=== PATIENT | male | born 1940 | race Caucasian/White ===

== ENCOUNTER → 2017-05-16 | Outpatient (CLI) | payer MEDICARE ==
--- NOTE | 2017-05-16 14:39 | CT ---
EXAMINATION TYPE: CT chest wo con DATE OF EXAM: 05/16/2017 COMPARISON: Radiograph 05/09/2017 HISTORY: 76-year-old male complains of difficulty breathing. Pulmonary fibrosis. TECHNIQUE: Contiguous axial scanning of the chest without IV contrast. Coronal and sagittal reconstru ctions performed. CT DLP: 835 mGycm Automated exposure control for dose reduction was used. FINDINGS: Heterogeneous enlargement of the left lobe of the thyroid gland can be further assessed with thyroid ultrasound. Heart is normal size without pericardial effusion. Trace coronary vessel calcifications are present. Ectatic ascending aorta 3.9 cm. Mild atherosclerotic calcifications throughout the aorta with convent ional arch vessel branching anatomy. Ectatic upper descending thoracic aorta 3.4 cm. Large caliber to the main right and left pulmonary arteries 3.3 and 3.2 cm, respectively, suggests un derlying pulmonary arterial hypertension. Scattered nonenlarged mediastinal lymph nodes. No thoracic lymphadenopathy by CT size criteria. There is mild interstitial density especially in the subpleural regions of the lung bases and mild ba silar bronchiectasis. Strandy atelectasis or scarring is also present. Mild to moderate upper lung is seen. No consolidation or pleural effusion. No stacked honeycombing or dominant groundglass densities. Subcentimeter hypodensity central right hepatic dome. Some layering tiny calculi in the gallbladder. Tiny nonobstructive left renal calculi measuring up to 2 mm. Splenomegaly at 17.9 cm. Bones: Bridging anterior endplate spondylosis throughout the thoracic spine compatible with DISH. No osseous destructive process. IMPRESSION: 1. COPD WITH MILD TO MODERATE EMPHYSEMA. 2. MILD INTERSTITIAL FIBROTIC CHANGES AT THE LUNG BASES AND MINIMAL SCATTERED BASILAR BRONCHIECTASIS. FINDINGS MAY REPRESENT SEQUELA OF PRIOR EPISODES OF INFLAMMATION/INFECTION. 3. NO SPECIFIC CT FINDINGS OF UIP/IPF. 4. 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 5. TINY GALLSTONES, PUNCTATE NONOBSTRUCTIVE LEFT RENAL CALCULI, AND SPLENOMEGALY (17.9 CM).
== END | disposition home or self-care (01) ==
LOC: RADCTMAIN 11:50
PROVIDERS: ATTEND Internal Medicine
DX: J84.10 Pulmonary fibrosis, unspecified (principal); J43.9 Emphysema, unspecified; I27.20 Pulmonary hypertension, unspecified; I77.810 Thoracic aortic ectasia
CPT/HCPCS: 71250

== ENCOUNTER → 2017-11-11 | Outpatient (CLI) | payer MEDICARE ==
[2017-11-11 18:19] LABS: T4, Free (Free Thyroxine) 1.26 ng/dL (0.78-2.19)
--- NOTE | 2017-11-11 20:04 | CT ---
EXAMINATION TYPE: CT brain w con, CT iac w con DATE OF EXAM: 11/11/2017 COMPARISON: MRI brain April 26, 2011. MRI brain January 28, 2013. HISTORY: Hearing loss. Otalgia, right ear. CT DLP: 1242.07 (accession [id number]), 212.34 (accession [id number]) mGycm Automated exposure control for dose reduction was used. CONTRAST: CT scan of the brain and internal auditory canals are performed with IV Contrast, patient injected wi th 100 mL of Isovue M300. FINDINGS: There is no abnormal enhancing mass or midline shift identified. There is ventricular and sulcal prom inence.. There is low attenuation in the periventricular white matter. The globes are intact and the visualized sinuses are clear. The external auditory canals are patent bilaterally. Mastoid air cells show no persistent near compl ete opacification on the left and complete opacification on the right. The middle ear ossicles are u nremarkable on the left. There is evidence of suspicious surrounding soft tissue density to suggest cholesteatoma on the right. The stapes head is unusual increased dense appearance seen best on coron al image 44, has there been prior surgery at this level? The scutum is preserved bilaterally. The co chlea and the semicircular canals are symmetric and unremarkable. Vestibular aqueduct and internal c arotid canal appear unremarkable. Temporomandibular joints are maintained bilaterally. There is expansion and flattening of the left si ded mandibular condyle relative to the right side with slight anterior positioning. Visualized parana fabricio sinuses are grossly clear. Old fracture deformity medial wall left orbit is noted. Nasal septum r emains deviated to right of midline. No suspicious enhancement is seen. IMPRESSION: 1. Redemonstration of mild to moderate diffuse age-related cerebral atrophy and chronic small vessel ischemic change. No enhancing intraparenchymal mass is noted. 2. 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 Middle ear infection on the right is present, cannot exclude cholesteatoma. Suspect prior surgery at level of right-sided sta pes, correlate clinically.
--- NOTE | 2017-11-11 20:53 | CT ---
EXAMINATION TYPE: CT soft tissue neck w con DATE OF EXAM: 11/11/2017 HISTORY: Hearing loss. Otalgia, right ear. Neck pain. COMPARISON: NONE CT DLP: 713.83 mGycm. Automated Exposure Control for Dose Reduction was Utilized. TECHNIQUE: CT scan of the neck is performed with IV Contrast, patient injected with 100 mL of Isovue M300, axial images are obtained, coronal and sagittal reformatted images are reviewed. 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 Left thyroid is heterogeneous and enlarged. Visualized lung shows alveolar edema mild to moderate emphysematous diaz ge with diffuse groundglass opacity suggesting mild. Parotid/submandibular glands: No gross abnormality seen. Carotid/Vascular Structures: There is mild calcified plaque in right internal carotid artery shortly after bulb. No significant stenosis is evident. Mild calcified plaque supraclinoid segments is presen t bilaterally. There is codominant vertebrobasilar system. Osseous Structures: There is moderate to severe multilevel anterior spurring in the lower cervical sp ine. Multilevel uncovertebral and facet degenerative changes are present bilaterally. Posterior spur disc complex is effacing the anterior thecal sac at C6-C7 level. Other: No suspicious greater than 1 cm adenopathy is seen. Scattered subcentimeter lymph nodes are no bladimir bilaterally. IMPRESSION: No suspicious mass or adenopathy is noted in the neck.
== END | disposition home or self-care (01) ==
LOC: RADCTMAIN 17:22
PROVIDERS: ATTEND Otolaryngology
DX: G31.1 Senile degeneration of brain, not elsewhere classified (principal); I67.82 Cerebral ischemia; H66.91 Otitis media, unspecified, right ear; R22.1 Localized swelling, mass and lump, neck; E04.1 Nontoxic single thyroid nodule; R94.6 Abnormal results of thyroid function studies; R53.83 Other fatigue
CPT/HCPCS: 84439; 82565; 84443; 84520; 70481; 70491; 70460; 36415; Q9967

== ENCOUNTER → 2017-12-23 | Day surgery (SDC) | payer MEDICARE ==
[2017-12-19 11:12] VITALS: BMI 39.4
[~2017-12-23] MED LIST: LACTATED RINGERS 1,000 ML IV SCH; LIDOCAINE 1% 20 ML VIAL (10MG/ML) FOR IV START INTRADERMA PRN; PROPOFOL 10 MG/ML 20 ML VIAL IV ONE
[2017-12-23 09:27] VITALS: TEMP 96.6
--- NOTE | 2017-12-23 10:50 | P.GSHP ---
History of Present Illness H&P Date: 12/23/17 Chief Complaint: GERD, screening colonoscopy This a 77-year-old male referred from Dr. coon. Patient resents today for EGD and screening colonoscopy. He's had issues with GERD. Past Medical History Past Medical History: GERD/Reflux, Hyperlipidemia, Hypertension, Osteoarthritis (OA), Prostate Disorder Additional Past Medical History / Comment(s): tinnitus, hx kidney stones, History of Any Multi-Drug Resistant Organisms: None Reported Past Surgical History: Adenoidectomy, Ear Surgery, Heart Catheterization, Joint Replacement, Tonsillectomy Additional Past Surgical History / Comment(s): oral surgery, diana knee replacements, thyroid surgery, diana cataracts Past Anesthesia/Blood Transfusion Reactions: No Reported Reaction Smoking Status: Former smoker - Past Family History Father Family Medical History: Cancer, Congestive Heart Failure (CHF), Hypertension, Myocardial Infarction ([place]) Additional Family Medical History / Comment(s): AT AGE 84-[place] Mother Family Medical History: No Reported History Additional Family Medical History / Comment(s): MOM AT GE 60 MUSCULAR DYSTOPY Medications and Allergies Home Medications Medication Instructions Recorded Confirmed Type Aspirin 325 mg PO DAILY 10/30/13 12/23/17 History Cholecalciferol [Vitamin D3] 2,000 mg PO DAILY 10/30/13 12/23/17 History Losartan [Cozaar] 50 mg PO 1600 10/30/13 12/19/17 History Sertraline HCl [Zoloft] 200 mg PO 1600 10/30/13 12/23/17 History Simvastatin [Zocor] 10 mg PO 1600 10/30/13 12/23/17 History Temazepam [Restoril] 30 mg PO HS 10/30/13 12/23/17 History Esomeprazole Magnesium [NexIUM] 20 mg PO BID 11/25/13 12/19/17 History Multivitamins, Thera [Multivitamin] 1 tab PO DAILY 05/18/15 12/23/17 History Ibuprofen [Motrin] 600 mg PO Q6HR PRN #60 tab 05/19/15 12/23/17 Rx ? Prostate Med 1 tab PO DAILY 12/19/17 12/23/17 History Allergies Allergy/AdvReac Type Severity Reaction Status Date / Time acetaminophen Allergy Unknown Verified 12/19/17 11:03 [From Darvocet-N 100] hydrocodone bitartrate Allergy Anaphylaxis Verified 12/19/17 11:03 [From Vicodin] Penicillins Allergy Anaphylaxis Verified 12/19/17 11:03 propoxyphene napsylate Allergy Anaphylaxis Verified 12/19/17 11:03 [From Darvocet-N 100] tamsulosin HCl [From Flomax] Allergy Anaphylaxis Verified 12/19/17 11:03 Surgical - Exam Vital Signs Temp Pulse Resp BP Pulse Ox 96.6 F L 72 18 192/87 92 L 12/23/17 09:21 12/23/17 09:21 12/23/17 09:21 12/23/17 09:21 12/23/17 09:21 - General well developed, no distress - Eyes PERRL - ENT normal pinna - Neck no masses - Respiratory normal expansion - Cardiovascular Rhythm: regular - Abdomen Abdomen: soft, non tender Assessment and Plan Assessment: GERD. We'll perform EGD and screening colonoscopy.
[2017-12-23 11:12] VITALS: RESP 16
--- NOTE | 2017-12-23 11:21 | P.OP ---
Date of Procedure: 12/23/17 Preoperative Diagnosis: GERD Screening colonoscopy Postoperative Diagnosis: Antral gastritis No evidence of hiatal hernia No evidence of esophagitis Diverticulosis Procedure(s) Performed: EGD Colonoscopy Anesthesia: MAC Surgeon: Hardeep Montalvo Pathology: other (antrum) Description of Procedure: The patient was placed on the endoscopy table in the lateral position. He received IV sedation. The gastroscope was then placed oropharynx and passed in the esophagus and into the stomach. Scope was then placed through the pylorus. The first and second portion of the duodenum appeared normal. The scope was then brought back the antrum and this appeared mildly inflamed. A biopsy was performed. The scope was then retroflexed and the remainder of the stomach appeared normal. There is no evidence of a hiatal hernia. The GE junction was at 40 cm. The distal esophagus appeared normal. There is no evidence of esophagitis. The scope was then withdrawn and the proximal esophagus appeared normal. The scope was withdrawn for patient. Next digital rectal exam was performed the prostate was symmetric without nodules. There was no significant abnormalities. Flexible colonoscope was then placed patient anus and passed throughout the entire colon. The ileocecal valve was visualized.. The cecum, ascending and transverse colon appeared normal. In the descending and sigmoid colon there is moderate diverticulosis. The scope was then brought back the rectum and this appeared normal. Scope was withdrawn for patient.
[2017-12-23 11:31] VITALS: BP 155/87; PULSE 59
--- NOTE | 2017-12-23 14:49 | NM ---
Nuclear medicine hepatobiliary scan. HISTORY: Pain. DOSAGE: The patient received 2.9 micrograms of CCK and 3.3 mCi of Technetium 99m Choletec. FINDINGS: There is normal hepatic extraction. The gallbladder is seen by 20 minutes. There is bilia ry to bowel clearancenot seen at 60 minutes . Ejection fraction is 23%. IMPRESSION: 1. Delayed biliary to bowel clearance is nonspecific. 2. Ejection fraction of only 23% correlate for biliary dyskinesia.
== END | disposition home or self-care (01) ==
LOC: ORWHC2ENDO 09:07
PROVIDERS: ATTEND Surgery
DX: Z12.11 Encounter for screening for malignant neoplasm of colon (principal); K57.30 Diverticulosis of large intestine without perforation or abscess without bleeding; K29.50 Unspecified chronic gastritis without bleeding; K21.9 Gastro-esophageal reflux disease without esophagitis; E78.5 Hyperlipidemia, unspecified; I10 Essential (primary) hypertension; M19.90 Unspecified osteoarthritis, unspecified site; N42.9 Disorder of prostate, unspecified; Z87.442 Personal history of urinary calculi; H93.19 Tinnitus, unspecified ear; Z87.891 Personal history of nicotine dependence; Z79.82 Long term (current) use of aspirin; Z79.899 Other long term (current) drug therapy; Z88.5 Allergy status to narcotic agent; Z88.0 Allergy status to penicillin; Z88.8 Allergy status to other drugs, medicaments and biological substances
CPT/HCPCS: 88305; 78227; 43239; A9537; J2805; J2704; G0121; 45378

== ENCOUNTER 2018-01-17 07:51 | Day surgery (SDC) | payer MEDICARE ==
[2018-01-14 13:11] VITALS: BMI 40.4
[~2018-01-17 07:51] MED LIST changes: +CLINDAMYCIN 900 MG in DEXTROSE 5% IN WATER 50 ML IVPB ONE; +GENTAMICIN 520 MG in SODIUM CHLORIDE 0.9% 100 ML IVPB ONE; +HEPARIN SODIUM,PORCINE 5,000 UNIT/ML 1 ML VIAL SQ ONE; -LIDOCAINE 1% 20 ML VIAL (10MG/ML) FOR IV START INTRADERMA PRN; +ONDANSETRON 4 MG/2 ML VIAL IVP PRN; -PROPOFOL 10 MG/ML 20 ML VIAL IV ONE
[2018-01-17] MEDS ORDERED: LIDOCAINE 1% 20 ML VIAL (10MG/ML) FOR IV START INTRADERMA ONE (08:35)
--- NOTE | 2018-01-17 09:05 | P.GSHP ---
History of Present Illness H&P Date: 01/17/18 Chief Complaint: Right upper quadrant pain Cyst 77-year-old male referred from Dr. coon. Patient's has complaints of right upper quadrant pain. His recent HIDA scan shows a diminished ejection fraction consistent with chronic cholecystitis and biliary dysfunction. Past Medical History Past Medical History: GERD/Reflux, Hearing Disorder / Deafness, Hyperlipidemia, Hypertension, Osteoarthritis (OA), Prostate Disorder Additional Past Medical History / Comment(s): Tinnitus, Hx kidney stones, BPH, LUNG SCARRING. C/O STOMACH UPSET History of Any Multi-Drug Resistant Organisms: None Reported Past Surgical History: Adenoidectomy, Ear Surgery, Heart Catheterization, Joint Replacement, Tonsillectomy Additional Past Surgical History / Comment(s): oral surgery, diana knee replacements, thyroid surgery, diana cataracts. EGD, COLONOSCOPY 12/23/17 Past Anesthesia/Blood Transfusion Reactions: No Reported Reaction Smoking Status: Former smoker - Past Family History Father Family Medical History: Cancer, Congestive Heart Failure (CHF), Hypertension, Myocardial Infarction ([place]) Additional Family Medical History / Comment(s): AT AGE 84-[place] Mother Family Medical History: No Reported History Additional Family Medical History / Comment(s): MOM AT GE 60 MUSCULAR DYSTOPY Medications and Allergies Home Medications Medication Instructions Recorded Confirmed Type Aspirin 325 mg PO DAILY 10/30/13 01/17/18 History Losartan [Cozaar] 50 mg PO 1600 10/30/13 01/17/18 History Sertraline HCl [Zoloft] 200 mg PO 1600 10/30/13 01/17/18 History Simvastatin [Zocor] 10 mg PO 1600 10/30/13 01/17/18 History Temazepam [Restoril] 30 mg PO HS 10/30/13 01/17/18 History Esomeprazole Magnesium [NexIUM] 20 mg PO BID 11/25/13 01/17/18 History Multivitamins, Thera [Multivitamin] 1 tab PO DAILY 05/18/15 01/17/18 History Ibuprofen [Motrin] 600 mg PO Q6HR PRN #60 tab 05/19/15 01/17/18 Rx Acetaminophen Tab [Tylenol Tab] 650 mg PO Q4H PRN 01/14/18 01/17/18 History Alfuzosin HCl [Uroxatral ER] 10 mg PO DAILY 01/14/18 01/17/18 History Allergies Allergy/AdvReac Type Severity Reaction Status Date / Time hydrocodone bitartrate Allergy Anaphylaxis Verified 01/17/18 08:39 [From Vicodin] Penicillins Allergy Anaphylaxis Verified 01/17/18 08:39 propoxyphene napsylate Allergy Anaphylaxis Verified 01/17/18 08:39 [From Darvocet-N 100] tamsulosin HCl [From Flomax] Allergy Anaphylaxis Verified 01/17/18 08:39 Surgical - Exam Vital Signs Temp Pulse Resp BP Pulse Ox 98.0 F 63 16 159/72 96 01/17/18 08:13 01/17/18 08:13 01/17/18 08:13 01/17/18 08:13 01/17/18 08:13 - General well developed, no distress - Eyes PERRL - ENT normal pinna - Neck no masses - Respiratory normal expansion - Cardiovascular Rhythm: regular - Abdomen Abdomen: soft, non tender Assessment and Plan Assessment: Right upper quadrant pain Biliary dysfunction We'll perform laparoscopic cholecystectomy.
[2018-01-17] MEDS ORDERED: SUCCINYLCHOLINE CHLORIDE VIAL 200 MG/10 ML VIAL IV ONE (09:18)
[2018-01-17] MEDS ORDERED: GLYCOPYRROLATE 0.2 MG/ML 2 ML VIAL ONE (09:18)
[2018-01-17] MEDS ORDERED: MIDAZOLAM 2 MG/2 ML VIAL ONE (09:18)
[2018-01-17] MEDS ORDERED: LIDOCAINE 1% INJ 10MG/ML (20 ML MDV) ONE (09:18)
[2018-01-17] MEDS ORDERED: fentaNYL (PF) 50 MCG/ML 2 ML AMP ONE (09:18)
[2018-01-17] MEDS ORDERED: ROCURONIUM BROMIDE 10 MG/ML 10 ML VIAL IV ONE (09:18)
[2018-01-17] MEDS ORDERED: NEOSTIGMINE 1 MG/ML 10 ML VIAL ONE (09:18)
[2018-01-17] MEDS ORDERED: PROPOFOL 10 MG/ML 20 ML VIAL IV ONE (09:18)
[2018-01-17] MEDS ORDERED: BUPIVACAIN-EPI 0.25%-1:200,000 30 ML VIAL SQ ONE (09:42)
--- NOTE | 2018-01-17 10:01 | P.OP ---
Date of Procedure: 01/17/18 Preoperative Diagnosis: Cholecystitis Postoperative Diagnosis: Cholecystitis Procedure(s) Performed: Laparoscopic cholecystectomy Anesthesia: JED Surgeon: Hardeep Montalvo Estimated Blood Loss (ml): 5 Pathology: other (Gallbladder) Condition: stable Disposition: PACU Description of Procedure: The patient was placed on the operating table. The patient received a general endotracheal tube anesthesia. The patients abdomen was prepped and draped in the usual sterile fashion. Through an infraumbilical stab incision, the fascia of the anterior abdominal wall was grasped with a pair of Kochers and then the Veress needle was placed in the peritoneal cavity. Position of the Veress needle was confirmed with positive drop test. The abdomen was then insufflated. After adequate insufflation, the 10 mm trocar was placed in the peritoneal cavity. Following this the laparoscope was placed in the peritoneal cavity. The patient was placed in the head-up, right side up position and then a 5 mm trocar was placed in the right lateral and right subcostal position under direct visualization. A 8 mm trocar was placed in the epigastric position. The gallbladder was grasped in the fundus and infundibulum. Traction on the gallbladder was placed in the lateral and the cephalad positions. The triangle of Calot was visualized.. The cystic duct was bluntly dissected until the union of the cystic duct and common bile duct was seen. The cystic duct was then divided and sealed with the Harmonic scissors. A PDS Endoloop was then placed throughout the cystic duct stump. The cystic artery divided and sealed with the Harmonic scissors. The gallbladder was then removed from the liver bed using Harmonic scissors. The gallbladder was then extracted through the epigastric port site. Operative field was checked for any bleeding spots and Harmonic scissors was used to coagulate the liver bed. The abdomen was irrigated. The trocars were removed. The skin was closed using interrupted 3-0 Vicryl suture. Dermabond dressing were applied. The patient tolerated the procedure well.
[2018-01-17 10:17] VITALS: TEMP 97.9
[2018-01-17] MEDS: MORPHINE SULFATE 2 MG/ML SYRINGE IV PRN ×4 (10:23→11:12)
[2018-01-17 10:48] VITALS: RESP 16
[2018-01-17] MEDS ORDERED: LACTATED RINGERS 1,000 ML IV ONE ×2 (10:52)
[2018-01-17 12:03] VITALS: BP 120/53; PULSE 60
== END 2018-01-17 13:05 | disposition home or self-care (01) ==
LOC: OR 07:51
PROVIDERS: ATTEND Surgery
DX: K80.10 Calculus of gallbladder with chronic cholecystitis without obstruction (principal); E78.5 Hyperlipidemia, unspecified; H91.90 Unspecified hearing loss, unspecified ear; I10 Essential (primary) hypertension; K21.9 Gastro-esophageal reflux disease without esophagitis; K82.8 Other specified diseases of gallbladder; M19.90 Unspecified osteoarthritis, unspecified site; N40.0 Benign prostatic hyperplasia without lower urinary tract symptoms; Z79.82 Long term (current) use of aspirin; Z87.442 Personal history of urinary calculi; Z87.891 Personal history of nicotine dependence; Z88.0 Allergy status to penicillin; Z88.5 Allergy status to narcotic agent; Z96.653 Presence of artificial knee joint, bilateral; Z80.9 Family history of malignant neoplasm, unspecified; Z82.49 Family history of ischemic heart disease and other diseases of the circulatory system; Z79.1 Long term (current) use of non-steroidal anti-inflammatories (NSAID); Z79.899 Other long term (current) drug therapy
CPT/HCPCS: 88304; 47562; J2250; J0330; J1644; J2710; J2405; J2001; J3010; J1580; J2270; J2704

== ENCOUNTER 2018-06-10 18:46 | Inpatient (IN) | payer MEDICARE ==
[2018-06-10] MEDS ORDERED: SODIUM CHLORIDE 0.9% 1,000 ML IV STA (18:58)
[2018-06-10] MEDS ORDERED: IPRATROPIUM-ALBUTEROL 3 ML NEB INHALATION STA (18:58)
[2018-06-10] MEDS ORDERED: DILTIAZEM DRIP BOLUS FROM BAG 1 MG SOLN IV ONE ×2 (19:22→20:15)
--- NOTE | 2018-06-10 19:26 | ED ---
SOB HPI - General Chief Complaint: Shortness of Breath Stated Complaint: Sob Time Seen by Provider: 06/10/18 18:57 Source: patient, RN notes reviewed, old records reviewed Mode of arrival: ambulatory Limitations: no limitations - History of Present Illness Initial Comments: This is a 77-year-old male the ER for evaluation presents today for evaluation o f shortness of breath. Patient is had increasing shortness of breath for a few days now. Now found to have elevated heart rate. Patient has no pain. No fevers. No recent change in medications. Patient states his shortness breath is increased., No recent change in medications MD Complaint: shortness of breath, cough, anxiety -: minutes(s) Radiation: other (No pain) Severity: mild Consistency: constant Improves With: oxygen Worsens With: lying flat Known History Of: COPD, congestive heart failure Associated Symptoms: palpitations - Related Data Home Medications Medication Instructions Recorded Confirmed Losartan [Cozaar] 50 mg PO DAILY 10/30/13 06/10/18 Sertraline HCl [Zoloft] 200 mg PO DAILY 10/30/13 06/10/18 Simvastatin [Zocor] 10 mg PO DAILY 10/30/13 06/10/18 Temazepam [Restoril] 30 mg PO HS 10/30/13 06/10/18 Alfuzosin HCl [Uroxatral ER] 10 mg PO DAILY 01/14/18 06/10/18 ALPRAZolam [Xanax] 0.5 mg PO DAILY 06/10/18 06/10/18 Aspirin [[place] Aspirin EC] 81 mg PO DAILY 06/10/18 06/10/18 Cholecalciferol [Vitamin D3] 1,000 unit PO DAILY 06/10/18 06/10/18 Mirabegron [Myrbetriq] 25 mg PO DAILY 06/10/18 06/10/18 Previous Rx's Medication Instructions Recorded Ibuprofen [Motrin] 600 mg PO Q6HR PRN #60 tab 05/19/15 Allergies Allergy/AdvReac Type Severity Reaction Status Date / Time hydrocodone bitartrate Allergy Anaphylaxis Verified 06/10/18 19:19 [From Vicodin] Penicillins Allergy Anaphylaxis Verified 06/10/18 19:19 propoxyphene napsylate Allergy Anaphylaxis Verified 06/10/18 19:19 [From Darvocet-N 100] tamsulosin HCl [From Flomax] Allergy Anaphylaxis Verified 06/10/18 19:19 Review of Systems ROS Statement: Those systems with pertinent positive or pertinent negative responses have been documented in the HPI. ROS Other: All systems not noted in ROS Statement are negative. Past Medical History Past Medical History: GERD/Reflux, Hearing Disorder / Deafness, Hyperlipidemia, Hypertension, Osteoarthritis (OA), Prostate Disorder Additional Past Medical History / Comment(s): Tinnitus, Hx kidney stones, BPH, LUNG SCARRING. C/O STOMACH UPSET History of Any Multi-Drug Resistant Organisms: None Reported Past Surgical History: Adenoidectomy, Ear Surgery, Heart Catheterization, Joint Replacement, Tonsillectomy Additional Past Surgical History / Comment(s): oral surgery, diana knee replacements, thyroid surgery, diana cataracts. EGD, COLONOSCOPY 12/23/17 Past Anesthesia/Blood Transfusion Reactions: No Reported Reaction Past Psychological History: Depression Smoking Status: Former smoker Past Alcohol Use History: None Reported Past Drug Use History: None Reported - Past Family History Father Family Medical History: Cancer, Congestive Heart Failure (CHF), Hypertension, Myocardial Infarction ([place]) Additional Family Medical History / Comment(s): AT AGE 84-[place] Mother Family Medical History: No Reported History Additional Family Medical History / Comment(s): MOM AT GE 60 MUSCULAR DYSTOPY General Exam Limitations: no limitations General appearance: alert, in no apparent distress, anxious Head exam: Present: atraumatic, normocephalic, normal inspection Eye exam: Present: normal appearance, PERRL, EOMI. Absent: scleral icterus, conjunctival injection, periorbital swelling ENT exam: Present: normal exam, mucous membranes moist Neck exam: Present: normal inspection. Absent: tenderness, meningismus, lymphadenopathy Respiratory exam: Present: normal lung sounds bilaterally. Absent: respiratory distress, wheezes, rales, rhonchi, stridor Cardiovascular Exam: Present: tachycardia, irregular rhythm, normal heart sounds. Absent: systolic murmur, diastolic murmur, rubs, gallop, clicks GI/Abdominal exam: Present: soft, normal bowel sounds. Absent: distended, tenderness, guarding, rebound, rigid Extremities exam: Present: normal inspection, full ROM, normal capillary refill. Absent: tenderness, pedal edema, joint swelling, calf tenderness Back exam: Present: normal inspection Neurological exam: Present: alert, oriented X3, CN II-XII intact Psychiatric exam: Present: normal affect, normal mood Skin exam: Present: warm, dry, intact, normal color. Absent: rash Course Vital Signs 06/10/18 06/10/18 06/10/18 18:48 18:58 19:19 Temperature 97.9 F Pulse Rate 68 121 H Respiratory 18 18 Rate Blood Pressure 138/63 O2 Sat by Pulse 96 Oximetry 06/10/18 06/10/18 19:28 20:17 Temperature Pulse Rate 128 H 107 H Respiratory 22 Rate Blood Pressure 125/71 O2 Sat by Pulse 95 Oximetry - Reevaluation(s) Reevaluation #1: 06/10/18 20:00 Medical record is reviewed Reevaluation #2: 06/10/18 20:00 Patient is improving with heart rate control and breathing treatment Medical Decision Making - Medical Decision Making 77 male the ER for evaluation. Patient does say for evaluation shortness of breath, patient does have atrial fibrillation xwith RVR CHF, will admit for cardiology evaluation as well as Lasix - Lab Data Result diagrams: 06/10/18 19:14 06/10/18 19:14 Lab Results 06/10/18 06/10/18 06/10/18 Range/Units 19:14 19:14 19:14 WBC 4.8 (3.8-10.6) k/uL RBC 4.18 L (4.30-5.90) m/uL Hgb 13.4 (13.0-17.5) gm/dL Hct 42.2 (39.0-53.0) % MCV 101.0 H (80.0-100.0) fL MCH 31.9 (25.0-35.0) pg MCHC 31.6 (31.0-37.0) g/dL RDW 14.7 (11.5-15.5) % Plt Count 114 L (150-450) k/uL Neutrophils % (Manual) 70 % Lymphocytes % (Manual) 22 % Monocytes % (Manual) 7 % Eosinophils % (Manual) 1 % Neutrophils # (Manual) 3.36 (1.3-7.7) k/uL Lymphocytes # (Manual) 1.06 (1.0-4.8) k/uL Monocytes # (Manual) 0.34 (0-1.0) k/uL Eosinophils # (Manual) 0.05 (0-0.7) k/uL Nucleated RBCs 0 (0-0) /100 WBC Manual Slide Review Performed Large Platelets Present Hypochromasia Slight Macrocytosis Slight PT (9.0-12.0) sec INR (<1.2) APTT (22.0-30.0) sec Sodium 140 (137-145) mmol/L Potassium 4.7 (3.5-5.1) mmol/L Chloride 110 H (98-107) mmol/L Carbon Dioxide 21 L (22-30) mmol/L Anion Gap 9 mmol/L BUN 22 H (9-20) mg/dL Creatinine 0.99 (0.66-1.25) mg/dL Est GFR (CKD-EPI)AfAm 85 (>60 ml/min/1.73 sqM) Est GFR (CKD-EPI)NonAf 74 (>60 ml/min/1.73 sqM) Glucose 95 (74-99) mg/dL Calcium 9.4 (8.4-10.2) mg/dL Magnesium 1.6 (1.6-2.3) mg/dL Total Bilirubin 1.4 H (0.2-1.3) mg/dL AST 28 (17-59) U/L ALT 30 (21-72) U/L Alkaline Phosphatase 54 (38-126) U/L Troponin I (0.000-0.034) ng/mL NT-Pro-B Natriuret Pep 2820 pg/mL Total Protein 6.5 (6.3-8.2) g/dL Albumin 4.4 (3.5-5.0) g/dL 06/10/18 06/10/18 Range/Units 19:14 19:14 WBC (3.8-10.6) k/uL RBC (4.30-5.90) m/uL Hgb (13.0-17.5) gm/dL Hct (39.0-53.0) % MCV (80.0-100.0) fL MCH (25.0-35.0) pg MCHC (31.0-37.0) g/dL RDW (11.5-15.5) % Plt Count (150-450) k/uL Neutrophils % (Manual) % Lymphocytes % (Manual) % Monocytes % (Manual) % Eosinophils % (Manual) % Neutrophils # (Manual) (1.3-7.7) k/uL Lymphocytes # (Manual) (1.0-4.8) k/uL Monocytes # (Manual) (0-1.0) k/uL Eosinophils # (Manual) (0-0.7) k/uL Nucleated RBCs (0-0) /100 WBC Manual Slide Review Large Platelets Hypochromasia Macrocytosis PT 10.7 (9.0-12.0) sec INR 1.0 (<1.2) APTT 23.3 (22.0-30.0) sec Sodium (137-145) mmol/L Potassium (3.5-5.1) mmol/L Chloride (98-107) mmol/L Carbon Dioxide (22-30) mmol/L Anion Gap mmol/L BUN (9-20) mg/dL Creatinine (0.66-1.25) mg/dL Est GFR (CKD-EPI)AfAm (>60 ml/min/1.73 sqM) Est GFR (CKD-EPI)NonAf (>60 ml/min/1.73 sqM) Glucose (74-99) mg/dL Calcium (8.4-10.2) mg/dL Magnesium (1.6-2.3) mg/dL Total Bilirubin (0.2-1.3) mg/dL AST (17-59) U/L ALT (21-72) U/L Alkaline Phosphatase (38-126) U/L Troponin I 0.012 (0.000-0.034) ng/mL NT-Pro-B Natriuret Pep pg/mL Total Protein (6.3-8.2) g/dL Albumin (3.5-5.0) g/dL - EKG Data -: EKG Interpreted by Me (EKG shows A. fib with RVR rate 121, QRS 100, QTC is 423) - Radiology Data Radiology results: report reviewed (CXR positive for CHF), image reviewed Critical Care Time Critical Care Time: Yes Total Critical Care Time: 31 Disposition Clinical Impression: Atrial fibrillation with RVR, Acute pulmonary edema, Congestive heart failure Disposition: ADMITTED IP TO THIS HOSP Condition: Fair Is patient prescribed a controlled substance at d/c from ED?: No Referrals: Juan C Beltran MD [Primary Care Provider] - 1-2 days
[2018-06-10] MEDS ORDERED: DILTIAZEM 125 MG in SODIUM CHLORIDE 0.9% 100 ML IV SCH (19:30)
[2018-06-10 19:37] LABS: Albumin 4.4 g/dL (3.5-5.0); Calcium 9.4 mg/dL (8.4-10.2); Magnesium 1.6 mg/dL (1.6-2.3); Potassium 4.7 mmol/L (3.5-5.1); Total Bilirubin 1.4 mg/dL (0.2-1.3); Total Protein 6.5 g/dL (6.3-8.2)
[2018-06-10 19:48] LABS: HCT 42.2 % (39.0-53.0); HGB 13.4 gm/dL (13.0-17.5); Hypochromasia Slight; MCH 31.9 pg (25.0-35.0); MCHC 31.6 g/dL (31.0-37.0); Macrocytosis Slight; Mean Platelet Volume 9.3; Platelet Count 114 k/uL (150-450); RBC 4.18 m/uL (4.30-5.90); RDW 14.7 % (11.5-15.5); WBC 4.8 k/uL (3.8-10.6)
[2018-06-10 19:52] LABS: Partial Thromboplastin Time 23.3 sec (22.0-30.0); Prothrombin Time 10.7 sec (9.0-12.0)
--- NOTE | 2018-06-10 20:10 | XR ---
EXAMINATION: XR chest 2V DATE AND TIME: 06/10/2018 7:52 PM CLINICAL INDICATION: PHH; difficulty breathing TECHNIQUE: Departmental protocol COMPARISON: 10/30/2013 FINDINGS: The overlying soft tissues are prominent. Lungs are clear as seen. The pleural spaces are negative. The cardiac silhouette is moderately enlarged, similar to the prior study. The skeletal structures and soft tissues are negative for acute findings. IMPRESSION: NO DEFINITE ACUTE PROCESS.
[2018-06-10 20:11] LABS: Eosinophils # (M) 0.05 k/uL (0-0.7); Lymphocytes # (M) 1.06 k/uL (1.0-4.8); Monocytes # (M) 0.34 k/uL (0-1.0); Neutrophils # (M) 3.36 k/uL (1.3-7.7); Neutrophils % (M) 70 %; Nucleated Red Blood Cells 0 /100 WBC (0-0); Total Cells Counted 100
[2018-06-10 20:12] LABS: Large Platelets Present
[2018-06-10] MEDS ORDERED: NITROGLYCERIN SL TABS 0.4 MG TAB SUBLINGUAL PRN (20:33)
[2018-06-10] MEDS ORDERED: HEPARIN SODIUM,PORCINE 5,000 UNIT/ML 1 ML VIAL IV ONE (20:33)
[2018-06-10] MEDS ORDERED: HEPARIN SODIUM,PORCINE 5,000 UNIT/ML 1 ML VIAL IV PRN (20:33)
[2018-06-10] MEDS ORDERED: IPRATROPIUM-ALBUTEROL 3 ML NEB INHALATION PRN (20:34)
[2018-06-10] MEDS ORDERED: HEPARIN SOD,PORK IN 0.45% NACL 25,000 UNIT in 0.45% NACL 1 250ML.BAG IV SCH (20:45)
[2018-06-10 22:49] VITALS: BMI 39.8
[2018-06-10] MEDS: FUROSEMIDE 10 MG/ML 4 ML VIAL IV SCH (23:11)
[2018-06-11 06:06] LABS: Platelet Count 111 k/uL (150-450)
[2018-06-11 06:28] LABS: Cholesterol 109 mg/dL (<200); HDL Cholesterol 61 mg/dL (40-60); LDL Cholesterol,Calculated 39 mg/dL (0-99); Triglycerides 46 mg/dL (<150)
[2018-06-11] MEDS: SERTRALINE 100 MG TAB PO SCH (08:55)
[2018-06-11] MEDS: ASPIRIN 325 MG TAB PO SCH (08:55)
[2018-06-11] MEDS: CHOLECALCIFEROL 1,000 UNIT TAB PO SCH (08:55)
[2018-06-11] MEDS: ATORVASTATIN 10 MG TAB PO SCH (08:55)
[2018-06-11] MEDS: ALFUZOSIN HCL 10 MG PO SCH (08:56)
[2018-06-11] MEDS: ALPRAZolam 0.5 MG TAB PO SCH (08:56)
[2018-06-11] MEDS: FUROSEMIDE 10 MG/ML 4 ML VIAL IV SCH ×2 (08:56→19:56)
[2018-06-11] MEDS: Mirabegron [Myrbetriq] 25 MG PO SCH (08:57)
[2018-06-11] MEDS ORDERED: LOSARTAN 50 MG TAB PO SCH (09:00)
--- NOTE | 2018-06-11 10:37 | ECHOF ---
Referral Reason:chf MEASUREMENTS -------- HEIGHT: 182.9 cm WEIGHT: 144.2 kg BP: 144/90 RVIDd: 3.2 cm (< 3.3) IVSd: 1.3 cm (0.6 - 1.1) LVIDd: 5.9 cm (3.9 - 5.3) LVPWd: 1.7 cm (0.6 - 1.1) IVSs: 1.3 cm LVIDs: 6.1 cm LVPWs: 2.4 cm LA Diam: 5.4 cm (2.7 - 3.8) LAESV Index (A-L): 50.81 ml/m Ao Diam: 4.0 cm (2.0 - 3.7) AV Cusp: 1.6 cm (1.5 - 2.6) LA Diam: 5.2 cm (2.7 - 3.8) MV EXCURSION: 25.141 mm (> 18.000) MV EF SLOPE: 108 mm/s (70 - 150) EPSS: 2.2 cm MV E Vishnu: 0.72 m/s MV DecT: 220 ms MV A Vishnu: 0.02 m/s MV E/A Ratio: 29.91 AR PHT: 429 ms RAP: 5.00 mmHg RVSP: 40.35 mmHg FINDINGS -------- Atrial fibrillation. Morbid Obesity The left ventricular size is normal. Left ventricular wall thickness is normal. Overall left vent ricular systolic function is mildly impaired with, an EF between 45 - 50 %. The right ventricle is normal in size. The left atrium is markedly dilated. LA is severely dilated >40 ml/m2 The right atrial size is normal. Interatrial and interventricular septum intact. There is mild aortic regurgitation. Mild mitral annular calcification present. Mild mitral regurgitation is present. Mild tricuspid regurgitation present. There is mild pulmonary hypertension. The right ventricular systolic pressure, as measured by Doppler, is 40.35mmHg. Trace/mild (physiologic) pulmonic regurgitation. The aortic root size is normal. Normal inferior vena cava with normal inspiratory collapse consistent with estimated right atrial pre ssure of 5 mmHg. There is no pericardial effusion. CONCLUSIONS -------- 1. Atrial fibrillation. 2. Morbid Obesity 3. The left ventricular size is normal. 4. Left ventricular wall thickness is normal. 5. The right ventricle is normal in size. 6. The left atrium is markedly dilated. 7. LA is severely dilated >40 ml/m2 8. The right atrial size is normal. 9. Interatrial and interventricular septum intact. 10. There is mild aortic regurgitation. 11. Mild mitral annular calcification present. 12. Mild mitral regurgitation is present. 13. Mild tricuspid regurgitation present. 14. There is mild pulmonary hypertension. 15. The right ventricular systolic pressure, as measured by Doppler, is 40.35mmHg. 16. Trace/mild (physiologic) pulmonic regurgitation. 17. The aortic root size is normal. 18. Normal inferior vena cava with normal inspiratory collapse consistent with estimated right atrial pressure of 5 mmHg. 19. There is no pericardial effusion. POWER OPERATOR: Rabia Cifuentes RDCS
[2018-06-11] MEDS: METOPROLOL TARTRATE 50 MG TAB PO SCH ×2 (10:48→19:59)
[2018-06-11] MEDS: APIXABAN 5 MG TAB PO SCH ×2 (10:49→20:00)
--- NOTE | 2018-06-11 11:11 | CONS ---
CONSULTATION This is a 77-year-old gentleman with history of hypertension and dyslipidemia who presented to hospital complaining of sustained palpitations. The palpitations have been going on for the last 3 days. He came to the ER and was found to be in atrial fibrillation with rapid ventricular rate, rate for which he is admitted to hospital and Cardiology had been consulted. He denies chest pain, difficulty in breathing, dizziness, syncope, or focal neurological deficits. EKG shows atrial fibrillation with rapid ventricular rate. Three sets of cardiac enzymes are negative. TSH is normal. At the time of my evaluation this morning he remains in atrial fibrillation with controlled ventricular rate on intravenous Cardizem. PAST MEDICAL HISTORY: Past medical history is significant for hypertension and dyslipidemia. MEDICATIONS: Medications include Restoril, Zoloft, Cozaar, Zocor, aspirin, Xanax, and Uroxatral. ALLERGIES: Patient is allergic to VICODIN, PENICILLIN, DARVOCET, and FLOMAX. FAMILY HISTORY: Family history is negative for premature coronary artery disease. SOCIAL HISTORY: Social history is negative for smoking, EtOH abuse, or drug abuse. REVIEW OF SYSTEMS: HEENT is unremarkable. CARDIAC: As described above. RESPIRATORY: Negative. GI: Negative. GENITOURINARY: Negative. ALLERGY/IMMUNOLOGY: Negative. SKIN: Negative. MUSCULOSKELETAL: Significant for arthritis. PSYCHOSOCIAL: Negative. ENDOCRINE: Negative. HEMATOLOGICAL: Negative. DERM: Negative. CONSTITUTIONAL: Negative. ONCOLOGICAL: Negative. Rest of the system review is not relevant. PHYSICAL EXAMINATION: On exam, patient is afebrile. Heart rate is 83 beats per minute. Blood pressure is 140/77. Respiratory rate is 18. O2 sat is 92% on room air. There is no jugular venous distention. Carotid upstroke is normal. There is no bruit. Chest exam reveals good air entry bilaterally. There are no crackles or rhonchi. Heart exam reveals first and second heart sounds. Irregular rhythm. No murmur. Abdomen is soft. Examination of the extremities did not reveal any edema. Peripheral pulses are felt. LABS: Labs show that 3 sets of troponins are negative. LDL cholesterol is 39. Potassium is 4.7. Hemoglobin is 13.4. BNP is elevated at 2820. ASSESSMENT: 1. Persistent atrial fibrillation with rapid ventricular rate. 2. Elevated BNP. Patient is not in congestive heart failure. 3. Hypertension. 4. Dyslipidemia. PLAN: I am going to continue the IV heparin. If the patient is covered for Eliquis, he will be switched to Eliquis 5 b.i.d. Stop the Cardizem and start the patient on metoprolol 50 b.i.d. Once heart rate is well controlled, patient will be discharged home and he will need an outpatient GENARO and cardioversion after 3 weeks of anticoagulation. JASPAL / JAMI: [id number] /
--- NOTE | 2018-06-11 11:27 | P.HPIM ---
History of Present Illness H&P Date: 06/11/18 This is a 77-year-old male patient who presented to the hospital with complaints of shortness of breath for 3 days. Patient reports that he was very easily winded at home and progressively increased over this 3 days. Seated on admission showing atrial fibrillation with rapid ventricular response with premature ventricular rate or aberrantly conducted complexes. Patient's BNP elevated at 2820. Chest x-ray completed showing no definitive acute process. Patient does have a past medical history of GERD, hearing disorder, hyperlipidemia, hypertension, osteoarthritis, prostate disorder and ex-smoker. Patient was started on Cardizem and heparin drip. Troponins negative 3. Patient started on Lasix 40 mg every 12 hours. Cardiology and pulmonary services have been consulted. At this time patient's heart rate improved. Patient reports he feels much improved with decreased heart rate. Patient denies chest pain or shortness of breath at this time. Patient denies nausea vomiting or diarrhea. Patient denies any urinary burning or frequency. Review of Systems please refer to HPI otherwise unremarkable Past Medical History Past Medical History: GERD/Reflux, Hearing Disorder / Deafness, Hyperlipidemia, Hypertension, Osteoarthritis (OA), Prostate Disorder Additional Past Medical History / Comment(s): Tinnitus, Hx kidney stones, BPH, LUNG SCARRING. C/O STOMACH UPSET History of Any Multi-Drug Resistant Organisms: None Reported Past Surgical History: Adenoidectomy, Ear Surgery, Heart Catheterization, Joint Replacement, Tonsillectomy Additional Past Surgical History / Comment(s): oral surgery, diana knee replacem ents, thyroid surgery, diana cataracts. EGD, COLONOSCOPY 12/23/17 Past Anesthesia/Blood Transfusion Reactions: No Reported Reaction Past Psychological History: Depression Smoking Status: Former smoker Past Alcohol Use History: Daily Additional Past Alcohol Use History / Comment(s): quit smoking 1986, started smoking age 17. COUPLE BEERS DAILY Past Drug Use History: None Reported - Past Family History Father Family Medical History: Cancer, Congestive Heart Failure (CHF), Hypertension, Myocardial Infarction ([place]) Additional Family Medical History / Comment(s): AT AGE 84-[place] Mother Family Medical History: No Reported History Additional Family Medical History / Comment(s): MOM AT GE 60 MUSCULAR DYSTO PY Medications and Allergies Home Medications Medication Instructions Recorded Confirmed Type Losartan [Cozaar] 50 mg PO DAILY 10/30/13 06/10/18 History Sertraline HCl [Zoloft] 200 mg PO DAILY 10/30/13 06/10/18 History Simvastatin [Zocor] 10 mg PO DAILY 10/30/13 06/10/18 History Temazepam [Restoril] 30 mg PO HS 10/30/13 06/10/18 History Ibuprofen [Motrin] 600 mg PO Q6HR PRN #60 tab 05/19/15 06/10/18 Rx Alfuzosin HCl [Uroxatral ER] 10 mg PO DAILY 01/14/18 06/10/18 History ALPRAZolam [Xanax] 0.5 mg PO DAILY 06/10/18 06/10/18 History Aspirin [[place] Aspirin EC] 81 mg PO DAILY 06/10/18 06/10/18 History Cholecalciferol [Vitamin D3] 1,000 unit PO DAILY 06/10/18 06/10/18 History Mirabegron [Myrbetriq] 25 mg PO DAILY 06/10/18 06/10/18 History Allergies Allergy/AdvReac Type Severity Reaction Status Date / Time hydrocodone bitartrate Allergy Anaphylaxis Verified 06/10/18 19:19 [From Vicodin] Penicillins Allergy Anaphylaxis Verified 06/10/18 19:19 propoxyphene napsylate Allergy Anaphylaxis Verified 06/10/18 19:19 [From Darvocet-N 100] tamsulosin HCl [From Flomax] Allergy Anaphylaxis Verified 06/10/18 19:19 Physical Exam Vitals: Vital Signs Temp Pulse Pulse Resp BP BP Pulse Ox 06/11/18 07:40 98.5 F 83 20 142/77 92 L 06/11/18 04:27 97.5 F L 90 20 144/90 94 L 06/11/18 03:54 18 06/11/18 00:00 97.6 F 92 20 142/79 94 L 06/10/18 21:40 87 16 113/65 95 06/10/18 21:23 97.6 F 92 20 142/71 94 L 06/10/18 20:59 98 16 131/76 94 L 06/10/18 20:17 107 H 22 125/71 95 06/10/18 19:28 128 H 06/10/18 19:19 121 H 06/10/18 18:58 18 06/10/18 18:48 97.9 F 68 18 138/63 96 Intake and Output 06/10/18 06/11/18 06/11/18 22:59 06:59 14:59 Intake Total 69.507 120 Output Total 2375 1100 Balance -2303.344 -144 Intake: Intake, IV Titration 69.507 Amount Heparin Sod,Pork in 0.45% 69.507 NaCl 25,000 unit In 0.45 % NaCl 1 250ml.bag @ 6.89 UNITS/KG/HR 10.001 mls/ hr IV .Q24H [facility] Rx#: [id number] Oral 120 Output: Urine 2375 1100 Other: Voiding Method Toilet Weight 145.15 kg 144.5 kg Head normocephalic Neck supple Lungs clear to auscultation bilaterally no wheezing or crackles Heart irregular rate Abdomen is soft nontender nondistended positive bowel sounds no hepatosplenomeg michelet Extremities no edema Neuro alert and orientated to 3 Results CBC & Chem 7: 06/11/18 05:40 06/10/18 19:14 Labs: Abnormal Lab Results - Last 24 Hours (Table) 06/10/18 06/10/18 06/11/18 Range/Units 19:14 19:14 05:40 RBC 4.18 L (4.30-5.90) m/uL MCV 101.0 H (80.0-100.0) fL Plt Count 114 L 111 L (150-450) k/uL Chloride 110 H (98-107) mmol/L Carbon Dioxide 21 L (22-30) mmol/L BUN 22 H (9-20) mg/dL Total Bilirubin 1.4 H (0.2-1.3) mg/dL HDL Cholesterol (40-60) mg/dL 06/11/18 Range/Units 05:40 RBC (4.30-5.90) m/uL MCV (80.0-100.0) fL Plt Count (150-450) k/uL Chloride (98-107) mmol/L Carbon Dioxide (22-30) mmol/L BUN (9-20) mg/dL Total Bilirubin (0.2-1.3) mg/dL HDL Cholesterol 61 H (40-60) mg/dL Thrombosis Risk Factor Assmnt - Choose All That Apply Each Factor Represents 1 point: Obesity (BMI >25) Each Risk Factor Represents 3 Points: Age 75 years or older Thrombosis Risk Factor Assessment Total Risk Factor Score: 4 Thrombosis Risk Factor Assessment Level: Moderate Risk Assessment and Plan Assessment: 1. Shortness of breath likely related to A. fib with RVR. Chest x-ray completed showing no definitive acute process. Per my services have been consulted 2. Persistent atrial fibrillation with rapid ventricular response. Troponins negative 3 Patient started on Cardizem and heparin drip. Cardiology services consulted 2-D echo ordered. Eliquis has been initiated for anticoagulation. Metroprolol 50 mg twice a day added for rate control. Per cardiology patient will be discharged home and he will need an outpatient GENARO and cardioversion after 3 weeks of anticoagulation 3. Elevated BNP. Per cardiology patient is not in congestive heart failure. Patient is on IV Lasix 40 mg twice a day. 2D echo ordered 4. History of essential hypertension 5. Hyperlipidemia 6. Hearing disorder 7. History of GERD 8. History of osteoarthritis 9. History of prostate disorder DVT prophylaxis eliquis. GI prophylaxis Protonix Time with Patient: Greater than 30 (Greater than 60% of the total time spent in counseling and coordination of care. I performed an examination of the patient and discussed their management with the Nurse Practitioner. I have reviewed the Nurse Practitioner's notes and agree with the documented findings and plan of care)
[2018-06-11 11:55] LABS: Basophils % (A) 0 %; Eosinophils # (A) 0.1 k/uL (0-0.7); Eosinophils % (A) 2 %; HCT 40.4 % (39.0-53.0); HGB 12.8 gm/dL (13.0-17.5); Hypochromasia Moderate; Lymphocytes % (A) 20 %; MCH 32.3 pg (25.0-35.0); MCHC 31.6 g/dL (31.0-37.0); MCV 102.3 fL (80.0-100.0); Macrocytosis Slight; Mean Platelet Volume 9.5; Monocytes # (A) 0.3 k/uL (0-1.0); Monocytes % (A) 6 %; Neutrophils # (A) 3.4 k/uL (1.3-7.7); Neutrophils % (A) 70 %; Platelet Count 113 k/uL (150-450); RBC 3.95 m/uL (4.30-5.90); RDW 14.8 % (11.5-15.5); WBC 4.9 k/uL (3.8-10.6)
[2018-06-11 11:59] LABS: ALT 32 U/L (21-72); AST 19 U/L (17-59); Albumin 3.8 g/dL (3.5-5.0); Alkaline Phosphatase 56 U/L (38-126); Anion Gap 12 mmol/L; Blood Urea Nitrogen 21 mg/dL (9-20); Calcium 9.4 mg/dL (8.4-10.2); Carbon Dioxide 21 mmol/L (22-30); Chloride 109 mmol/L (98-107); Glucose 89 mg/dL (74-99); Sodium 142 mmol/L (137-145); Total Bilirubin 1.4 mg/dL (0.2-1.3); Total Protein 5.9 g/dL (6.3-8.2)
[2018-06-11] MEDS: IBUPROFEN 600 MG TAB PO PRN ×2 (12:36→20:00)
--- NOTE | 2018-06-11 16:59 | CONS ---
CONSULTATION This is a pulmonary/critical care consultation DATE OF SERVICE: 06/11/2018 REASON FOR CONSULTATION: Shortness of breath. HISTORY OF PRESENT ILLNESS: This is a very pleasant 77-year-old male who comes to the emergency room for evaluation of shortness of breath. He apparently has been having progressively worsening shortness of breath for a few days prior to admission. In addition, he was found to have elevated heart rate, he was actually found to have atrial fibrillation with RVR. He denies any chest pain or chest discomfort. There has been no recent changes in medications. Denies any fever, chills. Denies any nausea, vomiting or diarrhea. Denies any urinary complaints. He also denies any additional lung complaints such as cough, phlegm production, hemoptysis, etc. The patient does have a known history of COPD and congestive heart failure. MEDICATIONS: Reviewed. He is on Cozaar, Zoloft, Zocor, Restoril, Uroxatral, Xanax, aspirin, vitamin D3, Myrbetriq and Motrin. ALLERGIES: INCLUDE VICODIN, PENICILLIN, DARVOCET AND FLOMAX. MEDICAL HISTORY: Reviewed. It is positive for gastroesophageal reflux disease, deafness, hyperlipidemia, hypertension, DJD, CHF, possible COPD and BPH. He also suffers from tinnitus, kidney stones, and lung scarring. He has had previous asbestos exposure from working [place] the [place] and the patient was a previous tobacco user. SURGICAL HISTORY: Includes among other things adenoidectomy, ear surgery, heart catheterization, joint replacement, and tonsillectomy. Other surgery includes bilateral knee replacement, thyroid surgery, bilateral cataracts, EGD and colonoscopy. SOCIAL HISTORY: Positive for previous tobacco use. Denies any alcohol use or illicit drug use. FAMILY HISTORY: Positive for carcinoma, congestive heart failure, hypertension, myocardial infarction. There is also history of muscular dystrophy. REVIEW OF SYSTEMS: CONSTITUTIONAL: Negative. NEUROLOGIC: Negative. HEENT negative. CARDIOVASCULAR. Rapid heart rate, irregular heartbeat, palpitations. PULMONARY: Shortness of breath. GI: Negative. : negative. RHEUMATOLOGIC: Negative. IMMUNOLOGIC: Negative. ENDOCRINOLOGIC: Negative. PHYSICAL EXAMINATION: Current vital signs are reviewed. Temperature 98.5, heart rate 83, respiratory rate 20, blood pressure 142/77, mean 98, room air saturation between 92-94 percent. Appears in no acute distress. Not requiring any supplemental oxygen. HEENT examination is grossly unremarkable. Mucous membranes are moist. NECK: Supple. Full range of motion. No adenopathy or thyromegaly. Neck veins are flat. CARDIOVASCULAR EXAMINATION: Reveals irregular rhythm and rate. Heart rate about 83 beats per minute. It appears that he is in atrial fibrillation. Normal S1 and S2. No S3 or S4. No murmur noted. LUNGS: Bibasilar crackles. Breath sounds are diminished. No rhonchi. No wheezes. Breath sounds are equal bilaterally. ABDOMEN: Soft. Bowel sounds are heard. EXTREMITIES are intact. No cyanosis, clubbing, or edema. SKIN: Without rash. NEUROLOGIC: Examination is brief but nonfocal. X-RAY: In my opinion is consistent with some mild fluid overload. There is some interstitial edema, fluid in the minor fissure and small effusions. There is cardiomegaly. LABS: Reviewed. White count 4.9, hemoglobin 12.8, hematocrit 40.4, platelet count 113,000. PT, INR is normal. PTT is normal. Sodium and potassium normal. Chloride 109. CO2 21. BUN and creatinine were 21 and 0.95. Total bilirubin is 1.4. Total protein 5.9. Troponins were negative x3. N terminal proBNP 2820. TSH was 2.480. Medications are reviewed. The patient is currently on Lasix 40 mg IV push q.12 hours. DVT prophylaxis, updrafts and other usual medications. ASSESSMENT: 1. Shortness of breath, secondary to atrial fibrillation with RVR complicated by mild congestive heart failure. 2. History of chronic obstructive pulmonary disease from previous tobacco use, not currently active. 3. History of gastroesophageal reflux disease. 4. History of deafness. 5. History of hyperlipidemia. 6. History of hypertension. 7. Degenerative joint disease. 8. Benign prostatic hypertrophy. 9. History of kidney stones. 10.History of tinnitus. 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 PLAN: Patient looks relatively well. Medications reviewed. Primarily being managed by Cardiology for his atrial fibrillation, RVR. I believe he is in some mild heart failure. He is on Lasix 40 q12. We will continue to follow. Prognosis is guarded. COPD must be relatively mild and inactive at this time. MMODL / IJN: [id number] /
[2018-06-11] MEDS: TEMAZEPAM 30 MG CAP PO SCH (20:00)
[2018-06-12] MEDS: PANTOPRAZOLE 40 MG TABLET PO SCH (06:19)
[2018-06-12 07:18] LABS: Basophils % (A) 0 %; Eosinophils # (A) 0.2 k/uL (0-0.7); Eosinophils % (A) 2 %; HGB 13.9 gm/dL (13.0-17.5); Hypochromasia Slight; Lymphocytes # (A) 1.3 k/uL (1.0-4.8); Lymphocytes % (A) 20 %; MCH 32.9 pg (25.0-35.0); MCHC 32.3 g/dL (31.0-37.0); MCV 101.7 fL (80.0-100.0); Macrocytosis Slight; Mean Platelet Volume 8.7; Monocytes # (A) 0.4 k/uL (0-1.0); Monocytes % (A) 7 %; Neutrophils # (A) 4.3 k/uL (1.3-7.7); Neutrophils % (A) 69 %; Platelet Count 129 k/uL (150-450); RBC 4.23 m/uL (4.30-5.90); RDW 14.7 % (11.5-15.5); WBC 6.3 k/uL (3.8-10.6)
[2018-06-12 07:31] LABS: Albumin 4.3 g/dL (3.5-5.0); Calcium 9.3 mg/dL (8.4-10.2); Potassium 3.9 mmol/L (3.5-5.1); Total Bilirubin 1.6 mg/dL (0.2-1.3); Total Protein 6.4 g/dL (6.3-8.2)
[2018-06-12] MEDS: ALFUZOSIN HCL 10 MG PO SCH (08:04)
[2018-06-12] MEDS: CHOLECALCIFEROL 1,000 UNIT TAB PO SCH (08:15)
[2018-06-12] MEDS: DOCUSATE 100 MG CAP PO SCH (08:15)
[2018-06-12] MEDS: SERTRALINE 100 MG TAB PO SCH (08:15)
[2018-06-12] MEDS: ASPIRIN 325 MG TAB PO SCH (08:15)
[2018-06-12] MEDS: FUROSEMIDE 10 MG/ML 4 ML VIAL IV SCH (08:15)
[2018-06-12] MEDS: ALPRAZolam 0.5 MG TAB PO SCH (08:15)
[2018-06-12] MEDS: APIXABAN 5 MG TAB PO SCH ×2 (08:15→20:50)
[2018-06-12] MEDS: LOSARTAN 25 MG TAB PO SCH (08:16)
[2018-06-12] MEDS: Mirabegron [Myrbetriq] 25 MG PO SCH (08:16)
[2018-06-12] MEDS: METOPROLOL TARTRATE 50 MG TAB PO SCH ×2 (08:16→20:50)
[2018-06-12] MEDS: ATORVASTATIN 10 MG TAB PO SCH (08:16)
--- NOTE | 2018-06-12 10:25 | P.PN ---
Subjective Progress Note Date: 06/12/18 This is a 77-year-old male patient who presented to the hospital with complaints of shortness of breath for 3 days. Patient reports that he was very easily winded at home and progressively increased over this 3 days. Seated on admission showing atrial fibrillation with rapid ventricular response with pr emature ventricular rate or aberrantly conducted complexes. Patient's BNP elevated at 2820. Chest x-ray completed showing no definitive acute process. Patient does have a past medical history of GERD, hearing disorder, hyperlipidemia, hypertension, osteoarthritis, prostate disorder and ex-smoker. Patient was started on Cardizem and heparin drip. Troponins negative 3. Patient started on Lasix 40 mg every 12 hours. Cardiology and pulmonary services have been consulted. At this time patient's heart rate improved. Patient reports he feels much improved with decreased heart rate. Patient denies chest pain or shortness of breath at this time. Patient denies nausea vomiting or diarrhea. Patient denies any urinary burning or frequency. On 06/12/2018 patient is alert and oriented 3. Patient states he feels significantly improved. Patient's heart rate remains in A. fib but controlled at this time. Patient is on eliquis for anticoagulation. Patient remains on IV Lasix 40 mg every 12 hours. Patient denies chest pain or shortness of breath. Patient denies nausea vomiting or diarrhea. Patient denies any urinary burning or frequency. Objective - Vital Signs Vital signs: Vital Signs Temp 97.7 F 06/11/18 20:53 Pulse 95 06/12/18 04:51 Resp 18 06/12/18 04:51 BP 137/75 06/12/18 04:51 Pulse Ox 92 L 06/12/18 04:51 Intake & Output 06/11/18 06/12/18 06/12/18 18:59 06:59 18:59 Intake Total 360 360 240 Output Total 1100 850 Balance -740 -490 240 Weight 137.8 kg Intake: Oral 360 360 240 Output: Urine 1100 850 Other: # Voids 1 - Exam Head normocephalic Neck supple Lungs clear to auscultation bilaterally no wheezing or crackles Heart irregular rate Abdomen is soft nontender nondistended positive bowel sounds no hepatosplenomegaly Extremities no edema Neuro alert and orientated to 3 - Labs CBC & Chem 7: 06/12/18 06:12 06/12/18 06:12 Labs: Abnormal Lab Results - Last 24 Hours (Table) 06/11/18 06/11/18 06/12/18 Range/Units 06:33 06:33 06:12 RBC 3.95 L 4.23 L (4.30-5.90) m/uL Hgb 12.8 L (13.0-17.5) gm/dL MCV 102.3 H 101.7 H (80.0-100.0) fL Plt Count 113 L 129 L (150-450) k/uL Chloride 109 H (98-107) mmol/L Carbon Dioxide 21 L (22-30) mmol/L BUN 21 H (9-20) mg/dL Total Bilirubin 1.4 H (0.2-1.3) mg/dL Total Protein 5.9 L (6.3-8.2) g/dL 06/12/18 Range/Units 06:12 RBC (4.30-5.90) m/uL Hgb (13.0-17.5) gm/dL MCV (80.0-100.0) fL Plt Count (150-450) k/uL Chloride (98-107) mmol/L Carbon Dioxide (22-30) mmol/L BUN 27 H (9-20) mg/dL Total Bilirubin 1.6 H (0.2-1.3) mg/dL Total Protein (6.3-8.2) g/dL Assessment and Plan Assessment: 1. Shortness of breath likely related to A. fib with RVR. Chest x-ray completed showing no definitive acute process. 2. Persistent atrial fibrillation with rapid ventricular response. Troponins negative 3 Patient started on Cardizem and heparin drip. Cardiology services consulted 2-D echo ordered. Eliquis has been initiated for anticoagulation. Metroprolol 50 mg twice a day added for rate control. Per cardiology patient will be discharged home and he will need an outpatient GENARO and cardioversion after 3 weeks of anticoagulation 3. Mild systolic CHF exacerbation. elevated BNP 2820. Patient remains on IV Lasix 40 mg every 12 hours. 2-D echo completed showing an EF of 45-50% 4. History of essential hypertension 5. Hyperlipidemia 6. Hearing disorder 7. History of GERD 8. History of osteoarthritis 9. History of prostate disorder DVT prophylaxis eliquis. GI prophylaxis Protonix I performed an examination of the patient and discussed their management with the Nurse Practitioner. I have reviewed the Nurse Practitioner's notes and agree with the documented findings and plan of care
--- NOTE | 2018-06-12 11:19 | P.PN ---
Subjective Progress Note Date: 06/12/18 This is a pleasant 77-year-old gentleman with history of hypertension and hyperlipidemia who presented to the hospital with symptoms of palpitations. He was found to be in atrial fibrillation with a rapid ventricular response. Patient was initiated on Eliquis for anticoagulation, his heart rate this morn ing is in the 80 range. Echocardiogram with Doppler study was performed which revealed an ejection fraction of 45-50%. TSH level was normal. Objective - Vital Signs Vital signs: Vital Signs Temp 97.8 F 06/12/18 08:00 Pulse 77 06/12/18 08:00 Resp 18 06/12/18 08:00 BP 110/72 06/12/18 08:00 Pulse Ox 93 L 06/12/18 08:00 Intake & Output 06/11/18 06/12/18 06/12/18 18:59 06:59 18:59 Intake Total 360 360 240 Output Total 1100 850 Balance -740 -490 240 Weight 137.8 kg Intake: Oral 360 360 240 Output: Urine 1100 850 Other: # Voids 1 - Exam PHYSICAL EXAMINATION: GENERAL: 77-year-old gentleman in no acute distress at the time of my examination HEENT: Head is atraumatic, normocephalic. Pupils equal, round. Sclera anicteric. Conjunctiva are clear. Mucous membranes of the mouth are moist. Neck is supple. There is no elevated jugular venous pressure. No carotid bruit is heard. HEART EXAMINATION: Heart S1 and S2 irregularly irregular CHEST EXAMINATION: Lungs are clear to auscultation and precussion. No chest wall tenderness is noted on palpation or with deep breathing. ABDOMEN: Soft, nontender. Bowel sounds are heard. No organomegaly noted. EXTREMITIES: 2+ peripheral pulses with no evidence of peripheral edema and no calf tenderness noted. NEUROLOGIC patient is awake, alert and oriented 3 . . - Labs CBC & Chem 7: 06/12/18 06:12 06/12/18 06:12 Labs: Abnormal Lab Results - Last 24 Hours (Table) 06/11/18 06/11/18 06/12/18 Range/Units 06:33 06:33 06:12 RBC 3.95 L 4.23 L (4.30-5.90) m/uL Hgb 12.8 L (13.0-17.5) gm/dL MCV 102.3 H 101.7 H (80.0-100.0) fL Plt Count 113 L 129 L (150-450) k/uL Chloride 109 H (98-107) mmol/L Carbon Dioxide 21 L (22-30) mmol/L BUN 21 H (9-20) mg/dL Total Bilirubin 1.4 H (0.2-1.3) mg/dL Total Protein 5.9 L (6.3-8.2) g/dL 06/12/18 Range/Units 06:12 RBC (4.30-5.90) m/uL Hgb (13.0-17.5) gm/dL MCV (80.0-100.0) fL Plt Count (150-450) k/uL Chloride (98-107) mmol/L Carbon Dioxide (22-30) mmol/L BUN 27 H (9-20) mg/dL Total Bilirubin 1.6 H (0.2-1.3) mg/dL Total Protein (6.3-8.2) g/dL Assessment and Plan Plan: Assessment and plan #1 atrial fibrillation with rapid ventricular response, persistent, TSH is normal, on Eliquis for anticoagulation #2 history of COPD from prior nicotine use #3 hypertension #4 hyperlipidemia Plan From cardiology's perspective, patient may be able to be discharged home today, we will continue Eliquis 5 mg one tablet by mouth twice a day, discontinue aspirin, continue metoprolol 50 twice a day. Follow-up appointment will be made in the office post discharge. DNP note has been reviewed, I agree with a documented findings and plan of care. Patient was seen and examined.
--- NOTE | 2018-06-12 13:13 | P.PN ---
Subjective Progress Note Date: 06/12/18 Principal diagnosis: Shortness of breath, A. fib RVR, mild congestive heart failure, improving On 06/12/2016 patient seen in follow-up on selective care unit, he is resting comfortably in bed, is in no acute distress, he states his breathing is improving, complaints of chest pain. Echocardiogram was completed and revealed mildly impaired left ventricle systolic function with an EF between 45 and 50%. He was evidence of mild pulmonary hypertension with a right-sided pressures of 40 mmHg. He is on oral anticoagulation form of Eliquis, TSH was within normal limits. This morning patient's heart rate is controlled, is in the 80s. Lung sounds reveal minimal fine crackles at the bases, no rhonchi or wheezes. From pulmonary perspective patient is stable, his been on room air, vital signs have been stable. Objective - Vital Signs Vital signs: Vital Signs Temp 97.8 F 06/12/18 08:00 Pulse 77 06/12/18 08:00 Resp 18 06/12/18 08:00 BP 110/72 06/12/18 08:00 Pulse Ox 93 L 06/12/18 08:00 Intake & Output 06/11/18 06/12/18 06/12/18 18:59 06:59 18:59 Intake Total 360 360 240 Output Total 1100 850 300 Balance -740 -490 -60 Weight 137.8 kg Intake: Oral 360 360 240 Output: Urine 1100 850 300 Other: # Voids 1 # Bowel Movements 0 - Exam GENERAL EXAM: Alert, pleasant, 77-year-old white male on room air comfortable in no apparent distress. HEAD: Normocephalic/atraumatic. EYES: Normal reaction of pupils, equal size. Conjunctiva pink, sclera white. NOSE: Clear with pink turbinates. THROAT: No erythema or exudates. NECK: No masses, no JVD, no thyroid enlargement, no adenopathy. CHEST: No chest wall deformity. Symmetrical expansion. LUNGS: Equal air entry with minimal crackles, no wheeze, rhonchi or dullness. CVS: Regular rate and rhythm, normal S1 and S2, no gallops, no murmurs, no rubs ABDOMEN: Soft, nontender. No hepatosplenomegaly, normal bowel sounds, no guarding or rigidity. EXTREMITIES: No clubbing, no edema, no cyanosis, 2+ pulses and upper and lower extremities. MUSCULOSKELETAL: Muscle strength and tone normal. SPINE: No scoliosis or deformity SKIN: No rashes CENTRAL NERVOUS SYSTEM: Alert and oriented -3. No focal deficits, tone is normal in all 4 extremities. PSYCHIATRIC: Alert and oriented -3. Appropriate affect. Intact judgment and insight. - Labs CBC & Chem 7: 06/12/18 06:12 06/12/18 06:12 Labs: Abnormal Lab Results - Last 24 Hours (Table) 06/12/18 06/12/18 Range/Units 06:12 06:12 RBC 4.23 L (4.30-5.90) m/uL MCV 101.7 H (80.0-100.0) fL Plt Count 129 L (150-450) k/uL BUN 27 H (9-20) mg/dL Total Bilirubin 1.6 H (0.2-1.3) mg/dL Assessment and Plan Plan: Assessment: #1. Dyspnea related to A. fib RVR, and mild congestive heart failure with systolic dysfunction #2. History of COPD #3. History of nicotine abuse currently in remission #4. Hypertension, hyperlipidemia Plan: He is doing well, room pulse ox is 93%, no fever or chills, no complaints of chest pain. His been on started on oral anticoagulation for his A. fib, his heart rate is controlled. No acute events overnight, from pulmonary perspective patient is cleared for discharge I performed a history & physical examination of the patient and discussed their management with my nurse practitioner, Alona Torres. I reviewed the nurse practitioner's note and agree with the documented findings and plan of care. Lung sounds are positive for minimal fine rales at the bases. The findings and the impression was discussed with the patient. I attest to the documentation by the nurse practitioner. Time with Patient: Less than 30
[2018-06-12] MEDS: TEMAZEPAM 30 MG CAP PO SCH (20:50)
[2018-06-12] MEDS: ACETAMINOPHEN TAB 325 MG TAB PO PRN (23:11)
[2018-06-13 07:26] LABS: Basophils % (A) 1 %; Eosinophils # (A) 0.2 k/uL (0-0.7); Eosinophils % (A) 2 %; HCT 48.3 % (39.0-53.0); HGB 15.2 gm/dL (13.0-17.5); Hypochromasia Slight; Lymphocytes # (A) 1.5 k/uL (1.0-4.8); Lymphocytes % (A) 21 %; MCH 32.2 pg (25.0-35.0); MCHC 31.5 g/dL (31.0-37.0); MCV 102.3 fL (80.0-100.0); Macrocytosis Slight; Monocytes # (A) 0.6 k/uL (0-1.0); Monocytes % (A) 8 %; Neutrophils # (A) 4.9 k/uL (1.3-7.7); Neutrophils % (A) 66 %; Platelet Count 122 k/uL (150-450); RBC 4.72 m/uL (4.30-5.90); RDW 14.7 % (11.5-15.5); WBC 7.4 k/uL (3.8-10.6)
[2018-06-13 07:52] LABS: Albumin 4.3 g/dL (3.5-5.0); Calcium 9.6 mg/dL (8.4-10.2); Potassium 4.4 mmol/L (3.5-5.1); Total Bilirubin 1.5 mg/dL (0.2-1.3); Total Protein 6.4 g/dL (6.3-8.2)
[2018-06-13] MEDS: SERTRALINE 100 MG TAB PO SCH (08:41)
[2018-06-13] MEDS: DOCUSATE 100 MG CAP PO SCH (08:41)
[2018-06-13] MEDS: CHOLECALCIFEROL 1,000 UNIT TAB PO SCH (08:41)
[2018-06-13] MEDS: METOPROLOL TARTRATE 50 MG TAB PO SCH (08:41)
[2018-06-13] MEDS: PANTOPRAZOLE 40 MG TABLET PO SCH (08:42)
[2018-06-13] MEDS: ALFUZOSIN HCL 10 MG PO SCH (08:42)
[2018-06-13] MEDS: ALPRAZolam 0.5 MG TAB PO SCH (08:42)
[2018-06-13] MEDS: LOSARTAN 25 MG TAB PO SCH (08:42)
[2018-06-13] MEDS: APIXABAN 5 MG TAB PO SCH (08:42)
[2018-06-13] MEDS: Mirabegron [Myrbetriq] 25 MG PO SCH (08:43)
[2018-06-13] MEDS: ATORVASTATIN 10 MG TAB PO SCH (08:44)
[2018-06-13 11:07] VITALS: BP 121/84; PULSE 81; RESP 16; TEMP 97.2
--- NOTE | 2018-06-13 11:28 | P.DS ---
Providers Date of admission: 06/10/18 20:33 Expected date of discharge: 06/13/18 Attending physician: Juan C Beltrna Consults: 06/10/18 20:33 Consult Physician Urgent Consulting Provider: Brigitte Alvares Consult Reason/Comments: [email or web address] Do you want consulting provider notified?: Yes 06/10/18 20:44 Consult Physician Urgent Consulting Provider: Joana August Consult Reason/Comments: known Do you want consulting provider notified?: Yes Primary care physician: Juan C Ruby [facility] Course: Discharge diagnosis 1. Shortness of breath likely related to A. fib with RVR. Chest x-ray completed showing no definitive acute process. 2. Persistent atrial fibrillation with rapid ventricular response. Troponins negative 3 Patient started on Cardizem and heparin drip. Cardiology services consulted 2-D echo ordered. Eliquis has been initiated for anticoagulation. Metroprolol 50 mg twice a day added for rate control. Per cardiology patient will be discharged home and he will need an outpatient GENARO and cardioversion after 3 weeks of anticoagulation. Eliquis Metroprolol scrips per cardiology. Her rate controlled A. fib 3. Mild systolic CHF exacerbation. elevated BNP 2820. Patient remains on IV Lasix 40 mg every 12 hours. 2-D echo completed showing an EF of 45-50%. Patient will be DC'd on Lasix 20 mg daily. 4. History of essential hypertension 5. Hyperlipidemia 6. Hearing disorder 7. History of GERD 8. History of osteoarthritis Hospital course This is a 77-year-old male patient who presented to the hospital with complaints of shortness of breath for 3 days. Patient reports that he was very easily winded at home and progressively increased over this 3 days. Seated on admission showing atrial fibrillation with rapid ventricular response with premature ventricular rate or aberrantly conducted complexes. Patient's BNP elevated at 2820. Chest x-ray completed showing no definitive acute process. Patient does have a past medical history of GERD, hearing disorder, hyperlipidemia, hypertension, osteoarthritis, prostate disorder and ex-smoker. Patient was started on Cardizem and heparin drip. Troponins negative 3. Patient started on Lasix 40 mg every 12 hours. Cardiology and pulmonary services have been consulted. At this time patient's heart rate improved. Patient reports he feels much improved with decreased heart rate. Patient denies chest pain or shortness of breath at this time. Patient denies nausea vomiting or diarrhea. Patient denies any urinary burning or frequency. On 06/12/2018 patient is alert and oriented 3. Patient states he feels significantly improved. Patient's heart rate remains in A. fib but controlled at this time. Patient is on eliquis for anticoagulation. Patient remains on IV Lasix 40 mg every 12 hours. Patient denies chest pain or shortness of breath. Patient denies nausea vomiting or diarrhea. Patient denies any urinary burning or frequency. On 06/13/2018 patient is alert and oriented 3. Patient feels ready to go home. Patient has been cleared by cardiology and pulmonary services. Patient will be DC'd on eliquis ametropic blood per cardiology. Patient followed cardiology services for GENARO cardioversion. Patient also be discharged on Lasix 20 mg daily. CMP ordered for 3 days for monitoring of creatinine in bed. At this time patient denies chest pain or shortness breath. Patient denies nausea vomiting or diarrhea. Patient denies any urinary burning or frequency. I performed an examination of the patient and discussed their management with the Nurse Practitioner. I have reviewed the Nurse Practitioner's notes and agree with the documented findings and plan of care Patient Condition at Discharge: Stable Plan - Discharge Summary Discharge Rx Participant: No New Discharge Prescriptions: New Apixaban [Eliquis] 5 mg PO BID #60 tab Metoprolol Tartrate [Lopressor] 50 mg PO BID #60 tab Furosemide [Lasix] 20 mg PO DAILY 30 Days #30 tab Continue Temazepam [Restoril] 30 mg PO HS Simvastatin [Zocor] 10 mg PO DAILY Sertraline HCl [Zoloft] 200 mg PO DAILY Losartan [Cozaar] 50 mg PO DAILY Alfuzosin HCl [Uroxatral ER] 10 mg PO DAILY Mirabegron [Myrbetriq] 25 mg PO DAILY Cholecalciferol [Vitamin D3] 1,000 unit PO DAILY ALPRAZolam [Xanax] 0.5 mg PO DAILY Discontinued Ibuprofen [Motrin] 600 mg PO Q6HR PRN #60 tab PRN Reason: Pain Aspirin [[place] Aspirin EC] 81 mg PO DAILY Discharge Medication List Losartan [Cozaar] 50 mg PO DAILY 10/30/13 [History] Sertraline HCl [Zoloft] 200 mg PO DAILY 10/30/13 [History] Simvastatin [Zocor] 10 mg PO DAILY 10/30/13 [History] Temazepam [Restoril] 30 mg PO HS 10/30/13 [History] Alfuzosin HCl [Uroxatral ER] 10 mg PO DAILY 01/14/18 [History] ALPRAZolam [Xanax] 0.5 mg PO DAILY 06/10/18 [History] Cholecalciferol [Vitamin D3] 1,000 unit PO DAILY 06/10/18 [History] Mirabegron [Myrbetriq] 25 mg PO DAILY 06/10/18 [History] Apixaban [Eliquis] 5 mg PO BID #60 tab 06/12/18 [Rx] Metoprolol Tartrate [Lopressor] 50 mg PO BID #60 tab 06/12/18 [Rx] Furosemide [Lasix] 20 mg PO DAILY 30 Days #30 tab 06/13/18 [Rx] Follow up Appointment(s)/Referral(s): [facility], [NON-STAFF] - Juan C Beltran MD [Primary Care Provider] - 06/20/18 10:15 am (Saturday) iJmmy Gore MD [STAFF PHYSICIAN] - 1 Week Ambulatory/Diagnostic Orders: Comprehensive Metabolic Panel [LAB.AMB] Time Frame: 3 Days, Location: None Selected Activity/Diet/Wound Care/Special Instructions: pts monthly copay for Eliquis is $40 Activity as tolerated Diet heart healthy Patient to follow-up with cardiology services for further management of new onset A. fib DC'd on eliquis per cardiology Discharge Disposition: HOME SELF-CARE
[2018-06-13] MEDS: ACETAMINOPHEN TAB 325 MG TAB PO PRN (11:43)
--- NOTE | 2018-06-13 13:11 | PN ---
PROGRESS NOTE Nick is a 77-year-old gentleman who is admitted to hospital with palpitations, was found to be in atrial fibrillation with rapid ventricular rate. He is doing well this morning. PHYSICAL EXAMINATION: On exam, vital signs are stable. Heart rate is well controlled. Blood pressure is normal. Chest exam reveals good air entry bilaterally. Heart exam reveals first and second heart sounds. No gallop. Examination of extremities did not reveal edema. LABS: Labs show a hemoglobin of 15, platelet count is 172. Potassium is 4.4. Creatinine is 1.3. The patient is currently on Lipitor, Cozaar, Lopressor, Zoloft, Protonix, and Restoril. Allergic to VICODIN, PENICILLIN, DARVOCET, and FLOMAX. ASSESSMENT: Chronic atrial fibrillation with controlled ventricular rate. PLAN: Discharge patient home on Eliquis. Follow up with Cardiology in the office. MMODL / YARYN: [id number] /
== END 2018-06-13 13:02 | disposition home or self-care (01) | DRG 308 ==
LOC: EC 18:46 → 3SCARD 20:33
PROVIDERS: ADMIT Internal Medicine; ATTEND Internal Medicine
DX: I48.1 Persistent atrial fibrillation (principal); I50.23 Acute on chronic systolic (congestive) heart failure; E78.5 Hyperlipidemia, unspecified; F32.9 Major depressive disorder, single episode, unspecified; F41.9 Anxiety disorder, unspecified; H91.90 Unspecified hearing loss, unspecified ear; I11.0 Hypertensive heart disease with heart failure; I27.20 Pulmonary hypertension, unspecified; J44.9 Chronic obstructive pulmonary disease, unspecified; K21.9 Gastro-esophageal reflux disease without esophagitis; M19.90 Unspecified osteoarthritis, unspecified site; N40.0 Benign prostatic hyperplasia without lower urinary tract symptoms; Z77.090 Contact with and (suspected) exposure to asbestos; Z79.01 Long term (current) use of anticoagulants; Z79.82 Long term (current) use of aspirin; Z79.899 Other long term (current) drug therapy; Z82.49 Family history of ischemic heart disease and other diseases of the circulatory system; Z87.442 Personal history of urinary calculi; Z87.891 Personal history of nicotine dependence; Z96.653 Presence of artificial knee joint, bilateral
CPT/HCPCS: 36415; 71046; 80053; 80061; 83735; 83880; 84443; 84484; 85025; 85049; 85610; 85730; 93306; 94640; 96365; 96366; 96376; 99291

== ENCOUNTER 2018-06-14 18:46 | Emergency (ER) | payer MEDICARE ==
[2018-06-14 18:54] VITALS: TEMP 97.7
[2018-06-14] MEDS ORDERED: SODIUM CHLORIDE 0.9% 500 ML 500 ML IV ONE (19:21)
--- NOTE | 2018-06-14 19:25 | ED ---
General Adult HPI - General Chief complaint: Arrhythmia/Palpitations Stated complaint: LALI, chest pain Time Seen by Provider: 06/14/18 19:06 Source: patient Mode of arrival: ambulatory Limitations: no limitations - History of Present Illness Initial comments: Patient is a 77-year-old male presents with a chief complaint of lightheadedness and palpitations. Patient was recently discharged from the hospital where he was admitted for atrial fibrillation and congestive heart failure. He was started on new medications, in particular metoprolol, and Lasix on top of his previously prescribed losartan. Patient describes orthostatic symptoms. He states that he gets very lightheaded when he changes positions from lying or sitting to standing. Rest he denies symptoms. The patient denies any chest pain or shortness of breath currently. - Related Data Home Medications Medication Instructions Recorded Confirmed Losartan [Cozaar] 50 mg PO DAILY 10/30/13 06/14/18 Sertraline HCl [Zoloft] 200 mg PO DAILY 10/30/13 06/14/18 Simvastatin [Zocor] 10 mg PO DAILY 10/30/13 06/14/18 Temazepam [Restoril] 30 mg PO HS 10/30/13 06/14/18 Alfuzosin HCl [Uroxatral ER] 10 mg PO DAILY 01/14/18 06/14/18 ALPRAZolam [Xanax] 0.5 mg PO DAILY 06/10/18 06/14/18 Cholecalciferol [Vitamin D3] 1,000 unit PO DAILY 06/10/18 06/14/18 Mirabegron [Myrbetriq] 25 mg PO DAILY 06/10/18 06/14/18 Previous Rx's Medication Instructions Recorded Apixaban [Eliquis] 5 mg PO BID #60 tab 06/12/18 Metoprolol Tartrate [Lopressor] 50 mg PO BID #60 tab 06/12/18 Furosemide [Lasix] 20 mg PO DAILY 30 Days #30 tab 06/13/18 Allergies Allergy/AdvReac Type Severity Reaction Status Date / Time hydrocodone bitartrate Allergy Anaphylaxis Verified 06/14/18 19:01 [From Vicodin] Penicillins Allergy Anaphylaxis Verified 06/14/18 19:01 propoxyphene napsylate Allergy Anaphylaxis Verified 06/14/18 19:01 [From Darvocet-N 100] tamsulosin HCl [From Flomax] Allergy Anaphylaxis Verified 06/14/18 19:01 Review of Systems ROS Statement: Those systems with pertinent positive or pertinent negative responses have been documented in the HPI. ROS Other: All systems not noted in ROS Statement are negative. Cardiovascular: Reports: palpitations Past Medical History Past Medical History: GERD/Reflux, Hearing Disorder / Deafness, Hyperlipidemia, Hypertension, Osteoarthritis (OA), Prostate Disorder Additional Past Medical History / Comment(s): Tinnitus, Hx kidney stones, BPH, LUNG SCARRING. C/O STOMACH UPSET History of Any Multi-Drug Resistant Organisms: None Reported Past Surgical History: Adenoidectomy, Ear Surgery, Heart Catheterization, Joint Replacement, Tonsillectomy Additional Past Surgical History / Comment(s): oral surgery, diana knee replacements, thyroid surgery, diana cataracts. EGD, COLONOSCOPY 12/23/17 Past Anesthesia/Blood Transfusion Reactions: No Reported Reaction Past Psychological History: Depression Smoking Status: Former smoker Past Alcohol Use History: Daily Past Drug Use History: None Reported - Past Family History Father Family Medical History: Cancer, Congestive Heart Failure (CHF), Hypertension, Myocardial Infarction ([place]) Additional Family Medical History / Comment(s): AT AGE 84-[place] Mother Family Medical History: No Reported History Additional Family Medical History / Comment(s): MOM AT GE 60 MUSCULAR DYSTOPY General Exam Limitations: no limitations General appearance: alert, in no apparent distress Head exam: Present: atraumatic, normocephalic Eye exam: Present: normal appearance ENT exam: Present: normal exam Neck exam: Present: normal inspection Respiratory exam: Present: decreased breath sounds Cardiovascular Exam: Present: regular rate, normal rhythm GI/Abdominal exam: Present: soft. Absent: distended, tenderness Rectal exam: Present: deferred Extremities exam: Present: normal inspection Back exam: Present: normal inspection Neurological exam: Present: alert, oriented X3 Psychiatric exam: Present: normal affect, normal mood Skin exam: Present: warm, dry, intact Course Vital Signs 06/14/18 06/14/18 06/14/18 18:50 19:26 20:00 Temperature 97.7 F Pulse Rate 51 L 77 90 Respiratory 16 20 18 Rate Blood Pressure 95/70 110/66 101/62 O2 Sat by Pulse 94 L 96 96 Oximetry Medical Decision Making - Medical Decision Making Patient presents with chief complaint of orthostasis and palpitations. On initial evaluation, vital signs show hypotension and bradycardia with a rate in the 50s. EKG performed at 1903 shows atrial fibrillation with a rate of 94 bpm. Heart rate is irregular, segments are otherwise within normal limits, no acute ischemic signs. At this time, suspect hypotension secondary to new blood pressure medications. Patient will be evaluated patient and labs including cardiac enzymes, and a chest x-ray. Patient is likely intravascularly depleted, he will be given 500 mL of normal saline cautiously. current vasoactive medications include cozzar, alfuzosin, metoprolol, and lasix. 9:01 p.m. Case discussed with Dr. Parra who recommends discontinuation of the cozzar until follow up with Dr. Drew. continue other medications as prescribed. at this time, patient feeling improved, his BP has improved and he is stable for discharge. patient instructed to follow up with PCP and cardiology in 1-2 days, return to the ED if sx worsen or change. - Lab Data Result diagrams: 06/14/18 19:05 06/14/18 19:05 Lab Results 06/14/18 06/14/18 06/14/18 Range/Units 19:05 19:05 19:05 WBC 8.6 (3.8-10.6) k/uL RBC 4.75 (4.30-5.90) m/uL Hgb 15.3 (13.0-17.5) gm/dL Hct 47.6 (39.0-53.0) % MCV 100.2 H (80.0-100.0) fL MCH 32.2 (25.0-35.0) pg MCHC 32.2 (31.0-37.0) g/dL RDW 14.6 (11.5-15.5) % Plt Count 149 L (150-450) k/uL Neutrophils % 68 % Lymphocytes % 20 % Monocytes % 7 % Eosinophils % 3 % Basophils % 1 % Neutrophils # 5.8 (1.3-7.7) k/uL Lymphocytes # 1.7 (1.0-4.8) k/uL Monocytes # 0.6 (0-1.0) k/uL Eosinophils # 0.2 (0-0.7) k/uL Basophils # 0.1 (0-0.2) k/uL Macrocytosis Slight Sodium 141 (137-145) mmol/L Potassium 4.7 (3.5-5.1) mmol/L Chloride 107 (98-107) mmol/L Carbon Dioxide 22 (22-30) mmol/L Anion Gap 12 mmol/L BUN 46 H (9-20) mg/dL Creatinine 1.20 (0.66-1.25) mg/dL Est GFR (CKD-EPI)AfAm 68 (>60 ml/min/1.73 sqM) Est GFR (CKD-EPI)NonAf 59 (>60 ml/min/1.73 sqM) Glucose 86 (74-99) mg/dL Calcium 9.4 (8.4-10.2) mg/dL Troponin I (0.000-0.034) ng/mL NT-Pro-B Natriuret Pep 2330 pg/mL 06/14/18 Range/Units 19:05 WBC (3.8-10.6) k/uL RBC (4.30-5.90) m/uL Hgb (13.0-17.5) gm/dL Hct (39.0-53.0) % MCV (80.0-100.0) fL MCH (25.0-35.0) pg MCHC (31.0-37.0) g/dL RDW (11.5-15.5) % Plt Count (150-450) k/uL Neutrophils % % Lymphocytes % % Monocytes % % Eosinophils % % Basophils % % Neutrophils # (1.3-7.7) k/uL Lymphocytes # (1.0-4.8) k/uL Monocytes # (0-1.0) k/uL Eosinophils # (0-0.7) k/uL Basophils # (0-0.2) k/uL Macrocytosis Sodium (137-145) mmol/L Potassium (3.5-5.1) mmol/L Chloride (98-107) mmol/L Carbon Dioxide (22-30) mmol/L Anion Gap mmol/L BUN (9-20) mg/dL Creatinine (0.66-1.25) mg/dL Est GFR (CKD-EPI)AfAm (>60 ml/min/1.73 sqM) Est GFR (CKD-EPI)NonAf (>60 ml/min/1.73 sqM) Glucose (74-99) mg/dL Calcium (8.4-10.2) mg/dL Troponin I <0.012 (0.000-0.034) ng/mL NT-Pro-B Natriuret Pep pg/mL Disposition Clinical Impression: Atrial fibrillation, Hypotension, Orthostasis Disposition: HOME SELF-CARE Condition: Good Instructions (If sedation given, give patient instructions): Furosemide (By mouth), Hypotension (ED) Additional Instructions: DISCONTINUE COZAAR (LOSARTAN) AND CONTINUE OTHER MEDICATIONS PRESCRIBED. FOLLOW UP WITH PRIMARY CARE AND CARDIOLOGY, RETURN TO THE ED IF SYMPTOMS WORSEN OR CHANGE. Is patient prescribed a controlled substance at d/c from ED?: No Referrals: Juan C Beltran MD [Primary Care Provider] - 1-2 days
[2018-06-14 19:29] LABS: Basophils # (A) 0.1 k/uL (0-0.2); Basophils % (A) 1 %; Eosinophils # (A) 0.2 k/uL (0-0.7); Eosinophils % (A) 3 %; HCT 47.6 % (39.0-53.0); HGB 15.3 gm/dL (13.0-17.5); Lymphocytes # (A) 1.7 k/uL (1.0-4.8); Lymphocytes % (A) 20 %; MCH 32.2 pg (25.0-35.0); MCHC 32.2 g/dL (31.0-37.0); MCV 100.2 fL (80.0-100.0); Macrocytosis Slight; Mean Platelet Volume 9.2; Monocytes # (A) 0.6 k/uL (0-1.0); Monocytes % (A) 7 %; Neutrophils # (A) 5.8 k/uL (1.3-7.7); Neutrophils % (A) 68 %; Platelet Count 149 k/uL (150-450); RBC 4.75 m/uL (4.30-5.90); RDW 14.6 % (11.5-15.5); WBC 8.6 k/uL (3.8-10.6)
--- NOTE | 2018-06-14 19:40 | XR ---
EXAMINATION TYPE: XR chest 2V DATE OF EXAM: 06/14/2018 COMPARISON: 06/10/2018 HISTORY: Arrhythmia TECHNIQUE: Frontal and lateral views of the chest are obtained. FINDINGS: Heart and mediastinum are normal. There is some coarse density in both lower lobes. There is no heart failure. There is spurring in the thoracic spine. IMPRESSION: Normal heart. Coarse interstitial density in the lower lung pardo consistent with mild fibrosis. No heart failure. Inspiration improved compared to old exam.
[2018-06-14 19:50] LABS: Calcium 9.4 mg/dL (8.4-10.2); Potassium 4.7 mmol/L (3.5-5.1)
[2018-06-14 20:23] VITALS: RESP 18
[2018-06-14 21:03] VITALS: BP 108/64; PULSE 87
== END 2018-06-14 21:14 | disposition home or self-care (01) ==
LOC: EC 18:46
DX: I48.91 Unspecified atrial fibrillation (principal); I95.1 Orthostatic hypotension; E78.5 Hyperlipidemia, unspecified; I11.0 Hypertensive heart disease with heart failure; I50.9 Heart failure, unspecified; M19.90 Unspecified osteoarthritis, unspecified site; N40.0 Benign prostatic hyperplasia without lower urinary tract symptoms; F32.9 Major depressive disorder, single episode, unspecified; H91.90 Unspecified hearing loss, unspecified ear; Z87.891 Personal history of nicotine dependence; Z88.0 Allergy status to penicillin; Z88.5 Allergy status to narcotic agent; Z88.8 Allergy status to other drugs, medicaments and biological substances; Z79.899 Other long term (current) drug therapy; Z95.818 Presence of other cardiac implants and grafts; Z96.653 Presence of artificial knee joint, bilateral; Z82.49 Family history of ischemic heart disease and other diseases of the circulatory system
CPT/HCPCS: 36415; 71046; 80048; 83880; 84484; 85025; 93005; 96360; 96361; 99285

== ENCOUNTER 2018-07-01 14:56 | Observation (INO) | payer MEDICARE ==
[2018-07-01] MEDS ORDERED: ASPIRIN 81 MG PO STA (15:23)
[2018-07-01] MEDS ORDERED: NITROGLYCERIN SL TABS 0.4 MG TAB SUBLINGUAL STA (15:23)
--- NOTE | 2018-07-01 15:28 | ED ---
General Adult HPI - General Chief complaint: Chest Pain Stated complaint: chest heaviness Time Seen by Provider: 07/01/18 15:14 Source: patient, RN notes reviewed, old records reviewed Mode of arrival: ambulatory Limitations: no limitations - History of Present Illness Initial comments: The patient 77-year-old male presented to the emergency room today with chief complaint of dizziness, chest tightness. Patient does admit that he's also felt some shortness of breath. States that some of the symptoms started 2 days ago but didn't start having chest tightness this morning. Patient states his symptoms are similar to symptoms that he had 2 weeks ago and was seen here in the emergency room diagnosed with atrial fibrillation. Patient denies any other complaints or symptoms. Patient denies any recent fever, chills, shortness of breath, chest pain, back pain, abdominal pain, nausea or vomiting, numbness or tingling, headaches or visual changes, or any other complaints. - Related Data Home Medications Medication Instructions Recorded Confirmed Sertraline HCl [Zoloft] 200 mg PO DAILY 10/30/13 07/01/18 Simvastatin [Zocor] 10 mg PO DAILY 10/30/13 07/01/18 Temazepam [Restoril] 30 mg PO HS 10/30/13 07/01/18 Alfuzosin HCl [Uroxatral ER] 10 mg PO DAILY 01/14/18 07/01/18 ALPRAZolam [Xanax] 0.5 mg PO DAILY PRN 06/10/18 07/01/18 Cholecalciferol [Vitamin D3 (25 1,000 unit PO DAILY 06/10/18 07/01/18 Mcg = 1000 Iu)] Mirabegron [Myrbetriq] 25 mg PO DAILY 06/10/18 07/01/18 Acetaminophen [Tylenol Extra 500 - 1,000 mg PO HS 07/01/18 07/01/18 Strength] Previous Rx's Medication Instructions Recorded Apixaban [Eliquis] 5 mg PO BID #60 tab 06/12/18 Metoprolol Tartrate [Lopressor] 50 mg PO BID #60 tab 06/12/18 Furosemide [Lasix] 20 mg PO DAILY 30 Days #30 tab 06/13/18 Allergies Allergy/AdvReac Type Severity Reaction Status Date / Time hydrocodone bitartrate Allergy Anaphylaxis Verified 07/01/18 16:01 [From Vicodin] Penicillins Allergy Anaphylaxis Verified 07/01/18 16:01 propoxyphene napsylate Allergy Anaphylaxis Verified 07/01/18 16:01 [From Darvocet-N 100] tamsulosin HCl [From Flomax] Allergy Anaphylaxis Verified 07/01/18 16:01 Review of Systems ROS Statement: Those systems with pertinent positive or pertinent negative responses have been documented in the HPI. ROS Other: All systems not noted in ROS Statement are negative. Past Medical History Past Medical History: GERD/Reflux, Hearing Disorder / Deafness, Hyperlipidemia, Hypertension, Osteoarthritis (OA), Prostate Disorder Additional Past Medical History / Comment(s): Tinnitus, Hx kidney stones, BPH, LUNG SCARRING. C/O STOMACH UPSET History of Any Multi-Drug Resistant Organisms: None Reported Past Surgical History: Adenoidectomy, Ear Surgery, Heart Catheterization, Joint Replacement, Tonsillectomy Additional Past Surgical History / Comment(s): oral surgery, diana knee replacements, thyroid surgery, diana cataracts. EGD, COLONOSCOPY 12/23/17 Past Anesthesia/Blood Transfusion Reactions: No Reported Reaction Past Psychological History: Depression Smoking Status: Former smoker Past Alcohol Use History: Daily Past Drug Use History: None Reported - Past Family History Father Family Medical History: Cancer, Congestive Heart Failure (CHF), Hypertension, Myocardial Infarction ([place]) Additional Family Medical History / Comment(s): AT AGE 84-[place] Mother Family Medical History: No Reported History Additional Family Medical History / Comment(s): MOM AT GE 60 MUSCULAR DYSTOPY General Exam - General Exam Comments Initial Comments: General: The patient is awake and alert, in no distress, and does not appear acutely ill. Eye: There is normal conjunctiva bilaterally. No signs of icterus. Ears, nose, mouth and throat: There are moist mucous membranes and no oral lesions. Neck: The neck is supple, there is no tenderness or JVD. Cardiovascular: There is a regular rate and rhythm. No murmur, rub or gallop is appreciated. Respiratory: Lungs are clear to auscultation, respirations are non-labored, breath sounds are equal. No wheezes, stridor, rales, or rhonchi. Gastrointestinal: Soft nontender Musculoskeletal: Normal ROM, no tenderness. Strength 5/5. Sensation intact. Pulses equal bilaterally 2+. Neurological: A&O x 3. CN II-XII intact, There are no obvious motor or sensory deficits. Coordination appears grossly intact. Speech is normal. Skin: Skin is warm and dry and no rashes or lesions are noted. Psychiatric: Cooperative, appropriate mood & affect, normal judgment. Limitations: no limitations Course Vital Signs 07/01/18 07/01/18 14:58 15:49 Temperature 97.6 F Pulse Rate 67 77 Respiratory 22 18 Rate Blood Pressure 132/63 102/62 O2 Sat by Pulse 94 L 96 Oximetry EKG Findings - EKG Comments: EKG Findings:: EKG performed at 1511: Shows atrial fibrillation at 97 bpm. QRS 106. QT/QTc is 374/474. No acute ST change. Medical Decision Making - Medical Decision Making Patient reexamined at this time shows no signs of distress. Is resting comfortably. States is chest pain-free at this time. Patient does admit that he had some tightness to his chest this morning. Patient does not feeling dizzy over the last few days and has had some episodes of shortness breath. Patient's EKG does show A. fib with controlled rate. Patient initial troponin is n egative. Patient BNP is mildly elevated at 2700 today. Does admit that he's had some weight gain. He has been taking his Lasix. He'll be given dose of IV Lasix here in emergency room. 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 - Lab Data Result diagrams: 07/01/18 15:45 07/01/18 15:45 Lab Results 07/01/18 07/01/18 07/01/18 Range/Units 15:45 15:45 15:45 WBC 4.7 (3.8-10.6) k/uL RBC 4.48 (4.30-5.90) m/uL Hgb 14.1 (13.0-17.5) gm/dL Hct 45.5 (39.0-53.0) % MCV 101.6 H (80.0-100.0) fL MCH 31.5 (25.0-35.0) pg MCHC 31.0 (31.0-37.0) g/dL RDW 14.2 (11.5-15.5) % Plt Count 106 L (150-450) k/uL Neutrophils % 67 % Lymphocytes % 22 % Monocytes % 6 % Eosinophils % 3 % Basophils % 0 % Neutrophils # 3.2 (1.3-7.7) k/uL Lymphocytes # 1.0 (1.0-4.8) k/uL Monocytes # 0.3 (0-1.0) k/uL Eosinophils # 0.1 (0-0.7) k/uL Basophils # 0.0 (0-0.2) k/uL Hypochromasia Slight Macrocytosis Slight PT 11.3 (9.0-12.0) sec INR 1.1 (<1.2) APTT 26.3 (22.0-30.0) sec Sodium 140 (137-145) mmol/L Potassium 4.5 (3.5-5.1) mmol/L Chloride 109 H (98-107) mmol/L Carbon Dioxide 25 (22-30) mmol/L Anion Gap 6 mmol/L BUN 32 H (9-20) mg/dL Creatinine 1.11 (0.66-1.25) mg/dL Est GFR (CKD-EPI)AfAm 74 (>60 ml/min/1.73 sqM) Est GFR (CKD-EPI)NonAf 64 (>60 ml/min/1.73 sqM) Glucose 96 (74-99) mg/dL Calcium 9.0 (8.4-10.2) mg/dL Magnesium 1.8 (1.6-2.3) mg/dL Total Bilirubin 1.3 (0.2-1.3) mg/dL AST 19 (17-59) U/L ALT 23 (21-72) U/L Alkaline Phosphatase 46 (38-126) U/L Troponin I (0.000-0.034) ng/mL NT-Pro-B Natriuret Pep pg/mL Total Protein 6.0 L (6.3-8.2) g/dL Albumin 4.1 (3.5-5.0) g/dL 07/01/18 07/01/18 Range/Units 15:45 15:45 WBC (3.8-10.6) k/uL RBC (4.30-5.90) m/uL Hgb (13.0-17.5) gm/dL Hct (39.0-53.0) % MCV (80.0-100.0) fL MCH (25.0-35.0) pg MCHC (31.0-37.0) g/dL RDW (11.5-15.5) % Plt Count (150-450) k/uL Neutrophils % % Lymphocytes % % Monocytes % % Eosinophils % % Basophils % % Neutrophils # (1.3-7.7) k/uL Lymphocytes # (1.0-4.8) k/uL Monocytes # (0-1.0) k/uL Eosinophils # (0-0.7) k/uL Basophils # (0-0.2) k/uL Hypochromasia Macrocytosis PT (9.0-12.0) sec INR (<1.2) APTT (22.0-30.0) sec Sodium (137-145) mmol/L Potassium (3.5-5.1) mmol/L Chloride (98-107) mmol/L Carbon Dioxide (22-30) mmol/L Anion Gap mmol/L BUN (9-20) mg/dL Creatinine (0.66-1.25) mg/dL Est GFR (CKD-EPI)AfAm (>60 ml/min/1.73 sqM) Est GFR (CKD-EPI)NonAf (>60 ml/min/1.73 sqM) Glucose (74-99) mg/dL Calcium (8.4-10.2) mg/dL Magnesium (1.6-2.3) mg/dL Total Bilirubin (0.2-1.3) mg/dL AST (17-59) U/L ALT (21-72) U/L Alkaline Phosphatase (38-126) U/L Troponin I <0.012 (0.000-0.034) ng/mL NT-Pro-B Natriuret Pep 2710 pg/mL Total Protein (6.3-8.2) g/dL Albumin (3.5-5.0) g/dL Disposition Clinical Impression: Chest pain, Dizziness, Shortness of breath, Elevated brain natriuretic peptide (BNP) level Disposition: ADMITTED IP TO THIS HOSP Condition: Good Is patient prescribed a controlled substance at d/c from ED?: No Referrals: Juan C Beltran MD [Primary Care Provider] - 1-2 days Time of Disposition: 16:57
[2018-07-01 15:59] LABS: Basophils % (A) 0 %; Eosinophils # (A) 0.1 k/uL (0-0.7); Eosinophils % (A) 3 %; HCT 45.5 % (39.0-53.0); HGB 14.1 gm/dL (13.0-17.5); Hypochromasia Slight; Lymphocytes % (A) 22 %; MCH 31.5 pg (25.0-35.0); MCV 101.6 fL (80.0-100.0); Macrocytosis Slight; Mean Platelet Volume 9.3; Monocytes # (A) 0.3 k/uL (0-1.0); Monocytes % (A) 6 %; Neutrophils # (A) 3.2 k/uL (1.3-7.7); Neutrophils % (A) 67 %; Platelet Count 106 k/uL (150-450); RBC 4.48 m/uL (4.30-5.90); RDW 14.2 % (11.5-15.5); WBC 4.7 k/uL (3.8-10.6)
[2018-07-01 16:01] LABS: Albumin 4.1 g/dL (3.5-5.0); Magnesium 1.8 mg/dL (1.6-2.3); Potassium 4.5 mmol/L (3.5-5.1); Total Bilirubin 1.3 mg/dL (0.2-1.3)
[2018-07-01 16:02] LABS: INR 1.1 (<1.2); Partial Thromboplastin Time 26.3 sec (22.0-30.0); Prothrombin Time 11.3 sec (9.0-12.0)
--- NOTE | 2018-07-01 16:02 | XR ---
EXAMINATION TYPE: XR chest 2V DATE OF EXAM: 07/01/2018 COMPARISON: Prior chest x-ray 06/14/[address] 11/11/2017, 05/16/2017 HISTORY: Chest pain TECHNIQUE: Frontal and lateral views of the chest are obtained. FINDINGS: No significant interval change. Exam is expiratory and rotated. There are overlying cardia c leads. Heart size is stable and appears enlarged. Aorta is dense. No evident airspace disease, pneu mothorax, or pleural effusion. There is increased AP diameter chest with flattening the hemidiaphragm s is indicative of underlying COPD. Flowing anterior osteophytes along the thoracic vertebral bodies could be indicative of diffuse idiopathic skeletal hyperostosis. IMPRESSION: No acute cardiopulmonary process. Expiratory rotated exam.
[2018-07-01] MEDS ORDERED: SODIUM CHLORIDE 0.9% 1,000 ML IV ONE (16:58)
[2018-07-01] MEDS ORDERED: NITROGLYCERIN SL TABS 0.4 MG TAB SUBLINGUAL PRN (16:58)
[2018-07-01] MEDS ORDERED: FUROSEMIDE 20 MG TAB PO STA (17:01)
[2018-07-01 21:14] VITALS: BMI 39.4
[2018-07-01] MEDS ORDERED: ALPRAZolam 0.5 MG TAB PO PRN (22:08)
[2018-07-01] MEDS ORDERED: ACETAMINOPHEN TAB 500 MG TAB PO PRN (22:08)
[2018-07-01] MEDS: METOPROLOL TARTRATE 50 MG TAB PO SCH (22:19)
[2018-07-01] MEDS: TEMAZEPAM 30 MG CAP PO SCH (22:19)
[2018-07-01] MEDS: APIXABAN 5 MG TAB PO SCH (22:19)
[2018-07-02 04:57] LABS: Cholesterol 101 mg/dL (<200); HDL Cholesterol 49 mg/dL (40-60); LDL Cholesterol,Calculated 36 mg/dL (0-99); Triglycerides 80 mg/dL (<150)
[2018-07-02] MEDS: CHOLECALCIFEROL 1,000 UNIT TAB PO SCH (08:31)
[2018-07-02] MEDS: ATORVASTATIN 10 MG TAB PO SCH (08:31)
[2018-07-02] MEDS: FUROSEMIDE 20 MG TAB PO SCH (08:31)
[2018-07-02] MEDS: APIXABAN 5 MG TAB PO SCH ×2 (08:31→20:08)
[2018-07-02] MEDS: SERTRALINE 100 MG TAB PO SCH (08:31)
[2018-07-02] MEDS: METOPROLOL TARTRATE 50 MG TAB PO SCH ×2 (08:31→20:08)
[2018-07-02] MEDS ORDERED: ASPIRIN 325 MG TAB PO SCH (09:00)
[2018-07-02 09:03] LABS: Basophils % (A) 1 %; Eosinophils # (A) 0.1 k/uL (0-0.7); Eosinophils % (A) 3 %; HCT 45.3 % (39.0-53.0); Hypochromasia Slight; Lymphocytes # (A) 1.3 k/uL (1.0-4.8); Lymphocytes % (A) 24 %; MCH 31.6 pg (25.0-35.0); MCV 101.7 fL (80.0-100.0); Macrocytosis Slight; Mean Platelet Volume 10.4; Monocytes # (A) 0.3 k/uL (0-1.0); Monocytes % (A) 6 %; Neutrophils # (A) 3.5 k/uL (1.3-7.7); Neutrophils % (A) 66 %; Platelet Count 110 k/uL (150-450); RBC 4.45 m/uL (4.30-5.90); RDW 14.2 % (11.5-15.5); WBC 5.3 k/uL (3.8-10.6)
[2018-07-02 09:05] LABS: Albumin 3.8 g/dL (3.5-5.0); Potassium 4.4 mmol/L (3.5-5.1); Total Protein 5.8 g/dL (6.3-8.2)
--- NOTE | 2018-07-02 09:37 | P.CRDCN ---
History of Present Illness Consult date: 07/02/18 Requesting physician: Juan C Beltran Reason for Consult (text): dizziness, chest tightness Chief complaint: Dizziness and episode of chest tightness History of present illness: This is a 73-year-old gentleman with history of hypertension, quit smoking 40 years ago, diabetes, family history of premature coronary artery disease, underwent a cardiac catheterization in 2013 which revealed minimal disease in the LAD, he also has history of chronic atrial fibrillation for which she takes Eliquis. Patient presents to the hospital on this occasion with symptoms of dizziness which he states she's been experiencing off and on for the past couple of months, he had a recent admission to the hospital in May of this year with similar symptoms. An echo was performed on that admission which revealed an ejection fraction of 45-50% LA was severely dilated. According to the patient, his episodes of dizziness occur mostly when he is in a standing position. As far as a chest tightness, he states he had 1 episode of tightness in the left upper chest region, overall he has not been experiencing any other symptoms of chest discomfort according to him. On arrival here his EKG showed atrial fibrillation with a heart rate in the 90s. Chest x-ray did not reveal any acute cardiopulmonary process. Blood pressure 120/70 with a heart rate in the 70s, 95% on room air. White blood cell count 4.7, hemoglobin 14, platelet count 110. Sodium 141, potassium 4.4, BUN 33 and creatinine 1.0. Troponins were negative 3. Cholesterol 101, triglycerides 80, LDL 36 and HDL 49. At the time of my examination this morning patient denies any dizziness, no chest discomfort. Past Medical History Past Medical History: Atrial Fibrillation, GERD/Reflux, Hearing Disorder / Deafness, Hyperlipidemia, Hypertension, Osteoarthritis (OA), Prostate Disorder Additional Past Medical History / Comment(s): Tinnitus, Hx kidney stones, BPH, LUNG SCARRING. C/O STOMACH UPSET, new dx afib History of Any Multi-Drug Resistant Organisms: None Reported Past Surgical History: Adenoidectomy, Ear Surgery, Heart Catheterization, Joint Replacement, Tonsillectomy Additional Past Surgical History / Comment(s): oral surgery, diana knee replacements, thyroid surgery, diana cataracts. EGD, COLONOSCOPY 12/23/17 Past Anesthesia/Blood Transfusion Reactions: No Reported Reaction Past Psychological History: Depression Smoking Status: Former smoker Past Alcohol Use History: Daily Additional Past Alcohol Use History / Comment(s): quit smoking 1986, started smoking age 17. COUPLE BEERS DAILY Past Drug Use History: None Reported - Past Family History Father Family Medical History: Cancer, Congestive Heart Failure (CHF), Hypertension, Myocardial Infarction (CT) Additional Family Medical History / Comment(s): AT AGE 84-CT Mother Family Medical History: No Reported History Additional Family Medical History / Comment(s): MOM AT GE 60 MUSCULAR DYSTOPY Medications and Allergies Home Medications Medication Instructions Recorded Confirmed Type Sertraline HCl [Zoloft] 200 mg PO DAILY 10/30/13 07/01/18 History Simvastatin [Zocor] 10 mg PO DAILY 10/30/13 07/01/18 History Temazepam [Restoril] 30 mg PO HS 10/30/13 07/01/18 History Alfuzosin HCl [Uroxatral ER] 10 mg PO DAILY 01/14/18 07/01/18 History ALPRAZolam [Xanax] 0.5 mg PO DAILY PRN 06/10/18 07/01/18 History Cholecalciferol [Vitamin D3 (25 1,000 unit PO DAILY 06/10/18 07/01/18 History Mcg = 1000 Iu)] Mirabegron [Myrbetriq] 25 mg PO DAILY 06/10/18 07/01/18 History Apixaban [Eliquis] 5 mg PO BID #60 tab 06/12/18 07/01/18 Rx Metoprolol Tartrate [Lopressor] 50 mg PO BID #60 tab 06/12/18 07/01/18 Rx Furosemide [Lasix] 20 mg PO DAILY 30 Days #30 tab 06/13/18 07/01/18 Rx Acetaminophen [Tylenol Extra 500 - 1,000 mg PO HS 07/01/18 07/01/18 History Strength] Allergies Allergy/AdvReac Type Severity Reaction Status Date / Time hydrocodone bitartrate Allergy Anaphylaxis Verified 07/01/18 16:01 [From Vicodin] Penicillins Allergy Anaphylaxis Verified 07/01/18 16:01 propoxyphene napsylate Allergy Anaphylaxis Verified 07/01/18 16:01 [From Darvocet-N 100] tamsulosin HCl [From Flomax] Allergy Anaphylaxis Verified 07/01/18 16:01 Physical Exam Vitals: Vital Signs Temp Pulse Pulse Resp BP BP Pulse Ox 07/02/18 04:00 97.7 F 70 20 121/75 95 07/01/18 22:38 97.8 F 78 18 125/72 95 07/01/18 21:05 97.4 F L 73 20 125/72 95 07/01/18 20:15 79 20 140/86 96 07/01/18 19:47 75 18 130/93 07/01/18 18:40 98.0 F 80 18 114/78 96 07/01/18 17:00 89 18 118/77 94 L 07/01/18 15:49 77 18 102/62 96 07/01/18 14:58 97.6 F 67 22 132/63 94 L Intake and Output 07/01/18 07/02/18 07/02/18 22:59 06:59 14:59 Intake Total 230 Balance 230 Intake: Oral 230 Other: Weight 141.8 kg PHYSICAL EXAMINATION: GENERAL: 77-year-old gentleman in no acute distress at the time of my examination HEENT: Head is atraumatic, normocephalic. Pupils equal, round. Sclera anicteric. Conjunctiva are clear. Mucous membranes of the mouth are moist. Neck is supple. There is no elevated jugular venous pressure. No carotid bruit is heard. HEART EXAMINATION: R S1 and S2 irregularly irregular a systolic ejection murmur is heard. CHEST EXAMINATION: Lungs are clear to auscultation and precussion. No chest wall tenderness is noted on palpation or with deep breathing. ABDOMEN: Soft, nontender. Bowel sounds are heard. No organomegaly noted. EXTREMITIES: 2+ peripheral pulses with trace evidence of peripheral edema and no calf tenderness noted. NEUROLOGIC patient is awake, alert and oriented 3 .] Results 07/02/18 03:43 07/02/18 03:43 Cardiac Enzymes 07/01/18 07/01/18 07/01/18 Range/Units 15:45 15:45 22:00 AST 19 (17-59) U/L Troponin I <0.012 <0.012 (0.000-0.034) ng/mL 07/02/18 07/02/18 Range/Units 03:42 03:43 AST 18 (17-59) U/L Troponin I <0.012 (0.000-0.034) ng/mL Coagulation 07/01/18 Range/Units 15:45 PT 11.3 (9.0-12.0) sec APTT 26.3 (22.0-30.0) sec Lipids 07/02/18 Range/Units 03:42 Triglycerides 80 (<150) mg/dL Cholesterol 101 (<200) mg/dL HDL Cholesterol 49 (40-60) mg/dL CBC 07/01/18 07/02/18 Range/Units 15:45 03:43 WBC 4.7 5.3 (3.8-10.6) k/uL RBC 4.48 4.45 (4.30-5.90) m/uL Hgb 14.1 14.0 (13.0-17.5) gm/dL Hct 45.5 45.3 (39.0-53.0) % Plt Count 106 L 110 L (150-450) k/uL Comprehensive Metabolic Panel 07/01/18 07/02/18 Range/Units 15:45 03:43 Sodium 140 141 (137-145) mmol/L Potassium 4.5 4.4 (3.5-5.1) mmol/L Chloride 109 H 109 H (98-107) mmol/L Carbon Dioxide 25 26 (22-30) mmol/L BUN 32 H 33 H (9-20) mg/dL Creatinine 1.11 1.06 (0.66-1.25) mg/dL Glucose 96 82 (74-99) mg/dL Calcium 9.0 9.0 (8.4-10.2) mg/dL AST 19 18 (17-59) U/L ALT 23 28 (21-72) U/L Alkaline Phosphatase 46 48 (38-126) U/L Total Protein 6.0 L 5.8 L (6.3-8.2) g/dL Albumin 4.1 3.8 (3.5-5.0) g/dL Current Medications Generic Name Dose Route Start Last Admin Trade Name Freq PRN Reason Stop Dose Admin Acetaminophen 1,000 mg 07/01/18 22:08 Tylenol Tab PO Q6HR PRN Analgesia Alprazolam 0.5 mg 07/01/18 22:08 Xanax PO DAILY PRN Anxiety Apixaban 5 mg 07/01/18 21:00 07/02/18 08:31 Eliquis PO 5 mg BID KALEY Administration Aspirin 325 mg 07/02/18 09:00 07/02/18 08:31 Aspirin PO 325 mg DAILY KALEY Administration Atorvastatin Calcium 10 mg 07/02/18 09:00 07/02/18 08:31 Lipitor PO 10 mg DAILY KALEY Administration Cholecalciferol 1,000 unit 07/02/18 09:00 07/02/18 08:31 Vitamin D3 (25 Mcg = 1000 Iu) PO 1,000 unit DAILY KALEY Administration Furosemide 20 mg 07/02/18 09:00 07/02/18 08:31 Lasix PO 20 mg DAILY KALEY Administration Sodium Chloride 1,000 mls @ 20 mls/hr 07/01/18 16:58 07/01/18 21:50 Saline 0.9% IV 07/02/18 16:57 Not Given .Q24H ONE Metoprolol Tartrate 50 mg 07/01/18 22:15 07/02/18 08:31 Lopressor PO 50 mg BID KALEY Administration Nitroglycerin 0.4 mg 07/01/18 16:58 Nitrostat SUBLINGUAL Q5M PRN Chest Pain Alfuzosin Hcl [ 10 mg 07/02/18 09:00 07/02/18 08:32 Uroxatral Er] 10 Mg PO Not Given DAILY KALEY Mirabegron [ 25 mg 07/02/18 09:00 07/02/18 08:32 Myrbetriq] 25 Mg PO Not Given DAILY KALEY Sertraline HCl 200 mg 07/02/18 09:00 07/02/18 08:31 Zoloft PO 200 mg DAILY KALEY Administration Temazepam 30 mg 07/01/18 22:15 07/01/18 22:19 Restoril PO 30 mg HS KALEY Administration Intake and Output 07/01/18 07/02/18 07/02/18 22:59 06:59 14:59 Intake Total 230 Balance 230 Intake: Oral 230 Other: Weight 141.8 kg 07/02/18 03:43 07/02/18 03:43 EKG Interpretations (text) EKG shows atrial fibrillation with a fairly controlled ventricular response. Assessment and Plan Plan: Assessment and plan #1 symptoms of dizziness, mostly while in standing position. We will check orthostatics and monitor for any tachycardia or bradycardia arrhythmias. #2 one episode of chest tightness in the left upper chest area, atypical for acute coronary syndrome. EKG shows A. fib with a heart rate of 90 no acute changes noted. Troponins negative 3. Patient has undergone a cardiac catheterization in 2003 and 2013 which revealed minimal disease in the LAD and medical therapy advised at that time. #3 diabetes #4 hypertension #5 hyperlipidemia Plan Patient just had an echocardiogram with Doppler study performed last month which revealed an ejection fraction of 45-50%, so we will not repeat an echo on this admission. We will check orthostatic blood pressure and heart rate every shift. Continue to monitor for any tachycardia or bradycardia arrhythmias. We may also recommend patient undergo stress testing. Discontinue aspirin, continue Eliquis, Lipitor, Lasix, metoprolol. Further recommendations to follow. DNP note has been reviewed, I agree with a documented findings and plan of care. Patient was seen and examined.
[2018-07-02] MEDS ORDERED: ONDANSETRON 4 MG/2 ML VIAL IVP PRN (11:07)
--- NOTE | 2018-07-02 11:08 | P.HPIM ---
History of Present Illness H&P Date: 07/02/18 This is a 77-year-old male patient who presented with complaints of chest pain shortness breath and dizziness. Approximately 2 weeks ago patient was admitted and diagnosed with atrial fibrillation. At that time patient was started on metoprolol and eliquis. Patient reports that he is been having shortness of breath intermittently started about 2 days ago along with chest tightness and dizziness on standing. Patient has past medical history of atrophic relation, GERD, hearing disorder, hyperlipidemia, hypertension, osteoarthritis, prostate disorder, ex-smoker and Depression. Troponins negative 3. Chest x-ray completed showing no acute cardiopulmonary process. Expiratory rotated exam. EKG completed showing atrial fibrillation with a heart rate of 97. BNP elevated at 2710. At that time cardiology services have been consulted. home Medications resumed. Patient denies any chest pain or shortness of breath. Patient denies nausea vomiting or diarrhea. Patient denies any urinary burning or frequency. Review of Systems Please refer to HPI otherwise unremarkable Past Medical History Past Medical History: Atrial Fibrillation, GERD/Reflux, Hearing Disorder / Deafness, Hyperlipidemia, Hypertension, Osteoarthritis (OA), Prostate Disorder Additional Past Medical History / Comment(s): Tinnitus, Hx kidney stones, BPH, LUNG SCARRING. C/O STOMACH UPSET, new dx afib History of Any Multi-Drug Resistant Organisms: None Reported Past Surgical History: Adenoidectomy, Ear Surgery, Heart Catheterization, Joint Replacement, Tonsillectomy Additional Past Surgical History / Comment(s): oral surgery, diana knee replacem ents, thyroid surgery, diana cataracts. EGD, COLONOSCOPY 12/23/17 Past Anesthesia/Blood Transfusion Reactions: No Reported Reaction Past Psychological History: Depression Smoking Status: Former smoker Past Alcohol Use History: Daily Additional Past Alcohol Use History / Comment(s): quit smoking 1986, started smoking age 17. COUPLE BEERS DAILY Past Drug Use History: None Reported - Past Family History Father Family Medical History: Cancer, Congestive Heart Failure (CHF), Hypertension, Myocardial Infarction (CT) Additional Family Medical History / Comment(s): AT AGE 84-CT Mother Family Medical History: No Reported History Additional Family Medical History / Comment(s): MOM AT GE 60 MUSCULAR DYSTO PY Medications and Allergies Home Medications Medication Instructions Recorded Confirmed Type Sertraline HCl [Zoloft] 200 mg PO DAILY 10/30/13 07/01/18 History Simvastatin [Zocor] 10 mg PO DAILY 10/30/13 07/01/18 History Temazepam [Restoril] 30 mg PO HS 10/30/13 07/01/18 History Alfuzosin HCl [Uroxatral ER] 10 mg PO DAILY 01/14/18 07/01/18 History ALPRAZolam [Xanax] 0.5 mg PO DAILY PRN 06/10/18 07/01/18 History Cholecalciferol [Vitamin D3 (25 1,000 unit PO DAILY 06/10/18 07/01/18 History Mcg = 1000 Iu)] Mirabegron [Myrbetriq] 25 mg PO DAILY 06/10/18 07/01/18 History Apixaban [Eliquis] 5 mg PO BID #60 tab 06/12/18 07/01/18 Rx Metoprolol Tartrate [Lopressor] 50 mg PO BID #60 tab 06/12/18 07/01/18 Rx Furosemide [Lasix] 20 mg PO DAILY 30 Days #30 tab 06/13/18 07/01/18 Rx Acetaminophen [Tylenol Extra 500 - 1,000 mg PO HS 07/01/18 07/01/18 History Strength] Allergies Allergy/AdvReac Type Severity Reaction Status Date / Time hydrocodone bitartrate Allergy Anaphylaxis Verified 07/01/18 16:01 [From Vicodin] Penicillins Allergy Anaphylaxis Verified 07/01/18 16:01 propoxyphene napsylate Allergy Anaphylaxis Verified 07/01/18 16:01 [From Darvocet-N 100] tamsulosin HCl [From Flomax] Allergy Anaphylaxis Verified 07/01/18 16:01 Physical Exam Vitals: Vital Signs Temp Pulse Pulse Resp BP BP Pulse Ox 07/02/18 04:00 97.7 F 70 20 121/75 95 07/01/18 22:38 97.8 F 78 18 125/72 95 07/01/18 21:05 97.4 F L 73 20 125/72 95 07/01/18 20:15 79 20 140/86 96 07/01/18 19:47 75 18 130/93 07/01/18 18:40 98.0 F 80 18 114/78 96 07/01/18 17:00 89 18 118/77 94 L 07/01/18 15:49 77 18 102/62 96 07/01/18 14:58 97.6 F 67 22 132/63 94 L Intake and Output 07/01/18 07/02/18 07/02/18 22:59 06:59 14:59 Intake Total 230 Balance 230 Intake: Oral 230 Other: Weight 141.8 kg Head normocephalic Neck supple Lungs clear to auscultation bilaterally no wheezing or crackles Heart irregular rate Abdomen is soft nontender nondistended positive bowel sounds no hepatosplenomegaly Extremities no edema Neuro alert and orientated to 3 Results CBC & Chem 7: 07/02/18 03:43 07/02/18 03:43 Labs: Abnormal Lab Results - Last 24 Hours (Table) 07/01/18 07/01/18 07/02/18 Range/Units 15:45 15:45 03:43 MCV 101.6 H (80.0-100.0) fL Plt Count 106 L (150-450) k/uL Chloride 109 H 109 H (98-107) mmol/L BUN 32 H 33 H (9-20) mg/dL Total Protein 6.0 L 5.8 L (6.3-8.2) g/dL 07/02/18 Range/Units 03:43 MCV 101.7 H (80.0-100.0) fL Plt Count 110 L (150-450) k/uL Chloride (98-107) mmol/L BUN (9-20) mg/dL Total Protein (6.3-8.2) g/dL Thrombosis Risk Factor Assmnt - Choose All That Apply Any of the Below Risk Factors Present?: Yes Each Factor Represents 1 point: Abnormal pulmonary function (COPD), Obesity (BMI >25) Other Risk Factors: Yes Each Risk Factor Represents 3 Points: Age 75 years or older Other congenital or acquired thrombophilia - If yes, enter type in comment: No Thrombosis Risk Factor Assessment Total Risk Factor Score: 5 Thrombosis Risk Factor Assessment Level: High Risk Assessment and Plan Assessment: 1. Chest pain with shortness of breath. Troponins negative 3. Chest x-ray completed showing no acute cardiopulmonary process. Expiratory rotated exam. Per cardiology services to start blood pressures ordered. Possible stress test. Continue eliquis Lipitor Lasix and metoprolol 2. Mild systolic CHF exacerbation. Elevated BNP at 2700. Home medications of Lasix resumed. Recent 2-D echo completed showing an EF of 45-50% 3. Dizziness upon standing. Orthostatic pressures have been ordered 4. Persistent atrial fibrillation. Patient is maintained on eliquis for anticoagulation. 5. History of essential hypertension 6. Hyperlipidemia 7. Hearing disorder 8. History of GERD DVT prophylaxis eliquis. GI prophylaxis Protonix Time with Patient: Greater than 30 (Greater than 60% of the total time spent in counseling and coordination of care. I performed an examination of the patient and discussed their management with the Nurse Practitioner. I have reviewed the Nurse Practitioner's notes and agree with the documented findings and plan of care)
--- NOTE | 2018-07-02 13:56 | US ---
EXAMINATION TYPE: US carotid duplex BILAT DATE OF EXAM: 07/02/2018 COMPARISON: CT neck November 11, 2017 CLINICAL HISTORY: dizziness. dizziness EXAM MEASUREMENTS: RIGHT: Peak Systolic Velocity (PSV) cm/sec ----- Right CCA: 40.9 ----- Right ICA: 67.1 ----- Right ECA: 47.9 ICA/CCA ratio: 1.6 RIGHT: End Diastole cm/sec ----- Right CCA: 14.7 ----- Right ICA: 24.3 ----- Right ECA: 10.4 LEFT: Peak Systolic Velocity (PSV) cm/sec ----- Left CCA: 48.1 ----- Left ICA: 71.7 ----- Left ECA: 49.9 ICA/CCA ratio: 1.5 LEFT: End Diastole cm/sec ----- Left CCA: 11.2 ----- Left ICA: 33.0 ----- Left ECA: 10.3 VERTEBRALS (direction of flow): Right Vertebral: Antegrade Left Vertebral: Antegrade Rhythm: Arrhythmia Grayscale images show minimal plaque at right bifurcation. Velocity measurements and ratios remain wi thin normal limits in visualized portion of both internal carotid arteries. Note is made of underlyin g arrhythmia during real-time scanning. IMPRESSION: No hemodynamically significant stenosis is seen in either internal carotid artery. Findi ngs correlate with neck CT November 11, 2017. Note is made of underlying arrhythmia during real-eloy e scanning. If this is not known finding further investigation with cardiac monitoring would be advis ed. Criteria for Assigning % of Stenosis / Diameter reduction (Estimation based on the indirect measurements of the internal carotid artery velocities (ICA PSV). 1. Normal (no stenosis)=ICA PSV < 125 cm/s: ratio < 2.0: ICA EDV<40 cm/s. 2. Less than 50% stenosis=ICA PSV < 125 cm/s: ratio < 2.0: ICA EDV<40 cm/s. 3. 50 to 69% stenosis=ICA PSV of 125 to 230 cm/s: ration 2.0 ? 4.0: ICA EDV 40-100 cm/s. 4. Greater than 70% stenosis to near occlusion= ICA PSV > 230 cm/s: ratio > 4.0: ICA EDV > 100 cm/s. 5. Near occlusion= ICA PSV velocities may be low or undetectable: variable ratio and ICA EDV. 6. Total occlusion=unable to detect flow.
[2018-07-02] MEDS: TEMAZEPAM 30 MG CAP PO SCH (20:08)
[2018-07-03 06:17] LABS: Basophils % (A) 0 %; Eosinophils # (A) 0.2 k/uL (0-0.7); Eosinophils % (A) 2 %; HCT 45.8 % (39.0-53.0); HGB 13.8 gm/dL (13.0-17.5); Lymphocytes # (A) 1.4 k/uL (1.0-4.8); Lymphocytes % (A) 21 %; MCH 30.1 pg (25.0-35.0); MCHC 30.2 g/dL (31.0-37.0); MCV 99.8 fL (80.0-100.0); Macrocytosis Slight; Mean Platelet Volume 10.1; Monocytes # (A) 0.5 k/uL (0-1.0); Monocytes % (A) 7 %; Neutrophils # (A) 4.4 k/uL (1.3-7.7); Neutrophils % (A) 67 %; Platelet Count 103 k/uL (150-450); RBC 4.58 m/uL (4.30-5.90); RDW 14.9 % (11.5-15.5); WBC 6.6 k/uL (3.8-10.6)
[2018-07-03 06:24] LABS: Albumin 3.8 g/dL (3.5-5.0); Calcium 9.2 mg/dL (8.4-10.2); Potassium 4.2 mmol/L (3.5-5.1); Total Bilirubin 1.3 mg/dL (0.2-1.3); Total Protein 5.6 g/dL (6.3-8.2)
[2018-07-03] MEDS ORDERED: PANTOPRAZOLE 40 MG TABLET PO SCH (07:30)
[2018-07-03] MEDS: ATORVASTATIN 10 MG TAB PO SCH (08:32)
[2018-07-03] MEDS: METOPROLOL TARTRATE 50 MG TAB PO SCH (08:32)
[2018-07-03] MEDS: FUROSEMIDE 20 MG TAB PO SCH (08:33)
[2018-07-03] MEDS: APIXABAN 5 MG TAB PO SCH (08:33)
[2018-07-03] MEDS: CHOLECALCIFEROL 1,000 UNIT TAB PO SCH (08:33)
[2018-07-03] MEDS: SERTRALINE 100 MG TAB PO SCH (08:33)
[2018-07-03 08:56] VITALS: RESP 20; TEMP 97.6
--- NOTE | 2018-07-03 12:23 | P.PN ---
Subjective Progress Note Date: 07/03/18 This is a 73-year-old gentleman with history of hypertension, quit smoking 40 years ago, diabetes, family history of premature coronary artery disease, underwent a cardiac catheterization in 2013 which revealed minimal disease in the LAD, he also has history of chronic atrial fibrillation for which she takes Eliquis. Patient presents to the hospital on this occasion with symptoms of dizziness which he states she's been experiencing off and on for the past couple of months, he had a recent admission to the hospital in May of this year with similar symptoms. An echo was performed on that admission which revealed an ejection fraction of 45-50% LA was severely dilated. According to the patient, his episodes of dizziness occur mostly when he is in a standing position. As far as a chest tightness, he states he had 1 episode of tightness in the left upper chest region, overall he has not been experiencing any other symptoms of chest discomfort according to him. On arrival here his EKG showed atrial fibrillation with a heart rate in the 90s. Chest x-ray did not reveal any acute cardiopulmonary process. Blood pressure 120/70 with a heart rate in the 70s, 95% on room air. White blood cell count 4.7, hemoglobin 14, platelet count 110. Sodium 141, potassium 4.4, BUN 33 and creatinine 1.0. Troponins were negative 3. Cholesterol 101, triglycerides 80, LDL 36 and HDL 49. At the time of my examination this morning patient denies any dizziness, no chest discomfort. 07/03/2018 Patient was seen and examined this morning, overall feels well, no complaints, no palpitations or difficulty in breathing, no dizziness or lightheadedness today. Carotid Doppler study was performed did not reveal any hemodynamically significant stenosis. Blood pressure this morning 112/70 with a heart rate in the 70s, 93% on room air. Blood cell count 6.6, hemoglobin 13.8, platelet count 103. Sodium 140, potassium 4.2, BUN 30 and creatinine 1.1. Objective - Vital Signs Vital signs: Vital Signs Temp 97.6 F 07/03/18 08:15 Pulse 73 07/03/18 08:15 Resp 20 07/03/18 08:15 BP 112/73 07/03/18 08:15 Pulse Ox 93 L 07/03/18 08:15 Intake & Output 07/02/18 07/03/18 07/03/18 18:59 06:59 18:59 Intake Total 800 10 240 Balance 800 10 240 Weight 140.6 kg Intake: IV 10 Invasive Line 1 10 Oral 800 240 Other: Voiding Method Toilet # Voids 1 1 - Exam PHYSICAL EXAMINATION: GENERAL: 77-year-old gentleman in no acute distress at the time of my examination HEENT: Head is atraumatic, normocephalic. Pupils equal, round. Sclera anicteric. Conjunctiva are clear. Mucous membranes of the mouth are moist. Nec k is supple. There is no elevated jugular venous pressure. No carotid bruit is heard. HEART EXAMINATION: R S1 and S2 irregularly irregular a systolic ejection murmur is heard. CHEST EXAMINATION: Lungs are clear to auscultation and precussion. No chest wall tenderness is noted on palpation or with deep breathing. ABDOMEN: Soft, nontender. Bowel sounds are heard. No organomegaly noted. EXTREMITIES: 2+ peripheral pulses with trace evidence of peripheral edema and no calf tenderness noted. NEUROLOGIC patient is awake, alert and oriented 3 .] - Labs CBC & Chem 7: 07/03/18 05:39 07/03/18 05:39 Labs: Abnormal Lab Results - Last 24 Hours (Table) 07/03/18 07/03/18 Range/Units 05:39 05:39 MCHC 30.2 L (31.0-37.0) g/dL Plt Count 103 L (150-450) k/uL BUN 30 H (9-20) mg/dL Glucose 109 H (74-99) mg/dL Total Protein 5.6 L (6.3-8.2) g/dL Assessment and Plan Plan: Assessment and plan #1 symptoms of dizziness, mostly while in standing position. We will check orthostatics and monitor for any tachycardia or bradycardia arrhythmias. #2 one episode of chest tightness in the left upper chest area, atypical for acute coronary syndrome. EKG shows A. fib with a heart rate of 90 no acute changes noted. Troponins negative 3. Patient has undergone a cardiac catheterization in 2003 and 2013 which revealed minimal disease in the LAD and medical therapy advised at that time. #3 diabetes #4 hypertension #5 hyperlipidemia Plan Patient may be able to be discharged home today from cardiology's perspective, we'll make follow-up appointment in the office post discharge. DNP note has been reviewed, I agree with a documented findings and plan of care. Patient was seen and examined.
[2018-07-03 12:33] VITALS: BP 114/65; PULSE 84
--- NOTE | 2018-07-03 12:56 | P.DS ---
Providers Date of admission: 07/01/18 16:43 Expected date of discharge: 07/03/18 Attending physician: Juan C Beltran Consults: 07/01/18 16:58 Consult Physician Stat Consulting Provider: [facility] Consult Reason/Comments: chest pain, dizziness Do you want consulting provider notified?: Yes Primary care physician: Juan C Ruby [facility] Course: Discharge diagnosis 1. Chest pain with shortness of breath. Troponins negative 3. Chest x-ray completed showing no acute cardiopulmonary process. Expiratory rotated exam. Continue eliquis Lipitor Lasix and metoprolol. Symptoms have resolved. Cardiology recommending follow-up outpatient for outpatient stress test 2. Mild systolic CHF exacerbation. Elevated BNP at 2700. Home medications of Lasix resumed. Recent 2-D echo completed showing an EF of 45-50% 3. Dizziness upon standing. Orthostatics negative. Carotid Doppler completed showing no hemodynamically significant stenosis is seen in either internal carotid artery. 4. Persistent atrial fibrillation. Patient is maintained on eliquis for anticoagulation. 5. History of essential hypertension 6. Hyperlipidemia 7. Hearing disorder 8. History of GERD Hospital course This is a 77-year-old male patient who presented with complaints of chest pain shortness breath and dizziness. Approximately 2 weeks ago patient was admitted and diagnosed with atrial fibrillation. At that time patient was started on metoprolol and eliquis. Patient reports that he is been having shortness of breath intermittently started about 2 days ago along with chest tightness and dizziness on standing. Patient has past medical history of atrophic relation, GERD, hearing disorder, hyperlipidemia, hypertension, osteoarthritis, prostate disorder, ex-smoker and Depression. Troponins negative 3. Chest x-ray completed showing no acute cardiopulmonary process. Expiratory rotated exam. EKG completed showing atrial fibrillation with a heart rate of 97. BNP elevated at 2710. At that time cardiology services have been consulted. home Medications resumed. Patient denies any chest pain or shortness of breath. Patient denies nausea vomiting or diarrhea. Patient denies any urinary burning or frequency. On 07/03/2018 patient's alert and oriented 3. At this time patient denies any chest pain or shortness breath. Cardiology services have cleared patient for discharge. Recommend follow-up outpatient for possible outpatient stress test. Patient resumed on home medications. At this time patient denies chest pain or shortness breath. Patient denies nausea vomiting or diarrhea. Patient denies any urinary burning or frequency I performed an examination of the patient and discussed their management with the Nurse Practitioner. I have reviewed the Nurse Practitioner's notes and agree with the documented findings and plan of care Patient Condition at Discharge: Stable Plan - Discharge Summary Discharge Rx Participant: Yes New Discharge Prescriptions: Continue Temazepam [Restoril] 30 mg PO HS Simvastatin [Zocor] 10 mg PO DAILY Sertraline HCl [Zoloft] 200 mg PO DAILY Alfuzosin HCl [Uroxatral ER] 10 mg PO DAILY Mirabegron [Myrbetriq] 25 mg PO DAILY Cholecalciferol [Vitamin D3 (25 Mcg = 1000 Iu)] 1,000 unit PO DAILY ALPRAZolam [Xanax] 0.5 mg PO DAILY PRN PRN Reason: Anxiety Apixaban [Eliquis] 5 mg PO BID #60 tab Metoprolol Tartrate [Lopressor] 50 mg PO BID #60 tab Furosemide [Lasix] 20 mg PO DAILY 30 Days #30 tab Acetaminophen [Tylenol Extra Strength] 500 - 1,000 mg PO HS Discharge Medication List Sertraline HCl [Zoloft] 200 mg PO DAILY 10/30/13 [History] Simvastatin [Zocor] 10 mg PO DAILY 10/30/13 [History] Temazepam [Restoril] 30 mg PO HS 10/30/13 [History] Alfuzosin HCl [Uroxatral ER] 10 mg PO DAILY 01/14/18 [History] ALPRAZolam [Xanax] 0.5 mg PO DAILY PRN 06/10/18 [History] Cholecalciferol [Vitamin D3 (25 Mcg = 1000 Iu)] 1,000 unit PO DAILY 06/10/18 [History] Mirabegron [Myrbetriq] 25 mg PO DAILY 06/10/18 [History] Apixaban [Eliquis] 5 mg PO BID #60 tab 06/12/18 [Rx] Metoprolol Tartrate [Lopressor] 50 mg PO BID #60 tab 06/12/18 [Rx] Furosemide [Lasix] 20 mg PO DAILY 30 Days #30 tab 06/13/18 [Rx] Acetaminophen [Tylenol Extra Strength] 500 - 1,000 mg PO HS 07/01/18 [History] Follow up Appointment(s)/Referral(s): Brigitte Alvares MD [STAFF PHYSICIAN] - 1 Week Juan C Beltran MD [Primary Care Provider] - 07/11/18 11:30 am (Saturday) Activity/Diet/Wound Care/Special Instructions: Activity as tolerated Diet heart healthy Discharge Disposition: HOME SELF-CARE
== END 2018-07-03 14:08 | disposition home or self-care (01) ==
LOC: EC 14:56 → 3SCARD 16:43
PROVIDERS: ADMIT Internal Medicine; ATTEND Internal Medicine
DX: R07.89 Other chest pain (principal); I48.1 Persistent atrial fibrillation; I11.0 Hypertensive heart disease with heart failure; I50.20 Unspecified systolic (congestive) heart failure; H91.90 Unspecified hearing loss, unspecified ear; K21.9 Gastro-esophageal reflux disease without esophagitis; I48.2 Chronic atrial fibrillation; E78.5 Hyperlipidemia, unspecified; E11.9 Type 2 diabetes mellitus without complications; N40.0 Benign prostatic hyperplasia without lower urinary tract symptoms; R94.2 Abnormal results of pulmonary function studies; R42 Dizziness and giddiness; M19.90 Unspecified osteoarthritis, unspecified site; H93.19 Tinnitus, unspecified ear; F32.9 Major depressive disorder, single episode, unspecified; E66.9 Obesity, unspecified; Z68.38 Body mass index [BMI] 38.0-38.9, adult; Z88.5 Allergy status to narcotic agent; Z79.01 Long term (current) use of anticoagulants; Z79.899 Other long term (current) drug therapy; Z88.0 Allergy status to penicillin; Z88.8 Allergy status to other drugs, medicaments and biological substances; Z87.442 Personal history of urinary calculi; Z96.653 Presence of artificial knee joint, bilateral; Z98.42 Cataract extraction status, left eye; Z98.41 Cataract extraction status, right eye; Z87.891 Personal history of nicotine dependence; Z82.49 Family history of ischemic heart disease and other diseases of the circulatory system; Z80.9 Family history of malignant neoplasm, unspecified; Z82.0 Family history of epilepsy and other diseases of the nervous system
CPT/HCPCS: 99285; 36415; 93005; 83880; 80061; 80053 ×3; 83735; 84484 ×2; 85025 ×3; 85610; 85730; 71046; 93880; G0378 ×3

== ENCOUNTER 2018-07-26 02:50 | Inpatient (IN) | payer MEDICARE ==
--- NOTE | 2018-07-26 03:37 | ED ---
SOB HPI - General Chief Complaint: Shortness of Breath Stated Complaint: ABD pain Time Seen by Provider: 07/26/18 03:10 Source: patient Mode of arrival: EMS - History of Present Illness Initial Comments: Nick is a 77-year-old gentleman with a history of atrial fibrillation pres ents to the emergency department today for evaluation of shortness of breath and headache. Patient reports that he was in his usual state of health throughout the week this week, he was able to participate in a half around a golf on however that was cut short by the development of diarrhea. Patient reports he had diarrhea throughout the day the rest . Saturday he felt very fatigued. He began feeling short of breath and was unable to sleep, patient reports he feels like he's been trying to take deep breaths in his developed a headache. Patient states that he feels like a pressure in his that anytime he takes deep breath. Patient reports he feels like he can't catch his breath. Patient denies any history of congestive heart failure reports that he has been told by his battery stacker that he has no heart trouble at all. Patient is on Lasix and a beta bernardino. - Related Data Home Medications Medication Instructions Recorded Confirmed Sertraline HCl [Zoloft] 200 mg PO DAILY 10/30/13 07/01/18 Simvastatin [Zocor] 10 mg PO DAILY 10/30/13 07/01/18 Temazepam [Restoril] 30 mg PO HS 10/30/13 07/01/18 Alfuzosin HCl [Uroxatral ER] 10 mg PO DAILY 01/14/18 07/01/18 ALPRAZolam [Xanax] 0.5 mg PO DAILY PRN 06/10/18 07/01/18 Cholecalciferol [Vitamin D3 (25 1,000 unit PO DAILY 06/10/18 07/01/18 Mcg = 1000 Iu)] Mirabegron [Myrbetriq] 25 mg PO DAILY 06/10/18 07/01/18 Acetaminophen [Tylenol Extra 500 - 1,000 mg PO HS 07/01/18 07/01/18 Strength] Previous Rx's Medication Instructions Recorded Apixaban [Eliquis] 5 mg PO BID #60 tab 06/12/18 Metoprolol Tartrate [Lopressor] 50 mg PO BID #60 tab 06/12/18 Furosemide [Lasix] 20 mg PO DAILY 30 Days #30 tab 06/13/18 Allergies Allergy/AdvReac Type Severity Reaction Status Date / Time hydrocodone bitartrate Allergy Anaphylaxis Verified 07/26/18 07:10 [From Vicodin] Penicillins Allergy Anaphylaxis Verified 07/26/18 07:10 propoxyphene napsylate Allergy Anaphylaxis Verified 07/26/18 07:10 [From Darvocet-N 100] tamsulosin HCl [From Flomax] Allergy Anaphylaxis Verified 07/26/18 07:10 Review of Systems ROS Statement: Those systems with pertinent positive or pertinent negative responses have been documented in the HPI. ROS Other: All systems not noted in ROS Statement are negative. Past Medical History Past Medical History: Atrial Fibrillation, GERD/Reflux, Hearing Disorder / Deafness, Hyperlipidemia, Hypertension, Osteoarthritis (OA), Prostate Disorder Additional Past Medical History / Comment(s): Tinnitus, Hx kidney stones, BPH, LUNG SCARRING. C/O STOMACH UPSET, new dx afib History of Any Multi-Drug Resistant Organisms: None Reported Past Surgical History: Adenoidectomy, Ear Surgery, Heart Catheterization, Joint Replacement, Tonsillectomy Additional Past Surgical History / Comment(s): oral surgery, diana knee replacements, thyroid surgery, diana cataracts. EGD, COLONOSCOPY 12/23/17 Past Anesthesia/Blood Transfusion Reactions: No Reported Reaction Past Psychological History: Depression Smoking Status: Former smoker Past Alcohol Use History: Daily Past Drug Use History: None Reported - Past Family History Father Family Medical History: Cancer, Congestive Heart Failure (CHF), Hypertension, Myocardial Infarction ([place]) Additional Family Medical History / Comment(s): AT AGE 84-[place] Mother Family Medical History: No Reported History Additional Family Medical History / Comment(s): MOM AT GE 60 MUSCULAR DYSTOPY General Exam - General Exam Comments Initial Comments: Physical Exam GENERAL: Patient is well-developed and well-nourished. Tachypneic, Appears uncomfortable HENT: Normocephalic, Atraumatic. EYES: PERRL, EOMI PULMONARY: Tachypnea, crackles at the bases CARDIOVASCULAR: Irregularly irregular Warm and well perfused extremities No lower extremity edema ABDOMEN: Obese, Soft and nontender with normal bowel sounds. SKIN: Skin is clear with no lesions or rashes and otherwise unremarkable. : Deferred NEUROLOGIC: Patient is alert and oriented x3. Moving all extremities spontaneously MUSCULOSKELETAL: Normal extremities with adequate strength and full range of motion. No lower extremity swelling or edema. No calf tenderness. PSYCHIATRIC: Normal psychiatric evaluation Course Vital Signs 07/26/18 07/26/18 07/26/18 02:52 02:56 03:00 Temperature Pulse Rate 101 H 92 Respiratory 18 27 H 28 H Rate Blood Pressure 96/62 96/62 O2 Sat by Pulse 97 96 Oximetry 07/26/18 07/26/18 07/26/18 03:30 04:00 05:30 Temperature Pulse Rate 83 90 92 Respiratory 28 H 29 H 27 H Rate Blood Pressure 109/76 107/73 121/91 O2 Sat by Pulse 95 89 L Oximetry 07/26/18 07/26/18 07/26/18 06:00 06:30 06:56 Temperature 98.7 F Pulse Rate 118 H 112 H 112 H Respiratory 28 H 27 H 28 H Rate Blood Pressure 121/91 113/72 O2 Sat by Pulse 84 L 95 98 Oximetry Medical Decision Making - Medical Decision Making Patient was seen and evaluated history was obtained from the patient and at bedside. This is 77-year-old male with a history of atrial fibrillation presenting with shortness of breath. He shows reports he is having headache he does not have a history of headaches. This was not sudden onset left the worse headache of his life. No associated neurologic deficits. No associated fever. Patient is on anticoagulation due to history of A. fib. Labs and imaging were ordered At CT head with no acute findings Chest x-ray concerning for possible heart failure with pulmonary vascular congestion and pleural effusion EKG obtained due to complaint of shortness breath in a patient with no nature fibrillation. EKG obtained at 256 exam, rate is 98 rhythm is narrow complex irregularly irregular consistent with atrial fibrillation that is normal axis normal intervals, QRS 102, QTc [address] elevation is no evidence of acute ischemia or infarction. Patient is noted became tachycardic when he moved to the bedpan. Repeat EKG was obtained due to the tachycardia, repeat EKG was obtained at 6:46 AM, rate on this is 107 rhythm remains there are complex irregularly irregular consistent with atrial fibrillation. Normal axis normal intervals QRS 104, QTC 437 no evidence of acute ischemia or infarction. - Lab Data Result diagrams: 07/26/18 03:52 07/26/18 03:52 Lab Results 07/26/18 07/26/18 07/26/18 Range/Units 03:11 03:52 03:52 WBC 6.3 (3.8-10.6) k/uL RBC 4.38 (4.30-5.90) m/uL Hgb 13.8 (13.0-17.5) gm/dL Hct 44.0 (39.0-53.0) % MCV 100.3 H (80.0-100.0) fL MCH 31.4 (25.0-35.0) pg MCHC 31.3 (31.0-37.0) g/dL RDW 14.4 (11.5-15.5) % Plt Count 76 L (150-450) k/uL Neutrophils % 83 % Lymphocytes % 9 % Monocytes % 5 % Eosinophils % 2 % Basophils % 0 % Neutrophils # 5.3 (1.3-7.7) k/uL Lymphocytes # 0.6 L (1.0-4.8) k/uL Monocytes # 0.3 (0-1.0) k/uL Eosinophils # 0.1 (0-0.7) k/uL Basophils # 0.0 (0-0.2) k/uL Manual Slide Review Performed Large Platelets Present Hypochromasia Slight Macrocytosis Slight PT (9.0-12.0) sec INR (<1.2) APTT (22.0-30.0) sec Sodium 141 (137-145) mmol/L Potassium 4.1 (3.5-5.1) mmol/L Chloride 108 H (98-107) mmol/L Carbon Dioxide 25 (22-30) mmol/L Anion Gap 8 mmol/L BUN 28 H (9-20) mg/dL Creatinine 1.12 (0.66-1.25) mg/dL Est GFR (CKD-EPI)AfAm 74 (>60 ml/min/1.73 sqM) Est GFR (CKD-EPI)NonAf 64 (>60 ml/min/1.73 sqM) Glucose 96 (74-99) mg/dL Calcium 8.8 (8.4-10.2) mg/dL Total Bilirubin 1.0 (0.2-1.3) mg/dL AST 23 (17-59) U/L ALT 29 (21-72) U/L Alkaline Phosphatase 62 (38-126) U/L Troponin I (0.000-0.034) ng/mL NT-Pro-B Natriuret Pep 3820 pg/mL Total Protein 6.1 L (6.3-8.2) g/dL Albumin 4.1 (3.5-5.0) g/dL Urine Color Urine Appearance (Clear) Urine pH (5.0-8.0) Ur Specific [place] (1.001-1.035) Urine Protein (Negative) Urine Glucose (UA) (Negative) Urine Ketones (Negative) Urine Blood (Negative) Urine Nitrite (Negative) Urine Bilirubin (Negative) Urine Urobilinogen (<2.0) mg/dL Ur Leukocyte Esterase (Negative) Urine RBC (0-5) /hpf Urine WBC (0-5) /hpf Urine Mucus (None) /hpf 07/26/18 07/26/18 07/26/18 Range/Units 03:52 03:52 05:10 WBC (3.8-10.6) k/uL RBC (4.30-5.90) m/uL Hgb (13.0-17.5) gm/dL Hct (39.0-53.0) % MCV (80.0-100.0) fL MCH (25.0-35.0) pg MCHC (31.0-37.0) g/dL RDW (11.5-15.5) % Plt Count (150-450) k/uL Neutrophils % % Lymphocytes % % Monocytes % % Eosinophils % % Basophils % % Neutrophils # (1.3-7.7) k/uL Lymphocytes # (1.0-4.8) k/uL Monocytes # (0-1.0) k/uL Eosinophils # (0-0.7) k/uL Basophils # (0-0.2) k/uL Manual Slide Review Large Platelets Hypochromasia Macrocytosis PT 11.2 (9.0-12.0) sec INR 1.1 (<1.2) APTT 25.8 (22.0-30.0) sec Sodium (137-145) mmol/L Potassium (3.5-5.1) mmol/L Chloride (98-107) mmol/L Carbon Dioxide (22-30) mmol/L Anion Gap mmol/L BUN (9-20) mg/dL Creatinine (0.66-1.25) mg/dL Est GFR (CKD-EPI)AfAm (>60 ml/min/1.73 sqM) Est GFR (CKD-EPI)NonAf (>60 ml/min/1.73 sqM) Glucose (74-99) mg/dL Calcium (8.4-10.2) mg/dL Total Bilirubin (0.2-1.3) mg/dL AST (17-59) U/L ALT (21-72) U/L Alkaline Phosphatase (38-126) U/L Troponin I <0.012 (0.000-0.034) ng/mL NT-Pro-B Natriuret Pep pg/mL Total Protein (6.3-8.2) g/dL Albumin (3.5-5.0) g/dL Urine Color Yellow Urine Appearance Clear (Clear) Urine pH 5.5 (5.0-8.0) Ur Specific [place] 1.028 (1.001-1.035) Urine Protein Trace H (Negative) Urine Glucose (UA) Negative (Negative) Urine Ketones Negative (Negative) Urine Blood Small H (Negative) Urine Nitrite Negative (Negative) Urine Bilirubin Negative (Negative) Urine Urobilinogen <2.0 (<2.0) mg/dL Ur Leukocyte Esterase Negative (Negative) Urine RBC 9 H (0-5) /hpf Urine WBC 1 (0-5) /hpf Urine Mucus Rare H (None) /hpf Disposition Clinical Impression: Congestive heart failure Disposition: ADMITTED IP TO THIS HOSP Condition: Stable Referrals: Juan C Beltran MD [Primary Care Provider] - 1-2 days
[2018-07-26] MEDS ORDERED: diphenhydrAMINE 50 MG/ML 1 ML VIAL IVP STA (03:47)
[2018-07-26] MEDS ORDERED: METOCLOPRAMIDE 5 MG/ML 2 ML VIAL IVP STA (03:48)
[2018-07-26 04:04] LABS: Basophils % (A) 0 %; Eosinophils # (A) 0.1 k/uL (0-0.7); Eosinophils % (A) 2 %; HGB 13.8 gm/dL (13.0-17.5); Hypochromasia Slight; Lymphocytes # (A) 0.6 k/uL (1.0-4.8); Lymphocytes % (A) 9 %; MCH 31.4 pg (25.0-35.0); MCHC 31.3 g/dL (31.0-37.0); MCV 100.3 fL (80.0-100.0); Macrocytosis Slight; Monocytes # (A) 0.3 k/uL (0-1.0); Monocytes % (A) 5 %; Neutrophils # (A) 5.3 k/uL (1.3-7.7); Neutrophils % (A) 83 %; RBC 4.38 m/uL (4.30-5.90); RDW 14.4 % (11.5-15.5); WBC 6.3 k/uL (3.8-10.6)
[2018-07-26] MEDS: SODIUM CHLORIDE 0.9% 500 ML 500 ML IV SCH ×3 (04:08→05:00)
[2018-07-26 04:13] LABS: Albumin 4.1 g/dL (3.5-5.0); Calcium 8.8 mg/dL (8.4-10.2); Potassium 4.1 mmol/L (3.5-5.1); Total Protein 6.1 g/dL (6.3-8.2)
[2018-07-26 04:15] LABS: INR 1.1 (<1.2); Partial Thromboplastin Time 25.8 sec (22.0-30.0); Prothrombin Time 11.2 sec (9.0-12.0)
[2018-07-26 04:43] LABS: Large Platelets Present; Platelet Count 76 k/uL (150-450)
--- NOTE | 2018-07-26 04:45 | XR ---
EXAM: XR Chest, 2 Views CLINICAL HISTORY: Fever TECHNIQUE: Frontal and lateral views of the chest. COMPARISON: 07/01/2018. FINDINGS: Lungs: See below. Pleural space: Small bilateral pleural effusions. No pneumothorax. Heart: Cardiomegaly with findings suggestive of mild pulmonary vascular congestion/pulmonary edema suggestive of CHF, interval worsening since prior study. Mediastinum: Widened secondary to pulmonary vascular congestion. Bones/joints: Unremarkable. IMPRESSION: 1. Cardiomegaly with findings suggestive of mild pulmonary vascular congestion/pulmonary edema suggestive of CHF, interval worsening since prior study. Correlate clinically for superimposed infection. 2. Small bilateral pleural effusions.
--- NOTE | 2018-07-26 05:03 | CT ---
EXAM: CT Head Without Intravenous Contrast CLINICAL HISTORY: Headache. TECHNIQUE: Axial computed tomography images of the head/brain without intravenous contrast. CTDI is 49.27 mGy and DLP is 1306.4 mGy-cm. This CT exam was performed using one or more of the following dose reduction techniques: automated exposure control, adjustment of the mA and/or kV according to patient size, and/or use of iterative reconstruction technique. COMPARISON: 11/11/2017. FINDINGS: Brain: Age appropriate senescent changes. There is no evidence of an acute transcortical infarct or acute intracranial hemorrhage. Patchy areas of decreased attenuation are again seen involving the bilateral periventricular and subcortical white matter consistent with mild/moderate microangiopathy. Ventricles: Unremarkable. No ventriculomegaly. Bones/joints: Unremarkable. No acute fracture. Soft tissues: Unremarkable. Sinuses: Mild mucosal thickening involving the bilateral anterior ethmoid air cells. Mastoid air cells: Complete opacification of the right mastoid air cells with partial opacification of the left mastoid air cells, similar to prior study. IMPRESSION: 1. No evidence of an acute transcortical infarct or acute intracranial hemorrhage. 2. Mild/moderate microangiopathy. 3. Complete opacification of the right mastoid air cells with partial opacification of the left mastoid air cells, similar to prior study. Correlate clinically for mastoiditis.
[2018-07-26 05:48] LABS: Appearance,Urine Clear (Clear); Bilirubin,Urine Negative (Negative); Blood,Urine Small (Negative); Color,Urine Yellow; Glucose,Urine (UA) Negative (Negative); Ketones,Urine Negative (Negative); Leukocyte Esterase,Urine Negative (Negative); Mucus,Urine Rare /hpf; Nitrite,Urine Negative (Negative); PH, Urine 5.5 (5.0-8.0); Protein,Urine Trace (Negative); RBC,Urine 9 /hpf (0-5); Specific Gravity,Urine 1.028 (1.001-1.035); Urobilinogen,Urine <2.0 mg/dL (<2.0); WBC,Urine 1 /hpf (0-5)
[2018-07-26] MEDS ORDERED: ACETAMINOPHEN TAB 325 MG TAB PO STA (06:21)
[2018-07-26] MEDS ORDERED: ALPRAZolam 0.5 MG TAB PO PRN (07:13)
[2018-07-26] MEDS ORDERED: FUROSEMIDE 20 MG TAB PO SCH (09:00)
[2018-07-26] MEDS: SERTRALINE 100 MG TAB PO SCH (09:01)
[2018-07-26] MEDS: FUROSEMIDE 10 MG/ML 4 ML VIAL IV SCH ×3 (09:01→23:07)
[2018-07-26] MEDS: METOPROLOL TARTRATE 50 MG TAB PO SCH ×2 (09:01→20:27)
[2018-07-26] MEDS: APIXABAN 5 MG TAB PO SCH ×2 (09:01→20:27)
--- NOTE | 2018-07-26 14:56 | P.HPIM ---
History of Present Illness H&P Date: 07/26/18 Nick Vora, is a 77-year-old male who presented to [facility] emergency room with multiple vague symptoms, history was difficult to obtain from patient due to multiple symptoms and complaints. Patient states that he was laying down after he ate when he felt that his throat was closing down he was having difficulty swallowing and breathing, subsequently he started having some epigastric pain, some chest pain, and significant shortness of breath, patient states that he also started having the worst headache of his life and he decided to come to emergency room. Patient was evaluated in the emergency room by Dr. Mcnair, he underwent a chest x-ray that revealed evidence of cardiomegaly and findings suggestive of pulmonary vascular congestion and pulmonary edema, he also underwent computed tomography scan of the brain without contrast that revealed no evidence of intracranial bleeding, EKG was done and revealed evidence of atrial fibrillation heart rate [address] or T-wave changes suggest acute ischemia, CBC and CMP were within normal limits except for slightly elevated BUN suggestive of mild dehydration BNP was elevated at 3820 urine analysis was not suggestive of any infectious process. Patient was admitted to telemetry floor he was started on IV Lasix, cardiology consultation was requested. Patient was recently admitted to [facility] and was discharged about 1 month ago at that time he had evidence of acute systolic congestive heart failure exacerbation, echocardiogram revealed evidence of ejection fraction of 45-50%. Patient also has known history of chronic atrial fibrillation maintained on Eliquis. Past Medical History Past Medical History: Atrial Fibrillation, GERD/Reflux, Hearing Disorder / Deafness, Hyperlipidemia, Hypertension, Osteoarthritis (OA), Prostate Disorder Additional Past Medical History / Comment(s): Tinnitus, Hx kidney stones, BPH, LUNG SCARRING. C/O STOMACH UPSET, new dx afib History of Any Multi-Drug Resistant Organisms: None Reported Past Surgical History: Adenoidectomy, Ear Surgery, Heart Catheterization, Joint Replacement, Tonsillectomy Additional Past Surgical History / Comment(s): oral surgery, diana knee replacements, thyroid surgery, diana cataracts. EGD, COLONOSCOPY 12/23/17 Past Anesthesia/Blood Transfusion Reactions: No Reported Reaction Past Psychological History: Depression Smoking Status: Former smoker Past Alcohol Use History: Daily Additional Past Alcohol Use History / Comment(s): quit smoking 1986, started smoking age 17. COUPLE BEERS DAILY Past Drug Use History: None Reported - Past Family History Father Family Medical History: Cancer, Congestive Heart Failure (CHF), Hypertension, Myocardial Infarction ([place]) Additional Family Medical History / Comment(s): AT AGE 84-[place] Mother Family Medical History: No Reported History Additional Family Medical History / Comment(s): MOM AT GE 60 MUSCULAR DYSTOPY Medications and Allergies Home Medications Medication Instructions Recorded Confirmed Type Sertraline HCl [Zoloft] 200 mg PO DAILY 10/30/13 07/26/18 History Simvastatin [Zocor] 10 mg PO DAILY 10/30/13 07/26/18 History Temazepam [Restoril] 30 mg PO HS 10/30/13 07/26/18 History Alfuzosin HCl [Uroxatral ER] 10 mg PO DAILY 01/14/18 07/26/18 History ALPRAZolam [Xanax] 0.5 mg PO DAILY PRN 06/10/18 07/26/18 History Cholecalciferol [Vitamin D3 (25 1,000 unit PO DAILY 06/10/18 07/26/18 History Mcg = 1000 Iu)] Mirabegron [Myrbetriq] 25 mg PO DAILY 06/10/18 07/26/18 History Apixaban [Eliquis] 5 mg PO BID #60 tab 06/12/18 07/26/18 Rx Metoprolol Tartrate [Lopressor] 50 mg PO BID #60 tab 06/12/18 07/26/18 Rx Furosemide [Lasix] 20 mg PO DAILY 30 Days #30 tab 06/13/18 07/26/18 Rx Acetaminophen [Tylenol Extra 500 - 1,000 mg PO HS 07/01/18 07/26/18 History Strength] Allergies Allergy/AdvReac Type Severity Reaction Status Date / Time hydrocodone bitartrate Allergy Anaphylaxis Verified 07/26/18 07:10 [From Vicodin] Penicillins Allergy Anaphylaxis Verified 07/26/18 07:10 propoxyphene napsylate Allergy Anaphylaxis Verified 07/26/18 07:10 [From Darvocet-N 100] tamsulosin HCl [From Flomax] Allergy Anaphylaxis Verified 07/26/18 07:10 Physical Exam Vitals: Vital Signs Temp Pulse Pulse Pulse Resp BP BP 07/26/18 11:25 98.2 F 99 99 16 137/61 07/26/18 08:10 98.7 F 114 H 16 113/72 07/26/18 08:00 98.1 F 116 H 109 H 18 102/63 07/26/18 07:37 114 H 16 113/72 07/26/18 06:56 98.7 F 112 H 28 H 113/72 07/26/18 06:30 112 H 27 H 07/26/18 06:00 118 H 28 H 121/91 07/26/18 05:30 92 27 H 121/91 07/26/18 04:00 90 29 H 107/73 07/26/18 03:30 83 28 H 109/76 07/26/18 03:00 92 28 H 96/62 07/26/18 02:56 27 H 07/26/18 02:52 101 H 18 96/62 Pulse Ox 07/26/18 11:25 95 07/26/18 08:10 98 07/26/18 08:00 93 L 07/26/18 07:37 07/26/18 06:56 98 07/26/18 06:30 95 07/26/18 06:00 84 L 07/26/18 05:30 89 L 07/26/18 04:00 07/26/18 03:30 95 07/26/18 03:00 96 07/26/18 02:56 07/26/18 02:52 97 Intake and Output 07/25/18 07/26/18 07/26/18 22:59 06:59 14:59 Output Total 2250 Balance -2250 Output: Urine 2250 Other: Weight 143.335 kg 143.335 kg In general patient is alert and oriented 3 in no apparent distress HEENT head normocephalic and atraumatic Neck is supple no JVD no goiter no lymphadenopathy no carotid bruit Chest exam reveals a crackles in both lung pardo no wheezing Cardiac exam reveals irregular irregular heart sounds S1 and S2 no gallops no murmurs Abdomen is soft nontender obese no organomegaly no palpable masses was normal bowel sounds Extremity exam reveals 1+ edema no cyanosis or clubbing Neurological examination reveals no gross focal deficit Results CBC & Chem 7: 07/26/18 03:52 07/26/18 03:52 Labs: Abnormal Lab Results - Last 24 Hours (Table) 07/26/18 07/26/18 07/26/18 Range/Units 03:52 03:52 05:10 MCV 100.3 H (80.0-100.0) fL Plt Count 76 L (150-450) k/uL Lymphocytes # 0.6 L (1.0-4.8) k/uL Chloride 108 H (98-107) mmol/L BUN 28 H (9-20) mg/dL Total Protein 6.1 L (6.3-8.2) g/dL Urine Protein Trace H (Negative) Urine Blood Small H (Negative) Urine RBC 9 H (0-5) /hpf Urine Mucus Rare H (None) /hpf Microbiology - Last 24 Hours (Table) 07/26/18 05:10 Urine Culture - Preliminary Urine,Voided Thrombosis Risk Factor Assmnt - Choose All That Apply Each Factor Represents 1 point: Obesity (BMI >25) Each Risk Factor Represents 3 Points: Age 75 years or older Thrombosis Risk Factor Assessment Total Risk Factor Score: 4 Thrombosis Risk Factor Assessment Level: Moderate Risk Assessment and Plan Plan: #1 acute systolic congestive heart failure exacerbation patient was started on IV Lasix and was admitted to telemetry floor cardiology consultation requested. #2 underlying history of chronic persistent atrial fibrillation maintained on Eliquis for stroke prevention heart rate is well-controlled Will monitor #3 initial symptoms started with episode of feeling of throat closing with inability to swallow or breathe Will consult gastroenterology for possible EGD after being cleared by cardiology. #4 episode of severe headache with normal computed tomography scan of the brain without contrast done in the emergency room, at this time patient has mild headache Will treat symptomatically, will assess if any further testing is warranted. #5 at this time will add proton pump inhibitors to medication regimen Recheck labs and follow-up in a.m.
[2018-07-26] MEDS ORDERED: ACETAMINOPHEN TAB 500 MG TAB PO PRN (14:58)
[2018-07-26] MEDS: ACETAMINOPHEN TAB 500 MG TAB PO PRN (15:29)
[2018-07-26] MEDS: BENZOCAINE/MENTHOL LOZENG 1 EACH LOZENGE MUCOUS MEM PRN (15:29)
[2018-07-26] MEDS: ATORVASTATIN 10 MG TAB PO SCH (20:29)
[2018-07-26] MEDS: ALFUZOSIN HCL 10 MG PO SCH (20:29)
[2018-07-26] MEDS: HYDROmorphone 0.5 MG/0.5 ML SYRINGE IVP PRN (21:50)
[2018-07-26] MEDS: TEMAZEPAM 30 MG CAP PO SCH (23:09)
[2018-07-27] MEDS: HYDROmorphone 0.5 MG/0.5 ML SYRINGE IVP PRN ×5 (00:44→15:51)
[2018-07-27 06:43] LABS: Basophils % (A) 0 %; Eosinophils # (A) 0.1 k/uL (0-0.7); Eosinophils % (A) 1 %; HCT 41.6 % (39.0-53.0); HGB 13.3 gm/dL (13.0-17.5); Hypochromasia Slight; Lymphocytes # (A) 0.5 k/uL (1.0-4.8); Lymphocytes % (A) 7 %; MCH 31.7 pg (25.0-35.0); MCHC 32.1 g/dL (31.0-37.0); MCV 98.9 fL (80.0-100.0); Macrocytosis Slight; Mean Platelet Volume 10.1; Monocytes # (A) 0.5 k/uL (0-1.0); Monocytes % (A) 6 %; Neutrophils # (A) 7.1 k/uL (1.3-7.7); Neutrophils % (A) 86 %; RDW 15.1 % (11.5-15.5); WBC 8.3 k/uL (3.8-10.6)
[2018-07-27 06:44] LABS: Platelet Count 81 k/uL (150-450)
[2018-07-27 06:51] LABS: ALT 37 U/L (21-72); AST 35 U/L (17-59); African American GFR (CKD) >90 (>60 ml/min/1.73 sqM); Albumin 3.9 g/dL (3.5-5.0); Alkaline Phosphatase 63 U/L (38-126); Anion Gap 8 mmol/L; Blood Urea Nitrogen 25 mg/dL (9-20); Calcium 8.5 mg/dL (8.4-10.2); Carbon Dioxide 28 mmol/L (22-30); Chloride 104 mmol/L (98-107); Glucose 113 mg/dL (74-99); Potassium 3.7 mmol/L (3.5-5.1); Sodium 140 mmol/L (137-145); Total Bilirubin 3.4 mg/dL (0.2-1.3); Total Protein 6.1 g/dL (6.3-8.2)
[2018-07-27] MEDS: FUROSEMIDE 10 MG/ML 4 ML VIAL IV SCH ×3 (08:12→23:01)
[2018-07-27] MEDS: ATORVASTATIN 10 MG TAB PO SCH (08:13)
[2018-07-27] MEDS: SERTRALINE 100 MG TAB PO SCH (08:13)
[2018-07-27] MEDS: APIXABAN 5 MG TAB PO SCH ×2 (08:13→19:37)
[2018-07-27] MEDS: CHOLECALCIFEROL 1,000 UNIT TAB PO SCH (08:13)
[2018-07-27] MEDS: METOPROLOL TARTRATE 50 MG TAB PO SCH ×2 (08:13→19:37)
--- NOTE | 2018-07-27 09:19 | P.CRDCN ---
History of Present Illness Consult date: 07/27/18 History of present illness: This is a 77-year-old gentleman with history of of hypertension, atrial fibrillation, mild cardiomyopathy and also GERD disorder who was admitted to the hospital with multiple complaints. On of the complaint seems to be severe headache. Second complaint seemed to be difficulty swallowing as if throat is closing at times. He is also complaining of increasing shortness of breath mostly when he is has headache. He chest x-ray in the emergency room showed evidence of congestive heart failure. His proBNP is elevated. He was diagnosed to have atrial fibrillation recently and he was advised to be anticoagulated and be constricted for cardioversion. Patient has been on a liquid is 5 mg by mouth twice a day along with metoprolol. Since admission patient was initiated on Lasix 40 mg IV every 8 hours. He doesn't have any significant edema. Lungs show few crackles at the right base and there appears to mild JVD. I'm going to start him on lisinopril 5 mg daily. Continue IV Lasix for 24 hours and switched to by mouth Lasix. Continue treatment for his headache. Patient may be considered for cardioversion. Further recommendations depend upon the clinical course. If he didn't have any workup for ischemic heart disease, patient may be candidate for stress test later on. Review of Systems As per the chart Past Medical History Past Medical History: Atrial Fibrillation, GERD/Reflux, Hearing Disorder / Deafness, Hyperlipidemia, Hypertension, Osteoarthritis (OA), Prostate Disorder Additional Past Medical History / Comment(s): Tinnitus, Hx kidney stones, BPH, LUNG SCARRING. C/O STOMACH UPSET, new dx afib History of Any Multi-Drug Resistant Organisms: None Reported Past Surgical History: Adenoidectomy, Ear Surgery, Heart Catheterization, Joint Replacement, Tonsillectomy Additional Past Surgical History / Comment(s): oral surgery, diana knee replacements, thyroid surgery, diana cataracts. EGD, COLONOSCOPY 12/23/17 Past Anesthesia/Blood Transfusion Reactions: No Reported Reaction Past Psychological History: Depression Smoking Status: Former smoker Past Alcohol Use History: Daily Additional Past Alcohol Use History / Comment(s): quit smoking 1986, started smoking age 17. COUPLE BEERS DAILY Past Drug Use History: None Reported - Past Family History Father Family Medical History: Cancer, Congestive Heart Failure (CHF), Hypertension, Myocardial Infarction ([place]) Additional Family Medical History / Comment(s): AT AGE 84-[place] Mother Family Medical History: No Reported History Additional Family Medical History / Comment(s): MOM AT GE 60 MUSCULAR DYSTOPY Medications and Allergies Home Medications Medication Instructions Recorded Confirmed Type Sertraline HCl [Zoloft] 200 mg PO DAILY 10/30/13 07/26/18 History Simvastatin [Zocor] 10 mg PO DAILY 10/30/13 07/26/18 History Temazepam [Restoril] 30 mg PO HS 10/30/13 07/26/18 History Alfuzosin HCl [Uroxatral ER] 10 mg PO DAILY 01/14/18 07/26/18 History ALPRAZolam [Xanax] 0.5 mg PO DAILY PRN 06/10/18 07/26/18 History Cholecalciferol [Vitamin D3 (25 1,000 unit PO DAILY 06/10/18 07/26/18 History Mcg = 1000 Iu)] Mirabegron [Myrbetriq] 25 mg PO DAILY 06/10/18 07/26/18 History Apixaban [Eliquis] 5 mg PO BID #60 tab 06/12/18 07/26/18 Rx Metoprolol Tartrate [Lopressor] 50 mg PO BID #60 tab 06/12/18 07/26/18 Rx Furosemide [Lasix] 20 mg PO DAILY 30 Days #30 tab 06/13/18 07/26/18 Rx Acetaminophen [Tylenol Extra 500 - 1,000 mg PO HS 07/01/18 07/26/18 History Strength] Allergies Allergy/AdvReac Type Severity Reaction Status Date / Time hydrocodone bitartrate Allergy Anaphylaxis Verified 07/26/18 07:10 [From Vicodin] Penicillins Allergy Anaphylaxis Verified 07/26/18 07:10 propoxyphene napsylate Allergy Anaphylaxis Verified 07/26/18 07:10 [From Darvocet-N 100] tamsulosin HCl [From Flomax] Allergy Anaphylaxis Verified 07/26/18 07:10 Physical Exam Vitals: Vital Signs Temp Pulse Pulse Resp BP Pulse Ox 07/27/18 04:00 85 18 07/27/18 03:58 98.3 F 85 18 134/69 92 L 07/26/18 23:17 80 18 07/26/18 23:16 98.2 F 80 18 108/60 93 L 07/26/18 20:00 98.3 F 90 18 132/70 94 L 07/26/18 15:59 98.2 F 110 H 99 20 125/65 95 07/26/18 11:25 98.2 F 99 99 16 137/61 95 Intake and Output 07/26/18 07/27/18 07/27/18 22:59 06:59 14:59 Intake Total 740 500 480 Output Total 300 1800 Balance 440 -1300 480 Intake: Oral 740 500 480 Output: Urine 300 1800 Other: # Bowel Movements 1 Weight 141.2 kg GENERAL EXAM: Patient is alert and oriented and doesn't appear to be in any acute distress HEENT: Normocephalic. Normal reaction of pupils, equal size, normal range of extraocular motion. No erythema or exudates in the throat. NECK: No masses, no nuchal rigidity. Mild JVD CHEST: No chest wall deformity. LUNGS: Equal air entry with no crackles or wheeze. HEART: S1 and S2 normal with no audible mumurs or gallops. Irregular rhythm ABDOMEN: No hepatosplenomegaly, normal bowel sounds, no guarding or rigidity. SKIN: No rashes CENTRAL NERVOUS SYSTEM: No focal deficits. EXTREMITIES: No cyanosis, clubbing or edema. Results 07/27/18 06:01 07/27/18 06:01 Cardiac Enzymes 07/27/18 Range/Units 06:01 AST 35 (17-59) U/L CBC 07/27/18 Range/Units 06:01 WBC 8.3 (3.8-10.6) k/uL RBC 4.20 L (4.30-5.90) m/uL Hgb 13.3 (13.0-17.5) gm/dL Hct 41.6 (39.0-53.0) % Plt Count 81 L (150-450) k/uL Comprehensive Metabolic Panel 07/27/18 Range/Units 06:01 Sodium 140 (137-145) mmol/L Potassium 3.7 (3.5-5.1) mmol/L Chloride 104 (98-107) mmol/L Carbon Dioxide 28 (22-30) mmol/L BUN 25 H (9-20) mg/dL Creatinine 0.91 (0.66-1.25) mg/dL Glucose 113 H (74-99) mg/dL Calcium 8.5 (8.4-10.2) mg/dL AST 35 (17-59) U/L ALT 37 (21-72) U/L Alkaline Phosphatase 63 (38-126) U/L Total Protein 6.1 L (6.3-8.2) g/dL Albumin 3.9 (3.5-5.0) g/dL Current Medications Generic Name Dose Route Start Last Admin Trade Name Freq PRN Reason Stop Dose Admin Acetaminophen 500 - 1,000 mg 07/26/18 14:58 Tylenol Tab PO HS PRN Analgesia Acetaminophen 500 mg 07/26/18 15:19 07/26/18 15:29 Tylenol Tab PO 500 mg Q6HR PRN Administration Fever and/ or Mild Pain Alprazolam 0.5 mg 07/26/18 07:13 Xanax PO DAILY PRN Anxiety Apixaban 5 mg 07/26/18 09:00 07/27/18 08:13 Eliquis PO 5 mg BID KALEY Administration Atorvastatin Calcium 10 mg 07/26/18 15:15 07/27/18 08:13 Lipitor PO 10 mg DAILY [facility] Administration Benzocaine/Menthol 1 each 07/26/18 15:20 07/26/18 15:29 Cepacol Lozenge MUCOUS MEM 1 each Q2HR PRN Administration Sore Throat Cholecalciferol 1,000 unit 07/27/18 09:00 07/27/18 08:13 Vitamin D3 (25 Mcg = 1000 Iu) PO 1,000 unit DAILY [facility] Administration Furosemide 40 mg 07/26/18 08:00 07/27/18 08:12 Lasix IV 40 mg Q8HR KALEY Administration Hydromorphone HCl 0.5 mg 07/26/18 21:13 07/27/18 08:12 Dilaudid IVP 0.5 mg Q3HR PRN Administration Pain Lisinopril 5 mg 07/27/18 09:15 Zestril PO DAILY [facility] Metoprolol Tartrate 50 mg 07/26/18 09:00 07/27/18 08:13 Lopressor PO 50 mg BID [facility] Administration Non-Formulary Medication 10 mg 07/26/18 15:15 07/26/18 20:29 Alfuzosin Hcl [Uroxatral Er] PO Not Given DAILY [facility] Sertraline HCl 200 mg 07/26/18 09:00 07/27/18 08:13 Zoloft PO 200 mg DAILY [facility] Administration Temazepam 30 mg 07/26/18 21:00 07/26/18 23:09 Restoril PO Not Given HS KALEY Intake and Output 07/26/18 07/27/18 07/27/18 22:59 06:59 14:59 Intake Total 740 500 480 Output Total 300 1800 Balance 440 -1300 480 Intake: Oral 740 500 480 Output: Urine 300 1800 Other: # Bowel Movements 1 Weight 141.2 kg 07/27/18 06:01 07/27/18 06:01 EKG Interpretations (text) Atrial fibrillation Assessment and Plan (1) Acute combined systolic (congestive) and diastolic (congestive) heart failure Current Visit: Yes Status: Acute Code(s): I50.41 - ACUTE COMBINED SYSTOLIC AND DIASTOLIC (CONGESTIVE) HRT FAIL SNOMED Code(s): 972442207083110 (2) Cardiomyopathy Current Visit: Yes Status: Acute Code(s): I42.9 - CARDIOMYOPATHY, UNSPECIFIED SNOMED Code(s): 94616150 (3) Chronic atrial fibrillation Current Visit: Yes Status: Acute Code(s): I48.2 - CHRONIC ATRIAL FIBRILLATION SNOMED Code(s): 869370896 (4) Headache Current Visit: Yes Status: Acute Code(s): R51 - HEADACHE SNOMED Code(s): 95198274 Plan: From Cardec standpoint I will add lisinopril 5 mg. I'll continue with IV Lasix for 24 hours. May also consider for possible cardioversion. Repeat echocardiogram to assess LV function. Rest of the management as for primary care physician.
[2018-07-27] MEDS: ACETAMINOPHEN TAB 500 MG TAB PO PRN (09:35)
[2018-07-27] MEDS: BENZOCAINE/MENTHOL LOZENG 1 EACH LOZENGE MUCOUS MEM PRN (09:35)
[2018-07-27] MEDS: ALFUZOSIN HCL 10 MG PO SCH (10:31)
[2018-07-27] MEDS: LISINOPRIL 5 MG TAB PO SCH (11:04)
--- NOTE | 2018-07-27 12:06 | P.PN ---
Subjective Progress Note Date: 07/27/18 Nick Vora, is a 77-year-old male who presented to [facility] emergency room with multiple vague symptoms, history was difficult to obtain from patient due to multiple symptoms and complaints. Patient states that he was laying down after he ate when he felt that his throat was closing down he was having difficulty swallowing and breathing, subsequently he started having some epigastric pain, some chest pain, and significant shortness of breath, patient states that he also started having the worst headache of his life and he decided to come to emergency room. Patient was evaluated in the emergency room by Dr. Mcnair, he underwent a chest x-ray that revealed evidence of cardiomegaly and findings suggestive of pulmonary vascular congestion and pulmonary edema, he also underwent computed tomography scan of the brain without contrast that revealed no evidence of intracranial bleeding, EKG was done and revealed evidence of atrial fibrillation heart rate [address] or T-wave changes suggest acute ischemia, CBC and CMP were within normal limits except for slightly elevated BUN suggestive of mild dehydration BNP was elevated at 3820 urine analysis was not suggestive of any infectious process. Patient was admitted to telemetry floor he was started on IV Lasix, cardiology consultation was requested. Patient was recently admitted to [facility] and was discharged about 1 month ago at that time he had evidence of acute systolic congestive heart failure exacerbation, echocardiogram revealed evidence of ejection fraction of 45-50%. Patient also has known history of chronic atrial fibrillation maintained on Eliquis. On 07/27/2018 patient was seen and examined on the medical floor he is alert and oriented 3 in no apparent distress there is no fever or chills no headache at this time he was complaining of severe headache earlier that improved with IV Dilantin loaded and oral Xanax cause of severe episodic headache is not entirely clear Will consult neurology for evaluation or dizziness no chest pain no shortness of breath no cough no nausea or vomiting no abdominal pain no diarrhea and no urinary symptoms Objective - Vital Signs Vital signs: Vital Signs Temp 98.7 F 07/27/18 08:00 Pulse 79 07/27/18 08:00 Resp 22 07/27/18 08:00 BP 116/73 07/27/18 08:00 Pulse Ox 95 07/27/18 08:00 Intake & Output 07/26/18 07/27/18 07/27/18 18:59 06:59 18:59 Intake Total 480 1000 480 Output Total 2250 2100 300 Balance -1770 -1100 180 Weight 143.335 kg 141.2 kg Intake: Oral 480 1000 480 Output: Urine 2250 2100 300 Other: # Bowel Movements 1 - Exam In general patient is alert and oriented 3 in no apparent distress HEENT head normocephalic and atraumatic Neck is supple no JVD no goiter no lymphadenopathy no carotid bruit Chest exam reveals a crackles in both lung pardo no wheezing Cardiac exam reveals irregular irregular heart sounds S1 and S2 no gallops no murmurs Abdomen is soft nontender obese no organomegaly no palpable masses was normal bowel sounds Extremity exam reveals 1+ edema no cyanosis or clubbing Neurological examination reveals no gross focal deficit - Labs CBC & Chem 7: 07/27/18 06:01 07/27/18 06:01 Labs: Abnormal Lab Results - Last 24 Hours (Table) 07/27/18 07/27/18 Range/Units 06:01 06:01 RBC 4.20 L (4.30-5.90) m/uL Plt Count 81 L (150-450) k/uL Lymphocytes # 0.5 L (1.0-4.8) k/uL BUN 25 H (9-20) mg/dL Glucose 113 H (74-99) mg/dL Total Bilirubin 3.4 H (0.2-1.3) mg/dL Total Protein 6.1 L (6.3-8.2) g/dL Microbiology - Last 24 Hours (Table) 07/26/18 05:10 Urine Culture - Final Urine,Voided 07/26/18 03:52 Blood Culture - Preliminary Blood No Growth after 24 hours Assessment and Plan Plan: #1 acute systolic congestive heart failure exacerbation patient was started on IV Lasix and was admitted to telemetry floor cardiology consultation requested. #2 underlying history of chronic persistent atrial fibrillation maintained on Eliquis for stroke prevention heart rate is well-controlled Will monitor #3 initial symptoms started with episode of feeling of throat closing with inability to swallow or breathe Will consult gastroenterology for possible EGD after being cleared by cardiology. #4 episode of severe headache with normal computed tomography scan of the brain without contrast done in the emergency room, at this time patient has mild headache Will treat symptomatically, will consult neurology for evaluation #5 at this time will add proton pump inhibitors to medication regimen Recheck labs and follow-up in a.m.
--- NOTE | 2018-07-27 16:07 | P.CNNES ---
History of Present Illness Consult date: 07/27/18 Reason for Consult: Severe headache History of Present Illness: Patient is a 77-year-old male who states that he gets little headache once in a while, about 2-3 times a week, resolves after he takes couple Motrin or Tylenol. It always involves the bilateral frontal side of the head. Patient states that 2 days ago, he was eating some pork rhymes. Patient states that he has tendency of throat to close up on him. While eating pork rhymes, his throat closed up on him. He felt sharp pain in the throat. Later on he started noticing symptoms of indigestion, and the pain ascended from his stomach up to the throat, the neck and went to the head. Subsequently he started noticing left hemicranial headache involving the left facial region and left side of the head, with little extension to the right frontal region. The headache has been very severe, 10/10, with no nausea vomiting light or noise sensitivity. He described it as sharp, lightning pain, to the point that he wanted to end his life, as it was so severe. Patient says the headache was persistent for last 2 days, would not go away. However now it is improved 4/10 but still there. Patient denies any triggers for the headache, that would suggest trigeminal neuralgia. Patient denies any jaw claudication, fever or chills. Denies any recent head or neck trauma. Patient underwent computed tomography scan of the head, which revealed no evidence of acute infarct or acute intracranial hemorrhage. Chest x-ray showed cardiomegaly with findings suggestive of mild pulmonary vascular congestion/pulmonary edema suggestive of CHF. Small bilateral pleural effusion. EKG showed atrial fibrillation. Patient had a carotid Doppler performed 07/02/2018, which revealed no hemodynamically significant stenosis seen in either ICA. Findings correlate with neck CT. Patient had a prior computed tomography scan of soft tissue of neck with IV contrast on 11/11/2017 performed for "hearing loss, otalgia, right ear pain, neck pain". It was normal with no suspicious mass or adenopathy. Previous computed tomography scan of brain with IV contrast, and CT of internal auditory canal with contrast 11/11/2017 showed redemonstration of mild to moderate diffuse age-related cerebral atrophy and chronic small vessel ischemic change. No enhancing intraparenchymal mass. 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 Middle ear infection on the right is present, cannot exclude cholesteatoma. Suspect prior surgery at level of right sided stapes, correlate clinically. Patient's hemoglobin A1c 3.5 on 04/22/2014. TSH normal. Review of Systems As per HPI. Denies any double vision, loss of vision, although sometimes when he looks straight ahead, things starts moving around. Denies any focal numbness tingling weakness or stroke symptoms. No speech difficulty. Denies chest pain at this time. She does have shortness of breath, frequently pants. Past Medical History Past Medical History: Atrial Fibrillation, GERD/Reflux, Hearing Disorder / Deafness, Hyperlipidemia, Hypertension, Osteoarthritis (OA), Prostate Disorder Additional Past Medical History / Comment(s): Tinnitus, Hx kidney stones, BPH, LUNG SCARRING. C/O STOMACH UPSET, new dx afib History of Any Multi-Drug Resistant Organisms: None Reported Past Surgical History: Adenoidectomy, Ear Surgery, Heart Catheterization, Joint Replacement, Tonsillectomy Additional Past Surgical History / Comment(s): oral surgery, diana knee replacements, thyroid surgery, diana cataracts. EGD, COLONOSCOPY 12/23/17 Past Anesthesia/Blood Transfusion Reactions: No Reported Reaction Past Psychological History: Depression Smoking Status: Former smoker Past Alcohol Use History: Daily Additional Past Alcohol Use History / Comment(s): quit smoking 1986, started smoking age 17. COUPLE BEERS DAILY Past Drug Use History: None Reported - Past Family History Father Family Medical History: Cancer, Congestive Heart Failure (CHF), Hypertension, Myocardial Infarction ([place]) Additional Family Medical History / Comment(s): AT AGE 84-[place] Mother Family Medical History: No Reported History Additional Family Medical History / Comment(s): MOM AT GE 60 MUSCULAR DYSTOPY Medications and Allergies Home Medications Medication Instructions Recorded Confirmed Type Sertraline HCl [Zoloft] 200 mg PO DAILY 10/30/13 07/26/18 History Simvastatin [Zocor] 10 mg PO DAILY 10/30/13 07/26/18 History Temazepam [Restoril] 30 mg PO HS 10/30/13 07/26/18 History Alfuzosin HCl [Uroxatral ER] 10 mg PO DAILY 01/14/18 07/26/18 History ALPRAZolam [Xanax] 0.5 mg PO DAILY PRN 06/10/18 07/26/18 History Cholecalciferol [Vitamin D3 (25 1,000 unit PO DAILY 06/10/18 07/26/18 History Mcg = 1000 Iu)] Mirabegron [Myrbetriq] 25 mg PO DAILY 06/10/18 07/26/18 History Apixaban [Eliquis] 5 mg PO BID #60 tab 06/12/18 07/26/18 Rx Metoprolol Tartrate [Lopressor] 50 mg PO BID #60 tab 06/12/18 07/26/18 Rx Furosemide [Lasix] 20 mg PO DAILY 30 Days #30 tab 06/13/18 07/26/18 Rx Acetaminophen [Tylenol Extra 500 - 1,000 mg PO HS 07/01/18 07/26/18 History Strength] Allergies Allergy/AdvReac Type Severity Reaction Status Date / Time hydrocodone bitartrate Allergy Anaphylaxis Verified 07/26/18 07:10 [From Vicodin] Penicillins Allergy Anaphylaxis Verified 07/26/18 07:10 propoxyphene napsylate Allergy Anaphylaxis Verified 07/26/18 07:10 [From Darvocet-N 100] tamsulosin HCl [From Flomax] Allergy Anaphylaxis Verified 07/26/18 07:10 Physical Examination - Vital Signs Vital Signs: Vital Signs Temp Pulse Pulse Resp BP Pulse Ox 07/27/18 12:00 98.7 F 79 82 18 126/68 93 L 07/27/18 08:00 98.7 F 79 79 22 116/73 95 07/27/18 04:00 85 18 07/27/18 03:58 98.3 F 85 18 134/69 92 L 07/26/18 23:17 80 18 07/26/18 23:16 98.2 F 80 18 108/60 93 L 07/26/18 20:00 98.3 F 90 18 132/70 94 L 07/26/18 15:59 98.2 F 110 H 99 20 125/65 95 Intake and Output 07/27/18 07/27/18 07/27/18 06:59 14:59 22:59 Intake Total 500 960 Output Total 1800 300 Balance -1300 660 Intake: Oral 500 960 Output: Urine 1800 300 Other: # Bowel Movements 1 Weight 141.2 kg On examination patient is an elderly male, in no distress. He is alert and awake fully oriented speech and language functions are normal. On cranial nerve examination pupils are round and reactive to light, visual pardo are full, face is symmetric and tongue protrudes the midline. Palatal elevation sensation normal. On muscle strength testing there is no pronator drift and the strength is normal in arms and legs. Reflexes are diminished and plantars are downgoing sensory touch is equal. No ataxia for [id number] testing, tone and bulk of muscles normal. Gait deferred Results - Laboratory Findings CBC and BMP: 07/27/18 06:01 07/27/18 06:01 Abnormal Lab Findings: Abnormal Labs 07/26/18 07/26/18 07/26/18 03:52 03:52 05:10 RBC MCV 100.3 H Plt Count 76 L Lymphocytes # 0.6 L Chloride 108 H BUN 28 H Glucose Total Bilirubin Total Protein 6.1 L Urine Protein Trace H Urine Blood Small H Urine RBC 9 H Urine Mucus Rare H 07/27/18 07/27/18 06:01 06:01 RBC 4.20 L MCV Plt Count 81 L Lymphocytes # 0.5 L Chloride BUN 25 H Glucose 113 H Total Bilirubin 3.4 H Total Protein 6.1 L Urine Protein Urine Blood Urine RBC Urine Mucus Assessment and Plan Assessment: * New onset atypical left facial pain, including pain involving the whole left hemicranial region, unclear etiology. Rule out hemicrania continua. Patient's recent carotid Doppler, CT of the neck did not show any obvious mass. No significant paranasal sinus disease noted on CT head. Current examination is nonfocal. Patient's previous CT of the neck showed no evidence of TMJ abnormality. * Atrial fibrillation, on anticoagulation. * Hypertension * Hyperlipidemia Plan: * We will check ESR, CRP to rule out temporal arteritis, though less likely, as symptoms are unilateral. Symptoms do not appear typical trigeminal neuralgia either. 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 However patient is on anticoagulation, therefore poses hemorrhagic risks. We will try Fioricet for now. * We will follow clinically.
[2018-07-27] MEDS: BUTALB/APAP/CAFF 50-325-40MG TAB PO PRN ×2 (18:57→23:00)
--- NOTE | 2018-07-27 19:07 | P.CONS ---
History of Present Illness - Reason for Consult Consult date: 07/27/18 Difficulty swallowing Requesting physician: Juan C Beltran - Chief Complaint Difficulty breathing, difficulty swallowing, headache - History of Present Illness 77-year-old male with multiple medical comorbidities including hypertension, hyperlipidemia, atrial fibrillation and reflux who presented to the hospital with a constellation of symptoms. The patient reports lying down after eating and feeling as if his throat was closing up on him. He reports associated difficulty breathing and swallowing at that time as well as the worst headache of his life. During his hospitalization he has been seen by both the cardiology and neurology services. The patient did have a chest x-ray which revealed cardiomegaly and findings suggestive of pulmonary vascular congestion and pulmonary edema. Computed tomography scan of the head was negative for any evidence of intracranial bleeding. In conversation with the patient he reports that he has had these episodes of difficulty swallowing over the past few years. Typically there are with solid food such as pork rinds and cookies. He reports that they'll frequently happen after he finishes eating and then lies down. He did undergo evaluation with EGD and colonoscopy in 12/2017 with findings significant only for antral gastritis and diverticulosis. Laboratory evaluation has been significant for WBC 0.3, hemoglobin 13.3, platelet count 81,000, total bilirubin 1, alkaline phosphatase 62, AST 23 and ALT 29. Review of Systems REVIEW OF SYSTEMS: CONSTITUTIONAL: Denies any fevers, chills, weight change or fatigue. CARDIOVASCULAR: Denies any chest pain, palpitations high or low blood pressures RESPIRATORY: Denies any shortness of breath, hemoptysis or cough. GENITOURINARY: No dysuria or hematuria. MUSCULOSKELETAL: No weakness reported. SKIN: Denies any new rashes or lesions, jaundice or pallor. PSYCHIATRIC: Denies any depression or anxiety. NEUROLOGY: Denies headache, denies any new focal deficits. EARS/NOSE/THROAT: No recent hearing change, congestion, nasal discharge or sore throat. EYES: No pain in eyes, discharge or change in vision. GASTROINTESTINAL: As per HPI. Past Medical History Past Medical History: Atrial Fibrillation, GERD/Reflux, Hearing Disorder / Deafness, Hyperlipidemia, Hypertension, Osteoarthritis (OA), Prostate Disorder Additional Past Medical History / Comment(s): Tinnitus, Hx kidney stones, BPH, LUNG SCARRING. C/O STOMACH UPSET, new dx afib History of Any Multi-Drug Resistant Organisms: None Reported Past Surgical History: Adenoidectomy, Ear Surgery, Heart Catheterization, Joint Replacement, Tonsillectomy Additional Past Surgical History / Comment(s): oral surgery, diana knee replacements, thyroid surgery, diana cataracts. EGD, COLONOSCOPY 12/23/17 Past Anesthesia/Blood Transfusion Reactions: No Reported Reaction Past Psychological History: Depression Smoking Status: Former smoker Past Alcohol Use History: Daily Additional Past Alcohol Use History / Comment(s): quit smoking 1986, started smoking age 17. COUPLE BEERS DAILY Past Drug Use History: None Reported - Past Family History Father Family Medical History: Cancer, Congestive Heart Failure (CHF), Hypertension, Myocardial Infarction (HI) Additional Family Medical History / Comment(s): AT AGE 84-HI Mother Family Medical History: No Reported History Additional Family Medical History / Comment(s): MOM AT GE 60 MUSCULAR DYSTOPY Medications and Allergies Home Medications Medication Instructions Recorded Confirmed Type Sertraline HCl [Zoloft] 200 mg PO DAILY 10/30/13 07/26/18 History Simvastatin [Zocor] 10 mg PO DAILY 10/30/13 07/26/18 History Temazepam [Restoril] 30 mg PO HS 10/30/13 07/26/18 History Alfuzosin HCl [Uroxatral ER] 10 mg PO DAILY 01/14/18 07/26/18 History ALPRAZolam [Xanax] 0.5 mg PO DAILY PRN 06/10/18 07/26/18 History Cholecalciferol [Vitamin D3 (25 1,000 unit PO DAILY 06/10/18 07/26/18 History Mcg = 1000 Iu)] Mirabegron [Myrbetriq] 25 mg PO DAILY 06/10/18 07/26/18 History Apixaban [Eliquis] 5 mg PO BID #60 tab 06/12/18 07/26/18 Rx Metoprolol Tartrate [Lopressor] 50 mg PO BID #60 tab 06/12/18 07/26/18 Rx Furosemide [Lasix] 20 mg PO DAILY 30 Days #30 tab 06/13/18 07/26/18 Rx Acetaminophen [Tylenol Extra 500 - 1,000 mg PO HS 07/01/18 07/26/18 History Strength] Allergies Allergy/AdvReac Type Severity Reaction Status Date / Time hydrocodone bitartrate Allergy Anaphylaxis Verified 07/26/18 07:10 [From Vicodin] Penicillins Allergy Anaphylaxis Verified 07/26/18 07:10 propoxyphene napsylate Allergy Anaphylaxis Verified 07/26/18 07:10 [From Darvocet-N 100] tamsulosin HCl [From Flomax] Allergy Anaphylaxis Verified 07/26/18 07:10 Physical Exam Vitals: Vital Signs Temp Pulse Pulse Resp BP Pulse Ox 07/27/18 16:00 82 82 18 118/68 93 L 07/27/18 12:00 98.7 F 79 82 18 126/68 93 L 07/27/18 08:00 98.7 F 79 79 22 116/73 95 07/27/18 04:00 85 18 07/27/18 03:58 98.3 F 85 18 134/69 92 L 07/26/18 23:17 80 18 07/26/18 23:16 98.2 F 80 18 108/60 93 L 07/26/18 20:00 98.3 F 90 18 132/70 94 L Intake and Output 07/27/18 07/27/18 07/27/18 06:59 14:59 22:59 Intake Total 500 960 880 Output Total 1800 300 400 Balance -1300 660 480 Intake: Oral 500 960 880 Output: Urine 1800 300 400 Other: # Bowel Movements 1 Weight 141.2 kg On physical examination, patient appears comfortable in no apparent distress. HEAD: Normocephalic, atraumatic. EYES: No scleral icterus. No conjunctival injection. MOUTH: No lesions, tongue midline. NECK: Trachea midline, no gross abnormalities. CHEST: Clear to auscultation with no wheezing or rhonchi appreciated. HEART: S1-S2 appreciated. ABDOMEN: Soft, obese. Bowel sounds are positive. No organomegaly. No guarding or rigidity. EXTREMITIES: No pedal edema. SKIN: No rashes, no jaundice. NEUROLOGIC: Alert and oriented x3. No focal deficits. Results CBC & Chem 7: 07/27/18 06:01 07/27/18 06:01 Labs: Abnormal Lab Results - Last 24 Hours (Table) 07/27/18 07/27/18 07/27/18 Range/Units 06:01 06:01 06:01 RBC 4.20 L (4.30-5.90) m/uL Plt Count 81 L (150-450) k/uL Lymphocytes # 0.5 L (1.0-4.8) k/uL BUN 25 H (9-20) mg/dL Glucose 113 H (74-99) mg/dL Total Bilirubin 3.4 H (0.2-1.3) mg/dL C-Reactive Protein 166.6 H (<10.0) mg/L Total Protein 6.1 L (6.3-8.2) g/dL Microbiology - Last 24 Hours (Table) 07/26/18 05:10 Urine Culture - Final Urine,Voided 07/26/18 03:52 Blood Culture - Preliminary Blood No Growth after 24 hours Chest x-ray: report reviewed (X-ray suggestive of cardiomegaly and mild pulmonary vascular congestion) Assessment and Plan (1) Difficulty swallowing Narrative/Plan: 77-year-old male reporting intermittent episodes of difficulty swallowing usually occurring after eating solid foods such as propofol signs or cookies. He has undergone evaluation with EGD in 12/2017 with findings only of antral gastritis. At this time would recommend a trial of twice-daily PPI to rule out symptomatic reflux/esophagitis as a cause of the patient's symptoms. Differential also includes esophageal dysmotility, with anatomic defects such as ring or mass extremely unlikely in the setting of recent EGD. Current Visit: Yes Status: Acute Code(s): R13.10 - DYSPHAGIA, UNSPECIFIED SNOMED Code(s): 01700010 (2) GERD (gastroesophageal reflux disease) Current Visit: No Status: Acute Code(s): K21.9 - GASTRO-ESOPHAGEAL REFLUX DISEASE WITHOUT ESOPHAGITIS SNOMED Code(s): 028177047 Plan: Supportive care Okay for diet Extensive discussion with the patient on the need for modifications to eating habits, avoiding eating 2-3 hours before lying down and taking sips between bites of food, as well as sitting up while eating Trial of Protonix twice a day ordered, can be discharged on daily PPI therapy ( either Protonix or omeprazole) If patient continues to remain symptomatic can consider esophageal manometry for further characterization of his difficulty swallowing Continue further workup by other medical services No plan for endoscopic evaluation at this time given recent EGD and colonoscopy in 12/2017 Thank you for allowing us to participate in the care of the patient we will continue to follow
[2018-07-27] MEDS: PANTOPRAZOLE 40 MG TABLET PO SCH (19:37)
[2018-07-27] MEDS: TEMAZEPAM 30 MG CAP PO SCH (21:35)
[2018-07-28] MEDS: PANTOPRAZOLE 40 MG TABLET PO SCH ×2 (07:00→16:03)
[2018-07-28 07:09] LABS: Basophils % (A) 0 %; Eosinophils # (A) 0.1 k/uL (0-0.7); Eosinophils % (A) 1 %; HCT 40.9 % (39.0-53.0); HGB 12.9 gm/dL (13.0-17.5); Hypochromasia Slight; Lymphocytes # (A) 0.8 k/uL (1.0-4.8); Lymphocytes % (A) 11 %; MCH 31.7 pg (25.0-35.0); MCHC 31.6 g/dL (31.0-37.0); MCV 100.4 fL (80.0-100.0); Macrocytosis Slight; Mean Platelet Volume 10.1; Monocytes # (A) 0.6 k/uL (0-1.0); Monocytes % (A) 8 %; Neutrophils # (A) 5.8 k/uL (1.3-7.7); Neutrophils % (A) 78 %; RBC 4.08 m/uL (4.30-5.90); WBC 7.4 k/uL (3.8-10.6)
[2018-07-28 07:24] LABS: Platelet Count 86 k/uL (150-450)
[2018-07-28 07:29] LABS: Albumin 3.6 g/dL (3.5-5.0); Calcium 8.4 mg/dL (8.4-10.2); Potassium 3.6 mmol/L (3.5-5.1); Total Bilirubin 2.7 mg/dL (0.2-1.3); Total Protein 5.7 g/dL (6.3-8.2)
[2018-07-28] MEDS: ALFUZOSIN HCL 10 MG PO SCH (09:00)
[2018-07-28] MEDS: FUROSEMIDE 10 MG/ML 4 ML VIAL IV SCH (09:06)
[2018-07-28] MEDS: SERTRALINE 100 MG TAB PO SCH (09:06)
[2018-07-28] MEDS: ATORVASTATIN 10 MG TAB PO SCH (09:06)
[2018-07-28] MEDS: METOPROLOL TARTRATE 50 MG TAB PO SCH ×2 (09:06→20:55)
[2018-07-28] MEDS: CHOLECALCIFEROL 1,000 UNIT TAB PO SCH (09:06)
[2018-07-28] MEDS: APIXABAN 5 MG TAB PO SCH ×2 (09:06→20:55)
[2018-07-28] MEDS: BUTALB/APAP/CAFF 50-325-40MG TAB PO PRN ×3 (11:04→20:56)
[2018-07-28] MEDS: LISINOPRIL 5 MG TAB PO SCH (11:07)
--- NOTE | 2018-07-28 13:46 | P.PN ---
Subjective Progress Note Date: 07/28/18 Nick Vora, is a 77-year-old male who presented to [facility] emergency room with multiple vague symptoms, history was difficult to obtain from patient due to multiple symptoms and complaints. Patient states that he was laying down after he ate when he felt that his throat was closing down he was having difficulty swallowing and breathing, subsequently he started having some epigastric pain, some chest pain, and significant shortness of breath, patient states that he also started having the worst headache of his life and he decided to come to emergency room. Patient was evaluated in the emergency room by Dr. Mcnair, he underwent a chest x-ray that revealed evidence of cardiomegaly and findings suggestive of pulmonary vascular congestion and pulmonary edema, he also underwent computed tomography scan of the brain without contrast that revealed no evidence of intracranial bleeding, EKG was done and revealed evidence of atrial fibrillation heart rate [address] or T-wave changes suggest acute ischemia, CBC and CMP were within normal limits except for slightly elevated BUN suggestive of mild dehydration BNP was elevated at 3820 urine analysis was not suggestive of any infectious process. Patient was admitted to telemetry floor he was started on IV Lasix, cardiology consultation was requested. Patient was recently admitted to [facility] and was discharged about 1 month ago at that time he had evidence of acute systolic congestive heart failure exacerbation, echocardiogram revealed evidence of ejection fraction of 45-50%. Patient also has known history of chronic atrial fibrillation maintained on Eliquis. On 07/27/2018 patient was seen and examined on the medical floor he is alert and oriented 3 in no apparent distress there is no fever or chills no headache at this time he was complaining of severe headache earlier that improved with IV Dilaudid loaded and oral Xanax cause of severe episodic headache is not entirely clear Will consult neurology for evaluation or dizziness no chest pain no shortness of breath no cough no nausea or vomiting no abdominal pain no diarrhea and no urinary symptoms 07/28/2018 patient reports improvement in his shortness of breath and headache. Creatinine has gone up to 1.43. Discussed with cardiology nurse practitioner. She is ordered a chest x-ray for today and will be discontinuing the IV Lasix and restarted oral Lasix. 2-D echo is pending. But showing a consult is pending. Patient reports improvement in his swallowing now. However it really does depend on what he eats. GI services recommending Protonix or a PPI daily. There is no plan for endoscopy. Patient denies any chest pain or shortness of breath, nausea or vomiting, Bonny changes or urinary symptoms. CRP was eleva baldimir at 166.6. Patient is complaining of anxiety. Xanax was increased to be more frequent during this admission and he is on Zoloft. Objective - Vital Signs Vital signs: Vital Signs Temp 98.1 F 07/28/18 11:43 Pulse 80 07/28/18 11:44 Resp 20 07/28/18 11:44 BP 111/80 07/28/18 11:43 Pulse Ox 92 L 07/28/18 11:43 Intake & Output 07/27/18 07/28/18 07/28/18 18:59 06:59 18:59 Intake Total 1840 900 500 Output Total 700 200 200 Balance 1140 700 300 Weight 141.8 kg Intake: IV 60 20 Invasive Line 1 30 20 Invasive Line 2 30 Oral 1840 840 480 Output: Urine 700 200 200 Other: Voiding Method Toilet Toilet Urinal Urinal # Voids 3 1 - Exam Head normocephalic Neck supple Lungs clear to auscultation bilaterally no wheezing or crackles Heart regular rate and rhythm S1-S2, no rub or gallop Abdomen is soft nontender nondistended positive bowel sounds no hepatosplenomegaly Extremities no edema Neuro alert and orientated to 3 - Labs CBC & Chem 7: 07/28/18 06:27 07/28/18 06:27 Labs: Abnormal Lab Results - Last 24 Hours (Table) 07/27/18 07/28/18 07/28/18 Range/Units 06:01 06:27 06:27 RBC 4.08 L (4.30-5.90) m/uL Hgb 12.9 L (13.0-17.5) gm/dL MCV 100.4 H (80.0-100.0) fL Plt Count 86 L (150-450) k/uL Lymphocytes # 0.8 L (1.0-4.8) k/uL BUN 38 H (9-20) mg/dL Creatinine 1.43 H (0.66-1.25) mg/dL Total Bilirubin 2.7 H (0.2-1.3) mg/dL C-Reactive Protein 166.6 H (<10.0) mg/L Total Protein 5.7 L (6.3-8.2) g/dL Microbiology - Last 24 Hours (Table) 07/26/18 03:52 Blood Culture - Preliminary Blood No Growth after 48 hours Assessment and Plan Assessment: #1 acute systolic congestive heart failure exacerbation patient treated with IV Lasix and was admitted to telemetry floor cardiology consultation requested. 2- D echo and chest x-ray pending. Increase in his creatinine to 1.43. Cardiology be switching patient over to oral Lasix today. Cardiology did add lisinopril 5 mg daily #2 underlying history of chronic persistent atrial fibrillation maintained on Eliquis for stroke prevention heart rate is well-controlled Will monitor #3 initial symptoms started with episode of feeling of throat closing with inability to swallow or breathe: Patient seen by GI service no plan for EGD during this admission. Last EGD was December 2017 and had showed gastritis. GI services recommending Protonix or omeprazole daily 4. Headache: Patient seen by neurology. 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 Computed tomography scan of the brain was negative. Neurology did add Fioricet. Headache has resolved. CRP is elevated at 166.6 5. Generalized anxiety disorder continue with the Xanax 6. Acute kidney injury secondary to diuretics. Creatinine 1.43. Punch Press Setter is switched patient from IV Lasix to oral Lasix Plan Awaiting Dr. Morrow's evaluation Chest x-ray and 2-D echo results pending Consult physical therapy Possible discharge tomorrow I performed an examination of the patient and discussed their management with the physician Advertising Specialist. I have reviewed the Physician Advertising Specialist's notes and agree with the documented findings and plan of care
--- NOTE | 2018-07-28 14:47 | P.PN ---
Subjective Progress Note Date: 07/28/18 This is a 77-year-old gentleman with history of of hypertension, atrial fibrillation, mild cardiomyopathy and also GERD disorder who was admitted to the hospital with multiple complaints. On of the complaint seems to be severe headache. Second complaint seemed to be difficulty swallowing as if throat is closing at times. He is also complaining of increasing shortness of breath mostly when he is has headache. He chest x-ray in the emergency room showed evidence of congestive heart failure. His proBNP is elevated. He was diagnosed to have atrial fibrillation recently and he was advised to be anticoagulated and be constricted for cardioversion. Patient has been on a liquid is 5 mg by mouth twice a day along with metoprolol. Since admission patient was initiated on Lasix 40 mg IV every 8 hours. He doesn't have any significant edema. Lungs show few crackles at the right base and there appears to mild JVD. I'm going to start him on lisinopril 5 mg daily. Continue IV Lasix for 24 hours and switched to by mouth Lasix. Continue treatment for his headache. Patient may be considered for cardioversion. Further recommendations depend upon the clinical course. If he didn't have any workup for ischemic heart disease, patient may be candidate for stress test later on. 07/28/2018 Patient was seen and examined this morning, overall feeling better. He did have an echocardiogram with Doppler study performed in May of this year which revealed an ejection fraction of 45-50%. Blood pressure today 110/80 with a heart rate in the 80s.continues to be on IV Lasix.White blood cell count 7.4, hemoglobin 12.9, platelet count 86. Sodium 138, potassium 3.6, BUN 38 and creatinine 1.4. We will discontinue the IV Lasix today and car changer to oral diuretics. From tomorrow we will resume the Lasix 20 mg daily PO. Objective - Vital Signs Vital signs: Vital Signs Temp 98.1 F 07/28/18 11:43 Pulse 80 07/28/18 11:44 Resp 20 07/28/18 11:44 BP 111/80 07/28/18 11:43 Pulse Ox 92 L 07/28/18 11:43 Intake & Output 07/27/18 07/28/18 07/28/18 18:59 06:59 18:59 Intake Total 1840 900 500 Output Total 700 200 200 Balance 1140 700 300 Weight 141.8 kg Intake: IV 60 20 Invasive Line 1 30 20 Invasive Line 2 30 Oral 1840 840 480 Output: Urine 700 200 200 Other: Voiding Method Toilet Toilet Urinal Urinal # Voids 3 1 - Exam ENERAL EXAM: Patient is alert and oriented and doesn't appear to be in any acute distress HEENT: Normocephalic. Normal reaction of pupils, equal size, normal range of extraocular motion. No erythema or exudates in the throat. NECK: No masses, no nuchal rigidity. Mild JVD CHEST: No chest wall deformity. LUNGS: Equal air entry with no crackles or wheeze. HEART: S1 and S2 normal with no audible mumurs or gallops. Irregular rhythm ABDOMEN: No hepatosplenomegaly, normal bowel sounds, no guarding or rigidity. SKIN: No rashes CENTRAL NERVOUS SYSTEM: No focal deficits. EXTREMITIES: No cyanosis, clubbing or edema. - Labs CBC & Chem 7: 07/28/18 06:27 07/28/18 06:27 Labs: Abnormal Lab Results - Last 24 Hours (Table) 07/27/18 07/28/18 07/28/18 Range/Units 06:01 06:27 06:27 RBC 4.08 L (4.30-5.90) m/uL Hgb 12.9 L (13.0-17.5) gm/dL MCV 100.4 H (80.0-100.0) fL Plt Count 86 L (150-450) k/uL Lymphocytes # 0.8 L (1.0-4.8) k/uL BUN 38 H (9-20) mg/dL Creatinine 1.43 H (0.66-1.25) mg/dL Total Bilirubin 2.7 H (0.2-1.3) mg/dL C-Reactive Protein 166.6 H (<10.0) mg/L Total Protein 5.7 L (6.3-8.2) g/dL Microbiology - Last 24 Hours (Table) 07/26/18 03:52 Blood Culture - Preliminary Blood No Growth after 48 hours Assessment and Plan Plan: assessment and plan #1 systolic congestive heart failure acute on chronic #2 nonischemic cardio myopathy #3 chronic persistent atrial fibrillation #4 hypertension #5 hyperlipidemia Plan We're awaiting the results of the echocardiogram with Doppler study to reevaluate the LV function. We will continue IV Lasix for 24 hours. DNP note has been reviewed, I agree with a documented findings and plan of care. Patient was seen and examined.
--- NOTE | 2018-07-28 17:42 | P.PN ---
Subjective Progress Note Date: 07/28/18 Principal diagnosis: Difficulty swallowing Patient is seen lying in bed. He is reporting that he is tolerating his diet. No further episodes of difficulty swallowing. No nausea or vomiting reported. No abdominal pain reported. Objective - Vital Signs Vital signs: Vital Signs Temp 98.1 F 07/28/18 11:43 Pulse 80 07/28/18 11:44 Resp 20 07/28/18 11:44 BP 111/80 07/28/18 11:43 Pulse Ox 92 L 07/28/18 11:43 Intake & Output 07/27/18 07/28/18 07/28/18 18:59 06:59 18:59 Intake Total 1840 900 260 Output Total 700 200 200 Balance 1140 700 60 Weight 141.8 kg Intake: IV 60 20 Invasive Line 1 30 20 Invasive Line 2 30 Oral 1840 840 240 Output: Urine 700 200 200 Other: Voiding Method Toilet Toilet Urinal Urinal # Voids 3 1 - Exam On physical examination, patient appears comfortable in no apparent distress. HEAD: Normocephalic, atraumatic. EYES: No scleral icterus. No conjunctival injection. MOUTH: No lesions, tongue midline. NECK: Trachea midline, no gross abnormalities. CHEST: Clear to auscultation with no wheezing or rhonchi appreciated. HEART: S1-S2 appreciated. ABDOMEN: Soft, obese. Bowel sounds are positive. No organomegaly. No guarding or rigidity. EXTREMITIES: No pedal edema. SKIN: No rashes, no jaundice. NEUROLOGIC: Alert and oriented x3. No focal deficits. - Labs CBC & Chem 7: 07/28/18 06:27 07/28/18 06:27 Labs: Abnormal Lab Results - Last 24 Hours (Table) 07/27/18 07/28/18 07/28/18 Range/Units 06:01 06:27 06:27 RBC 4.08 L (4.30-5.90) m/uL Hgb 12.9 L (13.0-17.5) gm/dL MCV 100.4 H (80.0-100.0) fL Plt Count 86 L (150-450) k/uL Lymphocytes # 0.8 L (1.0-4.8) k/uL BUN 38 H (9-20) mg/dL Creatinine 1.43 H (0.66-1.25) mg/dL Total Bilirubin 2.7 H (0.2-1.3) mg/dL C-Reactive Protein 166.6 H (<10.0) mg/L Total Protein 5.7 L (6.3-8.2) g/dL Microbiology - Last 24 Hours (Table) 07/26/18 03:52 Blood Culture - Preliminary Blood No Growth after 48 hours 07/26/18 05:10 Urine Culture - Final Urine,Voided Assessment and Plan (1) Difficulty swallowing Narrative/Plan: 77-year-old male reporting intermittent episodes of difficulty swallowing usually occurring after eating solid foods such as propofol signs or cookies. He has undergone evaluation with EGD in 12/2017 with findings only of antral gastritis. At this time would recommend a trial of twice-daily PPI to rule out symptomatic reflux/esophagitis as a cause of the patient's symptoms. Differential also includes esophageal dysmotility, with anatomic defects such as ring or mass extremely unlikely in the setting of recent EGD. Current Visit: Yes Status: Acute Code(s): R13.10 - DYSPHAGIA, UNSPECIFIED SNOMED Code(s): 39094323 (2) GERD (gastroesophageal reflux disease) Current Visit: No Status: Acute Code(s): K21.9 - GASTRO-ESOPHAGEAL REFLUX DI SEASE WITHOUT ESOPHAGITIS SNOMED Code(s): 351736288 Plan: Supportive care Okay for diet Extensive discussion with the patient on the need for modifications to eating habits, avoiding eating 2-3 hours before lying down and taking sips between bites of food, as well as sitting up while eating Trial of Protonix twice a day ordered, can be discharged on daily PPI therapy (either Protonix or omeprazole) If patient continues to remain symptomatic can consider esophageal manometry for further characterization of his difficulty swallowing Continue further workup by other medical services No plan for endoscopic evaluation at this time given recent EGD and colonoscopy in 12/2017 Thank you for allowing us to participate in the care of the patient the GI service will stand by, please call us back with any questions or concerns
--- NOTE | 2018-07-28 17:47 | P.PN ---
Subjective Progress Note Date: 07/28/18 Patient states his headaches have much improved. Fioricet is helping. Patient's was also present. She states that the headache started on Saturday, was very intense, worst headache of life. Although patient states it was on left facial side and left side of the head, but his states it was holocephalic. He never had such headache like it. Previously used to get some mild headache, which will go away with OTC medication. Objective - Vital Signs Vital signs: Vital Signs Temp 98.0 F 07/28/18 16:26 Pulse 96 07/28/18 16:26 Resp 22 07/28/18 16:26 BP 90/50 07/28/18 16:26 Pulse Ox 96 07/28/18 16:26 Intake & Output 07/27/18 07/28/18 07/28/18 18:59 06:59 18:59 Intake Total 5032 696 7254 Output Total 700 200 400 Balance 1140 700 610 Weight 141.8 kg Intake: IV 60 30 Invasive Line 1 30 30 Invasive Line 2 30 Oral 1840 840 980 Output: Urine 700 200 400 Other: Voiding Method Toilet Toilet Urinal Urinal # Voids 3 1 - Exam Nonfocal. Mental status speech and average functions are normal cranial nerves are normal strength normal. - Labs CBC & Chem 7: 07/28/18 06:27 07/28/18 06:27 Labs: Abnormal Lab Results - Last 24 Hours (Table) 07/28/18 07/28/18 Range/Units 06:27 06:27 RBC 4.08 L (4.30-5.90) m/uL Hgb 12.9 L (13.0-17.5) gm/dL MCV 100.4 H (80.0-100.0) fL Plt Count 86 L (150-450) k/uL Lymphocytes # 0.8 L (1.0-4.8) k/uL BUN 38 H (9-20) mg/dL Creatinine 1.43 H (0.66-1.25) mg/dL Total Bilirubin 2.7 H (0.2-1.3) mg/dL Total Protein 5.7 L (6.3-8.2) g/dL Microbiology - Last 24 Hours (Table) 07/26/18 03:52 Blood Culture - Preliminary Blood No Growth after 48 hours Assessment and Plan Assessment: * New onset headache, worst headache of life, unclear etiology. Patient yesterday stated was left hemicranial headache, but now it states was global, left side worse. Rule out hemicrania continua. Rule out thunderclap headache. Patient's recent carotid Doppler, CT of the neck did not show any obvious mass. No significant paranasal sinus disease noted on CT head. Current examination is nonfocal. Patient's previous CT of the neck showed no evidence of TMJ abnormality. * Atrial fibrillation, on anticoagulation. * Hypertension * Hyperlipidemia Plan: * ESR is normal 3, CRP elevated 166/<10. Do not believe it is temporal arteritis. Symptoms do not appear typical trigeminal neuralgia either. * We will check CTA of head and neck to rule out any cerebral aneurysm. 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 However patient is on anticoagulation, therefore poses hemorrhagic risks. * Patient's headache much improved with Fioricet. Discussed with patient's in detail. * We will follow clinically.
--- NOTE | 2018-07-28 18:05 | XR ---
EXAMINATION TYPE: XR chest 2V DATE OF EXAM: 07/28/2018 COMPARISON: 07/26/2018 HISTORY: 77-year-old male follow-up CHF TECHNIQUE: PA and lateral views FINDINGS: Heart mildly enlarged. Mild interstitial prominence. Trace blunting of the posterior costophrenic ang les. Overall appearance to the pulmonary vasculature is improved from prior exam. No joanna consolidat ion. IMPRESSION: Improving CHF with residual mild pulmonary vascular congestion and trace effusions on the lateral vie w.
--- NOTE | 2018-07-28 18:13 | P.CNPUL ---
History of Present Illness Consult date: 07/28/18 Reason for consult: dyspnea, chest pain Chief complaint: Dyspnea, dysphagia, headache History of present illness: 77-year-old white male patient of Dr. 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 Patient does have remote history of smoking, she was at least a [id number] smoker, quit smoking 30 years ago. Had multiple orthopedic surgeries on his right knee, and history of left knee replacement. She follows with Dr. Gerber in the pulmonary clinic and outpatient PFT showed FEV1 of 1.93 L, or 52% of predicted, with forced vital capacity of 2.78 L or 54% of predicted, and mild diffusion defect. She presents the emergency department on 08/07/2018 with complaints of shortness of breath, severe headache, dysphagia. Apparently patient was at home, and he was laying down after she ate, and he felt like his throat was closing up and he was having difficulty swallowing and breathing, subsequently developed epigastric pain, some chest pain, severe headache. A chest x-ray in emergency department revealed evidence of cardiomegaly and findings suggestive of pulmonary vascular congestion and pulmonary edema. Denied any fever or chills, labs on admission showed white blood cell, 6.3, hemoglobin of 13.8, INR was 1.1, sodium was 141, potassium is 4.1, chloride was 108, BUN was 20 and creatinine was 1.12, proBNP was elevated at 3820, troponin was negative 1, urinalysis showed trace protein, small amount of blood, but negative for leukocyte esterase, and WBCs. Room air pulse ox is 96%, fever or chills, brain CT was completed showing no evidence of an acute transcortical infarct or acute intracranial hemorrhage. EKG was done and revealed evidence of atrial fibrillation without any ST or T-wave abnorm alities to suggest acute ischemia. She was given some IV doses of Lasix, he has been evaluated by cardiology. Patient does have a history of chronic congestive heart failure with systolic dysfunction, most recent echocardiogram showing ejection fraction of 45-50%. He is on chronic anticoagulation in the form of Eliquis. Started on doxycycline for empiric antibiotic coverage. His headache has resolved after 48 hours, he was evaluated by neurology, he has evidence of possible acute on chronic bilateral mastoiditis right greater than the left. Patient is a middle ear infection on the right, and cholecystectomy it, was also suspected. Evaluation patient is awake and alert, resting comfortably in bed, denies any shortness of breath currently. Pulse ox is 96%, patient denies any chest pain, fever or chills, lung sounds reveal equal air entry bilaterally, with no crackles or wheezes, patient continues on IV Lasix, his labs showed increase the patient's renal profile, with B1 at 38, and creatinine of 1.43, and the plan is to transition the patient oral Lasix starting tomorrow. No cough or congestion, or chest wall tenderness. Review of Systems All systems: negative Constitutional: Denies chills, Denies fever Eyes: denies blurred vision, denies pain Ears, nose, mouth and throat: Reports dysphagia, Denies headache, Denies sore throat Cardiovascular: Reports chest pain, Denies shortness of breath Respiratory: Reports dyspnea, Denies cough Gastrointestinal: Denies abdominal pain, Denies diarrhea, Denies nausea, Denies vomiting Musculoskeletal: Denies myalgias Integumentary: Denies pruritus, Denies rash Neurological: Reports headaches, Denies numbness, Denies weakness Psychiatric: Denies anxiety, Denies depression Endocrine: Denies fatigue, Denies weight change Past Medical History Past Medical History: Atrial Fibrillation, GERD/Reflux, Hearing Disorder / Deafness, Hyperlipidemia, Hypertension, Osteoarthritis (OA), Prostate Disorder Additional Past Medical History / Comment(s): Tinnitus, Hx kidney stones, BPH, LUNG SCARRING. C/O STOMACH UPSET, new dx afib History of Any Multi-Drug Resistant Organisms: None Reported Past Surgical History: Adenoidectomy, Ear Surgery, Heart Catheterization, Joint Replacement, Tonsillectomy Additional Past Surgical History / Comment(s): oral surgery, diana knee replacements, thyroid surgery, diana cataracts. EGD, COLONOSCOPY 12/23/17 Past Anesthesia/Blood Transfusion Reactions: No Reported Reaction Past Psychological History: Depression Smoking Status: Former smoker Past Alcohol Use History: Daily Additional Past Alcohol Use History / Comment(s): quit smoking 1986, started smoking age 17. COUPLE BEERS DAILY Past Drug Use History: None Reported - Past Family History Father Family Medical History: Cancer, Congestive Heart Failure (CHF), Hypertension, Myocardial Infarction ([place]) Additional Family Medical History / Comment(s): AT AGE 84-[place] Mother Family Medical History: No Reported History Additional Family Medical History / Comment(s): MOM AT GE 60 MUSCULAR DYSTOPY Medications and Allergies Home Medications Medication Instructions Recorded Confirmed Type Sertraline HCl [Zoloft] 200 mg PO DAILY 10/30/13 07/26/18 History Simvastatin [Zocor] 10 mg PO DAILY 10/30/13 07/26/18 History Temazepam [Restoril] 30 mg PO HS 10/30/13 07/26/18 History Alfuzosin HCl [Uroxatral ER] 10 mg PO DAILY 01/14/18 07/26/18 History ALPRAZolam [Xanax] 0.5 mg PO DAILY PRN 06/10/18 07/26/18 History Cholecalciferol [Vitamin D3 (25 1,000 unit PO DAILY 06/10/18 07/26/18 History Mcg = 1000 Iu)] Mirabegron [Myrbetriq] 25 mg PO DAILY 06/10/18 07/26/18 History Apixaban [Eliquis] 5 mg PO BID #60 tab 06/12/18 07/26/18 Rx Metoprolol Tartrate [Lopressor] 50 mg PO BID #60 tab 06/12/18 07/26/18 Rx Furosemide [Lasix] 20 mg PO DAILY 30 Days #30 tab 06/13/18 07/26/18 Rx Acetaminophen [Tylenol Extra 500 - 1,000 mg PO HS 07/01/18 07/26/18 History Strength] Allergies Allergy/AdvReac Type Severity Reaction Status Date / Time hydrocodone bitartrate Allergy Anaphylaxis Verified 07/26/18 07:10 [From Vicodin] Penicillins Allergy Anaphylaxis Verified 07/26/18 07:10 propoxyphene napsylate Allergy Anaphylaxis Verified 07/26/18 07:10 [From Darvocet-N 100] tamsulosin HCl [From Flomax] Allergy Anaphylaxis Verified 07/26/18 07:10 Physical Exam Vitals: Vital Signs Temp Pulse Pulse Resp BP Pulse Ox 07/28/18 16:26 98.0 F 96 22 90/50 96 07/28/18 16:25 76 80 20 07/28/18 11:44 76 80 20 07/28/18 11:43 98.1 F 80 20 111/80 92 L 07/28/18 09:12 76 22 07/28/18 09:11 97.1 F L 85 22 101/56 95 07/28/18 04:00 98.3 F 76 19 117/64 92 L 07/27/18 23:24 77 19 07/27/18 23:22 77 19 100/62 91 L 07/27/18 19:46 84 18 07/27/18 19:42 98.6 F 84 18 106/64 93 L Intake and Output 07/28/18 07/28/18 07/28/18 06:59 14:59 22:59 Intake Total 640 500 510 Output Total 200 200 200 Balance 440 300 310 Intake: IV 40 20 10 Invasive Line 1 20 20 10 Invasive Line 2 20 Oral 600 480 500 Output: Urine 200 200 200 Other: Voiding Method Toilet Toilet Toilet Urinal Urinal Urinal # Voids 3 1 1 Weight 141.8 kg GENERAL EXAM: Alert, pleasant, 77-year-old white male, on room air, with pulse ox of 96% comfortable in no apparent distress. HEAD: Normocephalic/atraumatic. EYES: Normal reaction of pupils, equal size. Conjunctiva pink, sclera white. NOSE: Clear with pink turbinates. THROAT: No erythema or exudates. NECK: No masses, no JVD, no thyroid enlargement, no adenopathy. CHEST: No chest wall deformity. Symmetrical expansion. LUNGS: Equal air entry with no crackles, wheeze, rhonchi or dullness. CVS: Regular rate and rhythm, normal S1 and S2, no gallops, no murmurs, no rubs ABDOMEN: Soft, nontender. No hepatosplenomegaly, normal bowel sounds, no guarding or rigidity. EXTREMITIES: No clubbing, no edema, no cyanosis, 2+ pulses and upper and lower extremities. MUSCULOSKELETAL: Muscle strength and tone normal. SPINE: No scoliosis or deformity SKIN: No rashes CENTRAL NERVOUS SYSTEM: Alert and oriented -3. No focal deficits, tone is normal in all 4 extremities. PSYCHIATRIC: Alert and oriented -3. Appropriate affect. Intact judgment and insight. Results - Laboratory Findings CBC and BMP: 07/28/18 06:27 07/28/18 06:27 PT/INR, D-dimer PT 11.2 sec (9.0-12.0) 07/26/18 03:52 INR 1.1 (<1.2) 07/26/18 03:52 Abnormal lab findings: Abnormal Labs 07/26/18 07/26/18 07/26/18 03:52 03:52 05:10 RBC Hgb MCV 100.3 H Plt Count 76 L Lymphocytes # 0.6 L Chloride 108 H BUN 28 H Creatinine Glucose Total Bilirubin C-Reactive Protein Total Protein 6.1 L Urine Protein Trace H Urine Blood Small H Urine RBC 9 H Urine Mucus Rare H 07/27/18 07/27/18 07/27/18 06:01 06:01 06:01 RBC 4.20 L Hgb MCV Plt Count 81 L Lymphocytes # 0.5 L Chloride BUN 25 H Creatinine Glucose 113 H Total Bilirubin 3.4 H C-Reactive Protein 166.6 H Total Protein 6.1 L Urine Protein Urine Blood Urine RBC Urine Mucus 07/28/18 07/28/18 06:27 06:27 RBC 4.08 L Hgb 12.9 L MCV 100.4 H Plt Count 86 L Lymphocytes # 0.8 L Chloride BUN 38 H Creatinine 1.43 H Glucose Total Bilirubin 2.7 H C-Reactive Protein Total Protein 5.7 L Urine Protein Urine Blood Urine RBC Urine Mucus - Diagnostic Findings Chest x-ray: report reviewed, image reviewed Additional studies: Results of the brain CT, EKG reviewed Assessment and Plan Plan: Assessment: #1. Acute exacerbation of chronic congestive heart failure with systolic dysfunction most recent echocardiogram showing EF of 45-50%. Chest x-ray showing findings of mild pulmonary vascular congestion and pulmonary edema suggestive of CHF #2. Severe headache, on admission, CT without acute intracranial process, and evidence of chronic bilateral mastoiditis, right greater than the left, middle ear infection on the right, and neurology following. Headache has been resolved #3. dysphasia, seen by GI service, no plan for EGD during this admission. Today's EGD in December 2017 gastritis, and was started on PPI therapy #4. Chronic A. fib, on chronic anticoagulation #5. Acute kidney injury related to diuretics #6. 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 Hypertension, dyslipidemia #8. Obstructive sleep apnea #9. Depression #10. Morbid obesity Plan: Chest x-ray has been reviewed, all diagnostics and labs have been reviewed by Dr. Schmitt, patient has been evaluated by Dr. Schmitt. Patient is being treated for acute exacerbation of chronic congestive heart failure with systolic dysfunction, currently breathing easier, diuretics are on hold related to increase in the renal function. His headache has resolved, he started on PPI therapy for his dysphagia, no plans for EGD, vital signs are stable, no fever or chills, tinea with the current doxycycline, oral anticoagulation. We'll continue to follow I performed a history & physical examination of the patient and discussed their management with my nurse practitioner, Alona Torres. I reviewed the nurse practitioner's note and agree with the documented findings and plan of care. Lung sounds are positive for diminished breath sounds. The findings and the impression was discussed with the patient. I attest to the documentation by the nurse practitioner. Time with Patient: Greater than 30
--- NOTE | 2018-07-28 19:07 | CONS ---
CONSULTATION REASON FOR CONSULTATION: Dysphagia. HISTORY: This is a 77-year-old white male who was admitted a few days ago with some dysphagia and shortness of breath as well as chiefly a considerable headache. The neurologist has been evaluating the patient. He has improved as far as the headache, but a CTA of the head was ordered for tomorrow. He also has had pulmonary consultation and gastroenterology consultation. The r d internship did not feel that this necessitated the EGD as he had one last fall that was overall unremarkable. The patient states that he has had intermittent episodes of dysphagia over the past 2 years and is mainly dry foods. He has mentioned this to Dr. Morrow in the past and has recommended he avoid dry foods. He has been more recently mostly seen our office up until last fall for chronic mastoiditis and has been seen at the [facility] for this also who had not recommended any further ear surgery. REVIEW OF SYSTEMS: CONSTITUTIONAL: Denies fever, chills. CARDIOVASCULAR: Denies palpitations, although has had some atrial fibrillation. RESPIRATORY: Denies cough. GENITOURINARY: No dysuria or hematuria. MUSCULOSKELETAL: No weakness. SKIN: Denies rashes. PSYCHIATRIC: Denies depression. NEUROLOGIC: No focal deficits although does have headache as noted. HEENT: Ear, nose, throat, hearing has been stable. No nasal congestion or sore throat. EYES no visual changes. GI as above. PAST MEDICAL HISTORY: For atrial fibrillation, GERD, hearing disorder as noted above. Hyperlipidemia, hypertension, osteoarthritis, prostate disorder, chronic tinnitus, BPH. PAST SURGICAL HISTORY: Adenoidectomy and mastoidectomy, heart catheterization, joint replacement, tonsillectomy, bilateral knee surgery, colonoscopy, EGD. SOCIAL HISTORY: Did smoke. Does not now. Drinks alcohol. FAMILY HISTORY: Positive for cancer, CHF, hypertension, myocardial infarction, muscular dystrophy. ALLERGIES: TO HYDROCODONE, PENICILLIN, DARVOCET, FLOMAX. HOME MEDICATIONS: Zoloft, Zocor, Restoril, Xanax, Uroxatral, vitamin D, Eliquis, Lopressor, Lasix, Nexium, Acetaminophen. PHYSICAL EXAM: Vital signs are overall stable. GENERAL: A well-developed adult white male in no acute distress. He is alert, awake, and oriented x3. No stridor or shortness of breath. Voice is normal. HEENT. HEAD: Normocephalic, atraumatic. Ears shows some scarring and retraction of tympanic membranes but no erythema or purulence. No mastoid or tragal tenderness on either side. The nose shows no drainage or obstruction. The septum does tend to the towards the right. The oropharynx shows no abnormal masses or erythema. Hypopharynx and larynx examined with flexible laryngoscopy shows no abnormal masses or lesions with normal vocal cord mobility. NECK: Supple without adenopathy or tenderness. ASSESSMENT: 1. Dysphagia. 2. Chronic middle ear and mastoid disease. 3. Hearing loss. PLAN: The patient has had ongoing dysphagia, which has been exacerbated somewhat recently, but no abnormalities noted on flexible laryngoscopy. May have functional disorder and therefore ordered barium swallow. He will otherwise follow up in our office with Dr. Morrow as an outpatient. He does have chronic middle ear disease, but no apparent active infection presently. If there are questions or concerns, please feel free to contact me. Note that consultation was 40 minutes with 75% of this in consultation and discussion of management. Thank you for this consultation. MMODL / IJN: [id number] /
--- NOTE | 2018-07-28 19:07 | PCN ---
PROCEDURE NOTE PREOP DIAGNOSIS: Dysphagia. POSTOP DIAGNOSIS: Dysphagia. PROCEDURE: Flexible laryngoscopy. ANESTHESIA: None. COMPLICATIONS: None. BLOOD LOSS: None. FINDINGS: No abnormalities noted in the right nasal cavity, nasopharynx, oropharynx, hypopharynx, or larynx with normal vocal cord mobility. PROCEDURE DESCRIPTION: The patient was in the hospital bed in a sitting position. Informed consent was obtained. Flexible laryngoscopy was performed with the systematic evaluation of the left nasal cavity, nasopharynx, oropharynx, hypopharynx and larynx with the above findings noted. The laryngoscope was withdrawn. Patient tolerated the procedure well with no complications. MMODL / IJN: [id number] /
[2018-07-28] MEDS: TEMAZEPAM 30 MG CAP PO SCH (20:54)
[2018-07-28] MEDS: DOXYCYCLINE 100 MG CAP PO SCH (20:55)
[2018-07-29] MEDS: ACETAMINOPHEN TAB 500 MG TAB PO PRN (00:48)
[2018-07-29] MEDS: PANTOPRAZOLE 40 MG TABLET PO SCH ×2 (06:33→17:46)
[2018-07-29 08:01] LABS: Basophils % (A) 0 %; Eosinophils # (A) 0.2 k/uL (0-0.7); Eosinophils % (A) 3 %; HCT 40.7 % (39.0-53.0); HGB 13.1 gm/dL (13.0-17.5); Hypochromasia Slight; Lymphocytes % (A) 16 %; MCHC 32.1 g/dL (31.0-37.0); MCV 99.6 fL (80.0-100.0); Macrocytosis Slight; Mean Platelet Volume 10.3; Monocytes # (A) 0.4 k/uL (0-1.0); Monocytes % (A) 7 %; Neutrophils # (A) 4.3 k/uL (1.3-7.7); Neutrophils % (A) 72 %; RBC 4.09 m/uL (4.30-5.90)
[2018-07-29 08:13] LABS: Platelet Count 93 k/uL (150-450)
[2018-07-29 08:23] LABS: Albumin 3.6 g/dL (3.5-5.0); Calcium 8.7 mg/dL (8.4-10.2); Total Bilirubin 1.7 mg/dL (0.2-1.3); Total Protein 5.8 g/dL (6.3-8.2)
[2018-07-29] MEDS: BUTALB/APAP/CAFF 50-325-40MG TAB PO PRN ×2 (08:28→20:35)
[2018-07-29 08:39] LABS: Potassium 3.9 mmol/L (3.5-5.1)
[2018-07-29] MEDS: DOXYCYCLINE 100 MG CAP PO SCH ×2 (10:52→20:35)
[2018-07-29] MEDS: SERTRALINE 100 MG TAB PO SCH (10:52)
[2018-07-29] MEDS: METOPROLOL TARTRATE 50 MG TAB PO SCH ×2 (10:52→20:35)
[2018-07-29] MEDS: APIXABAN 5 MG TAB PO SCH ×2 (10:53→20:36)
[2018-07-29] MEDS: ATORVASTATIN 10 MG TAB PO SCH (10:53)
[2018-07-29] MEDS: CHOLECALCIFEROL 1,000 UNIT TAB PO SCH (10:53)
[2018-07-29] MEDS: LISINOPRIL 5 MG TAB PO SCH (10:53)
[2018-07-29] MEDS: ALFUZOSIN HCL 10 MG PO SCH (10:56)
--- NOTE | 2018-07-29 10:56 | FL ---
EXAMINATION TYPE: FL barium swallow DATE OF EXAM: 07/29/2018 CLINICAL HISTORY: Difficulty swallowing for 4 years. Feels like throat is closed and burning sensatio n when swallowing. TECHNIQUE: A double contrast esophagram is performed utilizing air and barium. A total of 12 second s of fluoroscopic time was utilized during procedure. 63 images are saved to PACS. COMPARISON: None FINDINGS: The esophagus shows satisfactory motility and emptying into the stomach. No evidence of lacey spicious mass or stricture noted with particular attention to the proximal esophagus at area of patie nt concern. No fixed hiatal hernia is present. No significant gastroesophageal reflux was seen during real time performance of this study. IMPRESSION: No significant abnormality is seen to account for patient's symptoms.
--- NOTE | 2018-07-29 11:11 | CT ---
EXAMINATION TYPE: CT angio head neck DATE OF EXAM: 07/29/2018 HISTORY: Worst headache of life. Weakness. COMPARISON: Carotid ultrasound July 02, 2018 CT DLP: 625 mGycm. Automated Exposure Control for Dose Reduction was Utilized. TECHNIQUE: CTA scan of the had and neck are performed with IV Contrast, patient injected with 50 mL of Isovue 370, axial images are obtained, coronal and sagittal reformatted images are reviewed. Three -D reconstructed images are created on an independent workstation and reviewed. FINDINGS: Carotid/Vascular Structures: Mild calcified plaque in aortic arch is seen extending into 3 great vess els. No significant stenosis is present. Right common carotid artery shows normal origin from right b rachiocephalic artery with slightly tortuous course. There is mild calcified plaque in the proximal r ight internal carotid artery. No significant stenosis is seen in right common or internal carotid art jarred, mild calcified plaque supraclinoid segment is present. Right internal carotid artery has tortuou s course. Right external carotid artery is patent without significant plaque or stenosis. There is some tortuous course to the left common carotid artery without significant plaque or stenos is. No significant plaque at left carotid bulb is present. There is patent external carotid artery wi thout significant plaque or stenosis. There is mild calcified plaque in supraclinoid segment left int ernal carotid artery without significant stenosis. There is codominant vertebral basilar system. Vertebral arteries are patent to basilar junction. Hypo plastic bilateral posterior communicating arteries are felt present. No significant focal stenosis or aneurysmal change in posterior circulation is seen. Images of the anterior circulation show poorly o pacified arteries making evaluation suboptimal. No obvious aneurysm or significant focal stenosis. Sm all caliber but patent anterior communicating artery is felt present. Other: There is heterogeneous enlarged left thyroid lobe with nonvisualized presumed surgically absen t right thyroid lobe. Suspect left-sided goiter. 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 There are scattered subcentimeter lymph nodes throughout the neck bilaterally. No definitive greater than 1 cm neck adenopathy is present. There is dextroconvex scoliotic curvature centered in the upper thoracic spine with multilevel spurri ng and facet arthropathy. IMPRESSION: 1. Suboptimal CTA [place] of [place] due to poor bolus without obvious aneurysm. 2. No significant stenosis in common or internal carotid arteries, findings correlate with recent car otid ultrasound.
--- NOTE | 2018-07-29 13:31 | P.PN ---
Subjective Progress Note Date: 07/29/18 Nick Vora, is a 77-year-old male who presented to [facility] emergency room with multiple vague symptoms, history was difficult to obtain from patient due to multiple symptoms and complaints. Patient states that he was laying down after he ate when he felt that his throat was closing down he was having difficulty swallowing and breathing, subsequently he started having some epigastric pain, some chest pain, and significant shortness of breath, patient states that he also started having the worst headache of his life and he decided to come to emergency room. Patient was evaluated in the emergency room by Dr. Mcnair, he underwent a chest x-ray that revealed evidence of cardiomegaly and findings suggestive of pulmonary vascular congestion and pulmonary edema, he also underwent computed tomography scan of the brain without contrast that revealed no evidence of intracranial bleeding, EKG was done and revealed evidence of atrial fibrillation heart rate [address] or T-wave changes suggest acute ischemia, CBC and CMP were within normal limits except for slightly elevated BUN suggestive of mild dehydration BNP was elevated at 3820 urine analysis was not suggestive of any infectious process. Patient was admitted to telemetry floor he was started on IV Lasix, cardiology consultation was requested. Patient was recently admitted to [facility] and was discharged about 1 month ago at that time he had evidence of acute systolic congestive heart failure exacerbation, echocardiogram revealed evidence of ejection fraction of 45-50%. Patient also has known history of chronic atrial fibrillation maintained on Eliquis. On 07/27/2018 patient was seen and examined on the medical floor he is alert and oriented 3 in no apparent distress there is no fever or chills no headache at this time he was complaining of severe headache earlier that improved with IV Dilaudid loaded and oral Xanax cause of severe episodic headache is not entirely clear Will consult neurology for evaluation or dizziness no chest pain no shortness of breath no cough no nausea or vomiting no abdominal pain no diarrhea and no urinary symptoms 07/28/2018 patient reports improvement in his shortness of breath and headache. Creatinine has gone up to 1.43. Discussed with cardiology nurse practitioner. She is ordered a chest x-ray for today and will be discontinuing the IV Lasix and restarted oral Lasix. 2-D echo is pending. But showing a consult is pending. Patient reports improvement in his swallowing now. However it really does depend on what he eats. GI services recommending Protonix or a PPI daily. There is no plan for endoscopy. Patient denies any chest pain or shortness of breath, nausea or vomiting, Bonny changes or urinary symptoms. CRP was eleva bladimir at 166.6. Patient is complaining of anxiety. Xanax was increased to be more frequent during this admission and he is on Zoloft. 07/29/2018 patient is lying in bed comfortably. Denies any shortness of breath or chest pain. Headache has improved with the Fioricet. He is still requiring the Fioricet. Creatinine has gone from 1.43-1.42. Patient will be placed on normal saline at 50 mL an hour due to the elevated creatinine. Lasix is currently on hold. Chest x-ray shows improving CHF. Patient underwent flexible laryngoscopy yesterday with Dr. Alcantara results are normal. CT had a of the head completed showing a suboptimal CTA [place] due to poor bolus without obvious aneurysm. No significant stenosis in the common internal carotid arteries. He also had a barium swallow which was normal. Patient reports improvement of his swallowing today. Patient reports regular bowel movements. Denies any nausea vomiting or any difficulty urinating. Objective - Vital Signs Vital signs: Vital Signs Temp 97.4 F L 07/29/18 12:00 Pulse 85 07/29/18 12:00 Resp 20 07/29/18 12:00 BP 120/78 07/29/18 12:00 Pulse Ox 95 07/29/18 12:00 Intake & Output 07/28/18 07/29/18 07/29/18 18:59 06:59 18:59 Intake Total 1010 280 180 Output Total 400 600 175 Balance 610 -320 5 Weight 142 kg Intake: IV 30 Invasive Line 1 30 Oral 980 280 180 Output: Urine 400 600 175 Other: Voiding Method Toilet Toilet Toilet Urinal Urinal Urinal # Voids 1 - Exam Head normocephalic Neck supple Lungs clear to auscultation bilaterally no wheezing or crackles Heart regular rate and rhythm S1-S2, no rub or gallop Abdomen is soft nontender nondistended positive bowel sounds no hepatosplenomegaly Extremities no edema Neuro alert and orientated to 3 - Labs CBC & Chem 7: 07/29/18 06:57 07/29/18 06:57 Labs: Abnormal Lab Results - Last 24 Hours (Table) 07/29/18 07/29/18 Range/Units 06:57 06:57 RBC 4.09 L (4.30-5.90) m/uL Plt Count 93 L (150-450) k/uL BUN 48 H (9-20) mg/dL Creatinine 1.42 H (0.66-1.25) mg/dL Glucose 102 H (74-99) mg/dL Total Bilirubin 1.7 H (0.2-1.3) mg/dL Total Protein 5.8 L (6.3-8.2) g/dL Microbiology - Last 24 Hours (Table) 07/26/18 03:52 Blood Culture - Preliminary Blood No Growth after 72 hours Assessment and Plan Assessment: #1 acute systolic congestive heart failure exacerbation patient treated with IV Lasix. Lasix is currently on hold due to the rising creatinine. Creatinine also added lisinopril during this admission. Patient had echo May 2018. With an EF of 45-50%. Chest x-ray showed improvement #2 underlying history of chronic persistent atrial fibrillation maintained on Eliquis for stroke prevention and continue metoprolol for rate control #3 difficulty swallowing and throat closing. Patient seen by GI service no plan for EGD during this admission. Last EGD was December 2017 and had showed gastritis. GI services recommending Protonix or omeprazole daily at time of discharge. Also evaluated by ENT the endoscopy results are normal. Barium swallow no abnormality noted. 4. Headache: Patient seen by neurology. 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 Computed tomography scan of the brain was negative. Neurology did add Fioricet which has helped with headaches. CRP elevated. CTA of the head was suboptimal no aneurysm noted. 5. Generalized anxiety disorder continue with the Xanax 6. Acute kidney injury secondary to diuretics. Creatinine 1.42. 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 We'll confirm with ENT service if antibiotics are needed DVT prophylaxis Eliquis in GI prophylaxis Protonix Possible discharge tomorrow if kidney functions are improving and is cleared by all consulting physicians. I performed an examination of the patient and discussed their management with the physician Cutter Hot Knife. I have reviewed the Physician Cutter Hot Knife's notes and agree with the documented findings and plan of care
--- NOTE | 2018-07-29 14:00 | P.PN ---
Subjective Progress Note Date: 07/29/18 Patient states his headaches have resolved with Fioricet. He is taking Fioricet almost twice a day. Objective - Vital Signs Vital signs: Vital Signs Temp 97.4 F L 07/29/18 12:00 Pulse 85 07/29/18 12:00 Resp 20 07/29/18 12:00 BP 120/78 07/29/18 12:00 Pulse Ox 95 07/29/18 12:00 Intake & Output 07/28/18 07/29/18 07/29/18 18:59 06:59 18:59 Intake Total 1010 280 180 Output Total 400 600 175 Balance 610 -320 5 Weight 142 kg Intake: IV 30 Invasive Line 1 30 Oral 980 280 180 Output: Urine 400 600 175 Other: Voiding Method Toilet Toilet Toilet Urinal Urinal Urinal # Voids 1 - Exam Nonfocal. Mental status speech and language functions are normal cranial nerves are normal strength normal. - Labs CBC & Chem 7: 07/29/18 06:57 07/29/18 06:57 Labs: Abnormal Lab Results - Last 24 Hours (Table) 07/29/18 07/29/18 Range/Units 06:57 06:57 RBC 4.09 L (4.30-5.90) m/uL Plt Count 93 L (150-450) k/uL BUN 48 H (9-20) mg/dL Creatinine 1.42 H (0.66-1.25) mg/dL Glucose 102 H (74-99) mg/dL Total Bilirubin 1.7 H (0.2-1.3) mg/dL Total Protein 5.8 L (6.3-8.2) g/dL Microbiology - Last 24 Hours (Table) 07/26/18 03:52 Blood Culture - Preliminary Blood No Growth after 72 hours Assessment and Plan Assessment: * Worst headache of life, unclear etiology. Rule out thunderclap headache. Patient's recent carotid Doppler, CT of the neck did not show any obvious mass. No significant paranasal sinus disease noted on CT head. Current examination is nonfocal. Patient's previous CT of the neck showed no evidence of TMJ abnormality. * Atrial fibrillation, on anticoagulation. * Hypertension * Hyperlipidemia Plan: * ESR is normal 3, CRP elevated 166/<10. Do not believe it is temporal arteritis. Symptoms do not appear typical trigeminal neuralgia either. * CTA of head and neck negative for cerebral aneurysm, or vascular stenosis or occlusion. 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 However patient is on anticoagulation, therefore poses hemorrhagic risks. * Patient's headache much improved with Fioricet. Discussed with patient's in detail. Consider Medrol Dosepak. If the headache persist, then may consider low-dose Elavil 10-25 mg nightly. * May follow up with a neurologist as outpatient. * Neurologically clear for discharge.
[2018-07-29] MEDS: SODIUM CHLORIDE 0.9% 1,000 ML IV SCH (15:31)
[2018-07-29] MEDS: TEMAZEPAM 30 MG CAP PO SCH (20:35)
[2018-07-29] MEDS ORDERED: METOPROLOL TARTRATE 25 MG TAB PO STA (22:25)
[2018-07-30] MEDS: PANTOPRAZOLE 40 MG TABLET PO SCH ×2 (06:45→16:48)
[2018-07-30 07:40] LABS: Albumin 3.9 g/dL (3.5-5.0); Basophils % (A) 0 %; Calcium 9.3 mg/dL (8.4-10.2); Eosinophils # (A) 0.2 k/uL (0-0.7); Eosinophils % (A) 3 %; HCT 45.4 % (39.0-53.0); HGB 14.1 gm/dL (13.0-17.5); Hypochromasia Slight; Lymphocytes # (A) 1.2 k/uL (1.0-4.8); Lymphocytes % (A) 18 %; MCH 31.3 pg (25.0-35.0); MCHC 31.1 g/dL (31.0-37.0); MCV 100.5 fL (80.0-100.0); Macrocytosis Slight; Mean Platelet Volume 9.1; Monocytes # (A) 0.6 k/uL (0-1.0); Monocytes % (A) 8 %; Neutrophils # (A) 4.7 k/uL (1.3-7.7); Neutrophils % (A) 69 %; RBC 4.52 m/uL (4.30-5.90); RDW 14.1 % (11.5-15.5); Total Bilirubin 1.3 mg/dL (0.2-1.3); Total Protein 6.3 g/dL (6.3-8.2); WBC 6.8 k/uL (3.8-10.6)
[2018-07-30 07:44] LABS: Platelet Count 155 k/uL (150-450)
[2018-07-30] MEDS: METOPROLOL TARTRATE 50 MG TAB PO SCH ×2 (08:07→20:24)
[2018-07-30] MEDS: BUTALB/APAP/CAFF 50-325-40MG TAB PO PRN ×2 (08:07→20:24)
[2018-07-30] MEDS: CHOLECALCIFEROL 1,000 UNIT TAB PO SCH (08:07)
[2018-07-30] MEDS: APIXABAN 5 MG TAB PO SCH ×2 (08:07→20:24)
[2018-07-30] MEDS: DOXYCYCLINE 100 MG CAP PO SCH ×2 (08:08→21:37)
[2018-07-30] MEDS: SERTRALINE 100 MG TAB PO SCH (08:08)
[2018-07-30] MEDS: LISINOPRIL 5 MG TAB PO SCH (08:08)
[2018-07-30] MEDS: ATORVASTATIN 10 MG TAB PO SCH (08:08)
[2018-07-30] MEDS: ALFUZOSIN HCL 10 MG PO SCH (08:13)
[2018-07-30] MEDS: SODIUM CHLORIDE 0.9% 1,000 ML IV SCH ×2 (09:56→16:47)
--- NOTE | 2018-07-30 14:16 | P.PN ---
Subjective Progress Note Date: 07/30/18 Nick Vora, is a 77-year-old male who presented to [facility] emergency room with multiple vague symptoms, history was difficult to obtain from patient due to multiple symptoms and complaints. Patient states that he was laying down after he ate when he felt that his throat was closing down he was having difficulty swallowing and breathing, subsequently he started having some epigastric pain, some chest pain, and significant shortness of breath, patient states that he also started having the worst headache of his life and he decided to come to emergency room. Patient was evaluated in the emergency room by Dr. Mcnair, he underwent a chest x-ray that revealed evidence of cardiomegaly and findings suggestive of pulmonary vascular congestion and pulmonary edema, he also underwent computed tomography scan of the brain without contrast that revealed no evidence of intracranial bleeding, EKG was done and revealed evidence of atrial fibrillation heart rate [address] or T-wave changes suggest acute ischemia, CBC and CMP were within normal limits except for slightly elevated BUN suggestive of mild dehydration BNP was elevated at 3820 urine analysis was not suggestive of any infectious process. Patient was admitted to telemetry floor he was started on IV Lasix, cardiology consultation was requested. Patient was recently admitted to [facility] and was discharged about 1 month ago at that time he had evidence of acute systolic congestive heart failure exacerbation, echocardiogram revealed evidence of ejection fraction of 45-50%. Patient also has known history of chronic atrial fibrillation maintained on Eliquis. On 07/27/2018 patient was seen and examined on the medical floor he is alert and oriented 3 in no apparent distress there is no fever or chills no headache at this time he was complaining of severe headache earlier that improved with IV Dilaudid loaded and oral Xanax cause of severe episodic headache is not entirely clear Will consult neurology for evaluation or dizziness no chest pain no shortness of breath no cough no nausea or vomiting no abdominal pain no diarrhea and no urinary symptoms 07/28/2018 patient reports improvement in his shortness of breath and headache. Creatinine has gone up to 1.43. Discussed with cardiology nurse practitioner. She is ordered a chest x-ray for today and will be discontinuing the IV Lasix and restarted oral Lasix. 2-D echo is pending. But showing a consult is pending. Patient reports improvement in his swallowing now. However it really does depend on what he eats. GI services recommending Protonix or a PPI daily. There is no plan for endoscopy. Patient denies any chest pain or shortness of breath, nausea or vomiting, Bonny changes or urinary symptoms. CRP was elev ated at 166.6. Patient is complaining of anxiety. Xanax was increased to be more frequent during this admission and he is on Zoloft. 07/29/2018 patient is lying in bed comfortably. Denies any shortness of breath or chest pain. Headache has improved with the Fioricet. He is still requiring the Fioricet. Creatinine has gone from 1.43-1.42. Patient will be placed on normal saline at 50 mL an hour due to the elevated creatinine. Lasix is currently on hold. Chest x-ray shows improving CHF. Patient underwent flexible laryngoscopy yesterday with Dr. Alcantara results are normal. CT had a of the head completed showing a suboptimal CTA [place] due to poor bolus without obvious aneurysm. No significant stenosis in the common internal carotid arteries. He also had a barium swallow which was normal. Patient reports improvement of his swallowing today. Patient reports regular bowel movements. Denies any nausea vomiting or any difficulty urinating. On 07/30/2018 patient is lying in bed comfortably. denies any shortness breath or chest pain. Headaches have improved. Creatinine is improving. Lasix remains on hold. Awaiting cardiology input. Patient has been cleared for discharge from neurology services. Patient denies chest pain or shortness breath. Patient denies nausea vomiting or diarrhea. Patient denies any urinary burning or frequency Objective - Vital Signs Vital signs: Vital Signs Temp 97.4 F L 07/30/18 12:00 Pulse 90 07/30/18 12:00 Resp 18 07/30/18 12:00 BP 115/83 07/30/18 12:00 Pulse Ox 95 07/30/18 12:00 Intake & Output 07/29/18 07/30/18 07/30/18 18:59 06:59 18:59 Intake Total 790 140 482 Output Total 425 325 Balance 365 -185 482 Weight 142.3 kg Intake: IV 20 Invasive Line 1 20 Intake, IV Titration 200 Amount Sodium Chloride 0.9% 1, 200 000 ml @ 50 mls/hr IV . Q20H [facility] Rx#:[id number] Oral 590 120 482 Output: Urine 425 325 Other: Voiding Method Toilet Toilet Urinal Urinal # Voids 1 1 2 - Exam Head normocephalic Neck supple Lungs clear to auscultation bilaterally no wheezing or crackles Heart regular rate and rhythm S1-S2, no rub or gallop Abdomen is soft nontender nondistended positive bowel sounds no hepatosplenomegaly Extremities no edema Neuro alert and orientated to 3 - Labs CBC & Chem 7: 07/30/18 06:46 07/30/18 06:46 Labs: Abnormal Lab Results - Last 24 Hours (Table) 07/30/18 07/30/18 Range/Units 06:46 06:46 MCV 100.5 H (80.0-100.0) fL BUN 41 H (9-20) mg/dL Creatinine 1.26 H (0.66-1.25) mg/dL Glucose 101 H (74-99) mg/dL Microbiology - Last 24 Hours (Table) 07/26/18 03:52 Blood Culture - Preliminary Blood No Growth after 96 hours Assessment and Plan Assessment: #1 acute systolic congestive heart failure exacerbation patient treated with IV Lasix. Lasix is currently on hold due to the rising creatinine. Creatinine also added lisinopril during this admission. Patient had echo May 2018. With an EF of 45-50%. Chest x-ray showed improvement. Awaiting cardiology input for restarting the Lasix #2 underlying history of chronic persistent atrial fibrillation maintained on Eliquis for stroke prevention and continue metoprolol for rate control #3 difficulty swallowing and throat closing. Patient seen by GI service no plan for EGD during this admission. Last EGD was December 2017 and had showed gastritis. GI services recommending Protonix or omeprazole daily at time of discharge. Also evaluated by ENT the endoscopy results are normal. Barium swallow no abnormality noted. 4. Headache: Patient seen by neurology. 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 Computed tomography scan of the brain was negative. Neurology did add Fioricet which has helped with headaches. CRP elevated. CTA of the head was suboptimal no aneurysm noted. Patient has been cleared for discharge 5. Generalized anxiety disorder continue with the Xanax 6. Acute kidney injury secondary to diuretics. Creatinine 1.42. Since patient received IV contrast will start him on normal saline at 50 mL an hour and monitor kidney functions closely. 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 We'll confirm with ENT service if antibiotics are needed DVT prophylaxis Eliquis in GI prophylaxis Protonix Possible discharge tomorrow if kidney functions are improving and is cleared by all consulting physicians. I performed an examination of the patient and discussed their management with the Nurse Practitioner. I have reviewed the Nurse Practitioner's notes and agree with the documented findings and plan of care
--- NOTE | 2018-07-30 15:25 | P.PN ---
Subjective Progress Note Date: 07/30/18 Patient states his headaches have resolved with Fioricet. He took Fioricet last night. Does not need one today this morning. Objective - Vital Signs Vital signs: Vital Signs Temp 97.4 F L 07/30/18 12:00 Pulse 90 07/30/18 12:00 Resp 18 07/30/18 12:00 BP 115/83 07/30/18 12:00 Pulse Ox 95 07/30/18 12:00 Intake & Output 07/29/18 07/30/18 07/30/18 18:59 06:59 18:59 Intake Total 790 140 482 Output Total 425 325 Balance 365 -185 482 Weight 142.3 kg Intake: IV 20 Invasive Line 1 20 Intake, IV Titration 200 Amount Sodium Chloride 0.9% 1, 200 000 ml @ 50 mls/hr IV . Q20H [facility] Rx#:[id number] Oral 590 120 482 Output: Urine 425 325 Other: Voiding Method Toilet Toilet Urinal Urinal # Voids 1 1 2 - Exam Nonfocal. Mental status speech and language functions are normal cranial nerves are normal strength normal. - Labs CBC & Chem 7: 07/30/18 06:46 07/30/18 06:46 Labs: Abnormal Lab Results - Last 24 Hours (Table) 07/30/18 07/30/18 Range/Units 06:46 06:46 MCV 100.5 H (80.0-100.0) fL BUN 41 H (9-20) mg/dL Creatinine 1.26 H (0.66-1.25) mg/dL Glucose 101 H (74-99) mg/dL Microbiology - Last 24 Hours (Table) 07/26/18 03:52 Blood Culture - Preliminary Blood No Growth after 96 hours Assessment and Plan Assessment: * Worst headache of life, unclear etiology. Rule out thunderclap headache. Patient's recent carotid Doppler, CT of the neck did not show any obvious mass. No significant paranasal sinus disease noted on CT head. Current examination is nonfocal. Patient's previous CT of the neck showed no evidence of TMJ abnormality. * Atrial fibrillation, on anticoagulation. * Acute kidney injury, improving. * Hypertension * Hyperlipidemia Plan: * ESR is normal 3, CRP elevated 166/<10. Do not believe it is temporal arteritis. Symptoms do not appear typical trigeminal neuralgia either. * CTA of head and neck negative for cerebral aneurysm, or vascular stenosis or occlusion. * Patient's renal functions had transiently got worse, but now seems to be improving. BUN and creatinine were 48/1.42 yesterday and 41/1.26 this morning. Continue hydration. * Patient's headache much improved with Fioricet. Consider Medrol Dosepak. If the headache persist, then may consider low-dose Elavil 10-25 mg nightly. * May follow up with a neurologist as outpatient. * Neurologically clear for discharge.
--- NOTE | 2018-07-30 15:47 | P.PN ---
Subjective Progress Note Date: 07/29/18 This is a 77-year-old gentleman with history of of hypertension, atrial fibrillation, mild cardiomyopathy and also GERD disorder who was admitted to the hospital with multiple complaints. On of the complaint seems to be severe headache. Second complaint seemed to be difficulty swallowing as if throat is closing at times. He is also complaining of increasing shortness of breath mostly when he is has headache. He chest x-ray in the emergency room showed evidence of congestive heart failure. His proBNP is elevated. He was diagnosed to have atrial fibrillation recently and he was advised to be anticoagulated and be constricted for cardioversion. Patient has been on a liquid is 5 mg by mouth twice a day along with metoprolol. Since admission patient was initiated on Lasix 40 mg IV every 8 hours. He doesn't have any significant edema. Lungs show few crackles at the right base and there appears to mild JVD. I'm going to start him on lisinopril 5 mg daily. Continue IV Lasix for 24 hours and switched to by mouth Lasix. Continue treatment for his headache. Patient may be considered for cardioversion. Further recommendations depend upon the clinical course. If he didn't have any workup for ischemic heart disease, patient may be candidate for stress test later on. 07/28/2018 Patient was seen and examined this morning, overall feeling better. He did have an echocardiogram with Doppler study performed in May of this year which revealed an ejection fraction of 45-50%. Blood pressure today 110/80 with a heart rate in the 80s.continues to be on IV Lasix.White blood cell count 7.4, hemoglobin 12.9, platelet count 86. Sodium 138, potassium 3.6, BUN 38 and creatinine 1.4. We will discontinue the IV Lasix today and change room attendant to oral diuretics. From tomorrow we will resume the Lasix 20 mg daily PO. 07/29/2018 Patient was seen and examined today, resting comfortably in bed. Breathing is overall stable he denies any chest pain. Still complaining of intermittent hea dache. Creatinine 1.43 today. He has been initiated on some IV saline and Lasix is currently on hold. The repeat chest x-ray did show improving congestive heart failure. Patient underwent a flexible laryngoscopy yesterday with Dr. Guan which results were normal. CT of the head completed showed suboptimal CTA [place] due to poor bolus without obvious aneurysm. No significant stenosis in the common internal carotid arteries. He also had a barium swallow which was normal. He does report today that his swallowing seems to be improved. Blood pressure 122/70 with a heart rate of 80, 93% on room air. Objective - Vital Signs Vital signs: Vital Signs Temp 97.4 F L 07/30/18 12:00 Pulse 90 07/30/18 12:00 Resp 18 07/30/18 12:00 BP 115/83 07/30/18 12:00 Pulse Ox 95 07/30/18 12:00 Intake & Output 07/29/18 07/30/18 07/30/18 18:59 06:59 18:59 Intake Total 790 140 482 Output Total 425 325 Balance 365 -185 482 Weight 142.3 kg Intake: IV 20 Invasive Line 1 20 Intake, IV Titration 200 Amount Sodium Chloride 0.9% 1, 200 000 ml @ 50 mls/hr IV . Q20H [facility] Rx#:[id number] Oral 590 120 482 Output: Urine 425 325 Other: Voiding Method Toilet Toilet Urinal Urinal # Voids 1 1 2 - Exam ENERAL EXAM: Patient is alert and oriented and doesn't appear to be in any acute distress HEENT: Normocephalic. Normal reaction of pupils, equal size, normal range of ext raocular motion. No erythema or exudates in the throat. NECK: No masses, no nuchal rigidity. Mild JVD CHEST: No chest wall deformity. LUNGS: Equal air entry with no crackles or wheeze. HEART: S1 and S2 normal with no audible mumurs or gallops. Irregular rhythm ABDOMEN: No hepatosplenomegaly, normal bowel sounds, no guarding or rigidity. SKIN: No rashes CENTRAL NERVOUS SYSTEM: No focal deficits. EXTREMITIES: No cyanosis, clubbing or edema. - Labs CBC & Chem 7: 07/30/18 06:46 07/30/18 06:46 Labs: Abnormal Lab Results - Last 24 Hours (Table) 07/30/18 07/30/18 Range/Units 06:46 06:46 MCV 100.5 H (80.0-100.0) fL BUN 41 H (9-20) mg/dL Creatinine 1.26 H (0.66-1.25) mg/dL Glucose 101 H (74-99) mg/dL Microbiology - Last 24 Hours (Table) 07/26/18 03:52 Blood Culture - Preliminary Blood No Growth after 96 hours Assessment and Plan Plan: assessment and plan #1 systolic congestive heart failure acute on chronic #2 nonischemic cardio myopathy #3 chronic persistent atrial fibrillation #4 hypertension #5 hyperlipidemia Plan From cardiology's perspective, we'll follow this patient along with you now on an as-needed basis only, please don't hesitate to call with any questions. We would recommend on discharge the patient go home with Lasix 40 mg daily by mouth. DNP note has been reviewed, I agree with a documented findings and plan of care. Patient was seen and examined.
[2018-07-30] MEDS: TEMAZEPAM 30 MG CAP PO SCH (20:24)
[2018-07-31] MEDS: ALPRAZolam 0.5 MG TAB PO PRN ×2 (03:25→09:28)
[2018-07-31] MEDS: BUTALB/APAP/CAFF 50-325-40MG TAB PO PRN ×2 (03:25→09:28)
[2018-07-31] MEDS: PANTOPRAZOLE 40 MG TABLET PO SCH (06:33)
[2018-07-31 06:56] LABS: Basophils % (A) 1 %; Eosinophils # (A) 0.2 k/uL (0-0.7); Eosinophils % (A) 3 %; HCT 41.3 % (39.0-53.0); HGB 12.5 gm/dL (13.0-17.5); Hypochromasia Slight; Lymphocytes # (A) 1.2 k/uL (1.0-4.8); Lymphocytes % (A) 18 %; MCH 30.8 pg (25.0-35.0); MCHC 30.3 g/dL (31.0-37.0); MCV 101.6 fL (80.0-100.0); Macrocytosis Slight; Monocytes # (A) 0.5 k/uL (0-1.0); Monocytes % (A) 8 %; Neutrophils # (A) 4.7 k/uL (1.3-7.7); Neutrophils % (A) 69 %; Platelet Count 144 k/uL (150-450); RBC 4.06 m/uL (4.30-5.90); WBC 6.7 k/uL (3.8-10.6)
[2018-07-31 07:14] LABS: Albumin 3.5 g/dL (3.5-5.0); Total Protein 5.6 g/dL (6.3-8.2)
[2018-07-31] MEDS: ALFUZOSIN HCL 10 MG PO SCH (08:24)
[2018-07-31] MEDS: SERTRALINE 100 MG TAB PO SCH (08:24)
[2018-07-31] MEDS: APIXABAN 5 MG TAB PO SCH (08:24)
[2018-07-31] MEDS: CHOLECALCIFEROL 1,000 UNIT TAB PO SCH (08:24)
[2018-07-31] MEDS: SODIUM CHLORIDE 0.9% 1,000 ML IV SCH (08:24)
[2018-07-31] MEDS: DOXYCYCLINE 100 MG CAP PO SCH (08:24)
[2018-07-31] MEDS: METOPROLOL TARTRATE 50 MG TAB PO SCH (08:25)
[2018-07-31] MEDS: LISINOPRIL 5 MG TAB PO SCH (08:25)
[2018-07-31] MEDS: ATORVASTATIN 10 MG TAB PO SCH (08:25)
[2018-07-31 10:18] VITALS: RESP 16
[2018-07-31 11:45] VITALS: BP 108/73; PULSE 87; TEMP 98.6
[2018-07-31 11:46] VITALS: BMI 39.6
--- NOTE | 2018-07-31 12:35 | P.PN ---
Subjective Progress Note Date: 07/31/18 Patient states his headaches have resolved with Fioricet. No new focal symptoms. Objective - Vital Signs Vital signs: Vital Signs Temp 98.6 F 07/31/18 11:42 Pulse 87 07/31/18 11:45 Resp 16 07/31/18 11:45 BP 108/73 07/31/18 11:42 Pulse Ox 87 L 07/31/18 11:42 Intake & Output 07/30/18 07/31/18 07/31/18 18:59 06:59 18:59 Intake Total 482 300 360 Balance 482 300 360 Weight 143.9 kg 143.9 kg Intake: Oral 482 300 360 Other: Voiding Method Toilet Toilet Urinal Urinal # Voids 2 1 - Exam Nonfocal. Mental status speech and language functions are normal cranial nerves are normal strength normal. - Labs CBC & Chem 7: 07/31/18 05:59 07/31/18 05:59 Labs: Abnormal Lab Results - Last 24 Hours (Table) 07/31/18 07/31/18 Range/Units 05:59 05:59 RBC 4.06 L (4.30-5.90) m/uL Hgb 12.5 L (13.0-17.5) gm/dL MCV 101.6 H (80.0-100.0) fL MCHC 30.3 L (31.0-37.0) g/dL Plt Count 144 L (150-450) k/uL BUN 39 H (9-20) mg/dL Creatinine 1.27 H (0.66-1.25) mg/dL Glucose 101 H (74-99) mg/dL Total Protein 5.6 L (6.3-8.2) g/dL Microbiology - Last 24 Hours (Table) 07/26/18 03:52 Blood Culture - Preliminary Blood No Growth after 120 hours Assessment and Plan Assessment: * Worst headache of life, unclear etiology. CTA of head and neck negative for any cerebral aneurysm. Cephalgia has resolved. Patient's recent carotid Doppler, CT of the neck did not show any obvious mass. No significant paranasal sinus disease noted on CT head. Current examination is nonfocal. * Atrial fibrillation, on anticoagulation. * Acute kidney injury, improving. * Hypertension * Hyperlipidemia Plan: * ESR is normal 3, CRP elevated 166/<10. Do not believe it is temporal arteritis. Symptoms do not appear typical trigeminal neuralgia either. Patient's headache has resolved. * CTA of head and neck negative for cerebral aneurysm, or vascular stenosis or occlusion. * Patient's renal functions had transiently got worse, but now seems to be improving. BUN and creatinine were 41/1.26 yesterday, today is 39/1.27. Continue hydration. * Patient suggested not to take any anti-inflammatory medications, Motrin, Advil, Aleve. Follow-up renal functions with his primary doctor in one to 2 weeks. * Patient's headache much improved with Fioricet. If the headache persist, then may consider low-dose Elavil 10-25 mg nightly. * May follow up with a neurologist as outpatient.
--- NOTE | 2018-07-31 14:10 | P.DS ---
Providers Date of admission: 07/26/18 07:16 Expected date of discharge: 07/31/18 Attending physician: Juan C Beltran Consults: 07/26/18 14:33 Consult Physician Routine Consulting Provider: Brigitte Alvares Consult Reason/Comments: CHF Do you want consulting provider notified?: Yes 07/27/18 12:06 Consult Physician Routine Consulting Provider: Roberto Decker Consult Reason/Comments: severe headache Do you want consulting provider notified?: Yes 07/27/18 16:30 Consult Physician Routine Consulting Provider: Tayo Morrow Consult Reason/Comments: sore throat, closing off throat, diff is swallowing intermittently Do you want consulting provider notified?: Yes 07/27/18 16:31 Consult Physician Routine Consulting Provider: Joana August Consult Reason/Comments: sob at rest, pt know to you Do you want consulting provider notified?: Yes Primary care physician: [facility] Course: 1. acute systolic congestive heart failure exacerbation patient treated with IV Lasix. Creatinine also added lisinopril during this admission. Patient had echo May 2018. With an EF of 45-50%. Chest x-ray showed improvement. Cardiology recommending Lasix 40 mg by mouth daily for discharge #2 underlying history of chronic persistent atrial fibrillation maintained on Eliquis for stroke prevention and continue metoprolol for rate control #3 difficulty swallowing and throat closing. Patient seen by GI service no plan for EGD during this admission. Last EGD was December 2017 and had showed gastritis. GI services recommending Protonix or omeprazole daily at time of discharge. Also evaluated by ENT the endoscopy results are normal. Barium swallow no abnormality noted. Continue acid reflux precautions avoid eating 2-3 hours before lying down. 4. Headache: Patient seen by neurology. Workup essentially negative. Computed tomography scan of the brain was negative. Neurology did add Fioricet which has helped with headaches. CRP elevated. CTA of the head was suboptimal no aneurysm noted. Patient has been cleared for discharge. Patient will be discharged with Fioricet and follow-up with neurology outpatient. 5. Generalized anxiety disorder continue with the Xanax 6. Acute kidney injury secondary to diuretics. Creatinine 1.42. Patient was given IV fluids. Creatinine has shown improvement down to 1.27. Recommend checking BMP in 3 days for close follow-up on kidney functions. 7. Chronic mastoiditis: Continue doxycycline for 5 more days Hospital course Nick Vora, is a 77-year-old male who presented to [facility] emergency room with multiple vague symptoms, history was difficult to obtain from patient due to multiple symptoms and complaints. Patient states that he was laying down after he ate when he felt that his throat was closing down he was having difficulty swallowing and breathing, subsequently he started having some epigastric pain, some chest pain, and significant shortness of breath, patient states that he also started having the worst headache of his life and he decided to come to emergency room. Patient was evaluated in the emergency room by Dr. Mcnair, he underwent a chest x-ray that revealed evidence of cardiomegaly and findings suggestive of pulmonary vascular congestion and pulmonary edema, he also underwent computed tomography scan of the brain without contrast that revealed no evidence of intracranial bleeding, EKG was done and revealed evidence of atrial fibrillation heart rate [address] or T-wave changes suggest acute ischemia, CBC and CMP were within normal limits except for slightly elevated BUN suggestive of mild dehydration BNP was elevated at 3820 urine analysis was not suggestive of any infectious process. Patient was admitted to telemetry floor he was started on IV Lasix, cardiology consultation was requested. Patient was recently admitted to [facility] and was discharged about 1 month ago at that time he had evidence of acute systolic congestive heart failure exacerbation, echocardiogram revealed evidence of ejection fraction of 45-50%. Patient also has known history of chronic atrial fibrillation maintained on Eliquis. On 07/27/2018 patient was seen and examined on the medical floor he is alert and oriented 3 in no apparent distress there is no fever or chills no headache at this time he was complaining of severe headache earlier that improved with IV Dilaudid loaded and oral Xanax cause of severe episodic headache is not entirely clear Will consult neurology for evaluation or dizziness no chest pain no short ness of breath no cough no nausea or vomiting no abdominal pain no diarrhea and no urinary symptoms 07/28/2018 patient reports improvement in his shortness of breath and headache. Creatinine has gone up to 1.43. Discussed with cardiology nurse practitioner. She is ordered a chest x-ray for today and will be discontinuing the IV Lasix and restarted oral Lasix. 2-D echo is pending. But showing a consult is pending. Patient reports improvement in his swallowing now. However it really does depend on what he eats. GI services recommending Protonix or a PPI daily. There is no plan for endoscopy. Patient denies any chest pain or shortness of breath, nausea or vomiting, Bonny changes or urinary symptoms. CRP was elevated at 166.6. Patient is complaining of anxiety. Xanax was increased to be more frequent during this admission and he is on Zoloft. 07/29/2018 patient is lying in bed comfortably. Denies any shortness of breath or chest pain. Headache has improved with the Fioricet. He is still requiring the Fioricet. Creatinine has gone from 1.43-1.42. Patient will be placed on normal saline at 50 mL an hour due to the elevated creatinine. Lasix is currently on hold. Chest x-ray shows improving CHF. Patient underwent flexible laryngoscopy yesterday with Dr. Alcantara results are normal. CT had a of the head completed showing a suboptimal CTA [place] due to poor bolus without obvious aneurysm. No significant stenosis in the common internal carotid arteries. He also had a barium swallow which was normal. Patient reports improvement of his swallowing today. Patient reports regular bowel movements. Denies any nausea vomiting or any difficulty urinating. On 07/30/2018 patient is lying in bed comfortably. denies any shortness breath or chest pain. Headaches have improved. Creatinine is improving. Lasix remains on hold. Awaiting cardiology input. Patient has been cleared for discharge from neurology services. Patient denies chest pain or shortness breath. Patient denies nausea vomiting or diarrhea. Patient denies any urinary burning or frequency 07/31/2018 patient's symptoms have improved. He has been cleared by consulting physician for discharge. Headaches have improved with the Fioricet. His neuro workup was essentially unremarkable. He'll follow-up with neurology in the outpatient setting. We'll continue with the Fioricet as needed for headache. Discussed with cardiology the recommending Lasix 40 mg daily at the time of discharge. Lasix will be started tomorrow. Creatinine has shown improvement with IV fluids. Creatinine is now at 1.27. Lasix can be resumed tomorrow. Recommend checking a BMP level in 3 days to follow-up on kidney function. Will have patient follow up with Dr. Beltran on Saturday I performed an examination of the patient and discussed their management with the physician Color Tester. I have reviewed the Physician Color Tester's notes and agree with the documented findings and plan of care Patient Condition at Discharge: Stable Plan - Discharge Summary Discharge Rx Participant: No New Discharge Prescriptions: New Butalb/APAP/Caff 50-325-40Mg [Fioricet 50-325-40] 1 each PO Q4HR PRN #30 tab PRN Reason: Headache Pantoprazole [Protonix] 40 mg PO DAILY #30 tablet.dr Doxycycline [Vibramycin] 100 mg PO BID #10 cap Lisinopril [Zestril] 5 mg PO DAILY #30 tab Continue Temazepam [Restoril] 30 mg PO HS Simvastatin [Zocor] 10 mg PO DAILY Sertraline HCl [Zoloft] 200 mg PO DAILY Alfuzosin HCl [Uroxatral ER] 10 mg PO DAILY Mirabegron [Myrbetriq] 25 mg PO DAILY Cholecalciferol [Vitamin D3 (25 Mcg = 1000 Iu)] 1,000 unit PO DAILY ALPRAZolam [Xanax] 0.5 mg PO DAILY PRN PRN Reason: Anxiety Apixaban [Eliquis] 5 mg PO BID #60 tab Metoprolol Tartrate [Lopressor] 50 mg PO BID #60 tab Acetaminophen [Tylenol Extra Strength] 500 - 1,000 mg PO HS Changed Furosemide [Lasix] 40 mg PO DAILY 30 Days #30 tab Discharge Medication List Sertraline HCl [Zoloft] 200 mg PO DAILY 10/30/13 [History] Simvastatin [Zocor] 10 mg PO DAILY 10/30/13 [History] Temazepam [Restoril] 30 mg PO HS 10/30/13 [History] Alfuzosin HCl [Uroxatral ER] 10 mg PO DAILY 01/14/18 [History] ALPRAZolam [Xanax] 0.5 mg PO DAILY PRN 06/10/18 [History] Cholecalciferol [Vitamin D3 (25 Mcg = 1000 Iu)] 1,000 unit PO DAILY 06/10/18 [History] Mirabegron [Myrbetriq] 25 mg PO DAILY 06/10/18 [History] Apixaban [Eliquis] 5 mg PO BID #60 tab 06/12/18 [Rx] Metoprolol Tartrate [Lopressor] 50 mg PO BID #60 tab 06/12/18 [Rx] Acetaminophen [Tylenol Extra Strength] 500 - 1,000 mg PO HS 07/01/18 [History] Furosemide [Lasix] 40 mg PO DAILY 30 Days #30 tab 07/30/18 [Rx] Butalb/APAP/Caff 50-325-40Mg [Fioricet 50-325-40] 1 each PO Q4HR PRN #30 tab 07/31/18 [Rx] Doxycycline [Vibramycin] 100 mg PO BID #10 cap 07/31/18 [Rx] Lisinopril [Zestril] 5 mg PO DAILY #30 tab 07/31/18 [Rx] Pantoprazole [Protonix] 40 mg PO DAILY #30 tablet. 07/31/18 [Rx] Follow up Appointment(s)/Referral(s): Joana August MD [STAFF PHYSICIAN] - 08/22/18 10:15 am (Saturday) Brigitte Alvares MD [STAFF PHYSICIAN] - 2 Weeks (Spoke to completion manager. Office will call with appointment time) Juan C Beltran MD [Primary Care Provider] - 08/04/18 Roberto Decker MD [STAFF PHYSICIAN] - 1 Week Tayo Morrow DO [Doctor of Osteopathic Medicine] - 1 Week Ambulatory/Diagnostic Orders: Basic Metabolic Panel [LAB.AMB] Time Frame: 3 Days, Location: None Selected Patient Instructions/Handouts: Heart Failure (DC), A-fib (Atrial Fibrillation) (DC), Mastoiditis (DC) Activity/Diet/Wound Care/Special Instructions: Diet: cardiac Activity: as tolerated Discharge Disposition: HOME SELF-CARE
== END 2018-07-31 15:54 | disposition home or self-care (01) | DRG 292 ==
LOC: EC 02:50 → 3SCARD 07:16
PROVIDERS: ADMIT Internal Medicine; ATTEND Internal Medicine
PROC: 0CJS8ZZ Inspection of Larynx, Via Natural or Artificial Opening Endoscopic (ICD-10-PCS; principal; 2018-07-28)
DX: I11.0 Hypertensive heart disease with heart failure (principal); I48.1 Persistent atrial fibrillation; N17.9 Acute kidney failure, unspecified; I50.43 Acute on chronic combined systolic (congestive) and diastolic (congestive) heart failure; E66.01 Morbid (severe) obesity due to excess calories; Z68.39 Body mass index [BMI] 39.0-39.9, adult; E78.5 Hyperlipidemia, unspecified; F32.9 Major depressive disorder, single episode, unspecified; F41.1 Generalized anxiety disorder; G47.33 Obstructive sleep apnea (adult) (pediatric); H66.90 Otitis media, unspecified, unspecified ear; H70.10 Chronic mastoiditis, unspecified ear; H91.90 Unspecified hearing loss, unspecified ear; I42.9 Cardiomyopathy, unspecified; I48.2 Chronic atrial fibrillation; K21.9 Gastro-esophageal reflux disease without esophagitis; K29.70 Gastritis, unspecified, without bleeding; N40.0 Benign prostatic hyperplasia without lower urinary tract symptoms; R13.10 Dysphagia, unspecified; T50.2X5A Adverse effect of carbonic-anhydrase inhibitors, benzothiadiazides and other diuretics, initial encounter; Z79.01 Long term (current) use of anticoagulants; Z79.899 Other long term (current) drug therapy; Z82.49 Family history of ischemic heart disease and other diseases of the circulatory system; Z87.442 Personal history of urinary calculi; Z87.891 Personal history of nicotine dependence; Z96.653 Presence of artificial knee joint, bilateral; Z98.42 Cataract extraction status, left eye; Z98.41 Cataract extraction status, right eye; Z88.5 Allergy status to narcotic agent; Z88.0 Allergy status to penicillin; Z88.8 Allergy status to other drugs, medicaments and biological substances; Z82.69 Family history of other diseases of the musculoskeletal system and connective tissue; Z80.9 Family history of malignant neoplasm, unspecified
CPT/HCPCS: 36415; 70450; 70496; 70498; 71046; 74220; 80053; 81001; 83605; 83880; 84484; 85025; 85610; 85652; 85730; 86140; 87040; 87086; 93005; 94760; 96374; 96375; 99285

== ENCOUNTER 2018-08-08 16:27 | Observation (INO) | payer MEDICARE ==
[2018-08-08 17:22] LABS: Basophils % (A) 0 %; Eosinophils # (A) 0.1 k/uL (0-0.7); Eosinophils % (A) 1 %; HCT 45.2 % (39.0-53.0); HGB 14.2 gm/dL (13.0-17.5); Hypochromasia Slight; Lymphocytes # (A) 0.7 k/uL (1.0-4.8); Lymphocytes % (A) 8 %; MCHC 31.5 g/dL (31.0-37.0); MCV 98.4 fL (80.0-100.0); Mean Platelet Volume 9.4; Monocytes # (A) 0.6 k/uL (0-1.0); Monocytes % (A) 6 %; Neutrophils # (A) 7.8 k/uL (1.3-7.7); Neutrophils % (A) 84 %; Platelet Count 196 k/uL (150-450); RBC 4.59 m/uL (4.30-5.90); RDW 13.7 % (11.5-15.5); WBC 9.3 k/uL (3.8-10.6)
--- NOTE | 2018-08-08 17:23 | ED ---
General Adult HPI - General Chief complaint: Weakness Stated complaint: SOB, weakness Time Seen by Provider: 08/08/18 16:30 Source: patient, family, RN notes reviewed Mode of arrival: wheelchair Limitations: no limitations - History of Present Illness Initial comments: This is a 77-year-old male who presents emergency Department with a past medical history significant for atrial fibrillation congestive heart failure and is now on eliquis. Patient states over the last couple of weeks she's feeling weaker and weaker to the point where he has no energy to do anything. Patient states he is somewhat short of breath particularly when he wants to do something. Patient denies any abdominal pain patient denies nausea vomiting diarrhea. Patient denies any chest pain or palpitations. Patient denies any near syncopal episode but does state he feels lightheaded on occasion. Patient denies headache patient denies numbness weakness. - Related Data Home Medications Medication Instructions Recorded Confirmed Sertraline HCl [Zoloft] 200 mg PO DAILY 10/30/13 08/08/18 Temazepam [Restoril] 30 mg PO HS 10/30/13 08/08/18 Alfuzosin HCl [Uroxatral ER] 10 mg PO DAILY 01/14/18 08/08/18 ALPRAZolam [Xanax] 0.5 mg PO DAILY PRN 06/10/18 08/08/18 Cholecalciferol [Vitamin D3 (25 1,000 unit PO DAILY 06/10/18 08/08/18 Mcg = 1000 Iu)] Mirabegron [Myrbetriq] 25 mg PO DAILY 06/10/18 08/08/18 Acetaminophen Tab [Tylenol] 1,000 mg PO HS 08/08/18 08/08/18 Clindamycin HCl [Cleocin] 150 mg PO TID 08/08/18 08/08/18 Simvastatin [Zocor] 20 mg PO DAILY 08/08/18 08/08/18 Vitamin E (Dl,Tocopheryl Acet) 400 unit PO DAILY 08/08/18 08/08/18 [Vitamin E] Previous Rx's Medication Instructions Recorded Apixaban [Eliquis] 5 mg PO BID #60 tab 06/12/18 Metoprolol Tartrate [Lopressor] 50 mg PO BID #60 tab 06/12/18 Furosemide [Lasix] 40 mg PO DAILY 30 Days #30 tab 07/30/18 Butalb/APAP/Caff 50-325-40Mg 1 each PO Q4HR PRN #30 tab 07/31/18 [Fioricet 50-325-40] Lisinopril [Zestril] 5 mg PO DAILY #30 tab 07/31/18 Pantoprazole [Protonix] 40 mg PO DAILY #30 tablet. 07/31/18 Allergies Allergy/AdvReac Type Severity Reaction Status Date / Time hydrocodone bitartrate Allergy Anaphylaxis Verified 08/08/18 17:15 [From Vicodin] Penicillins Allergy Anaphylaxis Verified 08/08/18 17:15 propoxyphene napsylate Allergy Anaphylaxis Verified 08/08/18 17:15 [From Darvocet-N 100] tamsulosin HCl [From Flomax] Allergy Anaphylaxis Verified 08/08/18 17:15 Review of Systems ROS Statement: Those systems with pertinent positive or pertinent negative responses have been documented in the HPI. ROS Other: All systems not noted in ROS Statement are negative. Past Medical History Past Medical History: Atrial Fibrillation, GERD/Reflux, Hearing Disorder / Deafness, Hyperlipidemia, Hypertension, Osteoarthritis (OA), Prostate Disorder Additional Past Medical History / Comment(s): Tinnitus, Hx kidney stones, BPH, LUNG SCARRING. C/O STOMACH UPSET, new dx afib History of Any Multi-Drug Resistant Organisms: None Reported Past Surgical History: Adenoidectomy, Ear Surgery, Heart Catheterization, Joint Replacement, Tonsillectomy Additional Past Surgical History / Comment(s): oral surgery, diana knee replacements, thyroid surgery, diana cataracts. EGD, COLONOSCOPY 12/23/17 Past Anesthesia/Blood Transfusion Reactions: No Reported Reaction Past Psychological History: Depression Smoking Status: Former smoker Past Alcohol Use History: Daily Past Drug Use History: None Reported - Past Family History Father Family Medical History: Cancer, Congestive Heart Failure (CHF), Hypertension, Myocardial Infarction ([place]) Additional Family Medical History / Comment(s): AT AGE 84-[place] Mother Family Medical History: No Reported History Additional Family Medical History / Comment(s): MOM AT GE 60 MUSCULAR DYSTOPY General Exam - General Exam Comments Initial Comments: GENERAL: Patient is well-developed and well-nourished. Patient is nontoxic and well- hydrated and is in mild distress. ENT: Neck is soft and supple. No significant lymphadenopathy is noted. Oropharynx is clear. Moist mucous membranes. Neck has full range of motion without eliciting any pain. EYES: The sclera were anicteric and conjunctiva were pink and moist. Extraocular movements were intact and pupils were equal round and reactive to light. Eyelids were unremarkable. PULMONARY: Unlabored respirations. Good breath sounds bilaterally. No audible rales rhonchi or wheezing was noted. CARDIOVASCULAR: There is a regular rate and rhythm without any murmurs gallops or rubs. ABDOMEN: Soft and nontender with normal bowel sounds. Rectal: Rectal exam was normal. SKIN: Skin is clear with no lesions or rashes and otherwise unremarkable. NEUROLOGIC: Patient is alert and oriented x3. Cranial nerves II through XII are grossly intact. Motor and sensory are also intact. Normal speech, volume and content. Symmetrical smile. MUSCULOSKELETAL: Normal extremities with adequate strength and full range of motion. No lower extremity swelling or edema. No calf tenderness. LYMPHATICS: No significant lymphadenopathy is noted PSYCHIATRIC: Normal psychiatric evaluation. Limitations: no limitations Course Vital Signs 08/08/18 16:29 Temperature 97.7 F Pulse Rate 81 Respiratory 24 Rate Blood Pressure 148/58 O2 Sat by Pulse 95 Oximetry Medical Decision Making - Medical Decision Making EKG shows atrial fibrillation with rapid ventricular response at 104 bpm QRS is under QT interval 302 QTC is 397 per patient's EKG shows no ST segment elevation or depression or T wave abnormalities are noted. Patient's chest x-ray showed pulmonary edema. Patient had a new pleural effusion on the left Patient was given Lasix and Nitropaste. I spoke with Dr. Huffman for Dr. Beltran he agreed to admit the patient I admitted the patient remaining orders - Lab Data Result diagrams: 08/08/18 17:00 08/08/18 17:00 Lab Results 08/08/18 08/08/18 08/08/18 Range/Units 17:00 17:00 17:00 WBC 9.3 (3.8-10.6) k/uL RBC 4.59 (4.30-5.90) m/uL Hgb 14.2 (13.0-17.5) gm/dL Hct 45.2 (39.0-53.0) % MCV 98.4 (80.0-100.0) fL MCH 31.0 (25.0-35.0) pg MCHC 31.5 (31.0-37.0) g/dL RDW 13.7 (11.5-15.5) % Plt Count 196 (150-450) k/uL Neutrophils % 84 % Lymphocytes % 8 % Monocytes % 6 % Eosinophils % 1 % Basophils % 0 % Neutrophils # 7.8 H (1.3-7.7) k/uL Lymphocytes # 0.7 L (1.0-4.8) k/uL Monocytes # 0.6 (0-1.0) k/uL Eosinophils # 0.1 (0-0.7) k/uL Basophils # 0.0 (0-0.2) k/uL Hypochromasia Slight PT (9.0-12.0) sec INR (<1.2) APTT (22.0-30.0) sec Sodium 140 (137-145) mmol/L Potassium 4.9 (3.5-5.1) mmol/L Chloride 106 (98-107) mmol/L Carbon Dioxide 23 (22-30) mmol/L Anion Gap 11 mmol/L BUN 26 H (9-20) mg/dL Creatinine 1.03 (0.66-1.25) mg/dL Est GFR (CKD-EPI)AfAm 82 (>60 ml/min/1.73 sqM) Est GFR (CKD-EPI)NonAf 71 (>60 ml/min/1.73 sqM) Glucose 91 (74-99) mg/dL Plasma Lactic Acid Jayden 1.3 (0.7-2.0) mmol/L Calcium 9.2 (8.4-10.2) mg/dL Magnesium 2.0 (1.6-2.3) mg/dL Total Bilirubin 1.2 (0.2-1.3) mg/dL AST 24 (17-59) U/L ALT 25 (21-72) U/L Alkaline Phosphatase 157 H (38-126) U/L Troponin I (0.000-0.034) ng/mL NT-Pro-B Natriuret Pep pg/mL Total Protein 6.5 (6.3-8.2) g/dL Albumin 4.0 (3.5-5.0) g/dL TSH 2.560 (0.465-4.680) mIU/L Free T4 1.49 (0.78-2.19) ng/dL Urine Color Urine Appearance (Clear) Urine pH (5.0-8.0) Ur Specific [place] (1.001-1.035) Urine Protein (Negative) Urine Glucose (UA) (Negative) Urine Ketones (Negative) Urine Blood (Negative) Urine Nitrite (Negative) Urine Bilirubin (Negative) Urine Urobilinogen (<2.0) mg/dL Ur Leukocyte Esterase (Negative) Stool Occult Blood (Negative) 08/08/18 08/08/18 08/08/18 Range/Units 17:00 17:00 17:00 WBC (3.8-10.6) k/uL RBC (4.30-5.90) m/uL Hgb (13.0-17.5) gm/dL Hct (39.0-53.0) % MCV (80.0-100.0) fL MCH (25.0-35.0) pg MCHC (31.0-37.0) g/dL RDW (11.5-15.5) % Plt Count (150-450) k/uL Neutrophils % % Lymphocytes % % Monocytes % % Eosinophils % % Basophils % % Neutrophils # (1.3-7.7) k/uL Lymphocytes # (1.0-4.8) k/uL Monocytes # (0-1.0) k/uL Eosinophils # (0-0.7) k/uL Basophils # (0-0.2) k/uL Hypochromasia PT 12.3 H (9.0-12.0) sec INR 1.2 H (<1.2) APTT 21.7 L (22.0-30.0) sec Sodium (137-145) mmol/L Potassium (3.5-5.1) mmol/L Chloride (98-107) mmol/L Carbon Dioxide (22-30) mmol/L Anion Gap mmol/L BUN (9-20) mg/dL Creatinine (0.66-1.25) mg/dL Est GFR (CKD-EPI)AfAm (>60 ml/min/1.73 sqM) Est GFR (CKD-EPI)NonAf (>60 ml/min/1.73 sqM) Glucose (74-99) mg/dL Plasma Lactic Acid Jayden (0.7-2.0) mmol/L Calcium (8.4-10.2) mg/dL Magnesium (1.6-2.3) mg/dL Total Bilirubin (0.2-1.3) mg/dL AST (17-59) U/L ALT (21-72) U/L Alkaline Phosphatase (38-126) U/L Troponin I 0.030 (0.000-0.034) ng/mL NT-Pro-B Natriuret Pep pg/mL Total Protein (6.3-8.2) g/dL Albumin (3.5-5.0) g/dL TSH (0.465-4.680) mIU/L Free T4 (0.78-2.19) ng/dL Urine Color Urine Appearance (Clear) Urine pH (5.0-8.0) Ur Specific [place] (1.001-1.035) Urine Protein (Negative) Urine Glucose (UA) (Negative) Urine Ketones (Negative) Urine Blood (Negative) Urine Nitrite (Negative) Urine Bilirubin (Negative) Urine Urobilinogen (<2.0) mg/dL Ur Leukocyte Esterase (Negative) Stool Occult Blood Negative (Negative) 08/08/18 08/08/18 Range/Units 17:40 17:50 WBC (3.8-10.6) k/uL RBC (4.30-5.90) m/uL Hgb (13.0-17.5) gm/dL Hct (39.0-53.0) % MCV (80.0-100.0) fL MCH (25.0-35.0) pg MCHC (31.0-37.0) g/dL RDW (11.5-15.5) % Plt Count (150-450) k/uL Neutrophils % % Lymphocytes % % Monocytes % % Eosinophils % % Basophils % % Neutrophils # (1.3-7.7) k/uL Lymphocytes # (1.0-4.8) k/uL Monocytes # (0-1.0) k/uL Eosinophils # (0-0.7) k/uL Basophils # (0-0.2) k/uL Hypochromasia PT (9.0-12.0) sec INR (<1.2) APTT (22.0-30.0) sec Sodium (137-145) mmol/L Potassium (3.5-5.1) mmol/L Chloride (98-107) mmol/L Carbon Dioxide (22-30) mmol/L Anion Gap mmol/L BUN (9-20) mg/dL Creatinine (0.66-1.25) mg/dL Est GFR (CKD-EPI)AfAm (>60 ml/min/1.73 sqM) Est GFR (CKD-EPI)NonAf (>60 ml/min/1.73 sqM) Glucose (74-99) mg/dL Plasma Lactic Acid Jayden (0.7-2.0) mmol/L Calcium (8.4-10.2) mg/dL Magnesium (1.6-2.3) mg/dL Total Bilirubin (0.2-1.3) mg/dL AST (17-59) U/L ALT (21-72) U/L Alkaline Phosphatase (38-126) U/L Troponin I (0.000-0.034) ng/mL NT-Pro-B Natriuret Pep 4150 pg/mL Total Protein (6.3-8.2) g/dL Albumin (3.5-5.0) g/dL TSH (0.465-4.680) mIU/L Free T4 (0.78-2.19) ng/dL Urine Color Yellow Urine Appearance Clear (Clear) Urine pH 5.0 (5.0-8.0) Ur Specific [place] 1.012 (1.001-1.035) Urine Protein Negative (Negative) Urine Glucose (UA) Negative (Negative) Urine Ketones Negative (Negative) Urine Blood Negative (Negative) Urine Nitrite Negative (Negative) Urine Bilirubin Negative (Negative) Urine Urobilinogen <2.0 (<2.0) mg/dL Ur Leukocyte Esterase Negative (Negative) Stool Occult Blood (Negative) Disposition Clinical Impression: Pulmonary edema Disposition: ADMITTED IP TO THIS HOSP Referrals: Juan C Beltran MD [Primary Care Provider] - 1-2 days Time of Disposition: 18:58
[2018-08-08 17:30] LABS: Calcium 9.2 mg/dL (8.4-10.2); Potassium 4.9 mmol/L (3.5-5.1); Total Bilirubin 1.2 mg/dL (0.2-1.3); Total Protein 6.5 g/dL (6.3-8.2)
[2018-08-08 17:37] LABS: INR 1.2 (<1.2); Prothrombin Time 12.3 sec (9.0-12.0)
--- NOTE | 2018-08-08 17:44 | XR ---
EXAMINATION TYPE: XR chest 2V DATE OF EXAM: 08/08/2018 COMPARISON: 07/28/2018 HISTORY: Weakness TECHNIQUE: Frontal and lateral views of the chest are obtained. FINDINGS: Heart is enlarged. There is some pulmonary vascular congestion. There is infiltrate in the left lower lobe and blunting left costophrenic angle. There are chest leads. Bony thorax appears int act. IMPRESSION: Cardiomegaly. There is pleural fluid and pneumonic consolidation left lower lobe that is new compared to last exam.
[2018-08-08 17:45] LABS: T4, Free (Free Thyroxine) 1.49 ng/dL (0.78-2.19)
[2018-08-08 17:57] LABS: Partial Thromboplastin Time 21.7 sec (22.0-30.0)
[2018-08-08 18:12] LABS: Appearance,Urine Clear (Clear); Bilirubin,Urine Negative (Negative); Blood,Urine Negative (Negative); Color,Urine Yellow; Glucose,Urine (UA) Negative (Negative); Ketones,Urine Negative (Negative); Leukocyte Esterase,Urine Negative (Negative); Nitrite,Urine Negative (Negative); Protein,Urine Negative (Negative); Specific Gravity,Urine 1.012 (1.001-1.035); Urobilinogen,Urine <2.0 mg/dL (<2.0)
[2018-08-08] MEDS ORDERED: NITROGLYCERIN OINT 1 INCH/GM PACKET TOPICAL STA (18:57)
[2018-08-08] MEDS ORDERED: FUROSEMIDE 10 MG/ML 4 ML VIAL IV STA (18:57)
[2018-08-08] MEDS: NITROGLYCERIN OINT 1 INCH/GM PACKET TOPICAL SCH (20:09)
[2018-08-08] MEDS: FUROSEMIDE 10 MG/ML 4 ML VIAL IV SCH (20:17)
[2018-08-08] MEDS ORDERED: ALPRAZolam 0.5 MG TAB PO PRN (21:09)
[2018-08-08] MEDS: METOPROLOL TARTRATE 50 MG TAB PO SCH (21:25)
[2018-08-08] MEDS: APIXABAN 5 MG TAB PO SCH (21:26)
[2018-08-08] MEDS: ACETAMINOPHEN TAB 500 MG TAB PO SCH (21:26)
[2018-08-08] MEDS: TEMAZEPAM 30 MG CAP PO PRN (21:26)
--- NOTE | 2018-08-08 23:21 | P.HPIM ---
History of Present Illness H&P Date: 08/08/18 Chief Complaint: Exertional dyspnea 77-year-old male with history of systolic CHF EF of 4550 percent, A. narayan on Eliquis. Patient comes in today to the hospital due to complaints of progressive exertional dyspnea. Patient gets shortness of breath with minimal exertion just walking around the house he would like to be more active and go out and play golf but he is not able to do that this has been going on for the past couple months for which he got hospitalized multiple times however symptoms has been getting worse over the past couple weeks since his discharged 1 week ago he did not feel better and his symptoms get getting worse. He is also reporting some chest discomfort when trying to ambulate to be active where he feels chest tightness over the left side 5-6 out of 10 in severity and nonradiating goes away with resting and relaxation usually lasting for few minutes not associated with any nausea vomiting palpitations diaphoresis. But is associated with some shortness of breath. Otherwise he denies any changes in his weight he denies any peripheral swelling. She is compliant with his home medications. His been taking clindamycin for mastoiditis since his last discharge, he has noticed some diarrhea that he developed over the past couple days where he describes frequent pasty bowel movement with some loose component over 5 times a day. No associated abdominal pain fevers or chills. Patient denies any orthopnea but does report paroxysmal nocturnal dyspnea that's chronic in nature patient does not use any home oxygen or devices for ambulation he has quit smoking over 40 years ago He denies any changes in his urinary habits denies any nausea vomiting. Denies any GI bleeding In the ED chest x-ray showed left pleural effusion, labs showed elevated proBNP patient admitted for IV diuresis and cardiology evaluation. Review of Systems Pertinent positives as noted in HPI. All other systems were reviewed and are negative Past Medical History Past Medical History: Atrial Fibrillation, GERD/Reflux, Hearing Disorder / Deafness, Hyperlipidemia, Hypertension, Osteoarthritis (OA), Prostate Disorder Additional Past Medical History / Comment(s): Tinnitus, Hx kidney stones, BPH, LUNG SCARRING. C/O STOMACH UPSET, new dx afib History of Any Multi-Drug Resistant Organisms: None Reported Past Surgical History: Adenoidectomy, Ear Surgery, Heart Catheterization, Joint Replacement, Tonsillectomy Additional Past Surgical History / Comment(s): oral surgery, diana knee replac ements, thyroid surgery, diana cataracts. EGD, COLONOSCOPY 12/23/17 Past Anesthesia/Blood Transfusion Reactions: No Reported Reaction Past Psychological History: Depression Smoking Status: Former smoker Past Alcohol Use History: Daily Additional Past Alcohol Use History / Comment(s): quit smoking 1986, started smoking age 17. COUPLE BEERS DAILY Past Drug Use History: None Reported - Past Family History Father Family Medical History: Cancer, Congestive Heart Failure (CHF), Hypertension, Myocardial Infarction ([place]) Additional Family Medical History / Comment(s): AT AGE 84-[place] Mother Family Medical History: No Reported History Additional Family Medical History / Comment(s): MOM AT GE 60 MUSCULAR DYS TOPY Medications and Allergies Home Medications Medication Instructions Recorded Confirmed Type Sertraline HCl [Zoloft] 200 mg PO DAILY 10/30/13 08/08/18 History Temazepam [Restoril] 30 mg PO HS 10/30/13 08/08/18 History Alfuzosin HCl [Uroxatral ER] 10 mg PO DAILY 01/14/18 08/08/18 History ALPRAZolam [Xanax] 0.5 mg PO DAILY PRN 06/10/18 08/08/18 History Cholecalciferol [Vitamin D3 (25 1,000 unit PO DAILY 06/10/18 08/08/18 History Mcg = 1000 Iu)] Mirabegron [Myrbetriq] 25 mg PO DAILY 06/10/18 08/08/18 History Apixaban [Eliquis] 5 mg PO BID #60 tab 06/12/18 08/08/18 Rx Metoprolol Tartrate [Lopressor] 50 mg PO BID #60 tab 06/12/18 08/08/18 Rx Furosemide [Lasix] 40 mg PO DAILY 30 Days #30 tab 07/30/18 08/08/18 Rx Butalb/APAP/Caff 50-325-40Mg 1 each PO Q4HR PRN #30 tab 07/31/18 08/08/18 Rx [Fioricet 50-325-40] Lisinopril [Zestril] 5 mg PO DAILY #30 tab 07/31/18 08/08/18 Rx Pantoprazole [Protonix] 40 mg PO DAILY #30 heidi. 07/31/18 08/08/18 Rx Acetaminophen Tab [Tylenol] 1,000 mg PO HS 08/08/18 08/08/18 History Clindamycin HCl [Cleocin] 150 mg PO TID 08/08/18 08/08/18 History Simvastatin [Zocor] 20 mg PO DAILY 08/08/18 08/08/18 History Vitamin E (Dl,Tocopheryl Acet) 400 unit PO DAILY 08/08/18 08/08/18 History [Vitamin E] Allergies Allergy/AdvReac Type Severity Reaction Status Date / Time hydrocodone bitartrate Allergy Anaphylaxis Verified 08/08/18 17:15 [From Vicodin] Penicillins Allergy Anaphylaxis Verified 08/08/18 17:15 propoxyphene napsylate Allergy Anaphylaxis Verified 08/08/18 17:15 [From Darvocet-N 100] tamsulosin HCl [From Flomax] Allergy Anaphylaxis Verified 08/08/18 17:15 Physical Exam Vitals: Vital Signs Temp Pulse Pulse Resp BP BP Pulse Ox 08/08/18 19:58 98.1 F 83 20 158/68 94 L 08/08/18 19:41 98.1 F 90 18 110/74 98 08/08/18 16:29 97.7 F 81 24 148/58 95 Intake and Output 08/08/18 08/08/18 08/08/18 06:59 14:59 22:59 Other: Weight 139.706 kg Constitutional: No acute distress, conversant, pleasant, obese Eyes: Anicteric sclerae, moist conjunctiva, no lid-lag Pupils equal round reactive to light ENMT: NC/AT Oropharynx clear, no erythema, exudates Neck: Supple, FROM, no masses, or JVD No carotid bruits No thyromegaly Lungs: Good breath sounds bilaterally, audible finance respiratory rales at both lung bases Clear to percussion Normal respiratory effort, no accessory muscle use Cardiovascular: Heart regular in rate and rhythm, No murmurs, gallops, or rubs No peripheral edema Abdominal: Soft Nontender, no guarding, rebound or rigidity Abdomen moving with respiration Normoactive bowel sounds No hepatomegaly, No splenomegaly No palpable mass No abdominal wall hernia noted Skin: Normal temperature, tone, texture, turgor No induration No subcutaneous nodules No rash, lesions No ulcers Extremities: No digital cyanosis No clubbing Pedal pulses intact and symmetrical Radial pulses intact and symmetrical No calf tenderness Psychiatric: Alert and oriented to person, place and time Appropriate affect fair judgment Neuro Muscles Strength 5/5 in all 4 extremities Sensation to light touch grossly present throughout Cranial nerves II-XII grossly intact except for cranial nerve VIII hard of hearing No focal sensory deficits Lymphatics: no palpable cervical or supraclavicular , or inguinal lymph nodes Results CBC & Chem 7: 08/08/18 17:00 08/08/18 17:00 Labs: Abnormal Lab Results - Last 24 Hours (Table) 08/08/18 08/08/18 08/08/18 Range/Units 17:00 17:00 17:00 Neutrophils # 7.8 H (1.3-7.7) k/uL Lymphocytes # 0.7 L (1.0-4.8) k/uL PT 12.3 H (9.0-12.0) sec INR 1.2 H (<1.2) APTT 21.7 L (22.0-30.0) sec BUN 26 H (9-20) mg/dL Alkaline Phosphatase 157 H (38-126) U/L Assessment and Plan Assessment: 77-year-old male with history of systolic CHF, A. fib on Eliquis. He is an inpatient with anticipated length of stay more than 48 hours due to exertional dyspnea progressive in nature with pulmonary edema and acute exacerbation of systolic CHF. Patient also need to rule out coronary artery disease as an underlying cause for his exertional dyspnea Frequent hospitalization over the past couple months most recent discharge was about a week ago where he had multiple complaints at that time extensive workup was done his most recent echocardiogram from May 2018 showed left ventricular ejection fraction of 4550 percent, during his last hospitalization is complaining of dysphagia EGD last time done was December 2017 showed gastritis. ENT evaluated the patient for difficulty swallowing and laryngoscope was unremarkable, barium swallow was unremarkable. GI recommended that patient continues on PPI. Patient also complains of headaches CT angiogram of the brain showed no acute process neurology cleared the patient and recommended he terence nues on Fioricet and to continue outpatient follow-up with them. Patient most recent left heart cath 2013 showed minimal disease involving LAD Plan: Progressive exertional dyspnea rule out underlying coronary artery disease Acute exacerbation of chronic systolic CHF most recent left ventricular ejection fraction 45/50% Pulmonary edema Plan for IV diuresis Continue home meds beta bernardino and ONIEL inhibitor Continue with aspirin and statin Cardiology consult New onset diarrhea patient is on clindamycin for mastoiditis discontinue Clinda Check C. diff Chronic conditions A. fib on Eliquis DVT prophylaxis patient is on Eliquis for A. fib PT/OT evaluation Evaluate for ambulatory oxygen requirement Preformed a thorough record review from recent hospitalization for multiple complaints as summarized above in the assessment section Surrogate decision-maker: Patient CODE STATUS: Full code Discussed with: Patient, ER, RN Anticipated discharge: 48-[address]: pending clinical course A total of 60 minutes was spent on the care of this complex patient more than 50% of the time was spent in counseling and care coordination.
[2018-08-09] MEDS ORDERED: FUROSEMIDE 10 MG/ML 4 ML VIAL IV SCH
[2018-08-09] MEDS: BUTALB/APAP/CAFF 50-325-40MG TAB PO PRN ×3 (03:52→20:04)
[2018-08-09 06:13] LABS: Basophils % (A) 0 %; Eosinophils # (A) 0.1 k/uL (0-0.7); Eosinophils % (A) 1 %; HCT 42.9 % (39.0-53.0); HGB 13.2 gm/dL (13.0-17.5); Hypochromasia Moderate; Lymphocytes % (A) 11 %; MCH 30.9 pg (25.0-35.0); MCHC 30.7 g/dL (31.0-37.0); MCV 100.4 fL (80.0-100.0); Macrocytosis Slight; Mean Platelet Volume 9.3; Monocytes # (A) 0.6 k/uL (0-1.0); Monocytes % (A) 6 %; Neutrophils # (A) 7.4 k/uL (1.3-7.7); Neutrophils % (A) 81 %; Platelet Count 184 k/uL (150-450); RBC 4.27 m/uL (4.30-5.90); RDW 14.5 % (11.5-15.5); WBC 9.2 k/uL (3.8-10.6)
[2018-08-09 06:20] LABS: Calcium 8.9 mg/dL (8.4-10.2); Potassium 4.5 mmol/L (3.5-5.1)
[2018-08-09] MEDS: PANTOPRAZOLE 40 MG TABLET PO SCH (06:34)
[2018-08-09] MEDS: ALFUZOSIN HCL PO SCH (08:01)
[2018-08-09] MEDS: SERTRALINE 100 MG TAB PO SCH (08:12)
[2018-08-09] MEDS: ASPIRIN 81 MG PO SCH (08:12)
[2018-08-09] MEDS: ATORVASTATIN 10 MG TAB PO SCH (08:12)
[2018-08-09] MEDS: FUROSEMIDE 10 MG/ML 4 ML VIAL IV SCH ×2 (08:12→20:05)
[2018-08-09] MEDS: LISINOPRIL 5 MG TAB PO SCH (08:12)
[2018-08-09] MEDS: APIXABAN 5 MG TAB PO SCH ×2 (08:12→20:05)
[2018-08-09] MEDS: Mirabegron [Myrbetriq] PO SCH (08:13)
[2018-08-09] MEDS: METOPROLOL TARTRATE 50 MG TAB PO SCH ×4 (08:13→20:05)
--- NOTE | 2018-08-09 08:13 | P.CRDCN ---
History of Present Illness Consult date: 08/09/18 Requesting physician: Diane Huffman Consult reason: congestive heart failure Chief complaint: Shortness of breath History of present illness: This is a 77-year-old gentleman who follows with Dr. Alvares in the office. He has a known history of hypertension, atrial fibrillation, mild cardiomyopathy, GERD, hyperlipidemia, he has had several recent admissions to the hospital with symptoms of shortness of breath and congestive heart failure. Most recent echocardiogram with Doppler study was performed in May of this year revealed an ejection fraction of 45-50%. He presents to the hospital again on this occasion with symptoms of progressively worsening shortness of breath, patient also states that he feels extremely weak at home and has no appetite. Chest x-ray on admission here shows cardiomegaly, there is pleural fluid and pneumonic consolidation of the left lower lobe that is new as compared with last exam. His EKG shows atrial fibrillation with a moderately rapid ventricular response. White blood cell count is normal, hemoglobin 13.2, platelet count 184. Sodium 139, potassium 4.5, BUN 26 and creatinine 1.1. Troponin 0.030. TSH 2.5. BNP level 4150. Blood pressure 130/60 with a heart rate of 100, 92% on room air. At the time of my examination this morning he is lying flat in bed, he still appears to be somewhat short of breath. Past Medical History Past Medical History: Atrial Fibrillation, GERD/Reflux, Hearing Disorder / Deafness, Hyperlipidemia, Hypertension, Osteoarthritis (OA), Prostate Disorder Additional Past Medical History / Comment(s): Tinnitus, Hx kidney stones, BPH, LUNG SCARRING. C/O STOMACH UPSET, new dx afib History of Any Multi-Drug Resistant Organisms: None Reported Past Surgical History: Adenoidectomy, Ear Surgery, Heart Catheterization, Joint Replacement, Tonsillectomy Additional Past Surgical History / Comment(s): oral surgery, diana knee replacements, thyroid surgery, diana cataracts. EGD, COLONOSCOPY 12/23/17 Past Anesthesia/Blood Transfusion Reactions: No Reported Reaction Past Psychological History: Depression Smoking Status: Former smoker Past Alcohol Use History: Daily Additional Past Alcohol Use History / Comment(s): quit smoking 1986, started smo grupo age 17. COUPLE BEERS DAILY Past Drug Use History: None Reported - Past Family History Father Family Medical History: Cancer, Congestive Heart Failure (CHF), Hypertension, Myocardial Infarction ([place]) Additional Family Medical History / Comment(s): AT AGE 84-[place] Mother Family Medical History: No Reported History Additional Family Medical History / Comment(s): MOM AT GE 60 MUSCULAR DYSTOPY Medications and Allergies Home Medications Medication Instructions Recorded Confirmed Type Sertraline HCl [Zoloft] 200 mg PO DAILY 10/30/13 08/08/18 History Temazepam [Restoril] 30 mg PO HS 10/30/13 08/08/18 History Alfuzosin HCl [Uroxatral ER] 10 mg PO DAILY 01/14/18 08/08/18 History ALPRAZolam [Xanax] 0.5 mg PO DAILY PRN 06/10/18 08/08/18 History Cholecalciferol [Vitamin D3 (25 1,000 unit PO DAILY 06/10/18 08/08/18 History Mcg = 1000 Iu)] Mirabegron [Myrbetriq] 25 mg PO DAILY 06/10/18 08/08/18 History Apixaban [Eliquis] 5 mg PO BID #60 tab 06/12/18 08/08/18 Rx Metoprolol Tartrate [Lopressor] 50 mg PO BID #60 tab 06/12/18 08/08/18 Rx Furosemide [Lasix] 40 mg PO DAILY 30 Days #30 tab 07/30/18 08/08/18 Rx Butalb/APAP/Caff 50-325-40Mg 1 each PO Q4HR PRN #30 tab 07/31/18 08/08/18 Rx [Fioricet 50-325-40] Lisinopril [Zestril] 5 mg PO DAILY #30 tab 07/31/18 08/08/18 Rx Pantoprazole [Protonix] 40 mg PO DAILY #30 tablet. 07/31/18 08/08/18 Rx Acetaminophen Tab [Tylenol] 1,000 mg PO HS 08/08/18 08/08/18 History Clindamycin HCl [Cleocin] 150 mg PO TID 08/08/18 08/08/18 History Simvastatin [Zocor] 20 mg PO DAILY 08/08/18 08/08/18 History Vitamin E (Dl,Tocopheryl Acet) 400 unit PO DAILY 08/08/18 08/08/18 History [Vitamin E] Allergies Allergy/AdvReac Type Severity Reaction Status Date / Time hydrocodone bitartrate Allergy Anaphylaxis Verified 08/08/18 17:15 [From Vicodin] Penicillins Allergy Anaphylaxis Verified 08/08/18 17:15 propoxyphene napsylate Allergy Anaphylaxis Verified 08/08/18 17:15 [From Darvocet-N 100] tamsulosin HCl [From Flomax] Allergy Anaphylaxis Verified 08/08/18 17:15 Physical Exam Vitals: Vital Signs Temp Pulse Pulse Resp BP BP Pulse Ox 08/09/18 04:00 104 H 20 131/67 92 L 08/08/18 23:29 56 L 18 101/58 92 L 08/08/18 19:58 98.1 F 83 20 158/68 94 L 08/08/18 19:41 98.1 F 90 18 110/74 98 08/08/18 16:29 97.7 F 81 24 148/58 95 Intake and Output 08/08/18 08/09/18 08/09/18 22:59 06:59 14:59 Intake Total 240 Output Total 1000 200 Balance -1000 -200 240 Intake: Oral 240 Output: Urine 1000 200 Other: # Voids 2 Weight 139.8 kg 138.5 kg PHYSICAL EXAMINATION: GENERAL: 77-year-old gentleman in no acute distress at the time of my examination HEENT: Head is atraumatic, normocephalic. Pupils equal, round. Sclera anicteric. Conjunctiva are clear. Mucous membranes of the mouth are moist. Neck is supple. There is elevated jugular venous pressure. No carotid bruit is heard. HEART EXAMINATION: Heart S1 and S2 irregularly irregular CHEST EXAMINATION: Lungs are clear with diminished air entry to the bases ABDOMEN: Soft, nontender. Bowel sounds are heard. No organomegaly noted. EXTREMITIES: 2+ peripheral pulses with trace evidence of peripheral edema and no calf tenderness noted. NEUROLOGIC patient is awake, alert and oriented 3 . . Results 08/09/18 05:49 08/09/18 05:49 Cardiac Enzymes 08/08/18 08/08/18 Range/Units 17:00 17:00 AST 24 (17-59) U/L Troponin I 0.030 (0.000-0.034) ng/mL Coagulation 08/08/18 Range/Units 17:00 PT 12.3 H (9.0-12.0) sec APTT 21.7 L (22.0-30.0) sec CBC 08/08/18 08/09/18 Range/Units 17:00 05:49 WBC 9.3 9.2 (3.8-10.6) k/uL RBC 4.59 4.27 L (4.30-5.90) m/uL Hgb 14.2 13.2 (13.0-17.5) gm/dL Hct 45.2 42.9 (39.0-53.0) % Plt Count 196 184 (150-450) k/uL Comprehensive Metabolic Panel 08/08/18 08/09/18 Range/Units 17:00 05:49 Sodium 140 139 (137-145) mmol/L Potassium 4.9 4.5 (3.5-5.1) mmol/L Chloride 106 103 (98-107) mmol/L Carbon Dioxide 23 25 (22-30) mmol/L BUN 26 H 26 H (9-20) mg/dL Creatinine 1.03 1.15 (0.66-1.25) mg/dL Glucose 91 99 (74-99) mg/dL Calcium 9.2 8.9 (8.4-10.2) mg/dL AST 24 (17-59) U/L ALT 25 (21-72) U/L Alkaline Phosphatase 157 H (38-126) U/L Total Protein 6.5 (6.3-8.2) g/dL Albumin 4.0 (3.5-5.0) g/dL Current Medications Generic Name Dose Route Start Last Admin Trade Name Freq PRN Reason Stop Dose Admin Acetaminophen 1,000 mg 08/08/18 21:15 08/08/18 21:26 Tylenol Tab PO 1,000 mg HS KALEY Administration Acetaminophen/Butalbital/Caffeine 1 each 08/08/18 21:09 08/09/18 03:52 Fioricet 50-325-40 PO 1 each Q4HR PRN Administration Headache Alprazolam 0.5 mg 08/08/18 21:09 Xanax PO DAILY PRN Anxiety Apixaban 5 mg 08/08/18 21:15 08/08/18 21:26 Eliquis PO 5 mg BID KALEY Administration Aspirin 81 mg 08/09/18 09:00 Aspirin PO DAILY KALEY Atorvastatin Calcium 10 mg 08/09/18 09:00 Lipitor PO DAILY KALEY Furosemide 40 mg 08/08/18 21:00 08/08/18 20:17 Lasix IV 40 mg Q12HR KALEY Administration Lisinopril 5 mg 08/09/18 09:00 Zestril PO DAILY KALEY Metoprolol Tartrate 50 mg 08/08/18 21:15 08/08/18 21:25 Lopressor PO 50 mg BID KALEY Administration Nitroglycerin 1 inch 08/08/18 22:00 08/08/18 20:09 Nitro-Bid Oint TOPICAL Not Given QID KALEY Alfuzosin Hcl [ 10 mg 08/09/18 09:00 Uroxatral Er] PO DAILY KALEY Mirabegron [ 25 mg 08/09/18 09:00 Myrbetriq] PO DAILY KALEY Pantoprazole Sodium 40 mg 08/09/18 07:30 08/09/18 06:34 Protonix PO 40 mg [id number] KALEY Administration Sertraline HCl 200 mg 08/09/18 09:00 Zoloft PO DAILY KALEY Temazepam 30 mg 08/08/18 21:15 08/08/18 21:26 Restoril PO 30 mg HS PRN Administration Insomnia Intake and Output 08/08/18 08/09/18 08/09/18 22:59 06:59 14:59 Intake Total 240 Output Total 1000 200 Balance -1000 -200 240 Intake: Oral 240 Output: Urine 1000 200 Other: # Voids 2 Weight 139.8 kg 138.5 kg 08/09/18 05:49 08/09/18 05:49 EKG Interpretations (text) EKG shows atrial fibrillation with moderately rapid ventricular response Assessment and Plan Plan: Assessment and plan #1 symptoms of shortness of breath, likely acute on chronic congestive heart failure, diastolic. Most recent echo performed in May of this year revealed an ejection fraction of 45-50%. #2 chronic persistent atrial fibrillation, on Eliquis for anticoagulation #3 hypertension #4 hyperlipidemia #5 GERD Plan As the patient just recently had an echo performed in May we will not repeat an echo this admission. We'll recommend to continue the patient on IV Lasix. We will discontinue the Nitropaste. Increase dose of beta bernardino for more optimal heart rate control. Further recommendations to follow. DNP note has been reviewed, I agree with a documented findings and plan of care. Patient was seen and examined.
[2018-08-09] MEDS: NITROGLYCERIN OINT 1 INCH/GM PACKET TOPICAL SCH (08:14)
[2018-08-09 11:01] VITALS: BMI 38.1
--- NOTE | 2018-08-09 13:58 | P.PN ---
Subjective Progress Note Date: 08/09/18 Principal diagnosis: CHF exacerbation Patient was seen and examined. No acute events overnight. Patient reports no changes in his breathing. He denies any chest pain or palpitations. No nausea or vomiting. No fever or chills. Complains of some indigestion. Objective - Vital Signs Vital signs: Vital Signs Temp 98.1 F 08/09/18 12:00 Pulse 56 L 08/09/18 12:00 Resp 20 08/09/18 12:00 BP 142/63 08/09/18 12:00 Pulse Ox 94 L 08/09/18 12:00 Intake & Output 08/08/18 08/09/18 08/09/18 18:59 06:59 18:59 Intake Total 480 Output Total 1200 600 Balance -1200 -120 Weight 139.706 kg 138.5 kg 138.5 kg Intake: Oral 480 Output: Urine 1200 600 Other: # Voids 2 # Bowel Movements 1 - Exam General: [non toxic], [no distress], [appears at stated age] Derm: [warm], [dry] Head: [atraumatic], [normocephalic], [symmetric] Eyes: [EOMI], [no lid lag], [anicteric sclera] Mouth: [no lip lesion], [mucus membranes moist] Cardiovascular: [S1S2 reg], [no murmur], [positive posterior tibial pulse bilateral], Lungs: [Decreased breath sounds bilateral], [Rales heard at the bases bilaterally] , [no accessory muscle use] Abdominal: [soft], [ nontender to palpation], [no guarding], [no appreciable organomegaly] Ext: [no gross muscle atrophy], [no edema], [no contractures] Neuro: [no focal neuro deficits] Psych: [Alert], [oriented], [appropriate affect] - Labs CBC & Chem 7: 08/09/18 05:49 08/09/18 05:49 Labs: Abnormal Lab Results - Last 24 Hours (Table) 08/08/18 08/08/18 08/08/18 Range/Units 17:00 17:00 17:00 RBC (4.30-5.90) m/uL MCV (80.0-100.0) fL MCHC (31.0-37.0) g/dL Neutrophils # 7.8 H (1.3-7.7) k/uL Lymphocytes # 0.7 L (1.0-4.8) k/uL PT 12.3 H (9.0-12.0) sec INR 1.2 H (<1.2) APTT 21.7 L (22.0-30.0) sec BUN 26 H (9-20) mg/dL Alkaline Phosphatase 157 H (38-126) U/L 08/09/18 08/09/18 Range/Units 05:49 05:49 RBC 4.27 L (4.30-5.90) m/uL MCV 100.4 H (80.0-100.0) fL MCHC 30.7 L (31.0-37.0) g/dL Neutrophils # (1.3-7.7) k/uL Lymphocytes # (1.0-4.8) k/uL PT (9.0-12.0) sec INR (<1.2) APTT (22.0-30.0) sec BUN 26 H (9-20) mg/dL Alkaline Phosphatase (38-126) U/L Assessment and Plan Assessment: Assessment and Plan Acute on chronic diastolic CHF exacerbation Atrial fibrillation, chronic persistent Hypertension Hyperlipidemia BNP 4150, chest x-ray showing cardiomegaly and pleural fluid. Echocardiogram May 2018 shows EF 45-50% with normal ventricular wall thickness. Plans: Continue diuresis with Lasix 40 mg IV twice a day. Restart ONIEL inhibitor. Restart beta bernardino. Strict intake and output take. Daily weights. Keep magnesium greater than 2 and potassium greater than 4. Follow-up cardiology consultation. TSH is within normal limits. Plans: Continue beta bernardino for rate control. Restart Eliquis. Telemetry monitoring. BP 142/63. Plans: Continue lisinopril and metoprolol. Monitor vitals, adjust medications as necessary. Plans: Continue aspirin and Lipitor. Patient admitted for acute on chronic diastolic CHF exacerbation. Cardiology was consulted. Patient is pending clinical improvement. Anticipated DC in 1-2 days.
[2018-08-09] MEDS: ACETAMINOPHEN TAB 500 MG TAB PO SCH (20:03)
[2018-08-10] MEDS: BUTALB/APAP/CAFF 50-325-40MG TAB PO PRN ×3 (00:46→13:48)
[2018-08-10] MEDS: TEMAZEPAM 30 MG CAP PO PRN (00:48)
[2018-08-10] MEDS: PANTOPRAZOLE 40 MG TABLET PO SCH (06:11)
[2018-08-10] MEDS: ALFUZOSIN HCL PO SCH (08:20)
[2018-08-10] MEDS: Mirabegron [Myrbetriq] PO SCH (08:21)
[2018-08-10] MEDS: SERTRALINE 100 MG TAB PO SCH (08:22)
[2018-08-10] MEDS: ASPIRIN 81 MG PO SCH (08:22)
[2018-08-10] MEDS: ATORVASTATIN 10 MG TAB PO SCH (08:22)
[2018-08-10] MEDS: METOPROLOL TARTRATE 50 MG TAB PO SCH (08:22)
[2018-08-10] MEDS: APIXABAN 5 MG TAB PO SCH (08:22)
[2018-08-10] MEDS: LISINOPRIL 5 MG TAB PO SCH (08:38)
[2018-08-10] MEDS ORDERED: FUROSEMIDE 40 MG TAB PO SCH (09:00)
[2018-08-10 10:25] VITALS: RESP 20
[2018-08-10] MEDS ORDERED: METOPROLOL TARTRATE 25 MG TAB PO STA (10:58)
[2018-08-10] MEDS ORDERED: METOPROLOL TARTRATE 50 MG TAB PO SCH ×2 (12:00→21:00)
--- NOTE | 2018-08-10 12:33 | P.PN ---
Subjective This is a 77-year-old gentleman who follows with Dr. Alvares in the office. He has a known history of hypertension, atrial fibrillation, mild cardiomyopathy, GERD, hyperlipidemia, he has had several recent admissions to the hospital with symptoms of shortness of breath and congestive heart failure. Most recent echocardiogram with Doppler study was performed in May of this year revealed an ejection fraction of 45-50%. He presents to the hospital again on this occasion with symptoms of progressively worsening shortness of breath, patient also states that he feels extremely weak at home and has no appetite. Chest x-ray on admission here shows cardiomegaly, there is pleural fluid and pneumonic consolidation of the left lower lobe that is new as compared with last exam. His EKG shows atrial fibrillation with a moderately rapid ventricular response. White blood cell count is normal, hemoglobin 13.2, platelet count 184. Sodium 139, potassium 4.5, BUN 26 and creatinine 1.1. Troponin 0.030. TSH 2.5. BNP level 4150. Blood pressure 130/60 with a heart rate of 100, 92% on room air. At the time of my examination this morning he is lying flat in bed, he still appears to be somewhat short of breath. 08/11/2015 Patient is seen and examined in the room with his family at the bedside. Overall he seems to have improved since admission. He denies any significant shortness of breath, chest pain, dizziness or palpitations. His heart rate continues to fluctuate and seems to increase with mild activity such as walking in the halls. Blood pressure 103/59 heart rate fluctuating between 80s and 120s. Laboratory data reviewed, WBC 9.2, hemoglobin 13.2, platelets 184, sodium 139, potassium 4.5, creatinine 1.15 and NT proBNP 4150. Currently maintained on IV Lasix. GENERAL: Well-appearing, well-nourished and in no acute distress. NECK: Supple without JVD or thyromegaly. LUNGS: Breath sounds clear to auscultation bilaterally. Respiration equal and unlabored. No wheezes, rales or rhonchi. HEART: Irregular rate and rhythm with systolic ejection murmur at the left sternal border, no rubs or gallops. S1 and S2 heard. EXTREMITIES: Normal range of motion, no edema. No clubbing or cyanosis. Peripheral pulses intact. ASSESSMENT Acute on chronic diastolic heart failure, improved since admission Chronic persistent atrial fibrillation on long-term anticoagulation with variable ventricular rates Hypertension Dyslipidemia Gastroesophageal reflux disease PLAN Transitioned to oral diuretics, Lasix 40 mg twice a day. Increase beta bernardino to 75 mg in the morning, 50 mg in the afternoon and 75 mg at bedtime. Lengthy discussion had with the patient and his regarding disease process and what to expect. We have advised him to take his beta blockers regularly around the clock as prescribed and maintained optimal heart rate control. He will follow-up in the office and see Dr. Alvares and further decision will be made regarding moving forward with probable cardioversion. He may be discharged from a cardiac perspective on current medical regimen. Nurse Practitioner note has been reviewed, I agree with a documented findings and plan of care. Patient was seen and examined. Objective - Vital Signs Vital signs: Vital Signs Temp 97.5 F L 08/10/18 07:40 Pulse 88 08/10/18 07:40 Resp 20 08/10/18 07:40 BP 103/59 08/10/18 09:00 Pulse Ox 94 L 08/10/18 07:40 Intake & Output 08/09/18 08/10/18 08/10/18 18:59 06:59 18:59 Intake Total 702 180 Output Total 600 900 Balance 102 -720 Weight 138.5 kg Intake: Oral 702 180 Output: Urine 600 900 Other: # Voids 1 # Bowel Movements 1 - Labs CBC & Chem 7: 08/09/18 05:49 08/09/18 05:49
[2018-08-10 12:44] VITALS: BP 115/59; PULSE 61; TEMP 97.6
--- NOTE | 2018-08-10 13:13 | P.DS ---
Providers Date of admission: 08/08/18 19:01 Expected date of discharge: 08/10/18 Attending physician: Diane Huffman DO Consults: 08/08/18 19:01 Consult Physician Routine Consulting Provider: [facility] Consult Reason/Comments: Acute pulmonary edema Do you want consulting provider notified?: Yes Primary care physician: [facility] Course: 77-year-old male with history of systolic CHF EF of 4550 percent, A. fib on Eliquis. Patient comes in today to the hospital due to complaints of progressive exertional dyspnea. Patient gets shortness of breath with minimal exertion just walking around the house he would like to be more active and go out and play golf but he is not able to do that this has been going on for the past couple months for which he got hospitalized multiple times however symptoms has been getting worse over the past couple weeks since his discharged 1 week ago he did not feel better and his symptoms get getting worse. He is also reporting some chest discomfort when trying to ambulate to be active where he feels chest tightness over the left side 5-6 out of 10 in severity and nonradiating goes away with resting and relaxation usually lasting for few minutes not associated with any nausea vomiting palpitations diaphoresis. But is associated with some shortness of breath. Otherwise he denies any changes in his weight he denies any peripheral swelling. She is compliant with his home medications. His been taking clindamycin for mastoiditis since his last discharge, he has noticed some diarrhea that he developed over the past couple days where he describes frequent pasty bowel movement with some loose component over 5 times a day. No associated abdominal pain fevers or chills. Patient denies any orthopnea but does report paroxysmal nocturnal dyspnea that's chronic in nature patient does not use any home oxygen or devices for ambulation he has quit smoking over 40 years ago He denies any changes in his urinary habits denies any nausea vomiting. Denies any GI bleeding In the ED chest x-ray showed left pleural effusion, labs showed elevated proBNP patient admitted for IV diuresis and cardiology evaluation. His shortness of breath was thought to be secondary to acute on chronic diastolic CHF exacerbation. BNP was 4150. Chest x-ray show cardiomegaly and pleural fluid. Echocardiogram in May 2018 showed EF 45-50% with normal ventricular wall thickness. Patient was initially diuresed with Lasix 40 mg IV twice a day. He was restarted on his ONIEL inhibitor and beta bernardino. Cardiology was consulted and recommended transitioning him back to oral Lasix. His metoprolol dosage was switched by cardiology as well. His ONIEL inhibitor was discontinued. Patient was seen and examined. No acute events overnight. Patient reports breathing is back to baseline. He denies any chest pain, shortness of breath or palpitations. No nausea or vomiting. No fever or chills. Looking forward to going home. General: [non toxic], [no distress], [appears at stated age] Derm: [warm], [dry] Head: [atraumatic], [normocephalic], [symmetric] Eyes: [EOMI], [no lid lag], [anicteric sclera] Mouth: [no lip lesion], [mucus membranes moist] Cardiovascular: [S1S2 reg], [no murmur], [positive posterior tibial pulse bilateral], Lungs: [Decreased breath sounds bilateral], [no murmur] , [no accessory muscle use] Abdominal: [soft], [ nontender to palpation], [no guarding], [no appreciable organomegaly] Ext: [no gross muscle atrophy], [no edema], [no contractures] Neuro: [no focal neuro deficits] Psych: [Alert], [oriented], [appropriate affect] Assessment and Plan Acute on chronic diastolic CHF exacerbation Atrial fibrillation, chronic persistent Hypertension Hyperlipidemia BNP 4150, chest x-ray showing cardiomegaly and pleural fluid. Echocardiogram May 2018 shows EF 45-50% with normal ventricular wall thickness. Plans: Lasix transitioned from IV to oral. Discontinue ONIEL inhibitor per cardiology recommendations. Increase beta bernardino. Strict intake and output take. Daily weights. Keep magnesium greater than 2 and potassium greater than 4. Follow-up cardiology consultation. TSH is within normal limits. Plans: Continue beta bernardino for rate control. Restart Eliquis. Telemetry monitoring. BP 115/59. Plans: Continue metoprolol. Monitor vitals, adjust medications as necessary. Plans: Continue aspirin and Lipitor. Patient admitted for acute on chronic diastolic CHF exacerbation. Cardiology was consulted. Cleared for discharge by cardiology. Pertinent Studies: Chest x-ray Patient Condition at Discharge: Stable Plan - Discharge Summary New Discharge Prescriptions: New Aspirin 81 mg PO DAILY #90 chew Furosemide [Lasix] 40 mg PO BID@0900,1600 #60 tab Metoprolol Tartrate [Lopressor] 50 mg PO 1200 #30 tab Metoprolol Tartrate [Lopressor] 75 mg PO BID #60 tab Continue Temazepam [Restoril] 30 mg PO HS Sertraline HCl [Zoloft] 200 mg PO DAILY Alfuzosin HCl [Uroxatral ER] 10 mg PO DAILY Mirabegron [Myrbetriq] 25 mg PO DAILY Cholecalciferol [Vitamin D3 (25 Mcg = 1000 Iu)] 1,000 unit PO DAILY ALPRAZolam [Xanax] 0.5 mg PO DAILY PRN PRN Reason: Anxiety Apixaban [Eliquis] 5 mg PO BID #60 tab Butalb/APAP/Caff 50-325-40Mg [Fioricet 50-325-40] 1 each PO Q4HR PRN #30 tab PRN Reason: Headache Pantoprazole [Protonix] 40 mg PO DAILY #30 tablet. Clindamycin HCl [Cleocin] 150 mg PO TID Vitamin E (Dl,Tocopheryl Acet) [Vitamin E] 400 unit PO DAILY Simvastatin [Zocor] 20 mg PO DAILY Acetaminophen Tab [Tylenol] 1,000 mg PO HS Discontinued Metoprolol Tartrate [Lopressor] 50 mg PO BID #60 tab Furosemide [Lasix] 40 mg PO DAILY 30 Days #30 tab Lisinopril [Zestril] 5 mg PO DAILY #30 tab Discharge Medication List Sertraline HCl [Zoloft] 200 mg PO DAILY 10/30/13 [History] Temazepam [Restoril] 30 mg PO HS 10/30/13 [History] Alfuzosin HCl [Uroxatral ER] 10 mg PO DAILY 01/14/18 [History] ALPRAZolam [Xanax] 0.5 mg PO DAILY PRN 06/10/18 [History] Cholecalciferol [Vitamin D3 (25 Mcg = 1000 Iu)] 1,000 unit PO DAILY 06/10/18 [History] Mirabegron [Myrbetriq] 25 mg PO DAILY 06/10/18 [History] Apixaban [Eliquis] 5 mg PO BID #60 tab 06/12/18 [Rx] Butalb/APAP/Caff 50-325-40Mg [Fioricet 50-325-40] 1 each PO Q4HR PRN #30 tab 07/31/18 [Rx] Pantoprazole [Protonix] 40 mg PO DAILY #30 tablet. 07/31/18 [Rx] Acetaminophen Tab [Tylenol] 1,000 mg PO HS 08/08/18 [History] Clindamycin HCl [Cleocin] 150 mg PO TID 08/08/18 [History] Simvastatin [Zocor] 20 mg PO DAILY 08/08/18 [History] Vitamin E (Dl,Tocopheryl Acet) [Vitamin E] 400 unit PO DAILY 08/08/18 [History] Aspirin 81 mg PO DAILY #90 chew 08/10/18 [Rx] Furosemide [Lasix] 40 mg PO BID@0900,1600 #60 tab 08/10/18 [Rx] Metoprolol Tartrate [Lopressor] 50 mg PO 1200 #30 tab 08/10/18 [Rx] Metoprolol Tartrate [Lopressor] 75 mg PO BID #60 tab 08/10/18 [Rx] Follow up Appointment(s)/Referral(s): [facility], [NON-STAFF] - Brigitte Alvares MD [STAFF PHYSICIAN] - 1 Week Juan C Beltran MD [Primary Care Provider] - 1-2 days Activity/Diet/Wound Care/Special Instructions: Diet: Heart healthy Follow-up with PCP within 1-2 days of discharge. Follow-up with cardiology with the appointment given to you. Take all medications as advised. Discharge Disposition: HOME SELF-CARE
--- NOTE | 2018-08-10 13:46 | PN ---
PROGRESS NOTE Nick Vora was admitted yesterday with atrial fib rapid ventricular rate and congestive heart failure. He has an ejection fraction in the 40-45 percent range. I spent a lot of time with the patient and his family including his . Apparently, the patient has been in and out of the hospital 4-5 times since May and he seems to be a bit frustrated. I have advised him that he has atrial fib with a rapid ventricular rate and this may be a contributing factor to his heart failure type picture and ejection fraction in the 40-45 percent range. He sees Dr. Alvares in the office. I suggested that we will optimize his heart rate, increase the diuretics and discharge him if with activity, his heart rate is less than 110. I will speak to Dr. Alvares to see if he can have electrical cardioversion and coronary angiography and then if he has breakthrough atrial fibrillation, he may be a candidate for Tikosyn or pulmonary vein isolation procedure. I discussed this in great detail with the patient and family. I had him walk in the hallways and heart rate was about 120. I am going to place him on 75 mg of Lopressor b.i.d. and another 50 mg in the noon time and Lasix will be 40 b.i.d. and we will discontinue lisinopril and let him go home later today. He has an appointment to see Dr. Alvares on Saturday the . I will do a CBC and BMP on the . MMKIKO / YARYN: [id number] /
[2018-08-11] MEDS ORDERED: LISINOPRIL 5 MG TAB PO SCH (21:00)
== END 2018-08-10 15:05 | disposition home or self-care (01) ==
LOC: EC 16:27 → 3SCARD 19:01
PROVIDERS: ADMIT Internal Medicine; ATTEND Internal Medicine
DX: J81.1 Chronic pulmonary edema (principal); E78.5 Hyperlipidemia, unspecified; F32.9 Major depressive disorder, single episode, unspecified; I48.2 Chronic atrial fibrillation; I50.43 Acute on chronic combined systolic (congestive) and diastolic (congestive) heart failure; H70.90 Unspecified mastoiditis, unspecified ear; R19.7 Diarrhea, unspecified; I11.0 Hypertensive heart disease with heart failure; I42.9 Cardiomyopathy, unspecified; K21.9 Gastro-esophageal reflux disease without esophagitis; N40.0 Benign prostatic hyperplasia without lower urinary tract symptoms; Z87.442 Personal history of urinary calculi; Z87.891 Personal history of nicotine dependence; Z96.653 Presence of artificial knee joint, bilateral; H91.90 Unspecified hearing loss, unspecified ear; Z79.01 Long term (current) use of anticoagulants; Z79.899 Other long term (current) drug therapy; Z82.49 Family history of ischemic heart disease and other diseases of the circulatory system
CPT/HCPCS: 96376; 96374; 99285; 36415; 93005; 97161; 84439; 83880; 80053; 80048; 83605; 83735; 84443; 84484; 85025 ×2; 85610; 85730; 82272; 81003; 71046; G0378 ×3; J1940 ×2

== ENCOUNTER → 2018-08-12 | Outpatient (CLI) | payer MEDICARE ==
[2018-08-12 13:46] LABS: HCT 42.9 % (39.0-53.0); HGB 13.4 gm/dL (13.0-17.5); Hypochromasia Moderate; MCH 31.2 pg (25.0-35.0); MCHC 31.2 g/dL (31.0-37.0); MCV 99.7 fL (80.0-100.0); Mean Platelet Volume 9.2; Platelet Count 248 k/uL (150-450); RDW 13.6 % (11.5-15.5); WBC 8.6 k/uL (3.8-10.6)
[2018-08-12 21:14] LABS: African American GFR (CKD) 56.2 (60.0-200.0); Anion Gap 13.8 mmol/L (4.00-12.00); Carbon Dioxide 24.2 mmol/L (21.6-31.8)
== END | disposition home or self-care (01) ==
LOC: LABWHC1 12:36
PROVIDERS: ATTEND Internal Medicine Interventional Cardiology
DX: I48.91 Unspecified atrial fibrillation (principal); I42.9 Cardiomyopathy, unspecified
CPT/HCPCS: 36415; 80048; 85027

== ENCOUNTER → 2018-08-28 | Day surgery (SDC) | payer MEDICARE ==
[2018-08-26 16:18] VITALS: BMI 37.2
[~2018-08-28] MED LIST changes: +ACETAMINOPHEN TAB 500 MG TAB PO SCH; +ALFUZOSIN HCL 10 MG PO SCH; +ALPRAZolam 0.5 MG TAB PO PRN; +AMIODARONE 200 MG TAB PO SCH; +APIXABAN 5 MG TAB PO SCH; +BUTALB/APAP/CAFF 50-325-40MG TAB PO PRN; +CHOLECALCIFEROL 1,000 UNIT TAB PO SCH; -CLINDAMYCIN 900 MG in DEXTROSE 5% IN WATER 50 ML IVPB ONE; +FUROSEMIDE 40 MG TAB PO SCH; -GENTAMICIN 520 MG in SODIUM CHLORIDE 0.9% 100 ML IVPB ONE; -HEPARIN SODIUM,PORCINE 5,000 UNIT/ML 1 ML VIAL SQ ONE; +LIDOCAINE 1% INJ 10MG/ML (20 ML MDV) ONE; +METOPROLOL TARTRATE 50 MG TAB PO SCH; +NON-FORMULARY DRUG (Mirabegron [Myrbetriq] 25 MG) PO SCH; -ONDANSETRON 4 MG/2 ML VIAL IVP PRN; +PANTOPRAZOLE 40 MG TABLET PO SCH; +PROPOFOL 10 MG/ML 20 ML VIAL IV ONE; +SERTRALINE 100 MG TAB PO SCH; +SODIUM CHLORIDE 0.9% 1,000 ML IV SCH; +TEMAZEPAM 30 MG CAP PO SCH; +VITAMIN E (DL,TOCOPHERYL ACET) 400 UNIT CAP PO SCH
[2018-08-28 07:35] VITALS: TEMP 98
--- NOTE | 2018-08-28 07:48 | ECHOT ---
TRANSESOPHAGEAL ECHOCARDIOGRAM INDICATION: Evaluation of left atrial appendage. PROCEDURE: After explaining the procedure to the patient, its risks and the complications, his blood pressure, heart rate, O2 saturation were monitored. After obtaining sedated state per anesthesia department and spraying the throat with Cetacaine, the probe was introduced into the esophagus without difficulties. Images were obtained. Following that, the probe was removed. There was no immediate complication. FINDINGS: Left atrial size is dilated. Left atrial appendage is normal. Left ventricular size is normal. There is global hypokinesis with moderate impairment. Ejection fraction is estimated at 40%. The aortic valve appears to be normal. Mild thickening of the mitral valve leaflets was noted. The tricuspid valve is normal. Descending thoracic aorta revealed mild atherosclerotic changes. No pericardial effusion was noted. Contrast bubble study revealed no evidence of shunting across the interatrial septum. Doppler pulse wave and color Doppler obtained and revealed moderate mitral and tricuspid regurgitation. There was no shunting by color Doppler study. CONCLUSION: 1. Dilated left atrium with normal appearance of left atrial appendage. 2. Normal left ventricular size with moderate global hypokinesis. 3. Moderate mitral and tricuspid regurgitation with mild pulmonary hypertension. 4. Mild atherosclerotic changes of the descending thoracic aorta. 5. No pericardial effusion. MMODL / IJN: [id number] /
--- NOTE | 2018-08-28 07:51 | CE ---
CARDIAC ELECTROPHYSIOLOGY REPORT CARDIOVERSION PROCEDURE NOTE: INDICATION: Atrial fibrillation. PROCEDURE: After explaining the procedure to the patient as well as risks and the complications, his blood pressure, heart rate, O2 saturation was monitored. After performing transesophageal echocardiogram, a synchronized biphasic cardioversion using 200 joules was performed with mandaeism of normal sinus rhythm. There was no immediate complication. JASPAL / YARYN: [id number] /
[2018-08-28 08:24] VITALS: BP 120/61; PULSE 55; RESP 18
== END | disposition home or self-care (01) ==
LOC: CATHCVL 06:25
PROVIDERS: ATTEND Internal Medicine Interventional Cardiology
DX: I48.1 Persistent atrial fibrillation (principal); I70.0 Atherosclerosis of aorta; I08.1 Rheumatic disorders of both mitral and tricuspid valves; I27.20 Pulmonary hypertension, unspecified; I25.10 Atherosclerotic heart disease of native coronary artery without angina pectoris; I10 Essential (primary) hypertension; E78.2 Mixed hyperlipidemia; Z82.49 Family history of ischemic heart disease and other diseases of the circulatory system; Z72.0 Tobacco use; Z79.01 Long term (current) use of anticoagulants; Z79.899 Other long term (current) drug therapy; Z88.6 Allergy status to analgesic agent; Z88.0 Allergy status to penicillin; Z88.8 Allergy status to other drugs, medicaments and biological substances
CPT/HCPCS: 93312; 93320; 93325; 92960; J2001; J2704

== ENCOUNTER 2018-09-02 19:29 | Inpatient (IN) | payer MEDICARE ==
[2018-09-02] MEDS ORDERED: NITROGLYCERIN OINT 1 INCH/GM PACKET TOPICAL STA (20:16)
[2018-09-02] MEDS ORDERED: ASPIRIN 81 MG PO STA (20:17)
--- NOTE | 2018-09-02 20:21 | ED ---
SOB HPI - General Source: patient Mode of arrival: wheelchair Limitations: physical limitation <Choco Pablo - Last Filed: 09/02/18 20:41> <Erick Rogers - Last Filed: 09/02/18 23:50> - General Chief Complaint: Recheck/Abnormal Lab/Rx Stated Complaint: Hypotensive, cardiac surgery Time Seen by Provider: 09/02/18 20:08 - History of Present Illness Initial Comments: This 77-year-old white male presents with a complaint of some shortness of breath, lightheadedness, and chest tightness. He states that this came on approximately 2-3 hours prior to arrival. It occurred while he was golfing. He feels as though his bilateral lower extremities are slightly more swollen than normal as well. The chest tightness is to his bilateral anterior chest. He does have a long cardiac history. He apparently just had a cardiac ablation for atrial fibrillation last week. He also has a history of congestive heart failure but denies any previous myocardial infarction or known significant coronary artery disease. 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 He denies any fevers or chills. He does feel generalized weakness. took his blood pressure at home and the systolic was 84. (Choco Pablo) - Related Data Home Medications Medication Instructions Recorded Confirmed Sertraline HCl [Zoloft] 200 mg PO DAILY@1500 10/30/13 09/02/18 Temazepam [Restoril] 30 mg PO HS 10/30/13 09/02/18 Alfuzosin HCl [Uroxatral ER] 10 mg PO DAILY 01/14/18 09/02/18 ALPRAZolam [Xanax] 0.5 mg PO DAILY PRN 06/10/18 09/02/18 Cholecalciferol [Vitamin D3 (25 1,000 unit PO DAILY@1500 06/10/18 09/02/18 Mcg = 1000 Iu)] Mirabegron [Myrbetriq] 25 mg PO DAILY@1500 06/10/18 09/02/18 Acetaminophen Tab [Tylenol] 1,000 mg PO HS 08/08/18 09/02/18 Simvastatin [Zocor] 20 mg PO DAILY@1500 08/08/18 09/02/18 Vitamin E (Dl,Tocopheryl Acet) 400 unit PO DAILY@1500 08/08/18 09/02/18 [Vitamin E] Amiodarone [Cordarone] 200 mg PO DAILY 08/26/18 09/02/18 Furosemide [Lasix] 40 mg PO DAILY 08/26/18 09/02/18 Metoprolol Tartrate [Lopressor] 50 mg PO TID 08/26/18 09/02/18 Butalb/APAP/Caff 50-325-40Mg 1 tab PO Q4HR PRN 09/02/18 09/02/18 [Fioricet 50-325-40] Esomeprazole Magnesium [NexIUM 40 mg PO DAILY 09/02/18 09/02/18 24Hr] Previous Rx's Medication Instructions Recorded Apixaban [Eliquis] 5 mg PO BID #60 tab 06/12/18 Allergies Allergy/AdvReac Type Severity Reaction Status Date / Time hydrocodone bitartrate Allergy Anaphylaxis Verified 09/02/18 20:40 [From Vicodin] Penicillins Allergy Anaphylaxis Verified 09/02/18 20:40 propoxyphene napsylate Allergy Anaphylaxis Verified 09/02/18 20:40 [From Darvocet-N 100] tamsulosin HCl [From Flomax] Allergy Anaphylaxis Verified 09/02/18 20:40 Review of Systems ROS Other: All systems not noted in ROS Statement are negative. <Choco Pablo - Last Filed: 09/02/18 20:41> ROS Other: All systems not noted in ROS Statement are negative. <Erick Rogers - Last Filed: 09/02/18 23:50> ROS Statement: Those systems with pertinent positive or pertinent negative responses have been documented in the HPI. Past Medical History Past Medical History: Atrial Fibrillation, Heart Failure, CVA/TIA, GERD/Reflux, Hearing Disorder / Deafness, Hyperlipidemia, Hypertension, Osteoarthritis (OA), Prostate Disorder Additional Past Medical History / Comment(s): Tinnitus, Hx kidney stones, BPH, LUNG SCARRING. TOLD ON CT SCAN HX "COUPLE MINI STROKES." New dx afib. History of Any Multi-Drug Resistant Organisms: None Reported Past Surgical History: Adenoidectomy, Ear Surgery, Heart Catheterization, Joint Replacement, Tonsillectomy Additional Past Surgical History / Comment(s): Oral surgery, diana knee replacements, thyroid surgery, diana cataracts. EGD, COLONOSCOPY cadriovrsion Past Anesthesia/Blood Transfusion Reactions: No Reported Reaction Past Psychological History: Depression Smoking Status: Former smoker - Past Family History Father Family Medical History: Congestive Heart Failure (CHF), Hypertension, Myocardial Infarction ([place]) Additional Family Medical History / Comment(s): AT AGE 84-[place] Mother Family Medical History: No Reported History Additional Family Medical History / Comment(s): MOM AT GE 60 MUSCULAR DYSTOPY <Choco Pablo - Last Filed: 09/02/18 20:41> General Exam Limitations: physical limitation <Choco Pablo - Last Filed: 09/02/18 20:41> - General Exam Comments Initial Comments: GENERAL: The patient is well nourished and well hydrated. VITAL SIGNS: Heart rate, blood pressure, respiratory rate reviewed as recorded in nurse's notes. EYES: Pupils are round and reactive. Extraocular movements are intact. No conjunctival / lid redness or swelling. ENT: No external evidence of injury, swelling, or ecchymosis. Airway is patent. Throat is clear. NECK: Nontender. No swelling or evidence of injury. No subcutaneous emphysema. Trachea is midline. No thyroid mass. HEART: Regular rate and rhythm. Good peripheral pulses. No pitting edema noted to lower extremities. LUNGS/CHEST: Breath sounds clear and equal bilaterally. No rales, rhonchi, or wheezes. No ecchymosis, subcutaneous emphysema, or tenderness. ABDOMEN: Abdomen soft without tenderness. No palpable masses or organomegaly. No peritoneal signs. No abdominal wall swelling or ecchymosis. EXTREMITIES: No extremity tenderness. Normal muscle tone and function. No thoracolumbar tenderness. NEUROLOGIC: Sensation is grossly intact. Cranial nerve exam reveals face is symmetrical, tongue is midline, speech is clear. SKIN: No abrasions or ecchymosis is noted. No induration or masses noted. PSYCHIATRIC: Alert and oriented. Appropriate behavior and judgment. (Choco Pablo) Course <DenzelivetteErick - Last Filed: 09/02/18 23:50> Vital Signs 09/02/18 09/02/18 09/02/18 19:58 20:56 21:35 Temperature 98.1 F Pulse Rate 59 L 107 H 83 Respiratory 18 18 18 Rate Blood Pressure 99/64 131/116 93/56 O2 Sat by Pulse 94 L 95 95 Oximetry 09/02/18 22:30 Temperature Pulse Rate 98 Respiratory 18 Rate Blood Pressure 107/76 O2 Sat by Pulse 96 Oximetry - Reevaluation(s) Reevaluation #1: 09/02/18 23:50 The patient's d-dimer is at the borderline, overusing age adjusted criteria within limits. No high clinical suspicion of DVT/PE at this time. (Nidia Rogers) Medical Decision Making <Choco Pablo - Last Filed: 09/02/18 20:41> - Lab Data Result diagrams: 09/02/18 20:47 09/02/18 20:47 <Erick Rogers - Last Filed: 09/02/18 23:50> - Medical Decision Making The patient was seen and examined. All diagnostics were reviewed. An IV is established and was placed on a phototypesetting equipment monitor. The EKG shows evidence of atrial fibrillation at a rate of 98. There is suspicion for previous inferior infarction. There is no acute ST elevation. There is some nonspecific ST-T wave changes primarily in the inferolateral leads. The QRS duration is 112 and the QTC intervals 420. (Choco Pablo) I receive this patient has a sign out, pending some of his remaining lab tests. Dr. Pablo had wanted the patient admitted for his A. fib with RVR. His rate currently is stable. Patient be admitted to have cardiology consultation. Case discussed with Dr. Beltran. (Erick Rogers) - Lab Data Lab Results 09/02/18 09/02/18 09/02/18 Range/Units 20:47 20:47 20:47 WBC 5.3 (3.8-10.6) k/uL RBC 4.74 (4.30-5.90) m/uL Hgb 14.2 (13.0-17.5) gm/dL Hct 45.2 (39.0-53.0) % MCV 95.3 (80.0-100.0) fL MCH 29.9 (25.0-35.0) pg MCHC 31.4 (31.0-37.0) g/dL RDW 15.2 (11.5-15.5) % Plt Count 90 L D (150-450) k/uL Neutrophils % 65 % Lymphocytes % 25 % Monocytes % 6 % Eosinophils % 2 % Basophils % 0 % Neutrophils # 3.5 (1.3-7.7) k/uL Lymphocytes # 1.3 (1.0-4.8) k/uL Monocytes # 0.3 (0-1.0) k/uL Eosinophils # 0.1 (0-0.7) k/uL Basophils # 0.0 (0-0.2) k/uL Manual Slide Review Performed Large Platelets Present PT 11.1 (9.0-12.0) sec INR 1.1 (<1.2) APTT 21.2 L (22.0-30.0) sec D-Dimer 0.60 H (<0.60) mg/L FEU Sodium 141 (137-145) mmol/L Potassium 4.0 (3.5-5.1) mmol/L Chloride 106 (98-107) mmol/L Carbon Dioxide 25 (22-30) mmol/L Anion Gap 10 mmol/L BUN 28 H (9-20) mg/dL Creatinine 1.09 (0.66-1.25) mg/dL Est GFR (CKD-EPI)AfAm 76 (>60 ml/min/1.73 sqM) Est GFR (CKD-EPI)NonAf 66 (>60 ml/min/1.73 sqM) Glucose 94 (74-99) mg/dL Calcium 9.3 (8.4-10.2) mg/dL Total Bilirubin 1.1 (0.2-1.3) mg/dL AST 30 (17-59) U/L ALT 28 (21-72) U/L Alkaline Phosphatase 81 (38-126) U/L Troponin I (0.000-0.034) ng/mL NT-Pro-B Natriuret Pep pg/mL Total Protein 6.6 (6.3-8.2) g/dL Albumin 4.3 (3.5-5.0) g/dL 09/02/18 09/02/18 Range/Units 20:47 20:47 WBC (3.8-10.6) k/uL RBC (4.30-5.90) m/uL Hgb (13.0-17.5) gm/dL Hct (39.0-53.0) % MCV (80.0-100.0) fL MCH (25.0-35.0) pg MCHC (31.0-37.0) g/dL RDW (11.5-15.5) % Plt Count (150-450) k/uL Neutrophils % % Lymphocytes % % Monocytes % % Eosinophils % % Basophils % % Neutrophils # (1.3-7.7) k/uL Lymphocytes # (1.0-4.8) k/uL Monocytes # (0-1.0) k/uL Eosinophils # (0-0.7) k/uL Basophils # (0-0.2) k/uL Manual Slide Review Large Platelets PT (9.0-12.0) sec INR (<1.2) APTT (22.0-30.0) sec D-Dimer (<0.60) mg/L FEU Sodium (137-145) mmol/L Potassium (3.5-5.1) mmol/L Chloride (98-107) mmol/L Carbon Dioxide (22-30) mmol/L Anion Gap mmol/L BUN (9-20) mg/dL Creatinine (0.66-1.25) mg/dL Est GFR (CKD-EPI)AfAm (>60 ml/min/1.73 sqM) Est GFR (CKD-EPI)NonAf (>60 ml/min/1.73 sqM) Glucose (74-99) mg/dL Calcium (8.4-10.2) mg/dL Total Bilirubin (0.2-1.3) mg/dL AST (17-59) U/L ALT (21-72) U/L Alkaline Phosphatase (38-126) U/L Troponin I <0.012 (0.000-0.034) ng/mL NT-Pro-B Natriuret Pep 2960 pg/mL Total Protein (6.3-8.2) g/dL Albumin (3.5-5.0) g/dL Disposition <Choco Pablo - Last Filed: 09/02/18 20:41> <Erick Rogers - Last Filed: 09/02/18 23:50> Clinical Impression: Dyspnea, Chest pain, Fatigue, History of cardiac radiofrequency ablation, Atrial fibrillation Disposition: ADMITTED IP TO THIS HOSP Condition: Fair Referrals: Juan C Beltran MD [Primary Care Provider] - 1-2 days
[2018-09-02 21:07] LABS: Basophils % (A) 0 %; Eosinophils # (A) 0.1 k/uL (0-0.7); Eosinophils % (A) 2 %; HCT 45.2 % (39.0-53.0); HGB 14.2 gm/dL (13.0-17.5); Lymphocytes # (A) 1.3 k/uL (1.0-4.8); Lymphocytes % (A) 25 %; MCH 29.9 pg (25.0-35.0); MCHC 31.4 g/dL (31.0-37.0); MCV 95.3 fL (80.0-100.0); Mean Platelet Volume 9.4; Monocytes # (A) 0.3 k/uL (0-1.0); Monocytes % (A) 6 %; Neutrophils # (A) 3.5 k/uL (1.3-7.7); Neutrophils % (A) 65 %; RBC 4.74 m/uL (4.30-5.90); RDW 15.2 % (11.5-15.5); WBC 5.3 k/uL (3.8-10.6)
[2018-09-02 21:11] LABS: Albumin 4.3 g/dL (3.5-5.0); Calcium 9.3 mg/dL (8.4-10.2); Total Bilirubin 1.1 mg/dL (0.2-1.3); Total Protein 6.6 g/dL (6.3-8.2)
[2018-09-02 21:24] LABS: INR 1.1 (<1.2)
[2018-09-02 21:25] LABS: Prothrombin Time 11.1 sec (9.0-12.0)
--- NOTE | 2018-09-02 21:32 | XR ---
EXAMINATION: XR chest 2V DATE AND TIME: 09/02/2018 9:12 PM CLINICAL INDICATION: PHH; difficulty breathing TECHNIQUE: Departmental protocol COMPARISON: 08/08/2018 FINDINGS: The lungs are clear. The pleural spaces are much improved with only a scant pleural effusion evident, unilaterally, and on ly seen posteriorly on the lateral view The cardiac silhouette is mildly enlarged. The skeletal structures and soft tissues are negative for acute findings. IMPRESSION: No acute pulmonary radiographic process.
[2018-09-02 21:41] LABS: Large Platelets Present; Platelet Count 90 k/uL (150-450)
[2018-09-02 21:48] LABS: D-Dimer 0.6 mg/L FEU (<0.60); Partial Thromboplastin Time 21.2 sec (22.0-30.0)
[2018-09-02] MEDS ORDERED: NITROGLYCERIN SL TABS 0.4 MG TAB SUBLINGUAL PRN (23:45)
[2018-09-03] MEDS: SODIUM CHLORIDE 0.9% 1,000 ML IV SCH ×2 (00:59→20:55)
[2018-09-03 03:06] LABS: Cholesterol 139 mg/dL (<200); HDL Cholesterol 46 mg/dL (40-60); LDL Cholesterol,Calculated 79 mg/dL (0-99); Triglycerides 72 mg/dL (<150)
[2018-09-03] MEDS ORDERED: BUTALB/APAP/CAFF 50-325-40MG TAB PO PRN (08:40)
[2018-09-03] MEDS ORDERED: METOPROLOL TARTRATE 50 MG TAB PO SCH (09:00)
[2018-09-03 09:17] LABS: Basophils % (A) 0 %; Eosinophils # (A) 0.1 k/uL (0-0.7); Eosinophils % (A) 3 %; HCT 42.5 % (39.0-53.0); HGB 13.7 gm/dL (13.0-17.5); Hypochromasia Slight; Lymphocytes # (A) 0.8 k/uL (1.0-4.8); Lymphocytes % (A) 22 %; MCH 31.1 pg (25.0-35.0); MCHC 32.2 g/dL (31.0-37.0); MCV 96.5 fL (80.0-100.0); Mean Platelet Volume 9.6; Monocytes # (A) 0.2 k/uL (0-1.0); Monocytes % (A) 6 %; Neutrophils # (A) 2.6 k/uL (1.3-7.7); Neutrophils % (A) 68 %; RBC 4.41 m/uL (4.30-5.90); RDW 15.1 % (11.5-15.5); WBC 3.8 k/uL (3.8-10.6)
[2018-09-03 09:29] LABS: Calcium 8.7 mg/dL (8.4-10.2); Potassium 3.7 mmol/L (3.5-5.1)
[2018-09-03 09:46] LABS: Platelet Count 67 k/uL (150-450)
--- NOTE | 2018-09-03 10:15 | P.CRDCN ---
History of Present Illness Consult date: 09/03/18 Requesting physician: Juan C Beltran Consult reason: atrial fibrillation Chief complaint: Dizziness, lightheadedness History of present illness: This is a pleasant 77-year-old gentleman who follows with Dr. Alvares in the office. He has a known history of hyperlipidemia, nicotine dependence, hypertension, mild coronary artery disease by cardiac catheterization performed in 2013, paroxysmal atrial fibrillation for which the patient recently underwent a GENARO with subsequent cardioversion. He presents to the hospital on this occasion with symptoms of lightheadedness and near syncope. According to the patient, he had been out on the golf course in the morning, he states that he played about 7 holes but became extremely tired. He went home and mentioned to his that he was mildly dizzy and just did not feel right, he stood up to go next to her to have his blood pressure checked, after he stood up he states that everything went white, he was lightheaded and felt as though he may pass out. He immediately sat down, his checked his blood pressure at that time which was noted to be significantly low. Patient does state that he drank a bottle of water and a bottle of 7 and upon return home. They made a call to the cardiology office and were directed to come to the emergency room for further evaluation. His EKG on arrival here showed atrial fibrillation. This morning he continues to be in atrial fibrillation with a heart rate of 110. Chest x-ray was performed which revealed no acute process. Blood pressure 116/60, 97% on room air. White blood cell count 3.8, hemoglobin 13.7, platelet count 90 on admission, 67 this morning, d-dimer 0.6. Sodium 142, potassium 3.7, BUN 24 and creatinine 0.9. Troponins negative 3, BNP level 2960. Past Medical History Past Medical History: Atrial Fibrillation, Heart Failure, CVA/TIA, GERD/Reflux, Hearing Disorder / Deafness, Hyperlipidemia, Hypertension, Osteoarthritis (OA), Prostate Disorder Additional Past Medical History / Comment(s): Tinnitus, Hx kidney stones, BPH, LUNG SCARRING. TOLD ON CT SCAN HX "COUPLE MINI STROKES." History of Any Multi-Drug Resistant Organisms: None Reported Past Surgical History: Adenoidectomy, Ear Surgery, Heart Catheterization, Joint Replacement, Tonsillectomy Additional Past Surgical History / Comment(s): Oral surgery, diana knee replaceme nts, thyroid surgery, diana cataracts. EGD, COLONOSCOPY cardioversion Past Anesthesia/Blood Transfusion Reactions: No Reported Reaction Smoking Status: Former smoker - Past Family History Father Family Medical History: Congestive Heart Failure (CHF), Hypertension, Myocardial Infarction ([place]) Additional Family Medical History / Comment(s): AT AGE 84-[place] Mother Family Medical History: No Reported History Additional Family Medical History / Comment(s): MOM AT AGE 60 MUSCULAR DYSTOPY Medications and Allergies Home Medications Medication Instructions Recorded Confirmed Type Sertraline HCl [Zoloft] 200 mg PO DAILY@1500 10/30/13 09/02/18 History Temazepam [Restoril] 30 mg PO HS 10/30/13 09/02/18 History Alfuzosin HCl [Uroxatral ER] 10 mg PO DAILY 01/14/18 09/02/18 History ALPRAZolam [Xanax] 0.5 mg PO DAILY PRN 06/10/18 09/02/18 History Cholecalciferol [Vitamin D3 (25 1,000 unit PO DAILY@1500 06/10/18 09/02/18 History Mcg = 1000 Iu)] Mirabegron [Myrbetriq] 25 mg PO DAILY@1500 06/10/18 09/02/18 History Apixaban [Eliquis] 5 mg PO BID #60 tab 06/12/18 09/02/18 Rx Acetaminophen Tab [Tylenol] 1,000 mg PO HS 08/08/18 09/02/18 History Simvastatin [Zocor] 20 mg PO DAILY@1500 08/08/18 09/02/18 History Vitamin E (Dl,Tocopheryl Acet) 400 unit PO DAILY@1500 08/08/18 09/02/18 History [Vitamin E] Amiodarone [Cordarone] 200 mg PO DAILY 08/26/18 09/02/18 History Furosemide [Lasix] 40 mg PO DAILY 08/26/18 09/02/18 History Metoprolol Tartrate [Lopressor] 50 mg PO TID 08/26/18 09/02/18 History Butalb/APAP/Caff 50-325-40Mg 1 tab PO Q4HR PRN 09/02/18 09/02/18 History [Fioricet 50-325-40] Esomeprazole Magnesium [NexIUM 40 mg PO DAILY 09/02/18 09/02/18 History 24Hr] Allergies Allergy/AdvReac Type Severity Reaction Status Date / Time hydrocodone bitartrate Allergy Anaphylaxis Verified 09/02/18 20:40 [From Vicodin] Penicillins Allergy Anaphylaxis Verified 09/02/18 20:40 propoxyphene napsylate Allergy Anaphylaxis Verified 09/02/18 20:40 [From Darvocet-N 100] tamsulosin HCl [From Flomax] Allergy Anaphylaxis Verified 09/02/18 20:40 Physical Exam Vitals: Vital Signs Temp Pulse Pulse Resp BP BP Pulse Ox 09/03/18 04:00 85 17 116/60 97 09/03/18 03:36 96 17 09/03/18 01:29 97 09/03/18 01:25 98.6 F 96 17 101/53 96 09/03/18 00:30 89 19 101/76 94 L 09/02/18 23:30 109 H 18 107/71 96 09/02/18 22:30 98 18 107/76 96 09/02/18 21:35 83 18 93/56 95 09/02/18 20:56 107 H 18 131/116 95 09/02/18 19:58 98.1 F 59 L 18 99/64 94 L Intake and Output 09/02/18 09/03/18 09/03/18 22:59 06:59 14:59 Intake Total 200 Output Total 300 200 Balance -100 -200 Intake: Oral 200 Output: Urine 300 200 Other: # Voids 1 Weight 133.81 kg 134 kg PHYSICAL EXAMINATION: GENERAL: 77-year-old gentleman in no acute distress at the time of my examination HEENT: Head is atraumatic, normocephalic. Pupils equal, round. Sclera anicteric. Conjunctiva are clear. Mucous membranes of the mouth are moist. Neck is supple. There is no elevated jugular venous pressure.] bruit is heard. HEART EXAMINATION: Heart S1 and S2 irregularly irregular CHEST EXAMINATION: Lungs are clear with diminished air entry to the bases . ABDOMEN: Soft, nontender. Bowel sounds are heard. No organomegaly noted. EXTREMITIES: 2+ peripheral pulses with no evidence of peripheral edema and no calf tenderness noted. NEUROLOGIC patient is awake, alert and oriented 3 . . Results 09/03/18 08:43 09/03/18 08:43 Cardiac Enzymes 09/02/18 09/02/18 09/03/18 Range/Units 20:47 20:47 02:36 AST 30 (17-59) U/L Troponin I <0.012 <0.012 (0.000-0.034) ng/mL 09/03/18 Range/Units 08:43 AST (17-59) U/L Troponin I <0.012 (0.000-0.034) ng/mL Coagulation 09/02/18 Range/Units 20:47 PT 11.1 (9.0-12.0) sec APTT 21.2 L (22.0-30.0) sec Lipids 09/03/18 Range/Units 02:36 Triglycerides 72 (<150) mg/dL Cholesterol 139 (<200) mg/dL HDL Cholesterol 46 (40-60) mg/dL CBC 09/02/18 09/03/18 Range/Units 20:47 08:43 WBC 5.3 3.8 (3.8-10.6) k/uL RBC 4.74 4.41 (4.30-5.90) m/uL Hgb 14.2 13.7 (13.0-17.5) gm/dL Hct 45.2 42.5 (39.0-53.0) % Plt Count 90 L D 67 L (150-450) k/uL Comprehensive Metabolic Panel 09/02/18 09/03/18 Range/Units 20:47 08:43 Sodium 141 142 (137-145) mmol/L Potassium 4.0 3.7 (3.5-5.1) mmol/L Chloride 106 107 (98-107) mmol/L Carbon Dioxide 25 26 (22-30) mmol/L BUN 28 H 24 H (9-20) mg/dL Creatinine 1.09 0.96 (0.66-1.25) mg/dL Glucose 94 87 (74-99) mg/dL Calcium 9.3 8.7 (8.4-10.2) mg/dL AST 30 (17-59) U/L ALT 28 (21-72) U/L Alkaline Phosphatase 81 (38-126) U/L Total Protein 6.6 (6.3-8.2) g/dL Albumin 4.3 (3.5-5.0) g/dL Current Medications Generic Name Dose Route Start Last Admin Trade Name Freq PRN Reason Stop Dose Admin Acetaminophen/Butalbital/Caffeine 1 each 09/03/18 08:40 Fioricet 50-325-40 PO Q4HR PRN Headache Amiodarone HCl 200 mg 09/03/18 09:00 Cordarone PO DAILY [facility] Apixaban 5 mg 09/03/18 09:00 Eliquis PO BID [facility] Atorvastatin Calcium 10 mg 09/03/18 15:00 Lipitor PO DAILY@1500 [facility] Cholecalciferol 1,000 unit 09/03/18 15:00 Vitamin D3 (25 Mcg = 1000 Iu) PO DAILY@1500 [facility] Furosemide 40 mg 09/03/18 09:00 Lasix PO DAILY [facility] Sodium Chloride 1,000 mls @ 20 mls/hr 09/02/18 23:45 09/03/18 00:59 Saline 0.9% IV 20 mls/hr .Q24H [facility] Administration Metoprolol Tartrate 50 mg 09/03/18 09:00 Lopressor PO TID [facility] Nitroglycerin 0.4 mg 09/02/18 23:45 Nitrostat SUBLINGUAL Q5M PRN Chest Pain Alfuzosin Hcl [ 10 mg 09/03/18 09:00 Uroxatral Er] PO DAILY [facility] Mirabegron [ 25 mg 09/03/18 15:00 Myrbetriq] PO DAILY@1500 [facility] Pantoprazole Sodium 40 mg 09/03/18 09:00 Protonix PO AC-BRKFST [facility] Sertraline HCl 200 mg 09/03/18 15:00 Zoloft PO DAILY@1500 [facility] Temazepam 30 mg 09/03/18 21:00 Restoril PO HS PRN Insomnia Intake and Output 09/02/18 09/03/18 09/03/18 22:59 06:59 14:59 Intake Total 200 Output Total 300 200 Balance -100 -200 Intake: Oral 200 Output: Urine 300 200 Other: # Voids 1 Weight 133.81 kg 134 kg 09/03/18 08:43 09/03/18 08:43 EKG Interpretations (text) EKG shows atrial fibrillation with moderately rapid ventricular response Assessment and Plan Plan: Assessment and plan #1 atrial fibrillation, paroxysmal, patient recently underwent GENARO with subsequent cardioversion #2 hypertension #3 GERD #4 nicotine dependence #5 hyperlipidemia #6 mild coronary artery disease by cardiac catheterization performed in 2013 Plan We will obtain an echocardiogram with Doppler study. Patient continues to be on amiodarone, Eliquis, Lipitor, by mouth Lasix, metoprolol 50 mg 3 times a day. We will check a TSH level. According to the patient, he has been on antiarrhythmics, so undergone cardioversion, he states that Dr. Alvares mentioned to him that if he goes back into atrial fibrillation that he may require an ablation. Further recommendations to follow. DNP note has been reviewed, I agree with a documented findings and plan of care. Patient was seen and examined.
--- NOTE | 2018-09-03 11:57 | P.HPIM ---
History of Present Illness H&P Date: 09/03/18 This is a 77-year-old male patient who presented with complaints of feeling lightheaded and short of breath patient reports his symptoms felt similar to previous episodes he had one his heart rate went into A. fib with RVR. Patient reports that he was out golfing symptoms started. Patient follows with Dr. Alvares in the office. Patient recently underwent GENARO and cardioversion. Patient has past medical history of atrial fibrillation, heart failure, CVA, GERD, hearing disorder, hyperlipidemia, hypertension, osteoporosis, prostate disorder and previous heart cath. Chest x-ray completed in ER showing no acute pulmonary or radiographic process. EKG completed showing atrial flutter with variable AV block premature ventricular aberrantly conducted complexes. Troponins negative 3. Patient maintained on eliquis for anticoagulation. Cardiology services have been consulted. At this time patient denies any chest pain or shortness of breath. Patient denies nausea vomiting or diarrhea. P atient denies any urinary frequency Review of Systems Please refer to HPI otherwise unremarkable Past Medical History Past Medical History: Atrial Fibrillation, Heart Failure, CVA/TIA, GERD/Reflux, Hearing Disorder / Deafness, Hyperlipidemia, Hypertension, Osteoarthritis (OA), Prostate Disorder Additional Past Medical History / Comment(s): Tinnitus, Hx kidney stones, BPH, LUNG SCARRING. TOLD ON CT SCAN HX "COUPLE MINI STROKES." History of Any Multi-Drug Resistant Organisms: None Reported Past Surgical History: Adenoidectomy, Ear Surgery, Heart Catheterization, Joint Replacement, Tonsillectomy Additional Past Surgical History / Comment(s): Oral surgery, diana knee replacements, thyroid surgery, diana cataracts. EGD, COLONOSCOPY cardioversion Past Anesthesia/Blood Transfusion Reactions: No Reported Reaction Smoking Status: Former smoker - Past Family History Father Family Medical History: Congestive Heart Failure (CHF), Hypertension, Myocardial Infarction ([place]) Additional Family Medical History / Comment(s): AT AGE 84-[place] Mother Family Medical History: No Reported History Additional Family Medical History / Comment(s): MOM AT AGE 60 MUSCULAR DYSTOPY Medications and Allergies Home Medications Medication Instructions Recorded Confirmed Type Sertraline HCl [Zoloft] 200 mg PO DAILY@1500 10/30/13 09/02/18 History Temazepam [Restoril] 30 mg PO HS 10/30/13 09/02/18 History Alfuzosin HCl [Uroxatral ER] 10 mg PO DAILY 01/14/18 09/02/18 History ALPRAZolam [Xanax] 0.5 mg PO DAILY PRN 06/10/18 09/02/18 History Cholecalciferol [Vitamin D3 (25 1,000 unit PO DAILY@1500 06/10/18 09/02/18 History Mcg = 1000 Iu)] Mirabegron [Myrbetriq] 25 mg PO DAILY@1500 06/10/18 09/02/18 History Apixaban [Eliquis] 5 mg PO BID #60 tab 06/12/18 09/02/18 Rx Acetaminophen Tab [Tylenol] 1,000 mg PO HS 08/08/18 09/02/18 History Simvastatin [Zocor] 20 mg PO DAILY@1500 08/08/18 09/02/18 History Vitamin E (Dl,Tocopheryl Acet) 400 unit PO DAILY@1500 08/08/18 09/02/18 History [Vitamin E] Amiodarone [Cordarone] 200 mg PO DAILY 08/26/18 09/02/18 History Furosemide [Lasix] 40 mg PO DAILY 08/26/18 09/02/18 History Metoprolol Tartrate [Lopressor] 50 mg PO TID 08/26/18 09/02/18 History Butalb/APAP/Caff 50-325-40Mg 1 tab PO Q4HR PRN 09/02/18 09/02/18 History [Fioricet 50-325-40] Esomeprazole Magnesium [NexIUM 40 mg PO DAILY 09/02/18 09/02/18 History 24Hr] Allergies Allergy/AdvReac Type Severity Reaction Status Date / Time hydrocodone bitartrate Allergy Anaphylaxis Verified 09/02/18 20:40 [From Vicodin] Penicillins Allergy Anaphylaxis Verified 09/02/18 20:40 propoxyphene napsylate Allergy Anaphylaxis Verified 09/02/18 20:40 [From Darvocet-N 100] tamsulosin HCl [From Flomax] Allergy Anaphylaxis Verified 09/02/18 20:40 Physical Exam Vitals: Vital Signs Temp Pulse Pulse Resp BP BP Pulse Ox 09/03/18 11:38 104 H 09/03/18 08:00 97.5 F L 115 H 17 114/61 91 L 09/03/18 04:00 85 17 116/60 97 09/03/18 03:36 96 17 09/03/18 01:29 97 09/03/18 01:25 98.6 F 96 17 101/53 96 09/03/18 00:30 89 19 101/76 94 L 09/02/18 23:30 109 H 18 107/71 96 09/02/18 22:30 98 18 107/76 96 09/02/18 21:35 83 18 93/56 95 09/02/18 20:56 107 H 18 131/116 95 09/02/18 19:58 98.1 F 59 L 18 99/64 94 L Intake and Output 09/02/18 09/03/18 09/03/18 22:59 06:59 14:59 Intake Total 200 Output Total 300 200 Balance -100 -200 Intake: Oral 200 Output: Urine 300 200 Other: # Voids 1 Weight 133.81 kg 134 kg Head normocephalic Neck supple Lungs clear to auscultation bilaterally no wheezing or crackles Heart irregular heart rate Abdomen is soft nontender nondistended positive bowel sounds no hepatosplenomegaly Extremities no edema Neuro alert and orientated to 3 Results CBC & Chem 7: 09/03/18 08:43 09/03/18 08:43 Labs: Abnormal Lab Results - Last 24 Hours (Table) 09/02/18 09/02/18 09/02/18 Range/Units 20:47 20:47 20:47 Plt Count 90 L D (150-450) k/uL Lymphocytes # (1.0-4.8) k/uL APTT 21.2 L (22.0-30.0) sec D-Dimer 0.60 H (<0.60) mg/L FEU BUN 28 H (9-20) mg/dL 09/03/18 09/03/18 Range/Units 08:43 08:43 Plt Count 67 L (150-450) k/uL Lymphocytes # 0.8 L (1.0-4.8) k/uL APTT (22.0-30.0) sec D-Dimer (<0.60) mg/L FEU BUN 24 H (9-20) mg/dL Thrombosis Risk Factor Assmnt - Choose All That Apply Any of the Below Risk Factors Present?: No Each Risk Factor Represents 3 Points: Age 75 years or older Thrombosis Risk Factor Assessment Total Risk Factor Score: 3 Thrombosis Risk Factor Assessment Level: Moderate Risk Assessment and Plan Assessment: 1. Chest pain. Troponins negative 3. Chest x-ray completed showing no acute pulmonary or radiographic process. Cardiology service have been consulted. 2. Paroxysmal atrial fibrillation. EKG completed showing atrial flutter with variable AV block and premature ventricular aberrantly conducted complexes. Patient recently underwent GENARO and cardioversion. Cardiology services have been consulted 3. Thrombocytopenia. Platelets are low at 67. Hematology services have been c onsulted 4. History of essential hypertension 5. History of GERD 6. History of hyperlipidemia 7. History of previous cardiac catheterization 8. Chronic systolic congestive heart failure. Patient obtain on Lasix. DVT prophylaxis eliquis. GI prophylaxis Protonix Time with Patient: Greater than 30 (Greater than 60% of the total time spent in counseling and coordination of care. I performed an examination of the patient and discussed their management with the Nurse Practitioner. I have reviewed the Nurse Practitioner's notes and agree with the documented findings and plan of care)
[2018-09-03 12:17] LABS: Mean Platelet Volume 10.8; Platelet Count 64 k/uL (150-450)
[2018-09-03] MEDS ORDERED: ONDANSETRON 4 MG/2 ML VIAL IVP PRN (13:03)
[2018-09-03] MEDS: FUROSEMIDE 40 MG TAB PO SCH (13:09)
[2018-09-03] MEDS: AMIODARONE 200 MG TAB PO SCH (13:09)
[2018-09-03] MEDS: APIXABAN 5 MG TAB PO SCH ×2 (13:09→20:55)
[2018-09-03] MEDS: METOPROLOL TARTRATE 25 MG TAB PO SCH ×3 (13:10→20:55)
--- NOTE | 2018-09-03 14:43 | P.CONS ---
History of Present Illness - Reason for Consult Consult date: 09/03/18 thrombocytopenia Requesting physician: Mary Self - Chief Complaint syncopy - History of Present Illness Mr. Vora is a very pleasant male who we have been asked to see for thrombocytopenia, plt count 67,000 today. Chart review shows very mild thrombocytopenia over the last year. He has a PMH significant for cardiac disease, a-fib requiring anticoagulation, he is s/p cardioversion last week. He became dizzy while golfing, chest pain, SOB, his symptoms persisted, he may have briefly lost consciousness, nothing reported by suggestive of seizure activity, pt has never been told he had low platelets, no epistaxis, hematuria, hematochezia or melena, unusual bruising, petechiae. He had colonoscopy, EGD and prostate exams, he has unintentionally lost 60lbs in the last year, 35# of that in the last 4 months, c/o early satiety, no bloating, nausea, vomiting, new or unusual pain, chills, mild fatigue, mild lower extremity swelling today. Review of Systems 14 point ROS is negative except as stated in HPI Past Medical History Past Medical History: Atrial Fibrillation, Heart Failure, CVA/TIA, GERD/Reflux, Hearing Disorder / Deafness, Hyperlipidemia, Hypertension, Osteoarthritis (OA), Prostate Disorder Additional Past Medical History / Comment(s): Tinnitus, Hx kidney stones, BPH, LUNG SCARRING. TOLD ON CT SCAN HX "COUPLE MINI STROKES." History of Any Multi-Drug Resistant Organisms: None Reported Past Surgical History: Adenoidectomy, Ear Surgery, Heart Catheterization, Joint Replacement, Tonsillectomy Additional Past Surgical History / Comment(s): Oral surgery, diana knee replacements, thyroid surgery, diana cataracts. EGD, COLONOSCOPY cardioversion Past Anesthesia/Blood Transfusion Reactions: No Reported Reaction Past Psychological History: No Psychological Hx Reported Smoking Status: Former smoker Past Alcohol Use History: None Reported Past Drug Use History: None Reported - Past Family History Father Family Medical History: Congestive Heart Failure (CHF), Hypertension, Myocardial Infarction ([place]) Additional Family Medical History / Comment(s): AT AGE 84-[place] Mother Family Medical History: No Reported History Additional Family Medical History / Comment(s): MOM AT AGE 60 MUSCULAR D YSTOPY Medications and Allergies Home Medications Medication Instructions Recorded Confirmed Type Sertraline HCl [Zoloft] 200 mg PO DAILY@1500 10/30/13 09/02/18 History Temazepam [Restoril] 30 mg PO HS 10/30/13 09/02/18 History Alfuzosin HCl [Uroxatral ER] 10 mg PO DAILY 01/14/18 09/02/18 History ALPRAZolam [Xanax] 0.5 mg PO DAILY PRN 06/10/18 09/02/18 History Cholecalciferol [Vitamin D3 (25 1,000 unit PO DAILY@1500 06/10/18 09/02/18 His tory Mcg = 1000 Iu)] Mirabegron [Myrbetriq] 25 mg PO DAILY@1500 06/10/18 09/02/18 History Apixaban [Eliquis] 5 mg PO BID #60 tab 06/12/18 09/02/18 Rx Acetaminophen Tab [Tylenol] 1,000 mg PO HS 08/08/18 09/02/18 History Simvastatin [Zocor] 20 mg PO DAILY@1500 08/08/18 09/02/18 History Vitamin E (Dl,Tocopheryl Acet) 400 unit PO DAILY@1500 08/08/18 09/02/18 History [Vitamin E] Amiodarone [Cordarone] 200 mg PO DAILY 08/26/18 09/02/18 History Furosemide [Lasix] 40 mg PO DAILY 08/26/18 09/02/18 History Metoprolol Tartrate [Lopressor] 50 mg PO TID 08/26/18 09/02/18 History Butalb/APAP/Caff 50-325-40Mg 1 tab PO Q4HR PRN 09/02/18 09/02/18 History [Fioricet 50-325-40] Esomeprazole Magnesium [NexIUM 40 mg PO DAILY 09/02/18 09/02/18 History 24Hr] Allergies Allergy/AdvReac Type Severity Reaction Status Date / Time hydrocodone bitartrate Allergy Anaphylaxis Verified 09/02/18 20:40 [From Vicodin] Penicillins Allergy Anaphylaxis Verified 09/02/18 20:40 propoxyphene napsylate Allergy Anaphylaxis Verified 09/02/18 20:40 [From Darvocet-N 100] tamsulosin HCl [From Flomax] Allergy Anaphylaxis Verified 09/02/18 20:40 Physical Exam Vitals: Vital Signs Temp Pulse Pulse Resp BP BP Pulse Ox 09/03/18 11:38 104 H 09/03/18 08:00 97.5 F L 115 H 17 114/61 91 L 09/03/18 04:00 85 17 116/60 97 09/03/18 03:36 96 17 09/03/18 01:29 97 09/03/18 01:25 98.6 F 96 17 101/53 96 09/03/18 00:30 89 19 101/76 94 L 09/02/18 23:30 109 H 18 107/71 96 09/02/18 22:30 98 18 107/76 96 09/02/18 21:35 83 18 93/56 95 09/02/18 20:56 107 H 18 131/116 95 09/02/18 19:58 98.1 F 59 L 18 99/64 94 L Intake and Output 09/02/18 09/03/18 09/03/18 22:59 06:59 14:59 Intake Total 200 240 Output Total 300 200 Balance -100 40 Intake: Oral 200 240 Output: Urine 300 200 Other: # Voids 1 Weight 133.81 kg 134 kg - Constitutional General appearance: cooperative, morbidly obese, no acute distress - EENT Eyes: anicteric sclerae, EOMI, normal appearance ENT: hearing grossly normal, normal oropharynx - Neck Neck: no lymphadenopathy - Respiratory Respiratory: bilateral: CTA - Cardiovascular Rhythm: irregularly irregular Heart sounds: normal: S1, S2 Abnormal Heart Sounds: no systolic murmur, no diastolic murmur, no rub, no S3 G allop, no S4 Gallop, no click, no other leg Peripheral Edema: bilateral: Trace, Pitting - Gastrointestinal General gastrointestinal: no absent bowel sounds, no decreased bowel sounds, no distended, no hepatomegaly, no hyperactive bowel sounds, normal bowel sounds, no organomegaly, no rigid, no scaphoid, soft, splenomegaly, no tenderness, no umbilical hernia, no ventral hernia - Integumentary Integumentary: normal - Neurologic Neurologic: CNII-XII intact - Musculoskeletal Musculoskeletal: strength equal bilaterally - Psychiatric Psychiatric: A&O x's 3, appropriate affect, intact judgment & insight Results CBC & Chem 7: 09/03/18 08:43 09/03/18 08:43 Labs: Abnormal Lab Results - Last 24 Hours (Table) 09/02/18 09/02/18 09/02/18 Range/Units 20:47 20:47 20:47 Plt Count 90 L D (150-450) k/uL Lymphocytes # (1.0-4.8) k/uL APTT 21.2 L (22.0-30.0) sec D-Dimer 0.60 H (<0.60) mg/L FEU BUN 28 H (9-20) mg/dL 09/03/18 09/03/18 09/03/18 Range/Units 08:43 08:43 08:43 Plt Count 67 L 64 L (150-450) k/uL Lymphocytes # 0.8 L (1.0-4.8) k/uL APTT (22.0-30.0) sec D-Dimer (<0.60) mg/L FEU BUN 24 H (9-20) mg/dL Assessment and Plan (1) Thrombocytopenia Narrative/Plan: Low platelets have been noted over the past year though, not ever as profound as currently (67,000). CBC daily >50,000 pt is ok to continue anticoagulation for a-fib. Pt is ok for ablation if Cardiology desiring to do so. Full work up ordered-labs. Current Visit: Yes Status: Acute Priority: High Code(s): D69.6 - THROMBOCYTOPENIA, UNSPECIFIED SNOMED Code(s): 279223632 (2) Unintentional weight loss Narrative/Plan: 60lbs unintentional wt. loss 1 year, 35lbs in the last 4months, early satiety too. CT CAP ordered, evaluate liver/spleen and possible occult malig. Current Visit: Yes Status: Acute Priority: High Code(s): R63.4 - ABNORMAL WEIGHT LOSS SNOMED Code(s): 543131190
[2018-09-03] MEDS ORDERED: CHOLECALCIFEROL 1,000 UNIT TAB PO SCH (15:00)
[2018-09-03] MEDS ORDERED: SERTRALINE 100 MG TAB PO SCH (15:00)
[2018-09-03] MEDS ORDERED: Mirabegron [Myrbetriq] PO SCH (15:00)
[2018-09-03] MEDS ORDERED: ATORVASTATIN 10 MG TAB PO SCH (15:00)
[2018-09-03] MEDS: IOPAMIDOL-300 CONTRAST 30 ML VIAL (ORAL USE) PO PRN ×2 (15:26→16:39)
[2018-09-03] MEDS: ALFUZOSIN HCL PO SCH (16:19)
[2018-09-03 16:24] VITALS: RESP 18
[2018-09-03] MEDS: PANTOPRAZOLE 40 MG TABLET PO SCH (17:14)
--- NOTE | 2018-09-03 17:34 | CT ---
EXAMINATION TYPE: CT ChestAbdPelvis w con DATE OF EXAM: 09/03/2018 COMPARISON: Chest CT scan 05/16/2017 HISTORY: Patient poor historian Weight loss. CT DLP: 2203.8 mGycm Automated exposure control for dose reduction was used. CONTRAST: CT scan of the chest, abdomen and pelvis is performed with Oral Contrast and with IV Contrast, patien t injected with 100 mL of Isovue 300. FINDINGS: There is left pleural effusion. Heart is borderline enlarged. There is pulmonary emphysema. There is minimal atelectasis left lung base. There is minimal subsegmental atelectasis right lung base. There are no hilar masses. There is no mediastinal adenopathy. Thoracic aorta is atheromatous. There is asy mmetric enlargement of the left thyroid lobe unchanged. Spleen is enlarged and measures 18 cm. Stomach appears normal. There is no evidence of pancreatic mas s. Gallbladder is contracted. There is no adrenal mass. Kidneys have normal size and contour. There is no hydronephrosis. There are multiple bilateral small renal calculi up to 4 mm. Ureters are not dilated. There is umbilical herni a contains fat. There is no retroperitoneal adenopathy. There is very little contrast in the renal co llecting systems on the delayed images. Bladder distends smoothly. There is no inguinal hernia. There is no free fluid in the pelvis. There is no sign of a bowel obstruction. There is no sign of thicken ed appendix. There are spondylotic changes in the thoracic and lumbar spine. There is no compression fracture. Bony pelvis appears intact. There is degenerative cyst in the left acetabulum. IMPRESSION: Left pleural effusion with some mild linear infiltrate and atelectasis at the posterior l ben bases. Splenomegaly. Nonobstructing multiple renal calculi. No significant contrast on delayed im ages suggestive of decreased renal function. Pulmonary emphysema. Pulmonary abnormality new compared to old exam. Splenomegaly unchanged.
[2018-09-03] MEDS ORDERED: TEMAZEPAM 30 MG CAP PO PRN (21:00)
[2018-09-04 03:38] LABS: Rheumatoid Factor 9 IU/mL (0-15)
[2018-09-04] MEDS: PANTOPRAZOLE 40 MG TABLET PO SCH (06:28)
[2018-09-04 06:42] LABS: Basophils % (A) 0 %; Eosinophils # (A) 0.2 k/uL (0-0.7); Eosinophils % (A) 3 %; HCT 43.5 % (39.0-53.0); HGB 13.9 gm/dL (13.0-17.5); Lymphocytes # (A) 1.2 k/uL (1.0-4.8); Lymphocytes % (A) 23 %; MCH 30.7 pg (25.0-35.0); MCHC 31.8 g/dL (31.0-37.0); MCV 96.5 fL (80.0-100.0); Mean Platelet Volume 9.5; Monocytes # (A) 0.3 k/uL (0-1.0); Monocytes % (A) 7 %; Neutrophils # (A) 3.4 k/uL (1.3-7.7); Neutrophils % (A) 66 %; RBC 4.51 m/uL (4.30-5.90); RDW 15.4 % (11.5-15.5); WBC 5.1 k/uL (3.8-10.6)
[2018-09-04 06:43] LABS: Platelet Count 88 k/uL (150-450)
[2018-09-04 06:55] LABS: Albumin 3.4 g/dL (3.5-5.0); Calcium 9.1 mg/dL (8.4-10.2); Potassium 3.7 mmol/L (3.5-5.1); Total Protein 5.5 g/dL (6.3-8.2)
[2018-09-04] MEDS: APIXABAN 5 MG TAB PO SCH (09:04)
[2018-09-04] MEDS: METOPROLOL TARTRATE 25 MG TAB PO SCH (09:05)
[2018-09-04] MEDS: AMIODARONE 200 MG TAB PO SCH (09:05)
[2018-09-04] MEDS: FUROSEMIDE 40 MG TAB PO SCH (09:05)
[2018-09-04] MEDS: ALFUZOSIN HCL PO SCH (09:06)
[2018-09-04 10:05] LABS: Albumin 3.37 g/dL (3.80-4.90); Gamma Globulin 0.44 g/dL (0.70-1.50)
[2018-09-04 13:10] VITALS: BP 170/111; PULSE 71; TEMP 97
--- NOTE | 2018-09-04 13:15 | P.DS ---
Providers Date of admission: 09/02/18 23:45 Expected date of discharge: 09/04/18 Attending physician: Juan C Beltran Consults: 09/02/18 23:45 Consult Physician Routine Consulting Provider: Brigitte Alvares Consult Reason/Comments: Atrial fibrillation with RVR Do you want consulting provider notified?: Yes 09/03/18 11:01 Consult Physician Routine Consulting Provider: Basilio Reece Consult Reason/Comments: Thrombocytopenia Do you want consulting provider notified?: Yes Primary care physician: Juan C Ruby [facility] Course: Discharge diagnosis 1. Chest pain. Troponins negative 3. Chest x-ray completed showing no acute pulmonary or radiographic process. Cardiology service have been consulted. Per cardiology services patient to follow up with Dr. Connell outpatient to schedule ablation. Discussed case with Dr. Grijalva per cardiology services. Patient has been cleared for discharge Lopressor has been increased per cardiology 2. Paroxysmal atrial fibrillation. EKG completed showing atrial flutter with variable AV block and premature ventricular aberrantly conducted complexes. Patient recently underwent GENARO and cardioversion. Per cardiology patient may be DC'd home and follow-up outpatient for ablation 3. Thrombocytopenia. Platelets are low at 67. Per hematology services patient is okay to continue anticoagulation for A. fib. Patient okay for cardio ablation. Computed tomography scan of abdomen chest and pelvis ordered per oncology services and reviewed. Discussed case with oncology [employer] Diamante kumar for patient to be DC'd and follow-up outpatient 4. History of essential hypertension 5. History of GERD 6. History of hyperlipidemia 7. History of previous cardiac catheterization 8. Chronic systolic congestive heart failure. Patient obtain on Lasix. Hospital course This is a 77-year-old male patient who presented with complaints of feeling lightheaded and short of breath patient reports his symptoms felt similar to previous episodes he had one his heart rate went into A. fib with RVR. Patient reports that he was out golfing symptoms started. Patient follows with Dr. Alvares in the office. Patient recently underwent GENARO and cardioversion. Patient has past medical history of atrial fibrillation, heart failure, CVA, GERD, hearing disorder, hyperlipidemia, hypertension, osteoporosis, prostate disorder and previous heart cath. Chest x-ray completed in ER showing no acute pulmonary or radiographic process. EKG completed showing atrial flutter with variable AV block premature ventricular aberrantly conducted complexes. Troponins negative 3. Patient maintained on eliquis for anticoagulation. Cardiology services have been consulted. At this time patient denies any chest pain or shortness of breath. Patient denies nausea vomiting or diarrhea. Patient denies any urinary frequency On 09/04/2018 patient is alert and oriented 3. Patient denies any chest pain or shortness of breath. Patient states symptoms have resolved. Heart rate has been controlled in the 60s and 70s. Discussed case with cardiology [employer] Dr. Grijalva. Patient has been cleared for discharge and will follow-up outpatient to schedule outpatient ablation with Dr. Connell for atrial fibrillation. Per cardiology Lopressor has been increased to 75 mg 3 times a day. Also discussed case with oncology [employer] Diamante. Platelets have improved 88. Okay to maintain on anticoagulation for atrial fibrillation. CT reviewed per oncology services. Okay for patient to be DC'd home and follow-up outpatient. Repeat CBC has been ordered for 2 days. At this time patient denies chest pain or shortness of breath. Patient denies nausea vomiting or diarrhea. Patient denies any urinary burning or frequency. I performed an examination of the patient and discussed their management with the Nurse Practitioner. I have reviewed the Nurse Practitioner's notes and agree with the documented findings and plan of care Patient Condition at Discharge: Stable Plan - Discharge Summary New Discharge Prescriptions: New Metoprolol Tartrate [Lopressor] 75 mg PO TID 30 Days #90 tab Continue Temazepam [Restoril] 30 mg PO HS Sertraline HCl [Zoloft] 200 mg PO DAILY@1500 Alfuzosin HCl [Uroxatral ER] 10 mg PO DAILY Mirabegron [Myrbetriq] 25 mg PO DAILY@1500 Cholecalciferol [Vitamin D3 (25 Mcg = 1000 Iu)] 1,000 unit PO DAILY@1500 ALPRAZolam [Xanax] 0.5 mg PO DAILY PRN PRN Reason: Anxiety Apixaban [Eliquis] 5 mg PO BID #60 tab Vitamin E (Dl,Tocopheryl Acet) [Vitamin E] 400 unit PO DAILY@1500 Simvastatin [Zocor] 20 mg PO DAILY@1500 Acetaminophen Tab [Tylenol] 1,000 mg PO HS Amiodarone [Cordarone] 200 mg PO DAILY Furosemide [Lasix] 40 mg PO DAILY Butalb/APAP/Caff 50-325-40Mg [Fioricet 50-325-40] 1 tab PO Q4HR PRN PRN Reason: Headache Esomeprazole Magnesium [NexIUM 24Hr] 40 mg PO DAILY Discontinued Metoprolol Tartrate [Lopressor] 50 mg PO TID Discharge Medication List Sertraline HCl [Zoloft] 200 mg PO DAILY@1500 10/30/13 [History] Temazepam [Restoril] 30 mg PO HS 10/30/13 [History] Alfuzosin HCl [Uroxatral ER] 10 mg PO DAILY 01/14/18 [History] ALPRAZolam [Xanax] 0.5 mg PO DAILY PRN 06/10/18 [History] Cholecalciferol [Vitamin D3 (25 Mcg = 1000 Iu)] 1,000 unit PO DAILY@1500 06/10/18 [History] Mirabegron [Myrbetriq] 25 mg PO DAILY@1500 06/10/18 [History] Apixaban [Eliquis] 5 mg PO BID #60 tab 06/12/18 [Rx] Acetaminophen Tab [Tylenol] 1,000 mg PO HS 08/08/18 [History] Simvastatin [Zocor] 20 mg PO DAILY@1500 08/08/18 [History] Vitamin E (Dl,Tocopheryl Acet) [Vitamin E] 400 unit PO DAILY@1500 08/08/18 [History] Amiodarone [Cordarone] 200 mg PO DAILY 08/26/18 [History] Furosemide [Lasix] 40 mg PO DAILY 08/26/18 [History] Butalb/APAP/Caff 50-325-40Mg [Fioricet 50-325-40] 1 tab PO Q4HR PRN 09/02/18 [History] Esomeprazole Magnesium [NexIUM 24Hr] 40 mg PO DAILY 09/02/18 [History] Metoprolol Tartrate [Lopressor] 75 mg PO TID 30 Days #90 tab 09/04/18 [Rx] Follow up Appointment(s)/Referral(s): Basilio Reece MD [STAFF PHYSICIAN] - 1 Week [facility], [NON-STAFF] - Juan C Beltran MD [Primary Care Provider] - 1-2 days Activity/Diet/Wound Care/Special Instructions: Activity as tolerated Diet heart healthy Patient to follow-up with cardiology services for outpatient ablation Discharge Disposition: HOME SELF-CARE
--- NOTE | 2018-09-04 13:40 | P.PN ---
Subjective Progress Note Date: 09/04/18 This is a pleasant 77-year-old gentleman who follows with Dr. Alvares in the office. He has a known history of hyperlipidemia, nicotine dependence, hypertension, mild coronary artery disease by cardiac catheterization performed in 2013, paroxysmal atrial fibrillation for which the patient recently underwent a GENARO with subsequent cardioversion. He presents to the hospital on this occasion with symptoms of lightheadedness and near syncope. According to the patient, he had been out on the golf course in the morning, he states that he played about 7 holes but became extremely tired. He went home and mentioned to his that he was mildly dizzy and just did not feel right, he stood up to go next to her to have his blood pressure checked, after he stood up he states that everything went white, he was lightheaded and felt as though he may pass out. He immediately sat down, his checked his blood pressure at that time which was noted to be significantly low. Patient does state that he drank a bottle of water and a bottle of 7 and upon return home. They made a call to the card iology office and were directed to come to the emergency room for further evaluation. His EKG on arrival here showed atrial fibrillation. This morning he continues to be in atrial fibrillation with a heart rate of 110. Chest x-ray was performed which revealed no acute process. Blood pressure 116/60, 97% on room air. White blood cell count 3.8, hemoglobin 13.7, platelet count 90 on admission, 67 this morning, d-dimer 0.6. Sodium 142, potassium 3.7, BUN 24 and creatinine 0.9. Troponins negative 3, BNP level 2960. 09/04/2018 Patient was seen and examined this morning, overall he feels well, significantly better according to him. He continues to be in atrial fibrillation his heart rate is in the 70s. Blood pressure 110/60 96% on room air. White blood cell count 5.1, hemoglobin 13.9, platelet count 88, sodium 139, potassium 3.7, BUN [address] Connell had a lengthy discussion with the patient and his this morning, patient may be able to be discharged home today, outpatient ablation in 3-4 weeks. Objective - Vital Signs Vital signs: Vital Signs Temp 97 F L 07/18/19 12:20 Pulse 71 09/04/18 12:20 Resp 18 09/04/18 12:20 BP 170/111 09/04/18 12:20 Pulse Ox 95 09/04/18 12:20 Intake & Output 09/03/18 09/04/18 09/04/18 18:59 06:59 18:59 Intake Total 1080 444 462 Output Total 200 150 Balance 880 294 462 Weight 133.3 kg Intake: Oral 1080 444 462 Output: Urine 200 150 Other: # Voids 1 # Bowel Movements 0 - Exam PHYSICAL EXAMINATION: GENERAL: 77-year-old gentleman in no acute distress at the time of my examination HEENT: Head is atraumatic, normocephalic. Pupils equal, round. Sclera anicteric. Conjunctiva are clear. Mucous membranes of the mouth are moist. N izabella is supple. There is no elevated jugular venous pressure.] bruit is heard. HEART EXAMINATION: Heart S1 and S2 irregularly irregular CHEST EXAMINATION: Lungs are clear with diminished air entry to the bases . ABDOMEN: Soft, nontender. Bowel sounds are heard. No organomegaly noted. EXTREMITIES: 2+ peripheral pulses with no evidence of peripheral edema and no calf tenderness noted. NEUROLOGIC patient is awake, alert and oriented 3 . - Labs CBC & Chem 7: 09/04/18 06:05 09/04/18 06:05 Labs: Abnormal Lab Results - Last 24 Hours (Table) 09/03/18 09/04/18 09/04/18 Range/Units 08:43 06:05 06:05 Plt Count 88 L (150-450) k/uL BUN 24 H (9-20) mg/dL Glucose 102 H (74-99) mg/dL Total Protein 5.5 L (6.3-8.2) g/dL Total Protein (PEP) 5.0 L (6.2-8.2) g/dL Albumin 3.4 L (3.5-5.0) g/dL Albumin (PEP) 3.37 L (3.80-4.90) g/dL Jsiay-5-Kqlecvnsq 0.58 L (0.60-1.00) g/dL Beta Globulins 0.46 L (0.60-1.30) g/dL Gamma Globulins 0.44 L (0.70-1.50) g/dL Free [place] LC, Quant 2.75 H (0.33-1.94) mg/dL Microbiology - Last 24 Hours (Table) 09/02/18 20:47 Blood Culture - Preliminary Blood No Growth after 24 hours Assessment and Plan Plan: Assessment and plan #1 atrial fibrillation, paroxysmal, patient recently underwent GENARO with subsequent cardioversion #2 hypertension #3 GERD #4 nicotine dependence #5 hyperlipidemia #6 mild coronary artery disease by cardiac catheterization performed in 2013 Plan From cardiology's perspective, patient may be able to be discharged home today, he will undergo an ablation as an outpatient in the next 3-4 weeks. We will continue the metoprolol at 75 mg by mouth 3 times a day, follow-up appointment with Dr. Alvares as an outpatient. DNP note has been reviewed, I agree with a documented findings and plan of care. Patient was seen and examined.
[2018-09-04] MEDS ORDERED: METOPROLOL TARTRATE 25 MG TAB PO SCH (16:00)
--- NOTE | 2018-09-04 17:50 | P.PN ---
Subjective Progress Note Date: 09/04/18 Principal diagnosis: Thrombocytopenia In follow-up today patient has no complaints on a 10 point review of systems, he is anxious to go home Objective - Vital Signs Vital signs: Vital Signs Temp 97 F L 09/04/18 12:20 Pulse 71 09/04/18 12:20 Resp 18 09/04/18 12:20 BP 170/111 09/04/18 12:20 Pulse Ox 95 09/04/18 12:20 Intake & Output 09/03/18 09/04/18 09/04/18 18:59 06:59 18:59 Intake Total 1080 444 462 Output Total 200 150 Balance 880 294 462 Weight 133.3 kg Intake: Oral 1080 444 462 Output: Urine 200 150 Other: # Voids 1 # Bowel Movements 0 - Constitutional General appearance: Present: cooperative, no acute distress, obese - EENT Eyes: Present: anicteric sclerae, EOMI ENT: Present: hearing grossly normal - Respiratory Respiratory: bilateral: CTA - Cardiovascular Heart sounds: normal: S1, S2 - Peripheral edema leg Peripheral Edema: bilateral: None - Gastrointestinal General gastrointestinal: Present: normal bowel sounds, soft, splenomegaly - Integumentary Integumentary: Present: normal, normal turgor - Neurologic Neurologic: Present: CNII-XII intact - Musculoskeletal Musculoskeletal: Present: strength equal bilaterally - Psychiatric Psychiatric: Present: A&O x's 3, appropriate affect, intact judgment & insight - Labs CBC & Chem 7: 09/04/18 06:05 09/04/18 06:05 Labs: Abnormal Lab Results - Last 24 Hours (Table) 09/03/18 09/04/18 09/04/18 Range/Units 08:43 06:05 06:05 Plt Count 88 L (150-450) k/uL BUN 24 H (9-20) mg/dL Glucose 102 H (74-99) mg/dL Total Protein 5.5 L (6.3-8.2) g/dL Total Protein (PEP) 5.0 L (6.2-8.2) g/dL Albumin 3.4 L (3.5-5.0) g/dL Albumin (PEP) 3.37 L (3.80-4.90) g/dL Ucoye-7-Nclcockbp 0.58 L (0.60-1.00) g/dL Beta Globulins 0.46 L (0.60-1.30) g/dL Gamma Globulins 0.44 L (0.70-1.50) g/dL Free [place] LC, Quant 2.75 H (0.33-1.94) mg/dL Microbiology - Last 24 Hours (Table) 09/02/18 20:47 Blood Culture - Preliminary Blood No Growth after 24 hours - Imaging and Cardiology CT scan - abdomen: report reviewed CT scan - chest: report reviewed CT scan - pelvis: report reviewed Assessment and Plan (1) Thrombocytopenia Narrative/Plan: Low platelets have been noted over the past year though. More profound at one point in this visit. Today plt count is 88,000. Recommend a CBC in the next week with Primary Care. >50,000 pt is ok to continue anticoagulation for a-fib. Pt is ok for ablation if Cardiology desiring to do so. CT of the chest abdomen and pelvis did reveal an enlarged spleen, no other abnormalities. We are going to request that Radiologist comment on the liver. Labs that were ordered are still pending. Explained to patient and his that once I have all of these results if it is felt that he needs to have further follow-up with a Panel Raiser Operator we will contact them. Recommendation is for CBC monitoring which can be done with Primary Care with referral back to Hematology if any acute changes or concerns. Contact information for our office was given to the patient just in case of concerns. They understood the recommendations, agree with the plan as dictated. Status: Acute Priority: High Code(s): D69.6 - THROMBOCYTOPENIA, UNSPECIFIED SNOMED Code(s): 263292256 (2) Unintentional weight loss Narrative/Plan: 60lbs unintentional wt. loss 1 year, 35lbs in the last 4months, early satiety. Enlarged spleen is documented. No occult malignancy identified on CT of chest abdomen and pelvis. Recommended patient that he continue with his age-related counts or screenings. He needs to report any unusual symptoms. He will keep monitoring his weight. Nothing further at this time from Oncology standpoint. Status: Acute Priority: High Code(s): R63.4 - ABNORMAL WEIGHT LOSS SNOMED Code(s): 861836224
[2018-09-04] MEDS ORDERED: METOPROLOL TARTRATE 50 MG TAB PO SCH (21:00)
== END 2018-09-04 14:38 | disposition home health service (06) | DRG 309 ==
LOC: EC 19:29 → OBSVTOIN 23:45 → 3SCARD 23:45
PROVIDERS: ADMIT Internal Medicine; ATTEND Internal Medicine
DX: I48.0 Paroxysmal atrial fibrillation (principal); I50.22 Chronic systolic (congestive) heart failure; I48.92 Unspecified atrial flutter; D69.6 Thrombocytopenia, unspecified; I11.0 Hypertensive heart disease with heart failure; R16.1 Splenomegaly, not elsewhere classified; E66.01 Morbid (severe) obesity due to excess calories; I95.9 Hypotension, unspecified; R07.9 Chest pain, unspecified; E78.5 Hyperlipidemia, unspecified; F17.200 Nicotine dependence, unspecified, uncomplicated; H91.90 Unspecified hearing loss, unspecified ear; I25.10 Atherosclerotic heart disease of native coronary artery without angina pectoris; I44.30 Unspecified atrioventricular block; K21.9 Gastro-esophageal reflux disease without esophagitis; M81.0 Age-related osteoporosis without current pathological fracture; N40.0 Benign prostatic hyperplasia without lower urinary tract symptoms; F32.9 Major depressive disorder, single episode, unspecified; H93.19 Tinnitus, unspecified ear; M19.90 Unspecified osteoarthritis, unspecified site; R68.81 Early satiety; R63.4 Abnormal weight loss; Z68.36 Body mass index [BMI] 36.0-36.9, adult; Z79.01 Long term (current) use of anticoagulants; Z79.899 Other long term (current) drug therapy; Z88.5 Allergy status to narcotic agent; Z88.0 Allergy status to penicillin; Z96.653 Presence of artificial knee joint, bilateral; Z87.442 Personal history of urinary calculi; Z86.73 Personal history of transient ischemic attack (TIA), and cerebral infarction without residual deficits; Z98.42 Cataract extraction status, left eye; Z98.41 Cataract extraction status, right eye; Z96.1 Presence of intraocular lens; Z82.49 Family history of ischemic heart disease and other diseases of the circulatory system
CPT/HCPCS: 36415; 71046; 71260; 74177; 80048; 80053; 80061; 83615; 83880; 83883; 84165; 84443; 84484; 85025; 85049; 85379; 85610; 85652; 85730; 86038; 86334; 86431; 87040; 93005; 99285

== ENCOUNTER 2018-09-06 14:37 | Emergency (ER) | payer MEDICARE ==
[2018-09-06 14:42] VITALS: TEMP 98.6
[2018-09-06] MEDS ORDERED: IPRATROPIUM-ALBUTEROL 3 ML NEB INHALATION STA (14:59)
--- NOTE | 2018-09-06 15:02 | ED ---
General Adult HPI - General Chief complaint: Shortness of Breath Stated complaint: CHF Time Seen by Provider: 09/06/18 14:47 Source: patient, family, RN notes reviewed Mode of arrival: wheelchair Limitations: physical limitation - History of Present Illness Initial comments: Patient is a pleasant 77-year-old male presenting to the emergency department a fter visiting nurse advised him to come. Patient has had a 3 pound waking in the past 3 days. Patient does complain of some difficulty in breathing. Visiting nurse also had concerns for pulse ox of 92 and some crackles in the bases and +1 pitting edema. Patient states he was just discharged from the hospital several days ago. Patient states he has had to be admitted multiple times over the past few months for CHF. No chest pain. Patient does admit to having some leg swelling - Related Data Home Medications Medication Instructions Recorded Confirmed Sertraline HCl [Zoloft] 200 mg PO DAILY@1500 10/30/13 09/06/18 Temazepam [Restoril] 30 mg PO 10/30/13 09/06/18 Alfuzosin HCl [Uroxatral ER] 10 mg PO DAILY 01/14/18 09/06/18 ALPRAZolam [Xanax] 0.5 mg PO DAILY PRN 06/10/18 09/06/18 Cholecalciferol [Vitamin D3 (25 1,000 unit PO DAILY@1500 06/10/18 09/06/18 Mcg = 1000 Iu)] Mirabegron [Myrbetriq] 25 mg PO DAILY@1500 06/10/18 09/06/18 Acetaminophen Tab [Tylenol] 1,000 mg PO 08/08/18 09/06/18 Simvastatin [Zocor] 20 mg PO DAILY@1500 08/08/18 09/06/18 Vitamin E (Dl,Tocopheryl Acet) 400 unit PO DAILY@1500 08/08/18 09/06/18 [Vitamin E] Amiodarone [Cordarone] 200 mg PO DAILY 08/26/18 09/06/18 Furosemide [Lasix] 40 mg PO DAILY 08/26/18 09/06/18 Butalb/APAP/Caff 50-325-40Mg 1 tab PO Q4HR PRN 09/02/18 09/06/18 [Fioricet 50-325-40] Esomeprazole Magnesium [NexIUM 40 mg PO DAILY 09/02/18 09/06/18 24Hr] Previous Rx's Medication Instructions Recorded Apixaban [Eliquis] 5 mg PO BID #60 tab 06/12/18 Metoprolol Tartrate [Lopressor] 75 mg PO TID 30 Days #90 tab 09/04/18 Allergies Allergy/AdvReac Type Severity Reaction Status Date / Time hydrocodone bitartrate Allergy Anaphylaxis Verified 09/06/18 15:15 [From Vicodin] Penicillins Allergy Anaphylaxis Verified 09/06/18 15:15 propoxyphene napsylate Allergy Anaphylaxis Verified 09/06/18 15:15 [From Darvocet-N 100] tamsulosin HCl [From Flomax] Allergy Anaphylaxis Verified 09/06/18 15:15 Review of Systems ROS Statement: Those systems with pertinent positive or pertinent negative responses have been documented in the HPI. ROS Other: All systems not noted in ROS Statement are negative. Constitutional: Denies: fever Eyes: Denies: eye pain ENT: Denies: ear pain Respiratory: Reports: dyspnea. Denies: cough Cardiovascular: Reports: edema. Denies: chest pain Endocrine: Reports: fatigue Gastrointestinal: Denies: abdominal pain Genitourinary: Denies: dysuria Musculoskeletal: Denies: back pain Skin: Denies: rash Neurological: Denies: weakness Past Medical History Past Medical History: Atrial Fibrillation, Heart Failure, CVA/TIA, GERD/Reflux, Hearing Disorder / Deafness, Hyperlipidemia, Hypertension, Osteoarthritis (OA), Prostate Disorder Additional Past Medical History / Comment(s): Tinnitus, Hx kidney stones, BPH, LUNG SCARRING. TOLD ON CT SCAN HX "COUPLE MINI STROKES." History of Any Multi-Drug Resistant Organisms: None Reported Past Surgical History: Adenoidectomy, Ear Surgery, Heart Catheterization, Joint Replacement, Tonsillectomy Additional Past Surgical History / Comment(s): Oral surgery, diana knee replacements, thyroid surgery, diana cataracts. EGD, COLONOSCOPY cardioversion Past Anesthesia/Blood Transfusion Reactions: No Reported Reaction Past Psychological History: No Psychological Hx Reported Smoking Status: Former smoker Past Alcohol Use History: None Reported Past Drug Use History: None Reported - Past Family History Father Family Medical History: Congestive Heart Failure (CHF), Hypertension, Myocardial Infarction ([place]) Additional Family Medical History / Comment(s): AT AGE 84-[place] Mother Family Medical History: No Reported History Additional Family Medical History / Comment(s): MOM AT AGE 60 MUSCULAR DYSTOPY General Exam Limitations: physical limitation General appearance: alert, in no apparent distress Head exam: Present: atraumatic Eye exam: Present: normal appearance, PERRL ENT exam: Present: normal oropharynx Neck exam: Present: normal inspection Respiratory exam: Present: rales (Mild bilateral bases) Cardiovascular Exam: Present: irregular rhythm GI/Abdominal exam: Present: soft. Absent: tenderness Extremities exam: Present: pedal edema (+1 bilateral). Absent: calf tenderness Neurological exam: Present: alert Psychiatric exam: Present: normal affect, normal mood Skin exam: Present: normal color Course Vital Signs 09/06/18 09/06/18 09/06/18 14:40 15:20 15:27 Temperature 98.6 F Pulse Rate 62 82 Respiratory 18 22 16 Rate Blood Pressure 89/61 O2 Sat by Pulse 94 L Oximetry 09/06/18 15:36 Temperature Pulse Rate 81 Respiratory 16 Rate Blood Pressure O2 Sat by Pulse Oximetry EKG Findings - EKG Comments: EKG Findings:: A. fib with rate of 88. QRS 110. QT 376. QTc 454. Normal axis. Incomplete left bundle-branch block. Nonspecific T waves. Medical Decision Making - Medical Decision Making Patient reevaluated and resting comfortably in bed. Patient and family updated on results and plan. Case was discussed in detail with Dr. Beltran who did recommend discharge and close follow-up. He states he will see the patient on Saturday. He does recommend daily dose of Lasix increased from 40 now to 60 mg. Family states they do have enough medication to do this and are agreeable with follow-up. - Lab Data Result diagrams: 09/06/18 15:16 09/06/18 15:16 Lab Results 09/06/18 09/06/18 09/06/18 Range/Units 15:16 15:16 15:16 WBC 5.0 (3.8-10.6) k/uL RBC 4.48 (4.30-5.90) m/uL Hgb 13.6 (13.0-17.5) gm/dL Hct 42.8 (39.0-53.0) % MCV 95.6 (80.0-100.0) fL MCH 30.4 (25.0-35.0) pg MCHC 31.8 (31.0-37.0) g/dL RDW 14.5 (11.5-15.5) % Plt Count 94 L (150-450) k/uL Neutrophils % 66 % Lymphocytes % 22 % Monocytes % 6 % Eosinophils % 3 % Basophils % 1 % Neutrophils # 3.3 (1.3-7.7) k/uL Lymphocytes # 1.1 (1.0-4.8) k/uL Monocytes # 0.3 (0-1.0) k/uL Eosinophils # 0.2 (0-0.7) k/uL Basophils # 0.0 (0-0.2) k/uL PT (9.0-12.0) sec INR (<1.2) APTT (22.0-30.0) sec Sodium 141 (137-145) mmol/L Potassium 4.3 (3.5-5.1) mmol/L Chloride 107 (98-107) mmol/L Carbon Dioxide 26 (22-30) mmol/L Anion Gap 8 mmol/L BUN 24 H (9-20) mg/dL Creatinine 1.40 H (0.66-1.25) mg/dL Est GFR (CKD-EPI)AfAm 56 (>60 ml/min/1.73 sqM) Est GFR (CKD-EPI)NonAf 49 (>60 ml/min/1.73 sqM) Glucose 104 H (74-99) mg/dL Calcium 8.9 (8.4-10.2) mg/dL Total Bilirubin 0.9 (0.2-1.3) mg/dL AST 27 (17-59) U/L ALT 27 (21-72) U/L Alkaline Phosphatase 56 (38-126) U/L Troponin I (0.000-0.034) ng/mL NT-Pro-B Natriuret Pep 3700 pg/mL Total Protein 5.8 L (6.3-8.2) g/dL Albumin 3.8 (3.5-5.0) g/dL 09/06/18 09/06/18 Range/Units 15:16 15:16 WBC (3.8-10.6) k/uL RBC (4.30-5.90) m/uL Hgb (13.0-17.5) gm/dL Hct (39.0-53.0) % MCV (80.0-100.0) fL MCH (25.0-35.0) pg MCHC (31.0-37.0) g/dL RDW (11.5-15.5) % Plt Count (150-450) k/uL Neutrophils % % Lymphocytes % % Monocytes % % Eosinophils % % Basophils % % Neutrophils # (1.3-7.7) k/uL Lymphocytes # (1.0-4.8) k/uL Monocytes # (0-1.0) k/uL Eosinophils # (0-0.7) k/uL Basophils # (0-0.2) k/uL PT 11.4 (9.0-12.0) sec INR 1.1 (<1.2) APTT 25.4 (22.0-30.0) sec Sodium (137-145) mmol/L Potassium (3.5-5.1) mmol/L Chloride (98-107) mmol/L Carbon Dioxide (22-30) mmol/L Anion Gap mmol/L BUN (9-20) mg/dL Creatinine (0.66-1.25) mg/dL Est GFR (CKD-EPI)AfAm (>60 ml/min/1.73 sqM) Est GFR (CKD-EPI)NonAf (>60 ml/min/1.73 sqM) Glucose (74-99) mg/dL Calcium (8.4-10.2) mg/dL Total Bilirubin (0.2-1.3) mg/dL AST (17-59) U/L ALT (21-72) U/L Alkaline Phosphatase (38-126) U/L Troponin I <0.012 (0.000-0.034) ng/mL NT-Pro-B Natriuret Pep pg/mL Total Protein (6.3-8.2) g/dL Albumin (3.5-5.0) g/dL - Radiology Data Radiology results: image reviewed (Chest x-ray shows no acute process) Disposition Clinical Impression: Congestive heart failure Disposition: HOME SELF-CARE Condition: Stable Instructions (If sedation given, give patient instructions): Heart Failure (ER), COPD (Chronic Obstructive Pulmonary Disease) (ED) Additional Instructions: Please follow-up with Dr. Beltran Saturday as discussed. Please increased Lasix dose up to 60 mg daily. Return for difficulty breathing, swelling, worsening symptoms or other concerns. Is patient prescribed a controlled substance at d/c from ED?: No Referrals: Juan C Beltran MD [Primary Care Provider] - 1-2 days Time of Disposition: 16:43
[2018-09-06 15:29] VITALS: RESP 16
[2018-09-06 15:30] LABS: Basophils % (A) 1 %; Eosinophils # (A) 0.2 k/uL (0-0.7); Eosinophils % (A) 3 %; HCT 42.8 % (39.0-53.0); HGB 13.6 gm/dL (13.0-17.5); Lymphocytes # (A) 1.1 k/uL (1.0-4.8); Lymphocytes % (A) 22 %; MCH 30.4 pg (25.0-35.0); MCHC 31.8 g/dL (31.0-37.0); MCV 95.6 fL (80.0-100.0); Mean Platelet Volume 10.1; Monocytes # (A) 0.3 k/uL (0-1.0); Monocytes % (A) 6 %; Neutrophils # (A) 3.3 k/uL (1.3-7.7); Neutrophils % (A) 66 %; RBC 4.48 m/uL (4.30-5.90); RDW 14.5 % (11.5-15.5)
[2018-09-06 15:32] LABS: Platelet Count 94 k/uL (150-450)
[2018-09-06 15:37] LABS: INR 1.1 (<1.2); Partial Thromboplastin Time 25.4 sec (22.0-30.0); Prothrombin Time 11.4 sec (9.0-12.0)
[2018-09-06 15:46] LABS: Albumin 3.8 g/dL (3.5-5.0); Calcium 8.9 mg/dL (8.4-10.2); Potassium 4.3 mmol/L (3.5-5.1); Total Bilirubin 0.9 mg/dL (0.2-1.3); Total Protein 5.8 g/dL (6.3-8.2)
--- NOTE | 2018-09-06 15:59 | XR ---
EXAMINATION TYPE: XR chest 2V DATE OF EXAM: 09/06/2018 COMPARISON: 09/02/2018 HISTORY: Short of breath TECHNIQUE: Frontal and lateral views of the chest are obtained. FINDINGS: Heart is normal. Lungs are clear of consolidation. Thoracic aorta is atheromatous. There i s spurring in the thoracic spine. There are chest leads. Costophrenic angles are clear. IMPRESSION: No active cardiopulmonary disease. No change.
[2018-09-06] MEDS ORDERED: FUROSEMIDE 10 MG/ML 4 ML VIAL IV STA (16:36)
[2018-09-06 17:26] VITALS: BP 107/74; PULSE 81
== END 2018-09-06 17:28 | disposition home or self-care (01) ==
LOC: EC 14:37
DX: I11.0 Hypertensive heart disease with heart failure (principal); I50.9 Heart failure, unspecified; I48.91 Unspecified atrial fibrillation; I25.2 Old myocardial infarction; E78.5 Hyperlipidemia, unspecified; K21.9 Gastro-esophageal reflux disease without esophagitis; N40.0 Benign prostatic hyperplasia without lower urinary tract symptoms; M19.90 Unspecified osteoarthritis, unspecified site; H91.90 Unspecified hearing loss, unspecified ear; Z87.891 Personal history of nicotine dependence; Z79.899 Other long term (current) drug therapy; Z88.0 Allergy status to penicillin; Z88.5 Allergy status to narcotic agent; Z88.8 Allergy status to other drugs, medicaments and biological substances; Z95.5 Presence of coronary angioplasty implant and graft; Z98.890 Other specified postprocedural states; Z82.49 Family history of ischemic heart disease and other diseases of the circulatory system
CPT/HCPCS: 99285; 96374; 36415; 94640; 93005; 83880; 80053; 84484; 85025; 85610; 85730; 71046; J1940

== ENCOUNTER 2018-09-23 12:47 | Day surgery (SDC) | payer MEDICARE ==
[2018-09-17 13:32] VITALS: BMI 37.5
[~2018-09-23 12:47] MED LIST changes: -ACETAMINOPHEN TAB 500 MG TAB PO SCH; -ALFUZOSIN HCL 10 MG PO SCH; -ALPRAZolam 0.5 MG TAB PO PRN; -AMIODARONE 200 MG TAB PO SCH; -APIXABAN 5 MG TAB PO SCH; -BUTALB/APAP/CAFF 50-325-40MG TAB PO PRN; -CHOLECALCIFEROL 1,000 UNIT TAB PO SCH; -FUROSEMIDE 40 MG TAB PO SCH; -LACTATED RINGERS 1,000 ML IV SCH; -LIDOCAINE 1% INJ 10MG/ML (20 ML MDV) ONE; -METOPROLOL TARTRATE 50 MG TAB PO SCH; -NON-FORMULARY DRUG (Mirabegron [Myrbetriq] 25 MG) PO SCH; -PANTOPRAZOLE 40 MG TABLET PO SCH; -PROPOFOL 10 MG/ML 20 ML VIAL IV ONE; -SERTRALINE 100 MG TAB PO SCH; -TEMAZEPAM 30 MG CAP PO SCH; -VITAMIN E (DL,TOCOPHERYL ACET) 400 UNIT CAP PO SCH
--- NOTE | 2018-09-23 15:18 | P.HPCAR ---
History of Present Illness This is Stacey Paiz PA-C dictating an H&P on this patient The patient was interviewed and examined by me as well as by Dr. Connell Case discussed with Dr. Connell and he agrees with the plan of care IMPRESSION / ASSESSMENT: Persistent symptomatic atrial fibrillation, failed drug therapy Hypertension CAD Dyslipidemia PLAN: Proceed with atrial fibrillation ablation with PVI Follow-up BMP tomorrow to monitor renal function HPI Patient is a 78-year-old male with a past medical history of persistent atrial fibrillation, hypertension, CAD, and dyslipidemia who presents for an atrial fibrillation ablation . Patient has symptomatic persistent atrial fibrillation and has had breakthrough episodes of atrial fibrillation with RVR while on antiarrhythmic therapy with amiodarone and on metoprolol for rate control. Patient seen and examined resting comfortably in bed. Denies any recent infections, fevers chills, cough, shortness of breath on exertion, orthopnea or PND, or extremity edema, chest pain, dizziness, syncope. Detailed discussion with family and patient regarding risks of procedure including cardiac puncture and damage to the electrical system of the heart. Also discussed postoperative activity restrictions. Patient and his family verbalized their understanding. ROS: No fevers, chills or rigors, no cough, phlegm or expectoration, no nausea, vomiting or diarrhea, no hematuria, dysuria, no musculoskeletal complaints, no strokes or seizures, no skin lesions or groin infections EXAMINATION: Temperature 97.7F, pulse 56, respirations 20, blood pressure 108/63, oxygen saturation 96% on room air Patient seen and examined resting comfortably in bed Lungs are mildly diminished bilaterally, few scattered crackles at the bases Heart is irregular, normal S1 and S2, no murmurs appreciated No elevated JVD No lower extremity edema Abdomen soft and nontender REVIEW OF LABS, ECG & MEDICAL DATA Most recent labs from 09/06/18 reviewed, WBC 5.0, hemoglobin 13.6, potassium 4.3, BUN 24, creatinine 1.4 Physical Exam Vitals: Vital Signs Temp Pulse Resp BP Pulse Ox 09/23/18 14:19 97.7 F 56 L 20 108/62 96 Past Medical History Past Medical History: CVA/TIA, GERD/Reflux, Hearing Disorder / Deafness, Hyperlipidemia, Osteoarthritis (OA), Prostate Disorder Additional Past Medical History / Comment(s): see Dr Gutierrez H&P,Tinnitus, Hx kidney stones, BPH, LUNG SCARRING. TOLD ON CT SCAN HX "COUPLE MINI STROKES." History of Any Multi-Drug Resistant Organisms: None Reported Past Surgical History: Adenoidectomy, Ear Surgery, Heart Catheterization, Joint Replacement, Tonsillectomy Additional Past Surgical History / Comment(s): Oral surgery, diana knee replacements, partial thyroidectomy, diana cataracts. EGD, COLONOSCOPY cardioversion Past Anesthesia/Blood Transfusion Reactions: No Reported Reaction Smoking Status: Former smoker - Past Family History Father Family Medical History: Congestive Heart Failure (CHF), Hypertension, Myocardial Infarction ([place]) Additional Family Medical History / Comment(s): AT AGE 84-[place] Mother Family Medical History: No Reported History Additional Family Medical History / Comment(s): . Physical Examination Vital Signs Temp Pulse Resp BP Pulse Ox 09/23/18 14:19 97.7 F 56 L 20 108/62 96 Results Current Medications Generic Name Dose Route Start Last Admin Trade Name Freq PRN Reason Stop Dose Admin Sodium Chloride 1,000 mls @ 20 mls/hr 09/23/18 10:18 Saline 0.9% IV .Q24H KALEY
[2018-09-23] MEDS ORDERED: PHENYLEPHRINE-0.9% NACL SYG 1 MG/10 ML SYRINGE ONE (15:20)
[2018-09-23] MEDS ORDERED: LIDOCAINE 1% INJ 10MG/ML (20 ML MDV) ONE ×2 (15:20→15:32)
[2018-09-23] MEDS ORDERED: PROPOFOL 10 MG/ML 20 ML VIAL IV ONE (15:20)
[2018-09-23] MEDS ORDERED: ePHEDrine SULFATE/0.9% NACL/PF 50 MG/5 ML SYRINGE IV ONE (15:20)
[2018-09-23] MEDS ORDERED: HEPARIN SODIUM,PORCINE 10,000 UNIT/ML 1 ML VIAL ONE (15:20)
[2018-09-23] MEDS ORDERED: SUCCINYLCHOLINE CHLORIDE 100 MG/5 ML SYR IV ONE (15:20)
[2018-09-23] MEDS ORDERED: PROTAMINE SULFATE 10 MG/ML 5 ML VIAL IV ONE (15:20)
[2018-09-23] MEDS ORDERED: fentaNYL (PF) 50 MCG/ML 2 ML AMP ONE (15:20)
[2018-09-23] MEDS ORDERED: IV FLUID CONTINUATION 900 ML IV ONE (15:23)
[2018-09-23] MEDS ORDERED: HEPARIN SOD,PORK IN 0.45% NACL 25,000 UNIT in 0.45% NACL 1 250ML.BAG IV ONE (16:02)
[2018-09-23] MEDS ORDERED: LIDOCAINE 1% INJ 10MG/ML (20 ML MDV) SQ ONE (16:04)
[2018-09-23] MEDS ORDERED: HYDROcodone/APAP 5-325MG 1 EACH TAB PO PRN (18:21)
[2018-09-23] MEDS ORDERED: ALPRAZolam 0.5 MG TAB PO PRN (18:23)
[2018-09-23] MEDS ORDERED: HEPARIN SODIUM (1,000 UNIT/ML) 1,000 UNIT in SODIUM CHLORIDE 0.9% 1,000 ML IRRIGATION ONE (18:55)
[2018-09-23] MEDS ORDERED: IOPAMIDOL-370 100ML BTL INJ ONE ×2 (19:32)
[2018-09-23] MEDS ORDERED: SODIUM CHLORIDE 0.9% 1,000 ML IV ONE (19:51)
--- NOTE | 2018-09-23 20:08 | P.PCN ---
Preoperative Diagnosis: Diagnosis Atrial fibrillation, symptomatic, refractory to therapy, persistent, failed antiarrhythmic drug therapy Result Successful pulmonary vein isolation of all veins using cryo-ablation Complete entrance block in all 4 veins confirmed No evidence for phrenic nerve injury Linear ablation of the left atrial roof Linear ablation along the anterior septum Esophageal deflection YES , right-sided esophagus Electrical cardioversion with a synchronized shock across the chest YES / NO Procedure details Patient was brought to the EP lab in a fasting state. Written informed consent was obtained prior to the procedure. Procedure performed under general anesthesia After initial muscle relaxant use, muscle relaxants were not given thereafter in order to assess phrenic nerve during procedure. Patient prepped and draped as per protocol Full cryo-set up with standard preparation of the cryoablation tools done. Femoral Venous access obtained on the right and left groins Venous and arterial Sheaths placed. Diagnostic catheters for the high right atrium, phrenic nerve stimulation and pacing, His bundle, RV and coronary sinus placed Intracardiac echo catheter placed. Long sheath placed in the right atrium Left and right transseptal catheterization performed under intracardiac echo guidance. Intravenous heparin with aCT above 300 Later, catheter positioning and balloon positioning in the left atrium, under intracardiac echo guidance Diagnostic EP study Coronary sinus pacing and recording Baseline measurements QRS 110 ms, [place] interval 202 ms, QT 436 ms AH 73 ms, HV 46 ms Atrial pacing performed from the high right atrium and the coronary sinus RV pacing Transseptal catheterization performed RA pressure 12/6/9 LA pressure 17/4/10 Transseptal catheterization performed with standard sheath. The cryoablation sheath was then placed with an over the wire exchange without any acute complications. All 4 pulmonary veins were isolated in the following sequence: Left superior followed by left inferior followed by right superior followed by right inferior The cryo-ablation balloon was placed at the os of each vein 1.5 mL of IV dye was injected to confirm an occluded vein Goal during cryoablation was to achieve complete occlusion of the pulmonary vein, achieve -30 degrees C at 30 seconds and achieve -40 degrees C at 60 seconds and a time to effect of less than 60-90 seconds, . If not the balloon was repositioned to obtain this result After completion of Cryoblation with durations from 180-240 seconds, entrance block was confirmed with the Attain circular catheter in a roving fashion around the antrum of the pulmonary veins Phrenic nerve pacing was performed from the SVC, right innominate vein area and diaphragm voltage was monitored. Diaphragmatic contractions were also monitored manually for strength of contraction. Parameter goals for each cryo freeze Complete occlusion of the appropriate vein -30 degrees C by 30 seconds -40 degrees C by 60 seconds Minimum between minus 40-55 degrees C Thaw time greater than 10 seconds Balloon visualized by intracardiac echo The esophagus was intubated. Esophageal Temperature monitoring with a CIRCA catheter formed. Esophageal deflection for hypothermia of the esophagus below 30 degrees C Left superior pulmonary vein Complete isolation, entrance block Left inferior pulmonary vein Complete isolation, entrance block Right superior pulmonary vein, during phrenic nerve pacing Complete isolation, entrance block Right inferior pulmonary vein, during phrenic nerve pacing Complete isolation, entrance block At the end of the procedure the Achieve catheter was once again used to check for entrance block Phrenic nerve stimulation was performed to confirm diaphragmatic stimulation the end of the procedure Cine fluoroscopy was performed at the very end of the procedure to confirm movement of both diaphragms with inspiration and expiration At the end of the procedure the patient was extubated Heparin was reversed Venous sheaths were removed and hemostasis assured Procedures performed (PVI - CRYO Ablation) Diagnostic EP study CS pacing and recording Left and right transseptal catheterization 3D mapping) Intracardiac echocardiography Pulmonary vein isolation with transseptal and comprehensive EPS, [id number] Left atrial roof line, +[id number], linear ablation Linear ablation, anterior septum Electrical cardioversion with a synchronized shock across the chest [id number]
--- NOTE | 2018-09-23 20:10 | P.PRLE ---
RE: Nick Vora Dear Juan C Mr. Vora underwent an A. fib ablation for management of drug refractory symptomatically atrial fibrillation Hopefully with the ablation and low-dose amiodarone. Maintains sinus rhythm He will continue ELIQUIS lifelong Thank you for entrusting me with the care of the patient Warm regards Sincerely Manjit Connell
[2018-09-23] MEDS ORDERED: ACETAMINOPHEN IV (For NPO) 1,000 MG in EMPTY BAG 1 BAG IVPB ONE (20:30)
[2018-09-23] MEDS ORDERED: TEMAZEPAM 30 MG CAP PO SCH (21:00)
[2018-09-23] MEDS: METOPROLOL TARTRATE 25 MG TAB PO SCH (21:57)
[2018-09-23] MEDS: APIXABAN 5 MG TAB PO SCH (21:57)
[2018-09-24 08:21] LABS: Calcium 8.7 mg/dL (8.4-10.2); Potassium 3.5 mmol/L (3.5-5.1)
[2018-09-24] MEDS: FUROSEMIDE 20 MG TAB PO SCH (10:33)
[2018-09-24] MEDS: METOPROLOL TARTRATE 25 MG TAB PO SCH ×3 (10:33→20:37)
[2018-09-24] MEDS: PANTOPRAZOLE 40 MG TABLET PO SCH (10:34)
[2018-09-24] MEDS: APIXABAN 5 MG TAB PO SCH ×2 (10:34→20:37)
[2018-09-24] MEDS: AMIODARONE 200 MG TAB PO SCH (10:34)
[2018-09-24] MEDS ORDERED: FUROSEMIDE 20 MG TAB PO STA (10:38)
[2018-09-24] MEDS: ACETAMINOPHEN TAB 325 MG TAB PO PRN ×2 (10:43→22:24)
--- NOTE | 2018-09-24 11:15 | P.PN ---
Subjective Patient is resting comfortably in bed. He did have bleeding from the right groin but this is settled down after the application of pressure. There is no hematoma no bruising no tenderness at this time did the FemStop is often has been off for about an hour He denies any sore throat chest discomfort shortness of breath dizziness lightheadedness or palpitations On examination he is afebrile 97.5F pulse rate in the 60s blood pressure 116/75 mmHg Breath sounds are clear no rhonchi no crackles Heart sounds S1 and S2 are normal no rub no gallop line abdomen is soft Groins have healed well there is no hematoma there is no oozing at this time Impression Persistent atrial fibrillation status post A. fib ablation yesterday Plan Continue bedrest for another 4-6 hours Mulligan catheter removed by tomorrow Hold off on discharge today and observe on the observation unit for any further bleeding Continue ELIQUIS and cardiac medications Objective - Vital Signs Vital signs: Vital Signs Temp 97.5 F L 09/24/18 08:00 Pulse 62 09/24/18 08:00 Resp 17 09/24/18 08:00 BP 101/67 09/24/18 08:00 Pulse Ox 98 09/24/18 08:00 Intake & Output 09/23/18 09/24/18 09/24/18 18:59 06:59 18:59 Intake Total 1084 300 Output Total 1025 Balance 1084 -725 Intake: IV 1084 300 Output: Urine 1025 Other: Voiding Method Indwelling Catheter - Labs CBC & Chem 7: 09/24/18 07:22 Labs: Abnormal Lab Results - Last 24 Hours (Table) 09/24/18 Range/Units 07:22 BUN 24 H (9-20) mg/dL
[2018-09-24] MEDS: ALFUZOSIN HCL 10 MG PO SCH (11:17)
[2018-09-24] MEDS ORDERED: ATORVASTATIN 10 MG TAB PO SCH (15:00)
[2018-09-24] MEDS ORDERED: SERTRALINE 100 MG TAB PO SCH (15:00)
[2018-09-24] MEDS ORDERED: NON-FORMULARY DRUG (Mirabegron [Myrbetriq] 25 MG) PO SCH (15:00)
[2018-09-24] MEDS ORDERED: TEMAZEPAM 30 MG CAP PO PRN (16:37)
[2018-09-25 04:26] VITALS: RESP 18
[2018-09-25 07:16] LABS: HCT 39.7 % (39.0-53.0); HGB 12.7 gm/dL (13.0-17.5); Hypochromasia Slight; MCH 31.6 pg (25.0-35.0); MCHC 31.9 g/dL (31.0-37.0); Macrocytosis Slight; RBC 4.01 m/uL (4.30-5.90); RDW 15.1 % (11.5-15.5); WBC 6.2 k/uL (3.8-10.6)
[2018-09-25 07:26] LABS: Platelet Count 92 k/uL (150-450)
[2018-09-25] MEDS: FUROSEMIDE 20 MG TAB PO SCH (08:25)
[2018-09-25] MEDS: PANTOPRAZOLE 40 MG TABLET PO SCH (08:25)
[2018-09-25] MEDS: APIXABAN 5 MG TAB PO SCH (08:25)
[2018-09-25] MEDS: METOPROLOL TARTRATE 25 MG TAB PO SCH (08:25)
[2018-09-25] MEDS: ALFUZOSIN HCL 10 MG PO SCH (08:26)
[2018-09-25] MEDS: AMIODARONE 200 MG TAB PO SCH (08:26)
[2018-09-25 08:32] VITALS: BP 116/73; PULSE 64; TEMP 97.7
[2018-09-25] MEDS: ACETAMINOPHEN TAB 325 MG TAB PO PRN (08:32)
--- NOTE | 2018-09-25 11:13 | P.DS ---
Providers Attending physician: Manjit Connell Primary care physician: [facility] Course: Patient admitted and examined Presented with increasing shortness of breath for the last several weeks with average activities at work Intermittent recorded chest discomfort No palpitations no recent syncope Last year he had an episode of syncope while sitting on the couch Twelve-lead ECG shows sinus rhythm with ventricular bigeminy PVCs and a left bundle branch block morphology, notching on the downslope of the QRS in lead V1, upright in these to 3 aVF and upright M shaped in lead 1 and mostly negative and aVL. Transition in V3 Normal [place] narrow QRS on sinus beat no epsilon waves Normal hemoglobin normal electrolytes and normal d-dimer normal kidney function Triglycerides 412, HDL 31 3 serial troponins are normal Last year he underwent a stress echo which showed frequent PVCs and no nonsustained ventricular tachycardia on stress ECG. Stress echo did not show any evidence for ischemia I did have a detailed discussion with the patient I would recommend 2-D echo and Doppler study to assess RV and LV function TSH Hemoglobin A1c since he has a family history of diabetes, very strong, onset at an early age I discussed this with Dr. Kelly and recommended coronary angiography rather than stress testing Thereafter outpatient evaluation of syncope and shortness of breath/left bundle PVCs Please see full dictation by Stacey Paiz PA-c Plan - Discharge Summary Discharge Rx Participant: No New Discharge Prescriptions: No Action Temazepam [Restoril] 30 mg PO HS Sertraline HCl [Zoloft] 200 mg PO DAILY@1500 Alfuzosin HCl [Uroxatral ER] 10 mg PO DAILY Mirabegron [Myrbetriq] 25 mg PO DAILY@1500 Cholecalciferol [Vitamin D3 (25 Mcg = 1000 Iu)] 1,000 unit PO DAILY@1500 ALPRAZolam [Xanax] 0.5 mg PO DAILY PRN PRN Reason: Anxiety Apixaban [Eliquis] 5 mg PO BID #60 tab Vitamin E (Dl,Tocopheryl Acet) [Vitamin E] 400 unit PO DAILY@1500 Simvastatin [Zocor] 20 mg PO DAILY@1500 Acetaminophen Tab [Tylenol] 1,000 mg PO HS Amiodarone [Cordarone] 200 mg PO DAILY Butalb/APAP/Caff 50-325-40Mg [Fioricet 50-325-40] 1 tab PO Q4HR PRN PRN Reason: Headache Esomeprazole Magnesium [NexIUM 24Hr] 40 mg PO DAILY Metoprolol Tartrate [Lopressor] 75 mg PO TID 30 Days #90 tab Furosemide [Lasix] 60 mg PO DAILY Discharge Medication List Sertraline HCl [Zoloft] 200 mg PO DAILY@1500 10/30/13 [History] Temazepam [Restoril] 30 mg PO HS 10/30/13 [History] Alfuzosin HCl [Uroxatral ER] 10 mg PO DAILY 01/14/18 [History] ALPRAZolam [Xanax] 0.5 mg PO DAILY PRN 06/10/18 [History] Cholecalciferol [Vitamin D3 (25 Mcg = 1000 Iu)] 1,000 unit PO DAILY@1500 06/10/18 [History] Mirabegron [Myrbetriq] 25 mg PO DAILY@1500 06/10/18 [History] Apixaban [Eliquis] 5 mg PO BID #60 tab 06/12/18 [Rx] Acetaminophen Tab [Tylenol] 1,000 mg PO HS 08/08/18 [History] Simvastatin [Zocor] 20 mg PO DAILY@1500 08/08/18 [History] Vitamin E (Dl,Tocopheryl Acet) [Vitamin E] 400 unit PO DAILY@1500 08/08/18 [History] Amiodarone [Cordarone] 200 mg PO DAILY 08/26/18 [History] Butalb/APAP/Caff 50-325-40Mg [Fioricet 50-325-40] 1 tab PO Q4HR PRN 09/02/18 [History] Esomeprazole Magnesium [NexIUM 24Hr] 40 mg PO DAILY 09/02/18 [History] Metoprolol Tartrate [Lopressor] 75 mg PO TID 30 Days #90 tab 09/04/18 [Rx] Furosemide [Lasix] 60 mg PO DAILY 09/17/18 [History] Follow up Appointment(s)/Referral(s): Brigitte Alvares MD [STAFF PHYSICIAN] - 1 Week (Follow-up with Dr. Alvares/earle in one week) Activity/Diet/Wound Care/Special Instructions: Post EP study - Ablation instructions 1. Keep access sites dry for 2 days. 2. No heavy lifting or straining for 2 days. 3. Avoid bending the hips repeatedly for 2 days. 4. You may go up and down stairs slowly Call if the following is noted 1. Bleeding, increasing swelling or pain at the access sites. 2. Increasing chest discomfort, especially upon taking a deep breath. 3. Increasing shortness of breath, at rest or with exertion. 4. Undue cough / phlegm 5. Difficulty or pain while swallowing. 6. Pain or change in color in the extremities. 7. Fever, chills, rigors. 8. Increasing headache or neurologic symptoms. 9. Dizziness, fainting, palpitations Continue all cardiac medications including eliquis Discharge Disposition: HOME SELF-CARE
== END 2018-09-25 11:50 | disposition home or self-care (01) ==
LOC: CATHEP 12:47 → 1SOBS 20:02 → CATHEP 09-25 11:50
PROVIDERS: ATTEND Internal Medicine Clinical Cardiac Electrophysiology
DX: I48.1 Persistent atrial fibrillation (principal); I10 Essential (primary) hypertension; E78.5 Hyperlipidemia, unspecified; I25.10 Atherosclerotic heart disease of native coronary artery without angina pectoris; Z86.73 Personal history of transient ischemic attack (TIA), and cerebral infarction without residual deficits; J44.9 Chronic obstructive pulmonary disease, unspecified; I34.0 Nonrheumatic mitral (valve) insufficiency; H91.90 Unspecified hearing loss, unspecified ear; M19.90 Unspecified osteoarthritis, unspecified site; K21.9 Gastro-esophageal reflux disease without esophagitis; N40.0 Benign prostatic hyperplasia without lower urinary tract symptoms; Z87.442 Personal history of urinary calculi; Z96.653 Presence of artificial knee joint, bilateral; Z87.891 Personal history of nicotine dependence; Z82.49 Family history of ischemic heart disease and other diseases of the circulatory system; Z79.01 Long term (current) use of anticoagulants; Z79.899 Other long term (current) drug therapy; Z88.5 Allergy status to narcotic agent; Z88.0 Allergy status to penicillin; Z88.8 Allergy status to other drugs, medicaments and biological substances; Z97.2 Presence of dental prosthetic device (complete) (partial)
CPT/HCPCS: 93662; 93609; 93656; 80048; 85347; 85027; C1769 ×4; C1894; C1730 ×2; C1759; C1893; C1733; C1766; C1732; J2720; J1644 ×3; J2001; J3010; J0131; J2370; J0330; J2704; Q9967

== ENCOUNTER → 2019-02-27 | Outpatient (CLI) | payer MEDICARE | END | disposition home or self-care (01) | LOC: LABPAT 15:09 | PROVIDERS: ATTEND Orthopaedic Surgery | DX: Z01.812 Encounter for preprocedural laboratory examination (principal) | CPT/HCPCS: 87070 ==

== ENCOUNTER 2019-03-09 12:28 | Inpatient (IN) | payer MEDICARE ==
[2019-03-02 10:51] VITALS: BMI 35.7
[~2019-03-09 12:28] MED LIST changes: +ACETAMINOPHEN TAB 500 MG TAB PO ONE; +CLINDAMYCIN 900 MG in DEXTROSE 5% IN WATER 50 ML IVPB ONE; +GABAPENTIN 300 MG CAP PO ONE; +LIDOCAINE 1% 20 ML VIAL (10MG/ML) FOR IV START INTRADERMA PRN; +MELOXICAM 7.5 MG TAB PO ONE; +ONDANSETRON 4 MG/2 ML VIAL IVP ONE; -SODIUM CHLORIDE 0.9% 1,000 ML IV SCH; +TRANEXAMIC ACID 1,000 MG in SODIUM CHLORIDE 0.9% 100 ML IVPB ONE; +fentaNYL (PF) 50 MCG/ML 2 ML AMP IV PRN
[2019-03-09] MEDS ORDERED: fentaNYL (PF) 50 MCG/ML 2 ML AMP IVP ONE (13:15)
[2019-03-09] MEDS ORDERED: MIDAZOLAM 2 MG/2 ML VIAL IVP ONE (13:15)
[2019-03-09] MEDS: LACTATED RINGERS 1,000 ML IV SCH ×2 (13:24→23:22)
[2019-03-09] MEDS ORDERED: SENNOSIDES-DOCUSATE SODIUM 1 EACH TAB PO PRN (14:20)
[2019-03-09] MEDS ORDERED: ONDANSETRON 4 MG/2 ML VIAL IVP PRN (14:20)
[2019-03-09] MEDS ORDERED: traMADol 50 MG TAB PO PRN (14:23)
[2019-03-09] MEDS ORDERED: PROPOFOL 10 MG/ML 20 ML VIAL IV ONE (14:50)
[2019-03-09] MEDS ORDERED: ePHEDrine SULFATE/0.9% NACL/PF 50 MG/5 ML SYRINGE IV ONE (14:50)
[2019-03-09] MEDS ORDERED: GLYCOPYRROLATE 0.2 MG/ML 2 ML VIAL ONE (14:50)
[2019-03-09] MEDS ORDERED: fentaNYL (PF) 50 MCG/ML 2 ML AMP ONE (14:50)
[2019-03-09] MEDS ORDERED: SUCCINYLCHOLINE CHLORIDE 100 MG/5 ML SYR IV ONE (14:50)
[2019-03-09] MEDS ORDERED: SODIUM CHLORIDE 0.9% 100 ML BAG ONE (14:50)
[2019-03-09] MEDS ORDERED: ROCURONIUM BROMIDE 10 MG/ML 10 ML VIAL IV ONE (14:50)
[2019-03-09] MEDS ORDERED: NEOSTIGMINE 1 MG/ML 10 ML VIAL ONE (14:50)
[2019-03-09] MEDS ORDERED: ROPIVACAINE 5 MG/ML 30 ML VIAL ONE (14:50)
[2019-03-09] MEDS ORDERED: TRANEXAMIC ACID 1,000 MG/10 ML VIAL ONE (14:50)
[2019-03-09] MEDS ORDERED: PHENYLEPHRINE-0.9% NACL SYG 1 MG/10 ML SYRINGE ONE (14:50)
[2019-03-09] MEDS ORDERED: LACTATED RINGERS 1,000 ML IV ONE ×2 (16:50→18:36)
--- NOTE | 2019-03-09 17:24 | P.OP ---
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 FX solutions shoulder system, humeral cup standard +6 FX solutions shoulder system, Glenosphere baseplate, 24 mm FX solutions shoulder system, locking screw 25 mm FX solutions shoulder system, standard screw, 25 mm x 2, 30 mm FX solutions shoulder system glenosphere, 40 mm, All components were press-fit. Articulation is metal on polyethylene Anesthesia: GETA Surgeon: Juanpablo Barrios Key Entry Operator #1: Monse Aguialr Estimated Blood Loss (ml): 700 Pathology: other (Humeral head) Condition: stable Disposition: PACU Indications for Procedure: This is a patient that presented to my office with severe pain in the shoulder. X-rays demonstrated severe osteoarthritis of the glenohumeral joint of her haile cristina. After failure of conservative treatment, we discussed the surgical and nonsurgical treatment options at length. The patient wishes to proceed with a reverse total shoulder arthroplasty. Patient is aware of the complications of the procedure which include but are not limited to infection, hardware failure, persistent pain, dislocation, and nerve injury. Informed consent was obtained. Operative Findings: The operative findings are consistent with severe osteoarthritis of left shoulder with chronic rotator cuff tear Description of Procedure: The patient was seen in the preoperative area, consent was reviewed, and operative site was marked with a skin marker. An interscalene block was then given by the anesthesia department. Patient was then brought to the operating room and given preoperative antibiotics intravenously. Patient was also given 1 g of Tranexamic acid intravenously. A general anesthetic was administered by the anesthesia department. The patient was then placed in a beachchair position with the bony prominences well-padded and the head secured. The shoulder was then prepped and draped in the usual sterile fashion. A universal timeout was then performed, which confirmed the patient's name, surgical site, ALLERGIES, and consent. A standard deltopectoral approach was performed. The skin and subcutaneous tissue was sharply dissected down to the deltoid fascia. The cephalic vein was then identified and retracted medially. The deltopectoral interval was then utilized to expose the subscapularis tendon. A retractor was then placed under the coracobrachialis tendon retracted medially, and the deltoid. The axillary nerve is palpated and protected throughout the procedure. The subscapularis tendon was then released and retracted medially. The humeral head was then exposed easily. The rotator cuff tendon was found to be completely torn and retracted. After the humeral head was exposed, osteophytes were removed with a Ronguer. Next the humeral stem was prepared. A starter reamer was then placed through the humeral head along the axis of the humeral shaft just lateral to the cory cular surface and just medial to the rotator cuff attachment. Sequential reaming was performed to the appropriate size reamer was inserted to the #between the 3 and 4 on the reamer. Next the intramedullary resection guide was placed on the reamer shaft. It was placed to the appropriate resection depth and angle of 30 of retroversion. Resection guide block was then secured with Steinmann pins. The proximal humerus was then resected. The block was then removed and the humerus was then broached sequentially to the same size as the reamer. After the broaches fully seated, the broach handle was removed and a broach cover was placed protect the humerus while the glenoid was prepared. Next attention was directed to the glenoid. The appropriate retractors were placed around the glenoid and any remaining soft tissues was removed from around the glenoid. After the glenoid was adequately exposed, the threaded glenoid guide was placed onto the glenoid and a 3.2 mm Steinmann pin was inserted in the glenoid at the desired angle and position, ensuring the pin engaged medial cortical wall. Next, the cannulated baseplate reamer was placed over the top of the Steinmann pin. The glenoid was then reamed to the appropriate depth. The glenoid reamer was then removed, leaving the Steinmann pin. The glenoid Kevin plate implant was placed on the end of the cannulated baseplate impactor. The baseplate was then impacted fully into the glenoid. Next the 6.5 mm central screw was then placed which afforded excellent fixation. The 4 peripheral locking screws were then drilled measured and placed. Next the appropriate glenosphere was opened and impacted into the glenoid baseplate. Attention was then redirected to the humerus. Next a trial humeral tray was placed in the shoulder was reduced. Shoulder was taken through a full range of motion and found to be stable. The shoulder was then gently dislocated, and the trial humerus and humeral tray were removed. The final humeral stem was impacted in the final humeral tray was impacted as well. Shoulder was then relocated. Again the shoulder was taken through a range of motion and found to have no instability. Shoulder was then irrigated with pulsatile lavage. The shoulder was then irrigated with Irrisept solution. The soft tissues were then injected with a ropivacaine solution, which consisted of 246.25 mg of ropivacaine, 0.5 mg of epinephrine, 30 mg of Toradol, 80 g of clonidine, and 48.45 mL of sterile water, for a total of 100 mL of fluid injected. A second dose of 1 g of Tranexamic acid was given. The subscapularis was then repaired with #1 Vicryl. The deltopectoral interval was then closed with #1 Vicryl as well. The subcutaneous tissues were closed with 2-0 Vicryl then Dermabond was placed on the skin. A sterile dressing was then applied, the patient was transported to the recovery room in an arm sling in stable condition. The fitness assistant YESSICA Dale was required due the complexity of surgery and the need for a skilled certified surgical first assistant.
[2019-03-09] MEDS: SODIUM CHLORIDE 0.9% 1,000 ML IV SCH ×2 (19:53→23:23)
[2019-03-09] MEDS: CLINDAMYCIN 900 MG in DEXTROSE 5% IN WATER 50 ML IVPB SCH ×2 (19:53)
--- NOTE | 2019-03-09 20:57 | XR ---
EXAMINATION TYPE: XR shoulder limited LT DATE OF EXAM: 03/09/2019 COMPARISON: NONE HISTORY: Postop surgery TECHNIQUE: Single view FINDINGS: There is a left shoulder prosthesis. Components are in anatomic position. IMPRESSION: No complicating process seen.
[2019-03-09] MEDS ORDERED: ALPRAZolam 0.5 MG TAB PO PRN (22:15)
[2019-03-09] MEDS: TEMAZEPAM 15 MG CAP PO SCH (23:20)
[2019-03-09] MEDS: METOPROLOL TARTRATE 50 MG TAB PO SCH (23:20)
[2019-03-10] MEDS: traMADol 50 MG TAB PO PRN ×6 (02:24→23:55)
[2019-03-10 07:13] LABS: Basophils # (A) 0.1 k/uL (0-0.2); Basophils % (A) 1 %; Eosinophils % (A) 0 %; HCT 41.7 % (39.0-53.0); HGB 13.4 gm/dL (13.0-17.5); Lymphocytes # (A) 0.5 k/uL (1.0-4.8); Lymphocytes % (A) 6 %; MCH 32.9 pg (25.0-35.0); MCV 102.5 fL (80.0-100.0); Macrocytosis Slight; Mean Platelet Volume 9.6; Monocytes # (A) 0.6 k/uL (0-1.0); Monocytes % (A) 6 %; Neutrophils # (A) 7.7 k/uL (1.3-7.7); Neutrophils % (A) 86 %; RBC 4.07 m/uL (4.30-5.90); RDW 14.1 % (11.5-15.5); WBC 8.9 k/uL (3.8-10.6)
[2019-03-10 07:15] LABS: Platelet Count 89 k/uL (150-450)
[2019-03-10] MEDS: PANTOPRAZOLE 40 MG TABLET PO SCH (07:51)
[2019-03-10] MEDS: APIXABAN 5 MG TAB PO SCH ×2 (07:51→20:43)
[2019-03-10] MEDS: FUROSEMIDE 20 MG TAB PO SCH (08:28)
[2019-03-10] MEDS: METOPROLOL TARTRATE 50 MG TAB PO SCH ×2 (08:29→20:43)
[2019-03-10] MEDS ORDERED: ALFUZOSIN HCL 10 MG PO SCH (09:00)
[2019-03-10] MEDS ORDERED: HYDROcodone/APAP 5-325MG 1 EACH TAB PO PRN ×2 (09:13)
--- NOTE | 2019-03-10 09:19 | P.DS ---
Providers Date of admission: 03/09/19 12:28 Expected date of discharge: 03/10/19 Attending physician: Juanpablo Barrios Consults: 03/09/19 14:20 Consult Physician Routine Consulting Provider: Juan C Beltran Consult Reason/Comments: medical management and anticoagulation Do you want consulting provider notified?: Yes Primary care physician: Juan C Beltran - Discharge Diagnosis(es) (1) S/p reverse total shoulder arthroplasty Current Visit: Yes Status: Acute (2) Osteoarthritis of left shoulder Current Visit: Yes Status: Acute Hospital Course: This is a 78-year-old male with known history of degenerative arthritis of the left shoulder and chronic rotator cuff tear. The patient presents for evaluation. After discussion and consideration patient elects to proceed with reverse total shoulder arthroplasty. The patient is seen preoperatively by Dr. Barrios and medically cleared for surgery by their primary care physician. Patient is admitted to [facility] on 03/09/2019 for reverse total shoulder arthroplasty. The procedures performed without complication or sequelae. The patient is doing well postoperatively. Labs and vital signs are stable on day of discharge. On day of discharge the patient's shoulder incision is healing well. There is minimal erythema. There is no drainage noted at this time. There is minimal soft tissue swelling to the shoulder. Patient has full hand and wrist motion without difficulty or pain. Neurovascular status to the left upper extremity is intact. Opioid start talking form is reviewed and signed at patient bedside. Patient is discharged home in good condition. Please see med rec for accurate list of home medications. Plan - Discharge Summary Discharge Rx Participant: No New Discharge Prescriptions: New HYDROcodone/APAP 5-325MG [[place] 5-325] 1 - 2 tab PO Q6HR PRN #56 tab PRN Reason: Pain Sennosides [Senokot] 2 tab PO DAILY PRN #60 tablet PRN Reason: Constipation No Action Temazepam [Restoril] 30 mg PO HS Sertraline HCl [Zoloft] 200 mg PO DAILY@1500 Alfuzosin HCl [Uroxatral ER] 10 mg PO DAILY Mirabegron [Myrbetriq] 25 mg PO DAILY@1500 Cholecalciferol [Vitamin D3 (25 Mcg = 1000 Iu)] 1,000 unit PO DAILY@1500 ALPRAZolam [Xanax] 0.5 mg PO DAILY PRN PRN Reason: Anxiety Apixaban [Eliquis] 5 mg PO BID #60 tab Vitamin E (Dl,Tocopheryl Acet) [Vitamin E] 400 unit PO DAILY@1500 Simvastatin [Zocor] 20 mg PO DAILY@1500 Acetaminophen Tab [Tylenol] 1,000 mg PO HS Furosemide [Lasix] 60 mg PO DAILY Metoprolol Tartrate [Lopressor] 50 mg PO BID Pantoprazole Sodium [Protonix] 40 mg PO DAILY Discharge Medication List Sertraline HCl [Zoloft] 200 mg PO DAILY@1500 10/30/13 [History] Temazepam [Restoril] 30 mg PO HS 10/30/13 [History] Alfuzosin HCl [Uroxatral ER] 10 mg PO DAILY 01/14/18 [History] ALPRAZolam [Xanax] 0.5 mg PO DAILY PRN 06/10/18 [History] Cholecalciferol [Vitamin D3 (25 Mcg = 1000 Iu)] 1,000 unit PO DAILY@1500 06/10/18 [History] Mirabegron [Myrbetriq] 25 mg PO DAILY@1500 06/10/18 [History] Apixaban [Eliquis] 5 mg PO BID #60 tab 06/12/18 [Rx] Acetaminophen Tab [Tylenol] 1,000 mg PO HS 08/08/18 [History] Simvastatin [Zocor] 20 mg PO DAILY@1500 08/08/18 [History] Vitamin E (Dl,Tocopheryl Acet) [Vitamin E] 400 unit PO DAILY@1500 08/08/18 [History] Furosemide [Lasix] 60 mg PO DAILY 09/17/18 [History] Metoprolol Tartrate [Lopressor] 50 mg PO BID 03/02/19 [History] Pantoprazole Sodium [Protonix] 40 mg PO DAILY 03/02/19 [History] HYDROcodone/APAP 5-325MG [[place] 5-325] 1 - 2 tab PO Q6HR PRN #56 tab 03/10/19 [Rx] Sennosides [Senokot] 2 tab PO DAILY PRN #60 tablet 03/10/19 [Rx] Follow up Appointment(s)/Referral(s): Juanpablo Barrios DO [Doctor of Osteopathic Medicine] - 2 Weeks Activity/Diet/Wound Care/Special Instructions: Maintain sling at all times except for hygiene. Nonweightbearing to the left upper extremity. Dressing to stay in place for 10 days and may be removed by patient or nurse. May shower with dressing in place. Please follow-up with [facility] and call with any questions or concerns, . Discharge Disposition: HOME SELF-CARE
[2019-03-10 09:21] LABS: Albumin 3.5 g/dL (3.5-5.0); Calcium 8.6 mg/dL (8.4-10.2); Potassium 4.1 mmol/L (3.5-5.1); Total Bilirubin 1.5 mg/dL (0.2-1.3); Total Protein 5.7 g/dL (6.3-8.2)
--- NOTE | 2019-03-10 11:22 | P.CONS ---
History of Present Illness - Reason for Consult Consult date: 03/10/19 Medical management Requesting physician: Juanpablo Barrios - Chief Complaint Osteoarthritis of left shoulder - History of Present Illness Patient is a 78-year-old male admitted to the hospital for left shoulder osteoarthritis status post left total shoulder arthroplasty with Dr. Juanpablo Barrios. Patient is resting comfortably in bed,. Patient denies any acute concerns. Patient denies chest pain, shortness of breath, urinary burning or frequency. Patient states he's been having difficulty following anesthesia. patient was straight cathed following anesthesia on 03/09/2019. Patient states pain has been managed well with oral pain medications. Patient's history of depression, atrial fibrillation with ablation and maintained on eliquis, history of CVA, GERD, hyperlipidemia, hypertension, osteoarthritis of shoulder, BPH. Patient seemed to have a platelet count of 89 on 03/10/2019. Patient has a history of thrombocytopenia and was seen in August 2018 and [facility] and found to have thrombocytopenia. Patient was instructed to follow- up with hematology outpatient, patient did not follow-up. Patient has reports no signs of bleeding for the last several months, patient reports no current bleeding, patient denies hematuria. Plan for discharge today on 03/10/2019. Patient will need to pass voiding trial before being discharged. Review of Systems Please see HPI otherwise unremarkable Past Medical History Past Medical History: Atrial Fibrillation, CVA/TIA, GERD/Reflux, Hearing Disorder / Deafness, Hyperlipidemia, Hypertension, Osteoarthritis (OA), Prostate Disorder Additional Past Medical History / Comment(s): Tinnitus, Hx kidney stones, BPH, LUNG SCARRING. TOLD ON CT SCAN HX "COUPLE MINI STROKES.", diverticulitis, History of Any Multi-Drug Resistant Organisms: None Reported Past Surgical History: Adenoidectomy, Cardiac Ablation, Ear Surgery, Heart Catheterization, Joint Replacement, Tonsillectomy Additional Past Surgical History / Comment(s): Oral surgery, diana knee replacements, partial thyroidectomy, diana cataracts. EGD, COLONOSCOPY, surgery to removed growth from ear and patch hole, Past Anesthesia/Blood Transfusion Reactions: No Reported Reaction Past Psychological History: Anxiety Smoking Status: Former smoker Past Alcohol Use History: None Reported Additional Past Alcohol Use History / Comment(s): quit smoking 1986, started smoking age 17, 3 PPD. Past Drug Use History: None Reported - Past Family History Father Family Medical History: Congestive Heart Failure (CHF), Hypertension, Myocardial Infarction ([place]) Additional Family Medical History / Comment(s): AT AGE 84-[place] Mother Family Medical History: No Reported History Additional Family Medical History / Comment(s): . Medications and Allergies Home Medications Medication Instructions Recorded Confirmed Type Sertraline HCl [Zoloft] 200 mg PO DAILY@1500 10/30/13 03/02/19 History Temazepam [Restoril] 30 mg PO HS 10/30/13 03/02/19 History Alfuzosin HCl [Uroxatral ER] 10 mg PO DAILY 01/14/18 03/02/19 History ALPRAZolam [Xanax] 0.5 mg PO DAILY PRN 06/10/18 03/02/19 History Cholecalciferol [Vitamin D3 (25 1,000 unit PO DAILY@1500 06/10/18 03/02/19 History Mcg = 1000 Iu)] Mirabegron [Myrbetriq] 25 mg PO DAILY@1500 06/10/18 03/02/19 History Apixaban [Eliquis] 5 mg PO BID #60 tab 06/12/18 03/09/19 Rx Acetaminophen Tab [Tylenol] 1,000 mg PO HS 08/08/18 03/02/19 History Simvastatin [Zocor] 20 mg PO DAILY@1500 08/08/18 03/02/19 History Vitamin E (Dl,Tocopheryl Acet) 400 unit PO DAILY@1500 08/08/18 03/02/19 History [Vitamin E] Furosemide [Lasix] 60 mg PO DAILY 09/17/18 03/02/19 History Metoprolol Tartrate [Lopressor] 50 mg PO BID 03/02/19 03/09/19 History Pantoprazole Sodium [Protonix] 40 mg PO DAILY 03/02/19 03/02/19 History Sennosides [Senokot] 2 tab PO DAILY PRN #60 tablet 03/10/19 Rx traMADol HCl [Ultram] 1 - 2 tab PO Q6H PRN #56 tab 03/10/19 Rx Allergies Allergy/AdvReac Type Severity Reaction Status Date / Time acetaminophen [From Lortab] Allergy Unknown Verified 03/09/19 12:48 hydrocodone [From Lortab] Allergy Unknown Verified 03/09/19 12:48 hydrocodone bitartrate Allergy Anaphylaxis Verified 03/09/19 12:48 [From Vicodin] Penicillins Allergy Anaphylaxis Verified 03/09/19 12:48 propoxyphene napsylate Allergy Anaphylaxis Verified 03/09/19 12:48 [From Darvocet-N 100] tamsulosin HCl [From Flomax] Allergy Anaphylaxis Verified 03/09/19 12:48 Physical Exam Vitals: Vital Signs Temp Pulse Resp BP Pulse Ox 03/10/19 10:18 98.1 F 03/10/19 07:08 73 16 112/62 91 L 03/10/19 03:44 15 03/10/19 02:05 97.6 F 73 125/70 92 L 03/10/19 00:00 15 03/09/19 21:05 66 122/76 94 L 03/09/19 20:55 72 121/70 94 L 03/09/19 20:40 71 118/66 96 03/09/19 20:25 72 105/63 97 03/09/19 20:05 70 115/68 95 03/09/19 20:00 18 03/09/19 19:50 70 122/70 94 L 03/09/19 19:35 63 116/70 98 03/09/19 19:20 64 110/67 94 L 03/09/19 19:05 62 116/78 96 03/09/19 18:50 97.7 F 62 18 116/69 96 03/09/19 18:20 65 16 112/63 96 03/09/19 18:05 64 16 110/57 95 03/09/19 17:50 68 16 110/57 94 L 03/09/19 17:35 71 14 112/55 97 03/09/19 13:31 64 16 146/64 96 03/09/19 12:58 97.6 F 65 17 140/80 96 Intake and Output 03/09/19 03/10/19 03/10/19 22:59 06:59 14:59 Intake Total 2306 840 Output Total 700 650 Balance 1606 190 Intake: IV 1006 Intake, IV Titration 840 Amount Sodium Chloride 0.9% 1, 840 000 ml @ 70 mls/hr IV . [id number] [facility] Rx#:[id number] Oral 1300 Output: Urine 650 Uretheral (Mulligan) 650 Estimated Blood Loss 700 Other: Weight 134.5 kg Head normocephalic Neck supple Lungs clear to auscultation bilaterally no wheezing or crackles Heart regular rate and rhythm S1-S2, no rub or gallop Abdomen is soft nontender nondistended positive bowel sounds no hepatosplenomegaly Extremities no edema Neuro alert and orientated to 3 Results CBC & Chem 7: 03/10/19 06:17 03/10/19 06:17 Labs: Abnormal Lab Results - Last 24 Hours (Table) 03/10/19 03/10/19 Range/Units 06:17 06:17 RBC 4.07 L (4.30-5.90) m/uL MCV 102.5 H (80.0-100.0) fL Plt Count 89 L (150-450) k/uL Lymphocytes # 0.5 L (1.0-4.8) k/uL Sodium 136 L (137-145) mmol/L BUN 27 H (9-20) mg/dL Total Bilirubin 1.5 H (0.2-1.3) mg/dL Total Protein 5.7 L (6.3-8.2) g/dL Assessment and Plan Assessment: 1. History of osteoarthritis of left shoulder. Status post left shoulder arthroplasty. Management per orthopedic surgical services. Plan for discharge today 03/10/2019 per orthopedic surgical services 2. Thrombocytopenia. Patient has been seen in the past in August 2018, and was instructed to follow-up with hematology outpatient. Patient did not follow-up. Patient has not having active signs of bleeding. Patient maintained on eliquis for atrial fibrillation. Patient to follow-up with hematology services on discharge. 3. History of atrial fibrillation with ablation. Patient maintained on eliquis. 4. History of BPH. Patient ALLERGIC to Flomax, maintained on home medication of Alfuzosin. Patient is required to pass a voiding trial prior to discharge. 5. History of GERD. 6. History of hyperlipidemia. Home meds continued 7. History of hypertension. Home meds continued DVT prophylaxis eliquis. GI prophylaxis Protonix. Thank you for this consultation. Time with Patient: Greater than 30 (I performed an examination of the patient and discussed their management with the Nurse Practitioner. I have reviewed the Nurse Practitioner's notes and agree with the documented findings and plan of care)
[2019-03-10] MEDS: ALFUZOSIN HCL 10 MG PO SCH (13:43)
[2019-03-10] MEDS: PATIENT'S OWN (Mirabegron [Myrbetriq] 25 MG) PO SCH (14:09)
[2019-03-10] MEDS: VITAMIN E (DL,TOCOPHERYL ACET) 400 UNIT CAP PO SCH (14:10)
[2019-03-10] MEDS: ATORVASTATIN 10 MG TAB PO SCH (14:10)
[2019-03-10] MEDS: CHOLECALCIFEROL 1,000 UNIT TAB PO SCH (14:10)
[2019-03-10] MEDS: SERTRALINE 100 MG TAB PO SCH (14:10)
[2019-03-10] MEDS ORDERED: NON FORMULARY DRUG (Mirabegron [Myrbetriq] 25 MG) PO SCH (15:00)
[2019-03-10] MEDS: SODIUM CHLORIDE 0.9% 1,000 ML IV SCH (16:24)
[2019-03-10] MEDS: MORPHINE SULFATE 2 MG/ML SYRINGE IVP PRN (20:43)
[2019-03-10] MEDS: TEMAZEPAM 15 MG CAP PO SCH (21:49)
[2019-03-10] MEDS: LACTATED RINGERS 1,000 ML IV SCH (21:49)
[2019-03-11] MEDS: SODIUM CHLORIDE 0.9% 1,000 ML IV SCH (03:45)
[2019-03-11] MEDS: MORPHINE SULFATE 2 MG/ML SYRINGE IVP PRN ×2 (03:45→15:49)
[2019-03-11] MEDS: traMADol 50 MG TAB PO PRN ×3 (06:49→20:22)
[2019-03-11] MEDS: FUROSEMIDE 20 MG TAB PO SCH (08:50)
[2019-03-11] MEDS: ALFUZOSIN HCL 10 MG PO SCH (08:50)
[2019-03-11] MEDS: METOPROLOL TARTRATE 50 MG TAB PO SCH ×2 (08:51→20:22)
[2019-03-11] MEDS: APIXABAN 5 MG TAB PO SCH ×2 (08:51→20:21)
[2019-03-11] MEDS: PANTOPRAZOLE 40 MG TABLET PO SCH (08:51)
--- NOTE | 2019-03-11 09:10 | P.PN ---
Subjective Progress Note Date: 03/11/19 Principal diagnosis: Degenerative arthritis left shoulder. This is a 78-year-old male who is status post Reverse total left shoulder arthroplasty. He had some urinary retention last evening. There is a consult pending with urology today. He otherwise has no new complaints or concerns today. Vital signs are stable. Objective - Vital Signs Vital signs: Vital Signs Temp 97.5 F L 03/11/19 07:07 Pulse 69 03/11/19 07:07 Resp 18 03/11/19 07:07 BP 100/57 03/11/19 07:07 Pulse Ox 91 L 03/11/19 07:07 Intake & Output 03/10/19 03/11/19 03/11/19 18:59 06:59 18:59 Intake Total 560 960 Output Total 1280 950 Balance -720 10 Intake: IV 560 Sodium Chloride 0.9% 1, 560 000 ml @ 70 mls/hr IV . [id number] [facility] Rx#:[id number] Intake, IV Titration 840 Amount Sodium Chloride 0.9% 1, 840 000 ml @ 70 mls/hr IV . [id number] [facility] Rx#:[id number] Oral 120 Output: Urine 1280 950 Uretheral (Mulligan) 800 900 Other: Voiding Method Indwelling Catheter # Voids 30 - Exam This is a pleasant 78-year-old male in no acute distress. He is alert and oriented 3. Exam of left shoulder reveals that his optic foam dressing is in place. He has full finger motion without difficulty or pain. No numbness or dulled sensation to the fingers. Neurovascular status to the upper extremities is intact. - Labs CBC & Chem 7: 03/10/19 06:17 03/10/19 06:17 Labs: Abnormal Lab Results - Last 24 Hours (Table) 03/10/19 Range/Units 06:17 Sodium 136 L (137-145) mmol/L BUN 27 H (9-20) mg/dL Total Bilirubin 1.5 H (0.2-1.3) mg/dL Total Protein 5.7 L (6.3-8.2) g/dL Assessment and Plan (1) Osteoarthritis of left shoulder Current Visit: Yes Status: Acute Code(s): M19.012 - PRIMARY OSTEOARTHRITIS, LEFT SHOULDER SNOMED Code(s): 544892789748615 (2) S/p reverse total shoulder arthroplasty Current Visit: Yes Status: Acute Code(s): Z96.619 - PRESENCE OF UNSPECIFIED ARTIFICIAL SHOULDER JOINT SNOMED Code(s): 445670284 Plan: A clinical findings are discussed with the patient. We will we will hold his discharge today secondary to the urinary retention. Plan discharged to home when cleared medically.
[2019-03-11 09:53] LABS: Basophils % (A) 0 %; Eosinophils % (A) 1 %; HCT 38.4 % (39.0-53.0); HGB 12.1 gm/dL (13.0-17.5); Lymphocytes # (A) 0.6 k/uL (1.0-4.8); Lymphocytes % (A) 9 %; MCH 32.4 pg (25.0-35.0); MCHC 31.4 g/dL (31.0-37.0); MCV 103.3 fL (80.0-100.0); Macrocytosis Slight; Mean Platelet Volume 9.2; Monocytes # (A) 0.4 k/uL (0-1.0); Monocytes % (A) 7 %; Neutrophils # (A) 5.5 k/uL (1.3-7.7); Neutrophils % (A) 83 %; RBC 3.72 m/uL (4.30-5.90); RDW 14.1 % (11.5-15.5); WBC 6.7 k/uL (3.8-10.6)
[2019-03-11 09:57] LABS: Platelet Count 75 k/uL (150-450)
[2019-03-11] MEDS ORDERED: LACTULOSE 20 GM/30 ML CUP PO ONE (10:34)
--- NOTE | 2019-03-11 10:41 | P.PN ---
Subjective Progress Note Date: 03/11/19 Patient is a 78-year-old male admitted to the hospital for left shoulder osteoarthritis status post left total shoulder arthroplasty with Dr. Juanpablo Barrios. Patient is resting comfortably in bed,. Patient denies any acute concerns. Patient denies chest pain, shortness of breath, urinary burning or frequency. Patient states he's been having difficulty following anesthesia. patient was straight cathed following anesthesia on 03/09/2019. Patient states pain has been managed well with oral pain medications. Patient's history of depression, atrial fibrillation with ablation and maintained on eliquis, history of CVA, GERD, hyperlipidemia, hypertension, osteoarthritis of shoulder, BPH. Patient seemed to have a platelet count of 89 on 03/10/2019. Patient has a history of thrombocytopenia and was seen in August 2018 and [facility] and found to have thrombocytopenia. Patient was instructed to follow- up with hematology outpatient, patient did not follow-up. Patient has reports no signs of bleeding for the last several months, patient reports no current bleeding, patient denies hematuria. Plan for discharge today on 03/10/2019. Patient will need to pass voiding trial before being discharged. On 03/11/2019 patient continued to have issues with urinary retention. Disc harge on hold cruz catheter did have to be placed throughout the night. Neurology services have been consulted. Cruz catheter has been removed and will continue to monitor postvoid residuals throughout the next 24 hours. Oncology services also consulted to follow-up with patient's history of th rombocytopenia and anticoagulation. Patient still having some increased pain to left shoulder. Also requesting something to assist with bowel movement lactulose has been added. Patient denies chest pain or shortness of breath. Patient denies nausea vomiting diarrhea. Patient denies any urinary burning or frequency Objective - Vital Signs Vital signs: Vital Signs Temp 97.5 F L 03/11/19 07:07 Pulse 69 03/11/19 07:07 Resp 18 03/11/19 07:07 BP 100/57 03/11/19 07:07 Pulse Ox 90 L 03/11/19 09:36 Intake & Output 03/10/19 03/11/19 03/11/19 18:59 06:59 18:59 Intake Total 560 960 Output Total 1280 950 Balance -720 10 Intake: IV 560 Sodium Chloride 0.9% 1, 560 000 ml @ 70 mls/hr IV . [id number] [facility] Rx#:[id number] Intake, IV Titration 840 Amount Sodium Chloride 0.9% 1, 840 000 ml @ 70 mls/hr IV . [id number] [facility] Rx#:[id number] Oral 120 Output: Urine 1280 950 Uretheral (Cruz) 800 900 Other: Voiding Method Indwelling Catheter # Voids 30 - Exam Head normocephalic Neck supple Lungs clear to auscultation bilaterally no wheezing or crackles Heart regular rate and rhythm S1-S2, no rub or gallop Abdomen is soft nontender nondistended positive bowel sounds no hepatosplenomegaly Extremities no edema Neuro alert and orientated to 3 - Labs CBC & Chem 7: 03/11/19 09:23 03/10/19 06:17 Labs: Abnormal Lab Results - Last 24 Hours (Table) 03/11/19 Range/Units 09:23 RBC 3.72 L (4.30-5.90) m/uL Hgb 12.1 L (13.0-17.5) gm/dL Hct 38.4 L (39.0-53.0) % MCV 103.3 H (80.0-100.0) fL Plt Count 75 L (150-450) k/uL Lymphocytes # 0.6 L (1.0-4.8) k/uL Assessment and Plan Assessment: 1. History of osteoarthritis of left shoulder. Status post left shoulder arthroplasty. Management per orthopedic surgical services. Patient is currently postop day 2 2. Thrombocytopenia. Patient has been seen in the past in August 2018, and was instructed to follow-up with hematology outpatient. Patient did not follow-up. Patient has not having active signs of bleeding. Patient maintained on eliquis for atrial fibrillation. Patient to follow-up with hematology services on discharge. Oncology services have been consulted due to history of thrombocytopenia and anticoagulation 3. History of atrial fibrillation with ablation. Patient maintained on eliquis. 4. Urinary retention with History of BPH. Patient ALLERGIC to Flomax, maintained on home medication of Alfuzosin. Patient is required to pass a voiding trial prior to discharge. Neurology services have been consulted. Per nursing staff Cruz catheter has been removed and post void residuals will be continued to be monitored over the next 24 hours 5. History of GERD. 6. History of hyperlipidemia. Home meds continued 7. History of hypertension. Home meds continued DVT prophylaxis eliquis. GI prophylaxis Protonix. Thank you for this consultation. I performed an examination of the patient and discussed their management with the Nurse Practitioner. I have reviewed the Nurse Practitioner's notes and agree with the documented findings and plan of care
--- NOTE | 2019-03-11 11:23 | P.GSCN ---
History of Present Illness Consult date: 03/11/19 Reason for Consult: Urinary retention History of present illness: The patient is a 78-year-old male with a history of arthritis involving the sh oulders who underwent reverse left total shoulder arthroplasty on 03/09/2019. The patient was unable to void following the surgery and was in and out cathed for 600 mL and then 800 mL yesterday. He had been taking alfuzocin prior to admission and this was restarted on 03/10. I was asked to see the patient for further evaluation of the urinary retention. Patient has a history of bladder outflow obstruction and has been treated with alfuzocin since 2006. He says that prior to being admitted he would void frequently in the morning after he takes his diuretic and then every 3-4 hours later in the day. He usually voids once during the night. He thinks that he was able to empty his bladder completely prior to his surgery. He had seen Dr. Rushing in 12/2017 and was started on Myrbetriq due to urgency but it's unclear whether he has continued this. He thinks he may have had an episode of urinary retention in the past but he could not recall any details of this. He has a history of urolithiasis and underwent right pyelolithotomy in the distant past. He also had a left ureteral calculus in 2011 that passed spontaneously. He says that he normally has a bowel movement every day but has not had a bowel movement in the last 4 days. Review of Systems - Constitutional Reports as per HPI - Gastrointestinal Reports constipation, Denies abdominal pain - Genitourinary Reports as per HPI Past Medical History Past Medical History: Atrial Fibrillation, CVA/TIA, GERD/Reflux, Hearing Disorder / Deafness, Hyperlipidemia, Hypertension, Osteoarthritis (OA), Prostate Disorder Additional Past Medical History / Comment(s): Tinnitus, Hx kidney stones, BPH, LUNG SCARRING. TOLD ON CT SCAN HX "COUPLE MINI STROKES.", diverticulitis, History of Any Multi-Drug Resistant Organisms: None Reported Past Surgical History: Adenoidectomy, Cardiac Ablation, Ear Surgery, Heart C atheterization, Joint Replacement, Tonsillectomy Additional Past Surgical History / Comment(s): Oral surgery, diana knee replacements, partial thyroidectomy, diana cataracts. EGD, COLONOSCOPY, surgery to removed growth from ear and patch hole, Past Anesthesia/Blood Transfusion Reactions: No Reported Reaction Past Psychological History: Anxiety Smoking Status: Former smoker Past Alcohol Use History: None Reported Additional Past Alcohol Use History / Comment(s): quit smoking 1986, started smoking age 17, 3 PPD. Past Drug Use History: None Reported - Past Family History Father Family Medical History: Congestive Heart Failure (CHF), Hypertension, Myocardial Infarction ([place]) Additional Family Medical History / Comment(s): AT AGE 84-[place] Mother Family Medical History: No Reported History Additional Family Medical History / Comment(s): . Medications and Allergies Home Medications Medication Instructions Recorded Confirmed Type Sertraline HCl [Zoloft] 200 mg PO DAILY@1500 10/30/13 03/02/19 History Temazepam [Restoril] 30 mg PO HS 10/30/13 03/02/19 History Alfuzosin HCl [Uroxatral ER] 10 mg PO DAILY 01/14/18 03/02/19 History ALPRAZolam [Xanax] 0.5 mg PO DAILY PRN 06/10/18 03/02/19 History Cholecalciferol [Vitamin D3 (25 1,000 unit PO DAILY@1500 06/10/18 03/02/19 History Mcg = 1000 Iu)] Mirabegron [Myrbetriq] 25 mg PO DAILY@1500 06/10/18 03/02/19 History Apixaban [Eliquis] 5 mg PO BID #60 tab 06/12/18 03/09/19 Rx Acetaminophen Tab [Tylenol] 1,000 mg PO HS 08/08/18 03/02/19 History Simvastatin [Zocor] 20 mg PO DAILY@1500 08/08/18 03/02/19 History Vitamin E (Dl,Tocopheryl Acet) 400 unit PO DAILY@1500 08/08/18 03/02/19 History [Vitamin E] Furosemide [Lasix] 60 mg PO DAILY 09/17/18 03/02/19 History Metoprolol Tartrate [Lopressor] 50 mg PO BID 03/02/19 03/09/19 History Pantoprazole Sodium [Protonix] 40 mg PO DAILY 03/02/19 03/02/19 History Sennosides [Senokot] 2 tab PO DAILY PRN #60 tablet 03/10/19 Rx traMADol HCl [Ultram] 1 - 2 tab PO Q6H PRN #56 tab 03/10/19 Rx Allergies Allergy/AdvReac Type Severity Reaction Status Date / Time acetaminophen [From Lortab] Allergy Unknown Verified 03/09/19 12:48 hydrocodone [From Lortab] Allergy Unknown Verified 03/09/19 12:48 hydrocodone bitartrate Allergy Anaphylaxis Verified 03/09/19 12:48 [From Vicodin] Penicillins Allergy Anaphylaxis Verified 03/09/19 12:48 propoxyphene napsylate Allergy Anaphylaxis Verified 03/09/19 12:48 [From Darvocet-N 100] tamsulosin HCl [From Flomax] Allergy Anaphylaxis Verified 03/09/19 12:48 Surgical - Exam Vital Signs Temp Pulse Resp BP Pulse Ox 97.6 F 65 17 140/80 96 03/09/19 12:58 03/09/19 12:58 03/09/19 12:58 03/09/19 12:58 03/09/19 12:58 - General well developed, well nourished, no distress, obese - ENT no hearing loss - Neck no masses, no lymphadectomy - Respiratory normal respiratory effort - Abdomen Abdomen: soft, non tender, no organomegaly - Genitourinary normal penis with no external lesions, testicles non-tender Results - Labs 03/11/19 09:23 03/10/19 06:17 Abnormal Lab Results - Last 24 Hours (Table) 03/11/19 Range/Units 09:23 RBC 3.72 L (4.30-5.90) m/uL Hgb 12.1 L (13.0-17.5) gm/dL Hct 38.4 L (39.0-53.0) % MCV 103.3 H (80.0-100.0) fL Plt Count 75 L (150-450) k/uL Lymphocytes # 0.6 L (1.0-4.8) k/uL Assessment and Plan (1) Postoperative urinary retention Narrative/Plan: The patient's urinary retention following his surgery may in part be related to temporarily stopping his alfuzocin. He has also been constipated recently. A Mulligan catheter was placed yesterday evening and was removed this morning. The patient has voided a small amount and will be monitored with the bladder scan unit. If his postvoid residuals remain acceptably low no further treatment will be necessary. If they remain over 300 or 400 mL then a Mulligan catheter will be reinserted and another voiding trial given in the morning. His constipation will be treated with a Dulcolax suppository. Current Visit: Yes Status: Acute Code(s): N99.89 - OTH POSTPROCEDURAL COMPLICATIONS AND DISORDERS OF SYS; R33.8 - OTHER RETENTION OF URINE SNOMED Code(s): 272207632
--- NOTE | 2019-03-11 13:06 | P.ANPRN ---
Procedure Note - Anesthesia - Nerve Block Performed Left Interscalene Single Time Out Performed: Yes Date of Procedure: 03/09/19 Procedure Start Time: 13:15 Location of Patient: PreOp Indication: Acute Post-Operative Pain, Requested by Surgeon Specifically requested for management of pain by DrWilmer: Juanpablo Barrios Sedation Type: Sedate with meaningful contact maintained Preparation: Sterile Prep Position: Supine Catheter: None Needle Types: Pajunk Needle Gauge: 21 Ultrasound used to visualize needle placement: Yes Ultrasound used to observe medication spread: Yes Injectate: 0.5% Ropivacaine (see comment for volume) (20 cc) Blood Aspirated: No Pain Paresthesia on Injection Noted: No Resistance on Injection: Normal Image Stored and Saved: Yes Events: Uneventful and Well Tolerated
[2019-03-11] MEDS: VITAMIN E (DL,TOCOPHERYL ACET) 400 UNIT CAP PO SCH (13:23)
[2019-03-11] MEDS: PATIENT'S OWN (Mirabegron [Myrbetriq] 25 MG) PO SCH (13:23)
[2019-03-11] MEDS: ATORVASTATIN 10 MG TAB PO SCH (13:23)
[2019-03-11] MEDS: CHOLECALCIFEROL 1,000 UNIT TAB PO SCH (13:23)
[2019-03-11] MEDS: SERTRALINE 100 MG TAB PO SCH (13:23)
--- NOTE | 2019-03-11 16:27 | P.CONS ---
History of Present Illness - Reason for Consult Consult date: 03/11/19 thrombocytopenia Requesting physician: Mary Self - Chief Complaint left shoulder replacement - History of Present Illness Mr. Vora is a very pleasant male who we have been asked to see for thrombocytopenia, plt count 89,000 today. Chart review shows thrombocytopenia since 2013, progressive over the years, over the last year plt <100K. He was seen 09/03, lab work up was unremarkable, CT CAP-done because of wt loss-there was no masses or lesions. (On chart review, earliest weight documented in the chart is from 2013, patient was 146 kg, multiple other weights have patient as low as 129 kg, patient currently is 134 kg). He is doing very well post op, pain is controlled, appetite is good, he is passing gas. Review of Systems 14 point ROS is negative except as stated in HPI Past Medical History Past Medical History: Atrial Fibrillation, CVA/TIA, GERD/Reflux, Hearing Disor herber / Deafness, Hyperlipidemia, Hypertension, Osteoarthritis (OA), Prostate Disorder Additional Past Medical History / Comment(s): Tinnitus, Hx kidney stones, BPH, LUNG SCARRING. 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 EGD, COLONOSCOPY, surgery to removed growth from ear and patch hole, Past Anesthesia/Blood Transfusion Reactions: No Reported Reaction Past Psychological History: Anxiety Smoking Status: Former smoker Past Alcohol Use History: None Reported Additional Past Alcohol Use History / Comment(s): quit smoking 1986, started smoking age 17, 3 PPD. Pt states daily drinking when younger, average 6 beers or 1 pint Past Drug Use History: None Reported - Past Family History Father Family Medical History: Congestive Heart Failure (CHF), Hypertension, Myocardial Infarction (ND) Additional Family Medical History / Comment(s): AT AGE 84-ND Mother Family Medical History: No Reported History Additional Family Medical History / Comment(s): . Medications and Allergies Home Medications Medication Instructions Recorded Confirmed Type Sertraline HCl [Zoloft] 200 mg PO DAILY@1500 10/30/13 03/02/19 History Temazepam [Restoril] 30 mg PO HS 10/30/13 03/02/19 History Alfuzosin HCl [Uroxatral ER] 10 mg PO DAILY 01/14/18 03/02/19 History ALPRAZolam [Xanax] 0.5 mg PO DAILY PRN 06/10/18 03/02/19 History Cholecalciferol [Vitamin D3 (25 1,000 unit PO DAILY@1500 06/10/18 03/02/19 History Mcg = 1000 Iu)] Mirabegron [Myrbetriq] 25 mg PO DAILY@1500 06/10/18 03/02/19 History Apixaban [Eliquis] 5 mg PO BID #60 tab 06/12/18 03/09/19 Rx Acetaminophen Tab [Tylenol] 1,000 mg PO HS 08/08/18 03/02/19 History Simvastatin [Zocor] 20 mg PO DAILY@1500 08/08/18 03/02/19 History Vitamin E (Dl,Tocopheryl Acet) 400 unit PO DAILY@1500 08/08/18 03/02/19 History [Vitamin E] Furosemide [Lasix] 60 mg PO DAILY 09/17/18 03/02/19 History Metoprolol Tartrate [Lopressor] 50 mg PO BID 03/02/19 03/09/19 History Pantoprazole Sodium [Protonix] 40 mg PO DAILY 03/02/19 03/02/19 History Sennosides [Senokot] 2 tab PO DAILY PRN #60 tablet 03/10/19 Rx traMADol HCl [Ultram] 1 - 2 tab PO Q6H PRN #56 tab 03/10/19 Rx Allergies Allergy/AdvReac Type Severity Reaction Status Date / Time acetaminophen [From Lortab] Allergy Unknown Verified 03/09/19 12:48 hydrocodone [From Lortab] Allergy Unknown Verified 03/09/19 12:48 hydrocodone bitartrate Allergy Anaphylaxis Verified 03/09/19 12:48 [From Vicodin] Penicillins Allergy Anaphylaxis Verified 03/09/19 12:48 propoxyphene napsylate Allergy Anaphylaxis Verified 03/09/19 12:48 [From Darvocet-N 100] tamsulosin HCl [From Flomax] Allergy Anaphylaxis Verified 01/20/20 12:48 Physical Exam Vitals: Vital Signs Temp Pulse Pulse Resp BP Pulse Ox 03/11/19 09:36 90 L 03/11/19 07:07 97.5 F L 69 18 100/57 91 L 03/11/19 03:33 18 03/11/19 01:08 98.0 F 70 18 110/58 90 L 03/10/19 22:48 16 03/10/19 19:55 98.6 F 76 18 94/56 91 L 03/10/19 13:41 98 F 72 16 137/73 94 L Intake and Output 03/10/19 03/11/19 03/11/19 22:59 06:59 14:59 Intake Total 120 840 Output Total 1150 900 25 Balance -1030 -60 -25 Intake: Intake, IV Titration 840 Amount Sodium Chloride 0.9% 1, 840 000 ml @ 70 mls/hr IV . [id number] [facility] Rx#:[id number] Oral 120 Output: Urine 1150 900 Uretheral (Mulligan) 800 900 Post Void Residual 25 Other: Voiding Method Indwelling Catheter - Constitutional General appearance: average body habitus, cooperative, no acute distress - EENT Eyes: anicteric sclerae, EOMI ENT: hearing grossly normal, normal oropharynx - Neck Neck: no lymphadenopathy - Respiratory Respiratory: bilateral: CTA - Cardiovascular Rhythm: regular Heart sounds: normal: S1, S2 Abnormal Heart Sounds: no systolic murmur, no diastolic murmur, no rub, no S3 Gallop, no S4 Gallop, no click, no other - Gastrointestinal General gastrointestinal: no absent bowel sounds, no decreased bowel sounds, no distended, no hepatomegaly, no hyperactive bowel sounds, normal bowel sounds, no organomegaly, no rigid, no scaphoid, soft, no splenomegaly, no tenderness, no umbilical hernia, no ventral hernia - Integumentary Integumentary: normal - Neurologic Neurologic: CNII-XII intact - Musculoskeletal Left shoulder anterior incision C/D/I Musculoskeletal: strength equal bilaterally - Psychiatric Psychiatric: A&O x's 3, appropriate affect, intact judgment & insight Results CBC & Chem 7: 03/11/19 09:23 03/10/19 06:17 Labs: Abnormal Lab Results - Last 24 Hours (Table) 03/11/19 Range/Units 09:23 RBC 3.72 L (4.30-5.90) m/uL Hgb 12.1 L (13.0-17.5) gm/dL Hct 38.4 L (39.0-53.0) % MCV 103.3 H (80.0-100.0) fL Plt Count 75 L (150-450) k/uL Lymphocytes # 0.6 L (1.0-4.8) k/uL Assessment and Plan (1) Thrombocytopenia Narrative/Plan: Patient was worked up extensively in August 2018 for thrombocytopenia. No marrow disorder was found. Patient was found to have enlarged spleen. Patient has history that would be consistent with ETOH cirrhosis, LFTs indicate the same. Patient felt to have thrombocytopenia from splenic sequestration secondary to EtOH liver disease. Platelets greater than 50,000, ok to continue on anticoagulation for A. fib. Platelets >50K, ok for orthopedic shoulder procedure Recommendation at this time is for patient to continue to follow with his PCP who will monitor his CBC. If patient's thrombocytopenia progresses or if other abnormalities in his CBC arise pt can be referred to Hematology for further workup and evaluation. This was discussed with the patient. Patient did verbalize understanding the plan. Current Visit: Yes Status: Chronic Priority: Medium Code(s): D69.6 - THROMBOCYTOPENIA, UNSPECIFIED SNOMED Code(s): 865688943
[2019-03-11] MEDS: BUTALB/APAP/CAFF 50-325-40MG TAB PO PRN (16:40)
[2019-03-11 18:50] LABS: Amorphous Sediment,Urine Rare /hpf; Appearance,Urine Cloudy (Clear); Bacteria,Urine Occasional /hpf; Bilirubin,Urine Negative (Negative); Blood,Urine Large (Negative); Color,Urine Light Red; Glucose,Urine (UA) Negative (Negative); Ketones,Urine Negative (Negative); Leukocyte Esterase,Urine Trace (Negative); Mucus,Urine Few /hpf; Nitrite,Urine Negative (Negative); PH, Urine 5.5 (5.0-8.0); Protein,Urine 1+ (Negative); RBC,Urine >182 /hpf (0-5); Specific Gravity,Urine 1.011 (1.001-1.035); Squamous Epithelial Cell,Urine <1 /hpf (0-4); Urobilinogen,Urine <2.0 mg/dL (<2.0); WBC,Urine 10 /hpf (0-5)
[2019-03-11] MEDS: TEMAZEPAM 15 MG CAP PO SCH (20:21)
[2019-03-11] MEDS ORDERED: BISACODYL 10 MG SUPP RECTAL SCH (21:00)
[2019-03-12] MEDS: SODIUM CHLORIDE 0.9% 1,000 ML IV SCH ×2 (04:22→04:32)
[2019-03-12] MEDS: traMADol 50 MG TAB PO PRN ×2 (04:32→12:15)
[2019-03-12] MEDS: LACTATED RINGERS 1,000 ML IV SCH (05:50)
[2019-03-12] MEDS: BUTALB/APAP/CAFF 50-325-40MG TAB PO PRN (05:52)
[2019-03-12 06:42] LABS: Basophils % (A) 0 %; Eosinophils # (A) 0.1 k/uL (0-0.7); Eosinophils % (A) 1 %; HGB 10.9 gm/dL (13.0-17.5); Lymphocytes # (A) 0.7 k/uL (1.0-4.8); Lymphocytes % (A) 12 %; MCH 32.7 pg (25.0-35.0); MCV 102.4 fL (80.0-100.0); Macrocytosis Slight; Mean Platelet Volume 9.5; Monocytes # (A) 0.4 k/uL (0-1.0); Monocytes % (A) 8 %; Neutrophils # (A) 4.4 k/uL (1.3-7.7); Neutrophils % (A) 77 %; RBC 3.32 m/uL (4.30-5.90); RDW 14.2 % (11.5-15.5); WBC 5.7 k/uL (3.8-10.6)
[2019-03-12 06:52] LABS: Platelet Count 82 k/uL (150-450)
[2019-03-12 07:01] LABS: ALT 18 U/L (4-49); AST 27 U/L (17-59); African American GFR (CKD) >90 (>60 ml/min/1.73 sqM); Albumin 2.6 g/dL (3.5-5.0); Alkaline Phosphatase 68 U/L (38-126); Anion Gap 6 mmol/L; Blood Urea Nitrogen 19 mg/dL (9-20); Calcium 7.1 mg/dL (8.4-10.2); Carbon Dioxide 25 mmol/L (22-30); Chloride 105 mmol/L (98-107); Glucose 95 mg/dL (74-99); Non-African American GFR(CKD) 83 (>60 ml/min/1.73 sqM); Potassium 3.6 mmol/L (3.5-5.1); Sodium 136 mmol/L (137-145); Total Bilirubin 1.8 mg/dL (0.2-1.3); Total Protein 4.7 g/dL (6.3-8.2)
[2019-03-12] MEDS: ALFUZOSIN HCL 10 MG PO SCH (08:00)
[2019-03-12] MEDS: PANTOPRAZOLE 40 MG TABLET PO SCH (08:02)
[2019-03-12] MEDS: FUROSEMIDE 20 MG TAB PO SCH (08:02)
[2019-03-12] MEDS: APIXABAN 5 MG TAB PO SCH (08:02)
[2019-03-12] MEDS: METOPROLOL TARTRATE 50 MG TAB PO SCH (08:02)
--- NOTE | 2019-03-12 09:33 | P.PN ---
Subjective Progress Note Date: 03/12/19 Principal diagnosis: Degenerative arthritis left shoulder. This is a 78-year-old male who is status post Reverse total left shoulder arthroplasty. He had some urinary retention. He is fully catheter was removed this morning. He has not yet voided on his own. He otherwise has no new complaints or concerns today. Vital signs are stable. Objective - Vital Signs Vital signs: Vital Signs Temp 98.2 F 03/12/19 07:46 Pulse 73 03/12/19 07:50 Resp 18 03/12/19 07:50 BP 110/65 03/12/19 07:46 Pulse Ox 91 L 03/12/19 07:46 Intake & Output 03/11/19 03/12/19 03/12/19 18:59 06:59 18:59 Intake Total 1040 720 100 Output Total 1132 525 150 Balance -92 195 -50 Intake: IV 560 Sodium Chloride 0.9% 1, 560 000 ml @ 70 mls/hr IV . [id number] [facility] Rx#:[id number] Oral 480 720 100 Output: Urine 870 525 150 Uretheral (Mulligan) 450 150 Post Void Residual 262 Other: Voiding Method Indwelling Catheter Indwelling Catheter # Voids 1 - Exam This is a pleasant 78-year-old male in no acute distress. He is alert and oriented 3. Exam of left shoulder reveals that his optifoam dressing is in place. He has full finger motion without difficulty or pain. No numbness or dulled sensation to the fingers. Neurovascular status to the upper extremities is intact. - Labs CBC & Chem 7: 03/12/19 06:15 03/12/19 06:15 Labs: Abnormal Lab Results - Last 24 Hours (Table) 03/11/19 03/11/19 03/12/19 Range/Units 09:23 18:22 06:15 RBC 3.72 L 3.32 L (4.30-5.90) m/uL Hgb 12.1 L 10.9 L (13.0-17.5) gm/dL Hct 38.4 L 34.0 L (39.0-53.0) % MCV 103.3 H 102.4 H (80.0-100.0) fL Plt Count 75 L 82 L (150-450) k/uL Lymphocytes # 0.6 L 0.7 L (1.0-4.8) k/uL Sodium (137-145) mmol/L Calcium (8.4-10.2) mg/dL Total Bilirubin (0.2-1.3) mg/dL Total Protein (6.3-8.2) g/dL Albumin (3.5-5.0) g/dL Urine Protein 1+ H (Negative) Urine Blood Large H (Negative) Ur Leukocyte Esterase Trace H (Negative) Urine RBC >182 H (0-5) /hpf Urine WBC 10 H (0-5) /hpf Amorphous Sediment Rare H (None) /hpf Urine Bacteria Occasional H (None) /hpf Urine Mucus Few H (None) /hpf 03/12/19 Range/Units 06:15 RBC (4.30-5.90) m/uL Hgb (13.0-17.5) gm/dL Hct (39.0-53.0) % MCV (80.0-100.0) fL Plt Count (150-450) k/uL Lymphocytes # (1.0-4.8) k/uL Sodium 136 L (137-145) mmol/L Calcium 7.1 L (8.4-10.2) mg/dL Total Bilirubin 1.8 H (0.2-1.3) mg/dL Total Protein 4.7 L (6.3-8.2) g/dL Albumin 2.6 L (3.5-5.0) g/dL Urine Protein (Negative) Urine Blood (Negative) Ur Leukocyte Esterase (Negative) Urine RBC (0-5) /hpf Urine WBC (0-5) /hpf Amorphous Sediment (None) /hpf Urine Bacteria (None) /hpf Urine Mucus (None) /hpf Assessment and Plan (1) Osteoarthritis of left shoulder Current Visit: Yes Status: Acute Code(s): M19.012 - PRIMARY OSTEOARTHRITIS, LEFT SHOULDER SNOMED Code(s): 091826065488317 (2) S/p reverse total shoulder arthroplasty Current Visit: Yes Status: Acute Code(s): Z96.619 - PRESENCE OF UNSPECIFIED ARTIFICIAL SHOULDER JOINT SNOMED Code(s): 269443013 Plan: A clinical findings are discussed with the patient. We will we will hold his discharge today secondary to the urinary retention. Plan discharged to home wh en cleared medically.
--- NOTE | 2019-03-12 09:58 | P.PN ---
Subjective Progress Note Date: 03/12/19 Patient is a 78-year-old male admitted to the hospital for left shoulder osteoarthritis status post left total shoulder arthroplasty with Dr. Juanpablo Barrios. Patient is resting comfortably in bed,. Patient denies any acute concerns. Patient denies chest pain, shortness of breath, urinary burning or frequency. Patient states he's been having difficulty following anesthesia. patient was straight cathed following anesthesia on 03/09/2019. Patient states pain has been managed well with oral pain medications. Patient's history of depression, atrial fibrillation with ablation and maintained on eliquis, history of CVA, GERD, hyperlipidemia, hypertension, osteoarthritis of shoulder, BPH. Patient seemed to have a platelet count of 89 on 03/10/2019. Patient has a history of thrombocytopenia and was seen in August 2018 and [facility] and found to have thrombocytopenia. Patient was instructed to follow- up with hematology outpatient, patient did not follow-up. Patient has reports no signs of bleeding for the last several months, patient reports no current bleeding, patient denies hematuria. Plan for discharge today on 03/10/2019. Patient will need to pass voiding trial before being discharged. On 03/11/2019 patient continued to have issues with urinary retention. Disc harge on hold cruz catheter did have to be placed throughout the night. Neurology services have been consulted. Cruz catheter has been removed and will continue to monitor postvoid residuals throughout the next 24 hours. Oncology services also consulted to follow-up with patient's history of th rombocytopenia and anticoagulation. Patient still having some increased pain to left shoulder. Also requesting something to assist with bowel movement lactulose has been added. Patient denies chest pain or shortness of breath. Patient denies nausea vomiting diarrhea. Patient denies any urinary burning or frequency On 03/12/2019 patient is alert and oriented 3. Patient did have Cruz catheter throughout the night this was removed voiding trial will be attempted per urology order. Patient also evaluated by oncology services for chronic thrombocytopenia. No further orders at this time will continue to monitor, continue anticoagulation. At this time patient denies any chest pain or sh ortness of breath. Patient denies nausea vomiting or diarrhea. Patient denies any urinary burning or frequency Objective - Vital Signs Vital signs: Vital Signs Temp 98.2 F 03/12/19 07:46 Pulse 73 03/12/19 07:50 Resp 18 03/12/19 07:50 BP 110/65 03/12/19 07:46 Pulse Ox 91 L 03/12/19 07:46 Intake & Output 03/11/19 03/12/19 03/12/19 18:59 06:59 18:59 Intake Total 1040 720 100 Output Total 1132 525 150 Balance -92 195 -50 Intake: IV 560 Sodium Chloride 0.9% 1, 560 000 ml @ 70 mls/hr IV . [id number] [facility] Rx#:[id number] Oral 480 720 100 Output: Urine 870 525 150 Uretheral (Cruz) 450 150 Post Void Residual 262 Other: Voiding Method Indwelling Catheter Indwelling Catheter # Voids 1 - Exam Head normocephalic Neck supple Lungs clear to auscultation bilaterally no wheezing or crackles Heart regular rate and rhythm S1-S2, no rub or gallop Abdomen is soft nontender nondistended positive bowel sounds no hepatosplenomegaly Extremities no edema Neuro alert and orientated to 3 - Labs CBC & Chem 7: 03/12/19 06:15 03/12/19 06:15 Labs: Abnormal Lab Results - Last 24 Hours (Table) 03/11/19 03/11/19 03/12/19 Range/Units 09:23 18:22 06:15 RBC 3.72 L 3.32 L (4.30-5.90) m/uL Hgb 12.1 L 10.9 L (13.0-17.5) gm/dL Hct 38.4 L 34.0 L (39.0-53.0) % MCV 103.3 H 102.4 H (80.0-100.0) fL Plt Count 75 L 82 L (150-450) k/uL Lymphocytes # 0.6 L 0.7 L (1.0-4.8) k/uL Sodium (137-145) mmol/L Calcium (8.4-10.2) mg/dL Total Bilirubin (0.2-1.3) mg/dL Total Protein (6.3-8.2) g/dL Albumin (3.5-5.0) g/dL Urine Protein 1+ H (Negative) Urine Blood Large H (Negative) Ur Leukocyte Esterase Trace H (Negative) Urine RBC >182 H (0-5) /hpf Urine WBC 10 H (0-5) /hpf Amorphous Sediment Rare H (None) /hpf Urine Bacteria Occasional H (None) /hpf Urine Mucus Few H (None) /hpf 03/12/19 Range/Units 06:15 RBC (4.30-5.90) m/uL Hgb (13.0-17.5) gm/dL Hct (39.0-53.0) % MCV (80.0-100.0) fL Plt Count (150-450) k/uL Lymphocytes # (1.0-4.8) k/uL Sodium 136 L (137-145) mmol/L Calcium 7.1 L (8.4-10.2) mg/dL Total Bilirubin 1.8 H (0.2-1.3) mg/dL Total Protein 4.7 L (6.3-8.2) g/dL Albumin 2.6 L (3.5-5.0) g/dL Urine Protein (Negative) Urine Blood (Negative) Ur Leukocyte Esterase (Negative) Urine RBC (0-5) /hpf Urine WBC (0-5) /hpf Amorphous Sediment (None) /hpf Urine Bacteria (None) /hpf Urine Mucus (None) /hpf Assessment and Plan Assessment: 1. History of osteoarthritis of left shoulder. Status post left shoulder arthroplasty. Management per orthopedic surgical services. Patient is currently postop day 3 2. Thrombocytopenia. Patient has been seen in the past in August 2018, and was instructed to follow-up with hematology outpatient. Patient did not follow-up. Patient has not having active signs of bleeding. Patient maintained on eliquis for atrial fibrillation. Patient to follow-up with hematology services on discharge. Oncology services have been consulted due to history of thrombocytopenia and anticoagulation. Per oncology services, thrombocytopenia secondary to EtOH liver disease. Platelets remain greater than 50,000 okay to continue on anticoagulation. Per oncology continue monitoring her PCP if patient's thrombocytopenia progresses patient can be referred to hematology for further workup 3. History of atrial fibrillation with ablation. Patient maintained on eliquis. 4. Urinary retention with History of BPH. Patient ALLERGIC to Flomax, maintained on home medication of Alfuzosin. Patient is required to pass a voiding trial prior to discharge. Neurology services have been consulted. Per nursing staff Cruz catheter has been removed and post void residuals will be continued to be monitored over the next 24 hours 5. History of GERD. 6. History of hyperlipidemia. Home meds continued 7. History of hypertension. Home meds continued DVT prophylaxis eliquis. GI prophylaxis Protonix. Thank you for this consultation. I performed an examination of the patient and discussed their management with the Nurse Practitioner. I have reviewed the Nurse Practitioner's notes and agree with the documented findings and plan of care
[2019-03-12 15:05] VITALS: BP 133/62; PULSE 71; RESP 18; TEMP 98
[2019-03-12] MEDS ORDERED: CIPROFLOXACIN HCL 250 MG TAB PO SCH (21:00)
== END 2019-03-12 16:26 | disposition home health service (06) | DRG 483 ==
LOC: 2ORMAIN 12:28 → EDSTATUS 14:55 → 4SSUR 17:35
PROVIDERS: ADMIT Orthopaedic Surgery; ATTEND Orthopaedic Surgery
PROC: 0RRK00Z Replacement of Left Shoulder Joint with Reverse Ball and Socket Synthetic Substitute, Open Approach (ICD-10-PCS; principal; 2019-03-09 14:55)
DX: M19.012 Primary osteoarthritis, left shoulder (principal); D69.59 Other secondary thrombocytopenia; E78.5 Hyperlipidemia, unspecified; I10 Essential (primary) hypertension; M75.100 Unspecified rotator cuff tear or rupture of unspecified shoulder, not specified as traumatic; Z96.653 Presence of artificial knee joint, bilateral; K59.00 Constipation, unspecified; F41.9 Anxiety disorder, unspecified; N40.1 Benign prostatic hyperplasia with lower urinary tract symptoms; K70.30 Alcoholic cirrhosis of liver without ascites; K21.9 Gastro-esophageal reflux disease without esophagitis; I48.91 Unspecified atrial fibrillation; Z79.01 Long term (current) use of anticoagulants; Z79.899 Other long term (current) drug therapy; Z82.49 Family history of ischemic heart disease and other diseases of the circulatory system; Z86.73 Personal history of transient ischemic attack (TIA), and cerebral infarction without residual deficits; Z87.891 Personal history of nicotine dependence; Z87.442 Personal history of urinary calculi; Z90.49 Acquired absence of other specified parts of digestive tract; Z90.89 Acquired absence of other organs; Z98.890 Other specified postprocedural states; Z98.42 Cataract extraction status, left eye; Z98.41 Cataract extraction status, right eye; Z88.5 Allergy status to narcotic agent; Z88.0 Allergy status to penicillin; Z88.8 Allergy status to other drugs, medicaments and biological substances; Z88.9 Allergy status to unspecified drugs, medicaments and biological substances
CPT/HCPCS: 64415; 76942; 80053; 81001; 82728; 85025; 88300; 94760

== ENCOUNTER → 2019-09-21 | Outpatient (CLI) | payer MEDICARE ==
--- NOTE | 2019-09-21 18:19 | XR ---
EXAMINATION TYPE: XR lumbar spine 2 or 3V DATE OF EXAM: 09/21/2019 COMPARISON: NONE HISTORY: Fall. Pain. TECHNIQUE: 3 views FINDINGS: Lumbar vertebra have normal alignment. There is mild narrowing of lumbar disc spaces with s purring of the endplates. There is no compression fracture. Posterior elements appear intact. The sac roiliac joints appear intact. IMPRESSION: Spondylotic changes. No fracture seen.
== END | disposition home or self-care (01) ==
LOC: RAD 17:40
PROVIDERS: ATTEND Internal Medicine
DX: M47.816 Spondylosis without myelopathy or radiculopathy, lumbar region (principal)
CPT/HCPCS: 72100

== ENCOUNTER → 2019-10-20 | Outpatient (CLI) | payer MEDICARE ==
--- NOTE | 2019-10-20 09:50 | US ---
EXAMINATION TYPE: US abdomen DATE OF EXAM: 10/20/2019 COMPARISON: CT September 03, 2018. CLINICAL HISTORY: R16.1 SPLENOMEGALY. EXAM MEASUREMENTS: Spleen: 19.6 cm Left Kidney: 10.2 x 4.8 x 5.2 cm 1. Spleen: Enlarged 2. Left Kidney: No hydronephrosis; cyst mid 1.6 x 1.2 x 1.3 cm Limited abdominal ultrasound redemonstrates known splenomegaly measuring 19.6 cm long axis slightly l arger than on recent CT. No concerning intrasplenic mass or surrounding ascites. Technologist identify simple appearing 1.3 cm thin-walled cyst laterally midpole of the left kidney c orresponding to coronal image 78. No hydronephrosis noted. Small nonobstructing renal calculi and CT less well seen on ultrasound images saved. IMPRESSION: Splenomegaly redemonstrated and suspected slightly larger versus recent CT.
== END | disposition home or self-care (01) ==
LOC: RADUSWWP 08:00
PROVIDERS: ATTEND Internal Medicine Hematology & Oncology
DX: R16.1 Splenomegaly, not elsewhere classified (principal); Z88.0 Allergy status to penicillin; Z88.5 Allergy status to narcotic agent; Z88.6 Allergy status to analgesic agent
CPT/HCPCS: 76705

== ENCOUNTER → 2019-11-06 | Outpatient (CLI) | payer MEDICARE ==
--- NOTE | 2019-11-06 16:21 | MR ---
EXAMINATION TYPE: MR lumbar spine wo con DATE OF EXAM: 11/06/2019 COMPARISON: Lumbar spine x-ray September 21, 2019. CT September 03, 2018. HISTORY: Radiculopathy, spinal stenosis, and numbness and tingling per order. Low back pain for 3 mon ths going into both legs per patient. TECHNIQUE: Multiplanar, multisequence imaging of the lumbar spine is performed without IV contrast. FINDINGS: Sagittal images of the lumbar spine show vertebral interval progression with mild to modera te compression type fracture involving the L4 vertebra. There is diffuse low T1 and increased T2 sign al noted. Alignment satisfactory and stable. Multilevel disc desiccation is noted. Disc space height s fairly well maintained. The conus medullaris is normal in position and signal ending mid L1 level s een best axial images. Axial images at T12-L1 and L1-L2 levels show mild/moderate facet degenerative changes bilaterally. Axial images at L2-L3 level shows moderate facet degenerative changes and ligamentum flavum hypertrop hy effacing posterior lateral thecal sac. There is mild broad disc bulge. Bilateral neural foramina a re patent. Axial images at the L3-L4 level shows moderate facet degenerative changes and ligament hypertrophy pl acing posterior lateral thecal sac. There is mild broad disc bulge minimally effacing the anterior th ecal sac. Patent bilateral neural foramina. Axial images at the L4-L5 level show advanced right greater than left facet degenerative changes. The re is broad-based posterior disc protrusion. Spinal canal is preserved. Bilateral neural foramina are patent. Axial images at the L5-S1 level show moderate to advanced facet degenerative changes bilaterally. The re is mild broad disc bulge. Spinal canal is preserved. Bilateral neural foramina are patent. Moderate to severe generalized paraspinal muscular atrophy is present bilaterally. There is partial v isualization of suspected thin-walled cyst left kidney axial image 30. IMPRESSION: Suspect subacute [id number] compression type fracture L4 level. No significant post erior retropulsion. Multilevel degenerative changes are noted as detailed above.
== END | disposition home or self-care (01) ==
LOC: RADMRIMAIN 14:11
PROVIDERS: ATTEND Neurological Surgery
DX: M48.07 Spinal stenosis, lumbosacral region (principal); M47.26 Other spondylosis with radiculopathy, lumbar region; R20.0 Anesthesia of skin; R20.2 Paresthesia of skin
CPT/HCPCS: 72148

== ENCOUNTER 2019-11-19 09:42 | Day surgery (SDC) | payer MEDICARE ==
[2019-11-18 09:06] VITALS: BMI 36.9
[~2019-11-19 09:42] MED LIST changes: -ACETAMINOPHEN TAB 500 MG TAB PO ONE; -CLINDAMYCIN 900 MG in DEXTROSE 5% IN WATER 50 ML IVPB ONE; -GABAPENTIN 300 MG CAP PO ONE; +LACTATED RINGERS 1,000 ML IV SCH; -LIDOCAINE 1% 20 ML VIAL (10MG/ML) FOR IV START INTRADERMA PRN; -MELOXICAM 7.5 MG TAB PO ONE; -ONDANSETRON 4 MG/2 ML VIAL IVP ONE; -TRANEXAMIC ACID 1,000 MG in SODIUM CHLORIDE 0.9% 100 ML IVPB ONE; -fentaNYL (PF) 50 MCG/ML 2 ML AMP IV PRN
[2019-11-19 10:00] VITALS: TEMP 96.6
[2019-11-19] MEDS ORDERED: LIDOCAINE 1% (10MG/ML) FOR IV START INTRADERMA ONE (10:06)
[2019-11-19] MEDS ORDERED: PROPOFOL 10 MG/ML 20 ML VIAL IV ONE (10:31)
[2019-11-19] MEDS ORDERED: LIDOCAINE 1% INJ 10MG/ML (20 ML MDV) ONE (10:31)
--- NOTE | 2019-11-19 10:46 | P.PCN ---
Date of Procedure: 11/19/19 Procedure(s) Performed: BRIEF HISTORY: Patient is a 79-year-old, pleasant, white male scheduled for an upper endoscopy for evaluation of early satiety and progressive weight loss last 1 year duration. His been having the symptoms and lasts approximately 80 pounds in the last 1-1/2 years. He denies any abdominal pain. No nausea vomiting. He was seen by Dr. Reece for splenomegaly and thrombocytopenia.. Also being evaluated for chronic liver disease. PROCEDURE PERFORMED: Esophagogastroduodenoscopy with biopsy. PREOPERATIVE DIAGNOSIS:. Satiety progressive weight loss of 18 months duration. IV sedation per anesthesia. PROCEDURE: After informed consent was obtained, the patient was brought into the endoscopy unit. IV sedation was administered by Anesthesia under continuous monitoring. Initially the Olympus GIF-140 video endoscope was inserted into the mouth. Esophagus intubated without any difficulty. It was gradually advanced into the stomach and duodenum and carefully examined. The bulb and the second part of the duodenum appeared normal. Biopsies were done from the duodenum to rule out celiac disease. The scope at this time was withdrawn to the stomach, adequately insufflated with air, and upon careful examination, mucosa of the antrum, body, cardia and the fundus appeared normal. The scope was then withdrawn into the esophagus. The GE junction was located at 39 cm from the incisors. The esophagus appeared normal. There were no erosions or ulcerations seen , no gastric or esophageal varices seen and biopsies were done from the distal esophagus and the patient tolerated the procedure well. IMPRESSION: 1. Mild antral gastritis and no evidence of extrinsic compression from splenomegaly. 2. No evidence of gastric or esophageal varices. RECOMMENDATIONS: The findings of this examination were discussed with the patient as well as his family. He was advised to follow with the biopsy results. He'll be seen in office in 6 weeks from now to evaluate for chronic liver disease.
[2019-11-19 10:52] VITALS: RESP 16
[2019-11-19 12:02] VITALS: BP 131/79; PULSE 77
== END 2019-11-19 11:22 | disposition home or self-care (01) ==
LOC: ORWHC2ENDO 09:42
PROVIDERS: ATTEND Internal Medicine Gastroenterology
DX: K29.50 Unspecified chronic gastritis without bleeding (principal); K21.00 Gastro-esophageal reflux disease with esophagitis, without bleeding; K76.9 Liver disease, unspecified; R16.1 Splenomegaly, not elsewhere classified; I48.91 Unspecified atrial fibrillation; I10 Essential (primary) hypertension; E78.5 Hyperlipidemia, unspecified; H91.90 Unspecified hearing loss, unspecified ear; Z87.891 Personal history of nicotine dependence; Z87.442 Personal history of urinary calculi; Z86.73 Personal history of transient ischemic attack (TIA), and cerebral infarction without residual deficits; Z88.0 Allergy status to penicillin; Z79.01 Long term (current) use of anticoagulants; Z79.899 Other long term (current) drug therapy
CPT/HCPCS: 88305; 43239; J2001; J2704

== ENCOUNTER → 2019-12-25 | Outpatient (CLI) | payer MEDICARE ==
[2019-12-25 16:49] LABS: Basophils % (A) 0 %; Eosinophils # (A) 0.2 k/uL (0-0.7); Eosinophils % (A) 2 %; HCT 45.7 % (39.0-53.0); HGB 13.8 gm/dL (13.0-17.5); Hypochromasia Slight; Lymphocytes % (A) 14 %; MCH 30.6 pg (25.0-35.0); MCHC 30.2 g/dL (31.0-37.0); MCV 101.3 fL (80.0-100.0); Macrocytosis Slight; Mean Platelet Volume 8.2; Monocytes # (A) 0.5 k/uL (0-1.0); Monocytes % (A) 6 %; Neutrophils # (A) 5.5 k/uL (1.3-7.7); Neutrophils % (A) 77 %; Platelet Count 183 k/uL (150-450); RBC 4.51 m/uL (4.30-5.90); RDW 14.3 % (11.5-15.5); WBC 7.2 k/uL (3.8-10.6)
[2019-12-26 00:23] LABS: % Iron Saturation 24.63 (15.00-50.00); African American GFR (CKD) 83.2 (60.0-200.0); Albumin 4.2 g/dL (3.80-4.90); Albumin/Globulin Ratio 2.21 (1.60-3.17); Calcium 9.1 mg/dL (8.7-10.3); Globulin 1.9 g/dL (1.6-3.3); Non-African American GFR(CKD) 71.8 (60.0-200.0); Potassium 4.8 mmol/L (3.5-5.5); Total Protein 6.1 g/dL (6.2-8.2)
[2019-12-26 00:31] LABS: Ferritin 203.3 ng/mL (22.0-322.0)
[2019-12-26 04:05] LABS: Hepatitis B Surface Antigen Non-Reactive (Non-Reactive); Hepatitis C IgG Antibody Non-Reactive (Non-Reactive)
[2019-12-26 09:35] LABS: Ceruloplasmin 27.5 mg/dL (20.0-60.0)
== END | disposition home or self-care (01) ==
LOC: LABWHC1 16:16
PROVIDERS: ATTEND Internal Medicine Gastroenterology
DX: K76.9 Liver disease, unspecified (principal)
CPT/HCPCS: 36415; 80053; 82103; 82390; 82728; 83540; 83550; 85025; 86038; 86803; 87340

== ENCOUNTER → 2020-07-06 | Outpatient (CLI) | payer MEDICARE ==
[2020-07-06 14:20] LABS: Basophils # (A) 0.02 X 10*3/uL (0.00-0.10); Basophils % (A) 0.4 %; Eosinophils # (A) 0.14 X 10*3/uL (0.04-0.35); Eosinophils % (A) 2.6 %; HCT 43.4 % (39.6-50.0); HGB 13.3 g/dL (13.0-17.0); Lymphocytes # (A) 0.99 X 10*3/uL (0.90-5.00); Lymphocytes % (A) 18.2 %; MCH 30.9 pg (27.0-32.0); MCHC 30.6 g/dL (32.0-37.0); MCV 100.9 fL (80.0-97.0); Mean Platelet Volume 10.9 fL (9.5-12.2); Monocytes # (A) 0.48 X 10*3/uL (0.20-1.00); Monocytes % (A) 8.8 %; Neutrophils % (A) 69.6 %; Platelet Count 153 X 10*3/uL (140-440); WBC 5.45 X 10*3/uL (4.50-10.00)
[2020-07-06 16:56] LABS: African American GFR (CKD) 74.1 (60.0-200.0); Albumin 4.2 g/dL (3.80-4.90); Anion Gap 5.3 mmol/L (4.00-12.00); BUN/Creat Ratio 20.91 Ratio (12.00-20.00); Calcium 9.4 mg/dL (8.7-10.3); Carbon Dioxide 31.7 mmol/L (21.6-31.8); Globulin 2.1 g/dL (1.6-3.3); Potassium 4.9 mmol/L (3.5-5.5); Total Bilirubin 0.7 mg/dL (0.2-1.2); Total Protein 6.3 g/dL (6.2-8.2)
== END | disposition home or self-care (01) ==
LOC: LABWHC1 08:09
PROVIDERS: ATTEND Internal Medicine Gastroenterology
DX: K76.9 Liver disease, unspecified (principal)
CPT/HCPCS: 36415; 80053; 81596; 82105; 83516; 85025

== ENCOUNTER → 2020-09-01 | Outpatient (CLI) | payer MEDICARE ==
--- NOTE | 2020-09-01 19:11 | CT ---
EXAMINATION TYPE: CT chest wo con DATE OF EXAM: 09/01/2020 COMPARISON: 09/03/2018 HISTORY: SOB CT DLP: 522.8 mGycm, Automated exposure control for dose reduction was used. CONTRAST: None TECHNIQUE: Axial images were obtained at 1 mm thick sections at 10 mm intervals. This will limit po rtions of the examination which may not be visualized within the [id number]. Images were obtained in the supine view. FINDINGS: Left lobe thyroid may be somewhat prominent but only partially visualized. There may be a 0.4 cm nodule within the mid left lung. Series 4 image 15. Additional 0.5 cm nodule m ay be within the right middle lobe at the same level. Some punctate nodules may be the peripheral low er lung pardo. No enlarged mediastinal or hilar adenopathy is evident. The ascending aorta diameter at the level o f the main pulmonary artery is 4.0 cm. The main pulmonary artery diameter at the bifurcation is 4.3 cm. Correlate for pulmonary hypertension Limited CT sections are obtained through the upper abdomen. Abdomen is essentially unremarkable. Abdo men is limited due to beam hardening artifact. There is some limitation in the upper thorax due to le ft shoulder prosthesis. IMPRESSIONS: 1. Limited high resolution CT chest. There are findings suggestive for underlying nodularity within t he lungs which appears to be a change from the [address] chest, with contrast if n ot contraindicated, can be performed for additional evaluation. 2. Clinical correlation recommended for pulmonary hypertension.
== END | disposition home or self-care (01) ==
LOC: RADCTMAIN 07:40
PROVIDERS: ATTEND Internal Medicine
DX: R06.02 Shortness of breath (principal)
CPT/HCPCS: 71250

== ENCOUNTER → 2021-01-23 | Outpatient (CLI) | payer MEDICARE ==
--- NOTE | 2021-01-23 09:13 | US ---
EXAMINATION TYPE: US liver DATE OF EXAM: 01/23/2021 COMPARISON: CT, US CLINICAL HISTORY: K74.69 cirrhosis of liver. Takes multiple medications per patient. Patient had crea m with coffee this morning 3 hours prior to abdominal US; HT 6'2, WT 291lb. EXAM MEASUREMENTS: Liver Length: 21.9 cm Gallbladder Wall: organ not well seen due to non NPO status and intercostal scanning on large body h abitus patient CBD: 0.4 cm Right Kidney: 10.6 x 6.9 x 5.5 cm Pancreas: hyperechoic Liver: enlarged liver, hyperechoic to right renal cortex, and attenuated posteriorly suggests fatty liver; hepatic vein flow is noted to IVC and Portal Vein flow is to liver. Gallbladder: not well seen Evidence for sonographic Bermudez's sign: yes, tender here CBD: wnl Right Kidney: mid pole shadowing calcification is noted = 0.5 x 0.5 x 0.3cm; hypoechoic, extracapsul ar crescent shaped fluid area noted inferiorly suggests sonographic "sweat sign" for renal failure. IMPRESSION: Hepatomegaly with underlying fatty hepatic infiltration. Nonobstructing right renal calculi.
[2021-01-23 09:52] LABS: Basophils % (A) 0 %; Eosinophils # (A) 0.1 k/uL (0-0.7); Eosinophils % (A) 2 %; HGB 13.7 gm/dL (13.0-17.5); Lymphocytes # (A) 0.8 k/uL (1.0-4.8); Lymphocytes % (A) 12 %; MCH 30.6 pg (25.0-35.0); MCHC 31.8 g/dL (31.0-37.0); MCV 96.2 fL (80.0-100.0); Mean Platelet Volume 8.5; Monocytes # (A) 0.4 k/uL (0-1.0); Monocytes % (A) 6 %; Neutrophils # (A) 5.2 k/uL (1.3-7.7); Neutrophils % (A) 79 %; Platelet Count 144 k/uL (150-450); RBC 4.47 m/uL (4.30-5.90); RDW 14.6 % (11.5-15.5); WBC 6.6 k/uL (3.8-10.6)
[2021-01-23 10:03] LABS: Albumin 3.8 g/dL (3.5-5.0); Calcium 8.9 mg/dL (8.4-10.2); Potassium 4.1 mmol/L (3.5-5.1); Total Bilirubin 1.3 mg/dL (0.2-1.3); Total Protein 6.6 g/dL (6.3-8.2)
== END | disposition home or self-care (01) ==
LOC: RADUSWWP 07:57
PROVIDERS: ATTEND Internal Medicine Gastroenterology
DX: K74.69 Other cirrhosis of liver (principal); K76.0 Fatty (change of) liver, not elsewhere classified; R16.0 Hepatomegaly, not elsewhere classified; N20.0 Calculus of kidney
CPT/HCPCS: 36415; 76705; 80053; 82105; 85025

== ENCOUNTER → 2021-01-26 | Outpatient (CLI) | payer MEDICARE ==
--- NOTE | 2021-01-26 16:08 | CT ---
EXAMINATION TYPE: CT chest w con DATE OF EXAM: 01/26/2021 COMPARISON: CT chest 09/01/2020 HISTORY: Lung nodule. CT DLP: 548.8 mGycm Automated exposure control for dose reduction was used. CONTRAST: CT scan of the chest is performed with IV Contrast, patient injected with 80ml mL of Isovue 300. FINDINGS: LUNGS: The lungs are showing similar appearance, there is a lung nodule in the right lung base, axial image 43 the subpleural location measuring approximately 9 to 10 mm similar to prior exam. Emphysema tous changes are present within the lungs. There are bandlike areas of increased attenuation at the l ben bases. There is no pleural effusion or pneumothorax seen. The tracheobronchial tree is patent. MEDIASTINUM: There are no greater than 1 cm hilar or mediastinal lymph nodes. No pericardial effusi on is seen. Pulmonary artery is dilated as noted on prior exam. AORTA: Root of the aorta is 4.7 cm, proximal ascending aorta 4.3 cm, proximal descending aorta 3.5 c m, there are atheromatous changes, aorta at the level of the hiatus is 3.1 cm. OTHER: There is a low-attenuation focus within the liver at the level of the dome which is indetermi pura measuring approximately 17 mm. Left axillary nodes are present without definite enlargement, asy mmetric on the left as compared to right. There is splenomegaly. Postop change noted to the left shou lder, there is streak artifact present. IMPRESSION: Lung nodule at the right lung base. Left upper lobe lung nodule was not seen on today's exam, follow-up suggested. Aortic aneurysm, correlate for pulmonary artery hypertension. Splenomegaly , nonenlarged extensive left axillary nodes, indeterminate liver lesion
== END | disposition home or self-care (01) ==
LOC: RADCTMAIN 11:29
PROVIDERS: ATTEND Internal Medicine
DX: R91.1 Solitary pulmonary nodule (principal); I71.2 Thoracic aortic aneurysm, without rupture; R16.1 Splenomegaly, not elsewhere classified
CPT/HCPCS: 82565; 84520; 71260; 36415; Q9967

== ENCOUNTER → 2021-05-01 | Outpatient (CLI) | payer MEDICARE ==
--- NOTE | 2021-05-01 09:55 | US ---
EXAMINATION TYPE: US liver DATE OF EXAM: 05/01/2021 COMPARISON: US/ CT Chest CLINICAL HISTORY: K74.69 cirrhosis of liver. Cirrhosis EXAM MEASUREMENTS: Liver Length: 18.7 cm CBD: 0.5 cm Right Kidney: 10.2 x 4.5 x 5.5 cm Pancreas: wnl, tail obscured by overlying bowel gas Liver: Enlarged, heterogeneous Gallbladder: Unable to visualize, possibly surgically removed Evidence for sonographic Bermudez's sign: No CBD: wnl Right Kidney: No evidence of hydro, possible calculi lower pole= 0.6 cm IMPRESSION: Hepatomegaly with underlying fatty hepatic infiltration.
== END | disposition home or self-care (01) ==
LOC: RADUSWWP 08:48
PROVIDERS: ATTEND Internal Medicine Gastroenterology
DX: K74.69 Other cirrhosis of liver (principal); R16.0 Hepatomegaly, not elsewhere classified; K76.0 Fatty (change of) liver, not elsewhere classified
CPT/HCPCS: 76705

== ENCOUNTER → 2021-06-13 | Outpatient (CLI) | payer MEDICARE ==
[2021-06-13 17:33] LABS: INR 1.1 (<1.2); Partial Thromboplastin Time 26.8 sec (22.0-30.0); Prothrombin Time 11.3 sec (9.0-12.0)
[2021-06-14 00:11] LABS: Appearance,Urine Clear (Clear); Bilirubin,Urine Negative (Negative); Blood,Urine Negative (Negative); Color,Urine Yellow (Yellow); Ketones,Urine Negative (Negative); Nitrite,Urine Negative (Negative); Specific Gravity,Urine 1.016 (1.001-1.030); Urobilinogen,Urine 0.2 (0.2,1.0)
[2021-06-14 00:21] LABS: African American GFR (CKD) 62.5 (60.0-200.0); Albumin 4.4 g/dL (3.8-4.9); Albumin/Globulin Ratio 1.91 (1.60-3.17); Anion Gap 13.3 mmol/L (10.00-18.00); BUN/Creat Ratio 14.6 Ratio (12.00-20.00); Blood Urea Nitrogen 18.4 mg/dL (9.0-27.0); Calcium 9.2 mg/dL (8.7-10.3); Carbon Dioxide 26.6 mmol/L (20.0-27.5); Globulin 2.3 g/dL (1.6-3.3); Non-African American GFR(CKD) 53.9 (60.0-200.0); Potassium 4.6 mmol/L (3.5-5.5); Total Bilirubin 0.6 mg/dL (0.30-1.20); Total Protein 6.8 g/dL (6.2-8.2)
[2021-06-14 00:45] LABS: Bacteria,Urine None Seen /HPF (None Seen); Calcium Oxalate Crystals,Urine Present /LPF (None Seen)
[2021-06-14 00:57] LABS: HCT 48.1 % (39.6-50.0); HGB 14.5 g/dL (13.0-17.0); MCH 30.6 pg (27.0-32.0); MCHC 30.1 g/dL (32.0-37.0); MCV 101.5 fL (80.0-97.0); Mean Platelet Volume 10.9 fL (9.5-12.2); NRBC Per 100 WBC 0 /100 WBCS (0.0-0.0); Platelet Count 171 X 10*3/uL (140-440); RBC 4.74 X 10*6/uL (4.40-5.60); RDW 15.2 % (11.5-14.5)
== END | disposition home or self-care (01) ==
LOC: LABPAT 14:24
PROVIDERS: ATTEND Orthopaedic Surgery
DX: Z01.812 Encounter for preprocedural laboratory examination (principal)
CPT/HCPCS: 36415; 80053; 81001; 85027; 85610; 85730; 87070

== ENCOUNTER 2021-06-19 05:40 | Day surgery (SDC) | payer MEDICARE ==
[2021-06-15 09:35] VITALS: BMI 34.3
[~2021-06-19 05:40] MED LIST changes: +CLINDAMYCIN 900 MG in DEXTROSE 5% IN WATER 50 ML IVPB PRN; -LACTATED RINGERS 1,000 ML IV SCH
[2021-06-19] MEDS ORDERED: LACTATED RINGERS 1,000 ML IV SCH (05:55)
[2021-06-19] MEDS ORDERED: HYDROmorphone 0.5 MG/0.5 ML SYRINGE IVP PRN ×4 (05:55→06:58)
[2021-06-19] MEDS ORDERED: DEXAMETHASONE SOD PHOSPHATE 4 MG/ML 1 ML VIAL IV ONE (05:55)
[2021-06-19] MEDS ORDERED: MIDAZOLAM 2 MG/2 ML VIAL IV PRN (05:55)
[2021-06-19] MEDS ORDERED: LIDOCAINE 1% (10MG/ML) FOR IV START INTRADERMA PRN (05:55)
[2021-06-19] MEDS ORDERED: ONDANSETRON 4 MG/2 ML VIAL IVP ONE (05:55)
[2021-06-19] MEDS ORDERED: ACETAMINOPHEN TAB 500 MG TAB PO STA (06:29)
[2021-06-19] MEDS ORDERED: GABAPENTIN 300 MG CAP PO STA (06:30)
[2021-06-19] MEDS ORDERED: TRANEXAMIC ACID IN NACL,ISO-OS 1,000 MG in SALINE 1 100ML.BAG IVPB PRN (06:30)
[2021-06-19] MEDS: MELOXICAM 7.5 MG TAB PO SCH (06:57)
[2021-06-19] MEDS ORDERED: ONDANSETRON 4 MG/2 ML VIAL IVP PRN (06:58)
[2021-06-19] MEDS ORDERED: SENNOSIDES-DOCUSATE SODIUM 1 EACH TAB PO PRN (06:58)
[2021-06-19] MEDS ORDERED: PROPOFOL 10 MG/ML 20 ML VIAL IV ONE (06:59)
[2021-06-19] MEDS ORDERED: TRANEXAMIC ACID IN NACL,ISO-OS 1,000 MG/100 ML BAG ONE (06:59)
[2021-06-19] MEDS ORDERED: PHENYLEPHRINE-0.9% NACL SYG 1,000 MCG/10 ML SYRINGE ONE (06:59)
[2021-06-19] MEDS ORDERED: ROPIVACAINE 5 MG/ML 30 ML VIAL ONE (06:59)
[2021-06-19] MEDS ORDERED: fentaNYL (PF) 50 MCG/ML 2 ML AMP ONE (06:59)
[2021-06-19] MEDS ORDERED: ePHEDrine 50 MG/ML 1 ML VIAL ONE (06:59)
[2021-06-19] MEDS ORDERED: DEXAMETHASONE SOD PHOSPHATE 4 MG/ML 1 ML VIAL ONE (06:59)
[2021-06-19] MEDS ORDERED: SUCCINYLCHOLINE CHLORIDE VIAL 200 MG/10 ML VIAL IV ONE (06:59)
[2021-06-19] MEDS ORDERED: LIDOCAINE 2% INJ 20 MG/ML (2 ML VIAL) ONE (06:59)
[2021-06-19] MEDS ORDERED: traMADol 50 MG TAB PO PRN ×2 (07:01)
--- NOTE | 2021-06-19 08:16 | P.OP ---
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 Last week he felt something pop in his shoulder his x-rays demonstrate a disassociation of his humeral bearing. Also it appeared that his glenoid had migrated superiorly it was loose. After discussing the surgical nonsurgical treatment options with him at length, I recommended a revision of the reverse shoulder arthroplasty with conversion to hemiarthroplasty. Informed consent was obtained. Operative Findings: The operative findings are consistent with a loose glenoid component and a disassociation of the humeral bearing. The humeral component was well fixed. Description of Procedure: The patient was seen in the preoperative area, consent was reviewed, and operative site was marked with a skin marker. Patient was then brought to the operating room and given preoperative antibiotics intravenously. Patient was also given 1 g of Tranexamic acid intravenously. A general anesthetic was administered by the anesthesia department. A Mulligan catheter was placed by the nursing staff. The patient was then placed in a beachchair position with the bony prominences well-padded and the head secured. The shoulder was then prepped and draped in the usual sterile fashion. A universal timeout was then performed, which confirmed the patient's name, surgical site, ALLERGIES, and consent. A standard deltopectoral approach was performed. The skin and subcutaneous tissue was sharply dissected down to the deltoid fascia. The cephalic vein was then identified and retracted medially. The deltopectoral interval was then utilized. A retractor was then placed under the coracobrachialis tendon retracted medially, and the deltoid. The axillary nerve is palpated and protected throughout the procedure. The humeral head was then exposed easily. There is moderate amount of clear fluid which was cultured 2. The rotator cuff tendon was found to be completely torn and retracted. After the humerus was exposed, the humeral bearing was found to be disassociated. This was easily removed. Next attention was directed to the glenoid. The appropriate retractors were placed around the glenoid and any remaining soft tissues was removed from around the glenoid. The glenoid was found to be grossly loose, easily removed. The glenoid was then inspected and found to have severe bone loss and was not able to sustain a revision of the glenoid component. The determination that a hemiarthroplasty was needed was made at this time. Next a trial humeral tray was placed in the shoulder was reduced. Shoulder was taken through a full range of motion and found to be stable. The shoulder was then gently dislocated, and the trial humerus and humeral tray were removed. The final humeral stem was impacted in the final humeral tray was impacted as well. Shoulder was then relocated. Again the shoulder was taken through a range of motion and found to have no instability. Shoulder was then irrigated with pulsatile lavage. The shoulder was then irrigated with Irrisept solution. A second dose of 1 g of Tranexamic acid was given. The subscapularis was then repaired with #1 Vicryl. The deltopectoral interval was then closed with #1 Vicryl as well. The subcutaneous tissues were closed with 2-0 Vicryl then Dermabond was placed on the skin. A sterile dressing was then applied, the patient was transported to the recovery room in an arm sling in stable condition. The autopsy assistant YESSICA Dale was required due the complexity of surgery and the need for a skilled baking assistant.
[2021-06-19] MEDS ORDERED: LACTATED RINGERS 1,000 ML IV ONE (09:00)
--- NOTE | 2021-06-19 10:42 | P.ANPRN ---
Procedure Note - Anesthesia - Nerve Block Performed Left Interscalene Single Time Out Performed: Yes ([id number]) Date of Procedure: 06/19/21 Procedure Start Time: :43 Procedure Stop Time: 06:51 Location of Patient: PreOp Indication: Dx/Pain Location (Left shoulder), Requested by Surgeon Specifically requested for management of pain by : Juanpablo Barrios Sedation Type: Sedate with meaningful contact maintained Preparation: Sterile Prep Position: Supine Catheter: None Needle Types: Pajunk Needle Gauge: 21 Ultrasound used to visualize needle placement: Yes Ultrasound used to observe medication spread: Yes Injectate: 0.5% Ropivacaine (see comment for volume) (30 cc + decadron 4mg) Blood Aspirated: No Pain Paresthesia on Injection Noted: No Resistance on Injection: Normal Image Stored and Saved: Yes Events: Uneventful and Well Tolerated
--- NOTE | 2021-06-19 10:43 | XR ---
Left shoulder HISTORY: Postop Single frontal view of the left shoulder, correlation to prior exam 03/09/2019 There is been interval revision of patient's left shoulder arthroplasty. There is anatomic alignment in this single view. Acromial clavicular joint shows arthropathy. Lucencies present within the soft t issues. Left lung show some possible atelectatic change. IMPRESSION: Orthopedic follow-up. Additional findings above. Correlate for pneumonia versus atelectas is.
[2021-06-19] MEDS: SODIUM CHLORIDE 0.9% 1,000 ML IV SCH (14:54)
[2021-06-19] MEDS: CLINDAMYCIN 900 MG in DEXTROSE 5% IN WATER 50 ML IVPB SCH ×4 (16:58→22:03)
[2021-06-20] MEDS: SODIUM CHLORIDE 0.9% 1,000 ML IV SCH ×2 (04:47→11:59)
--- NOTE | 2021-06-20 08:29 | P.DS ---
Providers Expected date of discharge: 06/20/21 Attending physician: Juanpablo Barrios Consults: 06/19/21 06:58 Consult Physician Routine Consulting Provider: Juan C Beltran Consult Reason/Comments: medical management Do you want consulting provider notified?: Yes Primary care physician: Juan C Beltran - Discharge Diagnosis(es) (1) History of reverse total replacement of left shoulder joint Current Visit: Yes Status: Acute (2) S/P shoulder hemiarthroplasty Current Visit: Yes Status: Acute Hospital Course: This is a 80-year-old male who underwent left reverse total shoulder arthroplasty 2 years ago. The patient presented for evaluation as an outpatient after he felt a pop in the left shoulder and x-rays revealed disassociation of the humeral bearing and superior migration and loosening of the glenoid. After discussion and consideration patient elects to proceed with revision left total shoulder arthroplasty with conversion to hemiarthroplasty. The patient is seen preoperatively by Dr. Barrios and medically cleared for surgery by their [facility] physician. Patient is admitted to [facility] on 06/19/2021 for revision left total shoulder arthroplasty with conversion to hemiarthroplasty. The procedure is performed without complication or sequelae. The patient is doing well postoperatively. Labs and vital signs are stable on day of discharge. On day of discharge the patient's shoulder incision is healing well. There is minimal erythema. There is no drainage noted at this time. There is minimal soft tissue swelling to the shoulder. Patient has full hand and wrist motion without difficulty or pain. Neurovascular status to the left upper extremity is intact. Patient is discharged home in good condition. Please see med rec for accurate list of home medications. Plan - Discharge Summary Discharge Rx Participant: No New Discharge Prescriptions: New Sennosides [Senokot] 2 tab PO DAILY PRN #60 tablet PRN Reason: Constipation traMADol HCl [Ultram] 1 - 2 tab PO Q6H PRN #56 tab PRN Reason: Pain No Action Temazepam [Restoril] 30 mg PO HS Sertraline HCl [Zoloft] 200 mg PO DAILY@1500 Mirabegron [Myrbetriq] 25 mg PO DAILY@1500 Cholecalciferol [Vitamin D3 (25 Mcg = 1000 Iu)] 1,000 unit PO DAILY@1500 Apixaban [Eliquis] 5 mg PO BID #60 tab Vitamin E (Dl,Tocopheryl Acet) [Vitamin E (400 Iu = 180 mg)] 400 unit PO DAILY@1500 Acetaminophen Tab [Tylenol] 1,000 mg PO HS Furosemide [Lasix] 40 mg PO DAILY Metoprolol Tartrate [Lopressor] 25 mg PO BID Pantoprazole Sodium [Protonix] 40 mg PO DAILY Alfuzosin HCl [Uroxatral] 10 mg PO DAILY traMADol HCl [Ultram] 50 - 100 mg PO Q6HR PRN PRN Reason: Pain Discharge Medication List Sertraline HCl [Zoloft] 200 mg PO DAILY@1500 10/30/13 [History] Temazepam [Restoril] 30 mg PO HS 10/30/13 [History] Cholecalciferol [Vitamin D3 (25 Mcg = 1000 Iu)] 1,000 unit PO DAILY@1500 06/10/18 [History] Mirabegron [Myrbetriq] 25 mg PO DAILY@1500 06/10/18 [History] Apixaban [Eliquis] 5 mg PO BID #60 tab 06/12/18 [Rx] Acetaminophen Tab [Tylenol] 1,000 mg PO HS 08/08/18 [History] Vitamin E (Dl,Tocopheryl Acet) [Vitamin E (400 Iu = 180 mg)] 400 unit PO DAILY@1500 08/08/18 [History] Furosemide [Lasix] 40 mg PO DAILY 09/17/18 [History] Metoprolol Tartrate [Lopressor] 25 mg PO BID 03/02/19 [History] Pantoprazole Sodium [Protonix] 40 mg PO DAILY 03/02/19 [History] Alfuzosin HCl [Uroxatral] 10 mg PO DAILY 11/18/19 [History] traMADol HCl [Ultram] 50 - 100 mg PO Q6HR PRN 06/14/21 [History] Sennosides [Senokot] 2 tab PO DAILY PRN #60 tablet 06/19/21 [Rx] traMADol HCl [Ultram] 1 - 2 tab PO Q6H PRN #56 tab 06/19/21 [Rx] Follow up Appointment(s)/Referral(s): Juanpablo Barrios DO [Doctor of Osteopathic Medicine] - 2 Weeks Activity/Diet/Wound Care/Special Instructions: Maintain arm sling at all times except for hygiene. Rest and ice the left shoulder. Please take medications as prescribed and resume Eliquis. Please follow up with [facility] and call with any questions or concerns, . Discharge Disposition: HOME SELF-CARE
[2021-06-20] MEDS: MELOXICAM 7.5 MG TAB PO SCH (08:36)
[2021-06-20] MEDS ORDERED: APIXABAN 5 MG TAB PO SCH (09:00)
[2021-06-20 09:43] VITALS: BP 119/67; PULSE 78; RESP 18; TEMP 97.6
[2021-06-20 11:08] LABS: Basophils % (A) 0 %; Eosinophils % (A) 0 %; HCT 43.5 % (39.0-53.0); HGB 12.9 gm/dL (13.0-17.5); Hypochromasia Moderate; Lymphocytes # (A) 0.8 k/uL (1.0-4.8); Lymphocytes % (A) 10 %; MCHC 29.8 g/dL (31.0-37.0); MCV 100.7 fL (80.0-100.0); Macrocytosis Slight; Mean Platelet Volume 8.8; Monocytes # (A) 0.5 k/uL (0-1.0); Monocytes % (A) 6 %; Neutrophils # (A) 6.4 k/uL (1.3-7.7); Neutrophils % (A) 82 %; Platelet Count 142 k/uL (150-450); RBC 4.32 m/uL (4.30-5.90); RDW 14.3 % (11.5-15.5); WBC 7.7 k/uL (3.8-10.6)
[2021-06-20 11:16] LABS: ALT 13 U/L (4-49); AST 23 U/L (17-59); African American GFR (CKD) 71 (>60 ml/min/1.73 sqM); Albumin 3.3 g/dL (3.5-5.0); Albumin/Globulin Ratio 1.3; Alkaline Phosphatase 106 U/L (38-126); Anion Gap 7 mmol/L; Blood Urea Nitrogen 21 mg/dL (9-20); Calcium 8.6 mg/dL (8.4-10.2); Carbon Dioxide 29 mmol/L (22-30); Chloride 100 mmol/L (98-107); Globulin 2.5 g/dL; Glucose 110 mg/dL (74-99); Non-African American GFR(CKD) 62 (>60 ml/min/1.73 sqM); Potassium 3.8 mmol/L (3.5-5.1); Sodium 136 mmol/L (137-145); Total Bilirubin 0.9 mg/dL (0.2-1.3); Total Protein 5.8 g/dL (6.3-8.2)
== END 2021-06-20 12:20 | disposition home or self-care (01) ==
LOC: OR 05:40 → 4SSUR 08:32 → OR 06-20 12:20
PROVIDERS: ATTEND Orthopaedic Surgery
DX: T84.098A Other mechanical complication of other internal joint prosthesis, initial encounter (principal); Y79.2 Prosthetic and other implants, materials and accessory orthopedic devices associated with adverse incidents; Z79.01 Long term (current) use of anticoagulants; G89.18 Other acute postprocedural pain; I50.9 Heart failure, unspecified; I11.0 Hypertensive heart disease with heart failure; E78.5 Hyperlipidemia, unspecified; I49.9 Cardiac arrhythmia, unspecified; N40.0 Benign prostatic hyperplasia without lower urinary tract symptoms; R42 Dizziness and giddiness; K21.9 Gastro-esophageal reflux disease without esophagitis; Z88.8 Allergy status to other drugs, medicaments and biological substances; Z79.899 Other long term (current) drug therapy
CPT/HCPCS: 23472; 64415; 76942; 80053; 85025; 87070; 87205; 87075; 73020; C1776; J2250; J0330; J1100; J2405; J3010; J2795; J2370; J2704; J2001

== ENCOUNTER 2021-07-01 18:05 | Inpatient (IN) | payer MEDICARE ==
--- NOTE | 2021-07-01 19:43 | ED ---
General Adult HPI - General Chief complaint: Recheck/Abnormal Lab/Rx Stated complaint: Infection, Post Surgical Time Seen by Provider: 07/01/21 19:41 Source: patient, family Mode of arrival: ambulatory Limitations: no limitations - History of Present Illness Initial comments: Patient presents to the ED with his for evaluation. Patient had left shou lder surgery performed by Dr. Barrios (orthopedic surgery) 12 days ago. Per , the patient developed "soreness" to his left anterior shoulder wound 3 days ago, and so they made an appointment with the patient's PCP who removed the patient's wound dressing and discovered that it appeared infected. Per , the patient had an appointment with Dr. Barrios yesterday, and he was started on a course of Bactrim at that time. Per , the patient has had 3 doses of the Bactrim since then. Per , Dr. Barrios instructed her to bring the patient to the ED if his infection had not improved by this evening, and so she has brought the patient here. Per , Dr. Barrios instructed her to have the ER call him if she brought him to the ED. states that the patient has had minimal purulent drainage from his wound at times. Patient denies having significant pain. Patient denies fever or chills, headache, focal neuro deficit, chest pain or pressure, dyspnea, cough or cold symptoms, dizziness, abdominal pain, nausea vomiting, or any other symptoms or complaints. - Related Data Home Medications Medication Instructions Recorded Confirmed Sertraline HCl [Zoloft] 200 mg PO DAILY@1500 10/30/13 06/19/21 Temazepam [Restoril] 30 mg PO 10/30/13 06/19/21 Cholecalciferol [Vitamin D3 (25 1,000 unit PO DAILY@1500 06/10/18 06/19/21 Mcg = 1000 Iu)] Mirabegron [Myrbetriq] 25 mg PO DAILY@1500 06/10/18 06/19/21 Acetaminophen Tab [Tylenol] 1,000 mg PO HS 08/08/18 06/19/21 Vitamin E (Dl,Tocopheryl Acet) 400 unit PO DAILY@1500 08/08/18 06/19/21 [Vitamin E (400 Iu = 180 mg)] Furosemide [Lasix] 40 mg PO DAILY 09/17/18 06/19/21 Metoprolol Tartrate [Lopressor] 25 mg PO BID 03/02/19 06/19/21 Pantoprazole Sodium [Protonix] 40 mg PO DAILY 03/02/19 06/19/21 Alfuzosin HCl [Uroxatral] 10 mg PO DAILY 11/18/19 06/19/21 traMADol HCl [Ultram] 50 - 100 mg PO Q6HR PRN 06/14/21 06/19/21 Previous Rx's Medication Instructions Recorded Apixaban [Eliquis] 5 mg PO BID #60 tab 06/12/18 Sennosides [Senokot] 2 tab PO DAILY PRN #60 tablet 06/19/21 traMADol HCl [Ultram] 1 - 2 tab PO Q6H PRN #56 tab 06/19/21 Allergies Allergy/AdvReac Type Severity Reaction Status Date / Time hydrocodone [From Lortab] Allergy SEVERE Verified 07/01/21 19:01 ABDOMINAL AND TROUBLE BREATHING hydrocodone bitartrate Allergy Anaphylaxis Verified 07/01/21 19:01 [From Vicodin] Penicillins Allergy Anaphylaxis Verified 07/01/21 19:01 propoxyphene napsylate Allergy Anaphylaxis Verified 07/01/21 19:01 [From Darvocet-N 100] tamsulosin HCl [From Flomax] Allergy Anaphylaxis Verified 07/01/21 19:01 Review of Systems ROS Statement: Those systems with pertinent positive or pertinent negative responses have been documented in the HPI. ROS Other: All systems not noted in ROS Statement are negative. Past Medical History Past Medical History: CVA/TIA, GERD/Reflux, Hearing Disorder / Deafness, Hyperlipidemia, Osteoarthritis (OA), Prostate Disorder Additional Past Medical History / Comment(s): Tinnitus, Hx kidney stones, BPH, LUNG SCARRING. 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 EGD, COLONOSCOPY cardioversion Past Anesthesia/Blood Transfusion Reactions: No Reported Reaction Past Psychological History: Anxiety Smoking Status: Former smoker Past Alcohol Use History: None Reported Past Drug Use History: None Reported - Past Family History Father Family Medical History: Congestive Heart Failure (CHF), Hypertension, Myocardial Infarction (MA) Additional Family Medical History / Comment(s): AT AGE 84-MA Mother Family Medical History: No Reported History Additional Family Medical History / Comment(s): . General Exam Limitations: no limitations General appearance: alert, in no apparent distress Head exam: Present: atraumatic, normocephalic Eye exam: Present: normal appearance, EOMI ENT exam: Present: mucous membranes moist Neck exam: Present: other (Trachea is in midline) Respiratory exam: Present: normal lung sounds bilaterally. Absent: respiratory distress, wheezes, rales, rhonchi, stridor Cardiovascular Exam: Present: normal rhythm, tachycardia, normal heart sounds, other (Normal radial pulses bilaterally) GI/Abdominal exam: Present: soft. Absent: distended, tenderness, guarding Extremities exam: Present: other (Left anterior shoulder surgical wound has surrounding induration, erythema and tenderness; no crepitation or purulent drainage is appreciated). Absent: calf tenderness Neurological exam: Present: alert, oriented X3. Absent: motor sensory deficit Psychiatric exam: Present: normal affect, normal mood Skin exam: Present: warm, dry Course Vital Signs 07/01/21 07/01/21 18:57 21:00 Temperature 98.1 F Pulse Rate 120 H 110 H Respiratory 20 18 Rate Blood Pressure 103/66 111/74 O2 Sat by Pulse 88 L 92 L Oximetry - Reevaluation(s) Reevaluation #1: 07/01/21 19:54 Case and H&P were discussed with Dr. Barrios (orthopedic surgery). He recommends/accepts hospital admission. He recommends consulting medicine, as well as infectious disease. He recommends keeping the patient NPO after midnight. He has no further recommendations at this time. Medical Decision Making - Lab Data Result diagrams: 07/01/21 21:00 07/01/21 21:00 - Radiology Data Left shoulder x-rays: No fracture. No change compared to old exam. Disposition Clinical Impression: Wound infection after surgery Disposition: ADMITTED IP TO THIS [facility] Condition: Stable Is patient prescribed a controlled substance at d/c from ED?: No Time of Disposition: 20:05
[2021-07-01] MEDS ORDERED: NALOXONE 0.4 MG/ML 1 ML VIAL IV PRN (20:05)
--- NOTE | 2021-07-01 20:21 | XR ---
EXAMINATION TYPE: XR shoulder complete LT DATE OF EXAM: 07/01/2021 COMPARISON: 06/19/2021 HISTORY: Shoulder wound infection TECHNIQUE: 3 views FINDINGS: There is left shoulder prosthesis. Components appear in anatomic position. No fracture seen . No sign of loosening. IMPRESSION: No fracture. No change compared to old exam.
[2021-07-01 21:14] LABS: Basophils % (A) 0 %; Eosinophils # (A) 0.3 k/uL (0-0.7); Eosinophils % (A) 3 %; HCT 44.5 % (39.0-53.0); HGB 13.6 gm/dL (13.0-17.5); Hypochromasia Slight; Lymphocytes # (A) 0.8 k/uL (1.0-4.8); Lymphocytes % (A) 9 %; MCH 29.9 pg (25.0-35.0); MCHC 30.5 g/dL (31.0-37.0); MCV 97.9 fL (80.0-100.0); Mean Platelet Volume 8.7; Monocytes # (A) 0.4 k/uL (0-1.0); Monocytes % (A) 4 %; Neutrophils # (A) 7.2 k/uL (1.3-7.7); Neutrophils % (A) 83 %; Platelet Count 198 k/uL (150-450); RBC 4.54 m/uL (4.30-5.90); RDW 13.9 % (11.5-15.5); WBC 8.7 k/uL (3.8-10.6)
[2021-07-01 21:28] LABS: Albumin 3.9 g/dL (3.5-5.0); Calcium 8.7 mg/dL (8.4-10.2); Total Bilirubin 1.1 mg/dL (0.2-1.3); Total Protein 6.4 g/dL (6.3-8.2)
[2021-07-01 21:30] LABS: INR 1.1 (<1.2); Partial Thromboplastin Time 27.5 sec (22.0-30.0); Prothrombin Time 11.5 sec (9.0-12.0)
[2021-07-02] MEDS ORDERED: SENNOSIDES 8.6 MG TAB PO PRN (09:08)
[2021-07-02 09:17] LABS: Basophils # (A) 0.03 X 10*3/uL (0.00-0.10); Basophils % (A) 0.4 %; Eosinophils # (A) 0.14 X 10*3/uL (0.04-0.35); Eosinophils % (A) 1.9 %; HGB 12.8 g/dL (13.0-17.0); Immature Grans, Automated 1.2 %; Lymphocytes % (A) 11.9 %; MCH 30.5 pg (27.0-32.0); MCHC 31.2 g/dL (32.0-37.0); MCV 97.6 fL (80.0-97.0); Mean Platelet Volume 10.9 fL (9.5-12.2); Monocytes # (A) 0.51 X 10*3/uL (0.20-1.00); Monocytes % (A) 6.7 %; NRBC Per 100 WBC 0 /100 WBCS (0.0-0.0); Neutrophils # (A) 5.89 X 10*3/uL (1.80-7.70); Neutrophils % (A) 77.9 %; Platelet Count 188 X 10*3/uL (140-440); RDW 14.5 % (11.5-14.5); WBC 7.56 X 10*3/uL (4.50-10.00)
--- NOTE | 2021-07-02 10:28 | P.CONS ---
History of Present Illness - Reason for Consult Consult date: 07/02/21 Medical management Requesting physician: Juanpablo Jovel - Chief Complaint Shoulder wound infection - History of Present Illness This is a 80-year-old male patient who presented to the ER with concerns of infection to left shoulder. Patient recently underwent orthopedic surgery [address] jovel. Patient started to develop some soreness presented to PCP where was discovered that it. Infected patient was started on Bactrim patient bowel had followed with Dr. billingsley and was instructed to come to ER for further evaluation. Patient has a past medical history for CVA, GERD, hearing disorder, osteoarthritis, prostate disorder, anxiety and ex-smoker. X-ray of left shoulder was completed showing no fracture no change compared to old exam. On examination surgical wound site erythematous and warm. At this time infectious disease services have been consulted. Patient has been admitted under surgical services. Patient denies chest pain or shortness of breath. Patient denies nausea vomiting or diarrhea. Patient denies any urinary burning or frequency. Review of Systems Please refer to HPI otherwise unremarkable Past Medical History Past Medical History: CVA/TIA, GERD/Reflux, Hearing Disorder / Deafness, Hyperlipidemia, Osteoarthritis (OA), Prostate Disorder Additional Past Medical History / Comment(s): Tinnitus, Hx kidney stones, BPH, LUNG SCARRING. 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 EGD, COLONOSCOPY cardioversion Past Anesthesia/Blood Transfusion Reactions: No Reported Reaction Past Psychological History: Anxiety Smoking Status: Former smoker Past Alcohol Use History: None Reported Past Drug Use History: None Reported - Past Family History Father Family Medical History: Congestive Heart Failure (CHF), Hypertension, Myocardial Infarction ([place]) Additional Family Medical History / Comment(s): AT AGE 84-[place] Mother Family Medical History: No Reported History Additional Family Medical History / Comment(s): . Medications and Allergies Home Medications Medication Instructions Recorded Confirmed Type Sertraline HCl [Zoloft] 200 mg PO DAILY@1500 10/30/13 07/01/21 History Temazepam [Restoril] 30 mg PO HS 10/30/13 07/01/21 History Cholecalciferol [Vitamin D3 (25 1,000 unit PO DAILY@1500 06/10/18 07/01/21 History Mcg = 1000 Iu)] Mirabegron [Myrbetriq] 25 mg PO DAILY@1500 06/10/18 07/01/21 History Apixaban [Eliquis] 5 mg PO BID #60 tab 06/12/18 07/01/21 Rx Acetaminophen Tab [Tylenol] 1,000 mg PO HS 08/08/18 07/01/21 History Vitamin E (Dl,Tocopheryl Acet) 400 unit PO DAILY@1500 08/08/18 07/01/21 History [Vitamin E (400 Iu = 180 mg)] Furosemide [Lasix] 40 mg PO DAILY 09/17/18 07/01/21 History Alfuzosin HCl [Uroxatral] 10 mg PO DAILY 11/18/19 07/01/21 History traMADol HCl [Ultram] 50 - 100 mg PO Q6HR PRN 06/14/21 07/01/21 History Sennosides [Senokot] 2 tab PO DAILY PRN #60 tablet 06/19/21 07/01/21 Rx Metoprolol Tartrate [Lopressor] 25 mg PO BID 07/01/21 07/01/21 History Pantoprazole [Protonix] 40 mg PO DAILY 07/01/21 07/01/21 History Sulfamethox-Tmp 800-160Mg [Bactrim 1 tab PO Q12HR 07/01/21 07/01/21 History DS 800-160 mg] Allergies Allergy/AdvReac Type Severity Reaction Status Date / Time hydrocodone [From Lortab] Allergy SEVERE Verified 07/01/21 22:28 ABDOMINAL AND TROUBLE BREATHING hydrocodone bitartrate Allergy Anaphylaxis Verified 07/01/21 22:28 [From Vicodin] Penicillins Allergy Anaphylaxis Verified 07/01/21 22:28 propoxyphene napsylate Allergy Anaphylaxis Verified 07/01/21 22:28 [From Darvocet-N 100] tamsulosin HCl [From Flomax] Allergy Anaphylaxis Verified 07/01/21 22:28 Physical Exam Vitals: Vital Signs Temp Pulse Pulse Resp BP BP Pulse Ox 07/02/21 06:40 93 L 07/02/21 04:49 97.3 F L 94 16 127/72 86 L 07/01/21 21:42 98.2 F 75 20 137/101 91 L 07/01/21 21:00 110 H 18 111/74 92 L 07/01/21 18:57 98.1 F 120 H 20 103/66 88 L Intake and Output 07/01/21 07/02/21 07/02/21 22:59 06:59 14:59 Intake Total 480 50 Output Total 250 Balance 480 -200 Intake: Intake, IV Titration 50 Amount ceFAZolin 2 gm In Sodium 50 Chloride 0.9% 50 ml @ 100 mls/hr IVPB ONCE STA Rx# :[id number] Oral 480 Output: Urine 250 Other: Voiding Method Urinal Weight 123.5 kg Head normocephalic Neck supple Lungs clear to auscultation bilaterally no wheezing or crackles Heart regular rate and rhythm S1-S2, no rub or gallop Abdomen is soft nontender nondistended positive bowel sounds no hepatosplenomegaly Extremities no edema. Left shoulder erythema and warmth Neuro alert and orientated to 3 Results CBC & Chem 7: 07/02/21 05:51 07/01/21 21:00 Labs: Abnormal Lab Results - Last 24 Hours (Table) 07/01/21 07/01/21 07/02/21 Range/Units 21:00 21:00 05:51 RBC 4.20 L (4.40-5.60) X 10*6/uL Hgb 12.8 L (13.0-17.0) g/dL MCV 97.6 H (80.0-97.0) fL MCHC 30.5 L 31.2 L (31.0-37.0) g/dL Immature Gran # 0.09 H (0.00-0.04) X 10*3/uL Lymphocytes # 0.8 L (1.0-4.8) k/uL BUN 24 H (9-20) mg/dL Alkaline Phosphatase 156 H (38-126) U/L Assessment and Plan Assessment: 1. Left shoulder wound infection. patient is postsurgical 12 days ago status post left shoulder hemiarthroplasty 2. History of paroxysmal atrial fibrillation patient is maintained on eliquis at home this is currently on hold until decision made by surgical services for p ossible surgical intervention 3. History of essential hypertension 4. History of GERD 5. History of previous cardiac catheterization 6. History of chronic systolic congestive heart failure DT prophylaxis SCDs until cleared by surgery to resume home dose of eliquis. GI prophylaxis Protonix Infectious disease have been consulted Blood culture ordered Repeat labs ordered Thank you for this consultation we'll continue to follow patient closely throughout stay Time with Patient: Greater than 30 (Greater than 60% of the total time spent in counseling and coordination of care)
[2021-07-02] MEDS ORDERED: ALPRAZolam 0.5 MG TAB PO PRN ×2 (10:33)
--- NOTE | 2021-07-02 10:34 | P.HPOR ---
History of Present Illness H&P Date: 07/02/21 This patient is a 80-year-old male with a past medical history of A. fib on Eliquis, CVA, CHF, hypertension, hyperlipidemia that presented to [facility] emergency department yesterday with complaints of increasing left shoulder pain. Patient is status-post revision left total shoulder arthroplasty with conversion to hemiarthroplasty by Dr. Juanpablo Barrios on 06/19/21. Patient states he is doing well in the postoperative period until he developed soreness in his anterior left shoulder earlier this week. He was seen by his primary care physician this past , who removed his dressing. There was concern for infection, therefore recommended follow-up with Dr. Barrios. Patient was seen by Dr. Barrios in the office this Saturday, and patient was started on Bactrim. Patient states Dr. Barrios told him to present the emergency department if his shoulder did not improve with oral antibiotics. Per patient's , patient took 3 doses of Bactrim with no improvement. Therefore, patient presented to [facility] emergency yesterday for evaluation. Patient was admitted under the care of Dr. Barrios with consults placed to internal medicine and infectious disease. Patient is seen and examined bedside this morning. He states the pain in left shoulder is controlled at this time if he doesn't move the shoulder. He states he otherwise feels well and denies chest pain, shortness breath, nausea, vomiting, fevers, chills. Vital signs stable. Past Medical History Past Medical History: CVA/TIA, GERD/Reflux, Hearing Disorder / Deafness, Hyperlipidemia, Osteoarthritis (OA), Prostate Disorder Additional Past Medical History / Comment(s): Tinnitus, Hx kidney stones, BPH, LUNG SCARRING. 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 EGD, COLONOSCOPY cardioversion Past Anesthesia/Blood Transfusion Reactions: No Reported Reaction Past Psychological History: Anxiety Smoking Status: Former smoker Past Alcohol Use History: None Reported Past Drug Use History: None Reported - Past Family History Father Family Medical History: Congestive Heart Failure (CHF), Hypertension, Myocardial Infarction ([place]) Additional Family Medical History / Comment(s): AT AGE 84-[place] Mother Family Medical History: No Reported History Additional Family Medical History / Comment(s): . Medications and Allergies Home Medications Medication Instructions Recorded Confirmed Type Sertraline HCl [Zoloft] 200 mg PO DAILY@1500 10/30/13 07/01/21 History Temazepam [Restoril] 30 mg PO HS 10/30/13 07/01/21 History Cholecalciferol [Vitamin D3 (25 1,000 unit PO DAILY@1500 06/10/18 07/01/21 History Mcg = 1000 Iu)] Mirabegron [Myrbetriq] 25 mg PO DAILY@1500 06/10/18 07/01/21 History Apixaban [Eliquis] 5 mg PO BID #60 tab 06/12/18 07/01/21 Rx Acetaminophen Tab [Tylenol] 1,000 mg PO HS 08/08/18 07/01/21 History Vitamin E (Dl,Tocopheryl Acet) 400 unit PO DAILY@1500 08/08/18 07/01/21 History [Vitamin E (400 Iu = 180 mg)] Furosemide [Lasix] 40 mg PO DAILY 09/17/18 07/01/21 History Alfuzosin HCl [Uroxatral] 10 mg PO DAILY 11/18/19 07/01/21 History traMADol HCl [Ultram] 50 - 100 mg PO Q6HR PRN 06/14/21 07/01/21 History Sennosides [Senokot] 2 tab PO DAILY PRN #60 tablet 06/19/21 07/01/21 Rx Metoprolol Tartrate [Lopressor] 25 mg PO BID 07/01/21 07/01/21 History Pantoprazole [Protonix] 40 mg PO DAILY 07/01/21 07/01/21 History Sulfamethox-Tmp 800-160Mg [Bactrim 1 tab PO Q12HR 07/01/21 07/01/21 History DS 800-160 mg] Allergies Allergy/AdvReac Type Severity Reaction Status Date / Time hydrocodone [From Lortab] Allergy SEVERE Verified 07/01/21 22:28 ABDOMINAL AND TROUBLE BREATHING hydrocodone bitartrate Allergy Anaphylaxis Verified 07/01/21 22:28 [From Vicodin] Penicillins Allergy Anaphylaxis Verified 07/01/21 22:28 propoxyphene napsylate Allergy Anaphylaxis Verified 07/01/21 22:28 [From Darvocet-N 100] tamsulosin HCl [From Flomax] Allergy Anaphylaxis Verified 07/01/21 22:28 Physical Examination On examination, the patient is sitting up in bed in no apparent distress. He is alert and oriented 3. His head appears normocephalic and atraumatic. His breathing appears nonlabored. A focused examination of the left shoulder was conducted. On inspection of the left shoulder, there is a healing incision at the anterior shoulder with surrounding erythema and fluctuance. There is no active drainage from the incision. There is mild pain with attempts at passive range of motion of the shoulder. Motor and sensory function is intact of the left upper extremity. Patient has good strength [id number] of the left wrist and fingers. Radial pulse easily palpable, left upper extremity warm and well-perfused with brisk capillary refill of all fingers and thumb. Results Left shoulder x-ray 07/01/21: Left shoulder hemiarthroplasty in place with no fractures. - Labs Labs: Abnormal Lab Results - Last 24 Hours (Table) 07/01/21 07/01/21 07/02/21 Range/Units 21:00 21:00 05:51 RBC 4.20 L (4.40-5.60) X 10*6/uL Hgb 12.8 L (13.0-17.0) g/dL MCV 97.6 H (80.0-97.0) fL MCHC 30.5 L 31.2 L (31.0-37.0) g/dL Immature Gran # 0.09 H (0.00-0.04) X 10*3/uL Lymphocytes # 0.8 L (1.0-4.8) k/uL BUN 24 H (9-20) mg/dL Alkaline Phosphatase 156 H (38-126) U/L H & H 07/01/21 07/02/21 Range/Units 21:00 05:51 Hgb 13.6 12.8 L (13.0-17.5) gm/dL Hct 44.5 41.0 (39.0-53.0) % Coagulation 07/01/21 Range/Units 21:00 INR 1.1 (<1.2) Result Diagrams: 07/02/21 05:51 07/01/21 21:00 Assessment and Plan Assessment: Status-post revision left total shoulder arthroplasty with conversion to hemiarthroplasty with acute surgical site infection. Plan: - The clinical findings were discussed with the patient. The patient was discussed in detail Dr. Juanpablo Barrios. Recommend formal left shoulder I&D in t operating room today. Patient is agreeable to this plan. - Pain management as needed. - Infectious disease has been consulted for antibiotic management. Medical management per internal medicine team. - Patient will be kept NPO and we will plan for OR this afternoon.
[2021-07-02] MEDS: METOPROLOL TARTRATE 25 MG TAB PO SCH ×2 (11:11→20:59)
[2021-07-02 11:24] LABS: African American GFR (CKD) 60.1 (60.0-200.0); Albumin 3.5 g/dL (3.8-4.9); Albumin/Globulin Ratio 1.75 (1.60-3.17); BUN/Creat Ratio 15.15 Ratio (12.00-20.00); Blood Urea Nitrogen 19.7 mg/dL (9.0-27.0); Calcium 8.8 mg/dL (8.7-10.3); Non-African American GFR(CKD) 51.9 (60.0-200.0); Potassium 3.7 mmol/L (3.5-5.5); Total Bilirubin 0.6 mg/dL (0.30-1.20); Total Protein 5.5 g/dL (6.2-8.2)
[2021-07-02] MEDS ORDERED: LIDOCAINE 2% INJ 20 MG/ML (2 ML VIAL) ONE (12:50)
[2021-07-02] MEDS ORDERED: PROPOFOL 10 MG/ML 20 ML VIAL IV ONE (12:50)
[2021-07-02] MEDS ORDERED: SUCCINYLCHOLINE CHLORIDE 100 MG/5 ML SYR IV ONE (12:50)
[2021-07-02] MEDS ORDERED: fentaNYL (PF) 50 MCG/ML 2 ML AMP ONE (12:50)
[2021-07-02] MEDS ORDERED: IV FLUID CONTINUATION 1,000 ML IV ONE (12:53)
[2021-07-02] MEDS ORDERED: SENNOSIDES-DOCUSATE SODIUM 1 EACH TAB PO PRN (13:08)
[2021-07-02] MEDS ORDERED: ONDANSETRON 4 MG/2 ML VIAL IVP PRN (13:08)
[2021-07-02] MEDS ORDERED: VANCOMYCIN 1,000 MG VIAL MISCELLANE ONE (13:18)
--- NOTE | 2021-07-02 13:31 | P.OP ---
Date of Procedure: 07/02/21 Preoperative Diagnosis: Infection left shoulder Postoperative Diagnosis: Infection left shoulder Procedure(s) Performed: Incision and drainage left shoulder Implants: Stimulon antibiotic beads Anesthesia: JED Surgeon: Juanpablo Barrios Estimated Blood Loss (ml): 50 Pathology: other (Cultures 2) Condition: stable Disposition: PACU Indications for Procedure: This is a 80-year-old gentleman that recently had a revision left shoulder hemiarthroplasty presented to the office on Saturday with signs and symptoms of a superficial infection. He was placed on antibiotics and told that if the area does not improve, he should report to the hospital for formal incision and drainage. He was admitted last evening and after we discussed the surgical nonsurgical treatment options at length I recommended a formal incision and drainage of his left shoulder. Consent was obtained. Operative Findings: The operative findings are consistent with a superficial wound infection of left shoulder. There is a moderate amount of purulent material superficially, but there was no evidence of any purulent material deep to the fascia and into the left shoulder joint. Description of Procedure: Patient was seen in the preoperative area consent was reviewed and operative site was marked with a skin marker. Patient was then brought to the operating room and given a general anesthetic by the anesthesia department. The left shoulder symptoms prepped and draped in usual sterile fashion. A universal timeout was then performed confirming the patient's name, surgical site, ALLERGIES, and consent. Shoulder was evaluated and found have significant redness around the incision, but no active drainage. Incision was sharply opened up with a knife and a moderate amount of coagulated blood and purulent material was expressed. This was cultured 2. Any devitalized tissue was removed sharply with a knife and the skin edges were debrided sharply with a knife as well. There isn't copiously irrigated with Betadine solution as well. The fascia was inspected and found to be well sealed and this was then opened sharply with a knife. There is no evidence of any purulent material deep to the fascia. This area was then irrigated with pulsatile lavage and bathed with Betadine as well. After a thorough irrigation the wound was then inspected and all tissues are found to be viable. While this was being done, antibiotic beads were prepared on the back table. This was done using the [employer] preprepared system. 2 g of vancomycin were added to the mixture. These were prepared mixed and beads made. Antibiotic beads were placed both deep into the left shoulder and also superficially to the fascia. The fascia was then closed with 0 Vicryl, followed by 2-0 Vicryl for the subcutaneous tissues, and jose manuel for the skin. Sterile dressing was applied and patient was transferred recovery room stable condition.
[2021-07-02] MEDS: fentaNYL (PF) 50 MCG/ML 2 ML AMP IVP ONE ×3 (13:58→14:06)
[2021-07-02] MEDS: SERTRALINE 100 MG TAB PO SCH (14:41)
[2021-07-02] MEDS: CHOLECALCIFEROL 25 MCG (1000 IU) TABLET PO SCH (14:41)
[2021-07-02] MEDS: VITAMIN E (DL,TOCOPHERYL ACET) 400 UNIT (180 MG) CAP PO SCH (14:42)
[2021-07-02] MEDS: NON FORMULARY DRUG (Mirabegron [Myrbetriq] 25 MG Tab.Er.24h) PO SCH (14:42)
[2021-07-02] MEDS: traMADol 50 MG TAB PO PRN (17:48)
[2021-07-02] MEDS: ACETAMINOPHEN TAB 500 MG TAB PO SCH (20:59)
[2021-07-02] MEDS ORDERED: TEMAZEPAM 30 MG CAP PO SCH (21:00)
[2021-07-02] MEDS ORDERED: TEMAZEPAM 15 MG CAP PO SCH (21:01)
[2021-07-03] MEDS: traMADol 50 MG TAB PO PRN ×2 (00:47→07:30)
[2021-07-03] MEDS: TEMAZEPAM 15 MG CAP PO SCH ×2 (00:47→20:31)
[2021-07-03] MEDS: PANTOPRAZOLE 40 MG TABLET PO SCH (07:30)
[2021-07-03] MEDS: METOPROLOL TARTRATE 25 MG TAB PO SCH ×2 (07:30→20:31)
[2021-07-03] MEDS: FUROSEMIDE 40 MG TAB PO SCH (07:30)
--- NOTE | 2021-07-03 09:01 | P.PN ---
Subjective Progress Note Date: 07/03/21 This is a 80-year-old male who is status post incision and drainage of the left shoulder. This is postoperative day #1 and patient is seen and evaluated at bedside today with Dr. Juanpablo Barrios. Patient states that his pain is well- controlled and he denies any new complaints today. Objective - Vital Signs Vital signs: Vital Signs Temp 97.6 F 07/03/21 04:54 Pulse 75 07/03/21 07:29 Resp 18 07/03/21 04:54 BP 122/74 07/03/21 07:29 Pulse Ox 95 07/03/21 07:29 Intake & Output 07/02/21 07/03/21 07/03/21 18:59 06:59 18:59 Intake Total 450 500 Output Total 450 Balance 0 500 Intake: IV 450 Oral 500 Output: Urine 400 Estimated Blood Loss 50 Other: Voiding Method Urinal Urinal Urinal - Exam Vital signs are stable. Patient is in no acute distress and is alert and oriented 3. Incision is clean, dry, and intact. There is mild swelling present over the left shoulder. Calf is soft and nontender to palpation. Sensation intact. Neurovascular status and circulatory status are intact. - Labs CBC & Chem 7: 07/02/21 05:51 07/02/21 05:51 Labs: Abnormal Lab Results - Last 24 Hours (Table) 07/02/21 07/02/21 Range/Units 05:51 05:51 RBC 4.20 L (4.40-5.60) X 10*6/uL Hgb 12.8 L (13.0-17.0) g/dL MCV 97.6 H (80.0-97.0) fL MCHC 31.2 L (32.0-37.0) g/dL Immature Gran # 0.09 H (0.00-0.04) X 10*3/uL Est GFR (CKD-EPI)NonAf 51.9 L (60.0-200.0) Alkaline Phosphatase 145 H (41-126) U/L Total Protein 5.5 L (6.2-8.2) g/dL Albumin 3.5 L (3.8-4.9) g/dL Microbiology - Last 24 Hours (Table) 07/01/21 20:58 Blood Culture - Preliminary Blood No Growth after 24 hours 07/01/21 20:41 Blood Culture - Preliminary Blood No Growth after 24 hours Assessment and Plan (1) Status post incision and drainage Current Visit: Yes Status: Acute Code(s): Z98.890 - OTHER SPECIFIED POSTPROCEDURAL STATES SNOMED Code(s): 593849686 (2) Wound infection after surgery Current Visit: Yes Status: Acute Code(s): T81.49XA - INFECTION FOLLOWING A PROCEDURE, OTHER SURGICAL SITE, INIT SNOMED Code(s): 15622276 Plan: 1. Cultures are pending. 2. Daily dressing changes. 3. Continue routine postoperative care and pain control. 4. Appreciate input from infectious disease and internal medicine. 5. Further recommendations pending wound culture results.
[2021-07-03] MEDS: ALFUZOSIN HCL 10 MG PO SCH (09:12)
[2021-07-03 09:53] LABS: African American GFR (CKD) 60.1 (60.0-200.0); Albumin 3.8 g/dL (3.8-4.9); Albumin/Globulin Ratio 1.65 (1.60-3.17); Anion Gap 11.1 mmol/L (10.00-18.00); BUN/Creat Ratio 14.62 Ratio (12.00-20.00); Calcium 9.2 mg/dL (8.7-10.3); Carbon Dioxide 27.9 mmol/L (20.0-27.5); Globulin 2.3 g/dL (1.6-3.3); Non-African American GFR(CKD) 51.9 (60.0-200.0); Potassium 4.1 mmol/L (3.5-5.5); Total Bilirubin 0.5 mg/dL (0.30-1.20); Total Protein 6.1 g/dL (6.2-8.2)
[2021-07-03 10:00] LABS: Basophils # (A) 0.05 X 10*3/uL (0.00-0.10); Basophils % (A) 0.5 %; Eosinophils # (A) 0.22 X 10*3/uL (0.04-0.35); Eosinophils % (A) 2.3 %; HCT 45.3 % (39.6-50.0); HGB 13.8 g/dL (13.0-17.0); Immature Grans, Automated 1.1 %; Lymphocytes # (A) 1.36 X 10*3/uL (0.90-5.00); MCH 30.1 pg (27.0-32.0); MCHC 30.5 g/dL (32.0-37.0); MCV 98.9 fL (80.0-97.0); Monocytes # (A) 0.67 X 10*3/uL (0.20-1.00); Monocytes % (A) 6.9 %; NRBC Per 100 WBC 0 /100 WBCS (0.0-0.0); Neutrophils # (A) 7.29 X 10*3/uL (1.80-7.70); Neutrophils % (A) 75.2 %; Platelet Count 260 X 10*3/uL (140-440); RBC 4.58 X 10*6/uL (4.40-5.60); RDW 14.6 % (11.5-14.5)
[2021-07-03] MEDS ORDERED: VANCOMYCIN IV PER PHARMACY 1 EACH MISC MISCELLANE PRN (10:01)
[2021-07-03] MEDS ORDERED: VANCOMYCIN 2,500 MG in SODIUM CHLORIDE 0.9% 500 ML 500 ML IVPB ONE (11:00)
[2021-07-03] MEDS: CHOLECALCIFEROL 25 MCG (1000 IU) TABLET PO SCH (15:09)
[2021-07-03] MEDS: SERTRALINE 100 MG TAB PO SCH (15:09)
[2021-07-03] MEDS: VITAMIN E (DL,TOCOPHERYL ACET) 400 UNIT (180 MG) CAP PO SCH (15:09)
[2021-07-03] MEDS: NON FORMULARY DRUG (Mirabegron [Myrbetriq] 25 MG Tab.Er.24h) PO SCH (15:10)
--- NOTE | 2021-07-03 17:21 | P.PN ---
Subjective Progress Note Date: 07/03/21 Nick Vora, is a 80-year-old male patient who presented to the ER with concerns of infection to left shoulder. Patient recently underwent orthopedic surgery [address] jovel. Patient started to develop some soreness presented to PCP where was discovered that it. Infected patient was started on Bactrim patient bowel had followed with Dr. Sarkar and was instructed to come to ER for further evaluation. Patient has a past medical history for CVA, GERD, hearing disorder, osteoarthritis, prostate disorder, anxiety and ex-smoker. X- ray of left shoulder was completed showing no fracture no change compared to old exam. On examination surgical wound site erythematous and warm. At this time infectious disease services have been consulted. Patient has been admitted under surgical services. Patient denies chest pain or shortness of breath. Patient denies nausea vomiting or diarrhea. Patient denies any urinary burning or frequency. On 07/03/2021 patient was seen and examined on the medical floor he is alert and oriented 3 in no apparent distress, vital exam reveals a temperature of 97.4 pulse 110 respiration 18 blood pressure 126/76 pulse ox 88% on room air, white blood count is 9.7 hemoglobin 13.8 platelet count 260 sodium 141 potassium 4.1 chloride 102 CO2 27.9 BUN 19 creatinine 1.3. Patient underwent incision and drainage of the left shoulder on 07/01/2021 wound cultures are still pending patient is maintained on IV vancomycin infectious disease are following Objective - Vital Signs Vital signs: Vital Signs Temp 97.6 F 07/03/21 04:54 Pulse 75 07/03/21 07:29 Resp 18 07/03/21 04:54 BP 122/74 07/03/21 07:29 Pulse Ox 95 07/03/21 07:29 Intake & Output 07/02/21 07/03/21 07/03/21 18:59 06:59 18:59 Intake Total 450 500 Output Total 450 Balance 0 500 Intake: IV 450 Oral 500 Output: Urine 400 Estimated Blood Loss 50 Other: Voiding Method Urinal Urinal Urinal - Exam In general patient is alert and oriented 3 in no apparent distress Head normocephalic and atraumatic Neck supple no JVD no goiter Lungs clear to auscultation bilaterally no wheezing or crackles Heart regular rate and rhythm S1-S2, no rub or gallop Abdomen is soft nontender nondistended positive bowel sounds no hepatosplenomegaly Extremities no edema. Left shoulder erythema and warmth Neuro alert and orientated to 3 - Labs CBC & Chem 7: 07/03/21 05:45 07/03/21 05:45 Labs: Abnormal Lab Results - Last 24 Hours (Table) 07/02/21 07/02/21 Range/Units 05:51 05:51 RBC 4.20 L (4.40-5.60) X 10*6/uL Hgb 12.8 L (13.0-17.0) g/dL MCV 97.6 H (80.0-97.0) fL MCHC 31.2 L (32.0-37.0) g/dL Immature Gran # 0.09 H (0.00-0.04) X 10*3/uL Est GFR (CKD-EPI)NonAf 51.9 L (60.0-200.0) Alkaline Phosphatase 145 H (41-126) U/L Total Protein 5.5 L (6.2-8.2) g/dL Albumin 3.5 L (3.8-4.9) g/dL Microbiology - Last 24 Hours (Table) 07/01/21 20:58 Blood Culture - Preliminary Blood No Growth after 24 hours 07/01/21 20:41 Blood Culture - Preliminary Blood No Growth after 24 hours Assessment and Plan Assessment: 1. Left shoulder wound infection. patient is postsurgical 12 days ago status post left shoulder hemiarthroplasty 2. History of paroxysmal atrial fibrillation patient is maintained on eliquis at home this is currently on hold until decision made by surgical services for possible surgical intervention 3. History of essential hypertension 4. History of GERD 5. History of previous cardiac catheterization 6. History of chronic systolic congestive heart failure DT prophylaxis SCDs until cleared by surgery to resume home dose of eliquis. GI prophylaxis Protonix Infectious disease have been consulted Blood culture ordered Repeat labs ordered Thank you for this consultation we'll continue to follow patient closely throughout stay
[2021-07-03] MEDS: ENOXAPARIN 40 MG/0.4 ML SYRINGE SQ SCH (17:37)
[2021-07-03] MEDS: ACETAMINOPHEN TAB 500 MG TAB PO SCH (20:31)
--- NOTE | 2021-07-03 21:47 | P.CONS ---
History of Present Illness - Reason for Consult Consult date: 07/03/21 Left shoulder wound infection Requesting physician: Pierce Dillard - Chief Complaint Left shoulder wound x few days - History of Present Illness Patient is a 80-year old male with a past medical history significant for A. fib CVA CHF hypertension hyperlipidemia and this patient was status post revision of the left total shoulder arthroplasty on 06/19/2021 the patient was doing well postoperatively however patient was seen by his primary care physician who removed his dressing and was concern for infection for the patient was sent to the surgeon patient was started on oral Bactrim DS patient complaining of pain to the left shoulder area more of a dull aching at times sharp 4-5 out of 10 no radiation patient denies having any purulent drainage with the symptom the patient has been evaluated on arrival to the ER patient was afebrile and no fever have been recorded subsequently patient did have a normal white count creatinine was normal patient did have blood cultures drawn which are currently pending patient was taken to the OR yesterday afternoon patient was noticed to have infection of the left shoulder status post incision and drainage culture has been obtained antibiotic beads has been placed patient received cefazolin perioperatively infectious disease was consulted for further management of antibiotic therapy Review of Systems Positive point has been mentioned in the HPI rest of the systems are negative Past Medical History Past Medical History: CVA/TIA, GERD/Reflux, Hearing Disorder / Deafness, Hyperlipidemia, Osteoarthritis (OA), Prostate Disorder Additional Past Medical History / Comment(s): Tinnitus, Hx kidney stones, BPH, LUNG SCARRING. 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 EGD, COLONOSCOPY cardioversion Past Anesthesia/Blood Transfusion Reactions: No Reported Reaction Past Psychological History: Anxiety Smoking Status: Former smoker Past Alcohol Use History: None Reported Past Drug Use History: None Reported - Past Family History Father Family Medical History: Congestive Heart Failure (CHF), Hypertension, Myocardial Infarction (PA) Additional Family Medical History / Comment(s): AT AGE 84-PA Mother Family Medical History: No Reported History Additional Family Medical History / Comment(s): . Medications and Allergies Home Medications Medication Instructions Recorded Confirmed Type Sertraline HCl [Zoloft] 200 mg PO DAILY@1500 10/30/13 07/01/21 History Temazepam [Restoril] 30 mg PO HS 10/30/13 07/01/21 History Cholecalciferol [Vitamin D3 (25 1,000 unit PO DAILY@1500 06/10/18 07/01/21 History Mcg = 1000 Iu)] Mirabegron [Myrbetriq] 25 mg PO DAILY@1500 06/10/18 07/01/21 History Apixaban [Eliquis] 5 mg PO BID #60 tab 06/12/18 07/01/21 Rx Acetaminophen Tab [Tylenol] 1,000 mg PO HS 08/08/18 07/01/21 History Vitamin E (Dl,Tocopheryl Acet) 400 unit PO DAILY@1500 08/08/18 07/01/21 History [Vitamin E (400 Iu = 180 mg)] Furosemide [Lasix] 40 mg PO DAILY 09/17/18 07/01/21 History Alfuzosin HCl [Uroxatral] 10 mg PO DAILY 11/18/19 07/01/21 History traMADol HCl [Ultram] 50 - 100 mg PO Q6HR PRN 06/14/21 07/01/21 History Sennosides [Senokot] 2 tab PO DAILY PRN #60 tablet 06/19/21 07/01/21 Rx Metoprolol Tartrate [Lopressor] 25 mg PO BID 07/01/21 07/01/21 History Pantoprazole [Protonix] 40 mg PO DAILY 07/01/21 07/01/21 History Sulfamethox-Tmp 800-160Mg [Bactrim 1 tab PO Q12HR 07/01/21 07/01/21 History DS 800-160 mg] Allergies Allergy/AdvReac Type Severity Reaction Status Date / Time hydrocodone [From Lortab] Allergy SEVERE Verified 07/01/21 22:28 ABDOMINAL AND TROUBLE BREATHING hydrocodone bitartrate Allergy Anaphylaxis Verified 07/01/21 22:28 [From Vicodin] Penicillins Allergy Anaphylaxis Verified 07/01/21 22:28 propoxyphene napsylate Allergy Anaphylaxis Verified 07/01/21 22:28 [From Darvocet-N 100] tamsulosin HCl [From Flomax] Allergy Anaphylaxis Verified 07/01/21 22:28 Physical Exam Vitals: Vital Signs Temp Pulse Pulse Resp BP Pulse Ox 07/03/21 07:29 75 122/74 95 07/03/21 04:54 97.6 F 66 18 109/67 92 L 07/02/21 21:00 97.5 F L 113 H 20 116/76 92 L 07/02/21 14:40 105 H 18 113/70 91 L 07/02/21 14:31 102 H 16 132/73 94 L 07/02/21 14:17 103 H 16 135/74 94 L 07/02/21 14:01 104 H 16 134/69 94 L 07/02/21 13:45 105 H 16 138/76 94 L 07/02/21 13:31 97.5 F L 106 H 16 143/75 94 L Intake and Output 07/02/21 07/03/21 07/03/21 22:59 06:59 14:59 Intake Total 500 Output Total 400 Balance -400 500 Intake: Oral 500 Output: Urine 400 Other: Voiding Method Urinal Urinal GENERAL DESCRIPTION: Elderly male lying in bed, no distress. No tachypnea or accessory muscle of respiration use. HEENT: Shows Pallor , no scleral icterus. Oral mucous membrane is dry. No pharyngeal erythema or thrush NECK: Trachea central, no thyromegaly. LUNGS: Unlabored breathing. Clear to auscultation anteriorly. No wheeze or c rackle. HEART: S1, S2, regular rate and rhythm. No loud murmur ABDOMEN: Soft, no tenderness , guarding or rigidity, no organomegaly EXTREMITIES: No edema of feet. Left shoulder is currently dressed there is no drainage on the dressing SKIN: No rash, no masses palpable. NEUROLOGICAL: The patient is awake, alert, oriented x3, mood and affect normal. Results CBC & Chem 7: 07/03/21 05:45 07/03/21 05:45 Labs: Abnormal Lab Results - Last 24 Hours (Table) 07/02/21 07/02/21 Range/Units 05:51 05:51 RBC 4.20 L (4.40-5.60) X 10*6/uL Hgb 12.8 L (13.0-17.0) g/dL MCV 97.6 H (80.0-97.0) fL MCHC 31.2 L (32.0-37.0) g/dL Immature Gran # 0.09 H (0.00-0.04) X 10*3/uL Est GFR (CKD-EPI)NonAf 51.9 L (60.0-200.0) Alkaline Phosphatase 145 H (41-126) U/L Total Protein 5.5 L (6.2-8.2) g/dL Albumin 3.5 L (3.8-4.9) g/dL Microbiology - Last 24 Hours (Table) 07/01/21 20:58 Blood Culture - Preliminary Blood No Growth after 24 hours 07/01/21 20:41 Blood Culture - Preliminary Blood No Growth after 24 hours Assessment and Plan (1) Wound infection after surgery Current Visit: Yes Status: Acute Code(s): T81.49XA - INFECTION FOLLOWING A PROCEDURE, OTHER SURGICAL SITE, INIT SNOMED Code(s): 03752929 Plan: 1patient presented the hospital with left shoulder swelling redness in this patient did have evidence of left shoulder infection with recent left shoulder hemiarthroplasty on 06/19/2021 will need to cover for the gram-positive skin yulissa to be the likely pathogen such as staph aureus. 2vancomycin pharmacy to dose target trough of 15 while watching kidney func tion and vancomycin trough closely. 3patient will likely need IV antibiotic therapy followed by long-term suppressive antibiotic as the patient did have underlying hardware with concern for possible infection We will follow on clinical condition and cultures to further adjust medication if needed Thank you for this consultation will follow this patient along with you Time with Patient: Greater than 30
[2021-07-04] MEDS: VANCOMYCIN 2,250 MG in SODIUM CHLORIDE 0.9% 500 ML 500 ML IVPB SCH ×2 (01:43→17:07)
[2021-07-04] MEDS: traMADol 50 MG TAB PO PRN ×3 (05:48→19:05)
[2021-07-04 07:52] LABS: ALT 9 U/L (4-49); AST 27 U/L (17-59); African American GFR (CKD) 62 (>60 ml/min/1.73 sqM); Albumin 3.9 g/dL (3.5-5.0); Albumin/Globulin Ratio 1.4; Alkaline Phosphatase 142 U/L (38-126); Anion Gap 10 mmol/L; Blood Urea Nitrogen 21 mg/dL (9-20); Calcium 8.7 mg/dL (8.4-10.2); Carbon Dioxide 27 mmol/L (22-30); Chloride 103 mmol/L (98-107); Globulin 2.8 g/dL; Glucose 95 mg/dL (74-99); Non-African American GFR(CKD) 54 (>60 ml/min/1.73 sqM); Sodium 140 mmol/L (137-145); Total Bilirubin 1.1 mg/dL (0.2-1.3); Total Protein 6.7 g/dL (6.3-8.2)
[2021-07-04 08:07] LABS: Potassium 4.3 mmol/L (3.5-5.1)
[2021-07-04] MEDS: METOPROLOL TARTRATE 25 MG TAB PO SCH ×2 (09:07→20:38)
[2021-07-04] MEDS: PANTOPRAZOLE 40 MG TABLET PO SCH (09:07)
[2021-07-04] MEDS: CHOLECALCIFEROL 25 MCG (1000 IU) TABLET PO SCH (09:08)
[2021-07-04] MEDS: ENOXAPARIN 40 MG/0.4 ML SYRINGE SQ SCH (09:08)
[2021-07-04] MEDS: FUROSEMIDE 40 MG TAB PO SCH (09:08)
[2021-07-04] MEDS: ALFUZOSIN HCL 10 MG PO SCH (09:12)
--- NOTE | 2021-07-04 10:33 | P.PN ---
Subjective Progress Note Date: 07/04/21 This is a 80-year-old male who is status post incision and drainage of the left shoulder. This is postoperative day #2 and patient is seen and evaluated at bedside today with Dr. Juanpablo Barrios. Patient states that his pain is well- controlled and he denies any new complaints today. Objective - Vital Signs Vital signs: Vital Signs Temp 97.5 F L 07/04/21 04:35 Pulse 70 07/04/21 04:35 Resp 18 07/04/21 04:35 BP 123/75 07/04/21 04:35 Pulse Ox 95 07/04/21 07:41 Intake & Output 07/03/21 07/04/21 07/04/21 18:59 06:59 18:59 Output Total 600 Balance -600 Output: Stool 600 Other: Voiding Method Urinal # Voids 1 # Bowel Movements 1 - Exam Vital signs are stable. Patient is in no acute distress and is alert and oriented 3. Incision is clean, dry, and intact. There is mild bloody drainage present. There is mild swelling present over the left shoulder. Calf is soft and nontender to palpation. Sensation intact. Neurovascular status and circulatory status are intact. - Labs CBC & Chem 7: 07/03/21 05:45 07/04/21 07:19 Labs: Abnormal Lab Results - Last 24 Hours (Table) 07/04/21 Range/Units 07:19 BUN 21 H (9-20) mg/dL Creatinine 1.26 H (0.66-1.25) mg/dL Alkaline Phosphatase 142 H (38-126) U/L Microbiology - Last 24 Hours (Table) 07/01/21 20:58 Blood Culture - Preliminary Blood No Growth after 48 hours 07/01/21 20:41 Blood Culture - Preliminary Blood No Growth after 48 hours 07/02/21 13:14 Gram Stain - Preliminary Shoulder - Left Wound Culture - Preliminary 07/02/21 13:14 Gram Stain - Preliminary Shoulder - Left Wound Culture - Preliminary 07/02/21 13:14 Anaerobic Culture - Preliminary Shoulder - Left 07/02/21 13:14 Anaerobic Culture - Preliminary Shoulder - Left Assessment and Plan (1) Status post incision and drainage Current Visit: Yes Status: Acute Code(s): Z98.890 - OTHER SPECIFIED POST PROCEDURAL STATES SNOMED Code(s): 053903420 (2) Wound infection after surgery Current Visit: Yes Status: Acute Code(s): T81.49XA - INFECTION FOLLOWING A PROCEDURE, OTHER SURGICAL SITE, INIT SNOMED Code(s): 65065135 Plan: 1. Gram stain is negative. Cultures are pending. 2. Daily dressing changes. 3. Continue routine postoperative care and pain control. 4. Appreciate input from infectious disease and internal medicine. 5. Further recommendations pending wound culture results.
[2021-07-04 10:41] LABS: Basophils # (A) 0.05 X 10*3/uL (0.00-0.10); Basophils % (A) 0.5 %; Eosinophils # (A) 0.26 X 10*3/uL (0.04-0.35); Eosinophils % (A) 2.8 %; HCT 46.8 % (39.6-50.0); HGB 14.4 g/dL (13.0-17.0); Immature Grans, Automated 1.6 %; Lymphocytes # (A) 1.27 X 10*3/uL (0.90-5.00); Lymphocytes % (A) 13.4 %; MCH 30.5 pg (27.0-32.0); MCHC 30.8 g/dL (32.0-37.0); MCV 99.2 fL (80.0-97.0); Mean Platelet Volume 10.9 fL (9.5-12.2); Monocytes # (A) 0.71 X 10*3/uL (0.20-1.00); Monocytes % (A) 7.5 %; NRBC Per 100 WBC 0 /100 WBCS (0.0-0.0); Neutrophils # (A) 7.01 X 10*3/uL (1.80-7.70); Neutrophils % (A) 74.2 %; Platelet Count 253 X 10*3/uL (140-440); RBC 4.72 X 10*6/uL (4.40-5.60); RDW 14.6 % (11.5-14.5); WBC 9.45 X 10*3/uL (4.50-10.00)
[2021-07-04] MEDS: NON FORMULARY DRUG (Mirabegron [Myrbetriq] 25 MG Tab.Er.24h) PO SCH (15:02)
[2021-07-04] MEDS: VITAMIN E (DL,TOCOPHERYL ACET) 400 UNIT (180 MG) CAP PO SCH (15:03)
[2021-07-04] MEDS: SERTRALINE 100 MG TAB PO SCH (15:03)
--- NOTE | 2021-07-04 16:14 | CDI ---
Documentation Clarification Form Date: 07/04/2021 03:36:54 PM From: Cele Serra RN, CCDS Admit Date: 07/03/2021 04:43:00 PM Patient Name: Nick Vora Visit Number: [id number] Discharge Date: ATTENTION: The Clinical Documentation Specialists (CDI) and [facility] Coding Staff appreciate your assistance in clarifying documentation. Please respond to the clarification below the line at the bottom and electronically sign. The CDI & [facility] Coding staff will review the response and follow-up if needed. Please note: Queries are made part of the Legal Health Record. If you have any questions, please contact the author of this message via ITS. Dr. Juanpablo Barrios A debridement is documented in the operative report on 07/02/21. Additional clarification regarding the procedure is requested. 07/02 Operative report: Any devitalized tissue was removed sharply with a knife and the skin edges were debrided sharply with a knife as well. History/Risk Factors: CVA, Osteoarthritis, Former smoker Clinical Indicators: 80-year-old male had a revision left shoulder hemiarthroplasy. 07/02/21 operative findings consistent with a superficial wound infection of left shoulder. Treatment: Vancomycin 2,500 MG IVPB ONCE Then Q 16 HRS (PTD) Kefzol 2 GM IVPB Q 8 HRS (07/01-07/03) Daily dressing changes Ultram 50MG PO Q 6H PRN Pain (07/02-07/04) Please further clarify the technique used for debridement in the procedure: [ ] Excisional debridement (the removal of necrotic, devitalized tissue or slough by means of cutting away of tissue) [ ] Non-excisional debridement (the removal of necrotic, devitalized tissue or slough by means of flushing, brushing, or washing. (Irrigation) [ ] Other; please specify [ ] Unable to determine Five elements required for accurate and compliant documentation of a debridement: Technique used (e.g., excisional, excised, cutting, brushing, jet lavage etc.) Instrument(s) used (e.g., scalpel, curette, etc.) Nature of the tissue removed (e.g., necrotic, devitalized tissues, non-viable tissue, etc.) Appearance and size of the wound (e.g., down to fresh bleeding tissue, 7cm x 10cm, etc.) Depth of the debridement* (e.g., skin, subcutaneous tissue, fascia, muscle, bone, etc.) (Template Last Revised: April 2020) MTDD
--- NOTE | 2021-07-04 19:14 | P.PN ---
Subjective Progress Note Date: 07/04/21 Nick Vora, is a 80-year-old male patient who presented to the ER with concerns of infection to left shoulder. Patient recently underwent orthopedic surgery [address] jovel. Patient started to develop some soreness presented to PCP where was discovered that it. Infected patient was started on Bactrim patient bowel had followed with Dr. Sarkar and was instructed to come to ER for further evaluation. Patient has a past medical history for CVA, GERD, hearing disorder, osteoarthritis, prostate disorder, anxiety and ex-smoker. X- ray of left shoulder was completed showing no fracture no change compared to old exam. On examination surgical wound site erythematous and warm. At this time infectious disease services have been consulted. Patient has been admitted under surgical services. Patient denies chest pain or shortness of breath. Patient denies nausea vomiting or diarrhea. Patient denies any urinary burning or frequency. On 07/03/2021 patient was seen and examined on the medical floor he is alert and oriented 3 in no apparent distress, vital exam reveals a temperature of 97.4 pulse 110 respiration 18 blood pressure 126/76 pulse ox 88% on room air, white blood count is 9.7 hemoglobin 13.8 platelet count 260 sodium 141 potassium 4.1 chloride 102 CO2 27.9 BUN 19 creatinine 1.3. Patient underwent incision and drainage of the left shoulder on 07/01/2021 wound cultures are still pending patient is maintained on IV vancomycin infectious disease are following On 07/04/2021 patient was seen and examined on the medical floor he is alert and oriented 3 in no apparent distress, he is still complaining of shoulder pain but this feeling better there is no fever or chills no headache or dizziness no chest pain no shortness of breath no cough no nausea or vomiting no abdominal pain no diarrhea no blood in the stool no burning with urination no frequency or urgency no hematuria. At this time patient is off Eliquis, will discuss with surgery possibility of restarting Eliquis Objective - Vital Signs Vital signs: Vital Signs Temp 97.5 F L 07/04/21 04:35 Pulse 70 07/04/21 04:35 Resp 18 07/04/21 04:35 BP 123/75 07/04/21 04:35 Pulse Ox 95 07/04/21 07:41 Intake & Output 07/03/21 07/04/21 07/04/21 18:59 06:59 18:59 Output Total 600 Balance -600 Output: Stool 600 Other: Voiding Method Urinal # Voids 1 # Bowel Movements 1 - Exam In general patient is alert and oriented 3 in no apparent distress Head normocephalic and atraumatic Neck supple no JVD no goiter Lungs clear to auscultation bilaterally no wheezing or crackles Heart regular rate and rhythm S1-S2, no rub or gallop Abdomen is soft nontender nondistended positive bowel sounds no hepatosplenomegaly Extremities no edema. Left shoulder erythema and warmth Neuro alert and orientated to 3 - Labs CBC & Chem 7: 07/04/21 07:19 07/04/21 07:19 Labs: Abnormal Lab Results - Last 24 Hours (Table) 07/03/21 07/04/21 Range/Units 05:45 07:19 MCV 98.9 H (80.0-97.0) fL MCHC 30.5 L (32.0-37.0) g/dL RDW 14.6 H (11.5-14.5) % Immature Gran # 0.11 H (0.00-0.04) X 10*3/uL BUN 21 H (9-20) mg/dL Creatinine 1.26 H (0.66-1.25) mg/dL Alkaline Phosphatase 142 H (38-126) U/L Microbiology - Last 24 Hours (Table) 07/01/21 20:58 Blood Culture - Preliminary Blood No Growth after 48 hours 07/01/21 20:41 Blood Culture - Preliminary Blood No Growth after 48 hours 07/02/21 13:14 Gram Stain - Preliminary Shoulder - Left Wound Culture - Preliminary 07/02/21 13:14 Gram Stain - Preliminary Shoulder - Left Wound Culture - Preliminary 07/02/21 13:14 Anaerobic Culture - Preliminary Shoulder - Left 07/02/21 13:14 Anaerobic Culture - Preliminary Shoulder - Left Assessment and Plan Assessment: 1. Left shoulder wound infection. patient is postsurgical 12 days ago status post left shoulder hemiarthroplasty 2. History of paroxysmal atrial fibrillation patient is maintained on eliquis at home this is currently on hold until decision made by surgical services for possible surgical intervention 3. History of essential hypertension 4. History of GERD 5. History of previous cardiac catheterization 6. History of chronic systolic congestive heart failure DT prophylaxis SCDs until cleared by surgery to resume home dose of eliquis. GI prophylaxis Protonix Infectious disease have been consulted Blood culture ordered Repeat labs ordered Thank you for this consultation we'll continue to follow patient closely throughout stay
[2021-07-04] MEDS: TEMAZEPAM 15 MG CAP PO SCH (20:38)
[2021-07-04] MEDS: ACETAMINOPHEN TAB 500 MG TAB PO SCH (20:38)
[2021-07-05] MEDS: PANTOPRAZOLE 40 MG TABLET PO SCH (07:15)
[2021-07-05] MEDS: METOPROLOL TARTRATE 25 MG TAB PO SCH ×2 (07:15→21:47)
[2021-07-05] MEDS: traMADol 50 MG TAB PO PRN ×2 (07:16→13:21)
[2021-07-05] MEDS: ENOXAPARIN 40 MG/0.4 ML SYRINGE SQ SCH (07:17)
[2021-07-05] MEDS: ALFUZOSIN HCL 10 MG PO SCH ×2 (07:17→16:37)
[2021-07-05] MEDS: FUROSEMIDE 40 MG TAB PO SCH (07:17)
[2021-07-05] MEDS: VANCOMYCIN 2,250 MG in SODIUM CHLORIDE 0.9% 500 ML 500 ML IVPB SCH (09:27)
--- NOTE | 2021-07-05 10:19 | P.PN ---
Subjective Progress Note Date: 07/05/21 This patient is a 80-year-old male who is status-post I&D of the left shoulder on 07/02/21. Patient is also status-post revision left total shoulder arthroplasty with conversion to hemiarthroplasty on 06/19/21. Today is post-operative day #3. The patient is seen and examined at bedside. He is complaining of mild pain in the left shoulder. He states he otherwise feels well and denies chest pain, shortness breath, nausea, vomiting, fevers, chills. He has no new complaints or concerns today. Vital signs stable. Objective - Vital Signs Vital signs: Vital Signs Temp 97.4 F L 07/04/21 19:30 Pulse 70 07/04/21 19:30 Resp 22 07/04/21 19:30 BP 120/59 07/04/21 19:30 Pulse Ox 98 07/05/21 07:48 Intake & Output 07/04/21 07/05/21 07/05/21 18:59 06:59 18:59 Intake Total 500 Balance 500 Intake: Intake, IV Titration 500 Amount Vancomycin 2,250 mg In 500 Sodium Chloride 0.9% 500 ml 500 ml @ 167 mls/hr IVPB Q16H COUNTS INCLUDE 234 BEDS AT THE [facility] Rx#: [id number] Other: Voiding Method Urinal - Exam On examination, patient is sitting up in bed in no apparent distress. He is alert and oriented 3. On inspection of the left shoulder, there is a healing incision at the anterior shoulder with intact jose manuel with mild surrounding er ythema. There is a small amount of serosanguineous drainage. No purulence noted. Motor and sensory function is intact of the left upper extremity. Radial pulse easily palpable, the left upper extremity he is warm and well- perfused with capillary refill distally. - Labs CBC & Chem 7: 07/04/21 07:19 07/05/21 05:46 Labs: Abnormal Lab Results - Last 24 Hours (Table) 07/04/21 07/05/21 Range/Units 07:19 05:46 MCV 99.2 H (80.0-97.0) fL MCHC 30.8 L (32.0-37.0) g/dL RDW 14.6 H (11.5-14.5) % Immature Gran # 0.15 H (0.00-0.04) X 10*3/uL Creatinine 1.33 H (0.66-1.25) mg/dL Microbiology - Last 24 Hours (Table) 07/02/21 13:14 Gram Stain - Final Shoulder - Left Wound Culture - Final 07/02/21 13:14 Gram Stain - Final Shoulder - Left Wound Culture - Final 07/01/21 20:58 Blood Culture - Preliminary Blood No Growth after 72 hours 07/01/21 20:41 Blood Culture - Preliminary Blood No Growth after 72 hours Assessment and Plan Assessment: Status-post left shoulder I&D on 07/02/21. Post-operative day #3. Status-post revision left total shoulder arthroplasty with conversion to hemiarthroplasty on 06/19/21. Plan: - Awaiting PICC line placement. Antibiotics per infectious disease. Will continue to follow cultures. - Pain management as needed. - Daily dressing changes. Dressing was changed bedside this morning. - May resume home Eliquis from orthopedic standpoint. - Medical management per internal medicine and infectious disease team. - Discharge planning in process per social work.
--- NOTE | 2021-07-05 10:19 | P.PN ---
Subjective Progress Note Date: 07/05/21 Nick Vora, is a 80-year-old male patient who presented to the ER with concerns of infection to left shoulder. Patient recently underwent orthopedic surgery [address] jovel. Patient started to develop some soreness presented to PCP where was discovered that it. Infected patient was started on Bactrim patient bowel had followed with Dr. Sarkar and was instructed to come to ER for further evaluation. Patient has a past medical history for CVA, GERD, hearing disorder, osteoarthritis, prostate disorder, anxiety and ex-smoker. X- ray of left shoulder was completed showing no fracture no change compared to old exam. On examination surgical wound site erythematous and warm. At this time infectious disease services have been consulted. Patient has been admitted under surgical services. Patient denies chest pain or shortness of breath. Patient denies nausea vomiting or diarrhea. Patient denies any urinary burning or frequency. On 07/03/2021 patient was seen and examined on the medical floor he is alert and oriented 3 in no apparent distress, vital exam reveals a temperature of 97.4 pulse 110 respiration 18 blood pressure 126/76 pulse ox 88% on room air, white blood count is 9.7 hemoglobin 13.8 platelet count 260 sodium 141 potassium 4.1 chloride 102 CO2 27.9 BUN 19 creatinine 1.3. Patient underwent incision and drainage of the left shoulder on 07/01/2021 wound cultures are still pending patient is maintained on IV vancomycin infectious disease are following On 07/04/2021 patient was seen and examined on the medical floor he is alert and oriented 3 in no apparent distress, he is still complaining of shoulder pain but this feeling better there is no fever or chills no headache or dizziness no chest pain no shortness of breath no cough no nausea or vomiting no abdominal pain no diarrhea no blood in the stool no burning with urination no frequency or urgency no hematuria. At this time patient is off Eliquis, will discuss with surgery possibility of restarting Eliquis On 07/05/2021 patient is alert and oriented 3. Patient remains on IV vancomyci n. Per infectious disease patient will likely need IV antibiotic therapy followed by long-term suppressive antibiotic as patient did have underlying hardware with concern of possible infection this was discussed with patient. Will consult case management and social work services for discharge planning. At this time patient denies chest pain or shortness of breath. Patient denies nausea vomiting or diarrhea. Patient denies any urinary burning or frequency. Also discussed with orthopedic PA on reinitiation of eliquis will follow-up. Objective - Vital Signs Vital signs: Vital Signs Temp 97.4 F L 07/04/21 19:30 Pulse 70 07/04/21 19:30 Resp 22 07/04/21 19:30 BP 120/59 07/04/21 19:30 Pulse Ox 98 07/05/21 07:48 Intake & Output 07/04/21 07/05/21 07/05/21 18:59 06:59 18:59 Intake Total 500 Balance 500 Intake: Intake, IV Titration 500 Amount Vancomycin 2,250 mg In 500 Sodium Chloride 0.9% 500 ml 500 ml @ 167 mls/hr IVPB Q16H [facility] Rx#: [id number] Other: Voiding Method Urinal - Exam In general patient is alert and oriented 3 in no apparent distress Head normocephalic and atraumatic Neck supple no JVD no goiter Lungs clear to auscultation bilaterally no wheezing or crackles Heart regular rate and rhythm S1-S2, no rub or gallop Abdomen is soft nontender nondistended positive bowel sounds no hepatosplenomegaly Extremities no edema. Left shoulder erythema and warmth Neuro alert and orientated to 3 - Labs CBC & Chem 7: 07/04/21 07:19 07/05/21 05:46 Labs: Abnormal Lab Results - Last 24 Hours (Table) 07/04/21 07/05/21 Range/Units 07:19 05:46 MCV 99.2 H (80.0-97.0) fL MCHC 30.8 L (32.0-37.0) g/dL RDW 14.6 H (11.5-14.5) % Immature Gran # 0.15 H (0.00-0.04) X 10*3/uL Creatinine 1.33 H (0.66-1.25) mg/dL Microbiology - Last 24 Hours (Table) 07/02/21 13:14 Gram Stain - Final Shoulder - Left Wound Culture - Final 07/02/21 13:14 Gram Stain - Final Shoulder - Left Wound Culture - Final 07/01/21 20:58 Blood Culture - Preliminary Blood No Growth after 72 hours 07/01/21 20:41 Blood Culture - Preliminary Blood No Growth after 72 hours Assessment and Plan Assessment: 1. Left shoulder wound infection. patient is postsurgical 12 days ago status post left shoulder hemiarthroplasty status post I&D on 07/02/2021 2. History of paroxysmal atrial fibrillation patient is maintained on eliquis at home this is currently on hold until decision made by surgical services for p ossible surgical intervention 3. History of essential hypertension 4. History of GERD 5. History of previous cardiac catheterization 6. History of chronic systolic congestive heart failure DT prophylaxis SCDs until cleared by surgery to resume home dose of eliquis. GI prophylaxis Protonix Infectious disease following Status post incision and drainage of left shoulder on 07/02/2021 Blood culture ordered Repeat labs ordered Social work consult placed patient will likely need IV antibiotics upon discharge per ID recommendation Thank you for this consultation we'll continue to follow patient closely throughout stay
[2021-07-05] MEDS ORDERED: LIDOCAINE 1% INJ 10MG/ML (5 ML VIAL-PF) SQ ONE (14:25)
--- NOTE | 2021-07-05 14:48 | IR ---
PICC LINE PLACEMENT: HISTORY: Infection requiring long-term antibiotic therapy PROCEDURE: Ultrasound and fluoroscopic guidance of PICC line placement. COMPLICATIONS: None ANESTHESIA: 1. 1% Lidocaine locally. FINDINGS/TECHNIQUE: The procedure was explained to the patient. The risks, complications, benefits and alternatives were discussed and any questions were answered. Informed consent was obtained. The patient was placed supine on the fluoroscopic table and prepped and draped in the usual sterile fash ion. Utilizing a 21 gauge needle and sonographic and fluoroscopic guidance, access in the right bas ilic vein was achieved and there is placement of a 0.018 guidewire. The vein is patent. A 4-F sheat h was placed over the guidewire. The guidewire and dilator were removed and a 4-F. PICC line was kemal payton through the sheath with the tip at the level of the SVC. The sheath was removed, the catheter wa s flushed and sutured into position. The patient was stable throughout the procedure and remained st able upon discharge from the Department of Radiology. The vein puncture was patent under ultrasound. A pfeiffer scale image was obtained to document patency of the vein punctured. All elements of the maximal barrier technique were utilized. FLUOROSCOPY TIME: 0.1 minute and one image submitted IMPRESSION: Successful PICC line placement under ultrasound and fluoroscopic guidance.
[2021-07-05] MEDS: SERTRALINE 100 MG TAB PO SCH (16:35)
[2021-07-05] MEDS: VITAMIN E (DL,TOCOPHERYL ACET) 400 UNIT (180 MG) CAP PO SCH (16:35)
[2021-07-05] MEDS: NON FORMULARY DRUG (Mirabegron [Myrbetriq] 25 MG Tab.Er.24h) PO SCH (16:36)
[2021-07-05] MEDS: CHOLECALCIFEROL 25 MCG (1000 IU) TABLET PO SCH (16:36)
[2021-07-05] MEDS: ACETAMINOPHEN TAB 500 MG TAB PO SCH (20:08)
[2021-07-05] MEDS: APIXABAN 5 MG TAB PO SCH (20:09)
[2021-07-05] MEDS: TEMAZEPAM 15 MG CAP PO SCH (21:47)
[2021-07-06] MEDS: VANCOMYCIN 2,250 MG in SODIUM CHLORIDE 0.9% 500 ML 500 ML IVPB SCH (01:38)
[2021-07-06] MEDS: PANTOPRAZOLE 40 MG TABLET PO SCH (07:53)
[2021-07-06] MEDS: APIXABAN 5 MG TAB PO SCH ×2 (07:54→21:17)
[2021-07-06] MEDS: METOPROLOL TARTRATE 25 MG TAB PO SCH ×2 (07:54→21:17)
[2021-07-06] MEDS: ALFUZOSIN HCL 10 MG PO SCH (07:54)
[2021-07-06] MEDS: FUROSEMIDE 40 MG TAB PO SCH (07:55)
--- NOTE | 2021-07-06 08:04 | P.PN ---
Subjective Progress Note Date: 07/04/21 Principal diagnosis: Left shoulder infection Patient is a 80-year male with multiple comorbidities including A. 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 On today's evaluation that is 07/04/2021 patient denies having any fever or any chills, he is breathing comfortably pain to the left shoulder is currently controlled no chest pain shortness of breath or cough no abdominal pain no diarrhea Objective - Vital Signs Vital signs: Vital Signs Temp 97.4 F L 07/04/21 11:21 Pulse 108 H 07/04/21 11:21 Resp 14 07/04/21 11:21 BP 116/77 07/04/21 11:21 Pulse Ox 97 07/04/21 13:08 Intake & Output 07/03/21 07/04/21 07/04/21 18:59 06:59 18:59 Output Total 600 Balance -600 Output: Stool 600 Other: Voiding Method Urinal Urinal # Voids 1 # Bowel Movements 1 - Exam GENERAL DESCRIPTION: An elderly male lying in bed in no distress RESPIRATORY SYSTEM: Unlabored breathing , decreased breath sounds at bases HEART: S1 S2 regular rate and rhythm , ABDOMEN: Soft , no tenderness EXTREMITIES: No edema feet - Labs CBC & Chem 7: 07/04/21 07:19 07/05/21 05:46 Labs: Abnormal Lab Results - Last 24 Hours (Table) 07/04/21 07/04/21 Range/Units 07:19 07:19 MCV 99.2 H (80.0-97.0) fL MCHC 30.8 L (32.0-37.0) g/dL RDW 14.6 H (11.5-14.5) % Immature Gran # 0.15 H (0.00-0.04) X 10*3/uL BUN 21 H (9-20) mg/dL Creatinine 1.26 H (0.66-1.25) mg/dL Alkaline Phosphatase 142 H (38-126) U/L Microbiology - Last 24 Hours (Table) 07/01/21 20:58 Blood Culture - Preliminary Blood No Growth after 48 hours 07/01/21 20:41 Blood Culture - Preliminary Blood No Growth after 48 hours 07/02/21 13:14 Gram Stain - Preliminary Shoulder - Left Wound Culture - Preliminary 07/02/21 13:14 Gram Stain - Preliminary Shoulder - Left Wound Culture - Preliminary Assessment and Plan (1) Wound infection after surgery Current Visit: Yes Status: Acute Code(s): T81.49XA - INFECTION FOLLOWING A PROCEDURE, OTHER SURGICAL SITE, INIT SNOMED Code(s): 91860425 Plan: 1patient presented the hospital with left shoulder swelling redness in this patient did have evidence of left shoulder infection with recent left shoulder hemiarthroplasty on 06/19/2021 will need to cover for the gram-positive skin yulissa to be the likely pathogen such as staph aureus. 2vancomycin pharmacy to dose target trough of 15 while watching kidney function and vancomycin trough closely. 3patient will likely need IV antibiotic therapy followed by long-term suppressive antibiotic as the patient did have underlying hardware with concern for possible infection with a discharge to medical on the basis of final culture Time with Patient: Less than 30
--- NOTE | 2021-07-06 08:06 | P.PN ---
Subjective Progress Note Date: 07/05/21 Principal diagnosis: Left shoulder infection Patient is a 80-year male with multiple comorbidities including A. 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 On today's evaluation that is 07/05/2021 patient remains to be afebrile, the patient is breathing comfortably pain to the left shoulder is currently controlled no chest pain shortness of breath or cough no abdominal pain no diarrhea Objective - Vital Signs Vital signs: Vital Signs Temp 97.5 F L 07/05/21 10:54 Pulse 106 H 07/05/21 10:54 Resp 16 07/05/21 10:54 BP 128/81 07/05/21 10:54 Pulse Ox 93 L 07/05/21 10:54 Intake & Output 07/04/21 07/05/21 07/05/21 18:59 06:59 18:59 Intake Total 500 Balance 500 Intake: Intake, IV Titration 500 Amount Vancomycin 2,250 mg In 500 Sodium Chloride 0.9% 500 ml 500 ml @ 167 mls/hr IVPB Q16H [facility] Rx#: [id number] Other: Voiding Method Urinal Urinal - Exam GENERAL DESCRIPTION: An elderly male lying in bed in no distress RESPIRATORY SYSTEM: Unlabored breathing , decreased breath sounds at bases HEART: S1 S2 regular rate and rhythm , ABDOMEN: Soft , no tenderness EXTREMITIES: Left shoulder incision is intact and did have some bleeding no significant redness or foul-smelling drainage - Labs CBC & Chem 7: 07/04/21 07:19 07/05/21 05:46 Labs: Abnormal Lab Results - Last 24 Hours (Table) 07/05/21 Range/Units 05:46 Creatinine 1.33 H (0.66-1.25) mg/dL Microbiology - Last 24 Hours (Table) 07/02/21 13:14 Anaerobic Culture - Preliminary Shoulder - Left 07/02/21 13:14 Anaerobic Culture - Preliminary Shoulder - Left 07/02/21 13:14 Gram Stain - Final Shoulder - Left Wound Culture - Final 07/02/21 13:14 Gram Stain - Final Shoulder - Left Wound Culture - Final 07/01/21 20:58 Blood Culture - Preliminary Blood No Growth after 72 hours 07/01/21 20:41 Blood Culture - Preliminary Blood No Growth after 72 hours Assessment and Plan (1) Wound infection after surgery Current Visit: Yes Status: Acute Code(s): T81.49XA - INFECTION FOLLOWING A PROCEDURE, OTHER SURGICAL SITE, INIT SNOMED Code(s): 95340586 Plan: 1patient presented the hospital with left shoulder swelling redness in this patient did have evidence of left shoulder infection with recent left shoulder hemiarthroplasty on 06/19/2021 will need to cover for the gram-positive skin yulissa to be the likely pathogen such as staph aureus. Patient however is afebrile white count is normal consult for possible hematoma rather than infection, with cultures negative so far. We'll discontinue the vancomycin and empirically covered with the Rocephin and check inflammatory markers, at the bedside she did have multiple questions were answered Time with Patient: Less than 30
[2021-07-06 09:23] LABS: Basophils # (A) 0.05 X 10*3/uL (0.00-0.10); Basophils % (A) 0.6 %; Eosinophils # (A) 0.16 X 10*3/uL (0.04-0.35); Eosinophils % (A) 1.9 %; HCT 40.1 % (39.6-50.0); HGB 12.1 g/dL (13.0-17.0); Immature Grans, Automated 1.7 %; Lymphocytes # (A) 1.14 X 10*3/uL (0.90-5.00); Lymphocytes % (A) 13.5 %; MCH 30.3 pg (27.0-32.0); MCHC 30.2 g/dL (32.0-37.0); MCV 100.3 fL (80.0-97.0); Mean Platelet Volume 11.1 fL (9.5-12.2); Monocytes # (A) 0.77 X 10*3/uL (0.20-1.00); Monocytes % (A) 9.1 %; NRBC Per 100 WBC 0 /100 WBCS (0.0-0.0); Neutrophils # (A) 6.19 X 10*3/uL (1.80-7.70); Neutrophils % (A) 73.2 %; Platelet Count 185 X 10*3/uL (140-440); RDW 14.7 % (11.5-14.5); WBC 8.45 X 10*3/uL (4.50-10.00)
[2021-07-06 09:28] LABS: Albumin 3.3 g/dL (3.8-4.9); Albumin/Globulin Ratio 1.74 (1.60-3.17); Anion Gap 9.6 mmol/L (10.00-18.00); BUN/Creat Ratio 16.14 Ratio (12.00-20.00); Blood Urea Nitrogen 22.6 mg/dL (9.0-27.0); Calcium 8.6 mg/dL (8.7-10.3); Carbon Dioxide 26.4 mmol/L (20.0-27.5); Globulin 1.9 g/dL (1.6-3.3); Non-African American GFR(CKD) 47.4 (60.0-200.0); Potassium 4.1 mmol/L (3.5-5.5); Total Bilirubin 0.5 mg/dL (0.30-1.20); Total Protein 5.2 g/dL (6.2-8.2)
--- NOTE | 2021-07-06 10:16 | P.PN ---
Subjective Progress Note Date: 07/06/21 This is a 80-year-old male who is status post incision and drainage of the left shoulder. This is postoperative day #4 and patient is seen and evaluated at bedside today. Patient states that his pain is well-controlled and he denies any new complaints today. Objective - Vital Signs Vital signs: Vital Signs Temp 98.5 F 07/06/21 04:43 Pulse 70 07/06/21 04:43 Resp 18 07/06/21 04:43 BP 112/63 07/06/21 04:43 Pulse Ox 95 07/06/21 04:43 Intake & Output 07/05/21 07/06/21 07/06/21 18:59 06:59 18:59 Intake Total 500 500 180 Balance 500 500 180 Intake: Intake, IV Titration 500 500 Amount Vancomycin 2,250 mg In 500 500 Sodium Chloride 0.9% 500 ml 500 ml @ 167 mls/hr IVPB Q16H [facility] Rx#: [id number] Oral 180 Other: Voiding Method Urinal Urinal - Exam Vital signs are stable. Patient is in no acute distress and is alert and oriented 3. Incision is clean, dry, and intact. There is mild bloody drainage present. There is mild swelling present over the left shoulder. Calf is soft and nontender to palpation. Sensation intact. Neurovascular status and circulatory status are intact. - Labs CBC & Chem 7: 07/06/21 05:17 07/06/21 05:17 Labs: Abnormal Lab Results - Last 24 Hours (Table) 07/06/21 07/06/21 Range/Units 05:17 05:17 RBC 4.00 L (4.40-5.60) X 10*6/uL Hgb 12.1 L (13.0-17.0) g/dL MCV 100.3 H (80.0-97.0) fL MCHC 30.2 L (32.0-37.0) g/dL RDW 14.7 H (11.5-14.5) % Immature Gran # 0.14 H (0.00-0.04) X 10*3/uL Anion Gap 9.60 L (10.00-18.00) mmol/L Est GFR (CKD-EPI)AfAm 55.0 L (60.0-200.0) Est GFR (CKD-EPI)NonAf 47.4 L (60.0-200.0) Calcium 8.6 L (8.7-10.3) mg/dL ALT 9 L (10-49) U/L Total Protein 5.2 L (6.2-8.2) g/dL Albumin 3.3 L (3.8-4.9) g/dL Microbiology - Last 24 Hours (Table) 07/01/21 20:58 Blood Culture - Preliminary Blood No Growth after 96 hours 07/01/21 20:41 Blood Culture - Preliminary Blood No Growth after 96 hours 07/02/21 13:14 Anaerobic Culture - Preliminary Shoulder - Left 07/02/21 13:14 Anaerobic Culture - Preliminary Shoulder - Left 07/02/21 13:14 Gram Stain - Final Shoulder - Left Wound Culture - Final 07/02/21 13:14 Gram Stain - Final Shoulder - Left Wound Culture - Final Assessment and Plan (1) Status post incision and drainage Current Visit: Yes Status: Acute Code(s): Z98.890 - OTHER SPECIFIED POSTPROCEDURAL STATES SNOMED Code(s): 077111504 (2) Wound infection after surgery Current Visit: Yes Status: Acute Code(s): T81.49XA - INFECTION FOLLOWING A PROCEDURE, OTHER SURGICAL SITE, INIT SNOMED Code(s): 05435501 Plan: 1. Gram stain is negative. Cultures are pending. 2. Daily dressing changes. 3. Continue routine postoperative care and pain control. 4. Appreciate input from infectious disease and internal medicine. 5. Patient has a PICC line and is awaiting determination of discharge antibiotics per infectious disease.
[2021-07-06 11:09] LABS: C Reactive Protein 1.2 mg/dL (0.00-0.80)
[2021-07-06 12:04] LABS: Erythrocyte Sedimentation Rate 25 mm/Hr (0-20)
[2021-07-06] MEDS: traMADol 50 MG TAB PO PRN (13:43)
[2021-07-06] MEDS: VITAMIN E (DL,TOCOPHERYL ACET) 400 UNIT (180 MG) CAP PO SCH (16:29)
[2021-07-06] MEDS: NON FORMULARY DRUG (Mirabegron [Myrbetriq] 25 MG Tab.Er.24h) PO SCH (16:29)
[2021-07-06] MEDS: SERTRALINE 100 MG TAB PO SCH (16:29)
[2021-07-06] MEDS: CHOLECALCIFEROL 25 MCG (1000 IU) TABLET PO SCH (16:29)
[2021-07-06] MEDS ORDERED: VANCOMYCIN TROUGH DUE 1 EACH MISC MISCELLANE ONE (17:00)
[2021-07-06] MEDS: TEMAZEPAM 15 MG CAP PO SCH (21:17)
[2021-07-06] MEDS: ACETAMINOPHEN TAB 500 MG TAB PO SCH (21:17)
[2021-07-07] MEDS: traMADol 50 MG TAB PO PRN ×3 (01:24→13:19)
[2021-07-07] MEDS: APIXABAN 5 MG TAB PO SCH (07:51)
[2021-07-07] MEDS: METOPROLOL TARTRATE 25 MG TAB PO SCH (07:51)
[2021-07-07] MEDS: PANTOPRAZOLE 40 MG TABLET PO SCH (07:51)
[2021-07-07] MEDS: CHOLECALCIFEROL 25 MCG (1000 IU) TABLET PO SCH (07:51)
[2021-07-07] MEDS: FUROSEMIDE 40 MG TAB PO SCH (07:51)
[2021-07-07] MEDS: ALFUZOSIN HCL 10 MG PO SCH (07:52)
--- NOTE | 2021-07-07 09:51 | P.PN ---
Subjective Progress Note Date: 07/07/21 This is a 80-year-old male who is status post incision and drainage of the left shoulder. Patient is seen and evaluated at bedside today. Patient states that his pain is well-controlled and he denies any new complaints today. Objective - Vital Signs Vital signs: Vital Signs Temp 97.7 F 07/07/21 05:00 Pulse 62 07/07/21 05:00 Resp 16 07/07/21 05:00 BP 113/66 07/07/21 05:00 Pulse Ox 92 L 07/07/21 05:00 Intake & Output 07/06/21 07/07/21 07/07/21 18:59 06:59 18:59 Intake Total 540 590 Balance 540 590 Intake: Oral 540 590 Other: Voiding Method Urinal # Voids 3 # Bowel Movements 1 - Exam Vital signs are stable. Patient is in no acute distress and is alert and oriented 3. Incision is clean, dry, and intact. There is mild bloody drainage present. There is mild swelling present over the left shoulder. Calf is soft and nontender to palpation. Sensation intact. Neurovascular status and circ ulatory status are intact. - Labs CBC & Chem 7: 07/06/21 05:17 07/06/21 05:17 Labs: Abnormal Lab Results - Last 24 Hours (Table) 07/06/21 07/06/21 Range/Units 05:17 05:17 ESR 25 H (0-20) mm/Hr C-Reactive Protein 1.20 H (0.00-0.80) mg/dL Microbiology - Last 24 Hours (Table) 07/01/21 20:58 Blood Culture - Preliminary Blood No Growth after 120 hours 07/01/21 20:41 Blood Culture - Preliminary Blood No Growth after 120 hours Assessment and Plan (1) Status post incision and drainage Current Visit: Yes Status: Acute Code(s): Z98.890 - OTHER SPECIFIED POSTPROCEDURAL STATES SNOMED Code(s): 493711100 (2) Wound infection after surgery Current Visit: Yes Status: Acute Code(s): T81.49XA - INFECTION FOLLOWING A PROCEDURE, OTHER SURGICAL SITE, INIT SNOMED Code(s): 66730333 Plan: 1. Gram stain is negative. Cultures are pending. 2. Daily dressing changes. 3. Continue routine postoperative care and pain control. 4. Appreciate input from infectious disease and internal medicine. 5. Patient has a PICC line and is awaiting determination of discharge antibiot ics per infectious disease.
--- NOTE | 2021-07-07 11:52 | P.PN ---
Subjective Progress Note Date: 07/07/21 Nick Vora, is a 80-year-old male patient who presented to the ER with concerns of infection to left shoulder. Patient recently underwent orthopedic surgery [address] jovel. Patient started to develop some soreness presented to PCP where was discovered that it. Infected patient was started on Bactrim patient bowel had followed with Dr. Sarkar and was instructed to come to ER for further evaluation. Patient has a past medical history for CVA, GERD, hearing disorder, osteoarthritis, prostate disorder, anxiety and ex-smoker. X- ray of left shoulder was completed showing no fracture no change compared to old exam. On examination surgical wound site erythematous and warm. At this time infectious disease services have been consulted. Patient has been admitted under surgical services. Patient denies chest pain or shortness of breath. Patient denies nausea vomiting or diarrhea. Patient denies any urinary burning or frequency. On 07/03/2021 patient was seen and examined on the medical floor he is alert and oriented 3 in no apparent distress, vital exam reveals a temperature of 97.4 pulse 110 respiration 18 blood pressure 126/76 pulse ox 88% on room air, white blood count is 9.7 hemoglobin 13.8 platelet count 260 sodium 141 potassium 4.1 chloride 102 CO2 27.9 BUN 19 creatinine 1.3. Patient underwent incision and drainage of the left shoulder on 07/01/2021 wound cultures are still pending patient is maintained on IV vancomycin infectious disease are following On 07/04/2021 patient was seen and examined on the medical floor he is alert and oriented 3 in no apparent distress, he is still complaining of shoulder pain but this feeling better there is no fever or chills no headache or dizziness no chest pain no shortness of breath no cough no nausea or vomiting no abdominal pain no diarrhea no blood in the stool no burning with urination no frequency or urgency no hematuria. At this time patient is off Eliquis, will discuss with surgery possibility of restarting Eliquis On 07/05/2021 patient is alert and oriented 3. Patient remains on IV vancomyci n. Per infectious disease patient will likely need IV antibiotic therapy followed by long-term suppressive antibiotic as patient did have underlying hardware with concern of possible infection this was discussed with patient. Will consult case management and social work services for discharge planning. At this time patient denies chest pain or shortness of breath. Patient denies nausea vomiting or diarrhea. Patient denies any urinary burning or frequency. Also discussed with orthopedic PA on reinitiation of eliquis will follow-up. On 07/07/2021 patient is alert and oriented 3. Antibiotics have been adjusted to IV Rocephin. PICC line is in place. Awaiting further recommendation from surgical and infectious disease services. Patient has been resumed on eliquis. At this time patient denies chest pain or shortness breath. Patient denies nausea vomiting or diarrhea. Patient denies any urinary burning or frequency Objective - Vital Signs Vital signs: Vital Signs Temp 97.7 F 07/07/21 05:00 Pulse 62 07/07/21 05:00 Resp 16 07/07/21 05:00 BP 113/66 07/07/21 05:00 Pulse Ox 92 L 07/07/21 05:00 Intake & Output 07/06/21 07/07/21 07/07/21 18:59 06:59 18:59 Intake Total 540 590 Balance 540 590 Intake: Oral 540 590 Other: Voiding Method Urinal Urinal # Voids 3 # Bowel Movements 1 - Exam In general patient is alert and oriented 3 in no apparent distress Head normocephalic and atraumatic Neck supple no JVD no goiter Lungs clear to auscultation bilaterally no wheezing or crackles Heart regular rate and rhythm S1-S2, no rub or gallop Abdomen is soft nontender nondistended positive bowel sounds no hepatospl enomegaly Extremities no edema. Left shoulder erythema and warmth Neuro alert and orientated to 3 - Labs CBC & Chem 7: 07/06/21 05:17 07/06/21 05:17 Labs: Abnormal Lab Results - Last 24 Hours (Table) 07/06/21 Range/Units 05:17 ESR 25 H (0-20) mm/Hr Microbiology - Last 24 Hours (Table) 07/01/21 20:58 Blood Culture - Preliminary Blood No Growth after 120 hours 07/01/21 20:41 Blood Culture - Preliminary Blood No Growth after 120 hours Assessment and Plan Assessment: 1. Left shoulder wound infection. patient is postsurgical 12 days ago status post left shoulder hemiarthroplasty status post I&D on 07/02/2021 2. History of paroxysmal atrial fibrillation patient is maintained on eliquis at home this is currently on hold until decision made by surgical services for possible surgical intervention 3. History of essential hypertension 4. History of GERD 5. History of previous cardiac catheterization 6. History of chronic systolic congestive heart failure DT prophylaxis SCDs until cleared by surgery to resume home dose of eliquis. GI prophylaxis Protonix Infectious disease following Status post incision and drainage of left shoulder on 07/02/2021 Blood culture ordered Repeat labs ordered Social work consult placed patient will likely need IV antibiotics upon discharge per ID recommendation Thank you for this consultation we'll continue to follow patient closely throughout stay
--- NOTE | 2021-07-07 12:52 | CDI ---
Documentation Clarification Form Date: 07/04/2021 03:36:00 PM From: Cele Serra RN, CCDS Admit Date: 07/03/2021 04:43:00 PM Patient Name: Nick Vora Visit Number: [id number] Discharge Date: ATTENTION: The Clinical Documentation Specialists (CDI) and [facility] Coding Staff appreciate your assistance in clarifying documentation. Please respond to the clarification below the line at the bottom and electronically sign. The CDI & [facility] Coding staff will review the response and follow-up if needed. Please note: Queries are made part of the Legal Health Record. If you have any questions, please contact the author of this message via ITS. Dr. Juanpablo Barrios A debridement is documented in the operative report on 07/02/21. Additional clarification regarding the procedure is requested. 07/02 Operative report: Any devitalized tissue was removed sharply with a knife and the skin edges were debrided sharply with a knife as well. History/Risk Factors: CVA, Osteoarthritis, Former smoker Clinical Indicators: 80-year-old male had a revision left shoulder hemiarthroplasy. 07/02/21 operative findings consistent with a superficial wound infection of left shoulder. Operative report: Any devitalized tissue was removed sharply with a knife and the skin edges were debrided sharply with a knife as well. Treatment: Vancomycin 2,500 MG IVPB ONCE Then Q 16 HRS (PTD) Kefzol 2 GM IVPB Q 8 HRS (07/01-07/03) Daily dressing changes Ultram 50MG PO Q 6H PRN Pain (07/02-07/04) Please further clarify the technique used for debridement in the procedure: [ ] Excisional debridement (the removal of necrotic, devitalized tissue or slough by means of cutting away of tissue) [ ] Non-excisional debridement (the removal of necrotic, devitalized tissue or slough by means of flushing, brushing, or washing. (Irrigation) [ ] Other; please specify [ ] Unable to determine Five elements required for accurate and compliant documentation of a debridement: Technique used (e.g., excisional, excised, cutting, brushing, jet lavage etc.) Instrument(s) used (e.g., scalpel, curette, etc.) Nature of the tissue removed (e.g., necrotic, devitalized tissues, non-viable tissue, etc.) Appearance and size of the wound (e.g., down to fresh bleeding tissue, 7cm x 10cm, etc.) Depth of the debridement* (e.g., skin, subcutaneous tissue, fascia, muscle, bone, etc.) (Template Last Revised: April 2020) Excisional debridement (the removal of necrotic, devitalized tissue or slough by means of cutting away of tissue) MTDD
[2021-07-07 12:54] VITALS: BP 119/77; PULSE 77; RESP 15; TEMP 98.1
--- NOTE | 2021-07-07 14:24 | P.DS ---
Providers Date of admission: 07/03/21 16:43 Expected date of discharge: 07/07/21 Attending physician: Juanpablo Barrios Consults: 07/01/21 20:00 Consult Physician Urgent Consulting Provider: Juan C Beltran Consult Reason/Comments: Left shoulder surgical wound infection Do you want consulting provider notified?: Yes Consult Physician Urgent Consulting Provider: Carl Alberts Consult Reason/Comments: Left shoulder surgical wound infection Do you want consulting provider notified?: Yes Primary care physician: Juan C Beltran - Discharge Diagnosis(es) (1) Status post incision and drainage Current Visit: Yes Status: Acute (2) Wound infection after surgery Current Visit: Yes Status: Acute Hospital Course: This is a 80-year-old male who presented as an outpatient with increased swelling and redness of his left shoulder incision. Patient is status post revision left shoulder hemiarthroplasty. Patient was placed on oral antibiotics and instructed to present to the emergency room if his symptoms did not improve. The patient presented for evaluation in the emergency room on 07/01/2021 and was admitted for IV antibiotics and orthopedic evaluation. After discussion and consideration patient elects to proceed with incision and drainage of the left shoulder. The patient is seen preoperatively. Patient is admitted to [facility] on 07/01/2021 and incision and drainage of the left shoulder is performed on 07/02/2021. The procedures performed without complication or sequelae. The patient is doing well postoperatively. Labs and vital signs are stable on day of discharge. Cultures are negative. P atient has remained afebrile. Infectious disease has been managing antibioitcs. On day of discharge vital signs are stable. Patient is in no acute distress and is alert and oriented 3. Incision is clean, dry, and intact. There is mild bloody drainage present. There is mild swelling present over the left shoulder. Calf is soft and nontender to palpation. Sensation intact. Neurovascular status and circulatory status are intact. Patient is discharged home on oral antibiotics in good condition. Please see med rec for accurate list of home medications. Patient Condition at Discharge: Stable Plan - Discharge Summary Discharge Rx Participant: Yes New Discharge Prescriptions: New Sennosides [Senokot] 2 tab PO DAILY PRN #60 tablet PRN Reason: Constipation traMADol HCl [Ultram] 1 - 2 tab PO Q6H PRN #32 tab PRN Reason: Pain No Action Temazepam [Restoril] 30 mg PO HS Sertraline HCl [Zoloft] 200 mg PO DAILY@1500 Mirabegron [Myrbetriq] 25 mg PO DAILY@1500 Cholecalciferol [Vitamin D3 (25 Mcg = 1000 Iu)] 1,000 unit PO DAILY@1500 Apixaban [Eliquis] 5 mg PO BID #60 tab Vitamin E (Dl,Tocopheryl Acet) [Vitamin E (400 Iu = 180 mg)] 400 unit PO DAILY@1500 Acetaminophen Tab [Tylenol] 1,000 mg PO HS Furosemide [Lasix] 40 mg PO DAILY Alfuzosin HCl [Uroxatral] 10 mg PO DAILY Sennosides [Senokot] 2 tab PO DAILY PRN #60 tablet PRN Reason: Constipation Sulfamethox-Tmp 800-160Mg [Bactrim DS 800-160 mg] 1 tab PO Q12HR Metoprolol Tartrate [Lopressor] 25 mg PO BID traMADol HCl [Ultram] 50 - 100 mg PO Q6HR PRN PRN Reason: Pain Pantoprazole [Protonix] 40 mg PO DAILY Discharge Medication List Sertraline HCl [Zoloft] 200 mg PO DAILY@1500 10/30/13 [History] Temazepam [Restoril] 30 mg PO HS 10/30/13 [History] Cholecalciferol [Vitamin D3 (25 Mcg = 1000 Iu)] 1,000 unit PO DAILY@1500 06/10/18 [History] Mirabegron [Myrbetriq] 25 mg PO DAILY@1500 06/10/18 [History] Apixaban [Eliquis] 5 mg PO BID #60 tab 06/12/18 [Rx] Acetaminophen Tab [Tylenol] 1,000 mg PO HS 08/08/18 [History] Vitamin E (Dl,Tocopheryl Acet) [Vitamin E (400 Iu = 180 mg)] 400 unit PO DAILY@1500 08/08/18 [History] Furosemide [Lasix] 40 mg PO DAILY 09/17/18 [History] Alfuzosin HCl [Uroxatral] 10 mg PO DAILY 11/18/19 [History] traMADol HCl [Ultram] 50 - 100 mg PO Q6HR PRN 06/14/21 [History] Sennosides [Senokot] 2 tab PO DAILY PRN #60 tablet 06/19/21 [Rx] Metoprolol Tartrate [Lopressor] 25 mg PO BID 07/01/21 [History] Pantoprazole [Protonix] 40 mg PO DAILY 07/01/21 [History] Sulfamethox-Tmp 800-160Mg [Bactrim DS 800-160 mg] 1 tab PO Q12HR 07/01/21 [History] Sennosides [Senokot] 2 tab PO DAILY PRN #60 tablet 07/06/21 [Rx] traMADol HCl [Ultram] 1 - 2 tab PO Q6H PRN #32 tab 07/06/21 [Rx] Follow up Appointment(s)/Referral(s): [facility], [NON-STAFF] - 1 Week [facility]Infusion [NON-STAFF] - 1 Week [facility], [REFERRING] - 1 Week Juan C Beltran MD [Primary Care Provider] - 1-2 days Juanpablo Barrios DO [Doctor of Osteopathic Medicine] - 1 Week Activity/Diet/Wound Care/Special Instructions: Daily dressing changes. Kimberly to be removed in 10-14 days. Please follow-up with [facility] and call with any questions or concerns, . Discharge Disposition: HOME SELF-CARE
--- NOTE | 2021-07-07 14:36 | P.PN ---
Subjective Progress Note Date: 07/06/21 Principal diagnosis: Left shoulder infection Patient is a 80-year male with multiple comorbidities including A. 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 On today's evaluation that is 07/06/2021 patient remains to be afebrile, the patient is breathing comfortably on room air, the patient pain to the left shoulder is currently controlled no chest pain shortness of breath or cough no abdominal pain no diarrhea Objective - Vital Signs Vital signs: Vital Signs Temp 98.3 F 07/06/21 11:52 Pulse 73 07/06/21 11:52 Resp 15 07/06/21 11:52 BP 109/74 07/06/21 11:52 Pulse Ox 94 L 07/06/21 11:52 Intake & Output 07/05/21 07/06/21 07/06/21 18:59 06:59 18:59 Intake Total 500 500 360 Balance 500 500 360 Intake: Intake, IV Titration 500 500 Amount Vancomycin 2,250 mg In 500 500 Sodium Chloride 0.9% 500 ml 500 ml @ 167 mls/hr IVPB Q16H [facility] Rx#: [id number] Oral 360 Other: Voiding Method Urinal Urinal - Exam GENERAL DESCRIPTION: An elderly male lying in bed in no distress RESPIRATORY SYSTEM: Unlabored breathing , decreased breath sounds at bases HEART: S1 S2 regular rate and rhythm , ABDOMEN: Soft , no tenderness EXTREMITIES: Left shoulder incision is intact and did have some bleeding no significant redness or foul-smelling drainage - Labs CBC & Chem 7: 07/06/21 05:17 07/06/21 05:17 Labs: Abnormal Lab Results - Last 24 Hours (Table) 07/06/21 07/06/21 Range/Units 05:17 05:17 RBC 4.00 L (4.40-5.60) X 10*6/uL Hgb 12.1 L (13.0-17.0) g/dL MCV 100.3 H (80.0-97.0) fL MCHC 30.2 L (32.0-37.0) g/dL RDW 14.7 H (11.5-14.5) % Immature Gran # 0.14 H (0.00-0.04) X 10*3/uL ESR 25 H (0-20) mm/Hr Anion Gap 9.60 L (10.00-18.00) mmol/L Est GFR (CKD-EPI)AfAm 55.0 L (60.0-200.0) Est GFR (CKD-EPI)NonAf 47.4 L (60.0-200.0) Calcium 8.6 L (8.7-10.3) mg/dL ALT 9 L (10-49) U/L C-Reactive Protein 1.20 H (0.00-0.80) mg/dL Total Protein 5.2 L (6.2-8.2) g/dL Albumin 3.3 L (3.8-4.9) g/dL Microbiology - Last 24 Hours (Table) 07/01/21 20:58 Blood Culture - Preliminary Blood No Growth after 96 hours 07/01/21 20:41 Blood Culture - Preliminary Blood No Growth after 96 hours 07/02/21 13:14 Anaerobic Culture - Preliminary Shoulder - Left 07/02/21 13:14 Anaerobic Culture - Preliminary Shoulder - Left Assessment and Plan (1) Wound infection after surgery Current Visit: Yes Status: Acute Code(s): T81.49XA - INFECTION FOLLOWING A PROCEDURE, OTHER SURGICAL SITE, INIT SNOMED Code(s): 77003441 Plan: 1patient presented the hospital with left shoulder swelling redness in this patient did have evidence of left shoulder infection with recent left shoulder hemiarthroplasty on 06/19/2021 will need to cover for the gram-positive skin yulissa to be the likely pathogen such as staph aureus. Patient however is afebrile white count is normal consult for possible hematoma rather than infection, with cultures negative so far. Currently on Rocephin however can be switched to by mouth on discharge will discuss further with the orthopedic if there was no high clinical suspicious for infection at the time of surgery Time with Patient: Less than 30
--- NOTE | 2021-07-07 14:37 | P.PN ---
Subjective Progress Note Date: 07/07/21 Principal diagnosis: Left shoulder infection Patient is a 80-year male with multiple comorbidities including A. 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 On today's evaluation that is 07/07/2021 patient denies any fever or any chills, the patient is breathing comfortably on room air, the patient pain to the left shoulder is currently controlled , the patient denies chest pain shortness of breath or cough no abdominal pain no diarrhea Objective - Vital Signs Vital signs: Vital Signs Temp 98.1 F 07/07/21 11:23 Pulse 77 07/07/21 11:23 Resp 15 07/07/21 11:23 BP 119/77 07/07/21 11:23 Pulse Ox 94 L 07/07/21 11:23 Intake & Output 07/06/21 07/07/21 07/07/21 18:59 06:59 18:59 Intake Total 540 590 Balance 540 590 Intake: Oral 540 590 Other: Voiding Method Urinal Urinal # Voids 3 # Bowel Movements 1 - Exam GENERAL DESCRIPTION: An elderly male lying in bed in no distress RESPIRATORY SYSTEM: Unlabored breathing , decreased breath sounds at bases HEART: S1 S2 regular rate and rhythm , ABDOMEN: Soft , no tenderness EXTREMITIES: Left shoulder incision is intact and did have some bleeding no significant redness or foul-smelling drainage - Labs CBC & Chem 7: 07/06/21 05:17 07/06/21 05:17 Labs: Microbiology - Last 24 Hours (Table) 07/02/21 13:14 Anaerobic Culture - Final Shoulder - Left 07/02/21 13:14 Anaerobic Culture - Final Shoulder - Left 07/01/21 20:58 Blood Culture - Preliminary Blood No Growth after 120 hours 07/01/21 20:41 Blood Culture - Preliminary Blood No Growth after 120 hours Assessment and Plan (1) Wound infection after surgery Current Visit: Yes Status: Acute Code(s): T81.49XA - INFECTION FOLLOWING A PROCEDURE, OTHER SURGICAL SITE, INIT SNOMED Code(s): 44064749 Plan: 1patient presented the hospital with left shoulder swelling redness in this patient did have evidence of left shoulder infection with recent left shoulder hemiarthroplasty on 06/19/2021 will need to cover for the gram-positive skin yulissa to be the likely pathogen such as staph aureus. Patient however is afebrile w evelia count is normal consult for possible hematoma rather than infection, with cultures negative so far. I have detailed discussion with the orthopedic with low clinical suspicious for infection at the time of surgery, we will discontinue the PICC line and give a short course of oral Keflex on discharge Time with Patient: Less than 30
[2021-07-07] MEDS: VITAMIN E (DL,TOCOPHERYL ACET) 400 UNIT (180 MG) CAP PO SCH (14:57)
[2021-07-07] MEDS: SERTRALINE 100 MG TAB PO SCH (14:58)
[2021-07-07] MEDS: NON FORMULARY DRUG (Mirabegron [Myrbetriq] 25 MG Tab.Er.24h) PO SCH (14:58)
== END 2021-07-07 16:01 | disposition home health service (06) | DRG 857 ==
LOC: EC 18:05 → 5NMEDONC 20:05 → OBSVTOIN 07-03 16:43
PROVIDERS: ADMIT Orthopaedic Surgery; ATTEND Orthopaedic Surgery
PROC: 0JBF0ZZ Excision of Left Upper Arm Subcutaneous Tissue and Fascia, Open Approach (ICD-10-PCS; principal; 2021-07-02 12:00)
PROC: 02HV33Z Insertion of Infusion Device into Superior Vena Cava, Percutaneous Approach (ICD-10-PCS; 2021-07-05)
DX: T81.41XA Infection following a procedure, superficial incisional surgical site, initial encounter (principal); I50.22 Chronic systolic (congestive) heart failure; E78.5 Hyperlipidemia, unspecified; F41.9 Anxiety disorder, unspecified; H91.90 Unspecified hearing loss, unspecified ear; M19.90 Unspecified osteoarthritis, unspecified site; I11.0 Hypertensive heart disease with heart failure; I48.0 Paroxysmal atrial fibrillation; D69.6 Thrombocytopenia, unspecified; K21.9 Gastro-esophageal reflux disease without esophagitis; N42.9 Disorder of prostate, unspecified; K76.9 Liver disease, unspecified; H93.19 Tinnitus, unspecified ear; N40.0 Benign prostatic hyperplasia without lower urinary tract symptoms; Z79.01 Long term (current) use of anticoagulants; Z79.2 Long term (current) use of antibiotics; Z79.899 Other long term (current) drug therapy; Z82.49 Family history of ischemic heart disease and other diseases of the circulatory system; Z86.73 Personal history of transient ischemic attack (TIA), and cerebral infarction without residual deficits; Z87.442 Personal history of urinary calculi; Z87.891 Personal history of nicotine dependence; Z96.612 Presence of left artificial shoulder joint; Z96.653 Presence of artificial knee joint, bilateral; Z28.310 Unvaccinated for COVID-19; Z90.89 Acquired absence of other organs; Z98.890 Other specified postprocedural states; Z98.42 Cataract extraction status, left eye; Z98.41 Cataract extraction status, right eye
CPT/HCPCS: 36573; 80053; 82565; 83605; 85025; 85610; 85652; 85730; 86140; 87040; 87070; 87075; 87205; 94760; 99285

== ENCOUNTER → 2021-08-22 | Outpatient (CLI) | payer MEDICARE ==
--- NOTE | 2021-08-22 13:31 | MR ---
EXAMINATION TYPE: MR lumbar spine wo con DATE OF EXAM: 08/22/2021 COMPARISON: Prior exam MR lumbar spine 11/06/2019 HISTORY: Weakness, low back pain TECHNIQUE: Multiplanar, multisequence images of the lumbar spine were acquired without IV contrast. L1-L2: Stable disc appearance. No herniation, protrusion or disc bulging. No canal stenosis is pres ent. Foramina are patent bilaterally. L2-L3: Stable disc appearance. No herniation, protrusion or disc bulging. No canal stenosis is pres ent. Foramina are patent bilaterally. Some facet arthropathy changes are present. L3-L4: Stable disc appearance. Superior endplate of L4 extends minimally into the spinal canal simila r to prior. Minimal anterolisthesis grade 1 L3-4. Facet arthropathy with hypertrophy ligamentum flav um causes posterior lateral mass effect on the thecal sac, trefoil appearance of the thecal sac is pr esent due to posterior disc bulge centrally. Mild canal stenosis is present. Foramina are patent diana aterally. L4-L5: Similar disc appearance, some increased on T2-weighted sequences noted at the posterior aspect of the disc, there may be annular tear, there is posterior extension, right paracentral disc protrus ion causing some anterolateral mass effect on the thecal sac similar to prior exam. No herniation, p rotrusion or disc bulging. No canal stenosis is present. Foramina are patent bilaterally. There is marked facet arthropathy with hypertrophy ligamentum flavum causing posterior lateral mass effect on the thecal sac L5-S1: Stable disc appearance. No herniation, protrusion or disc bulging. No canal stenosis is pres ent. Foramina are patent bilaterally. Facet arthropathy changes are present. Lumbar segments are stable, loss of height at L4 is again noted with some associated low signal at th e superior endplate consistent with chronic compression fracture. Loss of disc signal is consistent with disc desiccation, similar appearance to prior exam at multiple levels Probable hemangioma again noted in the L5 level, there is multilevel spondylosis. No paraspinal masses are identified. Conus m edullaris has a normal appearance. Possible cortical cyst lower pole left kidney, extrarenal pelvis s uspected on the left IMPRESSION: Mild generative disc disease, there is multilevel facet arthropathy, evidence of prior compression fr acture superior endplate of L4 with loss of height of approximately 50% vertebral body, no significan t change
== END | disposition home or self-care (01) ==
LOC: RADMRIMAIN 09:14
PROVIDERS: ATTEND Internal Medicine
DX: M47.816 Spondylosis without myelopathy or radiculopathy, lumbar region (principal)
CPT/HCPCS: 72148

== ENCOUNTER → 2021-10-27 | Outpatient (CLI) | payer MEDICARE ==
--- NOTE | 2021-10-27 16:24 | CT ---
EXAMINATION TYPE: CT chest w con DATE OF EXAM: 10/27/2021 COMPARISON: 01/26/2021 HISTORY: 81-year-old male R05.1, cough, congestion and weakness. TECHNIQUE: Contiguous axial scanning of the chest after the administration of 70 mL of Isovue 300. C oronal/sagittal reconstructions performed. CT DLP: 639.60mGycm. Automatic exposure control utilized for a dose reduction. FINDINGS: Possible enlarging 2.5 cm posterior left thyroid nodule versus exophytic thyroid tissue, axial image 12. Thyroid ultrasound further evaluate. Heart upper limits of normal size without pericardial effusion. Mild LAD coronary artery calcificatio ns are present. Mild aneurysm aortic root at 4.3 cm. Mild aneurysm ascending aorta at 4.1 cm. Mild atherosclerotic arch calcifications with conventional branching anatomy. Ectatic upper descending thoracic aorta at 3.2 cm. Aorta at the thoracoabdominal junction aneurysmal at 3.3 cm. Large caliber to the main right and left pulmonary arteries measuring up to 3.4 cm suggesting underly ing pulmonary hypertension. No thoracic lymphadenopathy by CT size criteria. [id number] upper lung predominant centrilobular emphysema. Mild dependent atelectasis. Strandy scarring or atelectasis in the left greater than right lower lobes. There is a 1 cm inferior lingular pulmonary nodule. In retrospect, this measured 5 mm on 01/26/2021 an d blend in with the pulmonary vasculature. The previously described right basilar pulmonary nodule shows indolent behavior now measuring 7 mm ve rsus 5 mm, previously. Stable 1.1 cm cyst right hepatic dome. 1.7 cm hypodense lesion visualized upper pole left kidney like ly a vertical cyst. A couple nonobstructive 4 mm left renal calculi are noted. There is splenomegaly up to 17.5 cm, not significantly changed from prior. Further clinical correlation recommended. Bones: Left shoulder arthroplasty noted. [facility] throughout the mid and lower thoracic spine extending i nto the visualized upper lumbar spine. Accentuated mid to lower thoracic kyphosis. IMPRESSION: 1. Enlarging 1 cm inferior lingular pulmonary nodule. This measured 5 mm in retrospect and had previo usly blended with the pulmonary vasculature. Early lung cancer remains to be excluded. 2. Indolent behavior of the previous right basilar pulmonary nodule now measuring 7 mm versus 5 mm, p reviously. Ongoing surveillance advised. 3. Aneurysmal thoracic aorta. Aortic root measuring up to 4.3 cm. 4. Thyroid ultrasound for possible 2.5 cm posterior left thyroid nodule versus exophytic thyroid tiss ue. 5. COPD with mild to moderate emphysema and pulmonary arterial hypertension. 6. Nonobstructive left renal calculi. 7. DISH.
== END | disposition home or self-care (01) ==
LOC: RADCTMAIN 10:50
PROVIDERS: ATTEND Internal Medicine
DX: I27.21 Secondary pulmonary arterial hypertension (principal); I71.2 Thoracic aortic aneurysm, without rupture; J44.9 Chronic obstructive pulmonary disease, unspecified; N20.0 Calculus of kidney; M40.294 Other kyphosis, thoracic region; R91.1 Solitary pulmonary nodule
CPT/HCPCS: 82565; 84520; 71260; 36415; Q9967

== ENCOUNTER → 2021-11-10 | Outpatient (CLI) | payer MEDICARE ==
--- NOTE | 2021-11-10 20:15 | MR ---
EXAMINATION TYPE: MR brain wo/w con DATE OF EXAM: 11/10/2021 8:04 PM COMPARISON: NONE HISTORY: Blurred vision CONTRAST: Patient received 12 mL intravenous Gadavist gadolinium contrast. Multiplanar and multispin-echo imaging of the brain was performed . Pre and post contrast enhanced i mages are obtained. The ventricles, basal cisterns and sulci overlying the cerebral convexities are moderately enlarged. There is evidence of moderate to severe periventricular white matter ischemic demyelination. Remote deep white matter insults are also noted. Underlying demyelination not excluded. No acute edema is seen on diffusion weighted imaging. There is no evidence for midline shift or mass effect. Acute intracranial hemorrhage or extra-axial collection is not evident. No enhancing lesions are seen. The paranasal sinuses and mastoid air cells are well-aerated. IMPRESSION: Age-related atrophic and chronic small vessel ischemic change. No acute intracranial process at this time. No enhancing lesions are seen.
== END | disposition home or self-care (01) ==
LOC: RADMRIMAIN 19:14
PROVIDERS: ATTEND Internal Medicine
DX: G31.9 Degenerative disease of nervous system, unspecified (principal); I67.82 Cerebral ischemia
CPT/HCPCS: 70553; A9585

== ENCOUNTER → 2021-11-13 | Outpatient (CLI) | payer MEDICARE ==
--- NOTE | 2021-11-13 16:35 | US ---
EXAMINATION TYPE: US thyroid st tissue head/neck DATE OF EXAM: 11/13/2021 COMPARISON: NONE CLINICAL HISTORY: 81-year-old male R94.6 ABN THYROID LABS. History of right thyroidectomy for unknown reason. TECHNIQUE: Multiple sonographic images of the thyroid gland are obtained. FINDINGS: GLAND SIZE: Right Lobe: Surgically absent Left Lobe: 4.6 x 1.2 x 2.1 cm Overall Parenchyma: homogeneous Isthmus Thickness: 0.3 cm NODULES RIGHT: # of nodules measured on right: 0 LEFT: # of nodules measured on left: 0 ISTHMUS: # of nodules measured in the isthmus: 0 Bilateral neck scanned, no evidence of lymphadenopathy. Sheriff Officer notes: Exam limited by patient body habitus IMPRESSION: Right thyroid lobe is surgically absent. No discrete nodule seen on the left. Some limitation due to patient body habitus.
== END | disposition home or self-care (01) ==
LOC: RADUSWWP 12:12
PROVIDERS: ATTEND Internal Medicine
DX: R94.6 Abnormal results of thyroid function studies (principal)
CPT/HCPCS: 76536

== ENCOUNTER → 2022-07-19 | Outpatient (CLI) | payer MEDICARE ==
--- NOTE | 2022-07-19 14:54 | US ---
EXAMINATION TYPE: US kidneys/renal and bladder DATE OF EXAM: 07/19/2022 COMPARISON: CT 09/03/2018 and 04/03/2022. CLINICAL INDICATION: Male, 81 years old with history of N18.32 STAGE 3 CKD; CKD, no symptoms EXAM MEASUREMENTS: Right Kidney: 9.4 x 4.5 x 4.8 cm Left Kidney: 9.0 x 4.7 x 3.5 cm Right Kidney: 0.6 x 0.5cm mid pole stone additional calculi seen on prior CT not well visualized. N o evidence for acute process. Cortical medullary differentiation appears maintained. Left Kidney: No hydronephrosis or masses seen renal calculi seen on prior better appreciated on CT. Cortical medullary differentiation appears maintained. Bladder: wnl, but not fully distended There is no evidence for hydronephrosis at this point in time. No nephrolithiasis is seen. No willian s are identified. The urinary bladder is anechoic. Bilateral ureteral jets are seen. IMPRESSION: 1. No evidence for obstructive uropathy. 2. Bilateral nonobstructing renal calculi are better appreciated on prior CTs
== END | disposition home or self-care (01) ==
LOC: RADUSWWP 14:06
PROVIDERS: ATTEND Internal Medicine
DX: N20.0 Calculus of kidney (principal); N18.32 Chronic kidney disease, stage 3b
CPT/HCPCS: 76770

== ENCOUNTER → 2023-05-30 | Outpatient (CLI) | payer MEDICARE ==
[2023-05-30 11:29] LABS: Basophils # (A) 0.03 X 10*3/uL (0.00-0.10); Basophils % (A) 0.6 %; Eosinophils # (A) 0.09 X 10*3/uL (0.04-0.35); Eosinophils % (A) 1.8 %; HCT 47.4 % (39.6-50.0); HGB 14.9 g/dL (13.0-17.0); Lymphocytes # (A) 1.08 X 10*3/uL (0.90-5.00); MCH 31.6 pg (27.0-32.0); MCHC 31.4 g/dL (32.0-37.0); MCV 100.4 FL (80.0-97.0); Monocytes # (A) 0.42 X 10*3/uL (0.20-1.00); Monocytes % (A) 8.6 %; NRBC Per 100 WBC 0 X 10*3/uL (0.00-0.01); Neutrophils # (A) 3.25 X 10*3/uL (1.80-7.70); Neutrophils % (A) 66.4 %; Platelet Count 93 X 10*3/uL (140-440); RBC 4.72 X 10*6/uL (4.40-5.60); RDW 14.7 % (11.5-14.5)
[2023-05-30 11:56] LABS: ALT 10 U/L (10-49); AST 16 U/L (14-35); Albumin 4.5 g/dL (3.8-4.9); Alkaline Phosphatase 58 U/L (41-126); Blood Urea Nitrogen 34.4 mg/dL (9.0-27.0); Calcium 9.2 mg/dL (8.7-10.3); Carbon Dioxide 27.6 mmol/L (21.6-31.8); Chloride 100 mmol/L (96-109); Globulin 1.8 g/dL (1.6-3.3); Glucose 100 mg/dL (70-110); Potassium 4.2 mmol/L (3.5-5.5); Sodium 143 mmol/L (135-145); Total Bilirubin 1.3 mg/dL (0.3-1.2); Total Protein 6.3 g/dL (6.2-8.2)
--- NOTE | 2023-05-30 12:11 | US ---
EXAMINATION TYPE: US liver DATE OF EXAM: 05/30/2023 COMPARISON: NONE CLINICAL INDICATION: Male, 82 years old with history of K47.69 OTHER CIRRHOSIS OF LIVER; Cirrhosis TECHNIQUE: Multiple sonographic images of the right upper quadrant are obtained. FINDINGS: EXAM MEASUREMENTS: Liver Length: 18.8 cm CBD: 0.6 cm Right Kidney: 9.0 x 4.4 x 4.9 cm [employer] DISTRICT MANAGER NOTES: *Limitations due to large amount of overlying bowel gas Pancreas: Obscured by bowel gas Liver: enlarged, heterogeneous Gallbladder: unable to visualize Evidence for sonographic Bermudez's sign: no CBD: appears wnl Right Kidney: possible stone lower = 0.7cm IMPRESSION: 1 hepatomegaly with underlying hepatic steatosis. 2. I cannot exclude a nonobstructing right renal calculus.
== END | disposition home or self-care (01) ==
LOC: RADUSWWP 06:56
PROVIDERS: ATTEND Internal Medicine Gastroenterology
DX: K76.0 Fatty (change of) liver, not elsewhere classified (principal); K74.69 Other cirrhosis of liver
CPT/HCPCS: 36415; 76705; 80053; 82105; 85025

== ENCOUNTER → 2023-08-29 | Outpatient (CLI) | payer MEDICARE ==
--- NOTE | 2023-08-29 16:03 | MR ---
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 IV Contrast: cc . (None if empty) FINDINGS: Alignment: The lumbar vertebral bodies have preserved alignment. Cord: The conus medullaris and the distal spinal cord appear unremarkable with regards to their signa l intensity and morphology. Bones/Discs: Multilevel disc degeneration changes with osteophyte formation, disc space narrowing, Sc hmorl's nodes, and facet joint arthropathy. Compression deformity of the L4 vertebrae with 25-50% hei ght loss. Multilevel disc desiccation is present. No abnormal inversion recovery signal to suggest phillip ny edema to suggest acute fracture. High T1 high T2 signal L5 vertebral body hemangioma. T12-L1: No evidence of significant spinal canal stenosis or neural foraminal stenosis. L1-L2: No evidence of significant spinal canal stenosis or neural foraminal stenosis. L2-L3: Disc bulge and facet joint arthropathy result in mild spinal canal and moderate bilateral neur al foraminal stenosis. L3-L4: Disc bulge with central protrusion with mild spinal canal and moderate bilateral neural forami nal stenosis. L4-L5: Central extrusion with superior migration up to 11 mm. Facet joint arthropathy with moderate b ilateral neural foraminal stenosis.. L5-S1: The disc has a rounded posterior morphology without significant spinal canal stenosis. Facet j oint arthropathy with mild bilateral neural foraminal stenosis. No significant spinal canal or neural foraminal stenosis in the remainder of the visualized levels. Other findings: None. IMPRESSION: 1. No definitive evidence of disc herniation or significant spinal canal stenosis. 2. Moderate to severe disc degeneration with associated osteoarthritic changes. 3. L4-L5 disc extrusion suggested with within this material extending superior with migration up to 11 mm. 4. No evidence for acute compression fracture. Compression fracture of L4 vertebral body with approx imately 50% height loss and no bony edema.
== END | disposition home or self-care (01) ==
LOC: RADMRIMAIN 10:00
PROVIDERS: ATTEND Orthopaedic Surgery
DX: M47.816 Spondylosis without myelopathy or radiculopathy, lumbar region (principal); M54.16 Radiculopathy, lumbar region; M48.56XA Collapsed vertebra, not elsewhere classified, lumbar region, initial encounter for fracture; M51.36 Other intervertebral disc degeneration, lumbar region
CPT/HCPCS: 72148

== ENCOUNTER → 2023-09-30 | Outpatient (CLI) | payer MEDICARE ==
--- NOTE | 2023-11-04 14:17 | XR ---
Patient: Nick Vora L Ordering Physician: Unknown, Unknown ID: [id number] Phone, Pager: Phone: N /A Pager: N/A : [phone] Age/Gender: 83Y, M Primary Location: N/A Procedure: XR Lumbosacral Spine Minimum 4 Views Study Date: 09/30/2023 1:45:00 PM EXAMINATION TYPE: XR lumbosacral spine min 4V DATE OF EXAM: 10/13/2023 12:06 PM CLINICAL INDICATION: Pain fall COMPARISON: 09/21/2019 TECHNIQUE: XR lumbosacral spine min 4V - Frontal, lateral , bilateral oblique and coned in L5-S1 late ral views of the spine. FINDINGS: Vertebral plasty changes of the L4 vertebral body with increased compression deformity of t he L3 vertebral body possibly representing new acute compression fracture. There is less than 25% hei ght loss. There is severe degeneration changes throughout the spine with the with disc space narrowin g osteophyte formation. IMPRESSION: New Compression deformity superior endplate of L3 possibly representing new fracture compared to 2020 . There is at least 25% height loss. Consider MRI for evaluation for bony edema
--- NOTE | 2023-11-04 14:17 | XR ---
Site ID [facility] Patient Nick Vora L ID [id number] 1940 Age/Gender: 83Y, M Order # N/A Procedure XR Hip Complete RT Date 09/30/2023 1:45:00 PM EXAMINATION TYPE: XR Hip Complete RT DATE OF EXAM: 10/11/2023 6:33 PM INDICATION: Patient age: Male; 83 year old; Reason for study: Right hip pain after fall COMPARISON: None. TECHNIQUE: The right hip was examined in the frontal and lateral projections . FINDINGS: No evidence of any acute osseous pathology, joint dislocation, or soft tissue swelling. Mil d osteophytic changes of the right hip with medial joint space narrowing and marginal osteophytosis. IMPRESSION: No acute osseous pathology. There is continued clinical concern, consider further evaluation with CT.
== END | disposition home or self-care (01) ==
LOC: RADXRMAIN 13:30
PROVIDERS: ATTEND Internal Medicine
CPT/HCPCS: 72110; 73502

== ENCOUNTER 2023-11-13 08:23 | Day surgery (SDC) | payer MEDICARE ==
[2023-11-13] MEDS: IV FLUID CONTINUATION 1,000 ML IV ONE (10:42)
[2023-11-13] MEDS: LACTATED RINGERS 1,000 ML IV SCH (10:48)
[2023-11-13 10:53] VITALS: TEMP 98
[2023-11-13] MEDS ORDERED: PROPOFOL 10 MG/ML 20 ML VIAL IV ONE (10:57)
--- NOTE | 2023-11-13 11:16 | P.PCN ---
Date of Procedure: 11/13/23 Procedure(s) Performed: BRIEF HISTORY: Patient is a 83-year-old pleasant white male scheduled for an elective colonoscopy as a part of change in bowel habits for the last 6 months duration. He has been having alternating diarrhea and constipation. No rectal bleeding. PROCEDURE PERFORMED: Colonoscopy with biopsy. PREOPERATIVE DIAGNOSIS: Change in bowel habits. IV sedation per Anesthesia. PROCEDURE: After informed consent was obtained, the patient, was brought into the endoscopy unit. IV sedation was administered by Anesthesia under continuous monitoring. Digital rectal examination was normal. Initially the Olympus CF-160 flexible video colonoscope was then inserted in the rectum, gradually advanced into the cecum without any difficulty. Careful examination was performed as the scope was gradually being withdrawn. Ileocecal valve and the appendiceal orifice were visualized and appeared normal. Prep was fair. In the base of the cecum there was a broad-based polypoid mass identified involving the entire base of the cecum measuring at least 5 cm s/p multiple biopsies. Rest of the ascending colon, transverse colon, descending colon, sigmoid colon, and rectum appeared normal. Scattered diverticulosis retroflexion was performed in the rectum and no lesions were seen. The patient tolerated the procedure well. IMPRESSION: 4 to 5 cm polypoid mass in the base of the cecum status post multiple biopsies Scattered sigmoid diverticulosis Rest of the colon appeared normal RECOMMENDATIONS: Findings of this examination were discussed with the patient as well as his family he was advised to follow with the biopsy results. He will be seen in the office in 1 week. Based on the biopsy results will discuss surgical intervention..
[2023-11-13 11:49] VITALS: BP 117/85; PULSE 85; RESP 20
== END 2023-11-13 12:17 ==
LOC: ORWHC2ENDO 08:23
PROVIDERS: ATTEND Internal Medicine Gastroenterology
DX: C18.0 Malignant neoplasm of cecum (principal); K57.30 Diverticulosis of large intestine without perforation or abscess without bleeding; Z88.5 Allergy status to narcotic agent; Z88.0 Allergy status to penicillin; Z79.01 Long term (current) use of anticoagulants; Z79.899 Other long term (current) drug therapy
CPT/HCPCS: 45380; 88305; 88341; 88342

== ENCOUNTER → 2023-11-21 | Outpatient (CLI) | payer MEDICARE ==
[2023-11-21 13:51] LABS: African American GFR (CKD) 62 (>60 ml/min/1.73 sqM); Blood Urea Nitrogen 29 mg/dL (9-20); Non-African American GFR(CKD) 54 (>60 ml/min/1.73 sqM)
--- NOTE | 2023-11-21 15:37 | CT ---
EXAMINATION TYPE: CT abdomen pelvis w con CT DLP: 2440.2 mGycm, Automated exposure control for dose reduction was used. DATE OF EXAM: 11/21/2023 3:06 PM COMPARISON: CT chest 04/03/2022, abdominal ultrasound 10/20/2019, CT chest abdomen pelvis 09/03/2018, lum bosacral spine radiograph 09/30/2023 CLINICAL INDICATION:Male, 83 years old with history of C18.0 COLON CANCER; COLON CA TECHNIQUE: Standard CT of the abdomen and pelvis following the administration of 100 cc of Isovue 3 00 IV contrast material and oral contrast. Coronal and sagittal reformats were performed. FINDINGS: LOWER CHEST: Mild centrilobular emphysematous changes. Bilateral lower lobe linear atelectasis. Minim al lingular atelectasis. Lingular 1.6 cm solid pulmonary nodule which is grossly similar to prior exa mination where there was previously surrounding atelectatic change. ABDOMEN LIVER: Stable subcentimeter hypodensity within the right hepatic dome which is too small to character ize but likely represents a cyst. GALLBLADDER AND BILE DUCTS: Gallbladder is contracted. No biliary duct dilatation. PANCREAS: Unremarkable. SPLEEN: Enlarged. ADRENAL GLANDS: Unremarkable. KIDNEYS AND URETERS: No evidence of hydronephrosis. The kidneys enhance symmetrically. Left mid kidne y 1.4 cm cyst. Nonobstructive bilateral renal calculi with approximately 7 right renal calculi and 6 left renal calculi. Largest is within the upper pole of the right kidney measuring up to [address] is demonstrated within both collecting systems on the delayed phase. PELVIS BLADDER: Unremarkable REPRODUCTIVE: Unremarkable. ABDOMEN & PELVIS STOMACH AND BOWEL: Stomach and duodenum are unremarkable. No surrounding inflammatory changes. Few sc attered colonic diverticula. Enteric contrast reaches the transverse colon. There is a filling defect measuring 2.9 x 2.2 cm within the cecum (series 3, image 53). 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 No inflammatory changes involving the appendix. No evidence of bowel obstruction. PERITONEUM: No evidence of pneumoperitoneum or free fluid. VASCULATURE: Mild atherosclerotic calcifications are present throughout the abdominal aorta and its b ranches. No evidence of aortic aneurysm. MUSCULOSKELETAL: No acute osseous abnormalities. Osteoarthritic changes of both hips. Diffuse bone de mineralization. Fusion of the bilateral SI joints. Multilevel degenerative disc disease with vertebra l augmentation changes involving the L4 vertebral body. Central compression deformity involving the L 3 vertebral body with approximately 5 mm retropulsion. Approximately 50% height loss centrally which is progressed. DISH of the upper lumbar spine. LYMPH NODES: No evidence for lymphadenopathy. SOFT TISSUE/ABDOMINAL WALL: Small fat filled umbilical hernia. Patulous bilateral inguinal rings. IMPRESSION: 1. 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 No lymphadenopathy id entified. 2. Retrospectively 1.6 cm lingular pulmonary nodule demonstrated. Relatively stable from prior CT but new from prior CTs. Consider further evaluation with PET/CT. 3. Progression of L3 central compression deformity with approximately 50% height loss now and 5 mm r etropulsion. 4. Splenomegaly redemonstrated. [facility], , 11/21/2023 3:35 PM
== END | disposition home or self-care (01) ==
LOC: RADCTMAIN 12:55
PROVIDERS: ATTEND Internal Medicine Gastroenterology
DX: C18.0 Malignant neoplasm of cecum (principal); R91.1 Solitary pulmonary nodule; R16.1 Splenomegaly, not elsewhere classified
CPT/HCPCS: 82565; 84520; 74177; Q9967

== ENCOUNTER 2023-11-24 15:27 | Inpatient (IN) | payer MEDICARE ==
--- NOTE | 2023-11-24 16:01 | ED ---
General Adult HPI - General Chief complaint: Weakness Stated complaint: WEAKNESS Time Seen by Provider: 11/24/23 15:40 Source: patient, EMS, RN notes reviewed, old records reviewed Mode of arrival: EMS Limitations: no limitations - History of Present Illness Initial comments: 83-year-old male who presents to the emergency department complaining of gener alized weakness and diarrhea. Patient states both been going on quite a while, at least 2 months, but he thinks things continue to get worse. Patient states he also does not feel like eating or drinking so he thinks he is dehydrated and has lack of nutrition. Patient denies any pain. Patient denies headache patient denies any numbness or weakness. Patient denies any chest pain palpitations difficulty breathing or shortness of breath. Patient Nuys any abdominal pain. Patient denies any nausea vomiting. Patient denies any black or bloody stools. - Related Data Home Medications Medication Instructions Recorded Confirmed Sertraline HCl [Zoloft] 200 mg PO DAILY@1500 10/30/13 11/13/23 Temazepam [Restoril] 30 mg PO HS 10/30/13 11/13/23 Cholecalciferol [Vitamin D3 (25 1,000 unit PO DAILY@1500 06/10/18 11/13/23 Mcg = 1000 Iu)] Acetaminophen Tab [Tylenol] 1,000 mg PO HS 08/08/18 11/13/23 Furosemide [Lasix] 40 mg PO DAILY 09/17/18 11/13/23 Alfuzosin HCl [Uroxatral] 10 mg PO DAILY 11/18/19 11/13/23 Metoprolol Tartrate [Lopressor] 25 mg PO BID 07/01/21 11/13/23 Previous Rx's Medication Instructions Recorded Apixaban [Eliquis] 5 mg PO BID #60 tab 06/12/18 Sennosides [Senokot] 2 tab PO DAILY PRN #60 tablet 07/06/21 Allergies Allergy/AdvReac Type Severity Reaction Status Date / Time hydrocodone [From Lortab] Allergy SEVERE Verified 11/13/23 10:39 ABDOMINAL AND TROUBLE BREATHING hydrocodone bitartrate Allergy Anaphylaxis Verified 11/13/23 10:39 [From Vicodin] Penicillins Allergy Anaphylaxis Verified 11/13/23 10:39 propoxyphene napsylate Allergy Anaphylaxis Verified 11/13/23 10:39 [From Darvocet-N 100] tamsulosin HCl [From Flomax] Allergy Anaphylaxis Verified 11/13/23 10:39 Review of Systems ROS Statement: Those systems with pertinent positive or pertinent negative responses have been documented in the HPI. ROS Other: All systems not noted in ROS Statement are negative. Past Medical History Past Medical History: Atrial Fibrillation, CVA/TIA, GERD/Reflux, Hearing Disorder / Deafness, Hyperlipidemia, Osteoarthritis (OA), Prostate Disorder Additional Past Medical History / Comment(s): Tinnitus, Hx kidney stones, BPH, LUNG SCARRING. 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 History of Any Multi-Drug Resistant Organisms: None Reported Past Surgical History: Adenoidectomy, Ear Surgery, Heart Catheterization, Joint Replacement, Tonsillectomy Additional Past Surgical History / Comment(s): Oral surgery, diana knee repl acements, partial thyroidectomy, diana cataracts. EGD, COLONOSCOPY cardioversion Past Anesthesia/Blood Transfusion Reactions: No Reported Reaction Past Psychological History: Anxiety Smoking Status: Former smoker - Past Family History Mother Family Medical History: No Reported History Additional Family Medical History / Comment(s): . General Exam - General Exam Comments Initial Comments: GENERAL: Patient is well-developed and well-nourished. Patient is nontoxic and well- hydrated and is in mild distress. ENT: Neck is soft and supple. No significant lymphadenopathy is noted. Oropharynx is clear. Moist mucous membranes. Neck has full range of motion without elicit ing any pain. EYES: The sclera were anicteric and conjunctiva were pink and moist. Extraocular mo vements were intact and pupils were equal round and reactive to light. Eyelids were unremarkable. PULMONARY: Unlabored respirations. Good breath sounds bilaterally. No audible rales rhonchi or wheezing was noted. CARDIOVASCULAR: There is a regular rate and rhythm without any murmurs gallops or rubs. ABDOMEN: Soft and nontender with normal bowel sounds. SKIN: Patient's skin is pale NEUROLOGIC: Patient is alert and oriented x3. Cranial nerves II through XII are grossly intact. Motor and sensory are also intact. Normal speech, volume and content. Symmetrical smile. MUSCULOSKELETAL: Normal extremities with adequate strength and full range of motion. LYMPHATICS: No significant lymphadenopathy is noted PSYCHIATRIC: Normal psychiatric evaluation. Limitations: no limitations Course Vital Signs 11/24/23 11/24/23 15:38 17:26 Temperature 97.5 F L Pulse Rate 92 110 H Respiratory 18 18 Rate Blood Pressure 104/80 104/60 O2 Sat by Pulse 92 L 93 L Oximetry Medical Decision Making - Medical Decision Making EKG is interpreted by myself. EKG shows atrial fibrillation with rapid ventricular response at 107 bpm QRS is 115 QT interval is 341 QTc is 403. Patient's EKG shows no ST segment elevation. Was pt. sent in by a medical professional or institution (, YESSICA, COSMETICS MACHINE OPERATOR, urgent care, hospital, or group home...) When possible be specific @ -No Did you speak to anyone other than the patient for history (EMS, parent, family, police, friend...)? What history was obtained from this source @ - and son gave part of the history Did you review nursing and triage notes (agree or disagree)? Why? @ -I reviewed and agree with nursing and triage notes Were old charts reviewed (outside hosp., previous admission, EMS record, old EKG, old radiological studies, urgent care reports/EKG's, group home records)? Report findings @ -No Differential Diagnosis? @ -Factory Maintenance Manager MDM differential weakness EKG interpreted by me (3pts min.). @ -As above X-rays interpreted by me (1pt min.). @ -X-ray showed no acute CT interpreted by me (1pt min.). @ -None done U/S interpreted by me (1pt. min.). @ -None done What testing was considered but not performed or refused? (CT, X-rays, U/S, labs)? Why? @ -None What meds were considered but not given or refused? Why? @ -None Did you discuss the management of the patient with other professionals (professionals i.e. , YESSICA, COSMETICS MACHINE OPERATOR, lab, RT, psych nurse, social work supervisor, measuring machine operator, teacher, consumer loan officer, director of casework)? Give summary @ -I spoke with Dr. Beltran and he agreed to get the patient admitted. Was smoking cessation discussed for >3mins.? @ -No Was critical care preformed (if so, how long)? @ -No Were there social determinants of health that impacted care today? How? (Homelessness, low income, unemployed, alcoholism, drug addiction, transportation, low edu. Level, literacy, decrease access to med. care, fpc, rehab)? @ -No Was there de-escalation of care discussed even if they declined (Discuss DNR or withdrawal of care, Hospice)? DNR status @ -No What co-morbidities impacted this encounter? (DM, HTN, Smoking, COPD, CAD, Cancer, CVA, ARF, Chemo, Hep., AIDS, mental health diagnosis, sleep apnea, morbid obesity)? @ -None Was patient admitted / discharged? Hospital course, mention meds given and route, prescriptions, significant lab abnormalities, going to OR and other pertinent info. @ -Patient is too weak to go home family is in agreement with this I spoke with Dr. Zimmerman he will admit the patient Undiagnosed new problem with uncertain prognosis? @ -No Drug Therapy requiring intensive monitoring for toxicity (Heparin, Nitro, Insulin, Cardizem)? @ -No Were any procedures done? @ -No Diagnosis/symptom? @ -Weakness Acute, or Chronic, or Acute on Chronic? @ -Acute Uncomplicated (without systemic symptoms) or Complicated (systemic symptoms)? @ -complicated Side effects of treatment? @ -No Exacerbation, Progression, or Severe Exacerbation? @ -No Poses a threat to life or bodily function? How? (Chest pain, [place], [place], pneumonia, PE, COPD, DKA, ARF, appy, cholecystitis, CVA, Diverticulitis, Homicidal, Suicidal, threat to staff... and all critical care pts) @ -No - Lab Data Result diagrams: 11/24/23 16:16 11/24/23 16:16 Lab Results 11/24/23 11/24/23 11/24/23 Range/Units 16:16 16:16 16:16 WBC 6.4 (3.8-10.6) k/uL RBC 4.39 (4.30-5.90) m/uL Hgb 14.1 (13.0-17.5) gm/dL Hct 45.3 (39.0-53.0) % MCV 103.2 H (80.0-100.0) fL MCH 32.2 (25.0-35.0) pg MCHC 31.2 (31.0-37.0) g/dL RDW 14.4 (11.5-15.5) % Plt Count 127 L (150-450) k/uL MPV 9.5 Neutrophils % 79 % Lymphocytes % 12 % Monocytes % 6 % Eosinophils % 2 % Basophils % 0 % Neutrophils # 5.0 (1.3-7.7) k/uL Lymphocytes # 0.8 L (1.0-4.8) k/uL Monocytes # 0.4 (0-1.0) k/uL Eosinophils # 0.1 (0-0.7) k/uL Basophils # 0.0 (0-0.2) k/uL Hypochromasia Marked Macrocytosis Slight PT 11.6 (10.0-12.5) sec INR 1.1 (<1.2) APTT 28.1 (22.0-30.0) sec Sodium 138 (137-145) mmol/L Potassium 3.8 (3.5-5.1) mmol/L Chloride 106 (98-107) mmol/L Carbon Dioxide 24 (22-30) mmol/L Anion Gap 8 mmol/L BUN 25 H (9-20) mg/dL Creatinine 1.22 (0.66-1.25) mg/dL Est GFR (CKD-EPI)AfAm 64 (>60 ml/min/1.73 sqM) Est GFR (CKD-EPI)NonAf 55 (>60 ml/min/1.73 sqM) Glucose 100 H (74-99) mg/dL Plasma Lactic Acid Jayden (0.7-2.0) mmol/L Calcium 8.2 L (8.4-10.2) mg/dL Magnesium 1.6 (1.6-2.3) mg/dL Total Bilirubin 1.5 H (0.2-1.3) mg/dL AST 23 (17-59) U/L ALT 11 (4-49) U/L Alkaline Phosphatase 84 (38-126) U/L Troponin I (0.000-0.034) ng/mL Total Protein 5.3 L (6.3-8.2) g/dL Albumin 3.1 L (3.5-5.0) g/dL Urine Color Urine Appearance (Clear) Urine pH (5.0-8.0) Ur Specific Atwood (1.001-1.035) Urine Protein (Negative) Urine Glucose (UA) (Negative) Urine Ketones (Negative) Urine Blood (Negative) Urine Nitrite (Negative) Urine Bilirubin (Negative) Urine Urobilinogen (<2.0) mg/dL Ur Leukocyte Esterase (Negative) 11/24/23 11/24/23 11/24/23 Range/Units 16:16 16:16 17:26 WBC (3.8-10.6) k/uL RBC (4.30-5.90) m/uL Hgb (13.0-17.5) gm/dL Hct (39.0-53.0) % MCV (80.0-100.0) fL MCH (25.0-35.0) pg MCHC (31.0-37.0) g/dL RDW (11.5-15.5) % Plt Count (150-450) k/uL MPV Neutrophils % % Lymphocytes % % Monocytes % % Eosinophils % % Basophils % % Neutrophils # (1.3-7.7) k/uL Lymphocytes # (1.0-4.8) k/uL Monocytes # (0-1.0) k/uL Eosinophils # (0-0.7) k/uL Basophils # (0-0.2) k/uL Hypochromasia Macrocytosis PT (10.0-12.5) sec INR (<1.2) APTT (22.0-30.0) sec Sodium (137-145) mmol/L Potassium (3.5-5.1) mmol/L Chloride (98-107) mmol/L Carbon Dioxide (22-30) mmol/L Anion Gap mmol/L BUN (9-20) mg/dL Creatinine (0.66-1.25) mg/dL Est GFR (CKD-EPI)AfAm (>60 ml/min/1.73 sqM) Est GFR (CKD-EPI)NonAf (>60 ml/min/1.73 sqM) Glucose (74-99) mg/dL Plasma Lactic Acid Jayden 1.1 (0.7-2.0) mmol/L Calcium (8.4-10.2) mg/dL Magnesium (1.6-2.3) mg/dL Total Bilirubin (0.2-1.3) mg/dL AST (17-59) U/L ALT (4-49) U/L Alkaline Phosphatase (38-126) U/L Troponin I <0.012 (0.000-0.034) ng/mL Total Protein (6.3-8.2) g/dL Albumin (3.5-5.0) g/dL Urine Color Yellow Urine Appearance Clear (Clear) Urine pH 5.5 (5.0-8.0) Ur Specific Atwood 1.026 (1.001-1.035) Urine Protein Trace H (Negative) Urine Glucose (UA) Negative (Negative) Urine Ketones Negative (Negative) Urine Blood Negative (Negative) Urine Nitrite Negative (Negative) Urine Bilirubin Negative (Negative) Urine Urobilinogen <2.0 (<2.0) mg/dL Ur Leukocyte Esterase Negative (Negative) Disposition Clinical Impression: Weakness Disposition: ADMITTED IP TO THIS HOSP Referrals: Juan C Beltran MD [Primary Care Provider] - 1-2 days Time of Disposition: 18:45
[2023-11-24 16:22] LABS: Basophils % (A) 0 %; Eosinophils # (A) 0.1 k/uL (0-0.7); Eosinophils % (A) 2 %; HCT 45.3 % (39.0-53.0); HGB 14.1 gm/dL (13.0-17.5); Hypochromasia Marked; Lymphocytes # (A) 0.8 k/uL (1.0-4.8); Lymphocytes % (A) 12 %; MCH 32.2 pg (25.0-35.0); MCHC 31.2 g/dL (31.0-37.0); MCV 103.2 fL (80.0-100.0); Macrocytosis Slight; Mean Platelet Volume 9.5; Monocytes # (A) 0.4 k/uL (0-1.0); Monocytes % (A) 6 %; Neutrophils % (A) 79 %; Platelet Count 127 k/uL (150-450); RBC 4.39 m/uL (4.30-5.90); RDW 14.4 % (11.5-15.5); WBC 6.4 k/uL (3.8-10.6)
[2023-11-24 16:31] LABS: INR 1.1 (<1.2); Partial Thromboplastin Time 28.1 sec (22.0-30.0); Prothrombin Time 11.6 sec (10.0-12.5)
[2023-11-24 16:40] LABS: ALT 11 U/L (4-49); African American GFR (CKD) 64 (>60 ml/min/1.73 sqM); Albumin 3.1 g/dL (3.5-5.0); Anion Gap 8 mmol/L; Blood Urea Nitrogen 25 mg/dL (9-20); Calcium 8.2 mg/dL (8.4-10.2); Carbon Dioxide 24 mmol/L (22-30); Chloride 106 mmol/L (98-107); Glucose 100 mg/dL (74-99); Non-African American GFR(CKD) 55 (>60 ml/min/1.73 sqM); Potassium 3.8 mmol/L (3.5-5.1); Sodium 138 mmol/L (137-145); Total Bilirubin 1.5 mg/dL (0.2-1.3); Total Protein 5.3 g/dL (6.3-8.2)
[2023-11-24 16:41] LABS: AST 23 U/L (17-59); Alkaline Phosphatase 84 U/L (38-126); Magnesium 1.6 mg/dL (1.6-2.3)
[2023-11-24 17:36] LABS: Appearance,Urine Clear (Clear); Bilirubin,Urine Negative (Negative); Blood,Urine Negative (Negative); Color,Urine Yellow; Glucose,Urine (UA) Negative (Negative); Ketones,Urine Negative (Negative); Leukocyte Esterase,Urine Negative (Negative); Nitrite,Urine Negative (Negative); PH, Urine 5.5 (5.0-8.0); Protein,Urine Trace (Negative); Specific Gravity,Urine 1.026 (1.001-1.035); Urobilinogen,Urine <2.0 mg/dL (<2.0)
--- NOTE | 2023-11-24 17:54 | XR ---
EXAMINATION TYPE: XR chest 2V DATE OF EXAM: 11/24/2023 5:49 PM CLINICAL INDICATION: Male, 83 years old with history of Weakness; COMPARISON: Chest radiographs from 09/06/2018 TECHNIQUE: XR chest 2V Frontal view of the chest. FINDINGS: Lungs/Pleura: There is no evidence of pleural effusion, focal consolidation, or pneumothorax. Pulmonary vascularity: Mild pulmonary vascular congestion. Heart/mediastinum: Cardiomediastinal silhouette is unremarkable. Musculoskeletal: No acute osseous pathology. IMPRESSION: Pulmonary vascular prominence correlate with serum BNP. [facility], , 11/24/2023 5:51 PM
[2023-11-24] MEDS: SODIUM CHLORIDE 0.9% 1,000 ML IV STA (18:09)
[2023-11-24] MEDS: SODIUM CHLORIDE 0.9% 1,000 ML IV ONE (20:59)
[2023-11-25] MEDS: METOPROLOL TARTRATE 25 MG TAB PO SCH (10:41)
[2023-11-25] MEDS: FUROSEMIDE 20 MG TAB PO SCH (10:41)
[2023-11-25] MEDS: SERTRALINE 100 MG TAB PO SCH (10:41)
[2023-11-25] MEDS: APIXABAN 5 MG TAB PO SCH (10:41)
[2023-11-25 11:36] VITALS: BMI 29.7
[2023-11-25] MEDS: ACETAMINOPHEN TAB 325 MG TAB PO PRN (12:34)
--- NOTE | 2023-11-25 18:46 | P.HPIM ---
History of Present Illness H&P Date: 11/25/23 Nick Vora, is an 83-year-old male who presented to [facility] emergency room with a chief complaint of generalized weakness, patient mostly is complaining of bilateral lower extremity weakness, with inability to stand or walk, he states that his symptoms has developed gradually, he denies any pain in the lower extremities however he states that he feels that his lower extremities are heavy. He was evaluated in the emergency room vital examination on presentation revealed a temperature of 97.5 pulse 92 respiration 18 blood pressure 104/80 pulse ox 92% on room air Laboratory data reveals a white blood count of 6.4 hemoglobin 14.1 platelet count 127 BUN 25 creatinine 1.22 Testing in the emergency room revealed EKG revealed atrial fibrillation with a heart rate of 107, chest x-ray revealed pulmonary vascular prominence. Patient was admitted to medical floor for further evaluation and treatment Past Medical History Past Medical History: Atrial Fibrillation, CVA/TIA, GERD/Reflux, Hearing Disorder / Deafness, Hyperlipidemia, Osteoarthritis (OA), Prostate Disorder Additional Past Medical History / Comment(s): Tinnitus, Hx kidney stones, BPH, LUNG SCARRING. 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 History of Any Multi-Drug Resistant Organisms: None Reported Past Surgical History: Adenoidectomy, Ear Surgery, Heart Catheterization, Joint Replacement, Tonsillectomy Additional Past Surgical History / Comment(s): Oral surgery, diana knee replacements, partial thyroidectomy, diana cataracts. EGD, COLONOSCOPY cardioversion Past Anesthesia/Blood Transfusion Reactions: No Reported Reaction Past Psychological History: Anxiety Smoking Status: Former smoker Past Alcohol Use History: None Reported Additional Past Alcohol Use History / Comment(s): quit smoking 1986, started smoking age 17, 3 PPD. Pt states daily drinking when younger, average 6 beers or 1 pint Past Drug Use History: None Reported - Past Family History Mother Family Medical History: No Reported History Additional Family Medical History / Comment(s): . Medications and Allergies Home Medications Medication Instructions Recorded Confirmed Type Sertraline HCl [Zoloft] 200 mg PO DAILY 10/30/13 11/24/23 History Temazepam [Restoril] 30 mg PO HS 10/30/13 11/24/23 History Apixaban [Eliquis] 5 mg PO BID #60 tab 06/12/18 11/24/23 Rx Acetaminophen Tab [Tylenol] 1,000 mg PO HS 08/08/18 11/24/23 History Furosemide [Lasix] 40 mg PO DAILY 09/17/18 11/24/23 History Metoprolol Tartrate [Lopressor] 25 mg PO BID 07/01/21 11/24/23 History Allergies Allergy/AdvReac Type Severity Reaction Status Date / Time hydrocodone [From Lortab] Allergy SEVERE Verified 11/13/23 10:39 ABDOMINAL AND TROUBLE BREATHING hydrocodone bitartrate Allergy Anaphylaxis Verified 11/13/23 10:39 [From Vicodin] Penicillins Allergy Anaphylaxis Verified 11/13/23 10:39 propoxyphene napsylate Allergy Anaphylaxis Verified 11/13/23 10:39 [From Darvocet-N 100] tamsulosin HCl [From Flomax] Allergy Anaphylaxis Verified 11/13/23 10:39 Physical Exam Vitals: Vital Signs Temp Pulse Pulse Resp BP BP Pulse Ox 11/25/23 07:00 98.9 F 101 H 17 123/81 94 L 11/25/23 02:15 97.8 F 97 19 119/80 93 L 11/24/23 21:43 97.7 F 74 21 100/60 93 L 11/24/23 20:01 93 L 11/24/23 19:34 110 H 18 124/82 93 L 11/24/23 17:26 110 H 18 104/60 93 L 11/24/23 15:38 97.5 F L 92 18 104/80 92 L Intake and Output 11/24/23 11/25/23 11/25/23 22:59 06:59 14:59 Intake Total 1140 Balance 1140 Intake: Intake, IV Titration 900 Amount Sodium Chloride 0.9% 1, 900 000 ml @ 75 mls/hr IV . [id number] ONE Rx#:[id number] Oral 240 Other: # Voids 2 # Bowel Movements 1 Weight 107.955 kg 107.955 kg In general patient is alert and oriented x 3 in no distress HEENT head normocephalic and atraumatic Neck is supple no JVD no goiter no lymphadenopathy no carotid bruit Chest examination is clear to auscultation no crackles no wheezing Cardiac exam reveals regular heart sounds S1 and S2 no gallops no murmurs Abdomen is soft nontender no organomegaly with normal bowel sounds Extremity exam reveals no edema no cyanosis or clubbing Neurological examination reveals no gross focal deficits Results CBC & Chem 7: 11/24/23 16:16 11/24/23 16:16 Labs: Abnormal Lab Results - Last 24 Hours (Table) 11/24/23 11/24/23 11/24/23 Range/Units 16:16 16:16 17:26 MCV 103.2 H (80.0-100.0) fL Plt Count 127 L (150-450) k/uL Lymphocytes # 0.8 L (1.0-4.8) k/uL BUN 25 H (9-20) mg/dL Glucose 100 H (74-99) mg/dL Calcium 8.2 L (8.4-10.2) mg/dL Total Bilirubin 1.5 H (0.2-1.3) mg/dL Total Protein 5.3 L (6.3-8.2) g/dL Albumin 3.1 L (3.5-5.0) g/dL Urine Protein Trace H (Negative) Assessment and Plan Plan: Bilateral lower extremity weakness, with inability to stand or walk Recent history of colonoscopy with polypectomy on 11/13/2023, by Dr. Yu with pathology positive for invasive colonic adenocarcinoma Underlying history of atrial fibrillation maintained on Eliquis Remote history of CVA Underlying history of hypertension Underlying history of hyperlipidemia Underlying history of osteoarthritis Underlying history of benign prostatic hypertrophy Underlying history of difficulty hearing At this time patient was seen and examined, chart was reviewed Home medications reviewed and reordered Neurology consultation was requested in regard to lower extremity weakness Oncology consultation was requested in regard to colon Adenocarcinoma Will follow closely prognosis is guarded
[2023-11-25] MEDS: TEMAZEPAM 15 MG CAP PO SCH (20:47)
[2023-11-25] MEDS: ACETAMINOPHEN TAB 500 MG TAB PO SCH (20:47)
--- NOTE | 2023-11-26 09:16 | P.PN ---
Subjective Progress Note Date: 11/26/23 Nick Vora, is an 83-year-old male who presented to [facility] emergency room with a chief complaint of generalized weakness, patient mostly is complaining of bilateral lower extremity weakness, with inability to stand or walk, he states that his symptoms has developed gradually, he denies any pain in the lower extremities however he states that he feels that his lower extremities are heavy. He was evaluated in the emergency room vital examination on presentation revealed a temperature of 97.5 pulse 92 respiration 18 blood pressure 104/80 pulse ox 92% on room air Laboratory data reveals a white blood count of 6.4 hemoglobin 14.1 platelet count 127 BUN 25 creatinine 1.22 Testing in the emergency room revealed EKG revealed atrial fibrillation with a heart rate of 107, chest x-ray revealed pulmonary vascular prominence. Patient was admitted to medical floor for further evaluation and treatment On 11/26/2023 patient is alert and oriented x 3. Still complaining of generalized weakness awaiting neurology and oncology input. Current vital signs temp 97.6, heart rate 69, respiratory rate 16, blood pressure 107/70 with a pulse ox of 97% on room air. Patient denies chest pain or shortness of breath. Patient denies nausea vomiting or diarrhea. Patient denies any urinary burning or frequency Objective - Vital Signs Vital signs: Vital Signs Temp 97.6 F 11/26/23 07:00 Pulse 66 11/26/23 08:00 Resp 18 11/26/23 08:00 BP 107/70 11/26/23 07:00 Pulse Ox 97 11/26/23 07:00 FiO2 Intake & Output 11/25/23 11/26/23 11/26/23 18:59 06:59 18:59 Intake Total 300 1100 Output Total 1 Balance 299 1100 Weight 107.955 kg Intake: Intake, IV Titration 300 600 Amount Sodium Chloride 0.9% 1, 300 600 000 ml @ 75 mls/hr IV . [id number] ONE Rx#:[id number] Oral 500 Output: Stool 1 Other: Voiding Method Urinal # Voids 2 2 - Exam In general patient is alert and oriented x 3 in no distress HEENT head normocephalic and atraumatic Neck is supple no JVD no goiter no lymphadenopathy no carotid bruit Chest examination is clear to auscultation no crackles no wheezing Cardiac exam reveals regular heart sounds S1 and S2 no gallops no murmurs Abdomen is soft nontender no organomegaly with normal bowel sounds Extremity exam reveals no edema no cyanosis or clubbing Neurological examination reveals no gross focal deficits - Labs CBC & Chem 7: 11/24/23 16:16 11/24/23 16:16 Assessment and Plan Plan: Bilateral lower extremity weakness, with inability to stand or walk Recent history of colonoscopy with polypectomy on 11/13/2023, by Dr. Yu with pathology positive for invasive colonic adenocarcinoma Underlying history of atrial fibrillation maintained on Eliquis Remote history of CVA Underlying history of hypertension Underlying history of hyperlipidemia Underlying history of osteoarthritis Underlying history of benign prostatic hypertrophy Underlying history of difficulty hearing At this time patient was seen and examined, chart was reviewed Home medications reviewed and reordered Neurology consultation was requested in regard to lower extremity weakness Oncology consultation was requested in regard to colon Adenocarcinoma Will follow closely prognosis is guarded
--- NOTE | 2023-11-26 11:29 | US ---
EXAMINATION TYPE: US venous doppler duplex LE RT DATE OF EXAM: 11/26/2023 11:02 AM COMPARISON: NONE CLINICAL INDICATION: Male, 83 years old with history of RLE edema; tingling RLE; Black toe right foot . TECHNIQUE: The lower extremity deep venous system is examined utilizing real time linear array sonog sue with graded compression, color doppler sonography, and spectral doppler. SIDE PERFORMED: Right FINDINGS: VESSELS IMAGED: Common Femoral Vein Deep Femoral Vein Greater Saphenous Vein * Femoral Vein Popliteal Vein Small Saphenous Vein * Proximal Calf Veins (* superficial vessels) Grayscale, color doppler, spectral doppler imaging performed of the deep veins of the right lower ext remity. Right Leg: Negative for DVT IMPRESSION: No evidence of deep vein thrombosis of the right lower extremity. [facility], , 11/26/2023 11:27 AM
--- NOTE | 2023-11-26 11:45 | CA ---
Transthoracic Echo Report Name: Nick Vora Age: 83 Gender: M : 1940 Exam Date: 11/26/2023 09:09 Exam Location: [place] [facility] Ht (in): 75 Wt (lb): 238 Ordering Physician: Juan C Beltran MD Attending/Referring Phys: Diamond Sawer Senait Rogers RDCS Procedure CPT: Indications: generalized weakness Cardiac Hx: Technical Quality: Fair Contrast 1: Total Dose (mL): Contrast 2: Total Dose (mL): MEASUREMENTS (Male / Female) Normal Values 2D ECHO LV Diastolic Diameter PLAX 5.2 cm 4.2 - 5.9 / 3.9 - 5.3 cm LV Systolic Diameter PLAX 4.3 cm IVS Diastolic Thickness 1.3 cm 0.6 - 1.0 / 0.6 - 0.9 cm LVPW Diastolic Thickness 1.4 cm 0.6 - 1.0 / 0.6 - 0.9 cm LV Relative Wall Thickness 0.5 RV Internal Dim ED PLAX 2.7 cm LA Systolic Diameter LX 4.8 cm 3.0 - 4.0 / 2.7 - 3.8 cm LV Diastolic Volume MOD BP 74.7 cm??? 67 - 155 / 56 - 104 cm??? LV Systolic Volume MOD BP 57.5 cm??? 22 - 58 / 19 - 49 cm??? LV Ejection Fraction MOD BP 23.0 % >= 55 % LV Cardiac Index MOD BP 664.1 cm???/min???m??? LV Diastolic Volume MOD 4C 78.9 cm??? LV Systolic Volume MOD 4C 54.0 cm??? LV Ejection Fraction MOD 4C 31.6 % LV Cardiac Index MOD 4C 961.0 cm???/min???m??? LV Diastolic Length 4C 8.2 cm LV Systolic Length 4C 7.4 cm LV Diastolic Volume MOD 2C 68.8 cm??? LV Systolic Volume MOD 2C 48.2 cm??? LV Ejection Fraction MOD 2C 29.9 % LV Cardiac Index MOD 2C 794.4 cm???/min???m??? LV Diastolic Length 2C 7.9 cm LV Systolic Length 2C 7.0 cm LA Volume 109.2 cm??? 18 - 58 / 22 - 52 cm??? LA Volume Index 45.3 cm???/m??? 16 - 28 cm???/m??? M-MODE Aortic Root Diameter MM 4.1 cm LA Systolic Diameter MM 4.5 cm LA Ao Ratio MM 1.1 AV Cusp Separation MM 2.1 cm DOPPLER TR Peak Velocity 337.4 cm/s TR Peak Gradient 45.5 mmHg Right Ventricular Systolic Press 59.2 mmHg FINDINGS Left Ventricle Left ventricular ejection fraction is estimated at 25-30%. Severely decreased left ventricular ejection fraction. Global left ventricular hypokinesis.Mildly increased left ventricular wall thickness. Right Ventricle Severe right ventricular dilatation. Moderate to severe pulmonary hypertension. Right Atrium Severe right atrial dilatation. Left Atrium Moderately increased left atrial diameter. Severely increased left atrial volume. Mildly increased left atrial area. Mitral Valve Structurally normal mitral valve. No mitral stenosis. Mild mitral regurgitation.mitral annular calcification. Aortic Valve Trileaflet aortic valve. Focal thickening of the aortic valve cusps. No aortic regurgitation. Tricuspid Valve Structurally normal tricuspid valve. Moderate tricuspid regurgitation. No tricuspid stenosis. Pulmonic Valve Structurally normal pulmonic valve. No pulmonic stenosis. Pericardium No pericardial or pleural effusion. Aorta Mild aortic dilatation at the level of the sinuses of valsalva (root). CONCLUSIONS 1. Severe global hypokinesis of the left ventricle 2. Mild mitral with moderate tricuspid regurgitation and moderate to severe pulmonary hypertension Previewed by: Dr. Brigitte Alvares MD (Electronically Signed) Final Date: 26 November 2023 11:44
--- NOTE | 2023-11-26 16:30 | P.CNNES ---
History of Present Illness Consult date: 11/26/23 Requesting physician: Juan C Beltran Reason for Consult: bilateral low extremity weakness History of Present Illness: This is an 83-year-old gentleman with recent diagnosis of colon cancer, recent pulmonary nodule, lumbar degenerative disease, compression fracture of L4 vertebra, atrial fibrillation status post ablation on Eliquis who presented emergency department because of weakness of lower extremity. is at bedside who also helps with the history. Seems the patient has been having leg weakness since June 2023. She is also having lower back pain. He denies any radicular symptoms of the back pain. He feels the back pain is and severely lower region in the middle portion without radicular symptoms. Denies any bladder or bowel issues. He is also having numbness in the lower extremity. For the last 6 mo nths he is having intermittent diarrhea with the lack of intake of food. He was evaluated by orthopedic surgery team, Dr. Whiteside sent as an outpatient and he had MRI and was told he has degenerative changes and no surgical intervention. According to the he was recently diagnosed with colon cancer and had a biopsy and followed up with GI specialist. He also was called by the oncologist because of the pulmonary nodule. On further questioning it seems that the patient has been using a walker recently because of his leg weakness. Then he stated that he is having more left leg weakness than the right. Denies any ascending numbness tingling. Denies any ascending weakness. Denies any speech difficulty or visual disturbance. It seems that the patient had a biopsy 11/13/2023 of the colon and it seems he has a cecal polypoid is reported as invasive colonic adenocarcinoma Note, patient has chronic left shoulder injury with residual weakness in the left upper extremity. Denies any neck pain or radicular pain. Denies any history of stroke. Some of the workup during this hospital visit consisted of: TSH is 1.920 Glucose is 100 Magnesium is 1.6, sodium is 138. Review of Systems The positive and negative as per HPI. Past Medical History Past Medical History: Atrial Fibrillation, CVA/TIA, GERD/Reflux, Hearing Disorder / Deafness, Hyperlipidemia, Osteoarthritis (OA), Prostate Disorder Additional Past Medical History / Comment(s): Tinnitus, Hx kidney stones, BPH, LUNG SCARRING. 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 History of Any Multi-Drug Resistant Organisms: None Reported Past Surgical History: Adenoidectomy, Ear Surgery, Heart Catheterization, Joint Replacement, Tonsillectomy Additional Past Surgical History / Comment(s): Oral surgery, diana knee replacements, partial thyroidectomy, diana cataracts. EGD, COLONOSCOPY cardioversion Past Anesthesia/Blood Transfusion Reactions: No Reported Reaction Past Psychological History: Anxiety Smoking Status: Former smoker Past Alcohol Use History: None Reported Additional Past Alcohol Use History / Comment(s): quit smoking 1986, started smoking age 17, 3 PPD. Pt states daily drinking when younger, average 6 beers or 1 pint Past Drug Use History: None Reported - Past Family History Mother Family Medical History: No Reported History Additional Family Medical History / Comment(s): . Medications and Allergies Home Medications Medication Instructions Recorded Confirmed Type Sertraline HCl [Zoloft] 200 mg PO DAILY 10/30/13 11/24/23 History Temazepam [Restoril] 30 mg PO HS 10/30/13 11/24/23 History Apixaban [Eliquis] 5 mg PO BID #60 tab 06/12/18 11/24/23 Rx Acetaminophen Tab [Tylenol] 1,000 mg PO HS 08/08/18 11/24/23 History Furosemide [Lasix] 40 mg PO DAILY 09/17/18 11/24/23 History Metoprolol Tartrate [Lopressor] 25 mg PO BID 07/01/21 11/24/23 History Allergies Allergy/AdvReac Type Severity Reaction Status Date / Time hydrocodone [From Lortab] Allergy SEVERE Verified 11/13/23 10:39 ABDOMINAL AND TROUBLE BREATHING hydrocodone bitartrate Allergy Anaphylaxis Verified 11/13/23 10:39 [From Vicodin] Penicillins Allergy Anaphylaxis Verified 11/13/23 10:39 propoxyphene napsylate Allergy Anaphylaxis Verified 11/13/23 10:39 [From Darvocet-N 100] tamsulosin HCl [From Flomax] Allergy Anaphylaxis Verified 11/13/23 10:39 Physical Examination - Vital Signs Vital Signs: Vital Signs Temp Pulse Resp BP Pulse Ox 11/26/23 14:51 97.4 F L 72 17 109/72 93 L 10/08/24 08:00 66 18 11/26/23 07:00 97.6 F 69 16 107/70 97 11/26/23 02:00 98.1 F 80 14 102/59 95 11/25/23 19:53 97.9 F 117 H 17 108/72 89 L Intake and Output 11/26/23 11/26/23 11/26/23 06:59 14:59 22:59 Intake Total 1100 118 Balance 1100 118 Intake: Intake, IV Titration 600 Amount Sodium Chloride 0.9% 1, 600 000 ml @ 75 mls/hr IV . [id number] ONE Rx#:[id number] Oral 500 118 Other: Voiding Method Urinal # Voids 2 3 GENERAL: The patient is lying in bed and is not in acute distress. NEUROLOGICAL: Higher mental function: The patient is awake, alert, oriented to self, place and time. Patient is following commands. No aphasia and no neglect. Cranial nerves: The pupils are round, equal and reactive to light and accommo dation. Visual pardo are full to confrontation throughout. Extraocular movement is intact no nystagmus is noted. Facial sensation is normal to touch throughout. The facial strength is normal throughout. Hearing is normal bilaterally to hand rub. Tongue is midline and moved [id number] without any difficulty. No dysarthria is noted. Shoulder shrug is normal bilaterally. Motor: The strength is left upper extremity is limited because of old left shoulder injury and had 4+ while distally is 5/5. Left lower extremity proxmimally is 3-4 and distally is 4-4+. Right lower is 4+ to 5-. Right upper is 5/5. Normal tone and bulk. Cerebellum: Normal finger to nose bilaterally. Sensation: Sensation is normal to touch throughout. Reflexes (right/left): 2+ uppers while lowers are 1-2+ at patellar while ankles are 1+ bilaterally. Plantars are mute bilaterally. Results - Laboratory Findings CBC and BMP: 11/24/23 16:16 11/24/23 16:16 Abnormal Lab Findings: Abnormal Labs 11/24/23 11/24/23 11/24/23 16:16 16:16 17:26 MCV 103.2 H Plt Count 127 L Lymphocytes # 0.8 L BUN 25 H Glucose 100 H Calcium 8.2 L Total Bilirubin 1.5 H Total Protein 5.3 L Albumin 3.1 L Urine Protein Trace H Assessment and Plan Assessment: This is an 83-year-old gentleman with intermittent diarrhea for the last 6 m onths with decreased oral intake who was recently diagnosed with colon cancer as well as has pulmonary nodule, lumbar degenerative changes, compression fracture of the L4 vertebra who is having weakness in the lower extremity since June 2023 progressively worsening as well as having numbness in the lowers and it seems it is more on the left but on examination it is more left than the right. Lower extremity weakness predominantly left more than the right with numbness rule out bone metastasis on the thoracic or cervical region. Recent diagnosis of colon cancer with recent pulmonary nodule Lumbar degenerative changes and he was evaluated by orthopedic and recommended conservative management according to the Compression fracture of the L4 History of atrial fibrillation status post ablation on Eliquis Hypertension Plan: Ordered MRI of the cervical thoracic spine with and without. Patient had a recent MRI lumbar spine 08/29/2023 Oncology is consulted Will defer the rest of the medical management to primary and other specialist The plan is discussed with patient and his who is at bedside. Also discussed with primary team. Thank you for the consultation. Time with Patient: Greater than 30
[2023-11-26] MEDS: ZINC OXIDE PASTE (Z-GUARD) 1 APPLIC TOPICAL PRN (16:33)
--- NOTE | 2023-11-26 20:08 | P.CONS ---
History of Present Illness - Reason for Consult Consult date: 11/26/23 colon cancer Requesting physician: Juan C Beltran - Chief Complaint weakness - History of Present Illness Patient is a 83 year old male with a history of pnacytopenia and has been seen by Dr. Reece in the past. He was initially seen on consult at [facility] in 09/05, and then in 03/09. Consult was for pancytopenia. Patient has actually had low platelet counts since 2013 with mild progression over time. Laboratory for cytopenia was negative in 09/05. Patient was noted on scans at that time to have splenomegaly. It was felt that this was most likely chronic liver disease. The CT scan had not commented on liver, but ultrasound in 2013 had shown heterogenous echotexture consistent with possible fatty infiltration. The patient had continued to have persistent weight loss. There appears to be significant history of early satiety but is persistent. He had additional labs done for new deficiency state, which were all negative. Ultrasound confirms s plenomegaly with some increase in size versus before. AFP was normal at 2.4. It was thought that his splenomegaly, as well as the intermittently low platelets are most likely due to chronic liver disease. Patient presented to the emergency room with progressing bilateral lower extremity weakness and diarrhea over the last 2 months. Patient underwent patient states "my legs just do not work anymore, they feel like bricks." Patient did undergo colonoscopy on 11/13/[address] Gore which revealed 4 to 5 cm polypoid mass at the base of the cecum. 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 CT abdomen pelvis on 11/21/2023 revealed cecal mass measuring up to 2.9 cm. Retrospectively 1.6 cm lingular pulmonary nodule demonstrated which was relatively stable from prior CT scan on 04/03/2022. Progression of L3 central compression deformity with approximately 50% height loss now and 5 mm retropulsion. Splenomegaly redemonstrated. At today's visit patient is reporting frustrations with inability to ambulate and take care of himself at home. He is reporting that diarrhea has subsided. He has been experiencing intermittent shortness of breath and dizziness. Also reporting numbness and tingling in feet and right lower extremity edema. Patient denies blood in stool and melena. He has had progressive weight loss over the last 3 years. CBC showing WBC 6.4, hemoglobin 14.1, MCV 103.2. Platelets 127,000. Creatinine 1.22, GFR 55. Bilirubin 1.5, LFTs WNL. Review of Systems 10 point ROS is negative except as stated in the HPI Past Medical History Past Medical History: Atrial Fibrillation, CVA/TIA, GERD/Reflux, Hearing Disorder / Deafness, Hyperlipidemia, Osteoarthritis (OA), Prostate Disorder Additional Past Medical History / Comment(s): Tinnitus, Hx kidney stones, BPH, LUNG SCARRING. 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 History of Any Multi-Drug Resistant Organisms: None Reported Past Surgical History: Adenoidectomy, Ear Surgery, Heart Catheterization, Joint Replacement, Tonsillectomy Additional Past Surgical History / Comment(s): Oral surgery, diana knee replacements, partial thyroidectomy, diana cataracts. EGD, COLONOSCOPY cardioversion Past Anesthesia/Blood Transfusion Reactions: No Reported Reaction Past Psychological History: Anxiety Smoking Status: Former smoker Past Alcohol Use History: None Reported Additional Past Alcohol Use History / Comment(s): quit smoking 1986, started smoking age 17, 3 PPD. Pt states daily drinking when younger, average 6 beers or 1 pint Past Drug Use History: None Reported - Past Family History Mother Family Medical History: No Reported History Additional Family Medical History / Comment(s): . Medications and Allergies Home Medications Medication Instructions Recorded Confirmed Type Sertraline HCl [Zoloft] 200 mg PO DAILY 10/30/13 11/24/23 History Temazepam [Restoril] 30 mg PO HS 10/30/13 11/24/23 History Apixaban [Eliquis] 5 mg PO BID #60 tab 06/12/18 11/24/23 Rx Acetaminophen Tab [Tylenol] 1,000 mg PO HS 08/08/18 11/24/23 History Furosemide [Lasix] 40 mg PO DAILY 09/17/18 11/24/23 History Metoprolol Tartrate [Lopressor] 25 mg PO BID 07/01/21 11/24/23 History Allergies Allergy/AdvReac Type Severity Reaction Status Date / Time hydrocodone [From Lortab] Allergy SEVERE Verified 11/13/23 10:39 ABDOMINAL AND TROUBLE BREATHING hydrocodone bitartrate Allergy Anaphylaxis Verified 11/13/23 10:39 [From Vicodin] Penicillins Allergy Anaphylaxis Verified 11/13/23 10:39 propoxyphene napsylate Allergy Anaphylaxis Verified 11/13/23 10:39 [From Darvocet-N 100] tamsulosin HCl [From Flomax] Allergy Anaphylaxis Verified 11/13/23 10:39 Physical Exam Vitals: Vital Signs Temp Pulse Resp BP Pulse Ox 11/26/23 08:00 66 18 11/26/23 07:00 97.6 F 69 16 107/70 97 11/26/23 02:00 98.1 F 80 14 102/59 95 11/25/23 19:53 97.9 F 117 H 17 108/72 89 L 11/25/23 15:00 97.4 F L 72 16 116/76 91 L Intake and Output 11/25/23 11/26/23 11/26/23 22:59 06:59 14:59 Intake Total 1100 Balance 1100 Intake: Intake, IV Titration 600 Amount Sodium Chloride 0.9% 1, 600 000 ml @ 75 mls/hr IV . [id number] Rx#:[id number] Oral 500 Other: Voiding Method Urinal # Voids 2 - Constitutional General appearance: no acute distress - EENT Eyes: anicteric sclerae, EOMI ENT: hearing grossly normal - Respiratory Respiratory: bilateral: CTA - Cardiovascular well perfused - Gastrointestinal General gastrointestinal: soft, no tenderness - Integumentary Integumentary: no cyanotic, no jaundiced - Musculoskeletal RLE edema noted Musculoskeletal: generalized weakness - Psychiatric Psychiatric: A&O x's 3 Results CBC & Chem 7: 11/24/23 16:16 11/24/23 16:16 CT scan - abdomen: report reviewed CT scan - pelvis: report reviewed Assessment and Plan (1) Colon adenocarcinoma Current Visit: Yes Status: Acute Priority: High Code(s): C18.9 - MALIGNANT NEOPLASM OF COLON, UNSPECIFIED SNOMED Code(s): 065946474 (2) Weakness Current Visit: Yes Status: Acute Priority: High Code(s): R53.1 - WEAKNESS SNOMED Code(s): 14225935 (3) Atrial fibrillation Current Visit: Yes Status: Acute Priority: Medium Code(s): I48.91 - UNSPECIFIED ATRIAL FIBRILLATION SNOMED Code(s): 37848614 Plan: Colon adenocarcinoma: -Recent diagnosis of colon adenocarcinoma -NGS/PDL-1 requested on pathology -CT abdomen pelvis on 11/21/2023 revealed cecal mass measuring up to 2.9 cm. And 1.6 cm lingular pulmonary nodule demonstrated which was relatively stable from prior CT scan on 04/03/2022. Outpt PET CT ordered to further evaluate -Anemia labs ordered Discussed diagnosis and POC with patient. He was agreeable to the same BLE weakness/RLE edema: Reporting progressing BLE weakness, parathesia and RLE edema -Will obtain RLE doppler -PT/OT consulted -Case management consulted for evaluation for home health services and DME. May need rehab upon d/c pending recommendations from PT attests: I have seen and examined patient, performed H&P, developed impression and plan of care. Discussed with dictator. Agree with docum entation, dictated as a scribe
[2023-11-26 20:26] LABS: % Iron Saturation 17.73 (15.00-50.00); Iron 39 UG/DL (65-175); Total Iron Binding Capacity 220 UG/DL (228-460)
[2023-11-27 10:59] LABS: BUN/Creat Ratio 14.86 Ratio (12.00-20.00); Blood Urea Nitrogen 20.8 mg/dL (9.0-27.0); Carbon Dioxide 25.5 mmol/L (21.6-31.8); Chloride 107 mmol/L (96-109); Glucose 104 mg/dL (70-110); Potassium 3.6 mmol/L (3.5-5.5); Sodium 142 mmol/L (135-145)
[2023-11-27 11:00] LABS: ALT 10 U/L (10-49); AST 16 U/L (14-35); Albumin 3.3 g/dL (3.8-4.9); Albumin/Globulin Ratio 2.06 Ratio (1.60-3.17); Alkaline Phosphatase 118 U/L (41-126); Calcium 8.3 mg/dL (8.7-10.3); Globulin 1.6 g/dL (1.6-3.3); Total Bilirubin 1.1 mg/dL (0.3-1.2); Total Protein 4.9 g/dL (6.2-8.2)
[2023-11-27 11:22] LABS: Basophils # (A) 0.04 X 10*3/uL (0.00-0.10); Basophils % (A) 0.6 %; Elliptocytes 2+; Eosinophils # (A) 0.19 X 10*3/uL (0.04-0.35); Eosinophils % (A) 2.7 %; HCT 46.3 % (39.6-50.0); HGB 14.5 g/dL (13.0-17.0); Lymphocytes # (A) 1.26 X 10*3/uL (0.90-5.00); Lymphocytes % (A) 18.1 %; MCHC 31.3 g/dL (32.0-37.0); MCV 105.2 FL (80.0-97.0); Macrocytosis (M) 2+; Mean Platelet Volume 11.2 FL (9.5-12.2); Monocytes # (A) 0.58 X 10*3/uL (0.20-1.00); Monocytes % (A) 8.3 %; NRBC Per 100 WBC 0 X 10*3/uL (0.00-0.01); Neutrophils # (A) 4.81 X 10*3/uL (1.80-7.70); Neutrophils % (A) 69.2 %; Platelet Count 129 X 10*3/uL (140-440); RDW 15.6 % (11.5-14.5); WBC 6.96 X 10*3/uL (4.50-10.00)
[2023-11-27] MEDS ORDERED: BENZOCAINE SPRAY 1 CAN TOPICAL PRN (12:27)
[2023-11-27] MEDS ORDERED: fentaNYL (PF) 50 MCG/ML 5 ML AMP IVP PRN (12:27)
[2023-11-27] MEDS ORDERED: MIDAZOLAM 2 MG/2 ML VIAL IV PRN (12:27)
--- NOTE | 2023-11-27 12:38 | P.CRDCN ---
History of Present Illness History of present illness: HISTORY OF PRESENT ILLNESS: This is a 83-year-old male with a past medical history significant for paroxysmal atrial fibrillation with previous cardioversion, mild CAD, and former nicotine dependence. Patient follows in the office with Dr. Alvares. We have been asked to see the patient in consultation for congestive heart failure. Patient examined at the bedside. Patient presented to the hospital with a chief complaint of worsening lower extremity weakness. This has been persistent for at least the last 6 months but patient states it has been getting worse. He denies any complaints of chest pain or pressure. He denies any shortness of breath at the time of examination but does report recently he has noticed he has been getting more short of breath. He states that he can feel palpitations occasionally when he moves from [id number] in the bed. At the time of examination he denies any palpitations. It is noted that the patient was in atrial fibrillation upon admission to the hospital. The last time he was seen in the cardiology office, patient was maintaining sinus mechanism at that time. DIAGNOSTICS: - EKG reveals atrial fibrillation with heart rate 107. No signs of acute ischemia. - Chest xray pulmonary vascular prominence - Laboratory data: WBC 6.4. Hemoglobin 14.1. Platelet count 127. Sodium 142. Potassium 3.6. BUN 20. Creatinine 1.4. Magnesium 1.6. Troponin negative x 1. - Current home cardiac medications include Eliquis 5 mg twice a day, Lasix 40 mg daily, metoprolol tartrate 25 mg twice a day - Echocardiogram obtained this admission reveals ejection fraction 25 to 30%, global left ventricular hypokinesis, moderate to severe pulmonary hypertension, mild mitral regurgitation, moderate tricuspid regurgitation - Lower extremity Doppler: Negative for DVT of right lower extremity - Cardiac catheterization history: 2013 revealing minimal CAD - Patient underwent Lexiscan stress test in October 2019 revealing small fixed inferior wall defect and mild global hypokinesis consistent with mild nonischemic cardiomyopathy. No evidence of stress-induced ischemia. REVIEW OF SYSTEMS: At the time of my exam: CONSTITUTIONAL: Denies fever or chills. HEENT: Denies blurred vision, vision changes, or eye pain. Denies hemoptysis CARDIOVASCULAR: Denies chest pain. Denies orthopnea. Denies PND. Denies palpitations RESPIRATORY: Reports occasional shortness of breath. GASTROINTESTINAL: Denies abdominal pain. Denies nausea or vomiting. HEMATOLOGIC: Denies bleeding disorders. GENITOURINARY: Denies any blood in urine. SKIN: Denies pruitis. Denies rash. PHYSICAL EXAM: VITAL SIGNS: Reviewed. GENERAL: Well-developed in no acute distress. HEENT: Head is normocephalic. Pupils are equal, round. Sclerae anicteric. Mucous membranes of the mouth are moist. Neck supple. No JVD or thyromegaly LUNGS: Respirations even and unlabored. Lungs essentially clear to auscultation bilaterally. HEART: Irregular Rate and rhythm. S1 and S2 heard. Systolic murmur noted. ABDOMEN: Soft. Nondistended. Nontender. EXTREMITIES: Normal range of motion. No clubbing or cyanosis. Peripheral pulses intact. No lower extremity edema NEUROLOGIC: Awake and alert. Oriented x 3. ASSESSMENT: Lower extremity weakness x 6 months, worsening per patient Status post colonoscopy 11/13/2023 revealing cecal mass, pathology positive for invasive adenocarcinoma Pulmonary nodule Shortness of breath, likely secondary to atrial fibrillation, no clinical evidence for acute congestive heart failure Cardiomyopathy, nonischemic likely from being back in atrial fibrillation, EF 25 to 30%, new from previous echo performed in 2019 revealing ejection fraction 55% History of nonischemic cardiomyopathy in 2019 when patient was in atrial fibrillation Paroxysmal atrial fibrillation History of GENARO and cardioversion History of A-fib ablation, 2018 Moderate to severe pulmonary hypertension Mild coronary artery disease, per cardiac catheterization 2013 Former nicotine dependence PLAN: 2D echo obtained and reviewed. Patient with cardiomyopathy EF 25 to 30%. This is new from his most recent echocardiogram performed in 2019 which revealed ejection fraction 55%. The patient does have a history of cardiomyopathy back in 2019 secondary to being in atrial fibrillation. Earlier this year when the patient was seen in the cardiology office he was in sinus mechanism. However EKG on admission reveals atrial fibrillation. Suspect cardiomyopathy is secondary to atrial fibrillation. Clinically, the patient is not in acute congestive heart failure. Continue with home dose of oral diuretics. No need for IV diuresis at this time. Add BNP. Begin amiodarone 400 mg twice a day Add Farxiga 10 mg daily Initiate telemetry monitoring N.p.o. at midnight Patient to undergo GENARO and cardioversion tomorrow with Dr. Alvares Further recommendations pending patient course Nurse practitioner note has been reviewed by physician. Signing provider agrees with the documented findings, assessment, and plan of care documented by MACHINE OPERATIONS SUPERVISOR as a scribe. Past Medical History Past Medical History: Atrial Fibrillation, CVA/TIA, GERD/Reflux, Hearing Disorder / Deafness, Hyperlipidemia, Osteoarthritis (OA), Prostate Disorder Additional Past Medical History / Comment(s): Tinnitus, Hx kidney stones, BPH, LUNG SCARRING. 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 History of Any Multi-Drug Resistant Organisms: None Reported Past Surgical History: Adenoidectomy, Ear Surgery, Heart Catheterization, Joint Replacement, Tonsillectomy Additional Past Surgical History / Comment(s): Oral surgery, diana knee replacements, partial thyroidectomy, diana cataracts. EGD, COLONOSCOPY ca rdioversion Past Anesthesia/Blood Transfusion Reactions: No Reported Reaction Past Psychological History: Anxiety Smoking Status: Former smoker Past Alcohol Use History: None Reported Additional Past Alcohol Use History / Comment(s): quit smoking 1986, started smoking age 17, 3 PPD. Pt states daily drinking when younger, average 6 beers or 1 pint Past Drug Use History: None Reported - Past Family History Mother Family Medical History: No Reported History Additional Family Medical History / Comment(s): . Medications and Allergies Home Medications Medication Instructions Recorded Confirmed Type Sertraline HCl [Zoloft] 200 mg PO DAILY 10/30/13 11/24/23 History Temazepam [Restoril] 30 mg PO HS 10/30/13 11/24/23 History Apixaban [Eliquis] 5 mg PO BID #60 tab 06/12/18 11/24/23 Rx Acetaminophen Tab [Tylenol] 1,000 mg PO HS 08/08/18 11/24/23 History Furosemide [Lasix] 40 mg PO DAILY 09/17/18 11/24/23 History Metoprolol Tartrate [Lopressor] 25 mg PO BID 07/01/21 11/24/23 History Allergies Allergy/AdvReac Type Severity Reaction Status Date / Time hydrocodone [From Lortab] Allergy SEVERE Verified 11/13/23 10:39 ABDOMINAL AND TROUBLE BREATHING hydrocodone bitartrate Allergy Anaphylaxis Verified 11/13/23 10:39 [From Vicodin] Penicillins Allergy Anaphylaxis Verified 11/13/23 10:39 propoxyphene napsylate Allergy Anaphylaxis Verified 11/13/23 10:39 [From Darvocet-N 100] tamsulosin HCl [From Flomax] Allergy Anaphylaxis Verified 11/13/23 10:39 Physical Exam Vitals: Vital Signs Temp Pulse Resp BP BP Pulse Ox 11/27/23 07:10 97.3 F L 87 16 95/57 91 L 11/27/23 02:00 96.7 F L 86 17 100/69 92 L 11/26/23 21:03 83 11/26/23 19:56 98.0 F 83 18 115/74 94 L 11/26/23 14:51 97.4 F L 72 17 109/72 93 L Intake and Output 11/26/23 11/27/23 11/27/23 22:59 06:59 14:59 Intake Total 0 Output Total 350 Balance -350 0 Intake: Oral 0 Output: Urine 350 Other: Voiding Method Urinal # Voids 0 Results 11/27/23 06:07 11/27/23 06:07 Cardiac Enzymes 11/27/23 Range/Units 06:07 AST 16 (14-35) U/L Comprehensive Metabolic Panel 11/27/23 Range/Units 06:07 Sodium 142 (135-145) mmol/L Potassium 3.6 (3.5-5.5) mmol/L Chloride 107 (96-109) mmol/L Carbon Dioxide 25.5 (21.6-31.8) mmol/L BUN 20.8 (9.0-27.0) mg/dL Creatinine 1.4 (0.6-1.5) mg/dL Glucose 104 (70-110) mg/dL Calcium 8.3 L (8.7-10.3) mg/dL AST 16 (14-35) U/L ALT 10 (10-49) U/L Alkaline Phosphatase 118 (41-126) U/L Total Protein 4.9 L (6.2-8.2) g/dL Albumin 3.3 L (3.8-4.9) g/dL Current Medications Generic Name Dose Route Start Last Admin Trade Name Freq PRN Reason Stop Dose Admin Acetaminophen 1,000 mg 11/25/23 21:00 11/26/23 21:03 Acetaminophen Tab 500 Mg Tab PO 1,000 mg HS KALEY Administration Acetaminophen 650 mg 11/25/23 12:26 11/26/23 12:02 Acetaminophen Tab 325 Mg Tab PO 650 mg Q6HR PRN Administration Fever and/ or Pain Apixaban 5 mg 11/25/23 10:00 11/27/23 08:45 Apixaban 5 Mg Tab PO 5 mg BID KALEY Administration Protocol Furosemide 40 mg 11/25/23 09:45 11/27/23 08:45 Furosemide 20 Mg Tab PO 40 mg DAILY KALEY Administration Metoprolol Tartrate 25 mg 11/25/23 09:45 11/27/23 08:45 Metoprolol Tartrate 25 Mg Tab PO 25 mg BID KALEY Administration Petrolatum 1 applic 11/26/23 16:17 11/26/23 16:33 Zinc Oxide Paste (Z-Guard) 1 Applic TOPICAL 1 applic BID PRN Administration Wound Healing Protocol Sertraline HCl 200 mg 11/25/23 09:45 11/27/23 10:30 Sertraline 100 Mg Tab PO 200 mg DAILY KALEY Administration Temazepam 30 mg 11/25/23 21:00 11/26/23 21:03 Temazepam 15 Mg Cap PO 30 mg HS KALEY Administration Intake and Output 11/26/23 11/27/23 11/27/23 22:59 06:59 14:59 Intake Total 0 Output Total 350 Balance -350 0 Intake: Oral 0 Output: Urine 350 Other: Voiding Method Urinal # Voids 0 11/24/23 16:16 11/27/23 06:07
--- NOTE | 2023-11-27 12:39 | P.PN ---
Subjective Progress Note Date: 11/27/23 Nick Vora, is an 83-year-old male who presented to [facility] emergency room with a chief complaint of generalized weakness, patient mostly is complaining of bilateral lower extremity weakness, with inability to stand or walk, he states that his symptoms has developed gradually, he denies any pain in the lower extremities however he states that he feels that his lower extremities are heavy. He was evaluated in the emergency room vital examination on presentation revealed a temperature of 97.5 pulse 92 respiration 18 blood pressure 104/80 pulse ox 92% on room air Laboratory data reveals a white blood count of 6.4 hemoglobin 14.1 platelet count 127 BUN 25 creatinine 1.22 Testing in the emergency room revealed EKG revealed atrial fibrillation with a heart rate of 107, chest x-ray revealed pulmonary vascular prominence. Patient was admitted to medical floor for further evaluation and treatment On 11/26/2023 patient is alert and oriented x 3. Still complaining of generalized weakness awaiting neurology and oncology input. Current vital signs temp 97.6, heart rate 69, respiratory rate 16, blood pressure 107/70 with a pulse ox of 97% on room air. Patient denies chest pain or shortness of breath. Patient denies nausea vomiting or diarrhea. Patient denies any urinary burning or frequency. On 11/27/2023 patient was seen and examined on the medical floor he is alert and oriented x 3 in no apparent distress he is still complaining of severe weakness with inability to stand or walk otherwise he denies any complaints at this time there is no fever or chills no headache or dizziness no chest pain no shortness of breath no cough no nausea or vomiting no abdominal pain no diarrhea and no urinary symptoms. Echocardiogram results reviewed, patient has severe global hy pokinesia, cardiology consultation requested, we are reviewing input from neurology and oncology will continue to follow. Objective - Vital Signs Vital signs: Vital Signs Temp 97.3 F L 11/27/23 07:10 Pulse 87 11/27/23 07:10 Resp 16 11/27/23 07:10 BP 95/57 11/27/23 07:10 Pulse Ox 91 L 11/27/23 07:10 FiO2 Intake & Output 11/26/23 11/27/23 11/27/23 18:59 06:59 18:59 Intake Total 118 0 Output Total 350 Balance 118 -350 0 Intake: Oral 118 0 Output: Urine 350 Other: Voiding Method Urinal Urinal # Voids 3 0 - Exam In general patient is alert and oriented x 3 in no distress HEENT head normocephalic and atraumatic Neck is supple no JVD no goiter no lymphadenopathy no carotid bruit Chest examination is clear to auscultation no crackles no wheezing Cardiac exam reveals regular heart sounds S1 and S2 no gallops no murmurs Abdomen is soft nontender no organomegaly with normal bowel sounds Extremity exam reveals no edema no cyanosis or clubbing Neurological examination reveals no gross focal deficits - Labs CBC & Chem 7: 11/27/23 06:07 11/27/23 06:07 Labs: Abnormal Lab Results - Last 24 Hours (Table) 11/26/23 11/27/23 11/27/23 Range/Units 11:19 06:07 06:07 MCV 105.2 H (80.0-97.0) FL MCH 33.0 H (27.0-32.0) pg MCHC 31.3 L (32.0-37.0) g/dL RDW 15.6 H (11.5-14.5) % Plt Count 129 L (140-440) X 10*3/uL Immature Gran # 0.08 H (0.00-0.04) X 10*3/uL Macrocytosis (manual) 2+ A Elliptocytes 2+ A Est GFR (CKD-EPI) 50 L (>=60) Calcium 8.3 L (8.7-10.3) mg/dL Iron 39 L (65-175) UG/DL TIBC 220 L (228-460) UG/DL Transferrin 157.0 L (204.0-354.0) mg/dL Ferritin 399.0 H (22.0-322.0) ng/mL Total Protein 4.9 L (6.2-8.2) g/dL Albumin 3.3 L (3.8-4.9) g/dL Assessment and Plan Plan: Bilateral lower extremity weakness, with inability to stand or walk Recent history of colonoscopy with polypectomy on 11/13/2023, by Dr. Yu with pathology positive for invasive colonic adenocarcinoma Underlying history of atrial fibrillation maintained on Eliquis Remote history of CVA Underlying history of hypertension Underlying history of hyperlipidemia Underlying history of osteoarthritis Underlying history of benign prostatic hypertrophy Underlying history of difficulty hearing At this time patient was seen and examined, chart was reviewed Home medications reviewed and reordered Neurology consultation was requested in regard to lower extremity weakness Oncology consultation was requested in regard to colon Adenocarcinoma Will follow closely prognosis is guarded
[2023-11-27] MEDS: DAPAGLIFLOZIN PROPANEDIOL 10 MG TABLET PO SCH (13:49)
[2023-11-27] MEDS: AMIODARONE 200 MG TAB PO SCH (13:49)
--- NOTE | 2023-11-27 14:58 | P.PN ---
Subjective Progress Note Date: 11/27/23 I am following-up with patient and he feels about the same. Denies of any new neurological issues. Objective - Vital Signs Vital signs: Vital Signs Temp 97.6 F 11/27/23 13:20 Pulse 86 11/27/23 13:20 Resp 18 11/27/23 13:20 BP 109/75 11/27/23 13:20 Pulse Ox 94 L 11/27/23 13:20 FiO2 Intake & Output 11/26/23 11/27/23 11/27/23 18:59 06:59 18:59 Intake Total 118 500 Output Total 350 Balance 118 -350 500 Intake: Oral 118 500 Output: Urine 350 Other: Voiding Method Urinal Urinal # Voids 3 0 2 # Bowel Movements 2 - Exam GENERAL: The patient is lying in bed and is not in acute distress. NEUROLOGICAL: Higher mental function: The patient is awake, alert, oriented to self, place and time. Patient is following commands. No aphasia and no neglect. Cranial nerves: The pupils are round, equal and reactive to light and accommodation. Visual pardo are full to confrontation throughout. Extraocular movement is intact no nystagmus is noted. Facial sensation is normal to touch throughout. The facial strength is normal throughout. Hearing is normal bilaterally to hand rub. Tongue is midline and moved [id number] without any difficulty. No dysarthria is noted. Shoulder shrug is normal bilaterally. Motor: The strength is left upper extremity is limited because of old left shoulder injury and had 4+ while distally is 5/5. Left lower extremity proxmimally is 3-4 and distally is 4-4+. Right lower is 4+ to 5-. Right upper is 5/5. Normal tone and bulk. Cerebellum: Normal finger to nose bilaterally. Sensation: Sensation is normal to touch throughout. Reflexes (right/left): 2+ uppers while lowers are 1-2+ at patellar while ankles are 1+ bilaterally. Plantars are mute bilaterally. Some of the workup during this hospital visit consisted of: TSH is 1.920 Vitamin B12: 618 Magnesium is 1.6, sodium is 138. - Labs CBC & Chem 7: 11/27/23 06:07 11/27/23 06:07 Labs: Abnormal Lab Results - Last 24 Hours (Table) 11/26/23 11/27/23 11/27/23 Range/Units 11:19 06:07 06:07 MCV 105.2 H (80.0-97.0) FL MCH 33.0 H (27.0-32.0) pg MCHC 31.3 L (32.0-37.0) g/dL RDW 15.6 H (11.5-14.5) % Plt Count 129 L (140-440) X 10*3/uL Immature Gran # 0.08 H (0.00-0.04) X 10*3/uL Macrocytosis (manual) 2+ A Elliptocytes 2+ A Est GFR (CKD-EPI) 50 L (>=60) Calcium 8.3 L (8.7-10.3) mg/dL Iron 39 L (65-175) UG/DL TIBC 220 L (228-460) UG/DL Transferrin 157.0 L (204.0-354.0) mg/dL Ferritin 399.0 H (22.0-322.0) ng/mL Total Protein 4.9 L (6.2-8.2) g/dL Albumin 3.3 L (3.8-4.9) g/dL Assessment and Plan Assessment: This is an 83-year-old gentleman with intermittent diarrhea for the last 6 tai hs with decreased oral intake who was recently diagnosed with colon cancer as well as has pulmonary nodule, lumbar degenerative changes, compression fracture of the L4 vertebra who is having weakness in the lower extremity since June 2023 progressively worsening as well as having numbness in the lowers and it seems it is more on the left but on examination it is more left than the right. Lower extremity weakness predominantly left more than the right with numbness rule out bone metastasis on the thoracic or cervical region. Recent diagnosis of colon cancer with recent pulmonary nodule Lumbar degenerative changes and he was evaluated by orthopedic and recommended conservative management according to the Compression fracture of the L4 History of atrial fibrillation status post ablation on Eliquis Hypertension Plan: Pending MRI of the cervical thoracic spine with and without. Patient had a recent MRI lumbar spine 08/29/2023 Oncology is consulted Will defer the rest of the medical management to primary and other specialist The plan is discussed with patient and primary team. Time with Patient: Less than 30
[2023-11-28 05:21] LABS: Methylmalonic Acid 0.31 umol/L (<0.40)
[2023-11-28] MEDS: IV FLUID CONTINUATION 1,000 ML IV ONE ×2 (10:00→10:48)
[2023-11-28] MEDS ORDERED: PROPOFOL 10 MG/ML 20 ML VIAL IV ONE (10:01)
--- NOTE | 2023-11-28 10:03 | P.PN ---
Subjective HISTORY OF PRESENT ILLNESS: This is a 83-year-old male with a past medical history significant for paroxysmal atrial fibrillation with previous cardioversion, mild CAD, and former nicotine dependence. Patient follows in the office with Dr. Alvares. We have been asked to see the patient in consultation for congestive heart failure. Patient examined at the bedside. Patient presented to the hospital with a chief complaint of worsening lower extremity weakness. This has been persistent for at least the last 6 months but patient states it has been getting worse. He denies any complaints of chest pain or pressure. He denies any shortness of breath at the time of examination but does report recently he has noticed he has been getting more short of breath. He states that he can feel palpitations occasionally when he moves from [id number] in the bed. At the time of examination he denies any palpitations. It is noted that the patient was in atrial fibrillation upon admission to the hospital. The last time he was seen in the cardiology office, patient was maintaining sinus mechanism at that time. DIAGNOSTICS: - EKG reveals atrial fibrillation with heart rate 107. No signs of acute ischemia. - Chest xray pulmonary vascular prominence - Laboratory data: WBC 6.4. Hemoglobin 14.1. Platelet count 127. Sodium 142. Potassium 3.6. BUN 20. Creatinine 1.4. Magnesium 1.6. Troponin negative x 1. - Current home cardiac medications include Eliquis 5 mg twice a day, Lasix 40 mg daily, metoprolol tartrate 25 mg twice a day - Echocardiogram obtained this admission reveals ejection fraction 25 to 30%, global left ventricular hypokinesis, moderate to severe pulmonary hypertension, mild mitral regurgitation, moderate tricuspid regurgitation - Lower extremity Doppler: Negative for DVT of right lower extremity - Cardiac catheterization history: 2013 revealing minimal CAD - Patient underwent Lexiscan stress test in October 2019 revealing small fixed inferior wall defect and mild global hypokinesis consistent with mild no nischemic cardiomyopathy. No evidence of stress-induced ischemia. 11/28/2023 Patient examined this morning at the bedside. Patient currently denies chest pain or pressure. At the time of examination, he denies any shortness of breath. Patient remains in atrial fibrillation with controlled ventricular rates. Blood pressure stable. PHYSICAL EXAM: VITAL SIGNS: Reviewed. GENERAL: Well-developed in no acute distress. HEENT: Head is normocephalic. Pupils are equal, round. Sclerae anicteric. Mucous membranes of the mouth are moist. Neck supple. No JVD or thyromegaly LUNGS: Respirations even and unlabored. Lungs essentially clear to auscultation bilaterally. HEART: Irregular Rate and rhythm. S1 and S2 heard. Systolic murmur noted. ABDOMEN: Soft. Nondistended. Nontender. EXTREMITIES: Normal range of motion. No clubbing or cyanosis. Peripheral pulses intact. No lower extremity edema NEUROLOGIC: Awake and alert. Oriented x 3. ASSESSMENT: Lower extremity weakness x 6 months, worsening per patient Status post colonoscopy 11/13/2023 revealing cecal mass, pathology positive for invasive adenocarcinoma Pulmonary nodule Shortness of breath, likely secondary to atrial fibrillation, no clinical evidence for acute congestive heart failure Cardiomyopathy, nonischemic likely from being back in atrial fibrillation, EF 25 to 30%, new from previous echo performed in 2019 revealing ejection fraction 55% History of nonischemic cardiomyopathy in 2019 when patient was in atrial fibrillation Paroxysmal atrial fibrillation History of GENARO and cardioversion History of A-fib ablation, 2018 Moderate to severe pulmonary hypertension Mild coronary artery disease, per cardiac catheterization 2013 Former nicotine dependence PLAN: Continue current cardiac medications Continue telemetry monitoring Patient to undergo GENARO and cardioversion today with Dr. Alvares Further recommendations pending patient course Nurse practitioner note has been reviewed by physician. Signing provider agrees with the documented findings, assessment, and plan of care documented by WEBSITE PROJECT MANAGER as a scribe. Objective - Vital Signs Vital signs: Vital Signs Temp 96.2 F L 11/28/23 06:53 Pulse 74 11/28/23 06:53 Resp 18 11/28/23 06:53 BP 97/62 11/28/23 06:53 Pulse Ox 93 L 11/28/23 06:53 FiO2 Intake & Output 11/27/23 11/28/23 11/28/23 18:59 06:59 18:59 Intake Total 750 Output Total 400 Balance 750 -400 Intake: Oral 750 Output: Urine 400 Other: Voiding Method Urinal # Voids 2 # Bowel Movements 2 - Labs CBC & Chem 7: 11/27/23 06:07 11/27/23 06:07 Labs: Abnormal Lab Results - Last 24 Hours (Table) 11/27/23 11/27/23 11/27/23 Range/Units 06:07 06:07 06:07 MCV 105.2 H (80.0-97.0) FL MCH 33.0 H (27.0-32.0) pg MCHC 31.3 L (32.0-37.0) g/dL RDW 15.6 H (11.5-14.5) % Plt Count 129 L (140-440) X 10*3/uL Immature Gran # 0.08 H (0.00-0.04) X 10*3/uL Macrocytosis (manual) 2+ A Elliptocytes 2+ A Est GFR (CKD-EPI) 50 L (>=60) Calcium 8.3 L (8.7-10.3) mg/dL NT-Pro-B Natriuret Pep 94738 H (0-450) pg/mL Total Protein 4.9 L (6.2-8.2) g/dL Albumin 3.3 L (3.8-4.9) g/dL
[2023-11-28] MEDS: BENZOCAINE SPRAY 1 EACH MM ONE (10:21)
--- NOTE | 2023-11-28 10:55 | P.PCN ---
Date of Procedure: 11/28/23 Description of Procedure: Indication: Atrial fibrillation Procedure Description: After explaining the procedure to the patient, it's risk and complications, blood pressure, heart rate and O2 saturation were monitored. The throat was sprayed with Cetacaine. Patient received sedation per anesthesia department. The probe was introduced into the esophagus without difficulty. Images were obtained. Following that, the probe was removed. There was no immediate complication. Findings: Left atrial size is dilated, spontaneous contrast was noted. Left atrial appendage is normal. Left ventricular systolic function is decreased with moderate global hypokinesis, estimated ejection fraction 35 to 40%. The aortic valve revealed fibrocalcific changes of the aortic cusps with preserved opening. Mild thickening of the mitral valve leaflets was noted. Tricuspid valve appears to be normal. Pulmonic valve appears to be normal. No pericardial effusion was noted. Descending thoracic aorta revealed mild atherosclerotic changes. Contrast bubble study revealed [id number] shunting through an ASD Doppler: Pulse wave and color Doppler were obtained, and revealed mild mitral with moderate tricuspid regurgitation. The estimated right ventricular systolic pressure is 40 to 45 mmHg. Mild aortic regurgitation was noted. [id number] shunting through a secundum ASD was noted Conclusion: 1. Dilated left atrium with normal appearance of the left atrial appendage and spontaneous contrast 2. Moderate global hypokinesis of the left ventricle 3. Mild mitral with moderate tricuspid regurgitation and mild pulmonary hypertension 4. Secundum ASD with bidirectional flow 5. No pericardial effusion 6. Mild aortic regurgitation Cardioversion: After performing GENARO and obtaining sedated state a synchronized biphasic cardioversion was performed using 150 J. There was no immediate complications.
--- NOTE | 2023-11-28 14:47 | P.PN ---
Subjective Progress Note Date: 11/28/23 Nick Vora, is an 83-year-old male who presented to [facility] emergency room with a chief complaint of generalized weakness, patient mostly is complaining of bilateral lower extremity weakness, with inability to stand or walk, he states that his symptoms has developed gradually, he denies any pain in the lower extremities however he states that he feels that his lower extremities are heavy. He was evaluated in the emergency room vital examination on presentation revealed a temperature of 97.5 pulse 92 respiration 18 blood pressure 104/80 pulse ox 92% on room air Laboratory data reveals a white blood count of 6.4 hemoglobin 14.1 platelet count 127 BUN 25 creatinine 1.22 Testing in the emergency room revealed EKG revealed atrial fibrillation with a heart rate of 107, chest x-ray revealed pulmonary vascular prominence. Patient was admitted to medical floor for further evaluation and treatment On 11/26/2023 patient is alert and oriented x 3. Still complaining of generalize d weakness awaiting neurology and oncology input. Current vital signs temp 97.6, heart rate 69, respiratory rate 16, blood pressure 107/70 with a pulse ox of 97% on room air. Patient denies chest pain or shortness of breath. Patient denies nausea vomiting or diarrhea. Patient denies any urinary burning or frequency. On 11/27/2023 patient was seen and examined on the medical floor he is alert and oriented x 3 in no apparent distress he is still complaining of severe weakness with inability to stand or walk otherwise he denies any complaints at this time there is no fever or chills no headache or dizziness no chest pain no shortness of breath no cough no nausea or vomiting no abdominal pain no diarrhea and no urinary symptoms. Echocardiogram results reviewed, patient has severe global h ypokinesia, cardiology consultation requested, we are reviewing input from neurology and oncology will continue to follow. On 11/28/2023 patient was seen and examined on the medical floor he is alert and oriented x 3 in no apparent distress he reports some improvement in his fatigue and shortness of breath otherwise he denies any complaints there is no fever or chills no headache or dizziness no chest pain no nausea or vomiting no abdominal pain no diarrhea and no urinary symptoms. Patient underwent GENARO and cardioversion. patient is requesting that any treatment related to his colon cancer will be done during this admission. A consultation for gastroenterology and general surgery was initiated Objective - Vital Signs Vital signs: Vital Signs Temp 96.2 F L 11/28/23 06:53 Pulse 87 11/28/23 11:30 Resp 16 11/28/23 11:30 BP 117/65 11/28/23 11:30 Pulse Ox 98 11/28/23 11:30 FiO2 Intake & Output 11/27/23 11/28/23 11/28/23 18:59 06:59 18:59 Intake Total 750 200 Output Total 400 Balance 750 -400 200 Weight 107.955 kg Intake: IV 200 Oral 750 Output: Urine 400 Other: Voiding Method Urinal Urinal # Voids 2 # Bowel Movements 2 - Exam In general patient is alert and oriented x 3 in no distress HEENT head normocephalic and atraumatic Neck is supple no JVD no goiter no lymphadenopathy no carotid bruit Chest examination is clear to auscultation no crackles no wheezing Cardiac exam reveals regular heart sounds S1 and S2 no gallops no murmurs Abdomen is soft nontender no organomegaly with normal bowel sounds Extremity exam reveals no edema no cyanosis or clubbing Neurological examination reveals no gross focal deficits - Labs CBC & Chem 7: 11/27/23 06:07 11/27/23 06:07 Labs: Abnormal Lab Results - Last 24 Hours (Table) 11/27/23 Range/Units 06:07 NT-Pro-B Natriuret Pep 97428 H (0-450) pg/mL Assessment and Plan Plan: Bilateral lower extremity weakness, with inability to stand or walk Recent history of colonoscopy with polypectomy on 11/13/2023, by Dr. Yu with pathology positive for invasive colonic adenocarcinoma Underlying history of atrial fibrillation maintained on Eliquis Remote history of CVA Underlying history of hypertension Underlying history of hyperlipidemia Underlying history of osteoarthritis Underlying history of benign prostatic hypertrophy Underlying history of difficulty hearing At this time patient was seen and examined, chart was reviewed Home medications reviewed and reordered Neurology consultation was requested in regard to lower extremity weakness Oncology consultation was requested in regard to colon Adenocarcinoma Will follow closely prognosis is guarded
[2023-11-28] MEDS: SODIUM CHLORIDE 0.9% 1,000 ML IV SCH (21:24)
[2023-11-29] MEDS: SACUBITRIL/VALSARTAN 24 MG-26 MG TABLET PO SCH (08:25)
[2023-11-29 08:47] LABS: Basophils # (A) 0.04 X 10*3/uL (0.00-0.10); Basophils % (A) 0.6 %; Eosinophils # (A) 0.19 X 10*3/uL (0.04-0.35); Eosinophils % (A) 2.6 %; HGB 14.5 g/dL (13.0-17.0); Lymphocytes # (A) 1.18 X 10*3/uL (0.90-5.00); Lymphocytes % (A) 16.3 %; MCH 32.1 pg (27.0-32.0); MCHC 31.5 g/dL (32.0-37.0); MCV 101.8 FL (80.0-97.0); Mean Platelet Volume 11.1 FL (9.5-12.2); Monocytes # (A) 0.52 X 10*3/uL (0.20-1.00); Monocytes % (A) 7.2 %; NRBC Per 100 WBC 0 X 10*3/uL (0.00-0.01); Neutrophils # (A) 5.19 X 10*3/uL (1.80-7.70); Neutrophils % (A) 71.8 %; Platelet Count 131 X 10*3/uL (140-440); RBC 4.52 X 10*6/uL (4.40-5.60); RDW 15.6 % (11.5-14.5); WBC 7.23 X 10*3/uL (4.50-10.00)
[2023-11-29 08:51] LABS: ALT 10 U/L (10-49); AST 18 U/L (14-35); Albumin 3.4 g/dL (3.8-4.9); Alkaline Phosphatase 119 U/L (41-126); BUN/Creat Ratio 14.08 Ratio (12.00-20.00); Blood Urea Nitrogen 18.3 mg/dL (9.0-27.0); Calcium 8.2 mg/dL (8.7-10.3); Carbon Dioxide 22.8 mmol/L (21.6-31.8); Chloride 107 mmol/L (96-109); Globulin 1.7 g/dL (1.6-3.3); Glucose 91 mg/dL (70-110); Potassium 3.6 mmol/L (3.5-5.5); Sodium 141 mmol/L (135-145); Total Protein 5.1 g/dL (6.2-8.2)
--- NOTE | 2023-11-29 10:00 | P.PN ---
Subjective HISTORY OF PRESENT ILLNESS: This is a 83-year-old male with a past medical history significant for paroxysmal atrial fibrillation with previous cardioversion, mild CAD, and former nicotine dependence. Patient follows in the office with Dr. Alvares. We have been asked to see the patient in consultation for congestive heart failure. Patient examined at the bedside. Patient presented to the hospital with a chief complaint of worsening lower extremity weakness. This has been persistent for at least the last 6 months but patient states it has been getting worse. He denies any complaints of chest pain or pressure. He denies any shortness of breath at the time of examination but does report recently he has noticed he has been getting more short of breath. He states that he can feel palpitations occasionally when he moves from [id number] in the bed. At the time of examination he denies any palpitations. It is noted that the patient was in atrial fibrillation upon admission to the hospital. The last time he was seen in the cardiology office, patient was maintaining sinus mechanism at that time. DIAGNOSTICS: - EKG reveals atrial fibrillation with heart rate 107. No signs of acute ischemia. - Chest xray pulmonary vascular prominence - Laboratory data: WBC 6.4. Hemoglobin 14.1. Platelet count 127. Sodium 142. Potassium 3.6. BUN 20. Creatinine 1.4. Magnesium 1.6. Troponin negative x 1. - Current home cardiac medications include Eliquis 5 mg twice a day, Lasix 40 mg daily, metoprolol tartrate 25 mg twice a day - Echocardiogram obtained this admission reveals ejection fraction 25 to 30%, global left ventricular hypokinesis, moderate to severe pulmonary hypertension, mild mitral regurgitation, moderate tricuspid regurgitation - Lower extremity Doppler: Negative for DVT of right lower extremity - Cardiac catheterization history: 2013 revealing minimal CAD - Patient underwent Lexiscan stress test in October 2019 revealing small fixed inferior wall defect and mild global hypokinesis consistent with mild no nischemic cardiomyopathy. No evidence of stress-induced ischemia. 11/28/2023 Patient examined this morning at the bedside. Patient currently denies chest pain or pressure. At the time of examination, he denies any shortness of breath. Patient remains in atrial fibrillation with controlled ventricular rates. Blood pressure stable. 11/29/2023 Patient examined this morning the bedside. Patient underwent GENARO and cardioversion yesterday with Dr. Alvares. He is maintaining sinus mechanism this morning. Patient currently denies chest pain or pressure. He denies shortness of breath. He continues to report weakness today. He states overall he is feeling better after his cardioversion yesterday. PHYSICAL EXAM: VITAL SIGNS: Reviewed. GENERAL: Well-developed in no acute distress. HEENT: Head is normocephalic. Pupils are equal, round. Sclerae anicteric. Mucous membranes of the mouth are moist. Neck supple. No JVD or thyromegaly LUNGS: Respirations even and unlabored. Lungs essentially clear to auscultation bilaterally. HEART: Regular rate and rhythm. S1 and S2 heard. Systolic murmur noted. ABDOMEN: Soft. Nondistended. Nontender. EXTREMITIES: Normal range of motion. No clubbing or cyanosis. Peripheral pulses intact. No lower extremity edema NEUROLOGIC: Awake and alert. Oriented x 3. ASSESSMENT: Lower extremity weakness x 6 months, worsening per patient Status post colonoscopy 11/13/2023 revealing cecal mass, pathology positive for invasive adenocarcinoma Pulmonary nodule Shortness of breath, likely secondary to atrial fibrillation, no clinical evidence for acute congestive heart failure Status post GENARO and cardioversion, 11/28/2023 Cardiomyopathy, nonischemic likely from being back in atrial fibrillation, EF 25 to 30%, new from previous echo performed in 2019 revealing ejection fraction 55% History of nonischemic cardiomyopathy in 2019 when patient was in atrial fibrillation Paroxysmal atrial fibrillation History of GENARO and cardioversion History of A-fib ablation, 2018 Moderate to severe pulmonary hypertension Mild coronary artery disease, per cardiac catheterization 2013 Former nicotine dependence PLAN: Continue current cardiac medications Continue telemetry monitoring Add Entresto 24-26 mg twice a day Check BNP and BMP tomorrow Continue amiodarone 400 mg twice a day for today. Decrease dosage tomorrow to 200 mg twice a day General Surgery has been consulted due to patient's recent diagnosis of colon cancer. Await recommendations. Further recommendations pending patient course Nurse practitioner note has been reviewed by physician. Signing provider agrees with the documented findings, assessment, and plan of care documented by SEED LABORATORY TECHNICIAN as a scribe. Objective - Vital Signs Vital signs: Vital Signs Temp 97.6 F 11/29/23 07:00 Pulse 69 11/29/23 07:00 Resp 16 11/29/23 07:00 BP 111/71 11/29/23 07:00 Pulse Ox 93 L 11/29/23 07:00 FiO2 Intake & Output 11/28/23 11/29/23 11/29/23 18:59 06:59 18:59 Intake Total 622 Output Total 350 Balance 622 -350 Weight 107.955 kg Intake: IV 200 Oral 422 Output: Urine 350 Other: Voiding Method Urinal Urinal # Voids 3 # Bowel Movements 1 - Labs CBC & Chem 7: 11/29/23 05:12 11/29/23 05:12 Labs: Abnormal Lab Results - Last 24 Hours (Table) 11/29/23 11/29/23 Range/Units 05:12 05:12 MCV 101.8 H (80.0-97.0) FL MCH 32.1 H (27.0-32.0) pg MCHC 31.5 L (32.0-37.0) g/dL RDW 15.6 H (11.5-14.5) % Plt Count 131 L (140-440) X 10*3/uL Immature Gran # 0.11 H (0.00-0.04) X 10*3/uL Est GFR (CKD-EPI) 55 L (>=60) Calcium 8.2 L (8.7-10.3) mg/dL Total Protein 5.1 L (6.2-8.2) g/dL Albumin 3.4 L (3.8-4.9) g/dL
--- NOTE | 2023-11-29 10:28 | P.PN ---
Subjective Progress Note Date: 11/29/23 Nick Vora, is an 83-year-old male who presented to [facility] emergency room with a chief complaint of generalized weakness, patient mostly is complaining of bilateral lower extremity weakness, with inability to stand or walk, he states that his symptoms has developed gradually, he denies any pain in the lower extremities however he states that he feels that his lower extremities are heavy. He was evaluated in the emergency room vital examination on presentation revealed a temperature of 97.5 pulse 92 respiration 18 blood pressure 104/80 pulse ox 92% on room air Laboratory data reveals a white blood count of 6.4 hemoglobin 14.1 platelet count 127 BUN 25 creatinine 1.22 Testing in the emergency room revealed EKG revealed atrial fibrillation with a heart rate of 107, chest x-ray revealed pulmonary vascular prominence. Patient was admitted to medical floor for further evaluation and treatment On 11/26/2023 patient is alert and oriented x 3. Still complaining of generalized weakness awaiting neurology and oncology input. Current vital signs temp 97.6, heart rate 69, respiratory rate 16, blood pressure 107/70 with a pulse ox of 97% on room air. Patient denies chest pain or shortness of breath. Patient denies nausea vomiting or diarrhea. Patient denies any urinary burning or frequency. On 11/27/2023 patient was seen and examined on the medical floor he is alert and oriented x 3 in no apparent distress he is still complaining of severe weakness with inability to stand or walk otherwise he denies any complaints at this time there is no fever or chills no headache or dizziness no chest pain no shortness of breath no cough no nausea or vomiting no abdominal pain no diarrhea and no urinary symptoms. Echocardiogram results reviewed, patient has severe global hy pokinesia, cardiology consultation requested, we are reviewing input from neurology and oncology will continue to follow. On 11/28/2023 patient was seen and examined on the medical floor he is alert and oriented x 3 in no apparent distress he reports some improvement in his fatigue and shortness of breath otherwise he denies any complaints there is no fever or chills no headache or dizziness no chest pain no nausea or vomiting no abdominal pain no diarrhea and no urinary symptoms. Patient underwent GENARO and cardioversion. patient is requesting that any treatment related to his colon cancer will be done during this admission. A consultation for gastroenterology and general surgery was initiated On 11/29/2023 patient is alert and oriented x 3. Per GI services General Surgery will follow patient. Awaiting further recommendations from surgical services. Patient denies any chest pain or shortness of breath. Patient denies nausea vomiting or diarrhea. Patient denies any urinary burning or frequency. Objective - Vital Signs Vital signs: Vital Signs Temp 97.6 F 11/29/23 07:00 Pulse 69 11/29/23 07:00 Resp 16 11/29/23 07:00 BP 111/71 11/29/23 07:00 Pulse Ox 93 L 11/29/23 07:00 FiO2 Intake & Output 11/28/23 11/29/23 11/29/23 18:59 06:59 18:59 Intake Total 622 Output Total 350 Balance 622 -350 Weight 107.955 kg Intake: IV 200 Oral 422 Output: Urine 350 Other: Voiding Method Urinal Urinal # Voids 3 # Bowel Movements 1 - Exam In general patient is alert and oriented x 3 in no distress HEENT head normocephalic and atraumatic Neck is supple no JVD no goiter no lymphadenopathy no carotid bruit Chest examination is clear to auscultation no crackles no wheezing Cardiac exam reveals regular heart sounds S1 and S2 no gallops no murmurs Abdomen is soft nontender no organomegaly with normal bowel sounds Extremity exam reveals no edema no cyanosis or clubbing Neurological examination reveals no gross focal deficits - Labs CBC & Chem 7: 11/29/23 05:12 11/29/23 05:12 Labs: Abnormal Lab Results - Last 24 Hours (Table) 11/29/23 11/29/23 Range/Units 05:12 05:12 MCV 101.8 H (80.0-97.0) FL MCH 32.1 H (27.0-32.0) pg MCHC 31.5 L (32.0-37.0) g/dL RDW 15.6 H (11.5-14.5) % Plt Count 131 L (140-440) X 10*3/uL Immature Gran # 0.11 H (0.00-0.04) X 10*3/uL Est GFR (CKD-EPI) 55 L (>=60) Calcium 8.2 L (8.7-10.3) mg/dL Total Protein 5.1 L (6.2-8.2) g/dL Albumin 3.4 L (3.8-4.9) g/dL Assessment and Plan Assessment: Bilateral lower extremity weakness, with inability to stand or walk Recent history of colonoscopy with polypectomy on 11/13/2023, by Dr. Yu with pathology positive for invasive colonic adenocarcinoma Underlying history of atrial fibrillation maintained on Eliquis Remote history of CVA Underlying history of hypertension Underlying history of hyperlipidemia Underlying history of osteoarthritis Underlying history of benign prostatic hypertrophy Underlying history of difficulty hearing At this time patient was seen and examined, chart was reviewed Home medications reviewed and reordered Neurology consultation was requested in regard to lower extremity weakness Oncology consultation was requested in regard to colon Adenocarcinoma Will follow closely prognosis is guarded
--- NOTE | 2023-11-29 10:59 | P.CONS ---
History of Present Illness - Reason for Consult Consult date: 11/29/23 colon cancer Requesting physician: Juan C Beltran - Chief Complaint Lower extremity weakness - History of Present Illness This is a pleasant 83-year-old male with multiple comorbidities who presented to the emergency department 5 days ago with complaints of lower extremity weakness, decreased appetite and diarrhea. He underwent colonoscopy 11/13/2023 and was recently diagnosed with invasive colonic adenocarcinoma. Dr. Gore had referred him to Dr. Dsouza general surgeon. He is also following with Dr. Reece with outpatient PET scan ordered. Multiple consultants are following patient. He underwent GENARO with cardiology. Neurology is following for lower extremity we akness. Patient denies any significant abdominal pain, nausea or vomiting at this time. He does have decreased appetite. Does have some thrombocytopenia, hemoglobin stable. Labs overall are unremarkable. Review of Systems REVIEW OF SYSTEMS: CARDIOPULMONARY: No chest pain or shortness of breath. Gastrointestinal: No abdominal pain. No nausea or vomiting. No hematemesis, coffee-ground emesis. No rectal bleeding, or melena. Patient has decreased appetite and weight loss. GENITOURINARY: No dysuria or hematuria. MUSCULOSKELETAL: Lower extremity weakness with difficulty walking. SKIN: No rashes. No jaundice. ENDOCRINE: No chills, fevers. No excessive weight gain or loss. No polydipsia or polyuria. PSYCHIATRIC: Unremarkable. NEUROLOGY: No change in mental status. Denies dizziness, headache. Lower extremity weakness with difficulty walking. ENT: Vision unremarkable. CONSTITUTIONAL: No recent weight loss. No fever, chills, night sweats. Past Medical History Past Medical History: Atrial Fibrillation, CVA/TIA, GERD/Reflux, Hearing Disorder / Deafness, Hyperlipidemia, Osteoarthritis (OA), Prostate Disorder Additional Past Medical History / Comment(s): Tinnitus, Hx kidney stones, BPH, LUNG SCARRING. 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 History of Any Multi-Drug Resistant Organisms: None Reported Past Surgical History: Adenoidectomy, Ear Surgery, Heart Catheterization, Joint Replacement, Tonsillectomy Additional Past Surgical History / Comment(s): Oral surgery, diana knee replacements, partial thyroidectomy, diana cataracts. EGD, COLONOSCOPY cardioversion Past Anesthesia/Blood Transfusion Reactions: No Reported Reaction Past Psychological History: Anxiety Smoking Status: Former smoker Past Alcohol Use History: None Reported Additional Past Alcohol Use History / Comment(s): quit smoking 1986, started smoking age 17, 3 PPD. Pt states daily drinking when younger, average 6 beers or 1 pint Past Drug Use History: None Reported - Past Family History Mother Family Medical History: No Reported History Additional Family Medical History / Comment(s): . Medications and Allergies Home Medications Medication Instructions Recorded Confirmed Type Sertraline HCl [Zoloft] 200 mg PO DAILY 10/30/13 11/24/23 History Temazepam [Restoril] 30 mg PO HS 10/30/13 11/24/23 History Apixaban [Eliquis] 5 mg PO BID #60 tab 06/12/18 11/24/23 Rx Acetaminophen Tab [Tylenol] 1,000 mg PO HS 08/08/18 11/24/23 History Furosemide [Lasix] 40 mg PO DAILY 09/17/18 11/24/23 History Metoprolol Tartrate [Lopressor] 25 mg PO BID 07/01/21 11/24/23 History Allergies Allergy/AdvReac Type Severity Reaction Status Date / Time hydrocodone [From Lortab] Allergy SEVERE Verified 11/13/23 10:39 ABDOMINAL AND TROUBLE BREATHING hydrocodone bitartrate Allergy Anaphylaxis Verified 11/13/23 10:39 [From Vicodin] Penicillins Allergy Anaphylaxis Verified 11/13/23 10:39 propoxyphene napsylate Allergy Anaphylaxis Verified 11/13/23 10:39 [From Darvocet-N 100] tamsulosin HCl [From Flomax] Allergy Anaphylaxis Verified 11/13/23 10:39 Physical Exam Vitals: Vital Signs Temp Pulse Pulse Resp BP BP Pulse Ox 11/29/23 02:00 98.2 F 94 14 109/68 93 L 11/28/23 18:56 97.4 F L 93 18 126/74 95 11/28/23 13:30 95 117/75 94 L 11/28/23 13:00 69 109/68 94 L 11/28/23 12:30 67 110/73 95 11/28/23 12:15 91 116/75 94 L 11/28/23 12:00 92 116/77 94 L 11/28/23 11:45 94.7 F L 68 17 117/72 95 10/10/24 11:30 87 16 117/65 98 11/28/23 11:15 68 16 112/69 98 11/28/23 11:00 71 16 115/67 98 11/28/23 10:45 85 18 92/50 95 11/28/23 06:53 96.2 F L 74 18 97/62 93 L Intake and Output 11/28/23 11/28/23 11/29/23 14:59 22:59 06:59 Intake Total 400 222 Output Total 225 Balance 400 -3 Intake: IV 200 Oral 200 222 Output: Urine 225 Other: Voiding Method Urinal Urinal Urinal # Voids 3 # Bowel Movements 1 Weight 107.955 kg General appearance: The patient is alert, oriented, appears in no acute distress. HET: Head is normocephalic and atraumatic. Conjunctiva pink. Sclera anicteric. Neck: Supple without lymphadenopathy. Abdomen: Soft, nontender, nondistended with bowel sounds. No guarding or rigidity. Extremities: Normal skin color and turgor. No pedal edema Skin: No rashes, no jaundice Neurological: No focal deficits. Alert and oriented. Results CBC & Chem 7: 11/29/23 05:12 11/29/23 05:12 Assessment and Plan (1) Colon adenocarcinoma Narrative/Plan: 83-year-old male who underwent recent colonoscopy with Dr. Landon on 11/13/2023 with positive biopsy for invasive colonic adenocarcinoma. Referral sent for oncology as well as general surgery with Dr. Dsouza. There is no further workup from gastroenterology. We will consult Dr. Dsouza while patient is here. Oncology is already following. Current Visit: Yes Status: Acute Priority: High Code(s): C18.9 - MALIGNANT NEOPLASM OF COLON, UNSPECIFIED SNOMED Code(s): 313433312 (2) Weakness Current Visit: Yes Status: Acute Priority: High Code(s): R53.1 - WEAKNESS SNOMED Code(s): 75804965 Plan: 1. Continue symptomatic and supportive care 2. Continue with recommendations from multiple consultants 3. Will consult Dr. Dsouza, outpatient referral set up 4. Continue with recommendations from oncology 5. There is no further workup indicated from gastroenterology Thank you for this consultation, we will sign off at this time. Dr. Samantha Gore I agree with the dictator's note, documented as a scribe by Debra Wilkinson.
--- NOTE | 2023-11-29 13:28 | P.GSCN ---
History of Present Illness Consult date: 11/29/23 History of present illness: CHIEF COMPLAINT: Weakness and diarrhea HISTORY OF PRESENT ILLNESS: This is a 83-year-old male who presented the hospital with weakness and diarrhea. Patient was also in atrial fibrillation on admission. He underwent a GENARO with cardioversion yesterday with cardiology service. Patient had a colonoscopy on 11/13/[address] Gore that had reported a cecal mass pathology was positive for invasive colonic adenocarcinoma. Surgical service was consulted in regards to patient's colon cancer. Patient denies any abdominal pain. Denies any nausea or vomiting. Denies any blood in his stools. Patient denies any chest pain or shortness of breath. PAST MEDICAL HISTORY: See list. PAST SURGICAL HISTORY: See list. MEDICATIONS: See list. ALLERGIES: See list. SOCIAL HISTORY: No illicit drug use. REVIEW OF SYSTEMS: CONSTITUTIONAL: Denies fever or chills. HEENT: Denies blurred vision, vision changes, or eye pain. Denies hemoptysis ENDOCRINE: Denies heat or cold intolerance. CARDIOVASCULAR: Denies chest pain or pressure. RESPIRATORY: No shortness of breath. GASTROINTESTINAL: Denies abdominal pain. Denies nausea or vomiting. NEURO: Denies history of seizures. PSYCH: No depression or suicidal ideation HEMATOLOGIC: Denies bleeding disorders. LYMPHATIC: The patient denies any lumps and bumps around the neck. GENITOURINARY: Denies any blood in urine or increased urinary frequency. MUSCULOSKELETAL: Denies myalgias. Denies joint swelling. Denies decreased range of motion beyond patients baseline. SKIN: Denies pruitis. Denies rash. PHYSICAL EXAM: VITAL SIGNS: Reviewed GENERAL: Well-developed in no acute distress. HEENT: No sclera icterus. Extraocular movements grossly intact. Moist buccal mucosa. Head is atraumatic, normocephalic. Hears conversational speech. No nasal drainage. NECK: Supple without lymphadenopathy. CHEST: Non-labored respirations and equal bilateral excursions. CARDIOVASCULAR: Palpable 2+ radial pulses. ABDOMEN: Soft. Nondistended. Nontender MUSCULOSKELETAL: No clubbing or cyanosis. NEUROLOGIC: No focal or lateralizing signs. Cranial nerves II through XII grossly intact. PSYCH: Appropriate affect. Alert and oriented to person, place and time. SKIN: Well perfused. Good skin turgor. LABORATORY DATA: WBC 7.23 Hgb 14.5 platelets 131 Sodium 141 potassium 3.6 creatinine 1.3 IMAGING: ASSESSMENT: 1. Cecal mass noted on colonoscopy in 11/13/2023 with pathology results positive for invasive colonic adenocarcinoma 2. Atrial fibrillation status post GENARO and cardioversion on 11/28/2023 3. Cardiomyopathy, EF of 25 to 30% 4. Weakness 4. Moderate to severe pulmonary hypertension PLAN: -No surgical intervention planned at this time -Patient needs to be medically optimized -Agree with advancing diet to heart healthy -Agree with protein supplement -Increase activity level Physician [employer] Tender note has been reviewed by physician. Signing provider agrees with the documented findings, assessment, and plan of care. Past Medical History Past Medical History: Atrial Fibrillation, CVA/TIA, GERD/Reflux, Hearing Disorder / Deafness, Hyperlipidemia, Osteoarthritis (OA), Prostate Disorder Additional Past Medical History / Comment(s): Tinnitus, Hx kidney stones, BPH, LUNG SCARRING. 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 History of Any Multi-Drug Resistant Organisms: None Reported Past Surgical History: Adenoidectomy, Ear Surgery, Heart Catheterization, Joint Replacement, Tonsillectomy Additional Past Surgical History / Comment(s): Oral surgery, diana knee replacements, partial thyroidectomy, diana cataracts. EGD, COLONOSCOPY cardioversion Past Anesthesia/Blood Transfusion Reactions: No Reported Reaction Past Psychological History: Anxiety Smoking Status: Former smoker Past Alcohol Use History: None Reported Additional Past Alcohol Use History / Comment(s): quit smoking 1986, started smoking age 17, 3 PPD. Pt states daily drinking when younger, average 6 beers or 1 pint Past Drug Use History: None Reported - Past Family History Mother Family Medical History: No Reported History Additional Family Medical History / Comment(s): . Medications and Allergies Home Medications Medication Instructions Recorded Confirmed Type Sertraline HCl [Zoloft] 200 mg PO DAILY 10/30/13 11/24/23 History Temazepam [Restoril] 30 mg PO HS 10/30/13 11/24/23 History Apixaban [Eliquis] 5 mg PO BID #60 tab 06/12/18 11/24/23 Rx Acetaminophen Tab [Tylenol] 1,000 mg PO HS 08/08/18 11/24/23 History Furosemide [Lasix] 40 mg PO DAILY 09/17/18 11/24/23 History Metoprolol Tartrate [Lopressor] 25 mg PO BID 07/01/21 11/24/23 History Allergies Allergy/AdvReac Type Severity Reaction Status Date / Time hydrocodone [From Lortab] Allergy SEVERE Verified 11/13/23 10:39 ABDOMINAL AND TROUBLE BREATHING hydrocodone bitartrate Allergy Anaphylaxis Verified 11/13/23 10:39 [From Vicodin] Penicillins Allergy Anaphylaxis Verified 11/13/23 10:39 propoxyphene napsylate Allergy Anaphylaxis Verified 11/13/23 10:39 [From Darvocet-N 100] tamsulosin HCl [From Flomax] Allergy Anaphylaxis Verified 11/13/23 10:39 Surgical - Exam Vital Signs Temp Pulse Resp BP Pulse Ox 97.5 F L 92 18 104/80 92 L 11/24/23 15:38 11/24/23 15:38 11/24/23 15:38 11/24/23 15:38 11/24/23 15:38 Results - Labs 11/29/23 05:12 11/29/23 05:12 Abnormal Lab Results - Last 24 Hours (Table) 11/29/23 11/29/23 Range/Units 05:12 05:12 MCV 101.8 H (80.0-97.0) FL MCH 32.1 H (27.0-32.0) pg MCHC 31.5 L (32.0-37.0) g/dL RDW 15.6 H (11.5-14.5) % Plt Count 131 L (140-440) X 10*3/uL Immature Gran # 0.11 H (0.00-0.04) X 10*3/uL Est GFR (CKD-EPI) 55 L (>=60) Calcium 8.2 L (8.7-10.3) mg/dL Total Protein 5.1 L (6.2-8.2) g/dL Albumin 3.4 L (3.8-4.9) g/dL Diabetes panel 11/29/23 Range/Units 05:12 Sodium 141 (135-145) mmol/L Potassium 3.6 (3.5-5.5) mmol/L Chloride 107 (96-109) mmol/L Carbon Dioxide 22.8 (21.6-31.8) mmol/L BUN 18.3 (9.0-27.0) mg/dL Creatinine 1.3 (0.6-1.5) mg/dL Glucose 91 (70-110) mg/dL Calcium 8.2 L (8.7-10.3) mg/dL AST 18 (14-35) U/L ALT 10 (10-49) U/L Alkaline Phosphatase 119 (41-126) U/L Total Protein 5.1 L (6.2-8.2) g/dL Albumin 3.4 L (3.8-4.9) g/dL Calcium panel 11/29/23 Range/Units 05:12 Calcium 8.2 L (8.7-10.3) mg/dL Albumin 3.4 L (3.8-4.9) g/dL Pituitary panel 11/29/23 Range/Units 05:12 Sodium 141 (135-145) mmol/L Potassium 3.6 (3.5-5.5) mmol/L Chloride 107 (96-109) mmol/L Carbon Dioxide 22.8 (21.6-31.8) mmol/L BUN 18.3 (9.0-27.0) mg/dL Creatinine 1.3 (0.6-1.5) mg/dL Glucose 91 (70-110) mg/dL Calcium 8.2 L (8.7-10.3) mg/dL Adrenal panel 11/29/23 Range/Units 05:12 Sodium 141 (135-145) mmol/L Potassium 3.6 (3.5-5.5) mmol/L Chloride 107 (96-109) mmol/L Carbon Dioxide 22.8 (21.6-31.8) mmol/L BUN 18.3 (9.0-27.0) mg/dL Creatinine 1.3 (0.6-1.5) mg/dL Glucose 91 (70-110) mg/dL Calcium 8.2 L (8.7-10.3) mg/dL Total Bilirubin 1.0 (0.3-1.2) mg/dL AST 18 (14-35) U/L ALT 10 (10-49) U/L Alkaline Phosphatase 119 (41-126) U/L Total Protein 5.1 L (6.2-8.2) g/dL Albumin 3.4 L (3.8-4.9) g/dL
--- NOTE | 2023-11-29 13:34 | CDI ---
Documentation Clarification Form Date: 11/29/2023 01:02:54 PM From: Mikki Blunt RN CCDS Phone: [phone] Admit Date: 11/25/2023 02:30:00 PM Patient Name: Nick Vora Visit Number: [id number] Discharge Date: ATTENTION: The Clinical Documentation Specialists (CDI) and [facility] Coding Staff appreciate your assistance in clarifying documentation. Please respond to the clarification below the line at the bottom and electronically sign. The CDI & [facility] Coding staff will review the response and follow-up if needed. Please note: Queries are made part of the Legal Health Record. If you have any questions, please contact the author of this message via ITS. Doctor: Juan C Beltran The patients principal diagnosis the diagnosis that was chiefly responsible for the admission - has not been clearly identified and clarification is requested. The patient presented with the following generalized weakness with inability to stand or walk symptoms have developed gradually, he denies any pain in the lower extremities. 11/24, HP. History/Risk factors: 83 year old male medical history: Atrial Fibrillation, CVA/TIA, GERD, Hearing Disorder, HLD, OA, recent diagnosis of colon cancer with recent pulmonary nodule. Clinical Indicators: Lab findings 11/23: Wbc 6.4, Hgb 14.1, Plt 127, Lymphocytes 0.8, BUN 25, Cr 1.22, GFR 55, Glcuose 100, Plasma lactic acid 1.1 Calcium 8.2, Iron 39, TIBC 220, %Saturation 17.73, Transferrin 157.0, Ferritin 399.0; Total Bilirubin 1.5 BNP 51553 Total protein 5.3 Albumin 3.1 Radiology findings: EKG 11/23: Atrial fibrillation with rapid ventricular response moderate intraventricular conduction delay. ECHO 11/25: EF 25-30% Severe global hypokinesis of the left ventricle. Mild mitral with moderate tricuspid regurgitation and moderate to severe pulmonary hypertension. GENARO and cardioversion, 11/28/2023 Cardiomyopathy, nonischemic likely from being back in atrial fibrillation, EF 25 to 30%, new from previous echo performed in 2019 revealing ejection fraction 55% History of nonischemic cardiomyopathy in 2019 when patient was in atrial fibrillation CXR1: Pulmonary vascular prominence Venous Doppler duplex LE RT: No evidence of DVT of the right lower extremity Vital Signs:11/23 B/P 104/80 HR 92 RR 18 Temp 97.5F Oral; SpO2 92% ra Treatment: 11/27 GENARO with Cardioversion, 11/23 0.9ns 1L IV Bolus; 11/24 Lasix po daily, 11/24 Lopressor po bid ; 11/24 Eliquis bid; 11/26 Amiodarone po bid; 11/26 Farxiga po daily; Enteresto po po bid Consults: Cardiology, GI, Oncology, Neurology In your professional opinion, can you please clarify which diagnosis, after study, was the reason chiefly responsible for the admission? [ xxxx ] Atrial Fibrillation RVR [ ] Other, please specify [ ] Unable to determine (Template Last Revised: April 2020) MTDD
--- NOTE | 2023-11-29 15:15 | P.PN ---
Subjective Progress Note Date: 11/29/23 I am following-up with patient and continues to be about the same. Denies any new neurological issues. Objective - Vital Signs Vital signs: Vital Signs Temp 97.6 F 11/29/23 07:00 Pulse 69 11/29/23 07:00 Resp 16 11/29/23 07:00 BP 111/71 11/29/23 07:00 Pulse Ox 93 L 11/29/23 07:00 FiO2 Intake & Output 11/28/23 11/29/23 11/29/23 18:59 06:59 18:59 Intake Total 622 480 Output Total 350 Balance 622 -350 480 Weight 107.955 kg Intake: IV 200 Oral 422 480 Output: Urine 350 Other: Voiding Method Urinal Urinal # Voids 3 # Bowel Movements 1 - Exam GENERAL: The patient is lying in bed and is not in acute distress. NEUROLOGICAL: Higher mental function: The patient is awake, alert, oriented to self, place and time. Patient is following commands. No aphasia and no neglect. Cranial nerves: The pupils are round, equal and reactive to light and accommodation. Visual pardo are full to confrontation throughout. Extraocular movement is intact no nystagmus is noted. Facial sensation is normal to touch throughout. The facial strength is normal throughout. Hearing is normal bilaterally to hand rub. Tongue is midline and moved [id number] without any difficulty. No dysarthria is noted. Shoulder shrug is normal bilaterally. Motor: The strength is left upper extremity is limited because of old left shoulder injury and had 4+ while distally is 5/5. Left lower extremity proxmimally is 3-4 and distally is 4-4+. Right lower is 4+ to 5-. Right upper is 5/5. Normal tone and bulk. Cerebellum: Normal finger to nose bilaterally. Sensation: Sensation is normal to touch throughout. Reflexes (right/left): 2+ uppers while lowers are 1-2+ at patellar while ankles are 1+ bilaterally. Plantars are mute bilaterally. Some of the workup during this hospital visit consisted of: TSH is 1.920 Vitamin B12: 618 Magnesium is 1.6, sodium is 138. Venous duplex. Negative DVT in right lower extremity - Labs CBC & Chem 7: 11/29/23 05:12 11/29/23 05:12 Labs: Abnormal Lab Results - Last 24 Hours (Table) 11/29/23 11/29/23 Range/Units 05:12 05:12 MCV 101.8 H (80.0-97.0) FL MCH 32.1 H (27.0-32.0) pg MCHC 31.5 L (32.0-37.0) g/dL RDW 15.6 H (11.5-14.5) % Plt Count 131 L (140-440) X 10*3/uL Immature Gran # 0.11 H (0.00-0.04) X 10*3/uL Est GFR (CKD-EPI) 55 L (>=60) Calcium 8.2 L (8.7-10.3) mg/dL Total Protein 5.1 L (6.2-8.2) g/dL Albumin 3.4 L (3.8-4.9) g/dL Assessment and Plan Assessment: This is an 83-year-old gentleman with intermittent diarrhea for the last 6 months with decreased oral intake who was recently diagnosed with colon cancer as well as has pulmonary nodule, lumbar degenerative changes, compression f racture of the L4 vertebra who is having weakness in the lower extremity since June 2023 progressively worsening as well as having numbness in the lowers and it seems it is more on the left but on examination it is more left than the right. Lower extremity weakness predominantly left more than the right with numbness rule out bone metastasis on the thoracic or cervical region. Recent diagnosis of colon cancer with recent pulmonary nodule Lumbar degenerative changes and he was evaluated by orthopedic and recommended conservative management according to the Compression fracture of the L4 History of atrial fibrillation status post ablation on Eliquis Hypertension Plan: Pending MRI of the cervical and thoracic spine with and without. Patient had a recent MRI lumbar spine 08/29/2023 Oncology is consulted Will defer the rest of the medical management to primary and other specialist The plan is discussed with patient and his nurse. Time with Patient: Less than 30
--- NOTE | 2023-11-29 17:55 | P.PN ---
Progress Note - Text Progress Note Date: 11/29/23 Patient seen and evaluated. Family at bedside including , daughter, son. Patient comes in with atrial fibrillation and had been cardioverted. Patient has new diagnosis of recent ascending colon cancer found on colonoscopy. Per patient and family, he has been moderately weak and unable to stand hence his admission as well. Patient has not been eating. Given his current comorbidity and risk, do recommend augment nutrition with 90 to 100 g protein daily. Recommend deferral of surgery at least 3 weeks to build protein reserves and strength for surgery. Benefits and risks of robotic right hemicolectomy described. Per , and patient, they report he is cleared for surgical inter vention by the [employer] operator. Options including immediate surgery during hospitalization reviewed but high risk and may be done with another provider for second opinion. Family members and patient agreed for discharge home with improvement of nutrition and improvement of generalized strength for surgery. Patient will follow-up in the office with additional nutritional counseling and surgical intervention.
--- NOTE | 2023-11-30 08:07 | P.PN ---
Subjective Progress Note Date: 11/29/23 Patient reporting generalized weakness. S/p GENARO with cardioversion Objective - Vital Signs Vital signs: Vital Signs Temp 97.5 F L 11/29/23 15:00 Pulse 68 11/29/23 15:00 Resp 16 11/29/23 15:00 BP 89/58 11/29/23 15:00 Pulse Ox 93 L 11/29/23 15:00 FiO2 Intake & Output 11/28/23 11/29/23 11/29/23 18:59 06:59 18:59 Intake Total 622 720 Output Total 350 650 Balance 622 -350 70 Weight 107.955 kg Intake: IV 200 Oral 422 720 Output: Urine 350 650 Other: Voiding Method Urinal Urinal Urinal # Voids 3 # Bowel Movements 1 - Constitutional General appearance: Present: no acute distress - EENT Eyes: Present: anicteric sclerae, EOMI ENT: Present: hearing grossly normal - Respiratory Details: breathing is even and unlabored - Cardiovascular Details: skin warm and dry - Musculoskeletal Musculoskeletal: Present: generalized weakness - Psychiatric Psychiatric: Present: A&O x's 3 - Labs CBC & Chem 7: 11/29/23 05:12 11/29/23 05:12 Labs: Abnormal Lab Results - Last 24 Hours (Table) 11/29/23 11/29/23 Range/Units 05:12 05:12 MCV 101.8 H (80.0-97.0) FL MCH 32.1 H (27.0-32.0) pg MCHC 31.5 L (32.0-37.0) g/dL RDW 15.6 H (11.5-14.5) % Plt Count 131 L (140-440) X 10*3/uL Immature Gran # 0.11 H (0.00-0.04) X 10*3/uL Est GFR (CKD-EPI) 55 L (>=60) Calcium 8.2 L (8.7-10.3) mg/dL Total Protein 5.1 L (6.2-8.2) g/dL Albumin 3.4 L (3.8-4.9) g/dL Assessment and Plan (1) Colon adenocarcinoma Current Visit: Yes Status: Acute Priority: High Code(s): C18.9 - MALIGNANT NEOPLASM OF COLON, UNSPECIFIED SNOMED Code(s): 714975589 (2) Weakness Current Visit: Yes Status: Acute Priority: High Code(s): R53.1 - WEAKNESS SNOMED Code(s): 11738874 (3) Atrial fibrillation Current Visit: Yes Status: Acute Priority: Medium Code(s): I48.91 - UNSPECIFIED ATRIAL FIBRILLATION SNOMED Code(s): 33451727 Plan: Colon adenocarcinoma: -Recent diagnosis of colon adenocarcinoma -NGS/PDL-1 requested on pathology -CT abdomen pelvis on 11/21/2023 revealed cecal mass measuring up to 2.9 cm. And 1.6 cm lingular pulmonary nodule demonstrated which was relatively stable from p rior CT scan on 04/03/2022. Outpt PET CT ordered to further evaluate -Surgery following, no surgical intervention at this time, plan for outpt followup -Anemia labs ordered. No nutritional deficiencies noted -Clinic f/u upon discharge Discussed diagnosis and POC with patient and spouse. He was agreeable to the same BLE weakness/RLE edema: Reporting progressing BLE weakness, parathesia and RLE edema -RLE doppler negative for DVT -PT/OT consulted -Neurology following. MRI C/T/L spine ordered. Pt was unable to tolerate 2nd part of testing, cervical spine imaging pending -Case management consulted for evaluation for home health services and DME. May need rehab upon d/c pending recommendations from PT A-fib: -S/p GENARO with cardioversion -Cardiology following
[2023-11-30] MEDS: AMIODARONE 200 MG TAB PO SCH (08:44)
[2023-11-30 09:05] LABS: Basophils # (A) 0.04 X 10*3/uL (0.00-0.10); Basophils % (A) 0.6 %; Eosinophils # (A) 0.19 X 10*3/uL (0.04-0.35); Eosinophils % (A) 2.6 %; HCT 47.1 % (39.6-50.0); HGB 14.9 g/dL (13.0-17.0); Lymphocytes # (A) 1.14 X 10*3/uL (0.90-5.00); Lymphocytes % (A) 15.7 %; MCH 31.6 pg (27.0-32.0); MCHC 31.6 g/dL (32.0-37.0); Mean Platelet Volume 10.8 FL (9.5-12.2); Monocytes # (A) 0.63 X 10*3/uL (0.20-1.00); Monocytes % (A) 8.7 %; NRBC Per 100 WBC 0 X 10*3/uL (0.00-0.01); Neutrophils # (A) 5.16 X 10*3/uL (1.80-7.70); Neutrophils % (A) 71.3 %; Platelet Count 134 X 10*3/uL (140-440); RBC 4.71 X 10*6/uL (4.40-5.60); RDW 15.8 % (11.5-14.5); WBC 7.24 X 10*3/uL (4.50-10.00)
[2023-11-30 09:12] LABS: ALT 10 U/L (10-49); AST 16 U/L (14-35); Albumin 3.3 g/dL (3.8-4.9); Albumin/Globulin Ratio 2.06 Ratio (1.60-3.17); Alkaline Phosphatase 119 U/L (41-126); BUN/Creat Ratio 14.92 Ratio (12.00-20.00); Blood Urea Nitrogen 19.4 mg/dL (9.0-27.0); Chloride 104 mmol/L (96-109); Globulin 1.6 g/dL (1.6-3.3); Glucose 90 mg/dL (70-110); Potassium 3.7 mmol/L (3.5-5.5); Sodium 142 mmol/L (135-145); Total Bilirubin 1.2 mg/dL (0.3-1.2); Total Protein 4.9 g/dL (6.2-8.2)
--- NOTE | 2023-11-30 10:33 | P.PN ---
Subjective Progress Note Date: 11/29/23 Nick Vora, is an 83-year-old male who presented to [facility] emergency room with a chief complaint of generalized weakness, patient mostly is complaining of bilateral lower extremity weakness, with inability to stand or walk, he states that his symptoms has developed gradually, he denies any pain in the lower extremities however he states that he feels that his lower extremities are heavy. He was evaluated in the emergency room vital examination on presentation revealed a temperature of 97.5 pulse 92 respiration 18 blood pressure 104/80 pulse ox 92% on room air Laboratory data reveals a white blood count of 6.4 hemoglobin 14.1 platelet count 127 BUN 25 creatinine 1.22 Testing in the emergency room revealed EKG revealed atrial fibrillation with a heart rate of 107, chest x-ray revealed pulmonary vascular prominence. Patient was admitted to medical floor for further evaluation and treatment On 11/26/2023 patient is alert and oriented x 3. Still complaining of generalize d weakness awaiting neurology and oncology input. Current vital signs temp 97.6, heart rate 69, respiratory rate 16, blood pressure 107/70 with a pulse ox of 97% on room air. Patient denies chest pain or shortness of breath. Patient denies nausea vomiting or diarrhea. Patient denies any urinary burning or frequency. On 11/27/2023 patient was seen and examined on the medical floor he is alert and oriented x 3 in no apparent distress he is still complaining of severe weakness with inability to stand or walk otherwise he denies any complaints at this time there is no fever or chills no headache or dizziness no chest pain no shortness of breath no cough no nausea or vomiting no abdominal pain no diarrhea and no urinary symptoms. Echocardiogram results reviewed, patient has severe global h ypokinesia, cardiology consultation requested, we are reviewing input from neurology and oncology will continue to follow. On 11/28/2023 patient was seen and examined on the medical floor he is alert and oriented x 3 in no apparent distress he reports some improvement in his fatigue and shortness of breath otherwise he denies any complaints there is no fever or chills no headache or dizziness no chest pain no nausea or vomiting no abdominal pain no diarrhea and no urinary symptoms. Patient underwent GENARO and cardioversion. patient is requesting that any treatment related to his colon cancer will be done during this admission. A consultation for gastroenterology and general surgery was initiated. On 11/29/2023 patient is alert and oriented x 3. Per GI services General Surgery will follow patient. Awaiting further recommendations from surgical services. Patient denies any chest pain or shortness of breath. Patient denies nausea vomiting or diarrhea. Patient denies any urinary burning or frequency. Objective - Vital Signs Vital signs: Vital Signs Temp 98.2 F 11/29/23 02:00 Pulse 94 11/29/23 02:00 Resp 14 11/29/23 02:00 BP 109/68 11/29/23 02:00 Pulse Ox 93 L 11/29/23 02:00 FiO2 Intake & Output 11/28/23 11/29/23 11/29/23 18:59 06:59 18:59 Intake Total 622 Output Total 350 Balance 622 -350 Weight 107.955 kg Intake: IV 200 Oral 422 Output: Urine 350 Other: Voiding Method Urinal Urinal # Voids 3 # Bowel Movements 1 - Exam In general patient is alert and oriented x 3 in no distress HEENT head normocephalic and atraumatic Neck is supple no JVD no goiter no lymphadenopathy no carotid bruit Chest examination is clear to auscultation no crackles no wheezing Cardiac exam reveals regular heart sounds S1 and S2 no gallops no murmurs Abdomen is soft nontender no organomegaly with normal bowel sounds Extremity exam reveals no edema no cyanosis or clubbing Neurological examination reveals no gross focal deficits - Labs CBC & Chem 7: 11/30/23 05:18 11/30/23 05:18 Assessment and Plan Plan: Bilateral lower extremity weakness, with inability to stand or walk Recent history of colonoscopy with polypectomy on 11/13/2023, by Dr. Yu with pathology positive for invasive colonic adenocarcinoma Underlying history of atrial fibrillation maintained on Eliquis Remote history of CVA Underlying history of hypertension Underlying history of hyperlipidemia Underlying history of osteoarthritis Underlying history of benign prostatic hypertrophy Underlying history of difficulty hearing At this time patient was seen and examined, chart was reviewed Home medications reviewed and reordered Neurology consultation was requested in regard to lower extremity weakness Oncology consultation was requested in regard to colon Adenocarcinoma Will follow closely prognosis is guarded
--- NOTE | 2023-11-30 11:51 | P.PN ---
Subjective Progress Note Date: 11/30/23 HISTORY OF PRESENT ILLNESS: This is a 83-year-old male with a past medical history significant for paro xysmal atrial fibrillation with previous cardioversion, mild CAD, and former nicotine dependence. Patient follows in the office with Dr. Alvares. We have been asked to see the patient in consultation for congestive heart failure. Patient examined at the bedside. Patient presented to the hospital with a chief complaint of worsening lower extremity weakness. This has been persistent for at least the last 6 months but patient states it has been getting worse. He denies any complaints of chest pain or pressure. He denies any shortness of breath at the time of examination but does report recently he has noticed he has been getting more short of breath. He states that he can feel palpitations occasionally when he moves from [id number] in the bed. At the time of examination he denies any palpitations. It is noted that the patient was in atrial fibrillation upon admission to the hospital. The last time he was seen in the cardiology office, patient was maintaining sinus mechanism at that time. DIAGNOSTICS: - EKG reveals atrial fibrillation with heart rate 107. No signs of acute i schemia. - Chest xray pulmonary vascular prominence - Laboratory data: WBC 6.4. Hemoglobin 14.1. Platelet count 127. Sodium 142. Potassium 3.6. BUN 20. Creatinine 1.4. Magnesium 1.6. Troponin negative x 1. - Current home cardiac medications include Eliquis 5 mg twice a day, Lasix 40 mg daily, metoprolol tartrate 25 mg twice a day - Echocardiogram obtained this admission reveals ejection fraction 25 to 30%, global left ventricular hypokinesis, moderate to severe pulmonary hypertension, mild mitral regurgitation, moderate tricuspid regurgitation - Lower extremity Doppler: Negative for DVT of right lower extremity - Cardiac catheterization history: 2013 revealing minimal CAD - Patient underwent Lexiscan stress test in October 2019 revealing small fixed inferior wall defect and mild global hypokinesis consistent with mild nonischemic cardiomyopathy. No evidence of stress-induced ischemia. 11/28/2023 Patient examined this morning at the bedside. Patient currently denies chest p ain or pressure. At the time of examination, he denies any shortness of breath. Patient remains in atrial fibrillation with controlled ventricular rates. Blood pressure stable. 11/29/2023 Patient examined this morning the bedside. Patient underwent GENARO and cardioversion yesterday with Dr. Alvares. He is maintaining sinus mechanism this morning. Patient currently denies chest pain or pressure. He denies shortness of breath. He continues to report weakness today. He states overall he is f eeling better after his cardioversion yesterday. November 30, 2023 Patient is seen and examined at bedside this a.m. He is maintaining normal sinus rhythm. He denies having any active chest pain chest pressure. Denies any post GENARO complications. PHYSICAL EXAM: VITAL SIGNS: Reviewed. GENERAL: Well-developed in no acute distress. HEENT: Head is normocephalic. Pupils are equal, round. Sclerae anicteric. Mucous membranes of the mouth are moist. Neck supple. No JVD or thyromegaly LUNGS: Respirations even and unlabored. Lungs essentially clear to auscultation bilaterally. HEART: Regular rate and rhythm. S1 and S2 heard. Systolic murmur noted. ABDOMEN: Soft. Nondistended. Nontender. EXTREMITIES: Normal range of motion. No clubbing or cyanosis. Peripheral pulses intact. No lower extremity edema NEUROLOGIC: Awake and alert. Oriented x 3. ASSESSMENT: Lower extremity weakness x 6 months, worsening per patient Status post colonoscopy 11/13/2023 revealing cecal mass, pathology positive for invasive adenocarcinoma Pulmonary nodule Shortness of breath, likely secondary to atrial fibrillation, no clinical evidence for acute congestive heart failure Status post GENARO and cardioversion, 11/28/2023 Cardiomyopathy, nonischemic likely from being back in atrial fibrillation, EF 25 to 30%, new from previous echo performed in 2019 revealing ejection fraction 55% History of nonischemic cardiomyopathy in 2019 when patient was in atrial fibrillation Paroxysmal atrial fibrillation History of GENARO and cardioversion History of A-fib ablation, 2018 Moderate to severe pulmonary hypertension Mild coronary artery disease, per cardiac catheterization 2013 Former nicotine dependence PLAN: Continue current cardiac medications Continue Entresto 24-26 mg twice a day Reduce amiodarone to 200 mg twice a day. Reduce amiodarone further to 200 mg daily starting 12/06/2023. General Surgery has been consulted due to patient's recent diagnosis of colon cancer. At this time patient is cleared from cardiovascular standpoint. Cardiology team will sign off. Please reconsult us in case of any question. Objective - Vital Signs Vital signs: Vital Signs Temp 97.6 F 11/30/23 07:00 Pulse 89 11/30/23 07:00 Resp 16 11/30/23 07:00 BP 95/62 11/30/23 07:00 Pulse Ox 92 L 11/30/23 07:00 FiO2 Intake & Output 11/29/23 11/30/23 11/30/23 18:59 06:59 18:59 Intake Total 960 360 Output Total 650 600 Balance 310 -600 360 Intake: Oral 960 360 Output: Urine 650 600 Other: Voiding Method Urinal Urinal - Labs CBC & Chem 7: 11/30/23 05:18 11/30/23 05:18 Labs: Abnormal Lab Results - Last 24 Hours (Table) 11/30/23 11/30/23 Range/Units 05:18 05:18 MCV 100.0 H (80.0-97.0) FL MCHC 31.6 L (32.0-37.0) g/dL RDW 15.8 H (11.5-14.5) % Plt Count 134 L (140-440) X 10*3/uL Immature Gran # 0.08 H (0.00-0.04) X 10*3/uL Est GFR (CKD-EPI) 55 L (>=60)
--- NOTE | 2023-11-30 13:16 | P.PN ---
Subjective Progress Note Date: 11/30/23 Nick Vora, is an 83-year-old male who presented to [facility] emergency room with a chief complaint of generalized weakness, patient mostly is complaining of bilateral lower extremity weakness, with inability to stand or walk, he states that his symptoms has developed gradually, he denies any pain in the lower extremities however he states that he feels that his lower extremities are heavy. He was evaluated in the emergency room vital examination on presentation revealed a temperature of 97.5 pulse 92 respiration 18 blood pressure 104/80 pulse ox 92% on room air Laboratory data reveals a white blood count of 6.4 hemoglobin 14.1 platelet count 127 BUN 25 creatinine 1.22 Testing in the emergency room revealed EKG revealed atrial fibrillation with a heart rate of 107, chest x-ray revealed pulmonary vascular prominence. Patient was admitted to medical floor for further evaluation and treatment On 11/26/2023 patient is alert and oriented x 3. Still complaining of generalize d weakness awaiting neurology and oncology input. Current vital signs temp 97.6, heart rate 69, respiratory rate 16, blood pressure 107/70 with a pulse ox of 97% on room air. Patient denies chest pain or shortness of breath. Patient denies nausea vomiting or diarrhea. Patient denies any urinary burning or frequency. On 11/27/2023 patient was seen and examined on the medical floor he is alert and oriented x 3 in no apparent distress he is still complaining of severe weakness with inability to stand or walk otherwise he denies any complaints at this time there is no fever or chills no headache or dizziness no chest pain no shortness of breath no cough no nausea or vomiting no abdominal pain no diarrhea and no urinary symptoms. Echocardiogram results reviewed, patient has severe global h ypokinesia, cardiology consultation requested, we are reviewing input from neurology and oncology will continue to follow. On 11/28/2023 patient was seen and examined on the medical floor he is alert and oriented x 3 in no apparent distress he reports some improvement in his fatigue and shortness of breath otherwise he denies any complaints there is no fever or chills no headache or dizziness no chest pain no nausea or vomiting no abdominal pain no diarrhea and no urinary symptoms. Patient underwent GENARO and cardioversion. patient is requesting that any treatment related to his colon cancer will be done during this admission. A consultation for gastroenterology and general surgery was initiated. On 11/29/2023 patient is alert and oriented x 3. Per GI services General Surgery will follow patient. Awaiting further recommendations from surgical services. Patient denies any chest pain or shortness of breath. Patient denies nausea vomiting or diarrhea. Patient denies any urinary burning or frequency. On 11/30/2023 patient was seen and examined on the medical floor he is alert and oriented x 3 in no apparent distress there is no fever or chills no headache or dizziness no chest pain no shortness of breath no cough no nausea or vomiting no abdominal pain no diarrhea and no urinary symptoms, input from general surgery and cardiology reviewed, plan to continue with same medications at this time, plan for transfer to rehab on Saturday, possible readmission for surgery for colon cancer in the next 2 to 3 weeks. Objective - Vital Signs Vital signs: Vital Signs Temp 97.6 F 11/30/23 07:00 Pulse 89 11/30/23 07:00 Resp 16 11/30/23 07:00 BP 95/62 11/30/23 07:00 Pulse Ox 92 L 11/30/23 07:00 FiO2 Intake & Output 11/29/23 11/30/23 11/30/23 18:59 06:59 18:59 Intake Total 960 360 Output Total 650 600 Balance 310 -600 360 Intake: Oral 960 360 Output: Urine 650 600 Other: Voiding Method Urinal Urinal - Exam In general patient is alert and oriented x 3 in no distress HEENT head normocephalic and atraumatic Neck is supple no JVD no goiter no lymphadenopathy no carotid bruit Chest examination is clear to auscultation no crackles no wheezing Cardiac exam reveals regular heart sounds S1 and S2 no gallops no murmurs Abdomen is soft nontender no organomegaly with normal bowel sounds Extremity exam reveals no edema no cyanosis or clubbing Neurological examination reveals no gross focal deficits - Labs CBC & Chem 7: 11/30/23 05:18 11/30/23 05:18 Labs: Abnormal Lab Results - Last 24 Hours (Table) 11/30/23 11/30/23 Range/Units 05:18 05:18 MCV 100.0 H (80.0-97.0) FL MCHC 31.6 L (32.0-37.0) g/dL RDW 15.8 H (11.5-14.5) % Plt Count 134 L (140-440) X 10*3/uL Immature Gran # 0.08 H (0.00-0.04) X 10*3/uL Est GFR (CKD-EPI) 55 L (>=60) Assessment and Plan Plan: Bilateral lower extremity weakness, with inability to stand or walk Recent history of colonoscopy with polypectomy on 11/13/2023, by Dr. Yu with pathology positive for invasive colonic adenocarcinoma Underlying history of atrial fibrillation maintained on Eliquis Remote history of CVA Underlying history of hypertension Underlying history of hyperlipidemia Underlying history of osteoarthritis Underlying history of benign prostatic hypertrophy Underlying history of difficulty hearing At this time patient was seen and examined, chart was reviewed Home medications reviewed and reordered Neurology consultation was requested in regard to lower extremity weakness Oncology consultation was requested in regard to colon Adenocarcinoma Will follow closely prognosis is guarded
--- NOTE | 2023-11-30 14:56 | P.PN ---
Subjective Progress Note Date: 11/30/23 CHIEF COMPLAINT: Colon cancer HISTORY OF PRESENT ILLNESS: The patient is a 83-year-old male admitted for atrial fibrillation and new diagnosis of colon cancer. He denies abdominal pain. He does report generalized weakness and is now being assessed for rehab upon discharge. He feels better about going to rehab and preparation prior to surgery. He reports difficulty eating any textured food as he is edentulous and do not have dentures. Family reported prior that he barely eats and is under 30 grams protein daily at best. ROS: No reports of nausea and vomiting. No fevers or chills. No new chest pain. No productive sputum PHYSICAL EXAM: VITAL SIGNS: Reviewed CONSTITUTIONAL: Well developed and in no acute distress. EYES: Conjuctivae without sclera icterus. Extraocular movements grossly intact. HEAD, EARS, NOSE, THROAT: Moist buccal mucosa. Head is atraumatic, normocephalic. Hears conversational speech. No nasal drainage. RESPIRATORY: Non-labored respirations and equal bilateral excursions. CARDIOVASCULAR: Palpable 2+ radial pulses. ABDOMEN: Nontender MUSCULOSKELETAL: No gross deformity of the lower extremities noted. No clubbing. No cyanosis. SKIN: Good skin turgor. Well perfused. NEUROLOGIC: Cranial nerves II through XII grossly intact. No focal or lateralizing signs. PSYCH: Appropriate affect. Alert and oriented to person, place and time. CLINICAL LABS: Reviewed. Hgb and WBC normal. ASSESSMENT: 1. Adenocarcinioma ascending colon 2. Cirrhosis of the liver 3. Atrial fibrillation with rapid ventricular response 4. Generalized debility and weakness. 5. Moderate protein malnutrition. PLAN: 1. Agree with rehab in the interim. He is scheduled for outpatient follow up. 2. Will need moderate protein and calorie adjustment to gain strength for any surgical procedures 3. Thank cardiology service for clearance for colectomy. Patient is high risk for complications at his current presentation. 4. He is edentulous and will adjust diet to dysphagia ground diet. 5. Adjust diet to reflect at least 100 to 120 gram protein daily. 6. Daily physical therapy advised. Objective - Vital Signs Vital signs: Vital Signs Temp 97.6 F 11/30/23 07:00 Pulse 89 11/30/23 07:00 Resp 16 11/30/23 07:00 BP 95/62 11/30/23 07:00 Pulse Ox 92 L 11/30/23 07:00 FiO2 Intake & Output 11/29/23 11/30/23 11/30/23 18:59 06:59 18:59 Intake Total 960 720 Output Total 650 600 830 Balance 310 -600 -110 Weight 107.955 kg Intake: Oral 960 720 Output: Urine 650 600 830 Other: Voiding Method Urinal Urinal - Labs CBC & Chem 7: 11/30/23 05:18 11/30/23 05:18 Labs: Abnormal Lab Results - Last 24 Hours (Table) 11/30/23 11/30/23 Range/Units 05:18 05:18 MCV 100.0 H (80.0-97.0) FL MCHC 31.6 L (32.0-37.0) g/dL RDW 15.8 H (11.5-14.5) % Plt Count 134 L (140-440) X 10*3/uL Immature Gran # 0.08 H (0.00-0.04) X 10*3/uL Est GFR (CKD-EPI) 55 L (>=60)
--- NOTE | 2023-12-01 09:51 | P.PN ---
Subjective Progress Note Date: 12/01/23 Nick Vora, is an 83-year-old male who presented to [facility] emergency room with a chief complaint of generalized weakness, patient mostly is complaining of bilateral lower extremity weakness, with inability to stand or walk, he states that his symptoms has developed gradually, he denies any pain in the lower extremities however he states that he feels that his lower extremities are heavy. He was evaluated in the emergency room vital examination on presentation revealed a temperature of 97.5 pulse 92 respiration 18 blood pressure 104/80 pulse ox 92% on room air Laboratory data reveals a white blood count of 6.4 hemoglobin 14.1 platelet count 127 BUN 25 creatinine 1.22 Testing in the emergency room revealed EKG revealed atrial fibrillation with a heart rate of 107, chest x-ray revealed pulmonary vascular prominence. Patient was admitted to medical floor for further evaluation and treatment On 11/26/2023 patient is alert and oriented x 3. Still complaining of generalize d weakness awaiting neurology and oncology input. Current vital signs temp 97.6, heart rate 69, respiratory rate 16, blood pressure 107/70 with a pulse ox of 97% on room air. Patient denies chest pain or shortness of breath. Patient denies nausea vomiting or diarrhea. Patient denies any urinary burning or frequency. On 11/27/2023 patient was seen and examined on the medical floor he is alert and oriented x 3 in no apparent distress he is still complaining of severe weakness with inability to stand or walk otherwise he denies any complaints at this time there is no fever or chills no headache or dizziness no chest pain no shortness of breath no cough no nausea or vomiting no abdominal pain no diarrhea and no urinary symptoms. Echocardiogram results reviewed, patient has severe global h ypokinesia, cardiology consultation requested, we are reviewing input from neurology and oncology will continue to follow. On 11/28/2023 patient was seen and examined on the medical floor he is alert and oriented x 3 in no apparent distress he reports some improvement in his fatigue and shortness of breath otherwise he denies any complaints there is no fever or chills no headache or dizziness no chest pain no nausea or vomiting no abdominal pain no diarrhea and no urinary symptoms. Patient underwent GENARO and cardioversion. patient is requesting that any treatment related to his colon cancer will be done during this admission. A consultation for gastroenterology and general surgery was initiated. On 11/29/2023 patient is alert and oriented x 3. Per GI services General Surgery will follow patient. Awaiting further recommendations from surgical services. Patient denies any chest pain or shortness of breath. Patient denies nausea vomiting or diarrhea. Patient denies any urinary burning or frequency. On 11/30/2023 patient was seen and examined on the medical floor he is alert and oriented x 3 in no apparent distress there is no fever or chills no headache or dizziness no chest pain no shortness of breath no cough no nausea or vomiting no abdominal pain no diarrhea and no urinary symptoms, input from general surgery and cardiology reviewed, plan to continue with same medications at this time, plan for transfer to rehab on Saturday, possible readmission for surgery for colon cancer in the next 2 to 3 weeks. On 12/01/2023 patient is alert and oriented x 3. Discharge planning to rehab hopefully tomorrow. With follow-up outpatient for surgical intervention. Patient denies chest pain or shortness of breath. Patient denies nausea vomiting or diarrhea. Patient denies any urinary burning or frequency Objective - Vital Signs Vital signs: Vital Signs Temp 97.6 F 12/01/23 07:00 Pulse 104 H 12/01/23 07:00 Resp 16 12/01/23 07:00 BP 108/72 12/01/23 07:00 Pulse Ox 98 12/01/23 07:00 FiO2 Intake & Output 11/30/23 12/01/23 12/01/23 18:59 06:59 18:59 Intake Total 838 236 Output Total 1130 75 260 Balance -292 -24 Weight 107.955 kg Intake: Oral 838 236 Output: Urine 1130 75 260 Other: Voiding Method Urinal # Voids 2 - Exam In general patient is alert and oriented x 3 in no distress HEENT head normocephalic and atraumatic Neck is supple no JVD no goiter no lymphadenopathy no carotid bruit Chest examination is clear to auscultation no crackles no wheezing Cardiac exam reveals regular heart sounds S1 and S2 no gallops no murmurs Abdomen is soft nontender no organomegaly with normal bowel sounds Extremity exam reveals no edema no cyanosis or clubbing Neurological examination reveals no gross focal deficits - Labs CBC & Chem 7: 11/30/23 05:18 11/30/23 05:18 Assessment and Plan Plan: Bilateral lower extremity weakness, with inability to stand or walk Recent history of colonoscopy with polypectomy on 11/13/2023, by Dr. Yu with pathology positive for invasive colonic adenocarcinoma Underlying history of atrial fibrillation maintained on Eliquis Remote history of CVA Underlying history of hypertension Underlying history of hyperlipidemia Underlying history of osteoarthritis Underlying history of benign prostatic hypertrophy Underlying history of difficulty hearing At this time patient was seen and examined, chart was reviewed Home medications reviewed and reordered Neurology consultation was requested in regard to lower extremity weakness Oncology consultation was requested in regard to colon Adenocarcinoma Will follow closely prognosis is guarded
--- NOTE | 2023-12-01 14:37 | P.PN ---
Subjective Progress Note Date: 12/01/23 Following up with the patient and he seems according to the nurse he could not tolerate MRI since he could not lie still. Objective - Vital Signs Vital signs: Vital Signs Temp 97.6 F 12/01/23 07:00 Pulse 104 H 12/01/23 07:00 Resp 16 12/01/23 07:00 BP 108/72 12/01/23 07:00 Pulse Ox 98 12/01/23 07:00 FiO2 Intake & Output 11/30/23 12/01/23 12/01/23 18:59 06:59 18:59 Intake Total 838 236 Output Total 1130 75 935 Balance -292 -75 -699 Weight 107.955 kg Intake: Oral 838 236 Output: Urine 1130 75 935 Other: Voiding Method Urinal # Voids 2 - Exam GENERAL: The patient is lying in bed and is not in acute distress. NEUROLOGICAL: Sleeping. Some of the workup during this hospital visit consisted of: TSH is 1.920 Vitamin B12: 618 Magnesium is 1.6, sodium is 138. Venous duplex. Negative DVT in right lower extremity Patient had MRI of the cervical spine and pending report by from the limitation of the cervical spine I do not see cervical myelopathy or severe stenosis. - Labs CBC & Chem 7: 11/30/23 05:18 11/30/23 05:18 Assessment and Plan Assessment: This is an 83-year-old gentleman with intermittent diarrhea for the last 6 months with decreased oral intake who was recently diagnosed with colon cancer as well as has pulmonary nodule, lumbar degenerative changes, compression fracture of the L4 vertebra who is having weakness in the lower extremity since June 2023 progressively worsening as well as having numbness in the lowers and it seems it is more on the left but on examination it is more left than the right. Lower extremity weakness predominantly left more than the right with numbness rule out bone metastasis on the thoracic or cervical region. Recent diagnosis of colon cancer with recent pulmonary nodule Lumbar degenerative changes and he was evaluated by orthopedic and recommended conservative management according to the Compression fracture of the L4 History of atrial fibrillation status post ablation on Eliquis Hypertension Plan: Patient could not tolerate the MRI but had limited the MRI of the cervical spine and from the limitation I do not see any cervical myelopathy or severe stenosis. Will wait for official report. Since the patient could not handle MRI I will get CT thoracic. Patient had a recent MRI lumbar spine 08/29/2023 Oncology is consulted Will defer the rest of the medical management to primary and other specialist The plan is discussed with his nurse. Dr. Decker will resume neurology service tomorrow A.M. Time with Patient: Less than 30
--- NOTE | 2023-12-01 16:58 | P.PN ---
Subjective Progress Note Date: 12/01/23 CHIEF COMPLAINT: Colon cancer HISTORY OF PRESENT ILLNESS: The patient is a 83-year-old male admitted for atrial fibrillation and new diagnosis of colon cancer. His is at bedside and is surprised in how well he is doing after changes to his diet and regimen. Patient is placed on high protein diet to improve his global nutrition and he reports he is feeling much better. ROS: No reports of nausea and vomiting. No fevers or chills. No new chest pain. No productive sputum PHYSICAL EXAM: VITAL SIGNS: Reviewed CONSTITUTIONAL: Well developed and in no acute distress. EYES: Conjuctivae without sclera icterus. Extraocular movements grossly intact. HEAD, EARS, NOSE, THROAT: Moist buccal mucosa. Head is atraumatic, normocephalic. Hears conversational speech. No nasal drainage. RESPIRATORY: Non-labored respirations and equal bilateral excursions. CARDIOVASCULAR: Palpable 2+ radial pulses. ABDOMEN: Nontender MUSCULOSKELETAL: No gross deformity of the lower extremities noted. No c lubbing. No cyanosis. SKIN: Good skin turgor. Well perfused. NEUROLOGIC: Cranial nerves II through XII grossly intact. No focal or lateralizing signs. PSYCH: Appropriate affect. Alert and oriented to person, place and time. CLINICAL LABS: Reviewed. Hgb and WBC normal. ASSESSMENT: 1. Adenocarcinioma ascending colon 2. Cirrhosis of the liver 3. Atrial fibrillation with rapid ventricular response 4. Generalized debility and weakness. 5. Moderate protein malnutrition. PLAN: 1. Agree with rehab prior to return to home. 2. Continue high protein diet, 90 to 100 grams daily, ground dysphagia II diet following transfer to rehab 3. Do recommend patient discharge to home after rehab for overall general well- being. 4. Close follow up as outpatient described to patient and who agreed with plan of care. Objective - Vital Signs Vital signs: Vital Signs Temp 97.7 F 12/01/23 15:00 Pulse 98 12/01/23 15:00 Resp 16 12/01/23 15:00 BP 89/59 12/01/23 15:00 Pulse Ox 94 L 12/01/23 15:00 FiO2 Intake & Output 11/30/23 12/01/23 12/01/23 18:59 06:59 18:59 Intake Total 838 594 Output Total 1130 75 1085 Balance -292 -75 -491 Weight 107.955 kg Intake: Oral 838 594 Output: Urine 1130 75 1085 Other: Voiding Method Urinal # Voids 2 - Labs CBC & Chem 7: 11/30/23 05:18 11/30/23 05:18
[2023-12-01] MEDS: DOCUSATE 100 MG CAP PO SCH (20:08)
[2023-12-02 08:45] LABS: ALT 8 U/L (10-49); AST 18 U/L (14-35); Albumin 3.2 g/dL (3.8-4.9); Albumin/Globulin Ratio 2.13 Ratio (1.60-3.17); Alkaline Phosphatase 109 U/L (41-126); BUN/Creat Ratio 18.46 Ratio (12.00-20.00); Basophils # (A) 0.03 X 10*3/uL (0.00-0.10); Basophils % (A) 0.4 %; Calcium 8.5 mg/dL (8.7-10.3); Carbon Dioxide 29.2 mmol/L (21.6-31.8); Chloride 102 mmol/L (96-109); Eosinophils # (A) 0.16 X 10*3/uL (0.04-0.35); Eosinophils % (A) 2.4 %; Globulin 1.5 g/dL (1.6-3.3); Glucose 91 mg/dL (70-110); HCT 47.5 % (39.6-50.0); HGB 15.1 g/dL (13.0-17.0); Lymphocytes # (A) 1.41 X 10*3/uL (0.90-5.00); MCH 31.8 pg (27.0-32.0); MCHC 31.8 g/dL (32.0-37.0); Mean Platelet Volume 11.5 FL (9.5-12.2); Monocytes # (A) 0.58 X 10*3/uL (0.20-1.00); Monocytes % (A) 8.6 %; NRBC Per 100 WBC 0 X 10*3/uL (0.00-0.01); Neutrophils # (A) 4.46 X 10*3/uL (1.80-7.70); Neutrophils % (A) 66.4 %; Platelet Count 113 X 10*3/uL (140-440); RBC 4.75 X 10*6/uL (4.40-5.60); RDW 15.4 % (11.5-14.5); Sodium 140 mmol/L (135-145); Total Protein 4.7 g/dL (6.2-8.2); WBC 6.72 X 10*3/uL (4.50-10.00)
--- NOTE | 2023-12-02 09:49 | CT ---
EXAMINATION TYPE: CT thor lumbar spine wo/w con CT DLP: 4886.3 mGycm, Automated exposure control for dose reduction was used. DATE OF EXAM: 12/02/2023 9:35 AM CLINICAL INDICATION: Male, 83 years old with history of left sided weakness. Concern for mets; left side weakness and pain COMPARISON: None TECHNIQUE: Axial images of the thoracic and lumbar spine were obtained without contrast. Coronal and sagittal reformats were performed. CT Contrast: Contrast used:80 mL of Isovue 300 with IV Contrast, none. Oral contrast used: none. FINDINGS: No evidence for compression deformity within the thoracic spine. Multilevel bridging syndesmophytes o f the anterior longitudinal ligament. Neural foramen are patent within the thoracic spine. No evidenc e for significant spinal canal stenosis of the thoracic spine. In the lumbar spine there is least moderate to severe spinal canal stenosis at L3 secondary to compre ssion deformity with greater than 50% height loss and some mild retropulsion. There is at least mild to moderate bilateral neural foraminal stenosis at this level. Series 6 image 138 Moderate to severe degeneration changes throughout spine with disc osteophyte complexes, postsurgical change the L4 vertebral body with 25-50% height loss. There is associated moderate to severe spinal canal stenosis at this level. Series 6 image 147 The remainder of the lumbar levels are patent. There is facet joint arthropathy with at least mild ne ural foraminal stenosis throughout the remainder of the lumbar spine. Post contrast imaging does not demonstrate enhancing mass or organizing fluid collection. Other: Centrilobular emphysema changes seen throughout the lungs. Bilateral nonobstructing subcentime ter renal calculi. IMPRESSION: 1. Compression deformity of L3 vertebral body with at least greater than 50% height loss centrally w ith moderate to severe spinal canal stenosis. There is at least [id number] neural foraminal claudy nosis at this level.3. Correlate with MRI to evaluate for bony edema. 2. Moderate to severe spinal canal stenosis at L4. 3. Moderate to severe degeneration changes spine. 4. Postsurgical changes L4 vertebral body with vertebroplasty cement. 5. Moderate to severe emphysema. 6. Diffuse idiopathic skeletal hyperostosis. 7. Bilateral nonobstructing renal calculi. [facility], , 12/02/2023 9:47 AM
--- NOTE | 2023-12-02 11:27 | P.PN ---
Subjective Progress Note Date: 12/02/23 CHIEF COMPLAINT: Colon cancer HISTORY OF PRESENT ILLNESS: The patient is a 83-year-old male admitted for atrial fibrillation and ascending colon cancer. Patient is being valuated by additional services and consultants regarding other morbidities. Patient reports feeling stronger after adjusting his diet to a high-protein diet. Patient seen at bedside with oncology team. Patient eager to go to rehab then home for strength training prior to surgery. Additionally, patient had a large bowel movement upon discussion with his nurse. ROS: No reports of nausea and vomiting. No fevers or chills. No new chest pain. No productive sputum PHYSICAL EXAM: VITAL SIGNS: Reviewed CONSTITUTIONAL: Well developed and in no acute distress. EYES: Conjuctivae without sclera icterus. Extraocular movements grossly intact. HEAD, EARS, NOSE, THROAT: Moist buccal mucosa. Head is atraumatic, normocephali c. Hears conversational speech. No nasal drainage. He is edentulous. RESPIRATORY: Non-labored respirations and equal bilateral excursions. CARDIOVASCULAR: Palpable 2+ radial pulses. ABDOMEN: Nontender MUSCULOSKELETAL: No gross deformity of the lower extremities noted. No clubbing. No cyanosis. SKIN: Good skin turgor. Well perfused. NEUROLOGIC: Cranial nerves II through XII grossly intact. No focal or lateralizing signs. PSYCH: Appropriate affect. Alert and oriented to person, place and time. CLINICAL LABS: Reviewed. Hemoglobin increased from 14.5-15.1. ASSESSMENT: 1. Adenocarcinioma ascending colon 2. Cirrhosis of the liver 3. Atrial fibrillation with rapid ventricular response 4. Generalized debility and weakness. 5. Moderate protein malnutrition. PLAN: 1. I discussed with the patient's surgical dates for admission January 01 for endoscopic tattooing of colon mass prior to robotic colectomy. 2. Colectomy anticipated scheduled January 02 3. Recommend patient to have pneumonia/COVID vaccinations prior to surgery to prevent illness 4. Agree with rehab prior to transition to home 5. Goal protein intake at least 100 g daily for optimal recovery and rehabili tation 6. Continue dysphagia 2/ground diet high-protein high-calorie Objective - Vital Signs Vital signs: Vital Signs Temp 97.9 F 12/02/23 08:00 Pulse 84 12/02/23 08:00 Resp 17 12/02/23 08:00 BP 105/65 12/02/23 08:00 Pulse Ox 97 12/02/23 08:00 FiO2 Intake & Output 12/01/23 12/02/23 12/02/23 18:59 06:59 18:59 Intake Total 594 118 Output Total 1085 200 Balance -491 -200 118 Intake: Oral 594 118 Output: Urine 1085 200 Other: Voiding Method Urinal # Voids 1 # Bowel Movements 1 - Labs CBC & Chem 7: 12/02/23 04:47 12/02/23 04:47 Labs: Abnormal Lab Results - Last 24 Hours (Table) 12/02/23 12/02/23 Range/Units 04:47 04:47 MCV 100.0 H (80.0-97.0) FL MCHC 31.8 L (32.0-37.0) g/dL RDW 15.4 H (11.5-14.5) % Plt Count 113 L (140-440) X 10*3/uL Immature Gran # 0.08 H (0.00-0.04) X 10*3/uL Est GFR (CKD-EPI) 55 L (>=60) Calcium 8.5 L (8.7-10.3) mg/dL ALT 8 L (10-49) U/L Total Protein 4.7 L (6.2-8.2) g/dL Albumin 3.2 L (3.8-4.9) g/dL Globulin 1.5 L (1.6-3.3) g/dL
--- NOTE | 2023-12-02 12:33 | P.CNOR ---
History of Present Illness - [facility] Consult date: 12/02/23 Consult reason: other (Lower extremity weakness worse on the right than left, new L3 fracture) History of present illness: Patient is very pleasant 83-year-old male who is seen and examined today at bedside. He says that he has been having weakness at his lower extremities over the past several months or even years. He says it has been getting worse for him to some degree and he is having great difficulty ambulating getting around. He says he has been having some overall feelings of malaise and generalized weakness as well. He says he is not having specific back pain. He denies any specific trauma to his back though he did have a stumble somewhat recently. He had his low back reevaluated in August of this year with Dr. Broussard who did evaluation for his low back and for his chronic weakness and felt that it was not candidate for surgery. The patient continued rehab and physical therapy but does not feel like he has been making improvement with his strength. The patient has also been recently diagnosed with colon cancer. He is continuing his workup and evaluation and treatment for this. He denies any chest pain or shortness of breath. He does not feel he can get up on his own. He needs significant assistance with mobilization and transfers. Patient lives at home with his and his son. Review of Systems Chronic weakness at the bilateral lower extremities worse on the right than the left. He is unable to ambulate on his own. He is having more more difficulty with any sort of transfers on his own. Denies any pain in his upper extremities denies any neck pain chest pain or shortness of breath. He does not feel he has significant back pain. He is not having troubles with bowel bladder function Past Medical History Past Medical History: Atrial Fibrillation, CVA/TIA, GERD/Reflux, Hearing Disorder / Deafness, Hyperlipidemia, Osteoarthritis (OA), Prostate Disorder Additional Past Medical History / Comment(s): Tinnitus, Hx kidney stones, BPH, LUNG SCARRING. 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 History of Any Multi-Drug Resistant Organisms: None Reported Past Surgical History: Adenoidectomy, Ear Surgery, Heart Catheterization, Joint Replacement, Tonsillectomy Additional Past Surgical History / Comment(s): Oral surgery, diana knee replacements, partial thyroidectomy, diana cataracts. EGD, COLONOSCOPY cardioversion Past Anesthesia/Blood Transfusion Reactions: No Reported Reaction Past Psychological History: Anxiety Smoking Status: Former smoker Past Alcohol Use History: None Reported Additional Past Alcohol Use History / Comment(s): quit smoking 1986, started smoking age 17, 3 PPD. Pt states daily drinking when younger, average 6 beers or 1 pint Past Drug Use History: None Reported - Past Family History Mother Family Medical History: No Reported History Additional Family Medical History / Comment(s): . Medications and Allergies Home Medications Medication Instructions Recorded Confirmed Type Sertraline HCl [Zoloft] 200 mg PO DAILY 10/30/13 11/24/23 History Temazepam [Restoril] 30 mg PO HS 10/30/13 11/24/23 History Apixaban [Eliquis] 5 mg PO BID #60 tab 06/12/18 11/24/23 Rx Acetaminophen Tab [Tylenol] 1,000 mg PO HS 08/08/18 11/24/23 History Furosemide [Lasix] 40 mg PO DAILY 09/17/18 11/24/23 History Metoprolol Tartrate [Lopressor] 25 mg PO BID 07/01/21 11/24/23 History Allergies Allergy/AdvReac Type Severity Reaction Status Date / Time hydrocodone [From Lortab] Allergy SEVERE Verified 11/13/23 10:39 ABDOMINAL AND TROUBLE BREATHING hydrocodone bitartrate Allergy Anaphylaxis Verified 11/13/23 10:39 [From Vicodin] Penicillins Allergy Anaphylaxis Verified 11/13/23 10:39 propoxyphene napsylate Allergy Anaphylaxis Verified 11/13/23 10:39 [From Darvocet-N 100] tamsulosin HCl [From Flomax] Allergy Anaphylaxis Verified 11/13/23 10:39 Physical Examination Osteopathic Statement: *. No significant issues noted on an osteopathic structural exam other than those noted in the History and Physical/Consult. - L Spine: dermatomal strength & reflexes right Strength: hip flexion: 4/5 (The right lower extremity has generalized weakness compared to the left. He has about 4 - hip flexion strength. 4 out of 5 dorsiflexion on the right. 4+ plantarflexion on the right. The left has 5 out of 5 throughout.) Strength: knee flexion: 5/5 Strength: knee extension: 5/5 (He has 4+ out of 5 right knee extension. No pain with internal ex rotation of his hips. His calves thighs soft nontender. Well- healed incisions over his bilateral knees. His low back is nontender to palpation. He is able to sit up with some assistance without pain in his back) Results - Labs Labs: Abnormal Lab Results - Last 24 Hours (Table) 12/02/23 12/02/23 Range/Units 04:47 04:47 MCV 100.0 H (80.0-97.0) FL MCHC 31.8 L (32.0-37.0) g/dL RDW 15.4 H (11.5-14.5) % Plt Count 113 L (140-440) X 10*3/uL Immature Gran # 0.08 H (0.00-0.04) X 10*3/uL Est GFR (CKD-EPI) 55 L (>=60) Calcium 8.5 L (8.7-10.3) mg/dL ALT 8 L (10-49) U/L Total Protein 4.7 L (6.2-8.2) g/dL Albumin 3.2 L (3.8-4.9) g/dL Globulin 1.5 L (1.6-3.3) g/dL H & H 11/24/23 11/27/23 11/29/23 Range/Units 16:16 06:07 05:12 Hgb 14.1 14.5 14.5 (13.0-17.5) gm/dL Hct 45.3 46.3 46.0 (39.0-53.0) % 11/30/23 12/02/23 Range/Units 05:18 04:47 Hgb 14.9 15.1 (13.0-17.5) gm/dL Hct 47.1 47.5 (39.0-53.0) % Coagulation 11/24/23 Range/Units 16:16 INR 1.1 (<1.2) Result Diagrams: 12/02/23 04:47 12/02/23 04:47 - Diagnostic results Lumbar MRI with contrast: report reviewed (The report and imaging are removed reviewed. He has significant degenerative changes at his lumbar spine. There is L4 prior kyphoplasty. There is no evidence of fracture of L3 at that August 2023 MRI), image reviewed CT Scan - lumbar: report reviewed, image reviewed (New imaging of the thoracolumbar spine shows evidence of compression forming L4 with prior kyphoplasty. This appears stable. There is new compression deformity at L3 with about 50% height loss. There is no significant bony retropulsion. 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 I do not think this is a new cause for his lower extremity weakness as he has been having chronic weakness of his lower extremities at least for the past several months and possibly for the past few years. He had recent workup with spine surgery at with a different physician and was having similar weakness at that point. He had had prior L4 kyphoplasty a few years ago and has significant degeneration. He does not feel his strength or his weakness has changed since that time. He has been having worsening difficulty getting around and denies any new trauma or injury. Despite this he has new fracture at L3 which was not present in August of this year. With the new fracture and his weakness I think it is worthwhile to obtain MRI imaging to fully evaluate his neurologic structures status. This would be worth comparing to his prior MRI in August as he has a new fracture. I discussed this with him and he is agreeable. I did review the CT scans as well and I believe he needs further MRI imaging. We will order an MRI of the lumbar spine with and without contrast. I think the patient may have some benefit with LSO brace. Will order an LSO brace to be worn whenever he is out of bed. It is okay for him to mobilize and to be involved with physical therapy with LSO brace intact. He should continue physical therapy for mobilization and transfers. He will continue medical management in regards to his recent diagnosis of colon cancer as well as his hematologic issues. He does have a an abdominal mass and is being evaluated for potential treatment and surgical intervention with surgery service. At this point I would recommend continued conservative treatment in terms of his lumbar spine with LSO bracing. I do not have acute plans for surgical intervention but will give further recommendations after the MRI is completed.
--- NOTE | 2023-12-02 14:10 | MR ---
EXAMINATION TYPE: MR cervical spine wo con DATE OF EXAM: 11/29/2023 COMPARISON: None HISTORY: Left sided weakness, evaluate for metastatic disease. TECHNIQUE: Multiplanar, multisequence images of the cervical spine were acquired without contrast. Patient could not tolerate the exam and was in too much pain for contrast. FINDINGS: Motion degraded exam. Alignment: The cervical vertebral bodies have preserved heights. Alignment is within normal limits gi canelo patient positioning. Bones: Bone signal is diffusely heterogenous. Multilevel degenerative disc disease is noted. Anterio r bridging osteophyte most prominent at C5-C6 and C6-C7. No abnormal STIR signal. Cord: The spinal cord is unremarkable with regards to their signal intensity and morphology. Discs: Multilevel disc desiccation is present. C2-C3: No significant disc pathology. The spinal canal is patent. No neural foraminal stenosis. C3-C4: Disc bulge with mild effacement of the anterior thecal sac. Uncovertebral joint hypertrophy w ith moderate to severe right neural foraminal stenosis. Left neural foramen is mildly narrowed. C4-C5: No significant disc pathology. The spinal canal is patent. No neural foraminal stenosis. C5-C6: No significant disc pathology. The spinal canal is patent. No neural foraminal stenosis. C6-C7: Central disc protrusion with mild effacement of the anterior thecal sac. Uncovertebral joint h ypertrophy with moderate right neuroforaminal stenosis. The left neural foramen is patent. C7-T1: No significant disc pathology. The spinal canal is patent. No neural foraminal stenosis. Other: Right thyroid lobe is surgically absent or atrophic. IMPRESSION: Motion degraded examination with patient in too much pain to continue with exam for contr ast portion. Multilevel degenerative disc disease and uncovertebral joint hypertrophy as described above. C6-C7 ce ntral disc herniation with mild effacement of the anterior thecal sac. Diffusely heterogenous bone ma rrow signal. Lack of contrast limits evaluation for osseous metastasis. [facility], , 12/02/2023 2:08 PM
--- NOTE | 2023-12-02 16:39 | P.PN ---
Subjective Progress Note Date: 12/02/23 Nick Vora, is an 83-year-old male who presented to [facility] emergency room with a chief complaint of generalized weakness, patient mostly is complaining of bilateral lower extremity weakness, with inability to stand or walk, he states that his symptoms has developed gradually, he denies any pain in the lower extremities however he states that he feels that his lower extremities are heavy. He was evaluated in the emergency room vital examination on presentation revealed a temperature of 97.5 pulse 92 respiration 18 blood pressure 104/80 pulse ox 92% on room air Laboratory data reveals a white blood count of 6.4 hemoglobin 14.1 platelet count 127 BUN 25 creatinine 1.22 Testing in the emergency room revealed EKG revealed atrial fibrillation with a heart rate of 107, chest x-ray revealed pulmonary vascular prominence. Patient was admitted to medical floor for further evaluation and treatment On 11/26/2023 patient is alert and oriented x 3. Still complaining of generalize d weakness awaiting neurology and oncology input. Current vital signs temp 97.6, heart rate 69, respiratory rate 16, blood pressure 107/70 with a pulse ox of 97% on room air. Patient denies chest pain or shortness of breath. Patient denies nausea vomiting or diarrhea. Patient denies any urinary burning or frequency. On 11/27/2023 patient was seen and examined on the medical floor he is alert and oriented x 3 in no apparent distress he is still complaining of severe weakness with inability to stand or walk otherwise he denies any complaints at this time there is no fever or chills no headache or dizziness no chest pain no shortness of breath no cough no nausea or vomiting no abdominal pain no diarrhea and no urinary symptoms. Echocardiogram results reviewed, patient has severe global h ypokinesia, cardiology consultation requested, we are reviewing input from neurology and oncology will continue to follow. On 11/28/2023 patient was seen and examined on the medical floor he is alert and oriented x 3 in no apparent distress he reports some improvement in his fatigue and shortness of breath otherwise he denies any complaints there is no fever or chills no headache or dizziness no chest pain no nausea or vomiting no abdominal pain no diarrhea and no urinary symptoms. Patient underwent GENARO and cardioversion. patient is requesting that any treatment related to his colon cancer will be done during this admission. A consultation for gastroenterology and general surgery was initiated. On 11/29/2023 patient is alert and oriented x 3. Per GI services General Surgery will follow patient. Awaiting further recommendations from surgical services. Patient denies any chest pain or shortness of breath. Patient denies nausea vomiting or diarrhea. Patient denies any urinary burning or frequency. On 11/30/2023 patient was seen and examined on the medical floor he is alert and oriented x 3 in no apparent distress there is no fever or chills no headache or dizziness no chest pain no shortness of breath no cough no nausea or vomiting no abdominal pain no diarrhea and no urinary symptoms, input from general surgery and cardiology reviewed, plan to continue with same medications at this time, plan for transfer to rehab on Saturday, possible readmission for surgery for colon cancer in the next 2 to 3 weeks. On 12/01/2023 patient is alert and oriented x 3. Discharge planning to rehab hopefully tomorrow. With follow-up outpatient for surgical intervention. Patient denies chest pain or shortness of breath. Patient denies nausea vomiting or diarrhea. Patient denies any urinary burning or frequency On 12/02/2023 patient was seen and examined on the medical floor he is alert and oriented x 3 in no apparent distress he is complaining of weakness otherwise he denies any complaints there is no fever or chills no headache or dizziness no chest pain no shortness of breath no cough no nausea or vomiting no abdominal pain no diarrhea no urinary symptoms. Patient has abnormal finding on CT scan in regard to L3, consultation for Dr. Edwards was initiated Objective - Vital Signs Vital signs: Vital Signs Temp 97.9 F 12/02/23 08:00 Pulse 84 12/02/23 08:00 Resp 17 12/02/23 08:00 BP 105/65 12/02/23 08:00 Pulse Ox 97 12/02/23 08:00 FiO2 Intake & Output 12/01/23 12/02/23 12/02/23 18:59 06:59 18:59 Intake Total 594 118 Output Total 1085 200 Balance -491 -200 118 Intake: Oral 594 118 Output: Urine 1085 200 Other: Voiding Method Urinal # Voids 1 # Bowel Movements 1 - Exam In general patient is alert and oriented x 3 in no distress HEENT head normocephalic and atraumatic Neck is supple no JVD no goiter no lymphadenopathy no carotid bruit Chest examination is clear to auscultation no crackles no wheezing Cardiac exam reveals regular heart sounds S1 and S2 no gallops no murmurs Abdomen is soft nontender no organomegaly with normal bowel sounds Extremity exam reveals no edema no cyanosis or clubbing Neurological examination reveals no gross focal deficits - Labs CBC & Chem 7: 12/02/23 04:47 12/02/23 04:47 Labs: Abnormal Lab Results - Last 24 Hours (Table) 12/02/23 12/02/23 Range/Units 04:47 04:47 MCV 100.0 H (80.0-97.0) FL MCHC 31.8 L (32.0-37.0) g/dL RDW 15.4 H (11.5-14.5) % Plt Count 113 L (140-440) X 10*3/uL Immature Gran # 0.08 H (0.00-0.04) X 10*3/uL Est GFR (CKD-EPI) 55 L (>=60) Calcium 8.5 L (8.7-10.3) mg/dL ALT 8 L (10-49) U/L Total Protein 4.7 L (6.2-8.2) g/dL Albumin 3.2 L (3.8-4.9) g/dL Globulin 1.5 L (1.6-3.3) g/dL Assessment and Plan Plan: Bilateral lower extremity weakness, with inability to stand or walk Recent history of colonoscopy with polypectomy on 11/13/2023, by Dr. Yu with pathology positive for invasive colonic adenocarcinoma Underlying history of atrial fibrillation maintained on Eliquis Remote history of CVA Underlying history of hypertension Underlying history of hyperlipidemia Underlying history of osteoarthritis Underlying history of benign prostatic hypertrophy Underlying history of difficulty hearing At this time patient was seen and examined, chart was reviewed Home medications reviewed and reordered Neurology consultation was requested in regard to lower extremity weakness Oncology consultation was requested in regard to colon Adenocarcinoma Will follow closely prognosis is guarded
--- NOTE | 2023-12-02 19:51 | P.PN ---
Subjective Progress Note Date: 12/02/23 Principal diagnosis: Newly diagnosed colon adenocarcinoma, BLE weakness IN f/u today pt reports large BM, he does have strength in his leg when testing strength while he is laying down, denies numbness or tingling, no incontinence of urine or stool. Objective - Vital Signs Vital signs: Vital Signs Temp 97.7 F 12/02/23 14:00 Pulse 96 12/02/23 17:25 Resp 16 12/02/23 14:00 BP 102/66 12/02/23 17:25 Pulse Ox 90 L 12/02/23 17:25 FiO2 Intake & Output 12/02/23 12/02/23 12/03/23 06:59 18:59 06:59 Intake Total 354 Output Total 200 200 Balance -200 154 Weight 107.955 kg Intake: Oral 354 Output: Urine 200 200 Other: Voiding Method Urinal Urinal # Voids 1 # Bowel Movements 1 - Constitutional General appearance: Present: average body habitus, cooperative, no acute distress - EENT Eyes: Present: anicteric sclerae, EOMI ENT: Present: hearing grossly normal - Respiratory Details: resp unlabored at rest - Cardiovascular Details: skin warm, well perfused - Peripheral edema leg Peripheral Edema: bilateral: Trace - Gastrointestinal General gastrointestinal: Present: soft - Integumentary Integumentary: Present: normal - Neurologic Neurologic: Present: CNII-XII intact - Musculoskeletal Musculoskeletal: Present: generalized weakness - Psychiatric Psychiatric: Present: A&O x's 3, appropriate affect, intact judgment & insight - Labs CBC & Chem 7: 12/02/23 04:47 12/02/23 04:47 Labs: Abnormal Lab Results - Last 24 Hours (Table) 12/02/23 12/02/23 Range/Units 04:47 04:47 MCV 100.0 H (80.0-97.0) FL MCHC 31.8 L (32.0-37.0) g/dL RDW 15.4 H (11.5-14.5) % Plt Count 113 L (140-440) X 10*3/uL Immature Gran # 0.08 H (0.00-0.04) X 10*3/uL Est GFR (CKD-EPI) 55 L (>=60) Calcium 8.5 L (8.7-10.3) mg/dL ALT 8 L (10-49) U/L Total Protein 4.7 L (6.2-8.2) g/dL Albumin 3.2 L (3.8-4.9) g/dL Globulin 1.5 L (1.6-3.3) g/dL Assessment and Plan (1) Colon adenocarcinoma Current Visit: Yes Status: Acute Priority: High Code(s): C18.9 - MALIGNANT NEOPLASM OF COLON, UNSPECIFIED SNOMED Code(s): 831166237 Plan: Colon adenocarcinoma -Recent diagnosis of colon adenocarcinoma -NGS/PDL-1 requested on pathology -CT abdomen pelvis on 11/21/2023 revealed cecal mass measuring up to 2.9 cm. And 1.6 cm lingular pulmonary nodule demonstrated which was relatively stable from prior CT scan on 04/03/2022. -Outpt PET/CT for final staging as metastatic disease could impact surgical plans. There is no evidence to suggest metastatic disease at this time -MRI of the thoracic and lumbar spine do not show metastatic disease, pending cervical MRI -F/U with Medical Oncologist for scan results once out of rehab. BLE weakness/RLE edema -Elevated BNP, Cardiology hase seen and worked up pt-swelling is significantly better -Spinal imaging thus far (T and L spine) do not show evidence of metastatic disease as a possible cause for lower extremity weakness symptoms. Ortho Spine Surgeon following -PT/OT consulted -Plans for rehab to get pt stronger for possible surgery, possible treatment of cancer, if needed in the future.
--- NOTE | 2023-12-03 09:09 | P.PN ---
Subjective Progress Note Date: 12/02/23 Patient was initially seen by Dr. Jese Nieves. Please refer to his note for details. Patient is a 83-year-old male with newly diagnosed colon cancer with pulmonary nodule. Patient has left lower extremity weakness. Patient states that his both legs are weak. MRI of the lumbar spine was done on 08/29/2023 revealed no definitive evidence of disc herniation or significant spinal canal stenosis. Moderate to severe disc degeneration with associated osteoarthritic change. L4-L5 disc extrusion suggested within this material extending superior with migration up to 11 mm. No evidence for acute compression fracture. Compression fracture of L4 vertebral body with approximately 50% height loss and no bony edema. CT of the of the lumbar and thoracic spine on 12/02/2023 revealed compression deformity of L3 vertebral body with at least greater than 50% height loss centrally with moderate to severe spinal canal stenosis. There is at least mild to moderate neural foraminal stenosis. Moderate to severe spinal canal stenosis at L4. Postsurgical changes L4 vertebral body with vertebroplasty cement. Diffuse idiopathic skeletal hyperostosis. MRI of the cervical spine 11/29/2023 revealed motion degraded examination. Multilevel degeneration disc disease and uncovertebral joint hypertrophy. C6-C7 central disc herniation with mild effacement of the anterior thecal sac. Diffusely heterogeneous bone marrow signal. Lack of contrast limits evaluation of osseous metastasis. Patient states he was diagnosed with colon cancer on routine colonoscopy. He is scheduled to undergo surgery once medically cleared. Patient has history of smoking 2 pack/day for 15 years, quit 50 years ago. Some of the workup during this hospital visit consisted of: TSH is 1.920 Vitamin B12: 618 Magnesium is 1.6, sodium is 138. Venous duplex. Negative DVT in right lower extremity Objective - Vital Signs Vital signs: Vital Signs Temp 97.7 F 12/02/23 14:00 Pulse 96 12/02/23 17:25 Resp 16 12/02/23 14:00 BP 102/66 12/02/23 17:25 Pulse Ox 90 L 12/02/23 17:25 FiO2 Intake & Output 12/01/23 12/02/23 12/02/23 18:59 06:59 18:59 Intake Total 594 354 Output Total 1085 200 200 Balance -491 -200 154 Weight 107.955 kg Intake: Oral 594 354 Output: Urine 1085 200 200 Other: Voiding Method Urinal Urinal # Voids 1 # Bowel Movements 1 - Exam On examination patient is an elderly male, laying in the bed in no acute distress. Patient's mental status, speech and language functions are normal. Cranial nerves are normal. Muscle strength is normal in the arms distally and proximally. Left shoulder not checked because of previous shoulder surgery and replacement. In the lower limbs his hip flexion is between 3-6-[id number]. Ankle dorsiflexion are normal. Inversion, peronei normal. Toe extension normal. - Labs CBC & Chem 7: 12/02/23 04:47 12/02/23 04:47 Labs: Abnormal Lab Results - Last 24 Hours (Table) 12/02/23 12/02/23 Range/Units 04:47 04:47 MCV 100.0 H (80.0-97.0) FL MCHC 31.8 L (32.0-37.0) g/dL RDW 15.4 H (11.5-14.5) % Plt Count 113 L (140-440) X 10*3/uL Immature Gran # 0.08 H (0.00-0.04) X 10*3/uL Est GFR (CKD-EPI) 55 L (>=60) Calcium 8.5 L (8.7-10.3) mg/dL ALT 8 L (10-49) U/L Total Protein 4.7 L (6.2-8.2) g/dL Albumin 3.2 L (3.8-4.9) g/dL Globulin 1.5 L (1.6-3.3) g/dL Assessment and Plan Assessment: This is an 83-year-old gentleman with intermittent diarrhea for the last 6 months with decreased oral intake who was recently diagnosed with colon cancer as well as has pulmonary nodule, lumbar degenerative changes, compression fracture of the L4 vertebra who is having weakness in the lower extremity since June 2023 progressively worsening as well as having numbness in the lowers. Lower extremity weakness, likely multifactorial related to reasons mentioned below: Possible acute compression fracture L3, with at least greater than 50% height loss History of compression fracture L4, status post kyphoplasty Moderate spinal canal stenosis at L3-4 Recent diagnosis of colon cancer with recent pulmonary nodule History of atrial fibrillation status post ablation on Eliquis Hypertension Plan: Orthopedic surgery on board. Agree with checking MRI of the lumbar spine with and without contrast to evaluate for new compression fracture (L3), and to rule out any metastatic disease. Consider bone scan. Oncology is consulted B12 618, MMA 0.31, RBC folate 429. TSH normal 1.92. Hemoglobin A1c 4.9. Will defer the rest of the medical management to primary and other specialist
--- NOTE | 2023-12-03 09:26 | P.PN ---
Subjective Progress Note Date: 12/03/23 Nick Vora, is an 83-year-old male who presented to [facility] emergency room with a chief complaint of generalized weakness, patient mostly is complaining of bilateral lower extremity weakness, with inability to stand or walk, he states that his symptoms has developed gradually, he denies any pain in the lower extremities however he states that he feels that his lower extremities are heavy. He was evaluated in the emergency room vital examination on presentation revealed a temperature of 97.5 pulse 92 respiration 18 blood pressure 104/80 pulse ox 92% on room air Laboratory data reveals a white blood count of 6.4 hemoglobin 14.1 platelet count 127 BUN 25 creatinine 1.22 Testing in the emergency room revealed EKG revealed atrial fibrillation with a heart rate of 107, chest x-ray revealed pulmonary vascular prominence. Patient was admitted to medical floor for further evaluation and treatment On 11/26/2023 patient is alert and oriented x 3. Still complaining of generalize d weakness awaiting neurology and oncology input. Current vital signs temp 97.6, heart rate 69, respiratory rate 16, blood pressure 107/70 with a pulse ox of 97% on room air. Patient denies chest pain or shortness of breath. Patient denies nausea vomiting or diarrhea. Patient denies any urinary burning or frequency. On 11/27/2023 patient was seen and examined on the medical floor he is alert and oriented x 3 in no apparent distress he is still complaining of severe weakness with inability to stand or walk otherwise he denies any complaints at this time there is no fever or chills no headache or dizziness no chest pain no shortness of breath no cough no nausea or vomiting no abdominal pain no diarrhea and no urinary symptoms. Echocardiogram results reviewed, patient has severe global h ypokinesia, cardiology consultation requested, we are reviewing input from neurology and oncology will continue to follow. On 11/28/2023 patient was seen and examined on the medical floor he is alert and oriented x 3 in no apparent distress he reports some improvement in his fatigue and shortness of breath otherwise he denies any complaints there is no fever or chills no headache or dizziness no chest pain no nausea or vomiting no abdominal pain no diarrhea and no urinary symptoms. Patient underwent GENARO and cardioversion. patient is requesting that any treatment related to his colon cancer will be done during this admission. A consultation for gastroenterology and general surgery was initiated. On 11/29/2023 patient is alert and oriented x 3. Per GI services General Surgery will follow patient. Awaiting further recommendations from surgical services. Patient denies any chest pain or shortness of breath. Patient denies nausea vomiting or diarrhea. Patient denies any urinary burning or frequency. On 11/30/2023 patient was seen and examined on the medical floor he is alert and oriented x 3 in no apparent distress there is no fever or chills no headache or dizziness no chest pain no shortness of breath no cough no nausea or vomiting no abdominal pain no diarrhea and no urinary symptoms, input from general surgery and cardiology reviewed, plan to continue with same medications at this time, plan for transfer to rehab on Saturday, possible readmission for surgery for colon cancer in the next 2 to 3 weeks. On 12/01/2023 patient is alert and oriented x 3. Discharge planning to rehab hopefully tomorrow. With follow-up outpatient for surgical intervention. Patient denies chest pain or shortness of breath. Patient denies nausea vomiting or diarrhea. Patient denies any urinary burning or frequency On 12/02/2023 patient was seen and examined on the medical floor he is alert and oriented x 3 in no apparent distress he is complaining of weakness otherwise he denies any complaints there is no fever or chills no headache or dizziness no chest pain no shortness of breath no cough no nausea or vomiting no abdominal pain no diarrhea no urinary symptoms. Patient has abnormal finding on CT scan in regard to L3, consultation for Dr. Edwards was initiated On 12/03/2023 patient is alert and oriented x 3. Orthopedic services have ordered LSO brace for patient but also ordered MRI to further assess. Per patient he is unlikely to tolerate MRI exam this is to be discussed with orthopedic services. Per nursing staff patient has required increased oxygen demands. Will order chest x-ray to further assess. At this time patient denies chest pain or shortness of breath. Patient denies nausea vomiting or diarrhea. Patient denies any urinary burning or frequency DC planning to [facility] facility Objective - Vital Signs Vital signs: Vital Signs Temp 97.0 F L 12/03/23 07:00 Pulse 95 12/03/23 07:51 Resp 17 12/03/23 07:51 BP 100/70 12/03/23 07:51 Pulse Ox 93 L 10/15/24 08:32 FiO2 Intake & Output 12/02/23 12/03/23 12/03/23 18:59 06:59 18:59 Intake Total 354 Output Total 200 1001 Balance 154 -1001 Weight 107.955 kg Intake: Oral 354 Output: Urine 200 1000 Stool 1 Other: Voiding Method Urinal Urinal # Bowel Movements 1 - Exam In general patient is alert and oriented x 3 in no distress HEENT head normocephalic and atraumatic Neck is supple no JVD no goiter no lymphadenopathy no carotid bruit Chest examination is clear to auscultation no crackles no wheezing Cardiac exam reveals regular heart sounds S1 and S2 no gallops no murmurs Abdomen is soft nontender no organomegaly with normal bowel sounds Extremity exam reveals no edema no cyanosis or clubbing Neurological examination reveals no gross focal deficits - Labs CBC & Chem 7: 12/02/23 04:47 12/02/23 04:47 Assessment and Plan Plan: Bilateral lower extremity weakness, with inability to stand or walk Recent history of colonoscopy with polypectomy on 11/13/2023, by Dr. Yu with pathology positive for invasive colonic adenocarcinoma Underlying history of atrial fibrillation maintained on Eliquis Remote history of CVA Underlying history of hypertension Underlying history of hyperlipidemia Underlying history of osteoarthritis Underlying history of benign prostatic hypertrophy Underlying history of difficulty hearing At this time patient was seen and examined, chart was reviewed Home medications reviewed and reordered Neurology consultation was requested in regard to lower extremity weakness Oncology consultation was requested in regard to colon Adenocarcinoma Will follow closely prognosis is guarded
--- NOTE | 2023-12-03 10:36 | P.CONS ---
History of Present Illness - Reason for Consult Consult date: 12/03/23 rehab recommendations - Chief Complaint debility - History of Present Illness Mr Nick Vora, is an 83-year-old right handed male who lives with his and son in a modular home with 2 claudy w/o handrails. Prior to admission, patient was ambulating with 4ww but reports it has been getting more difficult. He is unable to get into a vehicle to get to most appointments. His son is able to assist with ADLs as needed, is not in great health. He does not drive, son drives. Patient presented to [facility] emergency room with a chief complaint of generalized weakness, patient mostly is complaining of bilateral lower extremity weakness, with inability to stand or walk. Symptoms progressed over the last several months. EKG revealed atrial fibrillation with a heart rate of 107, chest x-ray revealed pulmonary vascular prominence. Neurology and oncology consulted. Patient with recent diagnosis of colon adenocarcinoma. Echocardiogram results reviewed, patient has severe global hypokinesia, cardiology consulted. Patient underwent GENARO and cardioversion. patient is requesting that any treatment related to his colon cancer will be done during this admission. A consultation for gastroenterology and general surgery was initiated. Possible readmission for surgery for colon cancer in the next 2 to 3 weeks. Patient has abnormal finding on CT scan in regard to L3 compression fracture, consultation for Dr. Edwards was initiated. Orthopedic services have ordered LSO brace. MRI C spine DDD with C6-7 central disc herniation. 12/03/23: Patient states he is very weak, reports this has progressed over the last 4 months or so as well as weight loss. He did have a fall late this summer which he believes is when he fractured his back. He has had back pain since. He reports numbness and tingling from his hips down to his toes bilaterally. He has a history of an old left shoulder surgery which has left him unable to lift his left arm above shoulder height. He denies CP, SOB, and abdominal pain. Still having some looser stools. We discussed rehab and therapy options including IPR, DO and he prefers DO. Review of Systems reviewed, negative as above Past Medical History Past Medical History: Atrial Fibrillation, CVA/TIA, GERD/Reflux, Hearing Disorder / Deafness, Hyperlipidemia, Osteoarthritis (OA), Prostate Disorder Additional Past Medical History / Comment(s): Tinnitus, Hx kidney stones, BPH, LUNG SCARRING. 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 History of Any Multi-Drug Resistant Organisms: None Reported Past Surgical History: Adenoidectomy, Ear Surgery, Heart Catheterization, Joint Replacement, Tonsillectomy Additional Past Surgical History / Comment(s): Oral surgery, diana knee replacements, partial thyroidectomy, diana cataracts. EGD, COLONOSCOPY cardioversion Past Anesthesia/Blood Transfusion Reactions: No Reported Reaction Past Psychological History: Anxiety Smoking Status: Former smoker Past Alcohol Use History: None Reported Additional Past Alcohol Use History / Comment(s): quit smoking 1986, started smoking age 17, 3 PPD. Pt states daily drinking when younger, average 6 beers or 1 pint Past Drug Use History: None Reported - Past Family History Mother Family Medical History: No Reported History Additional Family Medical History / Comment(s): . Medications and Allergies Home Medications Medication Instructions Recorded Confirmed Type Sertraline HCl [Zoloft] 200 mg PO DAILY 10/30/13 11/24/23 History Temazepam [Restoril] 30 mg PO HS 10/30/13 11/24/23 History Apixaban [Eliquis] 5 mg PO BID #60 tab 06/12/18 11/24/23 Rx Acetaminophen Tab [Tylenol] 1,000 mg PO HS 08/08/18 11/24/23 History Furosemide [Lasix] 40 mg PO DAILY 09/17/18 11/24/23 History Metoprolol Tartrate [Lopressor] 25 mg PO BID 07/01/21 11/24/23 History Allergies Allergy/AdvReac Type Severity Reaction Status Date / Time hydrocodone [From Lortab] Allergy SEVERE Verified 11/13/23 10:39 ABDOMINAL AND TROUBLE BREATHING hydrocodone bitartrate Allergy Anaphylaxis Verified 11/13/23 10:39 [From Vicodin] Penicillins Allergy Anaphylaxis Verified 11/13/23 10:39 propoxyphene napsylate Allergy Anaphylaxis Verified 11/13/23 10:39 [From Darvocet-N 100] tamsulosin HCl [From Flomax] Allergy Anaphylaxis Verified 11/13/23 10:39 Physical Exam Vitals: Vital Signs Temp Pulse Pulse Resp BP BP Pulse Ox 12/03/23 08:32 93 L 12/03/23 08:19 97 12/03/23 07:51 95 17 100/70 93 L 12/03/23 07:00 97.0 F L 95 15 99/63 91 L 12/03/23 01:42 97.6 F 94 18 94/63 91 L 12/02/23 19:07 98.3 F 75 18 90/58 91 L 12/02/23 17:25 96 102/66 90 L 12/02/23 14:00 97.7 F 72 16 87/52 92 L Intake and Output 12/02/23 12/03/23 12/03/23 22:59 06:59 14:59 Intake Total 118 708 Output Total 201 1000 Balance -83 -1000 708 Intake: Oral 118 708 Output: Urine 200 1000 Stool 1 Other: Voiding Method Urinal Urinal General: Well-developed, well-nourished, male, sitting up in bed, in no acute distress HEENT: NC/AT, slightly [place] Cardiovascular: B/L calves are supple, nontender,without peripheral edema, no cardiac distress Respiratory: Even and unlabored breathing on O2 via NC Abdomen: Soft, nontender, nondistended Genitourinary: not assessed Musculoskeletal: ROM WFL EXCEPT: left shoulder abduction and flexion less than 90 degrees, old surgical scarring Bilateral LE weakness proximal greater than distal Neurological: Alert and oriented x 4. CN II-XII: Grossly intact. Speech is clear, fluent MMT: L shoulder ABD 3/5, L EF/EE 4/5, HG 5/5; R UE 5/5 B/L HF 2/5, KE 4/5 with leg assisted into HF, DF and EHL 4+/5 Reflexes: 1/4 UE, 2/4 LE, negative hoffmans, negative clonus Skin: Skin intact where visible to head, neck, and bilateral upper and lower extremities EXCEPT: IV Psychiatric: Mood calm, affect appropriate, cooperative Results CBC & Chem 7: 12/02/23 04:47 12/02/23 04:47 Assessment and Plan Assessment: # Impaired gait and ADLs with new L3 compression fracture -per neurology LSO brace when OOB -fall precautions # Functional LE paresis -progressive, neurology following # Colon adenocarcinoma -per GI and surgical team, possible surgery in 2-3 weeks #AFib s/p GENARO and cardioversion -cardio following #Cervical degenerative disc disease # Pain Management -Tylenol 1000 mg QHS and Tylenol 650 mg Q 6 hrs prn -consider neuropathic agents #DVT Proph -Eliquis #Comorbidities: HTN, OA # Your medical dx and mangement Dispo: Discussed rehab options with patient, he does not want IPR, would prefer [facility]. Patient seen and examined in coordination with Dr Clemens Thank you for consulting our services
--- NOTE | 2023-12-03 11:46 | P.PN ---
Progress Note - Text Progress Note Date: 12/03/23 The patient is seen and examined at bedside. He is about to go down for x-ray of his chest due to increased oxygen demand. He has not yet had his lumbar MRI. He had his cervical spine MRI yesterday which I was able to review. He says his symptoms are essentially unchanged. He is not having any new weakness. He is not having any particular pain. He has pain when trying to lay flat on the MRI table but otherwise he is not having pain. He has not been out of bed. He denies any new symptoms in his lower extremities. His cervical MRI shows disc protrusion at C3-4 as well as C6-7. There is some effacement the anterior thecal sac and foraminal stenosis. There is no severe central stenosis. There is no evidence of myelomalacia. There is no instability. There is degenerative disc disease throughout the cervical spine. Assessment and plan Multiple medical issues including new diagnosis of colon cancer Increased oxygen demand Deconditioning Chronic lower extremity weakness with inability to ambulate independently or safely Cervical degenerative disc disease with disc bulging and some foraminal stenosis without central stenosis Degenerative disease of the lumbar spine In terms of the patient's spine I do not think that his upper or lower extremity weakness stems directly from his cervical spine. There is some foraminal encroachment but is not having any radicular pain. I do not think his lower extremity weakness stems from his cervical spine. He has chronic lower extremity weakness worse on the right than the left. He is not having progressive deficit but he is unable to mobilize or ambulate on his own. I do think it is a good idea for him to have a lumbar MRI given his new diagnosis of colon cancer and his weakness. I do not have plans for surgical intervention acutely but would have further recommendations once that further imaging is completed. For the time being I think that he should try to mobilize with physical therapy. We will obtain a lumbar MRI. I will order some medication to see if it will help him lay more comfortably for the MRI itself. He should continue his further workup for his oxygen needs, new diagnosis with colon cancer, hematology issues and overall medical status. Will continue following with you.
--- NOTE | 2023-12-03 11:51 | XR ---
EXAMINATION TYPE: XR chest 2V DATE OF EXAM: 12/03/2023 11:45 AM COMPARISON: Chest radiographs from 11/24/2023 TECHNIQUE: XR chest 2V Frontal and lateral views of the chest. CLINICAL INDICATION:Male, 83 years old with history of decrease oxygenation; FINDINGS: Lungs/Pleura: There is no evidence of pleural effusion, focal consolidation, or pneumothorax. Hyperi nflation. Bibasilar linear scarring. Pulmonary vascularity: Unremarkable. Heart/mediastinum: Cardiomediastinal silhouette is able. Prominence of the bilateral pulmonary hilum most consistent with pulmonary arterial hypertension. Musculoskeletal: No acute osseous pathology. DISH of the thoracic spine. Left shoulder arthroplasty c hanges. IMPRESSION: 1. No acute cardiopulmonary disease/process. 2. COPD changes with bibasilar linear scarring. [facility], , 12/03/2023 11:48 AM
[2023-12-03] MEDS ORDERED: LORazepam 2 MG/ML INJ IV PRN (12:53)
--- NOTE | 2023-12-03 13:27 | P.PN ---
Subjective Progress Note Date: 12/03/23 CHIEF COMPLAINT: Colon cancer HISTORY OF PRESENT ILLNESS: The patient is a 83-year-old male admitted for atrial fibrillation and ascending colon cancer. Patient followed by spinal service and is scheduled for MRI of the lumbar spine for further evaluation of his weakness. Patient reports he is tolerating diet. Denies any nausea or vomiting. He is having bowel movements. Denies any abdominal pain. PHYSICAL EXAM: VITAL SIGNS: Reviewed GENERAL: Well-developed in no acute distress. HEENT: No sclera icterus. Extraocular movements grossly intact. Moist buccal mucosa. Head is atraumatic, normocephalic. Hears conversational speech. No nasal drainage. NECK: Supple without lymphadenopathy. CHEST: Non-labored respirations and equal bilateral excursions. CARDIOVASCULAR: Palpable 2+ radial pulses. ABDOMEN: Soft. Nondistended. Nontender. MUSCULOSKELETAL: No clubbing or cyanosis. NEUROLOGIC: No focal or lateralizing signs. Cranial nerves II through XII grossly intact. PSYCH: Appropriate affect. Alert and oriented to person, place and time. SKIN: Well perfused. Good skin turgor. ASSESSMENT: 1. Adenocarcinioma ascending colon 2. Cirrhosis of the liver 3. Atrial fibrillation with rapid ventricular response 4. Generalized debility and weakness. 5. Moderate protein malnutrition. PLAN: 1. patient's surgical dates for admission January 01 for endoscopic tattooing of colon mass prior to robotic colectomy. 2. Colectomy anticipated scheduled January 02 3. Recommend patient to have pneumonia/COVID vaccinations prior to surgery to prevent illness 4. Agree with rehab prior to transition to home 5. Goal protein intake at least 100 g daily for optimal recovery and re habilitation 6. Continue dysphagia 2/ground diet high-protein high-calorie Physician Polisher Dial note has been reviewed by physician. Signing provider agrees with the documented findings, assessment, and plan of care. Objective - Vital Signs Vital signs: Vital Signs Temp 97.0 F L 12/03/23 07:00 Pulse 98 12/03/23 12:51 Resp 17 12/03/23 07:51 BP 95/65 12/03/23 12:51 Pulse Ox 93 L 12/03/23 12:51 FiO2 Intake & Output 12/02/23 12/03/23 12/03/23 18:59 06:59 18:59 Intake Total 354 708 Output Total 200 1001 200 Balance 154 -1001 508 Weight 107.955 kg Intake: Oral 354 708 Output: Urine 200 1000 200 Stool 1 Other: Voiding Method Urinal Urinal Urinal # Bowel Movements 1 - Labs CBC & Chem 7: 12/02/23 04:47 12/02/23 04:47
--- NOTE | 2023-12-03 15:47 | P.PN ---
Subjective Progress Note Date: 12/03/23 No acute events. Pt reporting generalized weakness. Plan for discharge to rehab Objective - Vital Signs Vital signs: Vital Signs Temp 97.0 F L 12/03/23 07:00 Pulse 95 12/03/23 11:04 Resp 17 12/03/23 07:51 BP 94/65 12/03/23 11:04 Pulse Ox 95 12/03/23 11:04 FiO2 Intake & Output 12/02/23 12/03/23 12/03/23 18:59 06:59 18:59 Intake Total 354 708 Output Total 200 1001 Balance 154 -1001 708 Weight 107.955 kg Intake: Oral 354 708 Output: Urine 200 1000 Stool 1 Other: Voiding Method Urinal Urinal Urinal # Bowel Movements 1 - Constitutional General appearance: Present: no acute distress - EENT Eyes: Present: anicteric sclerae, EOMI ENT: Present: hearing grossly normal - Respiratory Details: breathing is even and unlabored - Cardiovascular Details: skin warm and dry - Integumentary Integumentary: Absent: cyanotic - Musculoskeletal Musculoskeletal: Present: generalized weakness, strength equal bilaterally - Psychiatric Psychiatric: Present: A&O x's 3 - Labs CBC & Chem 7: 12/02/23 04:47 12/02/23 04:47 Assessment and Plan (1) Colon adenocarcinoma Current Visit: Yes Status: Acute Priority: High Code(s): C18.9 - MALIGNANT NEOPLASM OF COLON, UNSPECIFIED SNOMED Code(s): 428043328 (2) Weakness Current Visit: Yes Status: Acute Priority: High Code(s): R53.1 - WEAKNESS SNOMED Code(s): 92751600 (3) Atrial fibrillation Current Visit: Yes Status: Acute Priority: Medium Code(s): I48.91 - UNSPECIFIED ATRIAL FIBRILLATION SNOMED Code(s): 61077231 Plan: Colon adenocarcinoma -Recent diagnosis of colon adenocarcinoma -NGS/PDL-1 requested on pathology -CT abdomen pelvis on 11/21/2023 revealed cecal mass measuring up to 2.9 cm. And 1.6 cm lingular pulmonary nodule demonstrated which was relatively stable from prior CT scan on 04/03/2022. -Outpt PET/CT for final staging as metastatic disease could impact surgical plans. There is no evidence to suggest metastatic disease at this time -MRI of the thoracic and lumbar spine with contrast negative for metastatic disease. Cervical MRI was obtained without contrast and was also negative for mets. -F/U with Medical Oncologist for PET CT results once out of rehab. BLE weakness/RLE edema -Elevated BNP, Cardiology hase seen and worked up pt-swelling is significantly better -Spinal imaging do not show evidence of metastatic disease as a possible cause for lower extremity weakness symptoms. -Ortho Spine Surgeon following -PT/OT consulted -Plans for rehab to get pt stronger for possible surgery and possible systemic treatment of cancer, if needed in the future.
[2023-12-04 08:40] LABS: Basophils # (A) 0.03 X 10*3/uL (0.00-0.10); Basophils % (A) 0.5 %; Eosinophils # (A) 0.22 X 10*3/uL (0.04-0.35); Eosinophils % (A) 3.3 %; HCT 49.2 % (39.6-50.0); HGB 15.1 g/dL (13.0-17.0); Lymphocytes # (A) 1.22 X 10*3/uL (0.90-5.00); Lymphocytes % (A) 18.3 %; MCH 31.3 pg (27.0-32.0); MCHC 30.7 g/dL (32.0-37.0); MCV 101.9 FL (80.0-97.0); Mean Platelet Volume 11.6 FL (9.5-12.2); NRBC Per 100 WBC 0 X 10*3/uL (0.00-0.01); Neutrophils # (A) 4.53 X 10*3/uL (1.80-7.70); Platelet Count 109 X 10*3/uL (140-440); RBC 4.83 X 10*6/uL (4.40-5.60); RDW 15.6 % (11.5-14.5); WBC 6.66 X 10*3/uL (4.50-10.00)
[2023-12-04 09:00] LABS: ALT 12 U/L (10-49); AST 20 U/L (14-35); Albumin 3.4 g/dL (3.8-4.9); Alkaline Phosphatase 108 U/L (41-126); BUN/Creat Ratio 20.13 Ratio (12.00-20.00); Blood Urea Nitrogen 30.2 mg/dL (9.0-27.0); Calcium 8.6 mg/dL (8.7-10.3); Carbon Dioxide 31.7 mmol/L (21.6-31.8); Chloride 99 mmol/L (96-109); Globulin 1.7 g/dL (1.6-3.3); Glucose 75 mg/dL (70-110); Potassium 4.7 mmol/L (3.5-5.5); Sodium 139 mmol/L (135-145); Total Bilirubin 0.9 mg/dL (0.3-1.2); Total Protein 5.1 g/dL (6.2-8.2)
--- NOTE | 2023-12-04 10:08 | P.PN ---
Subjective Progress Note Date: 12/04/23 Nick Vora, is an 83-year-old male who presented to [facility] emergency room with a chief complaint of generalized weakness, patient mostly is complaining of bilateral lower extremity weakness, with inability to stand or walk, he states that his symptoms has developed gradually, he denies any pain in the lower extremities however he states that he feels that his lower extremities are heavy. He was evaluated in the emergency room vital examination on presentation revealed a temperature of 97.5 pulse 92 respiration 18 blood pressure 104/80 pulse ox 92% on room air Laboratory data reveals a white blood count of 6.4 hemoglobin 14.1 platelet count 127 BUN 25 creatinine 1.22 Testing in the emergency room revealed EKG revealed atrial fibrillation with a heart rate of 107, chest x-ray revealed pulmonary vascular prominence. Patient was admitted to medical floor for further evaluation and treatment On 11/26/2023 patient is alert and oriented x 3. Still complaining of generalize d weakness awaiting neurology and oncology input. Current vital signs temp 97.6, heart rate 69, respiratory rate 16, blood pressure 107/70 with a pulse ox of 97% on room air. Patient denies chest pain or shortness of breath. Patient denies nausea vomiting or diarrhea. Patient denies any urinary burning or frequency. On 11/27/2023 patient was seen and examined on the medical floor he is alert and oriented x 3 in no apparent distress he is still complaining of severe weakness with inability to stand or walk otherwise he denies any complaints at this time there is no fever or chills no headache or dizziness no chest pain no shortness of breath no cough no nausea or vomiting no abdominal pain no diarrhea and no urinary symptoms. Echocardiogram results reviewed, patient has severe global h ypokinesia, cardiology consultation requested, we are reviewing input from neurology and oncology will continue to follow. On 11/28/2023 patient was seen and examined on the medical floor he is alert and oriented x 3 in no apparent distress he reports some improvement in his fatigue and shortness of breath otherwise he denies any complaints there is no fever or chills no headache or dizziness no chest pain no nausea or vomiting no abdominal pain no diarrhea and no urinary symptoms. Patient underwent GENARO and cardioversion. patient is requesting that any treatment related to his colon cancer will be done during this admission. A consultation for gastroenterology and general surgery was initiated. On 11/29/2023 patient is alert and oriented x 3. Per GI services General Surgery will follow patient. Awaiting further recommendations from surgical services. Patient denies any chest pain or shortness of breath. Patient denies nausea vomiting or diarrhea. Patient denies any urinary burning or frequency. On 11/30/2023 patient was seen and examined on the medical floor he is alert and oriented x 3 in no apparent distress there is no fever or chills no headache or dizziness no chest pain no shortness of breath no cough no nausea or vomiting no abdominal pain no diarrhea and no urinary symptoms, input from general surgery and cardiology reviewed, plan to continue with same medications at this time, plan for transfer to rehab on Saturday, possible readmission for surgery for colon cancer in the next 2 to 3 weeks. On 12/01/2023 patient is alert and oriented x 3. Discharge planning to rehab hopefully tomorrow. With follow-up outpatient for surgical intervention. Patient denies chest pain or shortness of breath. Patient denies nausea vomiting or diarrhea. Patient denies any urinary burning or frequency On 12/02/2023 patient was seen and examined on the medical floor he is alert and oriented x 3 in no apparent distress he is complaining of weakness otherwise he denies any complaints there is no fever or chills no headache or dizziness no chest pain no shortness of breath no cough no nausea or vomiting no abdominal pain no diarrhea no urinary symptoms. Patient has abnormal finding on CT scan in regard to L3, consultation for Dr. Edwards was initiated On 12/03/2023 patient is alert and oriented x 3. Orthopedic services have ordered LSO brace for patient but also ordered MRI to further assess. Per patient he is unlikely to tolerate MRI exam this is to be discussed with orthopedic services. Per nursing staff patient has required increased oxygen demands. Will order chest x-ray to further assess. At this time patient denies chest pain or shortness of breath. Patient denies nausea vomiting or diarrhea. Patient denies any urinary burning or frequency DC planning to ECF facility On 05/04/2023 patient was seen and examined on the medical floor he is alert and oriented x 3 in no apparent distress, there is no fever or chills no headache or dizziness, no chest pain no shortness of breath no cough no nausea or vomiting no abdominal pain or diarrhea no blood in the stools no burning with urination no frequency or urgency and no hematuria. Patient is scheduled for MRI today, we are awaiting LSO brace ordered by orthopedic surgery. Plan to discharge to a alf for rehab in the next 1 to 2 days, then readmitted in the next 2 to 3 weeks for colon surgery. Today blood pressure was on the low side at 93/60, during this admission Entresto was added, at this time will decrease Lasix dose from 40 mg daily to 20 mg daily. Will continue to monitor blood pressure closely. Objective - Vital Signs Vital signs: Vital Signs Temp 97.3 F L 12/04/23 07:00 Pulse 91 12/04/23 07:00 Resp 16 12/04/23 07:00 BP 93/61 12/04/23 07:00 Pulse Ox 92 L 12/04/23 07:00 FiO2 Intake & Output 12/03/23 12/04/23 12/04/23 18:59 06:59 18:59 Intake Total 944 Output Total 400 200 220 Balance 544 -200 -220 Intake: Oral 944 Output: Urine 400 200 220 Other: Voiding Method Urinal Urinal Urinal # Bowel Movements 1 - Exam In general patient is alert and oriented x 3 in no distress HEENT head normocephalic and atraumatic Neck is supple no JVD no goiter no lymphadenopathy no carotid bruit Chest examination is clear to auscultation no crackles no wheezing Cardiac exam reveals regular heart sounds S1 and S2 no gallops no murmurs Abdomen is soft nontender no organomegaly with normal bowel sounds Extremity exam reveals no edema no cyanosis or clubbing Neurological examination reveals no gross focal deficits - Labs CBC & Chem 7: 12/04/23 04:35 12/04/23 04:35 Labs: Abnormal Lab Results - Last 24 Hours (Table) 12/04/23 12/04/23 Range/Units 04:35 04:35 MCV 101.9 H (80.0-97.0) FL MCHC 30.7 L (32.0-37.0) g/dL RDW 15.6 H (11.5-14.5) % Plt Count 109 L (140-440) X 10*3/uL Immature Gran # 0.06 H (0.00-0.04) X 10*3/uL BUN 30.2 H (9.0-27.0) mg/dL Est GFR (CKD-EPI) 46 L (>=60) BUN/Creatinine Ratio 20.13 H (12.00-20.00) Ratio Calcium 8.6 L (8.7-10.3) mg/dL Total Protein 5.1 L (6.2-8.2) g/dL Albumin 3.4 L (3.8-4.9) g/dL Assessment and Plan Plan: Bilateral lower extremity weakness, with inability to stand or walk Recent history of colonoscopy with polypectomy on 11/13/2023, by Dr. Yu with pathology positive for invasive colonic adenocarcinoma Underlying history of atrial fibrillation maintained on Eliquis Remote history of CVA Underlying history of hypertension Underlying history of hyperlipidemia Underlying history of osteoarthritis Underlying history of benign prostatic hypertrophy Underlying history of difficulty hearing At this time patient was seen and examined, chart was reviewed Home medications reviewed and reordered Neurology consultation was requested in regard to lower extremity weakness Oncology consultation was requested in regard to colon Adenocarcinoma Will follow closely prognosis is guarded
[2023-12-04] MEDS: KETOROLAC 15 MG/ML 1 ML VIAL IVP PRN (11:24)
--- NOTE | 2023-12-04 11:34 | P.PN ---
Subjective Progress Note Date: 12/03/23 12/03/2023: Patient was seen for follow-up. Patient is laying in the bed. Patient states that he got up today and moved and was feeling slightly better. No new concerns. 12/02/2023: Patient was initially seen by Dr. Jese Nieves. Please refer to his note for details. Patient is a 83-year-old male with newly diagnosed colon cancer with pulmonary nodule. Patient has left lower extremity weakness. Patient states that his both legs are weak. MRI of the lumbar spine was done on 08/29/2023 revealed no definitive evidence of disc herniation or significant spinal canal stenosis. Moderate to severe disc degeneration with associated osteoarthritic change. L4-L5 disc extrusion suggested within this material extending superior with migration up to 11 mm. No evidence for acute compression fracture. Compression fracture of L4 vertebral body with approximately 50% height loss and no bony edema. CT of the of the lumbar and thoracic spine on 12/02/2023 revealed compression deformity of L3 vertebral body with at least greater than 50% height loss centrally with moderate to severe spinal canal stenosis. There is at least mild to moderate neural foraminal stenosis. Moderate to severe spinal canal stenosis at L4. Postsurgical changes L4 vertebral body with vertebroplasty cement. Diffuse idiopathic skeletal hyperostosis. MRI of the cervical spine 11/29/2023 revealed motion degraded examination. Multilevel degeneration disc disease and uncovertebral joint hypertrophy. C6-C7 central disc herniation with mild effacement of the anterior thecal sac. Diffusely heterogeneous bone marrow signal. Lack of contrast limits evaluation of osseous metastasis. Patient states he was diagnosed with colon cancer on routine colonoscopy. He is scheduled to undergo surgery once medically cleared. Patient has history of smoking 2 pack/day for 15 years, quit 50 years ago. Some of the workup during this hospital visit consisted of: TSH is 1.920 Vitamin B12: 618 Magnesium is 1.6, sodium is 138. Venous duplex. Negative DVT in right lower extremity Objective - Vital Signs Vital signs: Vital Signs Temp 97.3 F L 12/04/23 07:00 Pulse 91 12/04/23 07:00 Resp 16 12/04/23 07:00 BP 93/61 12/04/23 07:00 Pulse Ox 92 L 12/04/23 07:00 FiO2 Intake & Output 12/03/23 12/04/23 12/04/23 18:59 06:59 18:59 Intake Total 944 Output Total 400 200 220 Balance 544 -200 -220 Intake: Oral 944 Output: Urine 400 200 220 Other: Voiding Method Urinal Urinal Urinal # Bowel Movements 1 - Exam On examination patient is an elderly male, laying in the bed in no acute distress. Patient's mental status, speech and language functions are normal. Cranial nerves are normal. Muscle strength is normal in the arms distally and proximally. Left shoulder not checked because of previous shoulder surgery and replacement. In the lower limbs his hip flexion is between 4-2-avavfrbkctu. Ankle dorsiflexion are normal. Inversion, peronei normal. Toe extension normal. - Labs CBC & Chem 7: 12/04/23 04:35 12/04/23 04:35 Labs: Abnormal Lab Results - Last 24 Hours (Table) 12/04/23 12/04/23 Range/Units 04:35 04:35 MCV 101.9 H (80.0-97.0) FL MCHC 30.7 L (32.0-37.0) g/dL RDW 15.6 H (11.5-14.5) % Plt Count 109 L (140-440) X 10*3/uL Immature Gran # 0.06 H (0.00-0.04) X 10*3/uL BUN 30.2 H (9.0-27.0) mg/dL Est GFR (CKD-EPI) 46 L (>=60) BUN/Creatinine Ratio 20.13 H (12.00-20.00) Ratio Calcium 8.6 L (8.7-10.3) mg/dL Total Protein 5.1 L (6.2-8.2) g/dL Albumin 3.4 L (3.8-4.9) g/dL Assessment and Plan Assessment: This is an 83-year-old gentleman with intermittent diarrhea for the last 6 months with decreased oral intake who was recently diagnosed with colon cancer as well as has pulmonary nodule, lumbar degenerative changes, compression fracture of the L4 vertebra who is having weakness in the lower extremity since June 2023 progressively worsening as well as having numbness in the lowers. Lower extremity weakness, likely multifactorial related to reasons mentioned below: Possible acute compression fracture L3, with at least greater than 50% height loss History of compression fracture L4, status post kyphoplasty Moderate spinal canal stenosis at L3-4 Recent diagnosis of colon cancer with recent pulmonary nodule History of atrial fibrillation status post ablation on Eliquis Hypertension Plan: Orthopedic surgery on board. Await MRI of the lumbar spine with and without contrast to evaluate for new compression fracture (L3), and to rule out any metastatic disease. Consider bone scan. Oncology is consulted B12 618, MMA 0.31, RBC folate 429. TSH normal 1.92. Hemoglobin A1c 4.9. Will defer the rest of the medical management to primary and other specialist
[2023-12-04] MEDS: LORazepam 2 MG/ML INJ IV PRN (11:36)
--- NOTE | 2023-12-04 12:35 | P.PN ---
Subjective Progress Note Date: 12/04/23 CHIEF COMPLAINT: Colon cancer HISTORY OF PRESENT ILLNESS: The patient is a 83-year-old male admitted for atrial fibrillation and ascending colon cancer. Patient followed by spinal service and is scheduled for MRI of the lumbar spine for further evaluation of his weakness. Patient reports he is tolerating diet. Denies any nausea or vomiting. He is having bowel movements. Denies any abdominal pain. PHYSICAL EXAM: VITAL SIGNS: Reviewed GENERAL: Well-developed in no acute distress. HEENT: No sclera icterus. Extraocular movements grossly intact. Moist buccal mucosa. Head is atraumatic, normocephalic. Hears conversational speech. No nasal drainage. NECK: Supple without lymphadenopathy. CHEST: Non-labored respirations and equal bilateral excursions. CARDIOVASCULAR: Palpable 2+ radial pulses. ABDOMEN: Soft. Nondistended. Nontender. MUSCULOSKELETAL: No clubbing or cyanosis. NEUROLOGIC: No focal or lateralizing signs. Cranial nerves II through XII grossly intact. PSYCH: Appropriate affect. Alert and oriented to person, place and time. SKIN: Well perfused. Good skin turgor. ASSESSMENT: 1. Adenocarcinioma ascending colon 2. Cirrhosis of the liver 3. Atrial fibrillation with rapid ventricular response 4. Generalized debility and weakness. 5. Moderate protein malnutrition. PLAN: 1. patient's surgical dates for admission January 01 for endoscopic tattooing of colon mass prior to robotic colectomy. 2. Colectomy anticipated scheduled January 02 3. Recommend patient to have pneumonia/COVID vaccinations prior to surgery to prevent illness 4. Agree with rehab prior to transition to home 5. Goal protein intake at least 100 g daily for optimal recovery and apryl abilitation 6. Continue dysphagia 2/ground diet high-protein high-calorie Physician [employer] note has been reviewed by physician. Signing provider agrees with the documented findings, assessment, and plan of care. Objective - Vital Signs Vital signs: Vital Signs Temp 97.3 F L 12/04/23 07:00 Pulse 90 12/04/23 11:30 Resp 14 12/04/23 11:30 BP 92/63 12/04/23 11:30 Pulse Ox 97 12/04/23 11:30 FiO2 Intake & Output 12/03/23 12/04/23 12/04/23 18:59 06:59 18:59 Intake Total 944 Output Total 400 200 220 Balance 544 -200 -220 Intake: Oral 944 Output: Urine 400 200 220 Other: Voiding Method Urinal Urinal Urinal # Bowel Movements 1 - Labs CBC & Chem 7: 12/04/23 04:35 12/04/23 04:35 Labs: Abnormal Lab Results - Last 24 Hours (Table) 12/04/23 12/04/23 Range/Units 04:35 04:35 MCV 101.9 H (80.0-97.0) FL MCHC 30.7 L (32.0-37.0) g/dL RDW 15.6 H (11.5-14.5) % Plt Count 109 L (140-440) X 10*3/uL Immature Gran # 0.06 H (0.00-0.04) X 10*3/uL BUN 30.2 H (9.0-27.0) mg/dL Est GFR (CKD-EPI) 46 L (>=60) BUN/Creatinine Ratio 20.13 H (12.00-20.00) Ratio Calcium 8.6 L (8.7-10.3) mg/dL Total Protein 5.1 L (6.2-8.2) g/dL Albumin 3.4 L (3.8-4.9) g/dL
--- NOTE | 2023-12-04 13:44 | P.PN ---
Progress Note - Text Progress Note Date: 12/04/23 Orthopedic spine: History of present illness: Patient is a very pleasant 83-year-old male who is seen examined the bedside for follow-up evaluation of his lumbar spine. He was able to have lumbar MRI imaging performed this morning and just returned to the room. He was found to have an acute L3 compression fracture deformity with chronic L4 compression fracture deformity. He has been utilizing LSO bracing. He states his back pain is well-controlled except when lying flat on a hard surface. He has been able to ambulate without significant pain. He has been able to work with physical therapy. He was able to ambulate and take a shower today without difficulty. He does find benefit with the brace. He does have chronic lower extremity weakness with inability to ambulate independently and safely. Patient currently undergoing further treatment evaluation for recently diagnosed colon cancer. He is scheduled undergo surgical intervention for his colon over the next 2 to 3 weeks. Nursing states they are planning for discharge to a rehabilitation facility either tomorrow, 12/05/2023, or 12/06/2023. Patient would like to continue with conservative treatment in regards to his lumbar spine. Physical exam: Patient is awake, alert, and oriented 3 Vital signs stable Good chest excursion with deep inspiration and expiration Abdomen soft nontender Examination of lumbar spine reveals skin is intact with no abrasions, lacerations, or bruises; no erythema, purulence or signs of infection Dorsiflexion, plantarflexion, and extensor hallucis longus positive sustained bilaterally Chronic lower extremity weakness greater on the right than the left No signs or symptoms of DVT; no calf pain No pain with internal and external rotation of the hips bilaterally Neurovascularly intact Pertinent studies: MRI of the lumbar spine taken on 12/04/2023: L2-3 disc bulge and facet spondylosis with bilateral foraminal stenosis and mild to moderate central canal stenosis; L3-4 disc bulge and facet spondylosis with bilateral lateral neuroforaminal narrowing and mild central canal stenosis; L3 acute compression fracture deformity; L4 chronic compression fracture deformity; L4-5 foraminal stenosis greater on the left than the right Assessment: Acute L3 compression fracture deformity Chronic L4 compression fracture deformity L2-3 mild to moderate central canal stenosis and bilateral foraminal stenosis L3-4 mild central canal stenosis and foraminal stenosis L4-5 foraminal stenosis greater on the left than the right Low back pain Chronic lower extremity weakness greater on the right than the left Recent diagnosed colon cancer Deconditioning Cervical degenerative disc disease with disc bulging with foraminal stenosis without central stenosis Hypertension Hyperlipidemia Atrial fibrillation on anticoagulation Plan: 1. After reviewing of imaging, physical examination the patient, and further discussion with the patient, will currently plan to continue with conservative treatment at this time. At this time we'll plan for bracing. A prescription has been written and provided to case management for an LSO brace. This brace has been delivered and fitted appropriately. Patient should wear this brace while sitting upright at greater than 45, during increase activities, during ambulation. Brace is not have to or while lying in bed or while bathing. Following fitting of this brace, patient is clear for discharge from an orthopedic spine standpoint. Following discharge, patient may follow-up with Alistair Aaron PA-C or Dr. Ryan Edwards at [facility]. Currently, we are not currently planning for surgical intervention in regards to his lumbar spine. He does have ongoing chronic weakness with his lower extremities without significant stenosis. He is not experiencing new weakness. He does have significant difficulty with his mobilization. He is planning for discharge to a rehabilitation facility over the next 1 to 2 days. Currently, he will plan to proceed forward with further treatment in regards to his recently diagnosed colon cancer. He is currently scheduled for colon surgery over the next 2 to 3 weeks. We will plan to follow him in the outpatient setting for his lumbar spine. Patient feels this is a good plan of care.
--- NOTE | 2023-12-04 13:59 | MR ---
EXAMINATION TYPE: MR lumbar spine wo/w con DATE OF EXAM: 12/04/2023 12:59 PM CLINICAL INDICATION: Male, 83 years old with history of New L3 compression fracture, chronic LE weakn ess; PHH, Chronic LE weakness, new L3 compression fracture. COMPARISON: 08/29/2023, CT 12/02/2023 TECHNIQUE: Multi planar, multi sequence imaging was performed utilizing: T1-weighted, T2-weighted, a nd turbo inversion recovery imaging of the lumbar spine. IV Contrast: 10.5 cc Gadavist. (None if empty) FINDINGS: Alignment: Compression deformities with straightening of the spine. Cord: The conus medullaris and the distal spinal cord appear unremarkable with regards to their signa l intensity and morphology. Bones/Discs: Compression deformities to the L3 and L4 vertebral bodies near greater than 75 height lo ss of L3 and L4 vertebral bodies. Mild bony edema within the L3 vertebral body. There is mild retropu lsion up to 5 mm at L3. High T1/T2 signal probable vertebral body hemangioma in L5 and L1. Multilevel degeneration changes with facet joint arthropathy throughout the visualized spine. T12-L1: No evidence of significant spinal canal stenosis or neural foraminal stenosis. L1-L2: No evidence of significant spinal canal stenosis or neural foraminal stenosis. L2-L3: Mild retropulsion from fracture with mild spinal canal stenosis at the level of posterior aspe ct of L3. Facet joint arthropathy with severe right and moderate left neural foraminal stenosis. L3-L4: Disc bulge and facet joint arthropathy result in mild spinal canal and moderate to severe righ t and moderate left bilateral neural foraminal stenosis. L4-L5: No evidence of significant spinal canal stenosis. Facet joint arthropathy mild to moderate diana ateral neural foraminal stenosis. L5-S1: The disc has a rounded posterior morphology without significant spinal canal stenosis. Facet j oint arthropathy with mild bilateral neural foraminal stenosis. No significant spinal canal or neural foraminal stenosis in the remainder of the visualized levels. Other findings: None. IMPRESSION: 1. New from 08/29/2023 MRI, Acute/subacute fracture of the compression fracture of L3 greater than 75 % height loss. Additional chronic appearing fracture of the L4 vertebral body with up to 75% height l oss. 2. No definitive evidence of disc herniation or significant spinal canal stenosis. 3. Multilevel disc degeneration with associated osteoarthritic changes neural femoral stenosis worse on the right at L2-L3 with severe neural foraminal stenosis. [facility], , 12/04/2023 1:57 PM
[2023-12-04] MEDS: APIXABAN 2.5 MG TABLET PO SCH (20:34)
[2023-12-05] MEDS: FUROSEMIDE 20 MG TAB PO SCH (09:37)
--- NOTE | 2023-12-05 10:06 | P.PN ---
Subjective Progress Note Date: 12/05/23 CHIEF COMPLAINT: Colon cancer HISTORY OF PRESENT ILLNESS: The patient is a 83-year-old male admitted for atrial fibrillation and ascending colon cancer. He is laying in bed. No new complaints today. Patient had been seen by orthopedic surgery team due to compression fracture lumbar spine. Patient has a lumbar support at bedside. Currently, he is not wearing his lumbar support. Patient has been placed on a high-protein diet. He reports minimal appetite this morning. Overall, he is in good spirits. Patient has not been placed on blood thinners. ROS: No reports of nausea and vomiting. No fevers or chills. No new chest pain. No productive sputum PHYSICAL EXAM: VITAL SIGNS: Reviewed CONSTITUTIONAL: Well developed and in no acute distress. EYES: Conjuctivae without sclera icterus. Extraocular movements grossly intact. HEAD, EARS, NOSE, THROAT: Moist buccal mucosa. Head is atraumatic, normocephalic. Hears conversational speech. No nasal drainage. He is edentulous. RESPIRATORY: Non-labored respirations and equal bilateral excursions. CARDIOVASCULAR: Palpable 2+ radial pulses. ABDOMEN: Nontender MUSCULOSKELETAL: No gross deformity of the lower extremities noted. No c lubbing. No cyanosis. SKIN: Good skin turgor. Well perfused. NEUROLOGIC: Cranial nerves II through XII grossly intact. No focal or lateralizing signs. PSYCH: Appropriate affect. Alert and oriented to person, place and time. CLINICAL LABS: Reviewed. Creatinine elevated 1.4 to 1.5. ASSESSMENT: 1. Adenocarcinioma ascending colon 2. Cirrhosis of the liver 3. Atrial fibrillation with rapid ventricular response 4. Generalized debility and weakness. 5. Moderate protein malnutrition. PLAN: 1. Agree with blood thinners at this time due to pre-existing atrial fibrillation. 2. Continue with modified diet for optimal preoperative preparation 3. Pending transfer to rehab for strength training. 4. Patient stable for discharge from a surgical standpoint when medically cleared Objective - Vital Signs Vital signs: Vital Signs Temp 98.2 F 12/05/23 07:00 Pulse 98 12/05/23 07:00 Resp 19 12/05/23 07:00 BP 102/61 12/05/23 07:00 Pulse Ox 90 L 12/05/23 08:18 FiO2 Intake & Output 12/04/23 12/05/23 12/05/23 18:59 06:59 18:59 Intake Total 720 Output Total 420 201 1 Balance 300 -201 -1 Intake: Oral 720 Output: Urine 420 200 Stool 1 1 Other: Voiding Method Urinal Urinal Urinal # Voids 1 # Bowel Movements 1 - Labs CBC & Chem 7: 12/04/23 04:35 12/04/23 04:35
--- NOTE | 2023-12-05 12:22 | P.PN ---
Subjective Progress Note Date: 12/04/23 12/04/2023: Patient was seen for a follow-up. Patient's was also present. Patient continues to have some back pain. Otherwise no new concerns. 12/03/2023: Patient was seen for follow-up. Patient is laying in the bed. Patient states that he got up today and moved and was feeling slightly better. No new concerns. 12/02/2023: Patient was initially seen by Dr. Jese Nieves. Please refer to his note for details. Patient is a 83-year-old male with newly diagnosed colon cancer with pulmonary nodule. Patient has left lower extremity weakness. Patient states that his both legs are weak. MRI of the lumbar spine was done on 08/29/2023 revealed no definitive evidence of disc herniation or significant spinal canal stenosis. Moderate to severe disc degeneration with associated osteoarthritic change. L4-L5 disc extrusion suggested within this material extending superior with migration up to 11 mm. No evidence for acute compression fracture. Compression fracture of L4 vertebral body with approximately 50% height loss and no bony edema. CT of the of the lumbar and thoracic spine on 12/02/2023 revealed compression deformity of L3 vertebral body with at least greater than 50% height loss centrally with moderate to severe spinal canal stenosis. There is at least mild to moderate neural foraminal stenosis. Moderate to severe spinal canal stenosis at L4. Postsurgical changes L4 vertebral body with vertebroplasty cement. Diffuse idiopathic skeletal hyperostosis. MRI of the cervical spine 11/29/2023 revealed motion degraded examination. Multilevel degeneration disc disease and uncovertebral joint hypertrophy. C6-C7 central disc herniation with mild effacement of the anterior thecal sac. Diffusely heterogeneous bone marrow signal. Lack of contrast limits evaluation of osseous metastasis. Patient states he was diagnosed with colon cancer on routine colonoscopy. He is scheduled to undergo surgery once medically cleared. Patient has history of smoking 2 pack/day for 15 years, quit 50 years ago. Some of the workup during this hospital visit consisted of: TSH is 1.920 Vitamin B12: 618 Magnesium is 1.6, sodium is 138. Venous duplex. Negative DVT in right lower extremity Objective - Vital Signs Vital signs: Vital Signs Temp 97.6 F 12/04/23 16:19 Pulse 94 12/04/23 16:19 Resp 14 12/04/23 16:19 BP 90/55 12/04/23 16:19 Pulse Ox 93 L 12/04/23 16:19 FiO2 Intake & Output 12/03/23 12/04/23 12/04/23 18:59 06:59 18:59 Intake Total 944 720 Output Total 400 200 420 Balance 544 -200 300 Intake: Oral 944 720 Output: Urine 400 200 420 Other: Voiding Method Urinal Urinal Urinal # Voids 1 # Bowel Movements 1 1 - Exam On examination patient is an elderly male, laying in the bed in no acute distress. Patient's mental status, speech and language functions are normal. Cranial nerves are normal. Muscle strength is normal in the arms distally and proximally. Left shoulder not checked because of previous shoulder surgery and replacement. In the lower limbs his hip flexion is between [id number]. Ankle dorsiflexion are normal. Inversion, peronei normal. Toe extension normal. - Labs CBC & Chem 7: 12/04/23 04:35 12/04/23 04:35 Labs: Abnormal Lab Results - Last 24 Hours (Table) 12/04/23 12/04/23 Range/Units 04:35 04:35 MCV 101.9 H (80.0-97.0) FL MCHC 30.7 L (32.0-37.0) g/dL RDW 15.6 H (11.5-14.5) % Plt Count 109 L (140-440) X 10*3/uL Immature Gran # 0.06 H (0.00-0.04) X 10*3/uL BUN 30.2 H (9.0-27.0) mg/dL Est GFR (CKD-EPI) 46 L (>=60) BUN/Creatinine Ratio 20.13 H (12.00-20.00) Ratio Calcium 8.6 L (8.7-10.3) mg/dL Total Protein 5.1 L (6.2-8.2) g/dL Albumin 3.4 L (3.8-4.9) g/dL Assessment and Plan Assessment: This is an 83-year-old gentleman with intermittent diarrhea for the last 6 m [facility] with decreased oral intake who was recently diagnosed with colon cancer as well as has pulmonary nodule, lumbar degenerative changes, compression fracture of the L4 vertebra who is having weakness in the lower extremity since June 2023 progressively worsening as well as having numbness in the lowers. Lower extremity weakness, likely multifactorial related to reasons mentioned below: Acute compression fracture L3, with at least greater than 50% height loss History of prior compression fracture L4, status post kyphoplasty Moderate spinal canal stenosis at L3-4 Adenocarcinoma ascending colon Cirrhosis of liver History of atrial fibrillation status post ablation on Eliquis Hypertension Plan: Orthopedic surgery on board. MRI of the lumbar spine with and without contrast revealed new from 08/29/2023 MRI, acute/subacute fracture of the compression fracture of L3 greater than 75% height loss. Additional chronic appearing fracture of the L4 vertebral body with up to 75% height loss. No definitive evidence of disc herniation or significant spinal canal stenosis. Multilevel disc degeneration with associated osteoarthritic changes neural foraminal stenosis worse on the right at L2-L3 with severe neural foraminal stenosis. I personally reviewed MRI agree with the findings. Orthopedic surgery following patient, recommending conservative treatment at this time. Patient has been fitted with LSO brace. Patient needs to use it while sitting upright at greater than 45 degree, daily during increased activities and during ambulation. Patient will follow-up in the office. Consider bone scan. Oncology is consulted B12 618, MMA 0.31, RBC folate 429. TSH normal 1.92. Hemoglobin A1c 4.9. Will defer the rest of the medical management to primary and other specialist Neurologically clear for discharge to rehab facility.
--- NOTE | 2023-12-05 13:39 | P.DS ---
Providers Date of admission: 11/25/23 14:30 Expected date of discharge: 12/05/23 Attending physician: Juan C Beltran Consults: 11/25/23 18:35 Consult Physician Routine Consulting Provider: Jese Nieves Consult Reason/Comments: Bilateral lower extremity weakness Do you want consulting provider notified?: Yes 11/25/23 18:45 Consult Physician Routine Consulting Provider: Ascencion Child Consult Reason/Comments: Colon cancer Do you want consulting provider notified?: Yes 11/28/23 14:01 Consult Physician Routine Consulting Provider: Danita Gore Consult Reason/Comments: colon ca Do you want consulting provider notified?: Yes 11/29/23 06:35 Consult Physician Routine Consulting Provider: Florence Dsouza Consult Reason/Comments: Colon cancer Do you want consulting provider notified?: Yes 11/30/23 12:55 Consult Physician Routine Consulting Provider: Kristen Clemens Consult Reason/Comments: Weakness possible rehab admission Do you want consulting provider notified?: Yes 12/02/23 10:26 Consult Physician Routine Consulting Provider: Rodrigo Edwards Consult Reason/Comments: Vertebral fracture Do you want consulting provider notified?: Yes Primary care physician: Juan C Beltran [facility] Course: Diagnosis on discharge: Bilateral lower extremity weakness, with inability to stand or walk Recent history of colonoscopy with polypectomy on 11/13/2023, by Dr. Yu with pathology positive for invasive colonic adenocarcinoma Underlying history of atrial fibrillation maintained on Eliquis Acute/subacute fracture of L3 Remote history of CVA Underlying history of hypertension Underlying history of hyperlipidemia Underlying history of osteoarthritis Underlying history of benign prostatic hypertrophy Underlying history of difficulty hearing Hospital course: Nick Vora, is an 83-year-old male who presented to [facility] emergency room with a chief complaint of generalized weakness, patient mostly is complaining of bilateral lower extremity weakness, with inability to stand or walk, he states that his symptoms has developed gradually, he denies any pain in the lower extremities however he states that he feels that his lower extremities are heavy. He was evaluated in the emergency room vital examination on presentation revealed a temperature of 97.5 pulse 92 respiration 18 blood pressure 104/80 pulse ox 92% on room air Laboratory data reveals a white blood count of 6.4 hemoglobin 14.1 platelet count 127 BUN 25 creatinine 1.22 Testing in the emergency room revealed EKG revealed atrial fibrillation with a heart rate of 107, chest x-ray revealed pulmonary vascular prominence. Patient was admitted to medical floor for further evaluation and treatment On 11/26/2023 patient is alert and oriented x 3. Still complaining of generalized weakness awaiting neurology and oncology input. Current vital signs temp 97.6, heart rate 69, respiratory rate 16, blood pressure 107/70 with a pulse ox of 97% on room air. Patient denies chest pain or shortness of breath. Patient denies nausea vomiting or diarrhea. Patient denies any urinary burning or frequency. On 11/27/2023 patient was seen and examined on the medical floor he is alert and oriented x 3 in no apparent distress he is still complaining of severe weakness with inability to stand or walk otherwise he denies any complaints at this time there is no fever or chills no headache or dizziness no chest pain no shortness of breath no cough no nausea or vomiting no abdominal pain no diarrhea and no urinary symptoms. Echocardiogram results reviewed, patient has severe global hypokinesia, cardiology consultation requested, we are reviewing input from neurology and oncology will continue to follow. On 11/28/2023 patient was seen and examined on the medical floor he is alert and oriented x 3 in no apparent distress he reports some improvement in his fatigue and shortness of breath otherwise he denies any complaints there is no fever or chills no headache or dizziness no chest pain no nausea or vomiting no abdominal pain no diarrhea and no urinary symptoms. Patient underwent GENARO and cardioversion. patient is requesting that any treatment related to his colon cancer will be done during this admission. A consultation for gastroenterology and general surgery was initiated. On 11/29/2023 patient is alert and oriented x 3. Per GI services General Surgery will follow patient. Awaiting further recommendations from surgical services. Patient denies any chest pain or shortness of breath. Patient denies nausea vomiting or diarrhea. Patient denies any urinary burning or frequency. On 11/30/2023 patient was seen and examined on the medical floor he is alert and oriented x 3 in no apparent distress there is no fever or chills no headache or dizziness no chest pain no shortness of breath no cough no nausea or vomiting no abdominal pain no diarrhea and no urinary symptoms, input from general surgery and cardiology reviewed, plan to continue with same medications at this time, plan for transfer to rehab on Saturday, possible readmission for surgery for colon cancer in the next 2 to 3 weeks. On 12/01/2023 patient is alert and oriented x 3. Discharge planning to rehab hopefully tomorrow. With follow-up outpatient for surgical intervention. Patient denies chest pain or shortness of breath. Patient denies nausea vomiting or diarrhea. Patient denies any urinary burning or frequency On 12/02/2023 patient was seen and examined on the medical floor he is alert and oriented x 3 in no apparent distress he is complaining of weakness otherwise he denies any complaints there is no fever or chills no headache or dizziness no chest pain no shortness of breath no cough no nausea or vomiting no abdominal pain no diarrhea no urinary symptoms. Patient has abnormal finding on CT scan in regard to L3, consultation for Dr. Edwards was initiated On 12/03/2023 patient is alert and oriented x 3. Orthopedic services have ordered LSO brace for patient but also ordered MRI to further assess. Per patient he is unlikely to tolerate MRI exam this is to be discussed with orthopedic services. Per nursing staff patient has required increased oxygen demands. Will order chest x-ray to further assess. At this time patient denies chest pain or shortness of breath. Patient denies nausea vomiting or diarrhea. Patient denies any urinary burning or frequency DC planning to ECF facility On 12/04/2023 patient was seen and examined on the medical floor he is alert and oriented x 3 in no apparent distress, there is no fever or chills no headache or dizziness, no chest pain no shortness of breath no cough no nausea or vomiting no abdominal pain or diarrhea no blood in the stools no burning with urination no frequency or urgency and no hematuria. Patient is scheduled for MRI today, we are awaiting LSO brace ordered by orthopedic surgery. Plan to discharge to a half-way for rehab in the next 1 to 2 days, then readmitted in the next 2 to 3 weeks for colon surgery. Today blood pressure was on the low side at 93/60, during this admission Entresto was added, at this time will decrease Lasix dose from 40 mg daily to 20 mg daily. Will continue to monitor blood pressure closely. On 12/05/2023 patient was seen and examined on the medical floor he is alert and oriented x 3 in no apparent distress there is no fever or chills no headache or dizziness no chest pain no shortness of breath no cough no nausea or vomiting no abdominal pain no diarrhea and no urinary symptoms, he received LSO brace, he was cleared for discharge to half-way for rehab. Blood pressure today is 116/76 medication were reviewed. We will follow patient at medical [place] for further evaluation and treatment. Plan is for readmission in 2 to 3 weeks for colon surgery Patient Condition at Discharge: Fair Plan - Discharge Summary Discharge Rx Participant: No New Discharge Prescriptions: New Amiodarone [Cordarone] 200 mg PO BID tab Docusate [Colace] 100 mg PO BID cap Apixaban [Eliquis] 2.5 mg PO BID #0 tab Sacubitril/Valsartan [Entresto 24 mg-26 mg Tablet] 1 each PO BID tab Dapagliflozin Propanediol [Farxiga] 10 mg PO DAILY tab Furosemide [Lasix] 20 mg PO DAILY tab Temazepam [Restoril] 7.5 mg PO HS 3 Days #3 cap Continue Sertraline HCl [Zoloft] 200 mg PO DAILY Acetaminophen Tab [Tylenol] 1,000 mg PO HS Metoprolol Tartrate [Lopressor] 25 mg PO BID Discontinued Temazepam [Restoril] 30 mg PO HS Furosemide [Lasix] 40 mg PO DAILY No Action Apixaban [Eliquis] 5 mg PO BID #60 tab Discharge Medication List Sertraline HCl [Zoloft] 200 mg PO DAILY 10/30/13 [History] Apixaban [Eliquis] 5 mg PO BID #60 tab 06/12/18 [Rx] Acetaminophen Tab [Tylenol] 1,000 mg PO HS 08/08/18 [History] Metoprolol Tartrate [Lopressor] 25 mg PO BID 07/01/21 [History] Amiodarone [Cordarone] 200 mg PO BID tab 12/05/23 [Rx] Apixaban [Eliquis] 2.5 mg PO BID #0 tab 12/05/23 [Rx] Dapagliflozin Propanediol [Farxiga] 10 mg PO DAILY tab 12/05/23 [Rx] Docusate [Colace] 100 mg PO BID cap 12/05/23 [Rx] Furosemide [Lasix] 20 mg PO DAILY tab 12/05/23 [Rx] Sacubitril/Valsartan [Entresto 24 mg-26 mg Tablet] 1 each PO BID tab 12/05/23 [Rx] Temazepam [Restoril] 7.5 mg PO HS 3 Days #3 cap 12/05/23 [Rx] Follow up Appointment(s)/Referral(s): Basilio Reece [STAFF PHYSICIAN] - 2 Weeks Alistair Aaron PAC [PHYSICIAN STEM PROCESSING MACHINE OPERATOR] - 3 Weeks (Patient may follow-up with Alistair Aaron PA-C or Dr. Ryan Edwards at [facility] in 2-3 weeks following discharge. ) Florence Dsouza MD [STAFF PHYSICIAN] - 12/17/23 1:00 pm Juan C Beltran MD [Primary Care Provider] - 1-2 days Mark Chavez [NON-STAFF] - 1 Week Patient Instructions/Handouts: High Protein Diet (GEN), Level 2 National Dysphagia Diet (GEN) Activity/Diet/Wound Care/Special Instructions: Ground diet, dysphagia 2 with high-protein target 100 g daily. Close follow-up office with Dr. Dsouza. 1. Patient may wear LSO brace for comfort and support while sitting upright at greater than 45, while working with therapy, and while ambulating; patient does not have to wear the brace while lying in bed or bathing 2. Patient should avoid excessive bending, twisting, and lifting; no lifting greater than 10 pounds
[2023-12-05 14:12] VITALS: BP 79/47; PULSE 54; RESP 17; TEMP 97.5
== END 2023-12-05 16:58 | DRG 309 ==
LOC: EC 15:27 → 6NMEDSUR 18:46 → 1SOBS 19:51 → OBSVTOIN 11-25 14:30 → 6NMEDSUR 11-26 19:28
PROVIDERS: ADMIT Internal Medicine; ATTEND Internal Medicine
PROC: 4B02XTZ Measurement of Cardiac Defibrillator, External Approach (ICD-10-PCS; 2023-11-28)
PROC: B246ZZ4 Ultrasonography of Right and Left Heart, Transesophageal (ICD-10-PCS; 2023-11-28)
PROC: 5A2204Z Restoration of Cardiac Rhythm, Single (ICD-10-PCS; principal; 2023-11-28 10:00)
DX: I48.0 Paroxysmal atrial fibrillation (principal); C18.2 Malignant neoplasm of ascending colon; S32.030A Wedge compression fracture of third lumbar vertebra, initial encounter for closed fracture; C18.9 Malignant neoplasm of colon, unspecified; M48.56XA Collapsed vertebra, not elsewhere classified, lumbar region, initial encounter for fracture; Q21.11 Secundum atrial septal defect; E44.0 Moderate protein-calorie malnutrition; D61.818 Other pancytopenia; R53.1 Weakness; Z86.73 Personal history of transient ischemic attack (TIA), and cerebral infarction without residual deficits; I10 Essential (primary) hypertension; E78.5 Hyperlipidemia, unspecified; M19.90 Unspecified osteoarthritis, unspecified site; N40.0 Benign prostatic hyperplasia without lower urinary tract symptoms; R91.1 Solitary pulmonary nodule; I27.20 Pulmonary hypertension, unspecified; R53.81 Other malaise; K74.60 Unspecified cirrhosis of liver; I11.0 Hypertensive heart disease with heart failure; I50.9 Heart failure, unspecified; M47.816 Spondylosis without myelopathy or radiculopathy, lumbar region; M50.30 Other cervical disc degeneration, unspecified cervical region; I07.1 Rheumatic tricuspid insufficiency; I08.3 Combined rheumatic disorders of mitral, aortic and tricuspid valves; M47.896 Other spondylosis, lumbar region; I08.2 Rheumatic disorders of both aortic and tricuspid valves; M48.061 Spinal stenosis, lumbar region without neurogenic claudication; I42.8 Other cardiomyopathies; I25.10 Atherosclerotic heart disease of native coronary artery without angina pectoris; H91.90 Unspecified hearing loss, unspecified ear; F41.9 Anxiety disorder, unspecified; Z79.899 Other long term (current) drug therapy; Z79.01 Long term (current) use of anticoagulants; Z85.038 Personal history of other malignant neoplasm of large intestine; Z87.442 Personal history of urinary calculi; Z87.891 Personal history of nicotine dependence; Z96.653 Presence of artificial knee joint, bilateral; Z88.5 Allergy status to narcotic agent; Z88.0 Allergy status to penicillin; Z88.8 Allergy status to other drugs, medicaments and biological substances; Z87.19 Personal history of other diseases of the digestive system; Z98.42 Cataract extraction status, left eye; Z98.41 Cataract extraction status, right eye
CPT/HCPCS: 36415; 71046; 72130; 72133; 72141; 72158; 80053; 81003; 82607; 82728; 82747; 83540; 83550; 83605; 83735; 83880; 83921; 84443; 84484; 85025; 85610; 85730; 92960; 93005; 93306; 93312; 93320; 93325; 94760; 96360; 96361; 99285

== ENCOUNTER 2023-12-25 14:13 | Inpatient (IN) | payer MEDICARE ==
--- NOTE | 2023-12-25 14:59 | XR ---
EXAMINATION TYPE: XR chest 1V DATE OF EXAM: 12/25/2023 2:49 PM COMPARISON: Chest radiographs from 12/03/2023 CLINICAL INDICATION: Male, 83 years old with history of pre-op spine surgery. TECHNIQUE: XR chest 1V Frontal view of the chest. FINDINGS: Lungs/Pleura: There is no evidence of pleural effusion, focal consolidation, or pneumothorax. Pulmonary vascularity: Unremarkable. Heart/mediastinum: Cardiomediastinal silhouette is unremarkable. Musculoskeletal: No acute osseous pathology. Shoulder arthroplasty appears intact. Other findings: None IMPRESSION: No acute cardiopulmonary disease/process. [facility], , 12/25/2023 2:57 PM
[2023-12-25 15:11] LABS: Basophils % (A) 0 %; Eosinophils # (A) 0.1 k/uL (0-0.7); Eosinophils % (A) 2 %; HCT 45.2 % (39.0-53.0); HGB 14.3 gm/dL (13.0-17.5); Hypochromasia Moderate; Lymphocytes # (A) 0.8 k/uL (1.0-4.8); Lymphocytes % (A) 12 %; MCH 32.1 pg (25.0-35.0); MCHC 31.5 g/dL (31.0-37.0); MCV 101.7 fL (80.0-100.0); Macrocytosis Slight; Mean Platelet Volume 8.6; Monocytes # (A) 0.5 k/uL (0-1.0); Monocytes % (A) 6 %; Neutrophils # (A) 5.7 k/uL (1.3-7.7); Neutrophils % (A) 79 %; Platelet Count 147 k/uL (150-450); RBC 4.44 m/uL (4.30-5.90); RDW 15.3 % (11.5-15.5); WBC 7.3 k/uL (3.8-10.6)
--- NOTE | 2023-12-25 15:11 | ED ---
General Adult HPI - General Chief complaint: Recheck/Abnormal Lab/Rx Stated complaint: Back injury,Alexander leg issue Time Seen by Provider: 12/25/23 14:24 Source: patient, RN notes reviewed Mode of arrival: wheelchair Limitations: no limitations - History of Present Illness Initial comments: 83-year-old male presents emergency department from Dr. Whiteside's's office for admission. Patient states he had a fall in October in which she had MRI showing fracture of his back. Patient states he continues to have issues he states that he is unable to ambulate he has been at rehab trying to improve but states that he still cannot walk. He states he has bilateral leg weakness. Denies any bowel complaint and cons retention. - Related Data Home Medications Medication Instructions Recorded Confirmed Sertraline HCl [Zoloft] 200 mg PO DAILY 10/30/13 11/24/23 Acetaminophen Tab [Tylenol] 1,000 mg PO HS 08/08/18 11/24/23 Metoprolol Tartrate [Lopressor] 25 mg PO BID 07/01/21 11/24/23 Previous Rx's Medication Instructions Recorded Apixaban [Eliquis] 5 mg PO BID #60 tab 06/12/18 Amiodarone [Cordarone] 200 mg PO BID tab 12/05/23 Apixaban [Eliquis] 2.5 mg PO BID #0 tab 12/05/23 Dapagliflozin Propanediol [Farxiga] 10 mg PO DAILY tab 12/05/23 Docusate [Colace] 100 mg PO BID cap 12/05/23 Furosemide [Lasix] 20 mg PO DAILY tab 12/05/23 Sacubitril/Valsartan [Entresto 24 1 each PO BID tab 12/05/23 mg-26 mg Tablet] Temazepam [Restoril] 7.5 mg PO HS 3 Days #3 cap 12/05/23 Allergies Allergy/AdvReac Type Severity Reaction Status Date / Time hydrocodone [From Lortab] Allergy SEVERE Verified 12/25/23 14:20 ABDOMINAL AND TROUBLE BREATHING hydrocodone bitartrate Allergy Anaphylaxis Verified 12/25/23 14:20 [From Vicodin] Penicillins Allergy Anaphylaxis Verified 12/25/23 14:20 propoxyphene napsylate Allergy Anaphylaxis Verified 12/25/23 14:20 [From Darvocet-N 100] tamsulosin HCl [From Flomax] Allergy Anaphylaxis Verified 12/25/23 14:20 Review of Systems ROS Statement: Those systems with pertinent positive or pertinent negative responses have been documented in the HPI. ROS Other: All systems not noted in ROS Statement are negative. Past Medical History Past Medical History: Atrial Fibrillation, CVA/TIA, GERD/Reflux, Hearing Disorder / Deafness, Hyperlipidemia, Osteoarthritis (OA), Prostate Disorder Additional Past Medical History / Comment(s): Tinnitus, Hx kidney stones, BPH, LUNG SCARRING. 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 History of Any Multi-Drug Resistant Organisms: None Reported Past Surgical History: Adenoidectomy, Ear Surgery, Heart Catheterization, Joint Replacement, Tonsillectomy Additional Past Surgical History / Comment(s): Oral surgery, alexander knee replacements, partial thyroidectomy, alexander cataracts. EGD, COLONOSCOPY cardioversion Past Anesthesia/Blood Transfusion Reactions: No Reported Reaction Past Psychological History: Anxiety Smoking Status: Former smoker Past Alcohol Use History: None Reported Past Drug Use History: None Reported - Past Family History Mother Family Medical History: No Reported History Additional Family Medical History / Comment(s): . General Exam Limitations: no limitations General appearance: alert, in no apparent distress Head exam: Present: atraumatic, normocephalic, normal inspection Eye exam: Present: normal appearance, PERRL, EOMI. Absent: scleral icterus, conjunctival injection, periorbital swelling ENT exam: Present: normal exam, normal oropharynx, mucous membranes moist Neck exam: Present: normal inspection, full ROM. Absent: tenderness, m eningismus, lymphadenopathy Respiratory exam: Present: normal lung sounds bilaterally. Absent: respiratory distress, wheezes, rales, rhonchi, stridor Cardiovascular Exam: Present: regular rate, normal rhythm, normal heart sounds. Absent: systolic murmur, diastolic murmur, rubs, gallop, clicks Extremities exam: Present: normal inspection, normal capillary refill. Absent: full ROM (Lower extremity extremity weakness), tenderness, pedal edema, joint swelling, calf tenderness Neurological exam: Present: alert, oriented X3, reflexes normal. Absent: motor sensory deficit Skin exam: Present: warm, dry, intact, normal color. Absent: rash Course Vital Signs 12/25/23 12/25/23 14:17 15:10 Temperature 97.4 F L 97.7 F Pulse Rate 96 96 Respiratory 20 20 Rate Blood Pressure 123/58 109/70 O2 Sat by Pulse 97 95 Oximetry EKG Findings - EKG Comments: EKG Findings:: EKG performed at 15: 18 sinus rhythm first-degree block rate of 96 NM 212 QRS 2117 QT/QTc 350/407 - EKG Results: EKG: interpreted by [facility] Medical Decision Making - Medical Decision Making Was pt. sent in by a medical professional or institution (, PA, CEMETERY COUNSELOR, urgent care, hospital, or usp...) When possible be specific @ -No Did you speak to anyone other than the patient for history (EMS, parent, family, police, friend...)? What history was obtained from this source @ -No Did you review nursing and triage notes (agree or disagree)? Why? @ -I reviewed and agree with nursing and triage notes Were old charts reviewed (outside hosp., previous admission, EMS record, old EK G, old radiological studies, urgent care reports/EKG's, usp records)? Report findings @ -No old charts were reviewed Differential Diagnosis (chest pain, altered mental status, abdominal pain women, abdominal pain men, vaginal bleeding, weakness, fever, dyspnea, syncope, headache, dizziness, GI bleed, back pain, seizure, CVA, palpatations, mental health, musculoskeletal)? @ -Differential Back Pain: Strain, zoster, cauda equina syndrome, epidural abscess, vertebral osteomyelitis, discitis, fracture, subluxation, disc herniation, DJD, spinal stenosis, dissection, AAA, pancreatitis, peptic ulcer disease, pyelonephritis, kidney stone, this is not meant to be an all-inclusive list. EKG interpreted by me (3pts min.). @ -As above X-rays interpreted by me (1pt min.). @ -Chest x-ray 1 view shows no acute cardiopulmonary process CT interpreted by me (1pt min.). @ -None done U/S interpreted by me (1pt. min.). @ -None done What testing was considered but not performed or refused? (CT, X-rays, U/S, labs)? Why? @ -None What meds were considered but not given or refused? Why? @ -None Did you discuss the management of the patient with other professionals (professionals i.e. , PA, CEMETERY COUNSELOR, lab, RT, psych nurse, clinical social worker, commercial drone software developer, teacher, intelligence officer basic, case coordinator)? Give summary @ -Dr. Ashton for admission, Dr. Beltran for medicine consult Was smoking cessation discussed for >3mins.? @ -No Was critical care preformed (if so, how long)? @ -No Were there social determinants of health that impacted care today? How? (Homelessness, low income, unemployed, alcoholism, drug addiction, transportation, low edu. Level, literacy, decrease access to med. care, half-way, rehab)? @ -No Was there de-escalation of care discussed even if they declined (Discuss DNR or withdrawal of care, Hospice)? DNR status @ -No What co-morbidities impacted this encounter? (DM, HTN, Smoking, COPD, CAD, Cancer, CVA, ARF, Chemo, Hep., AIDS, mental health diagnosis, sleep apnea, morbid obesity)? @ -None Was patient admitted / discharged? Hospital course, mention meds given and route, prescriptions, significant lab abnormalities, going to OR and other pertinent info. @ -Admitted to Dr. Ashton for surgery. Undiagnosed new problem with uncertain prognosis? @ -No Drug Therapy requiring intensive monitoring for toxicity (Heparin, Nitro, Insulin, Cardizem)? @ -No Were any procedures done? @ -No Diagnosis/symptom? @ -Lumbar compression fracture Acute, or Chronic, or Acute on Chronic? @ -Acute Uncomplicated (without systemic symptoms) or Complicated (systemic symptoms)? @ -Complicated Side effects of treatment? @ -No Exacerbation, Progression, or Severe Exacerbation? @ -No Poses a threat to life or bodily function? How? (Chest pain, USA, NC, pneumonia, PE, COPD, DKA, ARF, appy, cholecystitis, CVA, Diverticulitis, Homicidal, Suicidal, threat to staff... and all critical care pts) @ -No - Lab Data Result diagrams: 12/25/23 15:00 12/25/23 15:00 Lab Results 12/25/23 12/25/23 12/25/23 Range/Units 15:00 15:00 15:00 WBC 7.3 (3.8-10.6) k/uL RBC 4.44 (4.30-5.90) m/uL Hgb 14.3 (13.0-17.5) gm/dL Hct 45.2 (39.0-53.0) % MCV 101.7 H (80.0-100.0) fL MCH 32.1 (25.0-35.0) pg MCHC 31.5 (31.0-37.0) g/dL RDW 15.3 (11.5-15.5) % Plt Count 147 L (150-450) k/uL MPV 8.6 Neutrophils % 79 % Lymphocytes % 12 % Monocytes % 6 % Eosinophils % 2 % Basophils % 0 % Neutrophils # 5.7 (1.3-7.7) k/uL Lymphocytes # 0.8 L (1.0-4.8) k/uL Monocytes # 0.5 (0-1.0) k/uL Eosinophils # 0.1 (0-0.7) k/uL Basophils # 0.0 (0-0.2) k/uL Hypochromasia Moderate Macrocytosis Slight PT 10.5 (10.0-12.5) sec INR 1.0 (<1.2) APTT 25.0 (22.0-30.0) sec Sodium 136 L (137-145) mmol/L Potassium 4.9 (3.5-5.1) mmol/L Chloride 103 (98-107) mmol/L Carbon Dioxide 28 (22-30) mmol/L Anion Gap 5 mmol/L BUN 44 H (9-20) mg/dL Creatinine 1.32 H (0.66-1.25) mg/dL Est GFR (CKD-EPI)AfAm 58 (>60 ml/min/1.73 sqM) Est GFR (CKD-EPI)NonAf 50 (>60 ml/min/1.73 sqM) Glucose 94 (74-99) mg/dL Calcium 8.9 (8.4-10.2) mg/dL Magnesium 2.1 (1.6-2.3) mg/dL Total Bilirubin 0.9 (0.2-1.3) mg/dL AST 30 (17-59) U/L ALT 21 (4-49) U/L Alkaline Phosphatase 82 (38-126) U/L Total Protein 6.5 (6.3-8.2) g/dL Albumin 3.9 (3.5-5.0) g/dL - EKG Data -: EKG Interpreted by Me Disposition Clinical Impression: Lumbar compression fracture, Unable to ambulate Disposition: ADMITTED IP TO THIS HOSP Condition: Fair Referrals: Juan C Beltran MD [Primary Care Provider] - 1-2 days Time of Disposition: 15:12
[2023-12-25] MEDS ORDERED: NALOXONE 0.4 MG/ML 1 ML VIAL IV PRN (15:12)
[2023-12-25 15:23] LABS: Prothrombin Time 10.5 sec (10.0-12.5)
[2023-12-25 15:28] LABS: ALT 21 U/L (4-49); AST 30 U/L (17-59); African American GFR (CKD) 58 (>60 ml/min/1.73 sqM); Albumin 3.9 g/dL (3.5-5.0); Alkaline Phosphatase 82 U/L (38-126); Anion Gap 5 mmol/L; Blood Urea Nitrogen 44 mg/dL (9-20); Calcium 8.9 mg/dL (8.4-10.2); Carbon Dioxide 28 mmol/L (22-30); Chloride 103 mmol/L (98-107); Glucose 94 mg/dL (74-99); Magnesium 2.1 mg/dL (1.6-2.3); Non-African American GFR(CKD) 50 (>60 ml/min/1.73 sqM); Potassium 4.9 mmol/L (3.5-5.1); Sodium 136 mmol/L (137-145); Total Bilirubin 0.9 mg/dL (0.2-1.3); Total Protein 6.5 g/dL (6.3-8.2)
[2023-12-25 15:36] LABS: Appearance,Urine Cloudy (Clear); Bacteria,Urine Many /hpf; Bilirubin,Urine Negative (Negative); Blood,Urine Large (Negative); Color,Urine Colorless; Glucose,Urine (UA) Negative (Negative); Ketones,Urine Negative (Negative); Leukocyte Esterase,Urine Large (Negative); Nitrite,Urine Positive (Negative); Protein,Urine Trace (Negative); RBC,Urine 119 /hpf (0-5); Specific Gravity,Urine 1.013 (1.001-1.035); Squamous Epithelial Cell,Urine <1 /hpf (0-4); Urobilinogen,Urine <2.0 mg/dL (<2.0); WBC,Urine >182 /hpf (0-5)
--- NOTE | 2023-12-25 20:50 | P.HPOR ---
History of Present Illness H&P Date: 12/25/23 Chief Complaint: Back pain, leg weakness 83 yo male presented for follow up in my office for his low back pain. He is known to me as is his as she needed surgery on her back as well. states he sustained a fall back around 11/25/23 when he was admitted to the hospital for generalized weakness as well as diarrhea and weakness in his legs. At the time he was being worked up for both his cervical spine and his low back. His C spine does have some stenosis, but nothing so severe as to cause his issues. He does unfortunately have a new diagnosis of colon cancer and was scheduled for surgery with Dr. Dsouza for this on the of this month. He since then has had progressive weakness in his LE. He has been unable to ambulate. When I saw him in office back in September, he was ambulating under his own power without any issues. Now, he is wheelchair bound and unable to lift up his RLE except against gravity and even that is becoming difficult. states that this recent fall caused him to have more issues. It is unclear the situation surrounding this or how it happened. He did get MRI of his C and L spine at last visit and recently a CT scan of his Lumbar spine. He has severe low back pain that is getting worse. He states that the pain travels down his legs R>L and radiates up and down his back. He states no bowel or bladder incontinence, but his habits have changed significantly as of late presumably due to the colon cancer found. He denies any other trauma to the area. Denies any f/c/sob/cp at this time. Review of Systems 16 point ROS completed and as stated in HPI. All other systems reviewed nega tive. Past Medical History Past Medical History: Atrial Fibrillation, CVA/TIA, GERD/Reflux, Hearing Disorder / Deafness, Hyperlipidemia, Osteoarthritis (OA), Prostate Disorder Additional Past Medical History / Comment(s): Tinnitus, Hx kidney stones, BPH, LUNG SCARRING. TOLD ON CT SCAN HX "COUPLE MINI STROKES.", diverticulitis, thr ombocytopenia due to splenic sequestration secondary to liver disease recent weight loss of more than 100 lbs, extremely weak, incont of stool and urine. History of Any Multi-Drug Resistant Organisms: None Reported Past Surgical History: Adenoidectomy, Ear Surgery, Heart Catheterization, Joint Replacement, Tonsillectomy Additional Past Surgical History / Comment(s): Oral surgery, diana knee replacements, partial thyroidectomy, diana cataracts. EGD, COLONOSCOPY cardioversion Past Anesthesia/Blood Transfusion Reactions: No Reported Reaction Past Psychological History: Anxiety Smoking Status: Former smoker Past Alcohol Use History: None Reported Additional Past Alcohol Use History / Comment(s): quit smoking 1986, started smoking age 17 Past Drug Use History: None Reported - Past Family History Mother Family Medical History: No Reported History Additional Family Medical History / Comment(s): . Medications and Allergies Home Medications Medication Instructions Recorded Confirmed Type Sertraline HCl [Zoloft] 200 mg PO DAILY 10/30/13 12/25/23 History Acetaminophen Tab [Tylenol] 1,000 mg PO HS 08/08/18 12/25/23 History Metoprolol Tartrate [Lopressor] 25 mg PO BID 07/01/21 12/25/23 History Amiodarone [Cordarone] 200 mg PO BID tab 12/05/23 12/25/23 Rx Apixaban [Eliquis] 2.5 mg PO BID #0 tab 12/05/23 12/25/23 Rx Dapagliflozin Propanediol [Farxiga] 10 mg PO DAILY tab 12/05/23 12/25/23 Rx Docusate [Colace] 100 mg PO BID cap 12/05/23 12/25/23 Rx Furosemide [Lasix] 20 mg PO DAILY tab 12/05/23 12/25/23 Rx Sacubitril/Valsartan [Entresto 24 1 tab PO BID 12/25/23 12/25/23 History mg-26 mg Tablet] Temazepam [Restoril] 7.5 mg PO HS 12/25/23 12/25/23 History guaiFENesin SYRUP 100MG/5ML 200 mg PO Q4H PRN 12/25/23 12/25/23 History [Robitussin] Allergies Allergy/AdvReac Type Severity Reaction Status Date / Time hydrocodone [From Lortab] Allergy SEVERE Verified 12/25/23 15:48 ABDOMINAL AND TROUBLE BREATHING hydrocodone bitartrate Allergy Anaphylaxis Verified 12/25/23 15:48 [From Vicodin] Penicillins Allergy Anaphylaxis Verified 12/25/23 15:48 propoxyphene napsylate Allergy Anaphylaxis Verified 12/25/23 15:48 [From Darvocet-N 100] tamsulosin HCl [From Flomax] Allergy Anaphylaxis Verified 12/25/23 15:48 Physical Examination Osteopathic Statement: *. No significant issues noted on an osteopathic structural exam other than those noted in the History and Physical/Consult. Red Flag Screening * Bowel/Bladder Changes * Saddle Anesthesia * Progressive Neurological Deficits * Constitutional Symptoms * Night Pain/Night Symptoms * Unexplained Weight Loss * Fever/Chills General Assessment General Appearance: Well nourished; In distress and pain; wheelchair bound Mental Status: AOX3 Ambulation: Cannot at this time. Wheelchair only. Spine Examination Inspection -Pain with movement. -Alignment is SAG++; SVA++ due to fracture and mobility Palpation -TTP of the midline of the lumbar spine as well as paraspinal around the L3 L4 and L5 region -Pain with any motion of the spine Range of Motion (Measured in Degrees) Cervical: -ROM able, no pain at this time. Thoracolumbar: -Unable to due to pain at this time. LSO in place. Neurological Examination Motor Strength (0-5/5) [DETAILED MYOTOMAL TESTING] Upper Extremities: -Generalized weakness. C5-T1 shows 4-/5 strength overall without focal deficits at this time. Lower Extremities: -RLE: 2-3/5 HF/KE/KF/DF/PF/EHL/FHL at this time significantly decreased from baseline -LLE: 3-4-/5 HF/KE/KF/DF/PF/EHL/FHL Sensation (0-2) [DETAILED DERMATOMAL TESTING] -Dermatomal deficits in L2-3, L3-4 on the right with paresthesias in b/l LE glob al Reflexes (0-4+) Upper Extremities: -2/4 all at this time. No hyperreflexia Lower Extremities: -Globally diminished 1/4 Special Tests -Casas's: NEG Babinski: NEG Clonus: NEG Straight Leg Raise: ++RIGHT Crossed SLR: POS Femoral Stretch: ++RIGHT Spurling's: POS Upper Limb Tension: NEG Functional Testing -unable due to wheelchair bound at this time. Unable to stand under his own power. Significant decline. Results MRI and CT from previous visit are reviewed as well as XR. These demonstrate several fractures of the lumbar spine. He has a hx of L4 Kyphoplasty done at OSH which is stable at this time. There is L2-3 AO type B3 hyperextension injury to the lumbar spine with fishmouthing anteriorly and displacement through an ankylosed spine. This is an extremly unstable fracture given the nature as well as the superimposed AO type A4 burst fracture of L3 noted and in the setting of an ankylosed spine. There is stenosis related to retropulsion of the superior portion of L3 into the central canal causing moderate to severe stenosis as well as b/l foraminal stenosis due to severe spondylosis noted through the lumbar spine. No other lesions noted of the lumbar spine. Previous surgery mentioned. ANkylosis of the thoracolumbar spine noted. - Labs Labs: Abnormal Lab Results - Last 24 Hours (Table) 12/25/23 12/25/23 12/25/23 Range/Units 15:00 15:00 15:10 MCV 101.7 H (80.0-100.0) fL Plt Count 147 L (150-450) k/uL Lymphocytes # 0.8 L (1.0-4.8) k/uL Sodium 136 L (137-145) mmol/L BUN 44 H (9-20) mg/dL Creatinine 1.32 H (0.66-1.25) mg/dL Urine Protein Trace H (Negative) Urine Blood Large H (Negative) Ur Leukocyte Esterase Large H (Negative) Urine RBC 119 H (0-5) /hpf Urine WBC >182 H (0-5) /hpf Urine Bacteria Many H (None) /hpf H & H 12/25/23 Range/Units 15:00 Hgb 14.3 (13.0-17.5) gm/dL Hct 45.2 (39.0-53.0) % Coagulation 12/25/23 Range/Units 15:00 INR 1.0 (<1.2) Result Diagrams: 12/25/23 15:00 12/25/23 15:00 Assessment and Plan Assessment: 1. L2-3 AO TYPE B3 HYPEREXTENSION INJURY, UNSTABLE, IN AN ANKYLOSED SPINE 2. L3 AO TYPE A4 BURST FRACTURE 3. CHRONIC L4 AO TYPE A3 FRACTURE S/P KYPHOPLASTY 4. LUMBAR STENOSIS, MODERATE TO SEVERE RELATED TO 1-3 5. SEVERE LOW BACK PAIN 6. LE WEAKNESS WITH PARAPLEGIA 7. COMPLEX MEDICAL PATIENT Plan: -ADMIT TO SPINE SERVICE -BED REST -TURN Q2 -REG DIET UNTIL SATURDAY [place] -PAIN CONTROL PRN -[facility] -MEDICAL CLEARANCE FOR OR Saturday12/27/23 -NPO 12/27/23 @[place] -ANCEF WBD FOR OR -TXA 2 G TO OR -PLAN FOR OR Saturday12/27/23 FOR OPEN TREATMENT L2-3 FRACTURE WITH STABILIZATION L1-S1 AND DECOMPRESSION L2-4
[2023-12-25 20:56] LABS: Glucose,Whole Blood 93 mg/dL (70-110)
[2023-12-25] MEDS: ACETAMINOPHEN TAB 500 MG TAB PO SCH (21:34)
[2023-12-25] MEDS: AMIODARONE 200 MG TAB PO SCH (21:37)
[2023-12-25] MEDS: DOCUSATE 100 MG CAP PO SCH (21:37)
[2023-12-25] MEDS: METOPROLOL TARTRATE 25 MG TAB PO SCH (21:37)
[2023-12-25] MEDS: SACUBITRIL/VALSARTAN 24 MG-26 MG TABLET PO SCH (21:37)
[2023-12-25] MEDS: TEMAZEPAM 7.5 MG CAP PO SCH (23:57)
[2023-12-26 06:48] LABS: Glucose,Whole Blood 94 mg/dL (70-110)
[2023-12-26] MEDS: SERTRALINE 100 MG TAB PO SCH (08:44)
[2023-12-26] MEDS: FUROSEMIDE 20 MG TAB PO SCH (08:44)
[2023-12-26] MEDS: DAPAGLIFLOZIN PROPANEDIOL 10 MG TABLET PO SCH (08:44)
--- NOTE | 2023-12-26 10:12 | P.PN ---
Subjective Progress Note Date: 12/26/23 Principal diagnosis: 1. L2-3 AO TYPE B3 HYPEREXTENSION INJURY, UNSTABLE, IN AN ANKYLOSED SPINE 2. L3 AO TYPE A4 BURST FRACTURE 3. CHRONIC L4 AO TYPE A3 FRACTURE S/P KYPHOPLASTY 4. LUMBAR STENOSIS, MODERATE TO SEVERE RELATED TO 1-3 5. SEVERE LOW BACK PAIN 6. LE WEAKNESS WITH PARAPLEGIA 7. COMPLEX MEDICAL PATIENT Patient was seen at bedside this morning lying in the semirecumbent position on 4 S. Patient says he did present to Dr. Durham in office yesterday and was a direct admission to the hospital with surgery planned for tomorrow, 12/27/2023. Patient says he does not have any new issues since his office visit yesterday. Denies any saddle anesthesia/bowel or bladder incontinence. Patient does mention he has intense back pain with radiation but down both legs the right being worse than the left. Patient denies any other significant issues at this time. Objective - Vital Signs Vital signs: Vital Signs Temp 97.8 F 12/26/23 07:11 Pulse 92 12/26/23 07:11 Resp 16 12/26/23 07:14 BP 101/68 12/26/23 07:11 Pulse Ox 91 L 12/26/23 02:00 FiO2 Intake & Output 12/25/23 12/26/23 12/26/23 18:59 06:59 18:59 Output Total 60 700 Balance -60 -700 Weight 108.409 kg Output: Urine 60 700 Male - External 60 Other: Voiding Method External Catheter - Exam General Appearance: Well nourished; In distress and pain; wheelchair bound Mental Status: AOX3 Ambulation: Cannot at this time. Wheelchair only. Spine Examination Inspection -Pain with movement. -Alignment is SAG++; SVA++ due to fracture and mobility Palpation -TTP of the midline of the lumbar spine as well as paraspinal around the L3 L4 and L5 region -Pain with any motion of the spine Range of Motion (Measured in Degrees) Cervical: -ROM able, no pain at this time. Thoracolumbar: -Unable to due to pain at this time. LSO in place. Neurological Examination Motor Strength (0-5/5) [DETAILED MYOTOMAL TESTING] Upper Extremities: -Generalized weakness. C5-T1 shows 4-/5 strength overall without focal deficits at this time. Lower Extremities: -RLE: 2-3/5 HF/KE/KF/DF/PF/EHL/FHL at this time significantly decreased from baseline -LLE: 3-4-/5 HF/KE/KF/DF/PF/EHL/FHL Sensation (0-2) [DETAILED DERMATOMAL TESTING] -Dermatomal deficits in L2-3, L3-4 on the right with paresthesias in b/l LE global Reflexes (0-4+) Upper Extremities: -2/4 all at this time. No hyperreflexia Lower Extremities: -Globally diminished 1/4 Special Tests -Casas's: NEG Babinski: NEG Clonus: NEG Straight Leg Raise: ++RIGHT Crossed SLR: POS Femoral Stretch: ++RIGHT Spurling's: POS Upper Limb Tension: NEG - Labs CBC & Chem 7: 12/25/23 15:00 12/25/23 15:00 Labs: Abnormal Lab Results - Last 24 Hours (Table) 12/25/23 12/25/23 12/25/23 Range/Units 15:00 15:00 15:10 MCV 101.7 H (80.0-100.0) fL Plt Count 147 L (150-450) k/uL Lymphocytes # 0.8 L (1.0-4.8) k/uL Sodium 136 L (137-145) mmol/L BUN 44 H (9-20) mg/dL Creatinine 1.32 H (0.66-1.25) mg/dL Urine Protein Trace H (Negative) Urine Blood Large H (Negative) Ur Leukocyte Esterase Large H (Negative) Urine RBC 119 H (0-5) /hpf Urine WBC >182 H (0-5) /hpf Urine Bacteria Many H (None) /hpf Assessment and Plan Assessment: 1. L2-3 AO TYPE B3 HYPEREXTENSION INJURY, UNSTABLE, IN AN ANKYLOSED SPINE 2. L3 AO TYPE A4 BURST FRACTURE 3. CHRONIC L4 AO TYPE A3 FRACTURE S/P KYPHOPLASTY 4. LUMBAR STENOSIS, MODERATE TO SEVERE RELATED TO 1-3 5. SEVERE LOW BACK PAIN 6. LE WEAKNESS WITH PARAPLEGIA 7. COMPLEX MEDICAL PATIENT Plan: 1. L2-3 AO TYPE B3 HYPEREXTENSION INJURY, UNSTABLE, IN AN ANKYLOSED SPINE; L3 AO TYPE A4 BURST FRACTURE; CHRONIC L4 AO TYPE A3 FRACTURE S/P KYPHOPLASTY; LUMBAR STENOSIS, MODERATE TO SEVERE RELATED TO 1-3; SEVERE LOW BACK PAIN; LE WEAKNESS WITH PARAPLEGIA -patient stable at bedside this morning. Patient to be n.p.o. at midnight tonight. Surgery has been scheduled for tomorrow, 12/27/2023open treatment L2-3 fracture with stabilization L1-S1 and decompression L2-L4. Withhold blood thinners at this time. Pain medication as needed. We will continue to follow patient during stay in hospital. 2. Appreciate medical management 3. Pain management - tylenol 4. DVT prophylaxis -with hold blood thinners at this time; bladimir weiner; scds 5. GI prophylaxis - colace 6. PT/OT recs 7. Encourage incentive spirometer use Time with Patient: Less than 30
[2023-12-26 11:30] LABS: Glucose,Whole Blood 94 mg/dL (70-110)
[2023-12-26] MEDS ORDERED: ZINC OXIDE PASTE (Z-GUARD) 1 APPLIC TOPICAL PRN (12:27)
[2023-12-26 13:44] VITALS: BMI 29.8
--- NOTE | 2023-12-26 16:35 | P.HPIM ---
History of Present Illness H&P Date: 12/26/23 Nick Vora, is an 83 year-old male who presented to [facility] emergency room with a chief complaint of back pain and bilateral lower extremity weakness, he was evaluated at Dr. Ashton's office and was sent to emergency room for admission. He was evaluated in the emergency room vital examination on presentation revealed a temperature of 97.4 pulse 96 respiration 20 blood pressure 123/58 pulse ox 97% on 2 L nasal cannula Laboratory data revealed a white blood count of 7.3 hemoglobin 14.3 platelet count 147 sodium 136 potassium 4.9 chloride 103 CO2 28 BUN 44 creatinine 1.32 urine analysis revealed evidence of urinary tract infection Testing in the emergency room revealed EKG done in the emergency room revealed sinus rhythm with first-degree AV block with poor R wave progression in anterior leads possible old infarction. Prior to admission patient had a CT scan of the lumbar spine which revealed compression deformity of L3 vertebral body, with moderate to severe spinal canal stenosis and mild to moderate neural foraminal stenosis, and moderate to severe canal stenosis at L4 and moderate to severe degeneration changes in the spine Patient was admitted to medical floor for further evaluation and treatment Past medical history is significant for history of atrial fibrillation maintained on Eliquis, history of hypertension, history of hyperlipidemia, history of osteoarthritis, history of benign prostatic hypertrophy, history of decreased hearing, history of recent colonoscopy with polypectomy on November 13, 2023, with pathology positive for invasive colonic adenocarcinoma, patient will need further surgical intervention on the colon when stable medically. On review of systems patient is alert and oriented x 3 in no apparent distress there is no fever or chills no headache or dizziness no chest pain no shortness of breath no cough no nausea or vomiting no abdominal pain no diarrhea no blood in the stools no burning with urination no frequency or urgency and no hematuria. Past Medical History Past Medical History: Atrial Fibrillation, CVA/TIA, GERD/Reflux, Hearing Disorder / Deafness, Hyperlipidemia, Osteoarthritis (OA), Prostate Disorder Additional Past Medical History / Comment(s): Tinnitus, Hx kidney stones, BPH, LUNG SCARRING. 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 History of Any Multi-Drug Resistant Organisms: None Reported Past Surgical History: Adenoidectomy, Ear Surgery, Heart Catheterization, Joint Replacement, Tonsillectomy Additional Past Surgical History / Comment(s): Oral surgery, diana knee replacements, partial thyroidectomy, diana cataracts. EGD, COLONOSCOPY cardioversion Past Anesthesia/Blood Transfusion Reactions: No Reported Reaction Past Psychological History: Anxiety Smoking Status: Former smoker Past Alcohol Use History: None Reported Additional Past Alcohol Use History / Comment(s): quit smoking 1986, started smoking age 17 Past Drug Use History: None Reported - Past Family History Mother Family Medical History: No Reported History Additional Family Medical History / Comment(s): . Medications and Allergies Home Medications Medication Instructions Recorded Confirmed Type RX: Sertraline HCl [Zoloft] 200 mg PO DAILY 10/30/13 12/25/23 History RX: Acetaminophen Tab [Tylenol] 1,000 mg PO HS 08/08/18 12/25/23 History RX: Metoprolol Tartrate [Lopressor] 25 mg PO BID 07/01/21 12/25/23 History RX: Amiodarone [Cordarone] 200 mg PO BID tab 12/05/23 12/25/23 Rx RX: Apixaban [Eliquis] 2.5 mg PO BID #0 tab 12/05/23 12/25/23 Rx RX: Dapagliflozin Propanediol 10 mg PO DAILY tab 12/05/23 12/25/23 Rx [Farxiga] RX: Docusate [Colace] 100 mg PO BID cap 12/05/23 12/25/23 Rx RX: Furosemide [Lasix] 20 mg PO DAILY tab 12/05/23 12/25/23 Rx RX: Sacubitril/Valsartan [Entresto 1 tab PO BID 12/25/23 12/25/23 History 24 mg-26 mg Tablet] Temazepam [Restoril] 7.5 mg PO HS 12/25/23 12/25/23 History guaiFENesin SYRUP 100MG/5ML 200 mg PO Q4H PRN 12/25/23 12/25/23 History [Robitussin] Allergies Allergy/AdvReac Type Severity Reaction Status Date / Time hydrocodone [From Lortab] Allergy SEVERE Verified 12/25/23 15:48 ABDOMINAL AND TROUBLE BREATHING hydrocodone bitartrate Allergy Anaphylaxis Verified 12/25/23 15:48 [From Vicodin] Penicillins Allergy Anaphylaxis Verified 12/25/23 15:48 propoxyphene napsylate Allergy Anaphylaxis Verified 12/25/23 15:48 [From Darvocet-N 100] tamsulosin HCl [From Flomax] Allergy Anaphylaxis Verified 12/25/23 15:48 Physical Exam Vitals: Vital Signs Temp Pulse Pulse Resp BP BP Pulse Ox 12/26/23 07:14 16 12/26/23 07:11 97.8 F 92 16 101/68 12/26/23 02:00 97.6 F 88 13 90/58 91 L 12/25/23 20:00 98.2 F 99 15 94/61 96 12/25/23 15:10 97.7 F 96 20 109/70 95 12/25/23 14:17 97.4 F L 96 20 123/58 97 Intake and Output 12/25/23 12/26/23 12/26/23 22:59 06:59 14:59 Output Total 60 700 Balance -60 -700 Output: Urine 60 700 Male - External 60 Other: Voiding Method External Catheter Weight 108.409 kg In general patient is alert and oriented x 3 in no distress HEENT head normocephalic and atraumatic Neck is supple no JVD no goiter no lymphadenopathy no carotid bruit Chest examination is clear to auscultation no crackles no wheezing Cardiac exam reveals regular heart sounds S1 and S2 no gallops no murmurs Abdomen is soft nontender no organomegaly with normal bowel sounds Extremity exam reveals no edema no cyanosis or clubbing Neurological examination reveals no gross focal deficits Results CBC & Chem 7: 12/25/23 15:00 12/25/23 15:00 Labs: Abnormal Lab Results - Last 24 Hours (Table) 12/25/23 12/25/23 12/25/23 Range/Units 15:00 15:00 15:10 MCV 101.7 H (80.0-100.0) fL Plt Count 147 L (150-450) k/uL Lymphocytes # 0.8 L (1.0-4.8) k/uL Sodium 136 L (137-145) mmol/L BUN 44 H (9-20) mg/dL Creatinine 1.32 H (0.66-1.25) mg/dL Urine Protein Trace H (Negative) Urine Blood Large H (Negative) Ur Leukocyte Esterase Large H (Negative) Urine RBC 119 H (0-5) /hpf Urine WBC >182 H (0-5) /hpf Urine Bacteria Many H (None) /hpf Thrombosis Risk Factor Assmnt - Choose All That Apply Any of the Below Risk Factors Present?: Yes Each Factor Represents 1 point: Obesity (BMI >25) Each Risk Factor Represents 2 Points: Patient confined to bed Each Risk Factor Represents 3 Points: Age 75 years or older Other congenital or acquired thrombophilia - If yes, enter type in comment: Yes Thrombosis Risk Factor Assessment Total Risk Factor Score: 6 Thrombosis Risk Factor Assessment Level: High Risk Assessment and Plan Plan: Low back pain with bilateral lower extremity weakness Evidence of urinary tract infection Underlying history of hypertension Underlying history of hyperlipidemia Underlying history of paroxysmal atrial fibrillation Underlying history of osteoarthritis Underlying history of benign prostatic hypertrophy Underlying history of decreased hearing Underlying history of invasive colonic adenocarcinoma patient will need surgical intervention in the near future At this time patient was seen and examined Home medications reviewed and reordered At this time will hold Eliquis in anticipation for surgical intervention DVT prophylaxis with SCD stockings Patient was started on IV ceftriaxone for urinary tract infection Patient is at increased surgical risk due to his multiple medical problems, however there is no medical contraindication for surgery Will continue to follow closely
[2023-12-26] MEDS: SODIUM CHLORIDE 0.9% 1,000 ML IV SCH (21:48)
[2023-12-27] MEDS: ONDANSETRON 4 MG/2 ML VIAL IVP PRN (09:33)
[2023-12-27] MEDS: DEXAMETHASONE SOD PHOSPHATE 4 MG/ML 1 ML VIAL IVP STA (09:33)
[2023-12-27 09:36] LABS: ALT 17 U/L (10-49); AST 20 U/L (14-35); Albumin 3.4 g/dL (3.8-4.9); Albumin/Globulin Ratio 2.12 Ratio (1.60-3.17); Alkaline Phosphatase 93 U/L (41-126); BUN/Creat Ratio 24.69 Ratio (12.00-20.00); Blood Urea Nitrogen 39.5 mg/dL (9.0-27.0); Calcium 8.4 mg/dL (8.7-10.3); Carbon Dioxide 24.1 mmol/L (21.6-31.8); Chloride 105 mmol/L (96-109); Globulin 1.6 g/dL (1.6-3.3); Glucose 96 mg/dL (70-110); Potassium 4.5 mmol/L (3.5-5.5); Sodium 138 mmol/L (135-145); Total Bilirubin 0.4 mg/dL (0.3-1.2)
[2023-12-27 09:40] LABS: Basophils # (A) 0.03 X 10*3/uL (0.00-0.10); Basophils % (A) 0.5 %; Eosinophils # (A) 0.09 X 10*3/uL (0.04-0.35); Eosinophils % (A) 1.4 %; HCT 40.7 % (39.6-50.0); HGB 12.8 g/dL (13.0-17.0); Lymphocytes # (A) 1.01 X 10*3/uL (0.90-5.00); Lymphocytes % (A) 16.1 %; MCH 32.7 pg (27.0-32.0); MCHC 31.4 g/dL (32.0-37.0); MCV 104.1 FL (80.0-97.0); Mean Platelet Volume 11.6 FL (9.5-12.2); Monocytes # (A) 0.58 X 10*3/uL (0.20-1.00); Monocytes % (A) 9.2 %; NRBC Per 100 WBC 0 X 10*3/uL (0.00-0.01); Neutrophils # (A) 4.48 X 10*3/uL (1.80-7.70); Neutrophils % (A) 71.4 %; Platelet Count 115 X 10*3/uL (140-440); RBC 3.91 X 10*6/uL (4.40-5.60); RDW 16.3 % (11.5-14.5); WBC 6.28 X 10*3/uL (4.50-10.00)
[2023-12-27] MEDS ORDERED: MIDAZOLAM 2 MG/2 ML VIAL ONE (10:09)
[2023-12-27] MEDS ORDERED: PROPOFOL 10 MG/ML 20 ML VIAL IV ONE (10:09)
[2023-12-27] MEDS ORDERED: LIDOCAINE 1% INJ 10MG/ML (20 ML MDV) ONE (10:09)
[2023-12-27] MEDS ORDERED: TRANEXAMIC 1,000 MG/100ML-NACL PREMIX BAG ONE (10:09)
[2023-12-27] MEDS ORDERED: SUCCINYLCHOLINE CHLORIDE 200 MG/10 ML VIAL IV ONE (10:09)
[2023-12-27] MEDS ORDERED: fentaNYL (PF) 50 MCG/ML 2 ML AMP ONE (10:09)
[2023-12-27] MEDS ORDERED: ROCURONIUM 10 MG/ML (5 ML VIAL) IV ONE (10:09)
[2023-12-27] MEDS: IV FLUID CONTINUATION 900 ML IV ONE (10:11)
[2023-12-27] MEDS: IV FLUID CONTINUATION 1,000 ML IV ONE (10:11)
[2023-12-27] MEDS: SODIUM CHLORIDE 0.9% 1,000 ML IV ONE (10:14)
--- NOTE | 2023-12-27 10:15 | P.ANPRN ---
Procedure Note - Anesthesia - Invasive Line Right Central Line Time Out Performed: Yes ([id number]) Date of Procedure: 12/27/23 Time of Procedure: 10:50 Location of Patient: PreOp Preparation: Sterile Prep, Sterile Dressing Central Line Location: Internal Jugular Ultrasound Used: Yes Purpose - Visualization and Identification of Vasculature: Yes Image Stored and Saved: Yes Narrative: Invasive line placement per sterile protocol utilized. Double lumen righjt IJ with one attempt . secured with suture, and biopatch placed. Sterile transparent dressing applied.
[2023-12-27] MEDS: BUPIVACAINE (PF) 0.5% 30 ML VIAL SQ ONE (11:21)
[2023-12-27] MEDS: LIDOCAINE 2%-EPI 1:100,000 20 ML VIAL SQ ONE (11:22)
--- NOTE | 2023-12-27 13:17 | XR ---
Intraoperative/procedural fluoroscopic services were provided for lumbar fx. Total fluoroscopy time i s 35 seconds. No images submitted to PACS. Total DAP 2595.10 cGy. Please see the operative note for further details. [facility], , 12/27/2023 1:15 PM
--- NOTE | 2023-12-27 13:18 | P.OP ---
Date of Procedure: 12/27/23 Preoperative Diagnosis: 1. L2-3 AO TYPE B3 HYPEREXTENSION INJURY, UNSTABLE, IN AN ANKYLOSED SPINE 2. L3 AO TYPE A4 BURST FRACTURE 3. CHRONIC L4 AO TYPE A3 FRACTURE S/P KYPHOPLASTY 4. LUMBAR STENOSIS, MODERATE TO SEVERE RELATED TO 1-3 5. SEVERE LOW BACK PAIN 6. LE WEAKNESS WITH PARAPLEGIA 7. COMPLEX MEDICAL PATIENT Postoperative Diagnosis: 1. L2-3 AO TYPE B3 HYPEREXTENSION INJURY, UNSTABLE, IN AN ANKYLOSED SPINE 2. L3 AO TYPE A4 BURST FRACTURE 3. CHRONIC L4 AO TYPE A3 FRACTURE S/P KYPHOPLASTY 4. LUMBAR STENOSIS, MODERATE TO SEVERE RELATED TO 1-3 5. SEVERE LOW BACK PAIN 6. LE WEAKNESS WITH PARAPLEGIA 7. COMPLEX MEDICAL PATIENT Procedure(s) Performed: OPEN TREATMENT L2-3 AO TYPE B3/A4 HPEREXTENSION FRACTURE L1-S1 SEGMENTAL INSTRUMENTATION L1-L4 POSTEROLATERAL INSTRUMENTED FUSION USE OF SUDEEP NAVIGATION FOR SCREW PLACEMENT USE OF IONM MOD22: THIS CASE TOOK 75% LONGER THAN EXPECTED DUE TO EXTENT OF DISEASE, TECHNICALLITY OF THE CASE, PT BODY HABITUS AND COMORBID CONDITIONS. Implants: SUDEEP EVEREST RODS AND SCREWS MAGNATOS Anesthesia: GETA Surgeon: Chucho Ashton Estimated Blood Loss (ml): 200 IV fluids (ml): 1,200 Urine output (ml): 250 Pathology: none sent Condition: stable Disposition: PACU Indications for Procedure: 83 yo male presented for increasing and unrelenting back pain that has prevented him from ADLs walking and normal life since the end of october when he sustained a fall from standing. He was admitted to the hospital back in November and found to have several issues. We were never consulted for eval unfortunately. he was then sent to [facility] for rehab. He returned to my office with increasing pain and now weakness in his LE and inability to ambulate. His presentd with him. He states severe back pain, Leg pain, weakness, debility, progressive changes and his states he is not doing well. Upon review of his imaing it was found that he had unstable lumbar fracture and he was admitted to the hospital for surgical fixation. Risks and benefits of surgery were discussed at length with him and his including but not limited to risk of bleeding, infection, damage to surrounding tissues, nerve damage, continued pain, continued weakness, worsening sx, risk of anesthesia up to and including . They were willing to assume all the risks of surgery and were willing to proceed. He was s/e in pre op and signed and marked. All pre op protocols followed. He was willing to proceed with surgery. Description of Procedure: L2-3 OPEN TREATMENT FRACTURE WITH L1-S1 STABILIZATION, FUSION AND DEFORMITY CORRECTION Upon arrival in the preoperative area, the patient was thoroughly examined and all standard protocols were meticulously followed. The risks and benefits of the upcoming surgery were discussed in detail, ensuring informed consent was obtained. The patient was made aware of the various risks associated with the procedure, including bleeding, infection, potential damage to surrounding tissues, and the possibility of needing a reoperation. Additionally, the risks related to anesthesia, which could extend to fatal outcomes, were also communicated and documented in the risk review. Understanding and accepting these risks, the patient agreed to proceed with the surgery. Prior to the operation, the patient received a weight-based dose of antibiotics, specifically 2 grams of Ancef. The anesthesia team evaluated the patient and deemed them fit for the surgical procedure. With the patients consent, the surgical site was marked, indicating their readiness to undergo the operation. The patient was then transferred to the operative suite under the care of the Department of Anesthesia. There, they were gently put to sleep, and general endotracheal anesthesia was successfully administered without any complications. The nursing staff placed a Mulligan catheter atraumatically, and the patient was carefully positioned on a prone Tyrone table. Special care was taken to pad all bony prominences, including the wrists, elbows, axilla, chest, hips, thighs, and feet, with extra attention given to the genitalia to ensure comfort and safety. The patients arms were positioned on arm boards, extended up and out at a 90- degree angle from the body. The surgical team then proceeded to expose the patients thoracic and lumbar spine. The incision site was outlined with 1010s, cleaned with standard alcohol, and allowed to dry. The C-arm was utilized to biomark the patient and confirm the level for the incision, which was then marked on the skin. An operative briefing was conducted with all teams present, reaching a unanimous agreement to move forward with the procedure. The patient was prepped and draped in a sterile fashion, and a timeout was taken to ensure all parties were in agreement with the planned procedure. A midline skin incision was made over the marked area, and dissection was carried down to the subcutaneous tissue and fascia. The fascia was identified and cleaned with a Guaman. This was then split for the placement of the SP clamp for the tracker for Sudeep Navigation. This was secured and then a 3D C arm spin was obtained and registered with Paulie and was confirmed to be accurate once this was confirmed we proceeded to place wires with a navigated Jamshidi bilateral from L1-S1. L3 screws were placed short due to fracture and no L4 screws placed due to previous fracture and kyphoplasty. Once wires were in they were confirmed on AP to be in good position, screws were then placed over wires under lateral fluroscopy. Once screws were in place we viewed them on AP and confirmed their placement. They were then tested with IONM and all screws tested above 20 mA. We then proceeded to reduction, sanya placement and fusion. Rods were selected and bent accordingly, We then placed these subfacially through all tulip heads and secured with set screws. Set screws were final tightened and this was done under lateral imaging to confirm reduction of fracture back into better flexion stance. No IONM chnages observed during this time. We then final tightened the set screws. Small paraspinal incisions were then extended down to the fractured level and posterolatearl gutters decorticated for fusion bed and MagnatOs was palced in the PL gutters from L1- L4. We then irrigated the wounds copiously. Local was placed in the skin. The closure was performed in layers, starting with the deep fascia, which was closed with 0 Vicryl in a [id number] fashion. The deep subcutaneous tissue was closed with 0 Vicryl, the superficial subcutaneous tissue with 2-0 Vicryl, and the skin with jose manuel. The wound edges were well approximated, and the area was dressed sterilely with Adaptic, 4x4 ABDs, and foam tape. Finally, the patient was gently transferred back to their hospital bed. The patient was then awakened and extubated by the anesthesia department, having tolerated the procedure exceptionally well. They were subsequently transferred to the postoperative care unit in a stable condition, marking the conclusion of a meticulously conducted surgical procedure.
[2023-12-27] MEDS: fentaNYL (PF) 50 MCG/ML 2 ML AMP IVP PRN (13:43)
[2023-12-27] MEDS ORDERED: HYDROmorphone 0.5 MG/0.5 ML SYRINGE IVP PRN (13:47)
[2023-12-27] MEDS ORDERED: HYDROmorphone 2 MG/ML 1 ML SYRINGE IVP PRN (13:47)
[2023-12-27] MEDS ORDERED: ONDANSETRON 4 MG/2 ML VIAL IVP PRN (13:47)
[2023-12-27] MEDS ORDERED: HYDROmorphone 1 MG/ML 1 ML SYRINGE IVP PRN (15:47)
[2023-12-27] MEDS: GABAPENTIN 300 MG CAP PO SCH (16:03)
[2023-12-27] MEDS: ACETAMINOPHEN TAB 325 MG TAB PO SCH (17:29)
--- NOTE | 2023-12-27 18:30 | CT ---
EXAMINATION TYPE: CT lumbar spine wo con DATE OF EXAM: 12/27/2023 6:11 PM COMPARISON: 12/02/2023 08/21/2023 MRI 12/04/2023.. CLINICAL INDICATION: Male, 83 years old with history of s/p OPEN TREATMENT L2-3 AO TYPE B3/A4 HYPEREX TENSION; PHH, S/P Low back surgery. Pain. TECHNIQUE: Multiple axial images were obtained from the midportion of T11 through the sacroiliac lorna nts. Soft tissue and bone windows in coronal and sagittal planes were obtained and reviewed. Contrast used: mL of , (None, if empty). Oral contrast used: (None, if empty). CT DLP: 1925.6 mGycm, Automated exposure control for dose reduction was used. FINDINGS: Severe degeneration changes of the spine extending from L1 through S1. Kyphoplasty changes at L1 with extravasation into adjacent vein anteriorly, L4 and S1 present. Hardware appears intact. Compression deformity at L3 vertebral body is present in similar to 12/04/[address] Skin jose manuel are pres ent in the back. Bilateral nonobstructing renal calculi. Atherosclerosis of the arterial vasculature. Degeneration mariana nges of the sacroiliac joints with ridging osteophytes. IMPRESSION: 1. Postsurgical changes with hardware intact. 2. Kyphoplasty cement changes also present with in intravasation of the L1 vertebrae cement. 3. Stable appearance of the L3 vertebral body fracture. No new fractures definitively visualized. [facility], , 12/27/2023 6:28 PM
[2023-12-27] MEDS: CYCLOBENZAPRINE 5 MG TAB PO PRN (22:13)
[2023-12-27] MEDS: MIDODRINE 5 MG TAB PO SCH (22:13)
--- NOTE | 2023-12-27 22:51 | P.GSCN ---
History of Present Illness Consult date: 12/27/23 History of present illness: CHIEF COMPLAINT: Colon cancer. HISTORY OF PRESENT ILLNESS: The patient is a 83-year-old male less than 3 to 4 weeks ago admitted for generalized weakness. Patient was found to have atrial fibrillation including acute renal insufficiency and poor oral intake. Patient incidentally was also recently diagnosed with colon cancer 6 weeks ago. Patient was being medically optimized at [facility] and was found to have lumbar fracture which was being monitored however progressed to requiring emergent admission 12/25/2023, 2 days ago and open duction internal fixation of his lumbar fracture today. General surgery is consulted was patient was being optimized for elective colon resection in 1 week. PAST MEDICAL HISTORY: See list and reviewed PAST SURGICAL HISTORY: See list and reviewed MEDICATIONS: See list and reviewed ALLERGIES: See list and reviewed SOCIAL HISTORY: See list and reviewed FAMILY HISTORY: See list and reviewed REVIEW OF ORGAN SYSTEMS: CONSTITUTIONAL: No fevers or chills. Recent weight loss of 100 pounds. EYES: Denies any trouble with vision. No glasses. HEENT: Hard of hearing. No nosebleeds. No difficulty swallowing. RESPIRATORY: Has chronic obstructive pulm disease. CARDIOVASCULAR: Atrial fibrillation on chronic blood thinner. Has hypertensive heart disease. Has congestive heart failure. History of cardioversion. History of cardiac catheterization. GASTROINTESTINAL: Denies fatty food intolerance. Denies change in bowel habits and gas bloat. Has a liver disease, cirrhosis. Has gastroesophageal reflux disease. Has colon cancer. GENITOURINARY: Has urinary frequency including chronic renal sufficiency. Has benign prostatic hypertrophy. NEUROLOGICAL: History of cerebrovascular accident. MUSCULOSKELETAL: Recent back surgery due to compression fracture of the lumbar. History of paresthesias. SKIN: No current skin cancer. No rash. PSYCHIATRIC: Has depressive disorder. Has generalized anxiety disorder. ENDOCRINE: Denies current thyroid disorders. Has diabetes type 2. HEME/LYMPHATIC: Denies any lumps and bumps around the neck. No recent deep venou s thrombosis. ALLERGY/IMMUNOLOGY: No immunoglobulin therapy. No immune deficiencies. BREAST: Denies current breast lumps, pain or nipple discharge. PHYSICAL EXAM: VITALS: Reviewed CONSTITUTIONAL: Well developed and in no acute distress. EYES: Conjuctivae without sclera icterus. Extraocular movements grossly intact. HEAD, EARS, NOSE, THROAT: Moist buccal mucosa. Head is atraumatic, normoceph alic. Hears conversational speech. No nasal drainage. NECK: Supple. No JV distention. No thyroidomegaly. RESPIRATORY: Non-labored respirations and equal bilateral excursions. No gross wheezes. CARDIOVASCULAR: Palpable 2+ radial pulses. ABDOMEN: Nontender. LYMPH: No neck lymphadenopathy. MUSCULOSKELETAL: No clubbing cyanosis or edema SKIN: Warm and well perfused with good skin turgor. NEUROLOGIC: Cranial nerves II through XII grossly intact. No focal or lateralizing signs. PSYCH: Appropriate affect. Alert and oriented to person, place and time. Displays appropriate insight. CLINCAL LABS: Reviewed. Acute blood loss hemoglobin baseline 15.1 down to 12.8 following surgical intervention. Baseline creatinine 1.2 up to 1.68, acute renal insufficiency. Albumin low less than 4.0 IMAGING: Independently reviewed. Chest x-ray independently reviewed demonstrate no pneumothorax or acute pneumonia. RADIOLOGY: Report reviewed of chest x-ray demonstrating no acute process. RECORDS: previous old records reviewed of CT abdomen and pelvis 11/22/2023 demonstrating lesion of the ascending colon/cecum. Echo report from 11/26/2023 demonstrates severe global hypokinesis of the left ventricle with moderate to severe pulmonary hypertension. ASSESSMENT: 1. Subacute to acute lumbar fracture with neurological deficit requiring urgent open duction internal fixation 2. Colon cancer 3. Atrial fibrillation 4. Ischemic cardiomyopathy 5. Diabetes type 2, not on insulin-dependent with complications 6. Diabetic nephropathy 7. Acute on chronic renal insufficiency 8. Chronic obstructive pulmonary disease 9. Generalized weakness 10. Mild to moderate protein malnutrition PLAN: 1. Due to recent emergent surgery and multiple comorbidities, patient is high risk for ileus prior to his scheduled colectomy which I have reviewed with the patient in discussion. 2. Will continue to monitor. 3. Will likely defer colectomy upon different admission due to high surgical risk ADVANCE DIRECTIVE: CODE STATUS in chart Thank you for this kind consultation. Past Medical History Past Medical History: Atrial Fibrillation, CVA/TIA, GERD/Reflux, Hearing Disorder / Deafness, Hyperlipidemia, Osteoarthritis (OA), Prostate Disorder Additional Past Medical History / Comment(s): Tinnitus, Hx kidney stones, BPH, LUNG SCARRING. 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 History of Any Multi-Drug Resistant Organisms: None Reported Past Surgical History: Adenoidectomy, Ear Surgery, Heart Catheterization, Joint Replacement, Tonsillectomy Additional Past Surgical History / Comment(s): Oral surgery, diana knee replacements, partial thyroidectomy, diana cataracts. EGD, COLONOSCOPY cardioversion Past Anesthesia/Blood Transfusion Reactions: No Reported Reaction Past Psychological History: Anxiety Smoking Status: Former smoker Past Alcohol Use History: None Reported Additional Past Alcohol Use History / Comment(s): quit smoking 1986, started smoking age 17 Past Drug Use History: None Reported - Past Family History Mother Family Medical History: No Reported History Additional Family Medical History / Comment(s): . Medications and Allergies Home Medications Medication Instructions Recorded Confirmed Type Sertraline HCl [Zoloft] 200 mg PO DAILY 10/30/13 12/25/23 History Acetaminophen Tab [Tylenol] 1,000 mg PO HS 08/08/18 12/25/23 History Metoprolol Tartrate [Lopressor] 25 mg PO BID 07/01/21 12/25/23 History Amiodarone [Cordarone] 200 mg PO BID tab 12/05/23 12/25/23 Rx Apixaban [Eliquis] 2.5 mg PO BID #0 tab 12/05/23 12/25/23 Rx Dapagliflozin Propanediol [Farxiga] 10 mg PO DAILY tab 12/05/23 12/25/23 Rx Docusate [Colace] 100 mg PO BID cap 12/05/23 12/25/23 Rx Furosemide [Lasix] 20 mg PO DAILY tab 12/05/23 12/25/23 Rx Sacubitril/Valsartan [Entresto 24 1 tab PO BID 12/25/23 12/25/23 History mg-26 mg Tablet] Temazepam [Restoril] 7.5 mg PO HS 12/25/23 12/25/23 History guaiFENesin SYRUP 100MG/5ML 200 mg PO Q4H PRN 12/25/23 12/25/23 History [Robitussin] Allergies Allergy/AdvReac Type Severity Reaction Status Date / Time hydrocodone [From Lortab] Allergy SEVERE Verified 12/25/23 15:48 ABDOMINAL AND TROUBLE BREATHING hydrocodone bitartrate Allergy Anaphylaxis Verified 12/25/23 15:48 [From Vicodin] Penicillins Allergy Anaphylaxis Verified 12/25/23 15:48 propoxyphene napsylate Allergy Anaphylaxis Verified 12/25/23 15:48 [From Darvocet-N 100] tamsulosin HCl [From Flomax] Allergy Anaphylaxis Verified 12/25/23 15:48 Surgical - Exam Vital Signs Temp Pulse Resp BP Pulse Ox 97.4 F L 96 20 123/58 97 12/25/23 14:17 12/25/23 14:17 12/25/23 14:17 12/25/23 14:17 12/25/23 14:17 Results - Labs 12/27/23 04:54 12/27/23 04:54 Abnormal Lab Results - Last 24 Hours (Table) 12/27/23 12/27/23 Range/Units 04:54 04:54 RBC 3.91 L (4.40-5.60) X 10*6/uL Hgb 12.8 L (13.0-17.0) g/dL MCV 104.1 H (80.0-97.0) FL MCH 32.7 H (27.0-32.0) pg MCHC 31.4 L (32.0-37.0) g/dL RDW 16.3 H (11.5-14.5) % Plt Count 115 L (140-440) X 10*3/uL Immature Gran # 0.09 H (0.00-0.04) X 10*3/uL BUN 39.5 H (9.0-27.0) mg/dL Creatinine 1.6 H (0.6-1.5) mg/dL Est GFR (CKD-EPI) 43 L (>=60) BUN/Creatinine Ratio 24.69 H (12.00-20.00) Ratio Calcium 8.4 L (8.7-10.3) mg/dL Total Protein 5.0 L (6.2-8.2) g/dL Albumin 3.4 L (3.8-4.9) g/dL Diabetes panel 12/27/23 Range/Units 04:54 Sodium 138 (135-145) mmol/L Potassium 4.5 (3.5-5.5) mmol/L Chloride 105 (96-109) mmol/L Carbon Dioxide 24.1 (21.6-31.8) mmol/L BUN 39.5 H (9.0-27.0) mg/dL Creatinine 1.6 H (0.6-1.5) mg/dL Glucose 96 (70-110) mg/dL Calcium 8.4 L (8.7-10.3) mg/dL AST 20 (14-35) U/L ALT 17 (10-49) U/L Alkaline Phosphatase 93 (41-126) U/L Total Protein 5.0 L (6.2-8.2) g/dL Albumin 3.4 L (3.8-4.9) g/dL Calcium panel 12/27/23 Range/Units 04:54 Calcium 8.4 L (8.7-10.3) mg/dL Albumin 3.4 L (3.8-4.9) g/dL Pituitary panel 12/27/23 Range/Units 04:54 Sodium 138 (135-145) mmol/L Potassium 4.5 (3.5-5.5) mmol/L Chloride 105 (96-109) mmol/L Carbon Dioxide 24.1 (21.6-31.8) mmol/L BUN 39.5 H (9.0-27.0) mg/dL Creatinine 1.6 H (0.6-1.5) mg/dL Glucose 96 (70-110) mg/dL Calcium 8.4 L (8.7-10.3) mg/dL Adrenal panel 12/27/23 Range/Units 04:54 Sodium 138 (135-145) mmol/L Potassium 4.5 (3.5-5.5) mmol/L Chloride 105 (96-109) mmol/L Carbon Dioxide 24.1 (21.6-31.8) mmol/L BUN 39.5 H (9.0-27.0) mg/dL Creatinine 1.6 H (0.6-1.5) mg/dL Glucose 96 (70-110) mg/dL Calcium 8.4 L (8.7-10.3) mg/dL Total Bilirubin 0.4 (0.3-1.2) mg/dL AST 20 (14-35) U/L ALT 17 (10-49) U/L Alkaline Phosphatase 93 (41-126) U/L Total Protein 5.0 L (6.2-8.2) g/dL Albumin 3.4 L (3.8-4.9) g/dL
[2023-12-28] MEDS ORDERED: MIDODRINE 5 MG TAB PO SCH (07:30)
--- NOTE | 2023-12-28 09:28 | P.PN ---
Subjective Progress Note Date: 12/28/23 Principal diagnosis: 1. L2-3 AO TYPE B3 HYPEREXTENSION INJURY, UNSTABLE, IN AN ANKYLOSED SPINE 2. L3 AO TYPE A4 BURST FRACTURE 3. CHRONIC L4 AO TYPE A3 FRACTURE S/P KYPHOPLASTY 4. LUMBAR STENOSIS, MODERATE TO SEVERE RELATED TO 1-3 5. SEVERE LOW BACK PAIN 6. LE WEAKNESS WITH PARAPLEGIA 7. COMPLEX MEDICAL PATIENT Patient was seen at bedside this morning on 4 S. lying in the semirecumbent position with dressing present over lumbar spine. Patient says he is having some pain to the low back at this time but it is controlled with oral medication for the most part. He says he does look forward to working with therapy later this morning. Patient denies any other significant issues at this time. Objective - Vital Signs Vital signs: Vital Signs Temp 98.2 F 12/28/23 06:40 Pulse 84 12/28/23 06:40 Resp 16 12/28/23 06:40 BP 90/57 12/28/23 07:43 Pulse Ox 95 12/28/23 06:40 FiO2 Intake & Output 12/27/23 12/28/23 12/28/23 18:59 06:59 18:59 Intake Total 1600 Output Total 500 575 Balance 1100 -575 Weight 108.409 kg Intake: IV 1600 Output: Urine 300 575 Estimated Blood Loss 200 Other: Voiding Method Indwelling Catheter - Exam General Appearance: Well nourished; In distress and pain; wheelchair bound Mental Status: AOX3 Ambulation: Cannot at this time. Wheelchair only. Spine Examination Inspection -Pain with movement. -Alignment is SAG++; SVA++ due to fracture and mobility -Dressing appears to be clean, dry, intact over lumbar spine. Palpation -TTP of the midline of the lumbar spine as well as paraspinal around the L3 L4 and L5 region -Pain with any motion of the spine Range of Motion (Measured in Degrees) Cervical: -ROM able, no pain at this time. Thoracolumbar: -Unable to due to pain at this time. LSO in place. Neurological Examination Motor Strength (0-5/5) [DETAILED MYOTOMAL TESTING] Upper Extremities: -Generalized weakness. C5-T1 shows 4-/5 strength overall without focal deficits at this time. Lower Extremities: -RLE: 2-3/5 HF/KE/KF/DF/PF/EHL/FHL at this time significantly decreased from baseline -LLE: 3-4-/5 HF/KE/KF/DF/PF/EHL/FHL Sensation (0-2) [DETAILED DERMATOMAL TESTING] -Dermatomal deficits in L2-3, L3-4 on the right with paresthesias in b/l LE global Reflexes (0-4+) Upper Extremities: -2/4 all at this time. No hyperreflexia Lower Extremities: -Globally diminished 1/4 Special Tests -Casas's: NEG Babinski: NEG Clonus: NEG Straight Leg Raise: ++RIGHT Crossed SLR: POS Femoral Stretch: ++RIGHT Spurling's: POS Upper Limb Tension: NEG - Labs CBC & Chem 7: 12/27/23 04:54 12/27/23 04:54 Labs: Abnormal Lab Results - Last 24 Hours (Table) 12/27/23 12/27/23 Range/Units 04:54 04:54 RBC 3.91 L (4.40-5.60) X 10*6/uL Hgb 12.8 L (13.0-17.0) g/dL MCV 104.1 H (80.0-97.0) FL MCH 32.7 H (27.0-32.0) pg MCHC 31.4 L (32.0-37.0) g/dL RDW 16.3 H (11.5-14.5) % Plt Count 115 L (140-440) X 10*3/uL Immature Gran # 0.09 H (0.00-0.04) X 10*3/uL BUN 39.5 H (9.0-27.0) mg/dL Creatinine 1.6 H (0.6-1.5) mg/dL Est GFR (CKD-EPI) 43 L (>=60) BUN/Creatinine Ratio 24.69 H (12.00-20.00) Ratio Calcium 8.4 L (8.7-10.3) mg/dL Total Protein 5.0 L (6.2-8.2) g/dL Albumin 3.4 L (3.8-4.9) g/dL Assessment and Plan Assessment: 1. L2-3 AO TYPE B3 HYPEREXTENSION INJURY, UNSTABLE, IN AN ANKYLOSED SPINE 2. L3 AO TYPE A4 BURST FRACTURE 3. CHRONIC L4 AO TYPE A3 FRACTURE S/P KYPHOPLASTY 4. LUMBAR STENOSIS, MODERATE TO SEVERE RELATED TO 1-3 5. SEVERE LOW BACK PAIN 6. LE WEAKNESS WITH PARAPLEGIA 7. COMPLEX MEDICAL PATIENT -Postop day 1 status post OPEN TREATMENT L2-3 AO TYPE B3/A4 HPEREXTENSION FRACTURE L1-S1 SEGMENTAL INSTRUMENTATION L1-L4 POSTEROLATERAL INSTRUMENTED FUSION Plan: 1. L2-3 AO TYPE B3 HYPEREXTENSION INJURY, UNSTABLE, IN AN ANKYLOSED SPINE; L3 AO TYPE A4 BURST FRACTURE; CHRONIC L4 AO TYPE A3 FRACTURE S/P KYPHOPLASTY; LUMBAR STENOSIS, MODERATE TO SEVERE RELATED TO 1-3; SEVERE LOW BACK PAIN; LE WEAKNESS WITH PARAPLEGIA -surgery performed yesterday, 12/27/2023 OPEN TREATMENT L2-3 AO TYPE B3/A4 HPEREXTENSION FRACTURE; L1-S1 SEGMENTAL INSTRUMENTATION; L1- L4 POSTEROLATERAL INSTRUMENTED FUSION. patient stable at bedside this morning. Patient to be weightbearing as tolerated with walker and brace while up and about with therapy. Pain medication as needed. We will continue to follow patient during stay in hospital. Discharge pending 2. Appreciate medical management 3. Pain management - tylenol' flexeril; gabapentin 4. DVT prophylaxis - bladimir hose; scds 5. GI prophylaxis - colace 6. PT/OT -weightbearing as tolerated with walker and brace follow-up in about 7. Encourage incentive spirometer use 8. Discharge planning -pending Time with Patient: Less than 30
--- NOTE | 2023-12-28 10:35 | P.PN ---
Subjective Progress Note Date: 12/28/23 Principal diagnosis: Colon cancer Patient underwent back surgery yesterday. Doing fairly well today. Pain seems to be well-controlled. Tolerating diet. Denies nausea or vomiting. Some diminished appetite noted. No flatus or bowel movement yet. Objective - Vital Signs Vital signs: Vital Signs Temp 98.2 F 12/28/23 06:40 Pulse 84 12/28/23 06:40 Resp 16 12/28/23 06:40 BP 90/57 12/28/23 07:43 Pulse Ox 95 12/28/23 06:40 FiO2 Intake & Output 12/27/23 12/28/23 12/28/23 18:59 06:59 18:59 Intake Total 1600 Output Total 500 575 Balance 1100 -575 Weight 108.409 kg Intake: IV 1600 Output: Urine 300 575 Estimated Blood Loss 200 Other: Voiding Method Indwelling Catheter - Exam Abdomen: Soft, nontender, nondistended - Labs CBC & Chem 7: 12/27/23 04:54 12/27/23 04:54 Assessment and Plan (1) Colon adenocarcinoma Narrative/Plan: 83-year-old male with colon cancer. Continue regular diet. Increase activity per orthopedics. Will follow. Current Visit: No Status: Acute Priority: High Code(s): C18.9 - MALIGNANT NEOPLASM OF COLON, UNSPECIFIED SNOMED Code(s): 696459291
--- NOTE | 2023-12-28 10:40 | P.PN ---
Subjective Progress Note Date: 12/28/23 Nick Vora, is an 83 year-old male who presented to [facility] emergency room with a chief complaint of back pain and bilateral lower extremity weakness, he was evaluated at Dr. Ashton's office and was sent to emergency room for admission. He was evaluated in the emergency room vital examination on presentation revealed a temperature of 97.4 pulse 96 respiration 20 blood pressure 123/58 pulse ox 97% on 2 L nasal cannula Laboratory data revealed a white blood count of 7.3 hemoglobin 14.3 platelet count 147 sodium 136 potassium 4.9 chloride 103 CO2 28 BUN 44 creatinine 1.32 u rine analysis revealed evidence of urinary tract infection Testing in the emergency room revealed EKG done in the emergency room revealed sinus rhythm with first-degree AV block with poor R wave progression in anterior leads possible old infarction. Prior to admission patient had a CT scan of the lumbar spine which revealed compression deformity of L3 vertebral body, with moderate to severe spinal canal stenosis and mild to moderate neural foraminal stenosis, and moderate to severe canal stenosis at L4 and moderate to severe degeneration changes in the spine Patient was admitted to medical floor for further evaluation and treatment Past medical history is significant for history of atrial fibrillation maintained on Eliquis, history of hypertension, history of hyperlipidemia, history of osteoarthritis, history of benign prostatic hypertrophy, history of decreased hearing, history of recent colonoscopy with polypectomy on November 13, 2023, with pathology positive for invasive colonic adenocarcinoma, patient will need further surgical intervention on the colon when stable medically. On review of systems patient is alert and oriented x 3 in no apparent distress there is no fever or chills no headache or dizziness no chest pain no shortness of breath no cough no nausea or vomiting no abdominal pain no diarrhea no blood in the stools no burning with urination no frequency or urgency and no hematuria. On 12/28/2023 patient was seen and examined on the medical floor, he is alert and oriented x 3 in no apparent distress, there is no fever or chills no headache or dizziness no chest pain no shortness of breath no cough no nausea or vomiting no abdominal pain no diarrhea no blood in the stools no burning with urination no frequency or urgency and no hematuria. Patient is having significantly low blood pressure last night blood pressure was 80/43, he was started on IV fluid, he was also started on midodrine 5 mg p.o. 3 times daily, consultation for cardiology was initiated, otherwise patient is doing well, will continue to follow closely. Objective - Vital Signs Vital signs: Vital Signs Temp 98.2 F 12/28/23 06:40 Pulse 84 12/28/23 06:40 Resp 16 12/28/23 06:40 BP 90/57 12/28/23 07:43 Pulse Ox 95 12/28/23 06:40 FiO2 Intake & Output 12/27/23 12/28/23 12/28/23 18:59 06:59 18:59 Intake Total 1600 Output Total 500 575 Balance 1100 -575 Weight 108.409 kg Intake: IV 1600 Output: Urine 300 575 Estimated Blood Loss 200 Other: Voiding Method Indwelling Catheter - Exam In general patient is alert and oriented x 3 in no distress HEENT head normocephalic and atraumatic Neck is supple no JVD no goiter no lymphadenopathy no carotid bruit Chest examination is clear to auscultation no crackles no wheezing Cardiac exam reveals regular heart sounds S1 and S2 no gallops no murmurs Abdomen is soft nontender no organomegaly with normal bowel sounds Extremity exam reveals no edema no cyanosis or clubbing Neurological examination reveals no gross focal deficits - Labs CBC & Chem 7: 12/27/23 04:54 12/27/23 04:54 Assessment and Plan Plan: Low back pain with bilateral lower extremity weakness Evidence of urinary tract infection Underlying history of hypertension Underlying history of hyperlipidemia Underlying history of paroxysmal atrial fibrillation Underlying history of osteoarthritis Underlying history of benign prostatic hypertrophy Underlying history of decreased hearing Underlying history of invasive colonic adenocarcinoma patient will need surgical intervention in the near future At this time patient was seen and examined Home medications reviewed and reordered At this time will hold Eliquis in anticipation for surgical intervention DVT prophylaxis with SCD stockings Patient was started on IV ceftriaxone for urinary tract infection Patient is at increased surgical risk due to his multiple medical problems, however there is no medical contraindication for surgery Will continue to follow closely
[2023-12-28 11:26] LABS: Basophils # (A) 0.03 X 10*3/uL (0.00-0.10); Basophils % (A) 0.3 %; Eosinophils # (A) 0.02 X 10*3/uL (0.04-0.35); Eosinophils % (A) 0.2 %; HCT 37.1 % (39.6-50.0); HGB 11.2 g/dL (13.0-17.0); Lymphocytes # (A) 0.67 X 10*3/uL (0.90-5.00); Lymphocytes % (A) 7.2 %; MCH 31.5 pg (27.0-32.0); MCHC 30.2 g/dL (32.0-37.0); MCV 104.5 FL (80.0-97.0); Mean Platelet Volume 11.4 FL (9.5-12.2); Monocytes # (A) 0.77 X 10*3/uL (0.20-1.00); Monocytes % (A) 8.2 %; NRBC Per 100 WBC 0 X 10*3/uL (0.00-0.01); Neutrophils # (A) 7.79 X 10*3/uL (1.80-7.70); Neutrophils % (A) 83.4 %; Platelet Count 122 X 10*3/uL (140-440); RBC 3.55 X 10*6/uL (4.40-5.60); RDW 16.3 % (11.5-14.5); WBC 9.35 X 10*3/uL (4.50-10.00)
[2023-12-28 11:27] LABS: BUN/Creat Ratio 25.31 Ratio (12.00-20.00); Blood Urea Nitrogen 32.9 mg/dL (9.0-27.0); Calcium 7.9 mg/dL (8.7-10.3); Carbon Dioxide 19.6 mmol/L (21.6-31.8); Chloride 110 mmol/L (96-109); Glucose 101 mg/dL (70-110); Potassium 4.9 mmol/L (3.5-5.5); Sodium 139 mmol/L (135-145)
[2023-12-28 12:14] LABS: HCT 38.7 % (39.0-53.0); HGB 12.2 gm/dL (13.0-17.5); Hypochromasia Marked; MCH 33.3 pg (25.0-35.0); MCHC 31.4 g/dL (31.0-37.0); Macrocytosis Moderate; Mean Platelet Volume 8.8; RBC 3.65 m/uL (4.30-5.90); RDW 15.4 % (11.5-15.5); WBC 8.6 k/uL (3.8-10.6)
[2023-12-28 14:40] LABS: Platelet Count 99 k/uL (150-450)
[2023-12-28] MEDS: MIDODRINE 5 MG TAB PO SCH (17:03)
[2023-12-28] MEDS: SODIUM CHLORIDE 0.9% 1,000 ML IV SCH (17:05)
[2023-12-28 21:54] LABS: ALT 14 U/L (4-49); AST 28 U/L (17-59); African American GFR (CKD) 52 (>60 ml/min/1.73 sqM); Albumin 2.7 g/dL (3.5-5.0); Albumin/Globulin Ratio 1.3; Alkaline Phosphatase 86 U/L (38-126); Anion Gap 4 mmol/L; Blood Urea Nitrogen 40 mg/dL (9-20); Calcium 7.9 mg/dL (8.4-10.2); Carbon Dioxide 23 mmol/L (22-30); Chloride 110 mmol/L (98-107); Globulin 2.1 g/dL; Glucose 90 mg/dL (74-99); Non-African American GFR(CKD) 45 (>60 ml/min/1.73 sqM); Potassium 4.3 mmol/L (3.5-5.1); Sodium 137 mmol/L (137-145); Total Bilirubin 0.6 mg/dL (0.2-1.3); Total Protein 4.8 g/dL (6.3-8.2)
--- NOTE | 2023-12-29 06:39 | XR ---
EXAMINATION TYPE: XR chest 1V portable DATE OF EXAM: 12/29/2023 COMPARISON: 12/25/2023 HISTORY: CHF TECHNIQUE: Single frontal view of the chest is obtained. FINDINGS: The heart size is normal. The pulmonary valve structure is not cephalized and congested. There is no airspace consolidation or edema. There is minimal atelectasis in the lung bases. There is no pleural effusion or pneumothorax. There is a left shoulder prosthesis otherwise the osseous structures are intact. IMPRESSION: No interval change. Probable mild bibasilar atelectasis. No overt CHF. [facility], , 12/29/2023 6:37 AM
--- NOTE | 2023-12-29 09:43 | P.PN ---
Subjective Progress Note Date: 12/29/23 Principal diagnosis: Colon cancer Patient resting comfortably today. No abdominal pain. No nausea or vomiting. Objective - Vital Signs Vital signs: Vital Signs Temp 99.0 F 12/29/23 06:54 Pulse 62 12/29/23 06:54 Resp 16 12/29/23 06:54 BP 102/62 12/29/23 06:54 Pulse Ox 95 12/29/23 06:54 FiO2 Intake & Output 12/28/23 12/29/23 12/29/23 18:59 06:59 18:59 Output Total 325 Balance -325 Output: Urine 325 Other: Voiding Method Indwelling Catheter Indwelling Catheter - Exam Abdomen: Soft, nontender, nondistended - Labs CBC & Chem 7: 12/28/23 11:02 12/28/23 21:23 Labs: Abnormal Lab Results - Last 24 Hours (Table) 12/28/23 12/28/23 12/28/23 Range/Units 04:30 04:30 11:02 RBC 3.55 L 3.65 L (4.40-5.60) X 10*6/uL Hgb 11.2 L 12.2 L (13.0-17.0) g/dL Hct 37.1 L 38.7 L (39.6-50.0) % MCV 104.5 H 106.0 H (80.0-97.0) FL MCHC 30.2 L (32.0-37.0) g/dL RDW 16.3 H (11.5-14.5) % Plt Count 122 L 99 L (140-440) X 10*3/uL Immature Gran # 0.07 H (0.00-0.04) X 10*3/uL Neutrophils # 7.79 H (1.80-7.70) X 10*3/uL Lymphocytes # 0.67 L (0.90-5.00) X 10*3/uL Eosinophils # 0.02 L (0.04-0.35) X 10*3/uL Chloride 110 H (96-109) mmol/L Carbon Dioxide 19.6 L (21.6-31.8) mmol/L BUN 32.9 H (9.0-27.0) mg/dL Creatinine (0.66-1.25) mg/dL Est GFR (CKD-EPI) 55 L (>=60) BUN/Creatinine Ratio 25.31 H (12.00-20.00) Ratio Calcium 7.9 L (8.7-10.3) mg/dL Total Protein (6.3-8.2) g/dL Albumin (3.5-5.0) g/dL 12/28/23 Range/Units 21:23 RBC (4.40-5.60) X 10*6/uL Hgb (13.0-17.0) g/dL Hct (39.6-50.0) % MCV (80.0-97.0) FL MCHC (32.0-37.0) g/dL RDW (11.5-14.5) % Plt Count (140-440) X 10*3/uL Immature Gran # (0.00-0.04) X 10*3/uL Neutrophils # (1.80-7.70) X 10*3/uL Lymphocytes # (0.90-5.00) X 10*3/uL Eosinophils # (0.04-0.35) X 10*3/uL Chloride 110 H (96-109) mmol/L Carbon Dioxide (21.6-31.8) mmol/L BUN 40 H (9.0-27.0) mg/dL Creatinine 1.44 H (0.66-1.25) mg/dL Est GFR (CKD-EPI) (>=60) BUN/Creatinine Ratio (12.00-20.00) Ratio Calcium 7.9 L (8.7-10.3) mg/dL Total Protein 4.8 L (6.3-8.2) g/dL Albumin 2.7 L (3.5-5.0) g/dL Assessment and Plan (1) Colon adenocarcinoma Narrative/Plan: 83-year-old male with colon cancer. Continue stool softeners. Increased activity per orthopedics. Continue regular diet. Current Visit: No Status: Acute Priority: High Code(s): C18.9 - MALIGNANT NEOPLASM OF COLON, UNSPECIFIED SNOMED Code(s): 310415131
--- NOTE | 2023-12-29 09:59 | P.PN ---
Subjective Progress Note Date: 12/29/23 Nick Vora, is an 83 year-old male who presented to [facility] emergency room with a chief complaint of back pain and bilateral lower extremity weakness, he was evaluated at Dr. Ashton's office and was sent to emergency room for admission. He was evaluated in the emergency room vital examination on presentation revealed a temperature of 97.4 pulse 96 respiration 20 blood pressure 123/58 pulse ox 97% on 2 L nasal cannula Laboratory data revealed a white blood count of 7.3 hemoglobin 14.3 platelet count 147 sodium 136 potassium 4.9 chloride 103 CO2 28 BUN 44 creatinine 1.32 u rine analysis revealed evidence of urinary tract infection Testing in the emergency room revealed EKG done in the emergency room revealed sinus rhythm with first-degree AV block with poor R wave progression in anterior leads possible old infarction. Prior to admission patient had a CT scan of the lumbar spine which revealed compression deformity of L3 vertebral body, with moderate to severe spinal canal stenosis and mild to moderate neural foraminal stenosis, and moderate to severe canal stenosis at L4 and moderate to severe degeneration changes in the spine Patient was admitted to medical floor for further evaluation and treatment Past medical history is significant for history of atrial fibrillation maintained on Eliquis, history of hypertension, history of hyperlipidemia, history of osteoarthritis, history of benign prostatic hypertrophy, history of decreased hearing, history of recent colonoscopy with polypectomy on November 13, 2023, with pathology positive for invasive colonic adenocarcinoma, patient will need further surgical intervention on the colon when stable medically. On review of systems patient is alert and oriented x 3 in no apparent distress there is no fever or chills no headache or dizziness no chest pain no shortness of breath no cough no nausea or vomiting no abdominal pain no diarrhea no blood in the stools no burning with urination no frequency or urgency and no hematuria. On 12/28/2023 patient was seen and examined on the medical floor, he is alert and oriented x 3 in no apparent distress, there is no fever or chills no headache or dizziness no chest pain no shortness of breath no cough no nausea or vomiting no abdominal pain no diarrhea no blood in the stools no burning with urination no frequency or urgency and no hematuria. Patient is having significantly low blood pressure last night blood pressure was 80/43, he was started on IV fluid, he was also started on midodrine 5 mg p.o. 3 times daily, consultation for cardiology was initiated, otherwise patient is doing well, will continue to follow closely. 12/29/2023 patient is alert and oriented 3 currently resting comfortably in bed blood pressure has improved awaiting cardiology inputpatient denies chest pain or shortness breath. Patient denies nausea vomiting or diarrhea. Patient denies any urinary burning or frequency. Her vital signs temp 97.9, heart rate 62, respiratory rate 16, blood pressure 102/60 with pulse is 95% on 4 L Objective - Vital Signs Vital signs: Vital Signs Temp 99.0 F 12/29/23 06:54 Pulse 62 12/29/23 06:54 Resp 16 12/29/23 06:54 BP 102/62 12/29/23 06:54 Pulse Ox 95 12/29/23 06:54 FiO2 Intake & Output 12/28/23 12/29/23 12/29/23 18:59 06:59 18:59 Output Total 325 Balance -325 Output: Urine 325 Other: Voiding Method Indwelling Catheter Indwelling Catheter - Exam In general patient is alert and oriented x 3 in no distress HEENT head normocephalic and atraumatic Neck is supple no JVD no goiter no lymphadenopathy no carotid bruit Chest examination is clear to auscultation no crackles no wheezing Cardiac exam reveals regular heart sounds S1 and S2 no gallops no murmurs Abdomen is soft nontender no organomegaly with normal bowel sounds Extremity exam reveals no edema no cyanosis or clubbing Neurological examination reveals no gross focal deficits - Labs CBC & Chem 7: 12/28/23 11:02 12/28/23 21:23 Labs: Abnormal Lab Results - Last 24 Hours (Table) 12/28/23 12/28/23 12/28/23 Range/Units 04:30 04:30 11:02 RBC 3.55 L 3.65 L (4.40-5.60) X 10*6/uL Hgb 11.2 L 12.2 L (13.0-17.0) g/dL Hct 37.1 L 38.7 L (39.6-50.0) % MCV 104.5 H 106.0 H (80.0-97.0) FL MCHC 30.2 L (32.0-37.0) g/dL RDW 16.3 H (11.5-14.5) % Plt Count 122 L 99 L (140-440) X 10*3/uL Immature Gran # 0.07 H (0.00-0.04) X 10*3/uL Neutrophils # 7.79 H (1.80-7.70) X 10*3/uL Lymphocytes # 0.67 L (0.90-5.00) X 10*3/uL Eosinophils # 0.02 L (0.04-0.35) X 10*3/uL Chloride 110 H (96-109) mmol/L Carbon Dioxide 19.6 L (21.6-31.8) mmol/L BUN 32.9 H (9.0-27.0) mg/dL Creatinine (0.66-1.25) mg/dL Est GFR (CKD-EPI) 55 L (>=60) BUN/Creatinine Ratio 25.31 H (12.00-20.00) Ratio Calcium 7.9 L (8.7-10.3) mg/dL Total Protein (6.3-8.2) g/dL Albumin (3.5-5.0) g/dL 12/28/23 Range/Units 21:23 RBC (4.40-5.60) X 10*6/uL Hgb (13.0-17.0) g/dL Hct (39.6-50.0) % MCV (80.0-97.0) FL MCHC (32.0-37.0) g/dL RDW (11.5-14.5) % Plt Count (140-440) X 10*3/uL Immature Gran # (0.00-0.04) X 10*3/uL Neutrophils # (1.80-7.70) X 10*3/uL Lymphocytes # (0.90-5.00) X 10*3/uL Eosinophils # (0.04-0.35) X 10*3/uL Chloride 110 H (96-109) mmol/L Carbon Dioxide (21.6-31.8) mmol/L BUN 40 H (9.0-27.0) mg/dL Creatinine 1.44 H (0.66-1.25) mg/dL Est GFR (CKD-EPI) (>=60) BUN/Creatinine Ratio (12.00-20.00) Ratio Calcium 7.9 L (8.7-10.3) mg/dL Total Protein 4.8 L (6.3-8.2) g/dL Albumin 2.7 L (3.5-5.0) g/dL Assessment and Plan Plan: Low back pain with bilateral lower extremity weakness. Status post lumbar fusion Evidence of urinary tract infection Underlying history of hypertension Underlying history of hyperlipidemia Underlying history of paroxysmal atrial fibrillation Underlying history of osteoarthritis Underlying history of benign prostatic hypertrophy Underlying history of decreased hearing Underlying history of invasive colonic adenocarcinoma patient will need surgical intervention in the near future At this time patient was seen and examined Home medications reviewed and reordered At this time will hold Eliquis in anticipation for surgical intervention DVT prophylaxis with SCD stockings Patient was started on IV ceftriaxone for urinary tract infection Patient is at increased surgical risk due to his multiple medical problems, however there is no medical contraindication for surgery Will continue to follow closely
[2023-12-29 10:39] LABS: Basophils # (A) 0.02 X 10*3/uL (0.00-0.10); Basophils % (A) 0.2 %; Eosinophils # (A) 0.06 X 10*3/uL (0.04-0.35); Eosinophils % (A) 0.7 %; HCT 35.1 % (39.6-50.0); HGB 10.7 g/dL (13.0-17.0); Lymphocytes # (A) 0.33 X 10*3/uL (0.90-5.00); Lymphocytes % (A) 4.1 %; MCH 32.9 pg (27.0-32.0); MCHC 30.5 g/dL (32.0-37.0); Macrocytosis (M) 2+; Mean Platelet Volume 12.2 FL (9.5-12.2); Monocytes # (A) 0.58 X 10*3/uL (0.20-1.00); Monocytes % (A) 7.2 %; NRBC Per 100 WBC 0 X 10*3/uL (0.00-0.01); Neutrophils # (A) 7.04 X 10*3/uL (1.80-7.70); Neutrophils % (A) 86.8 %; Platelet Count 89 X 10*3/uL (140-440); RBC 3.25 X 10*6/uL (4.40-5.60); RDW 16.7 % (11.5-14.5); WBC 8.11 X 10*3/uL (4.50-10.00)
--- NOTE | 2023-12-29 12:08 | P.PN ---
Subjective Progress Note Date: 12/29/23 Principal diagnosis: 1. L2-3 AO TYPE B3 HYPEREXTENSION INJURY, UNSTABLE, IN AN ANKYLOSED SPINE 2. L3 AO TYPE A4 BURST FRACTURE 3. CHRONIC L4 AO TYPE A3 FRACTURE S/P KYPHOPLASTY 4. LUMBAR STENOSIS, MODERATE TO SEVERE RELATED TO 1-3 5. SEVERE LOW BACK PAIN 6. LE WEAKNESS WITH PARAPLEGIA 7. COMPLEX MEDICAL PATIENT Patient was seen at bedside this morning on 4 S. lying in the semirecumbent position with dressing present over lumbar spine. Patient says he is having some pain to the low back at this time but it is controlled with oral medication for the most part. He says he does look forward to working with therapy later this morning. Patient denies any other significant issues at this time. Objective - Vital Signs Vital signs: Vital Signs Temp 99.0 F 12/29/23 06:54 Pulse 62 12/29/23 06:54 Resp 16 12/29/23 06:54 BP 102/62 12/29/23 06:54 Pulse Ox 95 12/29/23 06:54 FiO2 Intake & Output 12/28/23 12/29/23 12/29/23 18:59 06:59 18:59 Output Total 325 Balance -325 Output: Urine 325 Other: Voiding Method Indwelling Catheter Indwelling Catheter - Exam General Appearance: Well nourished; In distress and pain; wheelchair bound Mental Status: AOX3 Ambulation: Cannot at this time. Wheelchair only. Spine Examination Inspection -Pain with movement. -Alignment is SAG++; SVA++ due to fracture and mobility -Dressing appears to be clean, dry, intact over lumbar spine. Palpation -TTP of the midline of the lumbar spine as well as paraspinal around the L3 L4 and L5 region -Pain with any motion of the spine Range of Motion (Measured in Degrees) Cervical: -ROM able, no pain at this time. Thoracolumbar: -Unable to due to pain at this time. LSO in place. Neurological Examination Motor Strength (0-5/5) [DETAILED MYOTOMAL TESTING] Upper Extremities: -Generalized weakness. C5-T1 shows 4-/5 strength overall without focal deficits at this time. Lower Extremities: -RLE: 2-3/5 HF/KE/KF/DF/PF/EHL/FHL at this time significantly decreased from baseline -LLE: 3-4-/5 HF/KE/KF/DF/PF/EHL/FHL Sensation (0-2) [DETAILED DERMATOMAL TESTING] -Dermatomal deficits in L2-3, L3-4 on the right with paresthesias in b/l LE global Reflexes (0-4+) Upper Extremities: -2/4 all at this time. No hyperreflexia Lower Extremities: -Globally diminished 1/4 Special Tests -Casas's: NEG Babinski: NEG Clonus: NEG Straight Leg Raise: ++RIGHT Crossed SLR: POS Femoral Stretch: ++RIGHT Spurling's: POS Upper Limb Tension: NEG - Labs CBC & Chem 7: 12/29/23 03:49 12/28/23 21:23 Labs: Abnormal Lab Results - Last 24 Hours (Table) 12/28/23 12/28/23 12/29/23 Range/Units 11:02 21:23 03:49 RBC 3.65 L 3.25 L (4.30-5.90) m/uL Hgb 12.2 L 10.7 L (13.0-17.5) gm/dL Hct 38.7 L 35.1 L (39.0-53.0) % MCV 106.0 H 108.0 H (80.0-100.0) fL MCH 32.9 H (27.0-32.0) pg MCHC 30.5 L (32.0-37.0) g/dL RDW 16.7 H (11.5-14.5) % Plt Count 99 L 89 L (150-450) k/uL Immature Gran # 0.08 H (0.00-0.04) X 10*3/uL Lymphocytes # 0.33 L (0.90-5.00) X 10*3/uL Macrocytosis (manual) 2+ A Chloride 110 H (98-107) mmol/L BUN 40 H (9-20) mg/dL Creatinine 1.44 H (0.66-1.25) mg/dL Calcium 7.9 L (8.4-10.2) mg/dL Total Protein 4.8 L (6.3-8.2) g/dL Albumin 2.7 L (3.5-5.0) g/dL Assessment and Plan Assessment: 1. L2-3 AO TYPE B3 HYPEREXTENSION INJURY, UNSTABLE, IN AN ANKYLOSED SPINE 2. L3 AO TYPE A4 BURST FRACTURE 3. CHRONIC L4 AO TYPE A3 FRACTURE S/P KYPHOPLASTY 4. LUMBAR STENOSIS, MODERATE TO SEVERE RELATED TO 1-3 5. SEVERE LOW BACK PAIN 6. LE WEAKNESS WITH PARAPLEGIA 7. COMPLEX MEDICAL PATIENT -Postop day 2 status post OPEN TREATMENT L2-3 AO TYPE B3/A4 HPEREXTENSION FRACTURE L1-S1 SEGMENTAL INSTRUMENTATION L1-L4 POSTEROLATERAL INSTRUMENTED FUSION Plan: 1. L2-3 AO TYPE B3 HYPEREXTENSION INJURY, UNSTABLE, IN AN ANKYLOSED SPINE; L3 AO TYPE A4 BURST FRACTURE; CHRONIC L4 AO TYPE A3 FRACTURE S/P KYPHOPLASTY; LUMBAR STENOSIS, MODERATE TO SEVERE RELATED TO 1-3; SEVERE LOW BACK PAIN; LE WEAKNESS WITH PARAPLEGIA -surgery performed 12/27/2023 OPEN TREATMENT L2-3 AO TYPE B3/A4 HPEREXTENSION FRACTURE; L1-S1 SEGMENTAL INSTRUMENTATION; L1-L4 POST EROLATERAL INSTRUMENTED FUSION. patient stable at bedside this morning. Dressing changed at bedside this morning. [place] are well aligned and intact. Negative for any active drainage. Patient to be weightbearing as tolerated with walker and brace while up and about with therapy. Pain medication as needed. We will continue to follow patient during stay in hospital. Discharge pending 2. Appreciate medical management 3. Pain management - tylenol' flexeril; gabapentin 4. DVT prophylaxis - bladimir hose; scds 5. GI prophylaxis - colace 6. PT/OT -weightbearing as tolerated with walker and brace follow-up in about 7. Encourage incentive spirometer use 8. Discharge planning -pending Time with Patient: Less than 30
[2023-12-29 13:15] LABS: ALT 18 U/L (10-49); AST 36 U/L (14-35); Alkaline Phosphatase 91 U/L (41-126); BUN/Creat Ratio 24.33 Ratio (12.00-20.00); Blood Urea Nitrogen 36.5 mg/dL (9.0-27.0); Carbon Dioxide 20.7 mmol/L (21.6-31.8); Chloride 109 mmol/L (96-109); Globulin 1.5 g/dL (1.6-3.3); Glucose 97 mg/dL (70-110); Potassium 5.4 mmol/L (3.5-5.5); Sodium 138 mmol/L (135-145); Total Bilirubin 0.3 mg/dL (0.3-1.2); Total Protein 4.5 g/dL (6.2-8.2)
[2023-12-29] MEDS: guaiFENesin SYRUP 100MG/5ML 200 MG/10 ML CUP PO PRN (13:18)
--- NOTE | 2023-12-29 15:27 | P.CRDCN ---
History of Present Illness Consult date: 12/29/23 History of present illness: HISTORY OF PRESENTING ILLNESS Patient with past medical history of paroxysmal atrial fibrillation, mild CAD, tobacco smoker. His last echo shows an EF of 25 to 30%, moderate to severe pulmonary hypertension, moderate tricuspid regurgitation, last heart cath from 2013 showed mild CAD. He has history of invasive adenocarcinoma, REVIEW OF SYSTEMS 14 point review of system is negative except what is mentioned above in HPI. PHYSICAL EXAMINATION Vital signs reviewed. Head: Normocephalic. Eyes: Sclerae nonicteric. Neck: Brisk carotid upstroke, no jugular venous distention. Lungs: Clear to auscultation. Heart: Regular rate and rhythm, S1-S2, no S3, no murmur or rub. Abdomen: Soft nontender, positive bowel sounds. Extremities: No edema, intact distal pulses. Neuro: Alert, oritented, no focal deficits. Detailed neuro exam was not perf ormed. ASSESSMENT Hypotension History of known tachycardia induced cardiomyopathy Atrial fibrillation, currently in sinus rhythm Severe pulmonary hypertension Invasive adenocarcinoma Status post lumbar fusion UTI PLAN Decrease amiodarone to 200 mg daily for atrial fibrillation Stop metoprolol because of low blood pressure Midodrine as needed Patient is having low blood pressure but he is asymptomatic from it. His renal function is appropriate with good urine output and his mental status has not changed. I would not be very aggressive with his midodrine as this can exacerbate his cardiomyopathy. Pressure tolerates on outpatient basis, reintroduce guideline directed medical therapy Overall prognosis is guarded. Varun Doyle MD, FAC, RPVI Thank you for allowing [facility] to participate in this patient's care. Feel free to reach out in case of any followup questions. Past Medical History Past Medical History: Atrial Fibrillation, CVA/TIA, GERD/Reflux, Hearing Disorder / Deafness, Hyperlipidemia, Osteoarthritis (OA), Prostate Disorder Additional Past Medical History / Comment(s): Tinnitus, Hx kidney stones, BPH, LUNG SCARRING. 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 History of Any Multi-Drug Resistant Organisms: None Reported Past Surgical History: Adenoidectomy, Ear Surgery, Heart Catheterization, Joint Replacement, Tonsillectomy Additional Past Surgical History / Comment(s): Oral surgery, diana knee replacements, partial thyroidectomy, diana cataracts. EGD, COLONOSCOPY cardioversion Past Anesthesia/Blood Transfusion Reactions: No Reported Reaction Past Psychological History: Anxiety Smoking Status: Former smoker Past Alcohol Use History: None Reported Additional Past Alcohol Use History / Comment(s): quit smoking 1986, started smoking age 17 Past Drug Use History: None Reported - Past Family History Mother Family Medical History: No Reported History Additional Family Medical History / Comment(s): . Medications and Allergies Home Medications Medication Instructions Recorded Confirmed Type Sertraline HCl [Zoloft] 200 mg PO DAILY 10/30/13 12/25/23 History Acetaminophen Tab [Tylenol] 1,000 mg PO HS 08/08/18 12/25/23 History Metoprolol Tartrate [Lopressor] 25 mg PO BID 07/01/21 12/25/23 History Amiodarone [Cordarone] 200 mg PO BID tab 12/05/23 12/25/23 Rx Apixaban [Eliquis] 2.5 mg PO BID #0 tab 12/05/23 12/25/23 Rx Dapagliflozin Propanediol [Farxiga] 10 mg PO DAILY tab 12/05/23 12/25/23 Rx Docusate [Colace] 100 mg PO BID cap 12/05/23 12/25/23 Rx Furosemide [Lasix] 20 mg PO DAILY tab 12/05/23 12/25/23 Rx Sacubitril/Valsartan [Entresto 24 1 tab PO BID 12/25/23 12/25/23 History mg-26 mg Tablet] Temazepam [Restoril] 7.5 mg PO HS 12/25/23 12/25/23 History guaiFENesin SYRUP 100MG/5ML 200 mg PO Q4H PRN 12/25/23 12/25/23 History [Robitussin] Allergies Allergy/AdvReac Type Severity Reaction Status Date / Time hydrocodone [From Lortab] Allergy SEVERE Verified 12/25/23 15:48 ABDOMINAL AND TROUBLE BREATHING hydrocodone bitartrate Allergy Anaphylaxis Verified 12/25/23 15:48 [From Vicodin] Penicillins Allergy Anaphylaxis Verified 12/25/23 15:48 propoxyphene napsylate Allergy Anaphylaxis Verified 12/25/23 15:48 [From Darvocet-N 100] tamsulosin HCl [From Flomax] Allergy Anaphylaxis Verified 12/25/23 15:48 Physical Exam Vitals: Vital Signs Temp Pulse Pulse Resp BP Pulse Ox 12/29/23 14:06 97.7 F 77 17 78/48 94 L 12/29/23 08:50 92 62 16 12/29/23 06:54 99.0 F 62 16 102/62 95 12/29/23 00:59 97.9 F 100 16 84/47 96 12/28/23 18:55 98.4 F 94 17 83/46 98 Intake and Output 12/29/23 12/29/23 12/29/23 06:59 14:59 22:59 Output Total 325 Balance -325 Output: Urine 325 Other: Voiding Method Indwelling Catheter Results 12/29/23 03:49 12/29/23 03:49 Cardiac Enzymes 12/28/23 12/29/23 Range/Units 21:23 03:49 AST 28 36 H (17-59) U/L CBC 12/29/23 Range/Units 03:49 WBC 8.11 (4.50-10.00) X 10*3/uL RBC 3.25 L (4.40-5.60) X 10*6/uL Hgb 10.7 L (13.0-17.0) g/dL Hct 35.1 L (39.6-50.0) % Plt Count 89 L (140-440) X 10*3/uL Comprehensive Metabolic Panel 12/28/23 12/29/23 Range/Units 21:23 03:49 Sodium 137 138 (137-145) mmol/L Potassium 4.3 5.4 (3.5-5.1) mmol/L Chloride 110 H 109 (98-107) mmol/L Carbon Dioxide 23 20.7 L (22-30) mmol/L BUN 40 H 36.5 H (9-20) mg/dL Creatinine 1.44 H 1.5 (0.66-1.25) mg/dL Glucose 90 97 (74-99) mg/dL Calcium 7.9 L 8.0 L (8.4-10.2) mg/dL AST 28 36 H (17-59) U/L ALT 14 18 (4-49) U/L Alkaline Phosphatase 86 91 (38-126) U/L Total Protein 4.8 L 4.5 L (6.3-8.2) g/dL Albumin 2.7 L 3.0 L (3.5-5.0) g/dL Current Medications Generic Name Dose Route Start Last Admin Trade Name Freq PRN Reason Stop Dose Admin Acetaminophen 650 mg 12/27/23 18:00 12/29/23 12:18 Acetaminophen Tab 325 Mg Tab PO 650 mg Q6HR KALEY Administration Amiodarone HCl 200 mg 12/30/23 09:00 Amiodarone 200 Mg Tab PO DAILY KALEY Cyclobenzaprine HCl 5 mg 12/27/23 13:47 12/27/23 22:13 Cyclobenzaprine 5 Mg Tab PO 5 mg TID PRN Administration Muscle Spasm Docusate Sodium 100 mg 12/25/23 21:00 12/29/23 08:50 Docusate 100 Mg Cap PO 100 mg BID KALEY Administration Gabapentin 300 mg 12/27/23 16:00 12/29/23 15:15 Gabapentin 300 Mg Cap PO 300 mg TID KALEY Administration Guaifenesin 200 mg 12/25/23 16:45 12/29/23 13:18 Guaifenesin Syrup 100mg/5ml 200 Mg/10 Ml Cup PO 200 mg Q4H PRN Administration Congestion Hydromorphone HCl 0.5 mg 12/27/23 13:47 Hydromorphone 0.5 Mg/0.5 Ml Syringe IVP Q3HR PRN Pain Scale 4 - 6 Hydromorphone HCl 1 mg 12/27/23 15:47 Hydromorphone 1 Mg/Ml 1 Ml Syringe IVP Q3HR PRN Pain Scale of 7 - 10 Ceftriaxone Sodium 1 gm/ 50 mls @ 100 mls/hr 12/26/23 13:30 12/29/23 08:50 Sodium Chloride IVPB 100 mls/hr Q24HR KALEY Administration Protocol Magnesium Hydroxide 2,400 mg 12/27/23 13:47 Magnesium Hydroxide 2,400 Mg/30 Ml Cup PO DAILY PRN Constipation Midodrine 5 mg 12/28/23 18:51 Midodrine 5 Mg Tab PO AC-TID PRN Blood Pressure - Low Naloxone HCl 0.2 mg 12/25/23 15:12 Naloxone 0.4 Mg/Ml 1 Ml Vial IV 01/24/24 15:11 Q2M PRN Opioid Reversal Ondansetron HCl 4 mg 12/27/23 13:47 Ondansetron 4 Mg/2 Ml Vial IVP Q8HR PRN Nausea And Vomiting Petrolatum 1 applic 12/26/23 12:27 Zinc Oxide Paste (Z-Guard) 1 Applic TOPICAL Q2HR PRN Wound Healing Protocol Senna/Docusate Sodium 2 each 12/27/23 13:47 Sennosides-Docusate Sodium 1 Each Tab PO DAILY PRN Constipation Sertraline HCl 200 mg 12/26/23 09:00 12/29/23 08:50 Sertraline 100 Mg Tab PO 200 mg DAILY KALEY Administration Temazepam 7.5 mg 12/25/23 21:00 12/28/23 21:16 Temazepam 7.5 Mg Cap PO 7.5 mg HS KALEY Administration Intake and Output 12/29/23 12/29/23 12/29/23 06:59 14:59 22:59 Output Total 325 Balance -325 Output: Urine 325 Other: Voiding Method Indwelling Catheter 12/29/23 03:49 12/29/23 03:49
[2023-12-30 08:40] LABS: ALT 12 U/L (10-49); AST 18 U/L (14-35); Albumin 2.8 g/dL (3.8-4.9); Alkaline Phosphatase 97 U/L (41-126); BUN/Creat Ratio 28.46 Ratio (12.00-20.00); Calcium 7.9 mg/dL (8.7-10.3); Carbon Dioxide 22.6 mmol/L (21.6-31.8); Chloride 107 mmol/L (96-109); Globulin 1.4 g/dL (1.6-3.3); Glucose 95 mg/dL (70-110); Potassium 4.6 mmol/L (3.5-5.5); Sodium 138 mmol/L (135-145); Total Bilirubin 0.4 mg/dL (0.3-1.2); Total Protein 4.2 g/dL (6.2-8.2)
[2023-12-30] MEDS ORDERED: AMIODARONE 200 MG TAB PO SCH (09:00)
[2023-12-30] MEDS: MAGNESIUM HYDROXIDE 2,400 MG/30 ML CUP PO PRN (09:27)
[2023-12-30] MEDS: SENNOSIDES-DOCUSATE SODIUM 1 EACH TAB PO PRN (09:27)
[2023-12-30] MEDS: AMIODARONE 200 MG TAB PO SCH (09:28)
[2023-12-30 09:30] LABS: Basophils # (A) 0.01 X 10*3/uL (0.00-0.10); Basophils % (A) 0.2 %; Eosinophils # (A) 0.08 X 10*3/uL (0.04-0.35); Eosinophils % (A) 1.3 %; HCT 30.3 % (39.6-50.0); HGB 9.6 g/dL (13.0-17.0); Immature Platelet Fraction 5.3 % (1.1-6.1); Lymphocytes # (A) 0.41 X 10*3/uL (0.90-5.00); Lymphocytes % (A) 6.8 %; MCH 33.3 pg (27.0-32.0); MCHC 31.7 g/dL (32.0-37.0); MCV 105.2 FL (80.0-97.0); Monocytes # (A) 0.49 X 10*3/uL (0.20-1.00); Monocytes % (A) 8.1 %; NRBC Per 100 WBC 0 X 10*3/uL (0.00-0.01); Neutrophils # (A) 5.02 X 10*3/uL (1.80-7.70); Neutrophils % (A) 82.6 %; Platelet Count 77 X 10*3/uL (140-440); RBC 2.88 X 10*6/uL (4.40-5.60); RDW 16.5 % (11.5-14.5); WBC 6.07 X 10*3/uL (4.50-10.00)
--- NOTE | 2023-12-30 11:16 | P.PN ---
Subjective Progress Note Date: 12/30/23 Principal diagnosis: 1. L2-3 AO TYPE B3 HYPEREXTENSION INJURY, UNSTABLE, IN AN ANKYLOSED SPINE 2. L3 AO TYPE A4 BURST FRACTURE 3. CHRONIC L4 AO TYPE A3 FRACTURE S/P KYPHOPLASTY 4. LUMBAR STENOSIS, MODERATE TO SEVERE RELATED TO 1-3 5. SEVERE LOW BACK PAIN 6. LE WEAKNESS WITH PARAPLEGIA 7. COMPLEX MEDICAL PATIENT Patient was seen at bedside this morning on 4 S. lying in the semirecumbent position with dressing present over lumbar spine. Patient says he is having some pain to the low back at this time but it is controlled with oral medication for the most part. He says he does look forward to working with therapy later this morning. Patient denies any other significant issues at this time. Objective - Vital Signs Vital signs: Vital Signs Temp 97.7 F 12/30/23 07:46 Pulse 117 H 12/30/23 07:51 Resp 15 12/30/23 07:46 BP 82/42 12/30/23 09:12 Pulse Ox 90 L 12/30/23 07:51 FiO2 Intake & Output 12/29/23 12/30/23 12/30/23 18:59 06:59 18:59 Output Total 400 Balance -400 Output: Urine 400 Other: Voiding Method Indwelling Catheter Indwelling Catheter - Exam General Appearance: Well nourished; In distress and pain; wheelchair bound Mental Status: AOX3 Ambulation: Cannot at this time. Wheelchair only. Spine Examination Inspection -Pain with movement. -Alignment is SAG++; SVA++ due to fracture and mobility -Dressing appears to be clean, dry, intact over lumbar spine. Palpation -TTP of the midline of the lumbar spine as well as paraspinal around the L3 L4 and L5 region -Pain with any motion of the spine Range of Motion (Measured in Degrees) Cervical: -ROM able, no pain at this time. Thoracolumbar: -Unable to due to pain at this time. LSO in place. Neurological Examination Motor Strength (0-5/5) [DETAILED MYOTOMAL TESTING] Upper Extremities: -Generalized weakness. C5-T1 shows 4-/5 strength overall without focal deficits at this time. Lower Extremities: -RLE: 2-3/5 HF/KE/KF/DF/PF/EHL/FHL at this time significantly decreased from baseline -LLE: 3-4-/5 HF/KE/KF/DF/PF/EHL/FHL Sensation (0-2) [DETAILED DERMATOMAL TESTING] -Dermatomal deficits in L2-3, L3-4 on the right with paresthesias in b/l LE global Reflexes (0-4+) Upper Extremities: -2/4 all at this time. No hyperreflexia Lower Extremities: -Globally diminished 1/4 Special Tests -Casas's: NEG Babinski: NEG Clonus: NEG Straight Leg Raise: ++RIGHT Crossed SLR: POS Femoral Stretch: ++RIGHT Spurling's: POS Upper Limb Tension: NEG - Labs CBC & Chem 7: 12/30/23 03:36 12/30/23 03:36 Labs: Abnormal Lab Results - Last 24 Hours (Table) 12/29/23 12/30/23 12/30/23 Range/Units 03:49 03:36 03:36 RBC 2.88 L (4.40-5.60) X 10*6/uL Hgb 9.6 L (13.0-17.0) g/dL Hct 30.3 L (39.6-50.0) % MCV 105.2 H (80.0-97.0) FL MCH 33.3 H (27.0-32.0) pg MCHC 31.7 L (32.0-37.0) g/dL RDW 16.5 H (11.5-14.5) % Plt Count 77 L (140-440) X 10*3/uL Immature Gran # 0.06 H (0.00-0.04) X 10*3/uL Lymphocytes # 0.41 L (0.90-5.00) X 10*3/uL Carbon Dioxide 20.7 L (21.6-31.8) mmol/L BUN 36.5 H 37.0 H (9.0-27.0) mg/dL Est GFR (CKD-EPI) 46 L 55 L (>=60) BUN/Creatinine Ratio 24.33 H 28.46 H (12.00-20.00) Ratio Calcium 8.0 L 7.9 L (8.7-10.3) mg/dL AST 36 H (14-35) U/L Total Protein 4.5 L 4.2 L (6.2-8.2) g/dL Albumin 3.0 L 2.8 L (3.8-4.9) g/dL Globulin 1.5 L 1.4 L (1.6-3.3) g/dL Assessment and Plan Assessment: 1. L2-3 AO TYPE B3 HYPEREXTENSION INJURY, UNSTABLE, IN AN ANKYLOSED SPINE 2. L3 AO TYPE A4 BURST FRACTURE 3. CHRONIC L4 AO TYPE A3 FRACTURE S/P KYPHOPLASTY 4. LUMBAR STENOSIS, MODERATE TO SEVERE RELATED TO 1-3 5. SEVERE LOW BACK PAIN 6. LE WEAKNESS WITH PARAPLEGIA 7. COMPLEX MEDICAL PATIENT -Postop day 3 status post OPEN TREATMENT L2-3 AO TYPE B3/A4 HPEREXTENSION FRACTURE L1-S1 SEGMENTAL INSTRUMENTATION L1-L4 POSTEROLATERAL INSTRUMENTED FUSION Plan: 1. L2-3 AO TYPE B3 HYPEREXTENSION INJURY, UNSTABLE, IN AN ANKYLOSED SPINE; L3 AO TYPE A4 BURST FRACTURE; CHRONIC L4 AO TYPE A3 FRACTURE S/P KYPHOPLASTY; LUMBAR STENOSIS, MODERATE TO SEVERE RELATED TO 1-3; SEVERE LOW BACK PAIN; LE WEAKNESS WITH PARAPLEGIA -surgery performed 12/27/2023 OPEN TREATMENT L2-3 AO TYPE B3/A4 HPEREXTENSION FRACTURE; L1-S1 SEGMENTAL INSTRUMENTATION; L1-L4 POSTEROLATERAL INSTRUMENTED FUSION. patient stable at bedside this morning. Dressing clean, dry and itnact. [place] are well aligned and intact. Negative for any active drainage. Patient to be weightbearing as tolerated with walker and brace while up and about with therapy. Pain medication as needed. Admission moved over to medicine. Patient is stable from orthopedic standpoint for discharge. Orthopedics will be available as needed to see patient. Follow- up in office in [address] Ashton. discharge per medicine 2. Appreciate medical management 3. Pain management - tylenol' flexeril; gabapentin 4. DVT prophylaxis - bladimir hose; scds 5. GI prophylaxis - colace 6. PT/OT -weightbearing as tolerated with walker and brace follow-up in about 7. Encourage incentive spirometer use 8. Discharge planning -pending per medicine Time with Patient: Less than 30
--- NOTE | 2023-12-30 12:15 | P.PN ---
Subjective Progress Note Date: 12/30/23 SURGICAL PROGRESS NOTE HISTORY OF PRESENT ILLNESS: Surgical service following regards to patient's colon cancer. Patient lying in bed comfortably. Denies abdominal pain. Denies any nausea or vomiting. He is having flatus. Afebrile. Mildly tachycardic. WBC 6.07 hemoglobin is down from 10.7 and 9.6 platelets are down from 89-77 PHYSICAL EXAM: VITAL SIGNS: Reviewed. GENERAL: Well-developed in no acute distress. ABDOMEN: Soft. Nondistended. Nontender. NEUROLOGIC: Alert and oriented. Cranial nerves II through XII grossly intact. ASSESSMENT: 1. Colon adenocarcinoma 2. Status post recent back surgery 3. Anemia 4. Thrombocytopenia PLAN: -No plans for surgical intervention during this admission. Colectomy has been deferred during this admission due to high surgical risk -Recommend high protein diets -Continue supportive care Physician Meter Reader Inspector note has been reviewed by physician. Signing provider agrees with the documented findings, assessment, and plan of care. Objective - Vital Signs Vital signs: Vital Signs Temp 97.7 F 12/30/23 07:46 Pulse 117 H 12/30/23 07:51 Resp 15 12/30/23 07:46 BP 82/42 12/30/23 09:12 Pulse Ox 90 L 12/30/23 07:51 FiO2 Intake & Output 12/29/23 12/30/23 12/30/23 18:59 06:59 18:59 Output Total 400 Balance -400 Output: Urine 400 Other: Voiding Method Indwelling Catheter Indwelling Catheter - Labs CBC & Chem 7: 12/30/23 03:36 12/30/23 03:36 Labs: Abnormal Lab Results - Last 24 Hours (Table) 12/29/23 12/30/23 12/30/23 Range/Units 03:49 03:36 03:36 RBC 2.88 L (4.40-5.60) X 10*6/uL Hgb 9.6 L (13.0-17.0) g/dL Hct 30.3 L (39.6-50.0) % MCV 105.2 H (80.0-97.0) FL MCH 33.3 H (27.0-32.0) pg MCHC 31.7 L (32.0-37.0) g/dL RDW 16.5 H (11.5-14.5) % Plt Count 77 L (140-440) X 10*3/uL Immature Gran # 0.06 H (0.00-0.04) X 10*3/uL Lymphocytes # 0.41 L (0.90-5.00) X 10*3/uL Carbon Dioxide 20.7 L (21.6-31.8) mmol/L BUN 36.5 H 37.0 H (9.0-27.0) mg/dL Est GFR (CKD-EPI) 46 L 55 L (>=60) BUN/Creatinine Ratio 24.33 H 28.46 H (12.00-20.00) Ratio Calcium 8.0 L 7.9 L (8.7-10.3) mg/dL AST 36 H (14-35) U/L Total Protein 4.5 L 4.2 L (6.2-8.2) g/dL Albumin 3.0 L 2.8 L (3.8-4.9) g/dL Globulin 1.5 L 1.4 L (1.6-3.3) g/dL
[2023-12-30] MEDS: MIDODRINE 5 MG TAB PO PRN (12:41)
[2023-12-30] MEDS: APIXABAN 2.5 MG TABLET PO SCH (13:31)
[2023-12-30] MEDS: SODIUM CHLORIDE 0.9% 500 ML 200 ML IV ONE (14:13)
--- NOTE | 2023-12-30 14:24 | P.PN ---
Subjective Progress Note Date: 12/30/23 Nick Vora, is an 83 year-old male who presented to [facility] emergency room with a chief complaint of back pain and bilateral lower extremity weakness, he was evaluated at Dr. Ashton's office and was sent to emergency room for admission. He was evaluated in the emergency room vital examination on presentation revealed a temperature of 97.4 pulse 96 respiration 20 blood pressure 123/58 pulse ox 97% on 2 L nasal cannula Laboratory data revealed a white blood count of 7.3 hemoglobin 14.3 platelet count 147 sodium 136 potassium 4.9 chloride 103 CO2 28 BUN 44 creatinine 1.32 u rine analysis revealed evidence of urinary tract infection Testing in the emergency room revealed EKG done in the emergency room revealed sinus rhythm with first-degree AV block with poor R wave progression in anterior leads possible old infarction. Prior to admission patient had a CT scan of the lumbar spine which revealed compression deformity of L3 vertebral body, with moderate to severe spinal canal stenosis and mild to moderate neural foraminal stenosis, and moderate to severe canal stenosis at L4 and moderate to severe degeneration changes in the spine Patient was admitted to medical floor for further evaluation and treatment Past medical history is significant for history of atrial fibrillation maintained on Eliquis, history of hypertension, history of hyperlipidemia, history of osteoarthritis, history of benign prostatic hypertrophy, history of decreased hearing, history of recent colonoscopy with polypectomy on November 13, 2023, with pathology positive for invasive colonic adenocarcinoma, patient will need further surgical intervention on the colon when stable medically. On review of systems patient is alert and oriented x 3 in no apparent distress there is no fever or chills no headache or dizziness no chest pain no shortness of breath no cough no nausea or vomiting no abdominal pain no diarrhea no blood in the stools no burning with urination no frequency or urgency and no hematuria. On 12/28/2023 patient was seen and examined on the medical floor, he is alert and oriented x 3 in no apparent distress, there is no fever or chills no headache or dizziness no chest pain no shortness of breath no cough no nausea or vomiting no abdominal pain no diarrhea no blood in the stools no burning with urination no frequency or urgency and no hematuria. Patient is having significantly low blood pressure last night blood pressure was 80/43, he was started on IV fluid, he was also started on midodrine 5 mg p.o. 3 times daily, consultation for cardiology was initiated, otherwise patient is doing well, will continue to follow closely. 12/29/2023 patient is alert and oriented 3 currently resting comfortably in bed blood pressure has improved awaiting cardiology inputpatient denies chest pain or shortness breath. Patient denies nausea vomiting or diarrhea. Patient denies any urinary burning or frequency. Her vital signs temp 97.9, heart rate 62, respiratory rate 16, blood pressure 102/60 with pulse is 95% on 4 L On 12/30/2023 patient was seen and examined on the medical floor, he is alert and oriented x 3 in no apparent distress, there is no fever or chills no headache or dizziness no chest pain no shortness of breath no cough no nausea or vomiting no abdominal pain no diarrhea and no urinary symptoms. Patient has significant hypotension, he was evaluated yesterday by cardiology Dr. Doyle, at that time his dose of amiodarone was decreased to 200 mg once daily, and metoprolol was discontinued, today patient continues to be hypotensive, he is currently in atrial fibrillation with a heart rate of 117, Dr. Eller was contacted earlier by the nurse, and his cardiac medications are being readjusted again, blood culture urine culture and chest x-ray were ordered to rule out any infectious process causing hypotension. Will continue to follow closely. Objective - Vital Signs Vital signs: Vital Signs Temp 97.7 F 12/30/23 07:46 Pulse 117 H 12/30/23 07:51 Resp 15 12/30/23 07:46 BP 82/42 12/30/23 09:12 Pulse Ox 90 L 12/30/23 07:51 FiO2 Intake & Output 12/29/23 12/30/23 12/30/23 18:59 06:59 18:59 Output Total 400 Balance -400 Output: Urine 400 Other: Voiding Method Indwelling Catheter Indwelling Catheter - Exam In general patient is alert and oriented x 3 in no distress HEENT head normocephalic and atraumatic Neck is supple no JVD no goiter no lymphadenopathy no carotid bruit Chest examination is clear to auscultation no crackles no wheezing Cardiac exam reveals regular heart sounds S1 and S2 no gallops no murmurs Abdomen is soft nontender no organomegaly with normal bowel sounds Extremity exam reveals no edema no cyanosis or clubbing Neurological examination reveals no gross focal deficits - Labs CBC & Chem 7: 11/11/24 03:36 12/30/23 03:36 Labs: Abnormal Lab Results - Last 24 Hours (Table) 12/29/23 12/29/23 12/30/23 Range/Units 03:49 03:49 03:36 RBC 3.25 L 2.88 L (4.40-5.60) X 10*6/uL Hgb 10.7 L 9.6 L (13.0-17.0) g/dL Hct 35.1 L 30.3 L (39.6-50.0) % MCV 108.0 H 105.2 H (80.0-97.0) FL MCH 32.9 H 33.3 H (27.0-32.0) pg MCHC 30.5 L 31.7 L (32.0-37.0) g/dL RDW 16.7 H 16.5 H (11.5-14.5) % Plt Count 89 L 77 L (140-440) X 10*3/uL Immature Gran # 0.08 H 0.06 H (0.00-0.04) X 10*3/uL Lymphocytes # 0.33 L 0.41 L (0.90-5.00) X 10*3/uL Macrocytosis (manual) 2+ A Carbon Dioxide 20.7 L (21.6-31.8) mmol/L BUN 36.5 H (9.0-27.0) mg/dL Est GFR (CKD-EPI) 46 L (>=60) BUN/Creatinine Ratio 24.33 H (12.00-20.00) Ratio Calcium 8.0 L (8.7-10.3) mg/dL AST 36 H (14-35) U/L Total Protein 4.5 L (6.2-8.2) g/dL Albumin 3.0 L (3.8-4.9) g/dL Globulin 1.5 L (1.6-3.3) g/dL 12/30/23 Range/Units 03:36 RBC (4.40-5.60) X 10*6/uL Hgb (13.0-17.0) g/dL Hct (39.6-50.0) % MCV (80.0-97.0) FL MCH (27.0-32.0) pg MCHC (32.0-37.0) g/dL RDW (11.5-14.5) % Plt Count (140-440) X 10*3/uL Immature Gran # (0.00-0.04) X 10*3/uL Lymphocytes # (0.90-5.00) X 10*3/uL Macrocytosis (manual) Carbon Dioxide (21.6-31.8) mmol/L BUN 37.0 H (9.0-27.0) mg/dL Est GFR (CKD-EPI) 55 L (>=60) BUN/Creatinine Ratio 28.46 H (12.00-20.00) Ratio Calcium 7.9 L (8.7-10.3) mg/dL AST (14-35) U/L Total Protein 4.2 L (6.2-8.2) g/dL Albumin 2.8 L (3.8-4.9) g/dL Globulin 1.4 L (1.6-3.3) g/dL Assessment and Plan Plan: Low back pain with bilateral lower extremity weakness. Status post lumbar fusion Evidence of urinary tract infection Underlying history of hypertension Underlying history of hyperlipidemia Underlying history of paroxysmal atrial fibrillation Underlying history of osteoarthritis Underlying history of benign prostatic hypertrophy Underlying history of decreased hearing Underlying history of invasive colonic adenocarcinoma patient will need surgical intervention in the near future At this time patient was seen and examined Home medications reviewed and reordered At this time will hold Eliquis in anticipation for surgical intervention DVT prophylaxis with SCD stockings Patient was started on IV ceftriaxone for urinary tract infection Patient is at increased surgical risk due to his multiple medical problems, however there is no medical contraindication for surgery Will continue to follow closely
--- NOTE | 2023-12-30 14:28 | P.PN ---
Subjective Progress Note Date: 12/30/23 HISTORY OF PRESENTING ILLNESS Patient with past medical history of paroxysmal atrial fibrillation, mild CAD, tobacco smoker. His last echo shows an EF of 25 to 30%, moderate to severe pulmonary hypertension, moderate tricuspid regurgitation, last heart cath from 2013 showed mild CAD. He has history of invasive adenocarcinoma, 12/30/2023 Patient is seen and examined. Patient remains tachycardic and EKG obtained which revealed sinus rhythm with first-degree block, PVCs.Request the patient be placed on monitor tech. Regarding Eliquis, this has not been resumed but we have received clearance from orthopedic surgery. Blood pressure manual 82/42. Heart rate is 113. Patient appears to be asymptomatic with low blood pressure readings. We will order a small fluid bolus obtain UA to make sure patient is not septic and if blood pressures are not improved, transfer the patient to ICU. PHYSICAL EXAMINATION Vital signs reviewed. Head: Normocephalic. Eyes: Sclerae nonicteric. Neck: Brisk carotid upstroke, no jugular venous distention. Lungs: Clear to auscultation. Heart: Regular rate and rhythm, S1-S2, no S3, no murmur or rub. Abdomen: Soft nontender, positive bowel sounds. Extremities: No edema, intact distal pulses. Neuro: Alert, oritented, no focal deficits. Detailed neuro exam was not performed. ASSESSMENT Hypotension History of known tachycardia induced cardiomyopathy Atrial fibrillation, currently in sinus rhythm Severe pulmonary hypertension Invasive adenocarcinoma Status post lumbar fusion UTI PLAN Resume Eliquis 2.5 mg twice daily, lower dose due to borderline renal function Increase frequency of amiodarone to 200 mg twice daily for atrial fibrillation Midodrine as needed Patient is having low blood pressure but he is asymptomatic from it. His renal function is appropriate with good urine output and his mental status has not changed. I would not be very aggressive with his midodrine as this can exacerbate his cardiomyopathy. Fluid bolus 0.9 normal saline at 200 cc Obtain UA and DIRECTOR OF RESIDENTIAL SERVICES If blood pressure readings are not improving, patient may need to be transferred to the intensive care unit. Overall prognosis is guarded. Nurse practitioner note has been reviewed, I agree with documented findings and plan of care. Patient was seen and examined. Objective - Vital Signs Vital signs: Vital Signs Temp 97.7 F 12/30/23 07:46 Pulse 117 H 12/30/23 07:51 Resp 15 12/30/23 07:46 BP 96/55 12/30/23 07:51 Pulse Ox 90 L 12/30/23 07:51 FiO2 Intake & Output 12/29/23 12/30/23 12/30/23 18:59 06:59 18:59 Output Total 400 Balance -400 Output: Urine 400 Other: Voiding Method Indwelling Catheter Indwelling Catheter - Labs CBC & Chem 7: 12/30/23 03:36 12/30/23 03:36 Labs: Abnormal Lab Results - Last 24 Hours (Table) 12/29/23 12/29/23 Range/Units 03:49 03:49 RBC 3.25 L (4.40-5.60) X 10*6/uL Hgb 10.7 L (13.0-17.0) g/dL Hct 35.1 L (39.6-50.0) % MCV 108.0 H (80.0-97.0) FL MCH 32.9 H (27.0-32.0) pg MCHC 30.5 L (32.0-37.0) g/dL RDW 16.7 H (11.5-14.5) % Plt Count 89 L (140-440) X 10*3/uL Immature Gran # 0.08 H (0.00-0.04) X 10*3/uL Lymphocytes # 0.33 L (0.90-5.00) X 10*3/uL Macrocytosis (manual) 2+ A Carbon Dioxide 20.7 L (21.6-31.8) mmol/L BUN 36.5 H (9.0-27.0) mg/dL Est GFR (CKD-EPI) 46 L (>=60) BUN/Creatinine Ratio 24.33 H (12.00-20.00) Ratio Calcium 8.0 L (8.7-10.3) mg/dL AST 36 H (14-35) U/L Total Protein 4.5 L (6.2-8.2) g/dL Albumin 3.0 L (3.8-4.9) g/dL Globulin 1.5 L (1.6-3.3) g/dL
[2023-12-30 14:33] LABS: Appearance,Urine Clear (Clear); Bilirubin,Urine Negative (Negative); Blood,Urine Small (Negative); Color,Urine Yellow; Glucose,Urine (UA) 1+ (Negative); Ketones,Urine Negative (Negative); Leukocyte Esterase,Urine Moderate (Negative); Mucus,Urine Rare /hpf; Nitrite,Urine Negative (Negative); PH, Urine 5.5 (5.0-8.0); Protein,Urine 1+ (Negative); RBC,Urine 12 /hpf (0-5); Urobilinogen,Urine <2.0 mg/dL (<2.0); WBC,Urine 12 /hpf (0-5)
--- NOTE | 2023-12-30 14:55 | XR ---
EXAMINATION TYPE: XR chest 1V portable DATE OF EXAM: 12/30/2023 2:36 PM COMPARISON: Chest radiographs from 12/29/2023 CLINICAL INDICATION: Male, 83 years old with history of sepsis symptoms; [facility] TECHNIQUE: XR chest 1V portable Frontal view of the chest. FINDINGS: Lungs/Pleura: There is no evidence of pleural effusion, focal consolidation, or pneumothorax. Pulmonary vascularity: Unremarkable. Heart/mediastinum: Cardiomediastinal silhouette is unremarkable. Musculoskeletal: No acute osseous pathology. Left shoulder arthroplasty changes. IMPRESSION: No significant change from one day prior. No evidence for focal airspace consolidation. [facility], , 12/30/2023 2:53 PM
[2023-12-30 20:26] LABS: Glucose,Whole Blood 112 mg/dL (70-110)
[2023-12-31 07:12] LABS: Glucose,Whole Blood 101 mg/dL (70-110)
[2023-12-31 08:25] LABS: HCT 32.1 % (39.6-50.0); HGB 9.9 g/dL (13.0-17.0); MCH 32.9 pg (27.0-32.0); MCHC 30.8 g/dL (32.0-37.0); MCV 106.6 FL (80.0-97.0); Mean Platelet Volume 12.2 FL (9.5-12.2); NRBC Per 100 WBC 0 X 10*3/uL (0.00-0.01); Platelet Count 89 X 10*3/uL (140-440); RBC 3.01 X 10*6/uL (4.40-5.60); RDW 16.1 % (11.5-14.5); WBC 6.08 X 10*3/uL (4.50-10.00)
[2023-12-31 08:26] LABS: Basophils # (A) 0.02 X 10*3/uL (0.00-0.10); Basophils % (A) 0.3 %; Eosinophils % (A) 1.6 %; Lymphocytes # (A) 0.55 X 10*3/uL (0.90-5.00); Monocytes # (A) 0.42 X 10*3/uL (0.20-1.00); Monocytes % (A) 6.9 %; Neutrophils # (A) 4.93 X 10*3/uL (1.80-7.70); Neutrophils % (A) 81.2 %
--- NOTE | 2023-12-31 09:16 | P.PN ---
Subjective Progress Note Date: 12/31/23 Nick Vora, is an 83 year-old male who presented to [facility] emergency room with a chief complaint of back pain and bilateral lower extremity weakness, he was evaluated at Dr. Ashton's office and was sent to emergency room for admission. He was evaluated in the emergency room vital examination on presentation revealed a temperature of 97.4 pulse 96 respiration 20 blood pressure 123/58 pulse ox 97% on 2 L nasal cannula Laboratory data revealed a white blood count of 7.3 hemoglobin 14.3 platelet count 147 sodium 136 potassium 4.9 chloride 103 CO2 28 BUN 44 creatinine 1.32 u rine analysis revealed evidence of urinary tract infection Testing in the emergency room revealed EKG done in the emergency room revealed sinus rhythm with first-degree AV block with poor R wave progression in anterior leads possible old infarction. Prior to admission patient had a CT scan of the lumbar spine which revealed compression deformity of L3 vertebral body, with moderate to severe spinal canal stenosis and mild to moderate neural foraminal stenosis, and moderate to severe canal stenosis at L4 and moderate to severe degeneration changes in the spine Patient was admitted to medical floor for further evaluation and treatment Past medical history is significant for history of atrial fibrillation maintained on Eliquis, history of hypertension, history of hyperlipidemia, history of osteoarthritis, history of benign prostatic hypertrophy, history of decreased hearing, history of recent colonoscopy with polypectomy on November 13, 2023, with pathology positive for invasive colonic adenocarcinoma, patient will need further surgical intervention on the colon when stable medically. On review of systems patient is alert and oriented x 3 in no apparent distress there is no fever or chills no headache or dizziness no chest pain no shortness of breath no cough no nausea or vomiting no abdominal pain no diarrhea no blood in the stools no burning with urination no frequency or urgency and no hematuria. On 12/28/2023 patient was seen and examined on the medical floor, he is alert and oriented x 3 in no apparent distress, there is no fever or chills no headache or dizziness no chest pain no shortness of breath no cough no nausea or vomiting no abdominal pain no diarrhea no blood in the stools no burning with urination no frequency or urgency and no hematuria. Patient is having significantly low blood pressure last night blood pressure was 80/43, he was started on IV fluid, he was also started on midodrine 5 mg p.o. 3 times daily, consultation for cardiology was initiated, otherwise patient is doing well, will continue to follow closely. 12/29/2023 patient is alert and oriented 3 currently resting comfortably in bed blood pressure has improved awaiting cardiology inputpatient denies chest pain or shortness breath. Patient denies nausea vomiting or diarrhea. Patient denies any urinary burning or frequency. Her vital signs temp 97.9, heart rate 62, respiratory rate 16, blood pressure 102/60 with pulse is 95% on 4 L On 12/30/2023 patient was seen and examined on the medical floor, he is alert and oriented x 3 in no apparent distress, there is no fever or chills no headache or dizziness no chest pain no shortness of breath no cough no nausea or vomiting no abdominal pain no diarrhea and no urinary symptoms. Patient has significant hypotension, he was evaluated yesterday by cardiology Dr. Doyle, at that time his dose of amiodarone was decreased to 200 mg once daily, and metoprolol was discontinued, today patient continues to be hypotensive, he is currently in atrial fibrillation with a heart rate of 117, Dr. Eller was contacted earlier by the nurse, and his cardiac medications are being readjusted again, blood culture urine culture and chest x-ray were ordered to rule out any infectious process causing hypotension. Will continue to follow closely. On 12/31/2023 patient is alert and oriented x 3. Vitals improved today cardiac meds adjusted per cardiology. Chest x-ray completed showing no significant change no evidence for focal airspace consolidation. Patient remains on IV Rocephin. Current vital signs temp 97.4, heart rate 86, respiratory rate 18, blood pressure 103/62 with a pulse ox of 90% on 6 L. Patient denies chest pain or shortness of breath. Patient denies nausea vomiting or diarrhea. Patient denies any urinary burning or frequency Objective - Vital Signs Vital signs: Vital Signs Temp 97.4 F L 12/31/23 06:50 Pulse 86 12/31/23 06:50 Resp 18 12/31/23 06:50 BP 103/62 12/31/23 06:50 Pulse Ox 90 L 12/31/23 06:50 FiO2 Intake & Output 12/30/23 12/31/23 12/31/23 18:59 06:59 18:59 Output Total 650 253 Balance -650 -253 Output: Urine 650 Uretheral (Mulligan) 650 Post Void Residual 253 Other: Voiding Method Indwelling Catheter Diaper # Voids 2 - Exam In general patient is alert and oriented x 3 in no distress HEENT head normocephalic and atraumatic Neck is supple no JVD no goiter no lymphadenopathy no carotid bruit Chest examination is clear to auscultation no crackles no wheezing Cardiac exam reveals regular heart sounds S1 and S2 no gallops no murmurs Abdomen is soft nontender no organomegaly with normal bowel sounds Extremity exam reveals no edema no cyanosis or clubbing Neurological examination reveals no gross focal deficits - Labs CBC & Chem 7: 12/31/23 03:11 12/30/23 03:36 Labs: Abnormal Lab Results - Last 24 Hours (Table) 12/30/23 12/30/23 12/30/23 Range/Units 03:36 03:36 14:20 RBC 2.88 L (4.40-5.60) X 10*6/uL Hgb 9.6 L (13.0-17.0) g/dL Hct 30.3 L (39.6-50.0) % MCV 105.2 H (80.0-97.0) FL MCH 33.3 H (27.0-32.0) pg MCHC 31.7 L (32.0-37.0) g/dL RDW 16.5 H (11.5-14.5) % Plt Count 77 L (140-440) X 10*3/uL Immature Gran # 0.06 H (0.00-0.04) X 10*3/uL Lymphocytes # 0.41 L (0.90-5.00) X 10*3/uL POC Glucose (mg/dL) (70-110) mg/dL NT-Pro-B Natriuret Pep 2851 H (0-450) pg/mL Urine Protein 1+ H (Negative) Urine Glucose (UA) 1+ H (Negative) Urine Blood Small H (Negative) Ur Leukocyte Esterase Moderate H (Negative) Urine RBC 12 H (0-5) /hpf Urine WBC 12 H (0-5) /hpf Urine Mucus Rare H (None) /hpf 12/30/23 12/31/23 Range/Units 20:24 03:11 RBC 3.01 L (4.40-5.60) X 10*6/uL Hgb 9.9 L (13.0-17.0) g/dL Hct 32.1 L (39.6-50.0) % MCV 106.6 H (80.0-97.0) FL MCH 32.9 H (27.0-32.0) pg MCHC 30.8 L (32.0-37.0) g/dL RDW 16.1 H (11.5-14.5) % Plt Count 89 L (140-440) X 10*3/uL Immature Gran # 0.06 H (0.00-0.04) X 10*3/uL Lymphocytes # 0.55 L (0.90-5.00) X 10*3/uL POC Glucose (mg/dL) 112 H (70-110) mg/dL NT-Pro-B Natriuret Pep (0-450) pg/mL Urine Protein (Negative) Urine Glucose (UA) (Negative) Urine Blood (Negative) Ur Leukocyte Esterase (Negative) Urine RBC (0-5) /hpf Urine WBC (0-5) /hpf Urine Mucus (None) /hpf Assessment and Plan Plan: Low back pain with bilateral lower extremity weakness. Status post lumbar fusion Evidence of urinary tract infection Underlying history of hypertension Underlying history of hyperlipidemia Underlying history of paroxysmal atrial fibrillation Underlying history of osteoarthritis Underlying history of benign prostatic hypertrophy Underlying history of decreased hearing Underlying history of invasive colonic adenocarcinoma patient will need surgical intervention in the near future At this time patient was seen and examined Home medications reviewed and reordered At this time will hold Eliquis in anticipation for surgical intervention DVT prophylaxis with SCD stockings Patient was started on IV ceftriaxone for urinary tract infection Patient is at increased surgical risk due to his multiple medical problems, however there is no medical contraindication for surgery Will continue to follow closely
[2023-12-31 09:37] LABS: ALT 11 U/L (10-49); AST 18 U/L (14-35); Albumin 2.8 g/dL (3.8-4.9); Albumin/Globulin Ratio 1.87 Ratio (1.60-3.17); Alkaline Phosphatase 104 U/L (41-126); BUN/Creat Ratio 33.18 Ratio (12.00-20.00); Blood Urea Nitrogen 36.5 mg/dL (9.0-27.0); Calcium 7.8 mg/dL (8.7-10.3); Carbon Dioxide 24.4 mmol/L (21.6-31.8); Chloride 104 mmol/L (96-109); Globulin 1.5 g/dL (1.6-3.3); Glucose 101 mg/dL (70-110); Potassium 4.6 mmol/L (3.5-5.5); Sodium 134 mmol/L (135-145); Total Bilirubin 0.5 mg/dL (0.3-1.2); Total Protein 4.3 g/dL (6.2-8.2)
[2023-12-31] MEDS: DIGOXIN 125 MCG TAB PO SCH (10:13)
[2023-12-31] MEDS ORDERED: IPRATROPIUM-ALBUTEROL 3 ML NEB INHALATION PRN (10:34)
[2023-12-31 11:08] LABS: Glucose,Whole Blood 283 mg/dL (70-110)
--- NOTE | 2023-12-31 11:27 | P.PN ---
Subjective Progress Note Date: 12/31/23 HISTORY OF PRESENTING ILLNESS Patient with past medical history of paroxysmal atrial fibrillation, mild CAD, tobacco smoker. His last echo shows an EF of 25 to 30%, moderate to severe pulmonary hypertension, moderate tricuspid regurgitation, last heart cath from 2013 showed mild CAD. He has history of invasive adenocarcinoma, 12/30/2023 Patient is seen and examined. Patient remains tachycardic and EKG obtained which revealed sinus rhythm with first-degree block, PVCs.Request the patient be placed on satellite project site monitor. Regarding Eliquis, this has not been resumed but we have received clearance from orthopedic surgery. Blood pressure manual 82/42. Heart rate is 113. Patient appears to be asymptomatic with low blood pressure readings. We will order a small fluid bolus obtain UA to make sure patient is not septic and if blood pressures are not improved, transfer the patient to ICU. 12/31/2023 Patient is seen and examined. Blood pressure is improved from yesterday following a 200 cc IV fluid bolus. Yesterday, we also increased frequency of amiodarone to twice daily. Blood pressure 103/62, heart rate between 86 and 114 which is improved. Telemetry atrial fibrillation. Pulse ox 90% on 6 L nasal cannula. D-dimer ordered this morning came back positive at 0.66. Urinalysis was obtained and urine culture in progress. Patient has been maintained on ceftriaxone IV. Patient states that he is not doing well states he cannot sit up he is terribly weak. PHYSICAL EXAMINATION Vital signs reviewed. Head: Normocephalic. Eyes: Sclerae nonicteric. Neck: Brisk carotid upstroke, no jugular venous distention. Lungs: Clear to auscultation. Heart: Regular rate and rhythm, S1-S2, no S3, no murmur or rub. Abdomen: Soft nontender, positive bowel sounds. Extremities: No edema, intact distal pulses. Neuro: Alert, oritented, no focal deficits. Detailed neuro exam was not performed. ASSESSMENT Hypotension History of known tachycardia induced cardiomyopathy Atrial fibrillation, currently in sinus rhythm Severe pulmonary hypertension Invasive adenocarcinoma Status post lumbar fusion UTI PLAN Continue Eliquis 2.5 mg twice daily, lower dose due to borderline renal function Continue [id number] mg twice daily for atrial fibrillation Add digoxin 125 mcg daily Midodrine as needed Follow-up on urine culture, patient is on IV Rocephin Obtain CTA of the chest to rule out PE as patient was off anticoagulation following surgery Overall prognosis is guarded. Nurse practitioner note has been reviewed, I agree with documented findings and plan of care. Patient was seen and examined. Objective - Vital Signs Vital signs: Vital Signs Temp 97.4 F L 12/31/23 06:50 Pulse 86 12/31/23 06:50 Resp 18 12/31/23 06:50 BP 103/62 12/31/23 06:50 Pulse Ox 90 L 12/31/23 06:50 FiO2 Intake & Output 12/30/23 12/31/23 12/31/23 18:59 06:59 18:59 Output Total 650 253 Balance -650 -253 Output: Urine 650 Uretheral (Mulligan) 650 Post Void Residual 253 Other: Voiding Method Indwelling Catheter Diaper Incontinent # Voids 2 # Bowel Movements 1 - Labs CBC & Chem 7: 12/31/23 03:11 12/31/23 03:11 Labs: Abnormal Lab Results - Last 24 Hours (Table) 12/30/23 12/30/23 12/30/23 Range/Units 03:36 14:20 20:24 RBC (4.40-5.60) X 10*6/uL Hgb (13.0-17.0) g/dL Hct (39.6-50.0) % MCV (80.0-97.0) FL MCH (27.0-32.0) pg MCHC (32.0-37.0) g/dL RDW (11.5-14.5) % Plt Count (140-440) X 10*3/uL Immature Gran # (0.00-0.04) X 10*3/uL Lymphocytes # (0.90-5.00) X 10*3/uL D-Dimer (<0.60) mg/L FEU Sodium (135-145) mmol/L BUN (9.0-27.0) mg/dL BUN/Creatinine Ratio (12.00-20.00) Ratio POC Glucose (mg/dL) 112 H (70-110) mg/dL Calcium (8.7-10.3) mg/dL NT-Pro-B Natriuret Pep 2851 H (0-450) pg/mL Total Protein (6.2-8.2) g/dL Albumin (3.8-4.9) g/dL Globulin (1.6-3.3) g/dL Urine Protein 1+ H (Negative) Urine Glucose (UA) 1+ H (Negative) Urine Blood Small H (Negative) Ur Leukocyte Esterase Moderate H (Negative) Urine RBC 12 H (0-5) /hpf Urine WBC 12 H (0-5) /hpf Urine Mucus Rare H (None) /hpf 12/31/23 12/31/23 12/31/23 Range/Units 03:11 03:11 09:45 RBC 3.01 L (4.40-5.60) X 10*6/uL Hgb 9.9 L (13.0-17.0) g/dL Hct 32.1 L (39.6-50.0) % MCV 106.6 H (80.0-97.0) FL MCH 32.9 H (27.0-32.0) pg MCHC 30.8 L (32.0-37.0) g/dL RDW 16.1 H (11.5-14.5) % Plt Count 89 L (140-440) X 10*3/uL Immature Gran # 0.06 H (0.00-0.04) X 10*3/uL Lymphocytes # 0.55 L (0.90-5.00) X 10*3/uL D-Dimer 0.66 H (<0.60) mg/L FEU Sodium 134 L (135-145) mmol/L BUN 36.5 H (9.0-27.0) mg/dL BUN/Creatinine Ratio 33.18 H (12.00-20.00) Ratio POC Glucose (mg/dL) (70-110) mg/dL Calcium 7.8 L (8.7-10.3) mg/dL NT-Pro-B Natriuret Pep (0-450) pg/mL Total Protein 4.3 L (6.2-8.2) g/dL Albumin 2.8 L (3.8-4.9) g/dL Globulin 1.5 L (1.6-3.3) g/dL Urine Protein (Negative) Urine Glucose (UA) (Negative) Urine Blood (Negative) Ur Leukocyte Esterase (Negative) Urine RBC (0-5) /hpf Urine WBC (0-5) /hpf Urine Mucus (None) /hpf 12/31/23 Range/Units 11:05 RBC (4.40-5.60) X 10*6/uL Hgb (13.0-17.0) g/dL Hct (39.6-50.0) % MCV (80.0-97.0) FL MCH (27.0-32.0) pg MCHC (32.0-37.0) g/dL RDW (11.5-14.5) % Plt Count (140-440) X 10*3/uL Immature Gran # (0.00-0.04) X 10*3/uL Lymphocytes # (0.90-5.00) X 10*3/uL D-Dimer (<0.60) mg/L FEU Sodium (135-145) mmol/L BUN (9.0-27.0) mg/dL BUN/Creatinine Ratio (12.00-20.00) Ratio POC Glucose (mg/dL) 283 H (70-110) mg/dL Calcium (8.7-10.3) mg/dL NT-Pro-B Natriuret Pep (0-450) pg/mL Total Protein (6.2-8.2) g/dL Albumin (3.8-4.9) g/dL Globulin (1.6-3.3) g/dL Urine Protein (Negative) Urine Glucose (UA) (Negative) Urine Blood (Negative) Ur Leukocyte Esterase (Negative) Urine RBC (0-5) /hpf Urine WBC (0-5) /hpf Urine Mucus (None) /hpf
[2023-12-31] MEDS: IPRATROPIUM-ALBUTEROL 3 ML NEB INHALATION SCH (11:51)
--- NOTE | 2023-12-31 12:30 | P.CNPUL ---
History of Present Illness Consult date: 12/31/23 Requesting physician: Juan C Beltran Reason for consult: hypoxemia, abnormal CXR/CT Chief complaint: Lower extremity weakness, unable to walk History of present illness: This is an 83-year-old male patient with a known history of atrial fibrillation, CVA/TIA, hearing disorder, hyperlipidemia, anxiety, former smoker who presented here to the hospital back on December 25, [address] Ashton's office. The patient had taken a fall in October 2023 and the MRI showed fracture of his back. He was at [facility] doing rehabilitation without much improvement. He is still unable to ambulate and has lower extremity weakness. On December 27, 2023 he did undergo surgery including open treatment of L2-3 for hyperextension fracture. L1-L4 posterior lateral fusion. We are consulted today due to his increasing oxygen requirements currently on 6 L high flow nasal cannula. Chest x-ray reveals evidence of atelectasis in the bilateral bases. No focal airspace consolidation. White count 6.0. Hemoglobin 9.9. Platelets 89,000. D-dimer 0.66. Sodium 134. Potassium 4.6. Bicarb 24. BUN 36. Creatinine 1.1. Glucose 101. He is currently on ceftriaxone. Anticoagulated with Eliquis. Adequate pain control. He is seen today in consultation on the regular medical floor. He is currently up in a chair at the bedside. Awake and alert in no acute distress. He has a loose nonproductive cough. No fever or chills. Review of Systems REVIEW OF SYSTEMS: CONSTITUTIONAL: Denies any recent significant weight loss or weight gain. EYES: Denies change in vision. EARS, NOSE, MOUTH, THROAT: Denies headaches, denies sore throat. CARDIOVASCULAR: Denies chest pain, palpitations or syncopal episodes. RESPIRATORY: Positive for shortness of breath, cough, congestion no hemoptysis. GASTROINTESTINAL: Denies change in appetite, denies abdominal pain GENITOURINARY: Denies hematuria, denies infections. MUSKULOSKELETAL: Positive for back pain, lower extremity weakness. INTEGUMENTARY: Denies rash, denies eczema. NEUROLOGICAL: Denies recent memory loss, no recent seizure activity. PSYCHIATRIC: Denies anxiety, denies depression. HEMATOLOGIC/LYMPHATIC: Denies anemia, denies enlarged lymph nodes. Past Medical History Past Medical History: Atrial Fibrillation, CVA/TIA, GERD/Reflux, Hearing Disorder / Deafness, Hyperlipidemia, Osteoarthritis (OA), Prostate Disorder Additional Past Medical History / Comment(s): Tinnitus, Hx kidney stones, BPH, LUNG SCARRING. 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 History of Any Multi-Drug Resistant Organisms: None Reported Past Surgical History: Adenoidectomy, Ear Surgery, Heart Catheterization, Joint Replacement, Tonsillectomy Additional Past Surgical History / Comment(s): Oral surgery, diana knee replacements, partial thyroidectomy, diana cataracts. EGD, COLONOSCOPY cardioversion Past Anesthesia/Blood Transfusion Reactions: No Reported Reaction Past Psychological History: Anxiety Smoking Status: Former smoker Past Alcohol Use History: None Reported Additional Past Alcohol Use History / Comment(s): quit smoking 1986, started smoking age 17 Past Drug Use History: None Reported - Past Family History Mother Family Medical History: No Reported History Additional Family Medical History / Comment(s): . Medications and Allergies Home Medications Medication Instructions Recorded Confirmed Type Sertraline HCl [Zoloft] 200 mg PO DAILY 10/30/13 12/25/23 History Acetaminophen Tab [Tylenol] 1,000 mg PO HS 08/08/18 12/25/23 History Metoprolol Tartrate [Lopressor] 25 mg PO BID 07/01/21 12/25/23 History Amiodarone [Cordarone] 200 mg PO BID tab 12/05/23 12/25/23 Rx Apixaban [Eliquis] 2.5 mg PO BID #0 tab 12/05/23 12/25/23 Rx Dapagliflozin Propanediol [Farxiga] 10 mg PO DAILY tab 12/05/23 12/25/23 Rx Docusate [Colace] 100 mg PO BID cap 12/05/23 12/25/23 Rx Furosemide [Lasix] 20 mg PO DAILY tab 12/05/23 12/25/23 Rx Sacubitril/Valsartan [Entresto 24 1 tab PO BID 12/25/23 12/25/23 History mg-26 mg Tablet] Temazepam [Restoril] 7.5 mg PO HS 12/25/23 12/25/23 History guaiFENesin SYRUP 100MG/5ML 200 mg PO Q4H PRN 12/25/23 12/25/23 History [Robitussin] Allergies Allergy/AdvReac Type Severity Reaction Status Date / Time hydrocodone [From Lortab] Allergy SEVERE Verified 12/25/23 15:48 ABDOMINAL AND TROUBLE BREATHING hydrocodone bitartrate Allergy Anaphylaxis Verified 12/25/23 15:48 [From Vicodin] Penicillins Allergy Anaphylaxis Verified 12/25/23 15:48 propoxyphene napsylate Allergy Anaphylaxis Verified 12/25/23 15:48 [From Darvocet-N 100] tamsulosin HCl [From Flomax] Allergy Anaphylaxis Verified 12/25/23 15:48 Physical Exam Vitals: Vital Signs Temp Pulse Pulse Pulse Resp BP BP 12/31/23 12:05 76 12/31/23 11:55 76 12/31/23 06:50 97.4 F L 86 18 103/62 12/31/23 01:38 98.3 F 114 H 18 101/61 12/30/23 19:02 97.7 F 116 H 18 111/67 12/30/23 14:39 106 H 112/75 12/30/23 13:23 99.2 F 117 H 16 82/42 Pulse Ox 12/31/23 12:05 12/31/23 11:55 12/31/23 06:50 90 L 12/31/23 01:38 91 L 12/30/23 19:02 91 L 12/30/23 14:39 90 L 12/30/23 13:23 Intake and Output 12/30/23 12/31/23 12/31/23 22:59 06:59 14:59 Output Total 650 253 Balance -650 -253 Output: Urine 650 Uretheral (Mulligan) 650 Post Void Residual 253 Other: Voiding Method Diaper Incontinent # Voids 2 # Bowel Movements 1 GENERAL EXAM: Alert, 3-year-old male patient, on 6 L high flow nasal cannula, up in a chair, fairly comfortable in no apparent distress. HEAD: Normocephalic. EYES: Normal reaction of pupils, equal size. NOSE: Clear with pink turbinates. THROAT: No erythema or exudates. NECK: No masses, no JVD. CHEST: No chest wall deformity. LUNGS: Equal air entry with no crackles, wheeze, rhonchi or dullness. CVS: S1 and S2 normal with no audible murmur, regular rhythm. ABDOMEN: No hepatosplenomegaly, normal bowel sounds, no guarding or rigidity. SPINE: Surgical dressing dry and intact. SKIN: No rashes CENTRAL NERVOUS SYSTEM: No focal deficits, tone is normal in all 4 extremities. EXTREMITIES: There is no peripheral edema. No clubbing, no cyanosis. Peripheral pulses are intact. Results - Laboratory Findings CBC and BMP: 12/31/23 03:11 12/31/23 03:11 PT/INR, D-dimer PT 10.5 sec (10.0-12.5) 12/25/23 15:00 INR 1.0 (<1.2) 12/25/23 15:00 D-Dimer 0.66 mg/L FEU (<0.60) H 12/31/23 09:45 Abnormal lab findings: Abnormal Labs 12/25/23 12/25/23 12/25/23 15:00 15:00 15:10 RBC Hgb Hct MCV 101.7 H MCH MCHC RDW Plt Count 147 L Immature Gran # Neutrophils # Lymphocytes # 0.8 L Eosinophils # Macrocytosis (manual) D-Dimer Sodium 136 L Chloride Carbon Dioxide BUN 44 H Creatinine 1.32 H Est GFR (CKD-EPI) BUN/Creatinine Ratio POC Glucose (mg/dL) Calcium AST NT-Pro-B Natriuret Pep Total Protein Albumin Globulin Urine Protein Trace H Urine Glucose (UA) Urine Blood Large H Ur Leukocyte Esterase Large H Urine RBC 119 H Urine WBC >182 H Urine Bacteria Many H Urine Mucus 12/27/23 12/27/23 12/28/23 04:54 04:54 04:30 RBC 3.91 L 3.55 L Hgb 12.8 L 11.2 L Hct 37.1 L MCV 104.1 H 104.5 H MCH 32.7 H MCHC 31.4 L 30.2 L RDW 16.3 H 16.3 H Plt Count 115 L 122 L Immature Gran # 0.09 H 0.07 H Neutrophils # 7.79 H Lymphocytes # 0.67 L Eosinophils # 0.02 L Macrocytosis (manual) D-Dimer Sodium Chloride Carbon Dioxide BUN 39.5 H Creatinine 1.6 H Est GFR (CKD-EPI) 43 L BUN/Creatinine Ratio 24.69 H POC Glucose (mg/dL) Calcium 8.4 L AST NT-Pro-B Natriuret Pep Total Protein 5.0 L Albumin 3.4 L Globulin Urine Protein Urine Glucose (UA) Urine Blood Ur Leukocyte Esterase Urine RBC Urine WBC Urine Bacteria Urine Mucus 12/28/23 12/28/23 12/28/23 04:30 11:02 21:23 RBC 3.65 L Hgb 12.2 L Hct 38.7 L MCV 106.0 H MCH MCHC RDW Plt Count 99 L Immature Gran # Neutrophils # Lymphocytes # Eosinophils # Macrocytosis (manual) D-Dimer Sodium Chloride 110 H 110 H Carbon Dioxide 19.6 L BUN 32.9 H 40 H Creatinine 1.44 H Est GFR (CKD-EPI) 55 L BUN/Creatinine Ratio 25.31 H POC Glucose (mg/dL) Calcium 7.9 L 7.9 L AST NT-Pro-B Natriuret Pep Total Protein 4.8 L Albumin 2.7 L Globulin Urine Protein Urine Glucose (UA) Urine Blood Ur Leukocyte Esterase Urine RBC Urine WBC Urine Bacteria Urine Mucus 12/29/23 12/29/23 12/30/23 03:49 03:49 03:36 RBC 3.25 L 2.88 L Hgb 10.7 L 9.6 L Hct 35.1 L 30.3 L MCV 108.0 H 105.2 H MCH 32.9 H 33.3 H MCHC 30.5 L 31.7 L RDW 16.7 H 16.5 H Plt Count 89 L 77 L Immature Gran # 0.08 H 0.06 H Neutrophils # Lymphocytes # 0.33 L 0.41 L Eosinophils # Macrocytosis (manual) 2+ A D-Dimer Sodium Chloride Carbon Dioxide 20.7 L BUN 36.5 H Creatinine Est GFR (CKD-EPI) 46 L BUN/Creatinine Ratio 24.33 H POC Glucose (mg/dL) Calcium 8.0 L AST 36 H NT-Pro-B Natriuret Pep Total Protein 4.5 L Albumin 3.0 L Globulin 1.5 L Urine Protein Urine Glucose (UA) Urine Blood Ur Leukocyte Esterase Urine RBC Urine WBC Urine Bacteria Urine Mucus 12/30/23 12/30/23 12/30/23 03:36 03:36 14:20 RBC Hgb Hct MCV MCH MCHC RDW Plt Count Immature Gran # Neutrophils # Lymphocytes # Eosinophils # Macrocytosis (manual) D-Dimer Sodium Chloride Carbon Dioxide BUN 37.0 H Creatinine Est GFR (CKD-EPI) 55 L BUN/Creatinine Ratio 28.46 H POC Glucose (mg/dL) Calcium 7.9 L AST NT-Pro-B Natriuret Pep 2851 H Total Protein 4.2 L Albumin 2.8 L Globulin 1.4 L Urine Protein 1+ H Urine Glucose (UA) 1+ H Urine Blood Small H Ur Leukocyte Esterase Moderate H Urine RBC 12 H Urine WBC 12 H Urine Bacteria Urine Mucus Rare H 12/30/23 12/31/23 12/31/23 20:24 03:11 03:11 RBC 3.01 L Hgb 9.9 L Hct 32.1 L MCV 106.6 H MCH 32.9 H MCHC 30.8 L RDW 16.1 H Plt Count 89 L Immature Gran # 0.06 H Neutrophils # Lymphocytes # 0.55 L Eosinophils # Macrocytosis (manual) D-Dimer Sodium 134 L Chloride Carbon Dioxide BUN 36.5 H Creatinine Est GFR (CKD-EPI) BUN/Creatinine Ratio 33.18 H POC Glucose (mg/dL) 112 H Calcium 7.8 L AST NT-Pro-B Natriuret Pep Total Protein 4.3 L Albumin 2.8 L Globulin 1.5 L Urine Protein Urine Glucose (UA) Urine Blood Ur Leukocyte Esterase Urine RBC Urine WBC Urine Bacteria Urine Mucus 12/31/23 12/31/23 09:45 11:05 RBC Hgb Hct MCV MCH MCHC RDW Plt Count Immature Gran # Neutrophils # Lymphocytes # Eosinophils # Macrocytosis (manual) D-Dimer 0.66 H Sodium Chloride Carbon Dioxide BUN Creatinine Est GFR (CKD-EPI) BUN/Creatinine Ratio POC Glucose (mg/dL) 283 H Calcium AST NT-Pro-B Natriuret Pep Total Protein Albumin Globulin Urine Protein Urine Glucose (UA) Urine Blood Ur Leukocyte Esterase Urine RBC Urine WBC Urine Bacteria Urine Mucus - Diagnostic Findings Chest x-ray: image reviewed Assessment and Plan Assessment: Acute hypoxic respiratory failure secondary to atelectatic changes in the lung bases postsurgical Recent fall with fracture to the spine, status post open treatment L2-3 for hype rextension fracture, L1-L4 posterior lateral fusion. Postoperative day #4 atrial fibrillation anticoagulated with Eliquis Cardiomyopathy with an ejection fraction 25 to 30% Moderate to severe pulmonary hypertension History of mild coronary artery disease History of colon cancer, to be scheduled for colectomy once recovered History of CVA/TIA History of hearing disorder Hyperlipidemia Former smoker Plan: The patient was seen and evaluated Imaging, labs and medications reviewed Titrate down the FiO2 as tolerated Increase the use of the incentive spirometer Add DuoNeb inhalations 4 times daily and as needed Check lower extremity Doppler Continue antibiotics Anticoagulated with Eliquis Increase his activity as tolerated We will continue to follow and make further recommendations based on his clinical status I have personally seen and examined the patient, performed the documentation and the assessment and plan as written. Number of minutes spent on the visit: 20 Dictation was produced using [employer] dictation software. Please excuse any grammatical, word or spelling errors.
--- NOTE | 2023-12-31 13:23 | P.PN ---
Subjective Progress Note Date: 12/31/23 SURGICAL PROGRESS NOTE HISTORY OF PRESENT ILLNESS: Surgical service following in regards to patient's colon cancer. Patient is sitting at bedside chair comfortably. He reports having flatus and bowel movement. Denies any nausea or vomiting. Afebrile. WBC 6.08 Hgb 9.9 platelets 89 PHYSICAL EXAM: VITAL SIGNS: Reviewed. GENERAL: Well-developed in no acute distress. ABDOMEN: Soft. Nondistended. Nontender. NEUROLOGIC: Alert and oriented. Cranial nerves II through XII grossly intact. ASSESSMENT: 1. Colon adenocarcinoma 2. Status post recent back surgery 3. Anemia 4. Thrombocytopenia PLAN: -No plans for surgical intervention during this admission. Colectomy has been deferred during this admission due to high surgical risk -Recommend high protein diets -Continue supportive care Physician [employer]ing Machine Tender note has been reviewed by physician. Signing provider agrees with the documented findings, assessment, and plan of care. Objective - Vital Signs Vital signs: Vital Signs Temp 97.4 F L 12/31/23 06:50 Pulse 76 12/31/23 12:05 Resp 18 12/31/23 06:50 BP 103/62 12/31/23 06:50 Pulse Ox 90 L 12/31/23 06:50 FiO2 Intake & Output 12/30/23 12/31/23 12/31/23 18:59 06:59 18:59 Output Total 650 253 Balance -650 -253 Output: Urine 650 Uretheral (Mulligan) 650 Post Void Residual 253 Other: Voiding Method Indwelling Catheter Diaper Incontinent # Voids 2 # Bowel Movements 1 - Labs CBC & Chem 7: 12/31/23 03:11 12/31/23 03:11 Labs: Abnormal Lab Results - Last 24 Hours (Table) 12/30/23 12/30/23 12/30/23 Range/Units 03:36 14:20 20:24 RBC (4.40-5.60) X 10*6/uL Hgb (13.0-17.0) g/dL Hct (39.6-50.0) % MCV (80.0-97.0) FL MCH (27.0-32.0) pg MCHC (32.0-37.0) g/dL RDW (11.5-14.5) % Plt Count (140-440) X 10*3/uL Immature Gran # (0.00-0.04) X 10*3/uL Lymphocytes # (0.90-5.00) X 10*3/uL D-Dimer (<0.60) mg/L FEU Sodium (135-145) mmol/L BUN (9.0-27.0) mg/dL BUN/Creatinine Ratio (12.00-20.00) Ratio POC Glucose (mg/dL) 112 H (70-110) mg/dL Calcium (8.7-10.3) mg/dL NT-Pro-B Natriuret Pep 2851 H (0-450) pg/mL Total Protein (6.2-8.2) g/dL Albumin (3.8-4.9) g/dL Globulin (1.6-3.3) g/dL Urine Protein 1+ H (Negative) Urine Glucose (UA) 1+ H (Negative) Urine Blood Small H (Negative) Ur Leukocyte Esterase Moderate H (Negative) Urine RBC 12 H (0-5) /hpf Urine WBC 12 H (0-5) /hpf Urine Mucus Rare H (None) /hpf 12/31/23 12/31/23 12/31/23 Range/Units 03:11 03:11 09:45 RBC 3.01 L (4.40-5.60) X 10*6/uL Hgb 9.9 L (13.0-17.0) g/dL Hct 32.1 L (39.6-50.0) % MCV 106.6 H (80.0-97.0) FL MCH 32.9 H (27.0-32.0) pg MCHC 30.8 L (32.0-37.0) g/dL RDW 16.1 H (11.5-14.5) % Plt Count 89 L (140-440) X 10*3/uL Immature Gran # 0.06 H (0.00-0.04) X 10*3/uL Lymphocytes # 0.55 L (0.90-5.00) X 10*3/uL D-Dimer 0.66 H (<0.60) mg/L FEU Sodium 134 L (135-145) mmol/L BUN 36.5 H (9.0-27.0) mg/dL BUN/Creatinine Ratio 33.18 H (12.00-20.00) Ratio POC Glucose (mg/dL) (70-110) mg/dL Calcium 7.8 L (8.7-10.3) mg/dL NT-Pro-B Natriuret Pep (0-450) pg/mL Total Protein 4.3 L (6.2-8.2) g/dL Albumin 2.8 L (3.8-4.9) g/dL Globulin 1.5 L (1.6-3.3) g/dL Urine Protein (Negative) Urine Glucose (UA) (Negative) Urine Blood (Negative) Ur Leukocyte Esterase (Negative) Urine RBC (0-5) /hpf Urine WBC (0-5) /hpf Urine Mucus (None) /hpf 12/31/23 Range/Units 11:05 RBC (4.40-5.60) X 10*6/uL Hgb (13.0-17.0) g/dL Hct (39.6-50.0) % MCV (80.0-97.0) FL MCH (27.0-32.0) pg MCHC (32.0-37.0) g/dL RDW (11.5-14.5) % Plt Count (140-440) X 10*3/uL Immature Gran # (0.00-0.04) X 10*3/uL Lymphocytes # (0.90-5.00) X 10*3/uL D-Dimer (<0.60) mg/L FEU Sodium (135-145) mmol/L BUN (9.0-27.0) mg/dL BUN/Creatinine Ratio (12.00-20.00) Ratio POC Glucose (mg/dL) 283 H (70-110) mg/dL Calcium (8.7-10.3) mg/dL NT-Pro-B Natriuret Pep (0-450) pg/mL Total Protein (6.2-8.2) g/dL Albumin (3.8-4.9) g/dL Globulin (1.6-3.3) g/dL Urine Protein (Negative) Urine Glucose (UA) (Negative) Urine Blood (Negative) Ur Leukocyte Esterase (Negative) Urine RBC (0-5) /hpf Urine WBC (0-5) /hpf Urine Mucus (None) /hpf
--- NOTE | 2023-12-31 14:17 | US ---
EXAMINATION TYPE: US venous doppler duplex LE BI DATE OF EXAM: 12/31/2023 1:51 PM COMPARISON: Right lower extremity venous ultrasound 11/26/2023 CLINICAL INDICATION: Male, 83 years old with history of Hypoxemia; No redness, Swelling TECHNIQUE: The lower extremity deep venous system is examined utilizing real time linear array sonog sue with graded compression, color doppler sonography, and spectral doppler. SIDE PERFORMED: Bilateral FINDINGS: VESSELS IMAGED: Common Femoral Vein Deep Femoral Vein Greater Saphenous Vein * Femoral Vein Popliteal Vein Small Saphenous Vein * Proximal Calf Veins (* superficial vessels) Right Leg: Negative for DVT, Color Doppler imaging shows patency of the vessels. Spectral waveforms are within normal limits. Left Leg: Negative for DVT, Color Doppler imaging shows patency of the vessels. Spectral waveforms a re within normal limits. IMPRESSION: No ultrasound evidence for deep venous thrombosis. [facility], , 12/31/2023 2:15 PM
--- NOTE | 2023-12-31 15:01 | P.CONS ---
History of Present Illness - Reason for Consult Consult date: 12/31/23 - History of Present Illness Nick Vora is a 83 year old, right handed, male, who lives with his and son in a modular home, with 2 JADEN w/o handrails. Prior to admission, the patient was able to ambulate w/ a 4WW but reports it had been getting more difficult. His son is able to assist with ADLs as needed, is not in great health per patient. Current driving: no. Transportation by: son. Support system: and son. Patient is an 83 year-old male known to our service with colon adenocarcinoma He has been deemed high surgical risk- no surgery planned for colon cancer. He just underwent L1-L4 fusion, L1-S1 segmental instrumentation with Dr. Ashton on 12/27/23. He was most recently at [facility] for weakness. PMR Consulted for rehab recs. Therapies reviewed he is max to total for ADLS and mobility- a lot of limitation due to pain. Past Medical History Past Medical History: Atrial Fibrillation, CVA/TIA, GERD/Reflux, Hearing Disorder / Deafness, Hyperlipidemia, Osteoarthritis (OA), Prostate Disorder Additional Past Medical History / Comment(s): Tinnitus, Hx kidney stones, BPH, LUNG SCARRING. 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 History of Any Multi-Drug Resistant Organisms: None Reported Past Surgical History: Adenoidectomy, Ear Surgery, Heart Catheterization, Joint Replacement, Tonsillectomy Additional Past Surgical History / Comment(s): Oral surgery, diana knee replacements, partial thyroidectomy, diana cataracts. EGD, COLONOSCOPY cardioversion Past Anesthesia/Blood Transfusion Reactions: No Reported Reaction Past Psychological History: Anxiety Smoking Status: Former smoker Past Alcohol Use History: None Reported Additional Past Alcohol Use History / Comment(s): quit smoking 1986, started sm oking age 17 Past Drug Use History: None Reported - Past Family History Mother Family Medical History: No Reported History Additional Family Medical History / Comment(s): . Medications and Allergies Home Medications Medication Instructions Recorded Confirmed Type Sertraline HCl [Zoloft] 200 mg PO DAILY 10/30/13 12/25/23 History Acetaminophen Tab [Tylenol] 1,000 mg PO HS 08/08/18 12/25/23 History Metoprolol Tartrate [Lopressor] 25 mg PO BID 07/01/21 12/25/23 History Amiodarone [Cordarone] 200 mg PO BID tab 12/05/23 12/25/23 Rx Apixaban [Eliquis] 2.5 mg PO BID #0 tab 12/05/23 12/25/23 Rx Dapagliflozin Propanediol [Farxiga] 10 mg PO DAILY tab 12/05/23 12/25/23 Rx Docusate [Colace] 100 mg PO BID cap 12/05/23 12/25/23 Rx Furosemide [Lasix] 20 mg PO DAILY tab 12/05/23 12/25/23 Rx Sacubitril/Valsartan [Entresto 24 1 tab PO BID 12/25/23 12/25/23 History mg-26 mg Tablet] Temazepam [Restoril] 7.5 mg PO HS 12/25/23 12/25/23 History guaiFENesin SYRUP 100MG/5ML 200 mg PO Q4H PRN 12/25/23 12/25/23 History [Robitussin] Allergies Allergy/AdvReac Type Severity Reaction Status Date / Time hydrocodone [From Lortab] Allergy SEVERE Verified 12/25/23 15:48 ABDOMINAL AND TROUBLE BREATHING hydrocodone bitartrate Allergy Anaphylaxis Verified 12/25/23 15:48 [From Vicodin] Penicillins Allergy Anaphylaxis Verified 12/25/23 15:48 propoxyphene napsylate Allergy Anaphylaxis Verified 12/25/23 15:48 [From Darvocet-N 100] tamsulosin HCl [From Flomax] Allergy Anaphylaxis Verified 12/25/23 15:48 Physical Exam Vitals: Vital Signs Temp Pulse Pulse Pulse Resp BP BP 12/31/23 13:27 96.5 F L 98 15 100/63 12/31/23 12:05 76 12/31/23 11:55 76 12/31/23 06:50 97.4 F L 86 18 103/62 12/31/23 01:38 98.3 F 114 H 18 101/61 12/30/23 19:02 97.7 F 116 H 18 111/67 Pulse Ox 12/31/23 13:27 96 12/31/23 12:05 12/31/23 11:55 12/31/23 06:50 90 L 12/31/23 01:38 91 L 12/30/23 19:02 91 L Intake and Output 12/30/23 12/31/23 12/31/23 22:59 06:59 14:59 Output Total 650 253 Balance -650 -253 Output: Urine 650 Uretheral (Mulligan) 650 Post Void Residual 253 Other: Voiding Method Diaper Incontinent # Voids 2 # Bowel Movements 1 General: Well-developed, well-nourished, in no acute distress Cardiovascular: Regular rate Respiratory: Even and unlabored respirations on NC Skin: Skin intact where visible to head, neck, and bilateral upper and lower extremities Neurological: Alert and oriented x 3 CN II-XII grossly intact Speech is clear, fluent. Follows 3 step commands. Normal bulk and tone of all muscles without atrophy B/L UE 5/5 except right shoulder cannot abduct past 40-60 degrees, left EF 4/5 B/L HF 2/5, KE 2/5, Left DF and EHL 5, Right DF and EHL 4/5 Sensation light touch diminished blle Extremities: B/L calves are supple, non-tender, no cords Psychiatric: Calm and cooperative Results CBC & Chem 7: 12/31/23 03:11 12/31/23 03:11 Labs: Abnormal Lab Results - Last 24 Hours (Table) 12/30/23 12/30/23 12/31/23 Range/Units 03:36 20:24 03:11 RBC 3.01 L (4.40-5.60) X 10*6/uL Hgb 9.9 L (13.0-17.0) g/dL Hct 32.1 L (39.6-50.0) % MCV 106.6 H (80.0-97.0) FL MCH 32.9 H (27.0-32.0) pg MCHC 30.8 L (32.0-37.0) g/dL RDW 16.1 H (11.5-14.5) % Plt Count 89 L (140-440) X 10*3/uL Immature Gran # 0.06 H (0.00-0.04) X 10*3/uL Lymphocytes # 0.55 L (0.90-5.00) X 10*3/uL D-Dimer (<0.60) mg/L FEU Sodium (135-145) mmol/L BUN (9.0-27.0) mg/dL BUN/Creatinine Ratio (12.00-20.00) Ratio POC Glucose (mg/dL) 112 H (70-110) mg/dL Calcium (8.7-10.3) mg/dL NT-Pro-B Natriuret Pep 2851 H (0-450) pg/mL Total Protein (6.2-8.2) g/dL Albumin (3.8-4.9) g/dL Globulin (1.6-3.3) g/dL 12/31/23 12/31/23 12/31/23 Range/Units 03:11 09:45 11:05 RBC (4.40-5.60) X 10*6/uL Hgb (13.0-17.0) g/dL Hct (39.6-50.0) % MCV (80.0-97.0) FL MCH (27.0-32.0) pg MCHC (32.0-37.0) g/dL RDW (11.5-14.5) % Plt Count (140-440) X 10*3/uL Immature Gran # (0.00-0.04) X 10*3/uL Lymphocytes # (0.90-5.00) X 10*3/uL D-Dimer 0.66 H (<0.60) mg/L FEU Sodium 134 L (135-145) mmol/L BUN 36.5 H (9.0-27.0) mg/dL BUN/Creatinine Ratio 33.18 H (12.00-20.00) Ratio POC Glucose (mg/dL) 283 H (70-110) mg/dL Calcium 7.8 L (8.7-10.3) mg/dL NT-Pro-B Natriuret Pep (0-450) pg/mL Total Protein 4.3 L (6.2-8.2) g/dL Albumin 2.8 L (3.8-4.9) g/dL Globulin 1.5 L (1.6-3.3) g/dL Assessment and Plan Assessment: Assessment / Plan: # Decline in function 2 L3 compression fracture s/p L1-4 fusion, L1-S1 instrumentation with Dr. Ashton -PT/OT for mobilization #Colon Adenocarcinoma -no plans for surgery at this time d/t high risk #Atrial fibrillation -Eliquis BID -S/P GENARO and cardioversion on 11/28/23 #Cervical Degenerative Disc Disease # Bowel/ Bladder: Nursing to monitor and report concerns if any. # Skin/wound: Skin/Wound care to follow as needed #Anxiety -Sertraline # CoMorbidities: CVA/TIA, GERD/Reflux, HTN, hyperlipidemia, OA, BPH, hearing difficulty, tinnitus, hx kidney stones # Your medical dx and mgt Barriers: fall risk, oxygen therapy Disposition: Therapies reviewed max to total assist for ADLs; pain limited. Continue with therapies for mobilization. Recommend DO after dc- was recently at [facility] . Thank you for this consult.
--- NOTE | 2023-12-31 15:17 | P.CONS ---
History of Present Illness - Reason for Consult Consult date: 12/31/23 Urinary tract infection Requesting physician: Juan C eBltran - Chief Complaint Back pain x days - History of Present Illness Patient is a 83-year-old male with a past medical history significant for hyperlipidemia osteoarthritis reflux CVA TIA atrial fibrillation prostate disorder presenting to the hospital on 12/25/2023 as the patient was sent from orthopedics office for admission he did have an MRI of the lumbar spine on 12/04/2023 which did shows acute/subacute fracture of the L3 greater than 75% height loss patient subsequently was taken to the OR on 12/27/2023 and the patient is status post L1-L4 posterior lateral fusion at the patient has been in the hospital recovering from the surgery patient is requiring a Mulligan catheter during this hospital stay which was discontinued today as reported by the nursing staff patient did have a positive UA on admission however no cultures were done which subsequently UA done on 12/30/2023 we did shows moderate le ukocyte esterase and 12 WBC patient has been on IV Rocephin since 12/26/2023 infectious disease was consulted last evening for further management of his UTI. On today's evaluation that is 12/31/2023 patient denies having any fever or any chills and no fever have recorded during this hospital stay, patient denies having any chest pain or shortness of breath occasional cough no nausea vomiting no abdominal pain or diarrhea rather constipated Mulligan catheter has been discontinued denies significant burning of urine. Patient did have a white count of 6.08 this morning creatinine is 1.1 liver enzymes are normal Review of Systems Positive point and negatives has been mentioned in the HPI, complete review of systems was performed and all other systems are negative Past Medical History Past Medical History: Atrial Fibrillation, CVA/TIA, GERD/Reflux, Hearing Disorder / Deafness, Hyperlipidemia, Osteoarthritis (OA), Prostate Disorder Additional Past Medical History / Comment(s): Tinnitus, Hx kidney stones, BPH, LUNG SCARRING. 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 History of Any Multi-Drug Resistant Organisms: None Reported Past Surgical History: Adenoidectomy, Ear Surgery, Heart Catheterization, Joint Replacement, Tonsillectomy Additional Past Surgical History / Comment(s): Oral surgery, diana knee replacements, partial thyroidectomy, diana cataracts. EGD, COLONOSCOPY cardioversion Past Anesthesia/Blood Transfusion Reactions: No Reported Reaction Past Psychological History: Anxiety Smoking Status: Former smoker Past Alcohol Use History: None Reported Additional Past Alcohol Use History / Comment(s): quit smoking 1986, started smoking age 17 Past Drug Use History: None Reported - Past Family History Mother Family Medical History: No Reported History Additional Family Medical History / Comment(s): . Medications and Allergies Home Medications Medication Instructions Recorded Confirmed Type Sertraline HCl [Zoloft] 200 mg PO DAILY 10/30/13 12/25/23 History Acetaminophen Tab [Tylenol] 1,000 mg PO HS 08/08/18 12/25/23 History Metoprolol Tartrate [Lopressor] 25 mg PO BID 07/01/21 12/25/23 History Amiodarone [Cordarone] 200 mg PO BID tab 12/05/23 12/25/23 Rx Apixaban [Eliquis] 2.5 mg PO BID #0 tab 12/05/23 12/25/23 Rx Dapagliflozin Propanediol [Farxiga] 10 mg PO DAILY tab 12/05/23 12/25/23 Rx Docusate [Colace] 100 mg PO BID cap 12/05/23 12/25/23 Rx Furosemide [Lasix] 20 mg PO DAILY tab 12/05/23 12/25/23 Rx Sacubitril/Valsartan [Entresto 24 1 tab PO BID 12/25/23 12/25/23 History mg-26 mg Tablet] Temazepam [Restoril] 7.5 mg PO HS 12/25/23 12/25/23 History guaiFENesin SYRUP 100MG/5ML 200 mg PO Q4H PRN 12/25/23 12/25/23 History [Robitussin] Allergies Allergy/AdvReac Type Severity Reaction Status Date / Time hydrocodone [From Lortab] Allergy SEVERE Verified 12/25/23 15:48 ABDOMINAL AND TROUBLE BREATHING hydrocodone bitartrate Allergy Anaphylaxis Verified 12/25/23 15:48 [From Vicodin] Penicillins Allergy Anaphylaxis Verified 12/25/23 15:48 propoxyphene napsylate Allergy Anaphylaxis Verified 12/25/23 15:48 [From Darvocet-N 100] tamsulosin HCl [From Flomax] Allergy Anaphylaxis Verified 12/25/23 15:48 Physical Exam Vitals: Vital Signs Temp Pulse Pulse Resp BP BP Pulse Ox 12/31/23 06:50 97.4 F L 86 18 103/62 90 L 12/31/23 01:38 98.3 F 114 H 18 101/61 91 L 12/30/23 19:02 97.7 F 116 H 18 111/67 91 L 12/30/23 14:39 106 H 112/75 90 L 12/30/23 13:23 99.2 F 117 H 16 82/42 Intake and Output 12/30/23 12/31/23 12/31/23 22:59 06:59 14:59 Output Total 650 253 Balance -650 -253 Output: Urine 650 Uretheral (Mulligan) 650 Post Void Residual 253 Other: Voiding Method Diaper Incontinent # Voids 2 # Bowel Movements 1 GENERAL DESCRIPTION: Elderly male up in the chair, no distress. No tachypnea or accessory muscle of respiration use. HEENT: Shows Pallor , no scleral icterus. Oral mucous membrane is dry. No pharyngeal erythema or thrush NECK: Trachea central, no thyromegaly. LUNGS: Unlabored breathing. Clear to auscultation anteriorly. No wheeze or crackle. HEART: S1, S2, regular rate and rhythm. No loud murmur ABDOMEN: Soft, no tenderness , guarding or rigidity, no organomegaly EXTREMITIES: No edema of feet. SKIN: No rash, no masses palpable. NEUROLOGICAL: The patient is awake, alert, oriented x3, mood and affect normal. Results CBC & Chem 7: 01/02/24 02:49 01/02/24 02:49 Labs: Abnormal Lab Results - Last 24 Hours (Table) 12/30/23 12/30/23 12/30/23 Range/Units 03:36 14:20 20:24 RBC (4.40-5.60) X 10*6/uL Hgb (13.0-17.0) g/dL Hct (39.6-50.0) % MCV (80.0-97.0) FL MCH (27.0-32.0) pg MCHC (32.0-37.0) g/dL RDW (11.5-14.5) % Plt Count (140-440) X 10*3/uL Immature Gran # (0.00-0.04) X 10*3/uL Lymphocytes # (0.90-5.00) X 10*3/uL D-Dimer (<0.60) mg/L FEU Sodium (135-145) mmol/L BUN (9.0-27.0) mg/dL BUN/Creatinine Ratio (12.00-20.00) Ratio POC Glucose (mg/dL) 112 H (70-110) mg/dL Calcium (8.7-10.3) mg/dL NT-Pro-B Natriuret Pep 2851 H (0-450) pg/mL Total Protein (6.2-8.2) g/dL Albumin (3.8-4.9) g/dL Globulin (1.6-3.3) g/dL Urine Protein 1+ H (Negative) Urine Glucose (UA) 1+ H (Negative) Urine Blood Small H (Negative) Ur Leukocyte Esterase Moderate H (Negative) Urine RBC 12 H (0-5) /hpf Urine WBC 12 H (0-5) /hpf Urine Mucus Rare H (None) /hpf 12/31/23 12/31/23 12/31/23 Range/Units 03:11 03:11 09:45 RBC 3.01 L (4.40-5.60) X 10*6/uL Hgb 9.9 L (13.0-17.0) g/dL Hct 32.1 L (39.6-50.0) % MCV 106.6 H (80.0-97.0) FL MCH 32.9 H (27.0-32.0) pg MCHC 30.8 L (32.0-37.0) g/dL RDW 16.1 H (11.5-14.5) % Plt Count 89 L (140-440) X 10*3/uL Immature Gran # 0.06 H (0.00-0.04) X 10*3/uL Lymphocytes # 0.55 L (0.90-5.00) X 10*3/uL D-Dimer 0.66 H (<0.60) mg/L FEU Sodium 134 L (135-145) mmol/L BUN 36.5 H (9.0-27.0) mg/dL BUN/Creatinine Ratio 33.18 H (12.00-20.00) Ratio POC Glucose (mg/dL) (70-110) mg/dL Calcium 7.8 L (8.7-10.3) mg/dL NT-Pro-B Natriuret Pep (0-450) pg/mL Total Protein 4.3 L (6.2-8.2) g/dL Albumin 2.8 L (3.8-4.9) g/dL Globulin 1.5 L (1.6-3.3) g/dL Urine Protein (Negative) Urine Glucose (UA) (Negative) Urine Blood (Negative) Ur Leukocyte Esterase (Negative) Urine RBC (0-5) /hpf Urine WBC (0-5) /hpf Urine Mucus (None) /hpf Assessment and Plan (1) UTI (urinary tract infection) Current Visit: Yes Status: Acute Code(s): N39.0 - URINARY TRACT INFECTION, SITE NOT SPECIFIED SNOMED Code(s): 64057994 (2) Penicillin allergy Current Visit: Yes Status: Acute Code(s): Z88.0 - ALLERGY STATUS TO PENICILLIN SNOMED Code(s): 74746935 Plan: 1patient presented to hospital with worsening back pain in this patient who did have L3 compression fracture and this patient is status post L1-L4 posterior lateral fusion patient also have a history of prostate disorder with urinary outlet obstruction and did require Mulligan catheter placement during this admission and did have significantly positive UA on admission however no cultures were done subsequent discontinuation of the Mulligan catheter repeat UA is mildly positive, patient mention off-and-on burning of urine concerning for symptomatic UTI 2May continue with the Rocephin and review of clinical improvement as well as improvement in the UA while waiting for the culture to finalize We will follow on clinical condition and cultures to further adjust medication if needed Thank you for this consultation we will follow the patient along with you Dictation was produced using [employer] dictation software. please excuse any grammatical, word or spelling errors. Time with Patient: Greater than 30
--- NOTE | 2023-12-31 15:25 | CDI ---
Documentation Clarification Form Date: 12/31/2023 03:18:50 PM From: Cele Serra RN, CCDS Phone: [phone] Admit Date: 12/25/2023 03:14:00 PM Patient Name: Nick Vora Visit Number: [id number] Discharge Date: ATTENTION: The Clinical Documentation Specialists (CDI) and [facility] Coding Staff appreciate your assistance in clarifying documentation. Please respond to the clarification below the line at the bottom and electronically sign. The CDI & [facility] Coding staff will review the response and follow-up if needed. Please note: Queries are made part of the Legal Health Record. If you have any questions, please contact the author of this message via ITS. Doctor/Provider: Joana August Postoperative atelectasis is documented in the pulmonary consult on 12/31/23 and patient had Open treatment fracture and fusion on 12/27/23. Additional clarification is requested regarding the relationship, if any, that exists between the diagnosis and the procedure. Patients Admitting Diagnosis: L2-3 AO Type B3 Hyperextension Injury, Unstable, IN an Ankylosed spine. L3 AO Type A4 A4 Burst Fracture, Lumbar stenosis, Post-Operative Diagnosis: Same Procedure performed: L2-3 Open treatment fracture with L1-S1 Stabilization, Fusion and Deformity correction History/Risk Factors: Atrial Fibrillation, CVA/TIA, GERD/Reflux, Hyperlipidemia, thrombocytopenia, Invasive adenocarcinoma, Former smoker Clinical Indicators: 83-year-old male presents to ED had MRI showing fracture of his back. He had surgery on 12/27/2312/30 VS 103/62 86 18 97.4 90% 6/L NC 12/30 WBC 6.08 HB 9.9 HCT 32.1 12/24 CXR: No acute process 12/28 CXR: No interval change. Probable mild basilar atelectasis. No overt CHF. 12/29 CXR: No significant change form one day prior. Treatment: Incentive spirometry DuoNeb inhalation 4 times daily and as needed Monitor O2 Sat's (Titrate as tolerated) Increase activity as tolerated What relationship, if any, exists between the diagnosis of postoperative atelectasis and the procedure? [ ] Postoperative atelectasis is a complication of surgical procedure [ x ] Postoperative atelectasis is an expected outcome of the surgical procedure [ ] Postoperative atelectasis is related to patients co-morbid condition(s) of [insert co-morbid dxs] & not a complication of the procedure [ ] Other please specify ____ [ ] Unable to determine (Template Last Revised: April 2020) MTDD
--- NOTE | 2023-12-31 15:58 | CDI ---
Documentation Clarification Form Date: 12/31/2023 03:56:55 PM From: Cele Serra Phone: [phone] Admit Date: 12/25/2023 03:14:00 PM Patient Name: Nick Vora Visit Number: [id number] Discharge Date: ATTENTION: The Clinical Documentation Specialists (CDI) and [facility] Coding Staff appreciate your assistance in clarifying documentation. Please respond to the clarification below the line at the bottom and electronically sign. The CDI & [facility] Coding staff will review the response and follow-up if needed. Please note: Queries are made part of the Legal Health Record. If you have any questions, please contact the author of this message via ITS. Love Hamilton PA-C Unspecified anemia is documented in the ongoing progress notes starting on 12/30/23. Additional specificity regarding the type and acuity] of anemia is requested. History/Risk Factors: Atrial Fibrillation, CVA/TIA, GERD/Reflux, Hyperlipidemia, thrombocytopenia, Invasive adenocarcinoma Former smoker Clinical indicators: 83-year-old male presents to ED had MRI showing fracture of his back. 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
[2023-12-31 16:04] LABS: Glucose,Whole Blood 124 mg/dL (70-110)
[2023-12-31 19:52] LABS: Glucose,Whole Blood 105 mg/dL (70-110)
[2024-01-01 06:42] LABS: Glucose,Whole Blood 94 mg/dL (70-110)
--- NOTE | 2024-01-01 07:10 | P.PN ---
Progress Note - Text Progress Note Date: 12/31/23 Patient seen and evaluated. Patient has acute blood loss anemia, 4 to 5 g drop following recent surgery; recent atrial fibrillation with rapid ventricular response, hypoalbuminemia, now malnourished and weak. Proceeding with another large complex surgery withing 1 week from each other is disadvantageous with higher risk of morbidity and mortality during current admission. Recommend complete recovery. Surgery date for 01/01 and 01/02 is cancelled and will be re- scheduled once cleared from orthopedic surgeon and consultants. Patient made aware of risks with shared decision making performed.
[2024-01-01 08:33] LABS: Basophils # (A) 0.02 X 10*3/uL (0.00-0.10); Basophils % (A) 0.5 %; Eosinophils # (A) 0.11 X 10*3/uL (0.04-0.35); Eosinophils % (A) 2.6 %; HCT 33.3 % (39.6-50.0); HGB 10.1 g/dL (13.0-17.0); Lymphocytes % (A) 11.6 %; MCH 32.6 pg (27.0-32.0); MCHC 30.3 g/dL (32.0-37.0); MCV 107.4 FL (80.0-97.0); Mean Platelet Volume 11.4 FL (9.5-12.2); Monocytes # (A) 0.34 X 10*3/uL (0.20-1.00); Monocytes % (A) 7.9 %; NRBC Per 100 WBC 0 X 10*3/uL (0.00-0.01); Neutrophils # (A) 3.27 X 10*3/uL (1.80-7.70); Platelet Count 109 X 10*3/uL (140-440); RDW 16.1 % (11.5-14.5)
[2024-01-01 08:42] LABS: BUN/Creat Ratio 29.83 Ratio (12.00-20.00); Blood Urea Nitrogen 35.8 mg/dL (9.0-27.0); Glucose 99 mg/dL (70-110)
[2024-01-01 08:43] LABS: ALT 14 U/L (10-49); AST 18 U/L (14-35); Albumin 2.8 g/dL (3.8-4.9); Albumin/Globulin Ratio 1.75 Ratio (1.60-3.17); Alkaline Phosphatase 116 U/L (41-126); Carbon Dioxide 24.2 mmol/L (21.6-31.8); Chloride 104 mmol/L (96-109); Globulin 1.6 g/dL (1.6-3.3); Potassium 4.8 mmol/L (3.5-5.5); Sodium 135 mmol/L (135-145); Total Bilirubin 0.3 mg/dL (0.3-1.2); Total Protein 4.4 g/dL (6.2-8.2)
--- NOTE | 2024-01-01 09:01 | P.PN ---
Subjective Progress Note Date: 01/01/24 Nick Vora, is an 83 year-old male who presented to [facility] emergency room with a chief complaint of back pain and bilateral lower extremity weakness, he was evaluated at Dr. Ashton's office and was sent to emergency room for admission. He was evaluated in the emergency room vital examination on presentation revealed a temperature of 97.4 pulse 96 respiration 20 blood pressure 123/58 pulse ox 97% on 2 L nasal cannula Laboratory data revealed a white blood count of 7.3 hemoglobin 14.3 platelet count 147 sodium 136 potassium 4.9 chloride 103 CO2 28 BUN 44 creatinine 1.32 u rine analysis revealed evidence of urinary tract infection Testing in the emergency room revealed EKG done in the emergency room revealed sinus rhythm with first-degree AV block with poor R wave progression in anterior leads possible old infarction. Prior to admission patient had a CT scan of the lumbar spine which revealed compression deformity of L3 vertebral body, with moderate to severe spinal canal stenosis and mild to moderate neural foraminal stenosis, and moderate to severe canal stenosis at L4 and moderate to severe degeneration changes in the spine Patient was admitted to medical floor for further evaluation and treatment Past medical history is significant for history of atrial fibrillation maintained on Eliquis, history of hypertension, history of hyperlipidemia, history of osteoarthritis, history of benign prostatic hypertrophy, history of decreased hearing, history of recent colonoscopy with polypectomy on November 13, 2023, with pathology positive for invasive colonic adenocarcinoma, patient will need further surgical intervention on the colon when stable medically. On review of systems patient is alert and oriented x 3 in no apparent distress there is no fever or chills no headache or dizziness no chest pain no shortness of breath no cough no nausea or vomiting no abdominal pain no diarrhea no blood in the stools no burning with urination no frequency or urgency and no hematuria. On 12/28/2023 patient was seen and examined on the medical floor, he is alert and oriented x 3 in no apparent distress, there is no fever or chills no headache or dizziness no chest pain no shortness of breath no cough no nausea or vomiting no abdominal pain no diarrhea no blood in the stools no burning with urination no frequency or urgency and no hematuria. Patient is having significantly low blood pressure last night blood pressure was 80/43, he was started on IV fluid, he was also started on midodrine 5 mg p.o. 3 times daily, consultation for cardiology was initiated, otherwise patient is doing well, will continue to follow closely. 12/29/2023 patient is alert and oriented 3 currently resting comfortably in bed blood pressure has improved awaiting cardiology inputpatient denies chest pain or shortness breath. Patient denies nausea vomiting or diarrhea. Patient denies any urinary burning or frequency. Her vital signs temp 97.9, heart rate 62, respiratory rate 16, blood pressure 102/60 with pulse is 95% on 4 L On 12/30/2023 patient was seen and examined on the medical floor, he is alert and oriented x 3 in no apparent distress, there is no fever or chills no headache or dizziness no chest pain no shortness of breath no cough no nausea or vomiting no abdominal pain no diarrhea and no urinary symptoms. Patient has significant hypotension, he was evaluated yesterday by cardiology Dr. Doyle, at that time his dose of amiodarone was decreased to 200 mg once daily, and metoprolol was discontinued, today patient continues to be hypotensive, he is currently in atrial fibrillation with a heart rate of 117, Dr. Eller was contacted earlier by the nurse, and his cardiac medications are being readjusted again, blood culture urine culture and chest x-ray were ordered to rule out any infectious process causing hypotension. Will continue to follow closely. On 12/31/2023 patient is alert and oriented x 3. Vitals improved today cardiac meds adjusted per cardiology. Chest x-ray completed showing no significant change no evidence for focal airspace consolidation. Patient remains on IV Rocephin. Current vital signs temp 97.4, heart rate 86, respiratory rate 18, blood pressure 103/62 with a pulse ox of 90% on 6 L. Patient denies chest pain or shortness of breath. Patient denies nausea vomiting or diarrhea. Patient denies any urinary burning or frequency On 01/01/2024 patient is alert and oriented resting in bed. Venous Doppler completed showing negative for DVT. Per pulmonary suspicion for pulmonary embolism is extremely low. Recommendations to continue incentive spirometer bronchodilators. Current vital signs temp 97.6, heart rate 89, respiratory rate 16, blood pressure 109/68 with a pulse ox of 93% on 6 L. Patient denies chest pain or shortness of breath. Patient denies nausea vomiting or diarrhea. Patient denies any urinary burning or frequency Objective - Vital Signs Vital signs: Vital Signs Temp 97.6 F 01/01/24 07:52 Pulse 89 01/01/24 07:52 Resp 16 01/01/24 07:52 BP 109/68 01/01/24 07:52 Pulse Ox 93 L 01/01/24 07:52 FiO2 Intake & Output 12/31/23 01/01/24 01/01/24 18:59 06:59 18:59 Output Total 500 800 Balance -500 -800 Weight 108.409 kg Output: Urine 500 800 Other: Voiding Method Incontinent External Catheter # Bowel Movements 1 - Exam In general patient is alert and oriented x 3 in no distress HEENT head normocephalic and atraumatic Neck is supple no JVD no goiter no lymphadenopathy no carotid bruit Chest examination is clear to auscultation no crackles no wheezing Cardiac exam reveals regular heart sounds S1 and S2 no gallops no murmurs Abdomen is soft nontender no organomegaly with normal bowel sounds Extremity exam reveals no edema no cyanosis or clubbing Neurological examination reveals no gross focal deficits - Labs CBC & Chem 7: 01/01/24 03:37 01/01/24 03:37 Labs: Abnormal Lab Results - Last 24 Hours (Table) 12/31/23 12/31/23 12/31/23 Range/Units 03:11 09:45 11:05 WBC (4.50-10.00) X 10*3/uL RBC (4.40-5.60) X 10*6/uL Hgb (13.0-17.0) g/dL Hct (39.6-50.0) % MCV (80.0-97.0) FL MCH (27.0-32.0) pg MCHC (32.0-37.0) g/dL RDW (11.5-14.5) % Plt Count (140-440) X 10*3/uL Immature Gran # (0.00-0.04) X 10*3/uL Lymphocytes # (0.90-5.00) X 10*3/uL D-Dimer 0.66 H (<0.60) mg/L FEU Sodium 134 L (135-145) mmol/L BUN 36.5 H (9.0-27.0) mg/dL BUN/Creatinine Ratio 33.18 H (12.00-20.00) Ratio POC Glucose (mg/dL) 283 H (70-110) mg/dL Calcium 7.8 L (8.7-10.3) mg/dL Total Protein 4.3 L (6.2-8.2) g/dL Albumin 2.8 L (3.8-4.9) g/dL Globulin 1.5 L (1.6-3.3) g/dL 12/31/23 01/01/24 01/01/24 Range/Units 16:01 03:37 03:37 WBC 4.30 L (4.50-10.00) X 10*3/uL RBC 3.10 L (4.40-5.60) X 10*6/uL Hgb 10.1 L (13.0-17.0) g/dL Hct 33.3 L (39.6-50.0) % MCV 107.4 H (80.0-97.0) FL MCH 32.6 H (27.0-32.0) pg MCHC 30.3 L (32.0-37.0) g/dL RDW 16.1 H (11.5-14.5) % Plt Count 109 L (140-440) X 10*3/uL Immature Gran # 0.06 H (0.00-0.04) X 10*3/uL Lymphocytes # 0.50 L (0.90-5.00) X 10*3/uL D-Dimer (<0.60) mg/L FEU Sodium (135-145) mmol/L BUN 35.8 H (9.0-27.0) mg/dL BUN/Creatinine Ratio 29.83 H (12.00-20.00) Ratio POC Glucose (mg/dL) 124 H (70-110) mg/dL Calcium 8.0 L (8.7-10.3) mg/dL Total Protein 4.4 L (6.2-8.2) g/dL Albumin 2.8 L (3.8-4.9) g/dL Globulin (1.6-3.3) g/dL Microbiology - Last 24 Hours (Table) 12/30/23 14:20 Urine Culture - Final Urine,Voided 12/30/23 14:35 Blood Culture - Preliminary Blood Assessment and Plan Plan: Low back pain with bilateral lower extremity weakness. Status post lumbar fusion Evidence of urinary tract infection Underlying history of hypertension Underlying history of hyperlipidemia Underlying history of paroxysmal atrial fibrillation Underlying history of osteoarthritis Underlying history of benign prostatic hypertrophy Underlying history of decreased hearing Underlying history of invasive colonic adenocarcinoma patient will need surgical intervention in the near future At this time patient was seen and examined Home medications reviewed and reordered At this time will hold Eliquis in anticipation for surgical intervention DVT prophylaxis with SCD stockings Patient was started on IV ceftriaxone for urinary tract infection Patient is at increased surgical risk due to his multiple medical problems, however there is no medical contraindication for surgery Will continue to follow closely
[2024-01-01 11:57] LABS: Glucose,Whole Blood 94 mg/dL (70-110)
--- NOTE | 2024-01-01 12:41 | P.PN ---
Subjective Progress Note Date: 01/01/24 This is an 83-year-old male patient with a known history of atrial fibrillation, CVA/TIA, hearing disorder, hyperlipidemia, anxiety, former smoker who presented here to the hospital back on December 25, [address] Ashton's office. The patient had taken a fall in October 2023 and the MRI showed fracture of his back. He was at [facility] doing rehabilitation without much improvement. He is still unable to ambulate and has lower extremity weakness. On December 27, 2023 he did undergo surgery including open treatment of L2-3 for hyperextension fracture. L1-L4 posterior lateral fusion. We are consulted today due to his increasing oxygen requirements currently on 6 L high flow nasal cannula. Chest x-ray reveals evidence of atelectasis in the bilateral bases. No focal airspace consolidation. White count 6.0. Hemoglobin 9.9. Platelets 89,000. D-dimer 0.66. Sodium 134. Potassium 4.6. Bicarb 24. BUN 36. Creatinine 1.1. Glucose 101. He is currently on ceftriaxone. Anticoagulated with Eliquis. Adequate pain control. He is seen today in consultation on the regular medical floor. He is currently up in a chair at the bedside. Awake and alert in no acute distress. He has a loose nonproductive cough. No fever or chills. The patient is seen today January 01, 2024 in follow-up on the regular medical floor. Currently resting in bed. Awake and alert in no acute distress. He is down to 4 L high flow nasal cannula with O2 saturations in the 90s. Dopplers of the lower extremities revealed no evidence of DVT. Blood cultures revealed no growth to date. Urine culture revealed no growth. White count 4.3. Hemoglobin 10.1. Platelets 109. Sodium 135. Potassium 4.8. Bicarb 24. BUN 36. Creatinine 1.2. Glucose 99. He remains on DuoNeb inhalations. Anticoagulated with Eliquis. He remains on ceftriaxone. Objective - Vital Signs Vital signs: Vital Signs Temp 97.6 F 01/01/24 07:52 Pulse 120 H 01/01/24 12:25 Resp 16 01/01/24 07:52 BP 109/68 01/01/24 07:52 Pulse Ox 93 L 01/01/24 07:52 FiO2 Intake & Output 12/31/23 01/01/24 01/01/24 18:59 06:59 18:59 Output Total 500 800 Balance -500 -800 Weight 108.409 kg Output: Urine 500 800 Other: Voiding Method Incontinent External Catheter Incontinent External Catheter # Bowel Movements 1 - Exam GENERAL EXAM: Alert, 83-year-old male, on 4 L high flow nasal cannula, fairly comfortable in no apparent distress. HEAD: Normocephalic. EYES: Normal reaction of pupils, equal size. NOSE: Clear with pink turbinates. THROAT: No erythema or exudates. NECK: No masses, no JVD. CHEST: No chest wall deformity. LUNGS: Equal air entry with no crackles, wheeze, rhonchi or dullness. CVS: S1 and S2 normal with no audible murmur, regular rhythm. ABDOMEN: No hepatosplenomegaly, normal bowel sounds, no guarding or rigidity. SPINE: Surgical dressing dry and intact. SKIN: No rashes CENTRAL NERVOUS SYSTEM: No focal deficits, tone is normal in all 4 extremities. EXTREMITIES: There is no peripheral edema. No clubbing, no cyanosis. Peripher al pulses are intact. - Labs CBC & Chem 7: 01/01/24 03:37 01/01/24 03:37 Labs: Abnormal Lab Results - Last 24 Hours (Table) 12/31/23 01/01/24 01/01/24 Range/Units 16:01 03:37 03:37 WBC 4.30 L (4.50-10.00) X 10*3/uL RBC 3.10 L (4.40-5.60) X 10*6/uL Hgb 10.1 L (13.0-17.0) g/dL Hct 33.3 L (39.6-50.0) % MCV 107.4 H (80.0-97.0) FL MCH 32.6 H (27.0-32.0) pg MCHC 30.3 L (32.0-37.0) g/dL RDW 16.1 H (11.5-14.5) % Plt Count 109 L (140-440) X 10*3/uL Immature Gran # 0.06 H (0.00-0.04) X 10*3/uL Lymphocytes # 0.50 L (0.90-5.00) X 10*3/uL BUN 35.8 H (9.0-27.0) mg/dL BUN/Creatinine Ratio 29.83 H (12.00-20.00) Ratio POC Glucose (mg/dL) 124 H (70-110) mg/dL Calcium 8.0 L (8.7-10.3) mg/dL Total Protein 4.4 L (6.2-8.2) g/dL Albumin 2.8 L (3.8-4.9) g/dL Microbiology - Last 24 Hours (Table) 12/30/23 14:20 Urine Culture - Final Urine,Voided 12/30/23 14:35 Blood Culture - Preliminary Blood Assessment and Plan Assessment: Acute hypoxic respiratory failure secondary to atelectatic changes in the lung bases as an expected outcome of surgery Recent fall with fracture to the spine, status post open treatment L2-3 for hyperextension fracture, L1-L4 posterior lateral fusion. Postoperative day #5 Atrial fibrillation anticoagulated with Eliquis Cardiomyopathy with an ejection fraction 25 to 30% Moderate to severe pulmonary hypertension History of mild coronary artery disease History of colon cancer, to be scheduled for colectomy once recovered History of CVA/TIA History of hearing disorder Hyperlipidemia Former smoker Poor functional performance based on the above-mentioned multiple comorbidities Plan: The patient was seen and evaluated Imaging, labs and medications reviewed Titrate down the FiO2 as tolerated Increase the use of the incentive spirometer Continue DuoNeb inhalations 4 times daily and as needed Check a procalcitonin Anticoagulated with Eliquis May qualify for inpatient rehabilitation We will continue to follow I have personally seen and examined the patient, performed the documentation and the assessment and plan as written. Number of minutes spent on the visit: 10 Dictation was produced using [employer] dictation software. Please excuse any grammatical, word or spelling errors.
--- NOTE | 2024-01-01 14:10 | P.PN ---
Subjective Progress Note Date: 01/01/24 SURGICAL PROGRESS NOTE HISTORY OF PRESENT ILLNESS: Surgical service following in regards to patient's colon cancer. Patient is sitting up in bed comfortably. Denies any abdominal pain. He reports having flatus. No bowel movement. Patient does not have teeth and has difficulty with chewing regular food. afebrile. Tachy. WBC 4.3 Hgb 10.1 platelets 109 PHYSICAL EXAM: VITAL SIGNS: Reviewed. GENERAL: Well-developed in no acute distress. ABDOMEN: Soft. Nondistended. Nontender. NEUROLOGIC: Alert and oriented. Cranial nerves II through XII grossly intact. ASSESSMENT: 1. Colon adenocarcinoma 2. Status post recent back surgery 3. Acute blood loss anemia following recent surgery 4. Thrombocytopenia 5. History of A-fib 6. Hypoalbuminemia PLAN: -No plans for colectomy during this admission. -Proceeding with another large complex surgery within 1 week from each other is disadvantageous with higher risk of morbidity and mortality during current admission. Recommend complete recovery. -Recommend high protein diet. Will change diet to ground diet due to patient having difficulty chewing food without his teeth. -Continue supportive care Physician Bag Bundler note has been reviewed by physician. Signing provider agrees with the documented findings, assessment, and plan of care. Objective - Vital Signs Vital signs: Vital Signs Temp 97.6 F 01/01/24 07:52 Pulse 120 H 01/01/24 12:25 Resp 16 01/01/24 07:52 BP 109/68 01/01/24 07:52 Pulse Ox 93 L 01/01/24 07:52 FiO2 Intake & Output 12/31/23 01/01/24 01/01/24 18:59 06:59 18:59 Output Total 500 800 Balance -500 -800 Weight 108.409 kg Output: Urine 500 800 Other: Voiding Method Incontinent External Catheter Incontinent # Bowel Movements 1 - Labs CBC & Chem 7: 01/01/24 03:37 01/01/24 03:37 Labs: Abnormal Lab Results - Last 24 Hours (Table) 12/31/23 01/01/24 01/01/24 Range/Units 16:01 03:37 03:37 WBC 4.30 L (4.50-10.00) X 10*3/uL RBC 3.10 L (4.40-5.60) X 10*6/uL Hgb 10.1 L (13.0-17.0) g/dL Hct 33.3 L (39.6-50.0) % MCV 107.4 H (80.0-97.0) FL MCH 32.6 H (27.0-32.0) pg MCHC 30.3 L (32.0-37.0) g/dL RDW 16.1 H (11.5-14.5) % Plt Count 109 L (140-440) X 10*3/uL Immature Gran # 0.06 H (0.00-0.04) X 10*3/uL Lymphocytes # 0.50 L (0.90-5.00) X 10*3/uL BUN 35.8 H (9.0-27.0) mg/dL BUN/Creatinine Ratio 29.83 H (12.00-20.00) Ratio POC Glucose (mg/dL) 124 H (70-110) mg/dL Calcium 8.0 L (8.7-10.3) mg/dL Total Protein 4.4 L (6.2-8.2) g/dL Albumin 2.8 L (3.8-4.9) g/dL Microbiology - Last 24 Hours (Table) 12/30/23 14:20 Urine Culture - Final Urine,Voided 12/30/23 14:35 Blood Culture - Preliminary Blood
--- NOTE | 2024-01-01 14:11 | P.PN ---
Subjective Progress Note Date: 01/01/24 HISTORY OF PRESENTING ILLNESS Patient with past medical history of paroxysmal atrial fibrillation, mild CAD, tobacco smoker. His last echo shows an EF of 25 to 30%, moderate to severe pulmonary hypertension, moderate tricuspid regurgitation, last heart cath from 2013 showed mild CAD. He has history of invasive adenocarcinoma, 12/30/2023 Patient is seen and examined. Patient remains tachycardic and EKG obtained which revealed sinus rhythm with first-degree block, PVCs.Request the patient be placed on surveillance system monitor. Regarding Eliquis, this has not been resumed but we have received clearance from orthopedic surgery. Blood pressure manual 82/42. Heart rate is 113. Patient appears to be asymptomatic with low blood pressure readings. We will order a small fluid bolus obtain UA to make sure patient is not septic and if blood pressures are not improved, transfer the patient to ICU. 12/31/2023 Patient is seen and examined. Blood pressure is improved from yesterday following a 200 cc IV fluid bolus. Yesterday, we also increased frequency of amiodarone to twice daily. Blood pressure 103/62, heart rate between 86 and 114 which is improved. Telemetry atrial fibrillation. Pulse ox 90% on 6 L nasal cannula. D-dimer ordered this morning came back positive at 0.66. Urinalysis was obtained and urine culture in progress. Patient has been maintained on ceftriaxone IV. Patient states that he is not doing well states he cannot sit up he is terribly weak. 01/01/2024 Patient seen and examined. Patient states that he is feeling better today. He denies having any chest pain. He states his breathing is okay. Blood pressure 109/68, heart rate 120, pulse ox 93% on 6 L nasal cannula. Overall, blood pressures improved. On telemetry, heart rate consistently running about 114. P atient remains in atrial fibrillation. Repeat blood work reveals WBC 4.3, hemoglobin 10.1, platelet count 109. Sodium 135, potassium 4.8, BUN 35 creatinine 1.2. Venous Doppler of the bilateral lower extremities completed yesterday was negative for DVT. Yesterday, D-dimer was noted to be minimally elevated likely secondary to recent surgery and not PE. Patient appears to be making slow improvement. PHYSICAL EXAMINATION Vital signs reviewed. Head: Normocephalic. Eyes: Sclerae nonicteric. Neck: Brisk carotid upstroke, no jugular venous distention. Lungs: Clear to auscultation. Heart: Regular rate and rhythm, S1-S2, no S3, no murmur or rub. Abdomen: Soft nontender, positive bowel sounds. Extremities: No edema, intact distal pulses. Neuro: Alert, oritented, no focal deficits. Detailed neuro exam was not performed. ASSESSMENT Hypotension History of known tachycardia induced cardiomyopathy Atrial fibrillation, currently in sinus rhythm Severe pulmonary hypertension Invasive adenocarcinoma Status post lumbar fusion UTI Pancytopenia PLAN Continue Eliquis 2.5 mg twice daily, lower dose due to borderline renal function Continue [id number] mg twice daily for atrial fibrillation Continue the addition of digoxin 125 mcg daily Midodrine as needed No medication changes made today. Continue to monitor blood pressure and telemetry. Nurse practitioner note has been reviewed, I agree with documented findings and plan of care. Patient was seen and examined. Objective - Vital Signs Vital signs: Vital Signs Temp 97.6 F 01/01/24 07:52 Pulse 120 H 01/01/24 09:30 Resp 16 01/01/24 07:52 BP 109/68 01/01/24 07:52 Pulse Ox 93 L 01/01/24 07:52 FiO2 Intake & Output 12/31/23 01/01/24 01/01/24 18:59 06:59 18:59 Output Total 500 800 Balance -500 -800 Weight 108.409 kg Output: Urine 500 800 Other: Voiding Method Incontinent External Catheter Incontinent External Catheter # Bowel Movements 1 - Labs CBC & Chem 7: 01/01/24 03:37 01/01/24 03:37 Labs: Abnormal Lab Results - Last 24 Hours (Table) 12/31/23 12/31/23 01/01/24 Range/Units 11:05 16:01 03:37 WBC 4.30 L (4.50-10.00) X 10*3/uL RBC 3.10 L (4.40-5.60) X 10*6/uL Hgb 10.1 L (13.0-17.0) g/dL Hct 33.3 L (39.6-50.0) % MCV 107.4 H (80.0-97.0) FL MCH 32.6 H (27.0-32.0) pg MCHC 30.3 L (32.0-37.0) g/dL RDW 16.1 H (11.5-14.5) % Plt Count 109 L (140-440) X 10*3/uL Immature Gran # 0.06 H (0.00-0.04) X 10*3/uL Lymphocytes # 0.50 L (0.90-5.00) X 10*3/uL BUN (9.0-27.0) mg/dL BUN/Creatinine Ratio (12.00-20.00) Ratio POC Glucose (mg/dL) 283 H 124 H (70-110) mg/dL Calcium (8.7-10.3) mg/dL Total Protein (6.2-8.2) g/dL Albumin (3.8-4.9) g/dL 01/01/24 Range/Units 03:37 WBC (4.50-10.00) X 10*3/uL RBC (4.40-5.60) X 10*6/uL Hgb (13.0-17.0) g/dL Hct (39.6-50.0) % MCV (80.0-97.0) FL MCH (27.0-32.0) pg MCHC (32.0-37.0) g/dL RDW (11.5-14.5) % Plt Count (140-440) X 10*3/uL Immature Gran # (0.00-0.04) X 10*3/uL Lymphocytes # (0.90-5.00) X 10*3/uL BUN 35.8 H (9.0-27.0) mg/dL BUN/Creatinine Ratio 29.83 H (12.00-20.00) Ratio POC Glucose (mg/dL) (70-110) mg/dL Calcium 8.0 L (8.7-10.3) mg/dL Total Protein 4.4 L (6.2-8.2) g/dL Albumin 2.8 L (3.8-4.9) g/dL Microbiology - Last 24 Hours (Table) 12/30/23 14:20 Urine Culture - Final Urine,Voided 12/30/23 14:35 Blood Culture - Preliminary Blood
[2024-01-02 08:44] LABS: Basophils # (A) 0.02 X 10*3/uL (0.00-0.10); Basophils % (A) 0.5 %; Eosinophils % (A) 2.4 %; HCT 32.6 % (39.6-50.0); Lymphocytes # (A) 0.63 X 10*3/uL (0.90-5.00); Lymphocytes % (A) 14.9 %; MCH 32.4 pg (27.0-32.0); MCHC 30.7 g/dL (32.0-37.0); MCV 105.5 FL (80.0-97.0); Mean Platelet Volume 11.4 FL (9.5-12.2); Monocytes # (A) 0.33 X 10*3/uL (0.20-1.00); Monocytes % (A) 7.8 %; NRBC Per 100 WBC 0 X 10*3/uL (0.00-0.01); Platelet Count 126 X 10*3/uL (140-440); RBC 3.09 X 10*6/uL (4.40-5.60); RDW 16.1 % (11.5-14.5); WBC 4.24 X 10*3/uL (4.50-10.00)
[2024-01-02 08:56] LABS: ALT 11 U/L (10-49); AST 18 U/L (14-35); Albumin 2.8 g/dL (3.8-4.9); Albumin/Globulin Ratio 1.65 Ratio (1.60-3.17); Alkaline Phosphatase 120 U/L (41-126); Blood Urea Nitrogen 33.3 mg/dL (9.0-27.0); Chloride 103 mmol/L (96-109); Globulin 1.7 g/dL (1.6-3.3); Glucose 104 mg/dL (70-110); Potassium 4.7 mmol/L (3.5-5.5); Sodium 136 mmol/L (135-145); Total Bilirubin 0.3 mg/dL (0.3-1.2); Total Protein 4.5 g/dL (6.2-8.2)
--- NOTE | 2024-01-02 09:21 | P.PN ---
Subjective Progress Note Date: 01/02/24 HISTORY OF PRESENTING ILLNESS Patient with past medical history of paroxysmal atrial fibrillation, mild CAD, tobacco smoker. His last echo shows an EF of 25 to 30%, moderate to severe pulmonary hypertension, moderate tricuspid regurgitation, last heart cath from 2013 showed mild CAD. He has history of invasive adenocarcinoma, 12/30/2023 Patient is seen and examined. Patient remains tachycardic and EKG obtained which revealed sinus rhythm with first-degree block, PVCs.Request the patient be placed on manager monitoring. Regarding Eliquis, this has not been resumed but we have received clearance from orthopedic surgery. Blood pressure manual 82/42. Heart rate is 113. Patient appears to be asymptomatic with low blood pressure readings. We will order a small fluid bolus obtain UA to make sure patient is not septic and if blood pressures are not improved, transfer the patient to ICU. 12/31/2023 Patient is seen and examined. Blood pressure is improved from yesterday following a 200 cc IV fluid bolus. Yesterday, we also increased frequency of amiodarone to twice daily. Blood pressure 103/62, heart rate between 86 and 114 which is improved. Telemetry atrial fibrillation. Pulse ox 90% on 6 L nasal cannula. D-dimer ordered this morning came back positive at 0.66. Urinalysis was obtained and urine culture in progress. Patient has been maintained on ceftriaxone IV. Patient states that he is not doing well states he cannot sit up he is terribly weak. 01/01/2024 Patient seen and examined. Patient states that he is feeling better today. He denies having any chest pain. He states his breathing is okay. Blood pressure 109/68, heart rate 120, pulse ox 93% on 6 L nasal cannula. Overall, blood pressures improved. On telemetry, heart rate consistently running about 114. P atient remains in atrial fibrillation. Repeat blood work reveals WBC 4.3, hemoglobin 10.1, platelet count 109. Sodium 135, potassium 4.8, BUN 35 creatinine 1.2. Venous Doppler of the bilateral lower extremities completed yesterday was negative for DVT. Yesterday, D-dimer was noted to be minimally elevated likely secondary to recent surgery and not PE. Patient appears to be making slow improvement. 01/01/2024 Patient is seen and examined. He states he is feeling okay today. His blood pressure is trending upward and heart rate is trending lower with heart rate in the 10 4-1 13 range. Blood pressure 112/65. Repeat blood work reveals hemoglobin of 10. Creatinine 1. PHYSICAL EXAMINATION Vital signs reviewed. Head: Normocephalic. Eyes: Sclerae nonicteric. Neck: Brisk carotid upstroke, no jugular venous distention. Lungs: Clear to auscultation. Heart: Regular rate and rhythm, S1-S2, no S3, no murmur or rub. Abdomen: Soft nontender, positive bowel sounds. Extremities: No edema, intact distal pulses. Neuro: Alert, oritented, no focal deficits. Detailed neuro exam was not performed. ASSESSMENT Hypotension History of known tachycardia induced cardiomyopathy Atrial fibrillation, currently in sinus rhythm Severe pulmonary hypertension Invasive adenocarcinoma Status post lumbar fusion UTI Pancytopenia PLAN Continue Eliquis 2.5 mg twice daily, lower dose due to borderline renal function Continue [id number] mg twice daily for atrial fibrillation Continue the addition of digoxin 125 mcg daily Midodrine as needed Cardiology will sign off this case and follow on an as-needed basis. Please reconsult for any new concerns. Patient may follow-up in the office in one to 2 weeks. Nurse practitioner note has been reviewed, I agree with documented findings and plan of care. Patient was seen and examined. Objective - Vital Signs Vital signs: Vital Signs Temp 97.6 F 01/02/24 06:46 Pulse 104 H 01/02/24 08:26 Resp 18 01/02/24 06:46 BP 112/65 01/02/24 06:46 Pulse Ox 94 L 01/02/24 08:14 FiO2 Intake & Output 01/01/24 01/02/24 01/02/24 18:59 06:59 18:59 Output Total 1300 Balance -1300 Output: Urine 1300 Other: Voiding Method Incontinent External Catheter # Bowel Movements 1 - Labs CBC & Chem 7: 01/02/24 02:49 01/02/24 02:49 Labs: Abnormal Lab Results - Last 24 Hours (Table) 01/01/24 Range/Units 03:37 BUN 35.8 H (9.0-27.0) mg/dL BUN/Creatinine Ratio 29.83 H (12.00-20.00) Ratio Calcium 8.0 L (8.7-10.3) mg/dL Total Protein 4.4 L (6.2-8.2) g/dL Albumin 2.8 L (3.8-4.9) g/dL Microbiology - Last 24 Hours (Table) 12/30/23 14:35 Blood Culture - Preliminary Blood
--- NOTE | 2024-01-02 13:30 | P.PN ---
Subjective Progress Note Date: 01/02/24 This is an 83-year-old male patient with a known history of atrial fibrillation, CVA/TIA, hearing disorder, hyperlipidemia, anxiety, former smoker who presented here to the hospital back on December 25, [address] Ashton's office. The patient had taken a fall in October 2023 and the MRI showed fracture of his back. He was at [facility] doing rehabilitation without much improvement. He is still unable to ambulate and has lower extremity weakness. On December 27, 2023 he did undergo surgery including open treatment of L2-3 for hyperextension fracture. L1-L4 posterior lateral fusion. We are consulted today due to his increasing oxygen requirements currently on 6 L high flow nasal cannula. Chest x-ray reveals evidence of atelectasis in the bilateral bases. No focal airspace consolidation. White count 6.0. Hemoglobin 9.9. Platelets 89,000. D-dimer 0.66. Sodium 134. Potassium 4.6. Bicarb 24. BUN 36. Creatinine 1.1. Glucose 101. He is currently on ceftriaxone. Anticoagulated with Eliquis. Adequate pain control. He is seen today in consultation on the regular medical floor. He is currently up in a chair at the bedside. Awake and alert in no acute distress. He has a loose nonproductive cough. No fever or chills. The patient is seen today January 01, 2024 in follow-up on the regular medical floor. Currently resting in bed. Awake and alert in no acute distress. He is down to 4 L high flow nasal cannula with O2 saturations in the 90s. Dopplers of the lower extremities revealed no evidence of DVT. Blood cultures revealed no growth to date. Urine culture revealed no growth. White count 4.3. Hemoglobin 10.1. Platelets 109. Sodium 135. Potassium 4.8. Bicarb 24. BUN 36. Creatinine 1.2. Glucose 99. He remains on DuoNeb inhalations. Anticoagulated with Eliquis. He remains on ceftriaxone. The patient is seen today January 02, 2024 in follow-up on the regular medical floor. He is awake and alert in no acute distress. Sitting up in a chair at the bedside. Maintaining O2 saturations in the 90s on 2 L/min per nasal cannula. No worsening shortness of breath, cough or congestion. Blood and urine cultures revealed no growth. White count 4.2. Hemoglobin 10.0. Platelets 126. Sodium 136. Potassium 4.7. Bicarb 25. BUN 33. Creatinine 1.0. Glucose 104. He remains on bronchodilators. Anticoagulated with Eliquis. Antibiotics in the form of ceftriaxone. Procalcitonin was 0.19. Objective - Vital Signs Vital signs: Vital Signs Temp 97.6 F 01/02/24 06:46 Pulse 111 H 01/02/24 11:49 Resp 18 01/02/24 11:49 BP 112/65 01/02/24 06:46 Pulse Ox 94 L 01/02/24 08:14 FiO2 Intake & Output 01/01/24 01/02/24 01/02/24 18:59 06:59 18:59 Output Total 1300 Balance -1300 Output: Urine 1300 Other: Voiding Method Incontinent External Catheter External Catheter # Bowel Movements 1 - Exam GENERAL EXAM: Alert, 83-year-old male, on 2 L high flow nasal cannula, sitting up in a chair, comfortable in no apparent distress. HEAD: Normocephalic. EYES: Normal reaction of pupils, equal size. NOSE: Clear with pink turbinates. THROAT: No erythema or exudates. NECK: No masses, no JVD. CHEST: No chest wall deformity. LUNGS: Equal air entry with no crackles, wheeze, rhonchi or dullness. CVS: S1 and S2 normal with no audible murmur, regular rhythm. ABDOMEN: No hepatosplenomegaly, normal bowel sounds, no guarding or rigidity. SPINE: Surgical dressing dry and intact. SKIN: No rashes CENTRAL NERVOUS SYSTEM: No focal deficits, tone is normal in all 4 extremities. EXTREMITIES: There is no peripheral edema. No clubbing, no cyanosis. Peripheral pulses are intact. - Labs CBC & Chem 7: 01/02/24 02:49 01/02/24 02:49 Labs: Abnormal Lab Results - Last 24 Hours (Table) 01/02/24 01/02/24 Range/Units 02:49 02:49 WBC 4.24 L (4.50-10.00) X 10*3/uL RBC 3.09 L (4.40-5.60) X 10*6/uL Hgb 10.0 L (13.0-17.0) g/dL Hct 32.6 L (39.6-50.0) % MCV 105.5 H (80.0-97.0) FL MCH 32.4 H (27.0-32.0) pg MCHC 30.7 L (32.0-37.0) g/dL RDW 16.1 H (11.5-14.5) % Plt Count 126 L (140-440) X 10*3/uL Immature Gran # 0.06 H (0.00-0.04) X 10*3/uL Lymphocytes # 0.63 L (0.90-5.00) X 10*3/uL BUN 33.3 H (9.0-27.0) mg/dL BUN/Creatinine Ratio 33.30 H (12.00-20.00) Ratio Calcium 8.0 L (8.7-10.3) mg/dL Total Protein 4.5 L (6.2-8.2) g/dL Albumin 2.8 L (3.8-4.9) g/dL Microbiology - Last 24 Hours (Table) 12/30/23 14:35 Blood Culture - Preliminary Blood Assessment and Plan Assessment: Acute hypoxic respiratory failure secondary to atelectatic changes in the lung bases as an expected outcome of surgery. Down to 2 L nasal cannula Recent fall with fracture to the spine, status post open treatment L2-3 for hyperextension fracture, L1-L4 posterior lateral fusion. Postoperative day #6 Atrial fibrillation anticoagulated with Eliquis Cardiomyopathy with an ejection fraction 25 to 30% Moderate to severe pulmonary hypertension History of mild coronary artery disease History of colon cancer, to be scheduled for colectomy once recovered History of CVA/TIA History of hearing disorder Hyperlipidemia Former smoker Poor functional performance based on the above-mentioned multiple comorbidities Plan: The patient was seen and evaluated Labs and medications reviewed Titrate down the FiO2 as tolerated Increase the use of the incentive spirometer Continue DuoNeb inhalations 4 times daily and as needed Anticoagulated with Eliquis Does not qualify for inpatient rehabilitation May need subacute rehabilitation I have personally seen and examined the patient, performed the documentation and the assessment and plan as written. Number of minutes spent on the visit: 10 Dictation was produced using [employer] dictation software. Please excuse any grammatical, word or spelling errors.
--- NOTE | 2024-01-02 14:40 | P.PN ---
Subjective Progress Note Date: 01/02/24 SURGICAL PROGRESS NOTE HISTORY OF PRESENT ILLNESS: Surgical service following in regards to patient's colon cancer. Patient is sitting up in bed comfortably. Denies any abdominal pain. He reports having flatus. And nursing staff have reported a bowel movement for today. Afebrile. Mild tachycardia. PHYSICAL EXAM: VITAL SIGNS: Reviewed. GENERAL: Well-developed in no acute distress. ABDOMEN: Soft. Nondistended. Nontender. NEUROLOGIC: Alert and oriented. Cranial nerves II through XII grossly intact. ASSESSMENT: 1. Colon adenocarcinoma 2. Status post recent back surgery 3. Acute blood loss anemia following recent surgery 4. Thrombocytopenia 5. History of A-fib 6. Hypoalbuminemia PLAN: -No plans for colectomy during this admission. -Proceeding with another large complex surgery within 1 week from each other is disadvantageous with higher risk of morbidity and mortality during current admission. Recommend complete recovery. -Recommend high protein diet -Continue stool softeners -Surgical service will sign off. Please call with any questions or concerns Physician Snow Plow Operator note has been reviewed by physician. Signing provider agrees with the documented findings, assessment, and plan of care. Objective - Vital Signs Vital signs: Vital Signs Temp 97.2 F L 01/02/24 13:33 Pulse 117 H 01/02/24 13:33 Resp 19 01/02/24 13:33 BP 119/66 01/02/24 13:33 Pulse Ox 93 L 01/02/24 13:33 FiO2 Intake & Output 01/01/24 01/02/24 01/02/24 18:59 06:59 18:59 Output Total 1300 Balance -1300 Output: Urine 1300 Other: Voiding Method Incontinent External Catheter External Catheter # Bowel Movements 1 - Labs CBC & Chem 7: 01/02/24 02:49 01/02/24 02:49 Labs: Abnormal Lab Results - Last 24 Hours (Table) 01/02/24 01/02/24 Range/Units 02:49 02:49 WBC 4.24 L (4.50-10.00) X 10*3/uL RBC 3.09 L (4.40-5.60) X 10*6/uL Hgb 10.0 L (13.0-17.0) g/dL Hct 32.6 L (39.6-50.0) % MCV 105.5 H (80.0-97.0) FL MCH 32.4 H (27.0-32.0) pg MCHC 30.7 L (32.0-37.0) g/dL RDW 16.1 H (11.5-14.5) % Plt Count 126 L (140-440) X 10*3/uL Immature Gran # 0.06 H (0.00-0.04) X 10*3/uL Lymphocytes # 0.63 L (0.90-5.00) X 10*3/uL BUN 33.3 H (9.0-27.0) mg/dL BUN/Creatinine Ratio 33.30 H (12.00-20.00) Ratio Calcium 8.0 L (8.7-10.3) mg/dL Total Protein 4.5 L (6.2-8.2) g/dL Albumin 2.8 L (3.8-4.9) g/dL Microbiology - Last 24 Hours (Table) 12/30/23 14:35 Blood Culture - Preliminary Blood
--- NOTE | 2024-01-02 14:59 | P.PN ---
Subjective Progress Note Date: 01/02/24 Principal diagnosis: Reason for follow-up is a urinary tract infection Patient is a 83-year-old male with a past medical history significant for hyperlipidemia osteoarthritis reflux CVA TIA atrial fibrillation prostate disorder admitted to hospital with worsening compression deformity of the L3 vertebrae in this patient who is status post L4-S1 posterior lateral fusion patient did require Mulligan catheter during this admission and has positive UA complaining of some burning concerning for symptomatic UTI. On today's evaluation that is 01/02/2024, Patient is afebrile patient is currently on 2 L nasal cannula oxygen and denies having any shortness of breath, the patient denies any chest pain or cough, the patient denies any nausea vomiting did not have any abdominal pain and no diarrhea, mention burning of the urine has slightly improved. The patient white count 4.24 creatinine 1.0 cultures so far negative Objective - Vital Signs Vital signs: Vital Signs Temp 97.6 F 01/02/24 06:46 Pulse 111 H 01/02/24 11:49 Resp 18 01/02/24 11:49 BP 112/65 01/02/24 06:46 Pulse Ox 94 L 01/02/24 08:14 FiO2 Intake & Output 01/01/24 01/02/24 01/02/24 18:59 06:59 18:59 Output Total 1300 Balance -1300 Output: Urine 1300 Other: Voiding Method Incontinent External Catheter External Catheter # Bowel Movements 1 - Exam GENERAL DESCRIPTION: An elderly male lying in bed in no distress RESPIRATORY SYSTEM: Unlabored breathing , decreased breath sounds at bases HEART: S1 S2 regular rate and rhythm , ABDOMEN: Soft , no tenderness EXTREMITIES: No edema feet - Labs CBC & Chem 7: 01/02/24 02:49 01/02/24 02:49 Labs: Abnormal Lab Results - Last 24 Hours (Table) 01/02/24 01/02/24 Range/Units 02:49 02:49 WBC 4.24 L (4.50-10.00) X 10*3/uL RBC 3.09 L (4.40-5.60) X 10*6/uL Hgb 10.0 L (13.0-17.0) g/dL Hct 32.6 L (39.6-50.0) % MCV 105.5 H (80.0-97.0) FL MCH 32.4 H (27.0-32.0) pg MCHC 30.7 L (32.0-37.0) g/dL RDW 16.1 H (11.5-14.5) % Plt Count 126 L (140-440) X 10*3/uL Immature Gran # 0.06 H (0.00-0.04) X 10*3/uL Lymphocytes # 0.63 L (0.90-5.00) X 10*3/uL BUN 33.3 H (9.0-27.0) mg/dL BUN/Creatinine Ratio 33.30 H (12.00-20.00) Ratio Calcium 8.0 L (8.7-10.3) mg/dL Total Protein 4.5 L (6.2-8.2) g/dL Albumin 2.8 L (3.8-4.9) g/dL Microbiology - Last 24 Hours (Table) 12/30/23 14:35 Blood Culture - Preliminary Blood Assessment and Plan (1) UTI (urinary tract infection) Current Visit: Yes Status: Acute Code(s): N39.0 - URINARY TRACT INFECTION, SITE NOT SPECIFIED SNOMED Code(s): 20973118 (2) Penicillin allergy Current Visit: Yes Status: Acute Code(s): Z88.0 - ALLERGY STATUS TO PENICILLIN SNOMED Code(s): 41077771 Plan: 1patient presented to hospital with worsening back pain in this patient who did have L3 compression fracture and this patient is status post L1-L4 posterior lateral fusion patient also have a history of prostate disorder with urinary outlet obstruction and did require Mulligan catheter placement during this admission and did have significantly positive UA on admission however no cultu res were done subsequent discontinuation of the Mulligan catheter repeat UA is mildly positive patient mention off-and-on burning of urine concerning for symptomatic UTI 2patient is afebrile white count is normal urine culture pending so far obtained when the patient was already on Rocephin more likely Rocephin sensitive pathogen and will continue with Rocephin while inpatient Dictation was produced using [employer] dictation software. please excuse any grammatical, word or spelling errors. Time with Patient: Less than 30
--- NOTE | 2024-01-02 14:59 | P.PN ---
Subjective Progress Note Date: 01/01/24 Principal diagnosis: Reason for follow-up is a urinary tract infection Patient is a 83-year-old male with a past medical history significant for hyperlipidemia osteoarthritis reflux CVA TIA atrial fibrillation prostate disorder admitted to hospital with worsening compression deformity of the L3 vertebrae in this patient who is status post L4-S1 posterior lateral fusion patient did require Mulligan catheter during this admission and has positive UA complaining of some burning concerning for symptomatic UTI. On today's evaluation that is 01/01/2024, the patient continues to be afebrile, the patient is on 2 L nasal oxygen patient is slightly sleepy lethargic today an d did not lose any question no vomiting or diarrhea has been reported by the nursing staff. Patient white count is 4.30, creatinine is 1.2 Objective - Vital Signs Vital signs: Vital Signs Temp 97.6 F 01/01/24 07:52 Pulse 120 H 01/01/24 12:25 Resp 16 01/01/24 07:52 BP 109/68 01/01/24 07:52 Pulse Ox 93 L 01/01/24 07:52 FiO2 Intake & Output 12/31/23 01/01/24 01/01/24 18:59 06:59 18:59 Output Total 500 800 Balance -500 -800 Weight 108.409 kg Output: Urine 500 800 Other: Voiding Method Incontinent External Catheter Incontinent # Bowel Movements 1 - Exam GENERAL DESCRIPTION: An elderly male lying in bed in no distress RESPIRATORY SYSTEM: Unlabored breathing , decreased breath sounds at bases HEART: S1 S2 regular rate and rhythm , ABDOMEN: Soft , no tenderness EXTREMITIES: No edema feet - Labs CBC & Chem 7: 01/02/24 02:49 01/02/24 02:49 Labs: Abnormal Lab Results - Last 24 Hours (Table) 12/31/23 01/01/24 01/01/24 Range/Units 16:01 03:37 03:37 WBC 4.30 L (4.50-10.00) X 10*3/uL RBC 3.10 L (4.40-5.60) X 10*6/uL Hgb 10.1 L (13.0-17.0) g/dL Hct 33.3 L (39.6-50.0) % MCV 107.4 H (80.0-97.0) FL MCH 32.6 H (27.0-32.0) pg MCHC 30.3 L (32.0-37.0) g/dL RDW 16.1 H (11.5-14.5) % Plt Count 109 L (140-440) X 10*3/uL Immature Gran # 0.06 H (0.00-0.04) X 10*3/uL Lymphocytes # 0.50 L (0.90-5.00) X 10*3/uL BUN 35.8 H (9.0-27.0) mg/dL BUN/Creatinine Ratio 29.83 H (12.00-20.00) Ratio POC Glucose (mg/dL) 124 H (70-110) mg/dL Calcium 8.0 L (8.7-10.3) mg/dL Total Protein 4.4 L (6.2-8.2) g/dL Albumin 2.8 L (3.8-4.9) g/dL Microbiology - Last 24 Hours (Table) 12/30/23 14:20 Urine Culture - Final Urine,Voided 12/30/23 14:35 Blood Culture - Preliminary Blood Assessment and Plan (1) UTI (urinary tract infection) Current Visit: Yes Status: Acute Code(s): N39.0 - URINARY TRACT INFECTION, SITE NOT SPECIFIED SNOMED Code(s): 78817631 (2) Penicillin allergy Current Visit: Yes Status: Acute Code(s): Z88.0 - ALLERGY STATUS TO PENICILLIN SNOMED Code(s): 97011858 Plan: 1patient presented to hospital with worsening back pain in this patient who did have L3 compression fracture and this patient is status post L1-L4 posterior lateral fusion patient also have a history of prostate disorder with urinary outlet obstruction and did require Mulligan catheter placement during this admission and did have significantly positive UA on admission however no cultures were done subsequent discontinuation of the Mulligan catheter repeat UA is mildly positive patient mention off-and-on burning of urine concerning for symptomatic UTI 2patient to continue with Rocephin while waiting for the culture to finalize Dictation was produced using [employer] software. please excuse any grammatical, word or spelling errors.
--- NOTE | 2024-01-02 17:14 | P.PN ---
Subjective Progress Note Date: 01/02/24 Nick Vora, is an 83 year-old male who presented to [facility] emergency room with a chief complaint of back pain and bilateral lower extremity weakness, he was evaluated at Dr. Ashton's office and was sent to emergency room for admission. He was evaluated in the emergency room vital examination on presentation revealed a temperature of 97.4 pulse 96 respiration 20 blood pressure 123/58 pulse ox 97% on 2 L nasal cannula Laboratory data revealed a white blood count of 7.3 hemoglobin 14.3 platelet count 147 sodium 136 potassium 4.9 chloride 103 CO2 28 BUN 44 creatinine 1.32 u rine analysis revealed evidence of urinary tract infection Testing in the emergency room revealed EKG done in the emergency room revealed sinus rhythm with first-degree AV block with poor R wave progression in anterior leads possible old infarction. Prior to admission patient had a CT scan of the lumbar spine which revealed compression deformity of L3 vertebral body, with moderate to severe spinal canal stenosis and mild to moderate neural foraminal stenosis, and moderate to severe canal stenosis at L4 and moderate to severe degeneration changes in the spine Patient was admitted to medical floor for further evaluation and treatment Past medical history is significant for history of atrial fibrillation maintained on Eliquis, history of hypertension, history of hyperlipidemia, history of osteoarthritis, history of benign prostatic hypertrophy, history of decreased hearing, history of recent colonoscopy with polypectomy on November 13, 2023, with pathology positive for invasive colonic adenocarcinoma, patient will need further surgical intervention on the colon when stable medically. On review of systems patient is alert and oriented x 3 in no apparent distress there is no fever or chills no headache or dizziness no chest pain no shortness of breath no cough no nausea or vomiting no abdominal pain no diarrhea no blood in the stools no burning with urination no frequency or urgency and no hematuria. On 12/28/2023 patient was seen and examined on the medical floor, he is alert and oriented x 3 in no apparent distress, there is no fever or chills no headache or dizziness no chest pain no shortness of breath no cough no nausea or vomiting no abdominal pain no diarrhea no blood in the stools no burning with urination no frequency or urgency and no hematuria. Patient is having significantly low blood pressure last night blood pressure was 80/43, he was started on IV fluid, he was also started on midodrine 5 mg p.o. 3 times daily, consultation for cardiology was initiated, otherwise patient is doing well, will continue to follow closely. 12/29/2023 patient is alert and oriented 3 currently resting comfortably in bed blood pressure has improved awaiting cardiology inputpatient denies chest pain or shortness breath. Patient denies nausea vomiting or diarrhea. Patient denies any urinary burning or frequency. Her vital signs temp 97.9, heart rate 62, respiratory rate 16, blood pressure 102/60 with pulse is 95% on 4 L On 12/30/2023 patient was seen and examined on the medical floor, he is alert and oriented x 3 in no apparent distress, there is no fever or chills no headache or dizziness no chest pain no shortness of breath no cough no nausea or vomiting no abdominal pain no diarrhea and no urinary symptoms. Patient has significant hypotension, he was evaluated yesterday by cardiology Dr. Doyle, at that time his dose of amiodarone was decreased to 200 mg once daily, and metoprolol was discontinued, today patient continues to be hypotensive, he is currently in atrial fibrillation with a heart rate of 117, Dr. Eller was contacted earlier by the nurse, and his cardiac medications are being readjusted again, blood culture urine culture and chest x-ray were ordered to rule out any infectious process causing hypotension. Will continue to follow closely. On 12/31/2023 patient is alert and oriented x 3. Vitals improved today cardiac meds adjusted per cardiology. Chest x-ray completed showing no significant change no evidence for focal airspace consolidation. Patient remains on IV Rocephin. Current vital signs temp 97.4, heart rate 86, respiratory rate 18, blood pressure 103/62 with a pulse ox of 90% on 6 L. Patient denies chest pain or shortness of breath. Patient denies nausea vomiting or diarrhea. Patient denies any urinary burning or frequency On 01/01/2024 patient is alert and oriented resting in bed. Venous Doppler completed showing negative for DVT. Per pulmonary suspicion for pulmonary embolism is extremely low. Recommendations to continue incentive spirometer bronchodilators. Current vital signs temp 97.6, heart rate 89, respiratory rate 16, blood pressure 109/68 with a pulse ox of 93% on 6 L. Patient denies chest pain or shortness of breath. Patient denies nausea vomiting or diarrhea. Patient denies any urinary burning or frequency On 01/02/2024 patient was seen and examined on the medical floor he is alert and oriented x 3 in no apparent distress, he is complaining of generalized weakness otherwise he denies any complaints his vital exam reveals a temperature of 97.2 heart rate 117 respiration rate 19 blood pressure 119/66 pulse ox 93% on 2 L nasal cannula, white blood count is 4.24 hemoglobin 10.0 platelet count 126 BUN 33 creatinine 1.2 input from infectious disease, general surgery, pulmonary cr itical care, and cardiology reviewed Objective - Vital Signs Vital signs: Vital Signs Temp 97.6 F 01/02/24 06:46 Pulse 104 H 01/02/24 08:26 Resp 18 01/02/24 06:46 BP 112/65 01/02/24 06:46 Pulse Ox 94 L 01/02/24 08:14 FiO2 Intake & Output 01/01/24 01/02/24 01/02/24 18:59 06:59 18:59 Output Total 1300 Balance -1300 Output: Urine 1300 Other: Voiding Method Incontinent External Catheter # Bowel Movements 1 - Exam In general patient is alert and oriented x 3 in no distress HEENT head normocephalic and atraumatic Neck is supple no JVD no goiter no lymphadenopathy no carotid bruit Chest examination is clear to auscultation no crackles no wheezing Cardiac exam reveals regular heart sounds S1 and S2 no gallops no murmurs Abdomen is soft nontender no organomegaly with normal bowel sounds Extremity exam reveals no edema no cyanosis or clubbing Neurological examination reveals no gross focal deficits - Labs CBC & Chem 7: 01/02/24 02:49 01/02/24 02:49 Labs: Abnormal Lab Results - Last 24 Hours (Table) 01/02/24 01/02/24 Range/Units 02:49 02:49 WBC 4.24 L (4.50-10.00) X 10*3/uL RBC 3.09 L (4.40-5.60) X 10*6/uL Hgb 10.0 L (13.0-17.0) g/dL Hct 32.6 L (39.6-50.0) % MCV 105.5 H (80.0-97.0) FL MCH 32.4 H (27.0-32.0) pg MCHC 30.7 L (32.0-37.0) g/dL RDW 16.1 H (11.5-14.5) % Plt Count 126 L (140-440) X 10*3/uL Immature Gran # 0.06 H (0.00-0.04) X 10*3/uL Lymphocytes # 0.63 L (0.90-5.00) X 10*3/uL BUN 33.3 H (9.0-27.0) mg/dL BUN/Creatinine Ratio 33.30 H (12.00-20.00) Ratio Calcium 8.0 L (8.7-10.3) mg/dL Total Protein 4.5 L (6.2-8.2) g/dL Albumin 2.8 L (3.8-4.9) g/dL Microbiology - Last 24 Hours (Table) 12/30/23 14:35 Blood Culture - Preliminary Blood Assessment and Plan Plan: Low back pain with bilateral lower extremity weakness. Status post lumbar fusion Evidence of urinary tract infection Underlying history of hypertension Underlying history of hyperlipidemia Underlying history of paroxysmal atrial fibrillation Underlying history of osteoarthritis Underlying history of benign prostatic hypertrophy Underlying history of decreased hearing Underlying history of invasive colonic adenocarcinoma patient will need surgical intervention in the near future At this time patient was seen and examined Home medications reviewed and reordered At this time will hold Eliquis in anticipation for surgical intervention DVT prophylaxis with SCD stockings Patient was started on IV ceftriaxone for urinary tract infection Patient is at increased surgical risk due to his multiple medical problems, however there is no medical contraindication for surgery Will continue to follow closely
[2024-01-03 08:29] VITALS: BP 118/65; RESP 18; TEMP 98.2
[2024-01-03 08:57] LABS: ALT 13 U/L (10-49); AST 22 U/L (14-35); Albumin 2.9 g/dL (3.8-4.9); Albumin/Globulin Ratio 1.93 Ratio (1.60-3.17); Alkaline Phosphatase 118 U/L (41-126); Blood Urea Nitrogen 30.5 mg/dL (9.0-27.0); Calcium 8.1 mg/dL (8.7-10.3); Carbon Dioxide 26.2 mmol/L (21.6-31.8); Chloride 102 mmol/L (96-109); Globulin 1.5 g/dL (1.6-3.3); Glucose 95 mg/dL (70-110); Potassium 4.8 mmol/L (3.5-5.5); Sodium 136 mmol/L (135-145); Total Bilirubin 0.3 mg/dL (0.3-1.2); Total Protein 4.4 g/dL (6.2-8.2)
--- NOTE | 2024-01-03 09:02 | P.DS ---
Providers Date of admission: 12/25/23 15:14 Expected date of discharge: 01/03/24 Attending physician: Juan C Beltran Consults: 12/25/23 15:12 Consult Physician Urgent Consulting Provider: Juan C Beltrna Consult Reason/Comments: recent lumbar Do you want consulting provider notified?: Yes 12/27/23 18:53 Consult Physician Routine Consulting Provider: Marcelino Helms Consult Reason/Comments: low blood pressure Do you want consulting provider notified?: Yes 12/30/23 16:47 Consult Physician Routine Consulting Provider: Carl Alberts Consult Reason/Comments: UTI Do you want consulting provider notified?: Yes 12/31/23 09:32 Consult Physician Routine Consulting Provider: Davey Schmitt Consult Reason/Comments: decreased o2 Do you want consulting provider notified?: Yes 12/31/23 13:33 Consult Physician Routine Consulting Provider: Flako Nunez Consult Reason/Comments: eval for inpt rehab Do you want consulting provider notified?: Yes Primary care physician: Juan C Beltran [facility] Course: Discharge diagnosis Low back pain with bilateral lower extremity weakness. Status post lumbar fusion Evidence of urinary tract infection Underlying history of hypertension Underlying history of hyperlipidemia Underlying history of paroxysmal atrial fibrillation Underlying history of osteoarthritis Underlying history of benign prostatic hypertrophy Underlying history of decreased hearing Underlying history of invasive colonic adenocarcinoma patient will need surgical intervention in the near future Hospital course Nick Vora, is an 83 year-old male who presented to [facility] emergency room with a chief complaint of back pain and bilateral lower extremity weakness, he was evaluated at Dr. Ashton's office and was sent to emergency room for admission. He was evaluated in the emergency room vital examination on presentation revealed a temperature of 97.4 pulse 96 respiration 20 blood pressure 123/58 pulse ox 97% on 2 L nasal cannula Laboratory data revealed a white blood count of 7.3 hemoglobin 14.3 platelet count 147 sodium 136 potassium 4.9 chloride 103 CO2 28 BUN 44 creatinine 1.32 urine analysis revealed evidence of urinary tract infection Testing in the emergency room revealed EKG done in the emergency room revealed sinus rhythm with first-degree AV block with poor R wave progression in anterior leads possible old infarction. Prior to admission patient had a CT scan of the lumbar spine which revealed compression deformity of L3 vertebral body, with moderate to severe spinal canal stenosis and mild to moderate neural foraminal stenosis, and moderate to severe canal stenosis at L4 and moderate to severe degeneration changes in the spine Patient was admitted to medical floor for further evaluation and treatment Past medical history is significant for history of atrial fibrillation maintained on Eliquis, history of hypertension, history of hyperlipidemia, history of osteoarthritis, history of benign prostatic hypertrophy, history of decreased hearing, history of recent colonoscopy with polypectomy on November 13, 2023, with pathology positive for invasive colonic adenocarcinoma, patient will need further surgical intervention on the colon when stable medically. On review of systems patient is alert and oriented x 3 in no apparent distress there is no fever or chills no headache or dizziness no chest pain no shortness of breath no cough no nausea or vomiting no abdominal pain no diarrhea no blood in the stools no burning with urination no frequency or urgency and no hematuria. On 12/28/2023 patient was seen and examined on the medical floor, he is alert and oriented x 3 in no apparent distress, there is no fever or chills no headache or dizziness no chest pain no shortness of breath no cough no nausea or vomiting no abdominal pain no diarrhea no blood in the stools no burning with urination no frequency or urgency and no hematuria. Patient is having significantly low blood pressure last night blood pressure was 80/43, he was started on IV fluid, he was also started on midodrine 5 mg p.o. 3 times daily, consultation for cardiology was initiated, otherwise patient is doing well, will continue to follow closely. 12/29/2023 patient is alert and oriented 3 currently resting comfortably in bed blood pressure has improved awaiting cardiology inputpatient denies chest pain or shortness breath. Patient denies nausea vomiting or diarrhea. Patient denies any urinary burning or frequency. Her vital signs temp 97.9, heart rate 62, respiratory rate 16, blood pressure 102/60 with pulse is 95% on 4 L On 12/30/2023 patient was seen and examined on the medical floor, he is alert and oriented x 3 in no apparent distress, there is no fever or chills no headache or dizziness no chest pain no shortness of breath no cough no nausea or vomiting no abdominal pain no diarrhea and no urinary symptoms. Patient has significant hypotension, he was evaluated yesterday by cardiology Dr. Doyle, at that time his dose of amiodarone was decreased to 200 mg once daily, and metoprolol was discontinued, today patient continues to be hypotensive, he is currently in atrial fibrillation with a heart rate of 117, Dr. Eller was contacted earlier by the nurse, and his cardiac medications are being readjusted again, blood culture urine culture and chest x-ray were ordered to rule out any infectious process causing hypotension. Will continue to follow closely. On 12/31/2023 patient is alert and oriented x 3. Vitals improved today cardiac meds adjusted per cardiology. Chest x-ray completed showing no significant change no evidence for focal airspace consolidation. Patient remains on IV Rocephin. Current vital signs temp 97.4, heart rate 86, respiratory rate 18, blood pressure 103/62 with a pulse ox of 90% on 6 L. Patient denies chest pain or shortness of breath. Patient denies nausea vomiting or diarrhea. Patient denies any urinary burning or frequency On 01/01/2024 patient is alert and oriented resting in bed. Venous Doppler completed showing negative for DVT. Per pulmonary suspicion for pulmonary embolism is extremely low. Recommendations to continue incentive spirometer bronchodilators. Current vital signs temp 97.6, heart rate 89, respiratory rate 16, blood pressure 109/68 with a pulse ox of 93% on 6 L. Patient denies chest pain or shortness of breath. Patient denies nausea vomiting or diarrhea. Patient denies any urinary burning or frequency On 01/02/2024 patient was seen and examined on the medical floor he is alert and oriented x 3 in no apparent distress, he is complaining of generalized weakness otherwise he denies any complaints his vital exam reveals a temperature of 97.2 heart rate 117 respiration rate 19 blood pressure 119/66 pulse ox 93% on 2 L nasal cannula, white blood count is 4.24 hemoglobin 10.0 platelet count 126 BUN 33 creatinine 1.2 input from infectious disease, general surgery, pulmonary critical care, and cardiology reviewed On 01/03/2024 patient is alert and oriented x 3. Patient will be DC'd to ECF facility today per ID patient should be discharged on Ceftin for 3 days patient to follow-up with cardiology in 2 weeks will DC patient on current cardiac meds. Patient to also follow-up with surgical services for rescheduling of surgery for adenocarcinoma of the colon. At this time patient denies chest pain or shortness of breath. Patient denies nausea vomiting or diarrhea. Patient denies any urinary burning or frequency Patient Condition at Discharge: Stable Plan - Discharge Summary New Discharge Prescriptions: New Digoxin [Lanoxin] 125 mcg PO DAILY tab Midodrine [ProAmatine] 5 mg PO AC-TID PRN tab PRN Reason: Blood Pressure - Low Acetaminophen Tab [Tylenol] 650 mg PO Q6HR tab cefuroxime axetiL [Ceftin] 500 mg PO BID 3 Days #6 tab Ipratropium-Albuterol Nebulize [Duoneb 0.5 mg-3 mg/3 ml Soln] 3 ml INHALATION RT-QID each Ipratropium-Albuterol Nebulize [Duoneb 0.5 mg-3 mg/3 ml Soln] 3 ml INHALATION RT-Q2H PRN each PRN Reason: Shortness Of Breath Or Wheezing Continue Sertraline HCl [Zoloft] 200 mg PO DAILY Amiodarone [Cordarone] 200 mg PO BID tab guaiFENesin SYRUP 100MG/5ML [Robitussin] 200 mg PO Q4H PRN PRN Reason: Congestion Docusate [Colace] 100 mg PO BID cap Apixaban [Eliquis] 2.5 mg PO BID #0 tab Dapagliflozin Propanediol [Farxiga] 10 mg PO DAILY tab Temazepam [Restoril] 7.5 mg PO HS Discontinued Acetaminophen Tab [Tylenol] 1,000 mg PO HS Metoprolol Tartrate [Lopressor] 25 mg PO BID Sacubitril/Valsartan [Entresto 24 mg-26 mg Tablet] 1 tab PO BID Furosemide [Lasix] 20 mg PO DAILY tab Discharge Medication List Sertraline HCl [Zoloft] 200 mg PO DAILY 10/30/13 [History] Amiodarone [Cordarone] 200 mg PO BID tab 12/05/23 [Rx] Apixaban [Eliquis] 2.5 mg PO BID #0 tab 12/05/23 [Rx] Dapagliflozin Propanediol [Farxiga] 10 mg PO DAILY tab 12/05/23 [Rx] Docusate [Colace] 100 mg PO BID cap 12/05/23 [Rx] Temazepam [Restoril] 7.5 mg PO HS 12/25/23 [History] guaiFENesin SYRUP 100MG/5ML [Robitussin] 200 mg PO Q4H PRN 12/25/23 [History] Acetaminophen Tab [Tylenol] 650 mg PO Q6HR tab 01/03/24 [Rx] Digoxin [Lanoxin] 125 mcg PO DAILY tab 01/03/24 [Rx] Ipratropium-Albuterol Nebulize [Duoneb 0.5 mg-3 mg/3 ml Soln] 3 ml INHALATION RT-Q2H PRN each 01/03/24 [Rx] Ipratropium-Albuterol Nebulize [Duoneb 0.5 mg-3 mg/3 ml Soln] 3 ml INHALATION RT-QID each 01/03/24 [Rx] Midodrine [ProAmatine] 5 mg PO AC-TID PRN tab 01/03/24 [Rx] cefuroxime axetiL [Ceftin] 500 mg PO BID 3 Days #6 tab 01/03/24 [Rx] Follow up Appointment(s)/Referral(s): Juan C Beltran MD [Primary Care Provider] - 1-2 days Kentrell Montes DO [STAFF PHYSICIAN] - 2 Weeks Activity/Diet/Wound Care/Special Instructions: patient to follow up with surgical services for rescheduling of surgery for adenocarcinoma Discharge Disposition: TRANSFER TO SNF/ECF
[2024-01-03 09:06] LABS: Basophils # (A) 0.04 X 10*3/uL (0.00-0.10); Basophils % (A) 0.8 %; Eosinophils # (A) 0.15 X 10*3/uL (0.04-0.35); Eosinophils % (A) 3.1 %; HCT 32.5 % (39.6-50.0); HGB 10.1 g/dL (13.0-17.0); Lymphocytes # (A) 0.96 X 10*3/uL (0.90-5.00); Lymphocytes % (A) 19.6 %; MCH 32.1 pg (27.0-32.0); MCHC 31.1 g/dL (32.0-37.0); MCV 103.2 FL (80.0-97.0); Mean Platelet Volume 10.6 FL (9.5-12.2); Monocytes # (A) 0.47 X 10*3/uL (0.20-1.00); Monocytes % (A) 9.6 %; NRBC Per 100 WBC 0 X 10*3/uL (0.00-0.01); Neutrophils # (A) 3.18 X 10*3/uL (1.80-7.70); Neutrophils % (A) 64.9 %; Platelet Count 150 X 10*3/uL (140-440); RBC 3.15 X 10*6/uL (4.40-5.60); RDW 16.1 % (11.5-14.5)
[2024-01-03 11:49] VITALS: PULSE 102
--- NOTE | 2024-01-03 13:40 | P.PN ---
Subjective Progress Note Date: 01/03/24 This is an 83-year-old male patient with a known history of atrial fibrillation, CVA/TIA, hearing disorder, hyperlipidemia, anxiety, former smoker who presented here to the hospital back on December 25, [address] Ashton's office. The patient had taken a fall in October 2023 and the MRI showed fracture of his back. He was at [facility] doing rehabilitation without much improvement. He is still unable to ambulate and has lower extremity weakness. On December 27, 2023 he did undergo surgery including open treatment of L2-3 for hyperextension fracture. L1-L4 posterior lateral fusion. We are consulted today due to his increasing oxygen requirements currently on 6 L high flow nasal cannula. Chest x-ray reveals evidence of atelectasis in the bilateral bases. No focal airspace consolidation. White count 6.0. Hemoglobin 9.9. Platelets 89,000. D-dimer 0.66. Sodium 134. Potassium 4.6. Bicarb 24. BUN 36. Creatinine 1.1. Glucose 101. He is currently on ceftriaxone. Anticoagulated with Eliquis. Adequate pain control. He is seen today in consultation on the regular medical floor. He is currently up in a chair at the bedside. Awake and alert in no acute distress. He has a loose nonproductive cough. No fever or chills. The patient is seen today January 01, 2024 in follow-up on the regular medical floor. Currently resting in bed. Awake and alert in no acute distress. He is down to 4 L high flow nasal cannula with O2 saturations in the 90s. Dopplers of the lower extremities revealed no evidence of DVT. Blood cultures revealed no growth to date. Urine culture revealed no growth. White count 4.3. Hemoglobin 10.1. Platelets 109. Sodium 135. Potassium 4.8. Bicarb 24. BUN 36. Creatinine 1.2. Glucose 99. He remains on DuoNeb inhalations. Anticoagulated with Eliquis. He remains on ceftriaxone. The patient is seen today January 02, 2024 in follow-up on the regular medical floor. He is awake and alert in no acute distress. Sitting up in a chair at the bedside. Maintaining O2 saturations in the 90s on 2 L/min per nasal cannula. No worsening shortness of breath, cough or congestion. Blood and urine cultures revealed no growth. White count 4.2. Hemoglobin 10.0. Platelets 126. Sodium 136. Potassium 4.7. Bicarb 25. BUN 33. Creatinine 1.0. Glucose 104. He remains on bronchodilators. Anticoagulated with Eliquis. Antibiotics in the form of ceftriaxone. Procalcitonin was 0.19. The patient is seen today January 03, 2024 in follow-up on the regular medical floor. He is awake and alert in no acute distress. Resting comfortably in bed. Denies any worsening shortness of breath, cough or congestion. He is mainta ining good O2 saturations in the 90s on 2 L/min per nasal cannula. Blood and urine cultures revealed no growth. White count 4.9. Hemoglobin 10.1. Platelets 150. Sodium 136. Potassium 4.8. Bicarb 26. BUN 31. Creatinine 1.0. He remains on bronchodilators. Anticoagulated with Eliquis. Antibiotics in the form of ceftriaxone. Objective - Vital Signs Vital signs: Vital Signs Temp 98.2 F 01/03/24 07:25 Pulse 102 H 01/03/24 11:48 Resp 18 01/03/24 07:25 BP 117/67 01/03/24 08:25 Pulse Ox 90 L 01/03/24 08:25 FiO2 Intake & Output 01/02/24 01/03/24 01/03/24 18:59 06:59 18:59 Output Total 1750 400 Balance -1750 -400 Output: Urine 1750 400 Other: Voiding Method External Catheter External Catheter External Catheter # Voids 2 # Bowel Movements 1 - Exam GENERAL EXAM: Alert, 83-year-old male, on 2 L nasal cannula, resting in bed, comfortable in no apparent distress. HEAD: Normocephalic. EYES: Normal reaction of pupils, equal size. NOSE: Clear with pink turbinates. THROAT: No erythema or exudates. NECK: No masses, no JVD. CHEST: No chest wall deformity. LUNGS: Equal air entry with no crackles, wheeze, rhonchi or dullness. CVS: S1 and S2 normal with no audible murmur, regular rhythm. ABDOMEN: No hepatosplenomegaly, normal bowel sounds, no guarding or rigidity. SPINE: Surgical dressing dry and intact. SKIN: No rashes CENTRAL NERVOUS SYSTEM: No focal deficits, tone is normal in all 4 extremities. EXTREMITIES: There is no peripheral edema. No clubbing, no cyanosis. Peripheral pulses are intact. - Labs CBC & Chem 7: 01/03/24 03:15 01/03/24 03:15 Labs: Abnormal Lab Results - Last 24 Hours (Table) 01/03/24 01/03/24 Range/Units 03:15 03:15 RBC 3.15 L (4.40-5.60) X 10*6/uL Hgb 10.1 L (13.0-17.0) g/dL Hct 32.5 L (39.6-50.0) % MCV 103.2 H (80.0-97.0) FL MCH 32.1 H (27.0-32.0) pg MCHC 31.1 L (32.0-37.0) g/dL RDW 16.1 H (11.5-14.5) % Immature Gran # 0.10 H (0.00-0.04) X 10*3/uL BUN 30.5 H (9.0-27.0) mg/dL BUN/Creatinine Ratio 30.50 H (12.00-20.00) Ratio Calcium 8.1 L (8.7-10.3) mg/dL Total Protein 4.4 L (6.2-8.2) g/dL Albumin 2.9 L (3.8-4.9) g/dL Globulin 1.5 L (1.6-3.3) g/dL Microbiology - Last 24 Hours (Table) 12/30/23 14:35 Blood Culture - Preliminary Blood Assessment and Plan Assessment: Acute hypoxic respiratory failure secondary to atelectatic changes in the lung bases as an expected outcome of surgery. Down to 2 L nasal cannula Recent fall with fracture to the spine, status post open treatment L2-3 for hyperextension fracture, L1-L4 posterior lateral fusion. Postoperative day #6 Atrial fibrillation anticoagulated with Eliquis Cardiomyopathy with an ejection fraction 25 to 30% Moderate to severe pulmonary hypertension History of mild coronary artery disease History of colon cancer, to be scheduled for colectomy once recovered History of CVA/TIA History of hearing disorder Hyperlipidemia Former smoker Poor functional performance based on the above-mentioned multiple comorbidities Plan: The patient was seen and evaluated Labs and medications reviewed Increase the use of the incentive spirometer Continue DuoNeb inhalations 4 times daily and as needed Anticoagulated with Eliquis Plan is for [facility] today I have personally seen and examined the patient, performed the documentation and the assessment and plan as written. Number of minutes spent on the visit: 10 Dictation was produced using [employer] dictation software. Please excuse any grammatical, word or spelling errors.
--- NOTE | 2024-01-03 14:41 | P.PN ---
Subjective Progress Note Date: 01/03/24 Principal diagnosis: Reason for follow-up is a urinary tract infection Patient is a 83-year-old male with a past medical history significant for hyperlipidemia osteoarthritis reflux CVA TIA atrial fibrillation prostate disorder admitted to hospital with worsening compression deformity of the L3 vertebrae in this patient who is status post L4-S1 posterior lateral fusion patient did require Mulligan catheter during this admission and has positive UA complaining of some burning concerning for symptomatic UTI. On today's evaluation that is 01/03/2024, patient has been afebrile, patient is breathing comfortably and is currently on 2 L nasal cannula oxygen, patient lisa es having any significant cough no chest pain, patient denies nausea vomiting or diarrhea and no abdominal pain. Patient white count is 4.90, creatinine is 1.0 Objective - Vital Signs Vital signs: Vital Signs Temp 98.2 F 01/03/24 07:25 Pulse 118 H 01/03/24 08:25 Resp 18 01/03/24 07:25 BP 117/67 01/03/24 08:25 Pulse Ox 90 L 01/03/24 08:25 FiO2 Intake & Output 01/02/24 01/03/24 01/03/24 18:59 06:59 18:59 Output Total 1750 400 Balance -1750 -400 Output: Urine 1750 400 Other: Voiding Method External Catheter External Catheter # Voids 2 # Bowel Movements 1 - Exam GENERAL DESCRIPTION: An elderly male lying in bed in no distress RESPIRATORY SYSTEM: Unlabored breathing , decreased breath sounds at bases HEART: S1 S2 regular rate and rhythm , ABDOMEN: Soft , no tenderness EXTREMITIES: No edema feet - Labs CBC & Chem 7: 01/03/24 03:15 01/03/24 03:15 Labs: Abnormal Lab Results - Last 24 Hours (Table) 01/03/24 01/03/24 Range/Units 03:15 03:15 RBC 3.15 L (4.40-5.60) X 10*6/uL Hgb 10.1 L (13.0-17.0) g/dL Hct 32.5 L (39.6-50.0) % MCV 103.2 H (80.0-97.0) FL MCH 32.1 H (27.0-32.0) pg MCHC 31.1 L (32.0-37.0) g/dL RDW 16.1 H (11.5-14.5) % Immature Gran # 0.10 H (0.00-0.04) X 10*3/uL BUN 30.5 H (9.0-27.0) mg/dL BUN/Creatinine Ratio 30.50 H (12.00-20.00) Ratio Calcium 8.1 L (8.7-10.3) mg/dL Total Protein 4.4 L (6.2-8.2) g/dL Albumin 2.9 L (3.8-4.9) g/dL Globulin 1.5 L (1.6-3.3) g/dL Microbiology - Last 24 Hours (Table) 12/30/23 14:35 Blood Culture - Preliminary Blood Assessment and Plan (1) UTI (urinary tract infection) Status: Acute Code(s): N39.0 - URINARY TRACT INFECTION, SITE NOT SPECIFIED SNOMED Code(s): 51536329 (2) Penicillin allergy Status: Acute Code(s): Z88.0 - ALLERGY STATUS TO PENICILLIN SNOMED Code(s): 11167478 Plan: 1patient presented to hospital with worsening back pain in this patient who did have L3 compression fracture and this patient is status post L1-L4 posterior lateral fusion patient also have a history of prostate disorder with urinary outlet obstruction and did require Mulligan catheter placement during this admission and did have significantly positive UA on admission however no cultures were done subsequent discontinuation of the Mulligan catheter repeat UA is mildly positive patient mention off-and-on burning of urine concerning for symptomatic UTI 2patient is afebrile white count is normal, keeping in mind overall improvement on Rocephin we will consider 3-day course of Ceftin on discharge discussed with [facility] DELIVERY for admitting team Dictation was produced using [employer] dictation software. please excuse any grammatical, word or spelling errors. Time with Patient: Less than 30
--- NOTE | 2024-01-06 13:43 | CDI ---
Documentation Clarification Form Date: 01/06/2024 01:31:29 PM From: Emelina Monte Phone: Admit Date: 12/25/2023 03:14:00 PM Patient Name: Nick Vora Visit Number: [id number] Discharge Date: 01/03/2024 02:14:00 PM ATTENTION: The Clinical Documentation Specialists (CDI) and [facility] Coding Staff appreciate your assistance in clarifying documentation. Please respond to the clarification below the line at the bottom and electronically sign. The CDI & [facility] Coding staff will review the response and follow-up if needed. Please note: Queries are made part of the Legal Health Record. If you have any questions, please contact the author of this message via ITS. Doctor/Provider: Juan C Beltran Mild- Mod Malnutrition is documented per Consult 12/26. Additional clarification regarding the severity of malnutrition is requested. History/Risk Factors: L3 Fx, PHTN, CM, AHRF,UTI, HTN, HLD, PAF, OA, BPH, [place], colon Cx, former smoker Clinical Indicators: Current BMI: 29.9 Recentweightloss of more than 100 lbs.; Normal bulk and tone of all muscleswithoutatrophy Weight: 108.409 kg Height: 63 Treatment: monitored; scheduled forcolectomyonce recovered Please clarify the severity of malnutrition, if known: [ ] Mild Protein-Calorie Malnutrition [ xxx ] Moderate Protein-Calorie Malnutrition [ ] Other condition, please specify [ ] Unable to Determine (Template Last Revised: August 2022) MTDD
--- NOTE | 2024-01-06 13:51 | CDI ---
Documentation Clarification Form Date: 01/06/2024 01:43:39 PM From: Emelina Monte Phone: Admit Date: 12/25/2023 03:14:00 PM Patient Name: Nick Vora Visit Number: [id number] Discharge Date: 01/03/2024 02:14:00 PM ATTENTION: The Clinical Documentation Specialists (CDI) and [facility] Coding Staff appreciate your assistance in clarifying documentation. Please respond to the clarification below the line at the bottom and electronically sign. The CDI & [facility] Coding staff will review the response and follow-up if needed. Please note: Queries are made part of the Legal Health Record. If you have any questions, please contact the author of this message via ITS. Doctor/Provider: Juan C Beltran Unspecified CKD is documented Consult Note 12/26. Additional clarification regarding the stage of CKD is requested. History/Risk Factors: L3 Fx, PHTN, CM, AHRF, UTI, HTN, HLD, PAF, OA, BPH, [place], colon Cx, PCM, former smoker Baselinecreatinine1.2 up to 1.68 Clinical Indicators: BUN: 12/24 44 12/26 39.5 12/28 40 12/29 36.5 CR: 12/24 1.32 12/26 1.6 12/28 1.44 AfAm 58 NonAf 50 Egfr: 12/27 43 12/28 55 12/29 46 Treatment: monitored Please clarify the stage of the CKD, if known: [ ] CKD Stage 2 [ xxxx] CKD Stage 3a [ ] CKD Stage 3b [ ] Other, please specify [ ] Unable to determine Reference: National Kid[employer] Stage 1 eGFR = 90 and kidney damage for =3 months Stage 2 eGFR 60-89 and kidney damage for =3 months Stage 3a eGFR 45-59 and kidney damage for =3 months Stage 3b eGFR 30-44 and kidney damage for =3 months Stage 4 eGFR 15-29 r and kidney damage for =3 months Stage 5 eGFR <15 and kidney damage for =3 months (Template Last revised: February 2023) MTDD
== END 2024-01-03 14:14 | DRG 426 ==
LOC: OR 14:13 → 4SSUR 15:14
PROVIDERS: ADMIT Internal Medicine; ATTEND Internal Medicine
PROC: 0SG1071 Fusion of 2 or more Lumbar Vertebral Joints with Autologous Tissue Substitute, Posterior Approach, Posterior Column, Open Approach (ICD-10-PCS; 2023-12-27)
PROC: 0SG30AJ Fusion of Lumbosacral Joint with Interbody Fusion Device, Posterior Approach, Anterior Column, Open Approach (ICD-10-PCS; 2023-12-27)
PROC: 0SG3071 Fusion of Lumbosacral Joint with Autologous Tissue Substitute, Posterior Approach, Posterior Column, Open Approach (ICD-10-PCS; 2023-12-27)
PROC: 0QS00ZZ Reposition Lumbar Vertebra, Open Approach (ICD-10-PCS; 2023-12-27)
PROC: 8E0WXBZ Computer Assisted Procedure of Trunk Region (ICD-10-PCS; 2023-12-27)
PROC: 0SG10AJ Fusion of 2 or more Lumbar Vertebral Joints with Interbody Fusion Device, Posterior Approach, Anterior Column, Open Approach (ICD-10-PCS; principal; 2023-12-27 09:45)
DX: S32.032A Unstable burst fracture of third lumbar vertebra, initial encounter for closed fracture (principal); J96.01 Acute respiratory failure with hypoxia; D61.818 Other pancytopenia; G82.20 Paraplegia, unspecified; D62 Acute posthemorrhagic anemia; N17.9 Acute kidney failure, unspecified; I42.8 Other cardiomyopathies; C18.0 Malignant neoplasm of cecum; N39.0 Urinary tract infection, site not specified; J98.11 Atelectasis; E44.0 Moderate protein-calorie malnutrition; I27.20 Pulmonary hypertension, unspecified; E88.09 Other disorders of plasma-protein metabolism, not elsewhere classified; J44.9 Chronic obstructive pulmonary disease, unspecified; E11.22 Type 2 diabetes mellitus with diabetic chronic kidney disease; I48.0 Paroxysmal atrial fibrillation; N18.31 Chronic kidney disease, stage 3a; I12.9 Hypertensive chronic kidney disease with stage 1 through stage 4 chronic kidney disease, or unspecified chronic kidney disease; I07.1 Rheumatic tricuspid insufficiency; K76.9 Liver disease, unspecified; M43.26 Fusion of spine, lumbar region; M48.061 Spinal stenosis, lumbar region without neurogenic claudication; M47.816 Spondylosis without myelopathy or radiculopathy, lumbar region; N40.0 Benign prostatic hyperplasia without lower urinary tract symptoms; I95.9 Hypotension, unspecified; I25.10 Atherosclerotic heart disease of native coronary artery without angina pectoris; E78.5 Hyperlipidemia, unspecified; H91.90 Unspecified hearing loss, unspecified ear; M19.90 Unspecified osteoarthritis, unspecified site; K21.9 Gastro-esophageal reflux disease without esophagitis; R53.81 Other malaise; M50.30 Other cervical disc degeneration, unspecified cervical region; F41.9 Anxiety disorder, unspecified; Z96.653 Presence of artificial knee joint, bilateral; Z91.81 History of falling; Z79.01 Long term (current) use of anticoagulants; Z79.84 Long term (current) use of oral hypoglycemic drugs; Z79.899 Other long term (current) drug therapy; Z87.891 Personal history of nicotine dependence; Z86.73 Personal history of transient ischemic attack (TIA), and cerebral infarction without residual deficits; Z99.3 Dependence on wheelchair; Z98.1 Arthrodesis status; Z88.0 Allergy status to penicillin; Z87.19 Personal history of other diseases of the digestive system; Z68.29 Body mass index [BMI] 29.0-29.9, adult
CPT/HCPCS: 71045; 72100; 72131; 80048; 80053; 81001; 83735; 83880; 84145; 85025; 85027; 85379; 85610; 85730; 86850; 86900; 86901; 87040; 87086; 93005; 93970; 94640; 94760; 99285

== ENCOUNTER 2024-01-11 11:31 | Inpatient (IN) | payer MEDICARE ==
[2024-01-11] MEDS: SODIUM CHLORIDE 0.9% 500 ML 500 ML IV STA (12:23)
[2024-01-11 12:44] LABS: Basophils % (A) 0 %; Eosinophils # (A) 0.2 k/uL (0-0.7); Eosinophils % (A) 3 %; HCT 36.8 % (39.0-53.0); HGB 11.6 gm/dL (13.0-17.5); Hypochromasia Marked; Lymphocytes # (A) 0.5 k/uL (1.0-4.8); Lymphocytes % (A) 6 %; MCH 32.5 pg (25.0-35.0); MCHC 31.5 g/dL (31.0-37.0); MCV 103.3 fL (80.0-100.0); Macrocytosis Slight; Mean Platelet Volume 8.5; Monocytes # (A) 0.4 k/uL (0-1.0); Monocytes % (A) 4 %; Neutrophils # (A) 7.7 k/uL (1.3-7.7); Neutrophils % (A) 87 %; Platelet Count 138 k/uL (150-450); RBC 3.56 m/uL (4.30-5.90); RDW 14.5 % (11.5-15.5); WBC 8.9 k/uL (3.8-10.6)
[2024-01-11 12:57] LABS: Partial Thromboplastin Time 23.4 sec (22.0-30.0)
[2024-01-11 12:58] LABS: ALT 13 U/L (4-49); AST 30 U/L (17-59); African American GFR (CKD) 84 (>60 ml/min/1.73 sqM); Albumin 2.8 g/dL (3.5-5.0); Alkaline Phosphatase 128 U/L (38-126); Anion Gap 1 mmol/L; Blood Urea Nitrogen 29 mg/dL (9-20); Carbon Dioxide 34 mmol/L (22-30); Chloride 100 mmol/L (98-107); Glucose 101 mg/dL (74-99); Magnesium 2.2 mg/dL (1.6-2.3); Non-African American GFR(CKD) 73 (>60 ml/min/1.73 sqM); Sodium 135 mmol/L (137-145); Total Bilirubin 0.8 mg/dL (0.2-1.3)
--- NOTE | 2024-01-11 13:34 | XR ---
EXAMINATION TYPE: XR chest 2V DATE OF EXAM: 01/11/2024 CLINICAL HISTORY: Weakness TECHNIQUE: Frontal and lateral views of the chest are obtained. COMPARISON: 12/30/2023 FINDINGS: There is pulmonary venous congestion with small right-sided pleural effusion and scattered infiltrates. Cardiomegaly noted. The osseous structures are intact. IMPRESSION: Findings suggest mild congestive failure. Infiltrates of other etiology not excluded. Pro karen study is recommended. [facility], , 01/11/2024 1:32 PM
--- NOTE | 2024-01-11 13:40 | CT ---
EXAMINATION TYPE: CT lumbar spine wo con DATE OF EXAM: 01/11/2024 1:20 PM COMPARISON: 12/02/2023 CLINICAL INDICATION: Male, 83 years old with history of Postsurgical infection; PHH, lumbar back pain TECHNIQUE: Unenhanced CT of the lumbar spine was performed. Bone and soft tissue window settings are submitted as well as coronal and sagittal reconstructions. CT DLP: 2169.[address] CTDI: mGy Automated exposure control for dose reduction was used. FINDINGS: L1-L2: Postoperative changes of fusion. Pedicular screws are in place. Postoperative alignment is wit hin normal limits. Streak artifact limits evaluation. Postsurgical soft tissue changes seen. Skin jose manuel identified. L2-L3: Again noted is severe compression fracture of L3 with loss of height of nearly 90%. Pedicular screws noted. Mild bony retropulsion 5.5 mm resulting in severe central stenosis. Vacuum disc seen. L3-L4: 50% loss of height involving superior endplate of L4 with vertebroplasty change. No significan t bony retropulsion identified. There is posterior disc bulge with hypertrophy ligamentum flavum and severe facet joint arthropathy resulting in severe central stenosis. Pedicular screws in place. L4-L5: Mild degenerative disc space narrowing and posterior disc bulge. Hypertrophy of ligamentum fla vum and facet joint arthropathy resulting in [id number] central stenosis. Bilateral foraminal e ncroachment. Pedicular screws in place. L5-S1: Normal disc space height. No disc herniation protrusion or central stenosis. No facet joint arthropathy. No evidence for foraminal encroachment. Pedicular screws in place. IMPRESSION: 1. Interval changes of fusion with pedicular screws extending from L1 through L5 S1. Postoperative al ignment is felt to be within normal limits. 2. Degenerative disc disease with central stenosis as outlined above. Bony retropulsion and superior endplate of L3. Central stenosis at L2-3 has outlined above. [facility], , 01/11/2024 1:38 PM
[2024-01-11] MEDS ORDERED: NALOXONE 0.4 MG/ML 1 ML VIAL IV PRN (15:22)
--- NOTE | 2024-01-11 15:30 | ED ---
Weakness HPI - General Chief complaint: Weakness Stated complaint: Possible sepsis Time Seen by Provider: 01/11/24 11:36 Source: patient, family, EMS, RN notes reviewed, old records reviewed Mode of arrival: EMS Limitations: physical limitation - History of Present Illness Initial comments: 83-year-old male presents emerged part via EMS from [facility] for possible sepsis, abnormal vitals. Patient has had recent lumbar fusion but is had a steady decline. Patient was found to be hypotensive and requiring further oxygenation at facility they state there was some skin breakdown around his incision of his lumbar spine. Patient states he still having leg weakness and overall generalized weakness. Patient was found to be hypoxic in the mid 80s requiring more than 5 L. Patient denies chest pain patient has been having issues with paroxysmal atrial fibrillation in which worsened during his surgery. - Related Data Home Medications Medication Instructions Recorded Confirmed Sertraline HCl [Zoloft] 200 mg PO DAILY 10/30/13 12/25/23 Temazepam [Restoril] 7.5 mg PO HS 12/25/23 12/25/23 guaiFENesin SYRUP 100MG/5ML 200 mg PO Q4H PRN 12/25/23 12/25/23 [Robitussin] Previous Rx's Medication Instructions Recorded Amiodarone [Cordarone] 200 mg PO BID tab 12/05/23 Apixaban [Eliquis] 2.5 mg PO BID #0 tab 12/05/23 Dapagliflozin Propanediol [Farxiga] 10 mg PO DAILY tab 12/05/23 Docusate [Colace] 100 mg PO BID cap 12/05/23 Acetaminophen Tab [Tylenol] 650 mg PO Q6HR tab 01/03/24 Cyclobenzaprine [Flexeril] 5 mg PO TID PRN 3 Days #9 tab 01/03/24 Digoxin [Lanoxin] 125 mcg PO DAILY tab 01/03/24 Gabapentin [Neurontin] 300 mg PO TID 3 Days #9 cap 01/03/24 Ipratropium-Albuterol Nebulize 3 ml INHALATION RT-Q2H PRN each 01/03/24 [Duoneb 0.5 mg-3 mg/3 ml Soln] Ipratropium-Albuterol Nebulize 3 ml INHALATION RT-QID each 01/03/24 [Duoneb 0.5 mg-3 mg/3 ml Soln] Midodrine [ProAmatine] 5 mg PO AC-TID PRN tab 01/03/24 cefuroxime axetiL [Ceftin] 500 mg PO BID 3 Days #6 tab 01/03/24 Allergies Allergy/AdvReac Type Severity Reaction Status Date / Time hydrocodone [From Lortab] Allergy SEVERE Verified 01/11/24 11:45 ABDOMINAL AND TROUBLE BREATHING hydrocodone bitartrate Allergy Anaphylaxis Verified 01/11/24 11:45 [From Vicodin] Penicillins Allergy Anaphylaxis Verified 01/11/24 11:45 propoxyphene napsylate Allergy Anaphylaxis Verified 01/11/24 11:45 [From Darvocet-N 100] tamsulosin HCl [From Flomax] Allergy Anaphylaxis Verified 01/11/24 11:45 Review of Systems ROS Statement: Those systems with pertinent positive or pertinent negative responses have been documented in the HPI. ROS Other: All systems not noted in ROS Statement are negative. Past Medical History Past Medical History: Atrial Fibrillation, CVA/TIA, GERD/Reflux, Hearing Disorder / Deafness, Hyperlipidemia, Osteoarthritis (OA), Prostate Disorder Additional Past Medical History / Comment(s): Tinnitus, Hx kidney stones, BPH, LUNG SCARRING. 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 History of Any Multi-Drug Resistant Organisms: None Reported Past Surgical History: Adenoidectomy, Back Surgery, Ear Surgery, Heart Catheterization, Joint Replacement, Tonsillectomy Additional Past Surgical History / Comment(s): Oral surgery, diana knee replacements, partial thyroidectomy, diana cataracts. EGD, COLONOSCOPY c ardioversion Past Anesthesia/Blood Transfusion Reactions: No Reported Reaction Past Psychological History: Anxiety Smoking Status: Former smoker Past Alcohol Use History: None Reported Past Drug Use History: None Reported - Past Family History Mother Family Medical History: No Reported History Additional Family Medical History / Comment(s): . General Exam Limitations: physical limitation General appearance: alert, in no apparent distress Head exam: Present: atraumatic, normocephalic, normal inspection Eye exam: Present: normal appearance, PERRL, EOMI. Absent: scleral icterus, conjunctival injection, periorbital swelling ENT exam: Present: normal exam, mucous membranes moist Neck exam: Present: normal inspection. Absent: tenderness, meningismus, lymphadenopathy Respiratory exam: Present: rales, rhonchi. Absent: normal lung sounds bilaterally, respiratory distress, wheezes, stridor Cardiovascular Exam: Present: normal rhythm, tachycardia, normal heart sounds. Absent: systolic murmur, diastolic murmur, rubs, gallop, clicks GI/Abdominal exam: Present: soft, normal bowel sounds. Absent: distended, tenderness, guarding, rebound, rigid Back exam: Present: tenderness, other (Bilateral lower lumbar incisions there is some erythema on the right side with some skin breakdown noted). Absent: normal inspection, full ROM Skin exam: Present: warm, dry, intact, normal color. Absent: rash Course Vital Signs 01/11/24 01/11/24 01/11/24 11:33 11:52 12:00 Temperature 98.1 F Pulse Rate 101 H 80 Respiratory 19 19 16 Rate Blood Pressure 116/59 116/56 O2 Sat by Pulse 90 L 95 Oximetry 01/11/24 01/11/24 13:30 14:30 Temperature Pulse Rate 80 80 Respiratory 19 20 Rate Blood Pressure 123/64 124/74 O2 Sat by Pulse 94 L 93 L Oximetry EKG Findings - EKG Comments: EKG Findings:: EKG performed at 12: 13 sinus rhythm with first-degree block rate of 82 OK 228 QRS 113 QT/QTc 383/421 - EKG Results: EKG: interpreted by [facility] Medical Decision Making - Medical Decision Making Was pt. sent in by a medical professional or institution (, PA, MANAGER OF PROCUREMENT, urgent care, hospital, or correction...) When possible be specific @ -No Did you speak to anyone other than the patient for history (EMS, parent, family, police, friend...)? What history was obtained from this source @ -No Did you review nursing and triage notes (agree or disagree)? Why? @ -I reviewed and agree with nursing and triage notes Were old charts reviewed (outside hosp., previous admission, EMS record, old EKG, old radiological studies, urgent care reports/EKG's, correction records)? Report findings @ -No old charts were reviewed Differential Diagnosis (chest pain, altered mental status, abdominal pain women, abdominal pain men, vaginal bleeding, weakness, fever, dyspnea, syncope, headache, dizziness, GI bleed, back pain, seizure, CVA, palpatations, mental h ealth, musculoskeletal)? @ -Differential Weakness: Hypoglycemia, shock, sepsis, hyponatremia, anemia, infection, MN, ETOH, adverse medicine reaction, overdose, stroke, this is not meant to be an all-inclusive list. EKG interpreted by me (3pts min.). @ -As above X-rays interpreted by me (1pt min.). @ -Chest x-ray shows pulmonary edema versus infiltrates CT interpreted by me (1pt min.). @ -ET lumbar spine showing postsurgical changes no fluid collection U/S interpreted by me (1pt. min.). @ -None done What testing was considered but not performed or refused? (CT, X-rays, U/S, labs)? Why? @ -None What meds were considered but not given or refused? Why? @ -None Did you discuss the management of the patient with other professionals (professionals i.e. , PA, MANAGER OF PROCUREMENT, lab, RT, psych nurse, social media marketer, gravity prospecting observer helper, teacher, credit control officer, case management associate)? Give summary @Dr. Beltran for admission Was smoking cessation discussed for >3mins.? @ -No Was critical care preformed (if so, how long)? @ -No Were there social determinants of health that impacted care today? How? (Homelessness, low income, unemployed, alcoholism, drug addiction, transportation, low edu. Level, literacy, decrease access to med. care, snf, rehab)? @ -No Was there de-escalation of care discussed even if they declined (Discuss DNR or withdrawal of care, Hospice)? DNR status @ -No What co-morbidities impacted this encounter? (DM, HTN, Smoking, COPD, CAD, Cancer, CVA, ARF, Chemo, Hep., AIDS, mental health diagnosis, sleep apnea, morbid obesity)? @ -None Was patient admitted / discharged? Hospital course, mention meds given and route, prescriptions, significant lab abnormalities, going to OR and other pertinent info. @ -Admitted patient's found to be hypoxic concerning for pulm edema versus infiltrates. Patient's BNP is low at 1400, patient was started on dual antibiotic therapy will have infectious disease consult and cardiology consult requested by admitting physician. Patient will have consult to surgeon. Pa tient will have repeat laboratory studies and further evaluation. Undiagnosed new problem with uncertain prognosis? @ -No Drug Therapy requiring intensive monitoring for toxicity (Heparin, Nitro, Insu yanni, Cardizem)? @ -No Were any procedures done? @ -No Diagnosis/symptom? @ -Hypoxia, pulm edema versus pneumonia Acute, or Chronic, or Acute on Chronic? @ -Acute Uncomplicated (without systemic symptoms) or Complicated (systemic symptoms)? @ -Complicated Side effects of treatment? @ -No Exacerbation, Progression, or Severe Exacerbation? @ -No Poses a threat to life or bodily function? How? (Chest pain, [place], MN, pneumonia, PE, COPD, DKA, ARF, appy, cholecystitis, CVA, Diverticulitis, Homicidal, S uicidal, threat to staff... and all critical care pts) @ -Yes pneumonia, pulm edema possible respiratory failure - Lab Data Result diagrams: 01/11/24 12:13 01/11/24 12:13 Lab Results 01/11/24 01/11/24 01/11/24 Range/Units 12:13 12:13 12:13 WBC 8.9 (3.8-10.6) k/uL RBC 3.56 L (4.30-5.90) m/uL Hgb 11.6 L (13.0-17.5) gm/dL Hct 36.8 L (39.0-53.0) % MCV 103.3 H (80.0-100.0) fL MCH 32.5 (25.0-35.0) pg MCHC 31.5 (31.0-37.0) g/dL RDW 14.5 (11.5-15.5) % Plt Count 138 L (150-450) k/uL MPV 8.5 Neutrophils % 87 % Lymphocytes % 6 % Monocytes % 4 % Eosinophils % 3 % Basophils % 0 % Neutrophils # 7.7 (1.3-7.7) k/uL Lymphocytes # 0.5 L (1.0-4.8) k/uL Monocytes # 0.4 (0-1.0) k/uL Eosinophils # 0.2 (0-0.7) k/uL Basophils # 0.0 (0-0.2) k/uL Hypochromasia Marked Macrocytosis Slight PT 11.0 (10.0-12.5) sec INR 1.0 (<1.2) APTT 23.4 (22.0-30.0) sec Sodium 135 L (137-145) mmol/L Potassium 5.0 (3.5-5.1) mmol/L Chloride 100 (98-107) mmol/L Carbon Dioxide 34 H (22-30) mmol/L Anion Gap 1 mmol/L BUN 29 H (9-20) mg/dL Creatinine 0.97 (0.66-1.25) mg/dL Est GFR (CKD-EPI)AfAm 84 (>60 ml/min/1.73 sqM) Est GFR (CKD-EPI)NonAf 73 (>60 ml/min/1.73 sqM) Glucose 101 H (74-99) mg/dL Plasma Lactic Acid Jayden (0.7-2.0) mmol/L Calcium 8.0 L (8.4-10.2) mg/dL Magnesium 2.2 (1.6-2.3) mg/dL Total Bilirubin 0.8 (0.2-1.3) mg/dL AST 30 (17-59) U/L ALT 13 (4-49) U/L Alkaline Phosphatase 128 H (38-126) U/L Troponin I (0.000-0.034) ng/mL NT-Pro-B Natriuret Pep pg/mL Total Protein 5.0 L (6.3-8.2) g/dL Albumin 2.8 L (3.5-5.0) g/dL 01/11/24 01/11/24 01/11/24 Range/Units 12:13 12:13 12:13 WBC (3.8-10.6) k/uL RBC (4.30-5.90) m/uL Hgb (13.0-17.5) gm/dL Hct (39.0-53.0) % MCV (80.0-100.0) fL MCH (25.0-35.0) pg MCHC (31.0-37.0) g/dL RDW (11.5-15.5) % Plt Count (150-450) k/uL MPV Neutrophils % % Lymphocytes % % Monocytes % % Eosinophils % % Basophils % % Neutrophils # (1.3-7.7) k/uL Lymphocytes # (1.0-4.8) k/uL Monocytes # (0-1.0) k/uL Eosinophils # (0-0.7) k/uL Basophils # (0-0.2) k/uL Hypochromasia Macrocytosis PT (10.0-12.5) sec INR (<1.2) APTT (22.0-30.0) sec Sodium (137-145) mmol/L Potassium (3.5-5.1) mmol/L Chloride (98-107) mmol/L Carbon Dioxide (22-30) mmol/L Anion Gap mmol/L BUN (9-20) mg/dL Creatinine (0.66-1.25) mg/dL Est GFR (CKD-EPI)AfAm (>60 ml/min/1.73 sqM) Est GFR (CKD-EPI)NonAf (>60 ml/min/1.73 sqM) Glucose (74-99) mg/dL Plasma Lactic Acid Jayden 0.8 (0.7-2.0) mmol/L Calcium (8.4-10.2) mg/dL Magnesium (1.6-2.3) mg/dL Total Bilirubin (0.2-1.3) mg/dL AST (17-59) U/L ALT (4-49) U/L Alkaline Phosphatase (38-126) U/L Troponin I <0.012 (0.000-0.034) ng/mL NT-Pro-B Natriuret Pep 1470 pg/mL Total Protein (6.3-8.2) g/dL Albumin (3.5-5.0) g/dL Disposition Clinical Impression: Hypoxia, Pneumonia, Wound infection after surgery, S/P lumbar fusion, Weakness Disposition: ADMITTED IP TO THIS [facility] Condition: Poor Referrals: Juan C Beltran MD [Primary Care Provider] - 1-2 days Time of Disposition: 15:30
[2024-01-11] MEDS: AZITHROMYCIN 500 MG in SODIUM CHLORIDE 0.9% 250 ML IVPB STA (15:53)
[2024-01-11 16:37] LABS: Appearance,Urine Clear (Clear); Bilirubin,Urine Negative (Negative); Blood,Urine Negative (Negative); Color,Urine Yellow; Glucose,Urine (UA) 1+ (Negative); Ketones,Urine Negative (Negative); Leukocyte Esterase,Urine Negative (Negative); Nitrite,Urine Negative (Negative); PH, Urine 6.5 (5.0-8.0); Protein,Urine Trace (Negative); Urobilinogen,Urine <2.0 mg/dL (<2.0)
[2024-01-12] MEDS ORDERED: bisacodyL 10 MG SUPP RECTAL PRN (01:16)
[2024-01-12] MEDS ORDERED: IPRATROPIUM-ALBUTEROL 3 ML NEB INHALATION PRN (01:43)
[2024-01-12] MEDS: IPRATROPIUM-ALBUTEROL 3 ML NEB INHALATION SCH (04:21)
[2024-01-12] MEDS: ACETAMINOPHEN TAB 325 MG TAB PO SCH (06:35)
[2024-01-12] MEDS: DIGOXIN 125 MCG TAB PO SCH (06:35)
[2024-01-12] MEDS ORDERED: MIDODRINE 5 MG TAB PO PRN (07:30)
[2024-01-12] MEDS ORDERED: NON FORMULARY DRUG (Ensure Enlive 237 ML) PO SCH (08:00)
[2024-01-12] MEDS ORDERED: MAGNESIUM HYDROXIDE 2,400 MG/30 ML CUP PO PRN (09:00)
[2024-01-12] MEDS ORDERED: NA PHOS,M-B/NA PHOS,DI-BA 133 ML ENEMA RECTAL PRN (09:00)
[2024-01-12] MEDS: guaiFENesin 600 MG TABLET.ER PO SCH (09:14)
[2024-01-12] MEDS: SENNOSIDES-DOCUSATE SODIUM 1 EACH TAB PO SCH (09:14)
[2024-01-12] MEDS: DAPAGLIFLOZIN PROPANEDIOL 10 MG TABLET PO SCH (09:14)
[2024-01-12] MEDS: AMIODARONE 200 MG TAB PO SCH (09:14)
[2024-01-12] MEDS: GABAPENTIN 300 MG CAP PO SCH (09:14)
[2024-01-12] MEDS: APIXABAN 2.5 MG TABLET PO SCH (09:14)
[2024-01-12] MEDS: SERTRALINE 100 MG TAB PO SCH (09:14)
[2024-01-12 10:41] LABS: Basophils % (A) 0 %; Eosinophils # (A) 0.2 k/uL (0-0.7); Eosinophils % (A) 2 %; HCT 36.8 % (39.0-53.0); HGB 11.4 gm/dL (13.0-17.5); Hypochromasia Marked; Lymphocytes # (A) 0.4 k/uL (1.0-4.8); Lymphocytes % (A) 4 %; MCH 32.5 pg (25.0-35.0); MCV 104.6 fL (80.0-100.0); Macrocytosis Moderate; Mean Platelet Volume 8.5; Monocytes # (A) 0.4 k/uL (0-1.0); Monocytes % (A) 4 %; Neutrophils # (A) 8.4 k/uL (1.3-7.7); Neutrophils % (A) 90 %; Platelet Count 126 k/uL (150-450); Poikilocytosis Slight; RBC 3.52 m/uL (4.30-5.90); RDW 14.3 % (11.5-15.5); WBC 9.3 k/uL (3.8-10.6)
[2024-01-12 11:09] LABS: ALT 11 U/L (4-49); AST 23 U/L (17-59); African American GFR (CKD) 79 (>60 ml/min/1.73 sqM); Albumin 2.6 g/dL (3.5-5.0); Alkaline Phosphatase 155 U/L (38-126); Anion Gap 3 mmol/L; Blood Urea Nitrogen 27 mg/dL (9-20); Calcium 7.9 mg/dL (8.4-10.2); Carbon Dioxide 31 mmol/L (22-30); Chloride 101 mmol/L (98-107); Glucose 100 mg/dL (74-99); Non-African American GFR(CKD) 68 (>60 ml/min/1.73 sqM); Potassium 4.5 mmol/L (3.5-5.1); Sodium 135 mmol/L (137-145); Total Bilirubin 0.9 mg/dL (0.2-1.3); Total Protein 4.8 g/dL (6.3-8.2)
--- NOTE | 2024-01-12 11:10 | P.HPIM ---
History of Present Illness H&P Date: 01/12/24 Nick Vora, is an 83-year-old male currently in rehab at [facility] who was sent to [facility] emergency room, for worsening shortness of breath decreased O2 saturation, hypotension, generalized weakness and erythema skin breakdown or from back surgical wound. He was evaluated in the emergency room vital examination on presentation revealed a temperature of 98.1 pulse 101 respiration 19 blood pressure 116/59 pulse ox 90% on 5 L nasal cannula Laboratory data revealed a white blood count of 8.9 hemoglobin 11.6 platelet count 138 BUN 29 creatinine 0.97 troponin 0.012 BNP 1470 Testing in the emergency room revealed EKG revealed sinus rhythm with first- degree AV block, CT scan of the lumbar spine revealed evidence of recent fusion L1-L5. Chest x-ray revealed findings suggestive of congestive heart failure, infiltrates of other etiology not excluded. Patient was admitted to medical floor for further evaluation and treatment Past medical history is significant for history of hypertension, history of hyperlipidemia, history of paroxysmal atrial fibrillation, history of benign prostatic hypertrophy, history of decreased hearing, history of invasive colonic adenocarcinoma patient will need surgical intervention in the near future after he is medically stable, history of recent back surgery with lumbar fusion. On review of systems patient is alert and oriented x 3 in no apparent distress there is no fever or chills no headache or dizziness no chest pain he has some shortness of breath with any activity there is no cough no nausea or vomiting no abdominal pain no diarrhea no constipation no blood in the stools no burning with urination no frequency or urgency and no hematuria. Past Medical History Past Medical History: Atrial Fibrillation, Cancer, CVA/TIA, GERD/Reflux, Hearing Disorder / Deafness, Hyperlipidemia, Osteoarthritis (OA), Prostate Disorder Additional Past Medical History / Comment(s): Tinnitus, Hx kidney stones, BPH, LUNG SCARRING. 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 Colon CA dx end of 2023 History of Any Multi-Drug Resistant Organisms: None Reported Past Surgical History: Adenoidectomy, Back Surgery, Ear Surgery, Heart Catheterization, Joint Replacement, Tonsillectomy Additional Past Surgical History / Comment(s): Oral surgery, diana knee replacements, partial thyroidectomy, diana cataracts. EGD, COLONOSCOPY car dioversion, spinal decompression for lumbar fx Past Anesthesia/Blood Transfusion Reactions: No Reported Reaction Past Psychological History: Anxiety Smoking Status: Former smoker Past Alcohol Use History: None Reported Additional Past Alcohol Use History / Comment(s): quit smoking 1986, started smoking age 17 Past Drug Use History: None Reported - Past Family History Mother Family Medical History: No Reported History Additional Family Medical History / Comment(s): . Medications and Allergies Home Medications Medication Instructions Recorded Confirmed Type Sertraline HCl [Zoloft] 200 mg PO DAILY@0800 10/30/13 01/11/24 History Temazepam [Restoril] 7.5 mg PO HS@2100 12/25/23 01/11/24 History guaiFENesin SYRUP 100MG/5ML 200 mg PO Q4H PRN 12/25/23 01/11/24 History [Robitussin] Acetaminophen Tab [Tylenol] 650 mg PO Q6HR tab 01/03/24 01/11/24 Rx Ipratropium-Albuterol Nebulize 3 ml INHALATION RT-Q2H PRN each 01/03/24 01/11/24 Rx [Duoneb 0.5 mg-3 mg/3 ml Soln] Amiodarone [Cordarone] 200 mg PO BID@0800,1700 01/11/24 01/11/24 History Apixaban [Eliquis] 2.5 mg PO BID@0800,1700 01/11/24 01/11/24 History Cyclobenzaprine [Flexeril] 5 mg PO Q8H PRN 01/11/24 01/11/24 History Dapagliflozin Propanediol [Farxiga] 10 mg PO DAILY@0800 01/11/24 01/11/24 History Digoxin [Lanoxin] 125 mcg PO DAILY@0600 01/11/24 01/11/24 History Ensure Enlive 237 ml PO TID@0800,1200,1700 01/11/24 01/11/24 History Gabapentin [Neurontin] 300 mg PO TID@0800,1200,1700 01/11/24 01/11/24 History Ipratropium-Albuterol Nebulize 3 ml INHALATION RT-Q6H 01/11/24 01/11/24 History [Duoneb 0.5 mg-3 mg/3 ml Soln] Magnesium Hydroxide [Milk of 7,200 mg PO DIRECTED PRN 01/11/24 01/11/24 History Magnesia Concentrate] Midodrine [ProAmatine] 5 mg PO AC-TID PRN 01/11/24 01/11/24 History Na Phos,M-B/Na Phos,Di-Ba [Fleet 133 ml RECTAL DAILY PRN 01/11/24 01/11/24 History Adult] Sennosides/Docusate Sodium [Senna 1 tab PO BID@0800,1700 01/11/24 01/11/24 History Plus 8.6-50 mg Tablet] bisacodyL [Dulcolax] 10 mg RECTAL DAILY PRN 01/11/24 01/11/24 History Allergies Allergy/AdvReac Type Severity Reaction Status Date / Time hydrocodone [From Lortab] Allergy SEVERE Verified 01/11/24 18:41 ABDOMINAL AND TROUBLE BREATHING hydrocodone bitartrate Allergy Anaphylaxis Verified 01/11/24 18:41 [From Vicodin] Penicillins Allergy Anaphylaxis Verified 01/11/24 18:41 propoxyphene napsylate Allergy Anaphylaxis Verified 01/11/24 18:41 [From Darvocet-N 100] tamsulosin HCl [From Flomax] Allergy Anaphylaxis Verified 01/11/24 18:41 Physical Exam Vitals: Vital Signs Temp Pulse Pulse Resp BP BP Pulse Ox 01/12/24 08:08 100 01/12/24 07:54 96 01/12/24 03:06 97.7 F 99 18 108/54 91 L 01/12/24 01:54 99 01/12/24 00:00 97.3 F L 76 18 110/55 91 L 01/11/24 23:57 90 18 123/66 93 L 01/11/24 20:04 99.0 F 99 17 123/66 93 L 01/11/24 18:15 98 19 109/64 93 L 01/11/24 17:11 100 18 111/59 91 L 01/11/24 15:48 77 19 110/58 97 01/11/24 14:30 80 20 124/74 93 L 01/11/24 13:30 80 19 123/64 94 L 01/11/24 12:00 80 16 116/56 95 01/11/24 11:52 19 01/11/24 11:33 98.1 F 101 H 19 116/59 90 L Intake and Output 01/11/24 01/12/24 01/12/24 22:59 06:59 14:59 Intake Total 257 180 Output Total 200 600 Balance -200 -343 180 Intake: IV 20 Invasive Line 1 10 Invasive Line 2 10 Oral 237 180 Output: Urine 200 600 Uretheral (Mulligan) 200 Other: Voiding Method Indwelling Catheter # Bowel Movements 1 Weight 73 kg In general patient is alert and oriented x 3 in no distress HEENT head normocephalic and atraumatic Neck is supple no JVD no goiter no lymphadenopathy no carotid bruit Chest examination reveals a scattered crackles bilaterally no wheezing Cardiac exam reveals regular heart sounds S1 and S2 no gallops no murmurs Abdomen is soft nontender no organomegaly with normal bowel sounds Extremity exam reveals no edema no cyanosis or clubbing Back exam reveals mild erythema around the surgical wound with mild tenderness Neurological examination reveals generalized weakness with no gross focal deficits Results CBC & Chem 7: 01/12/24 09:33 01/11/24 12:13 Labs: Abnormal Lab Results - Last 24 Hours (Table) 01/11/24 01/11/24 01/11/24 Range/Units 12:13 12:13 15:39 RBC 3.56 L (4.30-5.90) m/uL Hgb 11.6 L (13.0-17.5) gm/dL Hct 36.8 L (39.0-53.0) % MCV 103.3 H (80.0-100.0) fL Plt Count 138 L (150-450) k/uL Lymphocytes # 0.5 L (1.0-4.8) k/uL Sodium 135 L (137-145) mmol/L Carbon Dioxide 34 H (22-30) mmol/L BUN 29 H (9-20) mg/dL Glucose 101 H (74-99) mg/dL Calcium 8.0 L (8.4-10.2) mg/dL Alkaline Phosphatase 128 H (38-126) U/L Total Protein 5.0 L (6.3-8.2) g/dL Albumin 2.8 L (3.5-5.0) g/dL Urine Protein Trace H (Negative) Urine Glucose (UA) 1+ H (Negative) Thrombosis Risk Factor Assmnt - Choose All That Apply Each Factor Represents 1 point: History of prior major surgery (<1month), Medical pt on bed rest, Obesity (BMI >25) Other Risk Factors: Yes Each Risk Factor Represents 2 Points: Patient confined to bed Each Risk Factor Represents 3 Points: Age 75 years or older Other congenital or acquired thrombophilia - If yes, enter type in comment: No Thrombosis Risk Factor Assessment Total Risk Factor Score: 8 Thrombosis Risk Factor Assessment Level: High Risk Assessment and Plan Plan: Acute exacerbation of systolic congestive heart failure Cardiomyopathy with ejection fraction 25 to 30% on echocardiogram done on 09/07/2023 Worsening shortness of breath and decreased O2 saturation likely related to congestive heart failure Mild erythema and tenderness in the lumbar surgical wound site Underlying history of paroxysmal atrial fibrillation Underlying history of hypertension Underlying history of hyperlipidemia Underlying history of colon adenocarcinoma patient will need surgery when medically stable Physical debility Moderate to severe protein calorie malnutrition At this time patient was seen and examined Home medications reviewed and reordered Consultation for infectious disease, cardiology, and orthopedic surgery initiated For DVT prophylaxis, patient is on Eliquis Prognosis is guarded will follow closely
[2024-01-12 11:51] LABS: C Reactive Protein 5.5 mg/dL (<1.0)
[2024-01-12] MEDS ORDERED: VANCOMYCIN IV PER PHARMACY 1 EACH MISC MISCELLANE PRN (12:29)
--- NOTE | 2024-01-12 13:53 | P.CNOR ---
History of Present Illness - [facility] Consult date: 01/12/24 Requesting physician: Juanpablo Whitaker Consult reason: other (s/p lumbar surgery) History of present illness: History of Presenting Illness Patient is a pleasant 83-year-old male who presented to the ER via EMS from [facility] for possible sepsis and abnormal vitals. Our services were consulted due to patient having recent lumbar surgery performed on 12/27/[address] Ashton. It is documented that since the recent lumbar fusion patient has had a steady decline in his mobility. Patient reports he is continue to have bilateral lower extremity weakness. It is documented that patient was found at [facility] to be hypoxic with an O2 saturation of mid 80s and requiring more than 5 L of O2. Patient seen and examined this morning. Patient is resting comfortably in bed. Patient reports that he has been residing at [facility] for rehab since his discharge. He states that he has continued with lower extremity weakness. He states that when he attempts to stand he feels that his legs may give out on him. Patient reports that he has worked with physical therapy at the facility, although unable to fully participate due to the inability of standing. Surgical incisions to the lumbar spine are very macerated. Edges are not approximated with jose manuel pulling from the incision. Mild to moderate amount of serous drainage identified on dressing. No active drainage during the assessment or placement of new bandage. Review of Systems Pertinent positives and negatives as discussed in HPI, a complete review of systems was performed and all other systems are negative. Physical Examination General: The patient is awake and alert, in no acute distress Skin: Multiple surgical incisions to the lumbar spine, skin is macerated with edges of incisions not approximated. Jose Manuel are pulling from the incisions. Back: There is moderate tenderness to palpation in the midline, paralumbar, parathoracic or buttocks region. There is no obvious deformity. Musculoskeletal: ROM limited secondary to pain and stiffness from surgical procedure. Right: shoulder abduction 5/5, elbow flexors 5/5, wrist dorsiflexors 5/5. finger abductor 5/5, handbag finisher 5/5, hip flexor 5/5, knee flexor 5/5, ankle dorsiflexor 5/5, ankle plantarflexion 5/5 and extensor hallucis 5/5. Left: shoulder abduction 5/5, elbow flexors 5/5, wrist dorsiflexors 5/5. finger abductor 5/5, handbag finisher 5/5, hip flexor 5/5, knee flexor 5/5, ankle dorsiflexor 5/5, ankle plantarflexion 5/5 and extensor hallucis 5/5. Neurological: CN 2-12 intact. There are no obvious motor or sensory deficits. Movement and coordination equal and intact. Sensory exam to light touch intact C5-T1 and intact from L2-S1. Reflexes 2/4 in bilateral upper and lower extremities. Negative Hoffmans, babinski, and clonus signs. Psychiatric: Cooperative, appropriate mood & affect, normal judgment. Assessment CT scan of the lumbar spine taken on 01/11/2024 demonstrates interval changes of fusion with pedicular screws extending from L1 through-L5 S1. Postoperative alignment is felt to be within normal limits. s/p 2 weeks Open reduction internal fixation L2-L3 with minimally invasive stabilization of L1-S1 and L2-L4 laminectomy Dehiscence of lumbar incisions Bilateral lower extremity weakness Mechanical low back pain Multiple complex medical comorbidities Plan At this time we recommend irrigation and debridement with incision and drainage of lumbar wounds. Surgical procedure is scheduled for tomorrow, 01/13/2024. Patient will be n.p.o. at midnight. 2. Appreciate medical management 3. Turn q 2 hrs and keep pressure off patient's spine. Utilize pillows to position. 4. Change dressing as needed to keep clean and dry. 5. Pain management - Continue with current regimen, Utilize ice therapy 20min every hour as needed away from incisions. 6. DVT prophylaxis - TEDs, SCDs 7. PT/OT - weightbearing as tolerated with a walker. 8. Appreciate consult. I reviewed and discussed this case with my attending Dr. Ashton, whom has reviewed this chart and films and is in agreement with assessment and plan of care as outlined above. I have personally seen and examined the patient, performed the documentation and the assessment and plan as written. Number of minutes spent on the visit: 30m. Past Medical History Past Medical History: Atrial Fibrillation, Cancer, CVA/TIA, GERD/Reflux, Hearing Disorder / Deafness, Hyperlipidemia, Osteoarthritis (OA), Prostate Disorder Additional Past Medical History / Comment(s): Tinnitus, Hx kidney stones, BPH, LUNG SCARRING. 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 Colon CA dx end of 2023 History of Any Multi-Drug Resistant Organisms: None Reported Past Surgical History: Adenoidectomy, Back Surgery, Ear Surgery, Heart Catheterization, Joint Replacement, Tonsillectomy Additional Past Surgical History / Comment(s): Oral surgery, diana knee replacements, partial thyroidectomy, diana cataracts. EGD, COLONOSCOPY cardioversion, spinal decompression for lumbar fx Past Anesthesia/Blood Transfusion Reactions: No Reported Reaction Past Psychological History: Anxiety Smoking Status: Former smoker Past Alcohol Use History: None Reported Additional Past Alcohol Use History / Comment(s): quit smoking 1986, started smoking age 17 Past Drug Use History: None Reported - Past Family History Mother Family Medical History: No Reported History Additional Family Medical History / Comment(s): . Medications and Allergies Home Medications Medication Instructions Recorded Confirmed Type Sertraline HCl [Zoloft] 200 mg PO DAILY@0800 10/30/13 01/11/24 History Temazepam [Restoril] 7.5 mg PO HS@2100 12/25/23 01/11/24 History guaiFENesin SYRUP 100MG/5ML 200 mg PO Q4H PRN 12/25/23 01/11/24 History [Robitussin] Acetaminophen Tab [Tylenol] 650 mg PO Q6HR tab 01/03/24 01/11/24 Rx Ipratropium-Albuterol Nebulize 3 ml INHALATION RT-Q2H PRN each 01/03/24 01/11/24 Rx [Duoneb 0.5 mg-3 mg/3 ml Soln] Amiodarone [Cordarone] 200 mg PO BID@0800,1700 01/11/24 01/11/24 History Apixaban [Eliquis] 2.5 mg PO BID@0800,1700 01/11/24 01/11/24 History Cyclobenzaprine [Flexeril] 5 mg PO Q8H PRN 01/11/24 01/11/24 History Dapagliflozin Propanediol [Farxiga] 10 mg PO DAILY@0800 01/11/24 01/11/24 History Digoxin [Lanoxin] 125 mcg PO DAILY@0600 01/11/24 01/11/24 History Ensure Enlive 237 ml PO TID@0800,1200,1700 01/11/24 01/11/24 History Gabapentin [Neurontin] 300 mg PO TID@0800,1200,1700 01/11/24 01/11/24 History Ipratropium-Albuterol Nebulize 3 ml INHALATION RT-Q6H 01/11/24 01/11/24 History [Duoneb 0.5 mg-3 mg/3 ml Soln] Magnesium Hydroxide [Milk of 7,200 mg PO DIRECTED PRN 01/11/24 01/11/24 History Magnesia Concentrate] Midodrine [ProAmatine] 5 mg PO AC-TID PRN 01/11/24 01/11/24 History Na Phos,M-B/Na Phos,Di-Ba [Fleet 133 ml RECTAL DAILY PRN 01/11/24 01/11/24 History Adult] Sennosides/Docusate Sodium [Senna 1 tab PO BID@0800,1700 01/11/24 01/11/24 History Plus 8.6-50 mg Tablet] bisacodyL [Dulcolax] 10 mg RECTAL DAILY PRN 01/11/24 01/11/24 History Allergies Allergy/AdvReac Type Severity Reaction Status Date / Time hydrocodone [From Lortab] Allergy SEVERE Verified 01/11/24 18:41 ABDOMINAL AND TROUBLE BREATHING hydrocodone bitartrate Allergy Anaphylaxis Verified 01/11/24 18:41 [From Vicodin] Penicillins Allergy Anaphylaxis Verified 01/11/24 18:41 propoxyphene napsylate Allergy Anaphylaxis Verified 01/11/24 18:41 [From Darvocet-N 100] tamsulosin HCl [From Flomax] Allergy Anaphylaxis Verified 01/11/24 18:41 Results - Labs Labs: Abnormal Lab Results - Last 24 Hours (Table) 01/11/24 01/11/24 01/11/24 Range/Units 12:13 12:13 15:39 RBC 3.56 L (4.30-5.90) m/uL Hgb 11.6 L (13.0-17.5) gm/dL Hct 36.8 L (39.0-53.0) % MCV 103.3 H (80.0-100.0) fL Plt Count 138 L (150-450) k/uL Lymphocytes # 0.5 L (1.0-4.8) k/uL Sodium 135 L (137-145) mmol/L Carbon Dioxide 34 H (22-30) mmol/L BUN 29 H (9-20) mg/dL Glucose 101 H (74-99) mg/dL Calcium 8.0 L (8.4-10.2) mg/dL Alkaline Phosphatase 128 H (38-126) U/L Total Protein 5.0 L (6.3-8.2) g/dL Albumin 2.8 L (3.5-5.0) g/dL Urine Protein Trace H (Negative) Urine Glucose (UA) 1+ H (Negative) H & H 01/11/24 Range/Units 12:13 Hgb 11.6 L (13.0-17.5) gm/dL Hct 36.8 L (39.0-53.0) % Coagulation 01/11/24 Range/Units 12:13 INR 1.0 (<1.2) Result Diagrams: 01/12/24 09:33 01/12/24 09:33
[2024-01-12] MEDS ORDERED: TRANEXAMIC 1,000 MG/100ML-NACL 1,000 MG in SALINE 1 100ML.BAG IVPB PRN (13:57)
[2024-01-12] MEDS: CEFEPIME 2 GM in SODIUM CHLORIDE 0.9% 100 ML IVPB SCH (14:11)
[2024-01-12] MEDS: VANCOMYCIN 1,250 MG in SODIUM CHLORIDE 0.9% 250 ML IVPB ONE (14:12)
[2024-01-12] MEDS: METOPROLOL SUCCINATE (ER) 25 MG TAB.ER.24H PO SCH (18:14)
[2024-01-12] MEDS: FUROSEMIDE 10 MG/ML 4 ML VIAL IV SCH (18:14)
--- NOTE | 2024-01-12 18:35 | P.CRDCN ---
History of Present Illness Consult date: 01/12/24 History of present illness: HISTORY OF PRESENTING ILLNESS Patient is a 83-year-old with multiple comorbidities. He has a past medical history of severe cardiomyopathy, persistent atrial fibrillation. [facility] of increased worsening shortness of breath, generalized weakness, erythema and skin breakdown from his surgical wound on his back. He was also noticed to be hypoxic at [facility]. Admission labs showed hemoglobin 11.6, BUN 29, creatinine 0.9, troponin was negative, elevated ESR and CRP, normal procalcitonin, NT-proBNP of 1470. He was admitted in hospital 2 weeks ago at that time his NT-proBNP was 2800. In November it was 10,000. Chest x-ray shows chronic infiltrates in the right lower lung field with mild increased interstitial edema as compared to last chest x-ray from November. EKG shows atrial fibrillation, mild IVCD. REVIEW OF SYSTEMS 14 point review of system is negative except what is mentioned above in HPI. PHYSICAL EXAMINATION Neck: Brisk carotid upstroke, mildly elevated JVD Lungs: Mild crackles audible in right lower lung field, diminished inspiratory effort Heart: Irregularly irregular, systolic murmur audible Abdomen: Soft nontender, positive bowel sounds. Extremities: 1+ pitting edema Neuro: Alert, oritented, no focal deficits. Detailed neuro exam was not performed. ASSESSMENT Acute on chronic HFrEF exacerbation History of cardiomyopathy, EF 25 to 30% Persistent atrial fibrillation Hypertension Dyslipidemia Erythema and pain at lumbar surgical wound. Colon adenocarcinoma PLAN Start amiodarone 20 mg daily, digoxin 125 mcg daily, Lasix 40 mg IV daily, metoprolol 12.5 m daily Holding anticoagulation for possible debridement surgery for lumbar surgical wound Resume anticoagulation after surgically cleared Assess volume status with input output charting and daily weights Monitor renal function electrolytes Consider uptitrating GDMT as tolerated by blood pressure and heart rate Further recommendations to follow Obtain records from the cardiology office to understand the long-term plan. Patient follows up with Dr. Alvares. Varun Doyle MD, FAC, RPVI Thank you for allowing [facility] to participate in this patient's care. Feel free to reach out in case of any followup questions. Past Medical History Past Medical History: Atrial Fibrillation, Cancer, CVA/TIA, GERD/Reflux, Hearing Disorder / Deafness, Hyperlipidemia, Osteoarthritis (OA), Prostate Disorder Additional Past Medical History / Comment(s): Tinnitus, Hx kidney stones, BPH, LUNG SCARRING. 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 Colon CA dx end of 2023 History of Any Multi-Drug Resistant Organisms: None Reported Past Surgical History: Adenoidectomy, Back Surgery, Ear Surgery, Heart Cathete rization, Joint Replacement, Tonsillectomy Additional Past Surgical History / Comment(s): Oral surgery, diana knee replacements, partial thyroidectomy, diana cataracts. EGD, COLONOSCOPY cardioversion, spinal decompression for lumbar fx Past Anesthesia/Blood Transfusion Reactions: No Reported Reaction Past Psychological History: Anxiety Smoking Status: Former smoker Past Alcohol Use History: None Reported Additional Past Alcohol Use History / Comment(s): quit smoking 1986, started smoking age 17 Past Drug Use History: None Reported - Past Family History Mother Family Medical History: No Reported History Additional Family Medical History / Comment(s): . Medications and Allergies Home Medications Medication Instructions Recorded Confirmed Type Sertraline HCl [Zoloft] 200 mg PO DAILY@0800 10/30/13 01/11/24 History Temazepam [Restoril] 7.5 mg PO HS@2100 12/25/23 01/11/24 History guaiFENesin SYRUP 100MG/5ML 200 mg PO Q4H PRN 12/25/23 01/11/24 History [Robitussin] Acetaminophen Tab [Tylenol] 650 mg PO Q6HR tab 01/03/24 01/11/24 Rx Ipratropium-Albuterol Nebulize 3 ml INHALATION RT-Q2H PRN each 01/03/24 01/11/24 Rx [Duoneb 0.5 mg-3 mg/3 ml Soln] Amiodarone [Cordarone] 200 mg PO BID@0800,1700 01/11/24 01/11/24 History Apixaban [Eliquis] 2.5 mg PO BID@0800,1700 01/11/24 01/11/24 History Cyclobenzaprine [Flexeril] 5 mg PO Q8H PRN 01/11/24 01/11/24 History Dapagliflozin Propanediol [Farxiga] 10 mg PO DAILY@0800 01/11/24 01/11/24 History Digoxin [Lanoxin] 125 mcg PO DAILY@0600 01/11/24 01/11/24 History Ensure Enlive 237 ml PO TID@0800,1200,1700 01/11/24 01/11/24 History Gabapentin [Neurontin] 300 mg PO TID@0800,1200,1700 01/11/24 01/11/24 History Ipratropium-Albuterol Nebulize 3 ml INHALATION RT-Q6H 01/11/24 01/11/24 History [Duoneb 0.5 mg-3 mg/3 ml Soln] Magnesium Hydroxide [Milk of 7,200 mg PO DIRECTED PRN 01/11/24 01/11/24 Hist ory Magnesia Concentrate] Midodrine [ProAmatine] 5 mg PO AC-TID PRN 01/11/24 01/11/24 History Na Phos,M-B/Na Phos,Di-Ba [Fleet 133 ml RECTAL DAILY PRN 01/11/24 01/11/24 History Adult] Sennosides/Docusate Sodium [Senna 1 tab PO BID@0800,1700 01/11/24 01/11/24 History Plus 8.6-50 mg Tablet] bisacodyL [Dulcolax] 10 mg RECTAL DAILY PRN 01/11/24 01/11/24 History Allergies Allergy/AdvReac Type Severity Reaction Status Date / Time hydrocodone [From Lortab] Allergy SEVERE Verified 01/11/24 18:41 ABDOMINAL AND TROUBLE BREATHING hydrocodone bitartrate Allergy Anaphylaxis Verified 01/11/24 18:41 [From Vicodin] Penicillins Allergy Anaphylaxis Verified 01/11/24 18:41 propoxyphene napsylate Allergy Anaphylaxis Verified 01/11/24 18:41 [From Darvocet-N 100] tamsulosin HCl [From Flomax] Allergy Anaphylaxis Verified 01/11/24 18:41 Physical Exam Vitals: Vital Signs Temp Pulse Pulse Resp BP BP Pulse Ox 01/12/24 15:38 100 01/12/24 15:27 102 H 01/12/24 08:08 100 01/12/24 08:00 97.8 F 102 H 16 112/68 92 L 01/12/24 07:54 96 01/12/24 03:06 97.7 F 99 18 108/54 91 L 01/12/24 01:54 99 01/12/24 00:00 97.3 F L 76 18 110/55 91 L 01/11/24 23:57 90 18 123/66 93 L 01/11/24 20:04 99.0 F 99 17 123/66 93 L Intake and Output 01/12/24 01/12/24 01/12/24 06:59 14:59 22:59 Intake Total 257 500 Output Total 600 Balance -343 500 Intake: IV 20 20 Invasive Line 1 10 10 Invasive Line 2 10 10 Oral 237 480 Output: Urine 600 Other: Voiding Method Indwelling Catheter Indwelling Catheter # Bowel Movements 1 1 Weight 73 kg Results 01/12/24 09:33 01/12/24 09:33 Cardiac Enzymes 01/12/24 Range/Units 09:33 AST 23 (17-59) U/L CBC 01/12/24 Range/Units 09:33 WBC 9.3 (3.8-10.6) k/uL RBC 3.52 L (4.30-5.90) m/uL Hgb 11.4 L (13.0-17.5) gm/dL Hct 36.8 L (39.0-53.0) % Plt Count 126 L (150-450) k/uL Comprehensive Metabolic Panel 01/12/24 Range/Units 09:33 Sodium 135 L (137-145) mmol/L Potassium 4.5 (3.5-5.1) mmol/L Chloride 101 (98-107) mmol/L Carbon Dioxide 31 H (22-30) mmol/L BUN 27 H (9-20) mg/dL Creatinine 1.02 (0.66-1.25) mg/dL Glucose 100 H (74-99) mg/dL Calcium 7.9 L (8.4-10.2) mg/dL AST 23 (17-59) U/L ALT 11 (4-49) U/L Alkaline Phosphatase 155 H (38-126) U/L Total Protein 4.8 L (6.3-8.2) g/dL Albumin 2.6 L (3.5-5.0) g/dL Current Medications Generic Name Dose Route Start Last Admin Trade Name Freq PRN Reason Stop Dose Admin Acetaminophen 650 mg 01/12/24 06:00 01/12/24 17:11 Acetaminophen Tab 325 Mg Tab PO 650 mg Q6HR KALEY Administration Albuterol/Ipratropium 3 ml 01/12/24 02:00 01/12/24 15:27 Ipratropium-Albuterol 3 Ml Neb INHALATION 3 ml RT-Q6H KALEY Administration Albuterol/Ipratropium 3 ml 01/12/24 01:43 Ipratropium-Albuterol 3 Ml Neb INHALATION RT-Q2H PRN Shortness Of Breath Or Wheezing Amiodarone HCl 200 mg 01/13/24 09:00 Amiodarone 200 Mg Tab PO DAILY KALEY Bisacodyl 10 mg 01/12/24 01:16 Bisacodyl 10 Mg Supp RECTAL DAILY PRN Constipation Cyclobenzaprine HCl 5 mg 01/12/24 01:16 Cyclobenzaprine 5 Mg Tab PO Q8H PRN Muscle Spasm Dapagliflozin 10 mg 01/12/24 08:00 01/12/24 09:14 Dapagliflozin Propanediol 10 Mg Tablet PO 10 mg DAILY@0800 KALEY Administration Digoxin 125 mcg 01/12/24 06:00 01/12/24 06:35 Digoxin 125 Mcg Tab PO 125 mcg DAILY@0600 KALEY Administration Furosemide 40 mg 01/12/24 17:45 01/12/24 18:14 Furosemide 10 Mg/Ml 4 Ml Vial IV 40 mg DAILY KALEY Administration Gabapentin 300 mg 01/12/24 08:00 01/12/24 17:11 Gabapentin 300 Mg Cap PO 300 mg TID@0800,1200,1700 KALEY Administration Guaifenesin 600 mg 01/12/24 09:00 01/12/24 09:14 Guaifenesin 600 Mg Tablet.Er PO 600 mg Q12HR KALEY Administration Cefepime HCl 2 gm/ Sodium 100 mls @ 25 mls/hr 01/12/24 14:00 01/12/24 14:11 Chloride IVPB 25 mls/hr Q8H KALEY Administration Protocol Vancomycin HCl 1,250 mg/ 250 mls @ 125 mls/hr 01/13/24 00:00 Sodium Chloride IVPB Q16H KALEY Tranexamic Acid/Sodium 100 mls @ 200 mls/hr 01/12/24 13:57 Chloride 1,000 mg/ IV Solution IVPB 01/14/24 13:56 Q2HR PRN INTRA-OP Protocol Magnesium Hydroxide 2,400 mg 01/12/24 09:00 Magnesium Hydroxide 2,400 Mg/30 Ml Cup PO DIRECTED PRN 2 days no bm Metoprolol Succinate 12.5 mg 01/12/24 17:45 01/12/24 18:14 Metoprolol Succinate (Er) 25 Mg Tab.Er.24h PO 12.5 mg DAILY KALEY Administration Midodrine 5 mg 01/12/24 07:30 Midodrine 5 Mg Tab PO AC-TID PRN SBP<90 Miscellaneous Information 1 each 01/12/24 12:29 Vancomycin Iv Per Pharmacy 1 Each Misc MISCELLANE DIRECTED PRN Per Protocol Protocol Naloxone HCl 0.2 mg 01/11/24 15:22 Naloxone 0.4 Mg/Ml 1 Ml Vial IV Q2M PRN Opioid Reversal Senna/Docusate Sodium 1 each 01/12/24 08:00 01/12/24 17:11 Sennosides-Docusate Sodium 1 Each Tab PO 1 each BID@0800,1700 KALEY Administration Sertraline HCl 200 mg 01/12/24 08:00 01/12/24 09:14 Sertraline 100 Mg Tab PO 200 mg DAILY@0800 KALEY Administration Sodium Biphosphate/Sodium Phosphate 133 ml 01/12/24 09:00 Na Phos,M-B/Na Phos,Di-Ba 133 Ml Enema RECTAL DAILY PRN Constipation Temazepam 7.5 mg 01/12/24 21:00 Temazepam 7.5 Mg Cap PO HS@2100 KALEY Intake and Output 01/12/24 01/12/24 01/12/24 06:59 14:59 22:59 Intake Total 257 500 Output Total 600 Balance -343 500 Intake: IV 20 20 Invasive Line 1 10 10 Invasive Line 2 10 10 Oral 237 480 Output: Urine 600 Other: Voiding Method Indwelling Catheter Indwelling Catheter # Bowel Movements 1 1 Weight 73 kg 01/12/24 09:33 01/12/24 09:33
[2024-01-12] MEDS ORDERED: APIXABAN 5 MG TAB PO SCH (21:00)
--- NOTE | 2024-01-12 21:06 | P.CONS ---
History of Present Illness - Reason for Consult Consult date: 01/12/24 Infected back incision Requesting physician: Juanpablo Whitaker - Chief Complaint Weakness and drainage from the lumbar incision x few days - History of Present Illness This is a telehealth visit Patient is a 83-year-old male with a past medical history significant for CVA TIA hypertension hyperlipidemia atrial fibrillation prostate disorder patient is status post lumbar fusion surgery completed on 12/27/2023 and subsequently patient has been sent to the [facility] for [facility] patient has been sent to the ER yesterday concerning for possible sepsis and a bnormal vitals apparently patient was noticed to be hypotensive as well as hypoxic requiring supplemental oxygen and noted to have breakdown around incision of his lumbar spine and the patient complaining of weakness in the leg and generalized weakness, patient denies high-grade fever or chills and no fever have been recorded on presentation to the hospital except low-grade fever of 99 F patient denies having any chest pain or shortness of breath very minimal cough no nausea no vomiting no abdominal pain no diarrhea patient did have some dull aching pain to the lumbar incision area without any radiation and minimal drainage patient did have a white count of 8.9 on presentation the hospital creatinine was 0.97 liver enzymes are normal procalcitonin 0.17 urine has been negative patient did have chest x-ray findings suggestive of mild congestive heart failure lumbar spine CT did shows interval changes of the fusion from L1- L5 S1 alignment to be within normal limit did not mention any collection patient was started on Rocephin azithromycin for possible pneumonia infectious disease was consulted concerning for surgical site infection Review of Systems Positive point and negatives has been mentioned in the HPI, complete review of systems was performed and all other systems are negative Past Medical History Past Medical History: Atrial Fibrillation, Cancer, CVA/TIA, GERD/Reflux, Hearing Disorder / Deafness, Hyperlipidemia, Osteoarthritis (OA), Prostate Disorder Additional Past Medical History / Comment(s): Tinnitus, Hx kidney stones, BPH, LUNG SCARRING. 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 Colon CA dx end 2023 History of Any Multi-Drug Resistant Organisms: None Reported Past Surgical History: Adenoidectomy, Back Surgery, Ear Surgery, Heart Catheter ization, Joint Replacement, Tonsillectomy Additional Past Surgical History / Comment(s): Oral surgery, diana knee replacements, partial thyroidectomy, diana cataracts. EGD, COLONOSCOPY cardioversion, spinal decompression for lumbar fx Past Anesthesia/Blood Transfusion Reactions: No Reported Reaction Past Psychological History: Anxiety Smoking Status: Former smoker Past Alcohol Use History: None Reported Additional Past Alcohol Use History / Comment(s): quit smoking 1986, started smoking age 17 Past Drug Use History: None Reported - Past Family History Mother Family Medical History: No Reported History Additional Family Medical History / Comment(s): . Medications and Allergies Home Medications Medication Instructions Recorded Confirmed Type Sertraline HCl [Zoloft] 200 mg PO DAILY@0800 10/30/13 01/11/24 History Temazepam [Restoril] 7.5 mg PO HS@2100 12/25/23 01/11/24 History guaiFENesin SYRUP 100MG/5ML 200 mg PO Q4H PRN 12/25/23 01/11/24 History [Robitussin] Acetaminophen Tab [Tylenol] 650 mg PO Q6HR tab 01/03/24 01/11/24 Rx Ipratropium-Albuterol Nebulize 3 ml INHALATION RT-Q2H PRN each 01/03/24 01/11/24 Rx [Duoneb 0.5 mg-3 mg/3 ml Soln] Amiodarone [Cordarone] 200 mg PO BID@0800,1700 01/11/24 01/11/24 History Apixaban [Eliquis] 2.5 mg PO BID@0800,1700 01/11/24 01/11/24 History Cyclobenzaprine [Flexeril] 5 mg PO Q8H PRN 01/11/24 01/11/24 History Dapagliflozin Propanediol [Farxiga] 10 mg PO DAILY@0800 01/11/24 01/11/24 History Digoxin [Lanoxin] 125 mcg PO DAILY@0600 01/11/24 01/11/24 History Ensure Enlive 237 ml PO TID@0800,1200,1700 01/11/24 01/11/24 History Gabapentin [Neurontin] 300 mg PO TID@0800,1200,1700 01/11/24 01/11/24 History Ipratropium-Albuterol Nebulize 3 ml INHALATION RT-Q6H 01/11/24 01/11/24 History [Duoneb 0.5 mg-3 mg/3 ml Soln] Magnesium Hydroxide [Milk of 7,200 mg PO DIRECTED PRN 01/11/24 01/11/24 Histo ry Magnesia Concentrate] Midodrine [ProAmatine] 5 mg PO AC-TID PRN 01/11/24 01/11/24 History Na Phos,M-B/Na Phos,Di-Ba [Fleet 133 ml RECTAL DAILY PRN 01/11/24 01/11/24 History Adult] Sennosides/Docusate Sodium [Senna 1 tab PO BID@0800,1700 01/11/24 01/11/24 History Plus 8.6-50 mg Tablet] bisacodyL [Dulcolax] 10 mg RECTAL DAILY PRN 01/11/24 01/11/24 History Allergies Allergy/AdvReac Type Severity Reaction Status Date / Time hydrocodone [From Lortab] Allergy SEVERE Verified 01/11/24 18:41 ABDOMINAL AND TROUBLE BREATHING hydrocodone bitartrate Allergy Anaphylaxis Verified 01/11/24 18:41 [From Vicodin] Penicillins Allergy Anaphylaxis Verified 01/11/24 18:41 propoxyphene napsylate Allergy Anaphylaxis Verified 01/11/24 18:41 [From Darvocet-N 100] tamsulosin HCl [From Flomax] Allergy Anaphylaxis Verified 01/11/24 18:41 Physical Exam Vitals: Vital Signs Temp Pulse Pulse Resp BP BP Pulse Ox 01/12/24 08:08 100 01/12/24 07:54 96 01/12/24 03:06 97.7 F 99 18 108/54 91 L 01/12/24 01:54 99 01/12/24 00:00 97.3 F L 76 18 110/55 91 L 01/11/24 23:57 90 18 123/66 93 L 01/11/24 20:04 99.0 F 99 17 123/66 93 L 01/11/24 18:15 98 19 109/64 93 L 01/11/24 17:11 100 18 111/59 91 L 01/11/24 15:48 77 19 110/58 97 01/11/24 14:30 80 20 124/74 93 L 01/11/24 13:30 80 19 123/64 94 L 01/11/24 12:00 80 16 116/56 95 01/11/24 11:52 19 01/11/24 11:33 98.1 F 101 H 19 116/59 90 L Intake and Output 01/11/24 01/12/24 01/12/24 22:59 06:59 14:59 Intake Total 257 180 Output Total 200 600 Balance -200 -343 180 Intake: IV 20 Invasive Line 1 10 Invasive Line 2 10 Oral 237 180 Output: Urine 200 600 Uretheral (Mulligan) 200 Other: Voiding Method Indwelling Catheter # Bowel Movements 1 Weight 73 kg Elderly male lying in the bed in no distress No tachypnea or accessory muscle respiration use Unlabored breathing Most of the incision is intact with jose manuel in place minimal drainage on the dressing was noticed Patient is awake alert oriented x 3 Results CBC & Chem 7: 01/12/24 09:33 01/12/24 09:33 Labs: Abnormal Lab Results - Last 24 Hours (Table) 01/11/24 01/11/24 01/11/24 Range/Units 12:13 12:13 15:39 RBC 3.56 L (4.30-5.90) m/uL Hgb 11.6 L (13.0-17.5) gm/dL Hct 36.8 L (39.0-53.0) % MCV 103.3 H (80.0-100.0) fL Plt Count 138 L (150-450) k/uL Neutrophils # (1.3-7.7) k/uL Lymphocytes # 0.5 L (1.0-4.8) k/uL Sodium 135 L (137-145) mmol/L Carbon Dioxide 34 H (22-30) mmol/L BUN 29 H (9-20) mg/dL Glucose 101 H (74-99) mg/dL Calcium 8.0 L (8.4-10.2) mg/dL Alkaline Phosphatase 128 H (38-126) U/L Total Protein 5.0 L (6.3-8.2) g/dL Albumin 2.8 L (3.5-5.0) g/dL Urine Protein Trace H (Negative) Urine Glucose (UA) 1+ H (Negative) 01/12/24 Range/Units 09:33 RBC 3.52 L (4.30-5.90) m/uL Hgb 11.4 L (13.0-17.5) gm/dL Hct 36.8 L (39.0-53.0) % MCV 104.6 H (80.0-100.0) fL Plt Count 126 L (150-450) k/uL Neutrophils # 8.4 H (1.3-7.7) k/uL Lymphocytes # 0.4 L (1.0-4.8) k/uL Sodium (137-145) mmol/L Carbon Dioxide (22-30) mmol/L BUN (9-20) mg/dL Glucose (74-99) mg/dL Calcium (8.4-10.2) mg/dL Alkaline Phosphatase (38-126) U/L Total Protein (6.3-8.2) g/dL Albumin (3.5-5.0) g/dL Urine Protein (Negative) Urine Glucose (UA) (Negative) Assessment and Plan (1) Wound infection after surgery Current Visit: Yes Status: Acute Code(s): T81.49XA - INFECTION FOLLOWING A PROCEDURE, OTHER SURGICAL SITE, INIT SNOMED Code(s): 60675582 (2) Penicillin allergy Current Visit: No Status: Acute Code(s): Z88.0 - ALLERGY STATUS TO PENICILLIN SNOMED Code(s): 32012388 Plan: 1patient presented to hospital with generalized weakness also complaining of discomfort to the lumbar surgical site with minimal drainage concerning for possible lumbar surgical site infection superficial versus deep and will need to cover for the resistant gram-positive as well as gram-negative pathogen. 2patient with a penicillin allergy that will limit the number of antibiotics safe to use. 3we will discontinue Rocephin and Zithromax as procalcitonin is normal clinically behaving as pneumonia. 4we will start the patient on cefepime and vancomycin while waiting for the workup to be completed We will follow on clinical condition and cultures to further adjust medication if needed Thank you for this consultation we will follow the patient along with you Dictation was produced using [employer] dictation software. please excuse any grammatical, word or spelling errors. Time with Patient: Greater than 30
[2024-01-12] MEDS: TEMAZEPAM 7.5 MG CAP PO SCH (21:30)
[2024-01-12] MEDS: VANCOMYCIN 1,250 MG in SODIUM CHLORIDE 0.9% 250 ML IVPB SCH (23:06)
[2024-01-13 06:58] LABS: Basophils % (A) 0 %; Eosinophils # (A) 0.2 k/uL (0-0.7); Eosinophils % (A) 3 %; HCT 37.5 % (39.0-53.0); HGB 11.3 gm/dL (13.0-17.5); Hypochromasia Marked; Lymphocytes # (A) 0.4 k/uL (1.0-4.8); Lymphocytes % (A) 7 %; MCH 31.7 pg (25.0-35.0); MCHC 30.2 g/dL (31.0-37.0); MCV 105.1 fL (80.0-100.0); Macrocytosis Moderate; Mean Platelet Volume 8.5; Monocytes # (A) 0.3 k/uL (0-1.0); Monocytes % (A) 5 %; Neutrophils # (A) 5.3 k/uL (1.3-7.7); Neutrophils % (A) 85 %; Poikilocytosis Slight; RBC 3.57 m/uL (4.30-5.90); RDW 14.5 % (11.5-15.5); WBC 6.3 k/uL (3.8-10.6)
[2024-01-13 07:18] LABS: ALT 12 U/L (4-49); African American GFR (CKD) 78 (>60 ml/min/1.73 sqM); Anion Gap 1 mmol/L; Blood Urea Nitrogen 31 mg/dL (9-20); Calcium 7.7 mg/dL (8.4-10.2); Carbon Dioxide 34 mmol/L (22-30); Chloride 101 mmol/L (98-107); Glucose 91 mg/dL (74-99); Non-African American GFR(CKD) 68 (>60 ml/min/1.73 sqM); Sodium 136 mmol/L (137-145)
--- NOTE | 2024-01-13 07:25 | P.PN ---
Progress Note - Text Progress Note Date: 01/13/24 Spine Surgery Clinical and Risk Review Nick Vora is a 83-year-old male presenting for evaluation of wound dehiscence lumbar spine status post open treatment lumbar fracture. It was my pleasure to have seen and examined Nick Vora. In our visit today we have had a chance to go over subjective complaints, physical examination findings and treatments including the natural course history without intervention and various interventional options. The patients imaging demonstrates stable posterior stabilization and fixation of L2-3 fracture. On physical exam, trial 6 demonstrates wound dehiscence due to pressure ulceration. I have explained to the patient that as their condition progresses it will cause further neurological deficits and eventual paralysis. Based on the patients imaging, physical exam, and the rapid progression and disabling nature of their symptoms, at this time I recommend surgery in the form or a: Irrigation debridement lumbar spine wounds. I discussed the risk and benefits of this procedure at length with Nick Vora and his Sadia Vora. The patient and his Sadia Vora agreed to considered pursuing the procedure abovementioned. Prior to surgery, she should follow up with her PCP (Cardio, ID, IM etc) for clearance. Questions were invited and answered, and the patient wishes to proceed as outlined below. Currently, I am recommendin. Lumbar wounds irrigation debridement 2. Follow up with PCP for surgical clearance 3. Review of surgical risks and benefits as well as an educational packet on the proposed surgical procedure. Risks: All surgical procedures come with inherent risks, including those related to positioning, anesthesia, intraoperative findings, and postoperative complications. It is important to understand that surgery does not come with any guarantee of a successful outcome as complications and adverse events are always possible. The patient was given a handout in office today discussing the surgical procedure and risks associated with the intervention, both of which were discussed with the patient. These risks include but are not limited to the following: Experiencing same, different or even worse symptoms in back, neck, arms, or legs compared to before surgery. Requiring further surgery or other forms of treatment presently or at some time in the future at same or other levels of the intended spine surgery. On an extreme but fortunately relatively rare basis severe complica tion such as blindness, stroke, heart attack, temporary and/or permanent nerve injury, paralysis, coma, or may occur, sometimes without known explanation. Surgical complications may include but are not limited to risk of infection, fluid accumulation in the surgical dissection site, including a seroma or hematoma, that requires additional surgery, wound drainage, bleeding, new numbness or weakness, vision changes/loss, spinal fluid leakage, non-healing and/or infected incision, headaches, difficulty or inability to swallow, hoarseness, hemopneumothorax, pneumothorax, impotence, retrograde ejaculation, vaginal dryness; injury to nerves, spinal cord, blood vessels, lymphatics or other vital organs (i.e., bowel injury, injury to the great vessels); heterotopic bone formation; complications related to the hardware such as screws, rods, cages including misplaced hardware, device failure, instrumentation at the wrong spine level, hardware fracture/breakage, or hardware loosening; vertebral failure of the spinal column above or below the newly placed hardware; retained surgical instrumentations or devices and the need for further surgery. Medical risks of the planned spine surgery include but are not limited to generalized Infections to the whole body or local areas outside of the surgical site (sepsis), heart attack, bleeding, anaphylaxis, meningitis, seizure , epilepsy, hearing loss, burn ybarra, laceration of the head or other areas of the body, bruising, hypersensitivity of the skin, bladder over distension; allergic reaction; shoulder injury related to positioning; fat, blood and air clots to other areas of the body like heart, lungs, brain; failure of internal organs such as lungs, kidneys, liver and excessive bleeding. If blood transfusions are necessary, note that transfusions may cause intolerance reactions such as anaphylaxis or other complex reactions. Despite best efforts, the results of spine surgery might not heal in terms of bone, soft tissues such as skin, fascia, ligaments, and joints. Additionally, in order to achieve best possible results, spine surgery may be carried out beyond the initially planned levels and involve decompression, fusion including insertion of hardware at levels other than the original intended area of surgical interest change some portions of the procedure in order to ensure the best possible outcomes. With spine surgery and spinal fusion, there are different off label uses of instrumentation (devices, implants and hardware) as well as biological substances (bone morphogenic proteins, demineralized bone matrix) as well as using extra bone from allograft sources (i.e. cadaver bone) or autograft (iliac crest bone, ribs, or the spine itself). The patient has been given information about these practices and their inherent risks and benefits. The patient has had a chance to review all the listed information, has been given print outs detailing this information, and has had all his/her questions answered to their satisfaction. It was my pleasure to have seen and examined Nick Vora. In our visit today we have had a chance to go over my understanding of our patient's current condi tion, the natural course history without intervention and various interventional options. Questions were invited and answered, and the patient wishes to proceed as outlined above. I have seen and examined the patient for 25 minutes and we have spent more than 50% of the time in repeat and detailed counseling about the patient's condition, its natural course history with out and as much as can be p redicted with surgery and re-review of various surgical treatment options. In conclusion, Nick Vora and his Sadia Vora requested we proceed with the above suggested surgery and are willing to accept risks and limitations of the suggested surgery as nature of the disease process and our best attempts at treatment for the condition. Thank you again for allowing us to be part of your patient's care. Please don't hesitate to contact me if you have any further questions. Signed and authenticated by: Chucho Ortez [facility] [address] [facility], [address] [address]
[2024-01-13 07:27] LABS: Platelet Count 97 k/uL (150-450)
[2024-01-13 07:49] LABS: AST 37 U/L (17-59); Albumin 2.6 g/dL (3.5-5.0); Alkaline Phosphatase 114 U/L (38-126); Potassium 4.8 mmol/L (3.5-5.1); Total Protein 4.9 g/dL (6.3-8.2)
[2024-01-13] MEDS: AMIODARONE 200 MG TAB PO SCH (08:12)
[2024-01-13] MEDS: IV FLUID CONTINUATION 1,000 ML IV ONE (09:24)
[2024-01-13] MEDS ORDERED: ETOMIDATE 2 MG/ML 10 ML VIAL ONE (09:59)
[2024-01-13] MEDS ORDERED: GLYCOPYRROLATE 0.2 MG/ML 2 ML VIAL ONE (09:59)
[2024-01-13] MEDS ORDERED: fentaNYL (PF) 50 MCG/ML 2 ML AMP ONE (09:59)
[2024-01-13] MEDS ORDERED: PHENYLEPHRINE-0.9% NACL SYG 1,000 MCG/10 ML SYRINGE ONE (09:59)
[2024-01-13] MEDS ORDERED: SUCCINYLCHOLINE CHLORIDE 200 MG/10 ML VIAL IV ONE (09:59)
[2024-01-13] MEDS ORDERED: ROCURONIUM 10 MG/ML (5 ML VIAL) IV ONE (09:59)
[2024-01-13] MEDS ORDERED: ONDANSETRON 4 MG/2 ML VIAL ONE (09:59)
[2024-01-13] MEDS ORDERED: LIDOCAINE 1% INJ 10MG/ML (20 ML MDV) ONE (09:59)
[2024-01-13] MEDS ORDERED: NEOSTIGMINE 1 MG/ML 10 ML VIAL ONE (09:59)
[2024-01-13] MEDS ORDERED: ALBUMIN HUMAN 5% (12.5gm) 250 ML BOTTLE IVPB ONE (09:59)
[2024-01-13] MEDS: VANCOMYCIN 1,000 MG VIAL MISCELLANE ONE (10:48)
[2024-01-13] MEDS: LIDOCAINE 2%-EPI 1:100,000 20 ML VIAL SQ ONE (10:48)
[2024-01-13] MEDS: BUPIVACAINE (PF) 0.5% 30 ML VIAL SQ ONE (10:49)
--- NOTE | 2024-01-13 11:39 | P.PN ---
Progress Note - Text Progress Note Date: 01/13/24 BRIEF POST OP NOTE: DX: LUMBAR WOUND DEHISCENCE PROCEDURE: LUMBAR WOUNDS I&D COMPLICATION: NONE DISPO: STABLE TO PACU EBL: 75 CC FLUIDS: 1000 CC URINE: 1000 CC ANESTHESIA: GETA POST OP PLAN: ENCOURAGE AMBULATION OK FOR UP AND ABOUT WITH ASSIST TURN Q2 KEEP PRESSURE OFF LUMBAR WOUNDS GI/DVT PPX PAIN CONTROL PRN PT/OT DAILY MAINTAIN GOOD hygiene, METICULUS CLEANING AFTER BM
[2024-01-13] MEDS ORDERED: ONDANSETRON 4 MG/2 ML VIAL IVP PRN (12:02)
[2024-01-13] MEDS: HYDROmorphone 0.5 MG/0.5 ML SYRINGE IVP PRN (12:14)
[2024-01-13 13:33] LABS: Erythrocyte Sedimentation Rate 26 mm/Hr (0-20)
--- NOTE | 2024-01-13 14:30 | P.PN ---
Subjective HISTORY OF PRESENT ILLNESS: This is an 83-year-old man who follows in the office with Dr. Alvares. Patient presented to the hospital with a chief complaint of shortness of breath and also skin breakdown from his surgical wound on his back. Patient is status post wound debridement today with orthopedics. Eliquis remains on hold. Patient is also on IV Lasix. He denies shortness of breath. Denies chest pain or pressure. Vital signs are stable. Telemetry reveals atrial fibrillation with controlled ventricular rate. PHYSICAL EXAM: VITAL SIGNS: Reviewed. GENERAL: Well-developed in no acute distress. NECK: Supple. No JVD or thyromegaly LUNGS: Respirations even and unlabored. Lungs essentially clear to auscultation bilaterally. HEART: Irregular rate and rhythm. S1 and S2 heard. EXTREMITIES: Normal range of motion. No clubbing or cyanosis. Peripheral pulses intact. No lower extremity edema ASSESSMENT: Shortness of breath Acute on chronic heart failure with reduced EF Wound dehiscence status post recent back surgery Cardiomyopathy, suspected to be nonischemic from atrial fibrillation Persistent atrial fibrillation Mild coronary artery disease, prior cardiac catheterization 2013 History of GENARO and cardioversion History of A-fib ablation, 2018 Moderate to severe pulmonary hypertension Colon adenocarcinoma, diagnosed in October PLAN: Discontinue IV Lasix. Begin oral Lasix 40 mg daily Continue additional cardiac medications Resume Eliquis starting tomorrow morning Further recommendations pending patient course Patient to follow-up postdischarge with Dr. Alvares Nurse practitioner note has been reviewed by physician. Signing provider agrees with the documented findings, assessment, and plan of care documented by EDUCATION AND TRAINING COORDINATOR as a scribe. Objective - Vital Signs Vital signs: Vital Signs Temp 97.4 F L 01/13/24 08:11 Pulse 90 01/13/24 09:37 Resp 18 01/13/24 09:37 BP 109/64 01/13/24 09:37 Pulse Ox 97 01/13/24 09:37 FiO2 Intake & Output 01/12/24 01/13/24 01/13/24 18:59 06:59 18:59 Intake Total 770 640 250 Output Total 1000 1075 Balance 024 -368 -331 Weight 70 kg Intake: IV 40 250 Invasive Line 1 20 Invasive Line 2 20 Intake, IV Titration 100 Amount Cefepime 2 gm In Sodium 100 Chloride 0.9% 100 ml @ 25 mls/hr IVPB Q8H [facility] Rx#: [id number] Oral 730 540 Output: Urine 1000 1000 Estimated Blood Loss 75 Other: Voiding Method Indwelling Catheter Indwelling Catheter Indwelling Catheter # Bowel Movements 1 - Labs CBC & Chem 7: 01/13/24 06:44 01/13/24 06:44 Labs: Abnormal Lab Results - Last 24 Hours (Table) 01/13/24 01/13/24 Range/Units 06:44 06:44 RBC 3.57 L (4.30-5.90) m/uL Hgb 11.3 L (13.0-17.5) gm/dL Hct 37.5 L (39.0-53.0) % MCV 105.1 H (80.0-100.0) fL MCHC 30.2 L (31.0-37.0) g/dL Plt Count 97 L (150-450) k/uL Lymphocytes # 0.4 L (1.0-4.8) k/uL Sodium 136 L (137-145) mmol/L Carbon Dioxide 34 H (22-30) mmol/L BUN 31 H (9-20) mg/dL Calcium 7.7 L (8.4-10.2) mg/dL Total Protein 4.9 L (6.3-8.2) g/dL Albumin 2.6 L (3.5-5.0) g/dL Microbiology - Last 24 Hours (Table) 01/11/24 15:36 Blood Culture - Preliminary Blood
--- NOTE | 2024-01-13 17:22 | P.PN ---
Subjective Progress Note Date: 01/13/24 Nick Vora, is an 83-year-old male currently in rehab at [facility] who was sent to [facility] emergency room, for worsening shortness of breath decreased O2 saturation, hypotension, generalized weakness and erythema skin breakdown or from back surgical wound. He was evaluated in the emergency room vital examination on presentation revealed a temperature of 98.1 pulse 101 respiration 19 blood pressure 116/59 pulse ox 90% on 5 L nasal cannula Laboratory data revealed a white blood count of 8.9 hemoglobin 11.6 platelet count 138 BUN 29 creatinine 0.97 troponin 0.012 BNP 1470 Testing in the emergency room revealed EKG revealed sinus rhythm with first- degree AV block, CT scan of the lumbar spine revealed evidence of recent fusion L1-L5. Chest x-ray revealed findings suggestive of congestive heart failure, infiltrates of other etiology not excluded. Patient was admitted to medical floor for further evaluation and treatment Past medical history is significant for history of hypertension, history of hyperlipidemia, history of paroxysmal atrial fibrillation, history of benign prostatic hypertrophy, history of decreased hearing, history of invasive colonic adenocarcinoma patient will need surgical intervention in the near future after he is medically stable, history of recent back surgery with lumbar fusion. On review of systems patient is alert and oriented x 3 in no apparent distress there is no fever or chills no headache or dizziness no chest pain he has some s hortness of breath with any activity there is no cough no nausea or vomiting no abdominal pain no diarrhea no constipation no blood in the stools no burning with urination no frequency or urgency and no hematuria. On 01/13/2024, patient was seen and examined on the medical floor he is alert and oriented in no apparent distress, he underwent lumbar wounds I&D today with Dr. Ashton, there is no fever or chills no headache or dizziness no chest pain no shortness of breath no cough no nausea or vomiting no abdominal pain no diarrhea and no urinary symptoms white blood count is 6.3 hemoglobin 11.3 platelet count 97 BUN 31 creatinine 1.03 Objective - Vital Signs Vital signs: Vital Signs Temp 97.3 F L 01/13/24 11:50 Pulse 85 01/13/24 15:47 Resp 17 01/13/24 15:10 BP 112/56 01/13/24 15:10 Pulse Ox 94 L 01/13/24 14:34 FiO2 Intake & Output 01/12/24 01/13/24 01/13/24 18:59 06:59 18:59 Intake Total 770 640 450 Output Total 1000 1075 Balance 777 -879 -313 Weight 70 kg 70 kg Intake: IV 40 450 Invasive Line 1 20 Invasive Line 2 20 Intake, IV Titration 100 Amount Cefepime 2 gm In Sodium 100 Chloride 0.9% 100 ml @ 25 mls/hr IVPB Q8H [facility] Rx#: [id number] Oral 730 540 Output: Urine 1000 1000 Estimated Blood Loss 75 Other: Voiding Method Indwelling Catheter Indwelling Catheter Indwelling Catheter # Bowel Movements 1 - Exam In general patient is alert and oriented x 3 in no distress HEENT head normocephalic and atraumatic Neck is supple no JVD no goiter no lymphadenopathy no carotid bruit Chest examination reveals a scattered crackles bilaterally no wheezing Cardiac exam reveals regular heart sounds S1 and S2 no gallops no murmurs Abdomen is soft nontender no organomegaly with normal bowel sounds Extremity exam reveals no edema no cyanosis or clubbing Back exam reveals mild erythema around the surgical wound with mild tenderness Neurological examination reveals generalized weakness with no gross focal deficits - Labs CBC & Chem 7: 01/13/24 06:44 01/13/24 06:44 Labs: Abnormal Lab Results - Last 24 Hours (Table) 01/12/24 01/13/24 01/13/24 Range/Units 09:33 06:44 06:44 RBC 3.57 L (4.30-5.90) m/uL Hgb 11.3 L (13.0-17.5) gm/dL Hct 37.5 L (39.0-53.0) % MCV 105.1 H (80.0-100.0) fL MCHC 30.2 L (31.0-37.0) g/dL Plt Count 97 L (150-450) k/uL Lymphocytes # 0.4 L (1.0-4.8) k/uL ESR 26 H (0-20) mm/Hr Sodium 136 L (137-145) mmol/L Carbon Dioxide 34 H (22-30) mmol/L BUN 31 H (9-20) mg/dL Calcium 7.7 L (8.4-10.2) mg/dL Total Protein 4.9 L (6.3-8.2) g/dL Albumin 2.6 L (3.5-5.0) g/dL Microbiology - Last 24 Hours (Table) 01/11/24 15:36 Blood Culture - Preliminary Blood Assessment and Plan Plan: Acute exacerbation of systolic congestive heart failure Cardiomyopathy with ejection fraction 25 to 30% on echocardiogram done on 09/07/2023 Worsening shortness of breath and decreased O2 saturation likely related to congestive heart failure Mild erythema and tenderness in the lumbar surgical wound site Underlying history of paroxysmal atrial fibrillation Underlying history of hypertension Underlying history of hyperlipidemia Underlying history of colon adenocarcinoma patient will need surgery when medically stable Physical debility Moderate to severe protein calorie malnutrition At this time patient was seen and examined Home medications reviewed and reordered Consultation for infectious disease, cardiology, and orthopedic surgery initiated For DVT prophylaxis, patient is on Eliquis Prognosis is guarded will follow closely
[2024-01-13] MEDS: CEFEPIME 2 GM in SODIUM CHLORIDE 0.9% 100 ML IVPB SCH (17:43)
[2024-01-13] MEDS ORDERED: HYDROcodone/APAP 7.5-325MG 1 EACH TAB PO PRN (20:40)
[2024-01-13] MEDS: traMADol 50 MG TAB PO PRN (20:57)
[2024-01-14 06:59] LABS: Basophils % (A) 0 %; Eosinophils # (A) 0.2 k/uL (0-0.7); Eosinophils % (A) 2 %; HCT 35.2 % (39.0-53.0); HGB 10.6 gm/dL (13.0-17.5); Hypochromasia Marked; Lymphocytes # (A) 0.4 k/uL (1.0-4.8); Lymphocytes % (A) 5 %; MCH 31.7 pg (25.0-35.0); MCHC 30.1 g/dL (31.0-37.0); MCV 105.3 fL (80.0-100.0); Macrocytosis Moderate; Monocytes # (A) 0.5 k/uL (0-1.0); Monocytes % (A) 6 %; Neutrophils # (A) 6.8 k/uL (1.3-7.7); Neutrophils % (A) 86 %; Platelet Count 114 k/uL (150-450); Poikilocytosis Slight; RBC 3.34 m/uL (4.30-5.90); RDW 14.4 % (11.5-15.5); WBC 7.9 k/uL (3.8-10.6)
[2024-01-14 07:16] LABS: ALT 72 U/L (4-49); AST 133 U/L (17-59); African American GFR (CKD) 58 (>60 ml/min/1.73 sqM); Albumin 2.5 g/dL (3.5-5.0); Alkaline Phosphatase 334 U/L (38-126); Anion Gap 1 mmol/L; Blood Urea Nitrogen 32 mg/dL (9-20); Calcium 7.6 mg/dL (8.4-10.2); Carbon Dioxide 37 mmol/L (22-30); Chloride 98 mmol/L (98-107); Glucose 87 mg/dL (74-99); Non-African American GFR(CKD) 50 (>60 ml/min/1.73 sqM); Sodium 136 mmol/L (137-145); Total Bilirubin 0.8 mg/dL (0.2-1.3); Total Protein 4.5 g/dL (6.3-8.2)
--- NOTE | 2024-01-14 07:33 | P.PN ---
Subjective Progress Note Date: 01/14/24 Principal diagnosis: Wound dehiscence lumbar Patient seen and examined doing fairly well this morning states some pain in his low back however this is likely incisional states some burning. He denies any other issues denies fevers chills shortness of breath or chest pain. The patient is eating breakfast very comfortably. He answers all questions appropriately. Objective - Vital Signs Vital signs: Vital Signs Temp 97.4 F L 01/14/24 03:38 Pulse 73 01/14/24 03:38 Resp 19 01/14/24 03:38 BP 97/51 01/14/24 03:38 Pulse Ox 92 L 01/14/24 03:38 FiO2 Intake & Output 01/13/24 01/14/24 01/14/24 18:59 06:59 18:59 Intake Total 450 280 Output Total 2075 750 Balance -1625 -470 Weight 70 kg 76 kg Intake: IV 450 40 Invasive Line 1 20 Invasive Line 2 20 Oral 240 Output: Urine 2000 750 Estimated Blood Loss 75 Other: Voiding Method Indwelling Catheter Indwelling Catheter - Exam Patient is alert and oriented 3 appears well-nourished well-hydrated is in no acute distress. They do not appear septic. On exam the patient has no tenderness to palpation of her thoracic or lumbar spine. There is no edema or ballottement sign. Incisions are clean dry and intact dressings clean dry and intact at this time no erythema ecchymosis or edema Lower extremities with 4 -/5 strength in all major muscle groups * Patient has good dorsiflexion plantarflexion EHL FHL he has difficulty with knee flexion extension and hip flexion secondary to his debility and his current condition however he has shown some improvements in this. Upper extremities show 4+/5 strength in all major muscle groups. * This is relatively normal for this patient no focal deficits [2]/4DTR all UE and LE b/l Patient shows a negative Homans, Casas's, negative Babinski's negative clonus bilaterally. negative straight leg raise bilaterally. No tensioning signs. Cranial nerves II through XII are grossly intact. There is FROM that is painless of the b/l UE and LE in all major joints [w/o pain]. They are intact to light touch sensation in L2 to S1 nerve distribution. Patient has palpable dorsalis pedis was posterior tibial pulses. Compartments are soft and compressible. - Labs CBC & Chem 7: 01/14/24 06:02 01/14/24 06:02 Labs: Abnormal Lab Results - Last 24 Hours (Table) 01/12/24 01/13/24 01/14/24 Range/Units 09:33 06:44 06:02 RBC 3.34 L (4.30-5.90) m/uL Hgb 10.6 L (13.0-17.5) gm/dL Hct 35.2 L (39.0-53.0) % MCV 105.3 H (80.0-100.0) fL MCHC 30.1 L (31.0-37.0) g/dL Plt Count 114 L (150-450) k/uL Lymphocytes # 0.4 L (1.0-4.8) k/uL ESR 26 H (0-20) mm/Hr Sodium 136 L (137-145) mmol/L Carbon Dioxide 34 H (22-30) mmol/L BUN 31 H (9-20) mg/dL Creatinine (0.66-1.25) mg/dL Calcium 7.7 L (8.4-10.2) mg/dL AST (17-59) U/L ALT (4-49) U/L Alkaline Phosphatase (38-126) U/L Total Protein 4.9 L (6.3-8.2) g/dL Albumin 2.6 L (3.5-5.0) g/dL 01/14/24 Range/Units 06:02 RBC (4.30-5.90) m/uL Hgb (13.0-17.5) gm/dL Hct (39.0-53.0) % MCV (80.0-100.0) fL MCHC (31.0-37.0) g/dL Plt Count (150-450) k/uL Lymphocytes # (1.0-4.8) k/uL ESR (0-20) mm/Hr Sodium 136 L (137-145) mmol/L Carbon Dioxide 37 H (22-30) mmol/L BUN 32 H (9-20) mg/dL Creatinine 1.32 H (0.66-1.25) mg/dL Calcium 7.6 L (8.4-10.2) mg/dL AST 133 H (17-59) U/L ALT 72 H (4-49) U/L Alkaline Phosphatase 334 H (38-126) U/L Total Protein 4.5 L (6.3-8.2) g/dL Albumin 2.5 L (3.5-5.0) g/dL Microbiology - Last 24 Hours (Table) 01/11/24 15:36 Blood Culture - Preliminary Blood Assessment and Plan Assessment: Postop day 1 lumbar spine irrigation debridement with wound revision and closure Lumbar wound dehiscence due to pressure ulceration Plan: * Encourage ambulation with assist * PT OT daily * Turn every 2 relief pressure on the low back is much as possible do not allow patient to lay on back for longer than 1 hour at a time. * Up to chair with assist * All meals out of bed * Pain control as needed * GI DVT prophylaxis as appropriate * Continue antibiotics await surgical cultures, if positive ID consult for superficial infection * We will follow patient during his clinical course.
[2024-01-14] MEDS: FUROSEMIDE 40 MG TAB PO SCH (08:43)
[2024-01-14] MEDS: APIXABAN 5 MG TAB PO SCH (08:44)
[2024-01-14] MEDS: IPRATROPIUM-ALBUTEROL 3 ML NEB INHALATION SCH (08:45)
--- NOTE | 2024-01-14 10:26 | P.PN ---
Subjective Progress Note Date: 01/14/24 Nick Vora, is an 83-year-old male currently in rehab at [facility] who was sent to [facility] emergency room, for worsening shortness of breath decreased O2 saturation, hypotension, generalized weakness and erythema skin breakdown or from back surgical wound. He was evaluated in the emergency room vital examination on presentation revealed a temperature of 98.1 pulse 101 respiration 19 blood pressure 116/59 pulse ox 90% on 5 L nasal cannula Laboratory data revealed a white blood count of 8.9 hemoglobin 11.6 platelet count 138 BUN 29 creatinine 0.97 troponin 0.012 BNP 1470 Testing in the emergency room revealed EKG revealed sinus rhythm with first- degree AV block, CT scan of the lumbar spine revealed evidence of recent fusion L1-L5. Chest x-ray revealed findings suggestive of congestive heart failure, infiltrates of other etiology not excluded. Patient was admitted to medical floor for further evaluation and treatment Past medical history is significant for history of hypertension, history of hyperlipidemia, history of paroxysmal atrial fibrillation, history of benign prostatic hypertrophy, history of decreased hearing, history of invasive colonic adenocarcinoma patient will need surgical intervention in the near future after he is medically stable, history of recent back surgery with lumbar fusion. On review of systems patient is alert and oriented x 3 in no apparent distress there is no fever or chills no headache or dizziness no chest pain he has some s hortness of breath with any activity there is no cough no nausea or vomiting no abdominal pain no diarrhea no constipation no blood in the stools no burning with urination no frequency or urgency and no hematuria. On 01/13/2024, patient was seen and examined on the medical floor he is alert and oriented in no apparent distress, he underwent lumbar wounds I&D today with Dr. Ashton, there is no fever or chills no headache or dizziness no chest pain no shortness of breath no cough no nausea or vomiting no abdominal pain no diarrhea and no urinary symptoms white blood count is 6.3 hemoglobin 11.3 platelet count 97 BUN 31 creatinine 1.03 On 01/14/2024 patient's alert and oriented. Increased oxygen demands. Will consult pulmonary services infectious disease, cardiology, orthopedic services and pulmonary services have all been consulted. Patient remains on Maxipime and Comycin. Patient has been transitioned to p.o. Lasix per cardiology. Current vital signs temp 98.0, heart rate 91, respiratory rate 16, blood pressure 92/54 with a pulse ox of 94% on 13 L high flow Objective - Vital Signs Vital signs: Vital Signs Temp 98 F 01/14/24 08:00 Pulse 84 01/14/24 09:00 Resp 16 01/14/24 08:00 BP 92/54 01/14/24 08:00 Pulse Ox 94 L 01/14/24 08:45 FiO2 Intake & Output 01/13/24 01/14/24 01/14/24 18:59 06:59 18:59 Intake Total 450 280 Output Total 2071 750 Balance -0856 -182 Weight 70 kg 76 kg Intake: IV 450 40 Invasive Line 1 20 Invasive Line 2 20 Oral 240 Output: Urine 2000 750 Estimated Blood Loss 75 Other: Voiding Method Indwelling Catheter Indwelling Catheter - Exam In general patient is alert and oriented x 3 in no distress HEENT head normocephalic and atraumatic Neck is supple no JVD no goiter no lymphadenopathy no carotid bruit Chest examination reveals a scattered crackles bilaterally no wheezing Cardiac exam reveals regular heart sounds S1 and S2 no gallops no murmurs Abdomen is soft nontender no organomegaly with normal bowel sounds Extremity exam reveals no edema no cyanosis or clubbing Back exam reveals mild erythema around the surgical wound with mild tenderness Neurological examination reveals generalized weakness with no gross focal deficits - Labs CBC & Chem 7: 01/14/24 06:02 01/14/24 06:02 Labs: Abnormal Lab Results - Last 24 Hours (Table) 01/12/24 01/14/24 01/14/24 Range/Units 09:33 06:02 06:02 RBC 3.34 L (4.30-5.90) m/uL Hgb 10.6 L (13.0-17.5) gm/dL Hct 35.2 L (39.0-53.0) % MCV 105.3 H (80.0-100.0) fL MCHC 30.1 L (31.0-37.0) g/dL Plt Count 114 L (150-450) k/uL Lymphocytes # 0.4 L (1.0-4.8) k/uL ESR 26 H (0-20) mm/Hr Sodium 136 L (137-145) mmol/L Carbon Dioxide 37 H (22-30) mmol/L BUN 32 H (9-20) mg/dL Creatinine 1.32 H (0.66-1.25) mg/dL Calcium 7.6 L (8.4-10.2) mg/dL AST 133 H (17-59) U/L ALT 72 H (4-49) U/L Alkaline Phosphatase 334 H (38-126) U/L Total Protein 4.5 L (6.3-8.2) g/dL Albumin 2.5 L (3.5-5.0) g/dL Microbiology - Last 24 Hours (Table) 01/11/24 15:36 Blood Culture - Preliminary Blood Assessment and Plan Plan: Acute exacerbation of systolic congestive heart failure Cardiomyopathy with ejection fraction 25 to 30% on echocardiogram done on 09/07/2023 Worsening shortness of breath and decreased O2 saturation likely related to congestive heart failure Mild erythema and tenderness in the lumbar surgical wound site Underlying history of paroxysmal atrial fibrillation Underlying history of hypertension Underlying history of hyperlipidemia Underlying history of colon adenocarcinoma patient will need surgery when medically stable Physical debility Moderate to severe protein calorie malnutrition At this time patient was seen and examined Home medications reviewed and reordered Consultation for infectious disease, cardiology, and orthopedic surgery initiated For DVT prophylaxis, patient is on Eliquis Prognosis is guarded will follow closely
--- NOTE | 2024-01-14 12:45 | P.PN ---
Subjective HISTORY OF PRESENT ILLNESS: This is an 83-year-old man who follows in the office with Dr. Alvares. Patient presented to the hospital with a chief complaint of shortness of breath and also skin breakdown from his surgical wound on his back. Patient is status post wound debridement today with orthopedics. Eliquis remains on hold. Patient is also on IV Lasix. He denies shortness of breath. Denies chest pain or pressure. Vital signs are stable. Telemetry reveals atrial fibrillation with controlled ventricular rate. 01/14/2024 Patient examined this morning at bedside. Patient currently denies chest pain or pressure. He denies shortness of breath. He remains on high flow nasal cannula 13 L. Telemetry reveals sinus mechanism PHYSICAL EXAM: VITAL SIGNS: Reviewed. GENERAL: Well-developed in no acute distress. NECK: Supple. No JVD or thyromegaly LUNGS: Respirations even and unlabored. Lungs essentially clear to auscultation bilaterally. HEART: Irregular rate and rhythm. S1 and S2 heard. EXTREMITIES: Normal range of motion. No clubbing or cyanosis. Peripheral pulses intact. No lower extremity edema ASSESSMENT: Shortness of breath Acute on chronic heart failure with reduced EF, currently euvolemic Wound dehiscence status post recent back surgery Cardiomyopathy, suspected to be nonischemic from atrial fibrillation Paroxysmal atrial fibrillation, currently maintaining sinus mechanism Mild coronary artery disease, prior cardiac catheterization 2013 History of GENARO and cardioversion History of A-fib ablation, 2019 Moderate to severe pulmonary hypertension Colon adenocarcinoma, diagnosed in October PLAN: Continue oral diuretics Continue additional cardiac medications Eliquis resumed this morning No further inpatient recommendations from a cardiac standpoint We will sign off. Please reconsult if needed. Patient to follow-up postdischarge with Dr. Alvares Nurse practitioner note has been reviewed by physician. Signing provider agrees with the documented findings, assessment, and plan of care documented by COMPUGRAPH OPERATOR as a scribe. Objective - Vital Signs Vital signs: Vital Signs Temp 98 F 01/14/24 08:00 Pulse 84 01/14/24 09:00 Resp 16 01/14/24 08:00 BP 92/54 01/14/24 08:00 Pulse Ox 94 L 01/14/24 08:45 FiO2 Intake & Output 01/13/24 01/14/24 01/14/24 18:59 06:59 18:59 Intake Total 450 280 20 Output Total 2075 750 Balance -1625 -470 20 Weight 70 kg 76 kg Intake: IV 450 40 20 Invasive Line 1 20 10 Invasive Line 2 20 10 Oral 240 Output: Urine 2000 750 Estimated Blood Loss 75 Other: Voiding Method Indwelling Catheter Indwelling Catheter Indwelling Catheter - Labs CBC & Chem 7: 01/14/24 06:02 01/14/24 06:02 Labs: Abnormal Lab Results - Last 24 Hours (Table) 01/12/24 01/14/24 01/14/24 Range/Units 09:33 06:02 06:02 RBC 3.34 L (4.30-5.90) m/uL Hgb 10.6 L (13.0-17.5) gm/dL Hct 35.2 L (39.0-53.0) % MCV 105.3 H (80.0-100.0) fL MCHC 30.1 L (31.0-37.0) g/dL Plt Count 114 L (150-450) k/uL Lymphocytes # 0.4 L (1.0-4.8) k/uL ESR 26 H (0-20) mm/Hr Sodium 136 L (137-145) mmol/L Carbon Dioxide 37 H (22-30) mmol/L BUN 32 H (9-20) mg/dL Creatinine 1.32 H (0.66-1.25) mg/dL Calcium 7.6 L (8.4-10.2) mg/dL AST 133 H (17-59) U/L ALT 72 H (4-49) U/L Alkaline Phosphatase 334 H (38-126) U/L Total Protein 4.5 L (6.3-8.2) g/dL Albumin 2.5 L (3.5-5.0) g/dL Microbiology - Last 24 Hours (Table) 01/11/24 15:36 Blood Culture - Preliminary Blood
--- NOTE | 2024-01-14 13:30 | P.PN ---
Subjective Progress Note Date: 01/14/24 Principal diagnosis: Reason for follow-up is possible lumbar surgical site infection Patient is a 83-year-old male with a past medical history significant for CVA TIA hypertension hyperlipidemia atrial fibrillation prostate disorder patient is status post lumbar fusion surgery completed on 12/27/2023 has been brought back to the hospital concerning for drainage from his lumbar incision and concerning for surgical site infection.Patient was taken to the OR morning of 01/13/2024 and is status post lumbar wound I&D and cultures. On today's evaluation that is 01/14/2024, patient has been afebrile, patient is breathing comfortably however is requiring high flow nasal oxygen patient denies having any significant cough no chest pain, patient denies nausea vomiting or diarrhea and no abdominal pain, denies any worsening pain to the lower back. Patient white count 7.9, creatinine 1.32 cultures are currently pending Objective - Vital Signs Vital signs: Vital Signs Temp 98 F 01/14/24 08:00 Pulse 84 01/14/24 09:00 Resp 16 01/14/24 08:00 BP 92/54 01/14/24 08:00 Pulse Ox 94 L 01/14/24 08:45 FiO2 Intake & Output 01/13/24 01/14/24 01/14/24 18:59 06:59 18:59 Intake Total 450 280 20 Output Total 2075 750 Balance -1625 -470 20 Weight 70 kg 76 kg Intake: IV 450 40 20 Invasive Line 1 20 10 Invasive Line 2 20 10 Oral 240 Output: Urine 2000 750 Estimated Blood Loss 75 Other: Voiding Method Indwelling Catheter Indwelling Catheter - Exam GENERAL DESCRIPTION: An elderly male lying in bed in no distress RESPIRATORY SYSTEM: Unlabored breathing , decreased breath sounds at bases HEART: S1 S2 regular rate and rhythm , ABDOMEN: Soft , no tenderness EXTREMITIES: No edema feet - Labs CBC & Chem 7: 01/14/24 06:02 01/14/24 06:02 Labs: Abnormal Lab Results - Last 24 Hours (Table) 01/12/24 01/14/24 01/14/24 Range/Units 09:33 06:02 06:02 RBC 3.34 L (4.30-5.90) m/uL Hgb 10.6 L (13.0-17.5) gm/dL Hct 35.2 L (39.0-53.0) % MCV 105.3 H (80.0-100.0) fL MCHC 30.1 L (31.0-37.0) g/dL Plt Count 114 L (150-450) k/uL Lymphocytes # 0.4 L (1.0-4.8) k/uL ESR 26 H (0-20) mm/Hr Sodium 136 L (137-145) mmol/L Carbon Dioxide 37 H (22-30) mmol/L BUN 32 H (9-20) mg/dL Creatinine 1.32 H (0.66-1.25) mg/dL Calcium 7.6 L (8.4-10.2) mg/dL AST 133 H (17-59) U/L ALT 72 H (4-49) U/L Alkaline Phosphatase 334 H (38-126) U/L Total Protein 4.5 L (6.3-8.2) g/dL Albumin 2.5 L (3.5-5.0) g/dL Microbiology - Last 24 Hours (Table) 01/11/24 15:36 Blood Culture - Preliminary Blood Assessment and Plan (1) Wound infection after surgery Current Visit: Yes Status: Acute Code(s): T81.49XA - INFECTION FOLLOWING A PROCEDURE, OTHER SURGICAL SITE, INIT SNOMED Code(s): 80280411 (2) Penicillin allergy Current Visit: No Status: Acute Code(s): Z88.0 - ALLERGY STATUS TO PENICILLIN SNOMED Code(s): 08639153 Plan: 1patient presented to hospital with generalized weakness also complaining of discomfort to the lumbar surgical site with minimal drainage concerning for po ssible lumbar surgical site infection superficial versus deep and will need to cover for the resistant gram-positive as well as gram-negative pathogen. 2patient with a penicillin allergy that will limit the number of antibiotics safe to use. 3patient is status post I&D of his lumbar incision and cultures which are currently pending 4patient remains to be afebrile white count has been normal inflammatory markers are not significantly elevated we will o continue with cefepime and vancomycin while waiting for the culture to finalize. Dictation was produced using [employer] software. please excuse any grammatical, word or spelling errors. Time with Patient: Less than 30
--- NOTE | 2024-01-14 13:30 | P.PN ---
Subjective Progress Note Date: 01/13/24 Principal diagnosis: Reason for follow-up is possible lumbar surgical site infection Patient is a 83-year-old male with a past medical history significant for CVA TIA hypertension hyperlipidemia atrial fibrillation prostate disorder patient is status post lumbar fusion surgery completed on 12/27/2023 has been brought back to the hospital concerning for drainage from his lumbar incision and concerning for surgical site infection.Patient was taken to the OR morning of 01/13/2024 and is status post lumbar wound I&D and cultures. On today's evaluation that is 01/13/2024 patient has been afebrile patient is currently sleepy lethargic postsurgery and is requiring 9 L nasal cannula oxygen no vomiting or diarrhea has been reported. Patient did have a white count of 6.3 ESR is 26 creatinine is 1.03 Objective - Vital Signs Vital signs: Vital Signs Temp 97.4 F L 01/13/24 08:11 Pulse 90 01/13/24 09:37 Resp 18 01/13/24 09:37 BP 109/64 01/13/24 09:37 Pulse Ox 97 01/13/24 09:37 FiO2 Intake & Output 01/12/24 01/13/24 01/13/24 18:59 06:59 18:59 Intake Total 770 640 Output Total 1000 Balance 770 -360 Weight 70 kg Intake: IV 40 Invasive Line 1 20 Invasive Line 2 20 Intake, IV Titration 100 Amount Cefepime 2 gm In Sodium 100 Chloride 0.9% 100 ml @ 25 mls/hr IVPB Q8H [facility] Rx#: [id number] Oral 730 540 Output: Urine 1000 Other: Voiding Method Indwelling Catheter Indwelling Catheter Indwelling Catheter # Bowel Movements 1 - Exam GENERAL DESCRIPTION: An elderly male lying in bed in no distress RESPIRATORY SYSTEM: Unlabored breathing , decreased breath sounds at bases HEART: S1 S2 regular rate and rhythm , ABDOMEN: Soft , no tenderness EXTREMITIES: No edema feet - Labs CBC & Chem 7: 01/14/24 06:02 01/14/24 06:02 Labs: Abnormal Lab Results - Last 24 Hours (Table) 01/12/24 01/12/24 01/13/24 Range/Units 09:33 09:33 06:44 RBC 3.52 L 3.57 L (4.30-5.90) m/uL Hgb 11.4 L 11.3 L (13.0-17.5) gm/dL Hct 36.8 L 37.5 L (39.0-53.0) % MCV 104.6 H 105.1 H (80.0-100.0) fL MCHC 30.2 L (31.0-37.0) g/dL Plt Count 126 L 97 L (150-450) k/uL Neutrophils # 8.4 H (1.3-7.7) k/uL Lymphocytes # 0.4 L 0.4 L (1.0-4.8) k/uL Sodium 135 L (137-145) mmol/L Carbon Dioxide 31 H (22-30) mmol/L BUN 27 H (9-20) mg/dL Glucose 100 H (74-99) mg/dL Calcium 7.9 L (8.4-10.2) mg/dL Alkaline Phosphatase 155 H (38-126) U/L C-Reactive Protein 5.5 H (<1.0) mg/dL Total Protein 4.8 L (6.3-8.2) g/dL Albumin 2.6 L (3.5-5.0) g/dL 01/13/24 Range/Units 06:44 RBC (4.30-5.90) m/uL Hgb (13.0-17.5) gm/dL Hct (39.0-53.0) % MCV (80.0-100.0) fL MCHC (31.0-37.0) g/dL Plt Count (150-450) k/uL Neutrophils # (1.3-7.7) k/uL Lymphocytes # (1.0-4.8) k/uL Sodium 136 L (137-145) mmol/L Carbon Dioxide 34 H (22-30) mmol/L BUN 31 H (9-20) mg/dL Glucose (74-99) mg/dL Calcium 7.7 L (8.4-10.2) mg/dL Alkaline Phosphatase (38-126) U/L C-Reactive Protein (<1.0) mg/dL Total Protein 4.9 L (6.3-8.2) g/dL Albumin 2.6 L (3.5-5.0) g/dL Microbiology - Last 24 Hours (Table) 01/11/24 15:36 Blood Culture - Preliminary Blood Assessment and Plan (1) Wound infection after surgery Current Visit: Yes Status: Acute Code(s): T81.49XA - INFECTION FOLLOWING A PROCEDURE, OTHER SURGICAL SITE, INIT SNOMED Code(s): 49945636 (2) Penicillin allergy Current Visit: No Status: Acute Code(s): Z88.0 - ALLERGY STATUS TO PENICIL MIREYA SNOMED Code(s): 69588990 Plan: 1patient presented to hospital with generalized weakness also complaining of discomfort to the lumbar surgical site with minimal drainage concerning for possible lumbar surgical site infection superficial versus deep and will need to cover for the resistant gram-positive as well as gram-negative pathogen. 2patient with a penicillin allergy that will limit the number of antibiotics safe to use. 3patient is status post I&D of his lumbar incision and cultures which are currently pending 4patient to continue with cefepime and vancomycin while waiting for the culture to finalize. at the bedside questions answered Dictation was produced using [employer] dictation software. please excuse any grammatical, word or spelling errors. Time with Patient: Less than 30
--- NOTE | 2024-01-14 15:58 | XR ---
EXAMINATION TYPE: XR chest 1V DATE OF EXAM: 01/14/2024 3:49 PM COMPARISON: Chest radiographs from 01/11/2024 CLINICAL INDICATION: Male, 83 years old with history of hypoxia; [facility] TECHNIQUE: XR chest 1V Frontal view of the chest. FINDINGS: Lungs/Pleura: No evidence of focal consolidation or pneumothorax. Blunting of the costophrenic angles is present. Pulmonary vascularity: Pulmonary vascular congestion. Heart/mediastinum: Cardiomediastinal silhouette is enlarged. Musculoskeletal: No acute osseous pathology. IMPRESSION: Cardiomegaly, pulmonary vascular congestion and bilateral pleural effusions. Correlate with BNP for c ongestive heart failure. [facility], , 01/14/2024 3:56 PM
--- NOTE | 2024-01-14 16:07 | CDI ---
Documentation Clarification Form Date: 01/14/2024 03:36:44 PM From: Mikki Blunt RN CCDS Phone: [phone] Admit Date: 01/11/2024 03:45:00 PM Patient Name: Nick Vora Visit Number: [id number] Discharge Date: ATTENTION: The Clinical Documentation Specialists (CDI) and [facility] Coding Staff appreciate your assistance in clarifying documentation. Please respond to the clarification below the line at the bottom and electronically sign. The CDI & [facility] Coding staff will review the response and follow-up if needed. Please note: Queries are made part of the Legal Health Record. If you have any questions, please contact the author of this message via ITS. Doctor: Juan C Beltran Conflicting documentation has been found in the medical record. As attending physician, please provide clarification. Moderate to severe protein calorie malnutrition, documented in medicine notes 01/11 01/13. History/Risk Factors: 83 year old male presents to the ED from [facility] for shortness of breath decreased oxygen saturation, generalized weakness and skin breakdown oor from back surgical wound. Medical History: Recent weight loss of more than 100lbs, extremely week, colon CA, and GERD 01/11, [place] Clinical Indicators: Nutritional assessment 01/12: Physical findings: unstageable pressure injury to back Weight 70kg standing scale, Height 6ft 2in BMI 19.8, Calculated ideal weight 86.4kg Estimated Nutritional Needs: Kcals: Energy formula for estimated Nutritonal needs 30-35 Kcals/Kg Energy Needs [id number] kcals Protein: Estimated Protein Range 1.2 1.5g/kg Estimated Protein Needs 84/105 grams/day Nutritional Intake: Increased nutrient needs: protein, vitamin c, zinc sulfate Diagnostic: Related to wound healing, as evidenced by unstageable back pressure inury Treatment: Ensure Plus High protein QD, Jorge QD, Monitor supplement tolerance and intake, Monitor PO intake. Please clarify which diagnosis is most appropriate: [xxx ] Severe protein calorie malnutrition [ ] Moderate protein calorie malnutrition [ ] Other (please specify) [ ] Unable to determine (Template Last Revised: April 2020) MTDD
--- NOTE | 2024-01-14 16:32 | P.CNPUL ---
History of Present Illness Consult date: 01/14/24 Reason for consult: hypoxemia History of present illness: 84-year-old male patient admitted back to the hospital on 01/12/2024 from [facility] following a distance of a surgical incision to the lumbar spine. The wound edges were not approximated and pulling away from the incision. There was also mild to moderate amount of serous drainage identified for that reason the patient was brought into the hospital. The patient is status post open reduction to fixation of an L2-L3 with minimal invasive stabilization of L1 S1 and L2 L4 laminectomy. The patient underwent incision and drainage and the patient is currently on a combination of cefepime and vancomycin. Cultures are still negative for now. The patient is hemodynamically stable. During this current admission, the patient had progressive worsening in his oxygen requirements and the patient is currently on 11 L/min nasal cannula and for that reason the pulmonary cavitation was requested. I ordered a stat chest x-ray and this was completed and the patient has interstitial edema and bilateral pleural effusion right more than left. He has a weak cough. No reported aspiration. The patient has pulm vessel congestion/CHF. The patient is currently on oral Lasix. Blood work shows a white cell count of 7.9 with a hemoglobin 10.6 and a platelet count of 114. BUN 32 with a creatinine of 1.3 current serum bicarb is at 37 and sodium levels at 136. Procalcitonin level is at 0.17. He has a Mulligan catheter in place and is producing adequate amount of urine output. Fluid balance has been -2 L over the past 24 hours. Past Medical History Past Medical History: Atrial Fibrillation, Cancer, CVA/TIA, GERD/Reflux, Hearing Disorder / Deafness, Hyperlipidemia, Osteoarthritis (OA), Prostate Disorder Additional Past Medical History / Comment(s): Tinnitus, Hx kidney stones, BPH, LUNG SCARRING. 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 Colon CA dx end of 2023 History of Any Multi-Drug Resistant Organisms: None Reported Past Surgical History: Adenoidectomy, Back Surgery, Ear Surgery, Heart Catheterization, Joint Replacement, Tonsillectomy Additional Past Surgical History / Comment(s): Oral surgery, diana knee replacements, partial thyroidectomy, diana cataracts. EGD, COLONOSCOPY cardioversion, spinal decompression for lumbar fx Past Anesthesia/Blood Transfusion Reactions: No Reported Reaction Past Psychological History: Anxiety Smoking Status: Former smoker Past Alcohol Use History: None Reported Additional Past Alcohol Use History / Comment(s): quit smoking 1986, started smoking age 17 Past Drug Use History: None Reported - Past Family History Mother Family Medical History: No Reported History Additional Family Medical History / Comment(s): . Medications and Allergies Home Medications Medication Instructions Recorded Confirmed Type Sertraline HCl [Zoloft] 200 mg PO DAILY@0800 10/30/13 01/11/24 History Temazepam [Restoril] 7.5 mg PO HS@2100 12/25/23 01/11/24 History guaiFENesin SYRUP 100MG/5ML 200 mg PO Q4H PRN 12/25/23 01/11/24 History [Robitussin] Acetaminophen Tab [Tylenol] 650 mg PO Q6HR tab 01/03/24 01/11/24 Rx Ipratropium-Albuterol Nebulize 3 ml INHALATION RT-Q2H PRN each 01/03/24 01/11/24 Rx [Duoneb 0.5 mg-3 mg/3 ml Soln] Amiodarone [Cordarone] 200 mg PO BID@0800,1700 01/11/24 01/11/24 History Apixaban [Eliquis] 2.5 mg PO BID@0800,1700 01/11/24 01/11/24 History Cyclobenzaprine [Flexeril] 5 mg PO Q8H PRN 01/11/24 01/11/24 History Dapagliflozin Propanediol [Farxiga] 10 mg PO DAILY@0800 01/11/24 01/11/24 History Digoxin [Lanoxin] 125 mcg PO DAILY@0600 01/11/24 01/11/24 History Ensure Enlive 237 ml PO TID@0800,1200,1700 01/11/24 01/11/24 History Gabapentin [Neurontin] 300 mg PO TID@0800,1200,1700 01/11/24 01/11/24 History Ipratropium-Albuterol Nebulize 3 ml INHALATION RT-Q6H 01/11/24 01/11/24 History [Duoneb 0.5 mg-3 mg/3 ml Soln] Magnesium Hydroxide [Milk of 7,200 mg PO DIRECTED PRN 01/11/24 01/11/24 History Magnesia Concentrate] Midodrine [ProAmatine] 5 mg PO AC-TID PRN 01/11/24 01/11/24 History Na Phos,M-B/Na Phos,Di-Ba [Fleet 133 ml RECTAL DAILY PRN 01/11/24 01/11/24 Hist ory Adult] Sennosides/Docusate Sodium [Senna 1 tab PO BID@0800,1700 01/11/24 01/11/24 History Plus 8.6-50 mg Tablet] bisacodyL [Dulcolax] 10 mg RECTAL DAILY PRN 01/11/24 01/11/24 History Allergies Allergy/AdvReac Type Severity Reaction Status Date / Time hydrocodone [From Lortab] Allergy SEVERE Verified 01/11/24 18:41 ABDOMINAL AND TROUBLE BREATHING hydrocodone bitartrate Allergy Anaphylaxis Verified 01/11/24 18:41 [From Vicodin] Penicillins Allergy Anaphylaxis Verified 01/11/24 18:41 propoxyphene napsylate Allergy Anaphylaxis Verified 01/11/24 18:41 [From Darvocet-N 100] tamsulosin HCl [From Flomax] Allergy Anaphylaxis Verified 01/11/24 18:41 Physical Exam Vitals: Vital Signs Temp Pulse Pulse Resp BP Pulse Ox 01/14/24 12:18 89 01/14/24 12:06 90 01/14/24 12:00 92 16 99/49 90 L 01/14/24 09:00 84 01/14/24 08:45 80 94 L 01/14/24 08:00 98 F 91 16 92/54 01/14/24 03:38 97.4 F L 73 19 97/51 92 L 01/13/24 23:42 97.7 F 94 19 100/55 93 L 01/13/24 21:20 92 01/13/24 21:07 88 01/13/24 20:37 98/57 01/13/24 19:30 97.5 F L 70 20 99/50 91 L 01/13/24 17:43 97.5 F L 87 16 103/51 92 L Intake and Output 01/14/24 01/14/24 01/14/24 06:59 14:59 22:59 Intake Total 20 40 Balance 20 40 Intake: IV 20 40 Invasive Line 1 10 20 Invasive Line 2 10 20 Other: Voiding Method Indwelling Catheter Indwelling Catheter Weight 76 kg GENERAL EXAM: Alert, 83-year-old male, on 11 L nasal cannula, resting in bed, comfortable in no apparent distress. The patient looks quite debilitated and lethargic. Arousable and he is able to communicate. No signs of any obvious respiratory distress. HEAD: Normocephalic. EYES: Normal reaction of pupils, equal size. NOSE: Clear with pink turbinates. THROAT: No erythema or exudates. NECK: No masses, no JVD. CHEST: No chest wall deformity. LUNGS: Diminished breath sounds specially lung base bilaterally worse on the right. Scattered crackles heard bibasilarly. No wheezing. CVS: S1 and S2 normal with no audible murmur, regular rhythm. ABDOMEN: No hepatosplenomegaly, normal bowel sounds, no guarding or rigidity. SPINE: Surgical dressing has been applied to the lumbar spine post incision and drainage. No drains. SKIN: No rashes CENTRAL NERVOUS SYSTEM: No focal deficits, tone is normal in all 4 extremities. Generalized motor weakness in all 4 extremities. EXTREMITIES: There is no peripheral edema. No clubbing, no cyanosis. Peripheral pulses are intact. Results - Laboratory Findings CBC and BMP: 01/14/24 06:02 01/14/24 06:02 PT/INR, D-dimer PT 11.0 sec (10.0-12.5) 01/11/24 12:13 INR 1.0 (<1.2) 01/11/24 12:13 Abnormal lab findings: Abnormal Labs 01/11/24 01/11/24 01/11/24 12:13 12:13 15:39 RBC 3.56 L Hgb 11.6 L Hct 36.8 L MCV 103.3 H MCHC Plt Count 138 L Neutrophils # Lymphocytes # 0.5 L ESR Sodium 135 L Carbon Dioxide 34 H BUN 29 H Creatinine Glucose 101 H Calcium 8.0 L AST ALT Alkaline Phosphatase 128 H C-Reactive Protein Total Protein 5.0 L Albumin 2.8 L Urine Protein Trace H Urine Glucose (UA) 1+ H 01/12/24 01/12/24 01/13/24 09:33 09:33 06:44 RBC 3.52 L 3.57 L Hgb 11.4 L 11.3 L Hct 36.8 L 37.5 L MCV 104.6 H 105.1 H MCHC 30.2 L Plt Count 126 L 97 L Neutrophils # 8.4 H Lymphocytes # 0.4 L 0.4 L ESR 26 H Sodium 135 L Carbon Dioxide 31 H BUN 27 H Creatinine Glucose 100 H Calcium 7.9 L AST ALT Alkaline Phosphatase 155 H C-Reactive Protein 5.5 H Total Protein 4.8 L Albumin 2.6 L Urine Protein Urine Glucose (UA) 01/13/24 01/14/24 01/14/24 06:44 06:02 06:02 RBC 3.34 L Hgb 10.6 L Hct 35.2 L MCV 105.3 H MCHC 30.1 L Plt Count 114 L Neutrophils # Lymphocytes # 0.4 L ESR Sodium 136 L 136 L Carbon Dioxide 34 H 37 H BUN 31 H 32 H Creatinine 1.32 H Glucose Calcium 7.7 L 7.6 L AST 133 H ALT 72 H Alkaline Phosphatase 334 H C-Reactive Protein Total Protein 4.9 L 4.5 L Albumin 2.6 L 2.5 L Urine Protein Urine Glucose (UA) - Diagnostic Findings Chest x-ray: image reviewed Assessment and Plan Plan: Acute hypoxic respiratory failure secondary to atelectatic changes in the lung bases in addition to CHF and development of bilateral pleural effusion right more than left. There is a progressive worsening in the oxygenation status and the patient is currently up to 11 L of oxygen by nasal cannula. Pneumonia is doubtful and the patient has been appropriately covered with a combination of cefepime and vancomycin.. Pulmonary embolism is doubtful as the patient is on anticoagulation with Eliquis. fall with fracture to the spine, status post open treatment L2-3 for hyperextension fracture, L1-L4 posterior lateral fusion. Dehiscence of lumbar incisions with suspected infection the patient has undergone an incision and drainage, cultures are negative. Patient is currently on a combination of cefepime and vancomycin. Lumbar wound dehiscence due to pressure ulceration Acute kidney injury and the creatinine is up to 1.3 Chronic atrial fibrillation anticoagulated with Eliquis Chronic systolic heart failure With an ejection fraction 25 to 30% Moderate to severe pulmonary hypertension History of mild coronary artery disease COPD, currently inactive and stable [facility] History of CVA/TIA History of hearing disorder Hyperlipidemia Former smoker Poor functional performance based on the above-mentioned multiple comorbidities, and the patient has generalized motor weakness in all 4 extremities Plan Give Lasix 40 mg IV push x 1 Monitor fluid balance and urine output Monitor creatinine as the patient creatinine is up to 1.3 Attempted titrate FiO2 down, currently on 11 L Provide this patient with an incentive spirometer Ultrasound of the chest and consider thoracentesis if there is sizable effusion Will continue to follow
--- NOTE | 2024-01-14 16:33 | US ---
EXAMINATION TYPE: US chest DATE OF EXAM: 01/14/2024 COMPARISON: XR 01/13/2024 CLINICAL INDICATION: Male, 83 years old with history of Markings for thoracentesis by pulmonary staff ; Pulmonary Effusion Bilateral seen on XR TECHNIQUE: Grayscale imaging of the chest. Targeted ultrasound of the posterior lower FINDINGS: EXAM MEASUREMENTS: Right Pleural Effusion pocket size: 1.2 cm Right skin surface to fluid distance: NA cm Left Pleural Effusion pocket size: NA cm Left skin surface to fluid distance: NA cm No markings left Pulmonologists are able to review the images in the patient?s EMR. IMPRESSIONS: No significant pleural effusion. [facility], , 01/14/2024 4:30 PM
[2024-01-14] MEDS: FUROSEMIDE 10 MG/ML 4 ML VIAL IV STA (16:40)
[2024-01-15 07:10] LABS: African American GFR (CKD) 64 (>60 ml/min/1.73 sqM); Non-African American GFR(CKD) 56 (>60 ml/min/1.73 sqM)
--- NOTE | 2024-01-15 07:43 | P.OP ---
Date of Procedure: 01/13/24 Preoperative Diagnosis: 1. LUMBAR WOUND DEHISCENCE DUE TO PRESSURE ULCERATION 2. COMPLEX MEDICAL PATIENT Postoperative Diagnosis: 1. LUMBAR WOUND DEHISCENCE DUE TO PRESSURE ULCERATION 2. COMPLEX MEDICAL PATIENT Procedure(s) Performed: 1. LUMBAR WOUND I&D 45 x 25 x 10 CM 2. Complex 3 layered wound closure 45 x 25 x 10 cm lumbar spine Implants: NONE Anesthesia: GETA Surgeon: Chucho Ashton [employer] Driver #1: Nikolas Fischer (YESSICA Stiles Was present and assisted with all aspects of the case from positioning to dressing placement) Estimated Blood Loss (ml): 100 IV fluids (ml): 900 Urine output (ml): 250 Pathology: none sent Condition: stable Disposition: PACU Indications for Procedure: Nick Vora is a 83-year-old male presenting for evaluation of wound dehiscenc e lumbar spine status post open treatment lumbar fracture. It was my pleasure to have seen and examined Nick Vora. In our visit today we have had a chance to go over subjective complaints, physi leno examination findings and treatments including the natural course history without intervention and various interventional options. The patients imaging demonstrates stable posterior stabilization and fixation of L2-3 fracture. On physical exam, trial 6 demonstrates wound dehiscence due to pressure ulceration. I have explained to the patient that as their condition progresses it will cause further neurological deficits and eventual paralysis. Based on the patients imaging, physical exam, and the rapid progression and disabling nature of their symptoms, at this time I recommend surgery in the form or a: Irrigation debridement lumbar spine wounds. I discussed the risk and benefits of this procedure at length with Nick Vora and his Sadia Vora. The patient and his Sadia Vora agreed to considered pursuing the procedure abovementioned. Prior to surgery, she should follow up with her PCP (Cardio, ID, IM etc) for clearance. Questions were invited and answered, and the patient wishes to proceed as outlined below. Currently, I am recommendin. Lumbar wounds irrigation debridement Description of Procedure: The patient was seen and examined in the preoperative area. All preoperative protocols were followed. Informed consent was obtained risks and benefits of the procedure were discussed at length. Risks including bleeding infection damage to the surrounding tissue and risk of reoperation were discussed with the patient. Risk of anesthesia up to and including was a discussed with the patient. These are outlined in the risk review. They were willing to accept these risks and all of the risks of surgery. The patient was given a weight-based dose of antibiotics in the form of 2 g Ancef. The patient was seen and evaluated by the anesthesia team who deemed them fit for surgery. The site was marked, the patient was willing to proceed with the procedure. The patient was transferred to the operative suite [facility] They were then drifted off to sleep by the department anesthesia and GETA was performed. The patient tolerated this well. Mulligan catheter was placed by nursing staff, atraumatically. Once confirmation of lines and ventilation the patient was transferred to a prone Tyrone table very carefully. All bony prominences including wrists, elbows, axilla, chest, hips, and thighs, and feet were padded very well. Special attention was paid to the genitalia and these were padded accordingly. SCDs were placed on bilateral lower extremities and were connected. Arms were well padded and placed on arm boards up and out in the 90/90 position. Once in position, again we confirmed good ventilation capabilities and that lines were running appropriately. The patient's lumbar spine was then exposed. 1010s were placed outlining the incision site. Standard alcohol was used to clean the incision site and allowed to dry. C-arm was used to biomark the patient and confirm level for incision which was marked with a skin marker. Operative briefing was performed with all teams and everyone in agreement to proceed. The patient was then prepped and draped in a normal sterile fashion. Timeout was then performed and all parties were in agreement with the procedure to be performed. MIS incisions were ellipticized on the right and left side including the midline incision using a skin knife. Dissection was then taken down and the tracts were removed there was no deep infection noted. Superficial wounds were cultured centrally. We then debrided the wound skin and soft tissue with skin knife curette and irrigant. Irrigant was run through the wounds including antibiotic irrigation Irrisept and Betadine. Once this was accomplished we then closed the wounds using 0 Vicryl in the deep subcu tissue 2-0 Vicryl in the superficial subcu tissue and 2-0 nylon in the skin in a simple fashion. Wound edges approximated very well. Total amount of skin and soft tissue debrided was 45 cm x 25 cm x 10 cm. The wounds were then cleaned and dressed sterilely with Adaptic 4 x 4's ABDs and tape. The patient was transferred back to their hospital bed a-traumatically. Patient was then awakened and extubated by the department of anesthesia having tolerated the procedure very well with no complications. They were transferred to the postoperative care unit in stable condition.
--- NOTE | 2024-01-15 10:47 | P.PN ---
Subjective Progress Note Date: 01/15/24 Principal diagnosis: Status post irrigation debridement lumbar spine with revision wound closure, history of previous L1-L4 posterior lateral fusion/stabilization, multiple medical issues Patient was evaluated today at bedside, he is resting comfortably. Patient remains at his baseline, he continues to have generalized weakness throughout. Patient's back is stable, very minimal discomfort at this time. Dressing remains intact, no acute issues at this time. Culture and sensitivities are showing presumptive MRSA infection, infectious diseases following patient. Patient has no headaches, headedness, chest pain or shortness of breath Objective - Vital Signs Vital signs: Vital Signs Temp 97.3 F L 01/15/24 03:08 Pulse 85 01/15/24 03:08 Resp 20 01/15/24 03:08 BP 95/54 01/15/24 03:08 Pulse Ox 92 L 01/15/24 03:08 FiO2 Intake & Output 01/14/24 01/15/24 01/15/24 18:59 06:59 18:59 Intake Total 40 50 Output Total 1600 Balance 40 -1550 Weight 85 kg Intake: IV 40 50 Invasive Line 1 20 20 Invasive Line 2 20 20 Invasive Line 3 10 Output: Urine 1600 Other: Voiding Method Indwelling Catheter External Catheter - Exam Gen: AOx3, NAD VSS stable at this time Integument: Postop dressing is in good position condition Palpation: Mild tenderness with palpation of the lumbar spine ROM: Full range of motion all major muscle groups of bilateral upper extremities, no focal deficits Bilateral lower extremity motion intact, generalized weakness to all major muscle groups Sensory Exam: Senory exam to light touch is intact C5-T1 Senosry exam to light touch is intact L2-S1 Motor: 3/5 strength appreciated bilateral lower extremities with hip flexion, knee extension, knee flexion, plantarflexion, dorsiflexion, EHL Reflexes: 2/4 in all UE and LE Negative Ochoa's bilaterally Negative clonus bilaterally - Labs CBC & Chem 7: 01/14/24 06:02 01/15/24 06:01 Labs: Microbiology - Last 24 Hours (Table) 01/11/24 15:36 Blood Culture - Preliminary Blood 01/13/24 10:51 Gram Stain - Preliminary Other - Other Wound Culture - Preliminary Presumptive MRSA 01/13/24 10:51 Gram Stain - Preliminary Other - Other Wound Culture - Preliminary Presumptive MRSA Assessment and Plan Assessment: Postoperative day #2 status post irrigation debridement lumbar spine with wound revision closure History of L2-L3 AL type B3 hyperextension injury, L3 AO type A4 burst fracture, chronic L4 AO type III A3 fracture status post kyphoplasty Multiple medical comorbidities Plan: Pain control, continue with current medications DVT prophylaxis per primary medical service Wound care, continue to monitor surgical dressing. If patient is still in hospital on 01/16/2024 will change dressing Patient needs to be laying on his sides avoiding direct contact with the low back, patient can lay on his back for no more than an hour at a time Patient needs to be up in a chair multiple times throughout the day Encourage incentive spirometer PT/OT recommendations Other medical specialty recommendations Discharge planning: Orthopedic standpoint patient is stable for discharge to subacute rehab. Plan for follow-up in the outpatient setting in the next 2 weeks. Please contact service with any further questions
--- NOTE | 2024-01-15 10:54 | P.PN ---
Subjective Progress Note Date: 01/15/24 Nick Vora, is an 83-year-old male currently in rehab at [facility] who was sent to [facility] emergency room, for worsening shortness of breath decreased O2 saturation, hypotension, generalized weakness and erythema skin breakdown or from back surgical wound. He was evaluated in the emergency room vital examination on presentation revealed a temperature of 98.1 pulse 101 respiration 19 blood pressure 116/59 pulse ox 90% on 5 L nasal cannula Laboratory data revealed a white blood count of 8.9 hemoglobin 11.6 platelet count 138 BUN 29 creatinine 0.97 troponin 0.012 BNP 1470 Testing in the emergency room revealed EKG revealed sinus rhythm with first- degree AV block, CT scan of the lumbar spine revealed evidence of recent fusion L1-L5. Chest x-ray revealed findings suggestive of congestive heart failure, infiltrates of other etiology not excluded. Patient was admitted to medical floor for further evaluation and treatment Past medical history is significant for history of hypertension, history of hyperlipidemia, history of paroxysmal atrial fibrillation, history of benign prostatic hypertrophy, history of decreased hearing, history of invasive colonic adenocarcinoma patient will need surgical intervention in the near future after he is medically stable, history of recent back surgery with lumbar fusion. On review of systems patient is alert and oriented x 3 in no apparent distress there is no fever or chills no headache or dizziness no chest pain he has some s hortness of breath with any activity there is no cough no nausea or vomiting no abdominal pain no diarrhea no constipation no blood in the stools no burning with urination no frequency or urgency and no hematuria. On 01/13/2024, patient was seen and examined on the medical floor he is alert and oriented in no apparent distress, he underwent lumbar wounds I&D today with Dr. Ashton, there is no fever or chills no headache or dizziness no chest pain no shortness of breath no cough no nausea or vomiting no abdominal pain no diarrhea and no urinary symptoms white blood count is 6.3 hemoglobin 11.3 platelet count 97 BUN 31 creatinine 1.03 On 01/14/2024 patient's alert and oriented. Increased oxygen demands. Will consult pulmonary services infectious disease, cardiology, orthopedic services and pulmonary services have all been consulted. Patient remains on Maxipime and Comycin. Patient has been transitioned to p.o. Lasix per cardiology. Current vital signs temp 98.0, heart rate 91, respiratory rate 16, blood pressure 92/54 with a pulse ox of 94% on 13 L high flow On 01/15/2024 patient is alert and oriented x 3. Cultures coming back presumptive MRSA. Patient remains on vancomycin and cefepime. Infectious disease, pulmonary, cardiology and orthopedic services are following. Current vital signs temp 97.3, heart rate 85, respiratory rate 20, blood pressure 132/57 with a pulse ox of 92% on 13 L high flow. Patient did receive IV Lasix yesterday. Patient denies chest pain or shortness of breath. Patient denies nausea vomiting or diarrhea. Patient denies any urinary burning or frequency Objective - Vital Signs Vital signs: Vital Signs Temp 97.3 F L 01/15/24 03:08 Pulse 85 01/15/24 03:08 Resp 20 01/15/24 03:08 BP 95/54 01/15/24 03:08 Pulse Ox 92 L 01/15/24 03:08 FiO2 Intake & Output 01/14/24 01/15/24 01/15/24 18:59 06:59 18:59 Intake Total 40 50 10 Output Total 1600 Balance 40 -1550 10 Weight 85 kg Intake: IV 40 50 10 Invasive Line 1 20 20 Invasive Line 2 20 20 Invasive Line 3 10 10 Output: Urine 1600 Other: Voiding Method Indwelling Catheter External Catheter - Exam In general patient is alert and oriented x 3 in no distress HEENT head normocephalic and atraumatic Neck is supple no JVD no goiter no lymphadenopathy no carotid bruit Chest examination reveals a scattered crackles bilaterally no wheezing Cardiac exam reveals regular heart sounds S1 and S2 no gallops no murmurs Abdomen is soft nontender no organomegaly with normal bowel sounds Extremity exam reveals no edema no cyanosis or clubbing Back exam reveals mild erythema around the surgical wound with mild tenderness Neurological examination reveals generalized weakness with no gross focal deficits - Labs CBC & Chem 7: 01/14/24 06:02 01/15/24 06:01 Labs: Microbiology - Last 24 Hours (Table) 01/11/24 15:36 Blood Culture - Preliminary Blood 01/13/24 10:51 Gram Stain - Preliminary Other - Other Wound Culture - Preliminary Presumptive MRSA 01/13/24 10:51 Gram Stain - Preliminary Other - Other Wound Culture - Preliminary Presumptive MRSA Assessment and Plan Plan: Acute exacerbation of systolic congestive heart failure Cardiomyopathy with ejection fraction 25 to 30% on echocardiogram done on 09/07/2023 Worsening shortness of breath and decreased O2 saturation likely related to congestive heart failure Mild erythema and tenderness in the lumbar surgical wound site with wound infection cultures currently growing presumptive MRSA Underlying history of paroxysmal atrial fibrillation Underlying history of hypertension Underlying history of hyperlipidemia Underlying history of colon adenocarcinoma patient will need surgery when med ically stable Physical debility Moderate to severe protein calorie malnutrition At this time patient was seen and examined Home medications reviewed and reordered Consultation for infectious disease, cardiology, and orthopedic surgery initiated For DVT prophylaxis, patient is on Eliquis Prognosis is guarded will follow closely
--- NOTE | 2024-01-15 14:07 | CDI ---
Documentation Clarification Form Date: 01/15/2024 01:29:00 PM From: Mikki Blunt RN CCDS Phone: [phone] Admit Date: 01/11/2024 03:45:00 PM Patient Name: Nick Vora Visit Number: [id number] Discharge Date: ATTENTION: The Clinical Documentation Specialists (CDI) and [facility] Coding Staff appreciate your assistance in clarifying documentation. Please respond to the clarification below the line at the bottom and electronically sign. The CDI & [facility] Coding staff will review the response and follow-up if needed. Please note: Queries are made part of the Legal Health Record. If you have any questions, please contact the author of this message via ITS. Doctor: Chucho Emmanuel debridement is documented on 01/13/2024 unfortunately, some required elements have not been documented. Additional clarification regarding the procedure is requested. History/Risk Factors:83 year old male presents to the ED from Rehab for worsening shortness of breath, generalized weakness and erythema skin breakdown or from back surgical wound. Medical History: Atrial Fibrillation, Cancer, CVA, GERD, Weight loss of over 100lbs, extremely weak. Clinical Indicators: Procedure note:01/13/2024 MIS incisions were ellipticized on the right and left side including the midline incision using a skin knife. Dissection was then taken down and the tracts were removed there was no deep infection noted. Debrided the wound skin and soft tissue with skin knife curette and irrigant. Irrigant was run through the wounds including antibiotic irrigation Irrisept and Betadine. Total amount of skin and soft tissue debrided was 45 cm x 25 cm x 10 cm. Treatment: Instrument: Skin knife, curette Please clarify the procedure performed: [ ] Excisional debridement (the removal of necrotic, devitalized tissue or slough by means of cutting away of tissue) Instrument: Skin knifesandy Nature of the tissue removed ___necrotic dehissed____ Appearance of the wound __pressure ulceration of skin wounds Depth of debridement ____see above (10 cm total for 5 sites)____ MTDD
[2024-01-15] MEDS: VANCOMYCIN TROUGH DUE 1 EACH MISC MISCELLANE ONE (17:03)
[2024-01-15] MEDS: FUROSEMIDE 10 MG/ML 4 ML VIAL IV STA (17:32)
--- NOTE | 2024-01-15 20:08 | P.PN ---
Subjective Progress Note Date: 01/15/24 84-year-old male patient admitted back to the hospital on 01/12/2024 from [facility] following a distance of a surgical incision to the lumbar spine. The wound edges were not approximated and pulling away from the incision. There was also mild to moderate amount of serous drainage identified for that reason the patient was brought into the hospital. The patient is status post open reduction to fixation of an L2-L3 with minimal invasive stabilization of L1 S1 and L2 L4 laminectomy. The patient underwent incision and drainage and the patient is currently on a combination of cefepime and vancomycin. Cultures are still negative for now. The patient is hemodynamically stable. During this current admission, the patient had progressive worsening in his oxygen requi rements and the patient is currently on 11 L/min nasal cannula and for that reason the pulmonary cavitation was requested. I ordered a stat chest x-ray and this was completed and the patient has interstitial edema and bilateral pleural effusion right more than left. He has a weak cough. No reported aspiration. The patient has pulm vessel congestion/CHF. The patient is currently on oral Lasix. Blood work shows a white cell count of 7.9 with a hemoglobin 10.6 and a platelet count of 114. BUN 32 with a creatinine of 1.3 current serum bicarb is at 37 and sodium levels at 136. Procalcitonin level is at 0.17. He has a Mulligan catheter in place and is producing adequate amount of urine output. Fluid balance has been -2 L over the past 24 hours. On 01/15/2024, the patient is stableWithout any interval worsening shortness of breath. The patient is currently on 10 L of oxygen by nasal cannula with a pulse ox of 95%. Using incentive spirometer. He was given Lasix yesterday and the patient produced adequate urine output. He did end up pulling his Mulligan catheter and he currently has a condom cath and will monitoring his renal function and his urine output. Creatinine from today is at 1.21. No other complaints otherwise for now. He remains on IV vancomycin as the patient's wou nd culture was positive for MRSA. Objective - Vital Signs Vital signs: Vital Signs Temp 97.3 F L 01/15/24 03:08 Pulse 68 01/15/24 16:26 Resp 16 01/15/24 16:00 BP 111/53 01/15/24 16:00 Pulse Ox 95 01/15/24 16:17 FiO2 Intake & Output 01/14/24 01/15/24 01/15/24 18:59 06:59 18:59 Intake Total 40 50 260 Output Total 1600 700 Balance 40 -1550 -440 Weight 85 kg 85 kg Intake: IV 40 50 20 Invasive Line 1 20 20 Invasive Line 2 20 20 Invasive Line 3 10 20 Oral 240 Output: Urine 1600 700 Other: Voiding Method Indwelling Catheter External Catheter External Catheter - Exam GENERAL EXAM: Alert, 83-year-old male, on 10 L nasal cannula, resting in bed, comfortable in no apparent distress. The patient looks quite debilitated and is awake and alert and communicating No signs of any obvious respiratory distress. HEAD: Normocephalic. EYES: Normal reaction of pupils, equal size. NOSE: Clear with pink turbinates. THROAT: No erythema or exudates. NECK: No masses, no JVD. CHEST: No chest wall deformity. LUNGS: Diminished breath sounds specially lung base bilaterally worse on the right. Scattered crackles heard bibasilarly. No wheezing. CVS: S1 and S2 normal with no audible murmur, regular rhythm. ABDOMEN: No hepatosplenomegaly, normal bowel sounds, no guarding or rigidity. SPINE: Surgical dressing has been applied to the lumbar spine post incision and drainage. No drains. SKIN: No rashes CENTRAL NERVOUS SYSTEM: No focal deficits, tone is normal in all 4 extremities. Generalized motor weakness in all 4 extremities. EXTREMITIES: There is no peripheral edema. No clubbing, no cyanosis. Pe ripheral pulses are intact. - Labs CBC & Chem 7: 01/14/24 06:02 01/15/24 06:01 Labs: Microbiology - Last 24 Hours (Table) 01/11/24 15:36 Blood Culture - Preliminary Blood 01/13/24 10:51 Gram Stain - Preliminary Other - Other Wound Culture - Preliminary Presumptive MRSA 01/13/24 10:51 Gram Stain - Preliminary Other - Other Wound Culture - Preliminary Presumptive MRSA Assessment and Plan Plan: Acute hypoxic respiratory failure secondary to atelectatic changes in the lung bases in addition to CHF and development of bilateral pleural effusion right more than left. There is a progressive worsening in the oxygenation status and the patient is currently up to 10 L of oxygen by nasal cannula. Pneumonia is doubtful and the patient has been appropriately covered with a combination of cefepime and vancomycin.. Pulmonary embolism is doubtful as the patient is on anticoagulation with Eliquis. Ultrasound of the chest was also completed and there is no sizable pleural effusion. The patient is responding to diuretics. Incentive spirometer. fall with fracture to the spine, status post open treatment L2-3 for hyperextension fracture, L1-L4 posterior lateral fusion. Dehiscence of lumbar incisions with suspected infection the patient has undergone an incision and drainage, cultures are negative. Patient is currently on a combination of cefepime and vancomycin. Lumbar wound dehiscence due to pressure ulceration, cultures were positive for MRSA and cefepime was discontinued and the patient remains on vancomycin Acute kidney injury and the creatinine is is down to 1.2 Chronic atrial fibrillation anticoagulated with Eliquis Chronic systolic heart failure With an ejection fraction 25 to 30% Moderate to severe pulmonary hypertension History of mild coronary artery disease COPD, currently inactive and stable History of colon cancer, to be sched COPD ed for colectomy once recovered History of CVA/TIA History of hearing disorder Hyperlipidemia Former smoker Poor functional performance based on the above-mentioned multiple comorbidities, and the patient has generalized motor weakness in all 4 extremities Plan Give Lasix 40 mg IV push x 1, and will monitor urine output Monitor fluid balance and urine output Monitor creatinine as the patient creatinine is down to 1.2 Attempted titrate FiO2 down, currently on 10 L Provide this patient with an incentive spirometer Continue vancomycin Ultrasound of the chest shows no sizable pleural effusion Will continue to follow
[2024-01-15] MEDS: VANCOMYCIN 1,250 MG in SODIUM CHLORIDE 0.9% 250 ML IVPB SCH (20:21)
--- NOTE | 2024-01-16 08:01 | XR ---
EXAMINATION TYPE: XR chest 1V DATE OF EXAM: 01/16/2024 7:01 AM COMPARISON: 01/14/2024 CLINICAL INDICATION: Male, 83 years old with history of CHF, TECHNIQUE: Single frontal view of the chest is obtained. FINDINGS: Cardiomegaly, pulmonary vascular congestion and bilateral pleural effusions. Correlate wit h BNP for congestive heart failure. . The osseous structures are intact. IMPRESSION: Stable chest. [facility], , 01/16/2024 7:58 AM
--- NOTE | 2024-01-16 09:22 | P.PN ---
Subjective Progress Note Date: 01/15/24 Principal diagnosis: Reason for follow-up is possible lumbar surgical site infection Patient is a 83-year-old male with a past medical history significant for CVA TIA hypertension hyperlipidemia atrial fibrillation prostate disorder patient is status post lumbar fusion surgery completed on 12/27/2023 has been brought back to the hospital concerning for drainage from his lumbar incision and concerning for surgical site infection.Patient was taken to the OR morning of 01/13/2024 and is status post lumbar wound I&D and cultures. On today's evaluation that is 01/15/2024, Patient is afebrile this morning patient denies having any chest pain shortness of breath or cough, however the patient is requiring high flow nasal cannula oxygen, patient denies having any nausea vomiting abdominal pain or any worsening pain to the sacral wound area. Patient did have a creatinine 1.21 culture growing MRSA blood culture have been negative so far Objective - Vital Signs Vital signs: Vital Signs Temp 97.3 F L 01/15/24 03:08 Pulse 68 01/15/24 12:25 Resp 16 01/15/24 12:00 BP 106/54 01/15/24 12:00 Pulse Ox 92 L 01/15/24 12:17 FiO2 Intake & Output 01/14/24 01/15/24 01/15/24 18:59 06:59 18:59 Intake Total 40 50 250 Output Total 1600 Balance 40 -1550 250 Weight 85 kg 85 kg Intake: IV 40 50 10 Invasive Line 1 20 20 Invasive Line 2 20 20 Invasive Line 3 10 10 Oral 240 Output: Urine 1600 Other: Voiding Method Indwelling Catheter External Catheter External Catheter - Exam GENERAL DESCRIPTION: An elderly male lying in bed in no distress RESPIRATORY SYSTEM: Unlabored breathing , decreased breath sounds at bases HEART: S1 S2 regular rate and rhythm , ABDOMEN: Soft , no tenderness EXTREMITIES: No edema feet - Labs CBC & Chem 7: 01/14/24 06:02 01/15/24 06:01 Labs: Microbiology - Last 24 Hours (Table) 01/11/24 15:36 Blood Culture - Preliminary Blood 01/13/24 10:51 Gram Stain - Preliminary Other - Other Wound Culture - Preliminary Presumptive MRSA 01/13/24 10:51 Gram Stain - Preliminary Other - Other Wound Culture - Preliminary Presumptive MRSA Assessment and Plan (1) Wound infection after surgery Current Visit: Yes Status: Acute Code(s): T81.49XA - INFECTION FOLLOWING A PROCEDURE, OTHER SURGICAL SITE, INIT SNOMED Code(s): 54426270 (2) Penicillin allergy Current Visit: No Status: Acute Code(s): Z88.0 - ALLERGY STATUS TO PENICI LLIN SNOMED Code(s): 19425682 Plan: 1patient presented to hospital with generalized weakness also complaining of discomfort to the lumbar surgical site with minimal drainage concerning for possible lumbar surgical site infection superficial versus deep and will need to cover for the resistant gram-positive as well as gram-negative pathogen. 2patient with a penicillin allergy that will limit the number of antibiotics safe to use. 3patient is status post I&D of his lumbar incision and cultures which are currently growing MRSA 4patient vancomycin will be continued while watching his kidney function closely however discontinue cefepime Dictation was produced using [employer] dictation software. please excuse any grammatical, word or spelling errors. Time with Patient: Less than 30
[2024-01-16 10:14] LABS: Basophils % (A) 0 %; Eosinophils # (A) 0.2 k/uL (0-0.7); Eosinophils % (A) 3 %; HCT 37.2 % (39.0-53.0); HGB 11.3 gm/dL (13.0-17.5); Hypochromasia Marked; Lymphocytes # (A) 0.5 k/uL (1.0-4.8); Lymphocytes % (A) 8 %; MCH 31.6 pg (25.0-35.0); MCHC 30.5 g/dL (31.0-37.0); MCV 103.8 fL (80.0-100.0); Macrocytosis Slight; Mean Platelet Volume 8.4; Monocytes # (A) 0.3 k/uL (0-1.0); Monocytes % (A) 5 %; Neutrophils # (A) 4.8 k/uL (1.3-7.7); Neutrophils % (A) 82 %; Platelet Count 133 k/uL (150-450); Poikilocytosis Slight; RBC 3.58 m/uL (4.30-5.90); RDW 14.2 % (11.5-15.5); WBC 5.9 k/uL (3.8-10.6)
[2024-01-16 10:30] LABS: ALT 34 U/L (4-49); AST 32 U/L (17-59); African American GFR (CKD) 57 (>60 ml/min/1.73 sqM); Albumin 2.8 g/dL (3.5-5.0); Alkaline Phosphatase 272 U/L (38-126); Anion Gap 0 mmol/L; Blood Urea Nitrogen 38 mg/dL (9-20); Calcium 7.8 mg/dL (8.4-10.2); Carbon Dioxide 35 mmol/L (22-30); Chloride 98 mmol/L (98-107); Glucose 88 mg/dL (74-99); Non-African American GFR(CKD) 49 (>60 ml/min/1.73 sqM); Potassium 3.4 mmol/L (3.5-5.1); Sodium 133 mmol/L (137-145); Total Bilirubin 0.9 mg/dL (0.2-1.3)
--- NOTE | 2024-01-16 10:40 | P.PN ---
Subjective Progress Note Date: 01/16/24 Nick Vora, is an 83-year-old male currently in rehab at [facility] who was sent to [facility] emergency room, for worsening shortness of breath decreased O2 saturation, hypotension, generalized weakness and erythema skin breakdown or from back surgical wound. He was evaluated in the emergency room vital examination on presentation revealed a temperature of 98.1 pulse 101 respiration 19 blood pressure 116/59 pulse ox 90% on 5 L nasal cannula Laboratory data revealed a white blood count of 8.9 hemoglobin 11.6 platelet count 138 BUN 29 creatinine 0.97 troponin 0.012 BNP 1470 Testing in the emergency room revealed EKG revealed sinus rhythm with first- degree AV block, CT scan of the lumbar spine revealed evidence of recent fusion L1-L5. Chest x-ray revealed findings suggestive of congestive heart failure, infiltrates of other etiology not excluded. Patient was admitted to medical floor for further evaluation and treatment Past medical history is significant for history of hypertension, history of hyperlipidemia, history of paroxysmal atrial fibrillation, history of benign prostatic hypertrophy, history of decreased hearing, history of invasive colonic adenocarcinoma patient will need surgical intervention in the near future after he is medically stable, history of recent back surgery with lumbar fusion. On review of systems patient is alert and oriented x 3 in no apparent distress there is no fever or chills no headache or dizziness no chest pain he has some s hortness of breath with any activity there is no cough no nausea or vomiting no abdominal pain no diarrhea no constipation no blood in the stools no burning with urination no frequency or urgency and no hematuria. On 01/13/2024, patient was seen and examined on the medical floor he is alert and oriented in no apparent distress, he underwent lumbar wounds I&D today with Dr. Ashton, there is no fever or chills no headache or dizziness no chest pain no shortness of breath no cough no nausea or vomiting no abdominal pain no diarrhea and no urinary symptoms white blood count is 6.3 hemoglobin 11.3 platelet count 97 BUN 31 creatinine 1.03 On 01/14/2024 patient's alert and oriented. Increased oxygen demands. Will consult pulmonary services infectious disease, cardiology, orthopedic services and pulmonary services have all been consulted. Patient remains on Maxipime and Comycin. Patient has been transitioned to p.o. Lasix per cardiology. Current vital signs temp 98.0, heart rate 91, respiratory rate 16, blood pressure 92/54 with a pulse ox of 94% on 13 L high flow On 01/15/2024 patient is alert and oriented x 3. Cultures coming back presumptive MRSA. Patient remains on vancomycin and cefepime. Infectious disease, pulmonary, cardiology and orthopedic services are following. Current vital signs temp 97.3, heart rate 85, respiratory rate 20, blood pressure 132/57 with a pulse ox of 92% on 13 L high flow. Patient did receive IV Lasix yesterday. Patient denies chest pain or shortness of breath. Patient denies nausea vomiting or diarrhea. Patient denies any urinary burning or frequency. On 01/16/2024 patient was seen and examined on the medical floor he is alert and oriented x 3 in no apparent distress there is no fever or chills no headache or dizziness no chest pain no shortness of breath no cough no nausea or vomiting no abdominal pain no diarrhea, he is complaining of constipation no blood in the stools no burning with urination no frequency or urgency and no hematuria. Objective - Vital Signs Vital signs: Vital Signs Temp 97.4 F L 01/16/24 08:23 Pulse 68 01/16/24 08:34 Resp 17 01/16/24 08:23 BP 112/58 01/16/24 08:23 Pulse Ox 94 L 01/16/24 08:23 FiO2 Intake & Output 01/15/24 01/16/24 01/16/24 18:59 06:59 18:59 Intake Total 500 260 240 Output Total 700 Balance -200 260 240 Weight 85 kg 80.5 kg Intake: IV 20 20 Invasive Line 3 20 20 Oral 480 240 240 Output: Urine 700 Other: Voiding Method External Catheter External Catheter - Exam In general patient is alert and oriented x 3 in no distress HEENT head normocephalic and atraumatic Neck is supple no JVD no goiter no lymphadenopathy no carotid bruit Chest examination reveals a scattered crackles bilaterally no wheezing Cardiac exam reveals regular heart sounds S1 and S2 no gallops no murmurs Abdomen is soft nontender no organomegaly with normal bowel sounds Extremity exam reveals no edema no cyanosis or clubbing Back exam reveals mild erythema around the surgical wound with mild tenderness Neurological examination reveals generalized weakness with no gross focal deficits - Labs CBC & Chem 7: 01/16/24 09:53 01/16/24 09:53 Labs: Microbiology - Last 24 Hours (Table) 01/13/24 10:51 Anaerobic Culture - Preliminary Other - Other 01/13/24 10:51 Anaerobic Culture - Preliminary Other - Other 01/13/24 10:51 Gram Stain - Final Other - Other Wound Culture - Final Methicillin resist S. aureus Assessment and Plan Plan: Acute exacerbation of systolic congestive heart failure Cardiomyopathy with ejection fraction 25 to 30% on echocardiogram done on 09/07/2023 Worsening shortness of breath and decreased O2 saturation likely related to congestive heart failure Mild erythema and tenderness in the lumbar surgical wound site with wound infection cultures currently growing presumptive MRSA Underlying history of paroxysmal atrial fibrillation Underlying history of hypertension Underlying history of hyperlipidemia Underlying history of colon adenocarcinoma patient will need surgery when medically stable Physical debility Moderate to severe protein calorie malnutrition At this time patient was seen and examined Home medications reviewed and reordered Consultation for infectious disease, cardiology, and orthopedic surgery initiated For DVT prophylaxis, patient is on Eliquis Prognosis is guarded will follow closely
--- NOTE | 2024-01-16 11:03 | P.PN ---
Subjective Progress Note Date: 01/16/24 Principal diagnosis: Status post irrigation debridement lumbar spine with revision wound closure, history of previous L1-L4 posterior lateral fusion/stabilization, multiple medical issues Patient was evaluated today at bedside, he is resting comfortably. Patient remains at his baseline, he continues to have generalized weakness throughout. Patient's back is stable, very minimal discomfort at this time. Dressing remains intact, no acute issues at this time. Patient has no headaches, headedness, chest pain or shortness of breath Objective - Vital Signs Vital signs: Vital Signs Temp 97.4 F L 01/16/24 08:23 Pulse 68 01/16/24 08:34 Resp 17 01/16/24 08:23 BP 112/58 01/16/24 08:23 Pulse Ox 94 L 01/16/24 08:23 FiO2 Intake & Output 01/15/24 01/16/24 01/16/24 18:59 06:59 18:59 Intake Total 500 260 250 Output Total 700 350 Balance -200 260 -100 Weight 85 kg 80.5 kg Intake: IV 20 20 10 Invasive Line 3 20 20 10 Oral 480 240 240 Output: Urine 700 350 Other: Voiding Method External Catheter External Catheter External Catheter - Exam Gen: AOx3, NAD VSS stable at this time Integument: Postop dressing removed today, skin was cleaned and new dressing was placed. Nylon sutures were all in good position and condition Palpation: Mild tenderness with palpation of the lumbar spine ROM: Full range of motion all major muscle groups of bilateral upper extremities, no focal deficits Bilateral lower extremity motion intact, generalized weakness to all major muscle groups Sensory Exam: Senory exam to light touch is intact C5-T1 Senosry exam to light touch is intact L2-S1 Motor: 3/5 strength appreciated bilateral lower extremities with hip flexion, knee extension, knee flexion, plantarflexion, dorsiflexion, EHL Reflexes: 2/4 in all UE and LE Negative Ochoa's bilaterally Negative clonus bilaterally - Labs CBC & Chem 7: 01/16/24 09:53 01/16/24 09:53 Labs: Abnormal Lab Results - Last 24 Hours (Table) 01/16/24 01/16/24 Range/Units 09:53 09:53 RBC 3.58 L (4.30-5.90) m/uL Hgb 11.3 L (13.0-17.5) gm/dL Hct 37.2 L (39.0-53.0) % MCV 103.8 H (80.0-100.0) fL MCHC 30.5 L (31.0-37.0) g/dL Plt Count 133 L (150-450) k/uL Lymphocytes # 0.5 L (1.0-4.8) k/uL Sodium 133 L (137-145) mmol/L Potassium 3.4 L (3.5-5.1) mmol/L Carbon Dioxide 35 H (22-30) mmol/L BUN 38 H (9-20) mg/dL Creatinine 1.34 H (0.66-1.25) mg/dL Calcium 7.8 L (8.4-10.2) mg/dL Alkaline Phosphatase 272 H (38-126) U/L Total Protein 5.0 L (6.3-8.2) g/dL Albumin 2.8 L (3.5-5.0) g/dL Microbiology - Last 24 Hours (Table) 01/13/24 10:51 Anaerobic Culture - Preliminary Other - Other 01/13/24 10:51 Anaerobic Culture - Preliminary Other - Other 01/13/24 10:51 Gram Stain - Final Other - Other Wound Culture - Final Methicillin resist S. aureus Assessment and Plan Assessment: Postoperative day #3 status post irrigation debridement lumbar spine with wound revision closure History of L2-L3 AL type B3 hyperextension injury, L3 AO type A4 burst fracture, chronic L4 AO type III A3 fracture status post kyphoplasty Multiple medical comorbidities Plan: Pain control, continue with current medications DVT prophylaxis per primary medical service Wound care, dressing change was done by myself today at bedside. Patient needs to be laying on his sides avoiding direct contact with the low back, patient can lay on his back for no more than an hour at a time Patient needs to be up in a chair multiple times throughout the day Encourage incentive spirometer PT/OT recommendations Other medical specialty recommendations Discharge planning: Orthopedic standpoint patient is stable for discharge to subacute rehab. Plan for follow-up in the outpatient setting in the next 2 weeks. Please contact service with any further questions Time with Patient: Less than 30
[2024-01-16] MEDS: FUROSEMIDE 10 MG/ML 4 ML VIAL IV STA (11:55)
[2024-01-16] MEDS: LACTULOSE 20 GM/30 ML CUP PO ONE (11:55)
--- NOTE | 2024-01-16 14:01 | P.PN ---
Subjective Progress Note Date: 01/16/24 Principal diagnosis: Reason for follow-up is possible lumbar surgical site infection Patient is a 83-year-old male with a past medical history significant for CVA TIA hypertension hyperlipidemia atrial fibrillation prostate disorder patient is status post lumbar fusion surgery completed on 12/27/2023 has been brought back to the hospital concerning for drainage from his lumbar incision and concerning for surgical site infection.Patient was taken to the OR morning of 01/13/2024 and is status post lumbar wound I&D and cultures. On today's evaluation that is 01/16/2024,the patient denies any fever or any chills, patient is breathing slightly comfortably currently requiring 7 L nasal cannula oxygen, the patient denies chest pain shortness of breath and no significant cough, patient denies abdominal pain, no nausea vomiting or diarrhea. Denies any worsening pain to the lower back area. Patient white count is 5.9, creatinine is 1.34 blood culture have been negative local culture with MRSA Objective - Vital Signs Vital signs: Vital Signs Temp 98.5 F 01/16/24 12:00 Pulse 68 01/16/24 12:04 Resp 17 01/16/24 12:00 BP 112/58 01/16/24 08:23 Pulse Ox 93 L 01/16/24 12:00 FiO2 Intake & Output 01/15/24 01/16/24 01/16/24 18:59 06:59 18:59 Intake Total 500 260 260 Output Total 700 900 Balance -200 260 -640 Weight 85 kg 80.5 kg Intake: IV 20 20 20 Invasive Line 3 20 20 20 Oral 480 240 240 Output: Urine 700 900 Other: Voiding Method External Catheter External Catheter External Catheter - Exam GENERAL DESCRIPTION: An elderly male lying in bed in no distress RESPIRATORY SYSTEM: Unlabored breathing , decreased breath sounds at bases HEART: S1 S2 regular rate and rhythm , ABDOMEN: Soft , no tenderness EXTREMITIES: No edema feet - Labs CBC & Chem 7: 01/16/24 09:53 01/16/24 09:53 Labs: Abnormal Lab Results - Last 24 Hours (Table) 01/16/24 01/16/24 Range/Units 09:53 09:53 RBC 3.58 L (4.30-5.90) m/uL Hgb 11.3 L (13.0-17.5) gm/dL Hct 37.2 L (39.0-53.0) % MCV 103.8 H (80.0-100.0) fL MCHC 30.5 L (31.0-37.0) g/dL Plt Count 133 L (150-450) k/uL Lymphocytes # 0.5 L (1.0-4.8) k/uL Sodium 133 L (137-145) mmol/L Potassium 3.4 L (3.5-5.1) mmol/L Carbon Dioxide 35 H (22-30) mmol/L BUN 38 H (9-20) mg/dL Creatinine 1.34 H (0.66-1.25) mg/dL Calcium 7.8 L (8.4-10.2) mg/dL Alkaline Phosphatase 272 H (38-126) U/L Total Protein 5.0 L (6.3-8.2) g/dL Albumin 2.8 L (3.5-5.0) g/dL Microbiology - Last 24 Hours (Table) 01/13/24 10:51 Anaerobic Culture - Preliminary Other - Other 01/13/24 10:51 Anaerobic Culture - Preliminary Other - Other 01/13/24 10:51 Gram Stain - Final Other - Other Wound Culture - Final Methicillin resist S. aureus Assessment and Plan (1) Wound infection after surgery Current Visit: Yes Status: Acute Code(s): T81.49XA - INFECTION FOLLOWING A PROCEDURE, OTHER SURGICAL SITE, INIT SNOMED Code(s): 29869668 (2) Penicillin allergy Current Visit: No Status: Acute Code(s): Z88.0 - ALLERGY STATUS TO PEN ICILLIN SNOMED Code(s): 07558980 Plan: 1patient presented to hospital with generalized weakness also complaining of discomfort to the lumbar surgical site with minimal drainage concerning for possible lumbar surgical site infection superficial versus deep and will need to cover for the resistant gram-positive as well as gram-negative pathogen. 2patient with a penicillin allergy that will limit the number of antibiotics safe to use. 3patient is status post I&D of his lumbar incision and cultures which are currently growing MRSA 4patient will be treated with vancomycin will need a PICC line for outpatient IV antibiotics Dictation was produced using [employer] dictation software. please excuse any grammatical, word or spelling errors. Time with Patient: Less than 30
--- NOTE | 2024-01-16 14:41 | P.PN ---
Subjective Progress Note Date: 01/16/24 84-year-old male patient admitted back to the hospital on 01/12/2024 from [facility] following a distance of a surgical incision to the lumbar spine. The wound edges were not approximated and pulling away from the incision. There was also mild to moderate amount of serous drainage identified for that reason the patient was brought into the hospital. The patient is status post open reduction to fixation of an L2-L3 with minimal invasive stabilization of L1 S1 and L2 L4 laminectomy. The patient underwent incision and drainage and the patient is currently on a combination of cefepime and vancomycin. Cultures are still negative for now. The patient is hemodynamically stable. During this current admission, the patient had progressive worsening in his oxygen requi rements and the patient is currently on 11 L/min nasal cannula and for that reason the pulmonary cavitation was requested. I ordered a stat chest x-ray and this was completed and the patient has interstitial edema and bilateral pleural effusion right more than left. He has a weak cough. No reported aspiration. The patient has pulm vessel congestion/CHF. The patient is currently on oral Lasix. Blood work shows a white cell count of 7.9 with a hemoglobin 10.6 and a platelet count of 114. BUN 32 with a creatinine of 1.3 current serum bicarb is at 37 and sodium levels at 136. Procalcitonin level is at 0.17. He has a Mulligan catheter in place and is producing adequate amount of urine output. Fluid balance has been -2 L over the past 24 hours. On 01/15/2024, the patient is stableWithout any interval worsening shortness of breath. The patient is currently on 10 L of oxygen by nasal cannula with a pulse ox of 95%. Using incentive spirometer. He was given Lasix yesterday and the patient produced adequate urine output. He did end up pulling his Mulligan catheter and he currently has a condom cath and will monitoring his renal function and his urine output. Creatinine from today is at 1.21. No other complaints otherwise for now. He remains on IV vancomycin as the patient's wou nd culture was positive for MRSA. On 01/16/2024, the patient is being seen for a follow-up. The patient is calm and comfortable. There has been interval improvement the patient's oxygenation and the patient is currently down to 7 L of oxygen by nasal cannula. He is using incentive spirometer. He was given Lasix yesterday and the net fluid balance is -1.5 L over the past 24 hours. Creatinine stable at 1.24 with a BUN of 38. Serum bicarb is at 35. Sodium levels at 133. WBC count is 5.9 with a hemoglobin of 11.3. The patient remains on vancomycin regarding wound infection. No other new complaints otherwise for now. Remains in atrial fibrillation. Remains on anticoagulation with Eliquis. Remains on metoprolol 12.5 mg p.o. daily. Rest of the medications are essentially unchanged. Follow- up chest x-ray from today continues to show some atelectatic changes in lung bases bilaterally. Findings are essentially stable Objective - Vital Signs Vital signs: Vital Signs Temp 97.4 F L 01/16/24 08:23 Pulse 68 01/16/24 08:34 Resp 17 01/16/24 08:23 BP 112/58 01/16/24 08:23 Pulse Ox 94 L 01/16/24 08:23 FiO2 Intake & Output 01/15/24 01/16/24 01/16/24 18:59 06:59 18:59 Intake Total 500 260 250 Output Total 700 350 Balance -200 260 -100 Weight 85 kg 80.5 kg Intake: IV 20 20 10 Invasive Line 3 20 20 10 Oral 480 240 240 Output: Urine 700 350 Other: Voiding Method External Catheter External Catheter External Catheter - Exam GENERAL EXAM: Alert, 83-year-old male, on 7 L nasal cannula, resting in bed, comfortable in no apparent distress. The patient looks quite debilitated and is awake and alert and communicating No signs of any obvious respiratory distress. HEAD: Normocephalic. EYES: Normal reaction of pupils, equal size. NOSE: Clear with pink turbinates. THROAT: No erythema or exudates. NECK: No masses, no JVD. CHEST: No chest wall deformity. LUNGS: Diminished breath sounds specially lung base bilaterally worse on the right. Scattered crackles heard bibasilarly. No wheezing. CVS: S1 and S2 normal with no audible murmur, regular rhythm. ABDOMEN: No hepatosplenomegaly, normal bowel sounds, no guarding or rigidity. SPINE: Surgical dressing has been applied to the lumbar spine post incision and drainage. No drains. SKIN: No rashes CENTRAL NERVOUS SYSTEM: No focal deficits, tone is normal in all 4 extremities. Generalized motor weakness in all 4 extremities. EXTREMITIES: There is no peripheral edema. No clubbing, no cyanosis. Peripheral pulses are intact. - Labs CBC & Chem 7: 01/16/24 09:53 01/16/24 09:53 Labs: Abnormal Lab Results - Last 24 Hours (Table) 01/16/24 01/16/24 Range/Units 09:53 09:53 RBC 3.58 L (4.30-5.90) m/uL Hgb 11.3 L (13.0-17.5) gm/dL Hct 37.2 L (39.0-53.0) % MCV 103.8 H (80.0-100.0) fL MCHC 30.5 L (31.0-37.0) g/dL Plt Count 133 L (150-450) k/uL Lymphocytes # 0.5 L (1.0-4.8) k/uL Sodium 133 L (137-145) mmol/L Potassium 3.4 L (3.5-5.1) mmol/L Carbon Dioxide 35 H (22-30) mmol/L BUN 38 H (9-20) mg/dL Creatinine 1.34 H (0.66-1.25) mg/dL Calcium 7.8 L (8.4-10.2) mg/dL Alkaline Phosphatase 272 H (38-126) U/L Total Protein 5.0 L (6.3-8.2) g/dL Albumin 2.8 L (3.5-5.0) g/dL Microbiology - Last 24 Hours (Table) 01/13/24 10:51 Anaerobic Culture - Preliminary Other - Other 01/13/24 10:51 Anaerobic Culture - Preliminary Other - Other 01/13/24 10:51 Gram Stain - Final Other - Other Wound Culture - Final Methicillin resist S. aureus Assessment and Plan Plan: Acute hypoxic respiratory failure secondary to atelectatic changes in the lung bases in addition to CHF and development of bilateral pleural effusion right more than left. There is a progressive worsening in the oxygenation status and the patient is currently up to 10 L of oxygen by nasal cannula. Pneumonia is doubtful and the patient has been appropriately covered with a combination of cefepime and vancomycin.. Pulmonary embolism is doubtful as the patient is on anticoagulation with Eliquis. Ultrasound of the chest was also completed and there is no sizable pleural effusion. The patient is responding to diuretics. Incentive spirometer. fall with fracture to the spine, status post open treatment L2-3 for hyperextension fracture, L1-L4 posterior lateral fusion. Dehiscence of lumbar incisions with suspected infection the patient has undergone an incision and drainage, cultures are negative. Patient is currently on a combination of cefepime and vancomycin. Lumbar wound dehiscence due to pressure ulceration, cultures were positive for MRSA and cefepime was discontinued and the patient remains on vancomycin Acute kidney injury and the creatinine is stable for now and the patient is producing good urine output while being on Lasix. Chronic atrial fibrillation anticoagulated with Eliquis Chronic systolic heart failure With an ejection fraction 25 to 30% Moderate to severe pulmonary hypertension History of mild coronary artery disease COPD, currently inactive and stable History of colon cancer, to be schedul COPD ed for colectomy once recovered History of CVA/TIA History of hearing disorder Hyperlipidemia Former smoker Poor functional performance based on the above-mentioned multiple comorbidities, and the patient has generalized motor weakness in all 4 extremities Plan Give another dose of Lasix 40 mg IV push x 1, and will monitor urine output Monitor fluid balance and urine output Monitor creatinine Attempted titrate FiO2 down, currently on 7 L Provide this patient with an incentive spirometer Continue vancomycin Ultrasound of the chest shows no sizable pleural effusion Chest x-ray from today is noted and there are some respiratory failure changes lung bases. Will continue to follow
[2024-01-16] MEDS: POTASSIUM CHLORIDE ER 20 MEQ TAB.ER PO ONE (17:19)
[2024-01-17 06:33] LABS: ALT 26 U/L (4-49); AST 27 U/L (17-59); African American GFR (CKD) 57 (>60 ml/min/1.73 sqM); Albumin 2.5 g/dL (3.5-5.0); Alkaline Phosphatase 258 U/L (38-126); Anion Gap 0 mmol/L; Blood Urea Nitrogen 43 mg/dL (9-20); Carbon Dioxide 33 mmol/L (22-30); Chloride 98 mmol/L (98-107); Glucose 86 mg/dL (74-99); Non-African American GFR(CKD) 49 (>60 ml/min/1.73 sqM); Potassium 3.7 mmol/L (3.5-5.1); Sodium 131 mmol/L (137-145); Total Bilirubin 0.9 mg/dL (0.2-1.3); Total Protein 4.6 g/dL (6.3-8.2)
[2024-01-17 07:29] LABS: Basophils % (A) 1 %; Eosinophils # (A) 0.2 k/uL (0-0.7); Eosinophils % (A) 3 %; HCT 36.1 % (39.0-53.0); HGB 10.7 gm/dL (13.0-17.5); Hypochromasia Marked; Lymphocytes # (A) 0.7 k/uL (1.0-4.8); Lymphocytes % (A) 11 %; MCH 30.4 pg (25.0-35.0); MCHC 29.6 g/dL (31.0-37.0); MCV 102.7 fL (80.0-100.0); Macrocytosis Slight; Mean Platelet Volume 8.6; Monocytes # (A) 0.4 k/uL (0-1.0); Monocytes % (A) 6 %; Neutrophils # (A) 4.8 k/uL (1.3-7.7); Neutrophils % (A) 77 %; Platelet Count 134 k/uL (150-450); Poikilocytosis Slight; RBC 3.52 m/uL (4.30-5.90); WBC 6.2 k/uL (3.8-10.6)
--- NOTE | 2024-01-17 10:05 | P.PN ---
Subjective Progress Note Date: 01/17/24 Nick Vora, is an 83-year-old male currently in rehab at [facility] who was sent to [facility] emergency room, for worsening shortness of breath decreased O2 saturation, hypotension, generalized weakness and erythema skin breakdown or from back surgical wound. He was evaluated in the emergency room vital examination on presentation revealed a temperature of 98.1 pulse 101 respiration 19 blood pressure 116/59 pulse ox 90% on 5 L nasal cannula Laboratory data revealed a white blood count of 8.9 hemoglobin 11.6 platelet count 138 BUN 29 creatinine 0.97 troponin 0.012 BNP 1470 Testing in the emergency room revealed EKG revealed sinus rhythm with first- degree AV block, CT scan of the lumbar spine revealed evidence of recent fusion L1-L5. Chest x-ray revealed findings suggestive of congestive heart failure, infiltrates of other etiology not excluded. Patient was admitted to medical floor for further evaluation and treatment Past medical history is significant for history of hypertension, history of hyperlipidemia, history of paroxysmal atrial fibrillation, history of benign prostatic hypertrophy, history of decreased hearing, history of invasive colonic adenocarcinoma patient will need surgical intervention in the near future after he is medically stable, history of recent back surgery with lumbar fusion. On review of systems patient is alert and oriented x 3 in no apparent distress there is no fever or chills no headache or dizziness no chest pain he has some s hortness of breath with any activity there is no cough no nausea or vomiting no abdominal pain no diarrhea no constipation no blood in the stools no burning with urination no frequency or urgency and no hematuria. On 01/13/2024, patient was seen and examined on the medical floor he is alert and oriented in no apparent distress, he underwent lumbar wounds I&D today with Dr. Ashton, there is no fever or chills no headache or dizziness no chest pain no shortness of breath no cough no nausea or vomiting no abdominal pain no diarrhea and no urinary symptoms white blood count is 6.3 hemoglobin 11.3 platelet count 97 BUN 31 creatinine 1.03 On 01/14/2024 patient's alert and oriented. Increased oxygen demands. Will consult pulmonary services infectious disease, cardiology, orthopedic services and pulmonary services have all been consulted. Patient remains on Maxipime and Comycin. Patient has been transitioned to p.o. Lasix per cardiology. Current vital signs temp 98.0, heart rate 91, respiratory rate 16, blood pressure 92/54 with a pulse ox of 94% on 13 L high flow On 01/15/2024 patient is alert and oriented x 3. Cultures coming back presumptive MRSA. Patient remains on vancomycin and cefepime. Infectious disease, pulmonary, cardiology and orthopedic services are following. Current vital signs temp 97.3, heart rate 85, respiratory rate 20, blood pressure 132/57 with a pulse ox of 92% on 13 L high flow. Patient did receive IV Lasix yesterday. Patient denies chest pain or shortness of breath. Patient denies nausea vomiting or diarrhea. Patient denies any urinary burning or frequency. On 01/16/2024 patient was seen and examined on the medical floor he is alert and oriented x 3 in no apparent distress there is no fever or chills no headache or dizziness no chest pain no shortness of breath no cough no nausea or vomiting no abdominal pain no diarrhea, he is complaining of constipation no blood in the stools no burning with urination no frequency or urgency and no hematuria. On 01/17/2024 patient is alert and oriented x 3. Patient remains on IV vancomycin. Current vital signs temp 97.6, heart 72, respiratory rate 18, blood pressure 98/52 with a pulse ox of 91% on 9 L. Patient denies chest pain or shortness of breath. Patient denies nausea vomiting or diarrhea. Patient denies any urinary burning or frequency Objective - Vital Signs Vital signs: Vital Signs Temp 97.6 F 01/17/24 04:44 Pulse 74 01/17/24 09:53 Resp 18 01/17/24 04:44 BP 98/52 01/17/24 04:44 Pulse Ox 90 L 01/17/24 04:44 FiO2 Intake & Output 01/16/24 01/17/24 01/17/24 18:59 06:59 18:59 Intake Total 858 20 Output Total 1550 Balance -692 20 Weight 96 kg Intake: IV 20 20 Invasive Line 3 20 20 Oral 838 Output: Urine 1550 Other: Voiding Method External Catheter External Catheter - Exam In general patient is alert and oriented x 3 in no distress HEENT head normocephalic and atraumatic Neck is supple no JVD no goiter no lymphadenopathy no carotid bruit Chest examination reveals a scattered crackles bilaterally no wheezing Cardiac exam reveals regular heart sounds S1 and S2 no gallops no murmurs Abdomen is soft nontender no organomegaly with normal bowel sounds Extremity exam reveals no edema no cyanosis or clubbing Back exam reveals mild erythema around the surgical wound with mild tenderness Neurological examination reveals generalized weakness with no gross focal deficits - Labs CBC & Chem 7: 01/17/24 05:43 01/17/24 05:43 Labs: Abnormal Lab Results - Last 24 Hours (Table) 01/16/24 01/16/24 01/17/24 Range/Units 09:53 09:53 05:43 RBC 3.58 L (4.30-5.90) m/uL Hgb 11.3 L (13.0-17.5) gm/dL Hct 37.2 L (39.0-53.0) % MCV 103.8 H (80.0-100.0) fL MCHC 30.5 L (31.0-37.0) g/dL Plt Count 133 L (150-450) k/uL Lymphocytes # 0.5 L (1.0-4.8) k/uL Sodium 133 L 131 L (137-145) mmol/L Potassium 3.4 L (3.5-5.1) mmol/L Carbon Dioxide 35 H 33 H (22-30) mmol/L BUN 38 H 43 H (9-20) mg/dL Creatinine 1.34 H 1.34 H (0.66-1.25) mg/dL Calcium 7.8 L 8.0 L (8.4-10.2) mg/dL Alkaline Phosphatase 272 H 258 H (38-126) U/L Total Protein 5.0 L 4.6 L (6.3-8.2) g/dL Albumin 2.8 L 2.5 L (3.5-5.0) g/dL 01/17/24 Range/Units 05:43 RBC 3.52 L (4.30-5.90) m/uL Hgb 10.7 L (13.0-17.5) gm/dL Hct 36.1 L (39.0-53.0) % MCV 102.7 H (80.0-100.0) fL MCHC 29.6 L (31.0-37.0) g/dL Plt Count 134 L (150-450) k/uL Lymphocytes # 0.7 L (1.0-4.8) k/uL Sodium (137-145) mmol/L Potassium (3.5-5.1) mmol/L Carbon Dioxide (22-30) mmol/L BUN (9-20) mg/dL Creatinine (0.66-1.25) mg/dL Calcium (8.4-10.2) mg/dL Alkaline Phosphatase (38-126) U/L Total Protein (6.3-8.2) g/dL Albumin (3.5-5.0) g/dL Microbiology - Last 24 Hours (Table) 01/11/24 15:36 Blood Culture - Final Blood 01/13/24 10:51 Gram Stain - Preliminary Other - Other Wound Culture - Preliminary Methicillin resist S. aureus Group D Enterococcus Assessment and Plan Plan: Acute exacerbation of systolic congestive heart failure Cardiomyopathy with ejection fraction 25 to 30% on echocardiogram done on 09/07/2023 Worsening shortness of breath and decreased O2 saturation likely related to congestive heart failure Mild erythema and tenderness in the lumbar surgical wound site with wound infection cultures currently growing presumptive MRSA Underlying history of paroxysmal atrial fibrillation Underlying history of hypertension Underlying history of hyperlipidemia Underlying history of colon adenocarcinoma patient will need surgery when medically stable Physical debility Moderate to severe protein calorie malnutrition At this time patient was seen and examined Home medications reviewed and reordered Consultation for infectious disease, cardiology, and orthopedic surgery initiated For DVT prophylaxis, patient is on Eliquis Prognosis is guarded will follow closely
--- NOTE | 2024-01-17 12:57 | XR ---
EXAMINATION TYPE: XR chest 1V DATE OF EXAM: 01/17/2024 12:52 PM COMPARISON: Chest radiographs from 01/16/2024 TECHNIQUE: XR chest 1V Frontal view of the chest. CLINICAL INDICATION:Male, 83 years old with history of hypoxia; FINDINGS: Lungs/Pleura: No evidence of focal consolidation or pneumothorax. Blunting of the costophrenic angles is present. Pulmonary vascularity: Mild pulmonary vascular congestion. Heart/mediastinum: Cardiomediastinal silhouette is enlarged and stable. Atherosclerotic calcificatio ns are seen in the aorta. Musculoskeletal: No acute osseous pathology. Left shoulder arthroplasty change. IMPRESSION: Stable cardiomegaly, pulmonary vascular congestion and small bilateral pleural effusions. Correlate w ith BNP for congestive heart failure. [facility], , 01/17/2024 12:55 PM
--- NOTE | 2024-01-17 15:04 | P.PN ---
Subjective Progress Note Date: 01/17/24 Principal diagnosis: Reason for follow-up is possible lumbar surgical site infection Patient is a 83-year-old male with a past medical history significant for CVA TIA hypertension hyperlipidemia atrial fibrillation prostate disorder patient is status post lumbar fusion surgery completed on 12/27/2023 has been brought back to the hospital concerning for drainage from his lumbar incision and concerning for surgical site infection.Patient was taken to the OR morning of 01/13/2024 and is status post lumbar wound I&D and cultures. On today's evaluation that is 01/17/2024,the patient remains to be afebrile, patient is on 9 L high flow nasal cannula supplemental oxygen however denies any worsening shortness of breath no chest pain or cough.Patient denies having any n ausea or vomiting, no abdominal pain and no diarrhea still complaining of some discomfort to the lower back area. The patient white count 6.2, creatinine is 1.34 culture with MRSA and group D Enterococcus sensitivity on group D currently pending Objective - Vital Signs Vital signs: Vital Signs Temp 98.9 F 01/17/24 09:35 Pulse 68 01/17/24 13:15 Resp 18 01/17/24 11:30 BP 112/57 01/17/24 11:30 Pulse Ox 94 L 01/17/24 12:32 FiO2 60 01/17/24 12:32 Intake & Output 01/16/24 01/17/24 01/17/24 18:59 06:59 18:59 Intake Total 858 20 250 Output Total 1550 Balance -692 20 250 Weight 96 kg Intake: IV 20 20 10 Invasive Line 3 20 20 10 Oral 838 240 Output: Urine 1550 Other: Voiding Method External Catheter External Catheter External Catheter - Exam GENERAL DESCRIPTION: An elderly male lying in bed in no distress RESPIRATORY SYSTEM: Unlabored breathing , decreased breath sounds at bases HEART: S1 S2 regular rate and rhythm , ABDOMEN: Soft , no tenderness EXTREMITIES: No edema feet - Labs CBC & Chem 7: 01/17/24 05:43 01/17/24 05:43 Labs: Abnormal Lab Results - Last 24 Hours (Table) 01/17/24 01/17/24 Range/Units 05:43 05:43 RBC 3.52 L (4.30-5.90) m/uL Hgb 10.7 L (13.0-17.5) gm/dL Hct 36.1 L (39.0-53.0) % MCV 102.7 H (80.0-100.0) fL MCHC 29.6 L (31.0-37.0) g/dL Plt Count 134 L (150-450) k/uL Lymphocytes # 0.7 L (1.0-4.8) k/uL Sodium 131 L (137-145) mmol/L Carbon Dioxide 33 H (22-30) mmol/L BUN 43 H (9-20) mg/dL Creatinine 1.34 H (0.66-1.25) mg/dL Calcium 8.0 L (8.4-10.2) mg/dL Alkaline Phosphatase 258 H (38-126) U/L Total Protein 4.6 L (6.3-8.2) g/dL Albumin 2.5 L (3.5-5.0) g/dL Microbiology - Last 24 Hours (Table) 01/11/24 15:36 Blood Culture - Final Blood 01/13/24 10:51 Gram Stain - Preliminary Other - Other Wound Culture - Preliminary Methicillin resist S. aureus Group D Enterococcus Assessment and Plan (1) Wound infection after surgery Current Visit: Yes Status: Acute Code(s): T81.49XA - INFECTION FOLLOWING A PROCEDURE, OTHER SURGICAL SITE, INIT SNOMED Code(s): 38549608 (2) Penicillin allergy Current Visit: No Status: Acute Code(s): Z88.0 - ALLERGY STATUS TO PENICILLIN SNOMED Code(s): 73291023 Plan: 1patient presented to hospital with generalized weakness also complaining of discomfort to the lumbar surgical site with minimal drainage concerning for possible lumbar surgical site infection superficial versus deep and will need to cover for the resistant gram-positive as well as gram-negative pathogen. 2patient with a penicillin allergy that will limit the number of antibiotics safe to use. 3patient is status post I&D of his lumbar incision and cultures which are cu rrently growing MRSA as well as group D Enterococcus with sensitivities pending 4patient currently being treated with vancomycin may need to adjust antibiotic further on the basis of Enterococcus sensitivities will need a PICC line for outpatient IV antibiotics Dictation was produced using [employer] dictation software. please excuse any grammatical, word or spelling errors. Time with Patient: Less than 30
--- NOTE | 2024-01-17 17:34 | P.PN ---
Subjective Progress Note Date: 01/17/24 84-year-old male patient admitted back to the hospital on 01/12/2024 from [facility] following a distance of a surgical incision to the lumbar spine. The wound edges were not approximated and pulling away from the incision. There was also mild to moderate amount of serous drainage identified for that reason the patient was brought into the hospital. The patient is status post open reduction to fixation of an L2-L3 with minimal invasive stabilization of L1 S1 and L2 L4 laminectomy. The patient underwent incision and drainage and the patient is currently on a combination of cefepime and vancomycin. Cultures are still negative for now. The patient is hemodynamically stable. During this current admission, the patient had progressive worsening in his oxygen requi rements and the patient is currently on 11 L/min nasal cannula and for that reason the pulmonary cavitation was requested. I ordered a stat chest x-ray and this was completed and the patient has interstitial edema and bilateral pleural effusion right more than left. He has a weak cough. No reported aspiration. The patient has pulm vessel congestion/CHF. The patient is currently on oral Lasix. Blood work shows a white cell count of 7.9 with a hemoglobin 10.6 and a platelet count of 114. BUN 32 with a creatinine of 1.3 current serum bicarb is at 37 and sodium levels at 136. Procalcitonin level is at 0.17. He has a Mulligan catheter in place and is producing adequate amount of urine output. Fluid balance has been -2 L over the past 24 hours. On 01/15/2024, the patient is stableWithout any interval worsening shortness of breath. The patient is currently on 10 L of oxygen by nasal cannula with a pulse ox of 95%. Using incentive spirometer. He was given Lasix yesterday and the patient produced adequate urine output. He did end up pulling his Mulligan catheter and he currently has a condom cath and will monitoring his renal function and his urine output. Creatinine from today is at 1.21. No other complaints otherwise for now. He remains on IV vancomycin as the patient's wou nd culture was positive for MRSA. On 01/16/2024, the patient is being seen for a follow-up. The patient is calm and comfortable. There has been interval improvement the patient's oxygenation and the patient is currently down to 7 L of oxygen by nasal cannula. He is using incentive spirometer. He was given Lasix yesterday and the net fluid balance is -1.5 L over the past 24 hours. Creatinine stable at 1.24 with a BUN of 38. Serum bicarb is at 35. Sodium levels at 133. WBC count is 5.9 with a hemoglobin of 11.3. The patient remains on vancomycin regarding wound infection. No other new complaints otherwise for now. Remains in atrial fibrillation. Remains on anticoagulation with Eliquis. Remains on metoprolol 12.5 mg p.o. daily. Rest of the medications are essentially unchanged. Follow- up chest x-ray from today continues to show some atelectatic changes in lung bases bilaterally. Findings are essentially stable On 01/17/2024, the patient is being seen for a follow-up. The patient is currently hypoxic on 10 L of oxygen by nasal cannula. Pulse ox in the mid 80s. Based on that, the patient was placed on Airvo at 40 L with an FiO2 of 60%. A repeat chest x-ray was also requested and this was reviewed. The chest x-ray from today showing stable cardiomegaly, pulm vessel congestion, small bilateral pleural effusions and overall chest x-ray finding is consistent with CHF. There is some atelectatic changes in the lung bases bilaterally. The white cell count is 6.2 with a heme of 10.7 and a platelet count of 134. BUN is 43 with a creatinine of 1.34 and the creatinine remains stable. Sodium level is 131. Potassium level is at 3.7. The patient remains on IV vancomycin. The patient remains on Lasix 40 mg p.o. daily. Remains on anticoagulation with Eliquis. Remains on DuoNeb nebulizers [id number] and a combination of metoprolol XL 12.5 mg p.o. daily and amiodarone 12 mg p.o. daily. Objective - Vital Signs Vital signs: Vital Signs Temp 98.9 F 01/17/24 09:35 Pulse 77 01/17/24 11:30 Resp 18 01/17/24 11:30 BP 112/57 01/17/24 11:30 Pulse Ox 90 L 01/17/24 11:30 FiO2 Intake & Output 01/16/24 01/17/24 01/17/24 18:59 06:59 18:59 Intake Total 858 20 250 Output Total 1550 Balance -692 20 250 Weight 96 kg Intake: IV 20 20 10 Invasive Line 3 20 20 10 Oral 838 240 Output: Urine 1550 Other: Voiding Method External Catheter External Catheter External Catheter - Exam GENERAL EXAM: Alert, 83-year-old male, on Airvo, 60% FiO2 with a flow of 40 L, resting in bed, comfortable in no apparent distress. The patient looks quite debilitated and is awake and alert and communicating No signs of any obvious respiratory distress. HEAD: Normocephalic. EYES: Normal reaction of pupils, equal size. NOSE: Clear with pink turbinates. THROAT: No erythema or exudates. NECK: No masses, no JVD. CHEST: No chest wall deformity. LUNGS: Diminished breath sounds specially lung base bilaterally worse on the right. Scattered crackles heard bibasilarly. No wheezing. CVS: S1 and S2 normal with no audible murmur, regular rhythm. ABDOMEN: No hepatosplenomegaly, normal bowel sounds, no guarding or rigidity. SPINE: Surgical dressing has been applied to the lumbar spine post incision and drainage. No drains. SKIN: No rashes CENTRAL NERVOUS SYSTEM: No focal deficits, tone is normal in all 4 extremities. Generalized motor weakness in all 4 extremities. EXTREMITIES: There is no peripheral edema. No clubbing, no cyanosis. Peripheral pulses are intact. - Labs CBC & Chem 7: 01/17/24 05:43 01/17/24 05:43 Labs: Abnormal Lab Results - Last 24 Hours (Table) 01/17/24 01/17/24 Range/Units 05:43 05:43 RBC 3.52 L (4.30-5.90) m/uL Hgb 10.7 L (13.0-17.5) gm/dL Hct 36.1 L (39.0-53.0) % MCV 102.7 H (80.0-100.0) fL MCHC 29.6 L (31.0-37.0) g/dL Plt Count 134 L (150-450) k/uL Lymphocytes # 0.7 L (1.0-4.8) k/uL Sodium 131 L (137-145) mmol/L Carbon Dioxide 33 H (22-30) mmol/L BUN 43 H (9-20) mg/dL Creatinine 1.34 H (0.66-1.25) mg/dL Calcium 8.0 L (8.4-10.2) mg/dL Alkaline Phosphatase 258 H (38-126) U/L Total Protein 4.6 L (6.3-8.2) g/dL Albumin 2.5 L (3.5-5.0) g/dL Microbiology - Last 24 Hours (Table) 01/11/24 15:36 Blood Culture - Final Blood 01/13/24 10:51 Gram Stain - Preliminary Other - Other Wound Culture - Preliminary Methicillin resist S. aureus Group D Enterococcus Assessment and Plan Plan: Acute hypoxic respiratory failure secondary to atelectatic changes in the lung bases in addition to CHF and development of bilateral pleural effusion right more than left. There is a progressive worsening in the oxygenation status and the patient is currently on Airvo with 40 L with FiO2 of 60%. Pneumonia is doubtful and the patient has been appropriately covered with a combination of cefepime and vancomycin.. The antibiotics have been modified to include vancomycin only. Pulmonary embolism is doubtful as the patient is on anticoagulation with Eliquis. Ultrasound of the chest was also completed and there is no sizable pleural effusion. The patient is responding to diuretics. The patient was given a follow-up chest x-ray today and shows atelectatic changes, pulm vessel congestion and cardiomegaly. fall with fracture to the spine, status post open treatment L2-3 for hyperextension fracture, L1-L4 posterior lateral fusion. Dehiscence of lumbar incisions with suspected infection the patient has undergone an incision and drainage, cultures are negative. Patient is currently on a combination of cefepime and vancomycin. Lumbar wound dehiscence due to pressure ulceration, cultures were positive for MRSA and cefepime was discontinued and the patient remains on vancomycin Acute kidney injury and the creatinine is stable for now and the patient is producing good urine output while being on Lasix. Chronic atrial fibrillation anticoagulated with Eliquis Chronic systolic heart failure With an ejection fraction 25 to 30% Moderate to severe pulmonary hypertension History of mild coronary artery disease COPD, currently inactive and stable History of colon cancer, to be sched COPD ed for colectomy once recovered History of CVA/TIA History of hearing disorder Hyperlipidemia Former smoker Poor functional performance based on the above-mentioned multiple comorbidities, and the patient has generalized motor weakness in all 4 extremities Plan Discontinue the oral Lasix and switch this patient to Lasix 40 mg IV every 12 hours Monitor fluid balance and urine output Monitor creatinine Attempted titrate FiO2 down, currently on Airvo at 40 L with FiO2 of 60% Provide this patient with an incentive spirometer Continue vancomycin, monitor levels Ultrasound of the chest shows no sizable pleural effusion Chest x-ray from today is noted and there are some respiratory failure changes lung bases. Will continue to follow
[2024-01-17] MEDS: FUROSEMIDE 10 MG/ML 4 ML VIAL IV SCH (20:36)
--- NOTE | 2024-01-18 07:29 | XR ---
EXAMINATION TYPE: XR chest 1V DATE OF EXAM: 01/18/2024 COMPARISON: 01/17/2024 CLINICAL INDICATION: Male, 83 years old with history of Acute hypoxic respiratory failure; TECHNIQUE: Single frontal view of the chest is obtained. FINDINGS: Ill-defined small infiltrate in the right lung base is stable. Heart and pulmonary vasculature are no rmal for the technique. There is no pneumothorax. There is a left shoulder prosthesis otherwise the osseous structures are intact IMPRESSION: Acute cardiopulmonary process in the left lung base unchanged compared to previous. [facility], , 01/18/2024 7:26 AM
[2024-01-18 07:53] LABS: Basophils % (A) 0 %; Eosinophils # (A) 0.2 k/uL (0-0.7); Eosinophils % (A) 3 %; HCT 35.9 % (39.0-53.0); HGB 11.2 gm/dL (13.0-17.5); Hypochromasia Marked; Lymphocytes # (A) 0.6 k/uL (1.0-4.8); Lymphocytes % (A) 10 %; MCH 31.8 pg (25.0-35.0); MCHC 31.2 g/dL (31.0-37.0); MCV 101.7 fL (80.0-100.0); Macrocytosis Slight; Mean Platelet Volume 8.5; Monocytes # (A) 0.4 k/uL (0-1.0); Monocytes % (A) 7 %; Neutrophils # (A) 4.6 k/uL (1.3-7.7); Neutrophils % (A) 78 %; Platelet Count 146 k/uL (150-450); Poikilocytosis Slight; RBC 3.52 m/uL (4.30-5.90); RDW 14.2 % (11.5-15.5); WBC 5.9 k/uL (3.8-10.6)
[2024-01-18 08:03] LABS: ALT 21 U/L (4-49); AST 24 U/L (17-59); African American GFR (CKD) 56 (>60 ml/min/1.73 sqM); Albumin 2.8 g/dL (3.5-5.0); Alkaline Phosphatase 264 U/L (38-126); Anion Gap 3 mmol/L; Blood Urea Nitrogen 58 mg/dL (9-20); Calcium 8.5 mg/dL (8.4-10.2); Carbon Dioxide 38 mmol/L (22-30); Chloride 93 mmol/L (98-107); Glucose 89 mg/dL (74-99); Non-African American GFR(CKD) 48 (>60 ml/min/1.73 sqM); Potassium 3.4 mmol/L (3.5-5.1); Sodium 134 mmol/L (137-145); Total Bilirubin 0.8 mg/dL (0.2-1.3); Total Protein 4.9 g/dL (6.3-8.2)
--- NOTE | 2024-01-18 10:54 | P.PN ---
Subjective Progress Note Date: 01/18/24 Nick Vora, is an 83-year-old male currently in rehab at [facility] who was sent to [facility] emergency room, for worsening shortness of breath decreased O2 saturation, hypotension, generalized weakness and erythema skin breakdown or from back surgical wound. He was evaluated in the emergency room vital examination on presentation revealed a temperature of 98.1 pulse 101 respiration 19 blood pressure 116/59 pulse ox 90% on 5 L nasal cannula Laboratory data revealed a white blood count of 8.9 hemoglobin 11.6 platelet count 138 BUN 29 creatinine 0.97 troponin 0.012 BNP 1470 Testing in the emergency room revealed EKG revealed sinus rhythm with first- degree AV block, CT scan of the lumbar spine revealed evidence of recent fusion L1-L5. Chest x-ray revealed findings suggestive of congestive heart failure, infiltrates of other etiology not excluded. Patient was admitted to medical floor for further evaluation and treatment Past medical history is significant for history of hypertension, history of hyperlipidemia, history of paroxysmal atrial fibrillation, history of benign prostatic hypertrophy, history of decreased hearing, history of invasive colonic adenocarcinoma patient will need surgical intervention in the near future after he is medically stable, history of recent back surgery with lumbar fusion. On review of systems patient is alert and oriented x 3 in no apparent distress there is no fever or chills no headache or dizziness no chest pain he has some s hortness of breath with any activity there is no cough no nausea or vomiting no abdominal pain no diarrhea no constipation no blood in the stools no burning with urination no frequency or urgency and no hematuria. On 01/13/2024, patient was seen and examined on the medical floor he is alert and oriented in no apparent distress, he underwent lumbar wounds I&D today with Dr. Ashton, there is no fever or chills no headache or dizziness no chest pain no shortness of breath no cough no nausea or vomiting no abdominal pain no diarrhea and no urinary symptoms white blood count is 6.3 hemoglobin 11.3 platelet count 97 BUN 31 creatinine 1.03 On 01/14/2024 patient's alert and oriented. Increased oxygen demands. Will consult pulmonary services infectious disease, cardiology, orthopedic services and pulmonary services have all been consulted. Patient remains on Maxipime and Comycin. Patient has been transitioned to p.o. Lasix per cardiology. Current vital signs temp 98.0, heart rate 91, respiratory rate 16, blood pressure 92/54 with a pulse ox of 94% on 13 L high flow On 01/15/2024 patient is alert and oriented x 3. Cultures coming back presumptive MRSA. Patient remains on vancomycin and cefepime. Infectious disease, pulmonary, cardiology and orthopedic services are following. Current vital signs temp 97.3, heart rate 85, respiratory rate 20, blood pressure 132/57 with a pulse ox of 92% on 13 L high flow. Patient did receive IV Lasix yesterday. Patient denies chest pain or shortness of breath. Patient denies nausea vomiting or diarrhea. Patient denies any urinary burning or frequency. On 01/16/2024 patient was seen and examined on the medical floor he is alert and oriented x 3 in no apparent distress there is no fever or chills no headache or dizziness no chest pain no shortness of breath no cough no nausea or vomiting no abdominal pain no diarrhea, he is complaining of constipation no blood in the stools no burning with urination no frequency or urgency and no hematuria. On 01/17/2024 patient is alert and oriented x 3. Patient remains on IV vancomycin. Current vital signs temp 97.6, heart 72, respiratory rate 18, blood pressure 98/52 with a pulse ox of 91% on 9 L. Patient denies chest pain or shortness of breath. Patient denies nausea vomiting or diarrhea. Patient denies any urinary burning or frequency. On 01/18/2024 patient was seen and examined on the medical floor, he is alert and oriented x 3 in no apparent distress he is maintained on Airvo FiO2 62 % temperature is 98 pulse 91 respiration 18 blood pressure 108/56 pulse ox 94% he is complaining of generalized weakness and constipation, otherwise he denies any complaints there is no fever or chills no headache or dizziness no chest pain no shortness of breath no cough no nausea or vomiting no abdominal pain no diarrhea and no urinary symptoms, white blood count is 5.9 hemoglobin 11.2 platelet count 146, sodium 134 potassium 3.4 chloride 93 BUN 58 creatinine 1.36 he remains on IV antibiotic vancomycin. Objective - Vital Signs Vital signs: Vital Signs Temp 98 F 01/18/24 03:15 Pulse 90 01/18/24 08:15 Resp 18 01/18/24 03:15 BP 108/56 01/18/24 03:15 Pulse Ox 94 L 01/18/24 08:15 FiO2 62 01/18/24 08:15 Intake & Output 01/17/24 01/18/24 01/18/24 18:59 06:59 18:59 Intake Total 250 Output Total 400 Balance -150 Weight 71 kg Intake: IV 10 Invasive Line 3 10 Oral 240 Output: Urine 400 Other: Voiding Method External Catheter External Catheter - Exam In general patient is alert and oriented x 3 in no distress HEENT head normocephalic and atraumatic Neck is supple no JVD no goiter no lymphadenopathy no carotid bruit Chest examination reveals a scattered crackles bilaterally no wheezing Cardiac exam reveals regular heart sounds S1 and S2 no gallops no murmurs Abdomen is soft nontender no organomegaly with normal bowel sounds Extremity exam reveals no edema no cyanosis or clubbing Back exam reveals mild erythema around the surgical wound with mild tenderness Neurological examination reveals generalized weakness with no gross focal deficits - Labs CBC & Chem 7: 01/18/24 07:15 01/18/24 07:15 Labs: Abnormal Lab Results - Last 24 Hours (Table) 01/18/24 01/18/24 Range/Units 07:15 07:15 RBC 3.52 L (4.30-5.90) m/uL Hgb 11.2 L (13.0-17.5) gm/dL Hct 35.9 L (39.0-53.0) % MCV 101.7 H (80.0-100.0) fL Plt Count 146 L (150-450) k/uL Lymphocytes # 0.6 L (1.0-4.8) k/uL Sodium 134 L (137-145) mmol/L Potassium 3.4 L (3.5-5.1) mmol/L Chloride 93 L (98-107) mmol/L Carbon Dioxide 38 H (22-30) mmol/L BUN 58 H (9-20) mg/dL Creatinine 1.36 H (0.66-1.25) mg/dL Alkaline Phosphatase 264 H (38-126) U/L Total Protein 4.9 L (6.3-8.2) g/dL Albumin 2.8 L (3.5-5.0) g/dL Microbiology - Last 24 Hours (Table) 01/13/24 10:51 Gram Stain - Final Other - Other Wound Culture - Final Methicillin resist S. aureus Enterococcus faecalis 01/13/24 10:51 Anaerobic Culture - Final Other - Other 01/13/24 10:51 Anaerobic Culture - Final Other - Other Assessment and Plan Plan: Acute exacerbation of systolic congestive heart failure Cardiomyopathy with ejection fraction 25 to 30% on echocardiogram done on 09/07/2023 Worsening shortness of breath and decreased O2 saturation likely related to congestive heart failure Mild erythema and tenderness in the lumbar surgical wound site with wound infection cultures currently growing presumptive MRSA Underlying history of paroxysmal atrial fibrillation Underlying history of hypertension Underlying history of hyperlipidemia Underlying history of colon adenocarcinoma patient will need surgery when medically stable Physical debility Moderate to severe protein calorie malnutrition At this time patient was seen and examined Home medications reviewed and reordered Consultation for infectious disease, cardiology, and orthopedic surgery initiated For DVT prophylaxis, patient is on Eliquis Prognosis is guarded will follow closely
--- NOTE | 2024-01-18 14:34 | P.PN ---
Subjective Progress Note Date: 01/18/24 84-year-old male patient admitted back to the hospital on 01/12/2024 from [facility] following a distance of a surgical incision to the lumbar spine. The wound edges were not approximated and pulling away from the incision. There was also mild to moderate amount of serous drainage identified for that reason the patient was brought into the hospital. The patient is status post open reduction to fixation of an L2-L3 with minimal invasive stabilization of L1 S1 and L2 L4 laminectomy. The patient underwent incision and drainage and the patient is currently on a combination of cefepime and vancomycin. Cultures are still negative for now. The patient is hemodynamically stable. During this current admission, the patient had progressive worsening in his oxygen requi rements and the patient is currently on 11 L/min nasal cannula and for that reason the pulmonary cavitation was requested. I ordered a stat chest x-ray and this was completed and the patient has interstitial edema and bilateral pleural effusion right more than left. He has a weak cough. No reported aspiration. The patient has pulm vessel congestion/CHF. The patient is currently on oral Lasix. Blood work shows a white cell count of 7.9 with a hemoglobin 10.6 and a platelet count of 114. BUN 32 with a creatinine of 1.3 current serum bicarb is at 37 and sodium levels at 136. Procalcitonin level is at 0.17. He has a Mulligan catheter in place and is producing adequate amount of urine output. Fluid balance has been -2 L over the past 24 hours. On 01/15/2024, the patient is stableWithout any interval worsening shortness of breath. The patient is currently on 10 L of oxygen by nasal cannula with a pulse ox of 95%. Using incentive spirometer. He was given Lasix yesterday and the patient produced adequate urine output. He did end up pulling his Mulligan catheter and he currently has a condom cath and will monitoring his renal function and his urine output. Creatinine from today is at 1.21. No other complaints otherwise for now. He remains on IV vancomycin as the patient's wou nd culture was positive for MRSA. On 01/16/2024, the patient is being seen for a follow-up. The patient is calm and comfortable. There has been interval improvement the patient's oxygenation and the patient is currently down to 7 L of oxygen by nasal cannula. He is using incentive spirometer. He was given Lasix yesterday and the net fluid balance is -1.5 L over the past 24 hours. Creatinine stable at 1.24 with a BUN of 38. Serum bicarb is at 35. Sodium levels at 133. WBC count is 5.9 with a hemoglobin of 11.3. The patient remains on vancomycin regarding wound infection. No other new complaints otherwise for now. Remains in atrial fibrillation. Remains on anticoagulation with Eliquis. Remains on metoprolol 12.5 mg p.o. daily. Rest of the medications are essentially unchanged. Follow- up chest x-ray from today continues to show some atelectatic changes in lung bases bilaterally. Findings are essentially stable On 01/17/2024, the patient is being seen for a follow-up. The patient is currently hypoxic on 10 L of oxygen by nasal cannula. Pulse ox in the mid 80s. Based on that, the patient was placed on Airvo at 40 L with an FiO2 of 60%. A repeat chest x-ray was also requested and this was reviewed. The chest x-ray from today showing stable cardiomegaly, pulm vessel congestion, small bilateral pleural effusions and overall chest x-ray finding is consistent with CHF. There is some atelectatic changes in the lung bases bilaterally. The white cell count is 6.2 with a heme of 10.7 and a platelet count of 134. BUN is 43 with a creatinine of 1.34 and the creatinine remains stable. Sodium level is 131. Potassium level is at 3.7. The patient remains on IV vancomycin. The patient remains on Lasix 40 mg p.o. daily. Remains on anticoagulation with Eliquis. Remains on DuoNeb nebulizers [id number] and a combination of metoprolol XL 12.5 mg p.o. daily and amiodarone 12 mg p.o. daily. On 01/18/2024, the patient is being seen for a follow-up. He remains on oxygen Airvo at 40 L with an FiO2 of 60%. Pulse ox in the order of 95%. Not much cooperative with his incentive spirometer. He remains on IV Lasix. The patient is in a negative fluid balance. The BUN is at 58 with a creatinine of 1.36 and a sodium levels at 134 and a potassium level is at 3.4. Serum bicarbonate 38. The white cell count of 5.9 with a hemoglobin 11.2 and a platelet count of 146. The patient remains on DuoNeb nebulized treatments [id number]. The patient remains on IV vancomycin. Remains on anticoagulation with Eliquis 5 mg p.o. twice a day. IV Lasix 40 mg every 12 hours. Objective - Vital Signs Vital signs: Vital Signs Temp 98 F 01/18/24 03:15 Pulse 90 01/18/24 08:15 Resp 18 01/18/24 03:15 BP 108/56 01/18/24 03:15 Pulse Ox 94 L 01/18/24 08:15 FiO2 62 01/18/24 08:15 Intake & Output 01/17/24 01/18/24 01/18/24 18:59 06:59 18:59 Intake Total 250 110 Output Total 400 Balance -150 110 Weight 71 kg Intake: IV 10 Invasive Line 3 10 Oral 240 110 Output: Urine 400 Other: Voiding Method External Catheter External Catheter - Exam GENERAL EXAM: Alert, 83-year-old male, on Airvo, 60% FiO2 with a flow of 40 L, resting in bed, comfortable in no apparent distress. The patient looks quite debilitated and is awake and alert and communicating No signs of any obvious respiratory distress. HEAD: Normocephalic. EYES: Normal reaction of pupils, equal size. NOSE: Clear with pink turbinates. THROAT: No erythema or exudates. NECK: No masses, no JVD. CHEST: No chest wall deformity. LUNGS: Diminished breath sounds specially lung base bilaterally worse on the right. Scattered crackles heard bibasilarly. No wheezing. CVS: S1 and S2 normal with no audible murmur, regular rhythm. ABDOMEN: No hepatosplenomegaly, normal bowel sounds, no guarding or rigidity. SPINE: Surgical dressing has been applied to the lumbar spine post incision and drainage. No drains. SKIN: No rashes CENTRAL NERVOUS SYSTEM: No focal deficits, tone is normal in all 4 extremities. Generalized motor weakness in all 4 extremities. EXTREMITIES: There is no peripheral edema. No clubbing, no cyanosis. Peripheral pulses are intact. - Labs CBC & Chem 7: 01/18/24 07:15 01/18/24 07:15 Labs: Abnormal Lab Results - Last 24 Hours (Table) 01/18/24 01/18/24 Range/Units 07:15 07:15 RBC 3.52 L (4.30-5.90) m/uL Hgb 11.2 L (13.0-17.5) gm/dL Hct 35.9 L (39.0-53.0) % MCV 101.7 H (80.0-100.0) fL Plt Count 146 L (150-450) k/uL Lymphocytes # 0.6 L (1.0-4.8) k/uL Sodium 134 L (137-145) mmol/L Potassium 3.4 L (3.5-5.1) mmol/L Chloride 93 L (98-107) mmol/L Carbon Dioxide 38 H (22-30) mmol/L BUN 58 H (9-20) mg/dL Creatinine 1.36 H (0.66-1.25) mg/dL Alkaline Phosphatase 264 H (38-126) U/L Total Protein 4.9 L (6.3-8.2) g/dL Albumin 2.8 L (3.5-5.0) g/dL Microbiology - Last 24 Hours (Table) 01/13/24 10:51 Gram Stain - Final Other - Other Wound Culture - Final Methicillin resist S. aureus Enterococcus faecalis 01/13/24 10:51 Anaerobic Culture - Final Other - Other 01/13/24 10:51 Anaerobic Culture - Final Other - Other Assessment and Plan Plan: Acute hypoxic respiratory failure secondary to atelectatic changes in the lung bases in addition to CHF and development of bilateral pleural effusion right more than left. There is a progressive worsening in the oxygenation status and the patient is currently on Airvo with 40 L with FiO2 of 60%. Pneumonia is doubtful and the patient has been appropriately covered with vancomycin.. Pulmonary embolism is doubtful as the patient is on anticoagulation with Eliquis. Ultrasound of the chest was also completed and there is no sizable pleural effusion. The patient is responding to diuretics. The patient was given a follow-up chest x-ray today and shows atelectatic changes, pulm vessel congestion and cardiomegaly. Continues to have some atelectatic changes in lung base bilaterally. fall with fracture to the spine, status post open treatment L2-3 for hyperextension fracture, L1-L4 posterior lateral fusion. Dehiscence of lumbar incisions with suspected infection the patient has undergone an incision and drainage, cultures are negative. Patient is currently on a combination of cefepime and vancomycin. Lumbar wound dehiscence due to p ressure ulceration, cultures were positive for MRSA and the patient remains on vancomycin Acute kidney injury and the creatinine is stable for now and the patient is producing good urine output while being on Lasix. Chronic atrial fibrillation anticoagulated with Eliquis Chronic systolic heart failure With an ejection fraction 25 to 30% Moderate to severe pulmonary hypertension History of mild coronary artery disease COPD, currently inactive and stable [facility] History of CVA/TIA History of hearing disorder Hyperlipidemia Former smoker Poor functional performance based on the above-mentioned multiple comorbidities, and the patient has generalized motor weakness in all 4 extremities Plan Continue IV Lasix 40 mg IV every 12 hours Monitor fluid balance and urine output Monitor creatinine titrate FiO2 down, currently on Airvo at 40 L with FiO2 of 60% Provide this patient with an incentive spirometer Continue vancomycin, monitor levels Ultrasound of the chest shows no sizable pleural effusion Chest x-ray from today is noted and there are some respiratory failure changes lung bases. Will continue to follow
[2024-01-18] MEDS: LACTULOSE 20 GM/30 ML CUP PO SCH (15:10)
--- NOTE | 2024-01-18 15:23 | P.PN ---
Subjective Progress Note Date: 01/18/24 Principal diagnosis: Reason for follow-up is possible lumbar surgical site infection Patient is a 83-year-old male with a past medical history significant for CVA TIA hypertension hyperlipidemia atrial fibrillation prostate disorder patient is status post lumbar fusion surgery completed on 12/27/2023 has been brought back to the hospital concerning for drainage from his lumbar incision and concerning for surgical site infection.Patient was taken to the OR morning of 01/13/2024 and is status post lumbar wound I&D and cultures. On today's evaluation that is 01/18/2024, the patient continues to be afebrile, the patient is on high flow nasal cannula oxygen however denies any worsening shortness of breath, the Pt denies having any chest pain or cough, the patient h as been complaining of some abdominal discomfort as he did not have any bowel movement for the last few days but no vomiting no worsening pain to the lumbar incision area. Patient white count is 5.9, creatinine is 1.36 blood culture remains to be negative local culture positive for MRSA Enterococcus faecalis both sensitive to vancomycin Objective - Vital Signs Vital signs: Vital Signs Temp 98.1 F 01/18/24 10:20 Pulse 94 01/18/24 14:15 Resp 16 01/18/24 14:15 BP 105/57 01/18/24 11:45 Pulse Ox 95 01/18/24 12:07 FiO2 62 01/18/24 12:07 Intake & Output 01/17/24 01/18/24 01/18/24 18:59 06:59 18:59 Intake Total 250 350 Output Total 400 Balance -150 350 Weight 71 kg Intake: IV 10 Invasive Line 3 10 Oral 240 350 Output: Urine 400 Other: Voiding Method External Catheter External Catheter External Catheter - Exam GENERAL DESCRIPTION: An elderly male lying in bed in no distress RESPIRATORY SYSTEM: Unlabored breathing , decreased breath sounds at bases HEART: S1 S2 regular rate and rhythm , ABDOMEN: Soft , no tenderness EXTREMITIES: No edema feet - Labs CBC & Chem 7: 01/18/24 07:15 01/18/24 07:15 Labs: Abnormal Lab Results - Last 24 Hours (Table) 01/18/24 01/18/24 Range/Units 07:15 07:15 RBC 3.52 L (4.30-5.90) m/uL Hgb 11.2 L (13.0-17.5) gm/dL Hct 35.9 L (39.0-53.0) % MCV 101.7 H (80.0-100.0) fL Plt Count 146 L (150-450) k/uL Lymphocytes # 0.6 L (1.0-4.8) k/uL Sodium 134 L (137-145) mmol/L Potassium 3.4 L (3.5-5.1) mmol/L Chloride 93 L (98-107) mmol/L Carbon Dioxide 38 H (22-30) mmol/L BUN 58 H (9-20) mg/dL Creatinine 1.36 H (0.66-1.25) mg/dL Alkaline Phosphatase 264 H (38-126) U/L Total Protein 4.9 L (6.3-8.2) g/dL Albumin 2.8 L (3.5-5.0) g/dL Microbiology - Last 24 Hours (Table) 01/13/24 10:51 Gram Stain - Final Other - Other Wound Culture - Final Methicillin resist S. aureus Enterococcus faecalis 01/13/24 10:51 Anaerobic Culture - Final Other - Other 01/13/24 10:51 Anaerobic Culture - Final Other - Other Assessment and Plan (1) Wound infection after surgery Current Visit: Yes Status: Acute Code(s): T81.49XA - INFECTION FOLLOWING A PROCEDURE, OTHER SURGICAL SITE, INIT SNOMED Code(s): 91969918 (2) Penicillin allergy Current Visit: No Status: Acute Code(s): Z88.0 - ALLERGY STATUS TO PENICILLIN SNOMED Code(s): 21895477 Plan: 1patient presented to hospital with generalized weakness also complaining of discomfort to the lumbar surgical site with minimal drainage concerning for possible lumbar surgical site infection superficial versus deep and will need to cover for the resistant gram-positive as well as gram-negative pathogen. 2patient with a penicillin allergy that will limit the number of antibiotics safe to use. 3patient is status post I&D of his lumbar incision and cultures which are currently growing MRSA as well as group D Enterococcus which is sensitive to penicillin as well as vancomycin 4patient currently being treated with vancomycin will need at least 6-week course of IV antibiotic on discharge Dictation was produced using [employer] dictation software. please excuse any grammatical, word or spelling errors. Time with Patient: Less than 30
[2024-01-18] MEDS: VANCOMYCIN TROUGH DUE 1 EACH MISC MISCELLANE ONE (20:36)
[2024-01-18] MEDS ORDERED: VANCOMYCIN IV PER PHARMACY 1 EACH MISC MISCELLANE PRN (21:16)
--- NOTE | 2024-01-19 07:12 | XR ---
EXAMINATION TYPE: XR chest 1V DATE OF EXAM: 01/19/2024 COMPARISON: 01/18/2024 CLINICAL INDICATION: Male, 83 years old with history of Acute hypoxic respiratory failure; TECHNIQUE: Single frontal view of the chest is obtained. FINDINGS: There is minimal stable fluid within the right lung. There are stable small left pleural effusion and atelectasis and/or pneumonic infiltrate. There is no pneumothorax. There is a left shoulder prosthesis lines and assess structures are intact. IMPRESSION: No change in the mild acute cardiopulmonary process involving the lung bases. [facility], , 01/19/2024 7:09 AM
[2024-01-19 08:19] LABS: Basophils % (A) 0 %; Eosinophils # (A) 0.1 k/uL (0-0.7); Eosinophils % (A) 2 %; HCT 37.8 % (39.0-53.0); HGB 11.5 gm/dL (13.0-17.5); Hypochromasia Marked; Lymphocytes # (A) 0.7 k/uL (1.0-4.8); Lymphocytes % (A) 12 %; MCH 31.1 pg (25.0-35.0); MCHC 30.6 g/dL (31.0-37.0); MCV 101.7 fL (80.0-100.0); Macrocytosis Slight; Mean Platelet Volume 8.5; Monocytes # (A) 0.4 k/uL (0-1.0); Monocytes % (A) 7 %; Neutrophils # (A) 4.6 k/uL (1.3-7.7); Neutrophils % (A) 77 %; Platelet Count 145 k/uL (150-450); Poikilocytosis Slight; RBC 3.71 m/uL (4.30-5.90); RDW 14.2 % (11.5-15.5)
[2024-01-19 08:35] LABS: ALT 21 U/L (4-49); AST 28 U/L (17-59); African American GFR (CKD) 55 (>60 ml/min/1.73 sqM); Alkaline Phosphatase 269 U/L (38-126); Blood Urea Nitrogen 64 mg/dL (9-20); Calcium 8.6 mg/dL (8.4-10.2); Chloride 91 mmol/L (98-107); Glucose 87 mg/dL (74-99); Non-African American GFR(CKD) 48 (>60 ml/min/1.73 sqM); Potassium 3.3 mmol/L (3.5-5.1); Sodium 136 mmol/L (137-145); Total Bilirubin 0.9 mg/dL (0.2-1.3); Total Protein 5.2 g/dL (6.3-8.2)
[2024-01-19 08:42] LABS: Anion Gap 9 mmol/L; Carbon Dioxide 36 mmol/L (22-30)
[2024-01-19] MEDS ORDERED: Potassium Replacement Protocol 1 EACH MISC MISCELLANE PRN (09:24)
--- NOTE | 2024-01-19 09:25 | P.PN ---
Subjective Progress Note Date: 01/19/24 Nick Vora, is an 83-year-old male currently in rehab at [facility] who was sent to [facility] emergency room, for worsening shortness of breath decreased O2 saturation, hypotension, generalized weakness and erythema skin breakdown or from back surgical wound. He was evaluated in the emergency room vital examination on presentation revealed a temperature of 98.1 pulse 101 respiration 19 blood pressure 116/59 pulse ox 90% on 5 L nasal cannula Laboratory data revealed a white blood count of 8.9 hemoglobin 11.6 platelet count 138 BUN 29 creatinine 0.97 troponin 0.012 BNP 1470 Testing in the emergency room revealed EKG revealed sinus rhythm with first- degree AV block, CT scan of the lumbar spine revealed evidence of recent fusion L1-L5. Chest x-ray revealed findings suggestive of congestive heart failure, infiltrates of other etiology not excluded. Patient was admitted to medical floor for further evaluation and treatment Past medical history is significant for history of hypertension, history of hyperlipidemia, history of paroxysmal atrial fibrillation, history of benign prostatic hypertrophy, history of decreased hearing, history of invasive colonic adenocarcinoma patient will need surgical intervention in the near future after he is medically stable, history of recent back surgery with lumbar fusion. On review of systems patient is alert and oriented x 3 in no apparent distress there is no fever or chills no headache or dizziness no chest pain he has some s hortness of breath with any activity there is no cough no nausea or vomiting no abdominal pain no diarrhea no constipation no blood in the stools no burning with urination no frequency or urgency and no hematuria. On 01/13/2024, patient was seen and examined on the medical floor he is alert and oriented in no apparent distress, he underwent lumbar wounds I&D today with Dr. sAhton, there is no fever or chills no headache or dizziness no chest pain no shortness of breath no cough no nausea or vomiting no abdominal pain no diarrhea and no urinary symptoms white blood count is 6.3 hemoglobin 11.3 platelet count 97 BUN 31 creatinine 1.03 On 01/14/2024 patient's alert and oriented. Increased oxygen demands. Will consult pulmonary services infectious disease, cardiology, orthopedic services and pulmonary services have all been consulted. Patient remains on Maxipime and Comycin. Patient has been transitioned to p.o. Lasix per cardiology. Current vital signs temp 98.0, heart rate 91, respiratory rate 16, blood pressure 92/54 with a pulse ox of 94% on 13 L high flow On 01/15/2024 patient is alert and oriented x 3. Cultures coming back presumptive MRSA. Patient remains on vancomycin and cefepime. Infectious disease, pulmonary, cardiology and orthopedic services are following. Current vital signs temp 97.3, heart rate 85, respiratory rate 20, blood pressure 132/57 with a pulse ox of 92% on 13 L high flow. Patient did receive IV Lasix yesterday. Patient denies chest pain or shortness of breath. Patient denies nausea vomiting or diarrhea. Patient denies any urinary burning or frequency. On 01/16/2024 patient was seen and examined on the medical floor he is alert and oriented x 3 in no apparent distress there is no fever or chills no headache or dizziness no chest pain no shortness of breath no cough no nausea or vomiting no abdominal pain no diarrhea, he is complaining of constipation no blood in the stools no burning with urination no frequency or urgency and no hematuria. On 01/17/2024 patient is alert and oriented x 3. Patient remains on IV vancomycin. Current vital signs temp 97.6, heart 72, respiratory rate 18, blood pressure 98/52 with a pulse ox of 91% on 9 L. Patient denies chest pain or shortness of breath. Patient denies nausea vomiting or diarrhea. Patient denies any urinary burning or frequency. On 01/18/2024 patient was seen and examined on the medical floor, he is alert and oriented x 3 in no apparent distress he is maintained on Airvo FiO2 62 % temperature is 98 pulse 91 respiration 18 blood pressure 108/56 pulse ox 94% he is complaining of generalized weakness and constipation, otherwise he denies any complaints there is no fever or chills no headache or dizziness no chest pain no shortness of breath no cough no nausea or vomiting no abdominal pain no diarrhea and no urinary symptoms, white blood count is 5.9 hemoglobin 11.2 platelet count 146, sodium 134 potassium 3.4 chloride 93 BUN 58 creatinine 1.36 he remains on IV antibiotic vancomycin. On 01/19/2024 patient is alert and oriented 3 resting comfortably in bed. Patient remains on airvo for oxygen support.Patient remains on IV vancomycin. Creatinine 1.37 bun 64Potassium 3.3 will replace per protocol. Patient denies chest pain or shortness breath. Patient denies nausea vomiting or diarrhea. Patient denies any urinary burning or frequency Objective - Vital Signs Vital signs: Vital Signs Temp 97.7 F 01/19/24 00:00 Pulse 84 01/19/24 08:36 Resp 18 01/19/24 03:48 BP 108/61 01/19/24 03:48 Pulse Ox 98 01/19/24 08:36 FiO2 52 01/19/24 08:36 Intake & Output 01/18/24 01/19/24 01/19/24 18:59 06:59 18:59 Intake Total 590 Output Total 1000 650 Balance -410 -650 Weight 82.5 kg Intake: Oral 590 Output: Urine 1000 650 Other: Voiding Method External Catheter External Catheter - Exam In general patient is alert and oriented x 3 in no distress HEENT head normocephalic and atraumatic Neck is supple no JVD no goiter no lymphadenopathy no carotid bruit Chest examination reveals a scattered crackles bilaterally no wheezing Cardiac exam reveals regular heart sounds S1 and S2 no gallops no murmurs Abdomen is soft nontender no organomegaly with normal bowel sounds Extremity exam reveals no edema no cyanosis or clubbing Back exam reveals mild erythema around the surgical wound with mild tenderness Neurological examination reveals generalized weakness with no gross focal def icits - Labs CBC & Chem 7: 01/19/24 06:57 01/19/24 06:57 Labs: Abnormal Lab Results - Last 24 Hours (Table) 01/18/24 01/19/24 01/19/24 Range/Units 20:12 06:57 06:57 RBC 3.71 L (4.30-5.90) m/uL Hgb 11.5 L (13.0-17.5) gm/dL Hct 37.8 L (39.0-53.0) % MCV 101.7 H (80.0-100.0) fL MCHC 30.6 L (31.0-37.0) g/dL Plt Count 145 L (150-450) k/uL Lymphocytes # 0.7 L (1.0-4.8) k/uL Sodium 136 L (137-145) mmol/L Potassium 3.3 L (3.5-5.1) mmol/L Chloride 91 L (98-107) mmol/L Carbon Dioxide 36 H (22-30) mmol/L BUN 64 H (9-20) mg/dL Creatinine 1.37 H (0.66-1.25) mg/dL Alkaline Phosphatase 269 H (38-126) U/L Total Protein 5.2 L (6.3-8.2) g/dL Albumin 3.0 L (3.5-5.0) g/dL Vancomycin Trough 31.7 H* ug/mL Assessment and Plan Plan: Acute exacerbation of systolic congestive heart failure Cardiomyopathy with ejection fraction 25 to 30% on echocardiogram done on 09/07/2023 Worsening shortness of breath and decreased O2 saturation likely related to congestive heart failure Mild erythema and tenderness in the lumbar surgical wound site with wound infection cultures currently growing presumptive MRSA Underlying history of paroxysmal atrial fibrillation Underlying history of hypertension Underlying history of hyperlipidemia Underlying history of colon adenocarcinoma patient will need surgery when medically stable Physical debility Moderate to severe protein calorie malnutrition At this time patient was seen and examined Home medications reviewed and reordered Consultation for infectious disease, cardiology, and orthopedic surgery initiated For DVT prophylaxis, patient is on Eliquis Prognosis is guarded will follow closely
[2024-01-19] MEDS: POTASSIUM CHLORIDE ER 20 MEQ TAB.ER PO SCH (11:52)
--- NOTE | 2024-01-19 13:35 | P.PN ---
Subjective Progress Note Date: 01/19/24 Principal diagnosis: Reason for follow-up is possible lumbar surgical site infection Patient is a 83-year-old male with a past medical history significant for CVA TIA hypertension hyperlipidemia atrial fibrillation prostate disorder patient is status post lumbar fusion surgery completed on 12/27/2023 has been brought back to the hospital concerning for drainage from his lumbar incision and concerning for surgical site infection.Patient was taken to the OR morning of 01/13/2024 and is status post lumbar wound I&D and cultures. On today's evaluation that is 01/19/2024, Patient is afebrile patient is currently on high flow nasal cannula oxygen with a 62% FiO2 however denies having any worsening shortness of breath, the patient denies any chest pain or cough, the patient denies any nausea vomiting did not have any abdominal pain and did not have a bowel movement. Patient white count 6.0, creat is 1.37 Vanco mycin random is 29.3 Objective - Vital Signs Vital signs: Vital Signs Temp 99.5 F 01/19/24 08:10 Pulse 96 01/19/24 11:37 Resp 16 01/19/24 11:20 BP 105/56 01/19/24 11:20 Pulse Ox 92 L 01/19/24 11:20 FiO2 62 01/19/24 11:27 Intake & Output 01/18/24 01/19/24 01/19/24 18:59 06:59 18:59 Intake Total 590 360 Output Total 1000 650 450 Balance -410 -650 -90 Weight 82.5 kg Intake: Oral 590 360 Output: Urine 1000 650 450 Other: Voiding Method External Catheter External Catheter External Catheter - Exam GENERAL DESCRIPTION: An elderly male lying in bed in no distress RESPIRATORY SYSTEM: Unlabored breathing , decreased breath sounds at bases HEART: S1 S2 regular rate and rhythm , ABDOMEN: Soft , no tenderness EXTREMITIES: No edema feet - Labs CBC & Chem 7: 01/19/24 06:57 01/19/24 06:57 Labs: Abnormal Lab Results - Last 24 Hours (Table) 01/18/24 01/19/24 01/19/24 Range/Units 20:12 06:57 06:57 RBC 3.71 L (4.30-5.90) m/uL Hgb 11.5 L (13.0-17.5) gm/dL Hct 37.8 L (39.0-53.0) % MCV 101.7 H (80.0-100.0) fL MCHC 30.6 L (31.0-37.0) g/dL Plt Count 145 L (150-450) k/uL Lymphocytes # 0.7 L (1.0-4.8) k/uL Sodium 136 L (137-145) mmol/L Potassium 3.3 L (3.5-5.1) mmol/L Chloride 91 L (98-107) mmol/L Carbon Dioxide 36 H (22-30) mmol/L BUN 64 H (9-20) mg/dL Creatinine 1.37 H (0.66-1.25) mg/dL Alkaline Phosphatase 269 H (38-126) U/L Total Protein 5.2 L (6.3-8.2) g/dL Albumin 3.0 L (3.5-5.0) g/dL Vancomycin Trough 31.7 H* ug/mL Assessment and Plan (1) Wound infection after surgery Current Visit: Yes Status: Acute Code(s): T81.49XA - INFECTION FOLLOWING A PROCEDURE, OTHER SURGICAL SITE, INIT SNOMED Code(s): 86118888 (2) Penicillin allergy Current Visit: No Status: Acute Code(s): Z88.0 - ALLERGY STATUS TO PENICILLIN SNOMED Code(s): 59086094 Plan: 1patient presented to hospital with generalized weakness also complaining of discomfort to the lumbar surgical site with minimal drainage concerning for possible lumbar surgical site infection superficial versus deep and will need to cover for the resistant gram-positive as well as gram-negative pathogen. 2patient with a penicillin allergy that will limit the number of antibiotics safe to use. 3patient is status post I&D of his lumbar incision and cultures which are currently growing MRSA as well as group D Enterococcus which is sensitive to penicillin as well as vancomycin 4patient vancomycin creatinine is elevated does need to be cut back to keep the trough around 15 we will monitor his kidney function closely continue with the vancomycin Dictation was produced using [employer] dictation software. please excuse any grammatical, word or spelling errors. Time with Patient: Less than 30
--- NOTE | 2024-01-19 13:39 | P.PN ---
Subjective Progress Note Date: 01/19/24 84-year-old male patient admitted back to the hospital on 01/12/2024 from [facility] following a distance of a surgical incision to the lumbar spine. The wound edges were not approximated and pulling away from the incision. There was also mild to moderate amount of serous drainage identified for that reason the patient was brought into the hospital. The patient is status post open reduction to fixation of an L2-L3 with minimal invasive stabilization of L1 S1 and L2 L4 laminectomy. The patient underwent incision and drainage and the patient is currently on a combination of cefepime and vancomycin. Cultures are still negative for now. The patient is hemodynamically stable. During this current admission, the patient had progressive worsening in his oxygen requi rements and the patient is currently on 11 L/min nasal cannula and for that reason the pulmonary cavitation was requested. I ordered a stat chest x-ray and this was completed and the patient has interstitial edema and bilateral pleural effusion right more than left. He has a weak cough. No reported aspiration. The patient has pulm vessel congestion/CHF. The patient is currently on oral Lasix. Blood work shows a white cell count of 7.9 with a hemoglobin 10.6 and a platelet count of 114. BUN 32 with a creatinine of 1.3 current serum bicarb is at 37 and sodium levels at 136. Procalcitonin level is at 0.17. He has a Mulligan catheter in place and is producing adequate amount of urine output. Fluid balance has been -2 L over the past 24 hours. On 01/15/2024, the patient is stableWithout any interval worsening shortness of breath. The patient is currently on 10 L of oxygen by nasal cannula with a pulse ox of 95%. Using incentive spirometer. He was given Lasix yesterday and the patient produced adequate urine output. He did end up pulling his Mulligan catheter and he currently has a condom cath and will monitoring his renal function and his urine output. Creatinine from today is at 1.21. No other complaints otherwise for now. He remains on IV vancomycin as the patient's wou nd culture was positive for MRSA. On 01/16/2024, the patient is being seen for a follow-up. The patient is calm and comfortable. There has been interval improvement the patient's oxygenation and the patient is currently down to 7 L of oxygen by nasal cannula. He is using incentive spirometer. He was given Lasix yesterday and the net fluid balance is -1.5 L over the past 24 hours. Creatinine stable at 1.24 with a BUN of 38. Serum bicarb is at 35. Sodium levels at 133. WBC count is 5.9 with a hemoglobin of 11.3. The patient remains on vancomycin regarding wound infection. No other new complaints otherwise for now. Remains in atrial fibrillation. Remains on anticoagulation with Eliquis. Remains on metoprolol 12.5 mg p.o. daily. Rest of the medications are essentially unchanged. Follow- up chest x-ray from today continues to show some atelectatic changes in lung bases bilaterally. Findings are essentially stable On 01/17/2024, the patient is being seen for a follow-up. The patient is currently hypoxic on 10 L of oxygen by nasal cannula. Pulse ox in the mid 80s. Based on that, the patient was placed on Airvo at 40 L with an FiO2 of 60%. A repeat chest x-ray was also requested and this was reviewed. The chest x-ray from today showing stable cardiomegaly, pulm vessel congestion, small bilateral pleural effusions and overall chest x-ray finding is consistent with CHF. There is some atelectatic changes in the lung bases bilaterally. The white cell count is 6.2 with a heme of 10.7 and a platelet count of 134. BUN is 43 with a creatinine of 1.34 and the creatinine remains stable. Sodium level is 131. Potassium level is at 3.7. The patient remains on IV vancomycin. The patient remains on Lasix 40 mg p.o. daily. Remains on anticoagulation with Eliquis. Remains on DuoNeb nebulizers [id number] and a combination of metoprolol XL 12.5 mg p.o. daily and amiodarone 12 mg p.o. daily. On 01/18/2024, the patient is being seen for a follow-up. He remains on oxygen Airvo at 40 L with an FiO2 of 60%. Pulse ox in the order of 95%. Not much cooperative with his incentive spirometer. He remains on IV Lasix. The patient is in a negative fluid balance. The BUN is at 58 with a creatinine of 1.36 and a sodium levels at 134 and a potassium level is at 3.4. Serum bicarbonate 38. The white cell count of 5.9 with a hemoglobin 11.2 and a platelet count of 146. The patient remains on DuoNeb nebulized treatments [id number]. The patient remains on IV vancomycin. Remains on anticoagulation with Eliquis 5 mg p.o. twice a day. IV Lasix 40 mg every 12 hours. On 01/19/2024, the patient is being seen for a follow-up. Remains on high flow Airvo oxygen and the patient remains on 40 L and FiO2 of 60%. The flow has been somewhat reduced compared to yesterday. Current pulse ox is in the order of 91 to 92%. Continues to receive diuretics and the patient is on the IV Lasix. Fluid balance is -1 L over the past 24 hours as the patient receiving 40 mg IV Lasix every 12 hours. Barely using his incentive spirometer. The BUN is 64 with a creatinine of 1.37. Electrolytes are all stable. Potassium level is down to 3.3. Serum bicarb is at 36. White cell count is at 6 with a hemoglobin of 11.5 and a platelet count of 145. Vancomycin trough was high at 31.7 dropped down to 29. Objective - Vital Signs Vital signs: Vital Signs Temp 99.5 F 01/19/24 08:10 Pulse 88 01/19/24 08:50 Resp 18 01/19/24 08:10 BP 100/55 01/19/24 08:10 Pulse Ox 98 01/19/24 08:36 FiO2 52 01/19/24 08:36 Intake & Output 01/18/24 01/19/24 01/19/24 18:59 06:59 18:59 Intake Total 590 120 Output Total 1000 650 Balance -410 -650 120 Weight 82.5 kg Intake: Oral 590 120 Output: Urine 1000 650 Other: Voiding Method External Catheter External Catheter External Catheter - Exam GENERAL EXAM: Alert, 83-year-old male, on Airvo, 60% FiO2 with a flow of 40 L, resting in bed, comfortable in no apparent distress. The patient looks quite debilitated and is awake and alert and communicating No signs of any obvious respiratory distress. HEAD: Normocephalic. EYES: Normal reaction of pupils, equal size. NOSE: Clear with pink turbinates. THROAT: No erythema or exudates. NECK: No masses, no JVD. CHEST: No chest wall deformity. LUNGS: Diminished breath sounds specially lung base bilaterally worse on the right. Scattered crackles heard bibasilarly. No wheezing. CVS: S1 and S2 normal with no audible murmur, regular rhythm. ABDOMEN: No hepatosplenomegaly, normal bowel sounds, no guarding or rigidity. SPINE: Surgical dressing has been applied to the lumbar spine post incision and drainage. No drains. SKIN: No rashes CENTRAL NERVOUS SYSTEM: No focal deficits, tone is normal in all 4 extremities. Generalized motor weakness in all 4 extremities. EXTREMITIES: There is no peripheral edema. No clubbing, no cyanosis. Peripheral pulses are intact. - Labs CBC & Chem 7: 01/19/24 06:57 01/19/24 06:57 Labs: Abnormal Lab Results - Last 24 Hours (Table) 01/18/24 01/19/24 01/19/24 Range/Units 20:12 06:57 06:57 RBC 3.71 L (4.30-5.90) m/uL Hgb 11.5 L (13.0-17.5) gm/dL Hct 37.8 L (39.0-53.0) % MCV 101.7 H (80.0-100.0) fL MCHC 30.6 L (31.0-37.0) g/dL Plt Count 145 L (150-450) k/uL Lymphocytes # 0.7 L (1.0-4.8) k/uL Sodium 136 L (137-145) mmol/L Potassium 3.3 L (3.5-5.1) mmol/L Chloride 91 L (98-107) mmol/L Carbon Dioxide 36 H (22-30) mmol/L BUN 64 H (9-20) mg/dL Creatinine 1.37 H (0.66-1.25) mg/dL Alkaline Phosphatase 269 H (38-126) U/L Total Protein 5.2 L (6.3-8.2) g/dL Albumin 3.0 L (3.5-5.0) g/dL Vancomycin Trough 31.7 H* ug/mL Assessment and Plan Plan: Acute hypoxic respiratory failure secondary to atelectatic changes in the lung bases in addition to CHF and development of bilateral pleural effusion right m ore than left. There is a progressive worsening in the oxygenation status and the patient is currently on Airvo with 40 L with FiO2 of 60%. Pneumonia is doubtful and the patient has been appropriately covered with vancomycin.. Pulmonary embolism is doubtful as the patient is on anticoagulation with Eliquis. Ultrasound of the chest was also completed and there is no sizable pleural effusion. The patient is responding to diuretics. The patient was given a follow-up chest x-ray today and shows atelectatic changes, pulm vessel congestion and cardiomegaly. Continues to have some atelectatic changes in lung base bilaterally. fall with fracture to the spine, status post open treatment L2-3 for hyperextension fracture, L1-L4 posterior lateral fusion. Dehiscence of lumbar incisions with suspected infection the patient has undergone an incision and drainage, cultures are negative. Patient is currently on a combination of cefepime and vancomycin. Lumbar wound dehiscence due to pre ssure ulceration, cultures were positive for MRSA and the patient remains on vancomycin Acute kidney injury and the creatinine is stable for now and the patient is producing good urine output while being on Lasix. Chronic atrial fibrillation anticoagulated with Eliquis Chronic systolic heart failure With an ejection fraction 25 to 30% Moderate to severe pulmonary hypertension History of mild coronary artery disease COPD, currently inactive and stable History of colon cancer, to be sched COPD ed for colectomy once recovered History of CVA/TIA History of hearing disorder Hyperlipidemia Former smoker Poor functional performance based on the above-mentioned multiple comorbidities, and the patient has generalized motor weakness in all 4 extremities Plan Continue IV Lasix 40 mg IV every 12 hours, monitor fluid balance and monitor oxygenation Monitor fluid balance and urine output Monitor creatinine titrate FiO2 down, currently on Airvo at 40 L with FiO2 of 60% Provide this patient with an incentive spirometer Continue vancomycin, monitor levels, levels continue to be quite elevated Ultrasound of the chest shows no sizable pleural effusion Chest x-ray from today is noted and there are some respiratory failure changes lung bases. Will continue to follow
[2024-01-20 07:20] LABS: Basophils % (A) 0 %; Eosinophils # (A) 0.2 k/uL (0-0.7); Eosinophils % (A) 3 %; HCT 38.8 % (39.0-53.0); HGB 11.9 gm/dL (13.0-17.5); Hypochromasia Marked; Lymphocytes % (A) 14 %; MCH 30.9 pg (25.0-35.0); MCHC 30.7 g/dL (31.0-37.0); MCV 100.6 fL (80.0-100.0); Macrocytosis Slight; Mean Platelet Volume 8.7; Monocytes # (A) 0.5 k/uL (0-1.0); Monocytes % (A) 7 %; Neutrophils # (A) 5.2 k/uL (1.3-7.7); Neutrophils % (A) 75 %; Platelet Count 167 k/uL (150-450); Poikilocytosis Slight; RBC 3.85 m/uL (4.30-5.90); RDW 14.6 % (11.5-15.5)
[2024-01-20 07:28] LABS: ALT 21 U/L (4-49); AST 34 U/L (17-59); African American GFR (CKD) 55 (>60 ml/min/1.73 sqM); Alkaline Phosphatase 263 U/L (38-126); Blood Urea Nitrogen 73 mg/dL (9-20); Calcium 8.7 mg/dL (8.4-10.2); Chloride 94 mmol/L (98-107); Glucose 93 mg/dL (74-99); Non-African American GFR(CKD) 48 (>60 ml/min/1.73 sqM); Sodium 137 mmol/L (137-145); Total Bilirubin 0.9 mg/dL (0.2-1.3); Total Protein 5.3 g/dL (6.3-8.2)
[2024-01-20 07:30] LABS: Potassium 3.2 mmol/L (3.5-5.1)
[2024-01-20 07:37] LABS: Anion Gap 9 mmol/L
[2024-01-20 07:44] LABS: Carbon Dioxide 34 mmol/L (22-30)
--- NOTE | 2024-01-20 09:40 | XR ---
EXAMINATION TYPE: XR chest 1V DATE OF EXAM: 01/20/2024 COMPARISON: 01/19/2024 CLINICAL INDICATION: Male, 83 years old with history of Acute hypoxic respiratory failure; TECHNIQUE: Single frontal view of the chest is obtained. FINDINGS: Low lung volumes. Heart borderline in size. Prominent patchy bibasilar opacities and suspected trace left pleural effusion without significant change. Partially visualized left shoulder arthroplasty. IMPRESSION: Hypoventilatory changes with similar patchy bibasilar opacities and trace left pleural e ffusion. [facility], , 01/20/2024 9:37 AM
--- NOTE | 2024-01-20 15:57 | P.PN ---
Subjective Progress Note Date: 01/20/24 84-year-old male patient admitted back to the hospital on 01/12/2024 from [facility] following a distance of a surgical incision to the lumbar spine. The wound edges were not approximated and pulling away from the incision. There was also mild to moderate amount of serous drainage identified for that reason the patient was brought into the hospital. The patient is status post open reduction to fixation of an L2-L3 with minimal invasive stabilization of L1 S1 and L2 L4 laminectomy. The patient underwent incision and drainage and the patient is currently on a combination of cefepime and vancomycin. Cultures are still negative for now. The patient is hemodynamically stable. During this current admission, the patient had progressive worsening in his oxygen requirements and the patient is currently on 11 L/min nasal cannula and for that reason the pulmonary cavitation was requested. I ordered a stat chest x-ray and this was completed and the patient has interstitial edema and bilateral pleural effusion right more than left. He has a weak cough. No reported aspiration. The patient has pulm vessel congestion/CHF. The patient is currently on oral Lasix. Blood work shows a white cell count of 7.9 with a hemoglobin 10.6 and a platelet count of 114. BUN 32 with a creatinine of 1.3 current serum bicarb is at 37 and sodium levels at 136. Procalcitonin level is at 0.17. He has a Mulligan catheter in place and is producing adequate amount of urine output. Fluid balance has been -2 L over the past 24 hours. On 01/15/2024, the patient is stableWithout any interval worsening shortness of breath. The patient is currently on 10 L of oxygen by nasal cannula with a pulse ox of 95%. Using incentive spirometer. He was given Lasix yesterday and the patient produced adequate urine output. He did end up pulling his Mulligan catheter and he currently has a condom cath and will monitoring his renal function and his urine output. Creatinine from today is at 1.21. No other complaints otherwise for now. He remains on IV vancomycin as the patient's wound culture was positive for MRSA. On 01/16/2024, the patient is being seen for a follow-up. The patient is calm and comfortable. There has been interval improvement the patient's oxygenation and the patient is currently down to 7 L of oxygen by nasal cannula. He is using incentive spirometer. He was given Lasix yesterday and the net fluid balance is -1.5 L over the past 24 hours. Creatinine stable at 1.24 with a BUN of 38. Serum bicarb is at 35. Sodium levels at 133. WBC count is 5.9 with a hemoglobin of 11.3. The patient remains on vancomycin regarding wound infection. No other new complaints otherwise for now. Remains in atrial fibrillation. Remains on anticoagulation with Eliquis. Remains on metoprolol 12.5 mg p.o. daily. Rest of the medications are essentially unchanged. Follow- up chest x-ray from today continues to show some atelectatic changes in lung bases bilaterally. Findings are essentially stable On 01/17/2024, the patient is being seen for a follow-up. The patient is currently hypoxic on 10 L of oxygen by nasal cannula. Pulse ox in the mid 80s. Based on that, the patient was placed on Airvo at 40 L with an FiO2 of 60%. A repeat chest x-ray was also requested and this was reviewed. The chest x-ray from today showing stable cardiomegaly, pulm vessel congestion, small bilateral pleural effusions and overall chest x-ray finding is consistent with CHF. There is some atelectatic changes in the lung bases bilaterally. The white cell count is 6.2 with a heme of 10.7 and a platelet count of 134. BUN is 43 with a creatinine of 1.34 and the creatinine remains stable. Sodium level is 131. Potassium level is at 3.7. The patient remains on IV vancomycin. The patient remains on Lasix 40 mg p.o. daily. Remains on anticoagulation with Eliquis. Remains on DuoNeb nebulizers [id number] and a combination of metoprolol XL 12.5 mg p.o. daily and amiodarone 12 mg p.o. daily. On 01/18/2024, the patient is being seen for a follow-up. He remains on oxygen Airvo at 40 L with an FiO2 of 60%. Pulse ox in the order of 95%. Not much cooperative with his incentive spirometer. He remains on IV Lasix. The patient is in a negative fluid balance. The BUN is at 58 with a creatinine of 1.36 and a sodium levels at 134 and a potassium level is at 3.4. Serum bicarbonate 38. The white cell count of 5.9 with a hemoglobin 11.2 and a platelet count of 146. The patient remains on DuoNeb nebulized treatments [id number]. The patient remains on IV vancomycin. Remains on anticoagulation with Eliquis 5 mg p.o. twice a day. IV Lasix 40 mg every 12 hours. On 01/19/2024, the patient is being seen for a follow-up. Remains on high flow Airvo oxygen and the patient remains on 40 L and FiO2 of 60%. The flow has been somewhat reduced compared to yesterday. Current pulse ox is in the order of 91 to 92%. Continues to receive diuretics and the patient is on the IV Lasix. Fluid balance is -1 L over the past 24 hours as the patient receiving 40 mg IV Lasix every 12 hours. Barely using his incentive spirometer. The BUN is 64 with a creatinine of 1.37. Electrolytes are all stable. Potassium level is down to 3.3. Serum bicarb is at 36. White cell count is at 6 with a hemoglobin of 11.5 and a platelet count of 145. Vancomycin trough was high at 31.7 dropped down to 29. The patient is seen today January 20, 2024 in follow-up on the regular medical floor. He is currently sitting up in bed. Awake and alert in no acute distress. He is still requiring Airvo high flow oxygen at 40 L and 50% FiO2. Chest x-ray revealed hypoventilatory changes with similar patchy bibasilar opacities and trace left pleural effusion. Wound culture positive for MRSA and Enterococcus faecalis. White count 7.0. Hemoglobin 11.9. Platelets 167. Sodium 137. Potassium 3.2. Bicarb 34. BUN 73. Creatinine 1.37. Glucose 263. Continued on vancomycin. Remains on bronchodilators. Anticoagulated with Eliquis. Remains on IV diuretics. Currently in a -1.2 L balance. Objective - Vital Signs Vital signs: Vital Signs Temp 97.8 F 01/20/24 08:45 Pulse 100 01/20/24 12:09 Resp 20 01/20/24 12:09 BP 108/60 01/20/24 10:55 Pulse Ox 91 L 01/20/24 12:02 FiO2 50 01/20/24 12:02 Intake & Output 01/19/24 01/20/24 01/20/24 18:59 06:59 18:59 Intake Total 600 118 Output Total 850 1000 Balance -250 -1000 118 Intake: Oral 600 118 Output: Urine 850 1000 Other: Voiding Method External Catheter External Catheter External Catheter - Exam GENERAL EXAM: Alert, 83-year-old male patient, on Airvo high flow oxygen at 40 L and 50% FiO2, fairly comfortable in no apparent distress. HEAD: Normocephalic. EYES: Normal reaction of pupils, equal size. NOSE: Clear with pink turbinates. THROAT: No erythema or exudates. NECK: No masses, no JVD. CHEST: No chest wall deformity. LUNGS: Equal air entry with crackles in the bilateral bases. CVS: S1 and S2 normal with no audible murmur, regular rhythm. ABDOMEN: No hepatosplenomegaly, normal bowel sounds, no guarding or rigidity. SPINE: No scoliosis or deformity SKIN: No rashes CENTRAL NERVOUS SYSTEM: No focal deficits, tone is normal in all 4 extremities. EXTREMITIES: There is 1-2+ peripheral edema. No clubbing, no cyanosis. Peripheral pulses are intact. - Labs CBC & Chem 7: 01/20/24 06:28 01/20/24 06:28 Labs: Abnormal Lab Results - Last 24 Hours (Table) 01/20/24 01/20/24 Range/Units 06:28 06:28 RBC 3.85 L (4.30-5.90) m/uL Hgb 11.9 L (13.0-17.5) gm/dL Hct 38.8 L (39.0-53.0) % MCV 100.6 H (80.0-100.0) fL MCHC 30.7 L (31.0-37.0) g/dL Potassium 3.2 L (3.5-5.1) mmol/L Chloride 94 L (98-107) mmol/L Carbon Dioxide 34 H (22-30) mmol/L BUN 73 H (9-20) mg/dL Creatinine 1.37 H (0.66-1.25) mg/dL Alkaline Phosphatase 263 H (38-126) U/L Total Protein 5.3 L (6.3-8.2) g/dL Albumin 3.0 L (3.5-5.0) g/dL Assessment and Plan Assessment: Acute hypoxic respiratory failure secondary to atelectatic changes in the lung bases in addition to CHF and development of bilateral pleural effusion right more than left. There is a progressive worsening in the oxygenation status and the patient is currently on Airvo with 40 L with FiO2 of 60%. Pneumonia is doubtful and the patient has been appropriately covered with vancomycin. Pulmonary embolism is doubtful as the patient is on anticoagulation with Eliquis. Ultrasound of the chest was also completed and there is no sizable pleural effusion. The patient is responding to diuretics. Follow-up chest x- ray today and shows atelectatic changes, pulm vessel congestion and cardiomegaly. Continues to have some atelectatic changes in lung base bilaterally Fall with fracture to the spine, status post open treatment L2-3 for hyperextension fracture, L1-L4 posterior lateral fusion. Dehiscence of lumbar incisions with suspected infection the patient has undergone an incision and drainage, cultures are negative. Patient is currently on a combination of cefepime and vancomycin. Lumbar wound dehiscence due to pres sure ulceration, cultures were positive for MRSA and the patient remains on vancomycin Acute kidney injury and the creatinine is stable for now and the patient is producing good urine output while being on Lasix. Chronic atrial fibrillation anticoagulated with Eliquis Chronic systolic heart failure With an ejection fraction 25 to 30% Moderate to severe pulmonary hypertension History of mild coronary artery disease COPD, currently inactive and stable History of colon cancer, to be sched COPD ed for colectomy once recovered History of CVA/TIA History of hearing disorder Hyperlipidemia Former smoker Poor functional performance based on the above-mentioned multiple comorbidities, and the patient has generalized motor weakness in all 4 extremities Plan: The patient was seen and evaluated Chest x-ray, labs and medications reviewed Currently in a negative balance Continue with diuretics Continue bronchodilators Titrate down the FiO2 as tolerated Continue vancomycin We will continue to follow I have personally seen and examined the patient, performed the documentation and the assessment and plan as written. Number of minutes spent on the visit: 10 Dictation was produced using [employer] dictation software. Please excuse any grammatical, word or spelling errors.
--- NOTE | 2024-01-20 18:11 | P.PN ---
Subjective Progress Note Date: 01/20/24 Nick Vora, is an 83-year-old male currently in rehab at [facility] who was sent to [facility] emergency room, for worsening shortness of breath decreased O2 saturation, hypotension, generalized weakness and erythema skin breakdown or from back surgical wound. He was evaluated in the emergency room vital examination on presentation revealed a temperature of 98.1 pulse 101 respiration 19 blood pressure 116/59 pulse ox 90% on 5 L nasal cannula Laboratory data revealed a white blood count of 8.9 hemoglobin 11.6 platelet count 138 BUN 29 creatinine 0.97 troponin 0.012 BNP 1470 Testing in the emergency room revealed EKG revealed sinus rhythm with first- degree AV block, CT scan of the lumbar spine revealed evidence of recent fusion L1-L5. Chest x-ray revealed findings suggestive of congestive heart failure, infiltrates of other etiology not excluded. Patient was admitted to medical floor for further evaluation and treatment Past medical history is significant for history of hypertension, history of hyperlipidemia, history of paroxysmal atrial fibrillation, history of benign prostatic hypertrophy, history of decreased hearing, history of invasive colonic adenocarcinoma patient will need surgical intervention in the near future after he is medically stable, history of recent back surgery with lumbar fusion. On review of systems patient is alert and oriented x 3 in no apparent distress there is no fever or chills no headache or dizziness no chest pain he has some s hortness of breath with any activity there is no cough no nausea or vomiting no abdominal pain no diarrhea no constipation no blood in the stools no burning with urination no frequency or urgency and no hematuria. On 01/13/2024, patient was seen and examined on the medical floor he is alert and oriented in no apparent distress, he underwent lumbar wounds I&D today with Dr. Ashton, there is no fever or chills no headache or dizziness no chest pain no shortness of breath no cough no nausea or vomiting no abdominal pain no diarrhea and no urinary symptoms white blood count is 6.3 hemoglobin 11.3 platelet count 97 BUN 31 creatinine 1.03 On 01/14/2024 patient's alert and oriented. Increased oxygen demands. Will consult pulmonary services infectious disease, cardiology, orthopedic services and pulmonary services have all been consulted. Patient remains on Maxipime and Comycin. Patient has been transitioned to p.o. Lasix per cardiology. Current vital signs temp 98.0, heart rate 91, respiratory rate 16, blood pressure 92/54 with a pulse ox of 94% on 13 L high flow On 01/15/2024 patient is alert and oriented x 3. Cultures coming back presumptive MRSA. Patient remains on vancomycin and cefepime. Infectious disease, pulmonary, cardiology and orthopedic services are following. Current vital signs temp 97.3, heart rate 85, respiratory rate 20, blood pressure 132/57 with a pulse ox of 92% on 13 L high flow. Patient did receive IV Lasix yesterday. Patient denies chest pain or shortness of breath. Patient denies nausea vomiting or diarrhea. Patient denies any urinary burning or frequency. On 01/16/2024 patient was seen and examined on the medical floor he is alert and oriented x 3 in no apparent distress there is no fever or chills no headache or dizziness no chest pain no shortness of breath no cough no nausea or vomiting no abdominal pain no diarrhea, he is complaining of constipation no blood in the stools no burning with urination no frequency or urgency and no hematuria. On 01/17/2024 patient is alert and oriented x 3. Patient remains on IV vancomycin. Current vital signs temp 97.6, heart 72, respiratory rate 18, blood pressure 98/52 with a pulse ox of 91% on 9 L. Patient denies chest pain or shortness of breath. Patient denies nausea vomiting or diarrhea. Patient denies any urinary burning or frequency. On 01/18/2024 patient was seen and examined on the medical floor, he is alert and oriented x 3 in no apparent distress he is maintained on Airvo FiO2 62 % temperature is 98 pulse 91 respiration 18 blood pressure 108/56 pulse ox 94% he is complaining of generalized weakness and constipation, otherwise he denies any complaints there is no fever or chills no headache or dizziness no chest pain no shortness of breath no cough no nausea or vomiting no abdominal pain no diarrhea and no urinary symptoms, white blood count is 5.9 hemoglobin 11.2 platelet count 146, sodium 134 potassium 3.4 chloride 93 BUN 58 creatinine 1.36 he remains on IV antibiotic vancomycin. On 01/19/2024 patient is alert and oriented 3 resting comfortably in bed. Patient remains on airvo for oxygen support.Patient remains on IV vancomycin. Creatinine 1.37 bun 64 Potassium 3.3 will replace per protocol. Patient denies chest pain or shortness breath. Patient denies nausea vomiting or diarrhea. Patient denies any urinary burning or frequency. On 01/20/2024 patient was seen and examined on the medical floor he is alert and oriented x 3 in no apparent distress, he is still maintained on high flow oxygen via Airvo, there is no fever or chills no headache or dizziness no chest pain no shortness of breath no cough no nausea or vomiting no abdominal pain no diarrhea, he is complaining of constipation no blood in the stools no burning with urination no frequency or urgency and no hematuria. pulmonary consult following. Objective - Vital Signs Vital signs: Vital Signs Temp 97.9 F 01/19/24 20:00 Pulse 94 01/20/24 04:00 Resp 20 01/20/24 04:00 BP 99/54 01/20/24 04:00 Pulse Ox 94 L 01/20/24 04:00 FiO2 63 01/20/24 06:18 Intake & Output 01/19/24 01/20/24 01/20/24 18:59 06:59 18:59 Intake Total 600 Output Total 850 1000 Balance -250 -1000 Intake: Oral 600 Output: Urine 850 1000 Other: Voiding Method External Catheter External Catheter - Exam In general patient is alert and oriented x 3 in no distress HEENT head normocephalic and atraumatic Neck is supple no JVD no goiter no lymphadenopathy no carotid bruit Chest examination reveals a scattered crackles bilaterally no wheezing Cardiac exam reveals regular heart sounds S1 and S2 no gallops no murmurs Abdomen is soft nontender no organomegaly with normal bowel sounds Extremity exam reveals no edema no cyanosis or clubbing Back exam reveals mild erythema around the surgical wound with mild tenderness Neurological examination reveals generalized weakness with no gross focal deficits - Labs CBC & Chem 7: 01/20/24 06:28 01/20/24 06:28 Labs: Abnormal Lab Results - Last 24 Hours (Table) 01/19/24 01/19/24 01/20/24 Range/Units 06:57 06:57 06:28 RBC 3.71 L 3.85 L (4.30-5.90) m/uL Hgb 11.5 L 11.9 L (13.0-17.5) gm/dL Hct 37.8 L 38.8 L (39.0-53.0) % MCV 101.7 H 100.6 H (80.0-100.0) fL MCHC 30.6 L 30.7 L (31.0-37.0) g/dL Plt Count 145 L (150-450) k/uL Lymphocytes # 0.7 L (1.0-4.8) k/uL Sodium 136 L (137-145) mmol/L Potassium 3.3 L (3.5-5.1) mmol/L Chloride 91 L (98-107) mmol/L Carbon Dioxide 36 H (22-30) mmol/L BUN 64 H (9-20) mg/dL Creatinine 1.37 H (0.66-1.25) mg/dL Alkaline Phosphatase 269 H (38-126) U/L Total Protein 5.2 L (6.3-8.2) g/dL Albumin 3.0 L (3.5-5.0) g/dL Assessment and Plan Plan: Acute exacerbation of systolic congestive heart failure Cardiomyopathy with ejection fraction 25 to 30% on echocardiogram done on 09/07/2023 Worsening shortness of breath and decreased O2 saturation likely related to congestive heart failure Mild erythema and tenderness in the lumbar surgical wound site with wound infection cultures currently growing presumptive MRSA Underlying history of paroxysmal atrial fibrillation Underlying history of hypertension Underlying history of hyperlipidemia Underlying history of colon adenocarcinoma patient will need surgery when medically stable Physical debility Moderate to severe protein calorie malnutrition At this time patient was seen and examined Home medications reviewed and reordered Consultation for infectious disease, cardiology, and orthopedic surgery initiated For DVT prophylaxis, patient is on Eliquis Prognosis is guarded will follow closely
[2024-01-21 07:32] LABS: African American GFR (CKD) 61 (>60 ml/min/1.73 sqM); Non-African American GFR(CKD) 53 (>60 ml/min/1.73 sqM)
[2024-01-21 07:38] LABS: Vancomycin,Random 19.9 ug/mL
--- NOTE | 2024-01-21 08:48 | P.PN ---
Subjective Progress Note Date: 01/20/24 Principal diagnosis: Reason for follow-up is possible lumbar surgical site infection Patient is a 83-year-old male with a past medical history significant for CVA TIA hypertension hyperlipidemia atrial fibrillation prostate disorder patient is status post lumbar fusion surgery completed on 12/27/2023 has been brought back to the hospital concerning for drainage from his lumbar incision and concerning for surgical site infection.Patient was taken to the OR morning of 01/13/2024 and is status post lumbar wound I&D and cultures. On today's evaluation that is 01/20/2024, patient has been afebrile, patient is breathing slightly comfortably still requiring high flow nasal cannula oxygen, patient denies having any significant cough no chest pain, patient denies nausea vomiting or abdominal pain, he did have a bowel movement. Patient white count 7.0, creat is 1.37 Vanco trough is 23.6 Objective - Vital Signs Vital signs: Vital Signs Temp 97.8 F 01/20/24 08:45 Pulse 100 01/20/24 12:09 Resp 20 01/20/24 12:09 BP 108/60 01/20/24 10:55 Pulse Ox 91 L 01/20/24 12:02 FiO2 50 01/20/24 12:02 Intake & Output 01/19/24 01/20/24 01/20/24 18:59 06:59 18:59 Intake Total 600 118 Output Total 850 1000 Balance -250 -1000 118 Intake: Oral 600 118 Output: Urine 850 1000 Other: Voiding Method External Catheter External Catheter External Catheter - Exam GENERAL DESCRIPTION: An elderly male lying in bed in no distress RESPIRATORY SYSTEM: Unlabored breathing , decreased breath sounds at bases HEART: S1 S2 regular rate and rhythm , ABDOMEN: Soft , no tenderness EXTREMITIES: No edema feet - Labs CBC & Chem 7: 01/20/24 06:28 01/21/24 06:17 Labs: Abnormal Lab Results - Last 24 Hours (Table) 01/20/24 01/20/24 Range/Units 06:28 06:28 RBC 3.85 L (4.30-5.90) m/uL Hgb 11.9 L (13.0-17.5) gm/dL Hct 38.8 L (39.0-53.0) % MCV 100.6 H (80.0-100.0) fL MCHC 30.7 L (31.0-37.0) g/dL Potassium 3.2 L (3.5-5.1) mmol/L Chloride 94 L (98-107) mmol/L Carbon Dioxide 34 H (22-30) mmol/L BUN 73 H (9-20) mg/dL Creatinine 1.37 H (0.66-1.25) mg/dL Alkaline Phosphatase 263 H (38-126) U/L Total Protein 5.3 L (6.3-8.2) g/dL Albumin 3.0 L (3.5-5.0) g/dL Assessment and Plan (1) Wound infection after surgery Current Visit: Yes Status: Acute Code(s): T81.49XA - INFECTION FOLLOWING A PROCEDURE, OTHER SURGICAL SITE, INIT SNOMED Code(s): 98607912 (2) Penicillin allergy Current Visit: No Status: Acute Code(s): Z88.0 - ALLERGY STATUS TO PENICILLIN SNOMED Code(s): 48418650 Plan: 1patient presented to hospital with generalized weakness also complaining of discomfort to the lumbar surgical site with minimal drainage concerning for possible lumbar surgical site infection superficial versus deep and will need to cover for the resistant gram-positive as well as gram-negative pathogen. 2patient with a penicillin allergy that will limit the number of antibiotics safe to use. 3patient is status post I&D of his lumbar incision and cultures which are currently growing MRSA as well as group D Enterococcus which is sensitive to penicillin as well as vancomycin 4patient vancomycin trough is down to 23 need to be monitored closely and watch his creatinine closely continue with vancomycin Dictation was produced using [employer] dictation software. please excuse any grammatical, word or spelling errors. Time with Patient: Less than 30
--- NOTE | 2024-01-21 09:04 | P.PN ---
Subjective Progress Note Date: 01/21/24 Nick Vora, is an 83-year-old male currently in rehab at [facility] who was sent to [facility] emergency room, for worsening shortness of breath decreased O2 saturation, hypotension, generalized weakness and erythema skin breakdown or from back surgical wound. He was evaluated in the emergency room vital examination on presentation revealed a temperature of 98.1 pulse 101 respiration 19 blood pressure 116/59 pulse ox 90% on 5 L nasal cannula Laboratory data revealed a white blood count of 8.9 hemoglobin 11.6 platelet count 138 BUN 29 creatinine 0.97 troponin 0.012 BNP 1470 Testing in the emergency room revealed EKG revealed sinus rhythm with first- degree AV block, CT scan of the lumbar spine revealed evidence of recent fusion L1-L5. Chest x-ray revealed findings suggestive of congestive heart failure, infiltrates of other etiology not excluded. Patient was admitted to medical floor for further evaluation and treatment Past medical history is significant for history of hypertension, history of hyperlipidemia, history of paroxysmal atrial fibrillation, history of benign prostatic hypertrophy, history of decreased hearing, history of invasive colonic adenocarcinoma patient will need surgical intervention in the near future after he is medically stable, history of recent back surgery with lumbar fusion. On review of systems patient is alert and oriented x 3 in no apparent distress there is no fever or chills no headache or dizziness no chest pain he has some s hortness of breath with any activity there is no cough no nausea or vomiting no abdominal pain no diarrhea no constipation no blood in the stools no burning with urination no frequency or urgency and no hematuria. On 01/13/2024, patient was seen and examined on the medical floor he is alert and oriented in no apparent distress, he underwent lumbar wounds I&D today with Dr. Ashton, there is no fever or chills no headache or dizziness no chest pain no shortness of breath no cough no nausea or vomiting no abdominal pain no diarrhea and no urinary symptoms white blood count is 6.3 hemoglobin 11.3 platelet count 97 BUN 31 creatinine 1.03 On 01/14/2024 patient's alert and oriented. Increased oxygen demands. Will consult pulmonary services infectious disease, cardiology, orthopedic services and pulmonary services have all been consulted. Patient remains on Maxipime and Comycin. Patient has been transitioned to p.o. Lasix per cardiology. Current vital signs temp 98.0, heart rate 91, respiratory rate 16, blood pressure 92/54 with a pulse ox of 94% on 13 L high flow On 01/15/2024 patient is alert and oriented x 3. Cultures coming back presumptive MRSA. Patient remains on vancomycin and cefepime. Infectious disease, pulmonary, cardiology and orthopedic services are following. Current vital signs temp 97.3, heart rate 85, respiratory rate 20, blood pressure 132/57 with a pulse ox of 92% on 13 L high flow. Patient did receive IV Lasix yesterday. Patient denies chest pain or shortness of breath. Patient denies nausea vomiting or diarrhea. Patient denies any urinary burning or frequency. On 01/16/2024 patient was seen and examined on the medical floor he is alert and oriented x 3 in no apparent distress there is no fever or chills no headache or dizziness no chest pain no shortness of breath no cough no nausea or vomiting no abdominal pain no diarrhea, he is complaining of constipation no blood in the stools no burning with urination no frequency or urgency and no hematuria. On 01/17/2024 patient is alert and oriented x 3. Patient remains on IV vancomycin. Current vital signs temp 97.6, heart 72, respiratory rate 18, blood pressure 98/52 with a pulse ox of 91% on 9 L. Patient denies chest pain or shortness of breath. Patient denies nausea vomiting or diarrhea. Patient denies any urinary burning or frequency. On 01/18/2024 patient was seen and examined on the medical floor, he is alert and oriented x 3 in no apparent distress he is maintained on Airvo FiO2 62 % temperature is 98 pulse 91 respiration 18 blood pressure 108/56 pulse ox 94% he is complaining of generalized weakness and constipation, otherwise he denies any complaints there is no fever or chills no headache or dizziness no chest pain no shortness of breath no cough no nausea or vomiting no abdominal pain no diarrhea and no urinary symptoms, white blood count is 5.9 hemoglobin 11.2 platelet count 146, sodium 134 potassium 3.4 chloride 93 BUN 58 creatinine 1.36 he remains on IV antibiotic vancomycin. On 01/19/2024 patient is alert and oriented 3 resting comfortably in bed. Patient remains on airvo for oxygen support.Patient remains on IV vancomycin. Creatinine 1.37 bun 64 Potassium 3.3 will replace per protocol. Patient denies chest pain or shortness breath. Patient denies nausea vomiting or diarrhea. Patient denies any urinary burning or frequency. On 01/20/2024 patient was seen and examined on the medical floor he is alert and oriented x 3 in no apparent distress, he is still maintained on high flow oxygen via Airvo, there is no fever or chills no headache or dizziness no chest pain no shortness of breath no cough no nausea or vomiting no abdominal pain no diarrhea, he is complaining of constipation no blood in the stools no burning with urination no frequency or urgency and no hematuria. pulmonary consult following. On 01/21/2024 patient is alert and oriented x 3 patient remains on high flow oxygen via Airvo. Patient denies chest pain or shortness of breath. Patient denies nausea vomiting or diarrhea. Patient denies any urinary burning or frequency. Current vital signs temp 98.2, heart rate 104, respiratory rate 22, blood pressure 116/58 with a pulse ox of 92% on Airvo 62%. Creatinine 1.26. Patient remains on IV Vanco. Patient denies chest pain or shortness of breath. Patient denies nausea vomiting or diarrhea. Patient denies any urinary burning or frequency Objective - Vital Signs Vital signs: Vital Signs Temp 98.2 F 01/20/24 23:50 Pulse 103 H 01/21/24 04:00 Resp 18 01/21/24 04:00 BP 94/53 01/21/24 04:00 Pulse Ox 92 L 01/21/24 04:00 FiO2 62 01/21/24 04:00 Intake & Output 01/20/24 01/21/24 01/21/24 18:59 06:59 18:59 Intake Total 354 Balance 354 Intake: Oral 354 Other: Voiding Method External Catheter External Catheter # Bowel Movements 3 - Exam In general patient is alert and oriented x 3 in no distress HEENT head normocephalic and atraumatic Neck is supple no JVD no goiter no lymphadenopathy no carotid bruit Chest examination reveals a scattered crackles bilaterally no wheezing Cardiac exam reveals regular heart sounds S1 and S2 no gallops no murmurs Abdomen is soft nontender no organomegaly with normal bowel sounds Extremity exam reveals no edema no cyanosis or clubbing Back exam reveals mild erythema around the surgical wound with mild tenderness Neurological examination reveals generalized weakness with no gross focal deficits - Labs CBC & Chem 7: 01/20/24 06:28 01/21/24 06:17 Labs: Abnormal Lab Results - Last 24 Hours (Table) 01/21/24 Range/Units 06:17 Creatinine 1.26 H (0.66-1.25) mg/dL Assessment and Plan Plan: Acute exacerbation of systolic congestive heart failure Cardiomyopathy with ejection fraction 25 to 30% on echocardiogram done on 09/07/2023 Worsening shortness of breath and decreased O2 saturation likely related to congestive heart failure Mild erythema and tenderness in the lumbar surgical wound site with wound infection cultures currently growing presumptive MRSA Underlying history of paroxysmal atrial fibrillation Underlying history of hypertension Underlying history of hyperlipidemia Underlying history of colon adenocarcinoma patient will need surgery when medi devan stable Physical debility Moderate to severe protein calorie malnutrition At this time patient was seen and examined Home medications reviewed and reordered Consultation for infectious disease, cardiology, and orthopedic surgery initiated For DVT prophylaxis, patient is on Eliquis Prognosis is guarded will follow closely
[2024-01-21] MEDS: VANCOMYCIN 1,250 MG in SODIUM CHLORIDE 0.9% 250 ML IVPB ONE (09:05)
--- NOTE | 2024-01-21 13:52 | P.PN ---
Subjective Progress Note Date: 01/21/24 Principal diagnosis: Reason for follow-up is possible lumbar surgical site infection Patient is a 83-year-old male with a past medical history significant for CVA TIA hypertension hyperlipidemia atrial fibrillation prostate disorder patient is status post lumbar fusion surgery completed on 12/27/2023 has been brought back to the hospital concerning for drainage from his lumbar incision and concerning for surgical site infection.Patient was taken to the OR morning of 01/13/2024 and is status post lumbar wound I&D and cultures. On today's evaluation that is 01/21/2024, Patient is afebrile this morning patient denies having any chest pain or cough, the patient is still requiring high flow nasal cannula oxygen currently on 50% FiO2 on Airvo patient denies any abdominal pain no diarrhea no nausea no vomiting. Patient did have creatinine 1.26 right away It is 19.9 Objective - Vital Signs Vital signs: Vital Signs Temp 98.2 F 01/20/24 23:50 Pulse 96 01/21/24 12:40 Resp 17 01/21/24 11:15 BP 110/57 01/21/24 11:15 Pulse Ox 95 01/21/24 12:22 FiO2 50 01/21/24 12:22 Intake & Output 01/20/24 01/21/24 01/21/24 18:59 06:59 18:59 Intake Total 354 Balance 354 Intake: Oral 354 Other: Voiding Method External Catheter External Catheter External Catheter # Bowel Movements 3 - Exam GENERAL DESCRIPTION: An elderly male lying in bed in no distress RESPIRATORY SYSTEM: Unlabored breathing , decreased breath sounds at bases HEART: S1 S2 regular rate and rhythm , ABDOMEN: Soft , no tenderness EXTREMITIES: No edema feet - Labs CBC & Chem 7: 01/20/24 06:28 01/21/24 06:17 Labs: Abnormal Lab Results - Last 24 Hours (Table) 01/21/24 Range/Units 06:17 Creatinine 1.26 H (0.66-1.25) mg/dL Assessment and Plan (1) Wound infection after surgery Current Visit: Yes Status: Acute Code(s): T81.49XA - INFECTION FOLLOWING A PROCEDURE, OTHER SURGICAL SITE, INIT SNOMED Code(s): 08828382 (2) Penicillin allergy Current Visit: No Status: Acute Code(s): Z88.0 - ALLERGY STATUS TO PENICILLIN SNOMED Code(s): 13257655 Plan: 1patient presented to hospital with generalized weakness also complaining of discomfort to the lumbar surgical site with minimal drainage concerning for possible lumbar surgical site infection superficial versus deep and will need to cover for the resistant gram-positive as well as gram-negative pathogen. 2patient with a penicillin allergy that will limit the number of antibiotics safe to use. 3patient is status post I&D of his lumbar incision and cultures which are currently growing MRSA as well as group D Enterococcus which is sensitive to penicillin as well as vancomycin 4patient vancomycin creatinine is down to 19.9, will discuss with the pharmacy if it is hard to dose his vancomycin may need to switch him to daptomycin to decrease risk of nephrotoxicity Dictation was produced using [employer] dictation software. please excuse any grammatical, word or spelling errors. Time with Patient: Less than 30
--- NOTE | 2024-01-21 15:21 | P.PN ---
Subjective Progress Note Date: 01/21/24 84-year-old male patient admitted back to the hospital on 01/12/2024 from [facility] following a distance of a surgical incision to the lumbar spine. The wound edges were not approximated and pulling away from the incision. There was also mild to moderate amount of serous drainage identified for that reason the patient was brought into the hospital. The patient is status post open reduction to fixation of an L2-L3 with minimal invasive stabilization of L1 S1 and L2 L4 laminectomy. The patient underwent incision and drainage and the patient is currently on a combination of cefepime and vancomycin. Cultures are still negative for now. The patient is hemodynamically stable. During this current admission, the patient had progressive worsening in his oxygen requirements and the patient is currently on 11 L/min nasal cannula and for that reason the pulmonary cavitation was requested. I ordered a stat chest x-ray and this was completed and the patient has interstitial edema and bilateral pleural effusion right more than left. He has a weak cough. No reported aspiration. The patient has pulm vessel congestion/CHF. The patient is currently on oral Lasix. Blood work shows a white cell count of 7.9 with a hemoglobin 10.6 and a platelet count of 114. BUN 32 with a creatinine of 1.3 current serum bicarb is at 37 and sodium levels at 136. Procalcitonin level is at 0.17. He has a Mulligan catheter in place and is producing adequate amount of urine output. Fluid balance has been -2 L over the past 24 hours. On 01/15/2024, the patient is stableWithout any interval worsening shortness of breath. The patient is currently on 10 L of oxygen by nasal cannula with a pulse ox of 95%. Using incentive spirometer. He was given Lasix yesterday and the patient produced adequate urine output. He did end up pulling his Mulligan catheter and he currently has a condom cath and will monitoring his renal function and his urine output. Creatinine from today is at 1.21. No other complaints otherwise for now. He remains on IV vancomycin as the patient's wound culture was positive for MRSA. On 01/16/2024, the patient is being seen for a follow-up. The patient is calm and comfortable. There has been interval improvement the patient's oxygenation and the patient is currently down to 7 L of oxygen by nasal cannula. He is using incentive spirometer. He was given Lasix yesterday and the net fluid balance is -1.5 L over the past 24 hours. Creatinine stable at 1.24 with a BUN of 38. Serum bicarb is at 35. Sodium levels at 133. WBC count is 5.9 with a hemoglobin of 11.3. The patient remains on vancomycin regarding wound infection. No other new complaints otherwise for now. Remains in atrial fibrillation. Remains on anticoagulation with Eliquis. Remains on metoprolol 12.5 mg p.o. daily. Rest of the medications are essentially unchanged. Follow- up chest x-ray from today continues to show some atelectatic changes in lung bases bilaterally. Findings are essentially stable On 01/17/2024, the patient is being seen for a follow-up. The patient is currently hypoxic on 10 L of oxygen by nasal cannula. Pulse ox in the mid 80s. Based on that, the patient was placed on Airvo at 40 L with an FiO2 of 60%. A repeat chest x-ray was also requested and this was reviewed. The chest x-ray from today showing stable cardiomegaly, pulm vessel congestion, small bilateral pleural effusions and overall chest x-ray finding is consistent with CHF. There is some atelectatic changes in the lung bases bilaterally. The white cell count is 6.2 with a heme of 10.7 and a platelet count of 134. BUN is 43 with a creatinine of 1.34 and the creatinine remains stable. Sodium level is 131. Potassium level is at 3.7. The patient remains on IV vancomycin. The patient remains on Lasix 40 mg p.o. daily. Remains on anticoagulation with Eliquis. Remains on DuoNeb nebulizers [id number] and a combination of metoprolol XL 12.5 mg p.o. daily and amiodarone 12 mg p.o. daily. On 01/18/2024, the patient is being seen for a follow-up. He remains on oxygen Airvo at 40 L with an FiO2 of 60%. Pulse ox in the order of 95%. Not much cooperative with his incentive spirometer. He remains on IV Lasix. The patient is in a negative fluid balance. The BUN is at 58 with a creatinine of 1.36 and a sodium levels at 134 and a potassium level is at 3.4. Serum bicarbonate 38. The white cell count of 5.9 with a hemoglobin 11.2 and a platelet count of 146. The patient remains on DuoNeb nebulized treatments [id number]. The patient remains on IV vancomycin. Remains on anticoagulation with Eliquis 5 mg p.o. twice a day. IV Lasix 40 mg every 12 hours. On 01/19/2024, the patient is being seen for a follow-up. Remains on high flow Airvo oxygen and the patient remains on 40 L and FiO2 of 60%. The flow has been somewhat reduced compared to yesterday. Current pulse ox is in the order of 91 to 92%. Continues to receive diuretics and the patient is on the IV Lasix. Fluid balance is -1 L over the past 24 hours as the patient receiving 40 mg IV Lasix every 12 hours. Barely using his incentive spirometer. The BUN is 64 with a creatinine of 1.37. Electrolytes are all stable. Potassium level is down to 3.3. Serum bicarb is at 36. White cell count is at 6 with a hemoglobin of 11.5 and a platelet count of 145. Vancomycin trough was high at 31.7 dropped down to 29. The patient is seen today January 20, 2024 in follow-up on the regular medical floor. He is currently sitting up in bed. Awake and alert in no acute distress. He is still requiring Airvo high flow oxygen at 40 L and 50% FiO2. Chest x-ray revealed hypoventilatory changes with similar patchy bibasilar opacities and trace left pleural effusion. Wound culture positive for MRSA and Enterococcus faecalis. White count 7.0. Hemoglobin 11.9. Platelets 167. Sodium 137. Potassium 3.2. Bicarb 34. BUN 73. Creatinine 1.37. Glucose 263. Continued on vancomycin. Remains on bronchodilators. Anticoagulated with Eliquis. Remains on IV diuretics. Currently in a -1.2 L balance. The patient is seen today January 21, 2024 in follow-up on the regular medical floor. He is awake and alert in no acute distress. He is sitting up in bed. He remains on Airvo high flow oxygen at 40 L and 50% FiO2. Maintaining O2 saturations in the low to mid 90s. He is afebrile. Hemodynamically stable. Wound culture positive for MRSA and Enterococcus faecalis. Creatinine 1.26. Random vancomycin level 19.9. He remains on vancomycin. Remains on bronchodilators. Anticoagulated with Eliquis. Remains on IV diuretics. Remains in a negative balance. Objective - Vital Signs Vital signs: Vital Signs Temp 98.2 F 01/20/24 23:50 Pulse 96 01/21/24 12:40 Resp 17 01/21/24 11:15 BP 110/57 01/21/24 11:15 Pulse Ox 95 01/21/24 12:22 FiO2 50 01/21/24 12:22 Intake & Output 01/20/24 01/21/24 01/21/24 18:59 06:59 18:59 Intake Total 354 Balance 354 Intake: Oral 354 Other: Voiding Method External Catheter External Catheter External Catheter # Bowel Movements 3 - Exam GENERAL EXAM: Alert, 83-year-old male, on Airvo high flow oxygen at 40 L and 50% FiO2, comfortable in no apparent distress. HEAD: Normocephalic. EYES: Normal reaction of pupils, equal size. NOSE: Clear with pink turbinates. THROAT: No erythema or exudates. NECK: No masses, no JVD. CHEST: No chest wall deformity. LUNGS: Equal air entry with crackles in the bilateral bases. CVS: S1 and S2 normal with no audible murmur, regular rhythm. ABDOMEN: No hepatosplenomegaly, normal bowel sounds, no guarding or rigidity. SPINE: No scoliosis or deformity. Dressing dry and intact SKIN: No rashes CENTRAL NERVOUS SYSTEM: No focal deficits, tone is normal in all 4 extremities. EXTREMITIES: There is 1-2+ peripheral edema. No clubbing, no cyanosis. Peripheral pulses are intact. - Labs CBC & Chem 7: 01/20/24 06:28 01/21/24 06:17 Labs: Abnormal Lab Results - Last 24 Hours (Table) 01/21/24 Range/Units 06:17 Creatinine 1.26 H (0.66-1.25) mg/dL Assessment and Plan Assessment: Acute hypoxic respiratory failure secondary to atelectatic changes in the lung bases in addition to CHF and development of bilateral pleural effusion right m ore than left. Currently on Airvo with 40 L with FiO2 of 50%. Pneumonia is doubtful and the patient has been appropriately covered with vancomycin. Pulmonary embolism is doubtful as the patient is on anticoagulation with Eliquis. Ultrasound of the chest was also completed and there is no sizable pleural effusion. The patient is responding to diuretics. Follow-up chest x- ray shows atelectatic changes, pulmonary vasculature congestion and cardiomegaly. Continues to have some atelectatic changes in lung base bilaterally Fall with fracture to the spine, status post open treatment L2-3 for hyperextension fracture, L1-L4 posterior lateral fusion. Dehiscence of lumbar incisions with suspected infection the patient has undergone an incision and drainage. Lumbar wound dehiscence due to pressure ulceration, cultures were positive for MRSA and Enterococcus faecali. Currently on vancomycin. Acute kidney injury and the creatinine is stable for now and the patient is producing good urine output while being on Lasix. Chronic atrial fibrillation anticoagulated with Eliquis Chronic systolic heart failure With an ejection fraction 25 to 30% Moderate to severe pulmonary hypertension History of mild coronary artery disease COPD, currently inactive and stable History of colon cancer, to be schedul COPD ed for colectomy once recovered History of CVA/TIA History of hearing disorder Hyperlipidemia Former smoker Poor functional performance based on the above-mentioned multiple comorbidities, and the patient has generalized motor weakness in all 4 extremities Plan: The patient was seen and evaluated Labs and medications reviewed Continue the current treatment plan Titrate down the FiO2 as tolerated We will continue to follow I have personally seen and examined the patient, performed the documentation and the assessment and plan as written. Number of minutes spent on the visit: 10 Dictation was produced using [employer] dictation software. Please excuse any gramm atical, word or spelling errors.
[2024-01-22 07:38] LABS: Basophils % (A) 1 %; Eosinophils # (A) 0.3 k/uL (0-0.7); Eosinophils % (A) 4 %; HCT 37.3 % (39.0-53.0); HGB 11.3 gm/dL (13.0-17.5); Hypochromasia Marked; Lymphocytes # (A) 1.1 k/uL (1.0-4.8); Lymphocytes % (A) 15 %; MCH 30.3 pg (25.0-35.0); MCHC 30.2 g/dL (31.0-37.0); MCV 100.5 fL (80.0-100.0); Macrocytosis Slight; Mean Platelet Volume 8.7; Monocytes # (A) 0.4 k/uL (0-1.0); Monocytes % (A) 6 %; Neutrophils # (A) 5.2 k/uL (1.3-7.7); Neutrophils % (A) 73 %; Platelet Count 164 k/uL (150-450); Poikilocytosis Slight; RBC 3.71 m/uL (4.30-5.90); RDW 14.8 % (11.5-15.5); WBC 7.1 k/uL (3.8-10.6)
[2024-01-22 07:42] LABS: ALT 19 U/L (4-49); AST 34 U/L (17-59); African American GFR (CKD) 58 (>60 ml/min/1.73 sqM); Albumin 2.9 g/dL (3.5-5.0); Alkaline Phosphatase 218 U/L (38-126); Anion Gap 3 mmol/L; Blood Urea Nitrogen 79 mg/dL (9-20); Calcium 8.3 mg/dL (8.4-10.2); Carbon Dioxide 39 mmol/L (22-30); Chloride 92 mmol/L (98-107); Glucose 90 mg/dL (74-99); Non-African American GFR(CKD) 50 (>60 ml/min/1.73 sqM); Potassium 3.1 mmol/L (3.5-5.1); Sodium 134 mmol/L (137-145); Total Bilirubin 0.7 mg/dL (0.2-1.3); Total Protein 5.1 g/dL (6.3-8.2)
[2024-01-22 07:48] LABS: Vancomycin,Random 22.4 ug/mL
[2024-01-22] MEDS ORDERED: Potassium Replacement Protocol 1 EACH MISC MISCELLANE PRN ×2 (07:55→09:30)
--- NOTE | 2024-01-22 09:31 | P.PN ---
Subjective Progress Note Date: 01/22/24 Nick Vora, is an 83-year-old male currently in rehab at [facility] who was sent to [facility] emergency room, for worsening shortness of breath decreased O2 saturation, hypotension, generalized weakness and erythema skin breakdown or from back surgical wound. He was evaluated in the emergency room vital examination on presentation revealed a temperature of 98.1 pulse 101 respiration 19 blood pressure 116/59 pulse ox 90% on 5 L nasal cannula Laboratory data revealed a white blood count of 8.9 hemoglobin 11.6 platelet count 138 BUN 29 creatinine 0.97 troponin 0.012 BNP 1470 Testing in the emergency room revealed EKG revealed sinus rhythm with first- degree AV block, CT scan of the lumbar spine revealed evidence of recent fusion L1-L5. Chest x-ray revealed findings suggestive of congestive heart failure, infiltrates of other etiology not excluded. Patient was admitted to medical floor for further evaluation and treatment Past medical history is significant for history of hypertension, history of hyperlipidemia, history of paroxysmal atrial fibrillation, history of benign prostatic hypertrophy, history of decreased hearing, history of invasive colonic adenocarcinoma patient will need surgical intervention in the near future after he is medically stable, history of recent back surgery with lumbar fusion. On review of systems patient is alert and oriented x 3 in no apparent distress there is no fever or chills no headache or dizziness no chest pain he has some s hortness of breath with any activity there is no cough no nausea or vomiting no abdominal pain no diarrhea no constipation no blood in the stools no burning with urination no frequency or urgency and no hematuria. On 01/13/2024, patient was seen and examined on the medical floor he is alert and oriented in no apparent distress, he underwent lumbar wounds I&D today with Dr. Ashton, there is no fever or chills no headache or dizziness no chest pain no shortness of breath no cough no nausea or vomiting no abdominal pain no diarrhea and no urinary symptoms white blood count is 6.3 hemoglobin 11.3 platelet count 97 BUN 31 creatinine 1.03 On 01/14/2024 patient's alert and oriented. Increased oxygen demands. Will consult pulmonary services infectious disease, cardiology, orthopedic services and pulmonary services have all been consulted. Patient remains on Maxipime and Comycin. Patient has been transitioned to p.o. Lasix per cardiology. Current vital signs temp 98.0, heart rate 91, respiratory rate 16, blood pressure 92/54 with a pulse ox of 94% on 13 L high flow On 01/15/2024 patient is alert and oriented x 3. Cultures coming back presumptive MRSA. Patient remains on vancomycin and cefepime. Infectious disease, pulmonary, cardiology and orthopedic services are following. Current vital signs temp 97.3, heart rate 85, respiratory rate 20, blood pressure 132/57 with a pulse ox of 92% on 13 L high flow. Patient did receive IV Lasix yesterday. Patient denies chest pain or shortness of breath. Patient denies nausea vomiting or diarrhea. Patient denies any urinary burning or frequency. On 01/16/2024 patient was seen and examined on the medical floor he is alert and oriented x 3 in no apparent distress there is no fever or chills no headache or dizziness no chest pain no shortness of breath no cough no nausea or vomiting no abdominal pain no diarrhea, he is complaining of constipation no blood in the stools no burning with urination no frequency or urgency and no hematuria. On 01/17/2024 patient is alert and oriented x 3. Patient remains on IV vancomycin. Current vital signs temp 97.6, heart 72, respiratory rate 18, blood pressure 98/52 with a pulse ox of 91% on 9 L. Patient denies chest pain or shortness of breath. Patient denies nausea vomiting or diarrhea. Patient denies any urinary burning or frequency. On 01/18/2024 patient was seen and examined on the medical floor, he is alert and oriented x 3 in no apparent distress he is maintained on Airvo FiO2 62 % temperature is 98 pulse 91 respiration 18 blood pressure 108/56 pulse ox 94% he is complaining of generalized weakness and constipation, otherwise he denies any complaints there is no fever or chills no headache or dizziness no chest pain no shortness of breath no cough no nausea or vomiting no abdominal pain no diarrhea and no urinary symptoms, white blood count is 5.9 hemoglobin 11.2 platelet count 146, sodium 134 potassium 3.4 chloride 93 BUN 58 creatinine 1.36 he remains on IV antibiotic vancomycin. On 01/19/2024 patient is alert and oriented 3 resting comfortably in bed. Patient remains on airvo for oxygen support.Patient remains on IV vancomycin. Creatinine 1.37 bun 64 Potassium 3.3 will replace per protocol. Patient denies chest pain or shortness breath. Patient denies nausea vomiting or diarrhea. Patient denies any urinary burning or frequency. On 01/20/2024 patient was seen and examined on the medical floor he is alert and oriented x 3 in no apparent distress, he is still maintained on high flow oxygen via Airvo, there is no fever or chills no headache or dizziness no chest pain no shortness of breath no cough no nausea or vomiting no abdominal pain no diarrhea, he is complaining of constipation no blood in the stools no burning with urination no frequency or urgency and no hematuria. pulmonary consult following. On 01/21/2024 patient is alert and oriented x 3 patient remains on high flow oxygen via Airvo. Patient denies chest pain or shortness of breath. Patient denies nausea vomiting or diarrhea. Patient denies any urinary burning or frequency. Current vital signs temp 98.2, heart rate 104, respiratory rate 22, blood pressure 116/58 with a pulse ox of 92% on Airvo 62%. Creatinine 1.26. Patient remains on IV Vanco. Patient denies chest pain or shortness of breath. Patient denies nausea vomiting or diarrhea. Patient denies any urinary burning or frequency On 01/22/2024 patient is alert and oriented x 3. Current vital signs temp 97.0, heart rate 95, respiratory rate 18, blood pressure 108/55 with a pulse ox of 96% on Airvo 40%. Patient denies chest pain or shortness of breath. Patient denies nausea vomiting or diarrhea. Patient denies any urinary burning or frequency. Potassium low at 3.1 will replace per protocol. Patient remains on IV vancomycin Objective - Vital Signs Vital signs: Vital Signs Temp 97.0 F L 01/22/24 04:48 Pulse 95 01/22/24 04:48 Resp 18 01/22/24 04:48 BP 108/55 01/22/24 04:48 Pulse Ox 96 01/22/24 04:48 FiO2 40 01/22/24 04:48 Intake & Output 01/21/24 01/22/24 01/22/24 18:59 06:59 18:59 Intake Total 240 Output Total 1150 Balance 240 -1150 Weight 85.5 kg Intake: Oral 240 Output: Urine 1150 Other: Voiding Method External Catheter External Catheter - Exam In general patient is alert and oriented x 3 in no distress HEENT head normocephalic and atraumatic Neck is supple no JVD no goiter no lymphadenopathy no carotid bruit Chest examination reveals a scattered crackles bilaterally no wheezing Cardiac exam reveals regular heart sounds S1 and S2 no gallops no murmurs Abdomen is soft nontender no organomegaly with normal bowel sounds Extremity exam reveals no edema no cyanosis or clubbing Back exam reveals mild erythema around the surgical wound with mild tenderness Neurological examination reveals generalized weakness with no gross focal deficits - Labs CBC & Chem 7: 01/22/24 06:22 01/22/24 06:22 Labs: Abnormal Lab Results - Last 24 Hours (Table) 01/21/24 Range/Units 06:17 Creatinine 1.26 H (0.66-1.25) mg/dL Assessment and Plan Plan: Acute exacerbation of systolic congestive heart failure Cardiomyopathy with ejection fraction 25 to 30% on echocardiogram done on 09/07/2023 Worsening shortness of breath and decreased O2 saturation likely related to co ngestive heart failure Mild erythema and tenderness in the lumbar surgical wound site with wound inf ection cultures currently growing presumptive MRSA Underlying history of paroxysmal atrial fibrillation Underlying history of hypertension Underlying history of hyperlipidemia Underlying history of colon adenocarcinoma patient will need surgery when medically stable Physical debility Moderate to severe protein calorie malnutrition At this time patient was seen and examined Home medications reviewed and reordered Consultation for infectious disease, cardiology, and orthopedic surgery initiated For DVT prophylaxis, patient is on Eliquis Prognosis is guarded will follow closely
[2024-01-22] MEDS: POTASSIUM CHLORIDE ER 20 MEQ TAB.ER PO SCH (09:48)
[2024-01-22] MEDS ORDERED: POTASSIUM CHLORIDE ER 20 MEQ TAB.ER PO SCH (10:00)
--- NOTE | 2024-01-22 11:54 | P.PN ---
Subjective Progress Note Date: 01/22/24 Principal diagnosis: Status post irrigation debridement lumbar spine with revision wound closure, history of previous L1-L4 posterior lateral fusion/stabilization, multiple medical issues Patient was evaluated today at bedside, he is resting comfortably. Patient remains at his baseline, he continues to have generalized weakness throughout. Patient's back is stable, very minimal discomfort at this time. Patient remains on high flow oxygen. He is being followed by multiple medical specialties. Patient has no headaches, headedness, chest pain or shortness of breath Objective - Vital Signs Vital signs: Vital Signs Temp 97.4 F L 01/22/24 09:45 Pulse 68 01/22/24 09:45 Resp 20 01/22/24 09:45 BP 108/58 01/22/24 09:45 Pulse Ox 96 01/22/24 09:45 FiO2 40 01/22/24 09:45 Intake & Output 01/21/24 01/22/24 01/22/24 18:59 06:59 18:59 Intake Total 240 Output Total 1150 Balance 240 -1150 Weight 85.5 kg Intake: Oral 240 Output: Urine 1150 Other: Voiding Method External Catheter External Catheter External Catheter - Exam Gen: AOx3, NAD VSS stable at this time Integument: Post op dressing in removed at bedside, nylon sutures in good position. Minor skin breakdown noted, no obvious dehiscence Palpation: Mild tenderness with palpation of the lumbar spine ROM: Full range of motion all major muscle groups of bilateral upper extremities, no focal deficits Bilateral lower extremity motion intact, generalized weakness to all major muscle groups Sensory Exam: Senory exam to light touch is intact C5-T1 Senosry exam to light touch is intact L2-S1 Motor: 3/5 strength appreciated bilateral lower extremities with hip flexion, knee extension, knee flexion, plantarflexion, dorsiflexion, EHL Reflexes: 2/4 in all UE and LE Negative Ochoa's bilaterally Negative clonus bilaterally - Labs CBC & Chem 7: 01/22/24 06:22 01/22/24 06:22 Labs: Abnormal Lab Results - Last 24 Hours (Table) 01/22/24 01/22/24 Range/Units 06:22 06:22 RBC 3.71 L (4.30-5.90) m/uL Hgb 11.3 L (13.0-17.5) gm/dL Hct 37.3 L (39.0-53.0) % MCV 100.5 H (80.0-100.0) fL MCHC 30.2 L (31.0-37.0) g/dL Sodium 134 L (137-145) mmol/L Potassium 3.1 L (3.5-5.1) mmol/L Chloride 92 L (98-107) mmol/L Carbon Dioxide 39 H (22-30) mmol/L BUN 79 H (9-20) mg/dL Creatinine 1.32 H (0.66-1.25) mg/dL Calcium 8.3 L (8.4-10.2) mg/dL Alkaline Phosphatase 218 H (38-126) U/L Total Protein 5.1 L (6.3-8.2) g/dL Albumin 2.9 L (3.5-5.0) g/dL Assessment and Plan Assessment: Postoperative day #9 status post irrigation debridement lumbar spine with wound revision closure History of L2-L3 AL type B3 hyperextension injury, L3 AO type A4 burst fracture, chronic L4 AO type III A3 fracture status post kyphoplasty Multiple medical comorbidities Plan: Pain control, continue with current medications DVT prophylaxis per primary medical service Wound care, dressing change every 48 hours. Patient needs to be laying on his sides avoiding direct contact with the low back, patient can lay on his back for no more than an hour at a time. Roll patient every two hours Patient needs to be up in a chair multiple times throughout the day Encourage incentive spirometer PT/OT recommendations Other medical specialty recommendations Discharge planning: Orthopedic standpoint patient is stable for discharge to subacute rehab. Will continue to follow patient Time with Patient: Less than 30
--- NOTE | 2024-01-22 13:26 | P.PN ---
Subjective Progress Note Date: 01/22/24 84-year-old male patient admitted back to the hospital on 01/12/[facility] following a distance of a surgical incision to the lumbar spine. The wound edges were not approximated and pulling away from the incision. There was also mild to moderate amount of serous drainage identified for that reason the patient was brought into the hospital. The patient is status post open reduction to fixation of an L2-L3 with minimal invasive stabilization of L1 S1 and L2 L4 laminectomy. The patient underwent incision and drainage and the patient is currently on a combination of cefepime and vancomycin. Cultures are still negative for now. The patient is hemodynamically stable. During this current admission, the patient had progressive worsening in his oxygen requirements and the patient is currently on 11 L/min nasal cannula and for that reason the pulmonary cavitation was requested. I ordered a stat chest x-ray and this was completed and the patient has interstitial edema and bilateral pleural effusion right more than left. He has a weak cough. No reported aspiration. The patient has pulm vessel congestion/CHF. The patient is currently on oral Lasix. Blood work shows a white cell count of 7.9 with a hemoglobin 10.6 and a platelet count of 114. BUN 32 with a creatinine of 1.3 current serum bicarb is at 37 and sodium levels at 136. Procalcitonin level is at 0.17. He has a Mulligan catheter in place and is producing adequate amount of urine output. Fluid balance has been -2 L over the past 24 hours. On 01/15/2024, the patient is stableWithout any interval worsening shortness of breath. The patient is currently on 10 L of oxygen by nasal cannula with a pulse ox of 95%. Using incentive spirometer. He was given Lasix yesterday and the patient produced adequate urine output. He did end up pulling his Mulligan catheter and he currently has a condom cath and will monitoring his renal function and his urine output. Creatinine from today is at 1.21. No other complaints otherwise for now. He remains on IV vancomycin as the patient's wound culture was positive for MRSA. On 01/16/2024, the patient is being seen for a follow-up. The patient is calm and comfortable. There has been interval improvement the patient's oxygenation and the patient is currently down to 7 L of oxygen by nasal cannula. He is using incentive spirometer. He was given Lasix yesterday and the net fluid balance is -1.5 L over the past 24 hours. Creatinine stable at 1.24 with a BUN of 38. Serum bicarb is at 35. Sodium levels at 133. WBC count is 5.9 with a hemoglobin of 11.3. The patient remains on vancomycin regarding wound infection. No other new complaints otherwise for now. Remains in atrial fibrillation. Remains on anticoagulation with Eliquis. Remains on metoprolol 12.5 mg p.o. daily. Rest of the medications are essentially unchanged. Follow- up chest x-ray from today continues to show some atelectatic changes in lung bases bilaterally. Findings are essentially stable On 01/17/2024, the patient is being seen for a follow-up. The patient is currently hypoxic on 10 L of oxygen by nasal cannula. Pulse ox in the mid 80s. Based on that, the patient was placed on Airvo at 40 L with an FiO2 of 60%. A repeat chest x-ray was also requested and this was reviewed. The chest x-ray from today showing stable cardiomegaly, pulm vessel congestion, small bilateral pleural effusions and overall chest x-ray finding is consistent with CHF. There is some atelectatic changes in the lung bases bilaterally. The white cell count is 6.2 with a heme of 10.7 and a platelet count of 134. BUN is 43 with a creatinine of 1.34 and the creatinine remains stable. Sodium level is 131. Potassium level is at 3.7. The patient remains on IV vancomycin. The patient remains on Lasix 40 mg p.o. daily. Remains on anticoagulation with Eliquis. Remains on DuoNeb nebulizers [id number] and a combination of metoprolol XL 12.5 mg p.o. daily and amiodarone 12 mg p.o. daily. On 01/18/2024, the patient is being seen for a follow-up. He remains on oxygen Airvo at 40 L with an FiO2 of 60%. Pulse ox in the order of 95%. Not much cooperative with his incentive spirometer. He remains on IV Lasix. The patient is in a negative fluid balance. The BUN is at 58 with a creatinine of 1.36 and a sodium levels at 134 and a potassium level is at 3.4. Serum bicarbonate 38. The white cell count of 5.9 with a hemoglobin 11.2 and a platelet count of 146. The patient remains on DuoNeb nebulized treatments [id number]. The patient remains on IV vancomycin. Remains on anticoagulation with Eliquis 5 mg p.o. twice a day. IV Lasix 40 mg every 12 hours. On 01/19/2024, the patient is being seen for a follow-up. Remains on high flow Airvo oxygen and the patient remains on 40 L and FiO2 of 60%. The flow has been somewhat reduced compared to yesterday. Current pulse ox is in the order of 91 to 92%. Continues to receive diuretics and the patient is on the IV Lasix. Fluid balance is -1 L over the past 24 hours as the patient receiving 40 mg IV Lasix every 12 hours. Barely using his incentive spirometer. The BUN is 64 with a creatinine of 1.37. Electrolytes are all stable. Potassium level is down to 3.3. Serum bicarb is at 36. White cell count is at 6 with a hemoglobin of 11.5 and a platelet count of 145. Vancomycin trough was high at 31.7 dropped down to 29. The patient is seen today January 20, 2024 in follow-up on the regular medical floor. He is currently sitting up in bed. Awake and alert in no acute distress. He is still requiring Airvo high flow oxygen at 40 L and 50% FiO2. Chest x-ray revealed hypoventilatory changes with similar patchy bibasilar opacities and trace left pleural effusion. Wound culture positive for MRSA and Enterococcus faecalis. White count 7.0. Hemoglobin 11.9. Platelets 167. Sodium 137. Potassium 3.2. Bicarb 34. BUN 73. Creatinine 1.37. Glucose 263. Continued on vancomycin. Remains on bronchodilators. Anticoagulated with Eliquis. Remains on IV diuretics. Currently in a -1.2 L balance. The patient is seen today January 21, 2024 in follow-up on the regular medical floor. He is awake and alert in no acute distress. He is sitting up in bed. He remains on Airvo high flow oxygen at 40 L and 50% FiO2. Maintaining O2 saturations in the low to mid 90s. He is afebrile. Hemodynamically stable. Wound culture positive for MRSA and Enterococcus faecalis. Creatinine 1.26. Random vancomycin level 19.9. He remains on vancomycin. Remains on bronchodilators. Anticoagulated with Eliquis. Remains on IV diuretics. Remains in a negative balance. The patient is seen today January 22, 2024 in follow-up on the regular medical floor. He is currently sitting up in bed. Awake and alert in no acute distress. Still requiring Airvo high flow oxygen at 40 L and 40% FiO2. He remains on DuoNeb inhalations. Antibiotics in the form of vancomycin. He is continued on IV diuretics. Anticoagulated with Eliquis. Wound culture was positive for MRSA and Enterococcus faecalis. White count 7.1. Hemoglobin 11.3. Platelets 164. Sodium 134. Potassium 3.1. Bicarb 39. BUN 79. Creatinine 1.32. Random vancomycin 22.4. Objective - Vital Signs Vital signs: Vital Signs Temp 97.5 F L 01/22/24 12:00 Pulse 68 01/22/24 12:38 Resp 18 01/22/24 12:00 BP 91/54 01/22/24 12:00 Pulse Ox 96 01/22/24 12:00 FiO2 41 01/22/24 12:11 Intake & Output 01/21/24 01/22/24 01/22/24 18:59 06:59 18:59 Intake Total 240 Output Total 1150 Balance 240 -1150 Weight 85.5 kg Intake: Oral 240 Output: Urine 1150 Other: Voiding Method External Catheter External Catheter External Catheter - Exam GENERAL EXAM: Alert, 83-year-old male, sitting up in bed, on Airvo high flow oxygen at 40 L and 40% FiO2, in no apparent distress. HEAD: Normocephalic. EYES: Normal reaction of pupils, equal size. NOSE: Clear with pink turbinates. THROAT: No erythema or exudates. NECK: No masses, no JVD. CHEST: No chest wall deformity. LUNGS: Equal air entry with crackles in the bilateral bases. CVS: S1 and S2 normal with no audible murmur, regular rhythm. ABDOMEN: No hepatosplenomegaly, normal bowel sounds, no guarding or rigidity. SPINE: No scoliosis or deformity. Dressing dry and intact SKIN: No rashes CENTRAL NERVOUS SYSTEM: No focal deficits, tone is normal in all 4 extremities. EXTREMITIES: There is 1-2+ peripheral edema. No clubbing, no cyanosis. Peripheral pulses are intact. - Labs CBC & Chem 7: 01/22/24 06:22 01/22/24 06:22 Labs: Abnormal Lab Results - Last 24 Hours (Table) 01/22/24 01/22/24 Range/Units 06:22 06:22 RBC 3.71 L (4.30-5.90) m/uL Hgb 11.3 L (13.0-17.5) gm/dL Hct 37.3 L (39.0-53.0) % MCV 100.5 H (80.0-100.0) fL MCHC 30.2 L (31.0-37.0) g/dL Sodium 134 L (137-145) mmol/L Potassium 3.1 L (3.5-5.1) mmol/L Chloride 92 L (98-107) mmol/L Carbon Dioxide 39 H (22-30) mmol/L BUN 79 H (9-20) mg/dL Creatinine 1.32 H (0.66-1.25) mg/dL Calcium 8.3 L (8.4-10.2) mg/dL Alkaline Phosphatase 218 H (38-126) U/L Total Protein 5.1 L (6.3-8.2) g/dL Albumin 2.9 L (3.5-5.0) g/dL Assessment and Plan Assessment: Acute hypoxic respiratory failure secondary to atelectatic changes in the lung bases in addition to CHF and development of bilateral pleural effusion right more than left. Currently on Airvo with 40 L with FiO2 of 50%. Pneumonia is doubtful and the patient has been appropriately covered with vancomycin. Pulmonary embolism is doubtful as the patient is on anticoagulation with Eliquis. Ultrasound of the chest was also completed and there is no sizable pleural effusion. The patient is responding to diuretics. Follow-up chest x- ray shows atelectatic changes, pulmonary vasculature congestion and cardiomegaly. Continues to have some atelectatic changes in lung base bilaterally Fall with fracture to the spine, status post open treatment L2-3 for hyperextension fracture, L1-L4 posterior lateral fusion. Dehiscence of lumbar incisions with suspected infection the patient has undergone an incision and drainage. Lumbar wound dehiscence due to pressure ulceration, cultures were positive for MRSA and Enterococcus faecali. Currently on vancomycin. Acute kidney injury and the creatinine is stable for now and the patient is producing good urine output while being on Lasix. Chronic atrial fibrillation anticoagulated with Eliquis Chronic systolic heart failure With an ejection fraction 25 to 30% Moderate to severe pulmonary hypertension History of mild coronary artery disease COPD, currently inactive and stable History of colon cancer, to be sched COPD ed for colectomy once recovered History of CVA/TIA History of hearing disorder Hyperlipidemia Former smoker Poor functional performance based on the above-mentioned multiple comorbidities, and the patient has generalized motor weakness in all 4 extremities Plan: The patient was seen and evaluated Labs and medications reviewed Continue to work with the incentive spirometer Titrate down the FiO2 as tolerated Previous his activity as tolerated Plan is to return to [facility] at discharge We will continue to follow I have personally seen and examined the patient, performed the documentation and the assessment and plan as written. Number of minutes spent on the visit: 10 Dictation was produced using [employer] dictation software. Please excuse any grammatical, word or spelling errors.
[2024-01-22] MEDS: VANCOMYCIN 1,250 MG in SODIUM CHLORIDE 0.9% 250 ML IVPB SCH (18:18)
[2024-01-22] MEDS: CYCLOBENZAPRINE 5 MG TAB PO PRN (21:51)
[2024-01-23 08:22] LABS: Basophils % (A) 0 %; Eosinophils # (A) 0.3 k/uL (0-0.7); Eosinophils % (A) 4 %; HCT 37.2 % (39.0-53.0); HGB 11.7 gm/dL (13.0-17.5); Hypochromasia Marked; Lymphocytes # (A) 1.2 k/uL (1.0-4.8); Lymphocytes % (A) 16 %; MCH 31.7 pg (25.0-35.0); MCHC 31.3 g/dL (31.0-37.0); MCV 101.1 fL (80.0-100.0); Macrocytosis Slight; Mean Platelet Volume 8.4; Monocytes # (A) 0.5 k/uL (0-1.0); Monocytes % (A) 6 %; Neutrophils # (A) 5.7 k/uL (1.3-7.7); Neutrophils % (A) 72 %; Platelet Count 159 k/uL (150-450); Poikilocytosis Slight; RBC 3.68 m/uL (4.30-5.90); RDW 14.3 % (11.5-15.5); WBC 7.8 k/uL (3.8-10.6)
[2024-01-23 08:34] LABS: ALT 20 U/L (4-49); AST 37 U/L (17-59); African American GFR (CKD) 61 (>60 ml/min/1.73 sqM); Albumin 3.1 g/dL (3.5-5.0); Alkaline Phosphatase 231 U/L (38-126); Anion Gap 5 mmol/L; Blood Urea Nitrogen 74 mg/dL (9-20); Calcium 8.4 mg/dL (8.4-10.2); Chloride 90 mmol/L (98-107); Glucose 87 mg/dL (74-99); Non-African American GFR(CKD) 53 (>60 ml/min/1.73 sqM); Potassium 3.3 mmol/L (3.5-5.1); Sodium 135 mmol/L (137-145); Total Bilirubin 0.6 mg/dL (0.2-1.3); Total Protein 5.3 g/dL (6.3-8.2)
[2024-01-23 08:41] LABS: Carbon Dioxide 40 mmol/L (22-30)
--- NOTE | 2024-01-23 08:55 | P.PN ---
Subjective Progress Note Date: 01/22/24 Principal diagnosis: Reason for follow-up is possible lumbar surgical site infection Patient is a 83-year-old male with a past medical history significant for CVA TIA hypertension hyperlipidemia atrial fibrillation prostate disorder patient is status post lumbar fusion surgery completed on 12/27/2023 has been brought back to the hospital concerning for drainage from his lumbar incision and concerning for surgical site infection.Patient was taken to the OR morning of 01/13/2024 and is status post lumbar wound I&D and cultures. On today's evaluation that is 01/22/2024,the patient denies any fever or any chills, patient is breathing slightly comfortably however still requiring high flow nasal cannula oxygen down to 40% FiO2, the patient denies chest pain and no significant cough, patient denies abdominal pain, no nausea vomiting or diarrhea and no worsening pain to the lumbar surgical site. Patient white count 7.1, creatinine is 1.32 BUN/creatinine was 22.4 blood culture remains to be negative. Objective - Vital Signs Vital signs: Vital Signs Temp 97.5 F L 01/22/24 12:00 Pulse 68 01/22/24 12:38 Resp 18 01/22/24 12:00 BP 91/54 01/22/24 12:00 Pulse Ox 96 01/22/24 12:00 FiO2 41 01/22/24 12:11 Intake & Output 01/21/24 01/22/24 01/22/24 18:59 06:59 18:59 Intake Total 240 Output Total 1150 Balance 240 -1150 Weight 85.5 kg Intake: Oral 240 Output: Urine 1150 Other: Voiding Method External Catheter External Catheter External Catheter - Exam GENERAL DESCRIPTION: An elderly male lying in bed in no distress RESPIRATORY SYSTEM: Unlabored breathing , decreased breath sounds at bases HEART: S1 S2 regular rate and rhythm , ABDOMEN: Soft , no tenderness EXTREMITIES: No edema feet - Labs CBC & Chem 7: 01/23/24 07:09 01/23/24 07:09 Labs: Abnormal Lab Results - Last 24 Hours (Table) 01/22/24 01/22/24 Range/Units 06:22 06:22 RBC 3.71 L (4.30-5.90) m/uL Hgb 11.3 L (13.0-17.5) gm/dL Hct 37.3 L (39.0-53.0) % MCV 100.5 H (80.0-100.0) fL MCHC 30.2 L (31.0-37.0) g/dL Sodium 134 L (137-145) mmol/L Potassium 3.1 L (3.5-5.1) mmol/L Chloride 92 L (98-107) mmol/L Carbon Dioxide 39 H (22-30) mmol/L BUN 79 H (9-20) mg/dL Creatinine 1.32 H (0.66-1.25) mg/dL Calcium 8.3 L (8.4-10.2) mg/dL Alkaline Phosphatase 218 H (38-126) U/L Total Protein 5.1 L (6.3-8.2) g/dL Albumin 2.9 L (3.5-5.0) g/dL Assessment and Plan (1) Wound infection after surgery Current Visit: Yes Status: Acute Code(s): T81.49XA - INFECTION FOLLOWING A PROCEDURE, OTHER SURGICAL SITE, INIT SNOMED Code(s): 98315774 (2) Penicillin allergy Current Visit: No Status: Acute Code(s): Z88.0 - ALLERGY STATUS TO PENI CILLIN SNOMED Code(s): 09422703 Plan: 1patient presented to hospital with generalized weakness also complaining of discomfort to the lumbar surgical site with minimal drainage concerning for possible lumbar surgical site infection superficial versus deep and will need to cover for the resistant gram-positive as well as gram-negative pathogen. 2patient is status post I&D of his lumbar incision and cultures which are currently growing MRSA as well as group D Enterococcus which is sensitive to penicillin as well as vancomycin 3patient did have improvement in the kidney function with a creatinine down to 1.32 white blood rhythm is being monitored closely by pharmacy to continue with vancomycin pharmacy to doses and monitor clinical course closely Dictation was produced using [employer] dictation software. please excuse any grammatical, word or spelling errors. Time with Patient: Less than 30
--- NOTE | 2024-01-23 13:06 | P.PN ---
Subjective Progress Note Date: 01/23/24 Nick Vora, is an 83-year-old male currently in rehab at [facility] who was sent to [facility] emergency room, for worsening shortness of breath decreased O2 saturation, hypotension, generalized weakness and erythema skin breakdown or from back surgical wound. He was evaluated in the emergency room vital examination on presentation revealed a temperature of 98.1 pulse 101 respiration 19 blood pressure 116/59 pulse ox 90% on 5 L nasal cannula Laboratory data revealed a white blood count of 8.9 hemoglobin 11.6 platelet count 138 BUN 29 creatinine 0.97 troponin 0.012 BNP 1470 Testing in the emergency room revealed EKG revealed sinus rhythm with first- degree AV block, CT scan of the lumbar spine revealed evidence of recent fusion L1-L5. Chest x-ray revealed findings suggestive of congestive heart failure, infiltrates of other etiology not excluded. Patient was admitted to medical floor for further evaluation and treatment Past medical history is significant for history of hypertension, history of hyperlipidemia, history of paroxysmal atrial fibrillation, history of benign prostatic hypertrophy, history of decreased hearing, history of invasive colonic adenocarcinoma patient will need surgical intervention in the near future after he is medically stable, history of recent back surgery with lumbar fusion. On review of systems patient is alert and oriented x 3 in no apparent distress there is no fever or chills no headache or dizziness no chest pain he has some s hortness of breath with any activity there is no cough no nausea or vomiting no abdominal pain no diarrhea no constipation no blood in the stools no burning with urination no frequency or urgency and no hematuria. On 01/13/2024, patient was seen and examined on the medical floor he is alert and oriented in no apparent distress, he underwent lumbar wounds I&D today with Dr. Ashton, there is no fever or chills no headache or dizziness no chest pain no shortness of breath no cough no nausea or vomiting no abdominal pain no diarrhea and no urinary symptoms white blood count is 6.3 hemoglobin 11.3 platelet count 97 BUN 31 creatinine 1.03 On 01/14/2024 patient's alert and oriented. Increased oxygen demands. Will consult pulmonary services infectious disease, cardiology, orthopedic services and pulmonary services have all been consulted. Patient remains on Maxipime and Comycin. Patient has been transitioned to p.o. Lasix per cardiology. Current vital signs temp 98.0, heart rate 91, respiratory rate 16, blood pressure 92/54 with a pulse ox of 94% on 13 L high flow On 01/15/2024 patient is alert and oriented x 3. Cultures coming back presumptive MRSA. Patient remains on vancomycin and cefepime. Infectious disease, pulmonary, cardiology and orthopedic services are following. Current vital signs temp 97.3, heart rate 85, respiratory rate 20, blood pressure 132/57 with a pulse ox of 92% on 13 L high flow. Patient did receive IV Lasix yesterday. Patient denies chest pain or shortness of breath. Patient denies nausea vomiting or diarrhea. Patient denies any urinary burning or frequency. On 01/16/2024 patient was seen and examined on the medical floor he is alert and oriented x 3 in no apparent distress there is no fever or chills no headache or dizziness no chest pain no shortness of breath no cough no nausea or vomiting no abdominal pain no diarrhea, he is complaining of constipation no blood in the stools no burning with urination no frequency or urgency and no hematuria. On 01/17/2024 patient is alert and oriented x 3. Patient remains on IV vancomycin. Current vital signs temp 97.6, heart 72, respiratory rate 18, blood pressure 98/52 with a pulse ox of 91% on 9 L. Patient denies chest pain or shortness of breath. Patient denies nausea vomiting or diarrhea. Patient denies any urinary burning or frequency. On 01/18/2024 patient was seen and examined on the medical floor, he is alert and oriented x 3 in no apparent distress he is maintained on Airvo FiO2 62 % temperature is 98 pulse 91 respiration 18 blood pressure 108/56 pulse ox 94% he is complaining of generalized weakness and constipation, otherwise he denies any complaints there is no fever or chills no headache or dizziness no chest pain no shortness of breath no cough no nausea or vomiting no abdominal pain no diarrhea and no urinary symptoms, white blood count is 5.9 hemoglobin 11.2 platelet count 146, sodium 134 potassium 3.4 chloride 93 BUN 58 creatinine 1.36 he remains on IV antibiotic vancomycin. On 01/19/2024 patient is alert and oriented 3 resting comfortably in bed. Patient remains on airvo for oxygen support.Patient remains on IV vancomycin. Creatinine 1.37 bun 64 Potassium 3.3 will replace per protocol. Patient denies chest pain or shortness breath. Patient denies nausea vomiting or diarrhea. Patient denies any urinary burning or frequency. On 01/20/2024 patient was seen and examined on the medical floor he is alert and oriented x 3 in no apparent distress, he is still maintained on high flow oxygen via Airvo, there is no fever or chills no headache or dizziness no chest pain no shortness of breath no cough no nausea or vomiting no abdominal pain no diarrhea, he is complaining of constipation no blood in the stools no burning with urination no frequency or urgency and no hematuria. pulmonary consult following. On 01/21/2024 patient is alert and oriented x 3 patient remains on high flow oxygen via Airvo. Patient denies chest pain or shortness of breath. Patient denies nausea vomiting or diarrhea. Patient denies any urinary burning or frequency. Current vital signs temp 98.2, heart rate 104, respiratory rate 22, blood pressure 116/58 with a pulse ox of 92% on Airvo 62%. Creatinine 1.26. Patient remains on IV Vanco. Patient denies chest pain or shortness of breath. Patient denies nausea vomiting or diarrhea. Patient denies any urinary burning or frequency On 01/22/2024 patient is alert and oriented x 3. Current vital signs temp 97.0, heart rate 95, respiratory rate 18, blood pressure 108/55 with a pulse ox of 96% on Airvo 40%. Patient denies chest pain or shortness of breath. Patient denies nausea vomiting or diarrhea. Patient denies any urinary burning or frequency. Potassium low at 3.1 will replace per protocol. Patient remains on IV vancomycin. On 01/23/2024 patient was seen and examined on the medical floor he is alert and oriented x 3 in no apparent distress there is no fever or chills no headache or dizziness no chest pain he is still having shortness of breath with any activity, he is maintained on high flow oxygen via Airvo, he has occasional cough no palpitation, no nausea or vomiting no abdominal pain no diarrhea no urinary symptoms Objective - Vital Signs Vital signs: Vital Signs Temp 97.1 F L 01/23/24 08:18 Pulse 86 01/23/24 08:44 Resp 20 01/23/24 08:19 BP 109/58 01/23/24 08:18 Pulse Ox 97 01/23/24 08:18 FiO2 40 01/23/24 08:32 Intake & Output 01/22/24 01/23/24 01/23/24 18:59 06:59 18:59 Intake Total 200 236 Output Total 200 800 Balance 0 -564 Weight 65 kg Intake: Oral 200 236 Output: Urine 200 800 Other: Voiding Method External Catheter External Catheter External Catheter # Bowel Movements 1 - Exam In general patient is alert and oriented x 3 in no distress HEENT head normocephalic and atraumatic Neck is supple no JVD no goiter no lymphadenopathy no carotid bruit Chest examination reveals a scattered crackles bilaterally no wheezing Cardiac exam reveals regular heart sounds S1 and S2 no gallops no murmurs Abdomen is soft nontender no organomegaly with normal bowel sounds Extremity exam reveals no edema no cyanosis or clubbing Back exam reveals mild erythema around the surgical wound with mild tenderness Neurological examination reveals generalized weakness with no gross focal defic its - Labs CBC & Chem 7: 01/23/24 07:09 01/23/24 07:09 Labs: Abnormal Lab Results - Last 24 Hours (Table) 01/23/24 01/23/24 Range/Units 07:09 07:09 RBC 3.68 L (4.30-5.90) m/uL Hgb 11.7 L (13.0-17.5) gm/dL Hct 37.2 L (39.0-53.0) % MCV 101.1 H (80.0-100.0) fL Sodium 135 L (137-145) mmol/L Potassium 3.3 L (3.5-5.1) mmol/L Chloride 90 L (98-107) mmol/L Carbon Dioxide 40 H (22-30) mmol/L BUN 74 H (9-20) mg/dL Creatinine 1.26 H (0.66-1.25) mg/dL Alkaline Phosphatase 231 H (38-126) U/L Total Protein 5.3 L (6.3-8.2) g/dL Albumin 3.1 L (3.5-5.0) g/dL Assessment and Plan Plan: Acute exacerbation of systolic congestive heart failure Cardiomyopathy with ejection fraction 25 to 30% on echocardiogram done on 09/07/2023 Worsening shortness of breath and decreased O2 saturation likely related to congestive heart failure Mild erythema and tenderness in the lumbar surgical wound site with wound infection cultures currently growing presumptive MRSA Underlying history of paroxysmal atrial fibrillation Underlying history of hypertension Underlying history of hyperlipidemia Underlying history of colon adenocarcinoma patient will need surgery when medically stable Physical debility Moderate to severe protein calorie malnutrition At this time patient was seen and examined Home medications reviewed and reordered Consultation for infectious disease, cardiology, and orthopedic surgery initia bladimir For DVT prophylaxis, patient is on Eliquis Prognosis is guarded will follow closely
[2024-01-23 14:20] VITALS: BMI 18.3
--- NOTE | 2024-01-23 14:58 | P.PN ---
Subjective Progress Note Date: 01/23/24 Principal diagnosis: Reason for follow-up is possible lumbar surgical site infection Patient is a 83-year-old male with a past medical history significant for CVA TIA hypertension hyperlipidemia atrial fibrillation prostate disorder patient is status post lumbar fusion surgery completed on 12/27/2023 has been brought back to the hospital concerning for drainage from his lumbar incision and concerning for surgical site infection.Patient was taken to the OR morning of 01/13/2024 and is status post lumbar wound I&D and cultures. On today's evaluation that is 01/23/2024,the patient remains to be afebrile, patient is on high flow nasal cannula oxygen 40% FiO2 however denies any worsening shortness of breath no chest pain or cough.Patient denies having any nausea or vomiting, no abdominal pain and no diarrhea has been reported. Patient white count 7.8, creatinine is 1.26 Objective - Vital Signs Vital signs: Vital Signs Temp 97.2 F L 01/23/24 11:35 Pulse 80 01/23/24 12:05 Resp 21 01/23/24 11:35 BP 119/71 01/23/24 11:35 Pulse Ox 96 01/23/24 11:35 FiO2 40 01/23/24 11:35 Intake & Output 01/22/24 01/23/24 01/23/24 18:59 06:59 18:59 Intake Total 200 236 Output Total 200 1500 Balance 0 -1264 Weight 65 kg 65 kg Intake: Oral 200 236 Output: Urine 200 1500 Other: Voiding Method External Catheter External Catheter External Catheter # Bowel Movements 1 1 - Exam GENERAL DESCRIPTION: An elderly male lying in bed in no distress RESPIRATORY SYSTEM: Unlabored breathing , decreased breath sounds at bases HEART: S1 S2 regular rate and rhythm , ABDOMEN: Soft , no tenderness EXTREMITIES: No edema feet - Labs CBC & Chem 7: 01/23/24 07:09 01/23/24 07:09 Labs: Abnormal Lab Results - Last 24 Hours (Table) 01/23/24 01/23/24 Range/Units 07:09 07:09 RBC 3.68 L (4.30-5.90) m/uL Hgb 11.7 L (13.0-17.5) gm/dL Hct 37.2 L (39.0-53.0) % MCV 101.1 H (80.0-100.0) fL Sodium 135 L (137-145) mmol/L Potassium 3.3 L (3.5-5.1) mmol/L Chloride 90 L (98-107) mmol/L Carbon Dioxide 40 H (22-30) mmol/L BUN 74 H (9-20) mg/dL Creatinine 1.26 H (0.66-1.25) mg/dL Alkaline Phosphatase 231 H (38-126) U/L Total Protein 5.3 L (6.3-8.2) g/dL Albumin 3.1 L (3.5-5.0) g/dL Assessment and Plan (1) Wound infection after surgery Current Visit: Yes Status: Acute Code(s): T81.49XA - INFECTION FOLLOWING A PROCEDURE, OTHER SURGICAL SITE, INIT SNOMED Code(s): 77115973 (2) Penicillin allergy Current Visit: No Status: Acute Code(s): Z88.0 - ALLERGY STATUS TO PENICILLIN SNOMED Code(s): 62225170 Plan: 1patient presented to hospital with generalized weakness also complaining of discomfort to the lumbar surgical site with minimal drainage concerning for possible lumbar surgical site infection superficial versus deep and will need to cover for the resistant gram-positive as well as gram-negative pathogen. 2patient is status post I&D of his lumbar incision and cultures which are currently growing MRSA as well as group D Enterococcus which is sensitive to penicillin as well as vancomycin 3patient did have improvement in the kidney function, vancomycin dosing has been discussed with the pharmacist who are confident we will be able to manage the dose and there is no need to switch him over to daptomycin hence we will continue vancomycin pharmacy to dose and watch his Vanco trough and kidney function closely Dictation was produced using [employer] dictation software. please excuse any grammatical, word or spelling errors. Time with Patient: Less than 30
--- NOTE | 2024-01-23 16:42 | P.PN ---
Subjective Progress Note Date: 01/23/24 84-year-old male patient admitted back to the hospital on 01/12/2024 from [facility] following a distance of a surgical incision to the lumbar spine. The wound edges were not approximated and pulling away from the incision. There was also mild to moderate amount of serous drainage identified for that reason the patient was brought into the hospital. The patient is status post open reduction to fixation of an L2-L3 with minimal invasive stabilization of L1 S1 and L2 L4 laminectomy. The patient underwent incision and drainage and the patient is currently on a combination of cefepime and vancomycin. Cultures are still negative for now. The patient is hemodynamically stable. During this current admission, the patient had progressive worsening in his oxygen requirements and the patient is currently on 11 L/min nasal cannula and for that reason the pulmonary cavitation was requested. I ordered a stat chest x-ray and this was completed and the patient has interstitial edema and bilateral pleural effusion right more than left. He has a weak cough. No reported aspiration. The patient has pulm vessel congestion/CHF. The patient is currently on oral Lasix. Blood work shows a white cell count of 7.9 with a hemoglobin 10.6 and a platelet count of 114. BUN 32 with a creatinine of 1.3 current serum bicarb is at 37 and sodium levels at 136. Procalcitonin level is at 0.17. He has a Mulligan catheter in place and is producing adequate amount of urine output. Fluid balance has been -2 L over the past 24 hours. On 01/15/2024, the patient is stableWithout any interval worsening shortness of breath. The patient is currently on 10 L of oxygen by nasal cannula with a pulse ox of 95%. Using incentive spirometer. He was given Lasix yesterday and the patient produced adequate urine output. He did end up pulling his Mulligan catheter and he currently has a condom cath and will monitoring his renal function and his urine output. Creatinine from today is at 1.21. No other complaints otherwise for now. He remains on IV vancomycin as the patient's wound culture was positive for MRSA. On 01/16/2024, the patient is being seen for a follow-up. The patient is calm and comfortable. There has been interval improvement the patient's oxygenation and the patient is currently down to 7 L of oxygen by nasal cannula. He is using incentive spirometer. He was given Lasix yesterday and the net fluid balance is -1.5 L over the past 24 hours. Creatinine stable at 1.24 with a BUN of 38. Serum bicarb is at 35. Sodium levels at 133. WBC count is 5.9 with a hemoglobin of 11.3. The patient remains on vancomycin regarding wound infection. No other new complaints otherwise for now. Remains in atrial fibrillation. Remains on anticoagulation with Eliquis. Remains on metoprolol 12.5 mg p.o. daily. Rest of the medications are essentially unchanged. Follow- up chest x-ray from today continues to show some atelectatic changes in lung bases bilaterally. Findings are essentially stable On 01/17/2024, the patient is being seen for a follow-up. The patient is currently hypoxic on 10 L of oxygen by nasal cannula. Pulse ox in the mid 80s. Based on that, the patient was placed on Airvo at 40 L with an FiO2 of 60%. A repeat chest x-ray was also requested and this was reviewed. The chest x-ray from today showing stable cardiomegaly, pulm vessel congestion, small bilateral pleural effusions and overall chest x-ray finding is consistent with CHF. There is some atelectatic changes in the lung bases bilaterally. The white cell count is 6.2 with a heme of 10.7 and a platelet count of 134. BUN is 43 with a creatinine of 1.34 and the creatinine remains stable. Sodium level is 131. Potassium level is at 3.7. The patient remains on IV vancomycin. The patient remains on Lasix 40 mg p.o. daily. Remains on anticoagulation with Eliquis. Remains on DuoNeb nebulizers [id number] and a combination of metoprolol XL 12.5 mg p.o. daily and amiodarone 12 mg p.o. daily. On 01/18/2024, the patient is being seen for a follow-up. He remains on oxygen Airvo at 40 L with an FiO2 of 60%. Pulse ox in the order of 95%. Not much cooperative with his incentive spirometer. He remains on IV Lasix. The patient is in a negative fluid balance. The BUN is at 58 with a creatinine of 1.36 and a sodium levels at 134 and a potassium level is at 3.4. Serum bicarbonate 38. The white cell count of 5.9 with a hemoglobin 11.2 and a platelet count of 146. The patient remains on DuoNeb nebulized treatments [id number]. The patient remains on IV vancomycin. Remains on anticoagulation with Eliquis 5 mg p.o. twice a day. IV Lasix 40 mg every 12 hours. On 01/19/2024, the patient is being seen for a follow-up. Remains on high flow Airvo oxygen and the patient remains on 40 L and FiO2 of 60%. The flow has been somewhat reduced compared to yesterday. Current pulse ox is in the order of 91 to 92%. Continues to receive diuretics and the patient is on the IV Lasix. Fluid balance is -1 L over the past 24 hours as the patient receiving 40 mg IV Lasix every 12 hours. Barely using his incentive spirometer. The BUN is 64 with a creatinine of 1.37. Electrolytes are all stable. Potassium level is down to 3.3. Serum bicarb is at 36. White cell count is at 6 with a hemoglobin of 11.5 and a platelet count of 145. Vancomycin trough was high at 31.7 dropped down to 29. The patient is seen today January 20, 2024 in follow-up on the regular medical floor. He is currently sitting up in bed. Awake and alert in no acute distress. He is still requiring Airvo high flow oxygen at 40 L and 50% FiO2. Chest x-ray revealed hypoventilatory changes with similar patchy bibasilar opacities and trace left pleural effusion. Wound culture positive for MRSA and Enterococcus faecalis. White count 7.0. Hemoglobin 11.9. Platelets 167. Sodium 137. Potassium 3.2. Bicarb 34. BUN 73. Creatinine 1.37. Glucose 263. Continued on vancomycin. Remains on bronchodilators. Anticoagulated with Eliquis. Remains on IV diuretics. Currently in a -1.2 L balance. The patient is seen today January 21, 2024 in follow-up on the regular medical floor. He is awake and alert in no acute distress. He is sitting up in bed. He remains on Airvo high flow oxygen at 40 L and 50% FiO2. Maintaining O2 saturations in the low to mid 90s. He is afebrile. Hemodynamically stable. Wound culture positive for MRSA and Enterococcus faecalis. Creatinine 1.26. Random vancomycin level 19.9. He remains on vancomycin. Remains on bronchodilators. Anticoagulated with Eliquis. Remains on IV diuretics. Remains in a negative balance. The patient is seen today January 22, 2024 in follow-up on the regular medical floor. He is currently sitting up in bed. Awake and alert in no acute distress. Still requiring Airvo high flow oxygen at 40 L and 40% FiO2. He remains on DuoNeb inhalations. Antibiotics in the form of vancomycin. He is continued on IV diuretics. Anticoagulated with Eliquis. Wound culture was positive for MRSA and Enterococcus faecalis. White count 7.1. Hemoglobin 11.3. Platelets 164. Sodium 134. Potassium 3.1. Bicarb 39. BUN 79. Creatinine 1.32. Random vancomycin 22.4. The patient is seen today January 23, 2024 in follow-up on the selective care unit. He is awake and alert in no acute distress. Sitting up in bed having lunch. Denies any worsening shortness of breath, cough or congestion. He remains on Airvo high flow oxygen at 40 L and 40% FiO2. Wound culture positive for MRSA and Enterococcus faecalis. White count 7.8. Hemoglobin 11.7. Platelets 159. Sodium 135. Potassium 3.3. Bicarb 40. BUN 74. Creatinine 1.2 6. He remains on bronchodilators. Continued on IV diuretics. Antibiotics in the form of vancomycin. Anticoagulated with Eliquis. Objective - Vital Signs Vital signs: Vital Signs Temp 97.0 F L 01/23/24 15:53 Pulse 92 01/23/24 15:53 Resp 19 01/23/24 15:53 BP 123/62 01/23/24 15:53 Pulse Ox 97 01/23/24 16:28 FiO2 40 01/23/24 16:28 Intake & Output 01/22/24 01/23/24 01/23/24 18:59 06:59 18:59 Intake Total 200 236 Output Total 200 1500 Balance 0 -1264 Weight 65 kg 65 kg Intake: Oral 200 236 Output: Urine 200 1500 Other: Voiding Method External Catheter External Catheter External Catheter # Bowel Movements 1 1 - Exam GENERAL EXAM: Alert, pleasant 83-year-old male, on Airvo high flow oxygen at 40 L and 40% FiO2, in no apparent distress. HEAD: Normocephalic. EYES: Normal reaction of pupils, equal size. NOSE: Clear with pink turbinates. THROAT: No erythema or exudates. NECK: No masses, no JVD. CHEST: No chest wall deformity. LUNGS: Equal air entry with crackles in the bilateral bases. CVS: S1 and S2 normal with no audible murmur, regular rhythm. ABDOMEN: No hepatosplenomegaly, normal bowel sounds, no guarding or rigidity. SPINE: No scoliosis or deformity. Dressing dry and intact SKIN: No rashes CENTRAL NERVOUS SYSTEM: No focal deficits, tone is normal in all 4 extremities. EXTREMITIES: There is 1-2+ peripheral edema. No clubbing, no cyanosis. Peripheral pulses are intact. - Labs CBC & Chem 7: 01/23/24 07:09 01/23/24 07:09 Labs: Abnormal Lab Results - Last 24 Hours (Table) 01/23/24 01/23/24 Range/Units 07:09 07:09 RBC 3.68 L (4.30-5.90) m/uL Hgb 11.7 L (13.0-17.5) gm/dL Hct 37.2 L (39.0-53.0) % MCV 101.1 H (80.0-100.0) fL Sodium 135 L (137-145) mmol/L Potassium 3.3 L (3.5-5.1) mmol/L Chloride 90 L (98-107) mmol/L Carbon Dioxide 40 H (22-30) mmol/L BUN 74 H (9-20) mg/dL Creatinine 1.26 H (0.66-1.25) mg/dL Alkaline Phosphatase 231 H (38-126) U/L Total Protein 5.3 L (6.3-8.2) g/dL Albumin 3.1 L (3.5-5.0) g/dL Assessment and Plan Assessment: Acute hypoxic respiratory failure secondary to atelectatic changes in the lung bases in addition to CHF and development of bilateral pleural effusion right more than left. Currently on Airvo with 40 L with FiO2 of 40%. Pneumonia is doubtful and the patient has been appropriately covered with vancomycin. Pulmonary embolism is doubtful as the patient is on anticoagulation with Eliquis. Ultrasound of the chest was also completed and there is no sizable pleural effusion. Responding to diuretics. Follow-up chest x-ray shows atelectatic changes, pulmonary vasculature congestion and cardiomegaly. Fall with fracture to the spine, status post open treatment L2-3 for hyperextension fracture, L1-L4 posterior lateral fusion. Dehiscence of lumbar incisions with suspected infection the patient has undergone an incision and drainage. Lumbar wound dehiscence due to pressure ulceration, cultures were positive for MRSA and Enterococcus faecali. Currently on vancomycin. Acute kidney injury and the creatinine is stable for now and the patient is producing good urine output while being on Lasix. Chronic atrial fibrillation anticoagulated with Eliquis Chronic systolic heart failure With an ejection fraction 25 to 30% Moderate to severe pulmonary hypertension History of mild coronary artery disease COPD, currently inactive and stable History of colon cancer, to be sched COPD ed for colectomy once recovered History of CVA/TIA History of hearing disorder Hyperlipidemia Former smoker Poor functional performance based on the above-mentioned multiple comorbidities, and the patient has generalized motor weakness in all 4 extremities Plan: The patient was seen and evaluated Labs and medications reviewed Remains on vancomycin Continue to work with the incentive spirometer Transition from Airvo to high flow oxygen Titrate down the FiO2 as tolerated Plan is to return to [facility] at discharge We will continue to follow I have personally seen and examined the patient, performed the documentation and the assessment and plan as written. Number of minutes spent on the visit: 10 Dictation was produced using [email or web address] dictation software. Please excuse any grammatical, word or spelling errors.
[2024-01-24 08:45] LABS: African American GFR (CKD) 62 (>60 ml/min/1.73 sqM); Non-African American GFR(CKD) 54 (>60 ml/min/1.73 sqM)
--- NOTE | 2024-01-24 10:11 | P.PN ---
Subjective Progress Note Date: 01/24/24 Nick Vora, is an 83-year-old male currently in rehab at [facility] who was sent to [facility] emergency room, for worsening shortness of breath decreased O2 saturation, hypotension, generalized weakness and erythema skin breakdown or from back surgical wound. He was evaluated in the emergency room vital examination on presentation revealed a temperature of 98.1 pulse 101 respiration 19 blood pressure 116/59 pulse ox 90% on 5 L nasal cannula Laboratory data revealed a white blood count of 8.9 hemoglobin 11.6 platelet count 138 BUN 29 creatinine 0.97 troponin 0.012 BNP 1470 Testing in the emergency room revealed EKG revealed sinus rhythm with first- degree AV block, CT scan of the lumbar spine revealed evidence of recent fusion L1-L5. Chest x-ray revealed findings suggestive of congestive heart failure, infiltrates of other etiology not excluded. Patient was admitted to medical floor for further evaluation and treatment Past medical history is significant for history of hypertension, history of hyperlipidemia, history of paroxysmal atrial fibrillation, history of benign prostatic hypertrophy, history of decreased hearing, history of invasive colonic adenocarcinoma patient will need surgical intervention in the near future after he is medically stable, history of recent back surgery with lumbar fusion. On review of systems patient is alert and oriented x 3 in no apparent distress there is no fever or chills no headache or dizziness no chest pain he has some s hortness of breath with any activity there is no cough no nausea or vomiting no abdominal pain no diarrhea no constipation no blood in the stools no burning with urination no frequency or urgency and no hematuria. On 01/13/2024, patient was seen and examined on the medical floor he is alert and oriented in no apparent distress, he underwent lumbar wounds I&D today with Dr. Ashton, there is no fever or chills no headache or dizziness no chest pain no shortness of breath no cough no nausea or vomiting no abdominal pain no diarrhea and no urinary symptoms white blood count is 6.3 hemoglobin 11.3 platelet count 97 BUN 31 creatinine 1.03 On 01/14/2024 patient's alert and oriented. Increased oxygen demands. Will consult pulmonary services infectious disease, cardiology, orthopedic services and pulmonary services have all been consulted. Patient remains on Maxipime and Comycin. Patient has been transitioned to p.o. Lasix per cardiology. Current vital signs temp 98.0, heart rate 91, respiratory rate 16, blood pressure 92/54 with a pulse ox of 94% on 13 L high flow On 01/15/2024 patient is alert and oriented x 3. Cultures coming back presumptive MRSA. Patient remains on vancomycin and cefepime. Infectious disease, pulmonary, cardiology and orthopedic services are following. Current vital signs temp 97.3, heart rate 85, respiratory rate 20, blood pressure 132/57 with a pulse ox of 92% on 13 L high flow. Patient did receive IV Lasix yesterday. Patient denies chest pain or shortness of breath. Patient denies nausea vomiting or diarrhea. Patient denies any urinary burning or frequency. On 01/16/2024 patient was seen and examined on the medical floor he is alert and oriented x 3 in no apparent distress there is no fever or chills no headache or dizziness no chest pain no shortness of breath no cough no nausea or vomiting no abdominal pain no diarrhea, he is complaining of constipation no blood in the stools no burning with urination no frequency or urgency and no hematuria. On 01/17/2024 patient is alert and oriented x 3. Patient remains on IV vancomycin. Current vital signs temp 97.6, heart 72, respiratory rate 18, blood pressure 98/52 with a pulse ox of 91% on 9 L. Patient denies chest pain or shortness of breath. Patient denies nausea vomiting or diarrhea. Patient denies any urinary burning or frequency. On 01/18/2024 patient was seen and examined on the medical floor, he is alert and oriented x 3 in no apparent distress he is maintained on Airvo FiO2 62 % temperature is 98 pulse 91 respiration 18 blood pressure 108/56 pulse ox 94% he is complaining of generalized weakness and constipation, otherwise he denies any complaints there is no fever or chills no headache or dizziness no chest pain no shortness of breath no cough no nausea or vomiting no abdominal pain no diarrhea and no urinary symptoms, white blood count is 5.9 hemoglobin 11.2 platelet count 146, sodium 134 potassium 3.4 chloride 93 BUN 58 creatinine 1.36 he remains on IV antibiotic vancomycin. On 01/19/2024 patient is alert and oriented 3 resting comfortably in bed. Patient remains on airvo for oxygen support.Patient remains on IV vancomycin. Creatinine 1.37 bun 64 Potassium 3.3 will replace per protocol. Patient denies chest pain or shortness breath. Patient denies nausea vomiting or diarrhea. Patient denies any urinary burning or frequency. On 01/20/2024 patient was seen and examined on the medical floor he is alert and oriented x 3 in no apparent distress, he is still maintained on high flow oxygen via Airvo, there is no fever or chills no headache or dizziness no chest pain no shortness of breath no cough no nausea or vomiting no abdominal pain no diarrhea, he is complaining of constipation no blood in the stools no burning with urination no frequency or urgency and no hematuria. pulmonary consult following. On 01/21/2024 patient is alert and oriented x 3 patient remains on high flow oxygen via Airvo. Patient denies chest pain or shortness of breath. Patient denies nausea vomiting or diarrhea. Patient denies any urinary burning or frequency. Current vital signs temp 98.2, heart rate 104, respiratory rate 22, blood pressure 116/58 with a pulse ox of 92% on Airvo 62%. Creatinine 1.26. Patient remains on IV Vanco. Patient denies chest pain or shortness of breath. Patient denies nausea vomiting or diarrhea. Patient denies any urinary burning or frequency On 01/22/2024 patient is alert and oriented x 3. Current vital signs temp 97.0, heart rate 95, respiratory rate 18, blood pressure 108/55 with a pulse ox of 96% on Airvo 40%. Patient denies chest pain or shortness of breath. Patient denies nausea vomiting or diarrhea. Patient denies any urinary burning or frequency. Potassium low at 3.1 will replace per protocol. Patient remains on IV vancomycin. On 01/23/2024 patient was seen and examined on the medical floor he is alert and oriented x 3 in no apparent distress there is no fever or chills no headache or dizziness no chest pain he is still having shortness of breath with any activity, he is maintained on high flow oxygen via Airvo, he has occasional cough no palpitation, no nausea or vomiting no abdominal pain no diarrhea no urinary symptoms On 01/24/2024 patient is alert and oriented x 3. Patient is making improvement currently down to 4 L nasal cannula. Patient remains on IV vancomycin. COVID- 19 was negative. Patient denies chest pain or shortness of breath. Patient denies nausea vomiting or diarrhea. Patient denies any urinary burning or frequency. PT OT services are consulted. Discharge planning back to [facility] when medically stable Objective - Vital Signs Vital signs: Vital Signs Temp 97.3 F L 01/24/24 09:19 Pulse 65 01/24/24 09:19 Resp 17 01/24/24 09:19 BP 121/60 01/24/24 09:19 Pulse Ox 99 01/24/24 09:19 FiO2 40 01/23/24 16:28 Intake & Output 01/23/24 01/24/24 01/24/24 18:59 06:59 18:59 Intake Total 476 Output Total 1750 700 Balance -1274 -700 Weight 65 kg 67.5 kg Intake: Oral 476 Output: Urine 1750 700 Other: Voiding Method External Catheter External Catheter # Voids 2 # Bowel Movements 1 - Exam In general patient is alert and oriented x 3 in no distress HEENT head normocephalic and atraumatic Neck is supple no JVD no goiter no lymphadenopathy no carotid bruit Chest examination reveals a scattered crackles bilaterally no wheezing Cardiac exam reveals regular heart sounds S1 and S2 no gallops no murmurs Abdomen is soft nontender no organomegaly with normal bowel sounds Extremity exam reveals no edema no cyanosis or clubbing Back exam reveals mild erythema around the surgical wound with mild tenderness Neurological examination reveals generalized weakness with no gross focal deficits - Labs CBC & Chem 7: 01/23/24 07:09 01/24/24 06:58 Assessment and Plan Plan: Acute exacerbation of systolic congestive heart failure Cardiomyopathy with ejection fraction 25 to 30% on echocardiogram done on 09/07/2023 Worsening shortness of breath and decreased O2 saturation likely related to congestive heart failure Mild erythema and tenderness in the lumbar surgical wound site with wound infection cultures currently growing presumptive MRSA Underlying history of paroxysmal atrial fibrillation Underlying history of hypertension Underlying history of hyperlipidemia Underlying history of colon adenocarcinoma patient will need surgery when medically stable Physical debility Moderate to severe protein calorie malnutrition At this time patient was seen and examined Home medications reviewed and reordered Consultation for infectious disease, cardiology, and orthopedic surgery initiated For DVT prophylaxis, patient is on Eliquis Prognosis is guarded will follow closely
--- NOTE | 2024-01-24 13:11 | P.PN ---
Subjective Progress Note Date: 01/24/24 Principal diagnosis: Reason for follow-up is possible lumbar surgical site infection Patient is a 83-year-old male with a past medical history significant for CVA TIA hypertension hyperlipidemia atrial fibrillation prostate disorder patient is status post lumbar fusion surgery completed on 12/27/2023 has been brought back to the hospital concerning for drainage from his lumbar incision and concerning for surgical site infection.Patient was taken to the OR morning of 01/13/2024 and is status post lumbar wound I&D and cultures. On today's evaluation that is 01/24/2024, the patient continues to be afebrile, the patient is down to 4 L nasal oxygen and breathing comfortably, the Pt denies having any chest pain or cough, the patient denies having any abdominal pain no vomiting or any diarrhea, denies any worsening back pain. Patient did have a creatinine 1.25 Objective - Vital Signs Vital signs: Vital Signs Temp 97.2 F L 01/24/24 11:53 Pulse 68 01/24/24 11:53 Resp 18 01/24/24 11:53 BP 97/52 01/24/24 11:53 Pulse Ox 97 01/24/24 11:53 FiO2 40 01/23/24 16:28 Intake & Output 01/23/24 01/24/24 01/24/24 18:59 06:59 18:59 Intake Total 476 240 Output Total 1750 700 700 Balance -1274 -700 -460 Weight 65 kg 67.5 kg Intake: Oral 476 240 Output: Urine 1750 700 700 Other: Voiding Method External Catheter External Catheter External Catheter # Voids 2 # Bowel Movements 1 - Exam GENERAL DESCRIPTION: An elderly male lying in bed in no distress RESPIRATORY SYSTEM: Unlabored breathing , decreased breath sounds at bases HEART: S1 S2 regular rate and rhythm , ABDOMEN: Soft , no tenderness EXTREMITIES: No edema feet - Labs CBC & Chem 7: 01/23/24 07:09 01/24/24 06:58 Assessment and Plan (1) Wound infection after surgery Current Visit: Yes Status: Acute Code(s): T81.49XA - INFECTION FOLLOWING A PROCEDURE, OTHER SURGICAL SITE, INIT SNOMED Code(s): 68699880 (2) Penicillin allergy Current Visit: No Status: Acute Code(s): Z88.0 - ALLERGY STATUS TO PENICILLIN SNOMED Code(s): 00612757 Plan: 1patient presented to hospital with generalized weakness also complaining of discomfort to the lumbar surgical site with minimal drainage concerning for poss ible lumbar surgical site infection superficial versus deep and will need to cover for the resistant gram-positive as well as gram-negative pathogen. 2patient is status post I&D of his lumbar incision and cultures which are currently growing MRSA as well as group D Enterococcus which is sensitive to penicillin as well as vancomycin 3patient did have improvement in the kidney function, patient currently being treated with vancomycin pharmacy to dose with a target of 15, plan is for total of 6-week course of antibiotics including days of antibiotics he has received here Dictation was produced using [employer] dictation software. please excuse any grammatical, word or spelling errors.
--- NOTE | 2024-01-24 17:26 | P.PN ---
Subjective Progress Note Date: 01/24/24 84-year-old male patient admitted back to the hospital on 01/12/2024 from [facility] following a distance of a surgical incision to the lumbar spine. The wound edges were not approximated and pulling away from the incision. There was also mild to moderate amount of serous drainage identified for that reason the patient was brought into the hospital. The patient is status post open reduction to fixation of an L2-L3 with minimal invasive stabilization of L1 S1 and L2 L4 laminectomy. The patient underwent incision and drainage and the patient is currently on a combination of cefepime and vancomycin. Cultures are still negative for now. The patient is hemodynamically stable. During this current admission, the patient had progressive worsening in his oxygen requirements and the patient is currently on 11 L/min nasal cannula and for that reason the pulmonary cavitation was requested. I ordered a stat chest x-ray and this was completed and the patient has interstitial edema and bilateral pleural effusion right more than left. He has a weak cough. No reported aspiration. The patient has pulm vessel congestion/CHF. The patient is currently on oral Lasix. Blood work shows a white cell count of 7.9 with a hemoglobin 10.6 and a platelet count of 114. BUN 32 with a creatinine of 1.3 current serum bicarb is at 37 and sodium levels at 136. Procalcitonin level is at 0.17. He has a Mulligan catheter in place and is producing adequate amount of urine output. Fluid balance has been -2 L over the past 24 hours. On 01/15/2024, the patient is stableWithout any interval worsening shortness of breath. The patient is currently on 10 L of oxygen by nasal cannula with a pulse ox of 95%. Using incentive spirometer. He was given Lasix yesterday and the patient produced adequate urine output. He did end up pulling his Mulligan catheter and he currently has a condom cath and will monitoring his renal function and his urine output. Creatinine from today is at 1.21. No other complaints otherwise for now. He remains on IV vancomycin as the patient's wound culture was positive for MRSA. On 01/16/2024, the patient is being seen for a follow-up. The patient is calm and comfortable. There has been interval improvement the patient's oxygenation and the patient is currently down to 7 L of oxygen by nasal cannula. He is using incentive spirometer. He was given Lasix yesterday and the net fluid balance is -1.5 L over the past 24 hours. Creatinine stable at 1.24 with a BUN of 38. Serum bicarb is at 35. Sodium levels at 133. WBC count is 5.9 with a hemoglobin of 11.3. The patient remains on vancomycin regarding wound infection. No other new complaints otherwise for now. Remains in atrial fibrillation. Remains on anticoagulation with Eliquis. Remains on metoprolol 12.5 mg p.o. daily. Rest of the medications are essentially unchanged. Follow- up chest x-ray from today continues to show some atelectatic changes in lung bases bilaterally. Findings are essentially stable On 01/17/2024, the patient is being seen for a follow-up. The patient is currently hypoxic on 10 L of oxygen by nasal cannula. Pulse ox in the mid 80s. Based on that, the patient was placed on Airvo at 40 L with an FiO2 of 60%. A repeat chest x-ray was also requested and this was reviewed. The chest x-ray from today showing stable cardiomegaly, pulm vessel congestion, small bilateral pleural effusions and overall chest x-ray finding is consistent with CHF. There is some atelectatic changes in the lung bases bilaterally. The white cell count is 6.2 with a heme of 10.7 and a platelet count of 134. BUN is 43 with a creatinine of 1.34 and the creatinine remains stable. Sodium level is 131. Potassium level is at 3.7. The patient remains on IV vancomycin. The patient remains on Lasix 40 mg p.o. daily. Remains on anticoagulation with Eliquis. Remains on DuoNeb nebulizers [id number] and a combination of metoprolol XL 12.5 mg p.o. daily and amiodarone 12 mg p.o. daily. On 01/18/2024, the patient is being seen for a follow-up. He remains on oxygen Airvo at 40 L with an FiO2 of 60%. Pulse ox in the order of 95%. Not much cooperative with his incentive spirometer. He remains on IV Lasix. The patient is in a negative fluid balance. The BUN is at 58 with a creatinine of 1.36 and a sodium levels at 134 and a potassium level is at 3.4. Serum bicarbonate 38. The white cell count of 5.9 with a hemoglobin 11.2 and a platelet count of 146. The patient remains on DuoNeb nebulized treatments [id number]. The patient remains on IV vancomycin. Remains on anticoagulation with Eliquis 5 mg p.o. twice a day. IV Lasix 40 mg every 12 hours. On 01/19/2024, the patient is being seen for a follow-up. Remains on high flow Airvo oxygen and the patient remains on 40 L and FiO2 of 60%. The flow has been somewhat reduced compared to yesterday. Current pulse ox is in the order of 91 to 92%. Continues to receive diuretics and the patient is on the IV Lasix. Fluid balance is -1 L over the past 24 hours as the patient receiving 40 mg IV Lasix every 12 hours. Barely using his incentive spirometer. The BUN is 64 with a creatinine of 1.37. Electrolytes are all stable. Potassium level is down to 3.3. Serum bicarb is at 36. White cell count is at 6 with a hemoglobin of 11.5 and a platelet count of 145. Vancomycin trough was high at 31.7 dropped down to 29. The patient is seen today January 20, 2024 in follow-up on the regular medical floor. He is currently sitting up in bed. Awake and alert in no acute distress. He is still requiring Airvo high flow oxygen at 40 L and 50% FiO2. Chest x-ray revealed hypoventilatory changes with similar patchy bibasilar opacities and trace left pleural effusion. Wound culture positive for MRSA and Enterococcus faecalis. White count 7.0. Hemoglobin 11.9. Platelets 167. Sodium 137. Potassium 3.2. Bicarb 34. BUN 73. Creatinine 1.37. Glucose 263. Continued on vancomycin. Remains on bronchodilators. Anticoagulated with Eliquis. Remains on IV diuretics. Currently in a -1.2 L balance. The patient is seen today January 21, 2024 in follow-up on the regular medical floor. He is awake and alert in no acute distress. He is sitting up in bed. He remains on Airvo high flow oxygen at 40 L and 50% FiO2. Maintaining O2 saturations in the low to mid 90s. He is afebrile. Hemodynamically stable. Wound culture positive for MRSA and Enterococcus faecalis. Creatinine 1.26. Random vancomycin level 19.9. He remains on vancomycin. Remains on bronchodilators. Anticoagulated with Eliquis. Remains on IV diuretics. Remains in a negative balance. The patient is seen today January 22, 2024 in follow-up on the regular medical floor. He is currently sitting up in bed. Awake and alert in no acute distress. Still requiring Airvo high flow oxygen at 40 L and 40% FiO2. He remains on DuoNeb inhalations. Antibiotics in the form of vancomycin. He is continued on IV diuretics. Anticoagulated with Eliquis. Wound culture was positive for MRSA and Enterococcus faecalis. White count 7.1. Hemoglobin 11.3. Platelets 164. Sodium 134. Potassium 3.1. Bicarb 39. BUN 79. Creatinine 1.32. Random vancomycin 22.4. The patient is seen today January 23, 2024 in follow-up on the selective care unit. He is awake and alert in no acute distress. Sitting up in bed having lunch. Denies any worsening shortness of breath, cough or congestion. He remains on Airvo high flow oxygen at 40 L and 40% FiO2. Wound culture positive for MRSA and Enterococcus faecalis. White count 7.8. Hemoglobin 11.7. Platelets 159. Sodium 135. Potassium 3.3. Bicarb 40. BUN 74. Creatinine 1.2 6. He remains on bronchodilators. Continued on IV diuretics. Antibiotics in the form of vancomycin. Anticoagulated with Eliquis. The patient is seen today January 24, 2024 in follow-up on the selective care unit. He is currently sitting up in bed. Awake and alert in no acute distress. Denies any worsening shortness of breath, cough or congestion. States he is breathing better today compared to yesterday. Maintaining good O2 saturations in the mid 90s on 4 L/min per nasal cannula. He is afebrile. Hemodynamically stable. Wound cultures positive for MRSA, Enterococcus faecalis. He remains on vancomycin. Continued on bronchodilators. Anticoagulated with Eliquis. Remains on IV diuretics. Currently in a -1.9 L balance. Creatinine 1.25. COVID-19 screen negative. Objective - Vital Signs Vital signs: Vital Signs Temp 97.2 F L 01/24/24 11:53 Pulse 68 01/24/24 16:43 Resp 18 01/24/24 16:43 BP 109/59 01/24/24 16:43 Pulse Ox 95 01/24/24 16:43 FiO2 40 01/23/24 16:28 Intake & Output 01/23/24 01/24/24 01/24/24 18:59 06:59 18:59 Intake Total 476 240 Output Total 1750 700 700 Balance -1274 -700 -460 Weight 65 kg 67.5 kg Intake: Oral 476 240 Output: Urine 1750 700 700 Other: Voiding Method External Catheter External Catheter External Catheter # Voids 2 # Bowel Movements 1 - Exam GENERAL EXAM: Alert, pleasant 83-year-old male, sitting up in bed, on 4 L/min per nasal cannula, in no apparent distress. HEAD: Normocephalic. EYES: Normal reaction of pupils, equal size. NOSE: Clear with pink turbinates. THROAT: No erythema or exudates. NECK: No masses, no JVD. CHEST: No chest wall deformity. LUNGS: Equal air entry with crackles in the bilateral bases. CVS: S1 and S2 normal with no audible murmur, regular rhythm. ABDOMEN: No hepatosplenomegaly, normal bowel sounds, no guarding or rigidity. SPINE: No scoliosis or deformity. Dressing dry and intact SKIN: No rashes CENTRAL NERVOUS SYSTEM: No focal deficits, tone is normal in all 4 extremities. EXTREMITIES: There is 1-2+ peripheral edema. No clubbing, no cyanosis. Peripheral pulses are intact. - Labs CBC & Chem 7: 01/23/24 07:09 01/24/24 06:58 Assessment and Plan Assessment: Acute hypoxic respiratory failure secondary to atelectatic changes in the lung bases in addition to CHF and development of bilateral pleural effusion right more than left. Pneumonia is doubtful and the patient has been appropriately covered with vancomycin. Pulmonary embolism is doubtful as the patient is on anticoagulation with Eliquis. Ultrasound of the chest was also completed and there is no sizable pleural effusion. Responding to diuretics. Follow-up chest x-ray shows atelectatic changes, pulmonary vasculature congestion and cardiomegaly. Improved. Currently on 4 L nasal cannula. Fall with fracture to the spine, status post open treatment L2-3 for hy perextension fracture, L1-L4 posterior lateral fusion. Dehiscence of lumbar incisions with suspected infection the patient has undergone an incision and drainage. Lumbar wound dehiscence due to pressure ulceration, cultures were positive for MRSA and Enterococcus faecali. Currently on vancomycin. Acute kidney injury and the creatinine is stable for now and the patient is producing good urine output while being on Lasix. Chronic atrial fibrillation anticoagulated with Eliquis Chronic systolic heart failure With an ejection fraction 25 to 30% Moderate to severe pulmonary hypertension History of mild coronary artery disease COPD, currently inactive and stable History of colon cancer, to be sched COPD ed for colectomy once recovered History of CVA/TIA History of hearing disorder Hyperlipidemia Former smoker Poor functional performance based on the above-mentioned multiple comorbidities, and the patient has generalized motor weakness in all 4 extremities Plan: The patient was seen and evaluated Labs and medications reviewed Improved and on 4 L nasal cannula Titrate down the FiO2 as tolerated Plan is to return to [facility] at discharge We will continue to follow I have personally seen and examined the patient, performed the documentation and the assessment and plan as written. Number of minutes spent on the visit: 10 Dictation was produced using [employer] dictation software. Please excuse any grammatical, word or spelling errors.
[2024-01-25 07:56] LABS: Basophils % (A) 0 %; Eosinophils # (A) 0.4 k/uL (0-0.7); Eosinophils % (A) 6 %; HCT 40.6 % (39.0-53.0); HGB 12.7 gm/dL (13.0-17.5); Hypochromasia Marked; Lymphocytes # (A) 0.8 k/uL (1.0-4.8); Lymphocytes % (A) 11 %; MCH 31.4 pg (25.0-35.0); MCHC 31.2 g/dL (31.0-37.0); MCV 100.5 fL (80.0-100.0); Macrocytosis Slight; Mean Platelet Volume 9.6; Monocytes # (A) 0.4 k/uL (0-1.0); Monocytes % (A) 5 %; Neutrophils # (A) 6.1 k/uL (1.3-7.7); Neutrophils % (A) 78 %; Platelet Count 136 k/uL (150-450); Poikilocytosis Slight; RBC 4.04 m/uL (4.30-5.90); WBC 7.8 k/uL (3.8-10.6)
[2024-01-25 08:08] LABS: ALT 22 U/L (4-49); AST 43 U/L (17-59); African American GFR (CKD) 71 (>60 ml/min/1.73 sqM); Albumin 3.4 g/dL (3.5-5.0); Alkaline Phosphatase 201 U/L (38-126); Blood Urea Nitrogen 81 mg/dL (9-20); Calcium 8.6 mg/dL (8.4-10.2); Chloride 91 mmol/L (98-107); Glucose 86 mg/dL (74-99); Non-African American GFR(CKD) 62 (>60 ml/min/1.73 sqM); Sodium 135 mmol/L (137-145); Total Bilirubin 0.8 mg/dL (0.2-1.3); Total Protein 5.8 g/dL (6.3-8.2)
[2024-01-25 08:17] LABS: Anion Gap 7 mmol/L
[2024-01-25 08:39] LABS: Carbon Dioxide 37 mmol/L (22-30)
--- NOTE | 2024-01-25 12:20 | P.PN ---
Subjective Progress Note Date: 01/25/24 Nick Vora, is an 83-year-old male currently in rehab at [facility] who was sent to [facility] emergency room, for worsening shortness of breath decreased O2 saturation, hypotension, generalized weakness and erythema skin breakdown or from back surgical wound. He was evaluated in the emergency room vital examination on presentation revealed a temperature of 98.1 pulse 101 respiration 19 blood pressure 116/59 pulse ox 90% on 5 L nasal cannula Laboratory data revealed a white blood count of 8.9 hemoglobin 11.6 platelet count 138 BUN 29 creatinine 0.97 troponin 0.012 BNP 1470 Testing in the emergency room revealed EKG revealed sinus rhythm with first- degree AV block, CT scan of the lumbar spine revealed evidence of recent fusion L1-L5. Chest x-ray revealed findings suggestive of congestive heart failure, infiltrates of other etiology not excluded. Patient was admitted to medical floor for further evaluation and treatment Past medical history is significant for history of hypertension, history of hyperlipidemia, history of paroxysmal atrial fibrillation, history of benign prostatic hypertrophy, history of decreased hearing, history of invasive colonic adenocarcinoma patient will need surgical intervention in the near future after he is medically stable, history of recent back surgery with lumbar fusion. On review of systems patient is alert and oriented x 3 in no apparent distress there is no fever or chills no headache or dizziness no chest pain he has some s hortness of breath with any activity there is no cough no nausea or vomiting no abdominal pain no diarrhea no constipation no blood in the stools no burning with urination no frequency or urgency and no hematuria. On 01/13/2024, patient was seen and examined on the medical floor he is alert and oriented in no apparent distress, he underwent lumbar wounds I&D today with Dr. Ashton, there is no fever or chills no headache or dizziness no chest pain no shortness of breath no cough no nausea or vomiting no abdominal pain no diarrhea and no urinary symptoms white blood count is 6.3 hemoglobin 11.3 platelet count 97 BUN 31 creatinine 1.03 On 01/14/2024 patient's alert and oriented. Increased oxygen demands. Will consult pulmonary services infectious disease, cardiology, orthopedic services and pulmonary services have all been consulted. Patient remains on Maxipime and Comycin. Patient has been transitioned to p.o. Lasix per cardiology. Current vital signs temp 98.0, heart rate 91, respiratory rate 16, blood pressure 92/54 with a pulse ox of 94% on 13 L high flow On 01/15/2024 patient is alert and oriented x 3. Cultures coming back presumptive MRSA. Patient remains on vancomycin and cefepime. Infectious disease, pulmonary, cardiology and orthopedic services are following. Current vital signs temp 97.3, heart rate 85, respiratory rate 20, blood pressure 132/57 with a pulse ox of 92% on 13 L high flow. Patient did receive IV Lasix yesterday. Patient denies chest pain or shortness of breath. Patient denies nausea vomiting or diarrhea. Patient denies any urinary burning or frequency. On 01/16/2024 patient was seen and examined on the medical floor he is alert and oriented x 3 in no apparent distress there is no fever or chills no headache or dizziness no chest pain no shortness of breath no cough no nausea or vomiting no abdominal pain no diarrhea, he is complaining of constipation no blood in the stools no burning with urination no frequency or urgency and no hematuria. On 01/17/2024 patient is alert and oriented x 3. Patient remains on IV vancomycin. Current vital signs temp 97.6, heart 72, respiratory rate 18, blood pressure 98/52 with a pulse ox of 91% on 9 L. Patient denies chest pain or shortness of breath. Patient denies nausea vomiting or diarrhea. Patient denies any urinary burning or frequency. On 01/18/2024 patient was seen and examined on the medical floor, he is alert and oriented x 3 in no apparent distress he is maintained on Airvo FiO2 62 % temperature is 98 pulse 91 respiration 18 blood pressure 108/56 pulse ox 94% he is complaining of generalized weakness and constipation, otherwise he denies any complaints there is no fever or chills no headache or dizziness no chest pain no shortness of breath no cough no nausea or vomiting no abdominal pain no diarrhea and no urinary symptoms, white blood count is 5.9 hemoglobin 11.2 platelet count 146, sodium 134 potassium 3.4 chloride 93 BUN 58 creatinine 1.36 he remains on IV antibiotic vancomycin. On 01/19/2024 patient is alert and oriented 3 resting comfortably in bed. Patient remains on airvo for oxygen support.Patient remains on IV vancomycin. Creatinine 1.37 bun 64 Potassium 3.3 will replace per protocol. Patient denies chest pain or shortness breath. Patient denies nausea vomiting or diarrhea. Patient denies any urinary burning or frequency. On 01/20/2024 patient was seen and examined on the medical floor he is alert and oriented x 3 in no apparent distress, he is still maintained on high flow oxygen via Airvo, there is no fever or chills no headache or dizziness no chest pain no shortness of breath no cough no nausea or vomiting no abdominal pain no diarrhea, he is complaining of constipation no blood in the stools no burning with urination no frequency or urgency and no hematuria. pulmonary consult following. On 01/21/2024 patient is alert and oriented x 3 patient remains on high flow oxygen via Airvo. Patient denies chest pain or shortness of breath. Patient denies nausea vomiting or diarrhea. Patient denies any urinary burning or frequency. Current vital signs temp 98.2, heart rate 104, respiratory rate 22, blood pressure 116/58 with a pulse ox of 92% on Airvo 62%. Creatinine 1.26. Patient remains on IV Vanco. Patient denies chest pain or shortness of breath. Patient denies nausea vomiting or diarrhea. Patient denies any urinary burning or frequency On 01/22/2024 patient is alert and oriented x 3. Current vital signs temp 97.0, heart rate 95, respiratory rate 18, blood pressure 108/55 with a pulse ox of 96% on Airvo 40%. Patient denies chest pain or shortness of breath. Patient denies nausea vomiting or diarrhea. Patient denies any urinary burning or frequency. Potassium low at 3.1 will replace per protocol. Patient remains on IV vancomycin. On 01/23/2024 patient was seen and examined on the medical floor he is alert and oriented x 3 in no apparent distress there is no fever or chills no headache or dizziness no chest pain he is still having shortness of breath with any activity, he is maintained on high flow oxygen via Airvo, he has occasional cough no palpitation, no nausea or vomiting no abdominal pain no diarrhea no urinary symptoms On 01/24/2024 patient is alert and oriented x 3. Patient is making improvement currently down to 4 L nasal cannula. Patient remains on IV vancomycin. COVID- 19 was negative. Patient denies chest pain or shortness of breath. Patient denies nausea vomiting or diarrhea. Patient denies any urinary burning or frequency. PT OT services are consulted. Discharge planning back to [facility] when medically stable. On 01/25/2024 patient was seen and examined on the medical floor he is alert and oriented x 3 in no apparent distress there is no fever or chills no headache or dizziness no chest pain no shortness of breath no cough no nausea or vomiting no diarrhea no blood in the stools no burning with urination no frequency or urgency and no hematuria. Oxygen requirements are down to 4 L/min, will continue to monitor if improving possible transfer to [facility] on Saturday. Objective - Vital Signs Vital signs: Vital Signs Temp 98.4 F 01/25/24 08:31 Pulse 73 01/25/24 08:31 Resp 18 01/25/24 08:31 BP 92/50 01/25/24 08:31 Pulse Ox 96 01/25/24 08:31 FiO2 40 01/23/24 16:28 Intake & Output 01/24/24 01/25/24 01/25/24 18:59 06:59 18:59 Intake Total 1320 236 Output Total 700 550 Balance 620 -550 236 Weight 68.5 kg Intake: Oral 1320 236 Output: Urine 700 550 Other: Voiding Method External Catheter External Catheter External Catheter - Exam In general patient is alert and oriented x 3 in no distress HEENT head normocephalic and atraumatic Neck is supple no JVD no goiter no lymphadenopathy no carotid bruit Chest examination reveals a scattered crackles bilaterally no wheezing Cardiac exam reveals regular heart sounds S1 and S2 no gallops no murmurs Abdomen is soft nontender no organomegaly with normal bowel sounds Extremity exam reveals no edema no cyanosis or clubbing Back exam reveals mild erythema around the surgical wound with mild tenderness Neurological examination reveals generalized weakness with no gross focal deficits - Labs CBC & Chem 7: 01/25/24 07:30 01/25/24 07:30 Labs: Abnormal Lab Results - Last 24 Hours (Table) 01/25/24 01/25/24 Range/Units 07:30 07:30 RBC 4.04 L (4.30-5.90) m/uL Hgb 12.7 L (13.0-17.5) gm/dL MCV 100.5 H (80.0-100.0) fL Plt Count 136 L (150-450) k/uL Lymphocytes # 0.8 L (1.0-4.8) k/uL Sodium 135 L (137-145) mmol/L Chloride 91 L (98-107) mmol/L Carbon Dioxide 37 H (22-30) mmol/L BUN 81 H (9-20) mg/dL Alkaline Phosphatase 201 H (38-126) U/L Total Protein 5.8 L (6.3-8.2) g/dL Albumin 3.4 L (3.5-5.0) g/dL Microbiology - Last 24 Hours (Table) 01/13/24 10:51 Fungal Culture - Preliminary Other - Other 01/13/24 10:51 Fungal Culture - Preliminary Other - Other Assessment and Plan Plan: Acute exacerbation of systolic congestive heart failure Cardiomyopathy with ejection fraction 25 to 30% on echocardiogram done on 09/07/2023 Worsening shortness of breath and decreased O2 saturation likely related to congestive heart failure Mild erythema and tenderness in the lumbar surgical wound site with wound infection cultures currently growing presumptive MRSA Underlying history of paroxysmal atrial fibrillation Underlying history of hypertension Underlying history of hyperlipidemia Underlying history of colon adenocarcinoma patient will need surgery when medically stable Physical debility Moderate to severe protein calorie malnutrition At this time patient was seen and examined Home medications reviewed and reordered Consultation for infectious disease, cardiology, and orthopedic surgery initiated For DVT prophylaxis, patient is on Eliquis Prognosis is guarded will follow closely
--- NOTE | 2024-01-25 13:41 | P.PN ---
Subjective Progress Note Date: 01/25/24 Principal diagnosis: Reason for follow-up is possible lumbar surgical site infection Patient is a 83-year-old male with a past medical history significant for CVA TIA hypertension hyperlipidemia atrial fibrillation prostate disorder patient is status post lumbar fusion surgery completed on 12/27/2023 has been brought back to the hospital concerning for drainage from his lumbar incision and concerning for surgical site infection.Patient was taken to the OR morning of 01/13/2024 and is status post lumbar wound I&D and cultures. On today's evaluation that is 01/25/2024, patient did not have any fever and denies any chills, patient is breathing comfortably on 4 L nasal cannula oxygen patient with no chest pain or cough patient did not have any abdominal pain nausea vomiting or any loose stools, back pain is controlled. Patient white count 7.8 creatinine is 1.11 Objective - Vital Signs Vital signs: Vital Signs Temp 97.7 F 01/25/24 11:56 Pulse 88 01/25/24 11:56 Resp 18 01/25/24 11:56 BP 101/60 01/25/24 11:56 Pulse Ox 95 01/25/24 11:56 FiO2 40 01/23/24 16:28 Intake & Output 01/24/24 01/25/24 01/25/24 18:59 06:59 18:59 Intake Total 1320 476 Output Total 700 550 500 Balance 620 -550 -24 Weight 68.5 kg Intake: Oral 1320 476 Output: Urine 700 550 500 Other: Voiding Method External Catheter External Catheter External Catheter - Exam GENERAL DESCRIPTION: An elderly male lying in bed in no distress RESPIRATORY SYSTEM: Unlabored breathing , decreased breath sounds at bases HEART: S1 S2 regular rate and rhythm , ABDOMEN: Soft , no tenderness EXTREMITIES: No edema feet - Labs CBC & Chem 7: 01/25/24 07:30 01/25/24 07:30 Labs: Abnormal Lab Results - Last 24 Hours (Table) 01/25/24 01/25/24 Range/Units 07:30 07:30 RBC 4.04 L (4.30-5.90) m/uL Hgb 12.7 L (13.0-17.5) gm/dL MCV 100.5 H (80.0-100.0) fL Plt Count 136 L (150-450) k/uL Lymphocytes # 0.8 L (1.0-4.8) k/uL Sodium 135 L (137-145) mmol/L Chloride 91 L (98-107) mmol/L Carbon Dioxide 37 H (22-30) mmol/L BUN 81 H (9-20) mg/dL Alkaline Phosphatase 201 H (38-126) U/L Total Protein 5.8 L (6.3-8.2) g/dL Albumin 3.4 L (3.5-5.0) g/dL Microbiology - Last 24 Hours (Table) 01/13/24 10:51 Fungal Culture - Preliminary Other - Other 01/13/24 10:51 Fungal Culture - Preliminary Other - Other Assessment and Plan (1) Wound infection after surgery Current Visit: Yes Status: Acute Code(s): T81.49XA - INFECTION FOLLOWING A PROCEDURE, OTHER SURGICAL SITE, INIT SNOMED Code(s): 94611524 (2) Penicillin allergy Current Visit: No Status: Acute Code(s): Z88.0 - ALLERGY STATUS TO PENICILLIN SNOMED Code(s): 28101512 Plan: 1patient presented to hospital with generalized weakness also complaining of discomfort to the lumbar surgical site with minimal drainage concerning for possible lumbar surgical site infection superficial versus deep and will need to cover for the resistant gram-positive as well as gram-negative pathogen. 2patient is status post I&D of his lumbar incision and cultures which are currently growing MRSA as well as group D Enterococcus which is sensitive to penicillin as well as vancomycin 3patient did have improvement in the kidney function with a creatinine down to 1.11 and his white count is normal 4- patient currently being treated with vancomycin pharmacy to dose with a target of 15, plan is for total of 6-week course of antibiotics including days of antibiotics he has received here and close outpatient follow-up Dictation was produced using [employer] software. please excuse any grammatical, word or spelling errors. Time with Patient: Less than 30
--- NOTE | 2024-01-25 15:01 | P.PN ---
Subjective Progress Note Date: 01/25/24 84-year-old male patient admitted back to the hospital on 01/12/2024 from [facility] following a distance of a surgical incision to the lumbar spine. The wound edges were not approximated and pulling away from the incision. There was also mild to moderate amount of serous drainage identified for that reason the patient was brought into the hospital. The patient is status post open reduction to fixation of an L2-L3 with minimal invasive stabilization of L1 S1 and L2 L4 laminectomy. The patient underwent incision and drainage and the patient is currently on a combination of cefepime and vancomycin. Cultures are still negative for now. The patient is hemodynamically stable. During this current admission, the patient had progressive worsening in his oxygen requirements and the patient is currently on 11 L/min nasal cannula and for that reason the pulmonary cavitation was requested. I ordered a stat chest x-ray and this was completed and the patient has interstitial edema and bilateral pleural effusion right more than left. He has a weak cough. No reported aspiration. The patient has pulm vessel congestion/CHF. The patient is currently on oral Lasix. Blood work shows a white cell count of 7.9 with a hemoglobin 10.6 and a platelet count of 114. BUN 32 with a creatinine of 1.3 current serum bicarb is at 37 and sodium levels at 136. Procalcitonin level is at 0.17. He has a Mulligan catheter in place and is producing adequate amount of urine output. Fluid balance has been -2 L over the past 24 hours. On 01/15/2024, the patient is stableWithout any interval worsening shortness of breath. The patient is currently on 10 L of oxygen by nasal cannula with a pulse ox of 95%. Using incentive spirometer. He was given Lasix yesterday and the patient produced adequate urine output. He did end up pulling his Mulligan catheter and he currently has a condom cath and will monitoring his renal function and his urine output. Creatinine from today is at 1.21. No other complaints otherwise for now. He remains on IV vancomycin as the patient's wound culture was positive for MRSA. On 01/16/2024, the patient is being seen for a follow-up. The patient is calm and comfortable. There has been interval improvement the patient's oxygenation and the patient is currently down to 7 L of oxygen by nasal cannula. He is using incentive spirometer. He was given Lasix yesterday and the net fluid balance is -1.5 L over the past 24 hours. Creatinine stable at 1.24 with a BUN of 38. Serum bicarb is at 35. Sodium levels at 133. WBC count is 5.9 with a hemoglobin of 11.3. The patient remains on vancomycin regarding wound infection. No other new complaints otherwise for now. Remains in atrial fibrillation. Remains on anticoagulation with Eliquis. Remains on metoprolol 12.5 mg p.o. daily. Rest of the medications are essentially unchanged. Follow- up chest x-ray from today continues to show some atelectatic changes in lung bases bilaterally. Findings are essentially stable On 01/17/2024, the patient is being seen for a follow-up. The patient is currently hypoxic on 10 L of oxygen by nasal cannula. Pulse ox in the mid 80s. Based on that, the patient was placed on Airvo at 40 L with an FiO2 of 60%. A repeat chest x-ray was also requested and this was reviewed. The chest x-ray from today showing stable cardiomegaly, pulm vessel congestion, small bilateral pleural effusions and overall chest x-ray finding is consistent with CHF. There is some atelectatic changes in the lung bases bilaterally. The white cell count is 6.2 with a heme of 10.7 and a platelet count of 134. BUN is 43 with a creatinine of 1.34 and the creatinine remains stable. Sodium level is 131. Potassium level is at 3.7. The patient remains on IV vancomycin. The patient remains on Lasix 40 mg p.o. daily. Remains on anticoagulation with Eliquis. Remains on DuoNeb nebulizers [id number] and a combination of metoprolol XL 12.5 mg p.o. daily and amiodarone 12 mg p.o. daily. On 01/18/2024, the patient is being seen for a follow-up. He remains on oxygen Airvo at 40 L with an FiO2 of 60%. Pulse ox in the order of 95%. Not much cooperative with his incentive spirometer. He remains on IV Lasix. The patient is in a negative fluid balance. The BUN is at 58 with a creatinine of 1.36 and a sodium levels at 134 and a potassium level is at 3.4. Serum bicarbonate 38. The white cell count of 5.9 with a hemoglobin 11.2 and a platelet count of 146. The patient remains on DuoNeb nebulized treatments [id number]. The patient remains on IV vancomycin. Remains on anticoagulation with Eliquis 5 mg p.o. twice a day. IV Lasix 40 mg every 12 hours. On 01/19/2024, the patient is being seen for a follow-up. Remains on high flow Airvo oxygen and the patient remains on 40 L and FiO2 of 60%. The flow has been somewhat reduced compared to yesterday. Current pulse ox is in the order of 91 to 92%. Continues to receive diuretics and the patient is on the IV Lasix. Fluid balance is -1 L over the past 24 hours as the patient receiving 40 mg IV Lasix every 12 hours. Barely using his incentive spirometer. The BUN is 64 with a creatinine of 1.37. Electrolytes are all stable. Potassium level is down to 3.3. Serum bicarb is at 36. White cell count is at 6 with a hemoglobin of 11.5 and a platelet count of 145. Vancomycin trough was high at 31.7 dropped down to 29. The patient is seen today January 20, 2024 in follow-up on the regular medical floor. He is currently sitting up in bed. Awake and alert in no acute distress. He is still requiring Airvo high flow oxygen at 40 L and 50% FiO2. Chest x-ray revealed hypoventilatory changes with similar patchy bibasilar opacities and trace left pleural effusion. Wound culture positive for MRSA and Enterococcus faecalis. White count 7.0. Hemoglobin 11.9. Platelets 167. Sodium 137. Potassium 3.2. Bicarb 34. BUN 73. Creatinine 1.37. Glucose 263. Continued on vancomycin. Remains on bronchodilators. Anticoagulated with Eliquis. Remains on IV diuretics. Currently in a -1.2 L balance. The patient is seen today January 21, 2024 in follow-up on the regular medical floor. He is awake and alert in no acute distress. He is sitting up in bed. He remains on Airvo high flow oxygen at 40 L and 50% FiO2. Maintaining O2 saturations in the low to mid 90s. He is afebrile. Hemodynamically stable. Wound culture positive for MRSA and Enterococcus faecalis. Creatinine 1.26. Random vancomycin level 19.9. He remains on vancomycin. Remains on bronchodilators. Anticoagulated with Eliquis. Remains on IV diuretics. Remains in a negative balance. The patient is seen today January 22, 2024 in follow-up on the regular medical floor. He is currently sitting up in bed. Awake and alert in no acute distress. Still requiring Airvo high flow oxygen at 40 L and 40% FiO2. He remains on DuoNeb inhalations. Antibiotics in the form of vancomycin. He is continued on IV diuretics. Anticoagulated with Eliquis. Wound culture was positive for MRSA and Enterococcus faecalis. White count 7.1. Hemoglobin 11.3. Platelets 164. Sodium 134. Potassium 3.1. Bicarb 39. BUN 79. Creatinine 1.32. Random vancomycin 22.4. The patient is seen today January 23, 2024 in follow-up on the selective care unit. He is awake and alert in no acute distress. Sitting up in bed having lunch. Denies any worsening shortness of breath, cough or congestion. He remains on Airvo high flow oxygen at 40 L and 40% FiO2. Wound culture positive for MRSA and Enterococcus faecalis. White count 7.8. Hemoglobin 11.7. Platelets 159. Sodium 135. Potassium 3.3. Bicarb 40. BUN 74. Creatinine 1.2 6. He remains on bronchodilators. Continued on IV diuretics. Antibiotics in the form of vancomycin. Anticoagulated with Eliquis. The patient is seen today January 24, 2024 in follow-up on the selective care unit. He is currently sitting up in bed. Awake and alert in no acute distress. Denies any worsening shortness of breath, cough or congestion. States he is breathing better today compared to yesterday. Maintaining good O2 saturations in the mid 90s on 4 L/min per nasal cannula. He is afebrile. Hemodynamically stable. Wound cultures positive for MRSA, Enterococcus faecalis. He remains on vancomycin. Continued on bronchodilators. Anticoagulated with Eliquis. Remains on IV diuretics. Currently in a -1.9 L balance. Creatinine 1.25. COVID-19 screen negative. The patient is seen today January 25, 2024 in follow-up on the selective care unit. He is sitting up having lunch. Awake and alert in no acute distress. Denies any worsening shortness of breath, cough or congestion. He is maintaining good O2 saturations in the 90s on 4 L/min per nasal cannula. Wound cultures are positive for MRSA and Enterococcus faecalis. He is continued on vancomycin. Continued on bronchodilators. Remains on IV diuretics. Eliquis for anticoagulation. White count 7.8. Hemoglobin 12.7. Platelets 136. Sodium 135. Potassium 4.0. Bicarb 37. BUN 81. Creatinine 1.11. Objective - Vital Signs Vital signs: Vital Signs Temp 97.7 F 01/25/24 11:56 Pulse 88 01/25/24 11:56 Resp 18 01/25/24 11:56 BP 101/60 01/25/24 11:56 Pulse Ox 95 01/25/24 11:56 FiO2 40 01/23/24 16:28 Intake & Output 01/24/24 01/25/24 01/25/24 18:59 06:59 18:59 Intake Total 1320 476 Output Total 700 550 500 Balance 620 -550 -24 Weight 68.5 kg Intake: Oral 1320 476 Output: Urine 700 550 500 Other: Voiding Method External Catheter External Catheter External Catheter - Exam GENERAL EXAM: Alert, 83-year-old male, on 4 L/min per nasal cannula, in no apparent distress. HEAD: Normocephalic. EYES: Normal reaction of pupils, equal size. NOSE: Clear with pink turbinates. THROAT: No erythema or exudates. NECK: No masses, no JVD. CHEST: No chest wall deformity. LUNGS: Equal air entry with crackles in the bilateral bases. CVS: S1 and S2 normal with no audible murmur, regular rhythm. ABDOMEN: No hepatosplenomegaly, normal bowel sounds, no guarding or rigidity. SPINE: No scoliosis or deformity. Dressing dry and intact. SKIN: No rashes CENTRAL NERVOUS SYSTEM: No focal deficits, tone is normal in all 4 extremities. EXTREMITIES: There is 1-2+ peripheral edema. No clubbing, no cyanosis. Peripheral pulses are intact. - Labs CBC & Chem 7: 01/25/24 07:30 01/25/24 07:30 Labs: Abnormal Lab Results - Last 24 Hours (Table) 01/25/24 01/25/24 Range/Units 07:30 07:30 RBC 4.04 L (4.30-5.90) m/uL Hgb 12.7 L (13.0-17.5) gm/dL MCV 100.5 H (80.0-100.0) fL Plt Count 136 L (150-450) k/uL Lymphocytes # 0.8 L (1.0-4.8) k/uL Sodium 135 L (137-145) mmol/L Chloride 91 L (98-107) mmol/L Carbon Dioxide 37 H (22-30) mmol/L BUN 81 H (9-20) mg/dL Alkaline Phosphatase 201 H (38-126) U/L Total Protein 5.8 L (6.3-8.2) g/dL Albumin 3.4 L (3.5-5.0) g/dL Microbiology - Last 24 Hours (Table) 01/13/24 10:51 Fungal Culture - Preliminary Other - Other 01/13/24 10:51 Fungal Culture - Preliminary Other - Other Assessment and Plan Assessment: Acute hypoxic respiratory failure secondary to atelectatic changes in the lung bases in addition to CHF and development of bilateral pleural effusion right more than left. Pneumonia is doubtful and the patient has been appropriately covered with vancomycin. Pulmonary embolism is doubtful as the patient is on anticoagulation with Eliquis. Ultrasound of the chest was also completed and there is no sizable pleural effusion. Responding to diuretics. Follow-up chest x-ray shows atelectatic changes, pulmonary vasculature congestion and cardiomegaly. Improved. Currently on 4 L nasal cannula. Fall with fracture to the spine, status post open treatment L2-3 for hypere xtension fracture, L1-L4 posterior lateral fusion back on December 27, 2023. Dehiscence of lumbar incisions with suspected infection the patient has undergone an incision and drainage on January 13, 2024. Lumbar wound dehiscence due to pressure ulceration, cultures were positive for MRSA and Enterococcus faecali. Currently on vancomycin. Acute kidney injury and the creatinine is stable for now and the patient is producing good urine output while being on Lasix. Chronic atrial fibrillation anticoagulated with Eliquis Chronic systolic heart failure With an ejection fraction 25 to 30% Moderate to severe pulmonary hypertension History of mild coronary artery disease COPD, currently inactive and stable History of colon cancer, to be sched COPD ed for colectomy once recovered History of CVA/TIA History of hearing disorder Hyperlipidemia Former smoker Poor functional performance based on the above-mentioned multiple comorbidities, and the patient has generalized motor weakness in all 4 extremities Plan: The patient was seen and evaluated Labs and medications reviewed Improved and on 4 L nasal cannula Titrate down the FiO2 as tolerated Plan is for 6 weeks of vancomycin Plan is to return to [facility] at discharge I have personally seen and examined the patient, performed the documentation and the assessment and plan as written. Number of minutes spent on the visit: 10 Dictation was produced using [employer] dictation software. Please excuse any grammatical, word or spelling errors.
[2024-01-25 18:51] LABS: African American GFR (CKD) 69 (>60 ml/min/1.73 sqM); Non-African American GFR(CKD) 60 (>60 ml/min/1.73 sqM)
[2024-01-25] MEDS: VANCOMYCIN TROUGH DUE 1 EACH MISC MISCELLANE ONE (19:52)
[2024-01-26 04:21] VITALS: RESP 16
[2024-01-26] MEDS: VANCOMYCIN 1,250 MG in SODIUM CHLORIDE 0.9% 250 ML IVPB SCH (06:22)
--- NOTE | 2024-01-26 09:36 | P.PN ---
Subjective Progress Note Date: 01/26/24 Nick Vora, is an 83-year-old male currently in rehab at [facility] who was sent to [facility] emergency room, for worsening shortness of breath decreased O2 saturation, hypotension, generalized weakness and erythema skin breakdown or from back surgical wound. He was evaluated in the emergency room vital examination on presentation revealed a temperature of 98.1 pulse 101 respiration 19 blood pressure 116/59 pulse ox 90% on 5 L nasal cannula Laboratory data revealed a white blood count of 8.9 hemoglobin 11.6 platelet count 138 BUN 29 creatinine 0.97 troponin 0.012 BNP 1470 Testing in the emergency room revealed EKG revealed sinus rhythm with first- degree AV block, CT scan of the lumbar spine revealed evidence of recent fusion L1-L5. Chest x-ray revealed findings suggestive of congestive heart failure, infiltrates of other etiology not excluded. Patient was admitted to medical floor for further evaluation and treatment Past medical history is significant for history of hypertension, history of hyperlipidemia, history of paroxysmal atrial fibrillation, history of benign prostatic hypertrophy, history of decreased hearing, history of invasive colonic adenocarcinoma patient will need surgical intervention in the near future after he is medically stable, history of recent back surgery with lumbar fusion. On review of systems patient is alert and oriented x 3 in no apparent distress there is no fever or chills no headache or dizziness no chest pain he has some s hortness of breath with any activity there is no cough no nausea or vomiting no abdominal pain no diarrhea no constipation no blood in the stools no burning with urination no frequency or urgency and no hematuria. On 01/13/2024, patient was seen and examined on the medical floor he is alert and oriented in no apparent distress, he underwent lumbar wounds I&D today with Dr. Ashton, there is no fever or chills no headache or dizziness no chest pain no shortness of breath no cough no nausea or vomiting no abdominal pain no diarrhea and no urinary symptoms white blood count is 6.3 hemoglobin 11.3 platelet count 97 BUN 31 creatinine 1.03 On 01/14/2024 patient's alert and oriented. Increased oxygen demands. Will consult pulmonary services infectious disease, cardiology, orthopedic services and pulmonary services have all been consulted. Patient remains on Maxipime and Comycin. Patient has been transitioned to p.o. Lasix per cardiology. Current vital signs temp 98.0, heart rate 91, respiratory rate 16, blood pressure 92/54 with a pulse ox of 94% on 13 L high flow On 01/15/2024 patient is alert and oriented x 3. Cultures coming back presumptive MRSA. Patient remains on vancomycin and cefepime. Infectious disease, pulmonary, cardiology and orthopedic services are following. Current vital signs temp 97.3, heart rate 85, respiratory rate 20, blood pressure 132/57 with a pulse ox of 92% on 13 L high flow. Patient did receive IV Lasix yesterday. Patient denies chest pain or shortness of breath. Patient denies nausea vomiting or diarrhea. Patient denies any urinary burning or frequency. On 01/16/2024 patient was seen and examined on the medical floor he is alert and oriented x 3 in no apparent distress there is no fever or chills no headache or dizziness no chest pain no shortness of breath no cough no nausea or vomiting no abdominal pain no diarrhea, he is complaining of constipation no blood in the stools no burning with urination no frequency or urgency and no hematuria. On 01/17/2024 patient is alert and oriented x 3. Patient remains on IV vancomycin. Current vital signs temp 97.6, heart 72, respiratory rate 18, blood pressure 98/52 with a pulse ox of 91% on 9 L. Patient denies chest pain or shortness of breath. Patient denies nausea vomiting or diarrhea. Patient denies any urinary burning or frequency. On 01/18/2024 patient was seen and examined on the medical floor, he is alert and oriented x 3 in no apparent distress he is maintained on Airvo FiO2 62 % temperature is 98 pulse 91 respiration 18 blood pressure 108/56 pulse ox 94% he is complaining of generalized weakness and constipation, otherwise he denies any complaints there is no fever or chills no headache or dizziness no chest pain no shortness of breath no cough no nausea or vomiting no abdominal pain no diarrhea and no urinary symptoms, white blood count is 5.9 hemoglobin 11.2 platelet count 146, sodium 134 potassium 3.4 chloride 93 BUN 58 creatinine 1.36 he remains on IV antibiotic vancomycin. On 01/19/2024 patient is alert and oriented 3 resting comfortably in bed. Patient remains on airvo for oxygen support.Patient remains on IV vancomycin. Creatinine 1.37 bun 64 Potassium 3.3 will replace per protocol. Patient denies chest pain or shortness breath. Patient denies nausea vomiting or diarrhea. Patient denies any urinary burning or frequency. On 01/20/2024 patient was seen and examined on the medical floor he is alert and oriented x 3 in no apparent distress, he is still maintained on high flow oxygen via Airvo, there is no fever or chills no headache or dizziness no chest pain no shortness of breath no cough no nausea or vomiting no abdominal pain no diarrhea, he is complaining of constipation no blood in the stools no burning with urination no frequency or urgency and no hematuria. pulmonary consult following. On 01/21/2024 patient is alert and oriented x 3 patient remains on high flow oxygen via Airvo. Patient denies chest pain or shortness of breath. Patient denies nausea vomiting or diarrhea. Patient denies any urinary burning or frequency. Current vital signs temp 98.2, heart rate 104, respiratory rate 22, blood pressure 116/58 with a pulse ox of 92% on Airvo 62%. Creatinine 1.26. Patient remains on IV Vanco. Patient denies chest pain or shortness of breath. Patient denies nausea vomiting or diarrhea. Patient denies any urinary burning or frequency On 01/22/2024 patient is alert and oriented x 3. Current vital signs temp 97.0, heart rate 95, respiratory rate 18, blood pressure 108/55 with a pulse ox of 96% on Airvo 40%. Patient denies chest pain or shortness of breath. Patient denies nausea vomiting or diarrhea. Patient denies any urinary burning or frequency. Potassium low at 3.1 will replace per protocol. Patient remains on IV vancomycin. On 01/23/2024 patient was seen and examined on the medical floor he is alert and oriented x 3 in no apparent distress there is no fever or chills no headache or dizziness no chest pain he is still having shortness of breath with any activity, he is maintained on high flow oxygen via Airvo, he has occasional cough no palpitation, no nausea or vomiting no abdominal pain no diarrhea no urinary symptoms On 01/24/2024 patient is alert and oriented x 3. Patient is making improvement currently down to 4 L nasal cannula. Patient remains on IV vancomycin. COVID- 19 was negative. Patient denies chest pain or shortness of breath. Patient denies nausea vomiting or diarrhea. Patient denies any urinary burning or frequency. PT OT services are consulted. Discharge planning back to [facility] when medically stable. On 01/25/2024 patient was seen and examined on the medical floor he is alert and oriented x 3 in no apparent distress there is no fever or chills no headache or dizziness no chest pain no shortness of breath no cough no nausea or vomiting no diarrhea no blood in the stools no burning with urination no frequency or urgency and no hematuria. Oxygen requirements are down to 4 L/min, will continue to monitor if improving possible transfer to [facility] on Saturday. On 01/26/2024 patient is alert and oriented x 3. Patient continues to improve gradually oxygen down to 3 L. Patient denies chest pain or shortness of breath. Patient denies nausea vomiting or diarrhea. Per ID patient will need 6 weeks of IV vancomycin discharge planning back to [facility] facility [facility]. Patient denies chest pain or shortness of breath. Patient denies nausea vomiting or diarrhea. Patient denies any urinary burning or frequency Objective - Vital Signs Vital signs: Vital Signs Temp 97.6 F 01/26/24 04:00 Pulse 68 01/26/24 08:31 Resp 16 01/26/24 04:00 BP 95/50 01/26/24 04:00 Pulse Ox 93 L 01/26/24 04:00 FiO2 40 01/23/24 16:28 Intake & Output 01/25/24 01/26/24 01/26/24 18:59 06:59 18:59 Intake Total 726 236 Output Total 750 1100 150 Balance -24 -1100 86 Weight 77 kg Intake: Oral 726 236 Output: Urine 750 1100 150 Other: Voiding Method External Catheter External Catheter - Exam In general patient is alert and oriented x 3 in no distress HEENT head normocephalic and atraumatic Neck is supple no JVD no goiter no lymphadenopathy no carotid bruit Chest examination reveals a scattered crackles bilaterally no wheezing Cardiac exam reveals regular heart sounds S1 and S2 no gallops no murmurs Abdomen is soft nontender no organomegaly with normal bowel sounds Extremity exam reveals no edema no cyanosis or clubbing Back exam reveals mild erythema around the surgical wound with mild tenderness Neurological examination reveals generalized weakness with no gross focal defi cits - Labs CBC & Chem 7: 01/25/24 07:30 01/25/24 18:12 Assessment and Plan Plan: Acute exacerbation of systolic congestive heart failure Cardiomyopathy with ejection fraction 25 to 30% on echocardiogram done on O ctober 09/07/2023 Worsening shortness of breath and decreased O2 saturation likely related to congestive heart failure Mild erythema and tenderness in the lumbar surgical wound site with wound infection cultures currently growing presumptive MRSA Underlying history of paroxysmal atrial fibrillation Underlying history of hypertension Underlying history of hyperlipidemia Underlying history of colon adenocarcinoma patient will need surgery when medically stable Physical debility Moderate to severe protein calorie malnutrition At this time patient was seen and examined Home medications reviewed and reordered Consultation for infectious disease, cardiology, and orthopedic surgery initiated For DVT prophylaxis, patient is on Eliquis Prognosis is guarded will follow closely
--- NOTE | 2024-01-26 15:20 | P.PN ---
Subjective Progress Note Date: 01/26/24 84-year-old male patient admitted back to the hospital on 01/12/2024 from [facility] following a distance of a surgical incision to the lumbar spine. The wound edges were not approximated and pulling away from the incision. There was also mild to moderate amount of serous drainage identified for that reason the patient was brought into the hospital. The patient is status post open reduction to fixation of an L2-L3 with minimal invasive stabilization of L1 S1 and L2 L4 laminectomy. The patient underwent incision and drainage and the patient is currently on a combination of cefepime and vancomycin. Cultures are still negative for now. The patient is hemodynamically stable. During this current admission, the patient had progressive worsening in his oxygen requirements and the patient is currently on 11 L/min nasal cannula and for that reason the pulmonary cavitation was requested. I ordered a stat chest x-ray and this was completed and the patient has interstitial edema and bilateral pleural effusion right more than left. He has a weak cough. No reported aspiration. The patient has pulm vessel congestion/CHF. The patient is currently on oral Lasix. Blood work shows a white cell count of 7.9 with a hemoglobin 10.6 and a platelet count of 114. BUN 32 with a creatinine of 1.3 current serum bicarb is at 37 and sodium levels at 136. Procalcitonin level is at 0.17. He has a Mulligan catheter in place and is producing adequate amount of urine output. Fluid balance has been -2 L over the past 24 hours. On 01/15/2024, the patient is stableWithout any interval worsening shortness of breath. The patient is currently on 10 L of oxygen by nasal cannula with a pulse ox of 95%. Using incentive spirometer. He was given Lasix yesterday and the patient produced adequate urine output. He did end up pulling his Mulligan catheter and he currently has a condom cath and will monitoring his renal function and his urine output. Creatinine from today is at 1.21. No other complaints otherwise for now. He remains on IV vancomycin as the patient's wound culture was positive for MRSA. On 01/16/2024, the patient is being seen for a follow-up. The patient is calm and comfortable. There has been interval improvement the patient's oxygenation and the patient is currently down to 7 L of oxygen by nasal cannula. He is using incentive spirometer. He was given Lasix yesterday and the net fluid balance is -1.5 L over the past 24 hours. Creatinine stable at 1.24 with a BUN of 38. Serum bicarb is at 35. Sodium levels at 133. WBC count is 5.9 with a hemoglobin of 11.3. The patient remains on vancomycin regarding wound infection. No other new complaints otherwise for now. Remains in atrial fibrillation. Remains on anticoagulation with Eliquis. Remains on metoprolol 12.5 mg p.o. daily. Rest of the medications are essentially unchanged. Follow- up chest x-ray from today continues to show some atelectatic changes in lung bases bilaterally. Findings are essentially stable On 01/17/2024, the patient is being seen for a follow-up. The patient is currently hypoxic on 10 L of oxygen by nasal cannula. Pulse ox in the mid 80s. Based on that, the patient was placed on Airvo at 40 L with an FiO2 of 60%. A repeat chest x-ray was also requested and this was reviewed. The chest x-ray from today showing stable cardiomegaly, pulm vessel congestion, small bilateral pleural effusions and overall chest x-ray finding is consistent with CHF. There is some atelectatic changes in the lung bases bilaterally. The white cell count is 6.2 with a heme of 10.7 and a platelet count of 134. BUN is 43 with a creatinine of 1.34 and the creatinine remains stable. Sodium level is 131. Potassium level is at 3.7. The patient remains on IV vancomycin. The patient remains on Lasix 40 mg p.o. daily. Remains on anticoagulation with Eliquis. Remains on DuoNeb nebulizers [id number] and a combination of metoprolol XL 12.5 mg p.o. daily and amiodarone 12 mg p.o. daily. On 01/18/2024, the patient is being seen for a follow-up. He remains on oxygen Airvo at 40 L with an FiO2 of 60%. Pulse ox in the order of 95%. Not much cooperative with his incentive spirometer. He remains on IV Lasix. The patient is in a negative fluid balance. The BUN is at 58 with a creatinine of 1.36 and a sodium levels at 134 and a potassium level is at 3.4. Serum bicarbonate 38. The white cell count of 5.9 with a hemoglobin 11.2 and a platelet count of 146. The patient remains on DuoNeb nebulized treatments [id number]. The patient remains on IV vancomycin. Remains on anticoagulation with Eliquis 5 mg p.o. twice a day. IV Lasix 40 mg every 12 hours. On 01/19/2024, the patient is being seen for a follow-up. Remains on high flow Airvo oxygen and the patient remains on 40 L and FiO2 of 60%. The flow has been somewhat reduced compared to yesterday. Current pulse ox is in the order of 91 to 92%. Continues to receive diuretics and the patient is on the IV Lasix. Fluid balance is -1 L over the past 24 hours as the patient receiving 40 mg IV Lasix every 12 hours. Barely using his incentive spirometer. The BUN is 64 with a creatinine of 1.37. Electrolytes are all stable. Potassium level is down to 3.3. Serum bicarb is at 36. White cell count is at 6 with a hemoglobin of 11.5 and a platelet count of 145. Vancomycin trough was high at 31.7 dropped down to 29. The patient is seen today January 20, 2024 in follow-up on the regular medical floor. He is currently sitting up in bed. Awake and alert in no acute distress. He is still requiring Airvo high flow oxygen at 40 L and 50% FiO2. Chest x-ray revealed hypoventilatory changes with similar patchy bibasilar opacities and trace left pleural effusion. Wound culture positive for MRSA and Enterococcus faecalis. White count 7.0. Hemoglobin 11.9. Platelets 167. Sodium 137. Potassium 3.2. Bicarb 34. BUN 73. Creatinine 1.37. Glucose 263. Continued on vancomycin. Remains on bronchodilators. Anticoagulated with Eliquis. Remains on IV diuretics. Currently in a -1.2 L balance. The patient is seen today January 21, 2024 in follow-up on the regular medical floor. He is awake and alert in no acute distress. He is sitting up in bed. He remains on Airvo high flow oxygen at 40 L and 50% FiO2. Maintaining O2 saturations in the low to mid 90s. He is afebrile. Hemodynamically stable. Wound culture positive for MRSA and Enterococcus faecalis. Creatinine 1.26. Random vancomycin level 19.9. He remains on vancomycin. Remains on bronchodilators. Anticoagulated with Eliquis. Remains on IV diuretics. Remains in a negative balance. The patient is seen today January 22, 2024 in follow-up on the regular medical floor. He is currently sitting up in bed. Awake and alert in no acute distress. Still requiring Airvo high flow oxygen at 40 L and 40% FiO2. He remains on DuoNeb inhalations. Antibiotics in the form of vancomycin. He is continued on IV diuretics. Anticoagulated with Eliquis. Wound culture was positive for MRSA and Enterococcus faecalis. White count 7.1. Hemoglobin 11.3. Platelets 164. Sodium 134. Potassium 3.1. Bicarb 39. BUN 79. Creatinine 1.32. Random vancomycin 22.4. The patient is seen today January 23, 2024 in follow-up on the selective care unit. He is awake and alert in no acute distress. Sitting up in bed having lunch. Denies any worsening shortness of breath, cough or congestion. He remains on Airvo high flow oxygen at 40 L and 40% FiO2. Wound culture positive for MRSA and Enterococcus faecalis. White count 7.8. Hemoglobin 11.7. Platelets 159. Sodium 135. Potassium 3.3. Bicarb 40. BUN 74. Creatinine 1.2 6. He remains on bronchodilators. Continued on IV diuretics. Antibiotics in the form of vancomycin. Anticoagulated with Eliquis. The patient is seen today January 24, 2024 in follow-up on the selective care unit. He is currently sitting up in bed. Awake and alert in no acute distress. Denies any worsening shortness of breath, cough or congestion. States he is breathing better today compared to yesterday. Maintaining good O2 saturations in the mid 90s on 4 L/min per nasal cannula. He is afebrile. Hemodynamically stable. Wound cultures positive for MRSA, Enterococcus faecalis. He remains on vancomycin. Continued on bronchodilators. Anticoagulated with Eliquis. Remains on IV diuretics. Currently in a -1.9 L balance. Creatinine 1.25. COVID-19 screen negative. The patient is seen today January 25, 2024 in follow-up on the selective care unit. He is sitting up having lunch. Awake and alert in no acute distress. Denies any worsening shortness of breath, cough or congestion. He is maintaining good O2 saturations in the 90s on 4 L/min per nasal cannula. Wound cultures are positive for MRSA and Enterococcus faecalis. He is continued on vancomycin. Continued on bronchodilators. Remains on IV diuretics. Eliquis for anticoagulation. White count 7.8. Hemoglobin 12.7. Platelets 136. Sodium 135. Potassium 4.0. Bicarb 37. BUN 81. Creatinine 1.11. The patient is seen today January 26, 2024 in follow-up on the selective care unit. He is currently resting in bed. Awake and alert in no acute distress. Denies any worsening shortness of breath, cough or congestion. Maintaining good O2 saturation in the 90s on 4 L/min per nasal cannula. He is still having some back discomfort. He remains on vancomycin. Anticoagulated with Eliquis. Continued on IV diuretics. Continued on bronchodilators. Objective - Vital Signs Vital signs: Vital Signs Temp 98.2 F 01/26/24 10:45 Pulse 68 01/26/24 12:13 Resp 16 01/26/24 10:45 BP 103/59 01/26/24 10:45 Pulse Ox 95 01/26/24 10:45 FiO2 40 01/23/24 16:28 Intake & Output 01/25/24 01/26/24 01/26/24 18:59 06:59 18:59 Intake Total 726 354 Output Total 750 1100 150 Balance -24 -1100 204 Weight 77 kg Intake: Oral 726 354 Output: Urine 750 1100 150 Other: Voiding Method External Catheter External Catheter - Exam GENERAL EXAM: Alert, 83-year-old male, resting comfortably in bed, on 4 L/min per nasal cannula, in no apparent distress. HEAD: Normocephalic. EYES: Normal reaction of pupils, equal size. NOSE: Clear with pink turbinates. THROAT: No erythema or exudates. NECK: No masses, no JVD. CHEST: No chest wall deformity. LUNGS: Equal air entry with crackles in the bilateral bases. CVS: S1 and S2 normal with no audible murmur, regular rhythm. ABDOMEN: No hepatosplenomegaly, normal bowel sounds, no guarding or rigidity. SPINE: No scoliosis or deformity. Dressing dry and intact. SKIN: No rashes CENTRAL NERVOUS SYSTEM: No focal deficits, tone is normal in all 4 extremities. EXTREMITIES: There is 1-2+ peripheral edema. No clubbing, no cyanosis. Peripheral pulses are intact. - Labs CBC & Chem 7: 01/25/24 07:30 01/25/24 18:12 Assessment and Plan Assessment: Acute hypoxic respiratory failure secondary to atelectatic changes in the lung bases in addition to CHF and development of bilateral pleural effusion right more than left. Pneumonia is doubtful and the patient has been appropriately covered with vancomycin. Pulmonary embolism is doubtful as the patient is on anticoagulation with Eliquis. Ultrasound of the chest was also completed and there is no sizable pleural effusion. Responding to diuretics. Follow-up chest x-ray shows atelectatic changes, pulmonary vasculature congestion and cardiomegaly. Improved. Currently on 4 L nasal cannula. Fall with fracture to the spine, status post open treatment L2-3 for hyperextension fracture, L1-L4 posterior lateral fusion back on December 27, 2023. Dehiscence of lumbar incisions with suspected infection the patient has undergone an incision and drainage on January 13, 2024. Lumbar wound dehiscence due to pressure ulceration, cultures were positive for MRSA and Enterococcus faecali. Currently on vancomycin. Acute kidney injury and the creatinine is stable for now and the patient is producing good urine output while being on Lasix. Chronic atrial fibrillation anticoagulated with Eliquis Chronic systolic heart failure With an ejection fraction 25 to 30% Moderate to severe pulmonary hypertension History of mild coronary artery disease COPD, currently inactive and stable [facility] History of CVA/TIA History of hearing disorder Hyperlipidemia Former smoker Poor functional performance based on the above-mentioned multiple comorbidities, and the patient has generalized motor weakness in all 4 extremities Plan: The patient was seen and evaluated Medications reviewed Stable on 4 L nasal cannula Plan is for 6 weeks of vancomycin Plan is to return to [facility] at discharge I have personally seen and examined the patient, performed the documentation and the assessment and plan as written. Number of minutes spent on the visit: 10 Dictation was produced using [employer] dictation software. Please excuse any grammatical, word or spelling errors.
[2024-01-27 07:43] LABS: Basophils % (A) 1 %; Eosinophils # (A) 0.3 k/uL (0-0.7); Eosinophils % (A) 4 %; HCT 36.1 % (39.0-53.0); HGB 11.4 gm/dL (13.0-17.5); Hypochromasia Marked; Lymphocytes # (A) 0.8 k/uL (1.0-4.8); Lymphocytes % (A) 11 %; MCH 31.9 pg (25.0-35.0); MCHC 31.5 g/dL (31.0-37.0); MCV 101.3 fL (80.0-100.0); Macrocytosis Slight; Monocytes # (A) 0.4 k/uL (0-1.0); Monocytes % (A) 6 %; Neutrophils # (A) 5.4 k/uL (1.3-7.7); Neutrophils % (A) 77 %; Platelet Count 141 k/uL (150-450); RBC 3.56 m/uL (4.30-5.90); RDW 14.6 % (11.5-15.5); WBC 7.1 k/uL (3.8-10.6)
[2024-01-27 07:59] LABS: ALT 17 U/L (4-49); AST 32 U/L (17-59); African American GFR (CKD) 71 (>60 ml/min/1.73 sqM); Alkaline Phosphatase 195 U/L (38-126); Blood Urea Nitrogen 82 mg/dL (9-20); Calcium 8.4 mg/dL (8.4-10.2); Chloride 93 mmol/L (98-107); Glucose 87 mg/dL (74-99); Non-African American GFR(CKD) 62 (>60 ml/min/1.73 sqM); Potassium 3.6 mmol/L (3.5-5.1); Sodium 136 mmol/L (137-145); Total Bilirubin 0.6 mg/dL (0.2-1.3); Total Protein 5.2 g/dL (6.3-8.2)
[2024-01-27 08:07] LABS: Anion Gap 9 mmol/L; Carbon Dioxide 34 mmol/L (22-30)
--- NOTE | 2024-01-27 08:41 | P.PN ---
Subjective Progress Note Date: 01/26/24 Principal diagnosis: Reason for follow-up is possible lumbar surgical site infection Patient is a 83-year-old male with a past medical history significant for CVA TIA hypertension hyperlipidemia atrial fibrillation prostate disorder patient is status post lumbar fusion surgery completed on 12/27/2023 has been brought back to the hospital concerning for drainage from his lumbar incision and concerning for surgical site infection.Patient was taken to the OR morning of 01/13/2024 and is status post lumbar wound I&D and cultures. On today's evaluation that is 01/26/2024, Patient is afebrile patient is currently on 4 L current oxygen and denies having any shortness of breath, the patient denies any chest pain or cough, the patient denies any nausea vomiting did not have any abdominal pain and no diarrhea or any worsening back pain. Patient did have a creatinine of 1.14, no CBC was done today Objective - Vital Signs Vital signs: Vital Signs Temp 97.6 F 01/26/24 04:00 Pulse 68 01/26/24 08:31 Resp 16 01/26/24 04:00 BP 95/50 01/26/24 04:00 Pulse Ox 93 L 01/26/24 04:00 FiO2 40 01/23/24 16:28 Intake & Output 01/25/24 01/26/24 01/26/24 18:59 06:59 18:59 Intake Total 726 236 Output Total 750 1100 150 Balance -24 -1100 86 Weight 77 kg Intake: Oral 726 236 Output: Urine 750 1100 150 Other: Voiding Method External Catheter External Catheter - Exam GENERAL DESCRIPTION: An elderly male lying in bed in no distress RESPIRATORY SYSTEM: Unlabored breathing , decreased breath sounds at bases HEART: S1 S2 regular rate and rhythm , ABDOMEN: Soft , no tenderness EXTREMITIES: No edema feet - Labs CBC & Chem 7: 01/27/24 06:54 01/27/24 06:54 Assessment and Plan (1) Wound infection after surgery Current Visit: Yes Status: Acute Code(s): T81.49XA - INFECTION FOLLOWING A PROCEDURE, OTHER SURGICAL SITE, INIT SNOMED Code(s): 09663903 (2) Penicillin allergy Current Visit: No Status: Acute Code(s): Z88.0 - ALLERGY STATUS TO PENICILLIN SNOMED Code(s): 41557878 Plan: 1patient presented to hospital with generalized weakness also complaining of discomfort to the lumbar surgical site with minimal drainage concerning for possible lumbar surgical site infection superficial versus deep and will need to cover for the resistant gram-positive as well as gram-negative pathogen. 2patient is status post I&D of his lumbar incision and cultures which are currently growing MRSA as well as group D Enterococcus which is sensitive to penicillin as well as vancomycin 3patient did have improvement in the kidney function with a creatinine down to 1.11 and his white count has been normal no CBC was done today 4- patient is receiving vancomycin pharmacy to dose, dose to be monitored closely. 5plan is for total of 6-week course of antibiotics including days of ant ibiotics he has received here and close outpatient follow-up Dictation was produced using [employer] dictation software. please excuse any grammatical, word or spelling errors. Time with Patient: Less than 30
--- NOTE | 2024-01-27 09:13 | P.PN ---
Subjective Progress Note Date: 01/27/24 iNck Vora, is an 83-year-old male currently in rehab at [facility] who was sent to [facility] emergency room, for worsening shortness of breath decreased O2 saturation, hypotension, generalized weakness and erythema skin breakdown or from back surgical wound. He was evaluated in the emergency room vital examination on presentation revealed a temperature of 98.1 pulse 101 respiration 19 blood pressure 116/59 pulse ox 90% on 5 L nasal cannula Laboratory data revealed a white blood count of 8.9 hemoglobin 11.6 platelet count 138 BUN 29 creatinine 0.97 troponin 0.012 BNP 1470 Testing in the emergency room revealed EKG revealed sinus rhythm with first- degree AV block, CT scan of the lumbar spine revealed evidence of recent fusion L1-L5. Chest x-ray revealed findings suggestive of congestive heart failure, infiltrates of other etiology not excluded. Patient was admitted to medical floor for further evaluation and treatment Past medical history is significant for history of hypertension, history of hyperlipidemia, history of paroxysmal atrial fibrillation, history of benign prostatic hypertrophy, history of decreased hearing, history of invasive colonic adenocarcinoma patient will need surgical intervention in the near future after he is medically stable, history of recent back surgery with lumbar fusion. On review of systems patient is alert and oriented x 3 in no apparent distress there is no fever or chills no headache or dizziness no chest pain he has some s hortness of breath with any activity there is no cough no nausea or vomiting no abdominal pain no diarrhea no constipation no blood in the stools no burning with urination no frequency or urgency and no hematuria. On 01/13/2024, patient was seen and examined on the medical floor he is alert and oriented in no apparent distress, he underwent lumbar wounds I&D today with Dr. Ashton, there is no fever or chills no headache or dizziness no chest pain no shortness of breath no cough no nausea or vomiting no abdominal pain no diarrhea and no urinary symptoms white blood count is 6.3 hemoglobin 11.3 platelet count 97 BUN 31 creatinine 1.03 On 01/14/2024 patient's alert and oriented. Increased oxygen demands. Will consult pulmonary services infectious disease, cardiology, orthopedic services and pulmonary services have all been consulted. Patient remains on Maxipime and Comycin. Patient has been transitioned to p.o. Lasix per cardiology. Current vital signs temp 98.0, heart rate 91, respiratory rate 16, blood pressure 92/54 with a pulse ox of 94% on 13 L high flow On 01/15/2024 patient is alert and oriented x 3. Cultures coming back presumptive MRSA. Patient remains on vancomycin and cefepime. Infectious disease, pulmonary, cardiology and orthopedic services are following. Current vital signs temp 97.3, heart rate 85, respiratory rate 20, blood pressure 132/57 with a pulse ox of 92% on 13 L high flow. Patient did receive IV Lasix yesterday. Patient denies chest pain or shortness of breath. Patient denies nausea vomiting or diarrhea. Patient denies any urinary burning or frequency. On 01/16/2024 patient was seen and examined on the medical floor he is alert and oriented x 3 in no apparent distress there is no fever or chills no headache or dizziness no chest pain no shortness of breath no cough no nausea or vomiting no abdominal pain no diarrhea, he is complaining of constipation no blood in the stools no burning with urination no frequency or urgency and no hematuria. On 01/17/2024 patient is alert and oriented x 3. Patient remains on IV vancomycin. Current vital signs temp 97.6, heart 72, respiratory rate 18, blood pressure 98/52 with a pulse ox of 91% on 9 L. Patient denies chest pain or shortness of breath. Patient denies nausea vomiting or diarrhea. Patient denies any urinary burning or frequency. On 01/18/2024 patient was seen and examined on the medical floor, he is alert and oriented x 3 in no apparent distress he is maintained on Airvo FiO2 62 % temperature is 98 pulse 91 respiration 18 blood pressure 108/56 pulse ox 94% he is complaining of generalized weakness and constipation, otherwise he denies any complaints there is no fever or chills no headache or dizziness no chest pain no shortness of breath no cough no nausea or vomiting no abdominal pain no diarrhea and no urinary symptoms, white blood count is 5.9 hemoglobin 11.2 platelet count 146, sodium 134 potassium 3.4 chloride 93 BUN 58 creatinine 1.36 he remains on IV antibiotic vancomycin. On 01/19/2024 patient is alert and oriented 3 resting comfortably in bed. Patient remains on airvo for oxygen support.Patient remains on IV vancomycin. Creatinine 1.37 bun 64 Potassium 3.3 will replace per protocol. Patient denies chest pain or shortness breath. Patient denies nausea vomiting or diarrhea. Patient denies any urinary burning or frequency. On 01/20/2024 patient was seen and examined on the medical floor he is alert and oriented x 3 in no apparent distress, he is still maintained on high flow oxygen via Airvo, there is no fever or chills no headache or dizziness no chest pain no shortness of breath no cough no nausea or vomiting no abdominal pain no diarrhea, he is complaining of constipation no blood in the stools no burning with urination no frequency or urgency and no hematuria. pulmonary consult following. On 01/21/2024 patient is alert and oriented x 3 patient remains on high flow oxygen via Airvo. Patient denies chest pain or shortness of breath. Patient denies nausea vomiting or diarrhea. Patient denies any urinary burning or frequency. Current vital signs temp 98.2, heart rate 104, respiratory rate 22, blood pressure 116/58 with a pulse ox of 92% on Airvo 62%. Creatinine 1.26. Patient remains on IV Vanco. Patient denies chest pain or shortness of breath. Patient denies nausea vomiting or diarrhea. Patient denies any urinary burning or frequency On 01/22/2024 patient is alert and oriented x 3. Current vital signs temp 97.0, heart rate 95, respiratory rate 18, blood pressure 108/55 with a pulse ox of 96% on Airvo 40%. Patient denies chest pain or shortness of breath. Patient denies nausea vomiting or diarrhea. Patient denies any urinary burning or frequency. Potassium low at 3.1 will replace per protocol. Patient remains on IV vancomycin. On 01/23/2024 patient was seen and examined on the medical floor he is alert and oriented x 3 in no apparent distress there is no fever or chills no headache or dizziness no chest pain he is still having shortness of breath with any activity, he is maintained on high flow oxygen via Airvo, he has occasional cough no palpitation, no nausea or vomiting no abdominal pain no diarrhea no urinary symptoms On 01/24/2024 patient is alert and oriented x 3. Patient is making improvement currently down to 4 L nasal cannula. Patient remains on IV vancomycin. COVID- 19 was negative. Patient denies chest pain or shortness of breath. Patient denies nausea vomiting or diarrhea. Patient denies any urinary burning or frequency. PT OT services are consulted. Discharge planning back to [facility] when medically stable. On 01/25/2024 patient was seen and examined on the medical floor he is alert and oriented x 3 in no apparent distress there is no fever or chills no headache or dizziness no chest pain no shortness of breath no cough no nausea or vomiting no diarrhea no blood in the stools no burning with urination no frequency or urgency and no hematuria. Oxygen requirements are down to 4 L/min, will continue to monitor if improving possible transfer to [facility] on Saturday. On 01/26/2024 patient is alert and oriented x 3. Patient continues to improve gradually oxygen down to 3 L. Patient denies chest pain or shortness of breath. Patient denies nausea vomiting or diarrhea. Per ID patient will need 6 weeks of IV vancomycin discharge planning back to [facility] facility [facility]. Patient denies chest pain or shortness of breath. Patient denies nausea vomiting or diarrhea. Patient denies any urinary burning or frequency. On 01/27/2024 patient was seen and examined on the medical floor, he is alert and oriented x 3 in no apparent distress, there is no fever or chills no headache or dizziness no chest pain no shortness of breath no cough, no nausea or vomiting no abdominal pain no diarrhea and no urinary symptoms, temperature 97.8 pulse 83 respiration 16 blood pressure 100/54 pulse ox 95% on 4 L nasal cannula, white blood count 7.1 hemoglobin 11.4 platelet count 141 BUN 82 creatinine 1.1. Per recommendation of infectious disease, patient will need a total of 6 weeks of IV vancomycin, consultation for PICC line placement was initiated. Plan is to return to [facility] when ready. Objective - Vital Signs Vital signs: Vital Signs Temp 97.8 F 01/27/24 03:04 Pulse 66 01/27/24 08:15 Resp 16 01/27/24 03:04 BP 100/54 01/27/24 03:04 Pulse Ox 95 01/27/24 03:04 FiO2 40 01/23/24 16:28 Intake & Output 01/26/24 01/27/24 01/27/24 18:59 06:59 18:59 Intake Total 472 Output Total 750 850 Balance -278 -850 Weight 79 kg Intake: Oral 472 Output: Urine 750 850 Other: Voiding Method External Catheter External Catheter # Bowel Movements 1 - Exam In general patient is alert and oriented x 3 in no distress HEENT head normocephalic and atraumatic Neck is supple no JVD no goiter no lymphadenopathy no carotid bruit Chest examination reveals a scattered crackles bilaterally no wheezing Cardiac exam reveals regular heart sounds S1 and S2 no gallops no murmurs Abdomen is soft nontender no organomegaly with normal bowel sounds Extremity exam reveals no edema no cyanosis or clubbing Back exam reveals mild erythema around the surgical wound with mild tenderness Neurological examination reveals generalized weakness with no gross focal deficits - Labs CBC & Chem 7: 01/27/24 06:54 01/27/24 06:54 Labs: Abnormal Lab Results - Last 24 Hours (Table) 01/27/24 01/27/24 Range/Units 06:54 06:54 RBC 3.56 L (4.30-5.90) m/uL Hgb 11.4 L (13.0-17.5) gm/dL Hct 36.1 L (39.0-53.0) % MCV 101.3 H (80.0-100.0) fL Plt Count 141 L (150-450) k/uL Lymphocytes # 0.8 L (1.0-4.8) k/uL Sodium 136 L (137-145) mmol/L Chloride 93 L (98-107) mmol/L Carbon Dioxide 34 H (22-30) mmol/L BUN 82 H (9-20) mg/dL Alkaline Phosphatase 195 H (38-126) U/L Total Protein 5.2 L (6.3-8.2) g/dL Albumin 3.0 L (3.5-5.0) g/dL Assessment and Plan Plan: Acute exacerbation of systolic congestive heart failure Cardiomyopathy with ejection fraction 25 to 30% on echocardiogram done on 09/07/2023 Worsening shortness of breath and decreased O2 saturation likely related to congestive heart failure Mild erythema and tenderness in the lumbar surgical wound site with wound infection cultures currently growing presumptive MRSA Underlying history of paroxysmal atrial fibrillation Underlying history of hypertension Underlying history of hyperlipidemia Underlying history of colon adenocarcinoma patient will need surgery when medically stable Physical debility Moderate to severe protein calorie malnutrition At this time patient was seen and examined Home medications reviewed and reordered Consultation for infectious disease, cardiology, and orthopedic surgery initiated For DVT prophylaxis, patient is on Eliquis Prognosis is guarded will follow closely
[2024-01-27 10:27] VITALS: TEMP 98.2
[2024-01-27 10:28] VITALS: BP 94/54
--- NOTE | 2024-01-27 12:29 | P.PN ---
Subjective Progress Note Date: 01/27/24 Principal diagnosis: Reason for follow-up is possible lumbar surgical site infection Patient is a 83-year-old male with a past medical history significant for CVA TIA hypertension hyperlipidemia atrial fibrillation prostate disorder patient is status post lumbar fusion surgery completed on 12/27/2023 has been brought back to the hospital concerning for drainage from his lumbar incision and concerning for surgical site infection.Patient was taken to the OR morning of 01/13/2024 and is status post lumbar wound I&D and cultures. On today's evaluation that is 01/27/2024, patient has been afebrile, patient is breathing comfortably and is currently on 4 L nasal oxygen, patient denies having any significant cough no chest pain, patient denies nausea vomiting or diarrhea and no abdominal pain, back pain is controlled. Patient white count 7.1, creatinine is 1.1, Vanco trough is 21.1 Objective - Vital Signs Vital signs: Vital Signs Temp 98.2 F 01/27/24 08:40 Pulse 62 01/27/24 08:40 Resp 16 01/27/24 08:40 BP 94/54 01/27/24 08:40 Pulse Ox 98 01/27/24 08:40 FiO2 40 01/23/24 16:28 Intake & Output 01/26/24 01/27/24 01/27/24 18:59 06:59 18:59 Intake Total 472 Output Total 750 850 Balance -278 -850 Weight 79 kg Intake: Oral 472 Output: Urine 750 850 Other: Voiding Method External Catheter External Catheter External Catheter # Bowel Movements 1 - Exam GENERAL DESCRIPTION: An elderly male lying in bed in no distress RESPIRATORY SYSTEM: Unlabored breathing , decreased breath sounds at bases HEART: S1 S2 regular rate and rhythm , ABDOMEN: Soft , no tenderness EXTREMITIES: No edema feet - Labs CBC & Chem 7: 01/27/24 06:54 01/27/24 06:54 Labs: Abnormal Lab Results - Last 24 Hours (Table) 01/27/24 01/27/24 Range/Units 06:54 06:54 RBC 3.56 L (4.30-5.90) m/uL Hgb 11.4 L (13.0-17.5) gm/dL Hct 36.1 L (39.0-53.0) % MCV 101.3 H (80.0-100.0) fL Plt Count 141 L (150-450) k/uL Lymphocytes # 0.8 L (1.0-4.8) k/uL Sodium 136 L (137-145) mmol/L Chloride 93 L (98-107) mmol/L Carbon Dioxide 34 H (22-30) mmol/L BUN 82 H (9-20) mg/dL Alkaline Phosphatase 195 H (38-126) U/L Total Protein 5.2 L (6.3-8.2) g/dL Albumin 3.0 L (3.5-5.0) g/dL Assessment and Plan (1) Wound infection after surgery Current Visit: Yes Status: Acute Code(s): T81.49XA - INFECTION FOLLOWING A PROCEDURE, OTHER SURGICAL SITE, INIT SNOMED Code(s): 65352652 (2) Penicillin allergy Current Visit: No Status: Acute Code(s): Z88.0 - ALLERGY STATUS TO PENICILLIN SNOMED Code(s): 43455664 Plan: 1patient presented to hospital with generalized weakness also complaining of discomfort to the lumbar surgical site with minimal drainage concerning for possible lumbar surgical site infection superficial versus deep and will need to cover for the resistant gram-positive as well as gram-negative pathogen. 2patient is status post I&D of his lumbar incision and cultures which are currently growing MRSA as well as group D Enterococcus which is sensitive to penicillin as well as vancomycin 3patient did have improvement in the kidney function with a creatinine down to 1.11 and his white count has been normal no CBC was done today 4- patient is receiving vancomycin pharmacy to dose, Vanco trough is 21 creatinine is 1.1 5plan is for total of 6-week course of antibiotics, discharge vancomycin dose has been entered into the discharge instruction Dictation was produced using [employer] dictation software. please excuse any grammatical, word or spelling errors. Time with Patient: Less than 30
--- NOTE | 2024-01-27 15:09 | P.DS ---
Providers Date of admission: 01/11/24 15:45 Expected date of discharge: 01/27/24 Attending physician: Juan C Beltran Consults: 01/11/24 15:22 Consult Physician Routine Consulting Provider: Carl Alberts Consult Reason/Comments: Pneumonia, infected back incision Do you want consulting provider notified?: Yes 01/11/24 15:26 Consult Physician Routine Consulting Provider: Chucho Ashton Consult Reason/Comments: s/p lumbar fusion Do you want consulting provider notified?: Yes 01/14/24 10:25 Consult Physician Routine Consulting Provider: Davey Schmitt Consult Reason/Comments: increased oxygen demands Do you want consulting provider notified?: Yes Primary care physician: Juan C Beltran [place] [facility] Course: Diagnosis on discharge: Acute exacerbation of systolic congestive heart failure Cardiomyopathy with ejection fraction 25 to 30% on echocardiogram done on 09/07/2023 Worsening shortness of breath and decreased O2 saturation likely related to congestive heart failure Mild erythema and tenderness in the lumbar surgical wound site with wound infection cultures currently growing presumptive MRSA Underlying history of paroxysmal atrial fibrillation Underlying history of hypertension Underlying history of hyperlipidemia Underlying history of colon adenocarcinoma patient will need surgery when medically stable Physical debility Moderate to severe protein calorie malnutrition Hospital course: Nick Vora, is an 83-year-old male currently in rehab at [facility] who was sent to [facility] emergency room, for worsening shortness of breath decreased O2 saturation, hypotension, generalized weakness and erythema skin breakdown or from back surgical wound. He was evaluated in the emergency room vital examination on presentation revealed a temperature of 98.1 pulse 101 respiration 19 blood pressure 116/59 pulse ox 90% on 5 L nasal cannula Laboratory data revealed a white blood count of 8.9 hemoglobin 11.6 platelet count 138 BUN 29 creatinine 0.97 troponin 0.012 BNP 1470 Testing in the emergency room revealed EKG revealed sinus rhythm with first- degree AV block, CT scan of the lumbar spine revealed evidence of recent fusion L1-L5. Chest x-ray revealed findings suggestive of congestive heart failure, infiltrates of other etiology not excluded. Patient was admitted to medical floor for further evaluation and treatment Past medical history is significant for history of hypertension, history of hyperlipidemia, history of paroxysmal atrial fibrillation, history of benign prostatic hypertrophy, history of decreased hearing, history of invasive colonic adenocarcinoma patient will need surgical intervention in the near future after he is medically stable, history of recent back surgery with lumbar fusion. On review of systems patient is alert and oriented x 3 in no apparent distress there is no fever or chills no headache or dizziness no chest pain he has some shortness of breath with any activity there is no cough no nausea or vomiting no abdominal pain no diarrhea no constipation no blood in the stools no burning with urination no frequency or urgency and no hematuria. On 01/13/2024, patient was seen and examined on the medical floor he is alert and oriented in no apparent distress, he underwent lumbar wounds I&D today with Dr. Ashton, there is no fever or chills no headache or dizziness no chest pain no shortness of breath no cough no nausea or vomiting no abdominal pain no diarrhea and no urinary symptoms white blood count is 6.3 hemoglobin 11.3 platelet count 97 BUN 31 creatinine 1.03 On 01/14/2024 patient's alert and oriented. Increased oxygen demands. Will consult pulmonary services infectious disease, cardiology, orthopedic services and pulmonary services have all been consulted. Patient remains on Maxipime and Comycin. Patient has been transitioned to p.o. Lasix per cardiology. Current vital signs temp 98.0, heart rate 91, respiratory rate 16, blood pressure 92/54 with a pulse ox of 94% on 13 L high flow On 01/15/2024 patient is alert and oriented x 3. Cultures coming back presumptive MRSA. Patient remains on vancomycin and cefepime. Infectious disease, pulmonary, cardiology and orthopedic services are following. Current vital signs temp 97.3, heart rate 85, respiratory rate 20, blood pressure 132/57 with a pulse ox of 92% on 13 L high flow. Patient did receive IV Lasix yesterday. Patient denies chest pain or shortness of breath. Patient denies nausea vomiting or diarrhea. Patient denies any urinary burning or frequency. On 01/16/2024 patient was seen and examined on the medical floor he is alert and oriented x 3 in no apparent distress there is no fever or chills no headache or dizziness no chest pain no shortness of breath no cough no nausea or vomiting no abdominal pain no diarrhea, he is complaining of constipation no blood in the stools no burning with urination no frequency or urgency and no hematuria. On 01/17/2024 patient is alert and oriented x 3. Patient remains on IV vancomycin. Current vital signs temp 97.6, heart 72, respiratory rate 18, blood pressure 98/52 with a pulse ox of 91% on 9 L. Patient denies chest pain or shortness of breath. Patient denies nausea vomiting or diarrhea. Patient denies any urinary burning or frequency. On 01/18/2024 patient was seen and examined on the medical floor, he is alert and oriented x 3 in no apparent distress he is maintained on Airvo FiO2 62 % temperature is 98 pulse 91 respiration 18 blood pressure 108/56 pulse ox 94% he is complaining of generalized weakness and constipation, otherwise he denies any complaints there is no fever or chills no headache or dizziness no chest pain no shortness of breath no cough no nausea or vomiting no abdominal pain no diarrhea and no urinary symptoms, white blood count is 5.9 hemoglobin 11.2 platelet count 146, sodium 134 potassium 3.4 chloride 93 BUN 58 creatinine 1.36 he remains on I V antibiotic vancomycin. On 01/19/2024 patient is alert and oriented 3 resting comfortably in bed. Patient remains on airvo for oxygen support.Patient remains on IV vancomycin. Creatinine 1.37 bun 64 Potassium 3.3 will replace per protocol. Patient denies chest pain or shortness breath. Patient denies nausea vomiting or diarrhea. Patient denies any urinary burning or frequency. On 01/20/2024 patient was seen and examined on the medical floor he is alert and oriented x 3 in no apparent distress, he is still maintained on high flow oxygen via Airvo, there is no fever or chills no headache or dizziness no chest pain no shortness of breath no cough no nausea or vomiting no abdominal pain no diarrhea, he is complaining of constipation no blood in the stools no burning with urination no frequency or urgency and no hematuria. pulmonary consult following. On 01/21/2024 patient is alert and oriented x 3 patient remains on high flow oxygen via Airvo. Patient denies chest pain or shortness of breath. Patient denies nausea vomiting or diarrhea. Patient denies any urinary burning or frequency. Current vital signs temp 98.2, heart rate 104, respiratory rate 22, blood pressure 116/58 with a pulse ox of 92% on Airvo 62%. Creatinine 1.26. Patient remains on IV Vanco. Patient denies chest pain or shortness of breath. Patient denies nausea vomiting or diarrhea. Patient denies any urinary burning or frequency On 01/22/2024 patient is alert and oriented x 3. Current vital signs temp 97.0, heart rate 95, respiratory rate 18, blood pressure 108/55 with a pulse ox of 96% on Airvo 40%. Patient denies chest pain or shortness of breath. Patient denies nausea vomiting or diarrhea. Patient denies any urinary burning or frequency. Potassium low at 3.1 will replace per protocol. Patient remains on IV vancomycin. On 01/23/2024 patient was seen and examined on the medical floor he is alert and oriented x 3 in no apparent distress there is no fever or chills no headache or dizziness no chest pain he is still having shortness of breath with any activity, he is maintained on high flow oxygen via Airvo, he has occasional cough no palpitation, no nausea or vomiting no abdominal pain no diarrhea no urinary symptoms On 01/24/2024 patient is alert and oriented x 3. Patient is making improvement currently down to 4 L nasal cannula. Patient remains on IV vancomycin. COVID- 19 was negative. Patient denies chest pain or shortness of breath. Patient denies nausea vomiting or diarrhea. Patient denies any urinary burning or frequency. PT OT services are consulted. Discharge planning back to [facility] when medically stable. On 01/25/2024 patient was seen and examined on the medical floor he is alert and oriented x 3 in no apparent distress there is no fever or chills no headache or dizziness no chest pain no shortness of breath no cough no nausea or vomiting no diarrhea no blood in the stools no burning with urination no frequency or urgency and no hematuria. Oxygen requirements are down to 4 L/min, will continue to monitor if improving possible transfer to [facility] on Saturday. On 01/26/2024 patient is alert and oriented x 3. Patient continues to improve gradually oxygen down to 3 L. Patient denies chest pain or shortness of breath. Patient denies nausea vomiting or diarrhea. Per ID patient will need 6 weeks of IV vancomycin discharge planning back to [facility] facility [facility]. Patient denies chest pain or shortness of breath. Patient denies nausea vomiting or diarrhea. Patient denies any urinary burning or frequency. On 01/27/2024 patient was seen and examined on the medical floor, he is alert and oriented x 3 in no apparent distress, there is no fever or chills no headache or dizziness no chest pain no shortness of breath no cough, no nausea or vomiting no abdominal pain no diarrhea and no urinary symptoms, temperature 97.8 pulse 83 respiration 16 blood pressure 100/54 pulse ox 95% on 4 L nasal cannula, white blood count 7.1 hemoglobin 11.4 platelet count 141 BUN 82 creatinine 1.1. Per recommendation of infectious disease, patient will need a total of 6 weeks of IV vancomycin, consultation for PICC line placement was initiated. Plan is to return to [facility] when ready. Patient Condition at Discharge: Poor Plan - Discharge Summary Discharge Rx Participant: No New Discharge Prescriptions: New Lactulose [Cephulac] 20 gm PO TID ml traMADol HCl [Ultram] 50 mg PO Q6H PRN tab PRN Reason: Pain Control Vancomycin HCl in 5 % Dextrose [Vancomycin 1.25 Gram/250Ml-D5w] 1.25 gm IV Q48H #20 each Apixaban [Eliquis] 5 mg PO BID tab Furosemide [Lasix] 40 mg PO BID 30 Days #60 tablet Metoprolol Succinate (ER) [Toprol XL] 12.5 mg PO DAILY tab Vancomycin 1,250 mg IVPB Q48H each Continue Sertraline HCl [Zoloft] 200 mg PO DAILY@0800 guaiFENesin SYRUP 100MG/5ML [Robitussin] 200 mg PO Q4H PRN PRN Reason: Congestion Acetaminophen Tab [Tylenol] 650 mg PO Q6HR tab Sennosides/Docusate Sodium [Senna Plus 8.6-50 mg Tablet] 1 tab PO BID@0800,1700 Ensure Enlive 237 ml PO TID@0800,1200,1700 Ipratropium-Albuterol Nebulize [Duoneb 0.5 mg-3 mg/3 ml Soln] 3 ml INHALATION RT-Q6H Digoxin [Lanoxin] 125 mcg PO DAILY@0600 Temazepam [Restoril] 7.5 mg PO HS@2100 Ipratropium-Albuterol Nebulize [Duoneb 0.5 mg-3 mg/3 ml Soln] 3 ml INHALATION RT-Q2H PRN each PRN Reason: Shortness Of Breath Or Wheezing bisacodyL [Dulcolax] 10 mg RECTAL DAILY PRN PRN Reason: Constipation Midodrine [ProAmatine] 5 mg PO AC-TID PRN PRN Reason: SBP<90 Gabapentin [Neurontin] 300 mg PO TID@0800,1200,1700 Amiodarone [Cordarone] 200 mg PO BID@0800,1700 Dapagliflozin Propanediol [Farxiga] 10 mg PO DAILY@0800 Cyclobenzaprine [Flexeril] 5 mg PO Q8H PRN PRN Reason: Muscle Spasm Discontinued Magnesium Hydroxide [Milk of Magnesia Concentrate] 7,200 mg PO DIRECTED PRN PRN Reason: 2 days no bm Apixaban [Eliquis] 2.5 mg PO BID@0800,1700 Na Phos,M-B/Na Phos,Di-Ba [Fleet Adult] 133 ml RECTAL DAILY PRN PRN Reason: Constipation Discharge Medication List Sertraline HCl [Zoloft] 200 mg PO DAILY@0800 10/30/13 [History] Temazepam [Restoril] 7.5 mg PO HS@2100 12/25/23 [History] guaiFENesin SYRUP 100MG/5ML [Robitussin] 200 mg PO Q4H PRN 12/25/23 [History] Acetaminophen Tab [Tylenol] 650 mg PO Q6HR tab 01/03/24 [Rx] Ipratropium-Albuterol Nebulize [Duoneb 0.5 mg-3 mg/3 ml Soln] 3 ml INHALATION RT-Q2H PRN each 01/03/24 [Rx] Amiodarone [Cordarone] 200 mg PO BID@0800,1700 01/11/24 [History] Cyclobenzaprine [Flexeril] 5 mg PO Q8H PRN 01/11/24 [History] Dapagliflozin Propanediol [Farxiga] 10 mg PO DAILY@0800 01/11/24 [History] Digoxin [Lanoxin] 125 mcg PO DAILY@0600 01/11/24 [History] Ensure Enlive 237 ml PO TID@0800,1200,1700 01/11/24 [History] Gabapentin [Neurontin] 300 mg PO TID@0800,1200,1700 01/11/24 [History] Ipratropium-Albuterol Nebulize [Duoneb 0.5 mg-3 mg/3 ml Soln] 3 ml INHALATION RT-Q6H 01/11/24 [History] Midodrine [ProAmatine] 5 mg PO AC-TID PRN 01/11/24 [History] Sennosides/Docusate Sodium [Senna Plus 8.6-50 mg Tablet] 1 tab PO BID@0800,1700 01/11/24 [History] bisacodyL [Dulcolax] 10 mg RECTAL DAILY PRN 01/11/24 [History] Apixaban [Eliquis] 5 mg PO BID tab 01/27/24 [Rx] Furosemide [Lasix] 40 mg PO BID 30 Days #60 tablet 01/27/24 [Rx] Lactulose [Cephulac] 20 gm PO TID ml 01/27/24 [Rx] Metoprolol Succinate (ER) [Toprol XL] 12.5 mg PO DAILY tab 01/27/24 [Rx] Vancomycin 1,250 mg IVPB Q48H each 01/27/24 [Rx] Vancomycin HCl in 5 % Dextrose [Vancomycin 1.25 Gram/250Ml-D5w] 1.25 gm IV Q48H #20 each 01/27/24 [Rx] traMADol HCl [Ultram] 50 mg PO Q6H PRN tab 01/27/24 [Rx] Follow up Appointment(s)/Referral(s): Chucho Ashton DO [Doctor of Osteopathic Medicine] - 10 Days Juan C Beltran MD [Primary Care Provider] - 1-2 days
--- NOTE | 2024-01-27 16:05 | P.PN ---
Subjective Progress Note Date: 01/27/24 84-year-old male patient admitted back to the hospital on 01/12/2024 from [facility] following a distance of a surgical incision to the lumbar spine. The wound edges were not approximated and pulling away from the incision. There was also mild to moderate amount of serous drainage identified for that reason the patient was brought into the hospital. The patient is status post open reduction to fixation of an L2-L3 with minimal invasive stabilization of L1 S1 and L2 L4 laminectomy. The patient underwent incision and drainage and the patient is currently on a combination of cefepime and vancomycin. Cultures are still negative for now. The patient is hemodynamically stable. During this current admission, the patient had progressive worsening in his oxygen requirements and the patient is currently on 11 L/min nasal cannula and for that reason the pulmonary cavitation was requested. I ordered a stat chest x-ray and this was completed and the patient has interstitial edema and bilateral pleural effusion right more than left. He has a weak cough. No reported aspiration. The patient has pulm vessel congestion/CHF. The patient is currently on oral Lasix. Blood work shows a white cell count of 7.9 with a hemoglobin 10.6 and a platelet count of 114. BUN 32 with a creatinine of 1.3 current serum bicarb is at 37 and sodium levels at 136. Procalcitonin level is at 0.17. He has a Mulligan catheter in place and is producing adequate amount of urine output. Fluid balance has been -2 L over the past 24 hours. On 01/15/2024, the patient is stableWithout any interval worsening shortness of breath. The patient is currently on 10 L of oxygen by nasal cannula with a pulse ox of 95%. Using incentive spirometer. He was given Lasix yesterday and the patient produced adequate urine output. He did end up pulling his Mulligan catheter and he currently has a condom cath and will monitoring his renal function and his urine output. Creatinine from today is at 1.21. No other complaints otherwise for now. He remains on IV vancomycin as the patient's wound culture was positive for MRSA. On 01/16/2024, the patient is being seen for a follow-up. The patient is calm and comfortable. There has been interval improvement the patient's oxygenation and the patient is currently down to 7 L of oxygen by nasal cannula. He is using incentive spirometer. He was given Lasix yesterday and the net fluid balance is -1.5 L over the past 24 hours. Creatinine stable at 1.24 with a BUN of 38. Serum bicarb is at 35. Sodium levels at 133. WBC count is 5.9 with a hemoglobin of 11.3. The patient remains on vancomycin regarding wound infection. No other new complaints otherwise for now. Remains in atrial fibrillation. Remains on anticoagulation with Eliquis. Remains on metoprolol 12.5 mg p.o. daily. Rest of the medications are essentially unchanged. Follow- up chest x-ray from today continues to show some atelectatic changes in lung bases bilaterally. Findings are essentially stable On 01/17/2024, the patient is being seen for a follow-up. The patient is currently hypoxic on 10 L of oxygen by nasal cannula. Pulse ox in the mid 80s. Based on that, the patient was placed on Airvo at 40 L with an FiO2 of 60%. A repeat chest x-ray was also requested and this was reviewed. The chest x-ray from today showing stable cardiomegaly, pulm vessel congestion, small bilateral pleural effusions and overall chest x-ray finding is consistent with CHF. There is some atelectatic changes in the lung bases bilaterally. The white cell count is 6.2 with a heme of 10.7 and a platelet count of 134. BUN is 43 with a creatinine of 1.34 and the creatinine remains stable. Sodium level is 131. Potassium level is at 3.7. The patient remains on IV vancomycin. The patient remains on Lasix 40 mg p.o. daily. Remains on anticoagulation with Eliquis. Remains on DuoNeb nebulizers [id number] and a combination of metoprolol XL 12.5 mg p.o. daily and amiodarone 12 mg p.o. daily. On 01/18/2024, the patient is being seen for a follow-up. He remains on oxygen Airvo at 40 L with an FiO2 of 60%. Pulse ox in the order of 95%. Not much cooperative with his incentive spirometer. He remains on IV Lasix. The patient is in a negative fluid balance. The BUN is at 58 with a creatinine of 1.36 and a sodium levels at 134 and a potassium level is at 3.4. Serum bicarbonate 38. The white cell count of 5.9 with a hemoglobin 11.2 and a platelet count of 146. The patient remains on DuoNeb nebulized treatments [id number]. The patient remains on IV vancomycin. Remains on anticoagulation with Eliquis 5 mg p.o. twice a day. IV Lasix 40 mg every 12 hours. On 01/19/2024, the patient is being seen for a follow-up. Remains on high flow Airvo oxygen and the patient remains on 40 L and FiO2 of 60%. The flow has been somewhat reduced compared to yesterday. Current pulse ox is in the order of 91 to 92%. Continues to receive diuretics and the patient is on the IV Lasix. Fluid balance is -1 L over the past 24 hours as the patient receiving 40 mg IV Lasix every 12 hours. Barely using his incentive spirometer. The BUN is 64 with a creatinine of 1.37. Electrolytes are all stable. Potassium level is down to 3.3. Serum bicarb is at 36. White cell count is at 6 with a hemoglobin of 11.5 and a platelet count of 145. Vancomycin trough was high at 31.7 dropped down to 29. The patient is seen today January 20, 2024 in follow-up on the regular medical floor. He is currently sitting up in bed. Awake and alert in no acute distress. He is still requiring Airvo high flow oxygen at 40 L and 50% FiO2. Chest x-ray revealed hypoventilatory changes with similar patchy bibasilar opacities and trace left pleural effusion. Wound culture positive for MRSA and Enterococcus faecalis. White count 7.0. Hemoglobin 11.9. Platelets 167. Sodium 137. Potassium 3.2. Bicarb 34. BUN 73. Creatinine 1.37. Glucose 263. Continued on vancomycin. Remains on bronchodilators. Anticoagulated with Eliquis. Remains on IV diuretics. Currently in a -1.2 L balance. The patient is seen today January 21, 2024 in follow-up on the regular medical floor. He is awake and alert in no acute distress. He is sitting up in bed. He remains on Airvo high flow oxygen at 40 L and 50% FiO2. Maintaining O2 saturations in the low to mid 90s. He is afebrile. Hemodynamically stable. Wound culture positive for MRSA and Enterococcus faecalis. Creatinine 1.26. Random vancomycin level 19.9. He remains on vancomycin. Remains on bronchodilators. Anticoagulated with Eliquis. Remains on IV diuretics. Remains in a negative balance. The patient is seen today January 22, 2024 in follow-up on the regular medical floor. He is currently sitting up in bed. Awake and alert in no acute distress. Still requiring Airvo high flow oxygen at 40 L and 40% FiO2. He remains on DuoNeb inhalations. Antibiotics in the form of vancomycin. He is continued on IV diuretics. Anticoagulated with Eliquis. Wound culture was positive for MRSA and Enterococcus faecalis. White count 7.1. Hemoglobin 11.3. Platelets 164. Sodium 134. Potassium 3.1. Bicarb 39. BUN 79. Creatinine 1.32. Random vancomycin 22.4. The patient is seen today January 23, 2024 in follow-up on the selective care unit. He is awake and alert in no acute distress. Sitting up in bed having lunch. Denies any worsening shortness of breath, cough or congestion. He remains on Airvo high flow oxygen at 40 L and 40% FiO2. Wound culture positive for MRSA and Enterococcus faecalis. White count 7.8. Hemoglobin 11.7. Platelets 159. Sodium 135. Potassium 3.3. Bicarb 40. BUN 74. Creatinine 1.2 6. He remains on bronchodilators. Continued on IV diuretics. Antibiotics in the form of vancomycin. Anticoagulated with Eliquis. The patient is seen today January 24, 2024 in follow-up on the selective care unit. He is currently sitting up in bed. Awake and alert in no acute distress. Denies any worsening shortness of breath, cough or congestion. States he is breathing better today compared to yesterday. Maintaining good O2 saturations in the mid 90s on 4 L/min per nasal cannula. He is afebrile. Hemodynamically stable. Wound cultures positive for MRSA, Enterococcus faecalis. He remains on vancomycin. Continued on bronchodilators. Anticoagulated with Eliquis. Remains on IV diuretics. Currently in a -1.9 L balance. Creatinine 1.25. COVID-19 screen negative. The patient is seen today January 25, 2024 in follow-up on the selective care unit. He is sitting up having lunch. Awake and alert in no acute distress. Denies any worsening shortness of breath, cough or congestion. He is maintaining good O2 saturations in the 90s on 4 L/min per nasal cannula. Wound cultures are positive for MRSA and Enterococcus faecalis. He is continued on vancomycin. Continued on bronchodilators. Remains on IV diuretics. Eliquis for anticoagulation. White count 7.8. Hemoglobin 12.7. Platelets 136. Sodium 135. Potassium 4.0. Bicarb 37. BUN 81. Creatinine 1.11. The patient is seen today January 26, 2024 in follow-up on the selective care unit. He is currently resting in bed. Awake and alert in no acute distress. Denies any worsening shortness of breath, cough or congestion. Maintaining good O2 saturation in the 90s on 4 L/min per nasal cannula. He is still having some back discomfort. He remains on vancomycin. Anticoagulated with Eliquis. Continued on IV diuretics. Continued on bronchodilators. The patient is seen today January 27, 2024 in follow-up on the selective care unit. He is awake and alert in no acute distress. He denies any worsening haile rtness of breath, cough or congestion. He is maintaining O2 saturation in the 90s on 4 L/min per nasal cannula. He is anticoagulated with Eliquis. Continued on bronchodilators. Remains on vancomycin. White count 7.1. Hemoglobin 11.4. Platelets 141. Sodium 136. Potassium 3.6. Bicarb 34. BUN 82. Creatinine 1.11. Objective - Vital Signs Vital signs: Vital Signs Temp 98.2 F 01/27/24 08:40 Pulse 74 01/27/24 15:29 Resp 16 01/27/24 08:40 BP 94/54 01/27/24 08:40 Pulse Ox 98 01/27/24 08:40 FiO2 40 01/23/24 16:28 Intake & Output 01/26/24 01/27/24 01/27/24 18:59 06:59 18:59 Intake Total 472 Output Total 750 850 850 Balance -777 -577 -662 Weight 79 kg Intake: Oral 472 Output: Urine 750 850 850 Other: Voiding Method External Catheter External Catheter External Catheter # Bowel Movements 1 - Exam GENERAL EXAM: Alert, 83-year-old male, on 4 L/min per nasal cannula, comfortable in no apparent distress. HEAD: Normocephalic. EYES: Normal reaction of pupils, equal size. NOSE: Clear with pink turbinates. THROAT: No erythema or exudates. NECK: No masses, no JVD. CHEST: No chest wall deformity. LUNGS: Equal air entry with crackles in the bilateral bases. CVS: S1 and S2 normal with no audible murmur, regular rhythm. ABDOMEN: No hepatosplenomegaly, normal bowel sounds, no guarding or rigidity. SPINE: No scoliosis or deformity. Dressing dry and intact. SKIN: No rashes CENTRAL NERVOUS SYSTEM: No focal deficits, tone is normal in all 4 extremities. EXTREMITIES: There is 1-2+ peripheral edema. No clubbing, no cyanosis. Peripheral pulses are intact. - Labs CBC & Chem 7: 01/27/24 06:54 01/27/24 06:54 Labs: Abnormal Lab Results - Last 24 Hours (Table) 01/27/24 01/27/24 Range/Units 06:54 06:54 RBC 3.56 L (4.30-5.90) m/uL Hgb 11.4 L (13.0-17.5) gm/dL Hct 36.1 L (39.0-53.0) % MCV 101.3 H (80.0-100.0) fL Plt Count 141 L (150-450) k/uL Lymphocytes # 0.8 L (1.0-4.8) k/uL Sodium 136 L (137-145) mmol/L Chloride 93 L (98-107) mmol/L Carbon Dioxide 34 H (22-30) mmol/L BUN 82 H (9-20) mg/dL Alkaline Phosphatase 195 H (38-126) U/L Total Protein 5.2 L (6.3-8.2) g/dL Albumin 3.0 L (3.5-5.0) g/dL Assessment and Plan Assessment: Acute hypoxic respiratory failure secondary to atelectatic changes in the lung bases in addition to CHF and development of bilateral pleural effusion right more than left. Pneumonia is doubtful and the patient has been appropriately covered with vancomycin. Pulmonary embolism is doubtful as the patient is on anticoagulation with Eliquis. Ultrasound of the chest was also completed and there is no sizable pleural effusion. Responding to diuretics. Follow-up chest x-ray shows atelectatic changes, pulmonary vasculature congestion and cardiomegaly. Improved. Currently on 4 L nasal cannula. Fall with fracture to the spine, status post open treatment L2-3 for hypere xtension fracture, L1-L4 posterior lateral fusion back on December 27, 2023. Dehiscence of lumbar incisions with suspected infection the patient has undergone an incision and drainage on January 13, 2024. Lumbar wound dehiscence due to pressure ulceration, cultures were positive for MRSA and Enterococcus faecali. Currently on vancomycin. Acute kidney injury and the creatinine is stable for now and the patient is producing good urine output while being on Lasix. Chronic atrial fibrillation anticoagulated with Eliquis Chronic systolic heart failure With an ejection fraction 25 to 30% Moderate to severe pulmonary hypertension History of mild coronary artery disease COPD, currently inactive and stable [facility] History of CVA/TIA History of hearing disorder Hyperlipidemia Former smoker Poor functional performance based on the above-mentioned multiple comorbidities, and the patient has generalized motor weakness in all 4 extremities Plan: The patient was seen and evaluated Medications and labs reviewed Stable on 4 L nasal cannula Plan is for 6 weeks of vancomycin To return to [facility] today I have personally seen and examined the patient, performed the documentation and the assessment and plan as written. Number of minutes spent on the visit: 10 Dictation was produced using [employer] dictation software. Please excuse any grammatical, word or spelling errors.
[2024-01-27 18:07] VITALS: PULSE 62
== END 2024-01-27 18:10 | DRG 856 ==
LOC: EC 11:31 → 3SCARD 15:45
PROVIDERS: ADMIT Internal Medicine; ATTEND Internal Medicine
PROC: 05HB33Z Insertion of Infusion Device into Right Basilic Vein, Percutaneous Approach (ICD-10-PCS; 2024-01-11)
PROC: 0JB70ZZ Excision of Back Subcutaneous Tissue and Fascia, Open Approach (ICD-10-PCS; principal; 2024-01-13 07:30)
DX: T81.41XA Infection following a procedure, superficial incisional surgical site, initial encounter (principal); E43 Unspecified severe protein-calorie malnutrition; J96.01 Acute respiratory failure with hypoxia; I50.23 Acute on chronic systolic (congestive) heart failure; J18.9 Pneumonia, unspecified organism; T81.31XA Disruption of external operation (surgical) wound, not elsewhere classified, initial encounter; I42.9 Cardiomyopathy, unspecified; C18.9 Malignant neoplasm of colon, unspecified; N17.9 Acute kidney failure, unspecified; I48.19 Other persistent atrial fibrillation; J44.0 Chronic obstructive pulmonary disease with (acute) lower respiratory infection; Y84.8 Other medical procedures as the cause of abnormal reaction of the patient, or of later complication, without mention of misadventure at the time of the procedure; R53.81 Other malaise; E78.5 Hyperlipidemia, unspecified; Z88.0 Allergy status to penicillin; I27.20 Pulmonary hypertension, unspecified; Z68.22 Body mass index [BMI] 22.0-22.9, adult; M19.90 Unspecified osteoarthritis, unspecified site; D69.6 Thrombocytopenia, unspecified; I25.10 Atherosclerotic heart disease of native coronary artery without angina pectoris; Z87.891 Personal history of nicotine dependence; Z85.038 Personal history of other malignant neoplasm of large intestine; Z79.01 Long term (current) use of anticoagulants; B95.62 Methicillin resistant Staphylococcus aureus infection as the cause of diseases classified elsewhere; F41.9 Anxiety disorder, unspecified; L89.149 Pressure ulcer of left lower back, unspecified stage; L89.139 Pressure ulcer of right lower back, unspecified stage; B95.2 Enterococcus as the cause of diseases classified elsewhere; H91.90 Unspecified hearing loss, unspecified ear; I11.0 Hypertensive heart disease with heart failure; I44.30 Unspecified atrioventricular block; N40.0 Benign prostatic hyperplasia without lower urinary tract symptoms; Z79.84 Long term (current) use of oral hypoglycemic drugs; Z79.899 Other long term (current) drug therapy; Z86.73 Personal history of transient ischemic attack (TIA), and cerebral infarction without residual deficits; Z87.442 Personal history of urinary calculi; Z96.653 Presence of artificial knee joint, bilateral; Z98.1 Arthrodesis status; Z88.5 Allergy status to narcotic agent; I48.0 Paroxysmal atrial fibrillation; I44.0 Atrioventricular block, first degree; Z98.42 Cataract extraction status, left eye; Z98.41 Cataract extraction status, right eye; Z11.52 Encounter for screening for COVID-19
CPT/HCPCS: 36415; 36573; 51702; 71045; 71046; 72131; 76604; 80053; 80202; 81003; 82565; 83605; 83735; 83880; 84145; 84484; 85025; 85610; 85652; 85730; 86140; 87040; 87070; 87075; 87077; 87102; 87186; 87205; 87635; 93005; 94640; 94760; 96374; 99285

== ENCOUNTER → 2024-02-05 | Outpatient (CLI) | payer MEDICARE ==
--- NOTE | 2024-02-05 10:33 | XR ---
EXAMINATION TYPE: XR lumbar spine 2 or 3V DATE OF EXAM: 02/05/2024 CLINICAL HISTORY: Status post lumbar spine postop 3 weeks ago. Pain. TECHNIQUE: Three views of the lumbar spine are submitted. COMPARISON: CT lumbar spine 01/11/2024, 12/27/2023, lumbar spine radiograph 12/27/2023 FINDINGS: There are 5 lumbar type vertebral bodies identified. Redemonstration of postsurgical changes with diana ateral pedicular screws and rods involving L1, L2, L3, L5 and S1 vertebral bodies. There is vertebral cement identified involving the L1, L4 and S1 vertebral bodies. Hardware appears intact with stable alignment. Redemonstration of fracture with central compression involving the L3 vertebral body. Stab le alignment of the spine. Multilevel disc space narrowing with endplate sclerosis and anterior osteophytosis. Multilevel facet arthropathy redemonstrated. There are 5 lumbar type vertebral bodies identified. The lumbar spine sh ows satisfactory alignment without evidence of acute fracture or dislocation. Vertebral body heights are within normal limits. The overlying soft tissue appears unremarkable. Atherosclerotic calcificat ion of the aorta. IMPRESSION: 1. Postsurgical changes from L1-S1 redemonstrated. Hardware is intact with stable alignment. 2. Multilevel degenerative disc disease and facet arthropathy. [facility], , 02/05/2024 10:31 AM
== END | disposition home or self-care (01) ==
LOC: RADXRMAIN 10:00
PROVIDERS: ATTEND Orthopaedic Surgery
DX: M51.360 Other intervertebral disc degeneration, lumbar region with discogenic back pain only (principal); M47.816 Spondylosis without myelopathy or radiculopathy, lumbar region
CPT/HCPCS: 72100